=== PATIENT | male | born 1940 | race Caucasian/White ===

== ENCOUNTER → 2017-09-14 21:59 | Outpatient (CLI) | payer MEDICARE, OTHER, SELFPAY | PROVIDERS: Family Provider Family Medicine; PCP Family Medicine; Visit Provider Nurse Practitioner Family | DX: G47.10 Hypersomnia, unspecified (principal); I25.10 Atherosclerotic heart disease of native coronary artery without angina pectoris; R06.09 Other forms of dyspnea; E78.5 Hyperlipidemia, unspecified; I10 Essential (primary) hypertension; R07.89 Other chest pain | CPT/HCPCS: 95810 ==

== ENCOUNTER → 2017-09-19 06:41 | Outpatient (CLI) | payer MEDICARE, OTHER, SELFPAY ==
--- NOTE | 2017-09-19 06:45 | ECHOD_ITS ---
Reason For Study: DYSPNEA Procedure This was a 2D Doppler, Color Flow transthoracic echocardiogram. The exam was of poor technical quality due to diminished acoustic windows. The study was technically difficult. Contrast injection was performed. Exam performed in department. Left Ventricle Normal LV size. Left ventricular systolic function is normal. The estimated ejection fraction is 65 %. No regional wall motion abnormalities noted. Right Ventricle Normal RV size. Normal systolic function. Atria The left atrium is mildly enlarged. The right atrium is mildly enlarged. No doppler evidence for ASD. Mitral Valve There is no mitral annular calcification. Normal mitral valve. Trivial mitral valve insufficiency. Tricuspid Valve Normal tricuspid valve. Mild tricuspid valve insufficiency. Right ventricular systolic pressure estimated to be 44 mmHg. Aortic Valve Trisinus/trileaflet aortic valve. Mild diffuse aortic valve thickening. Mild focal aortic valve calcification. Pulmonic Valve The pulmonic valve is not well visualized. Trivial pulmonic valve insufficiency. Great Vessels Normal sized aortic root. Pericardium/Pleural No pericardial effusion. Medication Diluted definity 2ml given slow IV push to enhance endocardial definition. MMode/2D Measurements & Calculations LVIDd: 4.2 cm IVSd: 1.1 cm Ao root diam: 3.2 cm LVIDs: 3.2 cm LVPWd: 1.3 cm RVDd: 4.2 cm FS: 25.2 % LAV(MOD-bp): 59.6 ml EDV(MOD-sp4): 87.6 ml EDV(MOD-sp2): 102.0 ml LAV(MOD-bp) Indexed: 26.7 ml/m2 ESV(MOD-sp4): 23.7 ml EF(MOD-sp2): 74.7 % LAV(MOD-sp2): 67.8 ml EF(MOD-sp4): 72.9 % LAV(MOD-sp4): 51.2 ml SV(MOD-sp4): 63.8 ml SV(MOD-sp2): 76.2 ml LA A4 area: 18.8 cm2 RA A4 area: 20.6 cm2 Doppler Measurements & Calculations MV E max eduardo: 77.1 cm/sec Lat Peak E' Eduardo: 8.7 cm/sec Med Peak E' Eduardo: 6.7 cm/sec MV A max eduardo: 87.7 cm/sec E/E' lat: 8.8 E/E' med: 11.5 MV E/A: 0.88 Ao V2 max: 133.0 cm/sec LV V1 max: 119.4 cm/sec TR max eduardo: 319.7 cm/sec Ao max P.1 mmHg LV V1 max P.7 mmHg TR max P.9 mmHg Interpretation Summary The study was technically difficult. Contrast injection was performed. Left ventricular systolic function is normal. The estimated ejection fraction is 65 %. The left atrium is mildly enlarged. The right atrium is mildly enlarged. Trivial mitral valve insufficiency. Mild tricuspid valve insufficiency. Mild diffuse aortic valve thickening. Mild focal aortic valve calcification. Trivial pulmonic valve insufficiency. Right ventricular systolic pressure estimated to be 44 mmHg. Evidence for diastolic dysfunction. Ordering Physician: Cale Keys Referring Physician: GEORGE SONG Performed By: Katelin Degroot RDCS, RVT
--- NOTE | 2017-09-19 12:23 | STRESSREP ---
Stress Test Report Date: 09/19/2017 Procedure: Exercise tolerance test/imaging study Indications: Dyspnea Consent: Per the patient Procedure: The patient exercised on a Erik protocol for 5 minutes and 15 seconds completing Stage I and 2 minutes and 15 seconds of Stage II achieving a peak heart rate of 142 bpm (98 % predicted maximal heart rate) with a peak blood pressure 188/P mmHg and a peak MET capacity of 7 METs. The baseline ECG demonstrated normal sinus rhythm. The peak exercise ECG demonstrated no obvious ECG changes. There was a rare PVC during recovery. The functional capacity was considered average. There was no complaint of chest discomfort during exercise or recovery. The examination was discontinued secondary to dyspnea and lightheadedness. Impression: 1. Technically adequate (percent predicted maximal heart rate greater than 85%) exercise tolerance test 2. Peak exercise ECG with no obvious ECG changes 3. There was a rare PVC during recovery. 4. Nuclear images pending Myocardial perfusion imaging study: Technique: The patient was injected with 14.2 mCi of technetium 99m Cardiolite and subsequently rest SPECT Cardiolite nuclear imaging was obtained in the horizontal long, vertical long, and short axis views. The patient exercised on a Erik protocol for 5 minutes and 15 seconds completing Stage I and 2 minutes and 15 seconds of Stage II achieving a peak heart rate of 142 bpm (98 % predicted maximal heart rate) with a peak blood pressure 188/P mmHg and a peak MET capacity of 7 METs. The patient was injected with 44.8 mCi of technetium 99m Cardiolite and subsequently stress SPECT Cardiolite nuclear imaging was obtained in the horizontal long, vertical long, and short axis views. A gated Cardiolite study at peak stress was obtained. Interpretation: Rest and stress SPECT Cardiolite nuclear imaging status post realignment, normalization, and attenuation correction, demonstrates the appearance of relative uniform tracer uptake and myocardial perfusion appearing within normal limits. There is end systolic thickening and brightening. The gated Cardiolite study demonstrates myocardial thickening and inward wall motion. The reported LVEF is 72 %. Impression: 1. Rest and stress SPECT Cardiolite nuclear imaging demonstrate relative uniform tracer uptake and myocardial perfusion appearing within normal limits. 2. The gated Cardiolite study reports an LVEF of 72%. This note was generated with [employer] software. It may contain incorrect words, spelling, and punctuation that were not noted in checking the note before signing.
--- NOTE | 2017-09-19 12:28 | STRESSREP_ITS ---
Stress Test Report Date: 09/19/2017 Procedure: Exercise tolerance test/imaging study Indications: Dyspnea Consent: Per the patient Procedure: The patient exercised on a Erik protocol for 5 minutes and 15 seconds completing Stage I and 2 minutes and 15 seconds of Stage II achieving a peak heart rate of 142 bpm (98 % predicted maximal heart rate) with a peak blood pressure 188/P mmHg and a peak MET capacity of 7 METs. The baseline ECG demonstrated normal sinus rhythm. The peak exercise ECG demonstrated no obvious ECG changes. There was a rare PVC during recovery. The functional capacity was considered average. There was no complaint of chest discomfort during exercise or recovery. The examination was discontinued secondary to dyspnea and lightheadedness. Impression: 1. Technically adequate (percent predicted maximal heart rate greater than 85% ) exercise tolerance test 2. Peak exercise ECG with no obvious ECG changes 3. There was a rare PVC during recovery. 4. Nuclear images pending Myocardial perfusion imaging study: Technique: The patient was injected with 14.2 mCi of technetium 99m Cardiolite and subsequently rest SPECT Cardiolite nuclear imaging was obtained in the horizontal long, vertical long, and short axis views. The patient exercised on a Erik protocol for 5 minutes and 15 seconds completing Stage I and 2 minutes and 15 seconds of Stage II achieving a peak heart rate of 142 bpm (98 % predicted maximal heart rate) with a peak blood pressure 188/P mmHg and a peak MET capacity of 7 METs. The patient was injected with 44.8 mCi of technetium 99m Cardiolite and subsequently stress SPECT Cardiolite nuclear imaging was obtained in the horizontal long, vertical long, and short axis views. A gated Cardiolite study at peak stress was obtained. Interpretation: Rest and stress SPECT Cardiolite nuclear imaging status post realignment, normalization, and attenuation correction, demonstrates the appearance of relative uniform tracer uptake and myocardial perfusion appearing within normal limits. There is end systolic thickening and brightening. The gated Cardiolite study demonstrates myocardial thickening and inward wall motion. The reported LVEF is 72 %. Impression: 1. Rest and stress SPECT Cardiolite nuclear imaging demonstrate relative uniform tracer uptake and myocardial perfusion appearing within normal limits. 2. The gated Cardiolite study reports an LVEF of 72%. This note was generated with [employer] software. It may contain incorrect words, spelling, and punctuation that were not noted in checking the note before signing.
== END ==
PROVIDERS: Family Provider Family Medicine; PCP Family Medicine; Visit Provider Nurse Practitioner Family
DX: I25.10 Atherosclerotic heart disease of native coronary artery without angina pectoris (principal); R06.09 Other forms of dyspnea; E78.5 Hyperlipidemia, unspecified; I10 Essential (primary) hypertension; R07.89 Other chest pain
CPT/HCPCS: 78452; 93017; 93306; A9500; Q9957; A4216; C8929

== ENCOUNTER → 2017-10-10 23:52 | Outpatient (CLI) | payer MEDICARE, OTHER, SELFPAY | PROVIDERS: Family Provider Family Medicine; PCP Family Medicine; Visit Provider Nurse Practitioner Acute Care | DX: G47.33 Obstructive sleep apnea (adult) (pediatric) (principal) | CPT/HCPCS: 95811 ==

== ENCOUNTER → 2017-11-06 08:55 | Outpatient (CLI) | payer MEDICARE, OTHER, SELFPAY ==
--- NOTE | 2017-11-06 09:23 | RAD_ITS ---
PROCEDURE: Fluoroscopic guided Hip Injection DATE: November 06, 2017. INDICATION: Male, 77 years old. Chronic hip pain. PHYSICIAN: Cb Vaughn M.D. MEDICATIONS: 80 mg of Kenalog and 3 cc of 0.5% Marcaine. 2% Lidocaine administered subcutaneously for local anesthesia. ACCESS SITE: Right hip. NEEDLE: 22-gauge spinal needle. FLUOROSCOPY TIME (if supplied): (30 seconds) minutes/seconds FINDINGS: The risks, benefits, and alternatives to the procedure were explained to the patient. The specific risks of bleeding, infection, and neurovascular injury were detailed and accepted. Witnessed informed consent was obtained. A 22-gauge spinal needle was positioned under radiographic fluoroscopic localization. Approximately 2 cc of azygos 300 instilled for localization purposes. Medication was then injected. The patient tolerated the procedure well without any immediate complications. The patient was placed supine with head elevated and returned to the floor in stable condition. RAD/Inj/Asp Balta Jt Should/Hip/Knee IMPRESSION: 1. Successful fluoroscopic guided hip injection. Electronically Signed: Cb Vaughn MD at 11:05 EDT Tel [phone], Service support ,
--- NOTE | 2017-11-06 09:44 | RAD_ITS ---
PROCEDURE: Fluoroscopic guided Hip Injection DATE: November 06, 2017. INDICATION: Male, 77 years old. Chronic hip pain. PHYSICIAN: Cb Vaughn M.D. MEDICATIONS: 80 mg of Kenalog and 3 cc of 0.5% Marcaine. 2% Lidocaine administered subcutaneously for local anesthesia. ACCESS SITE: Left hip. NEEDLE: 22-gauge spinal needle. FLUOROSCOPY TIME (if supplied): (25 seconds) minutes/seconds FINDINGS: The risks, benefits, and alternatives to the procedure were explained to the patient. The specific risks of bleeding, infection, and neurovascular injury were detailed and accepted. Witnessed informed consent was obtained. A 22-gauge spinal needle was positioned under radiographic fluoroscopic localization. Approximately 2 cc of Isovue-300 instilled for localization purposes. Medication was then injected. The patient tolerated the procedure well without any immediate complications. The patient was placed supine with head elevated and returned to the floor in stable condition. RAD/Inj/Asp Balta Jt Should/Hip/Knee IMPRESSION: 1. Successful fluoroscopic guided hip injection. Electronically Signed: Cb Vaughn MD at 10:59 EDT Tel [phone], Service support ,
== END ==
PROVIDERS: Family Provider Family Medicine; PCP Family Medicine; Visit Provider Orthopaedic Surgery
DX: M25.552 Pain in left hip (principal); M16.0 Bilateral primary osteoarthritis of hip
CPT/HCPCS: 20610; 77002; Q9967

== ENCOUNTER → 2017-11-25 08:47 | Outpatient (CLI) | payer MEDICARE, OTHER, SELFPAY ==
[2017-11-25 10:13] LABS: AST(SGOT) 19 U/L (15-37); Alanine Aminotransfer ALT/SGPT 41 U/L (16-61); Albumin, Serum 3.5 g/dL (3.2-5.0); Alkaline Phosphatase 93 U/L (45-117); Bilirubin, Direct 0.22 mg/dL (0.00-0.30); Cholesterol 151 mg/dL (200); Globulin 4.1 g/dL (2.2-4.2); High Density Lipoprotein 61 mg/dL; Protein, Total 7.6 g/dL (6.4-8.2); Triglycerides 102 mg/dL; Very Low Density Lipoprotein 20 mg/dL (5-40)
== END ==
PROVIDERS: Family Provider Family Medicine; PCP Family Medicine; Visit Provider Nurse Practitioner Family
DX: E78.5 Hyperlipidemia, unspecified (principal); Z79.899 Other long term (current) drug therapy
CPT/HCPCS: 36415; 80061; 80076

== ENCOUNTER → 2017-11-29 15:05 | Outpatient (CLI) | payer MEDICARE, OTHER, SELFPAY ==
--- NOTE | 2017-11-29 15:12 | RAD_ITS ---
STUDY: X-RAY CHEST REASON FOR EXAM: Male, 77 years old. Shortness of breath with cough TECHNIQUE: PA and lateral views of the chest. COMPARISON: 09/19/2014 FINDINGS: The lungs are clear and expanded. There is no demonstrated pleural abnormality. Normal size heart. Normal mediastinum and luke. Normal visualized pulmonary arteries. Normal visualized aortic arch and descending thoracic aorta. Normal visualized thoracic spine. Normal visualized ribs, clavicles, and shoulders. There is no demonstrated abnormality of the visualized soft tissue structures of the upper abdomen. RAD/Chest PA and Lateral IMPRESSION: Normal x-ray examination of the chest. Electronically Signed: Talon Betts MD at 15:52 EDT , Service support ,
== END ==
PROVIDERS: Family Provider Family Medicine; PCP Family Medicine; Visit Provider Physician Assistant Medical
DX: R09.89 Other specified symptoms and signs involving the circulatory and respiratory systems (principal)
CPT/HCPCS: 71046

== ENCOUNTER → 2017-12-08 08:37 | Outpatient (CLI) | payer MEDICARE, OTHER, SELFPAY ==
--- NOTE | 2017-12-08 08:39 | CDU_ITS ---
Reason For Study: Vertigo Rt. Velocities/BP Lt. Velocities/BP Prox CCA 114/16 cm/sec. Prox CCA 127/17 cm/sec. Mid CCA 111/16 cm/sec. Mid CCA 97/15 cm/sec. Dist CCA 94/21 cm/sec. Dist CCA 82/17 cm/sec. Prox ICA 86/15 cm/sec. Prox ICA 78/16 cm/sec. Mid ICA 82/21 cm/sec. Mid ICA 64/19 cm/sec. Dist ICA 72/19 cm/sec. Dist ICA 74/20 cm/sec. Rt. ICA/CCA = 0.77. Lt. ICA/CCA = 0.80. Prox ECA 96/9 cm/sec. Prox ECA 135/11 cm/sec. Rt. Vert. 25/0 cm/sec. Lt. Vert. 50/16 cm/sec. Right Extracranial There is intimal thickening but no significant atherosclerotic plaque noted in the right common carotid artery. There is no significant atherosclerotic plaque noted in the right internal carotid artery. There is no significant atherosclerotic plaque noted in the right external carotid artery. Antegrade flow is noted in the right vertebral artery. Left Extracranial There is intimal thickening but no significant atherosclerotic plaque noted in the left common carotid artery. There is heterogeneous, irregular atherosclerotic plaque noted in the left internal carotid artery. There is no significant atherosclerotic plaque noted in the left external carotid artery. Antegrade flow is noted in the left vertebral artery. Procedure Carotid Duplex [id number]. Exam performed in department. Interpretation Summary No significant atherosclerotic plaque or stenosis noted in the right internal carotid artery. Mild (<50%) stenosis left extracranial internal carotid. Flow within the vertebral arteries is antegrade bilaterally. Ordering Physician: Mallorie Santos Referring Physician: Harvinder Vaughan Performed By: Yesenia Keys, JJ, RVT
== END ==
PROVIDERS: Family Provider Family Medicine; PCP Family Medicine; Visit Provider Physician Assistant Medical
DX: R42 Dizziness and giddiness (principal)
CPT/HCPCS: 93880

== ENCOUNTER → 2017-12-26 08:46 | Outpatient (CLI) | payer MEDICARE, OTHER, SELFPAY ==
--- NOTE | 2017-12-26 21:06 | PCM.TILTTABL ---
- Staff Staff: Rina Ramesh, - - Fabienne Rush - Summary Pre Test Resting HR: 66 - Alert and oriented: Warm and dry Pre Test Resting BP: 168/81 - Alert and oriented: Warm and dry Minimum Test HR: 54 - Unresponsive: Pale and clammy Maximum Test HR: 100 - Alert and oriented: Warm and dry Minimum Test BP: 102/57 - Unresponsive: Pale and clammy Maximum Test BP: 193/87 - Alert and oriented: Warm and dry Reason for Test Termination: Syncope Physician Tilt Table Report - Patient's Physicians Primary Care Physician: Harvinder Vaughan Packaging Sales: Flip Kramer Indications/Diagnosis: Dizziness/lightheadedness Procedure Comments: The patient presented to the tilt table laboratory. He was alert and oriented and warm and dry. The baseline heart rate was 66 bpm with a baseline blood pressure 168/81 mmHg. The cardiac rhythm was sinus rhythm. The patient was placed in the 70? upright tilt table position where he remained for approximately 12 minutes. The patient was initially alert and oriented and warm and dry and subsequently became pale, clammy, and unresponsive. The patient was noted to have a heart rate decreased to 54 bpm with a blood pressure decreased to 102/57 mmHg. The cardiac rhythm remained sinus rhythm with an isolated PVC. The patient was returned to the supine position. In the supine position the patient became alert and oriented and eventually warm and dry. The concluding heart rate was 69 bpm with a concluding blood pressure 160/79 mmHg. The patient remained in sinus rhythm. The patient returned to baseline and was subsequently released from the tilt table laboratory. Summary: 70? upright tilt table study considered positive for reproducible vasovagal/neurocardiogenic (combined cardioinhibitory and vasodepressor) syncope. This note was generated with [employer] software. It may contain incorrect words, spelling, and punctuation that were not noted in checking the note before signing.
[2017-12-26 21:13] VITALS: BP 102/57; BP 168/81; BP 193/87
--- NOTE | 2017-12-26 21:13 | TILTTABLE_ITS ---
- Staff Staff: Rina Ramesh, - - Fabienne Rush - Summary Pre Test Resting HR: 66 - Alert and oriented: Warm and dry Pre Test Resting BP: 168/81 - Alert and oriented: Warm and dry Minimum Test HR: 54 - Unresponsive: Pale and clammy Maximum Test HR: 100 - Alert and oriented: Warm and dry Minimum Test BP: 102/57 - Unresponsive: Pale and clammy Maximum Test BP: 193/87 - Alert and oriented: Warm and dry Reason for Test Termination: Syncope Physician Tilt Table Report - Patient's Physicians Primary Care Physician: Harvinder Vaughan Lead Manufacturing Engineer: Flip Kramer Indications/Diagnosis: Dizziness/lightheadedness Procedure Comments: The patient presented to the tilt table laboratory. He was alert and oriented and warm and dry. The baseline heart rate was 66 bpm with a baseline blood pressure 168/81 mmHg. The cardiac rhythm was sinus rhythm. The patient was placed in the 70? upright tilt table position where he remained for approximately 12 minutes. The patient was initially alert and oriented and warm and dry and subsequently became pale, clammy, and unresponsive. The patient was noted to have a heart rate decreased to 54 bpm with a blood pressure decreased to 102/57 mmHg. The cardiac rhythm remained sinus rhythm with an isolated PVC. The patient was returned to the supine position. In the supine position the patient became alert and oriented and eventually warm and dry. The concluding heart rate was 69 bpm with a concluding blood pressure 160/79 mmHg. The patient remained in sinus rhythm. The patient returned to baseline and was subsequently released from the tilt table laboratory. Summary: 70? upright tilt table study considered positive for reproducible vasovagal/ neurocardiogenic (combined cardioinhibitory and vasodepressor) syncope. This note was generated with [employer]ation software. It may contain incorrect words, spelling, and punctuation that were not noted in checking the note before signing.
== END ==
PROVIDERS: Family Provider Family Medicine; PCP Family Medicine; Visit Provider Physician Assistant Medical
DX: R42 Dizziness and giddiness (principal)
CPT/HCPCS: 93660; J7030; A4216

== ENCOUNTER 2018-02-23 12:38 | Emergency (ER) | payer MEDICARE, OTHER, SELFPAY ==
[2018-02-23 12:39] VITALS: BP 179/73; PULSE 77; RESP 18; TEMP 36.5; O2SAT 98; BMI 28.3
--- NOTE | 2018-02-23 13:04 | RAD_ITS ---
STUDY: X-RAY CHEST REASON FOR EXAM: Male, 77 years old. CP that radiates between shoulder blades. Also c/o neck pain and left side pain. states has sinus congestion as well TECHNIQUE: Single AP portable view of the chest. COMPARISON: None. FINDINGS: The lungs are clear and expanded. There is no demonstrated pleural abnormality. Normal size heart. Normal mediastinum and luke. Normal visualized pulmonary arteries. Normal visualized aortic arch and descending thoracic aorta. There is a dextroscoliosis of the thoracic spine. There is degenerative osteoarthritis of the bilateral shoulders. There is no demonstrated abnormality of the visualized soft tissue structures of the upper abdomen. RAD/Chest 1 View (Portable) IMPRESSION: Degenerative changes, as described above. No demonstrated acute cardiopulmonary process. Electronically Signed: Kay Oconnell MD at 13:37 EDT Tel , Service support ,
--- NOTE | 2018-02-23 13:04 | EKG12_ITS ---
Test Reason : CP Blood Pressure : / mmHG Vent. Rate : 076 BPM Atrial Rate : 076 BPM P-R Int : 160 ms QRS Dur : 092 ms QT Int : 382 ms P-R-T Axes : 054 -03 054 degrees QTc Int : 429 ms Normal sinus rhythm Nonspecific ST abnormality Abnormal ECG Confirmed by WALDEMAR FUNEZ, SHIRLEY ([id number]), associate entertainment editor VICKI MALDONADO ([id number]) on 02/26/2018 2:50:33 PM Referred By: Confirmed By:SHIRLEY MEDEIROS MD
[2018-02-23 13:14] LABS: Absolute Lymphocyte Count 2.04 X10^3/ul (0.83-4.51); Basophil# 0.03 X10^3/uL; Basophil% 0.2 % (0-1); Eosinophil# 0.07 X10^3/uL; Eosinophils% 0.6 % (0-5); Hematocrit 38.4 % (40-54); Hemoglobin 13.2 g/dl (13.0-16.5); Lymphocyte # 2.04 X10^3/ul (4.0); Lymphocyte % 16.2 % (19-41); Mean Corp Hgb Conc 34.4 g/gl (32-36); Mean Corpuscular Volume 93.2 fL (80-94); Mean Platelet Vol. 9.3 fl (6.2-12.0); Monocyte# 1.39 X10^3/uL; Neutrophil # 9.02 X10^3/uL (2.7-7.7); Neutrophil % 71.6 % (47-70); Platelet Count 418 K/mm3 (150-450); RBC Distribution Width CV 12.5 % (11.6-14.6); RBC Distribution Width SD 41.4 fl (35.1-43.9); Red Blood Count 4.12 M/mm3 (4.6-6.2); White Blood Count 12.6 K/mm3 (4.4-11.0)
[2018-02-23 13:15] LABS: POSITIVE COUNT NO; POSITIVE DIFFERENTIAL NO; POSITIVE MORPHOLOGY NO
[2018-02-23] MEDS: Aspirin 81 MG TAB.CHEW 324 MG PO (13:18)
[2018-02-23 13:26] LABS: Anion Gap 8 (5-15); BUN 15 mg/dL (7-18); BUN/Creat Ratio 13.3 RATIO (10-20); Chloride 101 mmol/L (98-107); Creatinine, Serum 1.13 mg/dL (0.70-1.30); EST Glomerular Filtration Rate 67 mL/min (>60); Est Glom Filt Rate - Afr Amer 81 mL/min (>60); Estimated Creatinine Clearance 62.85 ml/min; Glucose 124 mg/dL (74-106); Potassium 3.5 mmol/L (3.5-5.1); Sodium Level 136 mmol/L (136-145)
[2018-02-23 13:38] VITALS: BP 141/72; PULSE 57; RESP 14; O2SAT 98
[2018-02-23 13:56] LABS: D-Dimer Quantitative (DVT/PE) 0.43 FEU/ug/m (0.27-0.49)
--- NOTE | 2018-02-23 14:30 | ED.DCSUM_ITS ---
- ER Visit Summary Date of Service: 02/23/18 Chief Complaint: Chest pain History of Present Illness: The patient is a 77 M history of prior coronary disease one cardiac stent. Hypertension and high cholesterol. Patient states he had a stress test earlier this year which was negative. States last 2-3 days he had constant pain in his chest. Also on his back. Denies any nausea or vomiting. No diarrhea or fever. No prior DVT. He has had a recent travel he and his took a trip on a train. Denies any hemoptysis. No history of DVT or PE. Currently is not on any blood thinners. He denies currently any calf pain. Physical Examination: Male no acute distress. Vital signs are stable afebrile. Signs of hypoxia. H EENT exam unremarkable. Neck nontender. Lungs clear to auscultation bilaterally. Heart regular rate and rhythm no murmur. Chest wall nontender. Abdomen soft nontender. Normal bowel sounds no signs. No pulsatile mass. He is moving all 4 extremities. They are neurovascularly intact. He is equal symmetrical radial pulses. Calves are nontender without edema nor cords. Neurologically is awake alert without focal deficits. Test Results: CBC normal except for white count 12.6. Normal hemoglobin. Lites was unremarkable. Normal gap of a creatinine 1.1. Troponin normal. D-dimer normal. EKG sinus rhythm rate of 76 no acute abnormality no change from September 2014. Chest x-ray shows no acute abnormality normal cardiac silhouette and mediastinum. No signs of a dissection. Emergency Department Course and Treatment: Repeat exam of the patient is are in the room. He is doing well. Both are comfortable with him being discharged to home. Currently he is on an antibiotic and steroids dry which is probably viral and may be causing him the symptoms. Treatment Plan: Discharge and stop the antibiotic and steroids. Disposition: Discharge Impression: Table chest pain of uncertain etiology. Status post viral URI This note was generated with [employer] dictation software. It may contain incorrect words, spelling, and punctuation that were not noted in review of the chart prior to signing ED Disposition - Plan for ED Patient: Chief Complaint: Chest Pain Referrals: Harvinder Vaughan MD [Primary Care Provider] -
--- NOTE | 2018-02-23 14:30 | ED.DEP ---
ED Disposition - Plan for ED Patient: Disposition: Home or Assisted Living Chief Complaint: Chest Pain Instructions: ED Chest Pain Atypical Unkn Cause Referrals: Harvinder Vaughan MD [Primary Care Provider] - As Needed Additional Instructions: Your symptoms may be from the medications they put drawn for your respiratory infection. I think this is more likely a viral infection. You have no signs of pneumonia. I would stop the antibiotic and the prednisone. Talk to your doctor as needed.
[2018-02-23 14:33] VITALS: BP 158/80; PULSE 58; RESP 16; O2SAT 99
== END 2018-02-23 14:39 | disposition home or self-care (01) ==
PROVIDERS: Emergency Provider Emergency Medicine; Family Provider Family Medicine; PCP Family Medicine
DX: R07.9 Chest pain, unspecified (principal); I10 Essential (primary) hypertension; E78.00 Pure hypercholesterolemia, unspecified; I25.10 Atherosclerotic heart disease of native coronary artery without angina pectoris
CPT/HCPCS: 71045; 80048; 84484; 85025; 85379; 93005; 99284; A4216

== ENCOUNTER → 2018-03-22 08:45 | Outpatient (CLI) | payer MEDICARE, OTHER, SELFPAY ==
--- NOTE | 2018-03-22 08:55 | RAD_ITS ---
STUDY: AIR-CONTRAST UPPER GI SERIES WITH SMALL BOWEL FOLLOW-THROUGH EXAMINATION. REASON FOR EXAM: Male, 77 years old. Dysphasia. Nausea and abdominal bloating. FLUOROSCOPY TIME (if supplied): (2:00) minutes/seconds. 29 images were obtained. TECHNIQUE: The patient ingested barium. Multiple images of the esophagus, stomach and duodenum were obtained. COMPARISON: None. FINDINGS: There is a small diverticulum of the midportion of the esophagus most likely representing a traction diverticulum. There is a small sliding hiatal hernia with gastroesophageal reflux. The stomach and duodenum are unremarkable. There is no evidence of ulceration. No mass lesion is seen. A small bowel follow-through examination was obtained. The transit time is normal. The terminal ileum is unremarkable. RAD/Upper GI/w Small Bowel IMPRESSION: Small sliding hiatal hernia with gastroesophageal reflux. 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 Electronically Signed: Cb Vaughn MD at 15:36 EDT Tel [phone], Service support ,
== END ==
PROVIDERS: Family Provider Family Medicine; PCP Family Medicine; Referring Provider Nurse Practitioner Family; Visit Provider Nurse Practitioner Family
DX: R11.0 Nausea (principal); R14.0 Abdominal distension (gaseous)
CPT/HCPCS: 74249

== ENCOUNTER → 2018-06-25 13:55 | Outpatient (CLI) | payer MEDICARE, OTHER, SELFPAY ==
[2018-06-25 13:07] VITALS: BMI 28.8
[2018-06-25 14:30] LABS: Absolute Lymphocyte Count 1.43 X10^3/ul (0.83-4.51); Absolute Neutrophil Count 5.1 X10^3/uL (2.0-7.7); Basophil# 0.06 X10^3/uL; Basophil% 0.8 % (0-1); Eosinophil# 0.17 X10^3/uL; Eosinophils% 2.3 % (0-5); Hematocrit 39.5 % (40-54); Hemoglobin 12.8 g/dl (13.0-16.5); Lymphocyte # 1.43 X10^3/ul (4.0); Lymphocyte % 19.2 % (19-41); Mean Corp Hgb Conc 32.4 g/gl (32-36); Mean Corpuscular Hgb 30.3 pg (27.0-32.0); Mean Corpuscular Volume 93.6 fL (80-94); Mean Platelet Vol. 10.2 fl (6.2-12.0); Monocyte% 9.4 % (0-10); Neutrophil # 5.09 X10^3/uL (2.7-7.7); Neutrophil % 68.2 % (47-70); Platelet Count 308 K/mm3 (150-450); RBC Distribution Width CV 13.2 % (11.6-14.6); RBC Distribution Width SD 45.1 fl (35.1-43.9); Red Blood Count 4.22 M/mm3 (4.6-6.2); White Blood Count 7.5 K/mm3 (4.4-11.0)
[2018-06-25 14:34] LABS: POSITIVE COUNT NO; POSITIVE DIFFERENTIAL NO; POSITIVE MORPHOLOGY NO
[2018-06-25 15:01] LABS: Ferritin 24 ng/mL (26-388); Iron 98 ug/dL (65-175); Iron Binding Capacity,Total 329 ug/dL (250-450)
[2018-06-25 15:20] LABS: Vitamin B12 890 pg/mL (211-911)
[2018-06-28 07:58] LABS: Vitamin D 1,25-Dihydroxy 37.2 pg/mL (19.9-79.3)
== END ==
PROVIDERS: Family Provider Family Medicine; PCP Family Medicine; Visit Provider Nurse Practitioner Acute Care
DX: R06.02 Shortness of breath (principal); R53.83 Other fatigue; E11.9 Type 2 diabetes mellitus without complications
CPT/HCPCS: 82607; 82652; 82728; 83540; 83550; 85025

== ENCOUNTER 2019-11-12 12:59 | Emergency (ER) | payer MEDICARE, OTHER, SELFPAY ==
[2019-09-18 13:52] VITALS: BMI 28.8
[2019-11-12 13:00] VITALS: BP 163/67; PULSE 57; RESP 16; TEMP 36.6; O2SAT 100; BMI 28.8
--- NOTE | 2019-11-12 14:12 | CT_ITS ---
STUDY: CT BRAIN WITHOUT CONTRAST REASON FOR EXAM: Male, 79 years old. NEAR SYNCOPAL EPISODE TODAY RADIATION DOSAGE (If Supplied By Facility): CTDIvol = ( 60.81 ) mGy, DLP = ( 1112.69 ) mGycm TECHNIQUE: Transaxial CT imaging of the brain was performed without administration of intravenous contrast material. Individualized dose optimization techniques were used for this CT. COMPARISON: No relevant priors. FINDINGS: Normal soft tissue structures. Normal calvarium. Normal size ventricles and extra-axial spaces for the patient''s age. Normal white matter tracts of the cerebral hemispheres. Normal basal ganglia and thalami. Normal brainstem. Normal cerebellum. There is no intracranial hemorrhage. There are no findings of an acute ischemic infarction. Normal visualized paranasal sinuses. CT/Brain/Head without Contrast IMPRESSION: Normal unenhanced CT scan of the brain. Electronically Signed: Eze Oviedo MD at 15:25 EDT Tel , Service support ,
--- NOTE | 2019-11-12 14:12 | EKG12_ITS ---
Test Reason : Blood Pressure : / mmHG Vent. Rate : 049 BPM Atrial Rate : 049 BPM P-R Int : 180 ms QRS Dur : 092 ms QT Int : 466 ms P-R-T Axes : 059 -01 041 degrees QTc Int : 420 ms Sinus bradycardia Otherwise normal ECG Confirmed by SHELDON PEÑA ([id number]), assistant film editor NARAYAN ERAZO ([id number]) on 11/19/2019 8:06:26 AM Referred By: COLLETTE Confirmed By:SHELDON PEÑA
[2019-11-12 14:13] VITALS: BP 120/64; BP 137/66; BP 140/66; PULSE 50; PULSE 52; PULSE 57; RESP 16; O2SAT 96
--- NOTE | 2019-11-12 14:16 | ED.DCSUM_ITS ---
- ER Visit Summary Date of Service: 11/12/19 Chief Complaint: Near syncope History of Present Illness: The patient is a 79 M who presents with near syncopal episodes that occurred today. Patient states he was welding in his garage and he started to feel lightheaded. Patient states that he sat on a stool and started to feel better. Patient states he went back to welding. Patient states he felt lightheaded again. Patient states he sat on his stool again but was not improving. Patient states his vision went white. Patient's states that he was having difficulty speaking when he came into the house. Patient admits to some fatigue over the past couple days. Patient admits to some generalized weakness. Patient also admits to some shortness of breath and cough with some white and yellow sputum production. Patient denies any recent fevers. Patient states he also has a history of vasovagal syncope. Physical Examination: Vital signs are stable. Patient is afebrile. Patient is in no acute distress. Oral mucosa is pink and moist. Neck is supple. Trachea is midline. There is no JVD. Heart was regular rate and rhythm. Lungs are clear and equal bilaterally. Abdomen is soft. Bowel sounds are normal. There is no tenderness. Cranial nerves II through XII are intact. There are no focal motor or sensory deficits. Extremities are intact. There is no calf tenderness or edema. Test Results: EKG showed sinus bradycardia with a rate of 49. There are no acute ST or T wave changes. Portable chest x-ray was obtained. There is no acute cardiopulmonary process. CT scan of the brain was obtained. There is no acute intracranial abnormality. These were interpreted by the radiologist and reviewed by myself. CBC, comprehensive metabolic profile, urinalysis, and troponin were obtained were all within normal limits. Emergency Department Course and Treatment: Patient was given IV fluids here. Patient was feeling better on reevaluation. Patient was instructed to get plenty of rest. Patient was instructed to follow-up with his primary care physician in 5 to 7 days. Patient understood and was agreeable with the plan. All questions were answered. Disposition: Discharge home Impression: Near syncope This note was generated with [employer] software. It may contain incorrect words, spelling, and punctuation that were not noted in review of the chart prior to signing ED Disposition - Plan for ED Patient: Disposition: Home or Assisted Living Diagnosis: Near syncope Instructions: ED Near-Fainting Uncertain Cause Referrals: Harvinder Vaughan MD [Primary Care Provider] - 5-7 Days
[2019-11-12 14:36] LABS: Bacteria 0 SEEN /hpf (None Seen); Mucous, Urine 0 SEEN /hpf (<or=2+); Red Blood Cells-Urine 0 SEEN /hpf (0-5); Squamous Epithelial Cells - UA 0 SEEN /hpf (0-5); White Blood Cells 0 SEEN /hpf (0-5)
[2019-11-12 14:38] LABS: Color, Urine Yellow (Yellow); Glucose, Dipstick Normal (Normal); Ketone-Dipstick Negative (Negative); Leukocyte Esterase-Dipstick Negative /ul (Negative); Nitrite-Dipstick Negative (Negative); Occult Blood-Urine Negative /ul (Negative); Protein-Dipstick Negative (Negative); Specific Gravity, Urine 1.005 (1.002-1.030); Urine Bilirubin Dipstick Negative (Negative); Urine Clarity Sl. Cloudy (Clear); Urine Urobilinogen Normal (Normal); Urine pH 6.5 (5.0 - 8.0)
[2019-11-12 14:40] LABS: Absolute Lymphocyte Count 1.09 X10^3/uL (0.83-4.51); Absolute Neutrophil Count 6.9 X10^3/uL (2.0-7.7); Basophil% 1.1 % (0-1); Eosinophil# 0.18 X10^3/uL; Eosinophils% 1.9 % (0-5); Hematocrit 40.8 % (40-54); Hemoglobin 13.4 g/dL (13.0-16.5); Lymphocyte # 1.09 X10^3/ul (4.0); Lymphocyte % 11.8 % (19-41); Mean Corp Hgb Conc 32.8 g/dL (32-36); Mean Corpuscular Hgb 31.3 pg (27.0-32.0); Mean Corpuscular Volume 95.3 fL (80-94); Monocyte# 0.91 X10^3/uL; Monocyte% 9.8 % (0-10); NRBC Flagged by Analyzer 0 % (0-5); Neutrophil # 6.93 X10^3/uL (2.7-7.7); Platelet Count 324 K/mm3 (150-450); RBC Distribution Width CV 12.8 % (11.6-14.6); RBC Distribution Width SD 44.6 fl (35.1-43.9); Red Blood Count 4.28 M/mm3 (4.6-6.2); White Blood Count 9.3 K/mm3 (4.4-11.0)
[2019-11-12 14:54] LABS: ALB/GLOB Ratio 0.8 RATIO (0.9-2.4); AST(SGOT) 17 U/L (15-37); Alanine Aminotransfer ALT/SGPT 29 U/L (16-61); Albumin, Serum 3.4 g/dL (3.2-5.0); Alkaline Phosphatase 118 U/L (45-117); Anion Gap 5 (5-15); BUN 19 mg/dL (7-18); BUN/Creat Ratio 15.8 RATIO (10-20); Calcium,Total 9.1 mg/dL (8.5-10.1); Chloride 106 mmol/L (98-107); EST Glomerular Filtration Rate 62 mL/min (>60); Est Glom Filt Rate - Afr Amer 75 mL/min (>60); Estimated Creatinine Clearance 57.34 ml/min; Glucose 73 mg/dL (74-106); Potassium 4.8 mmol/L (3.5-5.1); Protein, Total 7.4 g/dL (6.4-8.2); Sodium Level 139 mmol/L (136-145)
--- NOTE | 2019-11-12 15:10 | RAD_ITS ---
STUDY: X-RAY CHEST REASON FOR EXAM: Male, 79 years old. DIZZY, SYNCOPAL EVENT, SOB TECHNIQUE: Single AP portable view of the chest. COMPARISON: 02/23/2018 FINDINGS: The lungs are clear and expanded. There is no demonstrated pleural abnormality. Normal size heart. Normal mediastinum and luke. Normal visualized pulmonary arteries. Normal visualized aortic arch and descending thoracic aorta. Normal visualized thoracic spine. Normal visualized ribs, clavicles, and shoulders. There is no demonstrated abnormality of the visualized soft tissue structures of the upper abdomen. RAD/Chest 1 View (Portable) IMPRESSION: Normal x-ray examination of the chest. Electronically Signed: Eze Oviedo MD at 15:24 EDT Tel , Service support ,
[2019-11-12] MEDS: 0.9% Normal Saline 1,000 ML 1000 ML IV (15:56)
[2019-11-12 16:11] VITALS: BP 140/64; PULSE 50; RESP 17; O2SAT 98
[2019-11-12 17:33] VITALS: BP 147/70; PULSE 48; RESP 16; O2SAT 99
== END 2019-11-12 17:35 | disposition home or self-care (01) ==
PROVIDERS: Emergency Provider Emergency Medicine; PCP Family Medicine
DX: R55 Syncope and collapse (principal); M54.2 Cervicalgia; R30.0 Dysuria; R51 Headache; R53.1 Weakness; R05 Cough; R06.00 Dyspnea, unspecified; J34.89 Other specified disorders of nose and nasal sinuses
CPT/HCPCS: 70450; 71045; 80053; 81001; 84484; 85025; 93005; 96360; 99285; J7030; A4216

== ENCOUNTER 2020-01-23 06:13 | Emergency (ER) | payer MEDICARE, OTHER, SELFPAY ==
[2019-11-15 08:30] VITALS: BMI 28.2
[2020-01-23 06:13] VITALS: BP 187/83; PULSE 67; RESP 18; TEMP 37.2; O2SAT 96; BMI 29.3
--- NOTE | 2020-01-23 06:43 | RAD_ITS ---
STUDY: X-RAY - PELVIS REASON FOR EXAM: Male, 79 years old. C/O RT HIP PAIN X SEVERAL DAYS -- NKI -- PATIENT STATES PAIN STARTED DAY AFTER HAVING A EAR ACHE AND SWOLLEN LYMPH NODE IN NECK TECHNIQUE: One view of the pelvis was obtained. COMPARISON: None. FINDINGS: There is a non-specific bowel gas pattern. There are multiple calcified phleboliths. Normal bilateral iliac wings, sacroiliac joints and visualized sacrum. Normal visualized bilateral superior and inferior pubic rami. There are degenerative changes of the pubic symphysis with articular narrowing and sclerosis. Normal ischial tuberosities. The patient is status post right total hip replacement. Normal visualized left femoral head. Normal left acetabulum. There is severe articular joint space narrowing of the left hip. RAD/Pelvis 1 or 2 Views IMPRESSION: Status post right hip replacement. Severe joint space narrowing of the left hip joint. Electronically Signed: Cb Vaughn, at 7:23 EDT , Service support ,
--- NOTE | 2020-01-23 06:43 | RAD_ITS ---
STUDY: X-RAY - RIGHT FEMUR REASON FOR STUDY: Right hip pain for several days, no specific injury. TECHNIQUE: 2 view(s) of the femur. COMPARISON: Radiograph of the pelvis obtained earlier the same day. FINDINGS: There is a right hip arthroplasty with mild periosteal reaction at the lateral aspect of the proximal femoral diaphysis. There is a small enthesophyte at the lesser trochanter. Normal visualized soft tissue structure. RAD/Femur Min 2 Views IMPRESSION: Right hip arthroplasty with mild periosteal reaction at the lateral aspect of the proximal femoral diaphysis. Electronically Signed: Ricarod Montemayor MD at 7:34 EDT Tel , Service support ,
[2020-01-23 06:53] LABS: Color, Urine Yellow (Yellow); Glucose, Dipstick Normal (Normal); Ketone-Dipstick Negative (Negative); Leukocyte Esterase-Dipstick Negative /ul (Negative); Mucous, Urine 0 SEEN /hpf (<or=2+); Nitrite-Dipstick Negative (Negative); Occult Blood-Urine Negative /ul (Negative); Protein-Dipstick Negative (Negative); Red Blood Cells-Urine 0 SEEN /hpf (0-5); Squamous Epithelial Cells - UA 0 SEEN /hpf (0-5); Urine Bilirubin Dipstick Negative (Negative); Urine Clarity Clear (Clear); Urine Urobilinogen Normal (Normal); White Blood Cells 0 SEEN /hpf (0-5)
[2020-01-23] MEDS: morphine 8 MG/ML Syringe 6 MG IM (06:58)
--- NOTE | 2020-01-23 06:58 | ED.VIS.GEN ---
History of Present Illness Chief Complaint: Lower Extremity Injury Informant: Patient Narrative: Patient is a 79-year-old male presenting with atraumatic right hip and lower back pain. Patient has a history of a right total hip arthroplasty as well as some chronic low back pain and sciatica. Patient states he has had pain for the past 4 days. It started when he was working in his garage as he is renovating an old truck. He does crawl around a lot when he is working on his truck. It started first in his knee area and then moved up to his right hip. The pain radiates into his groin is now going up into his back. Patient denies any associated numbness. He is limping when he walks because of pain. He denies any bowel or bladder incontinence. He notes he has been having some difficulty with urination over the past week. He has been having associated hesitancy and sometimes has dribbling without a strong stream. He does have a history of BPH and is on Flomax for this. He currently denies any abdominal pain. He denies any vomiting or diarrhea. He denies any leg swelling. Denies any chest pain or shortness of breath. Patient did try taking an oxycodone which he had at home with no significant leaf of his symptoms. Past Medical History - Allergies and Home Meds Allergies/Adverse Reactions: Allergies gabapentin Allergy (Verified 11/15/19 09:55) Unknown orphenadrine Allergy (Verified 11/15/19 09:55) Unknown pregabalin Allergy (Verified 11/15/19 09:55) Unknown acetaminophen [From Vicodin] Adverse Reaction (Severe, Verified 11/15/19 09:55) Nightmares atorvastatin [From Lipitor] Adverse Reaction (Severe, Verified 11/15/19 09:55) Intolerance,Myalgias hydrocodone [From Vicodin] Adverse Reaction (Severe, Verified 11/15/19 09:55) Nightmares hydrocodone bitartrate [From Vicodin] Adverse Reaction (Verified 11/15/19 09:55) Other beta anderson Adverse Reaction (Severe, Uncoded 11/12/19 13:04) Sinus stephanie severe Primary Care Physician: Harvinder Vaughan MD [Primary Care Provider] - Past Medical History: - - Hyperlipidemia, hypertension, PTSD, pulmonary hypertension, REHAN, coronary artery disease Surgical History: appendectomy, - - Neck surgery Smoking Status: Former smoker - Family History Maternal Family History: Family History (Last Reviewed 09/18/19 @ 14:17 by Mallorie Jimenez) Father CVA (cerebral vascular accident) Mother Cardiomegaly Brother CAD (coronary artery disease) Diabetes Brother History of heart valve replacement Brother Rheumatic fever Sister Hypertension Aortic aneurysm H/O aortic valve replacement Family History: Reports: - - Goiter Paternal Family History: Family History (Last Reviewed 09/18/19 @ 14:17 by Mallorie Jimenez) Father CVA (cerebral vascular accident) Mother Cardiomegaly Brother CAD (coronary artery disease) Diabetes Brother History of heart valve replacement Brother Rheumatic fever Sister Hypertension Aortic aneurysm H/O aortic valve replacement Family History: Reports: No pertinent history Review of Systems General: Denies: Chills, Fever, Sweats Eyes: Denies: Visual changes - bilaterally, Diplopia ENT: Denies: Rhinorrhea, Sore throat Cardiovascular: Denies: Chest pain, Palpitations Respiratory: Denies: Dyspnea, Cough, Dyspnea on exertion Gastrointestinal: Denies: Abdominal pain, Vomiting, Diarrhea, Melena, Hematochezia Genitourinary: Reports: - - Hesitancy. Denies: Dysuria, Hematuria, Frequency Musculoskeletal: Reports: Back pain - right lower back , Extremity Pain - right hip Skin: Denies: Rash, Wounds Neurological: Denies: Headache, Weakness, Numbness Physical Exam Vital Signs/Narrative: Vital Signs Temp Pulse Resp BP Pulse Ox 01/23/20 06:13 99 F 67 18 187/83 H 96 Inital Vital Signs reviewed: Yes General: Well nourished, Well developed, No Acute Distress Head: Normocephalic, Atraumatic Eyes: Perrl, EOMI ENT: Moist mucous membranes, No rhinorrhea Neck: Supple, Nontender Cardiovascular: Regular rate, Regular rhythm, No murmurs Respiratory: No distress, CTA bilaterally, Chest nontender Abdomen: Soft, Nontender, Nondistended, Normal bowel sounds Back: Nontender, Normal Inspection, - - No reproducible tenderness however patient points to his right lower lumbar back as the area of his pain.. Negative for: CVA tenderness, Spinal tenderness Extremities: Nontender, No edema, - - No reproducible tenderness with palpation of the hip. No deformity. Legs are equal length. No pain with hip range of motion.. Negative for: Edema, Calf Tenderness Skin: Normal color, No rash. Negative for: Trauma Neurological: Alert, Oriented x3, Cranial nerves II-XII grossly intact, Normal Strength, Normal Sensation Psychological: Normal affect, Normal Mood Diagnostic/Tx/Re-eval Clinical Impression(s) from Imaging Studies Femur X-Ray 01/23/20 06:43 IMPRESSION: Right hip arthroplasty with mild periosteal reaction at the lateral aspect of the proximal femoral diaphysis. Electronically Signed: Ricardo Montemayor MD at 7:34 EDT Tel , Service support , Pelvis X-Ray 01/23/20 06:43 IMPRESSION: Status post right hip replacement. Severe joint space narrowing of the left hip joint. Electronically Signed: Cb Vaughn, at 7:23 EDT , Service support , Laboratory Data 01/23/20 06:42 Urine Color Yellow Urine Clarity Clear Urine pH 7.0 Ur Specific [place] 1.010 Urine Protein Negative Urine Glucose (UA) Normal Urine Ketones Negative Urine Occult Blood Negative Urine Nitrite Negative Urine Bilirubin Negative Urine Urobilinogen Normal Ur Leukocyte Esterase Negative Urine RBC 0 SEEN Urine WBC 0 SEEN Ur Squamous Epith Cells 0 SEEN Urine Bacteria RARE Urine Mucus 0 SEEN - Medical Decision Making Patient evaluated for atraumatic right hip pain. He has associated back pain as well. His pain is not reproducible in the ER. He is treated with IM morphine. I am not sure if his pain is more from his back or from his hip itself. X-rays of the hip do not show any abnormalities of his prosthesis. Does show some mild brooke-ostial inflammation which could be related to his pain. Patient is informed of this finding so that he can be followed by his primary care doctor. Is also possible that his pain is more of a sciatica as the pain does seem to come from his back and go down his leg. Patient does not have any midline spinal tenderness. In addition he is complaining of difficulty with urination. Patient has a bladder scan which shows approximately 130 cc of urine and he is able to urinate shortly after that 200 cc of urine. I do not think he is in acute retention. Patient's blood pressure is significant only for mild hypertension he is otherwise well-appearing. Patient will follow-up with his primary care doctor. He will be placed on a short burst of steroids empirically for pain. He will follow-up with his primary care doctor. Patient is counseled on signs and symptoms requiring return to the emergency room. Patient verbalizes agreement and understand this plan. Patient discharged home in stable and improved condition. ED Disposition - Plan for ED Patient: Disposition: Home or Assisted Living Diagnosis: Acute right hip pain, Right low back pain Instructions: ED Acute Pain [facility] Prescriptions: Prednisone [Deltasone] 40 mg PO DAILY #8 tab Transmission Status: Pending to [facility]/pharmacy #[id number] Referrals: Harvinder Vaughan MD [Primary Care Provider] -
[2020-01-23 06:59] LABS: Bacteria RARE /hpf (None Seen)
[2020-01-23 07:33] VITALS: BP 174/78; PULSE 59; RESP 18; O2SAT 99
[2020-01-23] MEDS: predniSONE 20 MG Tablet 40 MG PO (07:38)
== END 2020-01-23 07:47 | disposition home or self-care (01) ==
PROVIDERS: Emergency Provider Emergency Medicine; PCP Family Medicine
DX: M25.551 Pain in right hip (principal); M54.5 Low back pain; E78.5 Hyperlipidemia, unspecified; G47.33 Obstructive sleep apnea (adult) (pediatric); I10 Essential (primary) hypertension; I25.10 Atherosclerotic heart disease of native coronary artery without angina pectoris; I27.20 Pulmonary hypertension, unspecified; N40.0 Benign prostatic hyperplasia without lower urinary tract symptoms; Z82.3 Family history of stroke; Z82.49 Family history of ischemic heart disease and other diseases of the circulatory system; Z87.891 Personal history of nicotine dependence; Z88.5 Allergy status to narcotic agent; Z96.641 Presence of right artificial hip joint
CPT/HCPCS: 72170; 73552; 81001; 96372; 99284

== ENCOUNTER 2020-01-26 13:18 | Emergency (ER) | payer MEDICARE, OTHER, SELFPAY ==
[2020-01-24 14:44] VITALS: BMI 28.4
[2020-01-26 13:19] VITALS: BP 156/83; PULSE 69; RESP 18; TEMP 36.4; O2SAT 100; BMI 27.9
--- NOTE | 2020-01-26 13:56 | ED.DCSUM_ITS ---
History of Present Illness Chief Complaint: Back Informant: Patient, Significant Other Onset: Weeks - 1 Context: Gradual Onset - Denies any injury Timing: Continuous Quality: Aching Location: Lumbar - Right side with radiation down right leg to the foot/all toes Current Severity: Severe Maximum Severity: Severe Worsened by: improves with: Movement, Ambulation Relieved by: Remaining Still - And sitting. Not Relieved By: Medications Associated Symptoms: Dysuria - Started last couple days since starting prednisone. Burning at the urethral meatus and urgency., - - No numbness, tingling, abdominal pain, bowel or bladder incontinence or retention. Narrative: Patient states he has had episodes of pain like this shooting down his right leg before but they have never lasted this long. He was seen here previously and states he was prescribed oxycodone and prednisone but it is not helping. He also had x-rays of his low back. He describes pain that is lateral in his lumbar area, not in his buttock or the midline. He had no urinary symptoms when he was seen before, however since starting the prednisone he has developed urgency and dysuria without hematuria, retention, incontinence. He denies any abdominal pain or other systemic symptoms. Sitting is more comfortable, walking and movement is more painful. Never had any lumbar back surgery. He denies any weakness or numbness in the leg, nor does he have any saddle anesthesia, but he is having trouble getting around and currently using a walker to do so, mostly all because of pain. Prior similar symptoms: Yes, With Prior Back Pain - Past Medical History (1) PTSD (post-traumatic stress disorder) Status: Chronic (2) Atherosclerotic heart disease of [place] coronary artery without angina pectoris Status: Chronic (3) Benign prostatic hypertrophy Status: Chronic (4) Essential hypertension Status: Chronic (5) 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 Status: Chronic (6) REHAN (obstructive sleep apnea) Status: Chronic (7) Pulmonary hypertension Status: Chronic Comment: RVSP 44 mmHg (8) Pure hypercholesterolemia Status: Chronic (9) Restless legs syndrome (RLS) Status: Chronic (10) Type II diabetes mellitus Status: Chronic Past Medical History - Allergies and Home Meds Allergies/Adverse Reactions: Allergies gabapentin Allergy (Verified 01/26/20 13:22) Unknown orphenadrine Allergy (Verified 01/26/20 13:22) Unknown pregabalin Allergy (Verified 01/26/20 13:22) Unknown acetaminophen [From Vicodin] Adverse Reaction (Severe, Verified 01/26/20 13:22) Nightmares atorvastatin [From Lipitor] Adverse Reaction (Severe, Verified 01/26/20 13:22) Intolerance,Myalgias hydrocodone [From Vicodin] Adverse Reaction (Severe, Verified 01/26/20 13:22) Nightmares hydrocodone bitartrate [From Vicodin] Adverse Reaction (Verified 01/26/20 13:22) Other beta anderson Adverse Reaction (Severe, Uncoded 01/26/20 13:22) Sinus stephanie severe Primary Care Physician: Harvinder Vaughan MD [Primary Care Provider] - Surgical History: appendectomy, - - Neck surgery Lives: Spouse/ Significant Other Smoking Status: Never smoker - Family History Maternal Family History: Family History (Last Reviewed 01/24/20 @ 14:51 by Mallorie Jimenez) Father CVA (cerebral vascular accident) Mother Cardiomegaly Brother CAD (coronary artery disease) Diabetes Brother History of heart valve replacement Brother Rheumatic fever Sister Hypertension Aortic aneurysm H/O aortic valve replacement Family History: Reports: - - Goiter Paternal Family History: Family History (Last Reviewed 01/24/20 @ 14:51 by Mallorie Jimenez) Father CVA (cerebral vascular accident) Mother Cardiomegaly Brother CAD (coronary artery disease) Diabetes Brother History of heart valve replacement Brother Rheumatic fever Sister Hypertension Aortic aneurysm H/O aortic valve replacement Family History: Reports: No pertinent history Review of Systems General: Denies: Chills, Fever, Sweats Eyes: Denies: Visual changes - bilaterally, Diplopia ENT: Denies: Rhinorrhea, Sore throat Cardiovascular: Denies: Chest pain, Palpitations Respiratory: Denies: Dyspnea, Cough, Dyspnea on exertion Gastrointestinal: Reports: Nausea - When pain exacerbates. Denies: Abdominal pain, Vomiting, Diarrhea, Melena, Hematochezia Genitourinary: Denies: Dysuria, Hematuria, Frequency Musculoskeletal: Reports: Back pain, Extremity Pain. Denies: Neck pain, Swelling Skin: Denies: Rash, Wounds Neurological: Denies: Headache, Weakness, Numbness Physical Exam Vital Signs/Narrative: Vital Signs Temp Pulse Resp BP Pulse Ox 01/26/20 13:19 97.5 F L 69 18 156/83 H 100 Inital Vital Signs reviewed: Yes General: Well nourished, Well developed Head: Normocephalic, Atraumatic ENT: Moist mucous membranes, No rhinorrhea Neck: Supple, - - Full range of motion Respiratory: No distress Back: Normal Inspection - Without rash, Paraspinal Tenderness - Right lumbar, below the level of the last rib, Negative SLR - Right, Negative SLR - Left. Negative for: CVA tenderness Extremeties: Nontender, No edema, - - Dorsalis pedis pulses intact bilaterally and symmetric Skin: Normal color, No rash, No Trauma Neuro: Alert, Oriented, Normal Strength, Normal Sensation, Normal DTR, Normal Gait Psychological: Normal affect, Normal Mood Diagnostic/Tx/Re-eval Impressions Lumbar Spine X-Ray 01/26/20 15:10 IMPRESSION: Lumbar spondylosis and facet arthropathy. Electronically Signed: Vinod Ratliff MD ([place]) at 15:24 EDT , Service support , 01/26/20 15:10 Lumbar Spine 2 or 3 Views [RAD] Stat Laboratory Results 01/26/20 14:00 Urine Color Yellow Urine Clarity Clear Urine pH 7.0 Ur Specific [place] 1.010 Urine Protein Negative Urine Glucose (UA) Normal Urine Ketones Negative Urine Occult Blood Negative Urine Nitrite Negative Urine Bilirubin Negative Urine Urobilinogen Normal Ur Leukocyte Esterase Negative Urine RBC 0 SEEN Urine WBC 0 SEEN Ur Squamous Epith Cells 0 SEEN Urine Bacteria 0 SEEN Urine Mucus 0 SEEN - Medical Decision Making Patient does feel better after an injection of morphine. We discussed further work-up like a CT of the abdomen/pelvis, but my suspicion for a retroperitoneal process is very low. He states he is having some pain in the midline, and given that his symptoms are certainly more consistent with sciatica, we obtained a lumbar spine films in addition to the pelvis and right hip films that he had the other day, results are as above. I offered admission, however he declines and is okay getting around with a walker and using the pain medication as needed for now. We discussed gabapentin, which may help this if it is neuropathic pain. He states that in the past he was on gabapentin for something and I gave him hand swelling. He did not get any swelling elsewhere, or any life-threatening reactions. He is okay taking it so he was given a dose here and a prescription for it, and advised that if he gets side effects that are uncomfortable then he can just stop it. He is comfortable with this plan, does not need any more oxycodone, and will follow-up with his doctor. ED Disposition - Plan for ED Patient: Disposition: Home or Assisted Living Diagnosis: Acute low back pain with right-sided sciatica Instructions: ED LUMBAR RADICULOPATHY Prescriptions: Gabapentin 300 mg PO TID 30 Days #89 cap Transmission Status: Pending to [facility]/pharmacy #[id number] Referrals: Harvinder Vaughan MD [Primary Care Provider] - (This coming week. Call for appointment.)
[2020-01-26] MEDS: Morphine 4 MG/ML Syringe IM (14:04)
[2020-01-26] MEDS: Ondansetron ODT 4 MG Tablet 8 MG PO (14:04)
[2020-01-26 14:14] LABS: Bacteria 0 SEEN /hpf (None Seen); Mucous, Urine 0 SEEN /hpf (<or=2+); Red Blood Cells-Urine 0 SEEN /hpf (0-5); Squamous Epithelial Cells - UA 0 SEEN /hpf (0-5); White Blood Cells 0 SEEN /hpf (0-5)
[2020-01-26 14:16] LABS: Color, Urine Yellow (Yellow); Glucose, Dipstick Normal (Normal); Ketone-Dipstick Negative (Negative); Leukocyte Esterase-Dipstick Negative /ul (Negative); Nitrite-Dipstick Negative (Negative); Occult Blood-Urine Negative /ul (Negative); Protein-Dipstick Negative (Negative); Urine Bilirubin Dipstick Negative (Negative); Urine Clarity Clear (Clear); Urine Urobilinogen Normal (Normal)
[2020-01-26] MEDS: Gabapentin 300 MG Capsule PO (14:41)
--- NOTE | 2020-01-26 15:10 | RAD_ITS ---
STUDY: X-RAY - LUMBAR SPINE REASON FOR EXAM: Male, 79 years old. right sided sciatica pain x 1 week TECHNIQUE: 3 view(s) of the lumbar spine were obtained. COMPARISON: None FINDINGS: Normal lumbar lordosis. There is no substantial scoliosis. There is a normal alignment of the vertebrae. There is diffuse demineralization with multi-level endplate spondylosis. Normal disc space heights. Multilevel facet arthropathy. No compression fracture. There is atherosclerotic calcification of the abdominal aorta without a demonstrated aneurysm. RAD/Lumbar Spine 2 or 3 Views IMPRESSION: Lumbar spondylosis and facet arthropathy. Electronically Signed: Vinod Ratliff MD ([place]) at 15:24 EDT , Service support ,
[2020-01-26 16:03] VITALS: BP 150/76; PULSE 56; RESP 15
== END 2020-01-26 16:04 | disposition home or self-care (01) ==
PROVIDERS: Emergency Provider Emergency Medicine; PCP Family Medicine
DX: M54.41 Lumbago with sciatica, right side (principal); E11.51 Type 2 diabetes mellitus with diabetic peripheral angiopathy without gangrene; E78.00 Pure hypercholesterolemia, unspecified; G25.81 Restless legs syndrome; G47.33 Obstructive sleep apnea (adult) (pediatric); I10 Essential (primary) hypertension; I25.10 Atherosclerotic heart disease of native coronary artery without angina pectoris; N40.0 Benign prostatic hyperplasia without lower urinary tract symptoms; I27.20 Pulmonary hypertension, unspecified; Z82.3 Family history of stroke; Z88.5 Allergy status to narcotic agent; Z82.49 Family history of ischemic heart disease and other diseases of the circulatory system; M47.816 Spondylosis without myelopathy or radiculopathy, lumbar region
CPT/HCPCS: 72100; 81001; 96372; 99283

== ENCOUNTER → 2020-02-04 08:53 | Outpatient (CLI) | payer MEDICARE, OTHER, SELFPAY ==
[2020-02-03 14:05] VITALS: BMI 28.3
[2020-02-04 09:53] LABS: Absolute Lymphocyte Count 1.35 X10^3/uL (0.83-4.51); Absolute Neutrophil Count 6.7 X10^3/uL (2.0-7.7); Basophil# 0.11 X10^3/uL; Basophil% 1.2 % (0-1); Eosinophil# 0.31 X10^3/uL; Eosinophils% 3.2 % (0-5); Hematocrit 41.8 % (40-54); Hemoglobin 13.7 g/dL (13.0-16.5); Lymphocyte # 1.35 X10^3/ul (4.0); Lymphocyte % 14.1 % (19-41); Mean Corp Hgb Conc 32.8 g/dL (32-36); Mean Corpuscular Hgb 31.1 pg (27.0-32.0); Mean Corpuscular Volume 94.8 fL (80-94); Monocyte# 1.01 X10^3/uL; Monocyte% 10.6 % (0-10); NRBC Flagged by Analyzer 0 % (0-5); Neutrophil # 6.72 X10^3/uL (2.7-7.7); Neutrophil % 70.4 % (47-70); Platelet Count 311 K/mm3 (150-450); RBC Distribution Width CV 12.7 % (11.6-14.6); RBC Distribution Width SD 44.2 fl (35.1-43.9); Red Blood Count 4.41 M/mm3 (4.6-6.2); White Blood Count 9.6 K/mm3 (4.4-11.0)
[2020-02-04 10:19] LABS: CRP < 2.90 mg/L (0.0-3.0)
[2020-02-04 10:37] LABS: Erythrocyte Sedimentation Rate 18 mm/hr (0-20)
== END ==
PROVIDERS: PCP Family Medicine; Referring Provider Orthopaedic Surgery; Visit Provider Orthopaedic Surgery
DX: M25.551 Pain in right hip (principal); Z96.649 Presence of unspecified artificial hip joint
CPT/HCPCS: 36415; 85025; 85652; 86140

== ENCOUNTER → 2020-02-07 09:17 | Outpatient (CLI) | payer MEDICARE, OTHER, SELFPAY ==
[2020-02-03 14:05] VITALS: BMI 28.3
--- NOTE | 2020-02-07 09:18 | NM_ITS ---
CLINICAL: 79-year-old male with reported history of painful right hip arthroplasty operated approximately 12 months previous. LIMITED 99m Tc MDP THREE PHASE BONE SCINTIGRAPHY COMPARISON: Plain film radiograph reports right femur, pelvis 01/23/2020 FINDINGS: Following the intravenous administration of 26.0 mCi of 99m Tc MDP, three-phase bone acquisitions of the pelvis reveal: 1. The flow and immediate static blood pool acquisitions demonstrate normal arterial and venous phase distribution of the radiopharmaceutical to the bilateral hemipelvis. 2. Delayed images depict increased tracer concentration identified in the acetabular and trochanteric aspects of the painful right hip prosthesis. 3. Enhanced tracer distribution is demonstrated in the left hip involving the superior-inferior acetabulum. $. The remaining limited skeletal structures are scintigraphically unremarkable. NM/Bone Scan Three Phase IMPRESSION: 1. The increase in radiopharmaceutical concentration identified in the acetabular and trochanteric aspects of the symptomatic right hip arthroplasty may represent loosening. The specificity of this finding is decreased in the setting of operative intervention < 2 years prior to the current presentation. If an infectious etiology is a diagnostic consideration, correlation with labeled leukocyte imaging is recommended. 2. Degenerative arthritis appears evident in the left hip as defined above. Electronically Signed: Eze Abdullahi DO at 15:54 EDT Tel , Service support ,
== END ==
PROVIDERS: PCP Family Medicine; Referring Provider Orthopaedic Surgery; Visit Provider Orthopaedic Surgery
DX: M25.551 Pain in right hip (principal)
CPT/HCPCS: 78315

== ENCOUNTER → 2020-02-11 05:21 | Outpatient (CLI) | payer MEDICARE, OTHER, SELFPAY ==
[2020-02-03 14:05] VITALS: BMI 28.3
--- NOTE | 2020-02-11 05:21 | NM_ITS ---
CLINICAL: 79-year-old male with reported history of painful right hip arthroplasty and suspected potential prosthetic sepsis. LIMITED 99m Tc HMPAO LABELED LEUKOCYTE EXAMINATION COMPARISON: 3 phase bone scintigraphy study dated 02/07/2020 FINDINGS: Following the intravenous administration of 33.0 mCi of 99m Tc HMPAO labeled leukocytes, image acquisitions of the pelvis at approximately 2.0 hours post radiopharmaceutical administration reveal: 1. Increased radiopharmaceutical concentration is defined in the inferior posterior acetabular component of the right hip prosthesis, corresponding to findings demonstrated on 3 phase bone scintigraphy dated 02/07/2020. 2. Physiologic tracer uptake is otherwise noted in the axial skeletal structures, urinary bladder. NM/Inflammatory Process Limited IMPRESSION: 1. The increase in radiopharmaceutical distribution visualized in the inferior posterior acetabulum component of the symptomatic right hip arthroplasty may represent a component of prosthetic sepsis. Correlation with Tc sulfur colloid imaging is recommended to facilitate the specificity of this finding. 2. No other definitive scintigraphic abnormalities are demonstrated. Electronically Signed: Eze Abdullahi DO at 22:58 EDT Tel , Service support ,
== END ==
PROVIDERS: PCP Family Medicine; Referring Provider Orthopaedic Surgery; Visit Provider Orthopaedic Surgery
DX: Z96.649 Presence of unspecified artificial hip joint (principal)
CPT/HCPCS: 78801; A9521

== ENCOUNTER 2020-03-03 15:04 | Emergency (ER) | payer MEDICARE, OTHER, SELFPAY ==
[2020-03-03 08:36] VITALS: BMI 28.3
[2020-03-03 15:06] VITALS: BP 154/74; PULSE 66; RESP 19; TEMP 36.8; O2SAT 99; BMI 28.3
--- NOTE | 2020-03-03 15:26 | EKG12_ITS ---
Test Reason : CP Blood Pressure : / mmHG Vent. Rate : 067 BPM Atrial Rate : 067 BPM P-R Int : 180 ms QRS Dur : 090 ms QT Int : 408 ms P-R-T Axes : 056 -03 045 degrees QTc Int : 431 ms Normal sinus rhythm Normal ECG Confirmed by TAVO FUNEZ, COLLIN ([id number]), map editor NARAYAN ERAZO ([id number]) on 03/09/2020 8:48:16 A M Referred By: RENE Confirmed By:NALDO VO MD
--- NOTE | 2020-03-03 15:27 | ED.VIS.GEN ---
History of Present Illness Chief Complaint: Chest Pain Informant: Patient, Significant Other Onset: Hours Context: Sudden Onset Timing: 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 Quality: Dyspnea at rest Location: Sitting in his chair at home Current Severity: - - Resolved Maximum Severity: Severe Worsened by: Possible anxiety reaction due to unexplained chronic right flank pain Relieved by: Breathing into a paper bag Associated Symptoms: Flank pain radiating to groin Narrative: Patient 79-year-old male who presents because of shortness of breath that occurred abruptly while sitting in his chair at home. He was breathing to a brown paper bag when squad arrived. He presently has no symptoms. He had no nausea, vomiting, diaphoresis or chest discomfort. He did have a stent placed in 2010. He is not a good informant. He denies leg pain, swelling or discoloration. He has no history of VTE. states he has had work-up and the etiology of his pain is unknown. He was informed by one orthopedic surgeon he needs his hip revised another disagreed. He was seen this morning by Dr. Alexandra and told he does not have a hernia. He did have a hydrocele which was repaired in the remote past. He denies dysuria, frequency, urgency or hematuria. He denies testicular pain. He denies history of lumbar herniated disc. He did have cervical disc disease requiring surgery. Prior similar symptoms: Yes - Last evening and 2 evenings ago Recent Illness/Hospitalization: Yes - Pain of unknown etiology - Past Medical History (1) Atherosclerotic heart disease of platinum coronary artery without angina pectoris Status: Chronic (2) Benign prostatic hypertrophy Status: Chronic (3) Essential hypertension Status: Chronic (4) 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 Status: Chronic (5) 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 Status: Chronic (6) half-way use of drug Status: Chronic (7) REHAN (obstructive sleep apnea) Status: Chronic (8) PTSD (post-traumatic stress disorder) Status: Chronic (9) Pulmonary hypertension Status: Chronic Comment: RVSP 44 mmHg (10) Pure hypercholesterolemia Status: Chronic (11) Restless legs syndrome (RLS) Status: Chronic (12) Type II diabetes mellitus Status: Chronic Past Medical History - Allergies and Home Meds Allergies/Adverse Reactions: Allergies acetaminophen [From Vicodin] Allergy (Verified 03/03/20 15:05) Other Severe nightmares hydrocodone [From Vicodin] Allergy (Verified 03/03/20 15:05) Other Severe nightmares orphenadrine Allergy (Verified 10/13/20 15:05) Unknown pregabalin Allergy (Verified 03/03/20 15:05) Swelling atorvastatin [From Lipitor] Adverse Reaction (Severe, Verified 03/03/20 15:05) Intolerance,Myalgias Primary Care Physician: Harvinder Vaughan MD [Primary Care Provider] - Prior records reviewed: Yes Surgical History: appendectomy, - - Neck surgery Lives: Spouse/ Significant Other Smoking Status: Never smoker Alcohol: None Drugs: None - Family History Maternal Family History: Family History (Last Reviewed 03/03/20 @ 09:[address] Vito Alexandra MD) Father CVA (cerebral vascular accident) Mother Cardiomegaly Brother CAD (coronary artery disease) Diabetes Brother History of heart valve replacement Brother Rheumatic fever Sister Hypertension Aortic aneurysm H/O aortic valve replacement Brother Cancer Brother Thyroid disorder Family History: Reports: - - Goiter Paternal Family History: Family History (Last Reviewed 03/03/20 @ 09:[address] Vito Alexandra MD) Father CVA (cerebral vascular accident) Mother Cardiomegaly Brother CAD (coronary artery disease) Diabetes Brother History of heart valve replacement Brother Rheumatic fever Sister Hypertension Aortic aneurysm H/O aortic valve replacement Brother Cancer Brother Thyroid disorder Family History: Reports: No pertinent history Review of Systems General: Denies: Chills, Fever, Malaise, Subjective Eyes: Denies: Visual changes - bilaterally, Blurred Vision - bilaterally ENT: Denies: Rhinorrhea, Sore throat Cardiovascular: Denies: Chest pain, Palpitations, Heart racing Respiratory: Reports: Dyspnea. Denies: Cough, Sputum, Dyspnea on exertion, Orthopnea, Paroxysmal nocturnal dyspnea Gastrointestinal: Denies: Abdominal pain, Nausea, Vomiting, Diarrhea, Melena, Hematochezia Musculoskeletal: Denies: Myalgias, Arthralgias, Neck pain, Back pain, Swelling, Extremity Pain, -, - Skin: Reports: Rash Neurological: Denies: Headache, Weakness, Numbness Psych: Reports: Anxiety Endocrine: Denies: Polyuria, Polydipsia Physical Exam Vital Signs/Narrative: Vital Signs Temp Pulse Resp BP Pulse Ox 03/03/20 15:06 98.2 F 66 19 H 154/74 H 99 Inital Vital Signs reviewed: Yes General: Well nourished, Well developed, No Acute Distress Head: Normocephalic, Atraumatic Eyes: Perrl, EOMI. Negative for: Pale conjunctiva, Scleral icterus ENT: Moist mucous membranes, No rhinorrhea Neck: Supple, Nontender, No lymphadenopathy, No JVD Cardiovascular: Regular rate, Regular rhythm, No murmurs Respiratory: No distress, CTA bilaterally, Chest nontender Abdomen: Soft, Nontender, Nondistended, Normal bowel sounds Rectal: Deferred Back: Normal Inspection Extremities: Nontender, No edema Skin: Normal color, No rash Neurological: Alert, Oriented x3, Cranial nerves II-XII grossly intact, Normal Strength, Normal Sensation Psychological: Depressed Diagnostic/Tx/Re-eval Laboratory Results 03/03/20 15:50 Troponin I < 0.015 Normal troponin and symptoms for the past 2 days will discharge to home. - EKG Initial EKG Interpretation: Sinus Rhythm - Normal sinus rhythm rate of 67. FL interval, QRS duration QT interval and axis are normal. EKG is normal. EKG is unchanged from November 12, 2019. - Medical Decision Making EK this is a anxiety reaction. Since he had symptoms over the past 48 hours that were very similar troponin was obtained since he believes the only symptom he had prior to his cardiac catheterization was dyspnea. And EKG was obtained per protocol and reveals a sinus rhythm with a ventricular rate of 67. FL interval is 180 ms. QS duration 90 ms. QT interval 408 ms. [place] is normal. This EKG is unchanged from November 12, 2019. ED Disposition - Plan for ED Patient: Disposition: Home or Assisted Living Diagnosis: Dyspnea, Anxiety reaction Instructions: ED Stress React Referrals: Harvinder Vaughan MD [Primary Care Provider] - As Needed
[2020-03-03 17:00] VITALS: BP 134/74; PULSE 71; RESP 16; O2SAT 98
== END 2020-03-03 17:02 | disposition home or self-care (01) ==
PROVIDERS: Emergency Provider Emergency Medicine; PCP Family Medicine
DX: R06.00 Dyspnea, unspecified (principal); F41.1 Generalized anxiety disorder; E11.51 Type 2 diabetes mellitus with diabetic peripheral angiopathy without gangrene; E78.00 Pure hypercholesterolemia, unspecified; G25.81 Restless legs syndrome; G47.33 Obstructive sleep apnea (adult) (pediatric); I10 Essential (primary) hypertension; I25.10 Atherosclerotic heart disease of native coronary artery without angina pectoris; I27.20 Pulmonary hypertension, unspecified; N40.0 Benign prostatic hyperplasia without lower urinary tract symptoms; Z82.3 Family history of stroke; Z82.49 Family history of ischemic heart disease and other diseases of the circulatory system; Z88.5 Allergy status to narcotic agent
CPT/HCPCS: 84484; 93005; 99281; 99282; 99285; A4216

== ENCOUNTER → 2020-03-05 06:44 | Outpatient (CLI) | payer MEDICARE, OTHER, SELFPAY ==
[2020-03-03 08:36] VITALS: BMI 28.3
[2020-03-03 15:06] VITALS: BMI 28.3
--- NOTE | 2020-03-05 06:45 | CT_ITS ---
STUDY: CT ABDOMEN AND PELVIS WITH CONTRAST REASON FOR EXAM: Male, 79 years old. RLQ PAIN RADIATES TO LOW MID ABD -- DIARRHEA/CONSTIPATION -- SURG-APPY,TOTAL HIP RIGHT, HEART STENT,VALVES REPLACED RADIATION DOSAGE (If Supplied By Facility): CTDIvol = ( 15.07 ) mGy, DLP = ( 1030.57 ) mGycm TECHNIQUE: Transaxial images were obtained from the dome of the diaphragm to the symphysis pubis with oral contrast. Oral and amp; IV Readi-CAT and amp; 100mL Isovue-300 was administered. Sagittal and coronal images were reconstructed. Individualized dose optimization techniques were used for this CT. COMPARISON: None. FINDINGS: The visualized lung bases are unremarkable. The visualized portions of the heart are within normal limits. There is decreased attenuation of the liver consistent with steatosis. Normal gallbladder and extrahepatic biliary system. Normal spleen. Normal pancreas. Punctate calcification in the lateral limb of the right adrenal gland. 1.7 cm cyst in the posterior midportion of the right kidney. Several tiny cysts in the posterolateral aspect of the left kidney. Normal visualized stomach. Normal small intestine. There are multiple colonic diverticula consistent with diverticulosis. There are surgical clips in the region of the appendix consistent with a prior appendectomy. There is diffuse atherosclerotic calcification of the abdominal aorta, without a demonstrated aneurysm. Normal inferior vena cava. Normal retroperitoneum. Mild degree of diffuse bladder wall thickening. There is a small umbilical hernia containing fat. There are diffuse degenerative changes of the visualized lumbar spine. Prior right total hip placement. CT/Abdomen/Pelvis WITH Contrast IMPRESSION: Scattered sigmoid diverticula. Small bilateral renal cysts. Fatty infiltration of the liver. Electronically Signed: Cb Vaughn, at 14:15 EDT , Service support ,
[2020-03-05 07:05] LABS: CREATININE FINGERSTICK 0.9 mg/dL (0.70-1.30); EGFR FINGERSTICK > 60.0000 mL/min (>60)
== END ==
PROVIDERS: PCP Family Medicine; Referring Provider Surgery; Visit Provider Surgery
DX: R10.31 Right lower quadrant pain (principal)
CPT/HCPCS: 74177; Q9967

== ENCOUNTER 2020-03-13 11:12 | Emergency (ER) | payer MEDICARE, OTHER, SELFPAY ==
[2020-03-13 11:13] VITALS: BP 160/66; PULSE 78; RESP 15; TEMP 36.2; O2SAT 95; BMI 27.7
[2020-03-13 11:17] VITALS: BP 160/66; PULSE 77; RESP 15; TEMP 36.2; O2SAT 97
--- NOTE | 2020-03-13 11:35 | RAD_ITS ---
STUDY: X-RAY CHEST REASON FOR EXAM: Male, 79 years old. Chest pain TECHNIQUE: Single AP portable view of the chest. COMPARISON: Comparison is made with prior study dated 11/12/2019. FINDINGS: EKG electrodes are seen. There is hyperinflation of the lungs consistent with chronic obstructive lung disease (COPD). There is no demonstrated pleural abnormality. Normal size heart. Normal mediastinum and luke. Normal visualized pulmonary arteries. There is atherosclerotic calcification of the aortic arch with tortuosity. There are diffuse degenerative changes of the visualized thoracic spine. Normal visualized ribs, clavicles, and shoulders. There is no demonstrated abnormality of the visualized soft tissue structures of the upper abdomen. RAD/Chest 1 View (Portable) IMPRESSION: Hyperinflation. Electronically Signed: Cb Vaughn, at 12:24 EDT , Service support ,
--- NOTE | 2020-03-13 11:35 | EKG12_ITS ---
Test Reason : Blood Pressure : / mmHG Vent. Rate : 058 BPM Atrial Rate : 058 BPM P-R Int : 182 ms QRS Dur : 092 ms QT Int : 420 ms P-R-T Axes : 057 -08 024 degrees QTc Int : 412 ms Sinus bradycardia Otherwise normal ECG Confirmed by EDER FUNEZ, GERALD ([id number]), brands editor NARAYAN ERAZO ([id number]) on 03/16/2020 11:31:02 AM Referred By: KELLY Confirmed By:GERALD GAINES MD
--- NOTE | 2020-03-13 11:35 | CT_ITS ---
STUDY: CT ABDOMEN AND PELVIS WITHOUT CONTRAST REASON FOR EXAM: Male, 79 years old. ABD PAIN SINCE CT 1 WK AGO. RADIATION DOSAGE (If Supplied By Facility): CTDIvol = ( 10.43 ) mGy, DLP = ( 868.76 ) mGycm TECHNIQUE: Transaxial images were obtained from the dome of the diaphragm to the symphysis pubis without oral contrast, and without intravenous contrast. Sagittal and coronal images were reconstructed. Individualized dose optimization techniques were used for this CT. COMPARISON: Comparison is made with prior study dated 03/05/2020. FINDINGS: Minimal increased linear markings at the left lung base suggestive of atelectasis. The visualized portions of the heart are within normal limits. Normal liver. Normal gallbladder and extrahepatic biliary system. Normal spleen. Normal pancreas. Normal bilateral adrenal glands. There is a 1.5 cm cyst in the inferior posterior aspect of the right kidney. Normal left kidney. Normal visualized stomach. Normal small intestine. There are scattered colonic diverticula consistent with diverticulosis. There are surgical clips in the region of the appendix consistent with a prior appendectomy. There is diffuse atherosclerotic calcification of the abdominal aorta, without a demonstrated aneurysm. Normal inferior vena cava. Normal retroperitoneum. Normal urinary bladder. There is a small umbilical hernia containing fat. There are diffuse degenerative changes of the visualized lumbar spine. CT/Abdomen/Pelvis W IV Cont ONLY IMPRESSION: Right renal cysts. There has been essentially no change as compared to prior study. Electronically Signed: Cb Vaughn, at 13:59 EDT , Service support ,
--- NOTE | 2020-03-13 11:38 | ED.VIS.GI ---
History of Present Illness Informant: Patient, Family - Abdominal Pain/Flank Pain Onset: Weeks - 1 Context: Gradual Onset Timing: Continuous Quality: Sharp Location: Epigastric Current Severity: Severe Maximum Severity: Severe Worsened by: Food Relieved by: Remaining Still - Nausea/Vomiting/Emesis GI Symptom: Nausea. Negative for: Vomiting - Diarrhea/Melena/Hematochezia GI Symptom: Negative for: Diarrhea, Melena, Hematochezia Associated Symptoms: Negative for: Dysuria, Frequency, Hematuria, Urgency Narrative: 71-year-old male presents with epigastric abdominal pain. Is been ongoing for 8 days since he had a barium swallow to evaluate a possible abdominal hernia. Since that time he has not had much of an appetite and has had progressive epigastric pain that he describes as sharp and burning. He has had nausea without vomiting. No diarrhea melena or hematochezia. No constipation. No chest pain or shortness of breath. He is not lightheaded or dizzy. No fevers. Has been urinating normally. His doctor prescribed him Zofran he has not had improvement. Prior similar symptoms: Yes Recent Illness/Hospitalization: No <Nikita Rajput - Last Filed: 03/13/20 14:19> <Kiko Reed - Last Filed: 03/13/20 16:02> Chief Complaint: Abd Pain Past Medical History Prior records reviewed: Yes Past Medical History: - - Coronary artery disease hypertension hyperlipidemia Surgical History: angioplasty, appendectomy, - - Neck surgery Smoking Status: Former smoker - Family History Maternal Family History: Family History (Last Reviewed 03/03/20 @ 09:[address] Vito Alexandra MD) Father CVA (cerebral vascular accident) Mother Cardiomegaly Brother CAD (coronary artery disease) Diabetes Brother History of heart valve replacement Brother Rheumatic fever Sister Hypertension Aortic aneurysm H/O aortic valve replacement Brother Cancer Brother Thyroid disorder Family History: Reports: - - Goiter Paternal Family History: Family History (Last Reviewed 03/03/20 @ 09:[address] Vito Aleaxndra MD) Father CVA (cerebral vascular accident) Mother Cardiomegaly Brother CAD (coronary artery disease) Diabetes Brother History of heart valve replacement Brother Rheumatic fever Sister Hypertension Aortic aneurysm H/O aortic valve replacement Brother Cancer Brother Thyroid disorder Family History: Reports: No pertinent history <Nikita Rajput - Last Filed: 03/13/20 14:19> - Family History Maternal Family History: Family History (Last Reviewed 03/03/20 @ 09:[address] Vito Alexandra MD) Father CVA (cerebral vascular accident) Mother Cardiomegaly Brother CAD (coronary artery disease) Diabetes Brother History of heart valve replacement Brother Rheumatic fever Sister Hypertension Aortic aneurysm H/O aortic valve replacement Brother Cancer Brother Thyroid disorder Paternal Family History: Family History (Last Reviewed 03/03/20 @ 09:[address] Vito Alexandra MD) Father CVA (cerebral vascular accident) Mother Cardiomegaly Brother CAD (coronary artery disease) Diabetes Brother History of heart valve replacement Brother Rheumatic fever Sister Hypertension Aortic aneurysm H/O aortic valve replacement Brother Cancer Brother Thyroid disorder <Kiko Reed - Last Filed: 03/13/20 16:02> - Allergies and Home Meds Allergies/Adverse Reactions: Allergies acetaminophen [From Vicodin] Allergy (Verified 03/13/20 11:18) Other Severe nightmares hydrocodone [From Vicodin] Allergy (Verified 03/13/20 11:18) Other Severe nightmares orphenadrine Allergy (Verified 03/13/20 11:18) Unknown pregabalin Allergy (Verified 03/13/20 11:18) Swelling atorvastatin [From Lipitor] Adverse Reaction (Severe, Verified 03/13/20 11:18) Intolerance,Myalgias Primary Care Physician: Harvinder Vaughan MD [Primary Care Provider] - Review of Systems All systems negative except as indicated General: Denies: Chills, Fever, Sweats Eyes: Denies: Visual changes - bilaterally, Diplopia ENT: Denies: Rhinorrhea, Sore throat Cardiovascular: Denies: Chest pain, Palpitations Respiratory: Denies: Dyspnea, Cough, Dyspnea on exertion Gastrointestinal: Reports: Abdominal pain, Nausea. Denies: Vomiting, Diarrhea, Constipation, Melena, Hematochezia Genitourinary: Denies: Dysuria, Hematuria, Frequency Musculoskeletal: Denies: Back pain, Extremity Pain Skin: Denies: Rash, Wounds Neurological: Denies: Headache, Weakness, Numbness <Nikita Rajput - Last Filed: 03/13/20 14:19> Physical Exam Vital Signs/Narrative: Vital Signs Temp Pulse Resp BP Pulse Ox 03/13/20 11:17 97.2 F L 77 15 160/66 H 97 03/13/20 11:13 97.2 F L 78 15 160/66 H 95 Inital Vital Signs reviewed: Yes General: Well nourished, Well developed, No Acute Distress Head: Normocephalic, Atraumatic Eyes: Perrl, EOMI ENT: Moist mucous membranes, No rhinorrhea Neck: Supple, Nontender Cardiovascular: Regular rate, Regular rhythm, No murmurs Respiratory: No distress, CTA bilaterally, Chest nontender Abdomen: Soft, Nondistended, Normal bowel sounds, Tender - Gastric pain on palpation. No guarding or rebound. No Vincent sign.. Negative for: Vincent's sign Back: Nontender, Normal Inspection Extremities: Nontender, No edema Skin: Normal color, No rash Neurological: Alert, Oriented x3, Cranial nerves II-XII grossly intact, Normal Strength, Normal Sensation Psychological: Normal Mood, - - Patient is anxious <Nikita Rajput - Last Filed: 03/13/20 14:19> Vital Signs/Narrative: Vital Signs Pulse Resp BP Pulse Ox 03/13/20 14:54 65 16 164/70 H 98 <Kiko Reed - Last Filed: 03/13/20 16:02> Diagnostic/Tx/Re-eval Chest X-Ray - ED: 1 View, Read by ED Physician, Read by Radiologist, No Acute Disease CT: Abdomen and Pelvis Impressions Abdomen/Pelvis CT 03/13/20 11:35 IMPRESSION: Right renal cysts. There has been essentially no change as compared to prior study. Electronically Signed: Cb Vaughn, at 13:59 EDT , Service support , Chest X-Ray 03/13/20 11:35 IMPRESSION: Hyperinflation. Electronically Signed: Cb Vaughn, at 12:24 EDT , Service support , 03/13/20 11:35 Abdomen/Pelvis W IV Cont ONLY [CT] Stat Chest 1 View (Portable) [RAD] Stat Laboratory Results 03/13/20 03/13/20 03/13/20 11:20 11:20 11:45 WBC 8.5 RBC 3.92 L Hgb 12.3 L Hct 36.3 L MCV 92.6 MCH 31.4 MCHC 33.9 RDW Std Deviation 42.4 RDW Coeff of Guido 12.4 Plt Count 336 MPV 9.2 Immature Gran % (Auto) 0.400 Neut % (Auto) 75.1 H Lymph % (Auto) 13.4 L [place] % (Auto) 8.8 Eos % (Auto) 1.6 Baso % (Auto) 0.7 Absolute Neuts (auto) 6.4 Absolute Lymphs (auto) 1.14 Nucleated RBC % 0 Sodium 138 Potassium 4.3 Chloride 107 Carbon Dioxide 27.0 Anion Gap 4 L BUN 9 Creatinine 1.15 Estim Creat Clear Calc 59.83 Est GFR (MDRD) Af Amer 79 Est GFR (MDRD) Non-Af 65 BUN/Creatinine Ratio 7.8 L Glucose 121 H Calcium 9.0 Total Bilirubin 0.60 AST 23 ALT 29 Alkaline Phosphatase 98 Troponin I < 0.015 Total Protein 7.1 Albumin 3.3 Globulin 3.8 Albumin/Globulin Ratio 0.9 Lipase 147 Urine Color Yellow Urine Clarity Clear Urine pH 7.0 Ur Specific [place] 1.005 Urine Protein Negative Urine Glucose (UA) Normal Urine Ketones Negative Urine Occult Blood Negative Urine Nitrite Negative Urine Bilirubin Negative Urine Urobilinogen Normal Ur Leukocyte Esterase Negative Urine RBC 0 SEEN Urine WBC 0 SEEN Ur Squamous Epith Cells 0-5 SEEN Urine Bacteria 0 SEEN Urine Mucus 0 SEEN - EKG Initial EKG Interpretation: Sinus Rhythm, No Acute Injury Pattern Prior: Unchanged - Medical Decision Making EKG was sinus rhythm no signs of ischemia normal intervals no ectopy unchanged on previous EKG. Patient was hemodynamically stable he declined analgesia or antiemetics. CBC CMP lipase troponin were obtained all are unremarkable as was urinalysis. Chest x-ray is unremarkable as well. CT abdomen pelvis unremarkable. Discussed with patient and his at this time his thinks he may be dealing with anxiety secondary to the possibility he may need hip surgery to revise his arthroplasty. At this time he is ambulatory he is stable he has pain medicine at home we do not feel he needs admission and he will be discharged home with following up with his primary and as scheduled with orthopedics. <Pelini,Nikita PA - Last Filed: 03/13/20 14:19> - Medical Decision Making Patient independently interviewed and evaluated in concert with physician events and promotions assistant. Agree with above. Patient appears well and nontoxic. Lab work within normal limits. CT of the abdomen pelvis unremarkable. Patient is declining any pain medication at this time. Advised to follow-up with his primary care doctor as well as orthopedic surgeon. Asked to return for new or worsening symptoms. Patient agreeable and discharged home in stable condition. <Kiko Reed - Last Filed: 03/13/20 16:02> ED Disposition <Nikita Rajput - Last Filed: 03/13/20 14:19> <Kiko Reed - Last Filed: 03/13/20 16:02> - Plan for ED Patient: Disposition: Home or Assisted Living Diagnosis: Abdominal pain, Nausea, Essential hypertension, Pure hypercholesterolemia, Type II diabetes mellitus, Presence of stent in coronary artery Instructions: ED Unknown Causes of Abdominal Pain Male Prescriptions: Omeprazole 40 mg PO DAILY #30 capsule.dr Transmission Status: Received by [facility][id number] Referrals: Harvinder Vaughan MD [Primary Care Provider] -
[2020-03-13 12:01] VITALS: BP 176/70; PULSE 57; RESP 16; O2SAT 99
[2020-03-13] MEDS: 0.9% Normal Saline 1,000 ML 1000 ML IV (12:01)
[2020-03-13 12:02] LABS: Absolute Lymphocyte Count 1.14 X10^3/uL (0.83-4.51); Absolute Neutrophil Count 6.4 X10^3/uL (2.0-7.7); Basophil# 0.06 X10^3/uL; Basophil% 0.7 % (0-1); Eosinophil# 0.14 X10^3/uL; Eosinophils% 1.6 % (0-5); Hematocrit 36.3 % (40-54); Hemoglobin 12.3 g/dL (13.0-16.5); Lymphocyte # 1.14 X10^3/ul (4.0); Lymphocyte % 13.4 % (19-41); Mean Corp Hgb Conc 33.9 g/dL (32-36); Mean Corpuscular Hgb 31.4 pg (27.0-32.0); Mean Corpuscular Volume 92.6 fL (80-94); Mean Platelet Vol. 9.2 fl (6.2-12.0); Monocyte# 0.75 X10^3/uL; Monocyte% 8.8 % (0-10); NRBC Flagged by Analyzer 0 % (0-5); Neutrophil # 6.39 X10^3/uL (2.7-7.7); Neutrophil % 75.1 % (47-70); Platelet Count 336 K/mm3 (150-450); RBC Distribution Width CV 12.4 % (11.6-14.6); RBC Distribution Width SD 42.4 fl (35.1-43.9); Red Blood Count 3.92 M/mm3 (4.6-6.2); White Blood Count 8.5 K/mm3 (4.4-11.0)
[2020-03-13 12:34] LABS: ALB/GLOB Ratio 0.9 RATIO (0.9-2.4); AST(SGOT) 23 U/L (15-37); Alanine Aminotransfer ALT/SGPT 29 U/L (16-61); Albumin, Serum 3.3 g/dL (3.2-5.0); Alkaline Phosphatase 98 U/L (45-117); Anion Gap 4 (5-15); BUN 9 mg/dL (7-18); BUN/Creat Ratio 7.8 RATIO (10-20); Chloride 107 mmol/L (98-107); Creatinine, Serum 1.15 mg/dL (0.70-1.30); EST Glomerular Filtration Rate 65 mL/min (>60); Est Glom Filt Rate - Afr Amer 79 mL/min (>60); Estimated Creatinine Clearance 59.83 ml/min; Globulin 3.8 g/dL (2.2-4.2); Glucose 121 mg/dL (74-106); Lipase 147 U/L (73-393); Potassium 4.3 mmol/L (3.5-5.1); Protein, Total 7.1 g/dL (6.4-8.2); Sodium Level 138 mmol/L (136-145)
[2020-03-13 12:59] LABS: Bacteria 0 SEEN /hpf (None Seen); Mucous, Urine 0 SEEN /hpf (<or=2+); Red Blood Cells-Urine 0 SEEN /hpf (0-5); White Blood Cells 0 SEEN /hpf (0-5)
[2020-03-13 13:08] LABS: Color, Urine Yellow (Yellow); Glucose, Dipstick Normal (Normal); Ketone-Dipstick Negative (Negative); Leukocyte Esterase-Dipstick Negative /ul (Negative); Nitrite-Dipstick Negative (Negative); Occult Blood-Urine Negative /ul (Negative); Protein-Dipstick Negative (Negative); Specific Gravity, Urine 1.005 (1.002-1.030); Urine Bilirubin Dipstick Negative (Negative); Urine Clarity Clear (Clear); Urine Urobilinogen Normal (Normal)
[2020-03-13 13:17] LABS: Squamous Epithelial Cells - UA 0-5 SEEN /hpf (0-5)
[2020-03-13 14:54] VITALS: BP 164/70; PULSE 65; RESP 16; O2SAT 98
== END 2020-03-13 14:55 | disposition home or self-care (01) ==
PROVIDERS: Emergency Provider Physician Assistant Medical; PCP Family Medicine
DX: R10.9 Unspecified abdominal pain (principal); R11.0 Nausea; I10 Essential (primary) hypertension; E78.00 Pure hypercholesterolemia, unspecified; E11.9 Type 2 diabetes mellitus without complications; E78.5 Hyperlipidemia, unspecified; I25.10 Atherosclerotic heart disease of native coronary artery without angina pectoris; N28.1 Cyst of kidney, acquired; Z82.3 Family history of stroke; Z82.49 Family history of ischemic heart disease and other diseases of the circulatory system; Z95.5 Presence of coronary angioplasty implant and graft; Z88.5 Allergy status to narcotic agent; Z87.891 Personal history of nicotine dependence
CPT/HCPCS: 71045; 74177; 80053; 81001; 83690; 84484; 85025; 93005; 96360; 99283; J7030; Q9967; A4216

== ENCOUNTER → 2020-04-29 10:34 | Outpatient (CLI) | payer MEDICARE, OTHER, SELFPAY ==
[2020-04-29 11:21] LABS: Anion Gap 4 (5-15); BUN 16 mg/dL (7-18); Calcium,Total 9.5 mg/dL (8.5-10.1); Chloride 106 mmol/L (98-107); Creatinine, Serum 1.07 mg/dL (0.70-1.30); EST Glomerular Filtration Rate 71 mL/min (>60); Est Glom Filt Rate - Afr Amer 86 mL/min (>60); Glucose 69 mg/dL (74-106); Potassium 4.5 mmol/L (3.5-5.1); Sodium Level 140 mmol/L (136-145)
== END ==
PROVIDERS: PCP Family Medicine; Referring Provider Internal Medicine Cardiovascular Disease; Visit Provider Internal Medicine Cardiovascular Disease
DX: E11.9 Type 2 diabetes mellitus without complications (principal); I10 Essential (primary) hypertension
CPT/HCPCS: 36415; 80048

== ENCOUNTER → 2020-06-18 09:54 | Outpatient (CLI) | payer MEDICARE, OTHER, SELFPAY ==
[2020-06-17 13:03] VITALS: BMI 28.1
[2020-06-18 10:17] LABS: Absolute Lymphocyte Count 1.46 X10^3/uL (0.83-4.51); Absolute Neutrophil Count 7.9 X10^3/uL (2.0-7.7); Basophil% 0.9 % (0-1); Eosinophil# 0.54 X10^3/uL; Eosinophils% 4.8 % (0-5); Hematocrit 38.8 % (40-54); Hemoglobin 12.6 g/dL (13.0-16.5); Lymphocyte # 1.46 X10^3/ul (4.0); Lymphocyte % 13.1 % (19-41); Mean Corp Hgb Conc 32.5 g/dL (32-36); Mean Corpuscular Hgb 30.7 pg (27.0-32.0); Mean Corpuscular Volume 94.6 fL (80-94); Mean Platelet Vol. 8.9 fl (6.2-12.0); Monocyte% 9.8 % (0-10); NRBC Flagged by Analyzer 0 % (0-5); Neutrophil # 7.91 X10^3/uL (2.7-7.7); Neutrophil % 70.9 % (47-70); Platelet Count 401 K/mm3 (150-450); RBC Distribution Width CV 12.2 % (11.6-14.6); RBC Distribution Width SD 42.5 fl (35.1-43.9); White Blood Count 11.2 K/mm3 (4.4-11.0)
[2020-06-18 11:12] LABS: AST(SGOT) 18 U/L (15-37); Alanine Aminotransfer ALT/SGPT 35 U/L (16-61); Albumin, Serum 3.3 g/dL (3.2-5.0); Alkaline Phosphatase 118 U/L (45-117); Bilirubin, Direct 0.16 mg/dL (0.00-0.30); Cholesterol 166 mg/dL (200); Globulin 4.1 g/dL (2.2-4.2); High Density Lipoprotein 52 mg/dL; Protein, Total 7.4 g/dL (6.4-8.2); Thyroid Stim Hormone (TSH) 1.04 uIU/mL (0.358-3.74); Triglycerides 147 mg/dL; Very Low Density Lipoprotein 29 mg/dL (5-40)
== END ==
PROVIDERS: PCP Family Medicine; Referring Provider Internal Medicine Cardiovascular Disease; Visit Provider Internal Medicine Cardiovascular Disease
DX: E78.00 Pure hypercholesterolemia, unspecified (principal); I25.10 Atherosclerotic heart disease of native coronary artery without angina pectoris; I10 Essential (primary) hypertension; R06.00 Dyspnea, unspecified; R53.83 Other fatigue; Z95.5 Presence of coronary angioplasty implant and graft
CPT/HCPCS: 36415; 80061; 80076; 84443; 85025

== ENCOUNTER → 2020-06-30 06:39 | Outpatient (CLI) | payer MEDICARE, OTHER, SELFPAY ==
[2020-06-17 13:03] VITALS: BMI 28.1
--- NOTE | 2020-06-30 06:43 | ECHOCS_ITS ---
Reason For Study: CAD Procedure This was a 2D Doppler, Color Flow transthoracic echocardiogram. The study was technically difficult. Contrast injection was performed. Exam performed in department. Left Ventricle Normal LV size. Left ventricular systolic function is normal. The estimated ejection fraction is 70 %. Diastolic function is indeterminate. No regional wall motion abnormalities noted. Right Ventricle Normal RV size. Normal systolic function. Atria The left atrium is mildly enlarged. Normal right atrium. No doppler evidence for ASD. Mitral Valve There is no mitral annular calcification. Normal mitral valve. Trivial mitral valve insufficiency. Tricuspid Valve Normal tricuspid valve. Mild tricuspid valve insufficiency. Right ventricular systolic pressure estimated to be 40 mmHg. Aortic Valve Trisinus/trileaflet aortic valve. Mild diffuse aortic valve thickening. Mild focal aortic valve calcification. Aortic sclerosis, no stenosis. Pulmonic Valve The pulmonic valve is not well visualized. Great Vessels Normal sized aortic root. Pericardium/Pleural Trivial pericardial effusion. There are no echocardiographic indications of cardiac tamponade. Medication Diluted definity 3.0ml given slow IV push to enhance endocardial definition. MMode/2D Measurements & Calculations LVIDd: 4.3 cm IVSd: 1.1 cm LVOT diam: 2.3 cm LVIDs: 2.8 cm LVPWd: 1.1 cm RVDd: 3.6 cm FS: 34.9 % LVOT area: 4.1 cm2 Ao root diam: 3.3 cm LAV(MOD-bp): 47.5 ml LA A4 area: 17.1 cm2 LAV(MOD-bp) Indexed: 21.6 ml/m2 LAV(MOD-sp2): 46.4 ml LAV(MOD-sp4): 43.8 ml LA dimension(2D): 3.6 cm RA A4 area: 15.3 cm2 Time Measurements MV dec time: 0.32 sec Doppler Measurements & Calculations MV E max eduardo: 54.7 cm/sec Lat Peak E' Eduardo: 6.5 cm/sec Med Peak E' Eduardo: 4.8 cm/sec MV A max eduardo: 75.1 cm/sec E/E' lat: 8.4 E/E' med: 11.5 MV E/A: 0.73 Ao V2 max: 163.7 cm/sec LV V1 max: 117.9 cm/sec TR max eduardo: 305.8 cm/sec Ao max P.7 mmHg LV V1 max P.6 mmHg TR max P.4 mmHg SETH(V,D): 2.9 cm2 Interpretation Summary The study was technically difficult. Contrast injection was performed. Left ventricular systolic function is normal. The estimated ejection fraction is 70 %. The left atrium is mildly enlarged. Trivial mitral valve insufficiency. Mild tricuspid valve insufficiency. Aortic sclerosis, no stenosis. Trivial pericardial effusion. There are no echocardiographic indications of cardiac tamponade. Right ventricular systolic pressure estimated to be 40 mmHg. Diastolic function is indeterminate. Ordering Physician: Flip Kramer Referring Physician: GEORGE SONG Performed By: Katelin Degroot, RDCS, RVT
--- NOTE | 2020-06-30 08:26 | STRESSREP ---
Stress Test Report Date: 06-30-2020 Procedure: Pharmacologic stress nuclear imaging study Indications: Shortness of breath/dyspnea on exertion; fatigue; CAD; PCI Consent: Per the patient Procedure: The patient underwent pharmacologic (Regadenoson 0.4mg ) evaluation with a peak heart rate of 99 beats per minute (69%predicted maximal heart rate) and a peak blood pressure of 126/70 mmHg. The baseline ECG demonstrated normal sinus rhythm. The peak pharmacologic ECG demonstrated no obvious ECG changes. There were no cardiac dysrhythmias pretest, during pharmacologic infusion, or recovery. There was no complaint of chest discomfort during pharmacologic infusion or recovery. The examination was discontinued secondary to completion of protocol. Impression: 1. Pharmacologic (Regadenoson) evaluation 2. Peak pharmacologic ECG with no obvious ECG changes. 3. There were no cardiac dysrhythmias pretest, during pharmacologic infusion, or recovery. 4. Nuclear images pending Myocardial perfusion imaging study: Technique: The patient was injected with 11.8 millicuries of technetium 99m Cardiolite and subsequently rest SPECT Cardiolite nuclear imaging was obtained in the horizontal long, vertical long, and short axis views. The patient underwent pharmacologic (Regadenoson) evaluation with a peak heart rate of 99 beats per minute (69% percent predicted maximal heart rate) and a peak blood pressure of 126/70 mmHg. The patient was injected with 33.6 millicuries of technetium 99m Cardiolite and subsequently stress SPECT Cardiolite nuclear imaging was obtained in the horizontal long, vertical long, and short axis views. A gated Cardiolite study at peak stress was obtained. Interpretation: Rest and stress SPECT Cardiolite nuclear imaging status post realignment, normalization, and attenuation correction demonstrate relative uniform tracer uptake and myocardial perfusion appearing within normal limits. There is end systolic thickening and brightening. The gated Cardiolite study demonstrates myocardial thickening and inward wall motion. The reported LVEF is 83%. Impression: 1. Rest and stress SPECT Cardiolite nuclear imaging demonstrate relative uniform tracer uptake and myocardial perfusion appearing within normal limits. 2. The gated Cardiolite study reports an LVEF of 83%. This note was generated with [employer] software. It may contain incorrect words, spelling, and punctuation that were not noted in checking the note before signing.
--- NOTE | 2020-06-30 09:16 | RAD_ITS ---
STUDY: X-RAY - CERVICAL SPINE REASON FOR EXAM: Male, 79 years old. Previous surgery in 1999, ? Laminectomy -- lightheaded, pain TECHNIQUE: 5 view(s) of the cervical spine were obtained including oblique views. COMPARISON: None FINDINGS: There are degenerative changes of the anterior atlantoaxial articulation. Normal odontoid process. Normal cervical lordosis. Mild anterior spondylosis at the C3-C4, C4-C5, C5-C6 and C6-C7 levels. Normal disc space heights. Normal visualized intervertebral neuroforamina. Calcification of the posterior nuchal ligament. RAD/Cerv Spine 4 or 5 Views IMPRESSION: Degenerative changes as described above. Electronically Signed: Cb Vaughn MD at 15:03 EST , Service support ,
== END ==
PROVIDERS: PCP Family Medicine; Referring Provider Internal Medicine Cardiovascular Disease; Visit Provider Internal Medicine Cardiovascular Disease
DX: I25.10 Atherosclerotic heart disease of native coronary artery without angina pectoris (principal); E78.00 Pure hypercholesterolemia, unspecified; I10 Essential (primary) hypertension; R06.00 Dyspnea, unspecified; R53.83 Other fatigue; Z95.5 Presence of coronary angioplasty implant and graft
CPT/HCPCS: 72050; 78452; 93017; 93306; A9500; Q9957; A4216; C8929; J2785

== ENCOUNTER → 2020-11-11 12:11 | Outpatient (CLI) | payer MEDICARE, OTHER, SELFPAY ==
[2020-11-11 07:34] VITALS: BMI 28.8
== END ==
PROVIDERS: PCP Family Medicine; Referring Provider Nurse Practitioner Acute Care; Visit Provider Nurse Practitioner Acute Care
DX: R05 Cough (principal)
CPT/HCPCS: 87070; 87205

== ENCOUNTER → 2021-01-11 10:40 | Outpatient (CLI) | payer MEDICARE, OTHER, SELFPAY ==
[2020-11-11 07:34] VITALS: BMI 28.8
--- NOTE | 2021-01-12 11:38 | PFT ---
INTRODUCTION: The patient is a 80-year-old male that presents for pulmonary function studies secondary to a diagnosis of dyspnea. Respiratory therapy reported good patient effort. Bronchodilators were used during testing INTERPRETATION: Forced expiration spirometry demonstrates no evidence of a large airways obstructive ventilatory defect with a postbronchodilator FEV1/FVC of 73% of predicted. There was no significant response to aerosolized bronchodilators, based upon strict ATS criteria. Spirograms are of good quality but do not plateau indicating slow emptying of the lungs. Body plethysmography was performed and revealed a decreased TLC to 5.42 L, 76% of predicted, indicative of a mild restrictive ventilatory impairment. Diffusing capacity by single breath CO is within normal limits. IMPRESSION: Isolated mild restrictive ventilatory impairment with preserved diffusing capacity.
== END ==
PROVIDERS: PCP Family Medicine; Referring Provider Nurse Practitioner Acute Care; Visit Provider Nurse Practitioner Acute Care
DX: R06.00 Dyspnea, unspecified (principal)
CPT/HCPCS: 94060; 94726; 94729

== ENCOUNTER → 2021-01-13 12:22 | Outpatient (CLI) | payer MEDICARE, OTHER, SELFPAY ==
[2020-11-11 07:34] VITALS: BMI 28.8
[2021-01-13 12:44] VITALS: PULSE 65; PULSE 67; PULSE 71; PULSE 74; PULSE 75; PULSE 76; PULSE 80; O2SAT 96; O2SAT 97; O2SAT 98
--- NOTE | 2021-01-15 10:07 | WT_ITS ---
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 Assistive device used: None Pre-test Oxygen Delivery Method Room Air Pulse Ox (%) 98 Pulse Rate (60-100 beats/min) 65 Dyspnea [place] Scale (0-10) 0 1st minute Oxygen Delivery Method Room Air Pulse Ox (%) 98 Pulse Rate (60-100 beats/min) 71 Dyspnea [place] Scale (0-10) 0 Number of Rests Taken 0 2nd minute Oxygen Delivery Method Room Air Pulse Ox (%) 98 Pulse Rate (60-100 beats/min) 74 Dyspnea [place] Scale (0-10) 0 Number of Rests Taken 0 3rd minute Oxygen Delivery Method Room Air Pulse Ox (%) 98 Pulse Rate (60-100 beats/min) 75 Dyspnea [place] Scale (0-10) 1 Number of Rests Taken 0 4th minute Oxygen Delivery Method Room Air Pulse Ox (%) 96 Pulse Rate (60-100 beats/min) 74 Dyspnea [place] Scale (0-10) 1 Number of Rests Taken 0 5th minute Oxygen Delivery Method Room Air Pulse Ox (%) 97 Pulse Rate (60-100 beats/min) 76 Dyspnea [place] Scale (0-10) 1 Number of Rests Taken 0 6th minute Oxygen Delivery Method Room Air Pulse Ox (%) 98 Pulse Rate (60-100 beats/min) 80 Dyspnea [place] Scale (0-10) 1 Number of Rests Taken 0 Post-test Oxygen Delivery Method Room Air Pulse Ox (%) 98 Pulse Rate (60-100 beats/min) 67 Dyspnea [place] Scale (0-10) 0 Full Laps Walked 19 Partial Lap, Number of Tiles Walked 22 Total Distance Walked (ft) 1143 Interpretation Interpretation: The patient ambulated 1143 feet over the course of 6 minutes beginning on room air without assistive devices. Pretesting oxygen saturation was noted to be 98% on room air. With ambulation, the carolyne oxygen saturation was 96%. There was no significant exertional oxygen desaturation. Recommendations Recommendations: There is no indication for the use of supplemental oxygen at this time.
== END ==
PROVIDERS: PCP Family Medicine; Referring Provider Nurse Practitioner Acute Care; Visit Provider Nurse Practitioner Acute Care
DX: R06.00 Dyspnea, unspecified (principal)
CPT/HCPCS: 94618

== ENCOUNTER → 2021-01-26 09:02 | Outpatient (CLI) | payer MEDICARE, OTHER, SELFPAY ==
[2021-01-26 10:04] LABS: AST(SGOT) 23 U/L (15-37); Alanine Aminotransfer ALT/SGPT 34 U/L (16-61); Albumin, Serum 3.2 g/dL (3.2-5.0); Alkaline Phosphatase 104 U/L (45-117); Bilirubin, Direct 0.19 mg/dL (0.00-0.30); Cholesterol 134 mg/dL (200); Globulin 3.9 g/dL (2.2-4.2); High Density Lipoprotein 53 mg/dL; Protein, Total 7.1 g/dL (6.4-8.2); Triglycerides 99 mg/dL; Very Low Density Lipoprotein 20 mg/dL (5-40)
== END ==
PROVIDERS: PCP Family Medicine; Referring Provider Internal Medicine Cardiovascular Disease; Visit Provider Internal Medicine Cardiovascular Disease
DX: E78.00 Pure hypercholesterolemia, unspecified (principal)
CPT/HCPCS: 36415; 80061; 80076

== ENCOUNTER 2021-01-30 01:18 | Emergency (ER) | payer MEDICARE, OTHER, SELFPAY ==
[2021-01-30 01:20] VITALS: BP 143/64; PULSE 57; RESP 18; TEMP 36.2; O2SAT 99; BMI 28.3
--- NOTE | 2021-01-30 02:13 | EDS_ITS ---
HPI History of Present Illness Chief Complaint: Other, Pain/Inj Narrative Narrative: 80-year-old male presenting with nausea which has resolved. He states he used Aspercreme with lidocaine on his neck and after he put this on he went to sleep. He started to smell this and it made him a little nauseous. His neck was burning so was washed that off. His was concerned that he might have severe allergic reaction so they came in for evaluation. Patient states that his nausea is resolved. He is not having any shortness of breath. He states he has chronic neck pain for which he sees pain management. He is scheduled for another neck injection soon. He denies any other symptoms such as rash, cough, abdominal pain, throat closing. [facility] Medical History Atherosclerotic heart disease of [place] coronary artery without angina pectoris Benign prostatic hypertrophy Coronary artery disease Dizziness and giddiness Dyspnea Essential hypertension Fatigue H/O appendicitis 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 nursing home use of drug Neck pain on left side REHAN (obstructive sleep apnea) Precordial chest pain Presence of stent in coronary artery (~09/08/10) PTSD (post-traumatic stress disorder) Pulmonary hypertension Pure hypercholesterolemia Restless legs syndrome (RLS) Shortness of breath Syncope and collapse Type II diabetes mellitus Home Medications amlodipine 5 mg PO BID 12/08/15 [History Last Taken Unknown] multivitamin 1 ea PO DAILY 12/08/15 [History Last Taken Unknown] fluoxetine 40 mg capsule 40 mg PO DAILY 07/04/18 [History Last Taken Unknown] aspirin 81 mg tablet,delayed release 81 mg PO DAILY #1 tab 09/18/19 [Rx Last Taken Unknown] tamsulosin 0.4 mg capsule 0.8 mg PO DAILY cap 09/18/19 [History Last Taken Unknown] oxycodone 5 mg PO Q6H PRN PRN 01/26/20 [History Last Taken Unknown] rosuvastatin 10 mg tablet 10 mg PO DAILY #90 tab 02/17/20 [Rx Last Taken Unknown ] nitroglycerin 0.4 mg sublingual tablet 0.4 mg SUBLINGUAL Q5-15M PRN #25 tab 03/17/20 [Rx Last Taken Unknown] acetaminophen 500 mg tablet 500 mg PO Q6H PRN 06/17/20 [History Last Taken Unknown] hydrochlorothiazide 25 mg tablet 12.5 mg PO BID tab 07/29/20 [History Last Taken Unknown] lisinopril 20 mg tablet 20 mg PO BID tab 01/29/21 [History Last Taken Unknown] propranolol 20 mg tablet 20 mg PO BID 01/29/21 [History Last Taken Unknown] Allergy/AdvReac Type Severity Reaction Status Date / Time acetaminophen [From Vicodin] Allergy Other Verified 01/29/21 12:48 hydrocodone [From Vicodin] Allergy Other Verified 01/29/21 12:48 orphenadrine Allergy Unknown Verified 01/29/21 12:48 pregabalin Allergy Swelling Verified 01/29/21 12:48 atorvastatin [From Lipitor] AdvReac Severe Intolerance Verified 01/29/21 12:48 ,Myalgias Family History Father CVA (cerebral vascular accident) Mother Cardiomegaly Brother CAD (coronary artery disease) Hx CABG and valve replacement Diabetes Brother History of heart valve replacement Brother Rheumatic fever Sister Hypertension Aortic aneurysm H/O aortic valve replacement Brother Cancer bladder Brother Thyroid disorder Surgical History History of appendectomy History of hydrocelectomy History of right hip replacement History of vasectomy hx cervical stenosis Presence of coronary angioplasty implant and graft (~09/08/10) S/P right knee arthroscopy Social History household members: spouse housing: house Smoking Status: Former smoker pack-years: 20 Tobacco: How many years used: 22 second hand exposure: No alcohol intake: never substance use type: does not use caffeine: Yes Type: carbonated beverages Number of servings: 1 and tea what type of physical activity do you participate in: none seatbelt use: always do you feel safe at home: Yes ROS ROS ED Constitutional Constitutional ED: Denies chills or fever(s) Eyes Eyes: Denies blurry vision or diplopia ENT ENT ED: Reports other Details: Throat burning ; Denies rhinorrhea Cardiovascular Cardiovascular: Denies chest pain or palpitations Respiratory/Chest Respiratory/Chest: Denies cough, dyspnea or sputum Gastrointestinal Gastrointestinal: Reports nausea; Denies abdominal pain, diarrhea or vomiting Genitourinary Genitourinary ED: Denies dysuria or hematuria Musculoskeletal Musculoskeletal: Reports neck pain; Denies arthralgias or myalgias Integumentary Denies abscess or rash Neurologic Neurologic: Denies headache(s) or weakness EXAM Physical Exam Const Vital Signs: 01/30/21 01:20 Temperature 97.1 F L Temperature Source Temporal Pulse Rate 57 L Respiratory Rate 18 Blood Pressure 143/64 H Blood Pressure Mean 90 Pulse Ox 99 Oxygen Delivery Method Room Air Positive well nourished General Appearance ED: NAD HEENT Reports moist mucous membranes Negative for trauma Eyes PERRL and EOMs intact bilaterally Neck no lymphadenopathy and supple Neck Narrative: No stridor. Oropharynx is patent without erythema. Tongue is not swollen. No sublingual edema. [place] mucosa is normal. Resp normal respiratory effort and clear to auscultation bilaterally Cardio regular rate and regular rhythm Neuro oriented x3 and CN's II-XII intact bilaterally Sensorium / Orientation: alert Skin Skin Narrative: Mild erythema to the back of the neck. This is not cellulitic in nature. Is not tender to palpation. MDM MDM MDM Narrative Medical decision making narrative: Patient presenting with localized reaction to Aspercreme with lidocaine. He states he did wash it off but he was concerned for severe reaction. Patient has mild erythema to the back of the neck. He is not have any signs of anaphylaxis or diffuse allergic reaction. Patient states that he still wearing the same shirt that he had on when he 1st put on the Aspercreme. I recommended that when he gets home he change his shirts and washes his neck again. Patient to return precautions. Impression: 1. Localized allergic reaction Discharge Plan Triage Chief Complaint: Other, Pain/Inj ED Provider: Angel Mix Dx/Rx/DC Orders Instructions: ED ADVERSE DRUG REACTION Allergic Prescriptions: No Action fluoxetine [Prozac] 40 mg capsule 40 mg PO DAILY RF: 0 aspirin 81 mg tablet,delayed release (DR/EC) 81 mg PO DAILY Qty: 1 RF: 0 acetaminophen [Tylenol Extra Strength] 500 mg tablet 500 mg PO Q6H PRN (Reason: Pain) RF: 0 hydrochlorothiazide 25 mg tablet 12.5 mg PO BID RF: 0 propranolol 20 mg tablet 20 mg PO BID RF: 0 lisinopril 20 mg tablet 20 mg PO BID RF: 0 multivitamin 1 EACH tablet 1 ea PO DAILY RF: 0 amlodipine 5 MG tablet 5 mg PO BID RF: 0 tamsulosin 0.4 mg capsule 0.8 mg PO DAILY RF: 0 oxycodone 5 MG tablet 5 mg PO Q6H PRN PRN (Reason: Pain Score 1-10/10) RF: 0 rosuvastatin 10 mg tablet 10 mg PO DAILY Qty: 90 RF: 3 nitroglycerin 0.4 mg tablet, sublingual 0.4 mg SUBLINGUAL Q5-15M PRN (Reason: chest pain) Qty: 25 RF: 1 Primary Care Provider: Harvinder Vaughan Referrals: Harvinder Vaughan MD [Primary Care Provider] - Disposition Disposition: Home, Self Care Discharge Date/Time: 01/30/21 02:15
== END 2021-01-30 02:15 | disposition home or self-care (01) ==
LOC: ED 02:14
PROVIDERS: Emergency Provider Student in an Organized Health Care Education/Training Program; PCP Family Medicine
DX: T78.40XA Allergy, unspecified, initial encounter (principal); E11.51 Type 2 diabetes mellitus with diabetic peripheral angiopathy without gangrene; E78.00 Pure hypercholesterolemia, unspecified; G47.33 Obstructive sleep apnea (adult) (pediatric); G89.29 Other chronic pain; I10 Essential (primary) hypertension; I25.10 Atherosclerotic heart disease of native coronary artery without angina pectoris; F43.10 Post-traumatic stress disorder, unspecified; I27.20 Pulmonary hypertension, unspecified; Z79.82 Long term (current) use of aspirin; Z95.5 Presence of coronary angioplasty implant and graft; Z87.891 Personal history of nicotine dependence
CPT/HCPCS: 99282

== ENCOUNTER 2021-06-28 19:16 | Emergency (ER) | payer MEDICARE, OTHER, SELFPAY ==
[2021-06-28 19:17] VITALS: BP 133/73; PULSE 81; RESP 18; TEMP 36.6; O2SAT 99; BMI 28.3
--- NOTE | 2021-06-28 19:23 | EKG12_ITS ---
Test Reason : CP Blood Pressure : / mmHG Vent. Rate : 080 BPM Atrial Rate : 080 BPM P-R Int : 180 ms QRS Dur : 086 ms QT Int : 348 ms P-R-T Axes : 070 037 070 degrees QTc Int : 401 ms Normal sinus rhythm Normal ECG Confirmed by EDER FUNEZ, GERALD ([id number]), clinical editor NARAYAN ERAZO ([id number]) on 06/29/2021 11:29:13 AM Referred By: NO PHYS Confirmed By:GERALD GAINES MD
[2021-06-28 19:37] LABS: Absolute Lymphocyte Count 1.04 X10^3/uL (0.83-4.51); Absolute Neutrophil Count 11.4 X10^3/uL (2.0-7.7); Basophil# 0.06 X10^3/uL; Basophil% 0.4 % (0-1); Eosinophil# 0.06 X10^3/uL; Eosinophils% 0.4 % (0-5); Hematocrit 35.1 % (40-54); Lymphocyte # 1.04 X10^3/ul (0.83-4.51); Lymphocyte % 7.5 % (19-41); Mean Corp Hgb Conc 34.2 g/dL (32-36); Mean Corpuscular Hgb 31.7 pg (27.0-32.0); Mean Corpuscular Volume 92.9 fL (80-94); Mean Platelet Vol. 9.8 fl (6.2-12.0); Monocyte# 1.28 X10^3/uL; Monocyte% 9.2 % (0-10); NRBC Flagged by Analyzer 0 % (0-5); Neutrophil # 11.38 X10^3/uL (2.7-7.7); Neutrophil % 82.2 % (47-70); Platelet Count 322 K/mm3 (150-450); RBC Distribution Width CV 12.1 % (11.6-14.6); RBC Distribution Width SD 41.3 fl (35.1-43.9); Red Blood Count 3.78 M/mm3 (4.6-6.2); White Blood Count 13.9 K/mm3 (4.4-11.0)
[2021-06-28 19:42] LABS: Bacteria 0 SEEN /hpf (None Seen); Mucous, Urine 0 SEEN /hpf (<or=2+); Red Blood Cells-Urine 0 SEEN /hpf (0-5)
[2021-06-28 19:44] LABS: Color, Urine Yellow (Yellow); Glucose, Dipstick Normal (Normal); Ketone-Dipstick Negative (Negative); Leukocyte Esterase-Dipstick 100 /ul (Negative); Nitrite-Dipstick Negative (Negative); Occult Blood-Urine Negative /ul (Negative); Protein-Dipstick 15 mg/dl (Negative); Urine Bilirubin Dipstick Negative (Negative); Urine Clarity Clear (Clear); Urine Urobilinogen Normal (Normal); Urine pH 6.5 (5.0 - 8.0)
[2021-06-28 19:49] LABS: Anion Gap 8 (5-15); BUN 23 mg/dL (7-18); BUN/Creat Ratio 16.4 RATIO (10-20); Calcium,Total 8.8 mg/dL (8.5-10.1); Chloride 100 mmol/L (98-107); EST Glomerular Filtration Rate 52 mL/min (>60); Est Glom Filt Rate - Afr Amer 63 mL/min (>60); Estimated Creatinine Clearance 48.35 ml/min; Glucose 138 mg/dL (74-106); Potassium 4.2 mmol/L (3.5-5.1); Sodium Level 131 mmol/L (136-145); Troponin-I HS 6 pg/mL (3.0-78.0)
--- NOTE | 2021-06-28 20:00 | RAD_ITS ---
STUDY: X-RAY CHEST REASON FOR EXAM: Male, 80 years old. CHEST PAIN HYPERTENSION, HEADACHE AND CHEST PAIN, DIZZINESS TECHNIQUE: XR Chest 1 View COMPARISON: 03/13/2020 FINDINGS: There is no demonstrated pleural abnormality. Normal size heart. Normal mediastinum and luke. Normal visualized pulmonary arteries. There is atherosclerotic calcification of the aortic arch with tortuosity. There are diffuse degenerative changes of the visualized thoracic spine. There is degenerative osteoarthritis of the bilateral shoulders. There is no demonstrated abnormality of the visualized soft tissue structures of the upper abdomen. RAD/Chest 1 View (Portable) IMPRESSION: There are no acute findings. Electronically Signed: Thompson Ibanez MD at 20:16 EST ,
[2021-06-28 20:39] LABS: Amorphous Sediment 1+ URATE; Squamous Epithelial Cells - UA 0-5 SEEN /hpf (0-5); White Blood Cells 0-5 SEEN /hpf (0-5)
[2021-06-28 20:44] VITALS: PULSE 69; RESP 17
[2021-06-28 21:06] VITALS: PULSE 65; RESP 20
[2021-06-28] MEDS: Cephalexin 250 MG Capsule 500 MG PO (22:18)
--- NOTE | 2021-06-28 22:41 | EDS_ITS ---
HPI History of Present Illness Chief Complaint: General Illness Informant: patient and spouse/S.O. Narrative Narrative: Patient's primary complaint is urinary frequency dysuria and urgency. He does not feel as though he fully empties his bladder. He went probably 10- 15 times last night. It corona. He is also had a fever at home of about 100.5. He states he has some dyspnea but he has this all the time and is not new. He is not having chest pain he is not having headache. He does have a little bit of lightheadedness and weakness but he states he has been having lightheadedness with standing up for months or years. The part that is new is the dysuria and frequency with fever. He had a cystoscopy 1 week ago. He is now scheduled for a TURP. He was having problems urinating before the cystoscopy but is gotten markedly worse after in the last few days have added a fever. No myalgias. No cough. No skin infections. No diarrhea. He is eating and drinking well. Nothing really makes his symptoms better or worse. 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 Neck pain on left side REHAN (obstructive sleep apnea) Precordial chest pain Presence of stent in coronary artery (~09/08/10) PTSD (post-traumatic stress disorder) Pulmonary hypertension Pure hypercholesterolemia Restless legs syndrome (RLS) Shortness of breath Syncope and collapse Type II diabetes mellitus Home Medications multivitamin 1 ea PO DAILY 12/08/15 [History Last Taken Unknown] fluoxetine 40 mg capsule 40 mg PO DAILY 07/04/18 [History Last Taken Unknown] aspirin 81 mg tablet,delayed release 81 mg PO DAILY #1 tab 09/18/19 [Rx Last Taken Unknown] tamsulosin 0.4 mg capsule 0.8 mg PO DAILY cap 09/18/19 [History Last Taken Unknown] oxycodone 5 mg PO Q6H PRN PRN 01/26/20 [History Last Taken Unknown] nitroglycerin 0.4 mg sublingual tablet 0.4 mg SUBLINGUAL Q5-15M PRN #25 tab 03/17/20 [Rx Last Taken Unknown] acetaminophen 500 mg tablet 500 mg PO Q6H PRN 06/17/20 [History Last Taken Unknown] propranolol 20 mg tablet 20 mg PO BID #180 tab 02/23/21 [Rx Last Taken Unknown] lisinopril 10 mg tablet 10 mg PO BID #180 tab 03/01/21 [Rx Last Taken Unknown] rosuvastatin 10 mg tablet 10 mg PO DAILY #90 tab 03/08/21 [Rx Last Taken Un known] fluticasone propionate 50 mcg/actuation nasal spray,suspension 2 spray INTRANASAL DAILY #18.2 ml 03/14/21 [Rx Last Taken Unknown] amlodipine 5 mg tablet 5 mg PO DAILY tab 03/17/21 [History Last Taken Unknown] cyclobenzaprine 10 mg tablet 10 mg PO TID PRN #1 tab 03/17/21 [Rx Last Taken Unknown] hydrochlorothiazide 25 mg tablet 12.5 mg PO BID #90 tab 05/18/21 [Rx Last Taken Unknown] cephalexin 500 mg PO Q6H 10 Days #40 cap 06/28/21 [Rx Last Taken Unknown] Allergy/AdvReac Type Severity Reaction Status Date / Time acetaminophen [From Vicodin] Allergy Other Verified 06/28/21 19:20 hydrocodone [From Vicodin] Allergy Other Verified 06/28/21 19:20 orphenadrine Allergy Unknown Verified 06/28/21 19:20 pregabalin Allergy Swelling Verified 06/28/21 19:20 atorvastatin [From Lipitor] AdvReac Severe Intolerance Verified 06/28/21 19:20 ,Myalgias Family History Father CVA (cerebral vascular accident) Mother Cardiomegaly Brother CAD (coronary artery disease) Hx CABG and valve replacement Diabetes Brother History of heart valve replacement Brother Rheumatic fever Sister Hypertension Aortic aneurysm H/O aortic valve replacement Brother Cancer bladder Brother Thyroid disorder Surgical History History of appendectomy History of hydrocelectomy History of right hip replacement History of vasectomy hx cervical stenosis Presence of coronary angioplasty implant and graft (~09/08/10) S/P right knee arthroscopy Social History household members: spouse housing: house Smoking Status: Former smoker pack-years: 20 Tobacco: How many years used: 22 second hand exposure: No alcohol intake: never substance use type: does not use caffeine: Yes Type: carbonated beverages Number of servings: 1 and tea what type of physical activity do you participate in: none seatbelt use: always do you feel safe at home: Yes ROS ROS ED Constitutional Constitutional ED: Reports chills, fever(s) and subjective Eyes Eyes: Denies blurry vision ENT ENT ED: Denies ear pain or rhinorrhea Cardiovascular Cardiovascular: Denies chest pain Respiratory/Chest Respiratory/Chest: Denies cough, dyspnea or sputum Gastrointestinal Gastrointestinal: Denies abdominal pain, nausea or vomiting Genitourinary Genitourinary ED: Reports dysuria, urinary frequency and other; Denies hematuria Musculoskeletal Musculoskeletal: Denies back pain or neck pain Integumentary Denies rash Neurologic Neurologic: Denies headache(s) or weakness Endocrine Endocrinology: Denies polydipsia or polyuria Allergic/Immunologic Allergic/Immunologic ED: Denies mouth swelling or urticaria EXAM Physical Exam Const Vital Signs: 06/28/21 19:17 06/28/21 20:44 06/28/21 21:06 Temperature 97.9 F Temperature Source Temporal Pulse Rate 81 69 65 Respiratory Rate 18 17 20 H Respiratory Effort Normal Non-Labored Respiratory Pattern Normal Blood Pressure 133/73 H Blood Pressure Mean 93 Pulse Ox 99 Oxygen Delivery Method 06/28/21 22:43 06/28/21 23:00 Temperature Temperature Source Pulse Rate 64 66 Respiratory Rate 14 25 H Respiratory Effort Respiratory Pattern Blood Pressure Blood Pressure Mean Pulse Ox 99 99 Oxygen Delivery Method Room Air Room Air Positive well nourished and well developed General Appearance ED: well developed and NAD; Negative for cyanotic or diaphoretic HEENT Reports moist mucous membranes Eyes General Eye ED: Negative for pale conjunctiva or scleral icterus Neck no JVD Chest Wall inspection of chest normal Resp normal respiratory effort Cardio regular rate and regular rhythm GI normal to inspection, nondistended, normoactive bowel sounds and non-tender GI Narrative: I do not feel he markedly distended bladder. Palpation: soft Back/Spine no CVA tenderness Neuro oriented x3 Sensorium / Orientation: alert Psych mental status grossly normal Skin no rashes or lesions noted MDM MDM MDM Narrative Medical decision making narrative: Patient does have an elevated white count. Hemoglobin is mildly low. Electrolytes show minimal elevation in creatinine. Urine showed leukocyte Estrace but did not have a lot of other convincing evidence of UTI. However, I am concerned with his dysuria, frequency, fever, elevated white count. He also had instrumentation a week ago. I will treat as though he could have a UTI pending cultures. He also had post void residual about 300 so he is not emptying. We will place a catheter. I still think we can get him home on antibiotics pending culture and follow-up with his urologist. Catheter was placed without difficulty. He does have some mildly pale urine. He does feel less pressure. We discussed reasons to return. I explained that we will put him on antibiotics pending culture. He may need change in antibiotics or may need them stopped. Patient's Covid is also negative. There is no symptom or finding consistent with another infection. Lab Data Attestation: I reviewed the patient's lab results. Labs: Laboratory Results - last 24 hr 06/28/21 06/28/21 06/28/21 18:36 19:20 19:20 WBC 13.9 H RBC 3.78 L Hgb 12.0 L Hct 35.1 L MCV 92.9 MCH 31.7 MCHC 34.2 RDW Std Deviation 41.3 RDW Coeff of Guido 12.1 Plt Count 322 MPV 9.8 Immature Gran % (Auto) 0.300 Neut % (Auto) 82.2 H Lymph % (Auto) 7.5 L [place] % (Auto) 9.2 Eos % (Auto) 0.4 Baso % (Auto) 0.4 Absolute Neuts (auto) 11.4 H Absolute Lymphs (auto) 1.04 Nucleated RBC % 0 Sodium 131 L Potassium 4.2 Chloride 100 Carbon Dioxide 23.0 Anion Gap 8 BUN 23 H Creatinine 1.40 H Estim Creat Clear Calc 48.35 Est GFR (MDRD) Af Amer 63 Est GFR (MDRD) Non-Af 52 L BUN/Creatinine Ratio 16.4 Glucose 138 H Calcium 8.8 Troponin I High Sens 6 Urine Color Yellow Urine Clarity Clear Urine pH 6.5 Ur Specific [place] 1.010 Urine Protein 15 H Urine Glucose (UA) Normal Urine Ketones Negative Urine Occult Blood Negative Urine Nitrite Negative Urine Bilirubin Negative Urine Urobilinogen Normal Ur Leukocyte Esterase 100 H Urine RBC 0 SEEN Urine WBC 0-5 SEEN Ur Squamous Epith Cells 0-5 SEEN Amorphous Sediment 1+ URATE Urine Bacteria 0 SEEN Urine Mucus 0 SEEN Radiography Diagnostic Testing: Clinical Impression(s) from Imaging Studies Chest X-Ray 06/28/21 20:00 IMPRESSION: There are no acute findings. Electronically Signed: Thompson Ibanez MD at 20:16 EST Reading Location ID and State: [facility] / [place] , Service support , Discharge Plan Triage Chief Complaint: General Illness ED Provider: Sriram Smith Dx/Rx/DC Orders Clinical Impression: Dysuria, Acute urinary retention Instructions: Urinary Tract Infections in Men, ED Clark Catheter, Care Prescriptions: New cephalexin 500 mg capsule 500 mg PO Q6H 10 Days Qty: 40 RF: 0 No Action fluoxetine [Prozac] 40 mg capsule 40 mg PO DAILY RF: 0 aspirin 81 mg tablet,delayed release (DR/EC) 81 mg PO DAILY Qty: 1 RF: 0 acetaminophen [Tylenol Extra Strength] 500 mg tablet 500 mg PO Q6H PRN (Reason: Pain) RF: 0 multivitamin 1 EACH tablet 1 ea PO DAILY RF: 0 tamsulosin 0.4 mg capsule 0.8 mg PO DAILY RF: 0 oxycodone 5 MG tablet 5 mg PO Q6H PRN PRN (Reason: Pain Score 1-10/10) RF: 0 nitroglycerin 0.4 mg tablet, sublingual 0.4 mg SUBLINGUAL Q5-15M PRN (Reason: chest pain) Qty: 25 RF: 1 propranolol 20 mg tablet 20 mg PO BID Qty: 180 RF: 3 lisinopril 10 mg tablet 10 mg PO BID Qty: 180 RF: 3 rosuvastatin 10 mg tablet 10 mg PO DAILY Qty: 90 RF: 3 fluticasone propionate 50 mcg/actuation spray,suspension 2 spray intranasal DAILY Qty: 18.2 RF: 4 cyclobenzaprine 10 mg tablet 10 mg PO TID PRN (Reason: muscle spasm) Qty: 1 RF: 0 amlodipine 5 mg tablet 5 mg PO DAILY RF: 0 hydrochlorothiazide 25 mg tablet 12.5 mg PO BID Qty: 90 RF: 4 Primary Care Provider: Harvinder Vaughan Referrals: Jalen Ibarra MD [STAFF PHYSICIAN] - 2 Days Harvinder Vaughan MD [Primary Care Provider] - Disposition Disposition: Home, Self Care
[2021-06-28 22:43] VITALS: PULSE 64; RESP 14; O2SAT 99
[2021-06-28 23:00] VITALS: PULSE 66; RESP 25; O2SAT 99
== END 2021-06-28 23:24 | disposition home or self-care (01) ==
PROVIDERS: Emergency Provider Emergency Medicine; PCP Family Medicine; Visit Provider Emergency Medicine
DX: R30.0 Dysuria (principal); E11.9 Type 2 diabetes mellitus without complications; R33.9 Retention of urine, unspecified; I25.10 Atherosclerotic heart disease of native coronary artery without angina pectoris; E78.00 Pure hypercholesterolemia, unspecified; R50.9 Fever, unspecified; D72.829 Elevated white blood cell count, unspecified; Z87.891 Personal history of nicotine dependence; I10 Essential (primary) hypertension; R82.81 Pyuria; R39.15 Urgency of urination
CPT/HCPCS: 51702; 99284; 71045; 80048; 81001; 84484; 85025; 87086; 87426; 93005; A4216

== ENCOUNTER 2021-06-29 16:40 | Inpatient (IN) | payer MEDICARE, OTHER, SELFPAY ==
[2021-06-29] VITALS (7 sets, daily range): BP systolic 132–178; BP diastolic 62–69; PULSE 75–94; RESP 19–22; TEMP 37.6–39.4; O2SAT 94–96; BMI 29.5; BMI 28.3
--- NOTE | 2021-06-29 16:54 | EKG12_ITS ---
Test Reason : COMPLAINT Blood Pressure : / mmHG Vent. Rate : 088 BPM Atrial Rate : 088 BPM P-R Int : 184 ms QRS Dur : 090 ms QT Int : 334 ms P-R-T Axes : 056 001 059 degrees QTc Int : 404 ms Normal sinus rhythm Normal ECG Confirmed by WALDEMAR FUNEZ, SHIRLEY ([id number]), department editor NARAYAN ERAZO ([id number]) on 06/30/2021 9:46:58 AM Referred By: RONI Confirmed By:SHIRLEY MEDEIROS MD
--- NOTE | 2021-06-29 16:57 | EX.ED.DYSGE1 ---
HPI History of Present Illness Chief Complaint: Complaint Detail of Chief Complaint: Fever, chills Informant: patient Onset/Context/Timing Onset: Today Context: Sudden Onset Timing: Continuous Current Severity: Mild Maximum Severity: Moderate Worsened by: Nothing Relieved by: Nothing Associated Symptoms Associated Symptoms: Nausea Narrative Narrative: Patient is an elderly male with history of urinary retention. He was seen yesterday for urinary retention had a Clark placed. He was placed on cephalexin. He is taken 2 doses of cephalexin. Urine revealed leukoesterase with no bacteria. White count was elevated 13.9. He denies headache, visual, ocular auditory symptoms. He denies photophobia, neck stiffness or neck pain. He denies ear pain or decreased hearing. Denies rhinorrhea, congestion or postnasal drainage. He denies sore throat. He denies shortness of breath or cough. He denies chest discomfort. He does report mild nausea. He denies vomiting or diarrhea. He presently has an indwelling Clark. He has no suprapubic tenderness. He denies history of prostatitis. Prior similar symptoms: Yes Recent Illness[facility] Medical History Atherosclerotic heart disease of [place] coronary artery without angina pectoris Benign prostatic hypertrophy Coronary artery disease Dizziness and giddiness Dyspnea Essential hypertension Fatigue H/O appendicitis 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 [place] use of drug Neck pain on left side REHAN (obstructive sleep apnea) Precordial chest pain Presence of stent in coronary artery (~09/08/10) PTSD (post-traumatic stress disorder) Pulmonary hypertension Pure hypercholesterolemia Restless legs syndrome (RLS) Shortness of breath Syncope and collapse Type II diabetes mellitus Home Medications multivitamin 1 ea PO DAILY 12/08/15 [History Last Taken Unknown] fluoxetine 40 mg capsule 40 mg PO DAILY 07/04/18 [History Last Taken Unknown] aspirin 81 mg tablet,delayed release 81 mg PO DAILY #1 tab 09/18/19 [Rx Last Taken Unknown] tamsulosin 0.4 mg capsule 0.8 mg PO DAILY cap 09/18/19 [History Last Taken Unknown] oxycodone 5 mg PO Q6H PRN PRN 01/26/20 [History Last Taken Unknown] nitroglycerin 0.4 mg sublingual tablet 0.4 mg SUBLINGUAL Q5-15M PRN #25 tab 10/27/20 [Rx Last Taken Unknown] acetaminophen 500 mg tablet 500 mg PO Q6H PRN 06/17/20 [History Last Taken Unknown] propranolol 20 mg tablet 20 mg PO BID #180 tab 02/23/21 [Rx Last Taken Unknown] lisinopril 10 mg tablet 10 mg PO BID #180 tab 03/01/21 [Rx Last Taken Unknown] rosuvastatin 10 mg tablet 10 mg PO DAILY #90 tab 03/08/21 [Rx Last Taken Unknown] fluticasone propionate 50 mcg/actuation nasal spray,suspension 2 spray INTRANASAL DAILY #18.2 ml 03/14/21 [Rx Last Taken Unknown] amlodipine 5 mg tablet 5 mg PO DAILY tab 03/17/21 [History Last Taken Unknown] cyclobenzaprine 10 mg tablet 10 mg PO TID PRN #1 tab 03/17/21 [Rx Last Taken Unknown] hydrochlorothiazide 25 mg tablet 12.5 mg PO BID #90 tab 05/18/21 [Rx Last Taken Unknown] cephalexin 500 mg PO Q6H 10 Days #40 cap 06/28/21 [Rx Last Taken Unknown] Allergy/AdvReac Type Severity Reaction Status Date / Time acetaminophen [From Vicodin] Allergy Other Verified 06/29/21 16:49 hydrocodone [From Vicodin] Allergy Other Verified 06/29/21 16:49 orphenadrine Allergy Unknown Verified 06/29/21 16:49 pregabalin Allergy Swelling Verified 06/29/21 16:49 atorvastatin [From Lipitor] AdvReac Severe Intolerance Verified 06/29/21 16:49 ,Myalgias Family History Father CVA (cerebral vascular accident) Mother Cardiomegaly Brother CAD (coronary artery disease) Hx CABG and valve replacement Diabetes Brother History of heart valve replacement Brother Rheumatic fever Sister Hypertension Aortic aneurysm H/O aortic valve replacement Brother Cancer bladder Brother Thyroid disorder Surgical History History of appendectomy History of hydrocelectomy History of right hip replacement History of vasectomy hx cervical stenosis Presence of coronary angioplasty implant and graft (~09/08/10) S/P right knee arthroscopy Social History household members: spouse housing: house Smoking Status: Former smoker pack-years: 20 Tobacco: How many years used: 22 second hand exposure: No alcohol intake: never substance use type: does not use caffeine: Yes Type: carbonated beverages Number of servings: 1 and tea what type of physical activity do you participate in: none seatbelt use: always do you feel safe at home: Yes ROS ROS ED Constitutional Constitutional ED: Reports chills, fever(s) and sweats; Denies weight loss Eyes Eyes: Denies blurry vision, change in vision or diplopia ENT ENT ED: Denies ear pain, rhinorrhea or sore throat Cardiovascular Cardiovascular: Denies chest pain, orthopnea, palpitations or racing heartbeat Respiratory/Chest Respiratory/Chest: Denies cough, dyspnea, dyspnea on exertion or orthopnea Gastrointestinal Gastrointestinal: Reports nausea; Denies abdominal pain, constipation, diarrhea or vomiting Genitourinary Genitourinary ED: Denies dysuria, hematuria or urinary frequency Musculoskeletal Musculoskeletal: Denies arthralgias, back pain, myalgias or neck pain Integumentary Denies abscess, Abrasions or rash Neurologic Neurologic: Denies headache(s), paresthesias or weakness Psychiatric Psychiatric: Denies anxiety or depression Endocrine Endocrinology: Denies polydipsia, polyphagia or polyuria Allergic/Immunologic Allergic/Immunologic ED: Denies mouth swelling, tongue swelling or urticaria EXAM Physical Exam Const Vital Signs: 06/29/21 16:42 06/29/21 16:47 06/29/21 16:59 Temperature 103 F H 103 F H 103 F H Temperature Source Oral Oral Oral Pulse Rate 94 94 92 Respiratory Rate 22 H 21 H 19 H Blood Pressure 178/62 H 178/62 H 178/62 H Blood Pressure Mean 100 100 100 Pulse Ox 94 96 95 Oxygen Delivery Method Room Air Room Air Room Air 06/29/21 18:03 Temperature 103 F H Temperature Source Oral Pulse Rate 84 Respiratory Rate 20 H Blood Pressure 155/69 H Blood Pressure Mean 97 Pulse Ox 94 Oxygen Delivery Method Room Air Positive well nourished and well developed General Appearance ED: well developed and NAD; Negative for cyanotic, diaphoretic or pallor HEENT Reports TM's clear and dry mucous membranes Negative for trauma or tenderness Tympanic Membrane ED: Yes TM's clear Mouth ED: Yes dry mucous membranes Mouth: dry mucous membranes Eyes PERRL and EOMs intact bilaterally General Eye ED: Negative for pale conjunctiva or scleral icterus Neck no lymphadenopathy, supple and no JVD Chest Wall inspection of chest normal and palpation of chest normal Resp normal respiratory effort and clear to auscultation bilaterally GI normal to inspection, nondistended, normoactive bowel sounds; Negative for non-tender or non-distended Palpation: soft Narrative: Patient has an indwelling Clark. There is no discharge or drainage noted. Urine is dark and appears concentrated. Back/Spine no CVA tenderness General Back: Negative for CVA tenderness Cervical Spine: Negative for cervical spine tenderness Thoracic Spine / Upper Back: Negative for thoracic spinal tenderness or paraspinal muscle tenderness Extremity normal to inspection General Extremety ED: Negative for edema or tenderness General Extremity: Negative for edema Neuro oriented x3 and CN's II-XII intact bilaterally Sensorium / Orientation: alert Psych mental status grossly normal Skin no rashes or lesions noted and no wounds General Skin Exam: Negative for jaundice or pallor MDM MDM MDM Narrative Medical decision making narrative: Patient has 3 sirs criteria. With a temperature of 103.0 ?F will treat with Tylenol. Urine culture was obtained. He was started on Rocephin. He states he is taken 2 doses of cephalexin that he was prescribed. He was prescribed 500 mg. Patient will require admission. Lab Data Attestation: I reviewed the patient's lab results. Labs: Laboratory Results - last 24 hr 06/29/21 06/29/21 06/29/21 16:50 16:50 16:50 WBC 22.9 H RBC 3.42 L Hgb 11.4 L Hct 31.6 L MCV 92.4 MCH 33.3 H MCHC 36.1 H D RDW Std Deviation 41.7 RDW Coeff of Guido 12.3 Plt Count 275 MPV 9.5 Immature Gran % (Auto) 0.600 Neut % (Auto) 87.1 H Lymph % (Auto) 2.9 L [place] % (Auto) 9.1 Eos % (Auto) 0.0 Baso % (Auto) 0.3 Absolute Neuts (auto) 19.9 H Absolute Lymphs (auto) 0.66 L Nucleated RBC % 0 Differential Comment SEE COMMENT Diff Path Review May foll Platelet Estimate ADEQUATE RBC Morphology N CHROM Anisocytosis RARE Macrocytosis RARE PT 14.8 INR 1.2 APTT 33.1 Sodium 131 L Potassium 4.1 Chloride 98 Carbon Dioxide 26.0 Anion Gap 7 BUN 24 H Creatinine 1.48 H Estim Creat Clear Calc 45.74 Est GFR (MDRD) Af Amer 59 L Est GFR (MDRD) Non-Af 49 L BUN/Creatinine Ratio 16.2 Glucose 146 H Lactic Acid Calcium 8.1 L Total Bilirubin 0.80 AST 19 ALT 21 Alkaline Phosphatase 96 Total Protein 6.9 Albumin 2.9 L Globulin 4.0 Albumin/Globulin Ratio 0.7 L Urine Color Urine Clarity Urine pH Ur Specific [place] Urine Protein Urine Glucose (UA) Urine Ketones Urine Occult Blood Urine Nitrite Urine Bilirubin Urine Urobilinogen Ur Leukocyte Esterase Urine RBC Urine WBC Ur Squamous Epith Cells Urine Bacteria Urine Mucus 06/29/21 06/29/21 16:50 18:00 WBC RBC Hgb Hct MCV MCH MCHC RDW Std Deviation RDW Coeff of Guido Plt Count MPV Immature Gran % (Auto) Neut % (Auto) Lymph % (Auto) [place] % (Auto) Eos % (Auto) Baso % (Auto) Absolute Neuts (auto) Absolute Lymphs (auto) Nucleated RBC % Differential Comment Diff Path Review Platelet Estimate RBC Morphology Anisocytosis Macrocytosis PT INR APTT Sodium Potassium Chloride Carbon Dioxide Anion Gap BUN Creatinine Estim Creat Clear Calc Est GFR (MDRD) Af Amer Est GFR (MDRD) Non-Af BUN/Creatinine Ratio Glucose Lactic Acid 1.5 Calcium Total Bilirubin AST ALT Alkaline Phosphatase Total Protein Albumin Globulin Albumin/Globulin Ratio Urine Color Yellow Urine Clarity Sl. Cloudy Urine pH 5.0 Ur Specific [place] 1.015 Urine Protein 30 H Urine Glucose (UA) Normal Urine Ketones 15 H Urine Occult Blood 250 H Urine Nitrite Negative Urine Bilirubin Negative Urine Urobilinogen Normal Ur Leukocyte Esterase 500 H Urine RBC 50-100 SEEN Urine WBC 10-25 SEEN Ur Squamous Epith Cells 0 SEEN Urine Bacteria 1+ Urine Mucus 0 SEEN EKG Initial EKG: Attestation: I personally reviewed and interpreted this EKG as follows: Interpretation: Sinus Rhythm (Ventricular rate is 88. EKG is normal. [place] interval is 184 ms. QRS duration 90 ms. QT duration 3 and 34 ms. [place] is normal.) Discharge Plan Triage Chief Complaint: Complaint ED Provider: Kristopher Rosas Dx/Rx/DC Orders Clinical Impression: Sepsis, Acute urinary retention, Complicated urinary tract infection Prescriptions: No Action fluoxetine [Prozac] 40 mg capsule 40 mg PO DAILY RF: 0 aspirin 81 mg tablet,delayed release (DR/EC) 81 mg PO DAILY Qty: 1 RF: 0 acetaminophen [Tylenol Extra Strength] 500 mg tablet 500 mg PO Q6H PRN (Reason: Pain) RF: 0 multivitamin 1 EACH tablet 1 ea PO DAILY RF: 0 tamsulosin 0.4 mg capsule 0.8 mg PO DAILY RF: 0 oxycodone 5 MG tablet 5 mg PO Q6H PRN PRN (Reason: Pain Score 1-10/10) RF: 0 cephalexin 500 mg capsule 500 mg PO Q6H 10 Days Qty: 40 RF: 0 nitroglycerin 0.4 mg tablet, sublingual 0.4 mg SUBLINGUAL Q5-15M PRN (Reason: chest pain) Qty: 25 RF: 1 propranolol 20 mg tablet 20 mg PO BID Qty: 180 RF: 3 lisinopril 10 mg tablet 10 mg PO BID Qty: 180 RF: 3 rosuvastatin 10 mg tablet 10 mg PO DAILY Qty: 90 RF: 3 fluticasone propionate 50 mcg/actuation spray,suspension 2 spray intranasal DAILY Qty: 18.2 RF: 4 cyclobenzaprine 10 mg tablet 10 mg PO TID PRN (Reason: muscle spasm) Qty: 1 RF: 0 amlodipine 5 mg tablet 5 mg PO DAILY RF: 0 hydrochlorothiazide 25 mg tablet 12.5 mg PO BID Qty: 90 RF: 4 Primary Care Provider: Harvinder Vaughan Referrals: Harvinder Vaughan MD [Primary Care Provider] - Disposition Disposition: Acute Care Hospital [facility]
[2021-06-29 17:05] LABS: Absolute Lymphocyte Count 0.66 X10^3/uL (0.83-4.51); Absolute Neutrophil Count 19.9 X10^3/uL (2.0-7.7); Basophil# 0.06 X10^3/uL; Basophil% 0.3 % (0-1); Hematocrit 31.6 % (40-54); Hemoglobin 11.4 g/dL (13.0-16.5); Lymphocyte # 0.66 X10^3/ul (0.83-4.51); Lymphocyte % 2.9 % (19-41); Mean Corp Hgb Conc 36.1 g/dL (32-36); Mean Corpuscular Hgb 33.3 pg (27.0-32.0); Mean Corpuscular Volume 92.4 fL (80-94); Mean Platelet Vol. 9.5 fl (6.2-12.0); Monocyte# 2.08 X10^3/uL; Monocyte% 9.1 % (0-10); NRBC Flagged by Analyzer 0 % (0-5); Neutrophil # 19.94 X10^3/uL (2.7-7.7); Neutrophil % 87.1 % (47-70); POSITIVE DIFFERENTIAL YES; Platelet Count 275 K/mm3 (150-450); RBC Distribution Width CV 12.3 % (11.6-14.6); RBC Distribution Width SD 41.7 fl (35.1-43.9); Red Blood Count 3.42 M/mm3 (4.6-6.2); White Blood Count 22.9 K/mm3 (4.4-11.0)
[2021-06-29 17:14] LABS: Differential Indicated SCAN CRITERIA MET
[2021-06-29] MEDS: 0.9% Normal Saline 1,000 ML 999 ML IV (17:15)
[2021-06-29] MEDS: Ceftriaxone 1 GM/50 ML BAG IV (17:24)
[2021-06-29 17:27] LABS: International Normalized Ratio 1.2; Partial Thromboplast Time 33.1 Seconds (24.1-36.2); Platelet Estimate ADEQUATE (ADEQ); Prothrombin Time (Protime)PT. 14.8 SECONDS (11.7-14.9)
[2021-06-29 17:28] LABS: Anisocytosis RARE; Macrocytosis RARE; Red Cell Morphology N CHROM NORMAL (NORM C&C)
[2021-06-29 17:35] LABS: Lactic Acid 1.5 mmol/L (0.4-1.9)
[2021-06-29 17:39] LABS: ALB/GLOB Ratio 0.7 RATIO (0.9-2.4); AST(SGOT) 19 U/L (15-37); Alanine Aminotransfer ALT/SGPT 21 U/L (16-61); Albumin, Serum 2.9 g/dL (3.2-5.0); Alkaline Phosphatase 96 U/L (45-117); Anion Gap 7 (5-15); BUN 24 mg/dL (7-18); BUN/Creat Ratio 16.2 RATIO (10-20); Calcium,Total 8.1 mg/dL (8.5-10.1); Chloride 98 mmol/L (98-107); Creatinine, Serum 1.48 mg/dL (0.70-1.30); EST Glomerular Filtration Rate 49 mL/min (>60); Est Glom Filt Rate - Afr Amer 59 mL/min (>60); Estimated Creatinine Clearance 45.74 ml/min; Glucose 146 mg/dL (74-106); Potassium 4.1 mmol/L (3.5-5.1); Protein, Total 6.9 g/dL (6.4-8.2); Sodium Level 131 mmol/L (136-145)
[2021-06-29 18:09] LABS: Squamous Epithelial Cells - UA 0 SEEN /hpf (0-5)
[2021-06-29 18:10] LABS: Mucous, Urine 0 SEEN /hpf (<or=2+)
[2021-06-29 18:19] LABS: Color, Urine Yellow (Yellow); Glucose, Dipstick Normal (Normal); Ketone-Dipstick 15 mg/dl (Negative); Leukocyte Esterase-Dipstick 500 /ul (Negative); Nitrite-Dipstick Negative (Negative); Occult Blood-Urine 250 /ul (Negative); Protein-Dipstick 30 mg/dl (Negative); Specific Gravity, Urine 1.015 (1.002-1.030); Urine Bilirubin Dipstick Negative (Negative); Urine Clarity Sl. Cloudy (Clear); Urine Urobilinogen Normal (Normal)
[2021-06-29 18:30] LABS: Bacteria 1+ /hpf (None Seen); Red Blood Cells-Urine 50-100 SEEN /hpf (0-5); White Blood Cells 10-25 SEEN /hpf (0-5)
--- NOTE | 2021-06-29 19:14 | HP.PCM_ITS ---
Documented by User: LYN Mayer 06/29/21 19:33 HPI - General General Date of Admission: 06/29/21 Date of Service: 06/29/21 Chief Complaint: Urinary complaints HPI Narrative NARESH MONZON, is a 80 M who presents with complaints of fever, chills, dysuria. Patient was seen in the ER last night for urinary retention and a Clark catheter was placed and patient was discharged home with instructions to follow-up with urology. However patient's reports that today patient had 2 episodes of rigors and was feverish so she brought him back to the ER for further evaluation. Upon evaluation in ER patient was noted to have a fever of 103 and his urine was positive for leukocyte Estrace, occult blood, ketones, protein, white blood cells. Patient reports a medical history that includes hyperlipidem ia, hypertension, REHAN, diabetes mellitus type 2, BPH, PTSD. 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 Neck pain on left side REHAN (obstructive sleep apnea) Precordial chest pain Presence of stent in coronary artery (~09/08/10) PTSD (post-traumatic stress disorder) Pulmonary hypertension Pure hypercholesterolemia Restless legs syndrome (RLS) Shortness of breath Syncope and collapse Home Medications multivitamin 1 ea PO DAILY 12/08/15 [History Last Taken 06/29/21] fluoxetine 40 mg capsule 40 mg PO DAILY 07/04/18 [History Last Taken 06/29/21] aspirin 81 mg tablet,delayed release 81 mg PO DAILY #1 tab 09/18/19 [Rx Last Taken 06/29/21] tamsulosin 0.4 mg capsule 0.8 mg PO QHS cap 09/18/19 [History Last Taken 06/28/21] oxycodone 5 mg PO Q6H PRN PRN 01/26/20 [History Last Taken Unknown] nitroglycerin 0.4 mg sublingual tablet 0.4 mg SUBLINGUAL Q5-15M PRN #25 tab 03/17/20 [Rx Last Taken Unknown] acetaminophen 500 mg tablet 500 mg PO Q6H PRN 06/17/20 [History Last Taken Unknown] propranolol 20 mg tablet 20 mg PO BID #180 tab 02/23/21 [Rx Last Taken 06/29/21] lisinopril 10 mg tablet 10 mg PO BID #180 tab 03/01/21 [Rx Last Taken 06/29/21] amlodipine 5 mg tablet 5 mg PO BID tab 03/17/21 [History Last Taken Unknown] hydrochlorothiazide 25 mg tablet 12.5 mg PO BID #90 tab 05/18/21 [Rx Last Taken 06/29/21] cephalexin 500 mg PO Q6H 10 Days #40 cap 06/28/21 [Rx Last Taken 06/29/21] diclofenac sodium 1 ea TOPICAL BID 06/29/21 [History Last Taken Unknown] dutasteride 0.5 mg PO DAILY 06/29/21 [History Last Taken 06/29/21] rosuvastatin 10 mg PO QHS 06/29/21 [History Last Taken 06/29/21] Allergy/AdvReac Type Severity Reaction Status Date / Time acetaminophen [From Vicodin] Allergy Other Verified 06/29/21 16:49 hydrocodone [From Vicodin] Allergy Other Verified 06/29/21 16:49 orphenadrine Allergy Unknown Verified 06/29/21 16:49 pregabalin Allergy Swelling Verified 06/29/21 16:49 atorvastatin [From Lipitor] AdvReac Severe Intolerance Verified 06/29/21 16:49 ,Myalgias Family History Father CVA (cerebral vascular accident) Mother Cardiomegaly Brother CAD (coronary artery disease) Hx CABG and valve replacement Diabetes Brother History of heart valve replacement Brother Rheumatic fever Sister Hypertension Aortic aneurysm H/O aortic valve replacement Brother Cancer bladder Brother Thyroid disorder Surgical History (Updated 06/29/21 @ 19:21 by Radha Hilliard) H/O heart artery stent History of appendectomy History of hydrocelectomy History of right hip replacement History of vasectomy hx cervical stenosis Presence of coronary angioplasty implant and graft (~09/08/10) S/P appy S/P right knee arthroscopy Social History household members: spouse housing: house Smoking Status: Former smoker pack-years: 20 Tobacco: How many years used: 22 second hand exposure: No alcohol intake: never substance use type: does not use caffeine: Yes Type: carbonated beverages Number of servings: 1 and tea what type of physical activity do you participate in: none seatbelt use: always do you feel safe at home: Yes ROS Constitutional Constitutional: Reports chills, fever(s) and malaise; Denies anorexia, fatigue o r weakness Cardiovascular Cardiovascular: Denies chest pain, edema, palpitations or syncope Respiratory/Chest Respiratory/Chest: Denies cough, shortness of breath at rest, shortness of breath with exertion or wheezing Gastrointestinal Gastrointestinal: Denies abdominal pain, constipation, diarrhea, nausea or vomiting Genitourinary Genitourinary: Reports dysuria Musculoskeletal Musculoskeletal: Denies back pain, extremity pain, joint pain or joint stiffness Integumentary Integumentary: Denies dry skin Neurologic Neurologic: Denies abnormal gait, abnormal speech, confusion or dizziness Psychiatric Psychiatric: Denies anxiety or depression Endocrine Endocrinology: Denies change in body appearance Hematologic/Lymphatic Hematologic/Lymphatic: Denies anemia Vital Signs Vital Signs Vital Signs: 06/29/21 16:42 06/29/21 16:47 06/29/21 16:59 Temperature 103 F H 103 F H 103 F H Temperature Source Oral Oral Oral Pulse Rate 94 94 92 Respiratory Rate 22 H 21 H 19 H Blood Pressure 178/62 H 178/62 H 178/62 H Blood Pressure Mean 100 100 100 Pulse Ox 94 96 95 Oxygen Delivery Method Room Air Room Air Room Air 06/29/21 18:03 06/29/21 19:10 06/29/21 19:11 Temperature 103 F H 99.8 F H Temperature Source Oral Oral Pulse Rate 84 80 Respiratory Rate 20 H 21 H Blood Pressure 155/69 H 132/64 H Blood Pressure Mean 97 86 Pulse Ox 94 94 Oxygen Delivery Method Room Air Room Air Room Air Weight Weight: 223 lb 5.252 oz Body Mass Index (BMI) 29.5 Physical Exam Const alert, oriented x3 and no apparent distress General Appearance: cooperative HEENT normocephalic and head/scalp atraumatic Eyes conjunctivae normal and no scleral icterus Neck supple General: trachea midline Lymph Lymphatic: no lymphadenopathy noted Resp normal respiratory effort, normal air movement and clear to auscultation bilaterally Effort and Inspection: tachypneic Cardio regular rate, regular rhythm, S1 normal heart sound, S2 normal heart sound and peripheral pulses 2+ throughout GI normal to inspection, nondistended, normoactive bowel sounds, soft to palpation and non-tender Extremity normal capillary refill and no clubbing, cyanosis or edema Skin General Skin Exam: no breakdown and turgor normal Lesions: no lesions Rashes: no rashes Neuro no focal motor deficits and no sensory deficits noted Speech: speech normal Psych thought process normal and affect normal Appearance: appropriate Results Lab / Micro Data Result Diagrams: 06/29/21 16:50 06/29/21 16:50 Labs: Laboratory Results - last 24 hr 06/29/21 16:50: WBC 22.9 H, RBC 3.42 L, Hgb 11.4 L, Hct 31.6 L, MCV 92.4, MCH 33.3 H, MCHC 36.1 H D, RDW Std Deviation 41.7, RDW Coeff of Guido 12.3, Plt Count 275, MPV 9.5, Immature Gran % (Auto) 0.600, Neut % (Auto) 87.1 H, Lymph % (Auto) 2.9 L, [place] % (Auto) 9.1, Eos % (Auto) 0.0, Baso % (Auto) 0.3, Absolute Neuts (auto) 19.9 H, Absolute Lymphs (auto) 0.66 L, Nucleated RBC % 0, Differential Comment SEE COMMENT, Diff Path Review September foll, Platelet Estimate ADEQUATE, RBC Morphology N CHROM, Anisocytosis RARE, Macrocytosis RARE 06/29/21 16:50: PT 14.8, INR 1.2, APTT 33.1 06/29/21 16:50: Sodium 131 L, Potassium 4.1, Chloride 98, Carbon Dioxide 26.0, Anion Gap 7, BUN 24 H, Creatinine 1.48 H, Estim Creat Clear Calc 45.74, Est GFR (MDRD) Af Amer 59 L, Est GFR (MDRD) Non-Af 49 L, BUN/Creatinine Ratio 16.2, Glucose 146 H, Calcium 8.1 L, Total Bilirubin 0.80, AST 19, ALT 21, Alkaline Phosphatase 96, Total Protein 6.9, Albumin 2.9 L, Globulin 4.0, Albumin/Globulin Ratio 0.7 L 06/29/21 16:50: Lactic Acid 1.5 06/29/21 18:00: Urine Color Yellow, Urine Clarity Sl. Cloudy, Urine pH 5.0, Ur Specific [place] 1.015, Urine Protein 30 H, Urine Glucose (UA) Normal, Urine Ketones 15 H, Urine Occult Blood 250 H, Urine Nitrite Negative, Urine Bilirubin Negative, Urine Urobilinogen Normal, Ur Leukocyte Esterase 500 H, Urine RBC 50- 100 SEEN, Urine WBC 10-25 SEEN, Ur Squamous Epith Cells 0 SEEN, Urine Bacteria 1+, Urine Mucus 0 SEEN Assessment & Plan Assessment/Plan (1) Acute renal insufficiency: (2) Complicated urinary tract infection: PLAN: 1. Complicated urinary tract infection -Admit to [facility] -Maintain Clark catheter -Urine and blood culture pending, white blood cell count 22.9 -Patient received IV ceftriaxone in ER, will continue -Continue judicious IV fluid replacement -Due to retention continue tamsulosin and dutasteride 2. Acute renal insufficiency -Likely secondary to urinary tract infection and dehydration -Continue judicious IV fluid replacement -Baseline creatinine 1.1-1.2 -Daily BMP ordered 3. Diabetes mellitus type 2 -Currently not on any medications, diet and lifestyle controlled -ACHS blood sugars with sliding scale insulin ordered 4. Hypertension -continue Patient's home medication regimen which includes propranolol, lisinopril, hydrochlorothiazide, amlodipine. -Vital signs per protocol, currently stable 5. Obstructive sleep apnea -CPAP ordered per patient's home settings 6. Hypercholesterolemia -Continue rosuvastatin DVT prophylaxis-subcu Lovenox This patient was seen by LYN Mayer under the supervision of Dr. Rabago. 32 minutes spent in clinical coordination of patient's plan of care. Documented by User: Dr. 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 Neck pain on left side REHAN (obstructive sleep apnea) Precordial chest pain Presence of stent in coronary artery (~09/08/10) PTSD (post-traumatic stress disorder) Pulmonary hypertension Pure hypercholesterolemia Restless legs syndrome (RLS) Shortness of breath Syncope and collapse Home Medications multivitamin 1 ea PO DAILY 12/08/15 [History Last Taken 06/29/21] fluoxetine 40 mg capsule 40 mg PO DAILY 07/04/18 [History Last Taken 06/29/21] aspirin 81 mg tablet,delayed release 81 mg PO DAILY #1 tab 09/18/19 [Rx Last Taken 06/29/21] tamsulosin 0.4 mg capsule 0.8 mg PO QHS cap 09/18/19 [History Last Taken 06/28/21] oxycodone 5 mg PO Q6H PRN PRN 01/26/20 [History Last Taken Unknown] nitroglycerin 0.4 mg sublingual tablet 0.4 mg SUBLINGUAL Q5-15M PRN #25 tab 03/17/20 [Rx Last Taken Unknown] acetaminophen 500 mg tablet 500 mg PO Q6H PRN 06/17/20 [History Last Taken Unknown] propranolol 20 mg tablet 20 mg PO BID #180 tab 02/23/21 [Rx Last Taken 06/29/21] lisinopril 10 mg tablet 10 mg PO BID #180 tab 03/01/21 [Rx Last Taken 06/29/21] amlodipine 5 mg tablet 5 mg PO BID tab 03/17/21 [History Last Taken Unknown] hydrochlorothiazide 25 mg tablet 12.5 mg PO BID #90 tab 05/18/21 [Rx Last Taken 06/29/21] cephalexin 500 mg PO Q6H 10 Days #40 cap 06/28/21 [Rx Last Taken 06/29/21] diclofenac sodium 1 ea TOPICAL BID 06/29/21 [History Last Taken Unknown] dutasteride 0.5 mg PO DAILY 06/29/21 [History Last Taken 06/29/21] rosuvastatin 10 mg PO QHS 06/29/21 [History Last Taken 06/29/21] Allergy/AdvReac Type Severity Reaction Status Date / Time acetaminophen [From Vicodin] Allergy Other Verified 06/29/21 16:49 hydrocodone [From Vicodin] Allergy Other Verified 06/29/21 16:49 orphenadrine Allergy Unknown Verified 06/29/21 16:49 pregabalin Allergy Swelling Verified 06/29/21 16:49 atorvastatin [From Lipitor] AdvReac Severe Intolerance Verified 06/29/21 16:49 ,Myalgias Family History Father CVA (cerebral vascular accident) Mother Cardiomegaly Brother CAD (coronary artery disease) Hx CABG and valve replacement Diabetes Brother History of heart valve replacement Brother Rheumatic fever Sister Hypertension Aortic aneurysm H/O aortic valve replacement Brother Cancer bladder Brother Thyroid disorder Surgical History (Updated 06/29/21 @ 19:21 by Radha Hilliard) H/O heart artery stent History of appendectomy History of hydrocelectomy History of right hip replacement History of vasectomy hx cervical stenosis Presence of coronary angioplasty implant and graft (~09/08/10) S/P appy S/P right knee arthroscopy Social History household members: spouse housing: house Smoking Status: Former smoker pack-years: 20 Tobacco: How many years used: 22 second hand exposure: No alcohol intake: never substance use type: does not use caffeine: Yes Type: carbonated beverages Number of servings: 1 and tea what type of physical activity do you participate in: none seatbelt use: always do you feel safe at home: Yes Results Lab / Micro Data Result Diagrams: 06/29/21 16:50 06/29/21 16:50
--- NOTE | 2021-06-29 19:40 | CASEMGMT ---
DENNIS JEFFRIES Assessment: DENNIS JEFFRIES to room to meet with patient for initial transition planning/care coordination assessment. DENNIS JEFFRIES introduced self and role at [facility]. Patient voices understanding and consents to assessment at this time. Patient's Marika Nj present at bedside. Patient is alert and oriented and answers all questions appropriately, lying on ER cart in no apparent distress. Care providers, pharmacy, and demographics verified/updated at this time. Admitting Dx: UTI, sepsis, elevated creatinine, acute urinary retention PCP: Harvinder Vaughan Specialists: Williams- cardiology, Stacey- urology, Bennett- pulmonology, Kun- pain management, Rajiv- ortho Preferred Pharmacy: [facility] Insurance: Medicare A/B & AARP Prescription Benefit: yes Living Will/HPOA: Patient states he has a living will and HPOA is Marika Nj. Patient made aware these forms are not on file at [facility] and may be brought in to be scanned into record. LNOK: Marika Nj Living Arrangements: Patient lives with in one story house with 2 steps to enter the home with a handrail present. Patient states independent with ADLs prior to hospitalization, though reports increased weakness x 2 days with current illness. Patient typically ambulates independently without the use of an assistive device. Patient is [id number], wears hearing aids and glasses. Smoking/ETOH: Former smoker (quit 1979), denies ETOH use Transportation: Patient drives self and denies transportation concerns. DME/HHC/SNF: Patient has a shower chair, raised toilet seat, grab bars, walker and cane available in the home. Patient has a CPAP machine at home but has not used it since last fall sometime because it makes me cough. Reports he has discussed cough with Dr. Guajardo. Previous HHC following hip replacement surgery but unable to recall name of agency. Denies previous SNF stays. Patient has no concerns with going home at time of discharge. DENNIS JEFFRIES discussed HHC with patient and , given report of recent weakness. Patient and wish to see how patient progresses during hospital stay and will consider HHC if indicated. CM to follow for any discharge planning/needs. Patient voices no concerns/needs at this time. Advised patient and to ask for CM if any questions/concerns/needs arise. Voices understanding. Plan: home
[2021-06-29] MEDS: 0.9% Normal Saline 1,000 ML 100 ML IV (20:27)
[2021-06-29] MEDS: Tamsulosin HCl 0.4 MG Capsule 0.8 MG PO (21:42)
[2021-06-29] MEDS: Propranolol 10 MG Tablet 20 MG PO (21:42)
[2021-06-29] MEDS: amLODIPine 5 MG Tablet PO (21:42)
[2021-06-30] VITALS (9 sets, daily range): BP systolic 124–148; BP diastolic 54–57; PULSE 67–82; RESP 16–18; TEMP 36.5–39.4; O2SAT 91–95
[2021-06-30 04:55] LABS: Absolute Lymphocyte Count 1.02 X10^3/uL (0.83-4.51); Absolute Neutrophil Count 16.7 X10^3/uL (2.0-7.7); Basophil# 0.04 X10^3/uL; Basophil% 0.2 % (0-1); Eosinophil# 0.05 X10^3/uL; Eosinophils% 0.3 % (0-5); Hematocrit 30.5 % (40-54); Hemoglobin 10.1 g/dL (13.0-16.5); Lymphocyte # 1.02 X10^3/ul (0.83-4.51); Lymphocyte % 5.2 % (19-41); Mean Corp Hgb Conc 33.1 g/dL (32-36); Mean Corpuscular Hgb 31.4 pg (27.0-32.0); Mean Corpuscular Volume 94.7 fL (80-94); Mean Platelet Vol. 9.8 fl (6.2-12.0); Monocyte# 1.67 X10^3/uL; Monocyte% 8.5 % (0-10); NRBC Flagged by Analyzer 0 % (0-5); Neutrophil # 16.67 X10^3/uL (2.7-7.7); Neutrophil % 85.3 % (47-70); POSITIVE DIFFERENTIAL YES; Platelet Count 237 K/mm3 (150-450); RBC Distribution Width CV 12.5 % (11.6-14.6); RBC Distribution Width SD 43.8 fl (35.1-43.9); Red Blood Count 3.22 M/mm3 (4.6-6.2); White Blood Count 19.6 K/mm3 (4.4-11.0)
[2021-06-30 05:02] LABS: Differential Indicated SCAN CRITERIA MET
[2021-06-30 05:20] LABS: ALB/GLOB Ratio 0.7 RATIO (0.9-2.4); AST(SGOT) 19 U/L (15-37); Alanine Aminotransfer ALT/SGPT 17 U/L (16-61); Albumin, Serum 2.6 g/dL (3.2-5.0); Alkaline Phosphatase 80 U/L (45-117); Anion Gap 7 (5-15); BUN 26 mg/dL (7-18); Calcium,Total 7.8 mg/dL (8.5-10.1); Chloride 100 mmol/L (98-107); Creatinine, Serum 1.37 mg/dL (0.70-1.30); EST Glomerular Filtration Rate 53 mL/min (>60); Est Glom Filt Rate - Afr Amer 64 mL/min (>60); Estimated Creatinine Clearance 49.41 ml/min; Globulin 3.6 g/dL (2.2-4.2); Glucose 114 mg/dL (74-106); Potassium 3.8 mmol/L (3.5-5.1); Protein, Total 6.2 g/dL (6.4-8.2); Sodium Level 132 mmol/L (136-145)
[2021-06-30] MEDS: Acetaminophen 325 MG Tablet 650 MG PO ×2 (05:49→15:20)
--- NOTE | 2021-06-30 07:22 | PN.HOSP_ITS ---
Subjective Subjective The patient returned with fever, temperature 103 Fahrenheit, chills, rigor rigors. Patient had urine retention that required ER visit and Clark Clark catheter, 1 day prior to admission. On IV antibiotic. Objective Data Objective Data Vital Signs: Vital Signs Temp Pulse Resp BP Pulse Ox 97.8 F 67 16 124/57 H 94 06/30/21 02:00 06/30/21 02:00 06/30/21 02:00 06/30/21 02:00 06/30/21 02:00 Oxygen Delivery Method Room Air Weight: 214 lb 11.2 oz Body Mass Index (BMI) 28.3 Intake & Output: Intake and Output for Last 24 Hours 06/28/21 06/29/21 06/30/21 23:59 23:59 23:59 Intake Total 1050 / 1050 1000 / 1000 Output Total 700 / 700 350 / 350 Balance 350 / 350 650 / 650 Lab / Micro Data Result Diagrams: 06/30/21 04:31 06/30/21 04:31 Labs: Laboratory Results - last 24 hr 06/29/21 16:50: WBC 22.9 H, RBC 3.42 L, Hgb 11.4 L, Hct 31.6 L, MCV 92.4, MCH 33.3 H, MCHC 36.1 H D, RDW Std Deviation 41.7, RDW Coeff of Guido 12.3, Plt Count 275, MPV 9.5, Immature Gran % (Auto) 0.600, Neut % (Auto) 87.1 H, Lymph % (Auto) 2.9 L, [place] % (Auto) 9.1, Eos % (Auto) 0.0, Baso % (Auto) 0.3, Absolute Neuts (auto) 19.9 H, Absolute Lymphs (auto) 0.66 L, Nucleated RBC % 0, Differential Comment SEE COMMENT, Diff Path Review May foll, Platelet Estimate ADEQUATE, RBC Morphology N CHROM, Anisocytosis RARE, Macrocytosis RARE 06/29/21 16:50: PT 14.8, INR 1.2, APTT 33.1 06/29/21 16:50: Sodium 131 L, Potassium 4.1, Chloride 98, Carbon Dioxide 26.0, Anion Gap 7, BUN 24 H, Creatinine 1.48 H, Estim Creat Clear Calc 45.74, Est GFR (MDRD) Af Amer 59 L, Est GFR (MDRD) Non-Af 49 L, BUN/Creatinine Ratio 16.2, Glucose 146 H, Calcium 8.1 L, Total Bilirubin 0.80, AST 19, ALT 21, Alkaline Phosphatase 96, Total Protein 6.9, Albumin 2.9 L, Globulin 4.0, Albumin/Globulin Ratio 0.7 L 06/29/21 16:50: Lactic Acid 1.5 06/29/21 18:00: Urine Color Yellow, Urine Clarity Sl. Cloudy, Urine pH 5.0, Ur Specific [place] 1.015, Urine Protein 30 H, Urine Glucose (UA) Normal, Urine Ketones 15 H, Urine Occult Blood 250 H, Urine Nitrite Negative, Urine Bilirubin Negative, Urine Urobilinogen Normal, Ur Leukocyte Esterase 500 H, Urine RBC 50- 100 SEEN, Urine WBC 10-25 SEEN, Ur Squamous Epith Cells 0 SEEN, Urine Bacteria 1+, Urine Mucus 0 SEEN 06/30/21 04:31: WBC 19.6 H, RBC 3.22 L, Hgb 10.1 L, Hct 30.5 L, MCV 94.7 H, MCH 31.4, MCHC 33.1 D, RDW Std Deviation 43.8, RDW Coeff of Guido 12.5, Plt Count 237, MPV 9.8, Immature Gran % (Auto) 0.500, Neut % (Auto) 85.3 H, Lymph % (Auto) 5.2 L, [place] % (Auto) 8.5, Eos % (Auto) 0.3, Baso % (Auto) 0.2, Absolute Neuts ( auto) 16.7 H, Absolute Lymphs (auto) 1.02, Nucleated RBC % 0, Diff Path Review September06/30/21 04:31: Sodium 132 L, Potassium 3.8, Chloride 100, Carbon Dioxide 25.0, Anion Gap 7, BUN 26 H, Creatinine 1.37 H, Estim Creat Clear Calc 49.41, Est GFR (MDRD) Af Amer 64, Est GFR (MDRD) Non-Af 53 L, BUN/Creatinine Ratio 19.0, Glucose 114 H, Calcium 7.8 L, Total Bilirubin 0.40, AST 19, ALT 17, Alkaline Phosphatase 80, Total Protein 6.2 L, Albumin 2.6 L, Globulin 3.6, Albumin/G lobulin Ratio 0.7 L Assessment & Plan Assessment/Plan (1) Acute renal insufficiency: (2) Complicated urinary tract infection: PLAN: 1. Complicated urinary tract infection -Admit to [facility] -Maintain Clark catheter -Urine and blood culture pending, white blood cell count 22.9 -Patient received IV ceftriaxone in ER, will continue -Continue judicious IV fluid replacement -Due to retention continue tamsulosin and dutasteride 2. Acute renal insufficiency -Likely secondary to urinary tract infection and dehydration -Continue judicious IV fluid replacement -Baseline creatinine 1.1-1.2 -Daily BMP ordered 3. Diabetes mellitus type 2 -Currently not on any medications, diet and lifestyle controlled -ACHS blood sugars with sliding scale insulin ordered 4. Hypertension -continue Patient's home medication regimen which includes propranolol, lisinopril, hydrochlorothiazide, amlodipine. -Vital signs per protocol, currently stable 5. Obstructive sleep apnea -CPAP ordered per patient's home settings 6. Hypercholesterolemia -Continue rosuvastatin DVT prophylaxis-subcu Lovenox This patient was seen by Nuria Ellis NP-C under the supervision of Dr. Rabago. 32 minutes spent in clinical coordination of patient's plan of care.
[2021-06-30] MEDS: Propranolol 10 MG Tablet 20 MG PO ×2 (08:50→20:35)
[2021-06-30] MEDS: Enoxaparin 40 MG/0.4 ML Syringe SC (08:50)
[2021-06-30] MEDS: Aspirin E.C. 81 MG Tablet PO (08:50)
[2021-06-30] MEDS: Finasteride 5 MG Tablet PO (08:51)
[2021-06-30] MEDS: FLUoxetine 20 MG Capsule 40 MG PO (08:51)
[2021-06-30] MEDS: amLODIPine 5 MG Tablet PO ×2 (08:51→20:36)
[2021-06-30] MEDS: Lisinopril 10 MG Tablet PO ×2 (08:54→20:36)
[2021-06-30] MEDS: Ceftriaxone 1 GM/50 ML BAG IV (09:04)
--- NOTE | 2021-06-30 11:01 | PCM.RX.CS ---
Consult Pharmacy has been consulted to manage selected antiobiotic: Vancomycin Type of Consult: New start Labs: Sodium 132 mmol/L (136-145) L 06/30/21 04:31 Potassium 3.8 mmol/L (3.5-5.1) 06/30/21 04:31 Chloride 100 mmol/L (98-107) 06/30/21 04:31 Carbon Dioxide 25.0 mmol/L (21.0-32.0) 06/30/21 04:31 Anion Gap 7 (5-15) 06/30/21 04:31 BUN 26 mg/dL (7-18) H 06/30/21 04:31 Creatinine 1.37 mg/dL (0.70-1.30) H 06/30/21 04:31 Est GFR (MDRD) Af Amer 64 mL/min (>60) 06/30/21 04:31 Est GFR (MDRD) Non-Af 53 mL/min (>60) L 06/30/21 04:31 BUN/Creatinine Ratio 19.0 RATIO (10-20) 06/30/21 04:31 Glucose 114 mg/dL (74-106) H 06/30/21 04:31 Microbiology: Microbiology 06/29/21 16:50 Blood Culture (Wb) - Anticubital Left Bacteria Detection (PCR) - Preliminary Enterococcus faecalis 06/29/21 16:50 Blood Culture (Wb) - Anticubital Left Blood Culture - Preliminary Weight used for dosin.4 kg Estimated Creatinine Clearance: 53.7ML/MIN Goal Trough: 15-20 mcg/mL Pharmacy Plan for Drug Dosing: Give initial standard dose of 1500mg IV x1 as ordered, then continue with 1000mg IV q12h per [facility] dosing protocol. Will order a trough to be drawn before the 4th total dose. The patient's CrCl of 53.7ml/min was calculated using an adjusted body weight of 86.9kg. Pharmacy Service will continue to monitor and adjust dosing as required. Follow-Up Labs: Trough Vancomycin Labs to be done on [date and time ordered]: 07/01/21 22:30
--- NOTE | 2021-06-30 11:59 | PN.HOSP_ITS ---
Documented by User: Cale BAIRD 06/30/21 12:12 Subjective Subjective Patient is a 80-year-old male comfortably resting in a chair, alert and orient x3. Patient denies development of any new symptoms overnight. Does not appear in acute distress. Objective Data Objective Data Vital Signs: Vital Signs Temp Pulse Resp BP Pulse Ox 97.7 F L 82 18 148/54 H 95 06/30/21 07:42 06/30/21 07:42 06/30/21 07:56 06/30/21 07:42 06/30/21 08:30 Oxygen Delivery Method Room Air Weight: 214 lb 11.2 oz Body Mass Index (BMI) 28.3 Intake & Output: Intake and Output for Last 24 Hours 06/28/21 06/29/21 06/30/21 23:59 23:59 23:59 Intake Total 1050 / 1050 1350 / 1350 Output Total 700 / 700 550 / 550 Balance 350 / 350 800 / 800 Lab / Micro Data Result Diagrams: 06/30/21 04:31 06/30/21 04:31 Labs: Laboratory Results - last 24 hr 06/29/21 16:50: WBC 22.9 H, RBC 3.42 L, Hgb 11.4 L, Hct 31.6 L, MCV 92.4, MCH 33.3 H, MCHC 36.1 H D, RDW Std Deviation 41.7, RDW Coeff of Guido 12.3, Plt Count 275, MPV 9.5, Immature Gran % (Auto) 0.600, Neut % (Auto) 87.1 H, Lymph % (Auto) 2.9 L, Sierra % (Auto) 9.1, Eos % (Auto) 0.0, Baso % (Auto) 0.3, Absolute Neuts (auto) 19.9 H, Absolute Lymphs (auto) 0.66 L, Nucleated RBC % 0, Differential Comment SEE COMMENT, Diff Path Review May foll, Platelet Estimate ADEQUATE, RBC Morphology N CHROM, Anisocytosis RARE, Macrocytosis RARE 06/29/21 16:50: PT 14.8, INR 1.2, APTT 33.1 06/29/21 16:50: Sodium 131 L, Potassium 4.1, Chloride 98, Carbon Dioxide 26.0, Anion Gap 7, BUN 24 H, Creatinine 1.48 H, Estim Creat Clear Calc 45.74, Est GFR (MDRD) Af Amer 59 L, Est GFR (MDRD) Non-Af 49 L, BUN/Creatinine Ratio 16.2, Glucose 146 H, Calcium 8.1 L, Total Bilirubin 0.80, AST 19, ALT 21, Alkaline Phosphatase 96, Total Protein 6.9, Albumin 2.9 L, Globulin 4.0, Albumin/Globulin Ratio 0.7 L 06/29/21 16:50: Lactic Acid 1.5 06/29/21 18:00: Urine Color Yellow, Urine Clarity Sl. Cloudy, Urine pH 5.0, Ur Specific Brackney 1.015, Urine Protein 30 H, Urine Glucose (UA) Normal, Urine Ketones 15 H, Urine Occult Blood 250 H, Urine Nitrite Negative, Urine Bilirubin Negative, Urine Urobilinogen Normal, Ur Leukocyte Esterase 500 H, Urine RBC 50- 100 SEEN, Urine WBC 10-25 SEEN, Ur Squamous Epith Cells 0 SEEN, Urine Bacteria 1+, Urine Mucus 0 SEEN 06/30/21 04:31: WBC 19.6 H, RBC 3.22 L, Hgb 10.1 L, Hct 30.5 L, MCV 94.7 H, MCH 31.4, MCHC 33.1 D, RDW Std Deviation 43.8, RDW Coeff of Guido 12.5, Plt Count 237, MPV 9.8, Immature Gran % (Auto) 0.500, Neut % (Auto) 85.3 H, Lymph % (Auto) 5.2 L, Sierra % (Auto) 8.5, Eos % (Auto) 0.3, Baso % (Auto) 0.2, Absolute Neuts (auto) 16.7 H, Absolute Lymphs (auto) 1.02, Nucleated RBC % 0, Diff Path Review September06/30/21 04:31: Sodium 132 L, Potassium 3.8, Chloride 100, Carbon Dioxide 25.0, Anion Gap 7, BUN 26 H, Creatinine 1.37 H, Estim Creat Clear Calc 49.41, Est GFR (MDRD) Af Amer 64, Est GFR (MDRD) Non-Af 53 L, BUN/Creatinine Ratio 19.0, Glucose 114 H, Calcium 7.8 L, Total Bilirubin 0.40, AST 19, ALT 17, Alkaline Phosphatase 80, Total Protein 6.2 L, Albumin 2.6 L, Globulin 3.6, Albumin/Globulin Ratio 0.7 L Micro: Microbiology 06/29/21 18:00 Urine Catheter - Clark Urine Culture - Preliminary GPC Poss Enterococcus sp 06/29/21 16:50 Blood Culture (Wb) - Anticubital Left Bacteria Detection (PCR) - Preliminary Enterococcus faecalis 06/29/21 16:50 Blood Culture (Wb) - Anticubital Left Blood Culture - Preliminary Physical Exam Const alert, oriented x3 and no apparent distress HEENT head/scalp atraumatic and moist oral mucous membranes Head and Scalp: normocephalic Eyes PERRL and conjunctivae normal Neck no lymphadenopathy, supple and no JVD Resp normal respiratory effort, no retractions and no use of accessory muscles Cardio regular rate, regular rhythm and no JVD GI normal to inspection, nondistended, normoactive bowel sounds Extremity normal to inspection and full ROM Skin no rashes or lesions noted, no wounds and skin turgor normal Neuro CN's II-XII intact bilaterally Psych affect normal Assessment & Plan Assessment/Plan (1) Acute renal insufficiency: (2) Acute urinary retention: (3) Acute cystitis: (4) Complicated urinary tract infection: PLAN: Day 1 Discharge planning: Current plan is for patient to discharge home. 1) complicated UTI Cystitis complicated by urinary retention, for which he follows with Dr. Ibarra. Patient's fevers and chills are much improved from admission and patient is making urine with Clark catheter in place. Patient vital signs are stable and patient is afebrile. WBCs have improved admission, currently 19.6. Urine culture shows preliminarily gram-positive cocci, possibly Enterococcus. Will initiate vancomycin and continue Rocephin, await further sensitivities and spec iation, leave Clark catheter in place, continue tamsulosin and dutasteride. 2) acute renal insufficiency Improved for admission, creatinine currently 1.37, baseline appears around 1.2. Elevated creatinine seen on admission likely due to #1 and poor oral intake. We will continue to monitor. 3) DM2 Patient manages his diabetes through therapeutic lifestyle change, no home medications on record. We will continue Accu-Cheks with sliding scale insulin. 4) HTN Stable, continue propranolol, lisinopril, hydrochlorothiazide and amlodipine. 5) REHAN Continue CPAP. 6) hypercholesterolemia Continue statin. DVT prophylaxis - Lovenox Patient seen by Cale Tran PA-C, under the supervision of Dr. Crowell. Documented by User: Dr. Lamin Crowell MD 06/30/21 13:51 Subjective Subjective The patient returned with fever, temperature 103 Fahrenheit, chills, rigor rigors. Patient had urine retention that required ER visit and Clark Clark catheter, 1 day prior to admission. On IV antibiotic ceftriaxone. The nurse called me that patient is growing gram-positive cocci in blood. Objective Data Lab / Micro Data Result Diagrams: 06/30/21 04:31 06/30/21 04:31 Physical Exam Narrative General: Alert, Oriented x3, Cooperative HEENT: Atraumatic, PERRLA, EOMI, Normocephalic Oral: No Gingival or Mucosal Lesions/ Ulcerations Neck: Supple, No JVD, Negative Carotid Bruits Lungs: Air entry diminished in bilateral lung bases. No crepitation/rhonchi Cardiovascular: Regular rate, Regular Rhythm, Normal S1, Normal S2, No murmurs Abdomen: Bowel Sounds Present, Soft, Non Tender, Non-Distended : Clark catheterization. Clear urine. Had urine retention. Patient had burning micturition before catheterization/LUT symptoms. No renal angle tenderness. No suprapubic tenderness. Extremities: No edema, Capillary Refill Less than 3 Seconds Skin: No rashes, No breakdown Musculoskeletal: No Tenderness to Palpation of Joints or Extremities Neurological: Cranial nerves II-XII grossly intact, DTR 2+/4 and Symmetrical, Neuro grossly intact Psych/Mental Status: Normal Affect, Appropriate. Assessment & Plan Assessment/Plan (1) Acute cystitis: PLAN: This patient was seen in conjunction with BRIE Herrera. I have independently interviewed and examined the patient and reviewed pertinent history, examination findings, laboratory and plan of management. I have reviewed the note and agree with the documented findings with the few additional points. In brief, patient is a 80-year-old gentleman admitted with acute urine reten tion, burning micturition, hesitation with fever and chills, high leukocytosis with left shift consistent with complicated cystitis with urine retention. Clark catheterization was done in ER. It seems patient has BPH and is on tamsulosin 0.8 mg daily. Patient supposed to follow Dr. Ibarra. Patient had fever 103 Fahrenheit. Blood culture positive of GPC, Enterococcus and urine culture same organism [id number]. Patient started on vancomycin in the morning. Ceftriaxone discontinued. Diagnosis: Complicated cystitis with bacteremia Due to Enterococcus faecalis. Other comorbidities as mentioned above which include acute renal insufficiency with slightly elevated creatinine. Diabetes mellitus type 2, hypertension, obstructive sleep apnea on CPAP and dyslipidemia. Total time of the visit includes total time spent in counseling or coordination of care, (more than 50% of the total time, spent in obtaining medical information from nurses and other ancillary care providers,explaining to the patient about labs, imaging, diagnosis and management), discussion with sec reporting consultant, review of labs and imaging is 30 minutes; I spent 18 minutes, more than half time and PA spent 12 minutes I have discussed my assessment with BRIE Herrera and orders have been reviewed. Charges/Coding Visit Charges Inpatient E&M: 07035 Subs Hosp L2
[2021-06-30 13:51] LABS: Pathologist Review Reviewed
[2021-06-30 14:01] LABS: Pathologist Review Reviewed
[2021-06-30] MEDS: Ondansetron 4 MG/2 ML Vial IV (15:23)
[2021-06-30] MEDS: Ibuprofen 400 MG Tablet PO (17:09)
[2021-06-30] MEDS: 0.9% Saline Lock 10 ML Syringe IV (18:11)
[2021-06-30] MEDS: Tamsulosin HCl 0.4 MG Capsule 0.8 MG PO (20:35)
[2021-06-30] MEDS: Senna Tablet 2 TABLET PO (20:38)
[2021-06-30] MEDS: Vancomycin IV 1,000 MG/200 ML BAG 200 MG IV (22:05)
[2021-07-01] VITALS (10 sets, daily range): BP systolic 108–147; BP diastolic 57–71; PULSE 66–79; RESP 16–18; TEMP 36.8–38.1; O2SAT 92–98
[2021-07-01 04:57] LABS: Absolute Lymphocyte Count 0.84 X10^3/uL (0.83-4.51); Basophil# 0.06 X10^3/uL; Basophil% 0.5 % (0-1); Eosinophil# 0.13 X10^3/uL; Hematocrit 27.9 % (40-54); Hemoglobin 9.7 g/dL (13.0-16.5); Lymphocyte # 0.84 X10^3/ul (0.83-4.51); Lymphocyte % 6.7 % (19-41); Mean Corp Hgb Conc 34.8 g/dL (32-36); Mean Corpuscular Hgb 32.9 pg (27.0-32.0); Mean Corpuscular Volume 94.6 fL (80-94); Mean Platelet Vol. 10.2 fl (6.2-12.0); Monocyte# 1.43 X10^3/uL; Monocyte% 11.4 % (0-10); NRBC Flagged by Analyzer 0 % (0-5); Neutrophil # 9.99 X10^3/uL (2.7-7.7); Neutrophil % 79.8 % (47-70); Platelet Count 226 K/mm3 (150-450); RBC Distribution Width CV 12.2 % (11.6-14.6); RBC Distribution Width SD 42.8 fl (35.1-43.9); Red Blood Count 2.95 M/mm3 (4.6-6.2); White Blood Count 12.5 K/mm3 (4.4-11.0)
[2021-07-01 05:31] LABS: Anion Gap 5 (5-15); BUN 29 mg/dL (7-18); Calcium,Total 7.8 mg/dL (8.5-10.1); Chloride 100 mmol/L (98-107); Creatinine, Serum 1.45 mg/dL (0.70-1.30); EST Glomerular Filtration Rate 50 mL/min (>60); Est Glom Filt Rate - Afr Amer 60 mL/min (>60); Estimated Creatinine Clearance 46.68 ml/min; Glucose 107 mg/dL (74-106); Potassium 3.3 mmol/L (3.5-5.1); Sodium Level 130 mmol/L (136-145)
[2021-07-01] MEDS: Acetaminophen 325 MG Tablet 650 MG PO ×4 (05:46→23:00)
--- NOTE | 2021-07-01 07:41 | PCM.PN.HOSP ---
Subjective Subjective Follow-up for Enterococcus bacteremia secondary to UTI. Patient is still having low-grade fever 100.6 Fahrenheit. He had high temperature 103 Fahrenheit about 4:20 PM yesterday on 06/30. Discussed with ID. Kidney bladder ultrasound ordered. Patient also has constipation did not resolve with Dulcolax suppository therefore soapsuds enema given. Objective Data Objective Data Vital Signs: Vital Signs Temp Pulse Resp BP Pulse Ox 98.4 F 66 18 108/58 L 93 07/01/21 02:30 07/01/21 02:30 07/01/21 02:30 07/01/21 02:30 06/30/21 20:27 Oxygen Delivery Method Room Air Weight: 218 lb 14.704 oz Body Mass Index (BMI) 28.3 Intake & Output: Intake and Output for Last 24 Hours 06/29/21 06/30/21 07/01/21 23:59 23:59 23:59 Intake Total 1050 / 1050 2630 / 3230 1050 / 1050 Output Total 700 / 700 800 / 1050 1075 / 1075 Balance 350 / 350 1830 / 2180 -25 / -25 Lab / Micro Data Result Diagrams: 07/01/21 04:14 07/01/21 04:14 Labs: Laboratory Results - last 24 hr 06/29/21 16:50: Diff Path Review Reviewed 06/30/21 04:31: Diff Path Review Reviewed 07/01/21 04:14: WBC 12.5 H, RBC 2.95 L, Hgb 9.7 L, Hct 27.9 L, MCV 94.6 H, MCH 32.9 H, MCHC 34.8 D, RDW Std Deviation 42.8, RDW Coeff of Guido 12.2, Plt Count 226, MPV 10.2, Immature Gran % (Auto) 0.600, Neut % (Auto) 79.8 H, Lymph % (Auto) 6.7 L, Yell % (Auto) 11.4 H, Eos % (Auto) 1.0, Baso % (Auto) 0.5, Absolute Neuts (auto) 10.0 H, Absolute Lymphs (auto) 0.84, Nucleated RBC % 0 07/01/21 04:14: Sodium 130 L, Potassium 3.3 L, Chloride 100, Carbon Dioxide 25.0, Anion Gap 5, BUN 29 H, Creatinine 1.45 H, Estim Creat Clear Calc 46.68, Est GFR (MDRD) Af Amer 60, Est GFR (MDRD) Non-Af 50 L, BUN/Creatinine Ratio 20.0, Glucose 107 H, Calcium 7.8 L Micro: Microbiology 06/29/21 18:00 Urine Catheter - Clark Urine Culture - Preliminary GPC Poss Enterococcus sp 06/29/21 16:50 Blood Culture (Wb) - Anticubital Left Bacteria Detection (PCR) - Preliminary Enterococcus faecalis 06/29/21 16:50 Blood Culture (Wb) - Anticubital Left Blood Culture - Preliminary Physical Exam Narrative General: Alert, Oriented x3, Cooperative, febrile HEENT: Atraumatic, PERRLA, EOMI, Normocephalic Oral: No Gingival or Mucosal Lesions/ Ulcerations Neck: Supple, No JVD, Negative Carotid Bruits Lungs: Air entry diminished in bilateral lung bases. No crepitation/rhonchi Cardiovascular: Regular rate, Regular Rhythm, Normal S1, Normal S2, No murmurs Abdomen: Bowel Sounds Present, Soft, Non Tender, Non-Distended : Bladder outlet obstruction with urine retention. Clark catheterization. Clear urine. No renal angle tenderness. No suprapubic tenderness. Extremities: No edema, Capillary Refill Less than 3 Seconds Skin: No rashes, No breakdown Musculoskeletal: No Tenderness to Palpation of Joints or Extremities Neurological: Cranial nerves II-XII grossly intact, DTR 2+/4 and Symmetrical, Neuro grossly intact Psych/Mental Status: Normal Affect, Appropriate. Assessment & Plan Assessment/Plan (1) Acute cystitis: PLAN: patient is a 80-year-old gentleman admitted with acute urine retention, burning micturition, hesitation with fever and chills, high leukocytosis with left shift consistent with complicated cystitis with urine retention. Clark catheterization was done in ER. It seems patient has BPH and is on tamsulosin 0.8 mg daily. Patient supposed to follow Dr. Ibarra. Patient had fever 103 Fahrenheit. Blood culture positive of GPC, Enterococcus and urine culture same organism [id number]. Patient started on vancomycin in the morning. Ceftriaxone discontinued. Diagnosis: Complicated cystitis with bacteremia Due to Enterococcus faecalis. Other comorbidities as mentioned above which include acute renal insufficiency with slightly elevated creatinine. Diabetes mellitus type 2, hypertension, obstructive sleep apnea on CPAP and dyslipidemia. 1) complicated UTI due to GPC, Enterococcus faecalis with bacteremia with bladder outlet obstruction secondary to BPH: Patient has cystitis complicated by urinary retention, for which he follows with Dr. Ibarra. Clark catheterization. Continue to be febrile. Discussed with ID. Repeat blood culture ordered. Leukocytosis improving. Ultrasound kidney and bladder ordered. If could not visualize prostate will need prostate ultrasound per rectum. Urine culture shows [id number] colonies of Enterococcus faecalis. Blood culture, both bottles positive of Enterococcus faecalis, sensitive to vancomycin. Continue tamsulosin and dutasteride. IV Zosyn was also started yesterday as patient continued to spike fever on vancomycin. Consult ID for further opinion and recommendation. 2) acute kidney injury 07/01: Worsening of creatinine from 1.37-1.45 but patient baseline is around 1.0. Might be due to urine retention/UTI/prerenal. Hypokalemia, potassium is getting replaced. 3) DM2 Patient manages his diabetes through therapeutic lifestyle change, no home medications on record. continue Accu-Cheks with sliding scale insulin. Glucose is controlled 4) HTN Stable, continue propranolol, lisinopril, hydrochlorothiazide and amlodipine. 5) REHAN Continue CPAP. 6) hypercholesterolemia Continue statin. DVT prophylaxis - Lovenox Total time of the visit includes total time spent in counseling or coordination of care, (more than 50% of the total time, spent in obtaining medical information from nurses and other ancillary care providers,explaining to the patient about labs, imaging, diagnosis and management), discussion with contamination consultant, review of labs and imaging is 30 minutes Charges/Coding Visit Charges Inpatient E&M: 11211 Subs Hosp L2
[2021-07-01] MEDS: Senna Tablet 2 TABLET PO ×2 (08:52→23:03)
[2021-07-01] MEDS: Enoxaparin 40 MG/0.4 ML Syringe SC (08:53)
[2021-07-01] MEDS: FLUoxetine 20 MG Capsule 40 MG PO (08:53)
[2021-07-01] MEDS: amLODIPine 5 MG Tablet PO ×2 (08:53→23:04)
[2021-07-01] MEDS: Lisinopril 10 MG Tablet PO ×2 (08:53→23:02)
[2021-07-01] MEDS: Propranolol 10 MG Tablet 20 MG PO ×2 (08:54→23:03)
[2021-07-01] MEDS: Finasteride 5 MG Tablet PO (08:54)
[2021-07-01] MEDS: Aspirin E.C. 81 MG Tablet PO (08:54)
[2021-07-01] MEDS: Potassium Chloride Oral Tablet 20 MEQ 40 MEQ PO (09:04)
[2021-07-01] MEDS: 0.9% Normal Saline 1,000 ML 100 ML IV (09:05)
[2021-07-01] MEDS: Vancomycin IV 1,000 MG/200 ML BAG 200 MG IV ×2 (10:46→23:02)
[2021-07-01] MEDS: Bisacodyl 10 MG Suppository RC (12:07)
--- NOTE | 2021-07-01 14:28 | US_ITS ---
STUDY: RENAL ULTRASOUND - COMPLETE REASON FOR EXAM: Male, 80 years old. Enterococcus bacteremia with UTI, BPH with ACOSTA TECHNIQUE: Ultrasound evaluation of the kidneys was performed with real-time and static ivey-scale imaging. COMPARISON: None. FINDINGS: RIGHT KIDNEY: Normal location of the right kidney, which is normal in size. The right kidney measures 11.6 x 5.8 x 6.6 cm. There is a normal cortex of the right kidney. The renal cortex measures 2.4 cm. There is a cyst measuring 2.3 x 2 cm There are no right renal calculi. There is no right hydronephrosis. DISTAL RIGHT URETER: There is non-visualization of the distal right ureter. There is no demonstrated right ureterovesical junction calculus. There is a visualized right ureteral jet. LEFT KIDNEY: Normal location of the left kidney, which is normal in size. The left kidney measures 10.7 x 4 x 5.3 cm. There is a normal cortex of the left kidney. The renal cortex measures 2 cm. There is no left renal mass or cyst. There are no left renal calculi. There is no left hydronephrosis. DISTAL LEFT URETER: There is non-visualization of the distal left ureter. There is no demonstrated left ureterovesical junction calculus. There is a visualized left ureteral jet. Bleed BLADDER: The distended urinary bladder has a volume of 86.75 ml. MERCADO catheter noted within the bladder. There is a normal wall thickness of the distended urinary bladder. There is no demonstrated mass within the urinary bladder. There are no demonstrated bladder calculi. US/Kidney and Bladder IMPRESSION: Small right renal cyst measuring 2.3 x 2 cm. No other significant abnormalities Electronically Signed: Jaguar Harry MD at 17:10 EST ,
--- NOTE | 2021-07-01 14:28 | US_ITS ---
PROCEDURES: TRANSRECTAL ULTRASOUND GUIDED - PROSTATE REASON FOR EXAM: Male, 80 years old. To look for prostatism/prostate abscess TECHNIQUE: Ultrasound evaluation of the prostate was performed with real-time and static palmer-scale imaging. COMPARISON: None. FINDINGS: Transrectal examination was performed. The prostatic volume measures 14.7 cc. The right seminal vesicle measures 2.2 cm. The left seminal vesicle measures 2.4 cm. A 1.9 cm x 1.6 x 2 x 1.7 cm cystic/solid nodule is seen in the left prostatic lobe. A solid nodule measuring 2 cm x 1.4 cm x 1.8 cm is seen in the left prostatic lobe as well. No evidence of a prostatic abscess. US/Prostate IMPRESSION: No evidence of abscess. 2, nodules are seen in the left side of the prostate as described. Prostatic volume is 14.7 cc. Electronically Signed: Cb Vaughn MD at 10:49 EST ,
[2021-07-01] MEDS: 0.9% Saline Lock 10 ML Syringe IV ×2 (17:15→23:18)
[2021-07-01] MEDS: MELATONIN 3 MG TABLET PO (23:01)
[2021-07-01] MEDS: Tamsulosin HCl 0.4 MG Capsule 0.8 MG PO (23:03)
[2021-07-01] MEDS: hydrOXYzine PAM 25 MG Capsule PO (23:11)
[2021-07-01 23:37] LABS: Vancomycin, Trough Level 16.4 ug/mL (5.0-15.0)
[2021-07-02] VITALS (9 sets, daily range): BP systolic 114–174; BP diastolic 63–71; PULSE 65–84; RESP 12–20; TEMP 36.3–37.3; O2SAT 86–95
--- NOTE | 2021-07-02 01:03 | PCM.RX.CS ---
Consult Pharmacy has been consulted to manage selected antiobiotic: Vancomycin Type of Consult: Follow-up Labs: Sodium 130 mmol/L (136-145) L 07/01/21 04:14 Potassium 3.3 mmol/L (3.5-5.1) L 07/01/21 04:14 Chloride 100 mmol/L (98-107) 07/01/21 04:14 Carbon Dioxide 25.0 mmol/L (21.0-32.0) 07/01/21 04:14 Anion Gap 5 (5-15) 07/01/21 04:14 BUN 29 mg/dL (7-18) H 07/01/21 04:14 Creatinine 1.45 mg/dL (0.70-1.30) H 07/01/21 04:14 Est GFR (MDRD) Af Amer 60 mL/min (>60) 07/01/21 04:14 Est GFR (MDRD) Non-Af 50 mL/min (>60) L 07/01/21 04:14 BUN/Creatinine Ratio 20.0 RATIO (10-20) 07/01/21 04:14 Glucose 107 mg/dL (74-106) H 07/01/21 04:14 Vancomycin Trough 16.4 ug/mL (5.0-15.0) H 07/01/21 22:30 Microbiology: Microbiology 06/29/21 18:00 Urine Catheter - Clark Urine Culture - Final Enterococcus faecalis 06/29/21 16:50 Blood Culture (Wb) - Anticubital Left Bacteria Detection (PCR) - Preliminary Enterococcus faecalis 06/29/21 16:50 Blood Culture (Wb) - Anticubital Left Blood Culture - Preliminary Goal Trough: 15-20 mcg/mL Pharmacy Plan for Drug Dosing: Pharmacy Service will continue to monitor and adjust dosing as required. TROUGH 16.4 IN RANGE, NO CHANGES NOW. FOLLOW UP TROUGH IN 2 DAYS Follow-Up Labs: Trough Vancomycin Labs to be done on [date and time ordered]: 07/03 @ 6987
[2021-07-02 06:12] LABS: Absolute Lymphocyte Count 0.73 X10^3/uL (0.83-4.51); Absolute Neutrophil Count 7.6 X10^3/uL (2.0-7.7); Basophil# 0.08 X10^3/uL; Basophil% 0.8 % (0-1); Eosinophil# 0.23 X10^3/uL; Eosinophils% 2.3 % (0-5); Hematocrit 26.2 % (40-54); Lymphocyte # 0.73 X10^3/ul (0.83-4.51); Lymphocyte % 7.4 % (19-41); Mean Corp Hgb Conc 34.4 g/dL (32-36); Mean Corpuscular Hgb 31.8 pg (27.0-32.0); Mean Corpuscular Volume 92.6 fL (80-94); Mean Platelet Vol. 9.6 fl (6.2-12.0); Monocyte# 1.15 X10^3/uL; Monocyte% 11.7 % (0-10); NRBC Flagged by Analyzer 0 % (0-5); Neutrophil # 7.57 X10^3/uL (2.7-7.7); Neutrophil % 77.3 % (47-70); Platelet Count 219 K/mm3 (150-450); RBC Distribution Width CV 12.4 % (11.6-14.6); RBC Distribution Width SD 42.4 fl (35.1-43.9); Red Blood Count 2.83 M/mm3 (4.6-6.2); White Blood Count 9.8 K/mm3 (4.4-11.0)
[2021-07-02 06:40] LABS: Anion Gap 7 (5-15); BUN 19 mg/dL (7-18); BUN/Creat Ratio 14.6 RATIO (10-20); Chloride 102 mmol/L (98-107); EST Glomerular Filtration Rate 57 mL/min (>60); Est Glom Filt Rate - Afr Amer 68 mL/min (>60); Estimated Creatinine Clearance 52.07 ml/min; Glucose 106 mg/dL (74-106); Potassium 3.5 mmol/L (3.5-5.1); Sodium Level 131 mmol/L (136-145)
--- NOTE | 2021-07-02 07:33 | PCM.PN.HOSP ---
Subjective Subjective Follow-up for complicated UTI with Enterococcus bacteremia. The patient had fever 100.6 Fahrenheit yesterday about afternoon. Patient had bowel movement with enema yesterday. Mild feeling of gaseous distention, belching. Denies perineal pain. Has Clark catheter. Objective Data Objective Data Vital Signs: Vital Signs Temp Pulse Resp BP Pulse Ox 97.3 F L 65 18 114/63 92 07/02/21 03:22 07/02/21 03:22 07/02/21 03:22 07/02/21 03:22 07/02/21 03:22 Oxygen Flow Rate (L/min) 2 Oxygen Delivery Method Nasal Cannula Weight: 220 lb 10.923 oz Body Mass Index (BMI) 28.3 Intake & Output: Intake and Output for Last 24 Hours 06/30/21 07/01/21 07/02/21 23:59 23:59 23:59 Intake Total 2630 / 3230 4650.00 / 4650.00 250 / 250 Output Total 800 / 1050 2725 / 2725 350 / 350 Balance 1830 / 2180 1925.00 / 1925.00 -100 / -100 Lab / Micro Data Result Diagrams: 07/02/21 05:55 07/02/21 05:55 Labs: Laboratory Results - last 24 hr 07/01/21 22:30: Vancomycin Trough 16.4 H 07/02/21 05:55: WBC 9.8, RBC 2.83 L, Hgb 9.0 L, Hct 26.2 L, MCV 92.6, MCH 31.8, MCHC 34.4, RDW Std Deviation 42.4, RDW Coeff of Guido 12.4, Plt Count 219, MPV 9.6, Immature Gran % (Auto) 0.500, Neut % (Auto) 77.3 H, Lymph % (Auto) 7.4 L, Reynolds % (Auto) 11.7 H, Eos % (Auto) 2.3, Baso % (Auto) 0.8, Absolute Neuts (auto) 7.6, Absolute Lymphs (auto) 0.73 L, Nucleated RBC % 0 07/02/21 05:55: Sodium 131 L, Potassium 3.5, Chloride 102, Carbon Dioxide 22.0, Anion Gap 7, BUN 19 H, Creatinine 1.30, Estim Creat Clear Calc 52.07, Est GFR (MDRD) Af Amer 68, Est GFR (MDRD) Non-Af 57 L, BUN/Creatinine Ratio 14.6, Glucose 106, Calcium 8.0 L Micro: Microbiology 06/29/21 18:00 Urine Catheter - Clark Urine Culture - Final Enterococcus faecalis 06/29/21 16:50 Blood Culture (Wb) - Anticubital Left Bacteria Detection (PCR) - Preliminary Enterococcus faecalis 06/29/21 16:50 Blood Culture (Wb) - Anticubital Left Blood Culture - Preliminary Radiography Diagnostic Testing: Radiology Impression Renal Ultrasound 07/01/21 14:28 IMPRESSION: Small right renal cyst measuring 2.3 x 2 cm. No other significant abnormalities Electronically Signed: Jaguar Harry MD at 17:10 EST , Physical Exam Narrative General: Alert, Oriented x3, Cooperative, febrile HEENT: Atraumatic, PERRLA, EOMI, Normocephalic Oral: No Gingival or Mucosal Lesions/ Ulcerations Neck: Supple, No JVD, Negative Carotid Bruits Lungs: Air entry diminished in bilateral lung bases. No crepitation/rhonchi Cardiovascular: Regular rate, Regular Rhythm, Normal S1, Normal S2, No murmurs Abdomen: Bowel Sounds Present, Soft, Non Tender, mild nonspecific gaseous distention. : Bladder outlet obstruction with urine retention. Clark catheterization. Clear urine. No renal angle tenderness. No suprapubic tenderness. Extremities: No edema, Capillary Refill Less than 3 Seconds Skin: No rashes, No breakdown Musculoskeletal: No Tenderness to Palpation of Joints or Extremities Neurological: Cranial nerves II-XII grossly intact, DTR 2+/4 and Symmetrical, Neuro grossly intact Psych/Mental Status: Normal Affect, Appropriate. HEENT normocephalic, head/scalp atraumatic and moist oral mucous membranes Eyes PERRL, conjunctivae normal and no scleral icterus Neck no lymphadenopathy, supple and no JVD General: trachea midline Lymph Lymphatic: no lymphadenopathy noted Resp normal respiratory effort, normal air movement, no retractions, no use of accessory muscles and clear to auscultation bilaterally Effort and Inspection: tachypneic Cardio regular rate, regular rhythm, S1 normal heart sound, S2 normal heart sound, no JVD and peripheral pulses 2+ throughout GI normal to inspection, nondistended, normoactive bowel sounds, soft to palpation and non-tender Extremity normal to inspection, full ROM and normal capillary refill Skin no rashes or lesions noted, no wounds and skin turgor normal General Skin Exam: no breakdown and turgor normal Lesions: no lesions Rashes: no rashes Neuro CN's II-XII intact bilaterally, no focal motor deficits and no sensory deficits noted Speech: speech normal Psych thought process normal and affect normal Appearance: appropriate Charges/Coding Visit Charges Inpatient E&M: 66655 Subs Hosp L2 Assessment/Plan Assessment/Plan (1) Acute cystitis: CODE(S): N30.00 - Acute cystitis without hematuria QUALIFIERS: Hematuria presence: without hematuria Qualified Code(s): N30.00 - Acute cystitis without hematuria PLAN: The patient is a 80-year-old gentleman admitted with acute urine retention, burning micturition, hesitation with fever and chills, high leukocytosis with left shift consistent with complicated cystitis with urine retention. Clark catheterization was done in ER. Patient had fever 103 Fahrenheit. Blood culture positive of GPC, Enterococcus and urine culture same organism [id number]. 1) complicated UTI due to GPC, Enterococcus faecalis with bacteremia with bladder outlet obstruction secondary to BPH: Patient has cystitis complicated by urinary retention, for which he follows with Dr. Ibarra. Interim low-grade fever. Discussed with ID. Repeat blood culture ordered. Leukocytosis improving. Ultrasound kidney and bladder ordered. If could not visualize prostate will need prostate ultrasound per rectum. Urine culture shows [id number] colonies of Enterococcus faecalis. Blood culture, both bottles positive of Enterococcus faecalis, sensitive to vancomycin. Continue tamsulosin and dutasteride. IV Zosyn was also started yesterday as patient continued to spike fever on vancomycin. Consult ID for further opinion and recommendation. 07/02: Renal ultrasound shows incidental renal cyst but no other acute abnormality. Prostate ultrasound shows no evidence of abscess. Nodules in the left side of prostate. Patient last fever 100.6 Fahrenheit around noon yesterday. IV Zosyn discontinued. Discussed with ID for further opinion about recommendation. Mild dyspeptic symptoms. Patient on PPI. Mild hypokalemia potassium replaced. On simethicone. Patient moved bowel. Psyllium and senna S for constipation. Chronic constipation. 2) acute kidney injury 07/01: Worsening of creatinine from 1.37-1.45 but patient baseline is around 1.0. Might be due to urine retention/UTI/prerenal. Hypokalemia, potassium is getting replaced. 06/22: ISMAEL resolved. Creatinine on baseline 1.3. 3) DM2 Patient manages his diabetes through therapeutic lifestyle change, no home medications on record. continue Accu-Cheks with sliding scale insulin. Glucose is controlled 4) HTN Stable, continue propranolol, lisinopril, hydrochlorothiazide and amlodipine. 5) REHAN Continue CPAP. 6) hypercholesterolemia Continue statin. DVT prophylaxis - Lovenox Total time of the visit includes total time spent in counseling or coordination of care, (more than 50% of the total time, spent in obtaining medical information from nurses and other ancillary care providers,explaining to the patient about labs, imaging, diagnosis and management), discussion with databases software consultant, review of labs and imaging is 30 minutes Discharge plan: Once patient is afebrile for about 36-hour, patient can be discharged home ampicillin. Clinical Impression(s) from Imaging Studies Prostate Ultrasound 07/01/21 14:28 IMPRESSION: No evidence of abscess. 2, nodules are seen in the left side of the prostate as described. Prostatic volume is 14.7 cc. Electronically Signed: Cb Vaughn MD at 10:49 EST , Renal Ultrasound 07/01/21 14:28
[2021-07-02] MEDS: FLUoxetine 20 MG Capsule 40 MG PO (08:52)
[2021-07-02] MEDS: Senna Tablet 2 TABLET PO ×2 (08:52→22:27)
[2021-07-02] MEDS: Propranolol 10 MG Tablet 20 MG PO ×2 (08:53→22:26)
[2021-07-02] MEDS: Aspirin E.C. 81 MG Tablet PO (08:53)
[2021-07-02] MEDS: Finasteride 5 MG Tablet PO (08:53)
[2021-07-02] MEDS: amLODIPine 5 MG Tablet PO ×2 (08:53→22:25)
[2021-07-02] MEDS: Acetaminophen 325 MG Tablet 650 MG PO ×2 (08:53→20:03)
[2021-07-02] MEDS: Enoxaparin 40 MG/0.4 ML Syringe SC (08:53)
[2021-07-02] MEDS: Potassium Chloride Oral Tablet 20 MEQ 40 MEQ PO (09:46)
[2021-07-02] MEDS: Psyllium 1 PACKET PO (09:46)
[2021-07-02] MEDS: Lisinopril 10 MG Tablet PO (09:47)
[2021-07-02] MEDS: Vancomycin IV 1,000 MG/200 ML BAG 200 MG IV (11:05)
--- NOTE | 2021-07-02 12:11 | CASEMGMT ---
Addendum entered by Rupal Tyler 07/02/21 14:26: TC to [facility], spoke with Karla, referral faxed with prelim info. Addendum entered by Rupal Tyler 07/02/21 14:18: DENNIS JEFFRIES in to pt room. Pt and have spoken to pt dtr and HHC first choice is [facility] followed by [facility]. Pt to use [facility] for infusion. TC to [facility], spoke with Fara, referral made. She will call back with acceptance. Addendum entered by Rupal Tyler 07/02/21 12:12: DENNIS JEFFRIES notified by ID that pt will dc with IV atb. DENNIS JEFFRIES back into pt room to discuss. Pt present at bedside. Patient was provided a list of [facility] providers including quality and resource use data and consistent with the patient?s preferred geographic region, medical needs, and insurance network. They would like to review list and ask dtr her recommendations. They state their dtr who is a nurse would be able to assist with IV administration. Original Note: DENNIS JEFFRIES in to pt room to discuss dc planning, pt states he feels well with therapy and does not feel like he needs to have any HHC or go to outpt therapy. Pt will be dc'd home with claudia. Pt states he feels he can manage this without nursing as well. He states his dtr is a director of community center in [facility]. DENNIS JEFFRIES to follow.
--- NOTE | 2021-07-02 12:21 | CON.PCM.ID_ITS ---
Assessment & Plan Assessment/Plan (1) Bacteremia: PLAN: severe sepsis due to Enterococcus bacteremia from UTI, suspected prostatitis. Given splinter hemorrhages, concern for endocarditis. Will change abx to amp/ceftriaxone, repeat bcx, check TTE. May need VIOLETTE depending on TTE results. Temp and wbc improved, ISMAEL better. Will follow, thank you, d/w Dr. Crowell. Fully covid vaccinated. HPI Consult Data Date of Consult: 07/02/21 HPI Narrative HPI Narrative: NARESH MONZON, is a 80 M who presented 06/29 with one week of fever, chills, dysuria, straining to urinary, weak stream, and nocturnal urine frequency. Came to ED, taylor placed for obstruction. Admitted on ceftriaxone for uti, changed to vanc due to ongoing fever and growth of enterococcus from ucx and bcx. Feeling better, fever resolved. No n/v/d. Fully covid vaccinated x3. Full ROS performed and neg except as noted above. [facility] Medical History Atherosclerotic heart disease of [place] coronary artery without angina pectoris Benign prostatic hypertrophy Coronary artery disease Dizziness and giddiness Dyspnea Essential hypertension Fatigue H/O appendicitis 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 residential use of drug Neck pain on left side REHAN (obstructive sleep apnea) Precordial chest pain Presence of stent in coronary artery (~09/08/10) PTSD (post-traumatic stress disorder) Pulmonary hypertension Pure hypercholesterolemia Restless legs syndrome (RLS) Shortness of breath Syncope and collapse Home Medications multivitamin 1 ea PO DAILY 12/08/15 [History Last Taken 06/29/21] fluoxetine 40 mg capsule 40 mg PO DAILY 07/04/18 [History Last Taken 06/29/21] aspirin 81 mg tablet,delayed release 81 mg PO DAILY #1 tab 09/18/19 [Rx Last Taken 06/29/21] tamsulosin 0.4 mg capsule 0.8 mg PO QHS cap 09/18/19 [History Last Taken 12/10] oxycodone 5 mg PO Q6H PRN PRN 01/26/20 [History Last Taken Unknown] nitroglycerin 0.4 mg sublingual tablet 0.4 mg SUBLINGUAL Q5-15M PRN #25 tab 03/17/20 [Rx Last Taken Unknown] acetaminophen 500 mg tablet 500 mg PO Q6H PRN 06/17/20 [History Last Taken Unknown] propranolol 20 mg tablet 20 mg PO BID #180 tab 02/23/21 [Rx Last Taken 06/29/21] lisinopril 10 mg tablet 10 mg PO BID #180 tab 03/01/21 [Rx Last Taken 06/29/21] amlodipine 5 mg tablet 5 mg PO BID tab 03/17/21 [History Last Taken Unknown] hydrochlorothiazide 25 mg tablet 12.5 mg PO BID #90 tab 05/18/21 [Rx Last Taken 06/29/21] cephalexin 500 mg PO Q6H 10 Days #40 cap 06/28/21 [Rx Last Taken 06/29/21] diclofenac sodium 1 ea TOPICAL BID 06/29/21 [History Last Taken Unknown] dutasteride 0.5 mg PO DAILY 06/29/21 [History Last Taken 06/29/21] rosuvastatin 10 mg PO QHS 06/29/21 [History Last Taken 06/29/21] Allergy/AdvReac Type Severity Reaction Status Date / Time acetaminophen [From Vicodin] Allergy Other Verified 06/29/21 16:49 hydrocodone [From Vicodin] Allergy Other Verified 06/29/21 16:49 orphenadrine Allergy Unknown Verified 06/29/21 16:49 pregabalin Allergy Swelling Verified 06/29/21 16:49 atorvastatin [From Lipitor] AdvReac Severe Intolerance Verified 06/29/21 16:49 ,Myalgias Family History Father CVA (cerebral vascular accident) Mother Cardiomegaly Brother CAD (coronary artery disease) Hx CABG and valve replacement Diabetes Brother History of heart valve replacement Brother Rheumatic fever Sister Hypertension Aortic aneurysm H/O aortic valve replacement Brother Cancer bladder Brother Thyroid disorder Surgical History (Updated 06/29/21 @ 19:21 by Radha Hilliard) H/O heart artery stent History of appendectomy History of hydrocelectomy History of right hip replacement History of vasectomy hx cervical stenosis Presence of coronary angioplasty implant and graft (~09/08/10) S/P appy S/P right knee arthroscopy Social History household members: spouse housing: house Smoking Status: Former smoker pack-years: 20 Tobacco: How many years used: 22 second hand exposure: No alcohol intake: never substance use type: does not use caffeine: Yes Type: carbonated beverages Number of servings: 1 and tea what type of physical activity do you participate in: none seatbelt use: always do you feel safe at home: Yes Physical Exam Const alert, oriented x3 and no apparent distress General Appearance: cooperative Exam Limitations: no limitations HEENT normocephalic and head/scalp atraumatic Eyes PERRL and EOMs intact bilaterally Neck supple and No nodes Cardio regular rate, regular rhythm and no murmurs GI soft to palpation, non-tender and non-distended Extremity no clubbing, cyanosis or edema Skin Skin Narrative: No rash. Splinter hemorrhage on L 2nd finger, R 2nd and 3rd fingers, and L 1st toe. Neuro CN's II-XII intact bilaterally Lab / Micro Data Result Diagrams: 07/02/21 05:55 07/02/21 05:55 Labs: Laboratory Results - last 24 hr 07/01/21 22:30: Vancomycin Trough 16.4 H 07/02/21 05:55: WBC 9.8, RBC 2.83 L, Hgb 9.0 L, Hct 26.2 L, MCV 92.6, MCH 31.8, MCHC 34.4, RDW Std Deviation 42.4, RDW Coeff of Guido 12.4, Plt Count 219, MPV 9.6, Immature Gran % (Auto) 0.500, Neut % (Auto) 77.3 H, Lymph % (Auto) 7.4 L, George % (Auto) 11.7 H, Eos % (Auto) 2.3, Baso % (Auto) 0.8, Absolute Neuts (auto) 7.6, Absolute Lymphs (auto) 0.73 L, Nucleated RBC % 0 07/02/21 05:55: Sodium 131 L, Potassium 3.5, Chloride 102, Carbon Dioxide 22.0, Anion Gap 7, BUN 19 H, Creatinine 1.30, Estim Creat Clear Calc 52.07, Est GFR (MDRD) Af Amer 68, Est GFR (MDRD) Non-Af 57 L, BUN/Creatinine Ratio 14.6, Glucose 106, Calcium 8.0 L Micro: Microbiology 06/29/21 17:13 Blood Culture (Wb) - Anticubital Left Blood Culture - Preliminary No growth in 48 hours. 06/29/21 16:50 Blood Culture (Wb) - Anticubital Left Bacteria Detection (PCR) - Preliminary Enterococcus faecalis 06/29/21 16:50 Blood Culture (Wb) - Anticubital Left Blood Culture - Final Enterococcus faecalis 06/29/21 18:00 Urine Catheter - Taylor Urine Culture - Final Enterococcus faecalis Radiology Impression Prostate Ultrasound 07/01/21 14:28 IMPRESSION: No evidence of abscess. 2, nodules are seen in the left side of the prostate as described. Prostatic volume is 14.7 cc. Electronically Signed: Cb Vaughn MD at 10:49 EST , Renal Ultrasound 07/01/21 14:28 IMPRESSION: Small right renal cyst measuring 2.3 x 2 cm. No other significant abnormalities Electronically Signed: Jaguar Harry MD at 17:10 EST ,
[2021-07-02] MEDS: Pantoprazole Sodium 40 MG Tablet PO (12:57)
--- NOTE | 2021-07-02 15:20 | CASEMGMT ---
Addendum entered by Xavier De Paz 07/02/21 15:26: Confirmation received that fax to [facility] went through successfully. Original Note: DENNIS JEFFRIES NOTE: Call received from [facility]. They state they would not be able to do SOC until next Mon, d/t staffing. Call placed to Hilda @ [facility], as this is pt's 2nd [facility] choice. Referral made, providing preliminary information. Hilda states will look over information and f/u with DENNIS Goldsmith on Monday. Ophelia REIS RN, CM
--- NOTE | 2021-07-02 15:34 | ECHOCS_ITS ---
Reason For Study: ARRHYTHMIA Procedure This was a 2D Doppler, Color Flow transthoracic echocardiogram. The study was technically difficult. Contrast injection was performed. Exam performed portable in patient room. Left Ventricle Normal left ventricle. The estimated ejection fraction is 55-60 %. Right Ventricle Normal right ventricle. Normal systolic function. Atria The left atrium is mildly enlarged. The right atrium is mildly enlarged. Mitral Valve The mitral valve is structurally normal. No prolapse or stenosis seen. Mild (1+) mitral valve insufficiency. Tricuspid Valve Normal tricuspid valve. Trivial tricuspid valve insufficiency. Aortic Valve Aortic sclerosis, no stenosis. Pulmonic Valve The pulmonic valve is not well visualized. Great Vessels Normal aortic root. Pericardium/Pleural No pericardial effusion. Medication Diluted definity 3.0ml given slow IV push to enhance endocardial definition. MMode/2D Measurements & Calculations LVIDd: 4.7 cm IVSd: 0.96 cm Ao root diam: 3.1 cm LVIDs: 2.9 cm LVPWd: 0.97 cm RVDd: 3.6 cm FS: 38.9 % LAV(MOD-bp): 41.9 ml LVAd ap4: 32.5 cm2 LVAd ap2: 27.8 cm2 LAV(MOD-bp) Indexed: 19.3 ml/m2 LVLd ap4: 7.7 cm LVLd ap2: 7.6 cm LAV(MOD-sp2): 42.9 ml EDV(MOD-sp4): 110.7 ml EDV(MOD-sp2): 82.8 ml LAV(MOD-sp4): 40.6 ml EDV(sp4-el): 116.1 ml EDV(sp2-el): 86.4 ml LVAs ap4: 17.2 cm2 LVAs ap2: 13.3 cm2 LVLs ap4: 5.9 cm LVLs ap2: 6.0 cm ESV(MOD-sp4): 40.2 ml ESV(MOD-sp2): 24.2 ml ESV(sp4-el): 42.3 ml ESV(sp2-el): 25.0 ml EF(MOD-sp4): 63.7 % EF(MOD-sp2): 70.8 % EF(sp4-el): 63.6 % SV(MOD-sp4): 70.5 ml SV(MOD-sp2): 58.6 ml SV(sp4-el): 73.8 ml LA A4 area: 16.7 cm2 LA dimension(2D): 4.2 cm RA A4 area: 18.8 cm2 Doppler Measurements & Calculations MV E max eduardo: 90.7 cm/sec Lat Peak E' Eduardo: 9.7 cm/sec Med Peak E' Eduardo: 10.5 cm/sec MV A max eduardo: 101.2 cm/sec E/E' lat: 9.3 E/E' med: 8.6 MV E/A: 0.90 Ao V2 max: 161.7 cm/sec LV V1 max: 123.9 cm/sec TR max eduardo: 318.3 cm/sec Ao max P.5 mmHg LV V1 max P.1 mmHg TR max P.5 mmHg ECHO/Echo Complete W/ Contrast Interpretation Summary The estimated ejection fraction is 55-60 %. RVSP calculated 40 mmhg No significant changes from prior echo Ordering Physician: Carlos Enrique Crane Referring Physician: GEORGE SONG Performed By: Katelin Degroot, TRAVISCS, RVT
[2021-07-02] MEDS: 0.9% Saline Lock 10 ML Syringe IV (18:08)
[2021-07-02] MEDS: MELATONIN 3 MG TABLET PO (22:25)
[2021-07-02] MEDS: Tamsulosin HCl 0.4 MG Capsule 0.8 MG PO (22:26)
[2021-07-02] MEDS: hydrOXYzine PAM 25 MG Capsule PO (22:27)
[2021-07-02] MEDS: Albuterol 2.5 MG/3 ML VIAL.NEB. INHALATION (23:04)
[2021-07-03] VITALS (9 sets, daily range): BP systolic 125–171; BP diastolic 60–71; PULSE 69–80; RESP 18–24; TEMP 36.7–37; O2SAT 86–95
[2021-07-03 04:57] LABS: Absolute Lymphocyte Count 0.74 X10^3/uL (0.83-4.51); Absolute Neutrophil Count 7.3 X10^3/uL (2.0-7.7); Basophil# 0.07 X10^3/uL; Basophil% 0.7 % (0-1); Eosinophil# 0.28 X10^3/uL; Hematocrit 27.8 % (40-54); Hemoglobin 9.6 g/dL (13.0-16.5); Lymphocyte # 0.74 X10^3/ul (0.83-4.51); Lymphocyte % 7.8 % (19-41); Mean Corp Hgb Conc 34.5 g/dL (32-36); Mean Corpuscular Hgb 31.4 pg (27.0-32.0); Mean Corpuscular Volume 90.8 fL (80-94); Mean Platelet Vol. 9.7 fl (6.2-12.0); Monocyte# 1.02 X10^3/uL; Monocyte% 10.8 % (0-10); NRBC Flagged by Analyzer 0 % (0-5); Neutrophil % 77.3 % (47-70); Platelet Count 282 K/mm3 (150-450); RBC Distribution Width CV 12.5 % (11.6-14.6); RBC Distribution Width SD 41.7 fl (35.1-43.9); Red Blood Count 3.06 M/mm3 (4.6-6.2); White Blood Count 9.5 K/mm3 (4.4-11.0)
[2021-07-03 05:22] LABS: Anion Gap 7 (5-15); BUN 15 mg/dL (7-18); BUN/Creat Ratio 12.6 RATIO (10-20); Calcium,Total 8.2 mg/dL (8.5-10.1); Chloride 105 mmol/L (98-107); Creatinine, Serum 1.19 mg/dL (0.70-1.30); EST Glomerular Filtration Rate 63 mL/min (>60); Est Glom Filt Rate - Afr Amer 76 mL/min (>60); Estimated Creatinine Clearance 56.88 ml/min; Glucose 102 mg/dL (74-106); Potassium 3.9 mmol/L (3.5-5.1); Sodium Level 134 mmol/L (136-145)
--- NOTE | 2021-07-03 07:35 | CPS ---
pt refusing to wear a BIPAP while here. says he hasn't worn it in a while at home, does not want to use hospitals machine.
[2021-07-03] MEDS: Ketorolac 15 MG/ML Vial IV (08:21)
[2021-07-03] MEDS: Furosemide 40 MG/4 ML Vial IV (08:21)
[2021-07-03] MEDS: 0.9% Saline Lock 10 ML Syringe IV (08:22)
--- NOTE | 2021-07-03 09:15 | RAD_ITS ---
STUDY: X-RAY CHEST REASON FOR EXAM: Male, 80 years old. Shortness of breath TECHNIQUE: Single AP portable view of the chest. COMPARISON: 06/28/2021. FINDINGS: Patchy bilateral infiltrates worse on the right side new since previous examination. There is no demonstrated pleural abnormality. There is borderline cardiomegaly. Normal mediastinum and luke. Normal visualized pulmonary arteries. Normal visualized aortic arch and descending thoracic aorta. Stable soft tissues and osseous structures. There is no demonstrated abnormality of the visualized soft tissue structures of the upper abdomen. RAD/Chest 1 View (Portable) IMPRESSION: Bilateral infiltrates markedly worse in the right lung could be due to pneumonia or edema new since previous examination. Electronically Signed: Mo Fine, at 9:47 EST ,
[2021-07-03] MEDS: Senna Tablet 2 TABLET PO ×2 (09:32→20:46)
[2021-07-03] MEDS: Psyllium 1 PACKET PO (09:32)
[2021-07-03] MEDS: Aspirin E.C. 81 MG Tablet PO (09:32)
[2021-07-03] MEDS: Enoxaparin 40 MG/0.4 ML Syringe SC (09:32)
[2021-07-03] MEDS: FLUoxetine 20 MG Capsule 40 MG PO (09:32)
[2021-07-03] MEDS: Propranolol 10 MG Tablet 20 MG PO ×2 (09:32→20:48)
[2021-07-03] MEDS: Pantoprazole Sodium 40 MG Tablet PO (09:32)
[2021-07-03] MEDS: Lisinopril 10 MG Tablet PO (09:33)
[2021-07-03] MEDS: Finasteride 5 MG Tablet PO (09:33)
[2021-07-03] MEDS: amLODIPine 5 MG Tablet PO ×2 (09:33→20:48)
[2021-07-03] MEDS: Potassium Chloride Oral Tablet 20 MEQ 40 MEQ PO (09:33)
--- NOTE | 2021-07-03 11:00 | CPS ---
Per pt's , pt has been noncompliant with wearing his BIPAP at home for several months.
--- NOTE | 2021-07-03 12:39 | PN.HOSP_ITS ---
Subjective Subjective Patient states he is having body aches all over and has been placed on 2 L nasal cannula secondary to shortness of breath. He states he feels worse today than he did yesterday and had a poor night overall. Oxygen saturation dropped to 88% on room air. Patient does not wear oxygen at home at baseline. Objective Data Objective Data Vital Signs: Vital Signs Temp Pulse Resp BP Pulse Ox 98.6 F 80 24 H 171/62 H 95 07/03/21 08:14 07/03/21 08:14 07/03/21 08:14 07/03/21 08:14 07/03/21 08:14 Oxygen Flow Rate (L/min) 2 Oxygen Delivery Method Nasal Cannula Weight: 100.2 kg Body Mass Index (BMI) 28.3 Intake & Output: Intake and Output for Last 24 Hours 07/01/21 07/02/21 07/03/21 23:59 23:59 23:59 Intake Total 4650.00 / 4650.00 2350 / 2350 1350 / 1350 Output Total 2725 / 2725 1875 / 2725 3525 / 3525 Balance 1925.00 / 1925.00 475 / -375 -2175 / -2175 Lab / Micro Data Result Diagrams: 07/03/21 04:19 07/03/21 04:19 Labs: Laboratory Results - last 24 hr 07/03/21 04:19: WBC 9.5, RBC 3.06 L, Hgb 9.6 L, Hct 27.8 L, MCV 90.8, MCH 31.4, MCHC 34.5, RDW Std Deviation 41.7, RDW Coeff of Guido 12.5, Plt Count 282, MPV 9.7, Immature Gran % (Auto) 0.400, Neut % (Auto) 77.3 H, Lymph % (Auto) 7.8 L, Bureau % (Auto) 10.8 H, Eos % (Auto) 3.0, Baso % (Auto) 0.7, Absolute Neuts (auto) 7.3, Absolute Lymphs (auto) 0.74 L, Nucleated RBC % 0 07/03/21 04:19: Sodium 134 L, Potassium 3.9, Chloride 105, Carbon Dioxide 22.0, Anion Gap 7, BUN 15, Creatinine 1.19, Estim Creat Clear Calc 56.88, Est GFR (MDRD) Af Amer 76, Est GFR (MDRD) Non-Af 63, BUN/Creatinine Ratio 12.6, Glucose 102, Calcium 8.2 L Micro: Microbiology 07/01/21 09:45 Blood Culture (Wb) - Anticubital Right Blood Culture - Preliminary No growth in 48 hours. 06/29/21 16:50 Blood Culture (Wb) - Anticubital Left Bacteria Detection (PCR) - Final Enterococcus faecalis 06/29/21 16:50 Blood Culture (Wb) - Anticubital Left Blood Culture - Final Enterococcus faecalis 06/29/21 17:13 Blood Culture (Wb) - Anticubital Left Blood Culture - Preliminary No growth in 48 hours. 06/29/21 18:00 Urine Catheter - Clark Urine Culture - Final Enterococcus faecalis Radiography Diagnostic Testing: Radiology Impression Chest X-Ray 07/03/21 09:15 IMPRESSION: Bilateral infiltrates markedly worse in the right lung could be due to pneumonia or edema new since previous examination. Electronically Signed: Mo Fine, at 9:47 EST , Physical Exam Const alert, oriented x3 and well nourished Constitutional Narrative: Overweight, elderly white male lying in left side- lying sleeping but awakens easily to name, appears that he is not feeling well but nontoxic at this time Exam Limitations: no limitations Nutritional Appearance: overweight HEENT head/scalp atraumatic, moist oral mucous membranes and oropharynx normal; Negative for dentition normal HEENT Narrative: Dentition is poor, mucous membranes are moist, Mallampati is 2 Head and Scalp: normocephalic Eyes PERRL, EOMs intact bilaterally and conjunctivae normal Eyes Narrative: No scleral icterus Neck no lymphadenopathy and supple Neck Narrative: Mild JVD noted on exam, thyroid is midline, no thrush Resp no retractions and no use of accessory muscles Resp Narrative: Crackles at bilateral bases with wheezes scattered, mild tachypnea Auscultation: crackles and wheezes Cardio regular rate, regular rhythm, S1 normal heart sound, S2 normal heart sound, no murmurs, no rub, no gallops, no clicks and no JVD GI normal to inspection, nondistended, normoactive bowel sounds, soft to palpation, non-tender and non-distended Extremity Extremity Narrative: Trace bilateral lower extremity edema that is pitting in nature, no cyanosis or clubbing Peripheral Pulses: Yes pulses 2+ throughout Skin no rashes or lesions noted, no wounds, skin turgor normal, no jaundice, no petechiae and no mottling Neuro oriented x3, CN's II-XII intact bilaterally, moves all extremities, no focal motor deficits and no sensory deficits noted Neuro Narrative: Generalized weakness noted Sensorium / Orientation: awake and alert Speech: speech normal Psych Psych Narrative: Affect is mildly flat however patient is appropriately interactive Assessment & Plan Assessment/Plan (1) Enterococcus UTI: (2) Bacteremia: (3) Hypoxia: (4) Hyponatremia: (5) Sepsis: PLAN: Sepsis secondary to Enterococcus faecalis UTI/prostatitis and bacteremia -There is concern for endocarditis -TTE is pending -Patient may require VIOLETTE -Repeat blood cultures are pending -Renal ultrasound is negative except for an incidental renal cyst -Prostate ultrasound shows no evidence of abscess but did show nodules -Patient is currently hemodynamically stable -Antibiotics changed to ampicillin/ceftriaxone on 07/02/2021 by infectious disease -Patient with significant myalgias related to his sepsis we will dose with Toradol x1 dose -Do not want to schedule this or even make available on a as needed basis given his recent ISMAEL -Appreciate ID input Acute hypoxia -Patient requiring 2 L nasal cannula which is not his baseline -Patient is typically on room air -On exam patient seems volume overloaded -Chest x-ray shows fluffy perihilar infiltrates but I suspect this is more volume related -Lasix 40 mg IV push x1 dose -Wean oxygen as able -Encourage incentive spirometry -Encourage mobility Hyponatremia -Suspect hypervolemic -Patient was volume resuscitated initially -Repeat BMP in a.m. -Lasix 40 mg IV push x1 dose -May be related to HCTZ use at baseline -If worsens may need further work-up but will hold off on this at this time ISMAEL -Resolved -Continue to monitor DM-2 -Patient manages with diet and lifestyle changes at home -Continue Accu-Cheks and sliding scale at this time Hypertension -Continue propranolol, lisinopril, HCTZ, and amlodipine REHAN -Continue CPAP with naps and nighttime Hyperlipidemia -Continue statin BPH -Continue Avodart -Continue Flomax Depression -Continue fluoxetine DVT prophylaxis -Continue enoxaparin 40 mg daily CODE STATUS Full code as verified on admission Charges/Coding Visit Charges Inpatient E&M: 80663 Subs Hosp L3
[2021-07-03] MEDS: Tamsulosin HCl 0.4 MG Capsule 0.8 MG PO (20:47)
[2021-07-03] MEDS: hydrOXYzine PAM 25 MG Capsule PO (20:48)
[2021-07-03] MEDS: MELATONIN 3 MG TABLET PO (20:48)
[2021-07-03 23:07] LABS: Vancomycin, Trough Level 11.5 ug/mL (5.0-15.0)
[2021-07-04] VITALS (8 sets, daily range): BP systolic 138–179; BP diastolic 68–81; PULSE 72–84; RESP 16–18; TEMP 35.9–37.1; O2SAT 90–97
--- NOTE | 2021-07-04 05:55 | RAD_ITS ---
STUDY: X-RAY CHEST REASON FOR EXAM: Male, 80 years old. SOB TECHNIQUE: Single AP portable view of the chest. COMPARISON: 07/03/2021 FINDINGS: No change in alveolar opacities in the perihilar aspect of both lungs consistent with bilateral pneumonia. There is no demonstrated pleural abnormality. There is moderate cardiac enlargement. Normal mediastinum and luke. Normal visualized pulmonary arteries. Normal visualized aortic arch and descending thoracic aorta. Normal visualized thoracic spine. Normal visualized ribs, clavicles, and shoulders. There is no demonstrated abnormality of the visualized soft tissue structures of the upper abdomen. RAD/Chest 1 View (Portable) IMPRESSION: No change in bilateral pneumonia. Electronically Signed: Eze Oviedo MD at 8:34 EST ,
[2021-07-04 06:55] LABS: Absolute Lymphocyte Count 0.83 X10^3/uL (0.83-4.51); Absolute Neutrophil Count 7.6 X10^3/uL (2.0-7.7); Basophil# 0.07 X10^3/uL; Basophil% 0.7 % (0-1); Eosinophil# 0.34 X10^3/uL; Eosinophils% 3.4 % (0-5); Hematocrit 27.9 % (40-54); Hemoglobin 9.6 g/dL (13.0-16.5); Lymphocyte # 0.83 X10^3/ul (0.83-4.51); Lymphocyte % 8.4 % (19-41); Mean Corp Hgb Conc 34.4 g/dL (32-36); Mean Corpuscular Hgb 31.2 pg (27.0-32.0); Mean Corpuscular Volume 90.6 fL (80-94); Mean Platelet Vol. 9.6 fl (6.2-12.0); Monocyte# 1.11 X10^3/uL; Monocyte% 11.2 % (0-10); NRBC Flagged by Analyzer 0 % (0-5); Neutrophil # 7.56 X10^3/uL (2.7-7.7); Platelet Count 320 K/mm3 (150-450); RBC Distribution Width CV 12.5 % (11.6-14.6); RBC Distribution Width SD 41.5 fl (35.1-43.9); Red Blood Count 3.08 M/mm3 (4.6-6.2); White Blood Count 9.9 K/mm3 (4.4-11.0)
[2021-07-04 07:27] LABS: Anion Gap 8 (5-15); BUN 13 mg/dL (7-18); BUN/Creat Ratio 11.2 RATIO (10-20); Calcium,Total 8.2 mg/dL (8.5-10.1); Chloride 105 mmol/L (98-107); Creatinine, Serum 1.16 mg/dL (0.70-1.30); EST Glomerular Filtration Rate 64 mL/min (>60); Est Glom Filt Rate - Afr Amer 78 mL/min (>60); Estimated Creatinine Clearance 58.36 ml/min; Glucose 110 mg/dL (74-106); Potassium 3.9 mmol/L (3.5-5.1); Sodium Level 136 mmol/L (136-145)
[2021-07-04] MEDS: Senna Tablet 2 TABLET PO ×2 (09:02→21:28)
[2021-07-04] MEDS: Propranolol 10 MG Tablet 20 MG PO ×2 (09:02→21:27)
[2021-07-04] MEDS: Aspirin E.C. 81 MG Tablet PO (09:02)
[2021-07-04] MEDS: Pantoprazole Sodium 40 MG Tablet PO (09:02)
[2021-07-04] MEDS: amLODIPine 5 MG Tablet PO ×2 (09:02→21:27)
[2021-07-04] MEDS: Lisinopril 10 MG Tablet PO (09:03)
[2021-07-04] MEDS: Finasteride 5 MG Tablet PO (09:03)
[2021-07-04] MEDS: FLUoxetine 20 MG Capsule 40 MG PO (09:03)
[2021-07-04] MEDS: Psyllium 1 PACKET PO ×2 (10:15→21:28)
[2021-07-04] MEDS: Enoxaparin 40 MG/0.4 ML Syringe SC (10:15)
[2021-07-04] MEDS: Furosemide 40 MG/4 ML Vial IV ×2 (10:20→18:03)
[2021-07-04] MEDS: 0.9% Saline Lock 10 ML Syringe IV ×2 (10:20→12:55)
--- NOTE | 2021-07-04 12:32 | PN.HOSP_ITS ---
Subjective Subjective Patient states he is feeling much better today than he did in the last 24 hours. He states the Toradol given yesterday really helped his myalgias. He had no further fevers in the last 24 hours. He states his breathing is better overall however he remains on 2 L nasal cannula. Objective Data Objective Data Vital Signs: Vital Signs Temp Pulse Resp BP Pulse Ox 98.5 F 77 18 171/81 H 94 07/04/21 08:58 07/04/21 08:58 07/04/21 08:58 07/04/21 08:58 07/04/21 08:58 Oxygen Flow Rate (L/min) 2 Oxygen Delivery Method Room Air Weight: 100.8 kg Body Mass Index (BMI) 28.3 Intake & Output: Intake and Output for Last 24 Hours 07/02/21 07/03/21 07/04/21 23:59 23:59 23:59 Intake Total 2350 / 2350 2200 / 2200 1439.75 / 1439.75 Output Total 1875 / 2725 3975 / 4375 2650 / 2650 Balance 475 / -375 -1775 / -2175 -1210.25 / -1210.25 Lab / Micro Data Result Diagrams: 07/04/21 06:21 07/04/21 06:21 Labs: Laboratory Results - last 24 hr 07/03/21 22:35: Vancomycin Trough 11.5 07/04/21 06:21: WBC 9.9, RBC 3.08 L, Hgb 9.6 L, Hct 27.9 L, MCV 90.6, MCH 31.2, MCHC 34.4, RDW Std Deviation 41.5, RDW Coeff of Guido 12.5, Plt Count 320, MPV 9.6, Immature Gran % (Auto) 0.300, Neut % (Auto) 76.0 H, Lymph % (Auto) 8.4 L, [place] % (Auto) 11.2 H, Eos % (Auto) 3.4, Baso % (Auto) 0.7, Absolute Neuts (auto) 7.6, Absolute Lymphs (auto) 0.83, Nucleated RBC % 0 07/04/21 06:21: Sodium 136, Potassium 3.9, Chloride 105, Carbon Dioxide 23.0, Anion Gap 8, BUN 13, Creatinine 1.16, Estim Creat Clear Calc 58.36, Est GFR (MDRD) Af Amer 78, Est GFR (MDRD) Non-Af 64, BUN/Creatinine Ratio 11.2, Glucose 110 H, Calcium 8.2 L Micro: Microbiology 07/02/21 13:25 Blood Culture (Wb) - Anticubital Right Blood Culture - Preliminary No growth in 48 hours. 07/01/21 09:45 Blood Culture (Wb) - Anticubital Right Blood Culture - Preliminary No growth in 48 hours. 06/29/21 16:50 Blood Culture (Wb) - Anticubital Left Bacteria Detection (PCR) - Final Enterococcus faecalis 06/29/21 16:50 Blood Culture (Wb) - Anticubital Left Blood Culture - Final Enterococcus faecalis 06/29/21 17:13 Blood Culture (Wb) - Anticubital Left Blood Culture - Preliminary No growth in 48 hours. 06/29/21 18:00 Urine Catheter - Clark Urine Culture - Final Enterococcus faecalis Radiography Diagnostic Testing: Radiology Impression Echocardiogram 07/02/21 15:34 Interpretation Summary The estimated ejection fraction is 55-60 %. RVSP calculated 40 mmhg No significant changes from prior echo Ordering Physician: Carlos Enrique Crane Referring Physician: GEORGE SONG Performed By: Katelin Degroot, JJ, RVT Chest X-Ray 07/04/21 05:55 IMPRESSION: No change in bilateral pneumonia. Electronically Signed: Eze Oviedo MD at 8:34 EST , Physical Exam Const alert, oriented x3, no apparent distress and well nourished Constitutional Narrative: Overweight, elderly white male sitting up in bed, appears comfortable, nontoxic, watching television General Appearance: cooperative Exam Limitations: no limitations Nutritional Appearance: overweight HEENT normocephalic, head/scalp atraumatic, moist oral mucous membranes and oropharynx normal; Negative for dentition normal HEENT Narrative: No thrush, Mallampati is 2 Head and Scalp: normocephalic Eyes PERRL, EOMs intact bilaterally, conjunctivae normal and no scleral icterus Eyes Narrative: No scleral icterus Neck no lymphadenopathy, supple and no JVD Neck Narrative: Trachea midline, no thyroid enlargement General: trachea midline Lymph Lymphatic: no lymphadenopathy noted Resp normal respiratory effort, normal air movement, no retractions, no use of accessory muscles and clear to auscultation bilaterally Resp Narrative: Slightly diminished at bases bilaterally but improved aeration with resolution of crackles and wheeze Effort and Inspection: tachypneic Auscultation: Negative for crackles, rales, rhonchi or wheezes Cardio regular rate, regular rhythm, S1 normal heart sound, S2 normal heart sound, no murmurs, no rub, no gallops, no clicks, no JVD and peripheral pulses 2+ throughout GI normal to inspection, nondistended, normoactive bowel sounds, soft to palpation, non-tender and non-distended Extremity normal to inspection, full ROM and normal capillary refill Extremity Narrative: Trace bilateral lower extremity edema that is pitting in nature, no cyanosis or clubbing Peripheral Pulses: Yes pulses 2+ throughout Skin no rashes or lesions noted, no wounds, skin turgor normal, no jaundice, no petechiae and no mottling General Skin Exam: no breakdown and turgor normal Lesions: no lesions Rashes: no rashes Neuro oriented x3, CN's II-XII intact bilaterally, moves all extremities, no focal motor deficits and no sensory deficits noted Neuro Narrative: mild Generalized weakness noted Sensorium / Orientation: awake and alert Speech: speech normal Psych thought process normal and affect normal Appearance: appropriate Assessment & Plan Assessment/Plan (1) Enterococcus UTI: (2) Bacteremia: (3) Hypoxia: (4) Hyponatremia: (5) Sepsis: PLAN: Sepsis secondary to Enterococcus faecalis UTI/prostatitis and bacteremia -There is concern for endocarditis -TTE was negative for any vegetations -Patient may require VIOLETTE -Repeat blood cultures are negative at this time -If blood cultures are negative tomorrow will discuss with ID as I suspect he will need IV antibiotics and put in for a PICC -Renal ultrasound is negative except for an incidental renal cyst -Prostate ultrasound shows no evidence of abscess but did show nodules -Patient will need to go home with a Clark and follow-up with urology as an outpatient -Patient is currently hemodynamically stable -Antibiotics changed to ampicillin/ceftriaxone on 07/02/2021 by infectious disease -Will discuss recommendations for discharge tomorrow -Patient overall is clinically much improved today -Appreciate ID input Acute hypoxia -Resolving -Patient is typically on room air -Chest x-ray is improved today but still with patchy bilateral infiltrates -Lasix 40 mg IV push x2 doses and reevaluate tomorrow -Patient is positive about 2 L now for his hospitalization but put out about 4 L yesterday with the Lasix that was dosed -Wean oxygen as able -Encourage incentive spirometry -Encourage mobility Hyponatremia -Resolved ISMAEL -Resolved -Continue to monitor specially with Lasix dosing today DM-2 -Patient manages with diet and lifestyle changes at home -Continue Accu-Cheks and sliding scale at this time Hypertension -Continue propranolol, lisinopril, amlodipine -HCTZ is currently on hold but will restart tomorrow after Lasix is completed depending on renal function REHAN -Continue CPAP with naps and nighttime Hyperlipidemia -Continue statin BPH -Continue Avodart -Continue Flomax -Patient will be discharged with a Clark and have urology follow-up as an outpatient Depression -Continue fluoxetine DVT prophylaxis -Continue enoxaparin 40 mg daily CODE STATUS Full code as verified on admission Charges/Coding Visit Charges Inpatient E&M: 56906 Subs Hosp L3
[2021-07-04] MEDS: Tamsulosin HCl 0.4 MG Capsule 0.8 MG PO (21:27)
[2021-07-04] MEDS: hydrOXYzine PAM 25 MG Capsule PO (21:27)
[2021-07-04] MEDS: MELATONIN 3 MG TABLET PO (21:28)
[2021-07-05 03:00] VITALS: BP 157/70; PULSE 72; RESP 16; TEMP 37.8; O2SAT 95
[2021-07-05] MEDS: Acetaminophen 325 MG Tablet 650 MG PO ×2 (04:41→20:53)
[2021-07-05 07:14] LABS: Anion Gap 6 (5-15); BUN 14 mg/dL (7-18); BUN/Creat Ratio 10.4 RATIO (10-20); Calcium,Total 8.2 mg/dL (8.5-10.1); Chloride 102 mmol/L (98-107); Creatinine, Serum 1.34 mg/dL (0.70-1.30); EST Glomerular Filtration Rate 55 mL/min (>60); Est Glom Filt Rate - Afr Amer 66 mL/min (>60); Estimated Creatinine Clearance 50.52 ml/min; Glucose 121 mg/dL (74-106); Potassium 3.7 mmol/L (3.5-5.1); Sodium Level 135 mmol/L (136-145)
[2021-07-05 08:10] VITALS: O2SAT 93
[2021-07-05 08:23] VITALS: BP 157/77; PULSE 73; RESP 14; TEMP 37.1; O2SAT 95
[2021-07-05] MEDS: Pantoprazole Sodium 40 MG Tablet PO (08:31)
[2021-07-05] MEDS: Lisinopril 10 MG Tablet PO (08:31)
[2021-07-05] MEDS: Senna Tablet 2 TABLET PO ×2 (08:31→20:54)
[2021-07-05] MEDS: FLUoxetine 20 MG Capsule 40 MG PO (08:31)
[2021-07-05] MEDS: Propranolol 10 MG Tablet 20 MG PO ×2 (08:32→20:55)
[2021-07-05] MEDS: Finasteride 5 MG Tablet PO (08:32)
[2021-07-05] MEDS: Aspirin E.C. 81 MG Tablet PO (08:32)
[2021-07-05] MEDS: amLODIPine 5 MG Tablet PO ×2 (08:32→20:55)
[2021-07-05 09:56] VITALS: O2SAT 95
[2021-07-05] MEDS: Furosemide 40 MG/4 ML Vial IV (09:56)
[2021-07-05] MEDS: Enoxaparin 40 MG/0.4 ML Syringe SC (09:56)
[2021-07-05] MEDS: Psyllium 1 PACKET PO (09:57)
--- NOTE | 2021-07-05 10:27 | CASEMGMT ---
Addendum entered by Rupal Tyler 07/05/21 12:11: Spoke with ID who states pt will have VIOLETTE tomorrow. If negative, pt will not need IV atb. If positive, pt to receive IV atb. Made aware of pt dtr request of not having HHC. This decision will be made after VIOLETTE. TC from dtr who states she was unable to get in touch with the HHC she was going to ask questions to. She is aware of plan at this time. Original Note: Received message from pt dtr Sabi Nj. 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 She wants the lab tubes to be sent home with pt. Made her aware that the labs and picc dressing change will be provided by the [facility]. She states she does not want a HHC. Made her aware that if the infusion company and physician are agreeable to pt not having a HHC, then the RN CM will not arrange. 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 She states she will call a HHC agency and call this RN CM back.
--- NOTE | 2021-07-05 12:18 | PCM.PN.ID ---
Physical Exam Narrative Feeling better, no fever, no abd pain, no dysuria. Clark in place. Const alert and no apparent distress General Appearance: cooperative Resp normal air movement and clear to auscultation bilaterally Cardio regular rate and regular rhythm GI soft to palpation, non-tender and non-distended Skin no rashes or lesions noted ID ID: Route of nutrition/ use of supplements: [] Nutritional Intake: [] IV Site: [] Clark Catheter: [] Assessment & Plan Assessment/Plan (1) Bacteremia: PLAN: severe sepsis due to Enterococcus bacteremia from UTI, suspected prostatitis. Given splinter hemorrhages, concern for endocarditis. Cont amp/ceftriaxone, repeat bcx have cleared, check VIOLETTE. Temp and wbc improved, ISMAEL better. If VIOLETTE neg, I think would be candidate for po linezolid at discharge. Will follow, d/w Dr. Crespo. Fully covid vaccinated.
--- NOTE | 2021-07-05 14:18 | PCM.PN.HOSP ---
Subjective Subjective Patient indicates he is feeling much better. His respiratory issues have resolved. T-max in the last 24 hours was 100.0. He is aware that he will need to go home with a Clark. He is now on room air. Objective Data Objective Data Vital Signs: Vital Signs Temp Pulse Resp BP Pulse Ox 98.8 F 73 14 157/77 H 95 07/05/21 08:23 07/05/21 08:23 07/05/21 08:23 07/05/21 08:23 07/05/21 09:56 Oxygen Flow Rate (L/min) 2 Oxygen Delivery Method Room Air Weight: 96 kg Body Mass Index (BMI) 28.3 Intake & Output: Intake and Output for Last 24 Hours 07/03/21 07/04/21 07/05/21 23:59 23:59 23:59 Intake Total 2200 / 2200 2800.00 / 2800.00 250 / 250 Output Total 3975 / 4375 4450 / 5150 1400 / 1400 Balance -1775 / -2175 -1650.00 / -2350.00 -1150 / -1150 Lab / Micro Data Result Diagrams: 07/04/21 06:21 07/05/21 06:15 Labs: Laboratory Results - last 24 hr 07/05/21 06:15: Sodium 135 L, Potassium 3.7, Chloride 102, Carbon Dioxide 27.0, Anion Gap 6, BUN 14, Creatinine 1.34 H, Estim Creat Clear Calc 50.52, Est GFR (MDRD) Af Amer 66, Est GFR (MDRD) Non-Af 55 L, BUN/Creatinine Ratio 10.4, Glucose 121 H, Calcium 8.2 L Micro: Microbiology 07/05/21 11:45 Nasal Secretion SARS-CoV-2 Antigen (Rapid) - Final 06/29/21 17:13 Blood Culture (Wb) - Anticubital Left Blood Culture - Final No growth in 5 days. 07/02/21 13:25 Blood Culture (Wb) - Anticubital Right Blood Culture - Preliminary No growth in 48 hours. 07/01/21 09:45 Blood Culture (Wb) - Anticubital Right Blood Culture - Preliminary No growth in 48 hours. 06/29/21 16:50 Blood Culture (Wb) - Anticubital Left Bacteria Detection (PCR) - Final Enterococcus faecalis 06/29/21 16:50 Blood Culture (Wb) - Anticubital Left Blood Culture - Final Enterococcus faecalis 06/29/21 18:00 Urine Catheter - Clark Urine Culture - Final Enterococcus faecalis Physical Exam Const alert, oriented x3, no apparent distress and well nourished Constitutional Narrative: Overweight, elderly white male sitting up in bed, appears comfortable, nontoxic, watching television and eating breakfast General Appearance: cooperative Exam Limitations: no limitations Nutritional Appearance: overweight HEENT normocephalic, head/scalp atraumatic, moist oral mucous membranes and oropharynx normal; Negative for dentition normal HEENT Narrative: No thrush, Mallampati is 2 Head and Scalp: normocephalic Eyes no scleral icterus Neck General: trachea midline Lymph Lymphatic: no lymphadenopathy noted Resp normal respiratory effort, normal air movement, no retractions, no use of accessory muscles and clear to auscultation bilaterally Resp Narrative: Crackles have resolved Effort and Inspection: tachypneic Auscultation: Negative for crackles, rales, rhonchi or wheezes Cardio regular rate, regular rhythm, S1 normal heart sound, S2 normal heart sound, no murmurs, no rub, no gallops, no clicks, no JVD and peripheral pulses 2+ throughout GI normal to inspection, nondistended, normoactive bowel sounds, soft to palpation, non-tender and non-distended Extremity normal to inspection, normal capillary refill and no clubbing, cyanosis or edema Extremity Narrative: Splinter hemorrhages noted on fingers Peripheral Pulses: Yes pulses 2+ throughout Skin General Skin Exam: no breakdown and turgor normal Lesions: no lesions Rashes: no rashes Neuro oriented x3, moves all extremities and no focal motor deficits Neuro Narrative: mild Generalized weakness noted Sensorium / Orientation: awake and alert Speech: speech normal Psych thought process normal Appearance: appropriate Assessment & Plan Assessment/Plan (1) Enterococcus UTI: (2) Bacteremia: (3) Hypoxia: (4) Hyponatremia: (5) Sepsis: PLAN: Sepsis secondary to Enterococcus faecalis UTI/prostatitis and bacteremia -There is concern for endocarditis -TTE was negative for any vegetations -Patient may require VIOLETTE -Repeat blood cultures are negative at this time -If blood cultures are negative tomorrow will discuss with ID as I suspect he will need IV antibiotics and put in for a PICC -Renal ultrasound is negative except for an incidental renal cyst -Prostate ultrasound shows no evidence of abscess but did show nodules -Patient will need to go home with a Clark and follow-up with urology as an outpatient -Patient is currently hemodynamically stable -Antibiotics changed to ampicillin/ceftriaxone on 07/02/2021 by infectious disease -Will discuss recommendations for discharge tomorrow -Patient overall is clinically much improved today -Appreciate ID input Acute hypoxia secondary to volume overload -Resolved with diuresis -Patient is now on room air with oxygen saturation in the mid upper 90s -Continue incentive spirometry Hyponatremia -Very mild -Repeat BMP in a.m. ISMAEL -Slight bump in serum creatinine to 1.34 today with diuresis -No further Lasix today -Repeat BMP in a.m. DM-2 -Patient manages with diet and lifestyle changes at home -Continue Accu-Cheks and sliding scale at this time Hypertension -Continue propranolol, lisinopril, amlodipine -We will restart HCTZ tomorrow REHAN -Continue CPAP with naps and nighttime Hyperlipidemia -Continue statin BPH -Continue Avodart -Continue Flomax -Patient will be discharged with a Clark and have urology follow-up as an outpatient Depression -Continue fluoxetine DVT prophylaxis -Continue enoxaparin 40 mg daily CODE STATUS Full code as verified on admission Charges/Coding Visit Charges Inpatient E&M: 59694 Subs Hosp L2
[2021-07-05 15:00] VITALS: BP 128/67; PULSE 72; RESP 16; TEMP 36.7; O2SAT 97
[2021-07-05] MEDS: 0.9% Saline Lock 10 ML Syringe IV (17:30)
[2021-07-05 20:48] VITALS: BP 159/77; PULSE 81; RESP 18; TEMP 37.2; O2SAT 93
[2021-07-05] MEDS: Tamsulosin HCl 0.4 MG Capsule 0.8 MG PO (20:54)
[2021-07-05] MEDS: MELATONIN 3 MG TABLET PO (20:55)
[2021-07-05] MEDS: hydrOXYzine PAM 25 MG Capsule PO (20:55)
[2021-07-05] MEDS: hydroCHLOROthiazide 12.5mg 12.5 MG PO (20:59)
[2021-07-06 03:02] VITALS: BP 146/70; PULSE 76; RESP 18; TEMP 36.6; O2SAT 93
[2021-07-06 06:01] LABS: Absolute Lymphocyte Count 1.25 X10^3/uL (0.83-4.51); Absolute Neutrophil Count 9.2 X10^3/uL (2.0-7.7); Basophil# 0.08 X10^3/uL; Basophil% 0.6 % (0-1); Eosinophil# 0.44 X10^3/uL; Eosinophils% 3.5 % (0-5); Hematocrit 32.7 % (40-54); Hemoglobin 11.4 g/dL (13.0-16.5); Lymphocyte # 1.25 X10^3/ul (0.83-4.51); Lymphocyte % 10.1 % (19-41); Mean Corp Hgb Conc 34.9 g/dL (32-36); Mean Corpuscular Hgb 31.9 pg (27.0-32.0); Mean Corpuscular Volume 91.6 fL (80-94); Mean Platelet Vol. 9.2 fl (6.2-12.0); Monocyte# 1.34 X10^3/uL; Monocyte% 10.8 % (0-10); NRBC Flagged by Analyzer 0 % (0-5); Neutrophil # 9.17 X10^3/uL (2.7-7.7); Platelet Count 439 K/mm3 (150-450); RBC Distribution Width CV 12.2 % (11.6-14.6); RBC Distribution Width SD 41.3 fl (35.1-43.9); Red Blood Count 3.57 M/mm3 (4.6-6.2); White Blood Count 12.4 K/mm3 (4.4-11.0)
[2021-07-06 06:41] LABS: Anion Gap 9 (5-15); BUN 14 mg/dL (7-18); BUN/Creat Ratio 11.4 RATIO (10-20); Calcium,Total 8.5 mg/dL (8.5-10.1); Chloride 100 mmol/L (98-107); Creatinine, Serum 1.23 mg/dL (0.70-1.30); EST Glomerular Filtration Rate 60 mL/min (>60); Est Glom Filt Rate - Afr Amer 73 mL/min (>60); Estimated Creatinine Clearance 55.04 ml/min; Glucose 110 mg/dL (74-106); Potassium 3.7 mmol/L (3.5-5.1); Sodium Level 136 mmol/L (136-145)
[2021-07-06 07:16] VITALS: BP 159/78; PULSE 76; RESP 14; TEMP 37.4; O2SAT 94
--- NOTE | 2021-07-06 08:00 | ECHOTEE_ITS ---
Reason For Study: R/O Endocarditis Medication VIOLETTE probe 6VT-D (SN [id number]) passed without difficulty. No complications were noted. Cetacaine Topical [place] given X3 orally. Versed 2 mg given slow IVP. Fentanyl 100 mcg given slow IVP. Performed a rapid injection of agitated mix of 9 cc saline and 1cc air to assess for atrial septal defect. Left Ventricle Normal LV size. Left ventricular systolic function is normal. The estimated ejection fraction is 70 %. No regional wall motion abnormalities noted. Right Ventricle Normal RV size. Normal systolic function. Atria No doppler evidence for ASD. Bubble contrast study negative for right to left interatrial shunt. The left atrium is mildly enlarged. There is no sponatenous contrast in the left atrium. No thrombus is detected in the left atrial appendage. The right atrium is mildly enlarged. There is no sponatenous contrast in the right atrium. No RA / appendage thrombus identified. Mitral Valve There is no mitral annular calcification. Anterior leaflet diffuse mitral valve thickening. 2D echocardiographic findings demonstrate a small mobile echodensity in the submitral valve apparatus c/w redudant chordae tendonae. The mitral valve chordae are thickened and/or calcified. Mild (1+) mitral valve insufficiency. Tricuspid Valve Normal tricuspid valve. Mild to moderate (1-2+) tricuspid valve insufficiency. Aortic Valve Trisinus/trileaflet aortic valve. Mild diffuse aortic valve thickening. Mild focal aortic valve calcification. Pulmonic Valve The pulmonic valve is not well visualized. Vessels Mild atherosclerosis of the descending aorta. Pericardium No pericardial effusion. ECHO/Echo Transesophageal (VIOLETTE) Interpretation Summary Left ventricular systolic function is normal. The estimated ejection fraction is 70 %. The left atrium is mildly enlarged. There is no sponatenous contrast in the left atrium. No thrombus is detected in the left atrial appendage. The right atrium is mildly enlarged. Anterior leaflet diffuse mitral valve thickening. 2D echocardiographic findings demonstrate a small mobile echodensity in the sub mitral valve apparatus c/w redudant chordae tendonae. The mitral valve chordae are thickened and/or calcified. Mild (1+) mitral valve insufficiency. Mild to moderate (1-2+) tricuspid valve insufficiency. Mild diffuse aortic valve thickening. Mild focal aortic valve calcification. Bubble contrast study negative for right to left interatrial shunt. Mild atherosclerosis of the descending aorta. Comment: No obvious 2D echocardiographic findings considered diagnostic for 2D echocardiographic findings compatible with infectious endocarditis. Ordering Physician: Ana Crespo Referring Physician: MD Alexus Harvinder Performed By: Rosamaria Marin RDCS
[2021-07-06 09:40] VITALS: BP 142/69; PULSE 72; RESP 16; TEMP 37.2; O2SAT 94
[2021-07-06] MEDS: 0.9% Saline Lock 10 ML Syringe IV ×2 (09:57→13:16)
--- NOTE | 2021-07-06 10:01 | PCM.PN.ID ---
Physical Exam Narrative Feeling ok s/p VIOLETTE. No fever. Const alert and no apparent distress General Appearance: cooperative Resp normal air movement and clear to auscultation bilaterally Cardio regular rate and regular rhythm GI soft to palpation, non-tender and non-distended Skin no rashes or lesions noted ID ID: Route of nutrition/ use of supplements: [] Nutritional Intake: [] IV Site: [] Clark Catheter: [] Assessment & Plan Assessment/Plan (1) Bacteremia: PLAN: severe sepsis due to Enterococcus bacteremia from UTI, suspected prostatitis. Given splinter hemorrhages, concern for endocarditis. Cont amp/ceftriaxone, repeat bcx have cleared, checking VIOLETTE. Temp and wbc improved, ISMAEL better. If VIOLETTE neg, ok for 2 weeks po linezolid 600mg bid at discharge. Is on SSRI, but single agent should be low risk of serotonin syndrome. Will follow, d/w Dr. Crespo. Fully covid vaccinated.
[2021-07-06 10:05] VITALS: BP 137/70; PULSE 72; RESP 16; TEMP 37.4; O2SAT 95
--- NOTE | 2021-07-06 10:56 | PCM.DC.SUM ---
Providers Date of Admission: 06/29/21 Date of Discharge: 07/06/21 Primary Care Physician: Dr. Harvinder Vaughan MD Consultations 07/01/21 16:00 Consult: Infectious Disease Routine Consulting Provider: Carlos Enrique Crane Reason for Consult: Enterococcus fecalis UTI with bacteremia with continued fever EMERGENT Consult: No MD Notified: Yes Date Notified: 07/01/21 Time Notified: 10:00 Method of Notification: Verbal Reason For Visit: UTI, RENAL INSUFFICIENCY, URINARY RETENTION Diagnosis Discharge Diagnosis (1) Bacteremia: Status: Acute Code(s): R78.81 - Bacteremia Medications at Discharge Home Medications multivitamin 1 ea PO DAILY 12/08/15 fluoxetine 40 mg capsule 40 mg PO DAILY 07/04/18 aspirin 81 mg tablet,delayed release 81 mg PO DAILY #1 tab 09/18/19 tamsulosin 0.4 mg capsule 0.8 mg PO QHS cap 09/18/19 oxycodone 5 mg PO Q6H PRN PRN 01/26/20 nitroglycerin 0.4 mg sublingual tablet 0.4 mg SUBLINGUAL Q5-15M PRN #25 tab 03/17/20 acetaminophen 500 mg tablet 500 mg PO Q6H PRN 06/17/20 propranolol 20 mg tablet 20 mg PO BID #180 tab 02/23/21 lisinopril 10 mg tablet 10 mg PO BID #180 tab 03/01/21 amlodipine 5 mg tablet 5 mg PO BID tab 03/17/21 hydrochlorothiazide 25 mg tablet 12.5 mg PO BID #90 tab 05/18/21 diclofenac sodium 1 ea TOPICAL BID 06/29/21 dutasteride 0.5 mg PO DAILY 06/29/21 rosuvastatin 10 mg PO QHS 06/29/21 linezolid 600 mg PO Q12H 14 Days #28 tab 07/06/21 Hospital Course Operations None Procedures 2-D Echocardiogram and Transesophageal Echo Summary of Care Provided Minutes Spent on Discharge: 45 Hospital Course: Mr. Wills is a 80-year-old white male who presented to the emergency department [facility] on 06/29/2021 with a chief complaints of fatigue, lethargy, fevers, and urinary retention. The patient states his symptoms started on 06/28/2021 and he was initiated on Keflex at that time. Patient also had a Clark placed at that time and urine culture was pending. He came into the emergency department because despite 2 doses of Keflex at home his symptoms were worsening In the emergency department he had a temperature of 103 but his vital signs are otherwise stable. His CBC was 22.9 on admission and he had a left shift. He had acute kidney injury with a serum creatinine of 1.48. His lactic acid was 1.5 and his urinalysis was concerning for urinary tract infection. In the emergency department blood and urine cultures were sent and he was started on IV fluids as well as Rocephin. He was admitted to the medical floor where these therapies were continued. Patient does follow with Dr. Ibarra as an outpatient for urinary retention and is scheduled for TURP at the end of this month on 07/16/2021. Gram stain on his urine culture showed gram-positive cocci that was concerning for Enterococcus and therefore vancomycin was initiated and Rocephin was continued at that point. His urine culture did indeed grow out Enterococcus and unfortunately his blood cultures were positive for Enterococcus faecalis as well. This was a pain sensitive organism and he was initially treated with ampicillin along with ceftriaxone for synergy as the patient did have splinter hemorrhages and there was a concern for infective endocarditis. A TTE was performed and was negative for any signs of valvular vegetations however with a splinter hemorrhages a VIOLETTE was requested and was negative for any valvular vegetations as well. Repeat blood cultures were drawn on 07/02/2021 and were negative for growth. Given the repeat negative blood cultures and negative VIOLETTE his antibiotics were changed to oral Zyvox at discharge at 600 mg twice daily for 2 weeks. His SSRI was held as there is is an increased risk for serotonin syndrome with utilization of Zyvox and SSRI. He was instructed to restart his Prozac once he had completed his Zyvox. He was able to be discharged home in stable condition on 07/06/2021. I discussed the case with ID and there is no need for follow-up with him as an outpatient unless there are concerns, he is to follow-up with his primary care physician in [address] Ibarra as instructed by him. Discharge diagnoses: Sepsis-resolved Acute hypoxic respiratory failure secondary to volume overload-resolved Hyponatremia-resolved ISMAEL-resolved DM-2 Hypertension REHAN Hyperlipidemia BPH Depression Physical Exam Const alert, oriented x3, no apparent distress and well nourished Constitutional Narrative: Overweight, elderly white male sitting up in bed, appears comfortable, nontoxic, watching television, at bedside General Appearance: cooperative, comfortable, well kempt and well developed Orientation / Consciousness: awake Exam Limitations: no limitations Nutritional Appearance: overweight HEENT normocephalic, head/scalp atraumatic, hearing grossly normal bilaterally, moist oral mucous membranes and oropharynx normal; Negative for dentition normal HEENT Narrative: Mallampati 3, no thrush Eyes PERRL, EOMs intact bilaterally, conjunctivae normal and no scleral icterus Eyes Narrative: No scleral icterus Neck no lymphadenopathy, supple and no JVD Neck Narrative: Trachea midline, no thyroid enlargement General: trachea midline Lymph Lymphatic: no lymphadenopathy noted Resp normal respiratory effort, normal air movement, no retractions, no use of accessory muscles and clear to auscultation bilaterally Effort and Inspection: tachypneic Auscultation: Negative for crackles, rales, rhonchi or wheezes Cardio regular rate, regular rhythm, S1 normal heart sound, S2 normal heart sound, no murmurs, no rub, no gallops, no clicks, no JVD and peripheral pulses 2+ throughout GI normal to inspection, nondistended, normoactive bowel sounds, soft to palpation, non-tender and non-distended Extremity normal to inspection, normal capillary refill and no clubbing, cyanosis or edema Extremity Narrative: Splinter hemorrhages noted on fingers Skin no rashes or lesions noted, no wounds, skin turgor normal, no jaundice, no petechiae and no mottling General Skin Exam: no breakdown and turgor normal Lesions: no lesions Rashes: no rashes Neuro oriented x3, moves all extremities and no focal motor deficits Neuro Narrative: mild Generalized weakness noted Sensorium / Orientation: awake and alert Speech: speech normal Psych thought process normal and affect normal Appearance: appropriate Weight / BMI Weight Weight: 95.2 kg Body Mass Index (BMI) 28.3 ABG / Lab / Microbiology Data Result Diagrams: 07/06/21 04:54 07/06/21 04:54 Laboratory: Laboratory Results - last 24 hr 07/06/21 04:54: WBC 12.4 H, RBC 3.57 L, Hgb 11.4 L, Hct 32.7 L, MCV 91.6, MCH 31.9, MCHC 34.9, RDW Std Deviation 41.3, RDW Coeff of Guido 12.2, Plt Count 439, MPV 9.2, Immature Gran % (Auto) 1.000 H, Neut % (Auto) 74.0 H, Lymph % (Auto) 10.1 L, Wright % (Auto) 10.8 H, Eos % (Auto) 3.5, Baso % (Auto) 0.6, Absolute Neuts (auto) 9.2 H, Absolute Lymphs (auto) 1.25, Nucleated RBC % 0 07/06/21 04:54: Sodium 136, Potassium 3.7, Chloride 100, Carbon Dioxide 27.0, Anion Gap 9, BUN 14, Creatinine 1.23, Estim Creat Clear Calc 55.04, Est GFR (MDRD) Af Amer 73, Est GFR (MDRD) Non-Af 60, BUN/Creatinine Ratio 11.4, Glucose 110 H, Calcium 8.5 Microbiology: Microbiology 07/01/21 09:45 Blood Culture (Wb) - Anticubital Right Blood Culture - Final No growth in 5 days. 07/05/21 11:45 Nasal Secretion SARS-CoV-2 Antigen (Rapid) - Final 06/29/21 17:13 Blood Culture (Wb) - Anticubital Left Blood Culture - Final No growth in 5 days. 07/02/21 13:25 Blood Culture (Wb) - Anticubital Right Blood Culture - Preliminary No growth in 48 hours. 06/29/21 16:50 Blood Culture (Wb) - Anticubital Left Bacteria Detection (PCR) - Final Enterococcus faecalis 06/29/21 16:50 Blood Culture (Wb) - Anticubital Left Blood Culture - Final Enterococcus faecalis 06/29/21 18:00 Urine Catheter - Clark Urine Culture - Final Enterococcus faecalis D/C Instructions Discharge Diet: Low fat / Low cholesterol and 1800 Calorie Control Diet Discharge Activity: Return to Normal Activity Meaningful Use Info Meaningful Use Diagnoses (Choose all that apply): None applicable Discharge Plan Admission Admit Date/Time: 06/29/21 19:32 Primary Reason for Your Visit: Sepsis Attending Provider: Ana Crespo Primary Care Provider: Harvinder Vaughan Consulting Providers: Carlos Enrique Crane Instructions Additional Instructions / Restrictions: 1. Will need to leave Clark in until instructed otherwise by Dr. Ibarra 2. Please complete Antibiotics as ordered 3. Probiotics as desired is fine 4. Hold Prozac until Zyvox (Linezolid) is completed then restart Discharge Orders/Prescriptions Prescriptions: New linezolid 600 mg tablet 600 mg PO Q12H 14 Days Qty: 28 RF: 0 Continued aspirin 81 mg tablet,delayed release (DR/EC) 81 mg PO DAILY Qty: 1 RF: 0 acetaminophen [Tylenol Extra Strength] 500 mg tablet 500 mg PO Q6H PRN (Reason: Pain) RF: 0 multivitamin 1 EACH tablet 1 ea PO DAILY RF: 0 tamsulosin 0.4 mg capsule 0.8 mg PO QHS RF: 0 oxycodone 5 MG tablet 5 mg PO Q6H PRN PRN (Reason: Pain Score 1-10/10) RF: 0 dutasteride 0.5 mg capsule 0.5 mg PO DAILY RF: 0 diclofenac sodium 1 % gel 1 ea topical BID RF: 0 rosuvastatin 10 mg tablet 10 mg PO QHS RF: 0 nitroglycerin 0.4 mg tablet, sublingual 0.4 mg SUBLINGUAL Q5-15M PRN (Reason: chest pain) Qty: 25 RF: 1 propranolol 20 mg tablet 20 mg PO BID Qty: 180 RF: 3 lisinopril 10 mg tablet 10 mg PO BID Qty: 180 RF: 3 amlodipine 5 mg tablet 5 mg PO BID RF: 0 hydrochlorothiazide 25 mg tablet 12.5 mg PO BID Qty: 90 RF: 4 Held fluoxetine [Prozac] 40 mg capsule 40 mg PO DAILY RF: 0 Hold Instructions: until done with Zyvox Discontinued cephalexin 500 mg capsule 500 mg PO Q6H 10 Days Qty: 40 RF: 0 Referrals / Follow Up: Jalen Ibarra MD [STAFF PHYSICIAN] - (as scheduled) Harvinder Vaughan MD [Primary Care Provider] - Within 2 Weeks Disposition Disposition (needs filled in before D/C Order can be placed): Home Health Service Charges/Coding Visit Charges Inpatient E&M: 08526 Disch Hosp
--- NOTE | 2021-07-06 11:32 | CASEMGMT ---
Addendum entered by Rupal Tyler 07/06/21 14:36: [facility] will see pt on . Pt aware per nurse Beata. Addendum entered by Rupal Tylre 07/06/21 14:28: Pt has decided on home PT. TC to Hilda at [facility] to make aware of change in disciplines. Addendum entered by Rupal Tyler 07/06/21 11:34: TC to [facility] pharmacy, spoke with Carlos, Linezolid cost is $60.31. Pt and state this is affordable to them. Original Note: RN CM in to pt room, at bedside. Discussed that pt will not need IV atb at ar per ID. Pt does not want HHC SN any longer due to this but is considering HH therapy. Pt wants therapy at home but reminded him that pt dtr does not want pt to have HHC. Discussed options of outpt if pt is able to get out and about. Pt and will speak with therapist and notify [facility]FFRIES of their preference of HHC vs outpt vs no therapy at ar.
[2021-07-06] MEDS: Enoxaparin 40 MG/0.4 ML Syringe SC (11:59)
[2021-07-06] MEDS: FLUoxetine 20 MG Capsule 40 MG PO (12:00)
[2021-07-06] MEDS: Propranolol 10 MG Tablet 20 MG PO (12:00)
[2021-07-06] MEDS: Finasteride 5 MG Tablet PO (12:00)
[2021-07-06] MEDS: Lisinopril 10 MG Tablet PO (12:00)
[2021-07-06] MEDS: Senna Tablet 2 TABLET PO (12:01)
[2021-07-06] MEDS: hydroCHLOROthiazide 12.5mg 12.5 MG PO (12:01)
[2021-07-06] MEDS: Pantoprazole Sodium 40 MG Tablet PO (12:02)
[2021-07-06] MEDS: Aspirin E.C. 81 MG Tablet PO (12:02)
[2021-07-06] MEDS: Psyllium 1 PACKET PO (12:02)
[2021-07-06] MEDS: amLODIPine 5 MG Tablet PO (12:02)
== END 2021-07-06 15:02 | disposition home health service (06) | DRG 872 ==
LOC: ED 18:58 → MS3 19:46
PROVIDERS: Internal Medicine; Physician Assistant; Admitting Provider Family Medicine; Emergency Provider Emergency Medicine; PCP Family Medicine; Visit Provider Internal Medicine
DX: A41.81 Sepsis due to Enterococcus (principal); G93.40 Encephalopathy, unspecified; N17.9 Acute kidney failure, unspecified; E87.1 Hypo-osmolality and hyponatremia; N30.00 Acute cystitis without hematuria; N41.0 Acute prostatitis; R78.81 Bacteremia; R65.20 Severe sepsis without septic shock; E11.22 Type 2 diabetes mellitus with diabetic chronic kidney disease; E11.51 Type 2 diabetes mellitus with diabetic peripheral angiopathy without gangrene; Z79.4 Long term (current) use of insulin; N18.30 Chronic kidney disease, stage 3 unspecified; B95.2 Enterococcus as the cause of diseases classified elsewhere; E78.00 Pure hypercholesterolemia, unspecified; E78.5 Hyperlipidemia, unspecified; I12.9 Hypertensive chronic kidney disease with stage 1 through stage 4 chronic kidney disease, or unspecified chronic kidney disease; G47.33 Obstructive sleep apnea (adult) (pediatric); I25.10 Atherosclerotic heart disease of native coronary artery without angina pectoris; F41.9 Anxiety disorder, unspecified; E87.6 Hypokalemia; N40.1 Benign prostatic hyperplasia with lower urinary tract symptoms; B96.89 Other specified bacterial agents as the cause of diseases classified elsewhere; K59.09 Other constipation; F32.A Depression, unspecified; R33.9 Retention of urine, unspecified; Z79.82 Long term (current) use of aspirin; Z87.891 Personal history of nicotine dependence; N32.0 Bladder-neck obstruction; Z79.01 Long term (current) use of anticoagulants; N28.1 Cyst of kidney, acquired; Z95.5 Presence of coronary angioplasty implant and graft; Z99.89 Dependence on other enabling machines and devices
CPT/HCPCS: 36415; 51702; 71045; 76770; 76872; 80048; 80053; 80202; 81001; 83605; 84484; 85025; 85610; 85730; 87040; 87077; 87086; 87088; 87149; 87186; 87426; 93005; 93306; 93312; 93320; 93325; 94640; 97110; 97116; 97161; 97166; 97530; 99251; 99284; 99285; J7030; J7040; J7050; Q9957; A4216; C8929; G0463; J0290; J0696; J1940; J2405

== ENCOUNTER 2021-07-14 12:38 | Day surgery (SDC) | payer MEDICARE, OTHER, SELFPAY ==
[2021-07-14] VITALS (8 sets, daily range): BP systolic 141–174; BP diastolic 66–75; PULSE 53–77; RESP 16–18; TEMP 35.8–36.6; O2SAT 98–100; BMI 27.3
[2021-07-14] MEDS: Lactated Ringers 1,000 ML 15 ML IV (13:21)
[2021-07-14] MEDS: Cefazolin 2 GM in 0.9% Normal Saline 100 ML IV (15:12)
--- NOTE | 2021-07-14 16:01 | HP.PCM_ITS ---
HPI - General HPI Narrative NARESH MONZON, is a 80 M who presents transurethral resection of the prostate for history of retention of urine and recurrent urinary tract infections [facility] Medical History (Updated 07/14/21 @ 00:02 by Background Luis) Anxiety Arthritis Atherosclerotic heart disease of [place] coronary artery without angina pectoris Benign prostatic hypertrophy Cardiology follow-up encounter Chest pain Coronary artery disease Depression Dizziness and giddiness Dyspnea Easy bruising Enterococcus UTI Essential hypertension Fatigue Former smoker H/O appendicitis History of echocardiogram History of hiatal hernia History of stress test History of tilt table evaluation History of transesophageal echocardiography (VIOLETTE) Indwelling urethral catheter present 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 [facility] use of drug Low iron Neck pain on left side REHAN (obstructive sleep apnea) Precordial chest pain Presence of stent in coronary artery (~09/08/10) PTSD (post-traumatic stress disorder) Pulmonary hypertension Pure hypercholesterolemia Restless legs syndrome (RLS) Shortness of breath Syncope and collapse Walker as ambulation aid Wears glasses Wears hearing aid Home Medications multivitamin 1 ea PO DAILY 12/08/15 [History Last Taken 07/13/21] fluoxetine 40 mg capsule 40 mg PO DAILY 07/04/18 [History Last Taken 07/13/21] aspirin 81 mg tablet,delayed release 81 mg PO DAILY #1 tab 09/18/19 [Rx Last Taken 07/13/21] oxycodone 5 mg PO Q6H PRN PRN 01/26/20 [History Last Taken 07/13/21] nitroglycerin 0.4 mg sublingual tablet 0.4 mg SUBLINGUAL Q5-15M PRN #25 tab 03/17/20 [Rx Last Taken 07/13/21] acetaminophen 500 mg tablet 500 mg PO Q6H PRN 06/17/20 [History Last Taken 07/13/21] propranolol 20 mg tablet 20 mg PO BID #180 tab 02/23/21 [Rx Last Taken 07/14/21] lisinopril 10 mg tablet 10 mg PO BID #180 tab 03/01/21 [Rx Last Taken 07/14/21] amlodipine 5 mg tablet 5 mg PO BID tab 03/17/21 [History Last Taken 07/14/21] diclofenac sodium 1 ea TOPICAL BID 06/29/21 [History Last Taken 07/13/21] rosuvastatin 10 mg PO QHS 06/29/21 [History Last Taken 07/13/21] linezolid 600 mg PO Q12H 14 Days #28 tab 07/06/21 [Rx Last Taken 07/13/21] hydrochlorothiazide 12.5 mg PO DAILY 07/09/21 [History Last Taken 07/13/21] Allergy/AdvReac Type Severity Reaction Status Date / Time hydrocodone [From Vicodin] Allergy Other Verified 07/14/21 13:20 orphenadrine Allergy Unknown Verified 07/14/21 13:20 pregabalin Allergy Swelling Verified 07/14/21 13:20 atorvastatin [From Lipitor] AdvReac Severe Intolerance Verified 07/14/21 13:20 ,Myalgias Family History Father CVA (cerebral vascular accident) Mother Cardiomegaly Brother CAD (coronary artery disease) Hx CABG and valve replacement Diabetes Brother History of heart valve replacement Brother Rheumatic fever Sister Hypertension Aortic aneurysm H/O aortic valve replacement Brother Cancer bladder Brother Thyroid disorder Surgical History (Updated 07/09/21 @ 13:14 by Briseida Bailey) H/O heart artery stent History of appendectomy History of colonoscopy History of hydrocelectomy History of right hip replacement History of vasectomy hx cervical stenosis Presence of coronary angioplasty implant and graft (~09/08/10) S/P right knee arthroscopy Social History household members: spouse housing: house Smoking Status: Former smoker pack-years: 20 Tobacco: How many years used: 22 second hand exposure: No alcohol intake: never substance use type: does not use caffeine: Yes Type: carbonated beverages Number of servings: 1 and tea what type of physical activity do you participate in: none seatbelt use: always do you feel safe at home: Yes Vital Signs Vital Signs Vital Signs: 07/14/21 13:14 Temperature 97.2 F L Temperature Source Temporal Pulse Rate 53 L Respiratory Rate 16 Respiratory Pattern Normal Blood Pressure 148/73 H Blood Pressure Mean 98 Blood Pressure Source Monitor Blood Pressure Position Semi-Fowlers Blood Pressure Location Right Arm Pulse Ox 100 Oxygen Delivery Method Room Air Weight Weight: 94 kg Body Mass Index (BMI) 27.3
--- NOTE | 2021-07-14 16:02 | DCINST_ITS ---
Discharge Instructions Diet Discharge Diet: No restrictions Activity Discharge Activity: Return to Normal Activity and May Not Drive (while taking narcotic pain medications.) Dressing / Incision Call your doctor if you observe: Fever of 101 or Higher Follow Up Care Please Follow Up With: Jalen Ibarra MD When: Call [phone] for an appointment Test Results: Test results from this visit will be discussed in further detail at your follow-up appointment, if applicable. Discharge Plan Admission Primary Reason for Your Visit: trev Attending Provider: Jalen Ibarra Primary Care Provider: Harvinder Vaughan Instructions Patient Instructions: [facility] Home Recovery Discharge Orders/Prescriptions Prescriptions: Continued fluoxetine [Prozac] 40 mg capsule 40 mg PO DAILY RF: 0 Hold Instructions: until done with Zyvox aspirin 81 mg tablet,delayed release (DR/EC) 81 mg PO DAILY Qty: 1 RF: 0 acetaminophen [Tylenol Extra Strength] 500 mg tablet 500 mg PO Q6H PRN (Reason: Pain) RF: 0 multivitamin 1 EACH tablet 1 ea PO DAILY RF: 0 oxycodone 5 MG tablet 5 mg PO Q6H PRN PRN (Reason: Pain Score 1-10/10) RF: 0 hydrochlorothiazide 25 mg tablet 12.5 mg PO DAILY RF: 0 diclofenac sodium 1 % gel 1 ea topical BID RF: 0 rosuvastatin 10 mg tablet 10 mg PO QHS RF: 0 linezolid 600 mg tablet 600 mg PO Q12H 14 Days Qty: 28 RF: 0 nitroglycerin 0.4 mg tablet, sublingual 0.4 mg SUBLINGUAL Q5-15M PRN (Reason: chest pain) Qty: 25 RF: 1 propranolol 20 mg tablet 20 mg PO BID Qty: 180 RF: 3 lisinopril 10 mg tablet 10 mg PO BID Qty: 180 RF: 3 amlodipine 5 mg tablet 5 mg PO BID RF: 0 Discontinued tamsulosin 0.4 mg capsule 0.8 mg PO QHS RF: 0 dutasteride [Avodart] 0.5 mg capsule 0.5 mg PO DAILY RF: 0 Referrals / Follow Up: Jalen Ibarra MD [STAFF PHYSICIAN] - Harvinder Vaughan MD [Primary Care Provider] - Disposition Disposition (needs filled in before D/C Order can be placed): Home, Self Care
--- NOTE | 2021-07-14 16:02 | OP.PCM_ITS ---
Report of Operation Date of Procedure: 07/14/21 Pre-Operative Diagnosis: BPH with obstruction and retention of urine recurrent urinary tract infections Post-Operative Diagnosis: Same Surgery/Procedure Performed:: Transurethral section prostate Description of Surgical Findings:: In the preoperative setting I discussed with the patient how the surgery would be done with expect afterwards. We discussed how a prostate resection is done and we discussed the risk of the surgery including, bleeding, infection, retrograde ejaculation, changes with ejaculation or intercourse,. We discussed the possibility that the resection of the prost ate may not alleviate his urinary symptoms. We discussed the small risk of developing scar tissue along the urethral channel and strictures. We also discussed the chance of the prostate could grow back and he may need further surgery or treatment in the future for prostate problems. Patient was taken back to the operating room, timeout procedure was performed, he was identified and marked and placed on the operating room table. He underwent general anesthesia. He was placed in dorsolithotomy position. Penis and testicles were prepped and draped in usual sterile fashion. Went into the bladder using the visual obturator with a resectoscope. Once inside the bladder identified the right and left ureteral orifice. I then identified the prostate and the anatomy of the prostate. I marked out the area of the sphincter and the verumontanum was identified. I then proceeded with the prostate resection first resected the median lobe. And then resected the right lobe of the prostate. T hen to resect the left lobe of the prostate. I then resected the apical tissue of the prostate. This was a complete resection of all obstructive tissue to improve voiding and relieve obstruction. I then made sure that there was no injury to the sphincter or the verumontanum was still intact. At the end of the resection all the chips were Ellik out of the bladder. I then identified the left and right ureteral orifice and these were confirmed to be in good position and effluxing and not injured. The resectoscope was removed, a 22 [place] catheter was placed into the bladder on continuous irrigation. And the urine was fairly light pink color and draining normally. He was taken back to the PACU in good condition. CPT 15087 Surgeon: Jalen Ibarra Type of Anesthesia: General Drains: 22fr [address] way Admit VTE Documentation VTE Present on Admission: No VTE Mechan Device Prophylaxis: SCD's VTE Pharm Prophylaxis ordered?: No
[2021-07-14] MEDS: Acetaminophen 500 MG Tablet PO (19:03)
[2021-07-14] MEDS: Lisinopril 10 MG Tablet PO (21:22)
[2021-07-14] MEDS: Linezolid 600 MG Tablet PO (21:22)
[2021-07-14] MEDS: amLODIPine 5 MG Tablet PO (21:22)
[2021-07-14] MEDS: Propranolol 10 MG Tablet 20 MG PO (21:23)
--- NOTE | 2021-07-15 | IMM_PTH ---
PATIENT: NARESH MONZON LOC: [facility] [place] U#:[id number] AGE/SX: 80/M ROOM: RE07/14/[address]: Dr. Jalen Ibarra MD : 1940 BED: DIS: 07/15/2021 SPEC #: [id number] RECD: 07/16/21 11:45 STATUS: SOUVonda REQ #: [id number] ELIE: 07/15/21 00:[address]: Jalen Ibarra DEPT: IMMUNOHISTOCHEMISTRY RECD BY: Charla Cortez ENTERED: 07/16/21 11:46 SP TYPE: IMMUNO OTHR DR: Dr. Harvinder Vaughan MD Tissues: Prostate, NOS Procedures: P40 (add) 34BE12 (initial) PHYSICIAN & INSTITUTION [place] [address] SPECIMEN INFORMATION: Tissue Source: Prostate Clinical Info: BPH with lower urinary tract symptoms Specimen Number: [id number] #1 CPT code: 38555, 92849 METHODOLOGY: Deparaffinized sections of prefer/formalin-fixed tissue or PAP/DQ stained slides are incubated with monoclonal/polyclonal antibodies/oligonucleotide probes. Localization is made via biotin free immunoperoxidase method. Appropriate controls are performed and reacted as expected. Results on target cell population are indicated in the following table: RESULTS: ANTIBODY / CLONE RESULT Block 1 P40 (BC28) positive 34BE12 (34BE12) positive These tests were developed and their performance characteristics determined by [facility]. They may not have been cleared or approved by the U.S. Food and Drug Administration. The FDA has determined that such clearance or approval is not necessary. The above immunohistochemical/dualISH markers are ordered and reviewed by the Pathologist. INTERPRETATION: Prostate, transurethral resection: Benign prostatic tissue. AM:maddison 07/19/2021
--- NOTE | 2021-07-15 | PROS_PTH ---
PATIENT: NARESH MONZON [place] [facility] [place][id number] AGE/SX: 80/M ROOM: RE07/14/[address]: Dr. Jalen Ibarra MD : 1940 BED: DIS: 07/15/2021 SPEC #: [id number] RECD: 07/15/21 12:44 STATUS: PARKER HUSTON #: [id number] ELIE: 07/15/21 00:[address]: Jalen Ibarra DEPT: SURGICAL PATHOLOGY RECD BY: Armando Wyatt ENTERED: 07/15/21 12:44 SP TYPE: TURP OTHR DR: Dr. Harvinder Vaughan MD Tissues: Prostate, NOS Procedures: Surgery Specimen Level IV HEADER OPERATION: Cysto, transurethral resection prostate, [facility] PRE-OP DIAGNOSIS: BPH with lower urinary tract symptoms, feeling of incomplete bladder emptying, frequency of micturition TISSUE SUBMITTED: Prostate tissue MICROSCOPIC DIAGNOSIS Prostate, transurethral resection: Benign nodular hyperplasia, glandular and stromal types. Mild chronic inflammation. See comment. AM:maddison 07/16/2021 COMMENT Immunohistochemistry ([id number]) supports the above diagnosis. MICROSCOPIC DESCRIPTION Slides are reviewed. GROSS DESCRIPTION Received is one container labeled with the patient's name and designated prostate tissue. The specimen consists of multiple irregular fragments of pink-leonard, rubbery, soft tissue that in aggregate weigh 4.2 gm and measure in aggregate 6 x 3 x 0.2 cm. The entire specimen is submitted in four cassettes. / AM:maddison 07/15/2021 TC:5 CPT: 50435
[2021-07-15 04:13] VITALS: BP 167/75; PULSE 69; RESP 18; TEMP 36.9; O2SAT 98
[2021-07-15] MEDS: Acetaminophen 500 MG Tablet PO (04:21)
[2021-07-15 07:34] VITALS: BP 149/72; PULSE 71; RESP 18; TEMP 36.8; O2SAT 98
[2021-07-15] MEDS: Lisinopril 10 MG Tablet PO (09:24)
[2021-07-15] MEDS: Multivitamins,Therapeutic Tablet 1 TABLET PO (09:25)
[2021-07-15] MEDS: hydroCHLOROthiazide 6.25mg TAB 12.5 MG PO (09:25)
[2021-07-15] MEDS: Linezolid 600 MG Tablet PO (09:25)
[2021-07-15] MEDS: Propranolol 10 MG Tablet 20 MG PO (09:25)
[2021-07-15] MEDS: amLODIPine 5 MG Tablet PO (09:25)
[2021-07-15] MEDS: FLUoxetine 20 MG Capsule 40 MG PO (09:25)
[2021-07-15 11:10] VITALS: BP 154/65; PULSE 76; RESP 18; TEMP 36.6; O2SAT 99
== END 2021-07-15 13:32 | disposition home or self-care (01) ==
LOC: SDC 12:38 → AC 12:39 → MS3 16:13
PROVIDERS: PCP Family Medicine; Referring Provider Urology; Visit Provider Urology
PROC: (CPT 52601; principal; 2021-07-14 14:40)
DX: N40.1 Benign prostatic hyperplasia with lower urinary tract symptoms (principal); R33.9 Retention of urine, unspecified; Z79.82 Long term (current) use of aspirin; I10 Essential (primary) hypertension; I25.10 Atherosclerotic heart disease of native coronary artery without angina pectoris; Z87.891 Personal history of nicotine dependence; E78.00 Pure hypercholesterolemia, unspecified
CPT/HCPCS: 52601; 88305; 88341; 88342; J7120; J2405

== ENCOUNTER 2021-07-17 23:30 | Emergency (ER) | payer MEDICARE, OTHER, SELFPAY ==
[2021-07-17 23:30] VITALS: BP 123/65; PULSE 65; RESP 16; TEMP 36.3; O2SAT 100; BMI 28.2
[2021-07-18 01:41] LABS: Absolute Lymphocyte Count 1.67 X10^3/uL (0.83-4.51); Absolute Neutrophil Count 7.1 X10^3/uL (2.0-7.7); Bacteria 0 SEEN /hpf (None Seen); Basophil# 0.11 X10^3/uL; Basophil% 1.1 % (0-1); Eosinophil# 0.26 X10^3/uL; Eosinophils% 2.6 % (0-5); Hematocrit 31.2 % (40-54); Hemoglobin 10.8 g/dL (13.0-16.5); Lymphocyte # 1.67 X10^3/ul (0.83-4.51); Lymphocyte % 16.8 % (19-41); Mean Corp Hgb Conc 34.6 g/dL (32-36); Mean Corpuscular Volume 92.3 fL (80-94); Mean Platelet Vol. 8.3 fl (6.2-12.0); Monocyte# 0.75 X10^3/uL; Monocyte% 7.5 % (0-10); Mucous, Urine 0 SEEN /hpf (<or=2+); NRBC Flagged by Analyzer 0 % (0-5); Neutrophil # 7.14 X10^3/uL (2.7-7.7); Neutrophil % 71.6 % (47-70); Platelet Count 420 K/mm3 (150-450); RBC Distribution Width CV 11.8 % (11.6-14.6); RBC Distribution Width SD 39.9 fl (35.1-43.9); Red Blood Count 3.38 M/mm3 (4.6-6.2); Squamous Epithelial Cells - UA 0 SEEN /hpf (0-5)
--- NOTE | 2021-07-18 01:42 | EDS_ITS ---
HPI History of Present Illness Chief Complaint: Complaint Narrative Narrative: 81-year-old male with recent history of bacteremia secondary to UTI. He is also status post TURP by Dr. Ibarra. Patient states he has been feeling otherwise well but noticed that his urine is starting to slowly trickle. He states he was voiding fairly well. He had a Clark catheter recently and this was removed. Patient states he is able to urinate although it is a weak stream. Patient denies any fever, nausea, vomiting. He does not have abdominal pain. He states he feels otherwise well. [facility] Medical History (Updated 07/18/21 @ 03:[address] Angel Mix, DO) Anxiety Arthritis Atherosclerotic heart disease of [place] coronary artery without angina pectoris Benign prostatic hypertrophy Cardiology follow-up encounter Chest pain Coronary artery disease Depression Dizziness and giddiness Dyspnea Easy bruising Enterococcus UTI Essential hypertension Fatigue Former smoker H/O appendicitis History of echocardiogram History of hiatal hernia History of stress test History of tilt table evaluation History of transesophageal echocardiography (VIOLETTE) Indwelling urethral catheter present 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 half-way use of drug Low iron Neck pain on left side REHAN (obstructive sleep apnea) Precordial chest pain Presence of stent in coronary artery (~09/08/10) PTSD (post-traumatic stress disorder) Pulmonary hypertension Pure hypercholesterolemia Restless legs syndrome (RLS) Sepsis due to urinary tract infection Shortness of breath Syncope and collapse Walker as ambulation aid Wears glasses Wears hearing aid Home Medications multivitamin 1 ea PO DAILY 12/08/15 [History Last Taken 07/13/21] fluoxetine 40 mg capsule 40 mg PO DAILY 07/04/18 [History Last Taken 07/13/21] aspirin 81 mg tablet,delayed release 81 mg PO DAILY #1 tab 09/18/19 [Rx Last Taken 07/13/21] oxycodone 5 mg PO Q6H PRN PRN 01/26/20 [History Last Taken 07/13/21] nitroglycerin 0.4 mg sublingual tablet 0.4 mg SUBLINGUAL Q5-15M PRN #25 tab 03/17/20 [Rx Last Taken 07/13/21] acetaminophen 500 mg tablet 500 mg PO Q6H PRN 06/17/20 [History Last Taken 07/13/21] propranolol 20 mg tablet 20 mg PO BID #180 tab 02/23/21 [Rx Last Taken 07/14/21] lisinopril 10 mg tablet 10 mg PO BID #180 tab 03/01/21 [Rx Last Taken 07/14/21] amlodipine 5 mg tablet 5 mg PO BID tab 03/17/21 [History Last Taken 07/14/21] diclofenac sodium 1 ea TOPICAL BID 06/29/21 [History Last Taken 07/13/21] rosuvastatin 10 mg PO QHS 06/29/21 [History Last Taken 07/13/21] linezolid 600 mg PO Q12H 14 Days #28 tab 07/06/21 [Rx Last Taken 07/13/21] hydrochlorothiazide 12.5 mg PO DAILY 07/09/21 [History Last Taken 07/13/21] Allergy/AdvReac Type Severity Reaction Status Date / Time hydrocodone [From Vicodin] Allergy Other Verified 07/17/21 23:32 orphenadrine Allergy Unknown Verified 07/17/21 23:32 pregabalin Allergy Swelling Verified 07/17/21 23:32 atorvastatin [From Lipitor] AdvReac Severe Intolerance Verified 07/17/21 23:32 ,Myalgias Family History Father CVA (cerebral vascular accident) Mother Cardiomegaly Brother CAD (coronary artery disease) Hx CABG and valve replacement Diabetes Brother History of heart valve replacement Brother Rheumatic fever Sister Hypertension Aortic aneurysm H/O aortic valve replacement Brother Cancer bladder Brother Thyroid disorder Surgical History (Updated 07/18/21 @ 03:02 by Adore Qureshi) H/O heart artery stent History of appendectomy History of colonoscopy History of hydrocelectomy History of right hip replacement History of vasectomy hx cervical stenosis Presence of coronary angioplasty implant and graft (~09/08/10) S/P right knee arthroscopy S/P TURP Social History household members: spouse housing: house Smoking Status: Former smoker pack-years: 20 Tobacco: How many years used: 22 second hand exposure: No alcohol intake: never substance use type: does not use caffeine: Yes Type: carbonated beverages Number of servings: 1 and tea what type of physical activity do you participate in: none seatbelt use: always do you feel safe at home: Yes ROS ROS ED Constitutional Constitutional ED: Denies chills or fever(s) Eyes Eyes: Denies blurry vision or change in vision ENT ENT ED: Denies rhinorrhea or sore throat Cardiovascular Cardiovascular: Denies chest pain or palpitations Respiratory/Chest Respiratory/Chest: Denies cough or dyspnea Gastrointestinal Gastrointestinal: Denies abdominal pain, nausea or vomiting Genitourinary Genitourinary ED: Reports dysuria and other Details: Urinary retention Musculoskeletal Musculoskeletal: Denies arthralgias or myalgias Integumentary Denies rash Neurologic Neurologic: Denies headache(s) or weakness Psychiatric Psychiatric: Denies anxiety or depression EXAM Physical Exam Const Vital Signs: 07/17/21 23:30 07/18/21 03:06 Temperature 97.3 F L Temperature Source Temporal Pulse Rate 65 64 Respiratory Rate 16 Blood Pressure 123/65 H 152/76 H Blood Pressure Mean 84 Pulse Ox 100 99 Oxygen Delivery Method Room Air Positive well nourished General Appearance ED: NAD; Negative for pallor HEENT normocephalic and atraumatic Eyes PERRL and EOMs intact bilaterally General Eye ED: Negative for pale conjunctiva or scleral icterus Resp normal respiratory effort and clear to auscultation bilaterally Cardio regular rate and regular rhythm GI non-tender and non-distended Palpation: soft Neuro oriented x3, CN's II-XII intact bilaterally, moves all extremities, no focal motor deficits and no sensory deficits noted Sensorium / Orientation: alert Psych mental status grossly normal Skin General Skin Exam: Negative for jaundice or pallor MDM MDM MDM Narrative Medical decision making narrative: Patient presenting with difficulty urinating after TURP procedure done recently. He states he does not feel ill. He has a history of being septic from this. I did check a urinalysis which does show some occult blood but does not identify an infection. Patient is currently on linezolid from infectious disease. His CBC shows that he does not have a leukocytosis and his hemoglobin is stable. Renal function electrolytes are unremarkable. Clark catheter was placed patient tolerated procedure well. He is comfortable being discharged home with a leg bag. He states he will follow- up with Dr. Ibarra. Impression: 1. Urinary retention Lab Data Labs: Laboratory Results - last 24 hr 07/18/21 07/18/21 07/18/21 01:20 01:20 01:20 WBC 10.0 RBC 3.38 L Hgb 10.8 L Hct 31.2 L MCV 92.3 MCH 32.0 MCHC 34.6 RDW Std Deviation 39.9 RDW Coeff of Guido 11.8 Plt Count 420 MPV 8.3 Immature Gran % (Auto) 0.400 Neut % (Auto) 71.6 H Lymph % (Auto) 16.8 L [place] % (Auto) 7.5 Eos % (Auto) 2.6 Baso % (Auto) 1.1 H Absolute Neuts (auto) 7.1 Absolute Lymphs (auto) 1.67 Nucleated RBC % 0 Sodium 134 L Potassium 3.8 Chloride 100 Carbon Dioxide 25.0 Anion Gap 9 BUN 20 H Creatinine 1.27 Estim Creat Clear Calc 52.43 Est GFR (MDRD) Af Amer 70 Est GFR (MDRD) Non-Af 58 L BUN/Creatinine Ratio 15.7 Glucose 117 H Calcium 9.1 Urine Color Yellow Urine Clarity Clear Urine pH 6.5 Ur Specific [place] 1.010 Urine Protein 30 H Urine Glucose (UA) Normal Urine Ketones Negative Urine Occult Blood 250 H Urine Nitrite Negative Urine Bilirubin Negative Urine Urobilinogen Normal Ur Leukocyte Esterase 100 H Urine RBC 50-100 SEEN Urine WBC 0-5 SEEN Ur Squamous Epith Cells 0 SEEN Urine Bacteria 0 SEEN Urine Mucus 0 SEEN Discharge Plan Triage Chief Complaint: Complaint ED Provider: Angel Mix Dx/Rx/DC Orders Clinical Impression: Acute urinary retention Instructions: ED Urinary Retention, Male Prescriptions: No Action fluoxetine [Prozac] 40 mg capsule 40 mg PO DAILY RF: 0 Hold Instructions: until done with Zyvox aspirin 81 mg tablet,delayed release (DR/EC) 81 mg PO DAILY Qty: 1 RF: 0 acetaminophen [Tylenol Extra Strength] 500 mg tablet 500 mg PO Q6H PRN (Reason: Pain) RF: 0 multivitamin 1 EACH tablet 1 ea PO DAILY RF: 0 oxycodone 5 MG tablet 5 mg PO Q6H PRN PRN (Reason: Pain Score 1-10/10) RF: 0 hydrochlorothiazide 25 mg tablet 12.5 mg PO DAILY RF: 0 diclofenac sodium 1 % gel 1 ea topical BID RF: 0 rosuvastatin 10 mg tablet 10 mg PO QHS RF: 0 linezolid 600 mg tablet 600 mg PO Q12H 14 Days Qty: 28 RF: 0 nitroglycerin 0.4 mg tablet, sublingual 0.4 mg SUBLINGUAL Q5-15M PRN (Reason: chest pain) Qty: 25 RF: 1 propranolol 20 mg tablet 20 mg PO BID Qty: 180 RF: 3 lisinopril 10 mg tablet 10 mg PO BID Qty: 180 RF: 3 amlodipine 5 mg tablet 5 mg PO BID RF: 0 Primary Care Provider: Harvinder Vaughan Referrals: Harvinder Vaughan MD [Primary Care Provider] - Disposition Disposition: Home, Self Care Discharge Date/Time: 07/18/21 03:15
[2021-07-18 01:46] LABS: Color, Urine Yellow (Yellow); Glucose, Dipstick Normal (Normal); Ketone-Dipstick Negative (Negative); Leukocyte Esterase-Dipstick 100 /ul (Negative); Nitrite-Dipstick Negative (Negative); Occult Blood-Urine 250 /ul (Negative); Protein-Dipstick 30 mg/dl (Negative); Urine Bilirubin Dipstick Negative (Negative); Urine Clarity Clear (Clear); Urine Urobilinogen Normal (Normal); Urine pH 6.5 (5.0 - 8.0)
[2021-07-18 01:54] LABS: Anion Gap 9 (5-15); BUN 20 mg/dL (7-18); BUN/Creat Ratio 15.7 RATIO (10-20); Calcium,Total 9.1 mg/dL (8.5-10.1); Chloride 100 mmol/L (98-107); Creatinine, Serum 1.27 mg/dL (0.70-1.30); EST Glomerular Filtration Rate 58 mL/min (>60); Est Glom Filt Rate - Afr Amer 70 mL/min (>60); Estimated Creatinine Clearance 52.43 ml/min; Glucose 117 mg/dL (74-106); Potassium 3.8 mmol/L (3.5-5.1); Sodium Level 134 mmol/L (136-145)
[2021-07-18 01:58] LABS: Red Blood Cells-Urine 50-100 SEEN /hpf (0-5); White Blood Cells 0-5 SEEN /hpf (0-5)
[2021-07-18 03:06] VITALS: BP 152/76; PULSE 64; O2SAT 99
== END 2021-07-18 03:15 | disposition home or self-care (01) ==
PROVIDERS: Emergency Provider Student in an Organized Health Care Education/Training Program; PCP Family Medicine; Visit Provider Student in an Organized Health Care Education/Training Program
DX: R33.9 Retention of urine, unspecified (principal); I25.10 Atherosclerotic heart disease of native coronary artery without angina pectoris; E78.00 Pure hypercholesterolemia, unspecified; I10 Essential (primary) hypertension; Z87.891 Personal history of nicotine dependence
CPT/HCPCS: 51702; 80048; 81001; 85025; 99284

== ENCOUNTER 2022-01-27 13:56 | Emergency (ER) | payer MEDICARE, OTHER, SELFPAY ==
[2022-01-27 13:57] VITALS: BP 119/68; PULSE 66; RESP 15; TEMP 36.7; O2SAT 98; BMI 27.4
[2022-01-27 14:01] VITALS: BP 145/63; PULSE 62; RESP 17; TEMP 36.9; O2SAT 100
[2022-01-27 14:10] VITALS: O2SAT 98
[2022-01-27 14:11] VITALS: BP 145/63; PULSE 62; RESP 20; TEMP 36.9; O2SAT 99
[2022-01-27 14:13] VITALS: O2SAT 99
--- NOTE | 2022-01-27 14:48 | ED.VIS.DYS ---
HPI History of Present Illness Chief Complaint: Shortness of Breath Narrative Narrative: Patient presented with generalized weakness and subjective shortness of breath. He was diagnosed with COVID-19 on January 18. Symptoms started on the . He was seen by urgent care and was tested there. He has not been treated for COVID-19 with Paxlovid. Patient's fever stopped 4 days ago. He is able to eat and drink normally. He is making urine and stool. He is not having chest pain. He does admit to a mild cough. He does not have production of sputum. [facility] Medical History Anxiety Arthritis Atherosclerotic heart disease of [place] coronary artery without angina pectoris Benign prostatic hypertrophy Cardiology follow-up encounter Chest pain Coronary artery disease Depression Dizziness and giddiness Dyspnea Easy bruising Enterococcus UTI Essential hypertension Fatigue Former smoker H/O appendicitis History of echocardiogram History of hiatal hernia History of stress test History of tilt table evaluation History of transesophageal echocardiography (VIOLETTE) Indwelling urethral catheter present 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 [employer] use of drug Low iron Neck pain on left side REHAN (obstructive sleep apnea) Precordial chest pain Presence of stent in coronary artery (~09/08/10) PTSD (post-traumatic stress disorder) Pulmonary hypertension Pure hypercholesterolemia Restless legs syndrome (RLS) Sepsis due to urinary tract infection Shortness of breath Syncope and collapse Walker as ambulation aid Wears glasses Wears hearing aid Home Medications multivitamin 1 ea PO DAILY 12/08/15 [History Last Taken 07/13/21] fluoxetine 40 mg capsule (Prozac) 40 mg PO DAILY 07/04/18 [History Last Taken 07/13/21] aspirin 81 mg tablet,delayed release 81 mg PO DAILY #1 TAB 09/18/19 [Rx Last Taken 07/13/21] oxycodone 5 mg tablet 5 mg PO Q6H PRN PRN Pain Score 1-02/2801/26/20 [History Last Taken 07/13/21] nitroglycerin 0.4 mg sublingual tablet 0.4 mg sublingual Q5-15M PRN chest pain #25 tabs 03/17/20 [Rx Last Taken 07/13/21] acetaminophen 500 mg tablet (Tylenol Extra Strength) 500 mg PO Q6H PRN Pain 06/17/20 [History Last Taken 07/13/21] propranolol 20 mg tablet 20 mg PO BID #180 tabs 02/23/21 [Rx Last Taken 07/14/21] lisinopril 10 mg tablet 10 mg PO BID #180 tabs 03/01/21 [Rx Last Taken 07/14/21] amlodipine 5 mg tablet 5 mg PO BID 03/17/21 [History Last Taken 07/14/21] diclofenac sodium 1 % topical gel 1 ea topical BID neck pain 06/29/21 [History Last Taken 07/13/21] rosuvastatin 10 mg tablet 10 mg PO QHS #90 tabs 12/13/21 [Rx Last Taken Unknown] Allergy/AdvReac Type Severity Reaction Status Date / Time hydrocodone [From Vicodin] Allergy Other Verified 01/27/22 13:57 orphenadrine Allergy Unknown Verified 01/27/22 13:57 pregabalin Allergy Swelling Verified 01/27/22 13:57 atorvastatin [From Lipitor] AdvReac Severe Intolerance Verified 01/27/22 13:57 ,Myalgias Family History Father CVA (cerebral vascular accident) Mother Cardiomegaly Brother CAD (coronary artery disease) Hx CABG and valve replacement Diabetes Brother History of heart valve replacement Brother Rheumatic fever Sister Hypertension Aortic aneurysm H/O aortic valve replacement Brother Cancer bladder Brother Thyroid disorder Surgical History H/O heart artery stent History of appendectomy History of colonoscopy History of hydrocelectomy History of right hip replacement History of vasectomy hx cervical stenosis Presence of coronary angioplasty implant and graft (~09/08/10) S/P right knee arthroscopy S/P TURP Social History household members: spouse housing: house Smoking Status: Former smoker pack-years: 20 Tobacco: How many years used: 22 second hand exposure: No alcohol intake: never substance use type: does not use caffeine: Yes Type: carbonated beverages Number of servings: 1 and tea what type of physical activity do you participate in: none seatbelt use: always do you feel safe at home: Yes ROS ROS ED Constitutional Constitutional ED: Denies chills or fever(s) Eyes Eyes: Denies change in vision or diplopia ENT ENT ED: Denies rhinorrhea or sore throat Cardiovascular Cardiovascular: Denies chest pain or palpitations Respiratory/Chest Respiratory/Chest: Reports cough and dyspnea Gastrointestinal Gastrointestinal: Denies abdominal pain or constipation Genitourinary Genitourinary ED: Denies dysuria Musculoskeletal Musculoskeletal: Denies arthralgias Integumentary Denies abscess or Abrasions Neurologic Neurologic: Denies headache(s) or paresthesias Psychiatric Psychiatric: Denies anxiety or depression EXAM Physical Exam Const Vital Signs: 01/27/22 13:57 01/27/22 14:11 01/27/22 14:01 Temperature 98.0 F 98.4 F 98.4 F Temperature Source Temporal Oral Oral Pulse Rate 66 62 62 Respiratory Rate 15 20 H 17 Respiratory Effort Respiratory Depth Respiratory Pattern Blood Pressure 119/68 145/63 H 145/63 H Blood Pressure Mean 85 90 90 Pulse Ox 98 99 100 Oxygen Delivery Method Room Air Room Air Room Air 01/27/22 14:13 Temperature Temperature Source Pulse Rate Respiratory Rate Respiratory Effort Short of Breath Respiratory Depth Normal Respiratory Pattern Normal Blood Pressure Blood Pressure Mean Pulse Ox Oxygen Delivery Method Room Air Positive well nourished General Appearance ED: NAD; Negative for pallor HEENT Reports moist mucous membranes atraumatic Eyes PERRL and EOMs intact bilaterally General Eye ED: Negative for pale conjunctiva or scleral icterus Resp normal respiratory effort and clear to auscultation bilaterally Auscultation: Negative for rales, rhonchi or wheezes Cardio regular rate and regular rhythm Neuro oriented x3 and CN's II-XII intact bilaterally Sensorium / Orientation: alert Speech: speech normal Gait (Neuro): normal gait Motor Exam: strength 5/5 throughout Psych mental status grossly normal Thought Process: normal thought process Skin no wounds General Skin Exam: Negative for jaundice or pallor MDM MDM MDM Narrative Medical decision making narrative: Patient presenting for evaluation because he is subjectively feeling short of breath at home. He was ambulated to his room and did not drop his O2 saturation below 98%. He did not need any assistance. He is on room air. His physical exam is unremarkable. He does not appear dehydrated. His lungs are clear to auscultation. Heart regular rate and rhythm without murmur. Patient does not well-appearing. He does report to me that he is able to eat and drink and is making normal urine and stool. He is not having vomiting or diarrhea. I did certified alcohol drug counselor the patient and his that I do not believe he needs any blood work or imaging at this time given his normal exam and vitals. They did agree at this time after long discussion. Patient stable for discharge home. Impression: 1. COVID-19 2. Dyspnea 3. Generalized Lab Data Attestation: I reviewed the patient's lab results. Discharge Plan Triage Chief Complaint: Shortness of Breath ED Provider: Angel Mix Dx/Rx/DC Orders Instructions: Coronavirus Disease 2019 (COVID-19): Caring for Yourself or Others Prescriptions: No Action fluoxetine [Prozac] 40 mg capsule 40 mg PO DAILY Hold Instructions: until done with Zyvox Label Comments: not taking while taking antibiotic linezolid aspirin 81 mg tablet,delayed release (DR/EC) 81 mg PO DAILY Qty: 1 0RF Label Comments: per Dr Ibarra last dose 07/08/21 for surgery on 07/16/21 acetaminophen [Tylenol Extra Strength] 500 mg tablet 500 mg PO Q6H PRN (Reason: Pain) multivitamin 1 EACH tablet 1 ea PO DAILY oxycodone 5 MG tablet 5 mg PO Q6H PRN PRN (Reason: Pain Score 1-10/10) diclofenac sodium 1 % gel 1 ea topical BID nitroglycerin 0.4 mg tablet, sublingual 0.4 mg SUBLINGUAL Q5-15M PRN (Reason: chest pain) Qty: 25 1RF Rx Instructions: do not exceed 3 doses per episode propranolol 20 mg tablet 20 mg PO BID Qty: 180 3RF lisinopril 10 mg tablet 10 mg PO BID Qty: 180 3RF amlodipine 5 mg tablet 5 mg PO BID rosuvastatin 10 mg tablet 10 mg PO QHS Qty: 90 3RF Primary Care Provider: Harvinder Vaughan Referrals: Harvinder Vaughan MD [Primary Care Provider] - Disposition Disposition: Home, Self Care
[2022-01-27 14:55] VITALS: BP 131/61; PULSE 61; O2SAT 99
== END 2022-01-27 14:56 | disposition home or self-care (01) ==
PROVIDERS: Emergency Provider Student in an Organized Health Care Education/Training Program; PCP Family Medicine; Visit Provider Student in an Organized Health Care Education/Training Program
DX: U07.1 COVID-19 (principal); I25.10 Atherosclerotic heart disease of native coronary artery without angina pectoris; Z82.3 Family history of stroke; I10 Essential (primary) hypertension; Z87.891 Personal history of nicotine dependence; E78.00 Pure hypercholesterolemia, unspecified; R06.00 Dyspnea, unspecified; Z95.5 Presence of coronary angioplasty implant and graft; G47.33 Obstructive sleep apnea (adult) (pediatric)
CPT/HCPCS: 99282; A4216

== ENCOUNTER → 2022-02-22 | Outpatient (CLI) | payer MEDICARE, OTHER, SELFPAY ==
--- NOTE | 2022-02-22 12:59 | ECHOCS_ITS ---
Reason For Study: CVA Procedure This was a 2D Doppler, Color Flow transthoracic echocardiogram. The study was technically difficult. Contrast injection was performed. Exam performed in department. Left Ventricle Normal LV size. Left ventricular systolic function is normal. The estimated ejection fraction is 65 %. No evidence for diastolic dysfunction. No regional wall motion abnormalities noted. Right Ventricle Normal RV size. Normal systolic function. Atria Normal left atrium. Normal right atrium. No doppler evidence for ASD. Mitral Valve There is no mitral annular calcification. Normal mitral valve. Trivial mitral valve insufficiency. Tricuspid Valve Normal tricuspid valve. Trivial tricuspid valve insufficiency. Right ventricular systolic pressure estimated to be 32 mmHg. Aortic Valve Trisinus/trileaflet aortic valve. Mild diffuse aortic valve thickening. Mild focal aortic valve calcification. Aortic sclerosis, no stenosis. Pulmonic Valve The pulmonic valve is not well visualized. Great Vessels Normal sized aortic root. Calcified aortic root. Pericardium/Pleural No pericardial effusion. Medication 22 gauge I.V. with prn adaptor inserted into right arm. Diluted definity 1.0ml given slow IV push to enhance endocardial definition. MMode/2D Measurements & Calculations LVIDd: 4.3 cm IVSd: 1.1 cm LVOT diam: 2.4 cm LVIDs: 2.5 cm LVPWd: 1.1 cm RVDd: 3.0 cm FS: 41.4 % LVOT area: 4.4 cm2 Ao root diam: 3.0 cm LAV(MOD-bp): 60.6 ml LA A4 area: 21.2 cm2 LAV(MOD-bp) Indexed: 27.6 ml/m2 LAV(MOD-sp2): 60.9 ml LAV(MOD-sp4): 60.8 ml LA dimension(2D): 3.1 cm RA A4 area: 18.4 cm2 Time Measurements MV dec time: 0.23 sec Doppler Measurements & Calculations MV E max eduardo: 53.6 cm/sec Lat Peak E' Eduardo: 6.2 cm/sec Med Peak E' Eduardo: 7.1 cm/sec MV A max eduardo: 81.7 cm/sec E/E' lat: 8.6 E/E' med: 7.5 MV E/A: 0.66 MV dec slope: 230.5 cm/sec2 Ao V2 max: 121.6 cm/sec LV V1 max: 97.8 cm/sec Ao max P.9 mmHg LV V1 max P.8 mmHg Ao V2 mean: 75.4 cm/sec LV V1 mean P.8 mmHg Ao mean P.7 mmHg LV V1 mean: 63.0 cm/sec Ao V2 VTI: 26.2 cm LV V1 VTI: 19.6 cm SETH(I,D): 3.3 cm2 SETH(V,D): 3.5 cm2 SV(LVOT): 86.2 ml PA V2 max: 110.3 cm/sec TR max eduardo: 270.2 cm/sec TR max P.2 mmHg ECHO/Echo Complete W/ Contrast Interpretation Summary The study was technically difficult. Contrast injection was performed. Left ventricular systolic function is normal. The estimated ejection fraction is 65 %. Trivial mitral valve insufficiency. Trivial tricuspid valve insufficiency. Aortic sclerosis, no stenosis. Calcified aortic root. Right ventricular systolic pressure estimated to be 32 mmHg. No evidence for diastolic dysfunction. Comment: VIOLETTE from 07/06/2021: reported: Bubble contrast study negative for righ t to left interatrial shunt. Ordering Physician: Mallorie Santos Referring Physician: Harvinder Vaughan Performed By: Mari Lance, JJ, RVT
== END | disposition home or self-care (01) ==
LOC: CVS 12:59
PROVIDERS: PCP Family Medicine; Referring Provider Physician Assistant Medical; Visit Provider Physician Assistant Medical
DX: I25.10 Atherosclerotic heart disease of native coronary artery without angina pectoris (principal)
CPT/HCPCS: 93306; Q9957; A4216; C8929

== ENCOUNTER → 2022-05-18 | Outpatient (CLI) | payer MEDICARE, OTHER, SELFPAY ==
[2022-05-18 09:37] LABS: AST(SGOT) 28 U/L (15-37); Alanine Aminotransfer ALT/SGPT 57 U/L (16-61); Albumin, Serum 3.6 g/dL (3.2-5.0); Alkaline Phosphatase 101 U/L (45-117); Bilirubin, Direct 0.18 mg/dL (0.00-0.30); Cholesterol 184 mg/dL (200); Globulin 4.3 g/dL (2.2-4.2); High Density Lipoprotein 58 mg/dL; Protein, Total 7.9 g/dL (6.4-8.2); Triglycerides 160 mg/dL; Very Low Density Lipoprotein 32 mg/dL (5-40)
== END | disposition home or self-care (01) ==
LOC: LAB 08:44
PROVIDERS: PCP Family Medicine; Referring Provider Internal Medicine Cardiovascular Disease; Visit Provider Internal Medicine Cardiovascular Disease
DX: E78.00 Pure hypercholesterolemia, unspecified (principal)
CPT/HCPCS: 36415; 80061; 80076

== ENCOUNTER → 2022-05-26 | Outpatient (CLI) | payer MEDICARE, OTHER, SELFPAY ==
[2022-05-26 17:20] LABS: Absolute Lymphocyte Count 1.44 X10^3/uL (0.83-4.51); Basophil# 0.07 X10^3/uL; Basophil% 0.6 % (0-1); Eosinophil# 0.24 X10^3/uL; Hematocrit 39.1 % (40-54); Hemoglobin 12.9 g/dL (13.0-16.5); Lymphocyte # 1.44 X10^3/ul (0.83-4.51); Lymphocyte % 12.3 % (19-41); Mean Platelet Vol. 10.3 fl (6.2-12.0); Monocyte# 0.89 X10^3/uL; Monocyte% 7.6 % (0-10); NRBC Flagged by Analyzer 0 % (0-5); Neutrophil # 9.02 X10^3/uL (2.7-7.7); Neutrophil % 77.1 % (47-70); Platelet Count 370 K/mm3 (150-450); RBC Distribution Width CV 12.9 % (11.6-14.6); RBC Distribution Width SD 44.5 fl (35.1-43.9); Red Blood Count 4.16 M/mm3 (4.6-6.2); White Blood Count 11.7 K/mm3 (4.4-11.0)
== END | disposition home or self-care (01) ==
LOC: LAB 16:03
PROVIDERS: PCP Family Medicine; Visit Provider Physician Assistant Medical
DX: R06.00 Dyspnea, unspecified (principal)
CPT/HCPCS: 36415; 85025

== ENCOUNTER → 2022-06-07 | Outpatient (CLI) | payer MEDICARE, OTHER, SELFPAY ==
--- NOTE | 2022-06-07 11:22 | STRESSREP_ITS ---
Stress Test Report Date: Procedure: Exercise tolerance test/imaging study Indications: Shortness of breath/dyspnea on exertion; CAD; PCI Consent: Per the patient Procedure: The patient exercised on a Erik protocol for 4 minutes and 33 seconds completing Stage I and 1 minute and 33 seconds of Stage II achieving a peak heart rate of 122 bpm (87% predicted maximal heart rate) with resting blood pressure of 150/70 mmHg and a peak blood pressure 204/52 mmHg and a peak MET capacity of 7 METs. The baseline ECG demonstrated normal sinus rhythm. The peak exercise ECG demonstrated no obvious ECG changes. There were no cardiac dysrhythmias pretest, during exercise, or recovery. The functional capacity was considered fair. There was no complaint of chest discomfort during exercise or recovery. The examination was discontinued secondary to dyspnea. Impression: 1. Technically adequate (percent predicted maximal heart rate greater than 85%) exercise tolerance test 2. Peak exercise ECG with no obvious ECG changes 3. There were no cardiac dysrhythmias pretest, during exercise, or recovery 4. Nuclear images pending Myocardial perfusion imaging study: Technique: The patient was injected with 14.8 mCi of technetium 99m Cardiolite and subsequently rest SPECT Cardiolite nuclear imaging was obtained in the horizontal long, vertical long, and short axis views. The patient exercised on a Erik protocol for 4 minutes and 33 seconds completing Stage I and 1 minute and 33 seconds of Stage II achieving a peak heart rate of 122 bpm (87% predicted maximal heart rate) with resting blood pressure of 150/70 mmHg and a peak blood pressure 204/52 mmHg and a peak MET capacity of 7 METs. The patient was injected with 44.5 mCi of technetium 99m Cardiolite and subsequently stress SPECT Cardiolite nuclear imaging was obtained in the horizontal long, vertical long, and short axis views. A gated Cardiolite study at peak stress was obtained. Interpretation: Rest and stress SPECT Cardiolite nuclear imaging status post realignment, normalization, and attenuation correction, demonstrates the appearance of relative uniform tracer uptake and myocardial perfusion appearing within normal limits. There is end systolic thickening and brightening. The gated Cardiolite study demonstrates myocardial thickening and inward wall motion. The reported LVEF is 70%. Impression: 1. Rest and stress SPECT Cardiolite nuclear imaging demonstrate relative uniform tracer uptake and myocardial perfusion appearing within normal limits. 2. The gated Cardiolite study reports an LVEF of 70%. This note was generated with [employer] software. It may contain incorrect words, spelling, and punctuation that were not noted in checking the note before signing.
== END | disposition home or self-care (01) ==
LOC: CVS 06:56
PROVIDERS: PCP Family Medicine; Visit Provider Physician Assistant Medical
DX: R06.00 Dyspnea, unspecified (principal)
CPT/HCPCS: 78452; 93017; A9500; A4216

== ENCOUNTER → 2022-10-11 | Outpatient (CLI) | payer MEDICARE, OTHER, SELFPAY ==
--- NOTE | 2022-10-11 10:36 | RAD_ITS ---
STUDY: X-RAY CHEST REASON FOR EXAM: Male, 82 years old. Fever and cough TECHNIQUE: PA and 2 lateral views of the chest. COMPARISON: 07/04/2021 FINDINGS: The lungs are clear and expanded. There is no demonstrated pleural abnormality. Normal size heart. Normal mediastinum and luke. Normal visualized pulmonary arteries. Normal visualized aortic arch and descending thoracic aorta. There are diffuse degenerative changes of the visualized thoracic spine. There is degenerative osteoarthritis of the bilateral shoulders. There is no demonstrated abnormality of the visualized soft tissue structures of the upper abdomen. RAD/Chest PA and Lateral IMPRESSION: No acute pulmonary process Electronically Signed: Talon Betts MD at 15:44 EDT ,
[2022-10-11 11:41] LABS: Hematocrit 39.2 % (40-54); Hemoglobin 12.6 g/dL (13.0-16.5); Mean Corp Hgb Conc 32.1 g/dL (32-36); Mean Corpuscular Hgb 31.3 pg (27.0-32.0); Mean Corpuscular Volume 97.3 fL (80-94); Mean Platelet Vol. 9.8 fl (6.2-12.0); Platelet Count 414 K/mm3 (150-450); RBC Distribution Width CV 13.1 % (11.6-14.6); RBC Distribution Width SD 47.3 fl (35.1-43.9); Red Blood Count 4.03 M/mm3 (4.6-6.2); White Blood Count 8.5 K/mm3 (4.4-11.0)
[2022-10-11 12:09] LABS: BNP,B-Type NATRIURETIC PEPTIDE 28.6 pg/mL (0-100)
[2022-10-11 12:41] LABS: Anion Gap 7 (5-15); BUN 16 mg/dL (7-18); BUN/Creat Ratio 13.2 RATIO (10-20); Calcium,Total 9.2 mg/dL (8.5-10.1); Chloride 102 mmol/L (98-107); Creatinine, Serum 1.21 mg/dL (0.70-1.30); EST Glomerular Filtration Rate 61 mL/min (>60); Est Glom Filt Rate - Afr Amer 74 mL/min (>60); Glucose 147 mg/dL (74-106); Sodium Level 135 mmol/L (136-145)
== END | disposition home or self-care (01) ==
LOC: LAB 10:25
PROVIDERS: PCP Family Medicine; Referring Provider Physician Assistant Medical; Visit Provider Physician Assistant Medical
DX: R06.09 Other forms of dyspnea (principal); I27.20 Pulmonary hypertension, unspecified; I25.10 Atherosclerotic heart disease of native coronary artery without angina pectoris; Z95.5 Presence of coronary angioplasty implant and graft; Z86.2 Personal history of diseases of the blood and blood-forming organs and certain disorders involving the immune mechanism; R19.5 Other fecal abnormalities
CPT/HCPCS: 36415; 71046; 80048; 83880; 85027

== ENCOUNTER → 2022-11-09 | Outpatient (CLI) | payer MEDICARE, OTHER, SELFPAY ==
--- NOTE | 2022-11-09 09:15 | MRI_ITS ---
STUDY: MRI LUMBAR SPINE WITHOUT CONTRAST REASON FOR EXAM: Male, 82 years old patient with lumbar arthropathy TECHNIQUE: Standardized fat and water weighted pulse sequences were obtained in the sagittal and axial planes. COMPARISON: Radiographs of the lumbar spine dated January 26, 2020. FINDINGS: Normal lumbar lordosis. There is no substantial scoliosis. Normal conus medullaris that terminates at the L1 level. T12-L1: Normal endplates. Normal disc height, signal and morphology. Normal bilateral facet joints. Normal central canal and bilateral lateral recesses. Normal bilateral intervertebral neural foramina. L1-2: There is annular disk bulge and osteophyte complex. There is moderately severe degenerative arthropathy of the facet joints. Bilateral neuroforamina are narrowed without MR evidence for nerve impingement. There is no acquired central canal stenosis. L2-3: There is moderately large annular disk bulge and osteophyte complex. There is mild degenerative arthropathy of the facet joints. Bilateral neuroforamina are narrowed with MR evidence for potential left-sided L2 nerve impingement. There is mild acquired central canal stenosis superimposed upon congenitally small spinal canal. L3-4: There is mild annular disk bulge and osteophyte complex. There is mild degenerative arthropathy of the facet joints. Bilateral neuroforamina are narrowed with MR evidence for potential right-sided L3 nerve impingement. There is no mild acquired central canal stenosis superimposed upon congenitally small spinal canal. L4-5: There is a broad right central venous protrusion. There is moderately severe degenerative arthropathy of the facet joints. There is moderately severe central acquired canal stenosis. There is potential impingement of the L5 nerve roots at the lateral recesses. Neural foramina are moderately narrowed without evidence of the neural foramina. L5-S1: There is a broad central disc protrusion. There is moderately severe degenerative arthropathy of the facet joints. There is mild central acquired canal stenosis and potential impingement S1 nerve roots of the lateral recesses. Neural foramina are narrowed without definite nerve impingement at the neural foramina. Normal visualized sacral ala. Normal visualized paraspinous soft tissue structures. There is a right-sided renal cyst measuring approximately 2.5 cm. MRI/Spine Lumbar (Routine) IMPRESSION: Moderately severe multilevel degenerative changes of the lumbar spine with neural foraminal narrowing, central canal stenosis and potential nerve impingement, as described. Electronically Signed: Dorita Pantoja MD at 1:13 EDT ,
== END | disposition home or self-care (01) ==
LOC: MRI 08:41
PROVIDERS: PCP Family Medicine; Referring Provider Nurse Practitioner Acute Care; Visit Provider Nurse Practitioner Acute Care
DX: M46.96 Unspecified inflammatory spondylopathy, lumbar region (principal); M51.37 Other intervertebral disc degeneration, lumbosacral region; M54.17 Radiculopathy, lumbosacral region; M47.817 Spondylosis without myelopathy or radiculopathy, lumbosacral region; M48.07 Spinal stenosis, lumbosacral region
CPT/HCPCS: 72148

== ENCOUNTER 2023-02-24 08:08 | Emergency (ER) | payer MEDICARE, OTHER, SELFPAY ==
[2023-02-24 08:09] VITALS: BP 171/80; PULSE 62; RESP 18; TEMP 36.4; O2SAT 99; BMI 29.7
--- NOTE | 2023-02-24 08:43 | CT_ITS ---
STUDY: CT BRAIN WITHOUT CONTRAST REASON FOR EXAM: Male, 82 years old. Head injury on anticoagulation RADIATION DOSAGE (If Supplied By Facility): CTDIvol = ( 44.99 ) mGy, DLP = ( 880.47 ) mGycm TECHNIQUE: Transaxial CT imaging of the brain was performed without administration of intravenous contrast material. Individualized dose optimization techniques were used for this CT. COMPARISON: Comparison is made with prior study dated November 12, 2019. FINDINGS: Normal soft tissue structures. Normal calvarium. There is mild cerebral atrophy with widening of the extra-axial spaces and ventricular dilatation. There are areas of decreased attenuation within the white matter tracts of the supratentorial brain, consistent with microvascular disease changes. Tiny old lacunar infarcts in the basal ganglia bilaterally. Normal brainstem. Normal cerebellum. There is no intracranial hemorrhage. There are no findings of an acute ischemic infarction. Mucosal thickening at the base of the left maxillary sinus. CT/Brain/Head without Contrast IMPRESSION: Chronic involutional changes of the brain. Old lacunar infarcts in the basal ganglia bilaterally. Electronically Signed: Cb Vaughn MD at 9:12 EDT ,
--- NOTE | 2023-02-24 08:43 | CT_ITS ---
STUDY: CT LUMBAR SPINE WITHOUT CONTRAST REASON FOR EXAM: Male, 82 years old. Pain status post fall/recent laminectomy RADIATION DOSAGE (If Supplied By Facility): CTDIvol = ( 38.79 ) mGy, DLP = ( 1408.24 ) mGycm TECHNIQUE: The patient was scanned in a multi detector CT scanner. High resolution transaxial imaging was performed. Images were obtained from L1 to S1 level. Sagittal and coronal images were reconstructed. Individualized dose optimization techniques were used for this CT. COMPARISON: None FINDINGS: Normal lumbar lordosis. There is no substantial scoliosis. Spondylosis. L1-2: Anterior spondylosis. Mild degree of facet joint osteoarthritis. Mild degree of bilateral neural foraminal stenosis. L2-3: Anterior spondylosis. Mild degree of diffuse posterior disc bulge. The patient is status post laminectomy. Bilateral neural foraminal stenosis. L3-4: Status post posterior laminectomy. Facet joint osteoarthritis and hypertrophy. Bilateral neural foraminal stenosis. L4-5: Facet joint osteoarthritis and hypertrophy. Spondylosis. Bilateral no foraminal stenosis. L5-S1: Normal endplates. Normal disc height and morphology. Normal bilateral facet joints. Normal central canal and bilateral lateral recesses. Normal bilateral intervertebral neural foramina. Postoperative soft tissue changes are seen in the overlying subcutaneous tissues. CT/Spine Lumbar without Contrast IMPRESSION: Status post multilevel laminectomy without evidence of spinal stenosis. Multilevel neural foraminal stenosis. Electronically Signed: Cb Vaughn MD at 9:38 EDT ,
--- NOTE | 2023-02-24 08:45 | ED.VIS.FALL ---
HPI HPI - Fall History of Present Illness Chief Complaint: Fall Narrative Narrative: 82-year-old male presents via EMS status post fall at around 630 this morning, approximately 2 hours ago. Of significance, on , he had laminectomy and lumbar surgery by Dr. Mcgowan at the [facility]. He had stopped his Plavix for coronary artery disease and stroke but restarted the following Monday. His called EMS because he had gotten up to go to the bathroom and around 630, and had fallen in the hallway and was leaning up against the wall. She did not hear him moving around, she called out to him, and found himself in a seated position against the wall. He denies hitting his head or loss of consciousness but complains of low back pain. She also noted that he had an abrasion on his left elbow, which she applied peroxide. She is concerned because he started Plavix again and had fallen, and was complaining of low back pain. Tetanus Immunization: Unknown [facility] Medical History Anxiety Arthritis Atherosclerotic heart disease of [place] coronary artery without angina pectoris Benign prostatic hypertrophy Cardiology follow-up encounter Chest pain Coronary artery disease COVID-19 (~01/18/22) Depression Dizziness and giddiness Dyspnea Easy bruising Enterococcus UTI Essential hypertension Fatigue Former smoker H/O appendicitis History of echocardiogram History of hiatal hernia History of stress test History of tilt table evaluation History of transesophageal echocardiography (VIOLETTE) Indwelling urethral catheter present 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 Low iron Neck pain on left side REHAN (obstructive sleep apnea) Precordial chest pain Presence of stent in coronary artery (~09/08/10) PTSD (post-traumatic stress disorder) Pulmonary hypertension Pure hypercholesterolemia Restless legs syndrome (RLS) Sepsis due to urinary tract infection Shortness of breath Syncope and collapse Walker as ambulation aid Wears glasses Wears hearing aid Home Medications fluoxetine 40 mg capsule (Prozac) 40 mg PO DAILY 07/04/18 [History Last Taken 07/13/21] acetaminophen 500 mg tablet (Tylenol Extra Strength) 500 mg PO Q6H PRN Pain 06/17/20 [History Last Taken 07/13/21] propranolol 20 mg tablet 20 mg PO BID #180 tabs 02/23/21 [Rx Last Taken 07/14/21] amlodipine 5 mg tablet 5 mg PO BID 03/17/21 [History Last Taken 07/14/21] multivitamin 1 tab PO DAILY 02/08/22 [History Last Taken Unknown] tizanidine 4 mg capsule 4 mg PO BID PRN 02/08/22 [History Last Taken Unknown] lisinopril 10 mg tablet 10 mg PO BID #180 tabs 02/25/22 [Rx Last Taken Unknown] clopidogrel 75 mg tablet 75 mg PO DAILY 05/05/22 [History Last Taken Unknown] nitroglycerin 0.4 mg sublingual tablet 0.4 mg sublingual Q5-15M PRN chest pain #25 tabs 05/26/22 [Rx Last Taken Unknown] rosuvastatin 10 mg tablet 10 mg PO QHS #90 tabs 11/24/22 [Rx Last Taken Unknown] Allergy/AdvReac Type Severity Reaction Status Date / Time hydrocodone [From Vicodin] Allergy Other Verified 02/24/23 08:17 orphenadrine Allergy Unknown Verified 02/24/23 08:17 pregabalin Allergy Swelling Verified 02/24/23 08:17 atorvastatin [From Lipitor] AdvReac Severe Intolerance Verified 02/24/23 08:17 ,Myalgias Family History Father CVA (cerebral vascular accident) Mother Cardiomegaly Brother CAD (coronary artery disease) Hx CABG and valve replacement Diabetes Brother History of heart valve replacement Brother Rheumatic fever Sister Hypertension Aortic aneurysm H/O aortic valve replacement Brother Cancer bladder Brother Thyroid disorder Surgical History H/O heart artery stent History of appendectomy History of colonoscopy History of hydrocelectomy History of right hip replacement History of vasectomy hx cervical stenosis Presence of coronary angioplasty implant and graft (~09/08/10) S/P right knee arthroscopy S/P TURP Social History household members: spouse housing: house Smoking Status: Former smoker pack-years: 20 Tobacco: How many years used: 22 second hand exposure: No alcohol intake: never substance use type: does not use caffeine: Yes Type: carbonated beverages Number of servings: 1 and tea what type of physical activity do you participate in: none seatbelt use: always do you feel safe at home: Yes ROS ROS ED ROS Narrative Constitutional: No fever, no chills. HEENT: No sore throat. No neck pain. No loss of vision. No rhinorrhea. Cardiovascular: No chest pain. No palpitations. No pedal edema. Respiratory: No cough, no shortness of breath. Abdominal: No abdominal pain. No nausea. No vomiting. Genitourinary: No dysuria. No hematuria. Musculoskeletal: No myalgias. Left elbow injury. Positive low back pain status postlaminectomy and now status post fall. Neurologic: No headaches. No dizziness. No lightheadedness. Skin: No rash. No change in color. Abrasion left elbow. Psychiatric: No depression. No anxiety. EXAM Physical Exam Narrative Exam Narrative: Afebrile. Vital signs noted. GCS 15. ABCs intact. HEENT: Normocephalic. Atraumatic. PERRL, EOMI. Neck soft and supple. No point tenderness or step off. Cardiovascular: Regular rate and rhythm. No murmurs, rubs, or gallops appreciated. Respiratory: No tachypnea. Lungs clear to auscultation bilaterally. Gastrointestinal: Abdomen soft, nontender, with normoactive bowel sounds. No rebound or guarding. Neurological: Awake. Alert. Nonfocal, nonlateralizing. Hard of hearing at baseline. Skin: No rash. Normal color. No pallor. Abrasion left elbow. Incision of lumbar spine clean, dry, and intact with deandre, no fluctuance or active bleeding. No purulent drainage. Musculoskeletal: No pedal edema. Full range of motion extremities. Able to raise legs off bed without difficulty. Full range of motion left elbow. Const Vital Signs: 02/24/23 08:09 02/24/23 08:13 Temperature 97.6 F L Temperature Source Temporal Pulse Rate 62 Respiratory Rate 18 Respiratory Effort Normal Blood Pressure 171/80 H Blood Pressure Mean 110 Pulse Ox 99 Oxygen Delivery Method Room Air Room Air MDM MDM MDM Narrative Medical decision making narrative: is concerned about his low back pain given his recent surgery and now after his fall. He appears neurovascular intact distally. I do feel that CT is indicated to help rule out fracture versus postoperative pain. There are no signs of infection currently. I do not feel laboratory work is indicated. I will also obtain a CT of the brain to rule out acute intracranial hemorrhage as he has fallen and is on Plavix. I do not feel CT of the cervical spine is indicated as he has no neck pain and full range of motion of his neck. Although he sustained an abrasion, he has full range of motion of his left elbow but x-rays will be obtained to rule out fracture versus contusion. Was given tetanus immunization. I reviewed the CT reports of the brain and of the lumbar spine. There is no evidence of an acute skull fracture or intracranial hemorrhage. CT of the lumbar spine shows status post multilevel laminectomy without evidence of spinal stenosis and multilevel neuroforaminal stenosis. He was given 500 mg of Tylenol and oxycodone 5 mg orally at his request for analgesia. I interpreted the x-rays of the left elbow independently and see no evidence of acute fracture. I reviewed the radiology report which confirms my independent interpretation. At this point in time, feel that he can be discharged safely home with follow-up. I discussed the patient with the PA for Dr. Mcgowan agrees with outpatient follow-up. I do not feel he requires observation at this time. Return instructions to the emergency department were reviewed. Disposition is discharged home in stable condition. Radiography Diagnostic Testing: Clinical Impression(s) from Imaging Studies Brain CT 02/24/23 08:43 IMPRESSION: Chronic involutional changes of the brain. Old lacunar infarcts in the basal ganglia bilaterally. Electronically Signed: Cb Vaughn MD at 9:12 EDT , Lumbar Spine CT 02/24/23 08:43 IMPRESSION: Status post multilevel laminectomy without evidence of spinal stenosis. Multilevel neural foraminal stenosis. Electronically Signed: Cb Vaughn MD at 9:38 EDT , Elbow X-Ray 02/24/23 09:30 IMPRESSION: Normal x-ray examination of the elbow. Electronically Signed: Cb Vaughn MD at 9:56 EDT , Discharge Plan Triage Chief Complaint: Fall ED Provider: Bob Rodriguez Dx/Rx/DC Orders Clinical Impression: History of lumbar laminectomy, Fall, Abrasion of elbow, left Instructions: Laminectomy Laminotomy Recovery, ED Abrasion, ED Contusion, Elbow, ED Fall with Uncertain Cause Prescriptions: No Action fluoxetine [Prozac] 40 mg capsule 40 mg PO DAILY Hold Instructions: until done with Zyvox Patient Comments: not taking while taking antibiotic linezolid acetaminophen [Tylenol Extra Strength] 500 mg tablet 500 mg PO Q6H PRN (Reason: Pain) tizanidine 4 mg capsule 4 mg PO BID PRN nitroglycerin 0.4 mg tablet, sublingual 0.4 mg SUBLINGUAL Q5-15M PRN (Reason: chest pain) Qty: 25 1RF Rx Instructions: do not exceed 3 doses per episode multivitamin Tablet 1 tab PO DAILY propranolol 20 mg tablet 20 mg PO BID Qty: 180 3RF amlodipine 5 mg tablet 5 mg PO BID lisinopril 10 mg tablet 10 mg PO BID Qty: 180 3RF clopidogrel 75 mg tablet 75 mg PO DAILY rosuvastatin 10 mg tablet 10 mg PO QHS Qty: 90 3RF Primary Care Provider: Harvinder Vaughan Referrals: Dawood Mcgowan MD [Non-Staff] - Keep Marsha appointment Harvinder Vaughan MD [Primary Care Provider] - Activity Restrictions/Additional Instructions: Follow-up with Dr. Mcgowan as scheduled. Continue your pain medications and routines at home. Disposition Disposition: Home, Self Care
[2023-02-24] MEDS: Diphth,Pertuss(Acell),Tet Vac 0.5 ML Vial IM (09:12)
--- NOTE | 2023-02-24 09:30 | RAD_ITS ---
STUDY: X-RAY - LEFT ELBOW REASON FOR EXAM: Male, 82 years old. Pain following injury. TECHNIQUE: 3 view(s) of the elbow. COMPARISON: None. FINDINGS: Normal visualized humerus, radius and ulna. Normal radiocapitellar and ulnotrochlear articulations. The soft tissue structures are unremarkable. RAD/Elbow min 3 Views IMPRESSION: Normal x-ray examination of the elbow. Electronically Signed: Cb Vaughn MD at 9:56 EDT ,
[2023-02-24] MEDS: oxyCODONE 5 MG Tablet PO (10:02)
[2023-02-24] MEDS: Acetaminophen 500 MG Tablet PO (10:03)
== END 2023-02-24 11:04 | disposition home or self-care (01) ==
PROVIDERS: Emergency Provider Emergency Medicine; PCP Family Medicine; Visit Provider Emergency Medicine
DX: S50.312A Abrasion of left elbow, initial encounter (principal); I25.10 Atherosclerotic heart disease of native coronary artery without angina pectoris; E78.00 Pure hypercholesterolemia, unspecified; I10 Essential (primary) hypertension; Z86.73 Personal history of transient ischemic attack (TIA), and cerebral infarction without residual deficits; Z79.02 Long term (current) use of antithrombotics/antiplatelets; W19.XXXA Unspecified fall, initial encounter; Y92.89 Other specified places as the place of occurrence of the external cause; F32.A Depression, unspecified; Z79.899 Other long term (current) drug therapy; Z95.5 Presence of coronary angioplasty implant and graft; Z90.49 Acquired absence of other specified parts of digestive tract; Z96.641 Presence of right artificial hip joint; Z98.52 Vasectomy status; Z87.891 Personal history of nicotine dependence; Z23 Encounter for immunization; Z87.898 Personal history of other specified conditions
CPT/HCPCS: 70450; 72131; 73080; 90715; 99285

== ENCOUNTER 2023-03-13 11:44 | Emergency (ER) | payer MEDICARE, OTHER, SELFPAY ==
[2023-03-13 11:45] VITALS: BP 135/113; PULSE 63; RESP 18; TEMP 36.4; O2SAT 96
--- NOTE | 2023-03-13 12:00 | RAD_ITS ---
STUDY: X-RAY - LUMBAR SPINE REASON FOR EXAM: Male, 82 years old. Low back pain TECHNIQUE: 5 view(s) of the lumbar spine were obtained. COMPARISON: 01/26/2020 FINDINGS: Normal lumbar lordosis. There is no substantial scoliosis. There is a normal alignment of the vertebrae. There is been a previous laminectomy from L3 to S1 There is multilevel endplate spondylosis of the lumbar vertebrae. There is multi-level degenerative disc disease with multi-level disc space narrowing. There is no demonstrated fracture. There is atherosclerotic calcification of the abdominal aorta without a demonstrated aneurysm. RAD/L/S Spine Min 4 Views IMPRESSION: Degenerative changes of the spine, as detailed above. Electronically Signed: Talon Betts MD at 12:37 EDT ,
--- NOTE | 2023-03-13 12:00 | RAD_ITS ---
STUDY: X-RAY - LEFT KNEE REASON FOR EXAM: Male, 82 years old. Fall TECHNIQUE: 4 view(s) of the knee. COMPARISON: None. FINDINGS: Normal visualized distal femur. Normal visualized proximal tibia and fibula. Normal proximal tibiofibular articulation. There is mild degenerative arthrosis of the medial femorotibial compartment. There is mild degenerative arthrosis of the lateral femorotibial compartment. There is mild degenerative arthrosis of the patellofemoral articulation. The soft tissue structures are unremarkable. RAD/Knee 4 or More Views IMPRESSION: Mild arthrosis Electronically Signed: Talon Betts MD at 12:37 EDT ,
--- NOTE | 2023-03-13 12:03 | EDS_ITS ---
HPI <LYN Campbell - Last Filed: 03/13/23 14:01> History of Present Illness Chief Complaint: Fall Narrative Narrative: Patient is an 82-year-old male with history of type 2 diabetes, hyperlipidemia, PTSD, history of chronic back pain with back surgery the end of January 2023 who presents the emergency department after mechanical fall. Patient gets around by walker, he has to get up a step when he leaves the bathroom, he then got his walker caught, falling to his left side. Patient denies any head or neck injury. This happened approximately at 8 AM this morning. He then went back to bed. He got up ambulated to the living room and was given breakfast. Secondary to continued pain to his back, as well as to his left leg especially his knee, his family member decided to bring him in for evaluation. PFSH <LYN Campbell - Last Filed: 03/13/23 14:01> [facility] Medical History Anxiety Arthritis Atherosclerotic heart disease of [place] coronary artery without angina pectoris Benign prostatic hypertrophy Cardiology follow-up encounter Chest pain Coronary artery disease COVID-19 (~01/18/22) Depression Dizziness and giddiness Dyspnea Easy bruising Enterococcus UTI Essential hypertension Fatigue Former smoker H/O appendicitis History of echocardiogram History of hiatal hernia History of stress test History of tilt table evaluation History of transesophageal echocardiography (VIOLETTE) Indwelling urethral catheter present 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 [facility] use of drug Low iron Neck pain on left side REHAN (obstructive sleep apnea) Precordial chest pain Presence of stent in coronary artery (~09/08/10) PTSD (post-traumatic stress disorder) Pulmonary hypertension Pure hypercholesterolemia Restless legs syndrome (RLS) Sepsis due to urinary tract infection Shortness of breath Syncope and collapse Walker as ambulation aid Wears glasses Wears hearing aid Home Medications fluoxetine 40 mg capsule (Prozac) 40 mg PO DAILY 07/04/18 [History Last Taken 07/13/21] acetaminophen 500 mg tablet (Tylenol Extra Strength) 500 mg PO Q6H PRN Pain 06/17/20 [History Last Taken 07/13/21] propranolol 20 mg tablet 20 mg PO BID #180 tabs 02/23/21 [Rx Last Taken 07/14/21] amlodipine 5 mg tablet 5 mg PO BID 03/17/21 [History Last Taken 07/14/21] multivitamin 1 tab PO DAILY 02/08/22 [History Last Taken Unknown] tizanidine 4 mg capsule 4 mg PO BID PRN 02/08/22 [History Last Taken Unknown] clopidogrel 75 mg tablet 75 mg PO DAILY 05/05/22 [History Last Taken Unknown] nitroglycerin 0.4 mg sublingual tablet 0.4 mg sublingual Q5-15M PRN chest pain #25 tabs 05/26/22 [Rx Last Taken Unknown] rosuvastatin 10 mg tablet 10 mg PO QHS #90 tabs 11/24/22 [Rx Last Taken Unknown] lisinopril 10 mg tablet See Rx Instructions .Route .COMPLEX #180 tabs 03/02/23 [Rx Last Taken Unknown] Allergy/AdvReac Type Severity Reaction Status Date / Time hydrocodone [From Vicodin] Allergy Other Verified 03/13/23 11:45 orphenadrine Allergy Unknown Verified 03/13/23 11:45 pregabalin Allergy Swelling Verified 03/13/23 11:45 atorvastatin [From Lipitor] AdvReac Severe Intolerance Verified 03/13/23 11:45 ,Myalgias Family History Father CVA (cerebral vascular accident) Mother Cardiomegaly Brother CAD (coronary artery disease) Hx CABG and valve replacement Diabetes Brother History of heart valve replacement Brother Rheumatic fever Sister Hypertension Aortic aneurysm H/O aortic valve replacement Brother Cancer bladder Brother Thyroid disorder Surgical History H/O heart artery stent History of appendectomy History of colonoscopy History of hydrocelectomy History of right hip replacement History of vasectomy hx cervical stenosis Presence of coronary angioplasty implant and graft (~09/08/10) S/P right knee arthroscopy S/P TURP Social History household members: spouse housing: house Smoking Status: Former smoker pack-years: 20 Tobacco: How many years used: 22 second hand exposure: No alcohol intake: never substance use type: does not use caffeine: Yes Type: carbonated beverages Number of servings: 1 and tea what type of physical activity do you participate in: none seatbelt use: always do you feel safe at home: Yes ROS <LYN Campbell - Last Filed: 03/13/23 14:01> ROS ED ROS Narrative Constitutional: Negative for fever, chills, weight loss, weakness Eyes: Negative for vision loss, vision change, double vision ENT: Negative for any sore throat, ear pain, congestion Cardiovascular: Negative for any chest pain, tightness, palpitations Respiratory: Negative for any cough, sputum production, hemoptysis, dyspnea, dyspnea on exertion, orthopnea Gastrointestinal: Negative for any abdominal pain, nausea, vomiting, diarrhea, constipation, blood in stool, blood in vomit : Negative for any urinary frequency, dysuria, retention, blood in urine Muscle skeletal: Negative for any muscle joint pain, stiffness, myalgias, arthralgias, neck pain. Positive for left knee pain, lower back pain Neurological: Negative for any headache, syncope, numbness or tingling, dizziness Skin: Negative for any rashes, lumps, itching, abrasions, lacerations Psychiatric: Negative for any depression, anxiety, stress, suicidal ideation, homicidal ideation Hematologic: Negative for any easy bruising, excessive bruising, easy bleeding Allergies: Negative for any eczema, hives, rash EXAM <LYN Campbell - Last Filed: 03/13/23 14:01> Physical Exam Narrative Exam Narrative: Vital signs reviewed. HEET: Head normocephalic atraumatic, TMs clear bilaterally. Posterior pharynx is clear, moist mucous membranes. Nares clear bilaterally. Neck: Supple with no lymphadenopathy or tenderness. No signs of meningismus, negative jolt sign. Cardiac: Regular rate and rhythm no murmurs gallops or rubs, equal peripheral pulses bilaterally. Respiratory: Lungs clear to auscultation bilaterally. No chest tenderness. Abdomen: Soft, nontender, nondistended. No abdominal bruit or pulsatile masses. No hepatosplenomegaly Extremities: No peripheral edema, no signs of gross trauma or deformity. Active full range of motion of all extremities. Patient does have slight swelling to the knee. Intact extensor mechanism. Patient is able to flex Left hip. There is no hip pain. Neuro: Cranial nerves II through XII intact, no focal neurological deficits. Skin: Clean dry and intact with no rash, purpura, petechiae, vesicles or pustules. Backs/flank: No CVA tenderness, no midline spinal tenderness, no deformity. Patient does have an incision from his back surgery to the lumbar spine. This appears well. Patient has minimal tenderness. There is no step-off deformity. Is no redness, ecchymosis, edema, signs of trauma. Vascular intact. Psych: Normal mood and affect. No SI, HI or acute psychosis. Const Vital Signs: 03/13/23 11:45 03/13/23 12:33 03/13/23 13:03 Temperature 97.6 F L Temperature Source Temporal Pulse Rate 63 Respiratory Rate 18 Respiratory Effort Normal Respiratory Depth Normal Respiratory Pattern Normal Blood Pressure 135/113 H Blood Pressure Mean 120 Pulse Ox 96 98 Oxygen Delivery Method Room Air Room Air Room Air 03/13/23 13:45 03/13/23 14:09 Temperature Temperature Source Pulse Rate 51 L 51 L Respiratory Rate 16 16 Respiratory Effort Respiratory Depth Respiratory Pattern Blood Pressure 121/74 H 163/72 H Blood Pressure Mean 89 102 Pulse Ox 99 95 Oxygen Delivery Method Room Air <Dr. Claire Hines DO - Last Filed: 03/13/23 17:20> Physical Exam Const Vital Signs: 03/13/23 11:45 03/13/23 12:33 03/13/23 13:03 Temperature 97.6 F L Temperature Source Temporal Pulse Rate 63 Respiratory Rate 18 Respiratory Effort Normal Respiratory Depth Normal Respiratory Pattern Normal Blood Pressure 135/113 H Blood Pressure Mean 120 Pulse Ox 96 98 Oxygen Delivery Method Room Air Room Air Room Air 03/13/23 13:45 03/13/23 14:09 Temperature Temperature Source Pulse Rate 51 L 51 L Respiratory Rate 16 16 Respiratory Effort Respiratory Depth Respiratory Pattern Blood Pressure 121/74 H 163/72 H Blood Pressure Mean 89 102 Pulse Ox 99 95 Oxygen Delivery Method Room Air [facility] <LYN Campbell - Last Filed: 03/13/23 14:01> [facility] Lab Data Labs: Laboratory Results - last 24 hr 03/13/23 12:59 WBC 10.6 RBC 3.53 L Hgb 11.0 L Hct 34.2 L MCV 96.9 H MCH 31.2 MCHC 32.2 RDW Std Deviation 46.8 H RDW Coeff of Guido 13.2 Plt Count 423 MPV 9.4 Immature Gran % (Auto) 0.600 Neut % (Auto) 74.8 H Lymph % (Auto) 11.8 L [place] % (Auto) 9.3 Eos % (Auto) 2.7 Baso % (Auto) 0.8 Absolute Neuts (auto) 7.9 H Absolute Lymphs (auto) 1.25 Nucleated RBC % 0 Sodium 136 Potassium 4.4 Chloride 104 Carbon Dioxide 27.0 Anion Gap 5 BUN 14 Creatinine 1.00 Est GFR (MDRD) Af Amer 92 Est GFR (MDRD) Non-Af 76 BUN/Creatinine Ratio 14.0 Glucose 98 Calcium 8.8 Total Bilirubin 0.40 AST 17 ALT 22 Alkaline Phosphatase 106 Troponin I High Sens 6 Total Protein 7.0 Albumin 3.2 Globulin 3.8 Albumin/Globulin Ratio 0.8 L Lipase 33 Radiography Diagnostic Testing: Clinical Impression(s) from Imaging Studies Knee X-Ray 03/13/23 12:00 IMPRESSION: Mild arthrosis Electronically Signed: Talon Betts MD at 12:37 EDT , Lumbar Spine X-Ray 03/13/23 12:00 IMPRESSION: Degenerative changes of the spine, as detailed above. Electronically Signed: Talon Betts MD at 12:37 EDT , Chest X-Ray 03/13/23 13:25 IMPRESSION: No acute process Electronically Signed: Kehinde Schaffer MD at 14:00 EDT , EKG Sinus bradycardia: Attestation: I personally reviewed and interpreted this EKG as follows: Interpretation: Sinus Rhythm and Sinus Bradycardia Comments: Sinus bradycardia, rate of 54 bpm, [place] 192 ms, QRS duration 90 ms, no acute ST elevation, no acute infarct noted. Treatment and Re-Evaluation :: Patient appears generally well, patient appears nontoxic, vital signs are stable. Presenting to the emergency department after mechanical fall that happened approximately 8 AM this morning. Discussing the fall with the patient as well as the physical examination, as this does seem like a minor fall. Patient did not sustain any significant injury. However patient does have pain in the left knee, as well as the lower back. Patient received x-rays of the left knee concerning for any fracture, effusion. Patient's x-ray of the lower lumbar spine secondary to the history of back surgery. Concerning for a lumbar fracture, lumbar strain. Patient on reevaluation also complains of chest pain, patient will receive a chest pain work-up as well. Patient's x-rays of the left knee showed mild arthrosis, no acute process. X-ray of the lumbar spine showed degenerative change of the spine, no acute abnormality. Patient's, different knee or hip pain, syncope CBC shows slight anemia however this is baseline for the patient. Chemistries were unremarkable, patient's troponin was negative. There is no evidence of any ACS or AR. At this time, patient stable for discharge, he will continue to follow-up outpatient. All questions are answered, patient stable for discharge <Dr. Claire Hines, DO - Last Filed: 03/13/23 17:20> [facility] Lab Data Labs: Laboratory Results - last 24 hr 03/13/23 12:59 WBC 10.6 RBC 3.53 L Hgb 11.0 L Hct 34.2 L MCV 96.9 H MCH 31.2 MCHC 32.2 RDW Std Deviation 46.8 H RDW Coeff of Guido 13.2 Plt Count 423 MPV 9.4 Immature Gran % (Auto) 0.600 Neut % (Auto) 74.8 H Lymph % (Auto) 11.8 L [place] % (Auto) 9.3 Eos % (Auto) 2.7 Baso % (Auto) 0.8 Absolute Neuts (auto) 7.9 H Absolute Lymphs (auto) 1.25 Nucleated RBC % 0 Sodium 136 Potassium 4.4 Chloride 104 Carbon Dioxide 27.0 Anion Gap 5 BUN 14 Creatinine 1.00 Est GFR (MDRD) Af Amer 92 Est GFR (MDRD) Non-Af 76 BUN/Creatinine Ratio 14.0 Glucose 98 Calcium 8.8 Total Bilirubin 0.40 AST 17 ALT 22 Alkaline Phosphatase 106 Troponin I High Sens 6 Total Protein 7.0 Albumin 3.2 Globulin 3.8 Albumin/Globulin Ratio 0.8 L Lipase 33 Radiography Diagnostic Testing: Clinical Impression(s) from Imaging Studies Knee X-Ray 03/13/23 12:00 IMPRESSION: Mild arthrosis Electronically Signed: Talon Betts MD at 12:37 EDT , Lumbar Spine X-Ray 03/13/23 12:00 IMPRESSION: Degenerative changes of the spine, as detailed above. Electronically Signed: Talon Betts MD at 12:37 EDT , Chest X-Ray 03/13/23 13:25 IMPRESSION: No acute process Electronically Signed: Kehinde Schaffer MD at 14:00 EDT , Treatment and Re-Evaluation :: Patient appears generally well, patient appears nontoxic, vital signs are stable. Presenting to the emergency department after mechanical fall that happened approximately 8 AM this morning. Discussing the fall with the patient as well as the physical examination, as this does seem like a minor fall. Patient did not sustain any significant injury. However patient does have pain in the left knee, as well as the lower back. Patient received x-rays of the left knee concerning for any fracture, effusion. Patient's x-ray of the lower lumbar spine secondary to the history of back surgery. Concerning for a lumbar fracture, lumbar strain. Patient on reevaluation also complains of chest pain, patient will receive a chest pain work-up as well. Patient's x-rays of the left knee showed mild arthrosis, no acute process. X-ray of the lumbar spine showed degenerative change of the spine, no acute abnormality. Patient's, different knee or hip pain, syncope CBC shows slight anemia however this is baseline for the patient. Chemistries were unremarkable, patient's troponin was negative. There is no evidence of any ACS or AR. At this time, patient stable for discharge, he will continue to follow-up outpatient. All questions are answered, patient stable for discharge I have personally performed a face to face assessment of the patient and have reviewed the TOMAS Note. I performed a substantive portion of the visit including all aspects of the following. My henderson findings include: History is patient is 82-year-old male initially evaluated for muscle skeletal pain associate with mechanical fall that occurred this morning. He has had some weakness of his left knee since recent back surgery last month. He just started physical therapy at his first appointment last week. Later on in the ER he does report that he had an episode of epigastric discomfort 2 days ago that radiate up into his chest and his neck. He had not told his about the radiation into his chest until just now. Because of this, his age and cardiac risk factors cardiac work-up is also performed. This is largely negative. Images of the spine, left knee and chest do not show any acute process. Single high sensitive troponin is normal which I feel like is sufficient to rule out ACS given his one-time episode of symptoms 2 days ago. He does not have any acute laboratory normalities. The cause of this episode is not clear however at this time I do think it is fine for him to follow-up outpatient. Patient and verbalized agreement understand this plan. Other additions or changes: [None] Discharge Plan Triage Chief Complaint: Fall ED Midlevel Provider: Flip Gann ED Provider: Claire Hines Dx/Rx/DC Orders Clinical Impression: Knee sprain, Lumbar back pain, Fall, Acute epigastric pain Instructions: ED Back Pain (Acute or Chronic), ED Knee Sprain Prescriptions: No Action fluoxetine [Prozac] 40 mg capsule 40 mg PO DAILY Hold Instructions: until done with Zyvox Patient Comments: not taking while taking antibiotic linezolid acetaminophen [Tylenol Extra Strength] 500 mg tablet 500 mg PO Q6H PRN (Reason: Pain) tizanidine 4 mg capsule 4 mg PO BID PRN nitroglycerin 0.4 mg tablet, sublingual 0.4 mg SUBLINGUAL Q5-15M PRN (Reason: chest pain) Qty: 25 1RF Rx Instructions: do not exceed 3 doses per episode multivitamin Tablet 1 tab PO DAILY propranolol 20 mg tablet 20 mg PO BID Qty: 180 3RF amlodipine 5 mg tablet 5 mg PO BID clopidogrel 75 mg tablet 75 mg PO DAILY rosuvastatin 10 mg tablet 10 mg PO QHS Qty: 90 3RF lisinopril 10 mg tablet See Rx Instructions .ROUTE .COMPLEX Qty: 180 3RF Dose Instruction: TAKE 1 TABLET BY MOUTH TWICE A DAY Rx Instructions: TAKE 1 TABLET BY MOUTH TWICE A DAY Primary Care Provider: Harvinder Vaughan Referrals: Harvinder Vaughan MD [Primary Care Provider] - Activity Restrictions/Additional Instructions: Please follow-up outpatient. Disposition Disposition: Home, Self Care Discharge Date/Time: 03/13/23 14:23
[2023-03-13 12:33] VITALS: O2SAT 98
[2023-03-13 13:11] LABS: Absolute Lymphocyte Count 1.25 X10^3/uL (0.83-4.51); Absolute Neutrophil Count 7.9 X10^3/uL (2.0-7.7); Basophil# 0.09 X10^3/uL; Basophil% 0.8 % (0-1); Eosinophil# 0.29 X10^3/uL; Eosinophils% 2.7 % (0-5); Hematocrit 34.2 % (40-54); Lymphocyte # 1.25 X10^3/ul (0.83-4.51); Lymphocyte % 11.8 % (19-41); Mean Corp Hgb Conc 32.2 g/dL (32-36); Mean Corpuscular Hgb 31.2 pg (27.0-32.0); Mean Corpuscular Volume 96.9 fL (80-94); Mean Platelet Vol. 9.4 fl (6.2-12.0); Monocyte# 0.99 X10^3/uL; Monocyte% 9.3 % (0-10); NRBC Flagged by Analyzer 0 % (0-5); Neutrophil # 7.93 X10^3/uL (2.7-7.7); Neutrophil % 74.8 % (47-70); Platelet Count 423 K/mm3 (150-450); RBC Distribution Width CV 13.2 % (11.6-14.6); RBC Distribution Width SD 46.8 fl (35.1-43.9); Red Blood Count 3.53 M/mm3 (4.6-6.2); White Blood Count 10.6 K/mm3 (4.4-11.0)
[2023-03-13] MEDS: Aspirin 81 MG TAB.CHEW 324 MG PO (13:15)
--- NOTE | 2023-03-13 13:25 | RAD_ITS ---
STUDY: X-RAY CHEST REASON FOR EXAM: Male, 82 years old. chest pain TECHNIQUE: Two AP portable view of the chest. COMPARISON: October 11, 2022 FINDINGS: Mild cystic emphysematous changes redemonstrated. The lungs are clear and expanded. There is no demonstrated pleural abnormality. Normal size heart. Normal mediastinum and luke. Normal visualized pulmonary arteries. Normal visualized aortic arch and descending thoracic aorta. There are diffuse degenerative changes of the visualized thoracic spine. Normal visualized ribs, clavicles, and shoulders. There is no demonstrated abnormality of the visualized soft tissue structures of the upper abdomen. RAD/Chest 1 View (Portable) IMPRESSION: No acute process Electronically Signed: Kehinde Schaffer MD at 14:00 EDT ,
[2023-03-13 13:31] LABS: ALB/GLOB Ratio 0.8 RATIO (0.9-2.4); AST(SGOT) 17 U/L (15-37); Alanine Aminotransfer ALT/SGPT 22 U/L (16-61); Albumin, Serum 3.2 g/dL (3.2-5.0); Alkaline Phosphatase 106 U/L (45-117); Anion Gap 5 (5-15); BUN 14 mg/dL (7-18); Calcium,Total 8.8 mg/dL (8.5-10.1); Chloride 104 mmol/L (98-107); EST Glomerular Filtration Rate 76 mL/min (>60); Est Glom Filt Rate - Afr Amer 92 mL/min (>60); Globulin 3.8 g/dL (2.2-4.2); Glucose 98 mg/dL (74-106); Lipase 33 U/L (13-75); Potassium 4.4 mmol/L (3.5-5.1); Sodium Level 136 mmol/L (136-145); Troponin-I HS 6 pg/mL (3.0-78.0)
[2023-03-13 13:45] VITALS: BP 121/74; PULSE 51; RESP 16; O2SAT 99
[2023-03-13 14:09] VITALS: BP 163/72; PULSE 51; RESP 16; O2SAT 95
== END 2023-03-13 14:23 | disposition home or self-care (01) ==
PROVIDERS: Emergency Provider Emergency Medicine; PCP Family Medicine; Visit Provider Emergency Medicine
DX: S83.90XA Sprain of unspecified site of unspecified knee, initial encounter (principal); E11.9 Type 2 diabetes mellitus without complications; M54.50 Low back pain, unspecified; E78.5 Hyperlipidemia, unspecified; R10.13 Epigastric pain; I25.10 Atherosclerotic heart disease of native coronary artery without angina pectoris; Z87.891 Personal history of nicotine dependence; I10 Essential (primary) hypertension; W19.XXXA Unspecified fall, initial encounter; G47.33 Obstructive sleep apnea (adult) (pediatric); Z95.5 Presence of coronary angioplasty implant and graft; Z86.16 Personal history of COVID-19; G89.29 Other chronic pain
CPT/HCPCS: 71045; 72110; 73564; 80053; 83690; 84484; 85025; 93005; 99284; A4216

== ENCOUNTER 2023-04-16 11:13 | Inpatient (IN) | payer MEDICARE, OTHER, SELFPAY ==
[2023-04-16] VITALS (10 sets, daily range): BP systolic 146–176; BP diastolic 56–95; PULSE 53–64; RESP 13–19; TEMP 36.4–36.9; O2SAT 95–99; BMI 27.6; BMI 26.9
--- NOTE | 2023-04-16 11:26 | EKG12_ITS ---
Test Reason : CP Blood Pressure : / mmHG Vent. Rate : 063 BPM Atrial Rate : 063 BPM P-R Int : 184 ms QRS Dur : 088 ms QT Int : 402 ms P-R-T Axes : 057 001 046 degrees QTc Int : 411 ms Normal sinus rhythm Normal ECG Confirmed by WALDEMAR FUNEZ, SHIRLEY ([id number]), desk editor NARAYAN ERAZO ([id number]) on 04/17/2023 12:14:15 PM Referred By: Confirmed By:SHIRLEY MEDEIROS MD
[2023-04-16] MEDS: Aspirin 81 MG TAB.CHEW 324 MG PO (11:34)
[2023-04-16 11:35] LABS: Absolute Lymphocyte Count 1.01 X10^3/uL (0.83-4.51); Absolute Neutrophil Count 5.7 X10^3/uL (2.0-7.7); Basophil# 0.08 X10^3/uL; Basophil% 1.1 % (0-1); Eosinophil# 0.23 X10^3/uL; Eosinophils% 3.1 % (0-5); Hematocrit 36.2 % (40-54); Hemoglobin 12.1 g/dL (13.0-16.5); Lymphocyte # 1.01 X10^3/ul (0.83-4.51); Lymphocyte % 13.6 % (19-41); Mean Corp Hgb Conc 33.4 g/dL (32-36); Mean Corpuscular Hgb 32.1 pg (27.0-32.0); Mean Platelet Vol. 9.5 fl (6.2-12.0); Monocyte# 0.41 X10^3/uL; Monocyte% 5.5 % (0-10); NRBC Flagged by Analyzer 0 % (0-5); Neutrophil # 5.65 X10^3/uL (2.7-7.7); Neutrophil % 76.4 % (47-70); Platelet Count 365 K/mm3 (150-450); RBC Distribution Width CV 12.8 % (11.6-14.6); Red Blood Count 3.77 M/mm3 (4.6-6.2); White Blood Count 7.4 K/mm3 (4.4-11.0)
--- NOTE | 2023-04-16 11:37 | ED.VIS.CHEST ---
HPI <BRIE Ivey - Last Filed: 04/16/23 14:13> History of Present Illness Chief Complaint: Chest Pain Narrative Narrative: 82-year-old male with past medical history of HTN, HLD, CAD with stent has had intermittent chest pain since 5 PM yesterday. Pain is in the center of his chest and radiates to between his shoulder blades. He states it lasted a couple hours and has no aggravating or alleviating factors. It started at rest. He also feels mildly short of breath and nauseated when it occurs. No vomiting or diaphoresis. No radiation to his arm or jaw. He has no recent fever or cough. No leg pain or swelling. No history of DVT/PE or risk factors. He had 1 stent placed in the circumflex artery in 2010 at [facility]. He had a normal stress test in May [address] Kramer. He is on Plavix daily. PFSH <BRIE Ivey - Last Filed: 04/16/23 14:13> [facility] Medical History Anxiety Arthritis Atherosclerotic heart disease of [place] coronary artery without angina pectoris Benign prostatic hypertrophy Cardiology follow-up encounter Chest pain Coronary artery disease COVID-19 (~01/18/22) Depression Dizziness and giddiness Dyspnea Easy bruising Enterococcus UTI Essential hypertension Fatigue Former smoker H/O appendicitis History of echocardiogram History of hiatal hernia History of stress test History of tilt table evaluation History of transesophageal echocardiography (VIOLETTE) Indwelling urethral catheter present 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 senior care use of drug Low iron Neck pain on left side REHAN (obstructive sleep apnea) Precordial chest pain Presence of stent in coronary artery (~09/08/10) PTSD (post-traumatic stress disorder) Pulmonary hypertension Pure hypercholesterolemia Restless legs syndrome (RLS) Sepsis due to urinary tract infection Shortness of breath Syncope and collapse Walker as ambulation aid Wears glasses Wears hearing aid Home Medications fluoxetine 40 mg capsule (Prozac) 40 mg PO DAILY 07/04/18 [History Last Taken 07/13/21] acetaminophen 500 mg tablet (Tylenol Extra Strength) 500 mg PO Q6H PRN Pain 06/17/20 [History Last Taken 07/13/21] amlodipine 5 mg tablet 5 mg PO BID 03/17/21 [History Last Taken 07/14/21] multivitamin 1 tab PO DAILY 02/08/22 [History Last Taken Unknown] tizanidine 4 mg capsule 4 mg PO BID PRN muscle spasticity 02/08/22 [History Last Taken Unknown] clopidogrel 75 mg tablet 75 mg PO DAILY 05/05/22 [History Last Taken Unknown] nitroglycerin 0.4 mg sublingual tablet 0.4 mg sublingual Q5-15M PRN chest pain #25 tabs 05/26/22 [Rx Last Taken Unknown] rosuvastatin 10 mg tablet 10 mg PO QHS #90 tabs 11/24/22 [Rx Last Taken Unknown] lisinopril 10 mg tablet See Rx Instructions .Route .COMPLEX #180 tabs 03/02/23 [Rx Last Taken Unknown] oxycodone 5 mg tablet 5 mg PO Q6H PRN pain 04/16/23 [History Last Taken Unknown] propranolol 20 mg tablet 30 mg PO BID 04/16/23 [History Last Taken Unknown] Allergy/AdvReac Type Severity Reaction Status Date / Time hydrocodone [From Vicodin] Allergy Other Verified 03/13/23 11:45 orphenadrine Allergy Unknown Verified 03/13/23 11:45 pregabalin Allergy Swelling Verified 03/13/23 11:45 atorvastatin [From Lipitor] AdvReac Severe Intolerance Verified 03/13/23 11:45 ,Myalgias Family History Father CVA (cerebral vascular accident) Mother Cardiomegaly Brother CAD (coronary artery disease) Hx CABG and valve replacement Diabetes Brother History of heart valve replacement Brother Rheumatic fever Sister Hypertension Aortic aneurysm H/O aortic valve replacement Brother Cancer bladder Brother Thyroid disorder Surgical History H/O heart artery stent History of appendectomy History of colonoscopy History of hydrocelectomy History of right hip replacement History of vasectomy hx cervical stenosis Presence of coronary angioplasty implant and graft (~09/08/10) S/P right knee arthroscopy S/P TURP Social History household members: spouse housing: house Smoking Status: Former smoker pack-years: 20 Tobacco: How many years used: 22 second hand exposure: No alcohol intake: never substance use type: does not use caffeine: Yes Type: carbonated beverages Number of servings: 1 and tea what type of physical activity do you participate in: none seatbelt use: always do you feel safe at home: Yes ROS <BRIE Ivey - Last Filed: 04/16/23 14:13> ROS ED ROS Narrative Constitutional: Negative for fever, chills, malaise. CVS: Positive for chest pain. Negative for palpitations, syncope. Respiratory: Positive for shortness of breath. Negative for cough, orthopnea. GI: Negative for abdominal pain, vomiting, diarrhea, melena, hematochezia. Neuro: Negative for headache. EXAM <BRIE Ivey Last Filed: 04/16/23 14:13> Physical Exam Narrative Exam Narrative: CONST: Patient sitting in no acute distress. EYES: Normal inspection. NECK: Normal inspection. RESP: No respiratory distress, CTAB. CVS: Regular rate and rhythm, no murmur, no gallop. ABD: Soft and nontender, no guarding or rebound, nondistended. Back: Normal inspection, no CVA tenderness. SKIN: Color normal, no rash, warm, dry, intact. EXTREMITIES: Normal appearance, no pedal edema. NEURO: Oriented x4. PSYCH: Normal affect. Const Vital Signs: 04/16/23 11:14 04/16/23 11:16 04/16/23 11:29 Temperature 97.7 F L Temperature Source Oral Pulse Rate 64 Respiratory Rate 18 Respiratory Effort Short of Breath Blood Pressure 176/95 H Blood Pressure Mean 122 Pulse Ox 99 98 Oxygen Delivery Method Room Air Room Air 04/16/23 12:13 04/16/23 13:00 04/16/23 14:00 Temperature Temperature Source Pulse Rate 53 L 53 L 56 L Respiratory Rate 16 16 16 Respiratory Effort Blood Pressure 153/69 H 153/69 H 162/68 H Blood Pressure Mean 97 97 99 Pulse Ox 96 96 99 Oxygen Delivery Method Room Air Room Air Room Air 04/16/23 14:28 Temperature Temperature Source Pulse Rate 53 L Respiratory Rate 13 Respiratory Effort Blood Pressure 167/67 H Blood Pressure Mean 100 Pulse Ox 98 Oxygen Delivery Method <Dr. Angel Mix DO - Last Filed: 04/16/23 15:16> Physical Exam Const Vital Signs: 04/16/23 11:14 04/16/23 11:16 04/16/23 11:29 Temperature 97.7 F L Temperature Source Oral Pulse Rate 64 Respiratory Rate 18 Respiratory Effort Short of Breath Blood Pressure 176/95 H Blood Pressure Mean 122 Pulse Ox 99 98 Oxygen Delivery Method Room Air Room Air 04/16/23 12:13 04/16/23 13:00 04/16/23 14:00 Temperature Temperature Source Pulse Rate 53 L 53 L 56 L Respiratory Rate 16 16 16 Respiratory Effort Blood Pressure 153/69 H 153/69 H 162/68 H Blood Pressure Mean 97 97 99 Pulse Ox 96 96 99 Oxygen Delivery Method Room Air Room Air Room Air 04/16/23 14:28 Temperature Temperature Source Pulse Rate 53 L Respiratory Rate 13 Respiratory Effort Blood Pressure 167/67 H Blood Pressure Mean 100 Pulse Ox 98 Oxygen Delivery Method <BRIE Ivey - Last Filed: 04/16/23 14:13> Heart Score History: Moderately Suspicious ECG: Normal Age: >/= 65 years Risk Factors: >/= 3 Risk Factors or History of CAD Troponin: </= Normal Limit Score: 5 <Dr. Angel Mix DO - Last Filed: 04/16/23 15:16> Heart Score Score: 5 MDM <BRIE Ivey - Last Filed: 04/16/23 14:13> MDM MDM Narrative Medical decision making narrative: History gathered from: Patient and spouse Patient has had intermittent chest pain rating between his shoulder blades since 5 PM last night. Last several hours at a time and has been going on for several hours this morning. He appears well and nontoxic. BP slightly elevated at 176/95 otherwise normal vital signs. He has a normal cardiopulmonary exam. He has no risk factors for DVT/PE and only no clinical evidence of DVT. EKG is normal sinus rhythm at 63 bpm with no ischemic changes and first troponin is 8. Delta is 6. Labs show stable anemia at 12.1. BMP only notable for glucose of 223 with normal CO2 and anion gap. Although cardiac enzymes are negative and he feels somewhat improved after IV morphine he still has slight chest pain. With heart score of 5 I think he would benefit from admission for prompt cardiac workup as he has multiple risk factors. Case will be discussed with the hospitalist. Lab Data Attestation: I reviewed the patient's lab results. Labs: Laboratory Results - last 24 hr 04/16/23 04/16/23 11:25 13:40 WBC 7.4 RBC 3.77 L Hgb 12.1 L Hct 36.2 L MCV 96.0 H MCH 32.1 H MCHC 33.4 RDW Std Deviation 45.0 H RDW Coeff of Guido 12.8 Plt Count 365 MPV 9.5 Immature Gran % (Auto) 0.300 Neut % (Auto) 76.4 H Lymph % (Auto) 13.6 L [place] % (Auto) 5.5 Eos % (Auto) 3.1 Baso % (Auto) 1.1 H Absolute Neuts (auto) 5.7 Absolute Lymphs (auto) 1.01 Nucleated RBC % 0 Sodium 135 L Potassium 4.9 Chloride 101 Carbon Dioxide 29.0 Anion Gap 5 BUN 11 Creatinine 1.12 Estim Creat Clear Calc 58.46 Est GFR (MDRD) Af Amer 81 Est GFR (MDRD) Non-Af 67 BUN/Creatinine Ratio 9.8 L Glucose 223 H Calcium 9.5 Troponin I High Sens 8 6 Radiography Diagnostic Testing: Clinical Impression(s) from Imaging Studies Chest X-Ray 04/16/23 11:45 IMPRESSION: No acute pulmonary process Electronically Signed: Talon Betts MD at 12:24 EST Reading Location ID and State: [address] [place] [address] , Service support , ED attending interpretation of 1-view chest x-ray shows normal heart size, no acute infiltrate, edema, or effusion. EKG Initial EKG: Attestation: I personally reviewed and interpreted this EKG as follows: Interpretation: Sinus Rhythm and No Acute Injury Pattern Comments: Normal sinus rhythm at 63 bpm No acute ischemic changes <Dr. Angel Mix, DO - Last Filed: 04/16/23 15:16> [facility] Narrative Medical decision making narrative: History gathered from: Patient and spouse Patient has had intermittent chest pain rating between his shoulder blades since 5 PM last night. Last several hours at a time and has been going on for several hours this morning. He appears well and nontoxic. BP slightly elevated at 176/95 otherwise normal vital signs. He has a normal cardiopulmonary exam. He has no risk factors for DVT/PE and only no clinical evidence of DVT. EKG is normal sinus rhythm at 63 bpm with no ischemic changes and first troponin is 8. Delta is 6. Labs show stable anemia at 12.1. BMP only notable for glucose of 223 with normal CO2 and anion gap. Although cardiac enzymes are negative and he feels somewhat improved after IV morphine he still has slight chest pain. With heart score of 5 I think he would benefit from admission for prompt cardiac workup as he has multiple risk factors. Case will be discussed with the hospitalist. This patient was seen with a PA/RV TECHNICIAN Individually assessed they patient including history and physical. I have reviewed everything on the chart that is available and agree with the documentation provided by the PA/RV TECHNICIAN including discussion about the assessment, treatment plan, discussion, and return precautions. Patient presented with continued chest pain. He has a cardiac risk. HEART score 5. CBC and BMP unremarkable. High-sensitivity troponin 8 and delta troponin is 6. Chest x-ray my interpretation shows no acute process. EKG normal sinus rhythm with a ventricular rate 63 bpm without sign of ischemic change or ectopy on my interpretation. Ultimately patient's work-up is negative however he continues to have some chest and back pain. He is given a second dose of morphine. Discussed at length and the patient decided he wanted to stay. Discussed with hospitalist for admission. Lab Data Labs: Laboratory Results - last 24 hr 04/16/23 04/16/23 11:25 13:40 WBC 7.4 RBC 3.77 L Hgb 12.1 L Hct 36.2 L MCV 96.0 H MCH 32.1 H MCHC 33.4 RDW Std Deviation 45.0 H RDW Coeff of Guido 12.8 Plt Count 365 MPV 9.5 Immature Gran % (Auto) 0.300 Neut % (Auto) 76.4 H Lymph % (Auto) 13.6 L [place] % (Auto) 5.5 Eos % (Auto) 3.1 Baso % (Auto) 1.1 H Absolute Neuts (auto) 5.7 Absolute Lymphs (auto) 1.01 Nucleated RBC % 0 Sodium 135 L Potassium 4.9 Chloride 101 Carbon Dioxide 29.0 Anion Gap 5 BUN 11 Creatinine 1.12 Estim Creat Clear Calc 58.46 Est GFR (MDRD) Af Amer 81 Est GFR (MDRD) Non-Af 67 BUN/Creatinine Ratio 9.8 L Glucose 223 H Calcium 9.5 Troponin I High Sens 8 6 Radiography Diagnostic Testing: Clinical Impression(s) from Imaging Studies Chest X-Ray 04/16/23 11:45 IMPRESSION: No acute pulmonary process Electronically Signed: Talon Betts MD at 12:24 EST , Discharge Plan Triage Chief Complaint: Chest Pain ED Midlevel Provider: Zeina Larios ED Provider: Angel Mix Dx/Rx/DC Orders Clinical Impression: Chest pain Prescriptions: No Action fluoxetine [Prozac] 40 mg capsule 40 mg PO DAILY Hold Instructions: until done with Zyvox Patient Comments: not taking while taking antibiotic linezolid acetaminophen [Tylenol Extra Strength] 500 mg tablet 500 mg PO Q6H PRN (Reason: Pain) tizanidine 4 mg capsule 4 mg PO BID PRN (Reason: muscle spasticity) nitroglycerin 0.4 mg tablet, sublingual 0.4 mg SUBLINGUAL Q5-15M PRN (Reason: chest pain) Qty: 25 1RF Rx Instructions: do not exceed 3 doses per episode multivitamin Tablet 1 tab PO DAILY oxycodone 5 mg tablet 5 mg PO Q6H PRN (Reason: pain) Patient Comments: TAKE 1 TO 2 TABLET BY MOUTH EVERY SIX HOURS NEEDED FOR PAIN propranolol 20 mg tablet 30 mg PO BID amlodipine 5 mg tablet 5 mg PO BID clopidogrel 75 mg tablet 75 mg PO DAILY rosuvastatin 10 mg tablet 10 mg PO QHS Qty: 90 3RF lisinopril 10 mg tablet See Rx Instructions .ROUTE .COMPLEX Qty: 180 3RF Dose Instruction: TAKE 1 TABLET BY MOUTH TWICE A DAY Rx Instructions: TAKE 1 TABLET BY MOUTH TWICE A DAY Primary Care Provider: Harvinder Vaughan Referrals: Harvinder Vaughan MD [Primary Care Provider] -
[2023-04-16] MEDS: Ondansetron 4 MG/2 ML Vial IV (11:45)
[2023-04-16] MEDS: Morphine 4 MG/ML Syringe IV (11:45)
--- NOTE | 2023-04-16 11:45 | RAD_ITS ---
STUDY: X-RAY CHEST REASON FOR EXAM: Male, 82 years old. Atypical chest pain TECHNIQUE: 2 AP portable views COMPARISON: 03/13/2023 FINDINGS: EKG leads overlie the chest The lungs are clear and expanded. There is no demonstrated pleural abnormality. Normal size heart. Normal mediastinum and luke. Normal visualized pulmonary arteries. Normal visualized aortic arch and descending thoracic aorta. There are diffuse degenerative changes of the visualized thoracic spine. Normal visualized ribs, clavicles, and shoulders. There is no demonstrated abnormality of the visualized soft tissue structures of the upper abdomen. RAD/Chest 1 View (Portable) IMPRESSION: No acute pulmonary process Electronically Signed: Talon Betts MD at 12:24 EST ,
[2023-04-16 11:54] LABS: Anion Gap 5 (5-15); BUN 11 mg/dL (7-18); BUN/Creat Ratio 9.8 RATIO (10-20); Calcium,Total 9.5 mg/dL (8.5-10.1); Chloride 101 mmol/L (98-107); Creatinine, Serum 1.12 mg/dL (0.70-1.30); EST Glomerular Filtration Rate 67 mL/min (>60); Est Glom Filt Rate - Afr Amer 81 mL/min (>60); Estimated Creatinine Clearance 58.46 ml/min; Glucose 223 mg/dL (74-106); Potassium 4.9 mmol/L (3.5-5.1); Sodium Level 135 mmol/L (136-145); Troponin-I HS (w/2H Reflex) 8 pg/mL (3.0-78.0)
[2023-04-16] MEDS: Morphine 2 MG/ML Syringe IV (13:06)
[2023-04-16 13:31] LABS: Reflex Troponin-HS? (from REC) Y
[2023-04-16 14:05] LABS: Troponin-I HS 6 pg/mL (3.0-78.0)
--- NOTE | 2023-04-16 15:19 | NURSING ---
PCU OBS ROGERS CHEST PAIN
--- NOTE | 2023-04-16 16:51 | HP.PCM.HOS_ITS ---
[facility] - General General Date of Admission: 04/16/23 Date of Service: 04/16/23 Chief Complaint: Chest and back pain HPI Narrative NARESH MONZON, is a 82 M who presents Chest pain associated with back pain since yesterday. He notes the pain is radiating from his chest to his back, but at present only persistent in his back between the 2 shoulder blades. Has had history of chest pain in the past, and also has a recent spinal surgery for spin al spondylosis. This pain is known similar to his pain episodes in the past. Of note he had a fall day before yesterday from kneeling position. There was no associated head injury. No syncopal episode, it was only be due to imbalance. He was able to get up on his feet by himself. There is some improvement with morphine but the pain is still persistent. The pain improved while laying back on the bed, worsens with sitting for a prolonged period of time. No sweating, palpitations, syncopal episodes. Has history of coronary artery disease with 1 stent in the circumflex artery in 2010, stress test in 2022 was negative. Has a history of CVA in 2021 and on Plavix since then. He is on Plavix daily. Cardiac evaluation in the ED was negative. Troponins are normal. For his blood pressure he is taking amlodipine, lisinopril and propranolol. [facility] Medical History Anxiety Arthritis Atherosclerotic heart disease of [place] coronary artery without angina pectoris Benign prostatic hypertrophy Cardiology follow-up encounter Chest pain Coronary artery disease COVID-19 (~01/18/22) Depression Dizziness and giddiness Dyspnea Easy bruising Enterococcus UTI Essential hypertension Fatigue Former smoker H/O appendicitis History of echocardiogram History of hiatal hernia History of stress test History of tilt table evaluation History of transesophageal echocardiography (VIOLETTE) Indwelling urethral catheter present 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 Low iron Neck pain on left side REHAN (obstructive sleep apnea) Precordial chest pain Presence of stent in coronary artery (~09/08/10) PTSD (post-traumatic stress disorder) Pulmonary hypertension Pure hypercholesterolemia Restless legs syndrome (RLS) Sepsis due to urinary tract infection Shortness of breath Syncope and collapse Walker as ambulation aid Wears glasses Wears hearing aid Home Medications fluoxetine 40 mg capsule (Prozac) 40 mg PO DAILY 07/04/18 [History Last Taken 07/13/21] acetaminophen 500 mg tablet (Tylenol Extra Strength) 500 mg PO Q6H PRN Pain 06/17/20 [History Last Taken 07/13/21] amlodipine 5 mg tablet 5 mg PO BID 03/17/21 [History Last Taken 07/14/21] multivitamin 1 tab PO DAILY 02/08/22 [History Last Taken Unknown] tizanidine 4 mg capsule 4 mg PO BID PRN muscle spasticity 02/08/22 [History Last Taken Unknown] clopidogrel 75 mg tablet 75 mg PO DAILY 05/05/22 [History Last Taken Unknown] nitroglycerin 0.4 mg sublingual tablet 0.4 mg sublingual Q5-15M PRN chest pain #25 tabs 05/26/22 [Rx Last Taken Unknown] rosuvastatin 10 mg tablet 10 mg PO QHS #90 tabs 11/24/22 [Rx Last Taken Unknown] lisinopril 10 mg tablet See Rx Instructions .Route .COMPLEX #180 tabs 03/02/23 [Rx Last Taken Unknown] oxycodone 5 mg tablet 5 mg PO Q6H PRN pain 04/16/23 [History Last Taken Unknown] propranolol 20 mg tablet 30 mg PO BID 04/16/23 [History Last Taken Unknown] Allergy/AdvReac Type Severity Reaction Status Date / Time hydrocodone [From Vicodin] Allergy Other Verified 03/13/23 11:45 orphenadrine Allergy Unknown Verified 03/13/23 11:45 pregabalin Allergy Swelling Verified 03/13/23 11:45 atorvastatin [From Lipitor] AdvReac Severe Intolerance Verified 03/13/23 11:45 ,Myalgias Family History Father CVA (cerebral vascular accident) Mother Cardiomegaly Brother CAD (coronary artery disease) Hx CABG and valve replacement Diabetes Brother History of heart valve replacement Brother Rheumatic fever Sister Hypertension Aortic aneurysm H/O aortic valve replacement Brother Cancer bladder Brother Thyroid disorder Surgical History H/O heart artery stent History of appendectomy History of colonoscopy History of hydrocelectomy History of right hip replacement History of vasectomy hx cervical stenosis Presence of coronary angioplasty implant and graft (~09/08/10) S/P right knee arthroscopy S/P TURP Social History household members: spouse housing: house Smoking Status: Former smoker pack-years: 20 Tobacco: How many years used: 22 second hand exposure: No alcohol intake: never substance use type: does not use caffeine: Yes Type: carbonated beverages Number of servings: 1 and tea what type of physical activity do you participate in: none seatbelt use: always do you feel safe at home: Yes Prior Cardiac Testing/Procedures Prior Cardiac Testing/Procedures: Echocardiogram, Stress Test and Stenting ROS Constitutional Constitutional: Reports weakness; Denies anorexia, change in weight, chills, fatigue, fever(s), malaise, night sweats or other Eyes Eyes: Denies blurry vision, change in eye color, change in vision, discharge from eye(s), double vision, erythema, eye pain, loss of vision or other ENT HEENT: Denies abnormal hearing, dysphagia, ear pain, epistaxis, headache(s), hearing loss, nasal congestion, nasal discharge, post nasal drip, sinus pressure, sore throat or other Respiratory/Chest Respiratory/Chest: Denies cough, dyspnea, excessive phlegm production, hemoptysis, productive cough, shortness of breath at rest, shortness of breath with exertion, wheezing or other Gastrointestinal Gastrointestinal: Denies abdominal pain, coffee ground emesis, constipation, diarrhea, dyspepsia, hematemesis, hematochezia, loose stools, melena, nausea, vomiting or other Genitourinary Genitourinary: Denies burning urination, difficulty urinating, dysuria, hematuria, nocturia, urinary frequency, urinary hesitancy, urinary incontinence, urinary urgency or other Musculoskeletal Musculoskeletal: Denies arthralgias, back pain, joint pain, joint stiffness, joint swelling, myalgias, neck pain or other Neurologic Neurologic: Denies abnormal gait, abnormal speech, confusion, disequilibrium, dizziness, focal weakness, headache(s), numbness, paresthesias, seizure-like activity, seizures, syncope, tingling, tremor(s) or other Vital Signs Vital Signs Vital Signs: 04/16/23 11:14 04/16/23 11:16 04/16/23 11:29 Temperature 97.7 F L Temperature Source Oral Pulse Rate 64 Respiratory Rate 18 Respiratory Effort Short of Breath Blood Pressure 176/95 H Blood Pressure [2nd BP] Blood Pressure Mean 122 Blood Pressure Mean [2nd BP] Blood Pressure Source [2nd BP] Blood Pressure Position [2nd BP] Blood Pressure Location [2nd BP] Pulse Ox 99 98 Oxygen Delivery Method Room Air Room Air 04/16/23 12:13 04/16/23 13:00 04/16/23 14:00 Temperature Temperature Source Pulse Rate 53 L 53 L 56 L Respiratory Rate 16 16 16 Respiratory Effort Blood Pressure 153/69 H 153/69 H 162/68 H Blood Pressure [2nd BP] Blood Pressure Mean 97 97 99 Blood Pressure Mean [2nd BP] Blood Pressure Source [2nd BP] Blood Pressure Position [2nd BP] Blood Pressure Location [2nd BP] Pulse Ox 96 96 99 Oxygen Delivery Method Room Air Room Air Room Air 04/16/23 14:28 04/16/23 15:00 04/16/23 15:58 Temperature 98.5 F Temperature Source Oral Pulse Rate 53 L 55 L 58 L Respiratory Rate 13 19 H 14 Respiratory Effort Blood Pressure 167/67 H 161/70 H Blood Pressure [2nd BP] 154/56 H Blood Pressure Mean 100 100 Blood Pressure Mean [2nd BP] 88 Blood Pressure Source [2nd BP] Monitor Blood Pressure Position [2nd BP] Semi-Fowlers Blood Pressure Location [2nd BP] Left Arm Pulse Ox 98 97 95 Oxygen Delivery Method Room Air Room Air Weight Weight: 204 lb 2.369 oz Body Mass Index (BMI) 26.9 Physical Exam Const alert and oriented x3 HEENT normocephalic Eyes PERRL Neck no lymphadenopathy Resp normal respiratory effort and no retractions Cardio regular rate GI normal to inspection, nondistended, normoactive bowel sounds Extremity Extremity Narrative: Tenderness on palpation in the upper back region, pain worsens with stretching of his upper back, Neuro oriented x3 Neuro Narrative: Has difficulty in hearing Psych affect normal Results Medical Records Data Attestation: I reviewed the patient's medical records Lab / Micro Data Attestation: I reviewed the patient's lab results. 04/16/23 11:25 04/16/23 11:25 Labs: Laboratory Results - last 24 hr 04/16/23 11:25: WBC 7.4, RBC 3.77 L, Hgb 12.1 L, Hct 36.2 L, MCV 96.0 H, MCH 32.1 H, MCHC 33.4, RDW Std Deviation 45.0 H, RDW Coeff of Guido 12.8, Plt Count 365, MPV 9.5, Immature Gran % (Auto) 0.300, Neut % (Auto) 76.4 H, Lymph % (Auto) 13.6 L, Granite % (Auto) 5.5, Eos % (Auto) 3.1, Baso % (Auto) 1.1 H, Absolute Neuts (auto) 5.7, Absolute Lymphs (auto) 1.01, Nucleated RBC % 0, Sodium 135 L, Potassium 4.9, Chloride 101, Carbon Dioxide 29.0, Anion Gap 5, BUN 11, Creatinine 1.12, Estim Creat Clear Calc 58.46, Est GFR (MDRD) Af Amer 81, Est GFR (MDRD) Non-Af 67, BUN/Creatinine Ratio 9.8 L, Glucose 223 H, Calcium 9.5, Troponin I High Sens 8 04/16/23 13:40: Troponin I High Sens 6 Imagaing Radiology Impression Chest X-Ray 04/16/23 11:45 IMPRESSION: No acute pulmonary process Electronically Signed: Talon Betts MD at 12:24 EST , Assessment & Plan Assessment/Plan (1) Chest pain: PLAN: Plan Summary: 82 yr old presents for evaluation of chest pain and back pain following fall few days back. His cardiac evaluation is negative and the pain is reproducible on movement and on palpation. 1. Upper back pain: It is consistent with musculoskeletal pain based on the normal cardiac evaluation, pain is reproducible on stretching exercises and also local tenderness is present. Differentials include muscular strain due to the fall couple of days back. Will get physical therapy and Occupational Therapy evaluation and also assist in early rehabilitation. Can consider outpatient rehab if needed 2. Chest pain: There is no evidence of ongoing ischemia, troponins, EKG are normal. Recent stress test are normal. The first differential for the pain is musculoskeletal, no skin lesions to suspect viral infection. Unstable angina is very unlikely. 3. Falls: No concerns regarding syncopal episode, fell down from a kneeling position. Would get physical therapy evaluation for balance. Has good support social support and lives with his . Could be related to propranolol leading to orthostatic symptoms. We will hold it now 4. Hypertension continue home medications for now, have withheld propranolol as it can cause some orthostatic symptoms. Continue to monitor blood pressure closely. Charges/Coding Visit Charges Inpatient E&M: 07190 Init Hosp L2
--- NOTE | 2023-04-16 18:04 | EKG12_ITS ---
Test Reason : ADMISSION PROTOCOL Blood Pressure : / mmHG Vent. Rate : 056 BPM Atrial Rate : 056 BPM P-R Int : 188 ms QRS Dur : 092 ms QT Int : 444 ms P-R-T Axes : 066 006 044 degrees QTc Int : 428 ms Sinus bradycardia Otherwise normal ECG When compared with ECG of 16-APR-2023 11:19, MANUAL COMPARISON REQUIRED, DATA IS UNCONFIRMED Confirmed by WALDEMAR FUNEZ, SHIRLEY ([id number]), news video editor NARAYAN ERAZO ([id number]) on 04/18/2023 7:13:58 AM Referred By: Confirmed By:SHIRLEY MEDEIROS MD
[2023-04-16] MEDS: amLODIPine 5 MG Tablet PO (20:39)
[2023-04-16] MEDS: Lisinopril 10 MG Tablet PO (20:39)
[2023-04-17 03:00] VITALS: BP 136/61; PULSE 63; RESP 16; TEMP 36.6; O2SAT 98
[2023-04-17 05:33] LABS: Absolute Lymphocyte Count 1.46 X10^3/uL (0.83-4.51); Absolute Neutrophil Count 6.9 X10^3/uL (2.0-7.7); Basophil# 0.07 X10^3/uL; Basophil% 0.7 % (0-1); Eosinophil# 0.34 X10^3/uL; Eosinophils% 3.5 % (0-5); Hematocrit 32.6 % (40-54); Hemoglobin 10.7 g/dL (13.0-16.5); Lymphocyte # 1.46 X10^3/ul (0.83-4.51); Mean Corp Hgb Conc 32.8 g/dL (32-36); Mean Corpuscular Hgb 31.5 pg (27.0-32.0); Mean Corpuscular Volume 95.9 fL (80-94); Mean Platelet Vol. 9.6 fl (6.2-12.0); Monocyte# 1.01 X10^3/uL; Monocyte% 10.3 % (0-10); NRBC Flagged by Analyzer 0 % (0-5); Neutrophil # 6.85 X10^3/uL (2.7-7.7); Neutrophil % 70.2 % (47-70); Platelet Count 327 K/mm3 (150-450); RBC Distribution Width CV 12.8 % (11.6-14.6); RBC Distribution Width SD 44.9 fl (35.1-43.9); White Blood Count 9.8 K/mm3 (4.4-11.0)
[2023-04-17 05:46] LABS: International Normalized Ratio 1.1; Prothrombin Time (Protime)PT. 14.1 SECONDS (11.7-14.9)
[2023-04-17 06:10] LABS: ALB/GLOB Ratio 0.8 RATIO (0.9-2.4); AST(SGOT) 17 U/L (15-37); Alanine Aminotransfer ALT/SGPT 20 U/L (16-61); Albumin, Serum 2.9 g/dL (3.2-5.0); Alkaline Phosphatase 102 U/L (45-117); Anion Gap 6 (5-15); BUN 17 mg/dL (7-18); BUN/Creat Ratio 16.3 RATIO (10-20); Bilirubin, Direct 0.09 mg/dL (0.00-0.30); Calcium,Total 8.7 mg/dL (8.5-10.1); Chloride 103 mmol/L (98-107); Creatinine, Serum 1.04 mg/dL (0.70-1.30); EST Glomerular Filtration Rate 73 mL/min (>60); Est Glom Filt Rate - Afr Amer 88 mL/min (>60); Estimated Creatinine Clearance 62.96 ml/min; Globulin 3.6 g/dL (2.2-4.2); Glucose 111 mg/dL (74-106); Magnesium 1.9 mg/dL (1.6-2.6); Phosphorus 3.8 mg/dL (2.5-4.9); Potassium 4.2 mmol/L (3.5-5.1); Protein, Total 6.5 g/dL (6.4-8.2); Sodium Level 138 mmol/L (136-145)
[2023-04-17 08:25] VITALS: BP 157/61; PULSE 61; RESP 14; TEMP 36.9; O2SAT 95
[2023-04-17] MEDS: Lisinopril 10 MG Tablet PO ×2 (08:32→20:07)
[2023-04-17] MEDS: Enoxaparin 40 MG/0.4 ML Syringe SC (08:32)
[2023-04-17] MEDS: Clopidogrel Bisulfate 75 MG Tablet PO (08:32)
[2023-04-17] MEDS: Fluoxetine HCl 40 MG CAPSULE PO (08:32)
[2023-04-17] MEDS: amLODIPine 5 MG Tablet PO ×2 (08:32→20:07)
[2023-04-17] MEDS: Multivitamins,Therapeutic Tablet 1 TABLET PO (08:32)
--- NOTE | 2023-04-17 11:30 | CASEMGMT ---
DENNIS JEFFRIES Face to Face with patient for initial transition planning/care coordination assessment. RN CM introduced self and role at [facility]. Patient lying in bed, alert and oriented, son at bedside. Patient willing to participate in assessment and is able to answer all questions appropriately. Care providers, pharmacy, and demographics verified. Patient wishes to discharge home with outpatient therapy. Patient states he has no further needs or concerns at this time. CM to follow for discharge planning needs that may arise. [facility] Specialists: RUSLAN, Relish Blender; Pain specialist at [facility] Preferred [facility]acy: [facility] Prescription Benefit: yes Living Will/HPOA: yes, Marika Nj LNOK: , son Living Arrangements: Patient lives with in a single story home with 2 steps and railing to enter the home. Patient is independent at home. Transportation: self, DME/HHC: Patient has shower chair, raised toilet, grab bars, walker, rollator at home. Patient has had [facility] in the past. Disposition Plan: Patient to discharge home with outpatient therapy, family support, and follow-up plans in place. Archana REIS, RN, CM
--- NOTE | 2023-04-17 13:44 | PN_ITS ---
Subjective Subjective Patient seen and examined. HE was admitted with a complaint of chest pain. He feels better today. His was by his bedside. Review of systems is otherwise negative. Objective Data Objective Data Vital Signs: Vital Signs Temp Pulse Resp BP Pulse Ox O2 Del Method 98.4 F 61 14 157/61 H 95 Room Air 04/17/23 08:25 04/17/23 08:25 04/17/23 08:25 04/17/23 08:25 04/17/23 08:25 04/17/23 08:25 Oxygen Delivery Method Room Air Weight: 204 lb 2.369 oz Body Mass Index (BMI) 26.9 Intake & Output: Intake and Output for Last 24 Hours 04/15/23 04/16/23 04/17/23 23:59 23:59 23:59 Intake Total 590 / 590 550 / 550 Balance 590 / 590 550 / 550 Lab / Micro Data 04/17/23 05:09 04/17/23 05:09 Labs: Laboratory Results - last 24 hr 04/16/23 13:40: Troponin I High Sens 6 04/17/23 05:09: WBC 9.8, RBC 3.40 L, Hgb 10.7 L, Hct 32.6 L, MCV 95.9 H, MCH 31.5, MCHC 32.8, RDW Std Deviation 44.9 H, RDW Coeff of Guido 12.8, Plt Count 327, MPV 9.6, Immature Gran % (Auto) 0.300, Neut % (Auto) 70.2 H, Lymph % (Auto) 15.0 L, [place] % (Auto) 10.3 H, Eos % (Auto) 3.5, Baso % (Auto) 0.7, Absolute Neuts (auto) 6.9, Absolute Lymphs (auto) 1.46, Nucleated RBC % 0, PT 14.1, INR 1.1, Sodium 138, Potassium 4.2, Chloride 103, Carbon Dioxide 29.0, Anion Gap 6, BUN 17, Creatinine 1.04, Estim Creat Clear Calc 62.96, Est GFR (MDRD) Af Amer 88, Est GFR (MDRD) Non-Af 73, BUN/Creatinine Ratio 16.3, Glucose 111 H, Calcium 8.7, Phosphorus 3.8, Magnesium 1.9, Total Bilirubin 0.30, Direct Bilirubin 0.09, AST 17, ALT 20, Alkaline Phosphatase 102, Total Protein 6.5, Albumin 2.9 L, Globulin 3.6, Albumin/Globulin Ratio 0.8 L Physical Exam Const alert, oriented x3 and no apparent distress General Appearance: cooperative and well developed HEENT normocephalic, moist oral mucous membranes and oropharynx normal Eyes PERRL and EOMs intact bilaterally Neck no lymphadenopathy and supple Lymph Lymphatic: no lymphadenopathy noted Resp normal respiratory effort, normal air movement and clear to auscultation bilaterally Cardio regular rate, regular rhythm, S1 normal heart sound, S2 normal heart sound and no murmurs GI normal to inspection, nondistended, normoactive bowel sounds, soft to palpation, non-tender and non-distended Extremity normal capillary refill, no clubbing, cyanosis or edema and no calf tenderness General Extremity: no tenderness to palpation of joints or extremities Skin General Skin Exam: no breakdown Neuro CN's II-XII intact bilaterally, no focal motor deficits, no sensory deficits noted and deep tendon reflexes 2+ bilaterally Motor Exam: strength 5/5 throughout Psych thought process normal and cooperative Appearance: appropriate Assessment & Plan Assessment/Plan (1) Chest pain: PLAN: Plan #Chest pain' * troponins were negative x 3. He had a stress test in May 2022 which was negative. * EKG showed no acute ST changes * will do stress test in light of history of heart disease. Couldnt do stress test today. Will do tomorrow * #Debility due to mechanical fall * PT/OT on board. Fall precautions. * propranolol held due to concern for orthostatic symptoms. * #Hypertension: on amlodipine and lisinopril #Hyperlipidemia: on statin #CAD s/p stents: on plavix and high intensity statin DVT Prophylaxis: on lovenox Charges/Coding Visit Charges Inpatient E&M: 17886 Subs Hosp L2
[2023-04-17 15:30] VITALS: BP 150/55; PULSE 63; RESP 14; TEMP 36.9
--- NOTE | 2023-04-17 15:33 | CASEMGMT ---
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. Patient's said she will look for the documents and bring them in. Kristin LAGUNAS
[2023-04-17 23:00] VITALS: BP 150/63; PULSE 78; RESP 16; TEMP 36.9; O2SAT 98
[2023-04-18 03:00] VITALS: BP 145/64; PULSE 73; RESP 16; TEMP 37; O2SAT 98
[2023-04-18] MEDS: amLODIPine 5 MG Tablet PO (04:49)
[2023-04-18] MEDS: Fluoxetine HCl 40 MG CAPSULE PO (04:49)
[2023-04-18] MEDS: Clopidogrel Bisulfate 75 MG Tablet PO (04:49)
[2023-04-18] MEDS: Multivitamins,Therapeutic Tablet 1 TABLET PO (04:49)
[2023-04-18] MEDS: Lisinopril 10 MG Tablet PO (04:50)
--- NOTE | 2023-04-18 05:55 | EKG12_ITS ---
Test Reason : AM EKG Blood Pressure : / mmHG Vent. Rate : 068 BPM Atrial Rate : 068 BPM P-R Int : 190 ms QRS Dur : 090 ms QT Int : 408 ms P-R-T Axes : 062 000 029 degrees QTc Int : 433 ms Normal sinus rhythm Normal ECG When compared with ECG of 16-APR-2023 16:54, MANUAL COMPARISON REQUIRED, DATA IS UNCONFIRMED Confirmed by WALDEMAR FUNEZ, SHIRLEY ([id number]), editor school photograph ETHAN SALAS ([id number]) on 04/18/2023 1:20:23 PM Referred By: Confirmed By:SHIRLEY MEDEIROS MD
[2023-04-18 07:20] LABS: Absolute Lymphocyte Count 1.11 X10^3/uL (0.83-4.51); Absolute Neutrophil Count 5.5 X10^3/uL (2.0-7.7); Basophil# 0.07 X10^3/uL; Basophil% 0.9 % (0-1); Eosinophil# 0.27 X10^3/uL; Eosinophils% 3.5 % (0-5); Hematocrit 34.3 % (40-54); Lymphocyte # 1.11 X10^3/ul (0.83-4.51); Lymphocyte % 14.3 % (19-41); Mean Corp Hgb Conc 32.1 g/dL (32-36); Mean Corpuscular Hgb 30.4 pg (27.0-32.0); Mean Corpuscular Volume 94.8 fL (80-94); Monocyte# 0.76 X10^3/uL; Monocyte% 9.8 % (0-10); NRBC Flagged by Analyzer 0 % (0-5); Neutrophil # 5.53 X10^3/uL (2.7-7.7); Neutrophil % 71.2 % (47-70); Platelet Count 346 K/mm3 (150-450); RBC Distribution Width CV 12.5 % (11.6-14.6); RBC Distribution Width SD 44.1 fl (35.1-43.9); Red Blood Count 3.62 M/mm3 (4.6-6.2); White Blood Count 7.8 K/mm3 (4.4-11.0)
[2023-04-18 07:43] LABS: Anion Gap 2 (5-15); BUN 15 mg/dL (7-18); BUN/Creat Ratio 15.1 RATIO (10-20); Calcium,Total 8.9 mg/dL (8.5-10.1); Chloride 104 mmol/L (98-107); Creatinine, Serum 0.99 mg/dL (0.70-1.30); EST Glomerular Filtration Rate 77 mL/min (>60); Est Glom Filt Rate - Afr Amer 93 mL/min (>60); Estimated Creatinine Clearance 66.13 ml/min; Glucose 122 mg/dL (74-106); Potassium 3.8 mmol/L (3.5-5.1); Sodium Level 135 mmol/L (136-145)
[2023-04-18 08:45] VITALS: BP 156/71; PULSE 71; RESP 14; TEMP 37; O2SAT 97
--- NOTE | 2023-04-18 14:49 | STRESSREP ---
Stress Test Report Pharmacologic myocardial perfusion stress test. 82-year-old man with a history of chest pain Resting EKG demonstrates sinus rhythm with a rate of 65 bpm. Resting blood pressure is 162/70 mmHg. 0.4 mg of regadenoson was infused per usual protocol followed by rapid intravenous saline flush injection. Continuous EKG monitoring was performed. The maximum heart rate was 102 bpm which was 73% of max impacted heart rate the maximum workload was 1 metabolic equivalent. At rest there were no ST or T wave changes noted to suggest ischemia and at peak infusion nonspecific ST changes were noted which did not meet the criteria for ischemia. No clinical angina is noted. The final blood pressure was 170/52 mmHg. Myocardial perfusion protocol. 12.0 mCi of technetium 99m sestamibi was injected at rest. 0.4 mg of regadenoson was infused per usual protocol. At peak infusion 36 mCi of technetium 99m sestamibi was injected stress images were obtained stress and rest images were reconstructed and compared in the short axis vertical long and horizontal long axis. Gated images were also obtained. Perfusion SPECT analysis: Review of the stress images demonstrate normal uptake of tracer noted in all areas of the myocardium. The resting images similar demonstrated normal uptake of tracer noted in all areas of the myocardium. No areas of reversibility are noted to suggest ischemia and no previous infarct is noted. Gated SPECT analysis: The gated ejection fraction is 77. Conclusion: Normal pharmacologic myocardial perfusion stress test. Preserved ejection fraction.
--- NOTE | 2023-04-18 15:11 | DS.PCM_ITS ---
Providers Date of Admission: 04/16/23 Date of Discharge: 04/18/23 Primary Care Physician: Dr. Harvinder Vaughan MD Reason For Visit: CHEST PAIN Diagnosis Discharge Diagnosis (1) Chest pain: Status: Acute Code(s): R07.9 - Chest pain, unspecified Plan #Chest pain' * troponins were negative x 3. He had a stress test in May 2022 which was negative. * EKG showed no acute ST changes * will do stress test in light of history of heart disease. Couldnt do stress test today. Will do tomorrow * #Debility due to mechanical fall * PT/OT on board. Fall precautions. * propranolol held due to concern for orthostatic symptoms. * #Hypertension: on amlodipine and lisinopril #Hyperlipidemia: on statin #CAD s/p stents: on plavix and high intensity statin DVT Prophylaxis: on lovenox Medications at Discharge Home Medications fluoxetine 40 mg capsule (Prozac) 40 mg PO DAILY 07/04/18 acetaminophen 500 mg tablet (Tylenol Extra Strength) 500 mg PO Q6H PRN Pain 06/17/20 amlodipine 5 mg tablet 5 mg PO BID 03/17/21 multivitamin 1 tab PO DAILY 02/08/22 tizanidine 4 mg capsule 4 mg PO BID PRN muscle spasticity 02/08/22 clopidogrel 75 mg tablet 75 mg PO DAILY 05/05/22 nitroglycerin 0.4 mg sublingual tablet 0.4 mg sublingual Q5-15M PRN chest pain #25 tabs 05/26/22 rosuvastatin 10 mg tablet 10 mg PO QHS #90 tabs 11/24/22 lisinopril 10 mg tablet See Rx Instructions .Route .COMPLEX #180 tabs 03/02/23 oxycodone 5 mg tablet 5 mg PO Q6H PRN pain 04/16/23 propranolol 20 mg tablet 30 mg PO BID 04/16/23 Hospital Course Operations None Procedures Stress test Summary of Care Provided Minutes Spent on Discharge: 45 Hospital Course: Patient is an 82-year-old male with a past medical history as outlined was admitted through the ED 04/16/2023 with a complaint of back pain and chest pain. He says the pain radiated from his chest to his back. It persisted between his shoulder blades. He had also had a recent fall. He did have a history of CAD and had had 1 stent placed in 2010 and also had had a recent stress test in May 2022. He was admitted and managed for chest pain to rule out ACS. Troponins x 3 were negative and EKG showed no acute ST changes. He had a stress test on 04/18/2024 which showed no evidence of ischemia. He remained stable and was discharged home on 04/18/2023. He is to follow up with his PCP within 1-2 weeks. Patient seen and examined prior to discharge. He had no active complaints. Review of systems is otherwise negative. Labs and vitals reviewed. Home meds reviewed and reconciled. Physical Exam Const alert, oriented x3 and no apparent distress General Appearance: cooperative, comfortable, well kempt and well developed HEENT normocephalic, head/scalp atraumatic, hearing grossly normal bilaterally, moist oral mucous membranes and oropharynx normal Mouth: oral and palatal mucosa normal Eyes PERRL and EOMs intact bilaterally Neck no lymphadenopathy and supple Lymph Lymphatic: no lymphadenopathy noted Resp normal respiratory effort, normal air movement, no retractions and clear to auscultation bilaterally Cardio regular rate, regular rhythm, S1 normal heart sound, S2 normal heart sound and no murmurs GI normal to inspection, nondistended, normoactive bowel sounds, soft to palpation, non-tender and non-distended Extremity normal capillary refill, no clubbing, cyanosis or edema and no calf tenderness General Extremity: no tenderness to palpation of joints or extremities Skin no rashes or lesions noted General Skin Exam: no breakdown Neuro oriented x3, CN's II-XII intact bilaterally, moves all extremities, no focal motor deficits, no sensory deficits noted and deep tendon reflexes 2+ bilat erally Motor Exam: strength 5/5 throughout Psych thought process normal, cooperative and affect normal Appearance: appropriate Weight / BMI Weight Weight: 204 lb 2.369 oz Body Mass Index (BMI) 26.9 ABG / Lab / Microbiology Data 04/18/23 06:37 04/18/23 06:37 Laboratory: Laboratory Results - last 24 hr 04/18/23 06:37: WBC 7.8, RBC 3.62 L, Hgb 11.0 L, Hct 34.3 L, MCV 94.8 H, MCH 30.4, MCHC 32.1, RDW Std Deviation 44.1 H, RDW Coeff of Guido 12.5, Plt Count 346, MPV 10.0, Immature Gran % (Auto) 0.300, Neut % (Auto) 71.2 H, Lymph % (Auto) 14.3 L, [place] % (Auto) 9.8, Eos % (Auto) 3.5, Baso % (Auto) 0.9, Absolute Neuts (auto) 5.5, Absolute Lymphs (auto) 1.11, Nucleated RBC % 0, Sodium 135 L, Potassium 3.8, Chloride 104, Carbon Dioxide 29.0, Anion Gap 2 L, BUN 15, C reatinine 0.99, Estim Creat Clear Calc 66.13, Est GFR (MDRD) Af Amer 93, Est GFR (MDRD) Non-Af 77, BUN/Creatinine Ratio 15.1, Glucose 122 H, Calcium 8.9 D/C Instructions Discharge Diet: Low fat / Low cholesterol Discharge Activity: Return to Normal Activity Weight Bearing Status: Weight bearing as tolerated Call your doctor if you observe: Fever of 101 or Higher, Shortness of breath, Dizziness, Swelling in the ankles, Chest pain and Increased palpitations (irregular heartbeat) Meaningful Use Info Meaningful Use Diagnoses (Choose all that apply): None applicable Discharge Plan Admission Admit Date/Time: 04/16/23 14:47 Primary Reason for Your Visit: chest pain Attending Provider: Nini Brown Primary Care Provider: Harvinder Vaughan Consulting Providers: Juan Pike Discharge Orders/Prescriptions Prescriptions: Continued fluoxetine [Prozac] 40 mg capsule 40 mg PO DAILY Hold Instructions: until done with Zyvox Patient Comments: not taking while taking antibiotic linezolid acetaminophen [Tylenol Extra Strength] 500 mg tablet 500 mg PO Q6H PRN (Reason: Pain) tizanidine 4 mg capsule 4 mg PO BID PRN (Reason: muscle spasticity) nitroglycerin 0.4 mg tablet, sublingual 0.4 mg SUBLINGUAL Q5-15M PRN (Reason: chest pain) Qty: 25 1RF Rx Instructions: do not exceed 3 doses per episode multivitamin Tablet 1 tab PO DAILY oxycodone 5 mg tablet 5 mg PO Q6H PRN (Reason: pain) Patient Comments: TAKE 1 TO 2 TABLET BY MOUTH EVERY SIX HOURS NEEDED FOR PAIN propranolol 20 mg tablet 30 mg PO BID amlodipine 5 mg tablet 5 mg PO BID clopidogrel 75 mg tablet 75 mg PO DAILY rosuvastatin 10 mg tablet 10 mg PO QHS Qty: 90 3RF lisinopril 10 mg tablet See Rx Instructions .ROUTE .COMPLEX Qty: 180 3RF Dose Instruction: TAKE 1 TABLET BY MOUTH TWICE A DAY Rx Instructions: TAKE 1 TABLET BY MOUTH TWICE A DAY Referrals / Follow Up: Harvinder Vaughan MD [Primary Care Provider] - Within 1 Week Disposition Disposition (needs filled in before D/C Order can be placed): Home, Self Care Charges/Coding Visit Charges Inpatient E&M: 39840 Disch Hosp >30min
--- NOTE | 2023-04-18 15:22 | PHA.DC.MR.R ---
Pharmacy [place] Med Reconciliation Pharmacy Service has performed discharge medication reconciliation for this patient. The patient's discharge medication list was reviewed for discrepancies and discrepancies were resolved. Medications at Discharge Home Medications fluoxetine 40 mg capsule (Prozac) 40 mg PO DAILY 07/04/18 acetaminophen 500 mg tablet (Tylenol Extra Strength) 500 mg PO Q6H PRN Pain 06/17/20 amlodipine 5 mg tablet 5 mg PO BID 03/17/21 multivitamin 1 tab PO DAILY 02/08/22 tizanidine 4 mg capsule 4 mg PO BID PRN muscle spasticity 02/08/22 clopidogrel 75 mg tablet 75 mg PO DAILY 05/05/22 nitroglycerin 0.4 mg sublingual tablet 0.4 mg sublingual Q5-15M PRN chest pain #25 tabs 05/26/22 rosuvastatin 10 mg tablet 10 mg PO QHS #90 tabs 11/24/22 lisinopril 10 mg tablet See Rx Instructions .Route .COMPLEX #180 tabs 03/02/23 oxycodone 5 mg tablet 5 mg PO Q6H PRN pain 04/16/23 propranolol 20 mg tablet 30 mg PO BID 04/16/23
--- NOTE | 2023-04-18 15:24 | DCINST_ITS ---
Discharge Instructions Diet Discharge Diet: Low fat / Low cholesterol Activity Discharge Activity: Return to Normal Activity Weight Bearing Status: Weight bearing as tolerated Dressing / Incision Call your doctor if you observe: Fever of 101 or Higher, Shortness of breath, Dizziness, Swelling in the ankles, Chest pain and Increased palpitations (irregular heartbeat) Follow Up Care Test Results: Test results from this visit will be discussed in further detail at your follow- up appointment, if applicable. Discharge Plan Admission Admit Date/Time: 04/16/23 14:47 Primary Reason for Your Visit: chest pain Attending Provider: Nini Brown Primary Care Provider: Harvinder Vaughan Consulting Providers: Juan Pike Discharge Orders/Prescriptions Prescriptions: Continued fluoxetine [Prozac] 40 mg capsule 40 mg PO DAILY Hold Instructions: until done with Zyvox Patient Comments: not taking while taking antibiotic linezolid acetaminophen [Tylenol Extra Strength] 500 mg tablet 500 mg PO Q6H PRN (Reason: Pain) tizanidine 4 mg capsule 4 mg PO BID PRN (Reason: muscle spasticity) nitroglycerin 0.4 mg tablet, sublingual 0.4 mg SUBLINGUAL Q5-15M PRN (Reason: chest pain) Qty: 25 1RF Rx Instructions: do not exceed 3 doses per episode multivitamin Tablet 1 tab PO DAILY oxycodone 5 mg tablet 5 mg PO Q6H PRN (Reason: pain) Patient Comments: TAKE 1 TO 2 TABLET BY MOUTH EVERY SIX HOURS NEEDED FOR PAIN propranolol 20 mg tablet 30 mg PO BID amlodipine 5 mg tablet 5 mg PO BID clopidogrel 75 mg tablet 75 mg PO DAILY rosuvastatin 10 mg tablet 10 mg PO QHS Qty: 90 3RF lisinopril 10 mg tablet See Rx Instructions .ROUTE .COMPLEX Qty: 180 3RF Dose Instruction: TAKE 1 TABLET BY MOUTH TWICE A DAY Rx Instructions: TAKE 1 TABLET BY MOUTH TWICE A DAY Referrals / Follow Up: Harvinder Vaughan MD [Primary Care Provider] - Within 1 Week Disposition Disposition (needs filled in before D/C Order can be placed): Home, Self Care
== END 2023-04-18 15:47 | disposition home or self-care (01) | DRG 313 ==
LOC: ED 15:05 → PCU 15:33
PROVIDERS: Physician Assistant; Admitting Provider Internal Medicine; Emergency Provider Student in an Organized Health Care Education/Training Program; PCP Family Medicine; Visit Provider Student in an Organized Health Care Education/Training Program
DX: R07.9 Chest pain, unspecified (principal); E78.5 Hyperlipidemia, unspecified; I10 Essential (primary) hypertension; I25.10 Atherosclerotic heart disease of native coronary artery without angina pectoris; Z87.891 Personal history of nicotine dependence; Z86.16 Personal history of COVID-19; Z82.3 Family history of stroke; Z95.5 Presence of coronary angioplasty implant and graft; R53.81 Other malaise
CPT/HCPCS: 36415; 71045; 78452; 80048; 80053; 82248; 83735; 84100; 84484; 85025; 85610; 93005; 93017; 97116; 97162; 97166; 99285; A9500; A4216; J2405; J2785

== ENCOUNTER → 2023-06-22 | Outpatient (CLI) | payer MEDICARE, OTHER, SELFPAY ==
--- NOTE | 2023-06-22 12:15 | RAD_ITS ---
STUDY: X-RAY - THORACIC SPINE REASON FOR EXAM: Male, 82 years old. THORACIC SPINE PAIN TECHNIQUE: 3 view(s) of the thoracic spine were obtained. COMPARISON: None. FINDINGS: Normal kyphosis of the thoracic spine. Mild dextroscoliosis. There is multilevel endplate spondylosis of the thoracic vertebrae. There is multilevel disc space narrowing of the thoracic spine. The soft tissue structures are unremarkable. RAD/Thoracic Spine 3 Views IMPRESSION: Mild dextroscoliosis with degenerative disc disease. Electronically Signed: Eze Oviedo MD at 22:34 EST ,
== END | disposition home or self-care (01) ==
LOC: RAD 12:11
PROVIDERS: PCP Family Medicine; Referring Provider Clinical Nurse Specialist Adult Health; Visit Provider Clinical Nurse Specialist Adult Health
DX: M54.6 Pain in thoracic spine (principal)
CPT/HCPCS: 72072

== ENCOUNTER → 2023-08-11 | Outpatient (CLI) | payer MEDICARE, OTHER, SELFPAY ==
--- NOTE | 2023-08-11 11:00 | RAD_ITS ---
STUDY: X-RAY - PELVIS AND LEFT HIP REASON FOR EXAM: Male, 83 years old. Unilateral primary osteoarthritis, left hip. TECHNIQUE: 3 views of the pelvis and left hip. COMPARISON: None. FINDINGS: There is a non-specific bowel gas pattern. There are calcified phleboliths in the left pelvis. Normal bilateral iliac wings, sacroiliac joints and visualized sacrum. Normal bilateral superior and inferior pubic rami. Normal pubic symphysis. Normal bilateral ischial tuberosities. There are osteoarthritic changes of the left femoral head with marginal osteophyte formation. There is mild osteoarthritic spur formation of the left acetabular rim. There is severe articular joint space narrowing of the left hip joint. There is a right hip arthroplasty in place, with no periprosthetic fracture. RAD/HIP, UNI W/ Pelvis 2-3 Views IMPRESSION: Severe degenerative arthrosis of the left hip joint. Right hip arthroplasty, with no periprosthetic fracture. Electronically Signed: Rony Crespo MD at 11:38 EDT ,
--- NOTE | 2023-08-11 11:00 | RAD_ITS ---
STUDY: X-RAY - LUMBAR SPINE REASON FOR EXAM: Male, 83 years old. Postlaminectomy syndrome, not elsewhere classified TECHNIQUE: 4 view(s) of the lumbar spine were obtained including oblique views. COMPARISON: Comparison is made with prior study dated March 13, 2023. FINDINGS: Normal lumbar lordosis. There is no substantial scoliosis. There is a normal alignment of the vertebrae. The patient is status post laminectomy from the L3 to the S1 vertebral level. Multilevel spondylosis. There is atherosclerotic calcification of the abdominal aorta without a demonstrated aneurysm. RAD/L/S Spine Min 4 Views IMPRESSION: Degenerative changes of the spine, as detailed above. Stable examination. Electronically Signed: Cb Vaughn MD at 8:50 EDT ,
== END | disposition home or self-care (01) ==
LOC: RAD 10:51
PROVIDERS: PCP Family Medicine; Referring Provider Anesthesiology Pain Medicine; Visit Provider Anesthesiology Pain Medicine
DX: M16.12 Unilateral primary osteoarthritis, left hip (principal); M96.1 Postlaminectomy syndrome, not elsewhere classified
CPT/HCPCS: 72110; 73502

== ENCOUNTER 2024-02-10 12:11 | Emergency (ER) | payer MEDICARE, OTHER, SELFPAY ==
[2024-02-10 12:12] VITALS: BP 122/82; PULSE 83; RESP 20; TEMP 36.1; O2SAT 98; BMI 28.3
--- NOTE | 2024-02-10 12:33 | EKG12_ITS ---
Test Reason : CP Blood Pressure : / mmHG Vent. Rate : 060 BPM Atrial Rate : 060 BPM P-R Int : 204 ms QRS Dur : 088 ms QT Int : 408 ms P-R-T Axes : 063 -01 044 degrees QTc Int : 408 ms Normal sinus rhythm Normal ECG Confirmed by Haroon Dewtit ([id number]), deputy editor in chief ETHAN SALAS ([id number]) on 02/12/2024 11:01:53 AM Referred By: MARVA/AMMY' Confirmed By:Haroon Dewitt
--- NOTE | 2024-02-10 12:42 | EDS_ITS ---
HPI History of Present Illness Chief Complaint: Chest Pain Informant: patient Onset/Context/Timing Onset: Today and Hours Activity at onset: gradual Timing: Continuous Quality: Positive for Aching Location: - (Across his chest and back. Also epigastric pain.) Current Severity: Mild Maximum Severity: Mild Worsened By: Nothing Relieved By: Nothing Associated Symptoms: Positive for Nausea and Dyspnea Narrative Narrative: 83-year-old male history of CAD with 1 cardiac stent, anemia, hypertension, diabetes and currently on Plavix. States that several hours ago around 10:30 AM he just really was not feeling well said he had mild nausea this morning and epigastric abdominal pain it is also known his chest and upper back. He denies any recent exertional chest pain or exertional dyspnea. Denies any fever or chills. Said he has a chronic cough that is not new or different. Also states he believes he has had black stool last 2 days. He has no history of GI bleed. No hematemesis. Prior Similar Symptoms: No Recent Illness/Hospitalization: No CVD Risk Factors: Positive for Hypertension PE Risk Factors: Negative for Recent Travel/Surgery, Recent Immobilization, Prior DVT or PE, Cancer or OCP + Smoking + >/=35 TAD Risk Factors: Negative for Marfan's Syndrome [facility] Medical History COVID-19 (~01/18/22) Sepsis due to urinary tract infection History of transesophageal echocardiography (VIOLETTE) Wears hearing aid Wears glasses Depression Anxiety Walker as ambulation aid Arthritis Indwelling urethral catheter present Low iron Easy bruising History of hiatal hernia Former smoker Chest pain History of tilt table evaluation Cardiology follow-up encounter History of echocardiogram History of stress test Enterococcus UTI H/O appendicitis Presence of stent in coronary artery (~09/08/10) Pure hypercholesterolemia Essential hypertension PTSD (post-traumatic stress disorder) Pulmonary hypertension Restless legs syndrome (RLS) REHAN (obstructive sleep apnea) Syncope and collapse Dizziness and giddiness Fatigue Shortness of breath Dyspnea Precordial chest pain 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 nursing home use of drug Atherosclerotic heart disease of [place] coronary artery without angina pectoris 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 Neck pain on left side Benign prostatic hypertrophy Coronary artery disease Home Medications ?Medication ?Instructions ?Recorded ?Last Taken ?Type fluoxetine 40 mg capsule (Prozac) 40 mg PO DAILY 07/04/18 07/13/21 History acetaminophen 500 mg tablet 500 mg PO Q6H PRN Pain 06/17/20 07/13/21 History (Tylenol Extra Strength) amlodipine 5 mg tablet 5 mg PO BID 03/17/21 07/14/21 History multivitamin 1 tab PO DAILY 02/08/22 Unknown History clopidogrel 75 mg tablet 75 mg PO DAILY 05/05/22 Unknown History nitroglycerin 0.4 mg sublingual 0.4 mg sublingual Q5-15M PRN chest 05/26/22 Unknown Rx tablet pain #25 tabs rosuvastatin 10 mg tablet 10 mg PO QHS #90 tabs 11/24/22 Unknown Rx lisinopril 10 mg tablet See Rx Instructions .Route 03/02/23 Unknown Rx .COMPLEX #180 tabs oxycodone 5 mg tablet 5 mg PO Q6H PRN pain 04/16/23 Unknown History propranolol 20 mg tablet 30 mg PO BID 04/16/23 Unknown History Allergy/AdvReac Type Severity Reaction Status Date / Time hydrocodone (From Vicodin) Allergy Other Verified 12/11/23 09:59 orphenadrine Allergy Unknown Verified 12/11/23 09:59 pregabalin Allergy Swelling Verified 12/11/23 09:59 atorvastatin (From Lipitor) AdvReac Severe Intolerance Verified 12/11/23 09:59 ,Myalgias Family History Father CVA (cerebral vascular accident) Mother Cardiomegaly Brother CAD (coronary artery disease) Hx CABG and valve replacement Diabetes Brother History of heart valve replacement Brother Rheumatic fever Sister Hypertension Aortic aneurysm H/O aortic valve replacement Brother Cancer bladder Brother Thyroid disorder Surgical History S/P TURP History of colonoscopy H/O heart artery stent History of right hip replacement Presence of coronary angioplasty implant and graft (~09/08/10) S/P right knee arthroscopy History of appendectomy hx cervical stenosis History of vasectomy History of hydrocelectomy Social History household members: spouse housing: house Smoking Status: Former smoker pack-years: 20 Tobacco: How many years used: 22 second hand exposure: No alcohol intake: never substance use type: does not use caffeine: Yes Type: carbonated beverages Number of servings: 1 and tea what type of physical activity do you participate in: none seatbelt use: always do you feel safe at home: Yes ROS ROS ED ROS Narrative Denies recent illness. Atypical epigastric and chest pain and back pain today. Possible black stool. Constitutional Constitutional ED: Denies fever(s) Eyes Eyes: Reports none ENT ENT ED: Denies ear pain Cardiovascular Cardiovascular: Reports chest pain; Denies palpitations or racing heartbeat Respiratory/Chest Respiratory/Chest: Reports cough Gastrointestinal Gastrointestinal: Reports abdominal pain and melena Genitourinary Genitourinary ED: Denies dysuria Musculoskeletal Musculoskeletal: Reports back pain; Denies arthralgias Integumentary Denies abscess Neurologic Neurologic: Denies headache(s) Psychiatric Psychiatric: Denies anxiety Endocrine Endocrinology: Denies cold intolerance Hematologic/Lymphatic Hematologic/Lymphatic: Denies easy bleeding Allergic/Immunologic Allergic/Immunologic ED: Denies mouth swelling EXAM Physical Exam Narrative Exam Narrative: 83-year-old male no acute distress. Sitting upright in bed. bedside. H EENT exam unremarkable. Neck nontender. Lungs clear to auscultation bilaterally. Heart regular rate rhythm rate about 60 no murmur. Chest wall ribs nontender. Abdomen soft mild epigastric and left upper quadrant tenderness. No rebound guarding or rigidity. No pulsatile mass. Right upper or right lower quadrant unremarkable. No hernia. No distention or obstruction. Moving all 4 extremities. Nontender no edema. Back nontender. He is awake and alert. No focal motor deficits. Const Vital Signs: 02/10/24 12:12 02/10/24 13:11 02/10/24 13:16 Temperature 96.9 F L Temperature Source Temporal Pulse Rate 83 57 L Respiratory Rate 20 H 16 Blood Pressure 122/82 H 163/74 H Blood Pressure Mean 95 103 Pulse Ox 98 98 Oxygen Delivery Method Room Air Room Air Room Air Positive well nourished and well developed; Negative for cachectic, contractures or unkempt General Appearance ED: well developed and NAD; Negative for unkempt, cachectic, contractures or pallor Nutritional Appearance: Negative for cachectic HEENT Reports moist mucous membranes normocephalic and atraumatic; Negative for trauma or tenderness Eyes PERRL and EOMs intact bilaterally General Eye ED: Negative for pale conjunctiva or scleral icterus Neck no lymphadenopathy, supple and no JVD General: Negative for tenderness Chest Wall inspection of chest normal and palpation of chest normal Chest: Negative for tenderness Resp normal respiratory effort and clear to auscultation bilaterally Effort and Inspection: Negative for respiratory distress Auscultation: Negative for rales, rhonchi, wheezes or diminished lung sounds Cardio regular rate, regular rhythm, S1 normal heart sound, S2 normal heart sound and no murmurs Rate: Negative for bradycardia or tachycardic Rhythm: Negative for abnormal rhythm GI normal to inspection, nondistended, normoactive bowel sounds, soft to palpation, non-distended and no masses; Negative for non-tender GI Narrative: Mild epigastric left upper quadrant tenderness. No rebound or rigidity. No pulsatile mass. Back/Spine no CVA tenderness and no thoracic nor lumbar tenderness General Back: Negative for CVA tenderness Cervical Spine: Negative for cervical spine tenderness Extremity normal to inspection General Extremety ED: Negative for edema, pulses abnormal or tenderness General Extremity: Negative for edema or pulses abnormal Neuro oriented x3 and CN's II-XII intact bilaterally Sensorium / Orientation: awake, alert, oriented to person, oriented to place and oriented to time Motor Exam: strength 5/5 throughout Psych mental status grossly normal Appearance: Negative for unkempt Attitude: No agitated Mood & Affect: Negative for depressed, anxious or tearful Skin no rashes or lesions noted and no wounds General Skin Exam: Negative for jaundice or pallor Rashes: No rashes noted Trauma: Negative for abrasion, laceration or puncture Heart Score History: Slightly/Non-Suspicious ECG: Normal Age: >/= 65 years Risk Factors: >/= 3 Risk Factors or History of CAD Troponin: </= Normal Limit Score: 4 MDM MDM MDM Narrative Medical decision making narrative: 83-year-old male with atypical chest and back pain that may be from possible GI source. If he truly has black stool this may be from stomach ulcer or GI bleed. Undergo cardiac workup. Repeat exam at 1:20 PM patient is doing well. Exam is benign and unchanged. I did do a rectal exam is got loose brown stool there is no melena or black stool. I went over test results of both he and his . There is no specific findings. He is chronically anemic and is actually blood counts are better than he normally runs. They are comfortable with him being discharged home with outpatient follow-up with his primary care physician at the [facility] in [facility]. History & Record Review Discussion w/independent historian: Patient Additional record(s) reviewed:: Prior inpatient record, Prior outpatient record, Prior ED visit and Prior labs Lab Data Attestation: I reviewed the patient's lab results. Lab results narrative: CBC show white count 8. H&H 12 and 36.1 which is his baseline. Is a chronic anemia. Platelets 317. Electrolytes show gap 5. Normal BUN of 14 creatinine of 1. Glucose 160. Troponin 6. Chest x-ray unremarkable. Chronic changes. Labs: Laboratory Results - last 24 hr 02/10/24 12:45 WBC 8.2 RBC 3.86 L Hgb 12.0 L Hct 36.1 L MCV 93.5 MCH 31.1 MCHC 33.2 RDW Std Deviation 43.8 RDW Coeff of Guido 12.8 Plt Count 317 MPV 9.3 Immature Gran % (Auto) 0.200 Neut % (Auto) 71.9 H Lymph % (Auto) 12.9 L Rice % (Auto) 9.8 Eos % (Auto) 4.2 Baso % (Auto) 1.0 Absolute Neuts (auto) 5.9 Absolute Lymphs (auto) 1.06 Nucleated RBC % 0 Sodium 139 Potassium 4.3 Chloride 106 Carbon Dioxide 28.0 Anion Gap 5 BUN 14 Creatinine 1.09 Estim Creat Clear Calc 64.29 Est GFR (MDRD) Af Amer 83 Est GFR (MDRD) Non-Af 69 BUN/Creatinine Ratio 12.8 Glucose 160 H Calcium 9.2 Troponin I High Sens 6 Radiography Chest X-Ray - ED: 1 View, Read by ED Physician, Normal, Heart, Mediastinum, Bony Structures, No Acute Disease and Chronic Changes Diagnostic Testing: Chest x-ray, portable, single view interpreted by myself shows no acute abnormality. Normal cardiac silhouette and lung hutson. Rhythm Strip Rhythm Strip: Sinus Rhythm Rate: 60 Ectopy: None EKG Initial EKG: Attestation: I personally reviewed and interpreted this EKG as follows: Interpretation: Sinus Rhythm and No Acute Injury Pattern Comments: Normal sinus rhythm rate is 60 no acute signs of MN or ischemia. No ST elevation or depression. Discharge Plan Triage Chief Complaint: Chest Pain ED Provider: David Doll Dx/Rx/DC Orders Clinical Impression: Atypical chest pain, History of diabetes mellitus, Chronic anemia Instructions: ED Chest Pain, Uncertain Cause Prescriptions: No Action fluoxetine [Prozac] 40 mg capsule 40 mg PO DAILY Patient Comments: not taking while taking antibiotic linezolid acetaminophen [Tylenol Extra Strength] 500 mg tablet 500 mg PO Q6H PRN (Reason: Pain) nitroglycerin 0.4 mg tablet, sublingual 0.4 mg SUBLINGUAL Q5-15M PRN (Reason: chest pain) Qty: 25 1RF Rx Instructions: do not exceed 3 doses per episode multivitamin Tablet 1 tab PO DAILY oxycodone 5 mg tablet 5 mg PO Q6H PRN (Reason: pain) Patient Comments: TAKE 1 TO 2 TABLET BY MOUTH EVERY SIX HOURS NEEDED FOR PAIN propranolol 20 mg tablet 30 mg PO BID amlodipine 5 mg tablet 5 mg PO BID clopidogrel 75 mg tablet 75 mg PO DAILY rosuvastatin 10 mg tablet 10 mg PO QHS Qty: 90 3RF lisinopril 10 mg tablet See Rx Instructions .ROUTE .COMPLEX Qty: 180 3RF Dose Instruction: TAKE 1 TABLET BY MOUTH TWICE A DAY Rx Instructions: TAKE 1 TABLET BY MOUTH TWICE A DAY Primary Care Provider: Harvinder Vaughan Referrals: Harvinder Vaughan MD [Primary Care Provider] - 3-5 Days if not improving Activity Restrictions/Additional Instructions: Follow-up with your doctor if not improving. Return if feeling worse. Your test today were unremarkable. Print Language: Wolof Disposition Disposition: Home, Self Care
--- NOTE | 2024-02-10 12:55 | RAD_ITS ---
EXAM: XR CHEST, 1 VIEW CLINICAL INDICATION: Chest pain. TECHNIQUE: Frontal view of the chest. COMPARISON: 04/16/2023. FINDINGS: LUNGS AND PLEURAL SPACES: Unremarkable. No consolidation or edema. No pneumothorax. No effusion. HEART: Unremarkable. Cardiac silhouette not enlarged. MEDIASTINUM: Central airways and mediastinal contour are unremarkable. BONES/JOINTS: Unremarkable. No acute fracture. SOFT TISSUES: Unremarkable. RAD/Chest 1 View (Portable) IMPRESSION: No radiographic evidence of acute cardiopulmonary disease and unchanged when compared to 04/16/2023. Electronically Signed: Bob Dawson MD at 13:54 EDT ,
[2024-02-10 12:56] LABS: Absolute Lymphocyte Count 1.06 X10^3/uL (0.83-4.51); Absolute Neutrophil Count 5.9 X10^3/uL (2.0-7.7); Basophil# 0.08 X10^3/uL; Eosinophil# 0.34 X10^3/uL; Eosinophils% 4.2 % (0-5); Hematocrit 36.1 % (40-54); Lymphocyte # 1.06 X10^3/ul (0.83-4.51); Lymphocyte % 12.9 % (19-41); Mean Corp Hgb Conc 33.2 g/dL (32-36); Mean Corpuscular Hgb 31.1 pg (27.0-32.0); Mean Corpuscular Volume 93.5 fL (80-94); Mean Platelet Vol. 9.3 fl (6.2-12.0); Monocyte% 9.8 % (0-10); NRBC Flagged by Analyzer 0 % (0-5); Neutrophil # 5.89 X10^3/uL (2.7-7.7); Neutrophil % 71.9 % (47-70); Platelet Count 317 K/mm3 (150-450); RBC Distribution Width CV 12.8 % (11.6-14.6); RBC Distribution Width SD 43.8 fl (35.1-43.9); Red Blood Count 3.86 M/mm3 (4.6-6.2); White Blood Count 8.2 K/mm3 (4.4-11.0)
[2024-02-10 13:11] VITALS: BP 163/74; PULSE 57; RESP 16; O2SAT 98
[2024-02-10 13:11] LABS: Anion Gap 5 (5-15); BUN 14 mg/dL (7-18); BUN/Creat Ratio 12.8 RATIO (10-20); Calcium,Total 9.2 mg/dL (8.5-10.1); Chloride 106 mmol/L (98-107); Creatinine, Serum 1.09 mg/dL (0.70-1.30); EST Glomerular Filtration Rate 69 mL/min (>60); Est Glom Filt Rate - Afr Amer 83 mL/min (>60); Estimated Creatinine Clearance 64.29 ml/min; Glucose 160 mg/dL (74-106); Potassium 4.3 mmol/L (3.5-5.1); Sodium Level 139 mmol/L (136-145)
[2024-02-10 13:26] VITALS: BP 163/74; PULSE 57; RESP 16; TEMP 36.7; O2SAT 95
[2024-02-10 14:05] LABS: Troponin-I HS (w/2H Reflex) 6 pg/mL (3.0-78.0)
== END 2024-02-10 13:34 | disposition home or self-care (01) ==
PROVIDERS: Emergency Provider Emergency Medicine; PCP Family Medicine; Visit Provider Emergency Medicine
DX: R07.89 Other chest pain (principal); E11.9 Type 2 diabetes mellitus without complications; I10 Essential (primary) hypertension; Z87.891 Personal history of nicotine dependence; M54.9 Dorsalgia, unspecified; R11.0 Nausea; Z95.5 Presence of coronary angioplasty implant and graft; E78.00 Pure hypercholesterolemia, unspecified; I25.10 Atherosclerotic heart disease of native coronary artery without angina pectoris; Z79.02 Long term (current) use of antithrombotics/antiplatelets; D64.9 Anemia, unspecified
CPT/HCPCS: 71045; 80048; 84484; 85025; 93005; 99284; A4216

== ENCOUNTER 2024-07-28 10:18 | Observation (INO) | payer MEDICARE, OTHER, SELFPAY ==
[2024-07-28] VITALS (10 sets, daily range): BP systolic 139–157; BP diastolic 57–80; PULSE 51–63; RESP 12–16; TEMP 36.4–36.8; O2SAT 97–100; BMI 28.8; BMI 28.3
--- NOTE | 2024-07-28 10:23 | EKG12_ITS ---
Test Reason : SOB Blood Pressure : */* mmHG Vent. Rate : 57 BPM Atrial Rate : 57 BPM P-R Int : 204 ms QRS Dur : 86 ms QT Int : 424 ms P-R-T Axes : 62 -3 42 degrees QTcB Int : 412 ms Sinus bradycardia Otherwise normal ECG Confirmed by Haroon Dewitt ([id number]), technical writer and editor ETHAN SALAS ([id number]) on 07/29/2024 11:03:02 AM Referred By: Confirmed By: Haroon Dewitt
--- NOTE | 2024-07-28 10:25 | RAD_ITS ---
PROCEDURE: CHEST 1 VIEW (PORTABLE) REASON FOR EXAM: 84-year-old male, mid sternal chest pain with left-sided radiation x2 days. TECHNIQUE: Frontal view of the chest. COMPARISON: Chest radiograph 02/10/2024. FINDINGS: The heart size is normal. Mild bibasilar atelectasis/scarring. No focal consolidation, pleural effusion or pneumothorax. Degenerative changes are identified within the thoracic spine. RAD/Chest 1 View (Portable) IMPRESSION: NEGATIVE CHEST. Reading Location: [id number]
--- NOTE | 2024-07-28 10:34 | ED.VIS.CHEST ---
HPI History of Present Illness Chief Complaint: Chest Pain Informant: patient Onset/Context/Timing Onset: Days Activity at onset: gradual Timing: 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 Quality: Positive for Aching Location: Substernal Current Severity: Gone Maximum Severity: Mild Worsened By: Exertion Relieved By: Rest Associated Symptoms: Positive for Nausea, Dyspnea and Cough; Negative for Diaphoresis, Fever, Lightheadedness, Acid Reflux or Palpitations Narrative Narrative: 84-year-old male history of high cholesterol, CAD with 1 stent on Plavix and history of hypertension. States has had intermittent chest pain substernal sometimes goes in his back since . Comes and goes. He believes is worse with walking. Mild shortness of breath and nausea. Better at rest. Denies fever. No vomiting or diarrhea. recent URI that he has since picked up. No fever. Prior Similar Symptoms: Yes Recent Illness/Hospitalization: No CVD Risk Factors: Positive for Hypertension; Negative for Diabetes PE Risk Factors: Negative for Recent Travel/Surgery, Recent Immobilization, Prior DVT or PE, Cancer or OCP + Smoking + >/=35 TAD Risk Factors: Negative for Marfan's Syndrome PFSH PFS Medical History COVID-19 (~01/18/22) Sepsis due to urinary tract infection History of transesophageal echocardiography (VIOLETTE) Wears hearing aid Wears glasses Depression Anxiety Walker as ambulation aid Arthritis Indwelling urethral catheter present Low iron Easy bruising History of hiatal hernia Former smoker Chest pain History of tilt table evaluation Cardiology follow-up encounter History of echocardiogram History of stress test Enterococcus UTI H/O appendicitis Presence of stent in coronary artery (~09/08/10) Pure hypercholesterolemia Essential hypertension PTSD (post-traumatic stress disorder) Pulmonary hypertension Restless legs syndrome (RLS) REHAN (obstructive sleep apnea) Syncope and collapse Dizziness and giddiness Fatigue Shortness of breath Dyspnea Precordial chest pain 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 Atherosclerotic heart disease of [place] coronary artery without angina pectoris 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 Neck pain on left side Benign prostatic hypertrophy Coronary artery disease Home Medications ?Medication ?Instructions ?Recorded ?Last Taken ?Type fluoxetine 40 mg capsule (Prozac) 40 mg PO DAILY 07/04/18 07/13/21 History acetaminophen 500 mg tablet 500 mg PO Q6H PRN Pain 06/17/20 07/13/21 History (Tylenol Extra Strength) amlodipine 5 mg tablet 5 mg PO BID 03/17/21 07/14/21 History multivitamin 1 tab PO DAILY 02/08/22 Unknown History clopidogrel 75 mg tablet 75 mg PO DAILY 05/05/22 Unknown History nitroglycerin 0.4 mg sublingual 0.4 mg sublingual Q5-15M PRN chest 05/26/22 Unknown Rx tablet pain #25 tabs rosuvastatin 10 mg tablet 10 mg PO QHS #90 tabs 11/24/22 Unknown Rx oxycodone 5 mg tablet 5 mg PO Q6H PRN pain 04/16/23 Unknown History propranolol 20 mg tablet 30 mg PO BID 04/16/23 Unknown History lisinopril 10 mg tablet 10 mg PO BID #180 TABLETS 04/11/24 Unknown Rx Allergy/AdvReac Type Severity Reaction Status Date / Time hydrocodone (From Vicodin) Allergy Other Verified 07/28/24 10:20 orphenadrine Allergy Unknown Verified 07/28/24 10:20 pregabalin Allergy Swelling Verified 07/28/24 10:20 atorvastatin (From Lipitor) AdvReac Severe Intolerance Verified 07/28/24 10:20 ,Myalgias Family History Father CVA (cerebral vascular accident) Mother Cardiomegaly Brother CAD (coronary artery disease) Hx CABG and valve replacement Diabetes Brother History of heart valve replacement Brother Rheumatic fever Sister Hypertension Aortic aneurysm H/O aortic valve replacement Brother Cancer bladder Brother Thyroid disorder Surgical History S/P TURP History of colonoscopy H/O heart artery stent History of right hip replacement Presence of coronary angioplasty implant and graft (~09/08/10) S/P right knee arthroscopy History of appendectomy hx cervical stenosis History of vasectomy History of hydrocelectomy Social History household members: spouse housing: house Smoking Status: Former smoker pack-years: 20 Tobacco: How many years used: 22 second hand exposure: No alcohol intake: never substance use type: does not use caffeine: Yes Type: carbonated beverages Number of servings: 1 and tea what type of physical activity do you participate in: none seatbelt use: always do you feel safe at home: Yes ROS ROS ED ROS Narrative Chest pain. Mild cough. Constitutional Constitutional ED: Denies chills or fever(s) Eyes Eyes: Reports none ENT ENT ED: Denies ear pain or rhinorrhea Cardiovascular Cardiovascular: Reports as per HPI and chest pain; Denies palpitations or racing heartbeat Respiratory/Chest Respiratory/Chest: Reports cough Gastrointestinal Gastrointestinal: Denies abdominal pain Genitourinary Genitourinary ED: Denies dysuria or hematuria Musculoskeletal Musculoskeletal: Denies arthralgias Integumentary Denies abscess Neurologic Neurologic: Denies headache(s) Psychiatric Psychiatric: Denies anxiety Endocrine Endocrinology: Denies cold intolerance Hematologic/Lymphatic Hematologic/Lymphatic: Denies easy bleeding, easy bruising or lymphadenopathy Allergic/Immunologic Allergic/Immunologic ED: Denies mouth swelling, tongue swelling or urticaria EXAM Physical Exam Narrative Exam Narrative: Well-appearing 84-year-old male sitting upright in bed. at bedside. Vital signs are stable afebrile. He does not look septic toxic or dehydrated. He is in no distress. H EENT exam pupils round reactive light. Moist mucous membranes. Hearing aid in his ears. Neck nontender no lymphadenopathy. Trachea midline. Lungs clear to auscultation bilaterally. Heart regular rate and rhythm rate about 60 no murmur. Chest wall ribs nontender. No reproducible pain. Abdomen soft nontender. No peritoneal signs. Pelvic girdle intact. Moving all 4 extremities. Equal symmetrical radial pulses. 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 Dorsi plantarflexion intact. Calves nontender without edema or cords. Neurologically is awake and alert. Answering questions following commands. He is hard of hearing. Const Vital Signs: 07/28/24 10:19 07/28/24 10:34 07/28/24 11:18 Temperature 98.1 F Temperature Source Temporal Pulse Rate 63 54 L Respiratory Rate 15 15 Blood Pressure 147/80 H 139/61 H Blood Pressure Mean 102 87 Pulse Ox 100 98 Oxygen Delivery Method Room Air Room Air Room Air Positive well nourished and well developed; Negative for obese, cachectic, contractures or unkempt General Appearance ED: well developed and NAD; Negative for unkempt, cachectic, contractures or pallor Nutritional Appearance: Negative for cachectic or obese HEENT Reports moist mucous membranes; Denies dry mucous membranes normocephalic and atraumatic; Negative for trauma or tenderness Mouth ED: No dry mucous membranes Mouth: No dry mucous membranes Eyes PERRL and EOMs intact bilaterally General Eye ED: Negative for pale conjunctiva or scleral icterus Neck no lymphadenopathy, supple and no JVD General: Negative for tenderness Chest Wall inspection of chest normal and palpation of chest normal Resp normal respiratory effort and clear to auscultation bilaterally Effort and Inspection: Negative for respiratory distress Auscultation: Negative for rales, rhonchi, wheezes or diminished lung sounds Cardio regular rate, regular rhythm, S1 normal heart sound, S2 normal heart sound and no murmurs Rate: Negative for bradycardia or tachycardic Rhythm: Negative for abnormal rhythm Peripheral Pulses: pulses 2+ throughout GI normal to inspection, nondistended, normoactive bowel sounds, soft to palpation, non-tender, non-distended and no masses Back/Spine no CVA tenderness and no thoracic nor lumbar tenderness General Back: Negative for CVA tenderness Cervical Spine: Negative for cervical spine tenderness Extremity normal to inspection General Extremety ED: Negative for edema, pulses abnormal or tenderness General Extremity: Negative for edema or pulses abnormal Neuro oriented x3 and CN's II-XII intact bilaterally Sensorium / Orientation: awake, alert, oriented to person, oriented to place and oriented to time; Negative for confused, lethargic or stuporous Motor Exam: strength 5/5 throughout Psych mental status grossly normal Appearance: Negative for unkempt Attitude: No agitated Mood & Affect: Negative for depressed, anxious or tearful Skin no rashes or lesions noted and no wounds General Skin Exam: Negative for jaundice or pallor Rashes: No rashes noted Trauma: Negative for abrasion or laceration Heart Score History: Moderately Suspicious ECG: Normal Age: >/= 65 years Risk Factors: >/= 3 Risk Factors or History of CAD Troponin: </= Normal Limit Score: 5 MDM MDM MDM Narrative Medical decision making narrative: 84-year-old male with nonreproducible chest pain intermittently for 3 days. Undergo cardiac workup. He has a known history of CAD. He is on Plavix. Repeat exam at 11:55 AM. Patient is doing well. I went over test results of both he and his . His history is concerning he is having pain worse with exertion better at rest he has known cardiac disease with a stent. I do not think this is a viral illness. And is not reproducible. He will be admitted for further evaluation and workup. I did add the 2 and 4-hour troponin to his labs. Hospitalist on page. History & Record Review Discussion w/independent historian: Patient Lab Data Attestation: I reviewed the patient's lab results. Lab results narrative: CBC shows a white count 9. H&H 12.6 and 37. Platelets 353. Chemistries show a gap 11. Normal BUN of 13 creatinine 1.1. Glucose 181. Initial troponins elevated at 23. Labs: Laboratory Results - last 24 hr 07/28/24 10:40 WBC 9.6 RBC 3.98 L Hgb 12.6 L Hct 37.5 L MCV 94.2 H MCH 31.7 MCHC 33.6 RDW Std Deviation 45.2 H RDW Coeff of Guido 13.1 Plt Count 353 MPV 9.6 Immature Gran % (Auto) 0.200 Neut % (Auto) 76.6 H Lymph % (Auto) 12.4 L Burke % (Auto) 6.0 Eos % (Auto) 3.9 Baso % (Auto) 0.9 Absolute Neuts (auto) 7.4 Absolute Lymphs (auto) 1.19 Nucleated RBC % 0 Sodium 136 Potassium 3.9 Chloride 100 Carbon Dioxide 24.3 Anion Gap 11 BUN 13 Creatinine 1.12 Estim Creat Clear Calc 61.84 Est GFR (MDRD) Non-Af 65 BUN/Creatinine Ratio 11.3 Glucose 181 H Calcium 9.3 Troponin T High Sens 23 H Radiography Chest X-Ray - ED: 1 View, Read by ED Physician, Normal, Heart, Lungs, Mediastinum, Bony Structures, No Acute Disease and Chronic Changes Diagnostic Testing: Clinical Impression(s) from Imaging Studies Chest X-Ray 07/28/24 10:25 IMPRESSION: NEGATIVE CHEST. Reading Location: [facility] Chest x-ray, portable, 2 films, interpreted by myself shows normal cardiac silhouette. Normal lung hutson. No acute process. Chronic changes. Rhythm Strip Rhythm Strip: Sinus bradycardia Rate: 57 Ectopy: None EKG Initial EKG: Attestation: I personally reviewed and interpreted this EKG as follows: Interpretation: No Acute Injury Pattern and Sinus Bradycardia Comments: Sinus bradycardia rate of 57 no acute signs of CO or ischemia. No dysrhythmia. Discharge Plan Triage Chief Complaint: Chest Pain ED Provider: David Doll Dx/Rx/DC Orders Clinical Impression: Chest pain, History of CAD (coronary artery disease) Prescriptions: No Action fluoxetine [Prozac] 40 mg capsule 40 mg PO DAILY Patient Comments: not taking while taking antibiotic linezolid acetaminophen [Tylenol Extra Strength] 500 mg tablet 500 mg PO Q6H PRN (Reason: Pain) nitroglycerin 0.4 mg tablet, sublingual 0.4 mg SUBLINGUAL Q5-15M PRN (Reason: chest pain) Qty: 25 1RF Rx Instructions: do not exceed 3 doses per episode multivitamin Tablet 1 tab PO DAILY oxycodone 5 mg tablet 5 mg PO Q6H PRN (Reason: pain) Patient Comments: TAKE 1 TO 2 TABLET BY MOUTH EVERY SIX HOURS NEEDED FOR PAIN propranolol 20 mg tablet 30 mg PO BID amlodipine 5 mg tablet 5 mg PO BID clopidogrel 75 mg tablet 75 mg PO DAILY rosuvastatin 10 mg tablet 10 mg PO QHS Qty: 90 3RF lisinopril 10 mg tablet 10 mg PO BID Qty: 180 3RF Primary Care Provider: Harvinder Vaughan Referrals: Harvinder Vaughan MD [Primary Care Provider] - Print Language: Sami Disposition Disposition: Acute Care Hospital [facility]
[2024-07-28 10:48] LABS: Absolute Lymphocyte Count 1.19 X10^3/uL (0.83-4.51); Absolute Neutrophil Count 7.4 X10^3/uL (2.0-7.7); Basophil# 0.09 X10^3/uL; Basophil% 0.9 % (0-1); Eosinophil# 0.38 X10^3/uL; Eosinophils% 3.9 % (0-5); Hematocrit 37.5 % (40-54); Hemoglobin 12.6 g/dL (13.0-16.5); Lymphocyte # 1.19 X10^3/ul (0.83-4.51); Lymphocyte % 12.4 % (19-41); Mean Corp Hgb Conc 33.6 g/dL (32-36); Mean Corpuscular Hgb 31.7 pg (27.0-32.0); Mean Corpuscular Volume 94.2 fL (80-94); Mean Platelet Vol. 9.6 fl (6.2-12.0); Monocyte# 0.58 X10^3/uL; NRBC Flagged by Analyzer 0 % (0-5); Neutrophil # 7.37 X10^3/uL (2.7-7.7); Neutrophil % 76.6 % (47-70); Platelet Count 353 K/mm3 (150-450); RBC Distribution Width CV 13.1 % (11.6-14.6); RBC Distribution Width SD 45.2 fl (35.1-43.9); Red Blood Count 3.98 M/mm3 (4.6-6.2); White Blood Count 9.6 K/mm3 (4.4-11.0)
[2024-07-28 11:17] LABS: Anion Gap 11 (5-15); BUN 13 mg/dL (4-19); BUN/Creat Ratio 11.3 RATIO (10-20); Calcium,Total 9.3 mg/dL (7.6-11.0); Carbon Dioxide 24.3 mmol/L (21.0-32.0); Chloride 100 mmol/L (98-108); Creatinine, Serum 1.12 mg/dL (0.70-1.20); EST Glomerular Filtration Rate 65 (>60); Estimated Creatinine Clearance 61.84 ml/min (50-250); Glucose 181 mg/dL (70-99); Potassium 3.9 mmol/L (3.3-5.1); Sodium Level 136 mmol/L (133-145); Troponin T High Sensitivity 23 ng/L (<=22)
--- NOTE | 2024-07-28 12:20 | CASEMGMT ---
Care Management Face to Face with patient for initial transition planning/care coordination assessment in the ED.? This typewriter tester introduced self and role at [facility]. Patient alert and oriented. Patient willing to participate in assessment and is able to answer all questions appropriately.? Care providers, pharmacy, and demographics verified. Patient?s , Marika, also present and assisted when needed. Admitting Diagnosis: Chest Pain Other diagnosis history: Including but may not be limited to: CAD with a stent, Arthritis, Low iron, HTN, RLS, and REHAN. PCP: Dr. Harvinder Vaughan Specialists: Neurology: BRIE Weldon, Urologist: Dr. Ibarra, Pain Management: Dr. Tristan and Cardiology: BRIE Santos. Preferred Pharmacy: [facility] in [place]. Alternate: [facility]. Insurance: [facility] Supplemental. Prescription Benefit: Yes, through [facility] Will/HPOA: ?Yes; social service manager asked patient?s to bring in a copy the next time she comes in which she stated she will do. LNOK: Patient?s , Marika.? Patient also has a son and a daughter, both who were described as supports. Patient?s son lives closer. Living Arrangements: Patient lives with his in a one-story home.? No environmental barriers identified.? Patient has 2 steps leading in/out of the house which patient is able to navigate without difficulty. Transportation: Patient and patient?s both still drive. DME: Patient wears hearing aids, has a quad cane, standard walker, rollator, BSC, 2 grab bars in the shower, a HHS and a shower chair. HHC: None previously and not needed. SNF/Rehab: No previous history of. Community Resources: [facility] History: PTSD (patient is a ), anxiety and depression. Patient goals: Patient wishes to discharge home, denies need for home health care at this time. Patient denies any further needs or concerns at this time. Disposition Plan: admission to acute; RN CM/SW to follow for discharge planning needs that may arise. Radha Bojorquez, COMPUTER PROGRAMMER, FRONT DESK HOST
[2024-07-28 13:01] LABS: Troponin T High Sens 2 HR 24 ng/L (<=22)
--- NOTE | 2024-07-28 15:52 | EKG12_ITS ---
Test Reason : CP ADMIT Blood Pressure : */* mmHG Vent. Rate : 53 BPM Atrial Rate : 53 BPM P-R Int : 204 ms QRS Dur : 86 ms QT Int : 458 ms P-R-T Axes : 60 -6 36 degrees QTcB Int : 429 ms Sinus bradycardia Otherwise normal ECG When compared with ECG of 28-Jul-2024 10:42, MANUAL COMPARISON REQUIRED DATA IS UNCONFIRMED Confirmed by Haroon Dewitt ([id number]), website/blog editor NARAYAN ERAZO ([id number]) on 07/29/2024 1:05:51 PM Referred By: MALDONADO Confirmed By: Haroon Dewitt
--- NOTE | 2024-07-28 16:27 | PCM.HP.STD ---
HPI - General General Date of Admission: 07/28/24 Date of Service: 07/28/24 Chief Complaint: chest pain HPI Narrative NARESH MONZON, is a 84 M with a past medical history as outlined which includes history of CAD s/p stent x 1 was admitted through the ED on 07/28/2024 with a complaint of chest pain. He said that he and his had recently had upper respiratory symptoms with some cough and congestion and mild shortness of breath. However these had resolved but he subsequently started having this chest pain. He described the pain as pressure-like and said it radiated to his back. However per his he had chronic back pain and patient said the back pain was similar to his chronic back pain. He had no aggravating or relieving factors and said even though he usually had nitro on him he had not taken any nitro for the chest pain. He denied any fever or chills, lightheadedness or dizziness, palpitations, nausea vomiting or any other symptoms. Review of symptoms otherwise negative. Vitals in the ED were blood pressure of 156/57, pulse rate of 51, respiratory rate of 16 and temp of 97.6 Fahrenheit. He was saturating at 100% on room air. CBC showed hemoglobin of 12.6 with WBC of 9.6 and platelets of 353. Chemistry showed sodium of 136 with potassium of 3.9 and bicarb of 24.3. Anion gap was 11. Creatinine was 1.12. Initial troponin was 23 and delta troponin was only 24. Chest x-ray showed no acute cardiopulmonary pathology and EKG showed no acute ST changes. He has been admitted to be managed for chest pain to rule out ACS. [facility] Medical History COVID-19 (~01/18/22) Sepsis due to urinary tract infection History of transesophageal echocardiography (VIOLETTE) Wears hearing aid Wears glasses Depression Anxiety Walker as ambulation aid Arthritis Indwelling urethral catheter present Low iron Easy bruising History of hiatal hernia Former smoker Chest pain History of tilt table evaluation Cardiology follow-up encounter History of echocardiogram History of stress test Enterococcus UTI H/O appendicitis Presence of stent in coronary artery (~09/08/10) Pure hypercholesterolemia Essential hypertension PTSD (post-traumatic stress disorder) Pulmonary hypertension Restless legs syndrome (RLS) REHAN (obstructive sleep apnea) Syncope and collapse Dizziness and giddiness Fatigue Shortness of breath Dyspnea Precordial chest pain 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 intermediate use of drug Atherosclerotic heart disease of [place] coronary artery without angina pectoris 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 Neck pain on left side Benign prostatic hypertrophy Coronary artery disease Home Medications ?Medication ?Instructions ?Recorded ?Last Taken ?Type fluoxetine 40 mg capsule (Prozac) 40 mg PO DAILY 07/04/18 07/13/21 History acetaminophen 500 mg tablet 500 mg PO Q6H PRN Pain 06/17/20 07/13/21 History (Tylenol Extra Strength) amlodipine 5 mg tablet 5 mg PO BID 03/17/21 07/14/21 History multivitamin 1 tab PO DAILY 02/08/22 Unknown History clopidogrel 75 mg tablet 75 mg PO DAILY 05/05/22 Unknown History nitroglycerin 0.4 mg sublingual 0.4 mg sublingual Q5-15M PRN chest 05/26/22 Unknown Rx tablet pain #25 tabs rosuvastatin 10 mg tablet 10 mg PO QHS #90 tabs 11/24/22 Unknown Rx oxycodone 5 mg tablet 5 mg PO Q6H PRN pain 04/16/23 Unknown History propranolol 20 mg tablet 30 mg PO BID 04/16/23 Unknown History lisinopril 10 mg tablet 10 mg PO BID #180 TABLETS 04/11/24 Unknown Rx Allergy/AdvReac Type Severity Reaction Status Date / Time hydrocodone (From Vicodin) Allergy Other Verified 07/28/24 10:20 orphenadrine Allergy Unknown Verified 07/28/24 10:20 pregabalin Allergy Swelling Verified 07/28/24 10:20 atorvastatin (From Lipitor) AdvReac Severe Intolerance Verified 07/28/24 10:20 ,Myalgias Family History Father CVA (cerebral vascular accident) Mother Cardiomegaly Brother CAD (coronary artery disease) Hx CABG and valve replacement Diabetes Brother History of heart valve replacement Brother Rheumatic fever Sister Hypertension Aortic aneurysm H/O aortic valve replacement Brother Cancer bladder Brother Thyroid disorder Surgical History S/P TURP History of colonoscopy H/O heart artery stent History of right hip replacement Presence of coronary angioplasty implant and graft (~09/08/10) S/P right knee arthroscopy History of appendectomy hx cervical stenosis History of vasectomy History of hydrocelectomy Social History household members: spouse housing: house Smoking Status: Former smoker pack-years: 20 Tobacco: How many years used: 22 second hand exposure: No alcohol intake: never substance use type: does not use caffeine: Yes Type: carbonated beverages Number of servings: 1 and tea what type of physical activity do you participate in: none seatbelt use: always do you feel safe at home: Yes ROS Constitutional Constitutional: Reports fatigue, malaise and weakness; Denies anorexia, chills or fever(s) Eyes Eyes: Denies change in vision ENT HEENT: Denies dysphagia, headache(s) or sore throat Cardiovascular Cardiovascular: Reports chest pain; Denies dyspnea on exertion, edema, lightheadedness, orthopnea, palpitations, paroxysmal nocturnal dyspnea or rapid heart rate Respiratory/Chest Respiratory/Chest: Denies cough, dyspnea, shortness of breath at rest or shortness of breath with exertion Gastrointestinal Gastrointestinal: Denies abdominal pain, constipation, diarrhea, nausea or vomiting Genitourinary Genitourinary: Denies dysuria Musculoskeletal Musculoskeletal: Denies arthralgias or back pain Neurologic Neurologic: Denies confusion, dizziness, focal weakness, headache(s), numbness or seizures Psychiatric Psychiatric: Denies anxiety or depression Vital Signs Vital Signs Vital Signs: 07/28/24 10:19 07/28/24 10:34 07/28/24 11:18 Temperature 98.1 F Temperature Source Temporal Pulse Rate 63 54 L Respiratory Rate 15 15 Respiratory Effort Respiratory Depth Respiratory Pattern Blood Pressure 147/80 H 139/61 H Blood Pressure Mean 102 87 Blood Pressure Source Blood Pressure Position Blood Pressure Location Pulse Ox 100 98 Oxygen Delivery Method Room Air Room Air Room Air 07/28/24 12:00 07/28/24 12:03 07/28/24 13:00 Temperature 98.1 F Temperature Source Pulse Rate 54 L 54 L 52 L Respiratory Rate 14 14 12 Respiratory Effort Respiratory Depth Respiratory Pattern Blood Pressure 149/65 H 149/65 H 148/69 H Blood Pressure Mean 93 93 95 Blood Pressure Source Blood Pressure Position Blood Pressure Location Pulse Ox 98 98 99 Oxygen Delivery Method Room Air Room Air 07/28/24 14:00 07/28/24 15:30 07/28/24 15:42 Temperature Temperature Source Pulse Rate 53 L 56 L 51 L Respiratory Rate 13 Respiratory Effort Normal Non-Labored Respiratory Depth Normal Respiratory Pattern Normal Blood Pressure 146/65 H Blood Pressure Mean 92 Blood Pressure Source Blood Pressure Position Blood Pressure Location Pulse Ox 100 Oxygen Delivery Method Room Air Room Air 07/28/24 15:45 Temperature 97.6 F L Temperature Source Oral Pulse Rate 51 L Respiratory Rate 16 Respiratory Effort Respiratory Depth Respiratory Pattern Blood Pressure 156/57 H Blood Pressure Mean 90 Blood Pressure Source Monitor Blood Pressure Position Semi-Fowlers Blood Pressure Location Right Arm Pulse Ox 100 Oxygen Delivery Method Room Air Weight Weight: 215 lb Body Mass Index (BMI) 28.3 Physical Exam Const alert, oriented x3 and no apparent distress Constitutional Narrative: elderly male, frail General Appearance: cooperative HEENT normocephalic, head/scalp atraumatic, hearing grossly normal bilaterally, moist oral mucous membranes and oropharynx normal Mouth: oral and palatal mucosa normal Eyes PERRL, EOMs intact bilaterally and conjunctivae normal Neck no lymphadenopathy and supple Resp normal respiratory effort and clear to auscultation bilaterally Cardio regular rate, regular rhythm, S1 normal heart sound, S2 normal heart sound and no murmurs GI normal to inspection, nondistended, normoactive bowel sounds, soft to palpation, non-tender and non-distended Extremity normal to inspection, full ROM and no clubbing, cyanosis or edema Neuro oriented x3, CN's II-XII intact bilaterally, moves all extremities and no focal motor deficits Sensorium / Orientation: awake and alert Motor Exam: strength 5/5 throughout Psych affect normal Results Lab / Micro Data 07/28/24 10:40 07/28/24 10:40 Labs: Laboratory Results - last 24 hr 07/28/24 10:40: WBC 9.6, RBC 3.98 L, Hgb 12.6 L, Hct 37.5 L, MCV 94.2 H, MCH 31.7, MCHC 33.6, RDW Std Deviation 45.2 H, RDW Coeff of Guido 13.1, Plt Count 353, MPV 9.6, Immature Gran % (Auto) 0.200, Neut % (Auto) 76.6 H, Lymph % (Auto) 12.4 L, [place] % (Auto) 6.0, Eos % (Auto) 3.9, Baso % (Auto) 0.9, Absolute Neuts (auto) 7.4, Absolute Lymphs (auto) 1.19, Nucleated RBC % 0, Sodium 136, Potassium 3.9, Chloride 100, Carbon Dioxide 24.3, Anion Gap 11, BUN 13, Creatinine 1.12, Estim Creat Clear Calc 61.84, Est GFR (MDRD) Non-Af 65, BUN/Creatinine Ratio 11.3, Glucose 181 H, Calcium 9.3, Troponin T High Sens 23 H 07/28/24 12:38: Troponin T Hi Sens 2 Hr 24 H Micro: Microbiology 07/28/24 10:37 Mucosa - Nose SARS-CoV-2, Influenza & RSV (PCR) - Final Rhythm Strip Rhythm Strip: Sinus bradycardia Rate: 57 Ectopy: None Imaging Radiology Impression Chest X-Ray 07/28/24 10:25 IMPRESSION: NEGATIVE CHEST. Reading Location: [facility] Assessment & Plan Assessment/Plan (1) Chest pain: PLAN: Plan #Chest pain to rule out ACS Admit to PCU. Patient admitted with complaint of chest pain. EKG showed no acute ST changes. Initial troponin was only minimally elevated at 23 and delta troponin was 24. He does have a history of CAD and had a stent many years ago in 2010 On Plavix and statin For stress test tomorrow. #Hypertension: On amlodipine and lisinopril as well as propranolol #Hyperlipidemia: On statin #History of CVA: On Plavix and statin Depression: On fluoxetine DVT prophylaxis: Lovenox CODE STATUS: Full code Patient and counseled extensively about different types of CODE STATUS including full code, DNR CCA and DNR CCA. Patient elects to be full code. Total [id number] time 16 minutes. Charges/Coding Visit Charges Inpatient E&M: 14026 Init Hosp L2 Procedures Hospitalists Procedures: 98439 Advncd Care Plan 30 Min
[2024-07-28 16:29] LABS: Troponin T High Sens 4 HR 23 ng/L (<=22)
[2024-07-28] MEDS: Acetaminophen 325 MG Tablet 650 MG PO (18:20)
[2024-07-28] MEDS: Propranolol 10 MG Tablet 30 MG PO (21:02)
[2024-07-28] MEDS: Lisinopril 10 MG Tablet PO (21:02)
[2024-07-28] MEDS: Atorvastatin Calcium 20 MG Tablet PO (21:02)
[2024-07-28] MEDS: amLODIPine 5 MG Tablet PO (21:02)
[2024-07-29 05:37] LABS: Absolute Lymphocyte Count 1.38 X10^3/uL (0.83-4.51); Absolute Neutrophil Count 6.5 X10^3/uL (2.0-7.7); Basophil# 0.09 X10^3/uL; Eosinophil# 0.44 X10^3/uL; Eosinophils% 4.7 % (0-5); Hematocrit 35.8 % (40-54); Lymphocyte # 1.38 X10^3/ul (0.83-4.51); Lymphocyte % 14.7 % (19-41); Mean Corp Hgb Conc 33.5 g/dL (32-36); Mean Corpuscular Hgb 31.3 pg (27.0-32.0); Mean Corpuscular Volume 93.2 fL (80-94); Mean Platelet Vol. 9.9 fl (6.2-12.0); Monocyte# 0.93 X10^3/uL; Monocyte% 9.9 % (0-10); NRBC Flagged by Analyzer 0 % (0-5); Neutrophil # 6.52 X10^3/uL (2.7-7.7); Neutrophil % 69.4 % (47-70); Platelet Count 319 K/mm3 (150-450); RBC Distribution Width CV 12.9 % (11.6-14.6); RBC Distribution Width SD 44.1 fl (35.1-43.9); Red Blood Count 3.84 M/mm3 (4.6-6.2); White Blood Count 9.4 K/mm3 (4.4-11.0)
[2024-07-29 06:16] LABS: Anion Gap 10 (5-15); BUN 12 mg/dL (4-19); BUN/Creat Ratio 12.4 RATIO (10-20); Calcium,Total 9.1 mg/dL (7.6-11.0); Carbon Dioxide 24.4 mmol/L (21.0-32.0); Chloride 103 mmol/L (98-108); Creatinine, Serum 0.98 mg/dL (0.70-1.20); EST Glomerular Filtration Rate 77 (>60); Estimated Creatinine Clearance 70.24 ml/min (50-250); Glucose 100 mg/dL (70-99); Potassium 4.1 mmol/L (3.3-5.1); Sodium Level 137 mmol/L (133-145)
--- NOTE | 2024-07-29 09:02 | PN.HOSP_ITS ---
Reason for Visit Reason for Visit: Diagnoses Chest pain, unspecified (07/28/24) Subjective Subjective No further chest pain. Has chronic back pain (thoracic and lumbar--no change). Objective Data Objective Data Vital Signs: Vital Signs Temp Pulse Resp BP Pulse Ox O2 Del Method 36.8 C 60 16 157/73 H 97 Room Air 07/28/24 21:00 07/28/24 21:00 07/28/24 21:00 07/28/24 21:00 07/28/24 21:00 07/29/24 07:49 Oxygen Delivery Method Room Air Weight: 97.522 kg Body Mass Index (BMI) 28.3 Intake & Output: Intake and Output for Last 24 Hours 07/27/24 07/29/24 07/29/24 23:59 00:59 23:59 Intake Total 120 / 120 Balance 120 / 120 Lab / Micro Data 07/29/24 05:04 07/29/24 05:04 Labs: Laboratory Results - last 24 hr 07/28/24 10:40: WBC 9.6, RBC 3.98 L, Hgb 12.6 L, Hct 37.5 L, MCV 94.2 H, MCH 31.7, MCHC 33.6, RDW Std Deviation 45.2 H, RDW Coeff of Guido 13.1, Plt Count 353, MPV 9.6, Immature Gran % (Auto) 0.200, Neut % (Auto) 76.6 H, Lymph % (Auto) 12.4 L, [place] % (Auto) 6.0, Eos % (Auto) 3.9, Baso % (Auto) 0.9, Absolute Neuts (auto) 7.4, Absolute Lymphs (auto) 1.19, Nucleated RBC % 0, Sodium 136, Potassium 3.9, Chloride 100, Carbon Dioxide 24.3, Anion Gap 11, BUN 13, Creatinine 1.12, Estim Creat Clear Calc 61.84, Est GFR (MDRD) Non-Af 65, BUN/Creatinine Ratio 11.3, G lucose 181 H, Calcium 9.3, Troponin T High Sens 23 H 07/28/24 12:38: Troponin T Hi Sens 2 Hr 24 H 07/28/24 15:47: Troponin T Hi Sens 4Hr 23 H 07/29/24 05:04: WBC 9.4, RBC 3.84 L, Hgb 12.0 L, Hct 35.8 L, MCV 93.2, MCH 31.3, MCHC 33.5, RDW Std Deviation 44.1 H, RDW Coeff of Guido 12.9, Plt Count 319, MPV 9.9, Immature Gran % (Auto) 0.300, Neut % (Auto) 69.4, Lymph % (Auto) 14.7 L, [place] % (Auto) 9.9, Eos % (Auto) 4.7, Baso % (Auto) 1.0, Absolute Neuts (auto) 6.5, Absolute Lymphs (auto) 1.38, Nucleated RBC % 0, Sodium 137, Potassium 4.1, Chloride 103, Carbon Dioxide 24.4, Anion Gap 10, BUN 12, Creatinine 0.98, Estim Creat Clear Calc 70.24, Est GFR (MDRD) Non-Af 77, BUN/Creatinine Ratio 12.4, G lucose 100 H, Calcium 9.1 Micro: Microbiology 07/28/24 10:37 Mucosa - Nose SARS-CoV-2, Influenza & RSV (PCR) - Final Radiography Diagnostic Testing: Radiology Impression Chest X-Ray 07/28/24 10:25 IMPRESSION: NEGATIVE CHEST. Reading Location: [facility] Rhythm Strip Rhythm Strip: Sinus bradycardia Rate: 57 Ectopy: None Physical Exam Const alert and no apparent distress Constitutional Narrative: no reproducible anterior chest pain. HEENT head/scalp atraumatic and moist oral mucous membranes Assessment & Plan Assessment/Plan (1) Chest pain: PLAN: stress test negative. likely 2/2 costochondritis from recent URI. No additional work up. DC home. DW patient's spouse at bedside.
[2024-07-29 09:47] VITALS: BP 144/67; PULSE 58; RESP 16; TEMP 36.6; O2SAT 99
--- NOTE | 2024-07-29 11:03 | STRESSREP ---
Stress Test Report Date: 07/29/2024 Procedure: Pharmacologic stress nuclear imaging study Indications: Chest pain Consent: Per the patient Procedure: The patient underwent pharmacologic (Regadenoson) evaluation with a peak heart rate of 78 beats per minute (56%predicted maximal heart rate) and a peak blood pressure of 178/80 mmHg. The baseline ECG demonstrated normal sinus rhythm, nonspecific ST-T changes. EKG during lexiscan infusion revealed no significant ischemic changes. EKG post infusion revealed no significant ischemic changes [There were no cardiac dysrhythmias pretest, during pharmacologic infusion, or recovery]. [There was no complaint of chest discomfort during pharmacologic infusion or recovery]. The examination was discontinued secondary to completion of protocol. Impression: 1. Lexiscan stress test test is negative for Lexiscan infusion induced EKG changes of ischemia. 2. Lexiscan stress test test is negative for Lexiscan infusion induced chest pain. 3. Results of the nuclear portion of the test is as below Myocardial perfusion imaging study: Technique: The patient was injected with 15 millicuries of technetium 99m Cardiolite and subsequently rest SPECT Cardiolite nuclear imaging was obtained in the horizontal long, vertical long, and short axis views. The patient underwent pharmacologic [Regadenoson 0.4mg] evaluation. Please see above for details. The patient was injected with 44.7 millicuries of technetium 99m Cardiolite and subsequently stress SPECT Cardiolite nuclear imaging was obtained in the horizontal long, vertical long, and short axis views. A gated Cardiolite study at peak stress was obtained. Interpretation: Rest and stress SPECT Cardiolite nuclear imaging status post realignment, normalization, and attenuation correction demonstrate no evidence of significant ischemia or infarction. Gated images reveal no significant regional wall motion abnormalities. The reported LVEF is greater than 70%. Impression: 1. There is no evidence of significant ischemia or infarction. 2. Estimated ejection fraction is greater than 70%. This note was generated with [employer] software. It may contain incorrect words, spelling, and punctuation that were not noted in checking the note before signing.
[2024-07-29] MEDS: Multivitamins,Therapeutic Tablet 1 TABLET PO (12:31)
[2024-07-29] MEDS: Clopidogrel Bisulfate 75 MG Tablet PO (12:31)
[2024-07-29] MEDS: amLODIPine 5 MG Tablet PO (12:31)
[2024-07-29] MEDS: Propranolol 10 MG Tablet 30 MG PO (12:31)
[2024-07-29] MEDS: Fluoxetine HCl 40 MG CAPSULE PO (12:32)
[2024-07-29] MEDS: Lisinopril 10 MG Tablet PO (12:32)
--- NOTE | 2024-07-29 14:13 | PCM.DC.SUM ---
Providers Date of Admission: 07/28/24 Primary Care Physician: Dr. Harvinder Vaughan MD Reason For Visit: CHEST PAIN Diagnosis Discharge Diagnosis (1) Chest pain: Status: Acute Code(s): R07.9 - Chest pain, unspecified Plan: stress test negative. likely 2/2 costochondritis from recent URI. No additional work up. DC home. DW patient's spouse at bedside. Medications at Discharge Home Medications fluoxetine 40 mg capsule (Prozac) 40 mg PO DAILY 07/04/18 acetaminophen 500 mg tablet (Tylenol Extra Strength) 500 mg PO Q6H PRN Pain 06/17/20 amlodipine 5 mg tablet 5 mg PO BID 03/17/21 multivitamin 1 tab PO DAILY 02/08/22 clopidogrel 75 mg tablet 75 mg PO DAILY 05/05/22 nitroglycerin 0.4 mg sublingual tablet 0.4 mg sublingual Q5-15M PRN chest pain #25 tabs 05/26/22 rosuvastatin 10 mg tablet 10 mg PO QHS #90 tabs 11/24/22 oxycodone 5 mg tablet 5 mg PO Q6H PRN pain 04/16/23 propranolol 20 mg tablet 30 mg PO BID 04/16/23 lisinopril 10 mg tablet 10 mg PO BID #180 TABLETS 04/11/24 Hospital Course Operations None Procedures Stress test Weight / BMI Weight Weight: 97.522 kg Body Mass Index (BMI) 28.3 ABG / Lab / Microbiology Data 07/29/24 05:04 07/29/24 05:04 Laboratory: Laboratory Results - last 24 hr 07/28/24 15:47: Troponin T Hi Sens 4Hr 23 H 07/29/24 05:04: WBC 9.4, RBC 3.84 L, Hgb 12.0 L, Hct 35.8 L, MCV 93.2, MCH 31.3, MCHC 33.5, RDW Std Deviation 44.1 H, RDW Coeff of Guido 12.9, Plt Count 319, MPV 9.9, Immature Gran % (Auto) 0.300, Neut % (Auto) 69.4, Lymph % (Auto) 14.7 L, [place] % (Auto) 9.9, Eos % (Auto) 4.7, Baso % (Auto) 1.0, Absolute Neuts (auto) 6.5, Absolute Lymphs (auto) 1.38, Nucleated RBC % 0, Sodium 137, Potassium 4.1, Chloride 103, Carbon Dioxide 24.4, Anion Gap 10, BUN 12, Creatinine 0.98, Estim Creat Clear Calc 70.24, Est GFR (MDRD) Non-Af 77, BUN/Creatinine Ratio 12.4, Glucose 100 H, Calcium 9.1 Microbiology: Microbiology 07/28/24 10:37 Mucosa - Nose SARS-CoV-2, Influenza & RSV (PCR) - Final D/C Instructions Discharge Diet: Low fat / Low cholesterol DC O2, CPAP, BIPAP Needs Home O2 Discharge instructions: No Meaningful Use Info Meaningful Use Meaningful Use Diagnoses (Choose all that apply): None applicable Ischemic Stroke Statin Dosing Therapy Reference: STATIN DOSE THERAPY REFERENCE: * Patients > 75 years receive moderate or high dose statin therapy. * Patients 75 years or YOUNGER should receive HIGH intensity statin dose unless contraindicated. You will be required to document reason for non-treatment if statin daily dose does not meet guidelines. HIGH DOSE STATIN THERAPY DAILY Atorvastatin > than or = to 40 mg Rosuvastatin > than or = to 20 mg Amlodipine + Atorvastatin > than or = to 2.5/40 mg Ezetimibe + Simvastatin 10/80 mg Simvastatin 80mg Discharge Plan Admission Admit Date/Time: 07/28/24 12:10 Primary Reason for Your Visit: chest pain. Attending Provider: Nawaf Leblanc Primary Care Provider: Harvinder Vaughan Consulting Providers: Nini Brown Instructions Additional Instructions / Restrictions: Your stress test was negative (normal). Your chest pain may have been due to your chest wall (pulled muscle, slight displaced rib). No additional testing is needed at this time. Discharge Orders/Prescriptions Prescriptions: Continued fluoxetine [Prozac] 40 mg capsule 40 mg PO DAILY Patient Comments: not taking while taking antibiotic linezolid acetaminophen [Tylenol Extra Strength] 500 mg tablet 500 mg PO Q6H PRN (Reason: Pain) nitroglycerin 0.4 mg tablet, sublingual 0.4 mg SUBLINGUAL Q5-15M PRN (Reason: chest pain) Qty: 25 1RF Rx Instructions: do not exceed 3 doses per episode multivitamin Tablet 1 tab PO DAILY oxycodone 5 mg tablet 5 mg PO Q6H PRN (Reason: pain) Patient Comments: TAKE 1 TO 2 TABLET BY MOUTH EVERY SIX HOURS NEEDED FOR PAIN propranolol 20 mg tablet 30 mg PO BID amlodipine 5 mg tablet 5 mg PO BID clopidogrel 75 mg tablet 75 mg PO DAILY rosuvastatin 10 mg tablet 10 mg PO QHS Qty: 90 3RF lisinopril 10 mg tablet 10 mg PO BID Qty: 180 3RF Referrals / Follow Up: Harvinder Vaughan MD [Primary Care Provider] - Within 1 Month Disposition Disposition (needs filled in before D/C Order can be placed): Home, Self Care Charges/Coding Visit Charges Inpatient E&M: 71925 Disch Hosp
[2024-07-29 14:17] VITALS: BP 123/68; PULSE 65; RESP 16; TEMP 36.7; O2SAT 100
--- NOTE | 2024-07-29 14:21 | CASEMGMT ---
RN CM noted DC orders in and reviewed instructions, no DC needs identified at this time.
--- NOTE | 2024-07-29 15:32 | CASEMGMT ---
Met with patient to complete HERNANDEZ form. HERNANDEZ form explained to patient who voiced understanding and signed form. Original form placed in pt?s chart and copy provided to patient. Delmis Kitchen, Discharge Planning Asst
--- NOTE | 2024-07-29 16:16 | CHAPLAIN ---
Type of Pastoral Visit ___ Initial Visit ___ Follow-up Visit ___ On-call Visit ___ General Patient Visit ___ Spiritual Assessment ___ Family Conference ___ Bereavement ___ Rapid Response ___ Code Blue ___ Other (describe below) Pastoral Care Referral From ___ Patient ___ Family ___ Nurse ___ Physician ___ Pick Up Truck Driver ___ Associate Broker ___ Other (describe below) Sacrament/Intervention ___ Active listening ___ Anointing ___ Lutheran ___ Bereavement ___ Communion ___ Becki exploration ___ ___ Life review ___ Prayer ___ Reconciliation ___ Sacrament of Sick ___ Supportive presence ___ Wedding ___ Other (describe below) Pastoral Comments patient is not in the room; pt may have been discharged
== END 2024-07-29 15:35 | disposition home or self-care (01) ==
LOC: ED 12:01 → PCU 12:58
PROVIDERS: Admitting Provider Student in an Organized Health Care Education/Training Program; Emergency Provider Emergency Medicine; PCP Family Medicine
DX: R07.89 Other chest pain (principal); Z87.891 Personal history of nicotine dependence; R06.02 Shortness of breath; I10 Essential (primary) hypertension; R11.0 Nausea; G89.29 Other chronic pain; E78.00 Pure hypercholesterolemia, unspecified; Z95.5 Presence of coronary angioplasty implant and graft; I25.10 Atherosclerotic heart disease of native coronary artery without angina pectoris; Z79.02 Long term (current) use of antithrombotics/antiplatelets; Z79.899 Other long term (current) drug therapy; F32.A Depression, unspecified
CPT/HCPCS: 71045; 78452; 80048; 84484; 85025; 87631; 93005; 93017; 97161; 99221; 99285; A9500; A4216; G0378; J2785

== ENCOUNTER 2024-11-13 12:47 | Emergency (ER) | payer MEDICARE, OTHER, SELFPAY ==
[2024-11-13] VITALS (9 sets, daily range): BP systolic 142–175; BP diastolic 64–82; PULSE 55–74; RESP 12–19; TEMP 36.4–36.9; O2SAT 97–100; BMI 29.2
--- NOTE | 2024-11-13 14:49 | CT_ITS ---
PROCEDURE: ABDOMEN/PELVIS W IV CONT ONLY 11/13/2024 REASON FOR EXAM: EPIGASTRIC FOREIGN BODY SENSATION TECHNIQUE: ABDOMEN/PELVIS W IV CONT ONLY Coronal and Sagittal reconstruction series were provided. CONTRAST: Isovue 370 VOLUME: 100 mL One or more dose reduction techniques were used (e.g., Automated exposure control, adjustment of the mA and/or kV according to patient size, use of iterative reconstruction technique. RADIATION DOSE SUMMARY: DLP: 1200 mGycm COMPARISON: CT abdomen pelvis 03/13/2020. FINDINGS: Lung bases: Bibasilar atelectasis. Coronary artery calcifications. Mixed plaque of the visualized thoracic aorta. Liver: The liver is normal in size with scattered hypodensities, likely cysts. The major portal veins are patent. No biliary ductal dilation. Gallbladder: Punctate layering stones within the gallbladder. No gallbladder wall thickening or pericholecystic fluid. Spleen: Normal in size. Pancreas: Mildly atrophic. Adrenals: No adrenal mass. Kidneys: Bilateral renal cysts and additional hypodensities. No hydronephrosis or nephrolithiasis. Bladder: Distended and unremarkable. Reproductive Organs: PriorTURP. Bowel: The bowel loops are nondilated. No ascites or pneumoperitoneum. No inflammatory mass in the expected region of the appendix. Lymph nodes: No suspicious lymph node enlargement. Vasculature: Severe mixed plaque of the aortoiliac vessels. Bones: Prior total right hip arthroplasty. Thoracolumbar spondylosis with chronic height loss of the visualized vertebral bodies. Prior L3-[address]/Abdomen/Pelvis W IV Cont ONLY IMPRESSION: No acute abdominopelvic finding. Reading Location: [id number]
--- NOTE | 2024-11-13 14:58 | EX.ED.DYSGE1 ---
HPI History of Present Illness Chief Complaint: Foreign Body Narrative Narrative: Chief complaint and HPI: Abdominal fullness. 84-year-old male with past medical history of CAD, DM2, HTN, HLD presents for evaluation of abdominal fullness. Patient states that he frequently suffers from constipation. He states intermittently he develops abdominal fullness when he eats. States that he feels like something becomes stuck in his stomach/bowels. Patient states prior to arrival he was eating a chicken Chipotle bowl when he developed the abdominal fullness. He states that he feels like something is stuck in his stomach/bowels. He denies any feeling of something being stuck in his esophagus. States that he has not ate or drink anything since this feeling. Triage note states that the patient feels short of breath, lightheaded, and is unable to swallow water. He denies this to me. States that he has not tried to swallow anything since he developed the feeling. He has a known umbilical hernia. No history of an EGD. States he had a colonoscopy years ago which states was unremarkable. He denies any fever, chills, URI symptoms, chest pain, shortness of breath, diarrhea, dysuria. Review of systems: See HPI Medications: As listed on the chart Allergies: As listed on the chart PFSH: Per chart Vital signs: As listed on the chart. Reviewed. Physical exam: Gen: A&O x3, NAD Head: Normocephalic, atraumatic Eyes: No sclera icterus, conjunctiva clear ENT: Moist mucous membranes, posterior oropharynx unremarkable, uvula midline, tonsils not enlarged, no foreign body visualized Neck: Trachea midline, No JVD, Full ROM CV: RRR, no murmurs, no peripheral edema Resp: Lungs CTA BL, no w/r/c GI: Abd soft, non-distended, patient has a small umbilical hernia-tender to palpation although states that this has been tender for years-reducible but reoccurrs, no r/r/g Musc: Full ROM, no deformity Skin: Warm, dry, no rash Neuro: Alert, oriented, grossly intact, sensation intact Psych: Cooperative, appropriate mood and affect [facility] Medical History COVID-19 (~08/30/22) Sepsis due to urinary tract infection History of transesophageal echocardiography (VIOLETTE) Wears hearing aid Wears glasses Depression Anxiety Walker as ambulation aid Arthritis Indwelling urethral catheter present Low iron Easy bruising History of hiatal hernia Former smoker Chest pain History of tilt table evaluation Cardiology follow-up encounter History of echocardiogram History of stress test Enterococcus UTI H/O appendicitis Presence of stent in coronary artery (~09/08/10) Pure hypercholesterolemia Essential hypertension PTSD (post-traumatic stress disorder) Pulmonary hypertension Restless legs syndrome (RLS) REHAN (obstructive sleep apnea) Syncope and collapse Dizziness and giddiness Fatigue Shortness of breath Dyspnea Precordial chest pain 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 senior care use of drug Atherosclerotic heart disease of [place] coronary artery without angina pectoris 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 Neck pain on left side Benign prostatic hypertrophy Coronary artery disease Home Medications ?Medication ?Instructions ?Recorded ?Last Taken ?Type fluoxetine 40 mg capsule (Prozac) 40 mg PO DAILY reflux 07/04/18 07/13/21 History acetaminophen 500 mg tablet 500 mg PO Q6H PRN Pain 06/17/20 07/13/21 History (Tylenol Extra Strength) amlodipine 5 mg tablet 5 mg PO BID blood pressure 03/17/21 07/14/21 History multivitamin 1 tab PO DAILY vitamin 02/08/22 Unknown History clopidogrel 75 mg tablet 75 mg PO DAILY anti platelet 05/05/22 Unknown History nitroglycerin 0.4 mg sublingual 0.4 mg sublingual Q5-15M PRN chest 05/26/22 Unknown Rx tablet pain #25 tabs rosuvastatin 10 mg tablet 10 mg PO QHS cholesterol #90 tabs 11/24/22 Unknown Rx oxycodone 5 mg tablet 5 mg PO Q6H PRN pain 04/16/23 Unknown History propranolol 20 mg tablet 30 mg PO BID blood pressure 04/16/23 Unknown History lisinopril 10 mg tablet 10 mg PO BID blood pressure #180 04/11/24 Unknown Rx TABLETS Allergy/AdvReac Type Severity Reaction Status Date / Time hydrocodone (From Vicodin) Allergy Other Verified 07/28/24 10:20 orphenadrine Allergy Unknown Verified 07/28/24 10:20 pregabalin Allergy Swelling Verified 07/28/24 10:20 atorvastatin (From Lipitor) AdvReac Severe Intolerance Verified 07/28/24 10:20 ,Myalgias Family History Father CVA (cerebral vascular accident) Mother Cardiomegaly Brother CAD (coronary artery disease) Hx CABG and valve replacement Diabetes Brother History of heart valve replacement Brother Rheumatic fever Sister Hypertension Aortic aneurysm H/O aortic valve replacement Brother Cancer bladder Brother Thyroid disorder Surgical History S/P TURP History of colonoscopy H/O heart artery stent History of right hip replacement Presence of coronary angioplasty implant and graft (~09/08/10) S/P right knee arthroscopy History of appendectomy hx cervical stenosis History of vasectomy History of hydrocelectomy Social History household members: spouse housing: house Smoking Status: Former smoker pack-years: 20 Tobacco: How many years used: 22 second hand exposure: No alcohol intake: never substance use type: does not use caffeine: Yes Type: carbonated beverages Number of servings: 1 and tea what type of physical activity do you participate in: none seatbelt use: always do you feel safe at home: Yes EXAM Physical Exam Const Vital Signs: 11/13/24 12:48 11/13/24 14:03 11/13/24 14:03 Temperature 97.6 F L Temperature Source Temporal Pulse Rate 69 55 L Respiratory Rate 16 16 Respiratory Effort Normal Respiratory Pattern Normal Blood Pressure 142/66 H 147/74 H Blood Pressure Mean 91 98 Pulse Ox 98 97 Oxygen Delivery Method Room Air Room Air 11/13/24 15:01 11/13/24 15:22 11/13/24 16:20 Temperature Temperature Source Pulse Rate 60 59 L 74 Respiratory Rate 15 19 H 16 Respiratory Effort Respiratory Pattern Blood Pressure 170/78 H 166/77 H 152/64 H Blood Pressure Mean 108 106 93 Pulse Ox 97 99 98 Oxygen Delivery Method Room Air Room Air Room Air 11/13/24 17:00 11/13/24 18:00 11/13/24 19:00 Temperature Temperature Source Pulse Rate 59 L 64 66 Respiratory Rate 16 15 14 Respiratory Effort Respiratory Pattern Blood Pressure 161/82 H 154/75 H 155/74 H Blood Pressure Mean 108 101 101 Pulse Ox 97 98 99 Oxygen Delivery Method Room Air Room Air Room Air 11/13/24 19:26 Temperature 98.5 F Temperature Source Pulse Rate 69 Respiratory Rate 12 Respiratory Effort Respiratory Pattern Blood Pressure 175/81 H Blood Pressure Mean 112 Pulse Ox 100 Oxygen Delivery Method MDM MDM MDM Narrative Medical decision making narrative: 84-year-old male with past medical history of CAD, DM2, HTN, HLD presents for evaluation of abdominal fullness. Patient states he frequently suffers from constipation and as well as a painful umbilical hernia. States prior to arrival he was eating a chicken Chipotle bowl when he developed abdominal fullness. States he feels like something is stuck in his stomach/bowels. Denies any feeling of something stuck in his esophagus. Differential diagnosis includes but is not limited to foreign body impaction, obstruction, GERD, incarcerated hernia, pancreatitis, colitis. Will give Coke to drink to see if patient can tolerate drinking to rule out foreign body impaction in the esophagus. NS bolus, Zofran, Pepcid ordered. Abdominal pain workup ordered including CT abdomen and pelvis. Patient was able to drink Coke without any difficulty. No nausea or vomiting. Shortly after initiation of workup, patient told nursing that he has been having some chest pain as well. Originally denied this to me. Will add on EKG, chest x-ray, troponin. EKG and chest x-ray reviewed. CBC without leukocytosis. Patient has baseline anemia with hemoglobin 11.7. CMP unremarkable. Lipase unremarkable. Troponin unremarkable x 2. CT abdomen pelvis shows no acute intra-abdominal pathology. At this point in time, no clear etiology for patient's symptoms. He has an unremarkable cardiac and abdominal workup. Although he does have a tender umbilical hernia, he states that this is chronically tender. It is reducible. Patient able to tolerate p.o. intake. Patient and were updated of all the results and the plan to discharge home. Recommend following up with PCP as well as GI and general surgery. Patient confirmed understanding of plan. Patient stable to discharge home. Return precautions explained. EKG: Interpreted by me/EM physician: EKG shows sinus bradycardia without any acute ischemic changes. Heart 58 Diagnostic: Interpreted by me/EM physician: Chest x-ray no pneumonia, large effusion, pneumothorax. Mild cardiomegaly with mild vascular congestion. Radiology in agreement. Impression: 1. 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 globus sensation in the abdomen 2. 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 dysphagia 3. Reducible umbilical hernia 4. Chest pain, unclear etiology Lab Data Labs: Laboratory Results - last 24 hr 11/13/24 11/13/24 13:42 17:47 WBC 9.2 RBC 3.74 L Hgb 11.7 L Hct 35.2 L MCV 94.1 H MCH 31.3 MCHC 33.2 RDW Std Deviation 46.6 H RDW Coeff of Guido 13.4 Plt Count 381 MPV 10.2 Immature Gran % (Auto) 0.800 Neut % (Auto) 72.0 H Lymph % (Auto) 13.8 L Parke % (Auto) 10.1 H Eos % (Auto) 2.4 Baso % (Auto) 0.9 Absolute Neuts (auto) 6.7 Absolute Lymphs (auto) 1.27 Nucleated RBC % 0 Sodium 135 Potassium 4.4 Chloride 100 Carbon Dioxide 25.1 Anion Gap 11 BUN 13 Creatinine 1.00 Estim Creat Clear Calc 69.78 Est GFR (MDRD) Non-Af 75 BUN/Creatinine Ratio 12.9 Glucose 94 Calcium 9.2 Total Bilirubin 0.37 AST 26 ALT 23 Alkaline Phosphatase 105 Troponin T High Sens 22 Troponin T Hi Sens 2 Hr 19 Total Protein 6.9 Albumin 3.7 Globulin 3.2 Albumin/Globulin Ratio 1.2 Lipase 28 Radiography Diagnostic Testing: Clinical Impression(s) from Imaging Studies Abdomen/Pelvis CT 11/13/24 14:49 IMPRESSION: No acute abdominopelvic finding. Reading Location: [facility] Chest X-Ray 11/13/24 16:48 IMPRESSION: Mild pulmonary vascular congestion. No focal consolidation. Stable mild cardiomegaly. Reading Location: [facility] Discharge Plan Triage Chief Complaint: Foreign Body ED Provider: Petr Perry Dx/Rx/DC Orders Clinical Impression: Chest pain, Globus abdominalis Instructions: ED Chest Pain, Uncertain Cause, ED Abdominal Pain Unkn Cause Male... Prescriptions: No Action fluoxetine [Prozac] 40 mg capsule 40 mg PO DAILY Patient Comments: not taking while taking antibiotic linezolid acetaminophen [Tylenol Extra Strength] 500 mg tablet 500 mg PO Q6H PRN (Reason: Pain) nitroglycerin 0.4 mg tablet, sublingual 0.4 mg SUBLINGUAL Q5-15M PRN (Reason: chest pain) Qty: 25 1RF Rx Instructions: do not exceed 3 doses per episode multivitamin Tablet 1 tab PO DAILY oxycodone 5 mg tablet 5 mg PO Q6H PRN (Reason: pain) Patient Comments: TAKE 1 TO 2 TABLET BY MOUTH EVERY SIX HOURS NEEDED FOR PAIN propranolol 20 mg tablet 30 mg PO BID amlodipine 5 mg tablet 5 mg PO BID clopidogrel 75 mg tablet 75 mg PO DAILY rosuvastatin 10 mg tablet 10 mg PO QHS Qty: 90 3RF lisinopril 10 mg tablet 10 mg PO BID Qty: 180 3RF Primary Care Provider: Harvinder Vaughan Referrals: Vito Alexandra MD [Med Staff - Active Staff] - 3-5 Days Harvinder Vaughan MD [Primary Care Provider] - 3-5 Days Josue Seals DO [Med Staff - Active Staff] - 3-5 Days Activity Restrictions/Additional Instructions: Follow-up with your primary care physician for your chest pain. Follow-up with Dr. Alexandra for your umbilical hernia. Follow-up with Dr. Seals for your intermittent difficulty swallowing. Print Language: Turkish Disposition Disposition: Home, Self Care Discharge Date/Time: 11/13/24 19:33
[2024-11-13] MEDS: Aspirin 81 MG TAB.CHEW 324 MG PO (15:19)
[2024-11-13] MEDS: Famotidine 200 MG/20 ML MDV 20 MG in 0.9% Normal Saline (Pres. free 8 ML 300 MG IV (15:20)
[2024-11-13] MEDS: 0.9% Normal Saline (1000mL) 1,000 ML 999 ML IV (15:20)
[2024-11-13] MEDS: Ondansetron 4 MG/2 ML Vial IV (15:20)
[2024-11-13 15:30] LABS: Absolute Lymphocyte Count 1.27 X10^3/uL (0.83-4.51); Absolute Neutrophil Count 6.7 X10^3/uL (2.0-7.7); Basophil# 0.08 X10^3/uL; Basophil% 0.9 % (0-1); Eosinophil# 0.22 X10^3/uL; Eosinophils% 2.4 % (0-5); Hematocrit 35.2 % (40-54); Hemoglobin 11.7 g/dL (13.0-16.5); Lymphocyte # 1.27 X10^3/ul (0.83-4.51); Lymphocyte % 13.8 % (19-41); Mean Corp Hgb Conc 33.2 g/dL (32-36); Mean Corpuscular Hgb 31.3 pg (27.0-32.0); Mean Corpuscular Volume 94.1 fL (80-94); Mean Platelet Vol. 10.2 fl (6.2-12.0); Monocyte# 0.93 X10^3/uL; Monocyte% 10.1 % (0-10); NRBC Flagged by Analyzer 0 % (0-5); Neutrophil # 6.65 X10^3/uL (2.7-7.7); Platelet Count 381 K/mm3 (150-450); RBC Distribution Width CV 13.4 % (11.6-14.6); RBC Distribution Width SD 46.6 fl (35.1-43.9); Red Blood Count 3.74 M/mm3 (4.6-6.2); White Blood Count 9.2 K/mm3 (4.4-11.0)
[2024-11-13 16:17] LABS: ALB/GLOB Ratio 1.2 RATIO (0.9-2.4); AST(SGOT) 26 U/L (<=37); Alanine Aminotransfer ALT/SGPT 23 U/L (<=46); Albumin, Serum 3.7 g/dL (3.4-4.8); Alkaline Phosphatase 105 U/L (40-129); Anion Gap 11 (5-15); BUN 13 mg/dL (4-19); BUN/Creat Ratio 12.9 RATIO (10-20); Calcium,Total 9.2 mg/dL (7.6-11.0); Carbon Dioxide 25.1 mmol/L (21.0-32.0); Chloride 100 mmol/L (98-108); EST Glomerular Filtration Rate 75 (>60); Estimated Creatinine Clearance 69.78 ml/min (50-250); Globulin 3.2 g/dL (2.2-4.2); Glucose 94 mg/dL (70-99); Lipase 28 U/L (13-75); Potassium 4.4 mmol/L (3.3-5.1); Protein, Total 6.9 g/dL (5.9-8.4); Sodium Level 135 mmol/L (133-145); Total Bilirubin 0.37 mg/dL (0.00-1.30)
[2024-11-13 16:39] LABS: Troponin T High Sensitivity 22 ng/L (<=22)
--- NOTE | 2024-11-13 16:48 | RAD_ITS ---
PROCEDURE: CHEST PA AND LATERAL 11/13/2024 REASON FOR EXAM: CHEST PAIN TECHNIQUE: CHEST PA AND LATERAL COMPARISON: 07/28/2024 FINDINGS: Bibasilar subsegmental atelectasis. Mild pulmonary vascular congestion. No focal consolidation. No pleural effusion or pneumothorax. Cardiac silhouette is unchanged. No acute fractures. RAD/Chest PA and Lateral IMPRESSION: Mild pulmonary vascular congestion. No focal consolidation. Stable mild cardi omegaly. Reading Location: [id number]
[2024-11-13 18:52] LABS: Troponin T High Sens 2 HR 19 ng/L (<=22)
== END 2024-11-13 19:33 | disposition home or self-care (01) ==
PROVIDERS: Emergency Provider Surgery; PCP Family Medicine; Visit Provider Surgery
DX: R07.9 Chest pain, unspecified (principal); E11.9 Type 2 diabetes mellitus without complications; I10 Essential (primary) hypertension; Z87.891 Personal history of nicotine dependence; E78.00 Pure hypercholesterolemia, unspecified; I25.10 Atherosclerotic heart disease of native coronary artery without angina pectoris; K42.9 Umbilical hernia without obstruction or gangrene; D64.9 Anemia, unspecified; R10.9 Unspecified abdominal pain; R09.A9 Foreign body sensation, other site
CPT/HCPCS: 71046; 74177; 80053; 83690; 84484; 85025; 93005; 96365; 96375; 99284; Q9967; A4216; J2405

== ENCOUNTER 2024-12-06 09:22 | Day surgery (SDC) | payer MEDICARE, OTHER, SELFPAY ==
[2024-12-06 09:50] VITALS: BP 165/69; TEMP 36.4; O2SAT 99
[2024-12-06] MEDS: Lidocaine Jelly 2% 20 ML Syringe (URO-JET) 1 APPLIC (10:00)
== END 2024-12-06 10:12 | disposition home or self-care (01) ==
PROVIDERS: PCP Family Medicine; Referring Provider Family Medicine; Visit Provider Internal Medicine Gastroenterology
PROC: F00ZJWZ Instrumental Swallowing and Oral Function Assessment using Swallowing Equipment (ICD-10-PCS; CPT 43235; principal; 2024-12-06 09:25)
DX: K22.2 Esophageal obstruction (principal)
CPT/HCPCS: 91010

== ENCOUNTER → 2024-12-23 | Outpatient (CLI) | payer MEDICARE, OTHER, SELFPAY ==
--- NOTE | 2024-12-23 10:37 | SP.MBSS_ITS ---
Modified Barium Swallow Patient Information Study Date: 12/23/24 Study Time: 09:30 Direct Billable Minutes: 93 Total Minutes procedure & reportin Diagnosis: Dysphagia R13.10 Referring Physician: Kristan Huber Reason for Referral: Assess swallow function, assess risk for aspiration, and determine recommendations for any necessary dysphagia interventions. Medical History: Pt established care w/ [facility] on 12/02/2024 for intermittent swallowing difficulty characterized by sensation of retention of foods at the level of his chest, especially white rice, as well as occasional coughing w/ liquids, and throat clearing w/ po intake. He estimates that he has swallowing trouble ~every other day. His swallowing difficulty onset ~2 years ago, but it has recently become worse. Per GI documentation, he had EGD years ago, but pt wasn?t sure if he had required dilation. He denied odynophagia, regurgitation. GI recommended pantoprazole before eating, MBSS, esophageal manometry, and EGD w/ follow-up. Pt informed VP COMMUNICATIONS of 2 past CVAs - date of CVAs unknown as they were an incidental finding. Medical History COVID-19 (~01/18/22) Sepsis due to urinary tract infection History of transesophageal echocardiography (VIOLETTE) Wears hearing aid Wears glasses Depression Anxiety Walker as ambulation aid Arthritis Indwelling urethral catheter present Low iron Easy bruising History of hiatal hernia Former smoker Chest pain History of tilt table evaluation Cardiology follow-up encounter History of echocardiogram History of stress test Enterococcus UTI H/O appendicitis Presence of stent in coronary artery (~09/08/10) Pure hypercholesterolemia Essential hypertension PTSD (post-traumatic stress disorder) Pulmonary hypertension Restless legs syndrome (RLS) REHAN (obstructive sleep apnea) Syncope and collapse Dizziness and giddiness Fatigue Shortness of breath Dyspnea Precordial chest pain 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 PER TRIAL): PENETRATION / ASPIRATION SCALE (CLARKE): 1 = does not enter airway 2 = enters airway/above vocal folds/ejected 3 = enters airway/above vocal folds/not ejected 4 = enters airway/contacts vocal folds/ejected 5 = enters airway/contacts vocal folds/not ejected 6 = enters airway/below vocal folds/ejected 7 = enters airway/below vocal folds/not ejected despite effort 8 = enters airway/below vocal folds/no effort VIDEOFLOROSCOPIC SCALE SCORE (CLARKE): Grade I = aspiration of material that has penetrated into the laryngeal vestibule, intact cough reflex Grade II = aspiration < 10 % of the bolus, intact cough reflex Grade III = aspiration of < 10 % of the bolus, reduced cough reflex or aspiration of > 10 % of the bolus, intact cough reflex Grade IV = aspiration of > 10 % of the bolus, reduced cough reflex Penetration-Aspiration Scale Score Thin Liquid via small single sip: cup: Result: 1= does not enter airway Thin Liquid via teaspoon: Result: 1= does not enter airway Thin Liquid via sequential sips: cup: Result: 2= enter airway/above vocal folds/ejected Comment: Esophageal screen - Complete clearance. [place] Thick Liquid via small single sip: cup: Result: 1= does not enter airway Pudding via teaspoon: Result: 1= does not enter airway Comment: Esophageal screen - Complete clearance. 1/2 Cookie: Result: 1= does not enter airway Comment: Esophageal screen - Mild retention in the middle and lower esophagus. Thin Liquid via single sip: straw: Result: 1= does not enter airway Comment: Esophageal screen - Liquid wash effectively cleared cookie retention. Minimal liquids in lower esophagus following this trial. Barium tablet w/ water: Result: 1= does not enter airway Comment: Esophageal screen - Complete clearance. Oral Phase Labial Seal: No Labial Escape Tongue Control During Bolus Hold: Posterior escape of less than half of bolus Bolus Preparation/Mastication: Timely and efficient chewing and mashing Bolus Transport/Lingual Motion: Repetitive/disorganized tongue motion Oral Residue: Residue collection on oral structures Pharyngeal Phase Initiation of Pharyngeal Swallow: Bolus head at posterior laryngeal surgace of epiglottis Soft Palate Elevation: No bolus between soft palate and pharyngeal wall Laryngeal Elevation: Comp. Superior move thyroid cart w/comp. apprx arytenoid cart-epig pet Anterior Hyoid Excursion: Partial anterior movement Epiglottic Movement: Partial inversion Laryngeal Vestibule Closure at Height of Swallow: Incomplete; narrow column of air/contrast in laryngeal vestibule Pharyngeal Stripping Wave: Present - diminished Pharyngoesophageal Segment Opening: Complete distension and complete duration; no obstruction of flow Tongue Base Retraction: Narrow column of contrast between tongue base & post. pharyngeal wall Pharyngeal Residue: Collection of residue within or on pharyngeal structures Esophageal Phase Esophageal Clearance: Esophageal retention Diagnosis/Impression Diagnosis: Mild oropharyngeal dysphaiga R13.12; Esophageal dysphagia R13.14 MBS Impressions: The oral phase is primarily marked by... -Decreased bolus control w/ premature posterior loss of <1/2 of the bolus to the pharynx prior to swallow onset. -Lingual pumping for A-P transport. -Piecemeal deglutition of pudding. The pharyngeal phase is primarily marked by... -Mildly decreased TB retraction and pharyngeal stripping wave resulting in mild pharyngeal residue w/ some thin liquid trials. -Mildly decreased anterior hyoid excursion, but overall good airway closure. Pt demonstrated only trace laryngeal penetration of sequential sips of thin liquids, which fully ejected. No aspiration. The esophageal phase is primarily marked by... -Retention of cookie in the middle and lower esophagus, which cleared w/ use of a single liquid wash. Recommendations Diet: Regular Textures (Moisten dry textures) and Thin Liquids Compensatory Strategies: Small Bites, Small Sips, Slow Rate, Alternate bites/solids and sips/liquids (Take a sip after every 1-2 bites, especially dry textures) and Sitting upright (During and 60min after meal) Recommend Repeat Modified Barium Swallow: TBD Need for Skilled Speech Therapy Services: Yes Comment: -Train the patient in use of strategies to decrease risk for aspiration. -Ongoing assessment of diet tolerance of recommended textures. -Train the patient in oral motor and oropharyngeal exercise program to improve bolus control, lingual coordination, TB retraction, pharyngeal motility, and anterior hyoid excursion (lingual resistance and coordination exercises, Lupis, Effortful, Angelia). Recommended Referrals: GI Consult (Continue to follow w/ OP GI for management of esophageal retention of solids. If recommended by GI, pt is safe for participation in esophagram.) Education Completed: 1. Described result of evaluation., 2. Pt understands evaluation & agrees with goals and treatment plan. and 7. Pt requires further education on strategies & risks. Status Active ST Patient: Active Contact Information [facility] Speech Therapy:: Rosita Pacheco M.A. [facility] COMMUNICATIONS? Speech-Language Pathologist?? [facility] [address] [place], [place] [id number] [place] [address]? [email or web address]?? [phone]
== END | disposition home or self-care (01) ==
LOC: RAD 09:16
PROVIDERS: PCP Family Medicine
DX: R05.3 Chronic cough (principal); R13.10 Dysphagia, unspecified
CPT/HCPCS: 74230; 92611

== ENCOUNTER 2025-01-10 13:41 | Day surgery (SDC) | payer MEDICARE, OTHER, SELFPAY ==
--- NOTE | 2025-01-08 15:37 | PAT.ANESEVAL ---
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 When Was Last Pacemaker Check QUESTION #4 FULL TEXT: You/Your Family Experience fever (hyperthermia) with Anesthesia Last Oral Intake Last Oral intake: Last Oral Intake NPO since Meds taken in AM with sips of water? 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 Female No 01/08/25 13:03 HX of Motion Sickness No 01/08/25 13:03 HX of N/V After Surgery No 01/08/25 13:03 Non-Smoker Yes 01/08/25 13:03 Duration of Surgery greater No 01/08/25 13:03 than 60 minutes Number of Risk Factors 1 01/08/25 13:03 PONV Score Low Risk 01/08/25 13:03 Height & Weight Height & Weight: Anesthesia: Height & Weight Height 6 ft 1 in 11/29/24 07:58 Respiratory Assessment Respiratory Assessment - solar energy installation manager: Respiratory Tract Infection Hx - 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 Has anyone observed you stop breathing during sleep? STOP Results Positive 01/08/25 13:03 QUESTION #5 FULL TEXT : Do you snore loudly (louder than talking or can be heard through closed doors)? 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 Specify any problems Hx of Preganancy in last 3 N/A 01/08/25 13:03 Months Nurse Filling Out Transfusion KAYDEN 01/08/25 13:03 & Questions: Date: 01/08/25 01/08/25 13:03 Time: 13:05 01/08/25 13:03 Patient unable to answer at this time (ie. 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: /Reproductive Hx- solar energy installation manager Hx Now No 01/08/25 13:03 Gestational Age (in weeks): EDC: Hx Hx Para Hx Section SAB No 01/08/25 13:03 [facility] Medical History (Updated 01/08/25 @ 13:14 by Briseida Bailey) High cholesterol Stroke/cerebrovascular accident Syncope Gastric reflux Shortness of breath on exertion Sleep apnea COVID-19 (~01/18/22) Sepsis due to urinary tract infection History of transesophageal echocardiography (VIOLETTE) Wears hearing aid Wears glasses Depression Anxiety Walker as ambulation aid Arthritis Indwelling urethral catheter present Low iron Easy bruising History of hiatal hernia Former smoker History of tilt table evaluation Cardiology follow-up encounter History of echocardiogram History of stress test Enterococcus UTI H/O appendicitis Presence of stent in coronary artery (~09/08/10) Pure hypercholesterolemia Essential hypertension PTSD (post-traumatic stress disorder) Pulmonary hypertension Restless legs syndrome (RLS) REHAN (obstructive sleep apnea) Syncope and collapse Dizziness and giddiness Fatigue Shortness of breath Dyspnea Precordial chest pain 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 Atherosclerotic heart disease of [place] coronary artery without angina pectoris 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 Neck pain on left side Benign prostatic hypertrophy Coronary artery disease Home Medications ?Medication ?Instructions ?Recorded ?Last Taken ?Type fluoxetine 40 mg capsule (Prozac) 40 mg PO DAILY reflux 07/04/18 07/13/21 History acetaminophen 500 mg tablet 500 mg PO Q6H PRN Pain 06/17/20 07/13/21 History (Tylenol Extra Strength) amlodipine 5 mg tablet 5 mg PO BID blood pressure 03/17/21 07/14/21 History multivitamin 1 tab PO DAILY vitamin 02/08/22 Unknown History clopidogrel 75 mg tablet 75 mg PO DAILY anti platelet 05/05/22 Unknown History rosuvastatin 10 mg tablet 10 mg PO QHS cholesterol #90 tabs 11/24/22 Unknown Rx oxycodone 5 mg tablet 5 mg PO Q6H PRN pain 04/16/23 Unknown History lisinopril 10 mg tablet 10 mg PO BID blood pressure #180 04/11/24 Unknown Rx TABLETS nitroglycerin 0.4 mg sublingual 0.4 mg sublingual Q5-15M PRN chest 11/29/24 Unknown Rx tablet pain #25 tabs propranolol 20 mg tablet 20 mg PO BID blood pressure 11/29/24 Unknown History pantoprazole 20 mg tablet,delayed 20 mg PO QDAY #90 tabs 12/02/24 Unknown Rx release Allergy/AdvReac Type Severity Reaction Status Date / Time hydrocodone (From Vicodin) Allergy Other Verified 01/08/25 12:56 orphenadrine Allergy Unknown Verified 01/08/25 12:56 pregabalin Allergy Swelling Verified 01/08/25 12:56 atorvastatin (From Lipitor) AdvReac Severe Intolerance Verified 01/08/25 12:56 ,Myalgias Family History Father CVA (cerebral vascular accident) Mother Cardiomegaly Brother CAD (coronary artery disease) Hx CABG and valve replacement Diabetes Brother History of heart valve replacement Brother Rheumatic fever Sister Hypertension Aortic aneurysm H/O aortic valve replacement Brother Cancer bladder Brother Thyroid disorder Surgical History (Updated 01/08/25 @ 13:02 by Briseida Bailey) History of umbilical hernia repair S/P TURP History of colonoscopy H/O heart artery stent History of right hip replacement Presence of coronary angioplasty implant and graft (~09/08/10) S/P right knee arthroscopy History of appendectomy hx cervical stenosis History of vasectomy History of hydrocelectomy Social History household members: spouse housing: house Smoking Status: Former smoker pack-years: 20 Tobacco: How many years used: 22 second hand exposure: No alcohol intake: never substance use type: does not use caffeine: Yes Type: carbonated beverages Number of servings: 1 and tea what type of physical activity do you participate in: none seatbelt use: always do you feel safe at home: Yes Audit: Pertinent Findings Pertinent Findings EKG Perinent findings: November 29, 2024. Normal sinus rhythm. Stress test pertinent findings: 07/29/2024. EF is 70%. No evidence of significant ischemia or infarction. Echo (EF%) pertinent findings: 02/22/2022. EF of 65%. RVSP is 32 mmHg. No aortic stenosis. Consult pertinent findings: 11/29/2024. Ranjit NICHOLSON. 1. History of coronary artery disease-most recent stress test was negative for ischemia. Current EKG is normal sinus rhythm. Occasional right-sided chest pain unlikely to be coronary artery disease related. Continue clopidogrel, rosuvastatin, propranolol. 2. Rwprhmdmuieh-plte-bsibobiule at this time. Continue medical therapy. 3. Preoperative cardiovascular exam-from cardiac standpoint may proceed with surgery. He may hold clopidogrel 5 days prior to procedure, and restart after. Recommendation Anesthesia Recommendation Anesthesia recommendation: OPTIMIZED for anesthesia
[2025-01-10] VITALS (8 sets, daily range): BP systolic 125–169; BP diastolic 63–105; PULSE 58–71; RESP 16–18; TEMP 36.1–36.6; O2SAT 94–100; BMI 28.2
--- NOTE | 2025-01-10 14:05 | PCM.HP.STD ---
HPI - General General Date of Admission: 01/10/25 Date of Service: 01/10/25 Chief Complaint: Dysphagia and a cough HPI Narrative Details: NARESH MONZON, is a 84 M who presents regarding intermittent difficulty swallowing. He presents with his for exam. He states that his last EGD was years ago and doesn't remember if an esophageal dilation was performed, but suspects not. He reports white rice as a frequent culprit of trouble swallowing. He does report globus sensation a couple of times a week, cough, and frequent throat clearing. He denies difficulty chewing and pushing his food back with his tongue to initiate the swallow. He denies feeling heartburn, reflux. He denies nausea, emesis, abdominal pain, bloat, excess gas, diarrhea, hematochezia, and melena. He reports occasional constipation. States that he has a BM of some sorts daily, but I still feel like there's more there. He reports that if this feeling persists, he will take a dose of Milk of Magnesia for complete results. He states that he used to take Miralax as needed, but got tired of mixing the powder. Milk of Magnesia is just easier to take. And it works. He states that he only uses the Milk of Magnesia 1 to 2 times a month. He has tried Colace in the past with poor results. He states that he eats plenty of fiber, but could do better on his water intake. He is taking Plavix due to evidence of a stroke seen on MRI. He has 1 cardiac stent. [facility], [facility] Medical History High cholesterol Stroke/cerebrovascular accident Syncope Gastric reflux Shortness of breath on exertion Sleep apnea COVID-19 (~01/18/22) Sepsis due to urinary tract infection History of transesophageal echocardiography (VIOLETTE) Wears hearing aid Wears glasses Depression Anxiety Walker as ambulation aid Arthritis Indwelling urethral catheter present Low iron Easy bruising History of hiatal hernia Former smoker History of tilt table evaluation Cardiology follow-up encounter History of echocardiogram History of stress test Enterococcus UTI H/O appendicitis Presence of stent in coronary artery (~09/08/10) Pure hypercholesterolemia Essential hypertension PTSD (post-traumatic stress disorder) Pulmonary hypertension Restless legs syndrome (RLS) REHAN (obstructive sleep apnea) Syncope and collapse Dizziness and giddiness Fatigue Shortness of breath Dyspnea Precordial chest pain 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 Atherosclerotic heart disease of [place] coronary artery without angina pectoris 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 Neck pain on left side Benign prostatic hypertrophy Coronary artery disease Home Medications ?Medication ?Instructions ?Recorded ?Last Taken ?Type fluoxetine 40 mg capsule (Prozac) 40 mg PO DAILY reflux 07/04/18 01/10/25 History acetaminophen 500 mg tablet 500 mg PO Q6H PRN Pain 06/17/20 07/13/21 History (Tylenol Extra Strength) amlodipine 5 mg tablet 5 mg PO BID blood pressure 03/17/21 01/10/25 History multivitamin 1 tab PO DAILY vitamin 02/08/22 01/10/25 History clopidogrel 75 mg tablet 75 mg PO DAILY anti platelet 05/05/22 01/04/25 History rosuvastatin 10 mg tablet 10 mg PO QHS cholesterol #90 tabs 11/24/22 Unknown Rx oxycodone 5 mg tablet 5 mg PO Q6H PRN pain 04/16/23 Unknown History lisinopril 10 mg tablet 10 mg PO BID blood pressure #180 04/11/24 01/10/25 Rx TABLETS nitroglycerin 0.4 mg sublingual 0.4 mg sublingual Q5-15M PRN chest 11/29/24 Unknown Rx tablet pain #25 tabs propranolol 20 mg tablet 20 mg PO BID blood pressure 11/29/24 01/10/25 History pantoprazole 20 mg tablet,delayed 20 mg PO QDAY #90 tabs 12/02/24 Unknown Rx release Allergy/AdvReac Type Severity Reaction Status Date / Time hydrocodone (From Vicodin) Allergy Other Verified 01/10/25 13:59 orphenadrine Allergy Unknown Verified 01/10/25 13:59 pregabalin Allergy Swelling Verified 01/10/25 13:59 atorvastatin (From Lipitor) AdvReac Severe Intolerance Verified 01/10/25 13:59 ,Myalgias Family History Father CVA (cerebral vascular accident) Mother Cardiomegaly Brother CAD (coronary artery disease) Hx CABG and valve replacement Diabetes Brother History of heart valve replacement Brother Rheumatic fever Sister Hypertension Aortic aneurysm H/O aortic valve replacement Brother Cancer bladder Brother Thyroid disorder Surgical History History of umbilical hernia repair S/P TURP History of colonoscopy H/O heart artery stent History of right hip replacement Presence of coronary angioplasty implant and graft (~09/08/10) S/P right knee arthroscopy History of appendectomy hx cervical stenosis History of vasectomy History of hydrocelectomy Social History household members: spouse housing: house Smoking Status: Former smoker pack-years: 20 Tobacco: How many years used: 22 second hand exposure: No alcohol intake: never substance use type: does not use caffeine: Yes Type: carbonated beverages Number of servings: 1 and tea what type of physical activity do you participate in: none seatbelt use: always do you feel safe at home: Yes ROS Constitutional Constitutional: Denies fatigue, fever(s), poor appetite, weight gain or weight loss Gastrointestinal Gastrointestinal: Denies belching, bloating, change in bowel habits, change in stool character, chewing difficulty, coffee ground emesis, constipation, cramping, diarrhea, dyspepsia, dysphagia, early satiety, excessive flatus, fecal incontinence, heartburn, hematemesis, hematochezia, hemorrhoids, loose stools, melena, nausea, odynophagia, rectal bleeding, tenesmus, vomiting or weight changes Physical Exam Const alert, oriented x3, no apparent distress and healthy appearing General Appearance: cooperative GI normal to inspection, nondistended, normoactive bowel sounds, soft to palpation, non-tender and non-distended Percussion: normal to percussion Rectal Exam: deferred Assessment & Plan Assessment/Plan (1) Dysphagia: QUALIFIERS: Dysphagia type: esophageal phase Qualified Code(s): R13.19 - Other dysphagia (2) Chronic cough: PLAN: Assessment and Plan Assessment and Plan (1) Chronic cough: Status: Chronic (2) Dysphagia: Status: Chronic Qualifiers: Dysphagia type: esophageal phase Qualified Code(s): R13.19 - Other dysphagia Orders: Orders Swallowing Function w/Video Today R05.3 - Chronic cough, R13.10 - Dysphagia, unspecified Medications: New pantoprazole 20 mg PO QDAY 90 tabs 3RF Plan NARESH MONZON is a 84 M who presents to the office today for establishment with [facility] regarding intermittent difficulty swallowing. Discussed care plan with him and his . He has a scheduled umbilical hernia repair with at [facility] on December 13. Assured them that none of his testing or new medication would impede his surgery. pantoprazole 20mg PO daily 30minutes before eating swallowing function w/video schedule esophageal manometry schedule EGD office FU 2wks after EGD
[2025-01-10] MEDS: Lactated Ringers 1,000 ML 15 ML IV (14:13)
--- NOTE | 2025-01-10 14:29 | PCM.PRE.AN2 ---
ASA Classification* ASA Classification ASA Classification: 3 Assessment & Plan Anesthesia* Anesthesia Assessment Anesthesia Assessment: Discussed sedation and/or anesthesia options, risks, benefits, and alternatives with patient/parents/legal guardian/POA. Questions invited. The patient/parents/legal guardian/POA seems to understand and agrees to proceed with anesthesia plan. Reviewed the physical assessment, medical history, allergy history and patient home medications list prior to surgery/procedure/anesthetic and documented any changes. Performed airway and anesthesia risk assessments. Anesthesia Type Anesthesia Type: MAC History Source History Obtained from:: Patient and Chart Anesthesia Focused Assessment* Temperature: 97.8 F Pulse Rate: 58 Blood Pressure: 169/70 Respiratory Rate: 18 Pulse Ox: 100 Airway Assessment Mouth opens: >3 cm Mallampati Score: II Teeth Condition: Intact Neck Range of motion (ROM): Full ROM Labs Anesthesia Preop lab: CBC WBC 9.2 K/mm3 (4.4-11.0) 11/13/24 13:42 11/13/24 RBC 3.74 M/mm3 (4.6-6.2) L 11/13/24 13:42 11/13/24 Hgb 11.7 g/dL (13.0-16.5) L 11/13/24 13:42 11/13/24 Hct 35.2 % (40-54) L 11/13/24 13:42 11/13/24 Plt Count 381 K/mm3 (150-450) 11/13/24 13:42 11/13/24 CHEMISTRY Potassium 4.4 mmol/L (3.3-5.1) 11/13/24 13:42 11/13/24 Sodium 135 mmol/L (133-145) 11/13/24 13:42 11/13/24 Magnesium 1.9 mg/dL (1.6-2.6) 04/17/23 05:09 04/17/23 Phosphorus 3.8 mg/dL (2.5-4.9) 04/17/23 05:09 04/17/23 BUN 13 mg/dL (4-19) 11/13/24 13:42 11/13/24 Creatinine 1.00 mg/dL (0.70-1.20) 11/13/24 13:42 11/13/24 Glucose 94 mg/dL (70-99) 11/13/24 13:42 11/13/24 POC Glucose 101 mg/dL (70-110) 11/24/13 21:48 11/24/13 TSH 1.04 uIU/mL (0.358-3.74) 06/18/20 09:59 06/18/20 COAG PT 14.1 SECONDS (11.7-14.9) 04/17/23 05:09 04/17/23 Pre-Assessment Diagnosis/Proposed Procedure Planned Operative Procedure(s): EGD Anesthesia History Anesthesia History - supervisor lathing: Anesthesia History - supervisor lathing Hx Hospitalization Yes: 07/2024 ER VISIT, 01/08/25 13:03 OVERNIGHT OBS, STRESS TEST Any Problems With Anesthesia No 01/08/25 13:03 Cholinesterase deficiency No 01/08/25 13:03 You/Your Family Experience No 01/08/25 13:03 fever (hyperthermia) with Relationship Recent Exposure to Contagious No 01/10/25 14:08 Disease Does patient have nerve No 01/08/25 13:03 stimulator Patient instructed to have device shut off --Does patient have Pacemaker No 01/10/25 14:08 or ICD? When Was Last Pacemaker Check QUESTION #4 FULL TEXT: You/Your Family Experience fever (hyperthermia) with Anesthesia Last Oral Intake Last Oral intake: Last Oral Intake NPO since 11:00 01/10/25 14:08 Meds taken in AM with sips of Yes 01/10/25 14:08 water? Meds patient instructed to see medlist 01/10/25 14:08 take am of surgery PONV PONV - supervisor lathing: PONV - supervisor lathing Female No 01/08/25 13:03 HX of Motion Sickness No 01/08/25 13:03 HX of N/V After Surgery No 01/08/25 13:03 Non-Smoker Yes 01/08/25 13:03 Duration of Surgery greater No 01/08/25 13:03 than 60 minutes Number of Risk Factors 1 01/08/25 13:03 PONV Score Low Risk 01/08/25 13:03 Height & Weight Height & Weight: Anesthesia: Height & Weight Height 6 ft 1 in 01/10/25 14:08 Weight: 97 kg 01/10/25 14:08 Body Mass Index (BMI) 28.2 01/10/25 14:08 Respiratory Assessment Respiratory Assessment - supervisor lathing: Respiratory Tract Infection Hx - supervisor lathing Hx Respiratory Tract Infection No 01/08/25 13:03 STOP Sleep Apnea STOP Sleep Apnea - supervisor lathing: STOP Sleep Apnea - supervisor lathing Hx Hypertension Yes: PER PT, CONTROLLED ON 01/08/25 13:03 MEDS Hx Sleep Apnea Yes 01/08/25 13:03 CPAP No 01/08/25 13:03 BIPAP No 01/08/25 13:03 Do you snore loudly (louder than talking or can be heard Do you often feel tired/ fatigued/ sleepy during daytime? Has anyone observed you stop breathing during sleep? STOP Results Positive 01/08/25 13:03 QUESTION #5 FULL TEXT : Do you snore loudly (louder than talking or can be heard through closed doors)? Tobacco Use History Tobacco Use History - supervisor lathing: Tobacco Use History - supervisor lathing Tobacco Use Smoking Status Former smoker 01/08/25 13:03 Hx Tobacco Use No 01/08/25 13:03 Years Smoking Packs Smoked per Day Smoking Cessation Date was No - quit smoking greater 01/08/25 13:03 within the last 15 years than 15 years ago Hx Smoking Cessation Date 05/22/81 01/08/25 13:03 Hx Smoking Cessation No 01/08/25 13:03 Counseling Hematologic Medial History Hematologic Hx - supervisor lathing: Hematologic Medical Hx - drywall taper helper Hx of Blood Transfusion No 01/08/25 13:03 Hx of Transfusion in last 3 No 01/08/25 13:03 Months Date of Last Transfusion (if within last 3 months) Ever experience any problems No 01/08/25 13:03 with transfusion(s)? Specify any problems Hx of Preganancy in last 3 N/A 01/08/25 13:03 Months Nurse Filling Out Transfusion MGRIFFITH 01/08/25 13:03 & Questions: Date: 01/08/25 01/08/25 13:03 Time: 13:05 01/08/25 13:03 Patient unable to answer at this time (ie. confused, unrespo /Reproduction History /Reproductive History - supervisor lathing: /Reproductive Hx- supervisor lathing Hx Now No 01/08/25 13:03 Gestational Age (in weeks): EDC: Hx Hx Para Hx Section SAB No 01/08/25 13:03 Active Medications Active Medications: Current Medications Generic Name Dose Route Start Last Admin Trade Name Freq PRN Reason Stop Dose Admin Lactated Ringer's 1,000 mls @ 15 mls/hr 01/10/25 14:00 01/10/25 14:13 IV 15 mls/hr .Q48H ABRAHAM Administration PFSH Medical History High cholesterol Stroke/cerebrovascular accident Syncope Gastric reflux Shortness of breath on exertion Sleep apnea COVID-19 (~01/18/22) Sepsis due to urinary tract infection History of transesophageal echocardiography (VIOLETTE) Wears hearing aid Wears glasses Depression Anxiety Walker as ambulation aid Arthritis Indwelling urethral catheter present Low iron Easy bruising History of hiatal hernia Former smoker History of tilt table evaluation Cardiology follow-up encounter History of echocardiogram History of stress test Enterococcus UTI H/O appendicitis Presence of stent in coronary artery (~09/08/10) Pure hypercholesterolemia Essential hypertension PTSD (post-traumatic stress disorder) Pulmonary hypertension Restless legs syndrome (RLS) REHAN (obstructive sleep apnea) Syncope and collapse Dizziness and giddiness Fatigue Shortness of breath Dyspnea Precordial chest pain 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 skilled nursing use of drug Atherosclerotic heart disease of [place] coronary artery without angina pectoris 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 Neck pain on left side Benign prostatic hypertrophy Coronary artery disease Home Medications ?Medication ?Instructions ?Recorded ?Last Taken ?Type fluoxetine 40 mg capsule (Prozac) 40 mg PO DAILY reflux 07/04/18 01/10/25 History acetaminophen 500 mg tablet 500 mg PO Q6H PRN Pain 06/17/20 07/13/21 History (Tylenol Extra Strength) amlodipine 5 mg tablet 5 mg PO BID blood pressure 03/17/21 01/10/25 History multivitamin 1 tab PO DAILY vitamin 02/08/22 01/10/25 History clopidogrel 75 mg tablet 75 mg PO DAILY anti platelet 05/05/22 01/04/25 History rosuvastatin 10 mg tablet 10 mg PO QHS cholesterol #90 tabs 11/24/22 Unknown Rx oxycodone 5 mg tablet 5 mg PO Q6H PRN pain 04/16/23 Unknown History lisinopril 10 mg tablet 10 mg PO BID blood pressure #180 04/11/24 01/10/25 Rx TABLETS nitroglycerin 0.4 mg sublingual 0.4 mg sublingual Q5-15M PRN chest 11/29/24 Unknown Rx tablet pain #25 tabs propranolol 20 mg tablet 20 mg PO BID blood pressure 11/29/24 01/10/25 History pantoprazole 20 mg tablet,delayed 20 mg PO QDAY #90 tabs 12/02/24 Unknown Rx release Allergy/AdvReac Type Severity Reaction Status Date / Time hydrocodone (From Vicodin) Allergy Other Verified 01/10/25 13:59 orphenadrine Allergy Unknown Verified 01/10/25 13:59 pregabalin Allergy Swelling Verified 01/10/25 13:59 atorvastatin (From Lipitor) AdvReac Severe Intolerance Verified 01/10/25 13:59 ,Myalgias Family History Father CVA (cerebral vascular accident) Mother Cardiomegaly Brother CAD (coronary artery disease) Hx CABG and valve replacement Diabetes Brother History of heart valve replacement Brother Rheumatic fever Sister Hypertension Aortic aneurysm H/O aortic valve replacement Brother Cancer bladder Brother Thyroid disorder Surgical History History of umbilical hernia repair S/P TURP History of colonoscopy H/O heart artery stent History of right hip replacement Presence of coronary angioplasty implant and graft (~09/08/10) S/P right knee arthroscopy History of appendectomy hx cervical stenosis History of vasectomy History of hydrocelectomy Social History household members: spouse housing: house Smoking Status: Former smoker pack-years: 20 Tobacco: How many years used: 22 second hand exposure: No alcohol intake: never substance use type: does not use caffeine: Yes Type: carbonated beverages Number of servings: 1 and tea what type of physical activity do you participate in: none seatbelt use: always do you feel safe at home: Yes Prior Cardiac Testing/Procedures Prior Cardiac Testing/Procedures: VIOLETTE Review of Systems (Anesthesia) ROS Narrative System reviewed and no additional complaints, except as documented. Physical Exam Const alert and oriented x3 Orientation / Consciousness: awake HEENT dentition normal Neck full ROM Resp normal respiratory effort Extremity full ROM Neuro oriented x3
--- NOTE | 2025-01-10 15:00 | EGD_PTH ---
PATIENT: NARESH MONZON LOC: EN U#:[id number] AGE/SX: 84/M ROOM: RE01/10/[address]: Dr. Josue Seals DO : 1940 BED: DIS: 01/10/2025 SPEC #: [id number] RECD: 01/10/25 16:45 STATUS: PARKER REElizabeth #: [id number] ELIE: 01/10/25 15:[address]: Josue Seals DEPT: SURGICAL PATHOLOGY RECD BY: Brian Muñoz ENTERED: 01/13/25 10:48 SP TYPE: EGD BIOPSY DARRIAN DR: Dr. Harvinder Vaughan MD Tissues: A - Esophagus, NOS Procedures: Surgery Specimen Level IV HEADER OPERATION: EGD, biopsy PRE-OP DIAGNOSIS: Chronic cough, dysphagia TISSUE SUBMITTED: A- Random esophagus biopsy MICROSCOPIC DIAGNOSIS A. Esophagus, random, biopsies: * Benign squamous epithelium with a microfocal area of superficial erosion with keratosis MICROSCOPIC DESCRIPTION Slides are reviewed. GROSS DESCRIPTION A. Received in fixative is one container labeled with the patient's name and designated Random esophagus biopsy. The specimen consists of multiple irregular fragments of light leonard soft tissue that in aggregate measure 1.4 x 0.5 x 0.1 cm. The specimen is totally submitted in one cassette. AK 01/13/2025 CPT:09355
[2025-01-10] MEDS: Lidocaine 1% (5 ml sdv) 5 ML Vial IV (15:07)
--- NOTE | 2025-01-10 15:20 | PCM.POST.ANE ---
Anesthesia: Postop Eval I Current Vital Signs Temperature: 98 F Pulse Rate: 65 Blood Pressure: 169/74 Respiratory Rate: 16 Pulse Ox: 99 Oxygen Delivery Method: Room Air Assessment Airway patent: Yes Spontaneous unlabored respirations: Yes Mental status: Awake and Calm nausea: No Vomiting: No Anesthesia Complication: No Fluid Hydration Crystalloid volume administer (ml): 100 Total IV fluid infused: 100 Progress Note Anesthesia document: Postop Eval 1 completed: Yes
--- NOTE | 2025-01-10 15:23 | OP.PROVAT_ITS ---
01/10/2025 Harvinder Vaughan [address] [place] [address] Re : Upper GI endoscopy procedure for Rony Nevarezer Dear Dr. Vaughan This procedure was performed on Friday, January 10, 2025. My impressions and recommendations are as follows: Impressions : - Esophageal mucosal changes suggestive of eosinophilic esophagitis. Dilated. - Abnormal esophageal motility. - No gross lesions in the stomach. - No gross lesions in the entire examined duodenum. - Biopsies were taken with a cold forceps for evaluation of eosinophilic esophagitis. Recommendations : - Discharge patient to home. - Resume previous diet. - Continue present medications. - Await pathology results. - Use Protonix (pantoprazole) 40 mg PO BID for 3 months. My findings are described in the full procedure note, which is enclosed. If I can be of further assistance, please feel free to contact me at . Sincerely, Josue Seals, 01/10/2025 3:23:19 PM This report has been signed electronically.
--- NOTE | 2025-01-10 15:23 | OP.EGD_ITS ---
Patient Name: Rony Nj Procedure Date: 01/10/2025 3:00 PM Date of : 1940 Age: 84 Procedure: Upper GI endoscopy Indications: Dysphagia, Heartburn Providers: Josue Seals DO Referring MD: Harvinder Vaughan Medicines: Monitored Anesthesia Care Patient Profile: This is an 84 year old male. Refer to note in patient chart for documentation of history and physical. Patient has symptoms of dysphagia with both liquids and solids. Complications: No immediate complications. Procedure: Pre-Anesthesia Assessment: - Prior to the procedure, a History and Physical was performed, and patient medications and allergies were reviewed. The patient is competent. The risks and benefits of the procedure and the sedation options and risks were discussed with the patient. All questions were answered and informed consent was obtained. Patient identification and proposed procedure were verified by the physician in the pre-procedure area. Mental Status Examination: alert and oriented. Airway Examination: normal oropharyngeal airway and neck mobility. Respiratory Examination: clear to auscultation. CV Examination: normal. Prophylactic Antibiotics: The patient does not require prophylactic antibiotics. Prior Anticoagulants: The patient has taken no anticoagulant or antiplatelet agents except for NSAID medication. ASA Grade Assessment: II - A patient with mild systemic disease. After reviewing the risks and benefits, the patient was deemed in satisfactory condition to undergo the procedure. The anesthesia plan was to use monitored anesthesia care (MAC). Immediately prior to administration of medications, the patient was re-assessed for adequacy to receive sedatives. The heart rate, respiratory rate, oxygen saturations, blood pressure, adequacy of pulmonary ventilation, and response to care were monitored throughout the procedure. The physical status of the patient was re-assessed after the procedure. After obtaining informed consent, the endoscope was passed under direct vision. Throughout the procedure, the patient's blood pressure, pulse, and oxygen saturations were monitored continuously. The Endoscope was introduced through the mouth, and advanced to the second part of duodenum. The upper GI endoscopy was accomplished without difficulty. The patient tolerated the procedure well. Scope In: 3:12:36 PM Scope Out: 3:18:41 PM Total Procedure Duration Time 0 hours 6 minutes 5 seconds Findings: Mucosal changes including ringed esophagus, feline appearance, longitudinal furrows, small-caliber esophagus, circumferential folds, congestion (edema) and stenosis were found in the entire esophagus. Biopsies were obtained from the proximal and distal esophagus with cold forceps for histology of suspected eosinophilic esophagitis. Verification of patient identification for the specimen was done. Estimated blood loss was minimal. A guidewire was placed and the scope was withdrawn. Dilation was performed with a Savary dilator with no resistance at 51 Fr. The dilation site was examined and showed moderate improvement in luminal narrowing. Estimated blood loss was minimal. Abnormal motility was noted in the esophagus. The cricopharyngeus was abnormal. There are extra peristaltic waves in the esophageal body. The distal esophagus/lower esophageal sphincter is spastic, but gives up passage to the endoscope. No gross lesions were noted in the stomach. No gross lesions were noted in the entire examined duodenum. Impression: - Esophageal mucosal changes suggestive of eosinophilic esophagitis. Dilated. - Abnormal esophageal motility. - No gross lesions in the stomach. - No gross lesions in the entire examined duodenum. - Biopsies were taken with a cold forceps for evaluation of eosinophilic esophagitis. Recommendation: - Discharge patient to home. - Resume previous diet. - Continue present medications. - Await pathology results. - Use Protonix (pantoprazole) 40 mg PO BID for 3 months. Procedure Code(s): --- Professional --- 00732, Esophagogastroduodenoscopy, flexible, transoral; with insertion of guide wire followed by passage of dilator(s) through esophagus over guide wire 23127, 59,51, Esophagogastroduodenoscopy, flexible, transoral; with biopsy, single or multiple CPT copyright 2021 [employer]. All rights reserved. The codes documented in this report are preliminary and upon bullet lubricating machine operator review may be revised to meet current compliance requirements. Josue Seals DO 01/10/2025 3:23:19 PM This report has been signed electronically. Number of Addenda: 0 Note Initiated On: 01/10/2025 3:00 PM
--- NOTE | 2025-01-10 15:27 | POSTOPAN2_ITS ---
Anesthesia Postop Eval I Sum Postop Eval Completion status Anesthesia document: Postop Eval 1 completed: Yes Anesthesia Postop Eval I Summary Anesthesia Postop Eval I Summary: Anesthesia Postop Eval I: Assessment Summary Airway patent Yes 01/10/25 15:21 PHARMACY OPERATIONS MANAGER.MDOT Spontaneous unlabored Yes 01/10/25 15:21 PHARMACY OPERATIONS MANAGER.MDOT respirations Mental status Awake,Calm 01/10/25 15:21 PHARMACY OPERATIONS MANAGER.MDOT nausea No 01/10/25 15:21 PHARMACY OPERATIONS MANAGER.MDOT Vomiting No 01/10/25 15:21 PHARMACY OPERATIONS MANAGER.MDOT Anesthesia Postop Eval I: Fluid Summary Crystalloid volume administer 100 01/10/25 15:21 PHARMACY OPERATIONS MANAGER.MDOT (ml) Colloids volume administered ( ml) Blood Product volume administered (ml) Total IV fluid infused 100 01/10/25 15:21 PHARMACY OPERATIONS MANAGER.MDOT Anesthesia Postop Eval I: Summary Notes Anesthesia Complication No 01/10/25 15:21 PHARMACY OPERATIONS MANAGER.MDOT Anesthesia Complication Comment: Post-operative progress note Anesthesia: Postop Eval II Evaluation Mental status: Awake and Calm Pain Level: 0 nausea: No Vomiting: No Complications Anesthesia Complication: No
--- NOTE | 2025-01-10 15:27 | PCM.POSTANE2 ---
Anesthesia Postop Eval I Sum Postop Eval Completion status Anesthesia document: Postop Eval 1 completed: Yes Anesthesia Postop Eval I Summary Anesthesia Postop Eval I Summary: Anesthesia Postop Eval I: Assessment Summary Airway patent Yes 01/10/25 15:21 REGENERATION OPERATOR.MDOT Spontaneous unlabored Yes 01/10/25 15:21 REGENERATION OPERATOR.MDOT respirations Mental status Awake,Calm 01/10/25 15:21 REGENERATION OPERATOR.MDOT nausea No 01/10/25 15:21 REGENERATION OPERATOR.MDOT Vomiting No 01/10/25 15:21 REGENERATION OPERATOR.MDOT Anesthesia Postop Eval I: Fluid Summary Crystalloid volume administer 100 01/10/25 15:21 REGENERATION OPERATOR.MDOT (ml) Colloids volume administered ( ml) Blood Product volume administered (ml) Total IV fluid infused 100 01/10/25 15:21 REGENERATION OPERATOR.MDOT Anesthesia Postop Eval I: Summary Notes Anesthesia Complication No 01/10/25 15:21 REGENERATION OPERATOR.MDOT Anesthesia Complication Comment: Post-operative progress note Anesthesia: Postop Eval II Evaluation Mental status: Awake and Calm Pain Level: 0 nausea: No Vomiting: No Complications Anesthesia Complication: No
== END 2025-01-10 16:13 | disposition home or self-care (01) ==
LOC: EN 13:43 → AC 13:44
PROVIDERS: PCP Family Medicine; Referring Provider Family Medicine; Visit Provider Internal Medicine Gastroenterology
PROC: 0DJ08ZZ Inspection of Upper Intestinal Tract, Via Natural or Artificial Opening Endoscopic (ICD-10-PCS; CPT 43235; principal; 2025-01-10 14:55)
DX: R13.10 Dysphagia, unspecified (principal); Z95.5 Presence of coronary angioplasty implant and graft; I25.10 Atherosclerotic heart disease of native coronary artery without angina pectoris; E78.00 Pure hypercholesterolemia, unspecified; Z87.891 Personal history of nicotine dependence; K21.9 Gastro-esophageal reflux disease without esophagitis; I10 Essential (primary) hypertension; Z79.02 Long term (current) use of antithrombotics/antiplatelets; Z86.73 Personal history of transient ischemic attack (TIA), and cerebral infarction without residual deficits; Z79.899 Other long term (current) drug therapy; Z96.641 Presence of right artificial hip joint; Z90.49 Acquired absence of other specified parts of digestive tract; Z98.52 Vasectomy status; R05.3 Chronic cough; K22.89 Other specified disease of esophagus; L57.0 Actinic keratosis
CPT/HCPCS: 43248; 43239; 88305; C1769

== ENCOUNTER 2025-01-27 20:48 | Emergency (ER) | payer MEDICARE, OTHER, SELFPAY ==
[2025-01-27 20:48] VITALS: BP 156/87; PULSE 70; RESP 16; TEMP 37; O2SAT 98
--- NOTE | 2025-01-27 21:48 | EX.ED.DYSGE1 ---
HPI History of Present Illness Chief Complaint: Rash Narrative Narrative: Patient is a 84-year-old male with past medical history of CVA, hypercholesteremia, depression, hypertension, pulmonary hypertension, REHAN who presents to the emergency department chief complaint of rash. Patient states that the rash has been there for approximately 1 to 2 days and is painful and itchy. The patient's at bedside notes that he told her about it today. They note that he was restarted on Protonix and did some reading on the information that was sent with the prescription and they were concerned that this rash was secondary to this. Patient otherwise feels fine and has no complaints. [facility] Medical History High cholesterol Stroke/cerebrovascular accident Syncope Gastric reflux Shortness of breath on exertion Sleep apnea COVID-19 (~01/18/22) Sepsis due to urinary tract infection History of transesophageal echocardiography (VIOLETTE) Wears hearing aid Wears glasses Depression Anxiety Walker as ambulation aid Arthritis Indwelling urethral catheter present Low iron Easy bruising History of hiatal hernia Former smoker History of tilt table evaluation Cardiology follow-up encounter History of echocardiogram History of stress test Enterococcus UTI H/O appendicitis Presence of stent in coronary artery (~09/08/10) Pure hypercholesterolemia Essential hypertension PTSD (post-traumatic stress disorder) Pulmonary hypertension Restless legs syndrome (RLS) REHAN (obstructive sleep apnea) Syncope and collapse Dizziness and giddiness Fatigue Shortness of breath Dyspnea Precordial chest pain 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 Atherosclerotic heart disease of [place] coronary artery without angina pectoris 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 Neck pain on left side Benign prostatic hypertrophy Coronary artery disease Home Medications ?Medication ?Instructions ?Recorded ?Last Taken ?Type fluoxetine 40 mg capsule (Prozac) 40 mg PO DAILY reflux 07/04/18 01/10/25 History acetaminophen 500 mg tablet 500 mg PO Q6H PRN Pain 06/17/20 07/13/21 History (Tylenol Extra Strength) amlodipine 5 mg tablet 5 mg PO BID blood pressure 03/17/21 01/10/25 History multivitamin 1 tab PO DAILY vitamin 02/08/22 01/10/25 History clopidogrel 75 mg tablet 75 mg PO DAILY anti platelet 05/05/22 01/04/25 History rosuvastatin 10 mg tablet 10 mg PO QHS cholesterol #90 tabs 11/24/22 Unknown Rx oxycodone 5 mg tablet 5 mg PO Q6H PRN pain 04/16/23 Unknown History lisinopril 10 mg tablet 10 mg PO BID blood pressure #180 04/11/24 01/10/25 Rx TABLETS nitroglycerin 0.4 mg sublingual 0.4 mg sublingual Q5-15M PRN chest 11/29/24 Unknown Rx tablet pain #25 tabs propranolol 20 mg tablet 20 mg PO BID blood pressure 11/29/24 01/10/25 History pantoprazole 20 mg tablet,delayed 20 mg PO QDAY #90 tabs 12/02/24 Unknown Rx release pantoprazole 40 mg tablet,delayed 40 mg PO BID #60 tabs 01/10/25 Unknown Rx release acyclovir 800 mg tablet 800 mg PO Q4H 6 days #36 tabs 01/27/25 Unknown Rx Allergy/AdvReac Type Severity Reaction Status Date / Time hydrocodone (From Vicodin) Allergy Other Verified 01/27/25 20:51 orphenadrine Allergy Unknown Verified 01/27/25 20:51 pregabalin Allergy Swelling Verified 01/27/25 20:51 atorvastatin (From Lipitor) AdvReac Severe Intolerance Verified 01/27/25 20:51 ,Myalgias Family History Father CVA (cerebral vascular accident) Mother Cardiomegaly Brother CAD (coronary artery disease) Hx CABG and valve replacement Diabetes Brother History of heart valve replacement Brother Rheumatic fever Sister Hypertension Aortic aneurysm H/O aortic valve replacement Brother Cancer bladder Brother Thyroid disorder Surgical History History of umbilical hernia repair S/P TURP History of colonoscopy H/O heart artery stent History of right hip replacement Presence of coronary angioplasty implant and graft (~09/08/10) S/P right knee arthroscopy History of appendectomy hx cervical stenosis History of vasectomy History of hydrocelectomy Social History household members: spouse housing: house Smoking Status: Former smoker pack-years: 20 Tobacco: How many years used: 22 second hand exposure: No alcohol intake: never substance use type: does not use caffeine: Yes Type: carbonated beverages Number of servings: 1 and tea what type of physical activity do you participate in: none seatbelt use: always do you feel safe at home: Yes ROS ROS ED ROS Narrative Constitutional: Denies any fevers or chills Eyes: Denies double vision blurry vision changes vision Cardiovascular: Denies chest pain Respiratory: Denies shortness of breath Abdomen: Denies nausea vomit diarrhea Neurological: Denies numbness, wheeze, tingling Skin: Complains of rash as noted above EXAM Physical Exam Narrative Exam Narrative: General: Patient was lying in bed rest comfortably did not appear to be in acute distress Head: Atraumatic, normocephalic Eyes: PERRL bilaterally, EOMI bilaterally, no conjunctival injection noted Neck: Soft, supple, trachea midline Cardiovascular: Regular rate Extremities: +4/5 strength noted in the bilateral upper and lower extremities Neurological: Patient likely has and that he was at [facility] the year is 2024 Skin: Warm, dry, patient has evidence of shingles noted on the right lateral chest wall this is blanching no petechia no purpura noted no sloughing of the skin noted Const Vital Signs: 01/27/25 20:48 Temperature 98.6 F Temperature Source Oral Pulse Rate 70 Respiratory Rate 16 Blood Pressure 156/87 H Blood Pressure Mean 110 Pulse Ox 98 Oxygen Delivery Method Room Air MDM MDM MDM Narrative Medical decision making narrative: Patient is 84-year-old male who presents to the emergency department with concern for rash on the right side. On the differential diagnosis includes but limited to shingles, cellulitis. Clinically the patient has shingles he will be given his dose of acyclovir here in the emergency department prescription was sent to the pharmacy. They are advised to rotate Tylenol and ibuprofen [id number] for mild to moderate pain. They are encouraged return with worsening symptoms or concerns otherwise he can follow-up with his primary care physician outpatient setting. All question concerns answered is discharged home in stable condition. Discharge Plan Triage Chief Complaint: Rash ED Provider: Carlos Gaytan Dx/Rx/DC Orders Clinical Impression: Shingles, REHAN (obstructive sleep apnea), Pulmonary hypertension, Type II diabetes mellitus, History of hypertension Prescriptions: New acyclovir 800 mg tablet 800 mg PO Q4H 6 Days Qty: 36 0RF Rx Instructions: while awake; give 5 doses in 24 hours No Action fluoxetine [Prozac] 40 mg capsule 40 mg PO DAILY Patient Comments: not taking while taking antibiotic linezolid acetaminophen [Tylenol Extra Strength] 500 mg tablet 500 mg PO Q6H PRN (Reason: Pain) pantoprazole 20 mg tablet,delayed release (DR/EC) 20 mg PO QDAY Qty: 90 3RF nitroglycerin 0.4 mg tablet, sublingual 0.4 mg SUBLINGUAL Q5-15M PRN (Reason: chest pain) Qty: 25 1RF Rx Instructions: do not exceed 3 doses per episode multivitamin Tablet 1 tab PO DAILY oxycodone 5 mg tablet 5 mg PO Q6H PRN (Reason: pain) Patient Comments: TAKE 1 TO 2 TABLET BY MOUTH EVERY SIX HOURS NEEDED FOR PAIN propranolol 20 mg tablet 20 mg PO BID amlodipine 5 mg tablet 5 mg PO BID clopidogrel 75 mg tablet 75 mg PO DAILY rosuvastatin 10 mg tablet 10 mg PO QHS Qty: 90 3RF lisinopril 10 mg tablet 10 mg PO BID Qty: 180 3RF pantoprazole 40 mg tablet,delayed release (DR/EC) 40 mg PO BID Qty: 60 3RF Primary Care Provider: Harvinder Vaughan Referrals: Harvinder Vaughan MD [Primary Care Provider] - Activity Restrictions/Additional Instructions: Take medication that was sent to your pharmacy as prescribed for the shingles. Rotate Tylenol and ibuprofen [id number] for pain control when you do this you take 7 every 3 hours for pain max dose of Tylenol in 24 hours 4000 mg max dose of ibuprofen in 24 hours 3200 mg. Return with worsening symptoms or any concerns. Print Language: [place] Disposition Disposition: Home, Self Care
[2025-01-27 22:15] VITALS: BP 142/82; PULSE 71; RESP 16; TEMP 37; O2SAT 98
--- OUTSIDE RECORDS SUMMARY | 2025-01-27 22:21 | XMS RPT_ITS | CCD ---
Author Organization [facility] CliniSyoh Care Team Providers Care Research Neuropsychologist Name Role Phone [facility] Nurse Unavailable Unavailable George Vaughan MD Primary Care Provider Flip Kramer Unavailable Jalen Ibarra Unavailable Jose G Nichole Unavailable OsmanJaguar mosley Unavailable Erik Guajardo Unavailable George Vaughan MD Primary Care Provider Flip Kramer Unavailable Jalen Ibarra Unavailable Jose G Nichole Unavailable OsmanJaguar mosley Unavailable Erik Guajardo Unavailable [phone] George Vaughan Primary Care Provider Dr. George Vaughan Referring Provider Danielle BAIRD, PA Mallorie Kim Attending Provider George Vaughan MD Primary Care Provider Flip Kramer Unavailable Jalen Ibarra Unavailable Jose G Nichole Unavailable OsmanJaguar mosley Unavailable Erik Guajardo Unavailable Dr. Flip Kramer Attending Provider [phone] George Vaughan MD Primary Care Provider Flip Kramer Unavailable Jalen Ibarra MD Unavailable Jose G Nichole Unavailable OsmanJaguar mosley Rubina Unavailable Erik Guajardo Unavailable Dr. George Vaughan Primary Care Provider Dr. Flip Kramer Attending Provider Dr. George Vaughan Referring Provider Danielle BAIRD, PA Mallorie Kim Attending Provider Danielle BAIRD, PA Mallorie Kim Other Provider Jalen Ibarra MD Unavailable Dionisio Araiza Unavailable Erik Guajardo Unavailable Erik Guajardo MD Unavailable Dr. George Vaughan Primary Care Provider Dr. George Vaughan Referring Provider Danielle BAIRD, PA Mallorie Kim Attending Provider Dr. George Vaughan Primary Care Provider Dr. Angel Mix Emergency Provider Dr. Juan Pike Admit Provider Unavailable Dr. Juan Pike Attending Provider Unavail Dr. Juan Roman Other Provider Unavailable Dr. Nini Brown Attending Provider Dr. Nini Brown Other Provider Dr. Sidney Arguello Attending Provider Flip Kramer MD Unavailable Dr. George Vaughan Primary Care Provider Roof LEGAL EXECUTIVE ASSISTANT, LEGAL EXECUTIVE ASSISTANT-C Cale Murrell Attending Provider George Vaughan MD Primary Care Provider T[place] LAB SUPPORT TECH.FORM SETTER STEEL PAN FORMS, Delia Unavailable Scott LAB SUPPORT TECH.FORM SETTER STEEL PAN FORMS, Zander Unavailable OsmanJaguar mosley DO Unavailable Alexus FUNEZ, Dr. Blanton Primary Care Provider Lavon FUNEZ, Dr. Hernandez Emergency Provider Maldonado FUNEZ, Dr. Nini Pineda Admit Provider Maldonado FUNEZ, Dr. Nini Pineda Attending Provider Maldonado FUNEZ, Dr. Nini Pineda Other Provider Deana HAY, Dr. Mccracken Attending Provider Maldonado FUNEZ, Dr. Nini Pineda Attending Provider Deana HAY, Dr. Mccracken Other Provider Darryl FUNEZ, Dr. Hutchins Attending Provider [place] LAB SUPPORT TECH.FORM SETTER STEEL PAN FORMS, Delia Unavailable [facility] LAB SUPPORT TECH.FORM SETTER STEEL PAN FORMS, Delia Aleta Unavailable RosaMaycol HAY, Dr. Humphreys Emergency Provider Alexus FUNEZ, Dr. Blanton Primary Care Provider RosaMaycol HAY, Dr. Humphreys Attending Provider Alexus FUNEZ, Dr. Blanton Referring Provider Harika Graham Attending Provider Kristan August Attending Provider Dr. Josue Seals DO Attending Provider SHELDON SLATER Attending Unavailable SHELDON SLATER Admitting Unavailable GEORGE VAUGHAN Primary Care Unavailable Kristan August Referring Provider GEORGE VAUGHAN Attending Unavailable SELF Referring Unavailable GEORGE VAUGHAN Primary Care Unavailable GEORGE VAUGHAN Primary Care Unavailable GEORGE VAUGHAN Primary Care Unavailable JESSY WELDON Attending Unavailable LANDON STRANGE JR Attending Unavailable ELDERBROCK, GEORGE D Primary Care Unavailable ELDERBROCK, GEORGE D Primary Care Unavailable GERTRUDE ALLEN Attending Unavailable ELDERBROCK, GEORGE D Referring Unavailable LANDON STRANGE JR Attending Unavailable ELDERBROCK, GEORGE D Primary Care Unavailable ELDERBROCK, GEORGE D Primary Care Unavailable GERTRUDE ALLEN Attending Unavailable ELDERBROCK, GEORGE D Primary Care Unavailable ELDERBROCK, GEORGE D Primary Care Unavailable NOHEMY, SHELDON P Referring Unavailable ELDERBROCK, GEORGE D Primary Care Unavailable NOHEMY, SHELDON P Attending Unavailable ELDERBROCK, GEORGE D Primary Care Unavailable ELDERBROCK, GEORGE D Referring Unavailable ELDERBROCK, GEORGE D Primary Care Unavailable JESSY WELDON Referring Unavailable JESSY WELDON Attending Unavailable Friend DO, Dr. Salas Other Provider Elderbrock, George Primary Care Unavailable Kristan Huber Attending Unavailable Kristan Huber Referring Unavailable Elderbrock, George Referring Unavailable Elderbrock, George Primary Care Unavailable FriendJosue Attending Unavailable Elderbrock, George Primary Care Unavailable Petr Perry Attending UnavailDavid Keith Attending Unavailable Elderbrock, George Primary Care Unavailable Elderbrock, George Primary Care Unavailable Koram, Nini Miriam Admitting Unavailable Koram, Nini Miriam Consulting Unavailable Nawaf Leblanc Attending Unavailable Elderbrock, George Referring Unavailable Elderbrock, George Primary Care Unavailable FriendJosue Attending Unavailable Elderbrock, George Referring Unavailable Elderbrock, George Primary Care Unavailable Kristan Huber Attending Unavailable Elderbrock, George Primary Care Unavailable Harika Church NP Attending Unavailable Elderbrock, George Referring Unavailable Elderbrock, George Referring Unavailable Elderbrock, George Primary Care Unavailable FriendJosue Consulting Unavailable FriendJosue Attending Unavailable Elderbrock, George Primary Care Unavailable Koram, Nini Miriam Consulting Unavailable Koram, Nini Miriam Admitting Unavailable Nawaf Leblanc Attending Unavailable Nawaf Leblanc Consulting Unavailable Cuong Andrews Attending UnavailNini Ann Attending Unavailable Allergies Allergy Classification Reported Allergen(s) Allergy Type Date of Onset Reaction(s) Facility (1 source) acetaminophen / HYDROcodone drug allergy 1 [employer] Work Phone: (1 source) Adrenergic Beta-Antagonists drug allergy 04-25-201 1 Sinus stephanie severe [facility] Work Phone: (1 source) atorvastatin drug allergy 1 Intolerance, Myalgias [facility] Work Phone: (1 source) gabapentin drug allergy 7 edema in hands, rash, elevated BP [facility] Work Phone: (20 sources) Acetaminophen / HYDROcodone; Translations: [HYDROCODONE-ACET AMINOPHEN] Drug Allergy 7 [facility] Work Phone: (20 sources) gabapentin; Translations: [GABAPENTIN] Drug Allergy 7 Swelling [facility] (20 sources) Orphenadrine; Translations: [ORPHENADRINE CITRATE] Drug Allergy 6 GI Upset [facility] (20 sources) oxyCODONE Drug Allergy 9 Mental Status Change [facility] (20 sources) pregabalin; Translations: [PREGABALIN] Drug Allergy 7 Swelling [facility] (18 sources) atorvastatin Drug Allergy 2 Intolerance,Natalie lgias [facility] (18 sources) HYDROcodone Drug Allergy 2 Other [facility] Comment on above: Severe nightmares (18 sources) Orphenadrine Drug Allergy 2 Unknown [facility] (1 source) atorvastatin Drug Allergy 5 [facility] (1 source) HYDROcodone Drug Allergy 5 [facility] (1 source) Orphenadrine Drug Allergy 5 [facility] (1 source) pregabalin Drug Allergy 5 [facility] Medications Current Medications Medication Drug Class(es) Dates Sig (Normalized) Sig (Original) acetaminophen 500 mg oral tablet (20 sources) Start: 06-17-2020 take 1 tablet by mouth every six hours as needed for pain Acetaminophen (Tylenol Extra Strength) 500 mg tablet Active 500 mg PO EVERY 6 HOURS as needed for Pain June 17, 2020 1:00am Comment on above: Take 1 tablet by ella th every 6 hours as needed for pain. acetaminophen 325 mg / oxyCODONE hydrochloride 5 mg oral tablet (20 sources) Opioid Agonist Start: 12-13-2024 End: 12-18-2024 take 1 tablet by mouth every six hours as needed oxyCODONE-acetamino phen (PERCOCET) 5-325 mg tablet Indications: Umbilical hernia without obstruction and without gangrene Take 1 tablet by mouth every 6 hours as needed for up to 5 days. 20 tablet 12/13/2024 11:28 AM EDT 12/13/2024 12/18/2024 Active Start: 03-12-2019 End: 09-18-2019 Oxycodone-Acetaminophen 5-32 5 mg tablet Discontinued 2 {tbl} PO EVERY 6 HOURS 0 March 12, 2019 12:00am September 18, 2019 2:16pm Start: 03-12-2019 End: 09-18-2019 take 2 tablets by mouth every six hours Oxycodone-Acetaminophen Discontinued 2 TABLET PO EVERY 6 HOURS March 12, 2019 12:00am September 18, 2019 2:16pm Start: 09-13-2010 End: 06-12-2014 PERCOCET 5-325 MG TABS As ne eded OXYCODONE-ACETAMINOPHEN [id number] Mallorie Santos PA-C Start: 09-13-2010 PERCOCET 5-325 MG TABS As needed OXYCODONE-ACETAMINOPHEN [id number] Radha Rodriguez amLODIPine 5 mg oral tablet (20 sources) Dihydropyridine Calcium Channel Anderson Start: 04-29-2021 End: 05-04-2022 take 1 tablet by mouth once daily amLODIPine (NORVASC) 5 mg tablet Indications: Essential hypertension, benign Take 1 tablet by mouth once daily. 90 tablet 3 03/15/2022 05/04/2022 Discontinued Start: 03-17-2021 End: 03-17-2021 take 1 tablet by mouth once daily Amlodipine 5 mg tablet Discontinued 5 mg PO DAILY March 17, 2021 8:36am March 17, 2021 2:25pm Start: 06-11-2012 take 1 tablet by ella th once daily AMLODIPINE BESYLATE 5 MG TABS One tablet by mouth daily AMLODIPINE BESYLATE [id number] Flip Kramer MD Start: 09-13-2010 End: 05-27-2024 take 1 tablet by mouth twice daily Amlodipine 5 mg tablet Discontinued 5 mg PO TWICE A DAY March 17, 2021 2:25pm March 17, 2021 4:42pm Comment on above: Take 1 tablet by ella th once daily. Take 1 tablet by ella th twice daily. Take 1 tablet by ella th two times a day. amoxicillin 500 mg oral capsule (20 sources) Penicillin-class Antibacterial Start: 3 End: 5 amoxicillin (AMOXIL) 500 mg capsule Indications: History of total right hip arthroplasty 4 capsules 1 hours prior to dental procedure. 4 capsule 4 11/20/2024 Active Comment on above: 4 capsules 1 hours p rior to dental procedure. ciclopirox 80 mg/ml topical solution (3 sources) Start: 3 End: 3 Ciclopirox (LOPROX) 8 % solution Apply to affected area daily at bedtime. 6.6 mL 3 12/19/2022 01/18/2023 Active Comment on above: Apply to affected ar ea daily at bedtime. clopidogrel 75 mg oral tablet (20 sources) [id number] Platelet Inhibitor Start: 2 End: 5 take 1 tablet by mouth once daily Clopidogrel 75 mg tablet Active 75 mg PO DAILY May 05, 2022 1:00am anti platelet Start: 02-07-2022 End: 02-28-2022 take 1 tablet by mouth once daily clopidogrel (PLAVIX) 75 mg tablet Take 1 tablet by mouth once daily for 21 days. 21 tablet 0 02/07/2022 Active Start: 10-14-2010 End: 07-29-2015 take 1 tablet by mouth once daily PLAVIX 75 MG TABS One tablet by mouth daily CLOPIDOGREL BISULFATE [id number] Sheldon Sawant MD Comment on above: Take 1 tablet by ella th once daily for 21 days. Take 1 tablet by ella th once daily. TAKE 1 TABLET BY ELLA TH EVERY DAY FLUoxetine 40 mg oral capsule (20 sources) Serotonin Reuptake Inhibitor Start: 07-04-2018 End: 02-28-2024 take 1 capsule by mouth once daily Fluoxetine (Prozac) 40 mg capsule Active 40 mg PO DAILY July 04, 2018 1:00am reflux Start: 01-02-2018 End: 07-04-2018 take 1 capsule by mouth once daily Fluoxetine 20 mg capsule Discontinued 20 mg PO DAILY January 02, 2018 11:13am July 04, 2018 4:05pm Start: 11-29-2017 End: 01-02-2018 take 2 capsules by mouth once daily Fluoxetine 20 mg capsule Discontinued 40 mg PO DAILY November 29, 2017 1:52pm January 02, 2018 11:13am Start: 11-29-2017 End: 01-02-2018 take 40 mg by mouth once daily Fluoxetine Discontinued 40 MG PO DAILY November 29, 2017 1:52pm January 02, 2018 11:13am Start: 12-08-2015 End: 11-29-2017 take 1 capsule by mouth once daily Fluoxetine 20 MG capsule Discontinued 20 mg PO DAILY December 08, 2015 12:00am November 29, 2017 1:53pm Start: 06-11-2012 End: 12-11-2013 take 1 tablet by mouth once daily FLUOXETINE HCL 20 MG TABS One tablet by mouth daily FLUOXETINE HCL [id number] Flip Kramer MD Start: 09-13-2010 End: 09-28-2011 take 1 tablet by mouth once daily FLUOXETINE HCL 20 MG TABS One tablet by mouth daily FLUOXETINE HCL [id number] Flip Kramer MD Comment on above: Take 1 capsule by [facility] once daily. iv contrast (will be provided with radiology test) (2 sources) Start: 2021 End: 2021 inject 1 dose intravenously once iv contrast (will be provided with radiology test) CTA Head/Neck W No IV access, insert saline lock prior to the sedation, infusion, injection for imaging exam. Discontinue saline lock post exam. If Pt. has a central line or IVAD, may access for administration according to line specific nursing protocol. Once exam is complete flush line and de-access according to line specific nursing protocol in the CT contrast administration guidelines link. 1 Each 0 12/09/2021 12/10/2021 Active Comment on above: CTA Head/Neck W No I V access, insert saline lock prior to the sedation, infusion, injection for imaging exam. Discontinue saline lock post exam. If Pt. has a central line or IVAD, may access for administration according to line specific nursing protocol. Once exam is complete flush line and de-access according to line specific nursing protocol in the CT contrast administration guidelines link. Magnesium Hydroxide (3 sources) take 30 mL by mouth once daily as needed magnesium hydroxide (TORRES MILK OF MAGNESIA PO) Take 30 mL by mouth once daily as needed. Active Multivitamin preparation (19 sources) Start: 2021 take 1 tablet by mouth once daily Multivitamin Active 1 TABLET PO DAILY February 08, 2022 10:16am Start: 02-08-2022 take 1 tablet by ella th once daily Multivitamin Active 1 TABLET PO DAILY February 08, 2022 11:16am Start: 12-08-2015 End: 02-08-2022 Multivitamin Discontinued 1 EACH PO DAILY December 07, 2015 11:00pm February 08, 2022 10:18am Start: 12-08-2015 End: 02-08-2022 Multivitamin Discontinued 1 EACH PO DAILY December 08, 2015 12:00am February 08, 2022 11:18am Start: 12-08-2015 Multivitamin A ctive 1 EACH PO DAILY December 08, 2015 12:00am multivitamin tablet (20 sources) Start: 02-21-2013 take 1 tablet by mouth once daily multivitamin tablet Take 1 tablet by mouth once daily. 0 02/21/2013 Active Comment on above: Take 1 tablet by ella th once daily. Multivitamin tablet (8 sources) Start: 02-08-2022 Multivitamin t ablet Active 1 {tbl} PO DAILY February 08, 2022 11:16am vitamin Start: 02-08-2022 Multivitamin t ablet Active 1 {tbl} PO DAILY February 08, 2022 11:16am ofloxacin 3 mg/ml otic solution (14 sources) Quinolone Antimicrobial Start: 05-16-2024 End: 05-23-2024 ofloxacin (FLOXIN) 0.3 % otic solution Indications: Abrasion of left ear canal, initial encounter Use 10 Drops in the left ear once daily for 7 days. 5 mL 05/16/2024 05/23/2024 Active Start: 12-23-2021 ofloxacin (OCU FLOX) 0.3 % ophthalmic solution INSTILL 1 DROP IN LEFT EYE 4 TIMES A DAY 3 DAYS BEFORE SURGERY AND 4 TIMES DAILY AFTER SURGERY 0 12/23/2021 Active Comment on above: INSTILL 1 DROP IN LE FT EYE 4 TIMES A DAY 3 DAYS BEFORE SURGERY AND 4 TIMES DAILY AFTER SURGERY oxyCODONE hydrochloride 5 mg oral tablet (20 sources) Opioid Agonist Start: 04-16-2023 take 1 tablet by mouth every six hours as needed for pain Oxycodone 5 mg tablet Active 5 mg PO EVERY 6 HOURS as needed for pain April 16, 2023 1:00am Start: 01-26-2020 End: 02-08-2022 take 1 tablet by mouth every six hours as needed for pain Oxycodone 5 MG tablet Discontinued 5 mg PO EVERY 6 HOURS NEEDED as needed for Pain Score 1-10January 26, 2020 12:00am February 08, 2022 11:17am Start: 09-18-2019 End: 01-24-2020 take 1 tablet by mouth once daily as needed for pain Oxycodone 5 mg tablet Discontinued 5 mg PO DAILY as needed for Pain Score 1-02/28 0 September 18, 2019 12:00am January 24, 2020 2:50pm Comment on above: EVERY 6 HOURS NEE DED pantoprazole 40 mg delayed release oral tablet (5 sources) Proton Pump Inhibitor Start: take 1 tablet by mouth twice daily Pantoprazole 40 mg tablet,delayed release (DR/EC) Active 40 mg PO TWICE A DAY 60 3 January 10, 2025 12:00am Start: 12-02-2024 take 1 tablet by ella th once daily Pantoprazole 20 mg tablet,delayed release (DR/EC) Active 20 mg PO daily 90 3 December 02, 2024 12:00am propranolol hydrochloride 20 mg oral tablet (20 sources) beta-Adrenergic Anderson Start: 05-16-2023 End: 05-27-2025 take 1 tablet by mouth twice daily Propranolol 20 mg tablet Active 20 mg PO TWICE A DAY November 29, 2024 8:00am blood pressure Start: 04-16-2023 End: 11-29-2024 Propranolol 20 mg tablet Discontinued 30 mg PO TWICE A DAY April 16, 2023 1:00am November 29, 2024 8:00am blood pressure Start: 04-16-2023 take 30 mg by mouth twice radha y Propranolol Active 30 MG PO TWICE A DAY April 16, 2023 1:00am Start: 12-29-2022 End: 03-29-2023 take 1 tablet by mouth twice daily propranolol (INDERAL) 10 mg tablet Indications: Tremor of right hand TAKE 1 TABLET BY MOUTH TWICE A DAY 180 tablet 1 02/28/2023 Active Start: 01-29-2021 End: 04-16-2023 take 1 tablet by mouth twice daily Propranolol 20 mg tablet Discontinued 20 mg PO TWICE A DAY 180 3 February 23, 2021 11:30am April 16, 2023 3:32pm Start: 01-03-2020 End: 01-29-2021 Propranolol 40 mg tablet Discontinued 20 mg PO TWICE A DAY 90 90 February 21, 2020 8:06am January 29, 2021 3:10pm Start: 01-03-2020 End: 01-29-2021 take 20 mg by mouth twice daily Propranolol Discontinu ed 20 MG PO TWICE A DAY 90 90 February 21, 2020 8:06am January 29, 2021 3:10pm Start: 07-04-2018 End: 04-29-2021 take 1 tablet by mouth twice daily Propranolol 40 mg tablet Discontinued 40 mg PO TWICE A DAY July 04, 2018 1:00am January 03, 2020 1:16pm Comment on above: Take 1 tablet by ella th twice daily. TAKE 1 TABLET BY ELLA TH TWICE A DAY Take 1 tablet by ella th two times a day. 24 hr divalproex sodium 250 mg extended release oral tablet (6 sources) Mood Stabilizer, Anti-epileptic Agent Start: 11-11-2021 End: 02-09-2022 take 1 tablet by mouth once daily divalproex ER (DEPAKOTE ER) 250 mg 24 hr tablet Take 1 tablet by mouth once daily. 30 tablet 2 11/11/2021 12/20/2021 Discontinued Comment on above: Take 1 tablet by ella th once daily. Completed/Discontinued Medications Medication Drug Class(es) Dates Sig (Normalized) Sig (Original) HYDROCODONE-ACETA MINOPHEN (1 source) Opioid Agonist Start: 02-08-2016 NORCO 5-325 MG TABS as needed HYDROCODONE-ACETAM INOPHEN [id number] Flip Kramer MD aspirin 81 mg delayed release oral tablet (20 sources) Nonsteroidal Anti-inflammatory Drug Start: 09-18-2019 End: 11-03-2022 take 1 tablet by mouth once daily Aspirin 81 mg tablet,delayed release (DR/EC) Discontinued 81 mg PO DAILY 1 0 September 18, 2019 12:00am May 26, 2022 4:29pm Start: 10-14-2010 End: 09-18-2019 take 1 tablet by mouth once daily Aspirin 325 MG tablet Discontinued 325 mg PO DAILY@0800 December 08, 2015 12:00am September 18, 2019 2:32pm Comment on above: Take 1 tablet by ella th once daily. cephalexin 500 mg oral capsule (18 sources) Cephalosporin Antibacterial Start: 2 End: 2 take 1 capsule by mouth every six hours Cephalexin 500 mg capsule Discontinued 500 mg PO EVERY 6 HOURS 40 10 0 June 28, 2021 1:00am July 06, 2021 11:03am citalopram 20 mg oral tablet (4 sources) Serotonin Reuptake Inhibitor Start: 2 End: 5 take 1 tablet by mouth once daily CELEXA 20 MG TABS One tablet by mouth daily CITALOPRAM HYDROBROMIDE [id number] Flip Kramer MD Start: 09-28-2011 take 1 tablet by ella th once daily CITALOPRAM HYDROBROMIDE 10 MG TABS One tablet by mouth daily CITALOPRAM HYDROBROMIDE [id number] Flip Kramer MD clonazePAM 1 mg oral tablet (20 sources) Benzodiazepine Start: 06-17-2020 End: 01-29-2021 take 1 tablet by mouth twice daily Clonazepam (Klonopin) 1 mg tablet Discontinued 1 mg PO TWICE A DAY July 29, 2020 1:00am January 29, 2021 3:14pm CPAP (1 source) End: 04-29-2021 CPAP 04/29/2021 Discontinued cyclobenzaprine hydrochloride 10 mg oral tablet (11 sources) Muscle Relaxant Start: 12-30-2023 End: 07-23-2024 take 1 tablet by mouth every eight hours as needed cyclobenzaprine (FLEXERIL) 10 mg tablet Take 1 tablet by mouth three times a day as needed for muscle spasm. 30 tablet 2 12/30/2023 07/23/2024 Discontinued (Course of therapy completed) diclofenac sodium 0.01 mg/mg topical gel (20 sources) Nonsteroidal Anti-inflammatory Drug Start: 02-08-2022 End: 05-26-2022 apply 2 g topically twice daily Diclofenac Sodium 1 % gel Discontinued 2 g TOPICAL TWICE A DAY February 08, 2022 11:17am May 26, 2022 4:30pm neck pain Start: 06-29-2021 End: 02-08-2022 Diclofenac Sodium 1 % gel Discontinued 1 NMA TOPICAL TWICE A DAY June 29, 2021 1:00am February 08, 2022 11:18am neck pain Start: 06-29-2021 End: 05-26-2022 apply 2 g topically twice daily Diclofenac Sodium Disc ontinued 2 GM TOPICAL TWICE A DAY February 08, 2022 11:17am May 26, 2022 4:30pm Start: 03-15-2021 apply 4 g topically four times daily diclofenac (VOLTAREN ARTHRITIS PAIN) 1 % topical gel Indications: Chronic neck pain Apply 4 g to affected area four times daily. 450 g 3 03/15/2021 Active Comment on above: Apply 4 g to affecte d area four times daily. dutasteride 0.5 mg oral capsule (20 sources) 5-alpha Reductase Inhibitor Start: End: 2 take 1 capsule by mouth once daily Dutasteride (Avodart) 0.5 mg capsule Discontinued 0.5 mg PO DAILY June 29, 2021 1:00am July 14, 2021 4:59pm Comment on above: Take 1 capsule by mo [facility] once daily. fish oil (2 sources) Start: 1 End: 2 take 1 tablet by mouth once daily FISH OIL CAPS One tablet by mouth daily OMEGA-3 FATTY ACIDS CAPS [id number] Flip Kramer MD Start: 09-13-2010 take 1 tablet by ella once daily FISH OIL CAPS One tablet by mouth daily OMEGA-3 FATTY ACIDS CAPS [id number] Radha Rodriguez fluticasone propionate 0.05 mg/actuat metered dose nasal spray (18 sources) Corticosteroid Start: 02-04-2021 End: 03-14-2021 Fluticasone Propionate 50 mcg/actuation spray,suspension Discontinued 2 NMA INTRANASAL DAILY 18.2 4 February 04, 2021 12:00am March 14, 2021 8:42am administer into each nostril Start: 02-04-2021 End: 03-14-2021 take 1 spray(s) nasal route once daily Fluticasone Propionate Discontinued 2 SPRAY INTRANASAL DAILY 18.2 February 04, 2021 12:00am March 14, 2021 8:42am administer into each nostril gabapentin 300 mg oral capsule (20 sources) Anti-epileptic Agent Start: 01-26-2020 End: 02-25-2020 Gabapentin 300 MG capsule Discontinued 300 mg PO THREE TIMES A DAY 89 30 0 January 26, 2020 12:00am February 24, 2020 12:00am February 25, 2020 12:02am day #1, 1 cap po BID; then, TID Start: 09-13-2010 End: 09-28-2011 take 1 tablet by mouth once daily GABAPENTIN 300 MG CAPS One tablet by mouth daily GABAPENTIN [id number] Radha M Rodriguez hydroCHLOROthiazide 25 mg oral tablet (20 sources) Thiazide Diuretic Start: 07-09-2021 End: 11-01-2021 take 12.5 mg by mouth once daily Hydrochlorothiazide Discontinued 12.5 MG PO DAILY July 09, 2021 2:10pm November 01, 2021 1:34pm Start: 07-29-2020 End: 07-09-2021 Hydrochlorothiazide 25 mg ta blet Discontinued 12.5 mg PO TWICE A DAY May 18, 2021 5:55pm July 09, 2021 2:10pm Start: 07-29-2020 End: 07-09-2021 take 12.5 mg by mouth twice daily Hydrochlorothiazide Discontinued 12.5 MG PO TWICE A DAY May 18, 2021 5:55pm July 09, 2021 2:10pm Start: 04-29-2020 End: 07-29-2020 take 12.5 mg by mouth once daily Hydrochlorothiazide Discontinued 12.5 MG PO DAILY April 29, 2020 5:38pm July 29, 2020 3:06pm Start: 04-13-2020 End: 04-29-2020 take 1 tablet by mouth once daily Hydrochlorothiazide 25 mg tablet Discontinued 25 mg PO DAILY 20 04April 13, 2020 1:00am April 29, 2020 5:38pm Start: 09-13-2010 End: 11-01-2021 Hydrochlorothiazide 25 mg ta blet Discontinued 12.5 mg PO DAILY 30 April 29, 2020 5:38pm July 29, 2020 3:06pm Start: 09-13-2010 End: 07-04-2018 take 1 tablet by mouth once daily Hydrochlorothiazide 25 MG tablet Discontinued 25 mg PO DAILY December 08, 2015 12:00am July 04, 2018 4:07pm Comment on above: Take 12.5 mg by mout h once daily. ibuprofen 300 mg oral tablet (1 source) Nonsteroidal Anti-inflammatory Drug Start: 1 ADVIL TABS 300mg as needed (Ibuprofen) IBUPROFEN TABS [id number] Radhajose Rodriguez linezolid 600 mg oral tablet (18 sources) Oxazolidinone Antibacterial Start: 2 End: 2 take 1 tablet by mouth every twelve hours Linezolid 600 mg tablet Discontinued 600 mg PO Q12H 28 14 0 July 06, 2021 1:00am November 01, 2021 12:54pm lisinopril 10 mg oral tablet (20 sources) Angiotensin Converting Enzyme Inhibitor Start: 1 End: 4 take 1 tablet by mouth twice daily Lisinopril 10 mg tablet Discontinued 0 .ROUTE .COMPLEX 180 3 March 02, 2023 8:11am April 11, 2024 3:48pm TAKE 1 TABLET BY MOUTH TWICE A DAY Start: 02-01-2021 End: 03-01-2021 take 10 mg by mouth twice daily Lisinopril Discontinue d 10 MG PO TWICE A DAY February 01, 2021 1:06pm March 01, 2021 5:01pm Start: 01-29-2021 End: 02-01-2021 take 1 tablet by mouth twice daily Lisinopril 20 mg tablet Discontinued 20 mg PO TWICE A DAY January 29, 2021 12:00am February 01, 2021 1:07pm Start: 08-17-2020 End: 04-29-2021 take 10 mg by mouth twice daily Lisinopril 20 mg table t Discontinued 10 mg PO TWICE A DAY February 01, 2021 1:06pm March 01, 2021 5:01pm Start: 06-17-2020 End: 01-29-2021 take 1 tablet by mouth twice daily Lisinopril 10 mg tablet Discontinued 10 mg PO TWICE A DAY June 17, 2020 2:04pm January 29, 2021 3:11pm Start: 03-20-2020 End: 06-17-2020 take 2 tablets by mouth twice daily Lisinopril 10 mg tablet Discontinued 20 mg PO TWICE A DAY 180 3 March 30, 2020 4:37pm June 17, 2020 2:06pm Start: 03-20-2020 End: 06-17-2020 take 20 mg by mouth twice daily Lisinopril Discontinue d 20 MG PO TWICE A DAY 180 March 30, 2020 4:37pm June 17, 2020 2:06pm Start: 03-17-2020 End: 03-20-2020 take 1 tablet by mouth twice daily Lisinopril 10 mg tablet Discontinued 10 mg PO TWICE A DAY 60 12 March 17, 2020 5:28pm March 20, 2020 5:29pm Comment on above: Take 1 tablet by ella twice daily. Dr. Kramer LORazepam 1 mg oral tablet (20 sources) Benzodiazepine Start: End: take 1 tablet by mouth at bedtime as needed for anxiety Lorazepam 1 mg tablet Discontinued 1 mg PO AT BEDTIME as needed for Anxiety September 18, 2019 2:15pm June 17, 2020 2:05pm Start: 02-08-2016 LORAZEPAM 1 MG TABS needed LORAZEPAM [id number] Flip Kramer MD losartan potassium 50 mg oral tablet (20 sources) Angiotensin 2 Receptor Anderson Start: 09-13-2010 End: 07-31-2017 take 1 tablet by mouth once daily Losartan 50 MG tablet Discontinued 50 mg PO DAILY December 08, 2015 12:00am July 31, 2017 4:31pm Start: 09-13-2010 take 2 tablets by mo [facility] once daily LOSARTAN POTASSIUM 50 MG TABS Two tablets by mouth daily (STOP) LOSARTAN POTASSIUM [id number] Flip Kramer MD 24 hr metFORMIN hydrochloride 500 mg extended release oral tablet (19 sources) Biguanide Start: 12-08-2015 End: 08-22-2017 take 1 tablet by mouth once daily Metformin 500 MG tablet,ER [email or web address] 24 hr Discontinued 500 mg PO DAILY December 08, 2015 12:00am August 22, 2017 1:46pm Start: 09-13-2010 take 1 tablet by once daily METFORMIN HCL 500 MG TABS One tablet by mouth daily METFORMIN HCL [id number] Radha Rodriguez MULTIPLE VITAMIN (1 source) Start: 06-12-2014 take 1 tablet by mouth once daily MULTIVITAMINS TABS One tablet by mouth daily MULTIPLE VITAMIN Mallorie Santos PA-C Multivitamin 1 EACH tablet (8 sources) Start: 12-08-2015 End: 02-08-2022 Multivitamin 1 EACH tablet Discontinued 1 NMA PO DAILY December 08, 2015 12:00am February 08, 2022 11:18am nirmatrelvir tablet 300 mg (150 mg x 2) and ritonavir tablet 100 mg in a dose pack (PAXLOVID) (2 sources) Start: 01-20-2022 End: 01-25-2022 nirmatrelvir tablet 300 mg (150 mg x 2) and ritonavir tablet 100 mg in a dose pack (PAXLOVID) Indications: COVID-19 Administer TWO pink nirmatrelvir 150 mg tablets and ONE white ritonavir 100 mg tablet for a total of three tablets twice daily. 30 tablet 0 01/20/2022 01/25/2022 Start: 01-20-2022 End: 01-25-2022 nirmatrelvir tablet 300 mg ( 150 mg x 2) and ritonavir tablet 100 mg in a dose pack (PAXLOVID) Indications: COVID-19 Administer TWO pink nirmatrelvir 150 mg tablets and ONE white ritonavir 100 mg tablet for a total of three tablets twice daily. 30 tablet 0 01/20/2022 01/25/2022 Active Comment on above: Administer TWO pink nirmatrelvir 150 mg tablets and ONE white ritonavir 100 mg tablet for a total of three tablets twice daily. nitroglycerin 0.4 mg sublingual tablet (20 sources) Nitrate Vasodilator Start: 08-21-2017 End: 11-29-2024 Nitroglycerin 0.4 mg tablet, sublingual Discontinued 0.4 mg SL every 5 to 15 minutes as needed for chest pain 15 06March 17, 2020 5:28pm May 26, 2022 4:52pm do not exceed 3 doses per episode Start: 08-21-2017 End: 03-17-2020 Nitroglycerin (Nitrostat) 0. 4 mg tablet, sublingual Discontinued 0.4 MG SL Q5M August 21, 2017 12:00am March 17, 2020 5:27pm Start: 12-12-2011 NITROSTAT 0.4 MG SUBL 1 tablet under tongue every 5 min up to 3 X NITROGLYCERIN [id number] Flip Kramer MD Comment on above: Dissolve 1 tablet un justus the tongue every 5 minutes as needed for chest pain. omeprazole 40 mg delayed release oral capsule (20 sources) Proton Pump Inhibitor Start: 0 End: 1 take 1 capsule by mouth once daily Omeprazole 40 MG capsule,delayed release(DR/EC) Discontinued 40 mg PO DAILY 30 0 March 13, 2020 12:00am June 17, 2020 2:06pm Start: 09-13-2010 End: 09-28-2011 take 1 tablet by mouth once daily OMEPRAZOLE 20 MG CPDR One tablet by mouth daily OMEPRAZOLE [id number] Flip Kramer MD ondansetron 4 mg disintegrating oral tablet (18 sources) Serotonin-3 Receptor Antagonist Start: 03-13-2020 End: 06-17-2020 take 1 tablet by mouth every six hours as needed for nausea Ondansetron 4 MG tablet Discontinued 4 mg PO EVERY 6 HOURS NEEDED as needed for Nausea March 13, 2020 12:00am June 17, 2020 2:06pm predniSONE 20 mg oral tablet (18 sources) Start: 01-23-2020 End: 02-03-2020 take 2 tablets by mouth once daily at mealtime Prednisone 20 MG tablet Discontinued 40 mg PO DAILY January 23, 2020 12:00am February 03, 2020 1:49pm With food Start: 01-23-2020 End: 02-03-2020 take 40 mg by mouth once daily at mealtime Prednisone Discontinued 40 MG PO DAILY January 23, 2020 12:00am February 03, 2020 1:49pm With food rosuvastatin calcium 10 mg oral tablet (20 sources) HMG-CoA Reductase Inhibitor Start: 03-12-2019 End: 09-18-2024 take 1 tablet by mouth at bedtime Rosuvastatin 10 mg tablet Discontinued 10 mg PO AT BEDTIME 90 3 December 13, 2021 11:06am November 24, 2022 8:29am Start: 09-01-2011 End: 03-12-2019 take 1 tablet by mouth once daily Rosuvastatin 20 mg tablet Discontinued 20 mg PO DAILY 90 3 January 25, 2018 1:56pm March 12, 2019 2:23pm Start: 09-13-2010 take 1 tablet by ella th once daily CRESTOR 5 MG TABS One tablet by mouth daily ROSUVASTATIN CALCIUM [id number] Radha Rodriguez Comment on above: Take 1 tablet by ella th daily at bedtime. tamsulosin hydrochloride 0.4 mg oral capsule (20 sources) alpha-Adrenergic Anderson Start: 0 End: 2 take 2 capsules by mouth at bedtime Tamsulosin 0.4 mg capsule Discontinued 0.8 mg PO AT BEDTIME September 18, 2019 2:15pm July 14, 2021 4:59pm Start: 09-18-2019 End: 07-14-2021 take 0.8 mg by mouth at bedtime Tamsulosin Discontinue d 0.8 MG PO AT BEDTIME September 18, 2019 2:15pm July 14, 2021 4:59pm Start: 08-22-2017 End: 09-18-2019 take 1 capsule by mouth twice daily Tamsulosin 0.4 mg capsule Discontinued 0.4 mg PO TWICE A DAY August 22, 2017 1:47pm September 18, 2019 2:17pm Start: 09-13-2010 End: 08-22-2017 take 1 capsule by mouth once daily Tamsulosin 0.4 MG capsule Discontinued 0.4 mg PO DAILY December 08, 2015 12:00am August 22, 2017 1:49pm Comment on above: Take 2 capsules by m out daily at bedtime. tiZANidine 4 mg oral capsule (20 sources) Central alpha-2 Adrenergic Agonist Start: 2 End: 4 take 1 capsule by mouth twice daily as needed Tizanidine 4 mg capsule Discontinued 4 mg PO TWICE A DAY as needed for muscle spasticity February 08, 2022 12:00am December 11, 2023 10:00am Start: 11-01-2021 End: 12-29-2022 take 1 tablet by mouth every six hours as needed for muscle spasms tiZANidine (ZANAFLEX) 4 mg tablet TAKE 1 TABLET BY MOUTH EVERY 6 HOURS NEEDED (MUSCLE SPASMS) FOR UP TO 10 DAYS. 0 11/01/2021 12/29/2022 Discontinued Start: 09-13-2021 End: 09-23-2021 take 1 tablet by mouth every six hours as needed for muscle spasms tiZANidine (ZANAFLEX) 4 mg tablet Indications: Muscle tension pain Take 1 tablet by mouth every 6 hours as needed (muscle spasms) for up to 10 days. 40 tablet 1 09/13/2021 09/23/2021 Active Comment on above: Take 1 tablet by ella th every 6 hours as needed (muscle spasms) for up to 10 days. triamcinolone acetonide 0.25 mg/ml topical cream (20 sources) Corticosteroid Start: 07-26-19 End: 11-04-19 23 triamcinolone (KENALOG) 0.025 % cream Indications: Dry skin dermatitis Apply to affected area twice daily. 30 g 2 07/26/2019 11/03/2022 Discontinued Comment on above: Apply to affected ar ea twice daily. valsartan 160 mg oral tablet (20 sources) Angiotensin 2 Receptor Anderson Start: 08-01-19 18 End: 06-22-19 19 take 1 tablet by mouth once daily Valsartan 160 mg tablet Discontinued 160 mg PO daily 90 4 July 31, 2017 12:00am June 22, 2018 11:48am Start: 09-13-2010 take 1 tablet by ella th once daily VALSARTAN 160 MG TABS One tablet by mouth daily VALSARTAN [id number] Flip Kramer MD Problems Active Problems Problem Classification Problem Date Documented Da te Episodic/Chronic Abdominal hernia (4 sources) Umbilical hernia; Translations: [Umbilical hernia without obstruction or gangrene] Onset: 5 11-19-2024 Episodic Abdominal pain (20 sources) Abdominal pain; Translations: [Unspecified abdominal pain] 03-14-2020 Episodic Acute cerebrovascular disease (6 sources) Cerebrovascular accident; Translations: [Cerebral infarction, unspecified] Chronic Anxiety disorders (20 sources) Generalized anxiety disorder; Translations: [Generalized anxiety disorder] Onset: 0 03-04-2020 Chronic Bacterial infection; unspecified site (18 sources) Bacteremia; Translations: [Bacteremia] 07-14-2021 Episodic Chronic kidney disease (20 sources) Chronic kidney disease stage 3; Translations: [Chronic kidney disease (CKD), stage III (moderate)] Onset: 8 Resolved: 3 08-22-2017 Chronic Conditions associated with dizziness or vertigo (20 sources) Dizziness and giddiness; Translations: [Dizziness] Onset: 1 09-13-2010 Episodic Coronary atherosclerosis and other heart disease (20 sources) Atherosclerotic heart disease of [place] coronary artery without angina pectoris; Translations: [Angina pectoris] Onset: 1 01-28-2016 Chronic Comment on above: Status post stent 2 years ago Deficiency and other anemia (8 sources) Chronic anemia; Translations: [Anemia, unspecified] 02-18-2024 Episodic Diabetes mellitus without complication (20 sources) Type 2 diabetes mellitus; Translations: [Type 2 diabetes mellitus without complications] Onset: 3 Resolved: 4 06-29-2021 Chronic Disorders of lipid metabolism (20 sources) Hyperlipidemia; Translations: [Mixed hyperlipidemia] Onset: 6 09-13-2010 Chronic E Codes: Fall (20 sources) Fall; Translations: [Unspecified fall, initial encounter] 03-13-2023 Episodic Esophageal disorders (20 sources) Gastroesophageal reflux disease; Translations: [Gastro-esophageal reflux disease without esophagitis] Onset: 6 07-27-2018 Chronic Essential hypertension (20 sources) Hypertensive disorder; Translations: [Benign essential hypertension] Onset: 6 09-13-2010 Chronic Fluid and electrolyte disorders (18 sources) Hyponatremia; Translations: [Hypo-osmolality and hyponatremia] 07-14-2021 Episodic Fracture of lower limb (5 sources) Closed fracture of fifth metatarsal bone; Translations: [Nondisplaced fracture of fifth metatarsal bone, left foot, initial encounter for closed fracture] 08-11-2023 Episodic Genitourinary symptoms and ill-defined conditions (20 sources) Dysuria; Translations: [Dysuria] Onset: 5 07-06-2021 Episodic Headache; including migraine (20 sources) Headache; Translations: [Headaches] Episodic Hyperplasia of prostate (20 sources) Benign prostatic hypertrophy with outflow obstruction; Translations: [Benign prostatic hyperplasia with lower urinary tract symptoms] Onset: 9 11-10-2016 Chronic Hypertension with complications and secondary hypertension (20 sources) Chronic kidney disease stage 3 due to hypertension; Translations: [Hypertensive chronic kidney disease with stage 1 through stage 4 chronic kidney disease, or unspecified chronic kidney disease] Onset: 2 Resolved: 3 05-02-2022 Chronic Miscellaneous mental health disorders (6 sources) Functional bloating; Translations: [Other somatoform disorders] 11-13-2024 Chronic Mood disorders (20 sources) Depressive disorder; Translations: [Depression] Onset: 6 02-10-2017 Chronic Mood disorders (1 source) Mood disorders; Translations: [Depression, unspecified depression type] Onset: 7 Mycoses (1 source) Onychomycosis; Translations: [Tinea unguium] 12-19-2022 Episodic Nausea and vomiting (18 sources) Nausea; Translations: [Nausea] 03-14-2020 Episodic Nutritional deficiencies (2 sources) Vitamin D deficiency; Translations: [Vitamin D deficiency, unspecified] Onset: 4 04-30-2024 Chronic Osteoarthritis (20 sources) Primary coxarthrosis, bilateral; 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] Onset: 5 02-04-2015 Chronic Other aftercare (11 sources) Patient encounter status; Translations: [Other intermission coordinator (current) drug therapy] 08-20-2018 Episodic Other aftercare (8 sources) Long-term current use of drug therapy; Translations: [Other [facility] (current) drug therapy] 08-20-2018 Episodic Other circulatory disease (14 sources) Orthostatic hypotension; Translations: [Orthostatic hypotension] Onset: 5 10-18-2023 Episodic Other circulatory disease (10 sources) History of cerebrovascular accident; Translations: [Personal history of transient ischemic attack (TIA), and cerebral infarction without residual deficits] Onset: 5 01-26-2024 Episodic Other circulatory disease (13 sources) H/O: heart disorder; Translations: [Personal history of other diseases of the circulatory system] 07-28-2024 Episodic Other circulatory disease (1 source) Orthostatic hypotension; Translations: [Orthostatic hypotension] Onset: 5 Episodic Other circulatory disease (2 sources) Personal history of transient ischemic attack (TIA), and cerebral infarction without residual deficits; Translations: [History of CVA in adulthood] Onset: 4 Episodic Other circulatory disease (1 source) Personal history of other diseases of the circulatory system; Translations: [Personal history of other diseases of the circulatory system] Onset: 5 Episodic Other connective tissue disease (20 sources) History of total replacement of right hip joint; Translations: [Presence of right artificial hip joint] Onset: 9 08-10-2018 Chronic Other connective tissue disease (1 source) Presence of right artificial hip joint; Translations: [History of total right hip arthroplasty] Onset: 9 Chronic Other connective tissue disease (9 sources) Recurrent falls ; Translations: [Repeated falls] Episodic Other connective tissue disease (1 source) Muscle tension pain; Translations: [Myalgia, unspecified site] Episodic Other connective tissue disease (2 sources) Pain in left foot; Translations: [Pain in left foot] 08-11-2023 Episodic Other connective tissue disease (2 sources) Pain of toe of left foot; Translations: [Pain in left toe(s)] 08-11-2023 Episodic Other connective tissue disease (1 source) Pain of left calf; Translations: [Pain in left lower leg] 08-21-2023 Episodic Other diseases of kidney and ureters (18 sources) Acute renal insufficiency; Translations: [Disorder of kidney and ureter, unspecified] 07-14-2021 Episodic Other gastrointestinal disorders (14 sources) Dark stools; Translations: [Other fecal abnormalities] 10-10-2022 Episodic Other gastrointestinal disorders (9 sources) Dysphagia; Translations: [Dysphagia, unspecified] 12-02-2024 Episodic Other gastrointestinal disorders (1 source) Other dysphagia; Translations: [Other dysphagia] Onset: 5 Episodic Other gastrointestinal disorders (1 source) Dysphagia, unspecified; Translations: [Dysphagia, unspecified] Onset: 5 Episodic Other hematologic conditions (15 sources) History of anemia; Translations: [Personal history of diseases of the blood and blood-forming organs and certain disorders involving the immune mechanism] 10-10-2022 Episodic Other hematologic conditions (1 source) Personal history of diseases of the blood and blood-forming organs and certain disorders involving the immune mechanism; Translations: [Personal history of diseases of the blood and blood-forming organs and certain disorders involving the immune mechanism] Onset: 5 Episodic Other hereditary and degenerative nervous system conditions (1 source) Essential tremor; Translations: [Essential tremor] Chronic Other hereditary and degenerative nervous system conditions (18 sources) Restless legs; Translations: [Restless legs syndrome] 08-20-2018 Chronic Other lower respiratory disease (20 sources) Dyspnea; Translations: [Dyspnea, unspecified] Onset: 1 09-13-2010 Episodic Other lower respiratory disease (20 sources) Chronic cough; Translations: [Chronic cough] Onset: 5 08-10-2021 Episodic Other lower respiratory disease (18 sources) Hypoxia; Translations: [Hypoxemia] 07-14-2021 Episodic Other lower respiratory disease (3 sources) Dyspnea, unspecified; Translations: [Other respiratory abnormalities] Episodic Other lower respiratory disease (20 sources) Dyspnea on exertion; Translations: [Other forms of dyspnea] Onset: 5 10-10-2022 Episodic Other lower respiratory disease (1 source) Cough; Translations: [Cough] 10-29-2020 Episodic Other lower respiratory disease (1 source) Shortness of breath; Translations: [SOB (shortness of breath) on exertion] Onset: 5 Episodic Other nervous system disorders (20 sources) Myelomalacia; Translations: [Other specified diseases of spinal cord] Onset: 3 Chronic Other nervous system disorders (1 source) Other specified diseases of spinal cord; Translations: [Myelomalacia of cervical cord (HCC)] Onset: 3 Chronic Other nervous system disorders (6 sources) Finding of hand region; Translations: [Tremor, unspecified] Episodic Other nervous system disorders (2 sources) Impairment of balance; Translations: [Other abnormalities of gait and mobility] 07-23-2024 Episodic Other nervous system disorders (1 source) Unspecified abnormalities of gait and mobility; Translations: [Abnormality of gait] Onset: 5 Episodic Other non-traumatic joint disorders (20 sources) Hip pain; Translations: [Pain in left hip] Onset: 5 Resolved: 2 10-29-2014 Episodic Other nutritional; endocrine; and metabolic disorders (1 source) Body mass index (BMI) 36.0-36.9, adult; Translations: [Body mass index (BMI) 36.0-36.9, adult] Onset: 5 07-29-2015 Chronic Other nutritional; endocrine; and metabolic disorders (18 sources) Overweight; Translations: [Overweight] 09-25-2017 Episodic Other nutritional; endocrine; and metabolic disorders (8 sources) H/O: diabetes mellitus; Translations: [Personal history of other endocrine, nutritional and metabolic disease] 02-18-2024 Episodic Other screening for suspected conditions (not mental disorders or infectious disease) (3 sources) Decreased vitamin D; Translations: [Other specified abnormal findings of blood chemistry] Onset: 4 04-30-2024 Episodic Other skin disorders (1 source) Ingrowing nail; Translations: [Ingrowing nail] 12-19-2022 Episodic Other skin disorders (1 source) Actinic keratosis; Translations: [Actinic keratosis] 12-30-2023 Episodic Other upper respiratory disease (18 sources) Rhinitis; Translations: [Chronic rhinitis] 02-04-2021 Chronic Peripheral and visceral atherosclerosis (20 sources) 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; Translations: [Peripheral vascular disease, unspecified] Onset: 5 01-21-2015 Chronic Pulmonary heart disease (18 sources) Pulmonary hypertension; Translations: [Pulmonary hypertension, unspecified] 08-20-2018 Chronic Comment on above: RVSP 44 mmHg Residual codes; unclassified (20 sources) Obstructive sleep apnea syndrome; Translations: [Obstructive sleep apnea (adult) (pediatric)] Onset: 9 07-27-2018 Chronic Residual codes; unclassified (1 source) Obstructive sleep apnea (adult) (pediatric); Translations: [REHAN on CPAP] Onset: 9 Chronic Residual codes; unclassified (12 sources) History of lumbar laminectomy; Translations: [Other specified postprocedural states] 03-04-2023 Episodic Septicemia (except in labor) (18 sources) Sepsis; Translations: [Sepsis, unspecified organism] 07-14-2021 Episodic Spondylosis; intervertebral disc disorders; other back problems (20 sources) Cervical spondylosis; Translations: [Spondylosis without myelopathy or radiculopathy, cervical region] Onset: 1 Resolved: 7 07-29-2014 Chronic Spondylosis; intervertebral disc disorders; other back problems (20 sources) Spinal stenosis of lumbar region; Translations: [Spinal stenosis, lumbar region without neurogenic 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] Onset: 0 05-17-2021 Episodic Sprains and strains (20 sources) Strain of neck muscle; Translations: [Strain of muscle, fascia and tendon at neck level, initial encounter] Onset: 5 Resolved: 2 07-29-2014 Episodic Superficial injury; contusion (13 sources) Abrasion of left elbow, initial encounter; Translations: [Abrasion of left elbow] 03-04-2023 Episodic Syncope (20 sources) Syncope and collapse; Translations: [Vasovagal syncope] Onset: 1 09-13-2010 Episodic Thyroid disorders (20 sources) Non-toxic multinodular goiter; Translations: [Nontoxic multinodular goiter] Onset: 4 12-12-2013 Chronic Transient cerebral ischemia (2 sources) Cerebral ischemia; Translations: [Transient cerebral ischemic attack, unspecified] Chronic Unclassified (18 sources) Benign prostatic hypertrophy 01-23-2020 Unclassified (1 source) Headaches; Translations: [Headaches] Onset: 4 Unclassified (1 source) Foreign body sensation, other site; Translations: [Foreign body sensation, other site] Onset: 5 Urinary tract infections (20 sources) Acute cystitis; Translations: [Acute cystitis without hematuria] 07-14-2021 Episodic Viral infection (1 source) Disease caused by 2019-nCoV; Translations: [COVID-19] Episodic Past or Other Problems Problem Classification Problem Date Documented Da te Episodic/Chronic Biliary tract disease (20 sources) Cholelithiasis without obstruction; Translations: [Calculus of gallbladder without cholecystitis without obstruction] Onset: 06-10-2014 Resolved: 07-05-2016 05-09-2023 Episodic Coronary atherosclerosis and other heart disease (19 sources) Coronary angioplasty status; Translations: [Stented coronary artery] Onset: 08-20-2010 09-13-2010 Episodic Comment on above: PTCA/FER to prox CFX 09/08/10 Deficiency and other anemia (20 sources) Anemia; Translations: [Anemia, unspecified] Onset: 08-20-2013 08-20-2013 Episodic Deficiency and other anemia (1 source) Anemia, unspecified; Translations: [Anemia, unspecified type] Onset: 08-20-2013 Episodic Diabetes mellitus without complication (20 sources) Impaired fasting glycemia; Translations: [Impaired fasting glucose] Onset: 02-01-2006 07-27-2018 Episodic Hemorrhoids (20 sources) Internal hemorrhoids; Translations: [Other hemorrhoids] Onset: 03-29-2006 03-29-2006 Episodic Malaise and fatigue (7 sources) Fatigue; Translations: [Malaise and fatigue] Onset: 09-13-2010 09-13-2010 Episodic Nonspecific chest pain (20 sources) Precordial pain; Translations: [Chest pain] Onset: 09-13-2010 09-13-2010 Episodic Other aftercare (1 source) Other intermission coordinator (current) drug therapy; Translations: [Other [facility] (current) drug therapy] Onset: 09-13-2010 09-13-2010 Episodic Other and unspecified benign neoplasm (20 sources) Benign neoplasm of colon; Translations: [Benign neoplasm of colon, unspecified] Onset: 03-29-2006 03-29-2006 Episodic Other connective tissue disease (4 sources) Other symptoms and signs involving the musculoskeletal system; Translations: [Other musculoskeletal symptoms referable to limbs] Onset: 04-30-2024 01-26-2024 Episodic Other connective tissue disease (1 source) Repeated falls; Translations: [Recurrent falls] Onset: 04-30-2024 Episodic Other diseases of kidney and ureters (1 source) Other obstructive and reflux uropathy; Translations: [Hypertrophy of prostate with urinary obstruction] Onset: 11-10-2016 Episodic Other gastrointestinal disorders (20 sources) Anismus; Translations: [Other specified symptoms and signs involving the digestive system and abdomen] Onset: 07-20-2017 07-20-2017 Episodic Other nervous system disorders (20 sources) Abnormal gait; Translations: [Unsteadiness on feet] Onset: 06-25-2010 06-25-2010 Episodic Other nervous system disorders (20 sources) Tremor; Translations: [Tremor, unspecified] Onset: 07-27-2018 07-27-2018 Episodic Other non-traumatic joint disorders (20 sources) Pain in lower limb; Translations: [Pain in unspecified knee] Onset: 12-14-2005 Resolved: 05-02-2022 12-14-2005 Episodic Other non-traumatic joint disorders (20 sources) Arthralgia of the pelvic region and thigh; Translations: [Pain in unspecified hip] Onset: 09-16-2008 Resolved: 05-02-2022 09-16-2008 Episodic Other nutritional; endocrine; and metabolic disorders (4 sources) Body mass index (BMI) 28.0-28.9, adult; Translations: [Body mass index (BMI) 27.0-27.9, adult] Onset: 12-11-2013 Resolved: 01-21-2015 07-27-2016 Episodic Unclassified (2 sources) Family history of stroke; Translations: [FH: Hypertension] 12-11-2013 Episodic Results Test Name Value Interpretation Reference Range Facility EGD Reporton 01-10-2025 EGD Report [facility] Medical Records Department [address] [place] [address] EGD Report MR#: [id number] Acct: [id number] Name: RONY MONZON Rep #: [id number] : 1940 84 From: Josue Seals DO PCP: Dr. George Vaughan MD Status:[facility] Patient Name: Rony Monzon Procedure Date: 01/10/2025 3:00 PM Date of : 1940 Age: 84 Procedure: Upper GI endoscopy Indications: Dysphagia, Heartburn Providers: Josue Seals DO Referring MD: George Vaughan Medicines: Monitored Anesthesia Care Patient Profile: This is an 84 year old male. Refer to note in patient chart for documentation of history and physical. Patient has symptoms of dysphagia with both liquids and solids. Complications: No immediate complications. Procedure: Pre-Anesthesia Assessment: - Prior to the procedure, a History and Physical was performed, and patient medications and allergies were reviewed. The patient is competent. The risks and benefits of the procedure and the sedation options and risks were discussed with the patient. All questions were answered and informed consent was obtained. Patient identification and proposed procedure were verified by the physician in the pre-procedure area. Mental Status Examination: alert and oriented. Airway Examination: normal oropharyngeal airway and neck mobility. Respiratory Examination: clear to auscultation. CV Examination: normal. Prophylactic Antibiotics: The patient does not require prophylactic antibiotics. Prior Anticoagulants: The patient has taken no anticoagulant or antiplatelet agents except for NSAID medication. ASA Grade Assessment: II - A patient with mild systemic disease. After reviewing the risks and benefits, the patient was deemed in satisfactory condition to undergo the procedure. The anesthesia plan was to use monitored anesthesia care (MAC). Immediately prior to administration of medications, the patient was re-assessed for adequacy to receive sedatives. The heart rate, respiratory rate, oxygen saturations, blood pressure, adequacy of pulmonary ventilation, and response to care were monitored throughout the procedure. The physical status of the patient was re-assessed after the procedure. After obtaining informed consent, the endoscope was passed under direct vision. Throughout the procedure, the patient's blood pressure, pulse, and oxygen saturations were monitored continuously. The Endoscope was introduced through the mouth, and advanced to the second part of duodenum. The upper GI endoscopy was accomplished without difficulty. The patient tolerated the procedure well. Scope In: 3:12:36 PM Scope Out: 3:18:41 PM Total Procedure Duration Time 0 hours 6 minutes 5 seconds Findings: Mucosal changes including ringed esophagus, feline appearance, longitudinal furrows, small-caliber esophagus, circumferential folds, congestion (edema) and stenosis were found in the entire esophagus. Biopsies were obtained from the proximal and distal esophagus with cold forceps for histology of suspected eosinophilic esophagitis. Verification of patient identification for the specimen was done. Estimated blood loss was minimal. A guidewire was placed and the scope was withdrawn. Dilation was performed with a Savary dilator with no resistance at 51 Fr. The dilation site was examined and showed moderate improvement in luminal narrowing. Estimated blood loss was minimal. Abnormal motility was noted in the esophagus. The cricopharyngeus was abnormal. There are extra peristaltic waves in the esophageal body. The distal esophagus/lower esophageal sphincter is spastic, but gives up passage to the endoscope. No gross lesions were noted in the stomach. No gross lesions were noted in the entire examined duodenum. Impression: - Esophageal mucosal changes suggestive of eosinophilic esophagitis. Dilated. - Abnormal esophageal motility. - No gross lesions in the stomach. - No gross lesions in the entire examined duodenum. - Biopsies were taken with a cold forceps for evaluation of eosinophilic esophagitis. Recommendation: - Discharge patient to home. - Resume previous diet. - Continue present medications. - Await pathology results. - Use Protonix (pantoprazole) 40 mg PO BID for 3 months. Procedure Code(s): --- Professional --- 50453, Esophagogastroduodenosc opy, flexible, transoral; with insertion of guide wire followed by passage of dilator(s) through esophagus over guide wire 99614, 59,51, Esophagogastroduodenosc opy, flexible, transoral; with biopsy, single or multiple CPT copyright 2021 [employer]. All rights reserved. The codes documented in this report are preliminary and upon invoice coder review may be revised to meet current compliance requirements. Josue Seals DO 01/10/2025 3:23:19 PM This repor (more content not included)... Normal [facility] Medical Records Department [address] [place] [address] Provation Physician Letter MR#: [id number] Acct: [id number] Name: RONY MONZON Rep #: [id number] : 1940 84 From: Josue Seals DO PCP: Dr. George Vaughan MD Status:REG [facility] 01/10/2025 George Vaughan [address] [place] [address] Re : Upper GI endoscopy procedure for Rony Monzon Dear Dr. Vaughan This procedure was performed on Friday, January 10, 2025. My impressions and recommendations are as follows: Impressions : - Esophageal mucosal changes suggestive of eosinophilic esophagitis. Dilated. - Abnormal esophageal motility. - No gross lesions in the stomach. - No gross lesions in the entire examined duodenum. - Biopsies were taken with a cold forceps for evaluation of eosinophilic esophagitis. Recommendations : - Discharge patient to home. - Resume previous diet. - Continue present medications. - Await pathology results. - Use Protonix (pantoprazole) 40 mg PO BID for 3 months. My findings are described in the full procedure note, which is enclosed. If I can be of further assistance, please feel free to contact me at . Sincerely, Josuezoraida SealsDO 01/10/2025 3:23:19 PM This report has been signed electronically. 01/10/25 1523 Date Josue Bozena DO Cosigner Signature: Date (if indicated) CC: Dr. George Vaughan MD; Josuedesire Seals DO Date Dictated: 01/10/25 1500 Date Transcribed: Research Soil Scientist: RF Signed [facility] MR/POSTOP.[facility] 01-10-2025 MR/POSTOP.[facility] Medical Records Department [address] [place] [address] Anesthesia Postop Eval I 01/10/25 1520 MR#: [id number] Acct: [id number] Name: RONY MONZON Rep #: [id number] : 1940 84 From: Scott Cornejo CRNA PCP: Dr. George Vaughan MD Status:REG SD Y Race: C Location: [place] [address] Anesthesia: Postop Eval I Current Vital Signs Temperature: 98 F Pulse Rate: 65 Blood Pressure: 169/74 Respiratory Rate: 16 Pulse Ox: 99 Oxygen Delivery Method: Room Air Assessment Airway patent: Yes Spontaneous unlabored respirations: Yes Mental status: Awake and Calm nausea: No Vomiting: No Anesthesia Complication: No Fluid Hydration Crystalloid volume administer (ml): 100 Total IV fluid infused: 100 Progress Note Anesthesia document: Postop Eval 1 completed: Yes 01/10/25 1521 Date Scott Cornejo CELL OPERATOR Cosigner Signature: Date CC: Signed Normal [facility] MR/XCXTURHA0rs 01-10-2025 MR/POSTOPAN2 [facility] Medical Records Department [address] [facility] [place] [address] Anesthesia Postop Eval II 01/10/25 1527 MR#: [id number] Acct: [id number] Name: RONY MONZON Rep #: [id number] : 1940 84 From: Scott Cornejo CRNA PCP: Dr. George Vaughan MD Status:REG SDC Y Race: C Location: [facility] Anesthesia Postop Eval I Sum Postop Eval Completion status Anesthesia document: Postop Eval 1 completed: Yes Anesthesia Postop Eval I Summary Anesthesia Postop Eval I Summary: Anesthesia Postop Eval I: Assessment Summary Airway patent Yes 01/10/25 15:21 CELL OPERATOR.MDOT Spontaneous unlabored Yes 01/10/25 15:21 CELL OPERATOR.MDOT respirations Mental status Awake,Calm 01/10/25 15:21 CELL OPERATOR.MDOT nausea No 01/10/25 15:21 CELL OPERATOR.MDOT Vomiting No 01/10/25 15:21 CELL OPERATOR.MDOT Anesthesia Postop Eval I: Fluid Summary Crystalloid volume administer 100 01/10/25 15:21 CELL OPERATOR.MDOT (ml) Colloids volume administered ( ml) Blood Product volume administered (ml) Total IV fluid infused 100 01/10/25 15:21 CELL OPERATOR.MDOT Anesthesia Postop Eval I: Summary Notes Anesthesia Complication No 01/10/25 15:21 CELL OPERATOR.MDOT Anesthesia Complication Comment: Post-operative progress note Anesthesia: Postop Eval II Evaluation Mental status: Awake and Calm Pain Level: 0 nausea: No Vomiting: No Complications Anesthesia Complication: No 01/10/25 1528 Date Scott Cornejo CELL OPERATOR Cosigner Signature: Date CC: Signed Normal [facility] Surgery Specimen Level Olive 01-10-2025 Surgery Specimen Level IV Patient Age/Sex Location Account Attending Physician RONY MONZON 84/M EN [id number] Josue Seals DO Specimen: [id number] Received: 01/10/25 Status: PARKER Reynolds Num: [id number] Spec Type: EGD BIOPSY Young Dr: Josue Seals DO HEADEUNICE OPERATION: EGD, biopsy PRE-OP DIAGNOSIS: Chronic cough, dysphagia TISSUE SUBMITTED: A- Random esophagus biopsy MICROSCOPIC DIAGNOSIS A. Esophagus, random, biopsies: * Benign squamous epithelium with a microfocal area of superficial erosion with keratosis MICROSCOPIC DESCRIPTION Slides are reviewed. GROSS DESCRIPTION A. Received in fixative is one container labeled with the patient's name and designated Random esophagus biopsy. The specimen consists of multiple irregular fragments of light leonard soft tissue that in aggregate measure 1.4 x 0.5 x 0.1 cm. The specimen is totally submitted in one cassette. [place] 01/13/2025 CPT:65035 Patient Age/Sex Location Account Attending Physician RONY MONZON 84/M EN [id number] Josue Seals DO Signed (signature on file) Dr. Armond Acevedo MD 01/22/25 1525 Normal [facility] Comment on above: Performed By: #### P SUIV ####[facility] [id number] [facility] [place], [address] MR/PAT.ANEon 01-08-2025 MR/PAT.[facility] Medical Records Department [address] [place] [address] PAT - Anesthesia 01/08/25 1537 MR#: [id number] Acct: [id number] Name: RONY MONZON Rep #: [id number] : 1940 84 From: Yobani Ariza MD PCP: Dr. George Vaughan MD Status:PRE [facility] Y Race: C Location: EN Pre-Assessment Diagnosis/Proposed Procedure Planned Operative Procedure(s): EGD Anesthesia History Anesthesia History - informatics developer: Anesthesia History - informatics developer Hx Hospitalization Yes: 07/2024 ER VISIT, 01/08/25 13:03 OVERNIGHT OBS, STRESS TEST Any Problems With Anesthesia No 01/08/25 13:03 Cholinesterase deficiency No 01/08/25 13:03 You/Your Family Experience No 01/08/25 13:03 fever (hyperthermia) with Relationship Recent Exposure to Contagious No 07/14/21 13:14 Disease Does patient have nerve No 01/08/25 13:03 stimulator Patient instructed to have device shut off --Does patient have Pacemaker or ICD? When Was Last Pacemaker Check QUESTION #4 FULL TEXT: You/Your Family Experience fever (hyperthermia) with Anesthesia Last Oral Intake Last Oral intake: Last Oral Intake NPO since Meds taken in AM with sips of water? Meds patient instructed to take am of surgery PONV PONV - informatics developer: PONV - informatics developer Female No 01/08/25 13:03 HX of Motion Sickness No 01/08/25 13:03 HX of N/V After Surgery No 01/08/25 13:03 Non-Smoker Yes 01/08/25 13:03 Duration of Surgery greater No 01/08/25 13:03 than 60 minutes Number of Risk Factors 1 01/08/25 13:03 PONV Score Low Risk 01/08/25 13:03 Height Weight Height Weight: Anesthesia: Height Weight Height 6 ft 1 in 11/29/24 07:58 Respiratory Assessment Respiratory Assessment - informatics developer: Respiratory Tract Infection Hx - informatics developer Hx Respiratory Tract Infection No 01/08/25 13:03 STOP Sleep Apnea STOP Sleep Apnea - informatics developer: STOP Sleep Apnea - informatics developer Hx Hypertension Yes: PER PT, CONTROLLED ON 01/08/25 13:03 MEDS Hx Sleep Apnea Yes 01/08/25 13:03 CPAP No 01/08/25 13:03 BIPAP No 01/08/25 13:03 Do you snore loudly (louder than talking or can be heard Do you often feel tired/ fatigued/ sleepy during daytime? Has anyone observed you stop breathing during sleep? STOP Results Positive 01/08/25 13:03 QUESTION #5 FULL TEXT : Do you snore loudly (louder than talking or can be heard through closed doors)? 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 Specify any problems Hx of Preganancy in last 3 N/A 01/08/25 13:03 Months Nurse Filling Out Transfusion MGRIFFITH 01/08/25 13:03 Questions: Date: 01/08/25 01/08/25 13:03 Time: 13:05 08/20/25 13:03 Patient unable to answer at this time (ie. confused, unrespo /Reproduction History /Reproductive History - informatics developer: /Reproductive Hx- informatics developer Hx Now No 01/08/25 13:03 Gestational Age (in weeks): EDC: Hx Hx Para Hx Section SAB No 01/08/25 13:03 [facility] Medical History (Updated 01/08/25 @ 13:14 by Briseida Bailey) High cholesterol Stroke/cerebrovascular accident Syncope Gastric reflux Shortness of breath on exertion Sleep apnea COVID-19 ( 01/18/22) Sepsis due to urinary tract infection History of transesophageal echocardiography (VIOLETTE) Wears hearing aid Wears glasses Depression Anxiety Walker as ambulation aid Arthritis Indwelling urethral catheter present Low iron Easy bruising History of hiatal hernia Former smoker History of tilt table evaluation Cardiology follow-up encounter History of echocardiogram History of stress test Enterococcus UTI H/O appendicitis Presence of stent in coronary artery ( 09/08/10) Pure hypercholesterolemia Essential hypertension PTSD (post-traumatic stress disorder) Pulmonary hypertension Restless legs (more content not included)... Normal [facility] CNOVon 12-27-2024 CNOV Office Visit (GENSWS ) RONY MONZON ([id number]) 1940 M DEF Date Time Provider Department 12/27/24 11:00 AM GERTRUDE ALLEN GENSWS During your visit today, we recorded the following information about you: Temperature 97.6 degrees Gertrude Allen APRN.CNP 12/27/2024 11:06 AM Signed SUBJECTIVE: Rony Monzon presents for follow up of his umbilical hernia repair WITH mesh. On 12/13/24 he underwent a hernia repair with Dr. Slater, tolerated the procedure well and was discharged home. Patient complaints: None -notes urinary AND constipation have resolved He denies pain, drainage, redness around wound, difficulty voiding, and constipation. OBJECTIVE: Temp 36.4 ?C (97.6 ?F) (Temporal Artery) General Appearance: Well developed, No acute distress Abdomen: Abdomen soft, non-distended. Incision: no drainage, no erythema, no swelling, mild ecchymosis, and no tenderness. Bandaged removed. Skin glue still intact IMPRESSION: Post op course: Normal PLAN: Post-op patient instructions were reviewed with the patient. I have explained to Mr. Monzon that he may return to normal activity with the following restrictions: No heavy lifting, pushing, or pulling greater than 20 lbs for 8 weeks post-operatively. I have encouraged him to contact me at any time with any questions or concerns that may arise. Follow up: EKATERINA Allen APRN.FORM SETTER [employer] Referring Provider: GEORGE VAUGHAN [[id number]] Allergies As of Date: 12/27/2024 Noted Allergy Reaction LYRICA (PREGABALIN) 08/01/2016 7 - Swelling Comments: B/L hand swelling NEURONTIN (GABAPENTIN) 05/31/2016 7 - Swelling Comments: Feels that he does not have a true allergy to this medication. States he had swelling, not rash. NORFLEX (ORPHENADRINE CITRATE) 04/12/2016 8 - GI Upset Date Reviewed: 12/27/2024 Reviewed by: Alee Lanier RN - Fully Assessed Reason for Visit: Post Op [174] Cmt: Hernia repair, postop. Denies fevers, redness, or drainage from surgical site. Primary Visit Diagnosis:Umbilical hernia without obstruction and without gangrene [K42.9] Prescriptions as of 12/27/2024 - magnesium hydroxide (TORRES MILK OF MAGNESIA PO) Take 30 mL by mouth once daily as needed. - amoxicillin (AMOXIL) 500 mg capsule 4 capsules 1 hours prior to dental procedure. - rosuvastatin (CRESTOR) 10 mg tablet Take 1 tablet by mouth daily at bedtime. - propranolol (INDERAL) 20 mg tablet Take 1 tablet by mouth two times a day. - amLODIPine (NORVASC) 5 mg tablet Take 1 tablet by mouth two times a day. - clopidogrel (PLAVIX) 75 mg tablet Take 1 tablet by mouth once daily. - FLUoxetine (PROZAC) 40 mg capsule Take 1 capsule by mouth once daily. - oxyCODONE IR (ROXICODONE) 5 mg immediate release tablet EVERY 6 HOURS NEEDED - lisinopril (PRINIVIL) 10 mg tablet Take 1 tablet by mouth twice daily. Dr. Kramer - nitroglycerin sublingual (NITROSTAT) 0.4 mg SL tablet Dissolve 1 tablet under the tongue every 5 minutes as needed for chest pain. - acetaminophen (TYLENOL EXTRA STRENGTH) 500 mg tablet Take 1 tablet by mouth every 6 hours as needed for pain. - multivitamin tablet Take 1 tablet by mouth once daily. Problem List As Of Date 12/27/2024 Noted Resolved BENIGN HYPERTENSION [I10] 12/14/2005 Hyperlipidemia, mixed [E78.2] 12/14/2005 Depression [F32.A] 12/14/2005 Pain in joint, lower leg [M25.569] 12/14/2005 05/02/2022 ESOPHAGEAL REFLUX [K21.9] 02/01/2006 IMPAIRED FASTING GLUCOSE [R73.01] 02/01/2006 BENIGN NEOPLASM LG BOWEL [D12.6] 03/29/2006 INT HEMORRHOID W/O COMPL [K64.8] 03/29/2006 Hypertrophy of prostate with urinary obstructio*06/17/2008 Pain in joint, pelvic region and thigh [M25.559]09/16/2008 05/02/2022 Spinal stenosis, lumbar [M48.061] 05/19/2010 Disc degeneration, lumbar [M51.369] 06/25/2010 07/05/2016 Gait instability [R26.81] 06/25/2010 Coronary artery disease involving [place]ood*11/23/2010 Anemia [D64.9] 08/20/2013 Nontoxic multinodular goiter [E04.2] 12/12/2013 Gallbladder polyp [K82.4] 06/10/2014 07/05/2016 Cervicalgia [M54.2] 06/18/2014 Lumbar radiculopathy [M54.16] 07/29/2014 Cervical spondylosis [M47.812] 07/29/2014 Cervical strain [S16.1XXA] 07/29/2014 05/02/2022 Left hip pain [M25.552] 10/29/2014 05/02/2022 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 Normal [facility] Modified Barium Swallow Stud [facility] 12-23-2024 Modified Barium Swallow Study [facility] Speech Pathology [address] [place] [address] Modified Barium Swallow Study MR#: [id number] Acct: [id number] Name: RONY MONZON Rep #: [id number] : 1940 84 From: Rosita Pacheco M.A., [facility] Modified Barium Swallow Patient Information Study Date: 12/23/24 Study Time: 09:30 Direct Billable Minutes: 93 Total Minutes procedure reportin Diagnosis: Dysphagia R13.10 Referring Physician: Kristan Huber Reason for Referral: Assess swallow function, assess risk for aspiration, and determine recommendations for any necessary dysphagia interventions. Medical History: Pt established care w/ [facility] on 12/02/2024 for intermittent swallowing difficulty characterized by sensation of retention of foods at the level of his chest, especially white rice, as well as occasional coughing w/ liquids, and throat clearing w/ po intake. He estimates that he has swallowing trouble every other day. His swallowing difficulty onset 2 years ago, but it has recently become worse. Per GI documentation, he had EGD years ago, but pt wasn???t sure if he had required dilation. He denied odynophagia, regurgitation. GI recommended pantoprazole before eating, MBSS, esophageal manometry, and EGD w/ follow-up. 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 Medical History COVID-19 ( 01/18/22) Sepsis due to urinary tract infection History of transesophageal echocardiography (VIOLETTE) Wears hearing aid Wears glasses Depression Anxiety Walker as ambulation aid Arthritis Indwelling urethral catheter present Low iron Easy bruising History of hiatal hernia Former smoker Chest pain History of tilt table evaluation Cardiology follow-up encounter History of echocardiogram History of stress test Enterococcus UTI H/O appendicitis Presence of stent in coronary artery ( 09/08/10) Pure hypercholesterolemia Essential hypertension PTSD (post-traumatic stress disorder) Pulmonary hypertension Restless legs syndrome (RLS) REHAN (obstructive sleep apnea) Syncope and collapse Dizziness and giddiness Fatigue Shortness of breath Dyspnea Precordial chest pain 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?? PER TRIAL): PENETRATION / ASPIRATION SCALE (CLARKE): 1 = does not enter airway 2 = enters airway/above vocal folds/ejected 3 = enters airway/above vocal folds/not ejected 4 = enters airway/contacts vocal folds/ejected 5 = enters airway/contacts vocal folds/not ejected 6 = enters airway/below vocal folds/ejected 7 = enters airway/below vocal folds/not ejected despite effort 8 = enters airway/below vocal folds/no effort VIDEOFLOROSCOPIC SCALE SCORE (CLARKE): Grade I = aspiration of material that has penetrated into the laryngeal vestibule, intact cough reflex Grade II = aspiration < 10 % of the bolus, intact cough reflex Grade III = aspiration of < 10 % of the bolus, reduced cough reflex or aspiration of > 10 % of the bolus, intact cough reflex Grade IV = aspiration of > 10 % of the bolus, reduced cough reflex Penetration-Aspiration Scale Score Thin Liquid via small single sip: cup: Result: 1= does not enter airway Thin Liquid via teaspoon: Result: 1= does not enter airway Thin Liquid via sequential sips: cup: Result: 2= enter airway/above vocal folds/ejected Comment: Esophageal screen - Complete clearance. [place] Thick Liquid via small single sip: cup: Result: 1= does not enter airway Pudding via teaspoon: Result: 1= does not enter airway Comment: Esophageal screen - Complete clearance. 1/2 Cookie: Result: 1= does not enter airway Comment: Esophageal screen - Mild retention in the middle and lower esophagus. Thin Liquid via single sip: straw: Result: 1= does not enter airway Comment: Esophageal screen - Liquid wash effectively cleared cookie retention. Minimal liquids in lower esophagus following this trial. Barium tablet w/ water: Result: 1= does not enter airway Comment: Esophageal screen - Complete clearance. Oral Phase Labial Seal: No Labial Escape Tongue Control During Bolus Hold: Posterior escape of less than half of bolus Bolus Preparation/Mastication : Timely and efficient chewing and mashing Bolus Transport/Lingual Motion: Repetitive/disorganized tongue motion Oral Residue: Residue collection on oral structures Pharyngeal Phase (more content not included)... [facility] CNOVon 12-20-2024 CNOV Office Visit (RUBEN ) RONY MONZON ([id number]) 1940 M [facility] Date Time Provider Department 12/20/24 10:40 AM LANDON STRANGE JR During your visit today, we recorded the following information about you: Respiration Weight 16/minute 97.6 kg Landon Strange Jr., MD 12/20/2024 5:43 PM Signed ESTABLISHED PATIENT VISIT CHIEF COMPLAINT: Follow Up HISTORY OF PRESENT ILLNESS: Rony Monzon is a 84 year old male, BMI 28.39 kg/m2 with a PMH significant for and per last visit of 08/21/24: ASSESSMENT/PLAN: 1. Malaise and fatigue - ICD9: 780.79, ICD10: R53.81, R53.83 (primary diagnosis) 2. Lightheaded - ICD9: 780.4, ICD10: R42 3. Recurrent falls - ICD9: V15.88, ICD10: R29.6 4. Orthostatic hypotension - ICD9: 458.0, ICD10: I95.1 Since last appointment, no significant change with lightheadedness and dizziness. Did reach out to Dr. Arguello's office for changes in blood pressure medications and instructed patient to decrease his amlodipine to 5 mg once daily from twice daily. Patient notes he tried this but it caused him to be too hypertensive so he had to go back to twice daily. 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 Drinking about 40 to 50 ounces of water a day, did try compression socks with no improvement. Is not very physically active but notes he just recently started physical therapy for his back and balance. No falls, syncope since last appointment. Notes he can stand about 10 minutes before he becomes extremely symptomatic and has to sit back down. As he was unable to tolerate medication change per the recommendations of Dr. Arguello, will reach out to his office again about possibly starting Florinef or other suggestions. Encouraged conservative therapy in the meantime. 5. Weakness of both lower extremities - ICD9: 729.89, ICD10: R29.898 Stable, no change, undergoing physical therapy at this time. 6. History of stroke - ICD9: V12.54, ICD10: Z86.73 No new symptoms that would warrant additional workup at this time. Currently on Plavix and statin medication. Per my last note of 01/26/24: 1. Lightheaded - ICD9: 780.4, ICD10: R42 (primary diagnosis) 2. Orthostatic hypotension - ICD9: 458.0, ICD10: I95.1 3. Recurrent falls - ICD9: V15.88, ICD10: R29.6 4. Weakness of both lower extremities - ICD9: 729.89, ICD10: R29.898 5. 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 Spinal stenosis of cervical region - ICD9: 723.0, ICD10: M48.02 7. Spinal stenosis of lumbar region, unspecified whether neurogenic 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 present - ICD9: 724.02, ICD10: M48.061 Patient with history of recurrent falls that I suspect are multifactorial including known spine disease as well as history of orthostatic hypotension. At this time, patient's primary complaint is lightheadedness and loss of balance or falls associated with position change of sitting to standing. Suspect due to orthostatic hypotension with drop in BP noted today with position change, but no change in HR remaining at ~60 BPM. Component of orthostatic hypotension could be decreased water intake and pt encouraged to try and drink more (instructions on appropriate intake provided). Also question if component of autonomic dysfunction associated with known C spine cord myelomalacia and/or neuropathy (small fiber). Before initiating therapy, and given cardiac history, would like opinion of human resource intern Dr. Arguello. Question if benefit in lowering blood pressure dosing including possible beta anderson to allow for cardiac response to position change. If felt BP meds should not be changed, then would like opinion in regards to starting Florinef. Pt does have compression stockings but does not like using - encouraged he try again. As for known spine disease, encouraged pt to follow up with his surgeons at [facility]. 8. History of stroke - ICD9: V12.54, ICD10: Z86.73 Patient with no clinical symptoms. Noted on brain imaging. On Plavix and statin. No additional recs at this time with goal BP <140/90 and goal glucose <140. 9. Headaches - ICD9: 784.0, ICD10: R51.9 Resolved. Patient states they tried to lower BP meds but BP went up to systolic of 200. Still lightheadedness. Per everyday. Pt felt compression stockings after 2 months did not provide significant relief and thus, stopped due to the struggle to put them on. When asked about water intake, about 4 glasses per day, but indicates likely less. In addition drinks bottle of ensure every AM. Also drinks Coke. Pt not sure why not drinking more water. States PT did not make a big difference. Headaches resolved. Still on Plavix daily. REVIEW OF SYSTEMS GENERAL:No weight loss, malaise or fevers. HEENT:Negative for frequent or significant headaches, No changes in hearing or vision, no nose bleeds or other nasal problems NECK:Negative for (more content not included)... Normal [facility] RONY MONZON ([id number]) 1940 M [facility] Date Time Provider Department 12/20/24 LANDON STRANGE JR During your visit today, we recorded the following information about you: Delmis Cooney LPN 12/20/2024 5:41 PM Signed OV note from today's visit forwarded to Dr Arguello as requested by Dr Strange. Delmis Cooney LPN Allergies As of Date: 12/20/2024 Noted Allergy Reaction LYRICA (PREGABALIN) 08/01/2016 7 - Swelling Comments: B/L hand swelling NEURONTIN (GABAPENTIN) 05/31/2016 7 - Swelling Comments: Feels that he does not have a true allergy to this medication. States he had swelling, not rash. NORFLEX (ORPHENADRINE CITRATE) 04/12/2016 8 - GI Upset Date Reviewed: 12/20/2024 Reviewed by: Landon Strange Jr., MD - Fully Assessed Reason for Visit: Patient Update [1234] Cmt: Notes to Dr Arguello Prescriptions as of 01/06/2025 - magnesium hydroxide (TORRES MILK OF MAGNESIA PO) Take 30 mL by mouth once daily as needed. - amoxicillin (AMOXIL) 500 mg capsule 4 capsules 1 hours prior to dental procedure. - rosuvastatin (CRESTOR) 10 mg tablet Take 1 tablet by mouth daily at bedtime. - propranolol (INDERAL) 20 mg tablet Take 1 tablet by mouth two times a day. - amLODIPine (NORVASC) 5 mg tablet Take 1 tablet by mouth two times a day. - clopidogrel (PLAVIX) 75 mg tablet Take 1 tablet by mouth once daily. - FLUoxetine (PROZAC) 40 mg capsule Take 1 capsule by mouth once daily. - oxyCODONE IR (ROXICODONE) 5 mg immediate release tablet EVERY 6 HOURS NEEDED - lisinopril (PRINIVIL) 10 mg tablet Take 1 tablet by mouth twice daily. Dr. Moodispaw - nitroglycerin sublingual (NITROSTAT) 0.4 mg SL tablet Dissolve 1 tablet under the tongue every 5 minutes as needed for chest pain. - acetaminophen (TYLENOL EXTRA STRENGTH) 500 mg tablet Take 1 tablet by mouth every 6 hours as needed for pain. - multivitamin tablet Take 1 tablet by mouth once daily. Problem List As Of Date 12/20/2024 Noted Resolved BENIGN HYPERTENSION [I10] 12/14/2005 Hyperlipidemia, mixed [E78.2] 12/14/2005 Depression [F32.A] 12/14/2005 Pain in joint, lower leg [M25.569] 12/14/2005 05/02/2022 ESOPHAGEAL REFLUX [K21.9] 02/01/2006 IMPAIRED FASTING GLUCOSE [R73.01] 02/01/2006 BENIGN NEOPLASM LG BOWEL [D12.6] 03/29/2006 INT HEMORRHOID W/O COMPL [K64.8] 03/29/2006 Hypertrophy of prostate with urinary obstructio*06/17/2008 Pain in joint, pelvic region and thigh [M25.559]09/16/2008 05/02/2022 Spinal stenosis, lumbar [M48.061] 05/19/2010 Disc degeneration, lumbar [M51.369] 06/25/2010 07/05/2016 Gait instability [R26.81] 06/25/2010 Coronary artery disease involving [place]*11/23/2010 Anemia [D64.9] 08/20/2013 Nontoxic multinodular goiter [E04.2] 12/12/2013 Gallbladder polyp [K82.4] 06/10/2014 07/05/2016 Cervicalgia [M54.2] 06/18/2014 Lumbar radiculopathy [M54.16] 07/29/2014 Cervical spondylosis [M47.812] 07/29/2014 Cervical strain [S16.1XXA] 07/29/2014 05/02/2022 Left hip pain [M25.552] 10/29/2014 05/02/2022 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] 02/04/2015 Hip pain [M25.559] 02/04/2015 05/02/2022 DDD (degenerative disc disease), lumbar [M51.36*06/08/2015 Spinal stenosis, lumbar region, with neurogenic*05/17/2016 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] 07/20/2017 CKD (chronic kidney disease) Stage 3, GFR 30-59*08/22/2017 04/27/2023 Tremor [R25.1] 07/27/2018 Vasovagal syncope [R55] 07/27/2018 REHAN on CPAP [G47.33] 07/27/2018 Primary osteoarthritis of right hip [M16.11] 07/27/2018 History of total right hip arthroplasty [Z96.64*08/08/2018 Low back pain [M54.50] 02/04/2019 WILY (generalized anxiety disorder) [F41.1] 03/04/2020 Hypertensive kidney disease with stage 3 chroni*05/02/2022 04/27/2023 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 (HCC) [I73.9] 11/03/2022 Type 2 diabetes mellitus without complication, *11/03/2022 06/02/2023 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] 11/03/2022 Orthostatic hypotension [I95.1] 11/29/2024 SOB (shortness of breath) on exertion [R06.02] 11/29/2024 History of CVA in adulthood [Z86.73] 11/29/2024 Encounter Status:Closed by DELMIS COONEY on 01/06/25 Normal [facility] Bacteria Ur Culton 5 Bacteria identified Cx Nom (U) ORGANISM ID: 1 <10,000 CFU/ml Normal urogenital miguel Normal [facility] Comment on above: Performed By: #### 6 30-4 ####[facility] [id number] [address] [place] CNOVon 12-18-2024 CNOV Office Visit (GENSWS ) RONY MONZON ([id number]) 1940 M [facility] Date Time Provider Department 12/18/24 2:00 PM GERTRUDE ALLEN During your visit today, we recorded the following information about you: Temperature Pulse Respiration Blood pressure 97.1 degrees 68/minute 14/minute 130/72 Weight 94.3 kg Gertrude Allen APRN.CNP 12/18/2024 3:12 PM Signed SUBJECTIVE: Rony Monzon presents for follow up of his umbilical hernia repair WITH mesh. On 12/13/24 he underwent a hernia repair, tolerated the procedure well and was discharged home. Rony notes that he developed difficulty with his urinary stream on POD #4. -notes hx of prostate issues AND has had trouble with urinary stream occasionally prior to surgery, had LUTS procedure 2-3 years ago, follows with Dr. Ibarra -still taking percocet twice a day -notes he struggled with constipation post op-had a large BM a couple of days ago after taking milk of mag, now having diarrhea. -notes he struggles with constipation prior to surgery -he denies any hematuria/cloudy/foul smelling/dark urine Rony notes he is icing the abdomen and it is helping with pain management OBJECTIVE: BP 130/72 (BP Site: Right Arm, BP Position: Sitting, BP Cuff Size: Regular Adult) Pulse 68 Temp 36.2 ?C (97.1 ?F) (Temporal) Resp 14 Wt 94.3 kg (208 lb) SpO2 96% BMI 27.44 kg/m? General Appearance: Well developed, No acute distress Abdomen: Abdomen soft, non-distended. Incision: no drainage, no erythema, mild swelling, moderate ecchymosis, and mild tenderness PVR:0 IMPRESSION: Post op course: Normal PLAN: -Start using miraLAX daily while taking the percocet -Drink plenty of water -Okay to remove dressing in the next couple of day -Continue to ice the incision -I will call with UA results -Schedule follow up appt with Dr. Ibarra since urinary issues have been a problem prior to surgery Follow up: on Dec 27 for scheduled post op visit or sooner with worsening symptoms MAGALYS Lawrence Kimberly, LPN 12/18/2024 3:12 PM Signed Interpreting services utilized via (academic interventionist service modality: academic interventionist not needed for appointment). Patient can hear but is hard of hearing and is accompanied by his , Tere. Verified name and date of . CC Post Void Residual HPI: Rony Monzon is a 84 year old male. The patient is here now for an appointment with Micheal Allen APRN, CNP due to post operative weak urinary stream. Procedure: Explained procedure to patient and verbalizes understanding. Performed a PVR. Patient urinated and instructed to empty bladder as much as possible just prior to having PVR done using bladder ultrasound scanner. Results of scan: 0 mL The patient tolerated the procedure well. Plan: Micheal Allen APRN, CNP Allergies As of Date: 12/18/2024 Noted Allergy Reaction LYRICA (PREGABALIN) 08/01/2016 7 - Swelling Comments: B/L hand swelling NEURONTIN (GABAPENTIN) 05/31/2016 7 - Swelling Comments: Feels that he does not have a true allergy to this medication. States he had swelling, not rash. NORFLEX (ORPHENADRINE CITRATE) 04/12/2016 8 - GI Upset Date Reviewed: 12/18/2024 Reviewed by: Rachel Pettit LPN - Fully Assessed Reason for Visit: Follow Up [171] Weak urinary stream post surgery. [Other] Primary Visit Diagnosis:Weak urinary stream [R39.12] Other Visit Diagnoses:Screening for genitourinary condition [Z13.89] Umbilical hernia without obstruction and without gangrene [K42.9] Order(s):BACTERIAL CULTURE, URINE [SQURCUL] Order #: [id number] FUTURE POST VOID RESIDUAL [1924820] Order #: [id number] URINALYSIS (WITH MICROSCOPIC) WITH CULTURE IF INDICATED [SQUACII] Order #: [id number] FUTURE Prescriptions as of 12/18/2024 - magnesium hydroxide (TORRES MILK OF MAGNESIA PO) Take 30 mL by mouth once daily as needed. - oxyCODONE-acetaminophen (PERCOCET) 5-325 mg tablet Take 1 tablet by mouth every 6 hours as needed for up to 5 days. - amoxicillin (AMOXIL) 500 mg capsule 4 capsules 1 hours prior to dental procedure. - rosuvastatin (CRESTOR) 10 mg tablet Take 1 tablet by mouth daily at bedtime. - propranolol (INDERAL) 20 mg tablet Take 1 tablet by mouth two times a day. - amLODIPine (NORVASC) 5 mg tablet Take 1 tablet by mouth two times a day. - clopidogrel (PLAVIX) 75 mg tablet Take 1 tablet by mouth once daily. - FLUoxetine (PROZAC) 40 mg capsule Take 1 capsule by mouth once daily. - oxyCODONE IR (ROXICODONE) 5 mg immediate release tablet EVERY 6 HOURS NEEDED - lisinopril (PRINIVIL) 10 mg tablet Take 1 tablet by mouth twice daily. Dr. Kramer - nitroglycerin sublingual (NITROSTAT) 0.4 mg SL tablet Dissolve 1 tablet under the tongue every 5 minutes as needed for chest pain. - acetaminophen (TYLENOL EXTRA STRENGTH) 500 mg tablet Take 1 tablet by mouth every 6 ho (more content not included)... Normal [facility] 12-18-2024 [facility] Telephone ([employer]) RONY MONZON ([id number]) 1940 M [facility] Date Time Provider Department 12/18/24 SHELDON SLATER During your visit today, we recorded the following information about you: Alejandra Gutierrez LPN 12/18/2024 9:26 AM Signed Patient and called into office stating that starting yesterday 12/17/2024 patient began experiencing difficultly urinating. Patient complain of weak stream and that he can not empty bladder completely. Patient states that he feels that symptoms are worse today. Patient states not blood in urine. Advise patient that if he comes unable to urinate at all to present to ED. Please advise and contact patient and at [phone]. JAYJAY Phillips Daniel P, MD 12/18/2024 11:00 AM Signed Get the patient into see karla Allergies As of Date: 12/18/2024 Noted Allergy Reaction LYRICA (PREGABALIN) 08/01/2016 7 - Swelling Comments: B/L hand swelling NEURONTIN (GABAPENTIN) 05/31/2016 7 - Swelling Comments: Feels that he does not have a true allergy to this medication. States he had swelling, not rash. NORFLEX (ORPHENADRINE CITRATE) 04/12/2016 8 - GI Upset Date Reviewed: 12/13/2024 Reviewed by: Sveta Pink RN - Fully Assessed Prescriptions as of 12/18/2024 - oxyCODONE-acetaminophen (PERCOCET) 5-325 mg tablet Take 1 tablet by mouth every 6 hours as needed for up to 5 days. - amoxicillin (AMOXIL) 500 mg capsule 4 capsules 1 hours prior to dental procedure. - rosuvastatin (CRESTOR) 10 mg tablet Take 1 tablet by mouth daily at bedtime. - propranolol (INDERAL) 20 mg tablet Take 1 tablet by mouth two times a day. - amLODIPine (NORVASC) 5 mg tablet Take 1 tablet by mouth two times a day. - clopidogrel (PLAVIX) 75 mg tablet Take 1 tablet by mouth once daily. - FLUoxetine (PROZAC) 40 mg capsule Take 1 capsule by mouth once daily. - oxyCODONE IR (ROXICODONE) 5 mg immediate release tablet EVERY 6 HOURS NEEDED - lisinopril (PRINIVIL) 10 mg tablet Take 1 tablet by mouth twice daily. Dr. Kramer - nitroglycerin sublingual (NITROSTAT) 0.4 mg SL tablet Dissolve 1 tablet under the tongue every 5 minutes as needed for chest pain. - acetaminophen (TYLENOL EXTRA STRENGTH) 500 mg tablet Take 1 tablet by mouth every 6 hours as needed for pain. - multivitamin tablet Take 1 tablet by mouth once daily. Problem List As Of Date 12/18/2024 Noted Resolved BENIGN HYPERTENSION [I10] 12/14/2005 Hyperlipidemia, mixed [E78.2] 12/14/2005 Depression [F32.A] 12/14/2005 Pain in joint, lower leg [M25.569] 12/14/2005 05/02/2022 ESOPHAGEAL REFLUX [K21.9] 02/01/2006 IMPAIRED FASTING GLUCOSE [R73.01] 02/01/2006 BENIGN NEOPLASM LG BOWEL [D12.6] 03/29/2006 INT HEMORRHOID W/O COMPL [K64.8] 03/29/2006 Hypertrophy of prostate with urinary obstructio*06/17/2008 Pain in joint, pelvic region and thigh [M25.559]09/16/2008 05/02/2022 Spinal stenosis, lumbar [M48.061] 05/19/2010 Disc degeneration, lumbar [M51.369] 06/25/2010 07/05/2016 Gait instability [R26.81] 06/25/2010 Coronary artery disease involving [place]*11/23/2010 Anemia [D64.9] 08/20/2013 Nontoxic multinodular goiter [E04.2] 12/12/2013 Gallbladder polyp [K82.4] 06/10/2014 07/05/2016 Cervicalgia [M54.2] 06/18/2014 Lumbar radiculopathy [M54.16] 07/29/2014 Cervical spondylosis [M47.812] 07/29/2014 Cervical strain [S16.1XXA] 07/29/2014 05/02/2022 Left hip pain [M25.552] 10/29/2014 05/02/2022 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] 02/04/2015 Hip pain [M25.559] 02/04/2015 05/02/2022 DDD (degenerative disc disease), lumbar [M51.36*06/08/2015 Spinal stenosis, lumbar region, with neurogenic*05/17/2016 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] 07/20/2017 CKD (chronic kidney disease) Stage 3, GFR 30-59*08/22/2017 04/27/2023 Tremor [R25.1] 07/27/2018 Vasovagal syncope [R55] 07/27/2018 REHAN on CPAP [G47.33] 07/27/2018 Primary osteoarthritis of right hip [M16.11] 07/27/2018 History of total right hip arthroplasty [Z96.64*08/08/2018 Low back pain [M54.50] 02/04/2019 WILY (generalized anxiety disorder) [F41.1] 03/04/2020 Hypertensive kidney disease with stage 3 chroni*05/02/2022 04/27/2023 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 (HCC) [I73.9] 11/03/2022 Type 2 diabetes mellitus without complication, *11/03/2022 06/02/2023 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] 11/03/2022 Orthostatic hypotension [I95.1] 11/29/2024 SOB (shortness of breath) on exertion [R06.02] 11/29/2024 History of CVA in adulthood [Z86.73] 11/29/2024 Encounter Status:Closed by RACHEL PETTIT on 12/18/24 Normal [facility] Urinalysis complete panel (U )on 12-18-2024 Bacteria LM.HPF (Urine sed) [#/Area] Negative Negative /HPF [facility] Bilirubin Ql (U) Negative Negative [facility] Clarity (Unsp spec) Clear Clear [facility] Color (U) Yellow Yellow [facility] Epithelial cells LM.HPF (Urine sed) [#/Area] None Seen /HPF [facility] Glucose Test strip (U) [Mass/Vol] Negative Negative [facility] Hemoglobin Ql (U) Negative Negative [facility] Hyaline casts (Urine sed) [#/Area] 0 /[LPF] 0 /LPF [facility] Interpretation and review of laboratory results Abnormal [facility] Ketones Ql (U) Negative Negative [facility] Leukocyte esterase Test strip Ql (U) Negative Negative [facility] Nitrite Ql (U) Negative Negative [facility] pH (U) 7.5 [pH] 5.0 - 8.0 [facility] Protein (U) [Mass/Vol] Trace Abnormal Negative [facility] RBC LM.HPF (Urine sed) [#/Area] 0-2 /HPF 0-2 /HPF [facility] Specific gravity (U) [Rel density] 1.008 1.005 - 1.030 [facility] Urobilinogen Ql (U) 0.2 EU/dL 0.2-1.0 EU/dL [facility] WBC LM.HPF (Urine sed) [#/Area] 0-5 /HPF 0-5 /HPF [facility] This test was devtiao ped and its performance characteristics determined by [facility]'s Carlos Enrique [facility] [place] [facility] It has not been cleared or approved by the FDA. [facility] is regulated under CLIA as qualified to perform high-complexity testing. This test is used for clinical purposes. It should not be regarded as investigational or for research. [facility] Bacteria LM.HPF (Urine sed) [#/Area] Negative Normal Negative [facility] Comment on above: Order Comment: Speci men Type: BLOOD SPECIMEN Ordering Facility: [facility] Address: [address] [place] [address] Performed By: #### 5 5454-3 #### [facility] CLIA [id number] [address] [place] [address] [place] Bilirubin Ql (U) Negative Normal Negative [facility] Comment on above: Order Comment: Speci men Type: BLOOD SPECIMEN Ordering Facility: [facility] Address: [address] [place] [address] Performed By: #### 5 5454-3 #### [facility] CLIA [id number] [address] [place] [address] [place] Clarity (Unsp spec) Clear Normal Clear [facility] Comment on above: Order Comment: Speci men Type: BLOOD SPECIMEN Ordering Facility: [facility] Address: [address] [place] [address] Performed By: #### 5 5454-3 #### [facility] CLIA [id number] [address] [place] [address] [place] Color (U) Yellow Normal Yellow [facility] Comment on above: Order Comment: Speci men Type: BLOOD SPECIMEN Ordering Facility: [facility] Address: [address] [place] [address] Performed By: #### 5 5454-3 #### [facility] CLIA [id number] [address] [place] [address] [place] Epithelial cells LM.HPF (Urine sed) [#/Area] None Seen Normal [facility] Comment on above: Order Comment: Speci men Type: BLOOD SPECIMEN Ordering Facility: [facility] Address: [address] [place] [address] Performed By: #### 5 5454-3 #### [facility] CLIA [id number] [address] [place] [address] [place] Glucose Test strip (U) [Mass/Vol] Negative Normal Negative [facility] Comment on above: Order Comment: Speci men Type: BLOOD SPECIMEN Ordering Facility: [facility] Address: [address] [place] [address] Performed By: #### 5 5454-3 #### [facility] CLIA [id number] [address] [place] [address] [place] Hemoglobin Ql (U) Negative Normal Negative [facility] Comment on above: Order Comment: Speci men Type: BLOOD SPECIMEN Ordering Facility: [facility] Address: [address] [place] [address] Performed By: #### 5 5454-3 #### [facility] CLIA [id number] [address] [place] [address] [place] Hyaline casts (Urine sed) [#/Area] 0 /[LPF] Normal 0 /LPF [facility] Comment on above: Order Comment: Speci men Type: BLOOD SPECIMEN Ordering Facility: [facility] Address: [address] [place] [address] Performed By: #### 5 5454-3 #### [facility] CLIA [id number] [address] [place] [address] [place] Ketones Ql (U) Negative Normal Negative [facility] Comment on above: Order Comment: Speci men Type: BLOOD SPECIMEN Ordering Facility: [facility] Address: [address] [place] [address] Performed By: #### 5 5454-3 #### [facility] CLIA [id number] [address] [place] [address] [place] Leukocyte esterase Test strip Ql (U) Negative Normal Negative [facility] Comment on above: Order Comment: Speci men Type: BLOOD SPECIMEN Ordering Facility: [facility] Address: [address] [place] [address] Performed By: #### 5 5454-3 #### [facility] CLIA [id number] [address] [place] [address] [place] Nitrite Ql (U) Negative Normal Negative [facility] Comment on above: Order Comment: Speci men Type: BLOOD SPECIMEN Ordering Facility: [facility] Address: [address] [place] [address] Performed By: #### 5 5454-3 #### [facility] CLIA [id number] [address] [place] [address] [place] pH (U) 7.5 [pH] Normal 5.0-8.0 [facility] Comment on above: Order Comment: Speci men Type: BLOOD SPECIMEN Ordering Facility: [facility] Address: [address] [place] [address] Performed By: #### 5 5454-3 #### [facility] CLIA [id number] [address] [place] [address] [place] Protein (U) [Mass/Vol] Trace Abnormal Negative [facility] Comment on above: Order Comment: Speci men Type: BLOOD SPECIMEN Ordering Facility: [facility] Address: [address] [place] [address] Performed By: #### 5 5454-3 #### [facility] CLIA [id number] [address] [place] [address] [place] RBC LM.HPF (Urine sed) [#/Area] 0-2 /HPF Normal 0-2 /HPF [facility] Comment on above: Order Comment: Speci men Type: BLOOD SPECIMEN Ordering Facility: [facility] Address: [address] [place] [address] Performed By: #### 5 5454-3 #### [facility] CLIA [id number] [address] [place] [address] [place] Specific gravity (U) [Rel density] 1.008 Normal 1.005-1.030 [facility] Comment on above: Order Comment: Speci men Type: BLOOD SPECIMEN Ordering Facility: [facility] Address: [address] [place] [address] Performed By: #### 5 5454-3 #### [facility] CLIA [id number] [address] [place] [address] [place] Urobilinogen Ql (U) 0.2 EU/dL Normal 0.2-1.0 EU/dL [facility] Comment on above: Order Comment: Speci men Type: BLOOD SPECIMEN Ordering Facility: [facility] Address: [address] [place] [address] Performed By: #### 5 5454-3 #### [facility] CLIA [id number] [address] [place] [address] [place] WBC LM.HPF (Urine sed) [#/Area] 0-5 /HPF Normal 0-5 /HPF [facility] Comment on above: Order Comment: Speci men Type: BLOOD SPECIMEN Ordering Facility: [facility] Address: [address] [place] [address] Performed By: #### 5 5454-3 #### [facility] CLIA [id number] [address] [place] [address] [place] ANES POSTPROC EVALon 025 ANES POSTPROC EVAL HNO ID: [id number] Author: MERON GIBSON MD Service: Anesthesiology Author Type: Anesthesiologist Type: Anesthesia Postprocedure Evaluation Filed: 12/13/2024 11:22 Note Text: POST ANESTHESIA EVALUATION NOTE : 1940 Procedure Summary Date: 12/13/24 Room / Location: [facility] OR / [facility] OR Anesthesia Start: 920 Anesthesia Stop: 1030 Procedure: HERNIORRHAPHY UMBILICAL REDUCIBLE 3cm-10cm (Abdomen) Diagnosis: Umbilical hernia without obstruction and without gangrene (Umbilical hernia without obstruction and without gangrene [K42.9]) Surgeons: Sheldon Slater MD Responsible Provider: Meron Gibson MD Anesthesia Type: MAC, general ASA Status: 3 Anesthesia Type: MAC, general Airway Type: ETT Last Vitals Vitals Value Taken Time BP 182/87 12/13/24 1100 Temp 36.1 ?C (97 ?F) 12/13/24 1030 Pulse 61 12/13/24 1110 Resp 20 12/13/24 1110 SpO2 97 % 12/13/24 1108 Vitals shown include unfiled device data. Post Anesthesia Patient Status Patient Evaluation: bedside. Anticipated Disposition: phase 2 then home. Neurological Status: aware and responsive. Pulmonary Status: breathing comfortably on room air Airway Control: returned to baseline unsupported. Cardiovascular Status: stable. Pain Management: clinically adequate Postoperative Hydration: acceptable. Intraoperative Events: no significant anesthesia events Post Operative Nausea/Vomiting Status: no significant post operative nausea or vomiting Recommendation: continue current plan of care. Anesthesia Observations No Documentation SIGNATURE: Meron Gibson MD PATIENT NAME: Rony Monzon DATE: December 13, 2024 TIME: 11:21 AM CSN: [id number] [facility] ANES PRE-OPon 12-13-2024 ANES PRE-OP HNO ID: [id number] Author: MERON GIBSON MD Service: Anesthesiology Author Type: Anesthesiologist Type: Anesthesia Preprocedure Evaluation Filed: 12/13/2024 09:21 Note Text: ANESTHESIOLOGY DAY OF SURGERY NOTE : 1940 Procedure Information Date/Time: 12/13/24 0859 Procedure: HERNIORRHAPHY UMBILICAL REDUCIBLE 3cm-10cm Location: [facility] OR04 / [facility] OR Surgeons: Sheldon Slater MD Estimated body mass index is 28.76 kg/m? as calculated from the following: Height as of this encounter: 185.4 cm (6' 1). Weight as of this encounter: 98.9 kg (218 lb). Most recent hematocrit and potassium results: Hematocrit 38.4 08/23/2024 Potassium 4.7 08/23/2024 Relevant Problems ANESTHESIA (+) REHAN on CPAP CARDIO (+) Coronary artery disease involving [place] coronary artery of [place] heart without angina pectoris (+) Essential hypertension, benign (+) Internal hemorrhoids without mention of complication (+) SOB (shortness of breath) on exertion GI (+) Esophageal reflux NEURO-PSYCH (+) History of CVA in adulthood PULMONARY (+) REHAN on CPAP (+) SOB (shortness of breath) on exertion Other (+) Primary osteoarthritis of right hip I - PHYSICAL EVALUATION AIRWAY Patient intubated: No. Tracheostomy tube not present Mallampati: III. TM distance: >3 FB. Neck ROM: full ROM without neurological symptoms. Mouth opening: adequate. Short neck: no. Thick neck: no Resendiz present: no Microretrognathia/Micro nagthia/Recessed Chin: No DENTAL Dental findings: missing tooth/teeth. Additional exam findings: yes. CARDIOVASCULAR Rhythm: regular Rate: normal PULMONARY Breath sounds clear to auscultation. II - ANESTHESIA PLAN ASA Score: 3 Anesthetic Plan: MAC and general Airway type: ETT The patient is not a current smoker. NPO Status: adequate Beta Anderson Administration of chronic beta anderson medication not planned. Monitoring Plan Monitoring plan: standard ASA. Post Procedure Analgesic Plan Postoperative analgesic plan: parenteral or oral opioids. Informed Consent Anesthetic risks, benefits, alternatives, personnel and consent discussed: yes. Patient / Responsible Green Party agrees to proceed: yes Patient / Surrogate agrees to blood products: blood products not planned DNR status not reviewed with patient and/or family prior to surgery. Significant changes in the patient condition since the History and Physical, not otherwise documented in primary service progress note: no. Potential Anesthesia issues that may suggest increased risk of complications or contraindication to planned procedure: none. Vitals Value Taken Time BP 182/84 12/13/24 0757 Pulse Resp 18 12/13/24 0757 Temp 36.2 ?C (97.2 ?F) 12/13/24 0757 SpO2 99 % 12/13/24 0757 Facility-Administered Medications as of 12/13/2024 Medication Dose Route Frequency lidocaine (PF) 10 mg/mL (1 %) 1-2 mg injection (XYLOCAINE) 0.1-0.2 mL INTRADERMAL PRN lactated ringers iv infusion 5-30 mL/hr INTRAVENOUS CONTINUOUS NaCl 0.9% iv flush bag 20 mL INTRAVENOUS PRN ceFAZolin iv piggyback 2 g in D5W (iso-osmotic) 100 mL (ANCEF) 2 g INTRAVENOUS Pre-Op Once Outpatient Medications as of 12/13/2024 Medication Sig rosuvastatin (CRESTOR) 10 mg tablet Take 1 tablet by mouth daily at bedtime. propranolol (INDERAL) 20 mg tablet Take 1 tablet by mouth two times a day. amLODIPine (NORVASC) 5 mg tablet Take 1 tablet by mouth two times a day. FLUoxetine (PROZAC) 40 mg capsule Take 1 capsule by mouth once daily. lisinopril (PRINIVIL) 10 mg tablet Take 1 tablet by mouth twice daily. Dr. Kramer acetaminophen (TYLENOL EXTRA STRENGTH) 500 mg tablet Take 1 tablet by mouth every 6 hours as needed for pain. clopidogrel (PLAVIX) 75 mg tablet Take 1 tablet by mouth once daily. oxyCODONE IR (ROXICODONE) 5 mg immediate release tablet EVERY 6 HOURS NEEDED nitroglycerin sublingual (NITROSTAT) 0.4 mg SL tablet Dissolve 1 tablet under the tongue every 5 minutes as needed for chest pain. multivitamin tablet Take 1 tablet by mouth once daily. I have interviewed and examined the patient. I have reviewed the medical record and/or the pre-anesthesia evaluation, pertinent labs, and test results. This contains updated information obtained within 48 hours of Surgery/Procedure. SIGNATURE: Meron Gibson MD PATIENT NAME: Rony Monzon DATE: December 13, 2024 TIME: 9:19 AM CSN: [id number] Normal [facility] HISTORY PHYSICALon HISTORY PHYSICAL HNO ID: [id number] Author: SHELDON SLATER MD Service: General Surgery Author Type: Physician Type: H&P Filed: 12/13/2024 08:49 Note Text: HISTORY AND PHYSICAL Rony Monzon 1940 REFERRING PHYSICIAN: George Vaughan MD CHIEF COMPLAINT: Abdominal Mass ([facility] ED f/u - umbilical hernia) HPI: Rony is a 84 year old male with a complaint of a bulge and discomfort in his umbilical region. The patient notes discomfort in this area with lifting. The symptoms have increased, over the past few weeks. The patient notes no symptoms of bowel obstruction and denies nausea or vomiting. The patient was seen by the emergency room physician who felt the patient has a hernia. Rony was referred for evaluation and treatment. The patient is being seen by me today at the request of Dr. George Vaughan MD for my opinion and advice regarding Umbilical hernia without obstruction and without gangrene (primary encounter diagnosis). PAST MEDICAL HISTORY PAST MEDICAL HISTORY Diagnosis Date Adjustment disorder with depressed mood Anemia Benign neoplasm of colon Constipation Coronary artery disease Diabetes (HCC) Essential hypertension, benign Gallbladder polyp needs repeat ultrasound in 06/06 H/O hiatal hernia Impaired fasting glucose Internal hemorrhoids without mention of complication Other and unspecified hyperlipidemia Personal history of colonic polyps Umbilical hernia PAST SURGICAL HISTORY PAST SURGICAL HISTORY Procedure Laterality Date APPENDECTOMY ARTHRP ACETBLR/PROX FEM PROSTC AGRFT/ALGRFT Right 08/08/2018 Dr. Charly Suh CARDIAC CATH N/A 02/02/2015 Completed at [facility] COLONOSCOPY FLX DX W/COLLJ SPEC WHEN PFRMD 07/11/12 Colonoscopy COLONOSCOPY FLX DX W/COLLJ SPEC WHEN PFRMD 02/24/2017 Colonoscopy COLONOSCOPY W/BIOPSY SINGLE/MULTIPLE 03/29/06 ESOPHAGOGASTRODUODENOSC OPY TRANSORAL DIAGNOSTIC 02/24/2017 EGD [place] W/O FACETEC FORAMOT/DSC 05/[address] Cole PAST SURGICAL HISTORY OF Right 2007 knee surgery RPR [place] VAGINALIS HYDROCELE BOTTLE TYPE STENT PLACEMENT 08/2010 [facility] VASECTOMY UNI/BI SPX W/POSTOP SEMEN EXAMS CURRENT MEDICATIONS Current Outpatient Medications Medication Sig rosuvastatin (CRESTOR) 10 mg tablet Take 1 tablet by mouth daily at bedtime. propranolol (INDERAL) 20 mg tablet Take 1 tablet by mouth two times a day. amLODIPine (NORVASC) 5 mg tablet Take 1 tablet by mouth two times a day. clopidogrel (PLAVIX) 75 mg tablet Take 1 tablet by mouth once daily. FLUoxetine (PROZAC) 40 mg capsule Take 1 capsule by mouth once daily. amoxicillin (AMOXIL) 500 mg capsule 4 capsules 1 hours prior to dental procedure. oxyCODONE IR (ROXICODONE) 5 mg immediate release tablet EVERY 6 HOURS NEEDED lisinopril (PRINIVIL) 10 mg tablet Take 1 tablet by mouth twice daily. Dr. Kramer nitroglycerin sublingual (NITROSTAT) 0.4 mg SL tablet Dissolve 1 tablet under the tongue every 5 minutes as needed for chest pain. acetaminophen (TYLENOL EXTRA STRENGTH) 500 mg tablet Take 1 tablet by mouth every 6 hours as needed for pain. multivitamin tablet Take 1 tablet by mouth once daily. No current facility-administered medications for this visit. ALLERGIES: Lyrica [Pregabalin], Neurontin [Gabapentin], and Norflex [Orphenadrine Citrate] PERSONAL HISTORY: SOCIAL HISTORY Social History Tobacco Use Smoking status: Former Current packs/day: 0.00 Types: Cigarettes, Pipe Start date: 1962 Quit date: 1981 Years since quittin.5 Passive exposure: Past Smokeless tobacco: Former Quit date: 05/22/1981 Tobacco comments: Quit in 1981 Vaping Use Vaping status: Never Used Substance Use Topics Alcohol use: No Drug use: No FAMILY HISTORY: FAMILY HISTORY FAMILY HISTORY Problem Relation Age of Onset Heart Brother valvular heart disease Heart Brother valvular heart disease Heart Brother valvular heart diease Hypertension Sister COPD Father Stroke Father Heart Mother REVIEW OF SYMPTOMS: The review of systems data was entered by the nurse and reviewed by me There are no exam notes on file for this visit. PHYSICAL EXAMINATION: General: The patient is 84 year old male, well nourished, well hydrated in no acute distress. The patient is oriented to time, place, and person. VITALS: Blood pressure 136/64, pulse 81, temperature 36.2 ?C (97.1 ?F), resp. rate 19, height 185.4 cm (6' 1), weight 98.3 kg (216 lb 12.8 oz), SpO2 97%. Body mass index is 28.6 kg/m?. HEENT: Normal cephalic, ataumatic, pupils are equally round, sclera are anicteric, mucous membranes are moist, oropharynx is clear. Neck has no masses, asymmetry or lymphadenopathy. Thyroid is unremarkable. Respiratory: Clear to auscultation and percussion. Normal respiratory excursion and pattern. Cardiac: Examination is regular rate and rhythm. Abdominal exam: Soft, nontender, with no palpable masses. N (more content not included)... Normal [facility] OPERATIVE NOon 12-13-2024 OPERATIVE NO HNO ID: [id number] Author: SHELDON SLATER MD Service: General Surgery Author Type: Physician Type: Operative Report Filed: 12/13/2024 10:29 Note Text: OPERATIVE/PROCEDURE REPORT LOG ID: [id number] SURGERY/PROCEDURE DATE: 12/13/2024 INCISION/PROCEDURE START TIME: 9:38 AM INCISION CLOSE/PROCEDURE END TIME: 10:17 AM SURGEON(S)/PROCEDURALIS T(S) AND LAUNCHMAN(S): Surgeons and Role: * Sheldon Slater MD - Primary Physician Systems Support Specialist: Nury Alvarez PA-C SURGERY/PROCEDURE(S): Umbilical hernia repair with mesh ANESTHESIA: General SURGERY/PROCEDURE DETAILS: Patient was brought into the operating room. Placed in the supine position. Under excellent general anesthesia the abdomen was sterilely prepped and draped in usual fashion. Local was injected supraumbilically. Curvilinear incision was made dissection was carried down to the umbilical defect I detached it from the umbilicus sharply with a scalpel and placed it back into its preperitoneal space. A preperitoneal window was then created with use of electrocautery and blunt dissection with a 4 x 4 sponge. I fashioned a 4.6 cm Paratex mesh into this wound. Circumferentially tacked it to the fascia with 0 Nurolon's. It lay completely flat it had excellent hemostasis. The umbilicus was actually still tacked down inferiorly and so the subcu was brought together with 2-0 Vicryl's deep dermals of 3-0 Vicryl's then a running 4-0 Monocryl on the skin. Dermabond was applied [place] cotton was applied sterile dressings were applied and the patient tolerated the procedure well. Nury Alvarez PA-C was my radiology assistant. She assisted with retraction, visualization and performed skin closure. No additional surgeons or qualified residents were available. PRE-OP/PRE-PROCEDURE DIAGNOSIS: Umbilical hernia (3 cm to 10 cm) POST-OP/POST-PROCEDURE DIAGNOSIS: Same as Preop ESTIMATED BLOOD LOSS: < 25 mls SPECIMENS: None IMPLANTABLE DEVICES: Implant Name Type Inv. Item Serial No. Assembler Hydraulic Backhoe Lot No. LRB No. Used Action MESH PARIETEX 4.6CM SMALL COLLAGEN SURGICAL PATCH SELF CENTER RESORBABLE - [id number] Mesh MESH PARIETEX 4.6CM SMALL COLLAGEN SURGICAL PATCH SELF CENTER RESORBABLE [employer] [id number] N/A 1 Implanted DRAINS: None COMPLICATIONS: None CLOSURE TECHNIQUE: Primary PARTICIPATION IN SURGERY/PROCEDURE: I/primary surgeon/proceduralist performed the procedure with assistance. SIGNATURE: Sheldon Slater III, MD PATIENT NAME: Rony Monzon DATE: December 13, 2024 TIME: 10:[address] [facility] Gastroenterology Visit Repor ton 12-02-2024 Gastroenterology Visit Report [facility] [address] [place] [address] OFFICE VISIT Date of Service: 12/02/24 MR#: [id number] Acct: [id number] Name: RONY MONZON Rep #: [id number] : 1940 Provider: LYN dempsey Age/Sex: 84/M Location: [facility] Status: Signed Intake Vital Signs 11/13/24 12:48 11/29/24 07:58 Height 6 ft 1 in 6 ft 1 in Intake Visit Reasons: Hospital FU Chief Complaint: chest pain Allergies hydrocodone (From Vicodin) Allergy (Verified 12/02/24 10:07) Other orphenadrine Allergy (Verified 12/02/24 10:07) Unknown pregabalin Allergy (Verified 12/02/24 10:07) Swelling atorvastatin (From Lipitor) Adverse Reaction (Severe, Verified 12/02/24 10:07) Intolerance,Myalgias Medications ???Medication ???Instructions ???Recorded ???Confirmed ???Type fluoxetine 40 mg capsule (Prozac) 40 mg PO DAILY reflux 07/04/18 History acetaminophen 500 mg tablet 500 mg PO Q6H PRN Pain 06/17/20 History (Tylenol Extra Strength) amlodipine 5 mg tablet 5 mg PO BID blood pressure 2 1 12/02/24 History multivitamin 1 tab PO DAILY vitamin 02/08/22 History clopidogrel 75 mg tablet 75 mg PO DAILY anti platelet 05/0512/02/24 History rosuvastatin 10 mg tablet 10 mg PO QHS cholesterol #90 tabs 11/24/22 12/02/24 Rx oxycodone 5 mg tablet 5 mg PO Q6H PRN pain 04/16/2311/19 History lisinopril 10 mg tablet 10 mg PO BID blood pressure #180 1 06/11/23 12/02/24 Rx TABLETS nitroglycerin 0.4 mg sublingual 0.4 mg sublingual Q5-15M PRN chest 11/29/24 12/02/24 Rx tablet pain #25 tabs propranolol 20 mg tablet 20 mg PO BID blood pressure 12/02/24 History pantoprazole 20 mg tablet,delayed 20 mg PO QDAY #90 tabs 12/02/24 0 12/02/24 Rx release Have you fallen in the past year?: No PFSH Medical History COVID-19 ( 01/18/22) Sepsis due to urinary tract infection History of transesophageal echocardiography (VIOLETTE) Wears hearing aid Wears glasses Depression Anxiety Walker as ambulation aid Arthritis Indwelling urethral catheter present Low iron Easy bruising History of hiatal hernia Former smoker Chest pain History of tilt table evaluation Cardiology follow-up encounter History of echocardiogram History of stress test Enterococcus UTI H/O appendicitis Presence of stent in coronary artery ( 09/08/10) Pure hypercholesterolemia Essential hypertension PTSD (post-traumatic stress disorder) Pulmonary hypertension Restless legs syndrome (RLS) REHAN (obstructive sleep apnea) Syncope and collapse Dizziness and giddiness Fatigue Shortness of breath Dyspnea Precordial chest pain 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 custodial use of drug Atherosclerotic heart disease of [place] coronary artery without angina pectoris 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 Neck pain on left side Benign prostatic hypertrophy Coronary artery disease Surgical History S/P TURP History of colonoscopy H/O heart artery stent History of right hip replacement Presence of coronary angioplasty implant and graft ( 09/08/10) S/P right knee arthroscopy History of appendectomy hx cervical stenosis History of vasectomy History of hydrocelectomy Family History Father CVA (cerebral vascular accident) Mother Cardiomegaly Brother CAD (coronary artery disease) Hx CABG and valve replacement Diabetes Brother History of heart valve replacement Brother Rheumatic fever Sister Hypertension Aortic aneurysm H/O aortic valve replacement Brother Cancer bladder Brother Thyroid disorder Social History household members: spouse housing: house Smoking Status: Former smoker pack-years: 20 Tobacco: How many years used: 22 second hand exposure: No alcohol intake: never substance use type: does not use caffeine: Yes Type: carbonated beverages Number of servings: 1 and tea what type of physical activity do you participate in: none seatbelt use: always do you feel safe at home: Yes HPI HPI Chief Complaint: chest pain Details: RONY MONZON, is a 84 M who presents to the office today for establishment with [facility] regarding intermittent difficulty swallowing. He presents with his for exam. He states that his last EGD was years ago and doesn't remember if an esophageal dilation was performed, but suspects not. He reports white rice as a frequent culprit of trouble swallowing. He does report globus sensation a couple of times a week, cough, and frequent throat clearing. He denies difficulty chewing and pushing his food back with his tongue to initiate the swallow. He denies (more content not included)... Normal [facility] 11-29-2024 DONN Telephone (JOSE ANTONIO) RONY MONZON ([id number]) 1940 M DEF Date Time Provider Department 11/29/24 SINDY DENISE During your visit today, we recorded the following information about you: Sindy Denise APRN.THANG 11/29/2024 10:26 AM Signed Can we request last cardiac OV and testing from [facility]. DOS 12/13/24. Sveta Arana LPN 11/29/2024 1:04 PM Signed Printed last office visit and cardiac testing. Scanned into [facility] through Onbase scanning. JAYJAY Agrawal Jessica, LPN 12/02/2024 10:03 AM Signed Last office visit printed and scanned into [employer] through Onbase scanning. JAYJAY Agrawal Kim E, LPN 12/03/2024 8:30 AM Signed letter has been signed by human resource intern and office visit again scanned into [employer] see scanned documents. Karla Ignacio LPN Allergies As of Date: 11/29/2024 Noted Allergy Reaction LYRICA (PREGABALIN) 08/01/2016 7 - Swelling Comments: B/L hand swelling NEURONTIN (GABAPENTIN) 05/31/2016 7 - Swelling Comments: Feels that he does not have a true allergy to this medication. States he had swelling, not rash. NORFLEX (ORPHENADRINE CITRATE) 04/12/2016 8 - GI Upset Date Reviewed: 11/29/2024 Reviewed by: Sindy Denise APRN.[employer] - Fully Assessed Prescriptions as of 12/03/2024 - amoxicillin (AMOXIL) 500 mg capsule 4 capsules 1 hours prior to dental procedure. - rosuvastatin (CRESTOR) 10 mg tablet Take 1 tablet by mouth daily at bedtime. - propranolol (INDERAL) 20 mg tablet Take 1 tablet by mouth two times a day. - amLODIPine (NORVASC) 5 mg tablet Take 1 tablet by mouth two times a day. - clopidogrel (PLAVIX) 75 mg tablet Take 1 tablet by mouth once daily. - FLUoxetine (PROZAC) 40 mg capsule Take 1 capsule by mouth once daily. - oxyCODONE IR (ROXICODONE) 5 mg immediate release tablet EVERY 6 HOURS NEEDED - lisinopril (PRINIVIL) 10 mg tablet Take 1 tablet by mouth twice daily. Dr. Kramer - nitroglycerin sublingual (NITROSTAT) 0.4 mg SL tablet Dissolve 1 tablet under the tongue every 5 minutes as needed for chest pain. - acetaminophen (TYLENOL EXTRA STRENGTH) 500 mg tablet Take 1 tablet by mouth every 6 hours as needed for pain. - multivitamin tablet Take 1 tablet by mouth once daily. Problem List As Of Date 11/29/2024 Noted Resolved BENIGN HYPERTENSION [I10] 12/14/2005 Hyperlipidemia, mixed [E78.2] 12/14/2005 Depression [F32.A] 12/14/2005 Pain in joint, lower leg [M25.569] 12/14/2005 05/02/2022 ESOPHAGEAL REFLUX [K21.9] 02/01/2006 IMPAIRED FASTING GLUCOSE [R73.01] 02/01/2006 BENIGN NEOPLASM LG BOWEL [D12.6] 03/29/2006 INT HEMORRHOID W/O COMPL [K64.8] 03/29/2006 Hypertrophy of prostate with urinary obstructio*06/17/2008 Pain in joint, pelvic region and thigh [M25.559]09/16/2008 05/02/2022 Spinal stenosis, lumbar [M48.061] 05/19/2010 Disc degeneration, lumbar [M51.369] 06/25/2010 07/05/2016 Gait instability [R26.81] 06/25/2010 Coronary artery disease involving [place]ood*11/23/2010 Anemia [D64.9] 08/20/2013 Nontoxic multinodular goiter [E04.2] 12/12/2013 Gallbladder polyp [K82.4] 06/10/2014 07/05/2016 Cervicalgia [M54.2] 06/18/2014 Lumbar radiculopathy [M54.16] 07/29/2014 Cervical spondylosis [M47.812] 07/29/2014 Cervical strain [S16.1XXA] 07/29/2014 05/02/2022 Left hip pain [M25.552] 10/29/2014 05/02/2022 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] 02/04/2015 Hip pain [M25.559] 02/04/2015 05/02/2022 DDD (degenerative disc disease), lumbar [M51.36*06/08/2015 Spinal stenosis, lumbar region, with neurogenic*05/17/2016 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] 07/20/2017 CKD (chronic kidney disease) Stage 3, GFR 30-59*08/22/2017 04/27/2023 Tremor [R25.1] 07/27/2018 Vasovagal syncope [R55] 07/27/2018 REHAN on CPAP [G47.33] 07/27/2018 Primary osteoarthritis of right hip [M16.11] 07/27/2018 History of total right hip arthroplasty [Z96.64*08/08/2018 Low back pain [M54.50] 02/04/2019 WILY (generalized anxiety disorder) [F41.1] 03/04/2020 Hypertensive kidney disease with stage 3 chroni*05/02/2022 04/27/2023 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 (HCC) [I73.9] 11/03/2022 Type 2 diabetes mellitus without complication, *11/03/2022 06/02/2023 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 [place] [address] OFFICE VISIT Date of Service: 11/29/24 MR#: [id number] Acct: [id number] Name: RONY MONZON Rep #: [id number] : 1940 Provider: LYN velazquez Age/Sex: 84/M Location: [facility] Status: Signed HPI HPI History of Present Illness Details: RONY MONZON, is a 84 year old white male who presents to the office today for a cardiovascular outpatient follow-up visit. He has a history of coronary artery disease status post drug-eluting stent to LCx in August 2010, pre-syncope, hyperlipidemia, hypertension, and mild obstructive sleep apnea. In reviewing chart, pt had a new CVA in December of 2021 and had a 14 day monitor done by neurology at [facility]. He was started on Plavix. From a cardiac standpoint, the patient is doing well. He does use a wheeled walker. He does acknowledge occasional right side back pain that radiates to his right chest. He denies any palpitations, pressure or heaviness. He does acknowledge SOB with lying down. He does not have bleeding issues; no blood in urine, stool, or nosebleeds. He denies any decrease in energy level, myalgias, or 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. He does not have edema, or sudden weight gain. He does acknowledge lightheadedness with positional changes. He denies dizziness, syncopal or near syncopal episodes, and headaches. His surgery is 12/13/2024. He is scheduled to see vasovagal syncope clinic in Jan at [facility]. Intake Vital Signs 11/13/24 12:48 11/29/24 07:58 11/29/24 08:06 Height 6 ft 1 in 6 ft 1 in Weight: 218 lb BMI 28.8 BP 141/74 H 136/72 H Blood Pressure Location Lt brachial Lt brachial Position Sitting Sitting Respiration 16 Pulse 70 70 Pulse Source Monitor Monitor Intake Visit Reasons: FU BEFORE SURGERY Radiagraph Operator Required: No Accompanied by: Is patient in pain?: No Allergies hydrocodone (From Vicodin) Allergy (Verified 11/29/24 08:26) Other orphenadrine Allergy (Verified 11/29/24 08:26) Unknown pregabalin Allergy (Verified 11/29/24 08:26) Swelling atorvastatin (From Lipitor) Adverse Reaction (Severe, Verified 11/29/24 08:26) Intolerance,Myalgias Medications ???Medication ???Instructions ???Recorded ???Confirmed ???Type fluoxetine 40 mg capsule (Prozac) 40 mg PO DAILY reflux 07/04/18 History acetaminophen 500 mg tablet 500 mg PO Q6H PRN Pain 06/17/20 History (Tylenol Extra Strength) amlodipine 5 mg tablet 5 mg PO BID blood pressure 2 1 11/29/24 History multivitamin 1 tab PO DAILY vitamin 02/08/22 History clopidogrel 75 mg tablet 75 mg PO DAILY anti platelet 05/0511/29/24 History rosuvastatin 10 mg tablet 10 mg PO QHS cholesterol #90 tabs 11/24/22 11/29/24 Rx oxycodone 5 mg tablet 5 mg PO Q6H PRN pain 04/16/2311/19 History lisinopril 10 mg tablet 10 mg PO BID blood pressure #180 1 06/11/23 11/29/24 Rx TABLETS nitroglycerin 0.4 mg sublingual 0.4 mg sublingual Q5-15M PRN chest 11/29/24 11/29/24 Rx tablet pain #25 tabs propranolol 20 mg tablet 20 mg PO BID blood pressure 11/29/24 History Have you fallen in the past year?: No PFSH Medical History COVID-19 ( 01/18/22) Sepsis due to urinary tract infection History of transesophageal echocardiography (VIOLETTE) Wears hearing aid Wears glasses Depression Anxiety Walker as ambulation aid Arthritis Indwelling urethral catheter present Low iron Easy bruising History of hiatal hernia Former smoker Chest pain History of tilt table evaluation Cardiology follow-up encounter History of echocardiogram History of stress test Enterococcus UTI H/O appendicitis Presence of stent in coronary artery ( 09/08/10) Pure hypercholesterolemia Essential hypertension PTSD (post-traumatic stress disorder) Pulmonary hypertension Restless legs syndrome (RLS) REHAN (obstructive sleep apnea) Syncope and collapse Dizziness and giddiness Fatigue Shortness of breath Dyspnea Precordial chest pain 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 Atherosclerotic heart disease of [place] coronary artery without angina pectoris 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 Neck pain on left side Benign prostatic hypertrophy Coronary artery disease Surgical History (Reviewed 11/29/24 @ 16:29 by Harika Church LEGAL EXECUTIVE ASSISTANT, LEGAL EXECUTIVE ASSISTANT-C) S/P TURP History of colonoscopy H/O heart artery stent History of right hip replacement Presence of coronary angioplasty implant and graft ( 09/08/10) S/P right knee arthroscopy History of appendectomy hx cervical stenosis History of vasectomy History of hydrocelectomy Family History Father CVA (cerebral vascular accident) Mother Cardiome (more content not included)... Normal [facility] HISTORY PHYSICALon HISTORY PHYSICAL HNO ID: [id number] Author: SINDY DENISE APRN.FORM [employer]TER [employer] Service: ? Author Type: Nurse Practitioner Type: H&P Filed: 12/05/2024 11:09 Note Text: [facility] HISTORY AND PHYSICAL EXAMINATION SERVICE DATE: 11/29/2024 SERVICE TIME: 11:08 AM PRIMARY CARE PHYSICIAN: George Vaughan MD Assessment Patient has the following medical conditions which may affect brooke-operative course: Coronary artery disease involving [place] coronary artery of [place] heart without angina pectoris Assessment: s/p stent 2010, c/w daily ASA, statin, and BB. Following [facility], reports normal stress earlier this year, records requested, last OV below: Scan on 12/02/2024 9:57 AM by ProviderKellie PANiraliC: Consultation - Cardiology Received cardiac optimization and AC instructions below: Scan on 12/02/2024 9:57 AM by ProviderKellie PA-C: Consultation - Cardiology BENIGN HYPERTENSION Assessment: controlled on rx Last 14 BP Last 14 Encounter BP Readings: Date: BP: 11/29/2024 138/72 11/19/2024 136/64 08/21/2024 151/85 07/23/2024 128/64 05/16/2024 148/72 04/30/2024 146/81 01/26/2024 136/78 12/30/2023 119/74 10/18/2023 143/83 08/11/2023 123/71 06/02/2023 120/64 05/16/2023 146/82 04/27/2023 142/80 03/01/2023 130/58 Hyperlipidemia, mixed Assessment: c/w statin REHAN on CPAP Assessment: non-compliant with CPAP ESOPHAGEAL REFLUX Assessment: otc rx as needed Hypertrophy of prostate with urinary obstruction Assessment: s/p TURP Nontoxic multinodular goiter Assessment: reports intermittent dysphagia, 2021 thyroid nodule seen on CTA neck 2.4cm Anemia Assessment: hx Hemoglobin (g/dL) Date Value 08/23/2024 12.7 04/23/2021 11.7 Hematocrit (%) Date Value 08/23/2024 38.4 04/23/2021 35.6 WBC (k/uL) Date Value 08/23/2024 8.98 04/23/2021 8.08 IMPAIRED FASTING GLUCOSE Assessment: diet controlled Hemoglobin A1C (%) Date Value 08/23/2024 5.7 10/21/2019 5.8 Cervical spondylosis Assessment: limited CROM Depression Assessment: stable on rx per pt History of total right hip arthroplasty Assessment: hx Orthostatic hypotension Assessment: PCP and cardiology working on adjusting meds, had f/u cardiology appt today, records requested SOB (shortness of breath) on exertion Assessment: chronic, unchanged per and pt, recent stress test earlier this normal, records requested History of CVA in adulthood Assessment: no residual deficits per and pt, although pt has significant gait abnormality/LE weakness ambulating, following neurology Office Visit on 08/21/2024 ANESTHESIA FINDINGS: Intubation History: No history of difficult intubation Significant Anesthesia Considerations: none Airway History: No history of difficult airway Soto Activity Status Index: METS: Walk indoors, such as around the house (1.75 METs) Do light work around the house, such as dusting or washing dishes (2.70 METs) Take care of self; that is eating, dressing, bathing, using the toilet (2.75 METs) DASI Score: 7.2 (With Rollator) Patient denies any chest pain or undue shortness of breath with the above physical activity. Clinical Frailty Scale: 4. Apparently vulnerable STOP-Bang Score: Snores loudly Has or is being treated for high blood pressure Male patient Denies feeling tired, fatigued, or sleepy during the daytime Has not been observed to stop breathing or choking/gasping during sleep BMI less than or equal to 35 kg/m2 Patient 50 years old or younger Does not have a large neck STOP-Bang Score: 3 [id number] Score: Age: >=75 Sex: male CHF history: No Hypertension history: Yes Stroke/TIA/thromboembol ism history: Yes Vascular disease history: Yes Diabetes history: No [id number] Score: 6 I - PHYSICAL EVALUATION AIRWAY Patient intubated: No. Tracheostomy tube not present Mallampati: III. TM distance: >3 FB. Neck ROM: limited flexion and extension. Mouth opening: adequate. Short neck: no. Thick neck: no Resendiz present: no Lip Bite Test: I Microretrognathia/Micro nagthia/Recessed Chin: No DENTAL Dental findings: teeth intact. II - ANESTHESIA PLAN Anesthetic Plan: other Beta Anderson Monitoring Plan Post Procedure Analgesic Plan Prepared for Surgery: optimally prepared for surgery. CONSULTS: Patient does not require consults for optimization at this time Planned Anesthetic: other anesthesia choice The Following Tests/Procedures Have Been Initiated: No orders of the defined types were placed in this encounter. REASON FOR VISIT: Rony Monzon is a 84 year old male who is scheduled for Procedure(s): HERNIORRHAPHY UMBILICAL REDUCIBLE 3cm-10cm (N/A) at the request of Dr. Sheldon Slater for consultation. My final recommendation will be communicated back to the requesting physician by way of shared medical record or letter. Subjective The patient (more content not included)... Normal [facility] 11-21-2024 [facility] Telephone (PREANME) RONY MONZON ([id number]) 1940 M DEF Date Time Provider Department 11/21/24 ARGENIS JAIN During your visit today, we recorded the following information about you: Argenis Jain RN 11/21/2024 10:[address] Strange and Jessy BAIRD, Your patient, oRny Monzon is scheduled for HERNIORRHAPHY UMBILICAL REDUCIBLE under general anesthesia by Dr. Lc Slater on 12/13/2024. Currently he is only on Plavix for history of stroke-2021. Also he has CAD-stent (LCX) 08/2010. Please advise if Rony can hold Plavix 5 days prior to surgery per anesthesia guidelines? Also, should he take baby ASA while holding his Plavix ? Thank you Bisi Lindsey RN, LPN 11/27/2024 9:[address] Strange - Do you agree with Halima Harvey recommendations below? Do I have not seen this patient and am only covering for Jessy until she returns on 12/03. What I would typically recommend is that the patient is aware and understanding of risks of stopping Plavix (increased stroke risk). If he is able to take ASA 81mg in place of Plavix during procedure that would be recommended. He should restart Plavix as soon as approved by physician performing the procedure. Will also forward to Dr. Strange as he has seen patient in the past as well in case there are any alternative recommendations from his end. Landon Strange Jr., MD 11/27/2024 2:23 PM Signed Patient on Plavix and statin due to history of stroke. Neuro deficits from stroke have been stable and patient had no new focal neuro deficits at time of last visit in 2023. However, surgery or other intervention was not discussed with patient at that time. Patient needs to understand that given his history of stroke, that stopping Plavix, would increase the risk of stroke while off the medication. What that specific risk is cannot be determined. Risks vs benefits needs to also be discussed with those performing procedure/surgery. If he can continue ASA while off Plavix, would recommend doing so. Also would restart Plavix CRISTI post procedure/surgery. Landon Strange MD Allergies As of Date: 11/21/2024 Noted Allergy Reaction LYRICA (PREGABALIN) 08/01/2016 7 - Swelling Comments: B/L hand swelling NEURONTIN (GABAPENTIN) 05/31/2016 7 - Swelling Comments: Feels that he does not have a true allergy to this medication. States he had swelling, not rash. NORFLEX (ORPHENADRINE CITRATE) 04/12/2016 8 - GI Upset Date Reviewed: 11/19/2024 Reviewed by: Natalia Peña RN - Fully Assessed Reason for Visit: Preparations For Surgery [898] Cmt: Preoperative Plavix instructions Prescriptions as of 11/27/2024 - amoxicillin (AMOXIL) 500 mg capsule 4 capsules 1 hours prior to dental procedure. - rosuvastatin (CRESTOR) 10 mg tablet Take 1 tablet by mouth daily at bedtime. - propranolol (INDERAL) 20 mg tablet Take 1 tablet by mouth two times a day. - amLODIPine (NORVASC) 5 mg tablet Take 1 tablet by mouth two times a day. - clopidogrel (PLAVIX) 75 mg tablet Take 1 tablet by mouth once daily. - FLUoxetine (PROZAC) 40 mg capsule Take 1 capsule by mouth once daily. - oxyCODONE IR (ROXICODONE) 5 mg immediate release tablet EVERY 6 HOURS NEEDED - lisinopril (PRINIVIL) 10 mg tablet Take 1 tablet by mouth twice daily. Dr. Kramer - nitroglycerin sublingual (NITROSTAT) 0.4 mg SL tablet Dissolve 1 tablet under the tongue every 5 minutes as needed for chest pain. - acetaminophen (TYLENOL EXTRA STRENGTH) 500 mg tablet Take 1 tablet by mouth every 6 hours as needed for pain. - multivitamin tablet Take 1 tablet by mouth once daily. Problem List As Of Date 11/21/2024 Noted Resolved BENIGN HYPERTENSION [I10] 12/14/2005 Hyperlipidemia, mixed [E78.2] 12/14/2005 Depression [F32.A] 12/14/2005 Pain in joint, lower leg [M25.569] 12/14/2005 05/02/2022 ESOPHAGEAL REFLUX [K21.9] 02/01/2006 IMPAIRED FASTING GLUCOSE [R73.01] 02/01/2006 BENIGN NEOPLASM LG BOWEL [D12.6] 03/29/2006 INT HEMORRHOID W/O COMPL [K64.8] 03/29/2006 Hypertrophy of prostate with urinary obstructio*06/17/2008 Pain in joint, pelvic region and thigh [M25.559]09/16/2008 05/02/2022 Spinal stenosis, lumbar [M48.061] 05/19/2010 Disc degeneration, lumbar [M51.369] 06/25/2010 07/05/2016 Gait instability [R26.81] 06/25/2010 Coronary artery disease involving [place]mood*11/23/2010 Anemia [D64.9] 08/20/2013 Nontoxic multinodular goiter [E04.2] 12/12/2013 Gallbladder polyp [K82.4] 06/10/2014 07/05/2016 Cervicalgia [M54.2] 06/18/2014 Lumbar radiculopathy [M54.16] 07/29/2014 Cervical spondylosis [M47.812] 07/29/2014 Cervical strain [S16.1XXA] 07/29/2014 05/02/2022 Left hip pain [M25.552] 10/29/2014 05/02/2022 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] 02/04/2015 Hip pain [M25.559] 02/04/2015 05/02/2022 DDD (degenerative disc disease), lumbar [M51.36*01 (more content not included)... [facility] 11-20-2024 [facility] Telephone (PREANME) RONY MONZON ([id number]) 1940 M DEF Date Time Provider Department 11/20/24 ARGENIS JAIN During your visit today, we recorded the following information about you: Argenis Jain RN 11/21/2024 10:58 AM Addendum Sent a letter to human resource intern, Dr. Yevgeniy Arguello for preoperative Plavix instructions. No reply Argenis Jain RN November 20, 2024 10:23 AM Per patient's , her has not seen a human resource intern since 2022- (His human resource intern left practice). Advised to call and re-establish with the [facility]. Argenis Jain RN November 21, 2024 10:13 AM Allergies As of Date: 11/20/2024 Noted Allergy Reaction LYRICA (PREGABALIN) 08/01/2016 7 - Swelling Comments: B/L hand swelling NEURONTIN (GABAPENTIN) 05/31/2016 7 - Swelling Comments: Feels that he does not have a true allergy to this medication. States he had swelling, not rash. NORFLEX (ORPHENADRINE CITRATE) 04/12/2016 8 - GI Upset Date Reviewed: 11/19/2024 Reviewed by: Natalia Peña RN - Fully Assessed Reason for Visit: Preparations For Surgery [898] Cmt: Preoperative Plavix instructions Prescriptions as of 11/21/2024 - amoxicillin (AMOXIL) 500 mg capsule 4 capsules 1 hours prior to dental procedure. - rosuvastatin (CRESTOR) 10 mg tablet Take 1 tablet by mouth daily at bedtime. - propranolol (INDERAL) 20 mg tablet Take 1 tablet by mouth two times a day. - amLODIPine (NORVASC) 5 mg tablet Take 1 tablet by mouth two times a day. - clopidogrel (PLAVIX) 75 mg tablet Take 1 tablet by mouth once daily. - FLUoxetine (PROZAC) 40 mg capsule Take 1 capsule by mouth once daily. - oxyCODONE IR (ROXICODONE) 5 mg immediate release tablet EVERY 6 HOURS NEEDED - lisinopril (PRINIVIL) 10 mg tablet Take 1 tablet by mouth twice daily. Dr. Kramer - nitroglycerin sublingual (NITROSTAT) 0.4 mg SL tablet Dissolve 1 tablet under the tongue every 5 minutes as needed for chest pain. - acetaminophen (TYLENOL EXTRA STRENGTH) 500 mg tablet Take 1 tablet by mouth every 6 hours as needed for pain. - multivitamin tablet Take 1 tablet by mouth once daily. Problem List As Of Date 11/20/2024 Noted Resolved BENIGN HYPERTENSION [I10] 12/14/2005 Hyperlipidemia, mixed [E78.2] 12/14/2005 Depression [F32.A] 12/14/2005 Pain in joint, lower leg [M25.569] 12/14/2005 05/02/2022 ESOPHAGEAL REFLUX [K21.9] 02/01/2006 IMPAIRED FASTING GLUCOSE [R73.01] 02/01/2006 BENIGN NEOPLASM LG BOWEL [D12.6] 03/29/2006 INT HEMORRHOID W/O COMPL [K64.8] 03/29/2006 Hypertrophy of prostate with urinary obstructio*06/17/2008 Pain in joint, pelvic region and thigh [M25.559]09/16/2008 05/02/2022 Spinal stenosis, lumbar [M48.061] 05/19/2010 Disc degeneration, lumbar [M51.369] 06/25/2010 07/05/2016 Gait instability [R26.81] 06/25/2010 Coronary artery disease involving [place]mood*11/23/2010 Anemia [D64.9] 08/20/2013 Nontoxic multinodular goiter [E04.2] 12/12/2013 Gallbladder polyp [K82.4] 06/10/2014 07/05/2016 Cervicalgia [M54.2] 06/18/2014 Lumbar radiculopathy [M54.16] 07/29/2014 Cervical spondylosis [M47.812] 07/29/2014 Cervical strain [S16.1XXA] 07/29/2014 05/02/2022 Left hip pain [M25.552] 10/29/2014 05/02/2022 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] 02/04/2015 Hip pain [M25.559] 02/04/2015 05/02/2022 DDD (degenerative disc disease), lumbar [M51.36*06/08/2015 Spinal stenosis, lumbar region, with neurogenic*05/17/2016 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] 07/20/2017 CKD (chronic kidney disease) Stage 3, GFR 30-59*08/22/2017 04/27/2023 Tremor [R25.1] 07/27/2018 Vasovagal syncope [R55] 07/27/2018 REHAN on CPAP [G47.33] 07/27/2018 Primary osteoarthritis of right hip [M16.11] 07/27/2018 History of total right hip arthroplasty [Z96.64*08/08/2018 Low back pain [M54.50] 02/04/2019 WILY (generalized anxiety disorder) [F41.1] 03/04/2020 Hypertensive kidney disease with stage 3 chroni*05/02/2022 04/27/2023 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 (HCC) [I73.9] 11/03/2022 Type 2 diabetes mellitus without complication, *11/03/2022 06/02/2023 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] 11/03/2022 Encounter Status:Closed by CHIDI JAIN on 11/20/24 [facility] 11-19-2024 [facility] Office Visit (GENSWS ) NARONY SARABIA ([id number]) 1940 M [facility] Date Time Provider Department 11/19/24 10:15 AM SHELDON SLATER During your visit today, we recorded the following information about you: Temperature Pulse Respiration Blood pressure 97.1 degrees 81/minute 19/minute 136/64 Weight Height 98.3 kg 1.854 m Sheldon Slater MD 11/19/2024 10:48 AM Signed HISTORY AND PHYSICAL Rony Mendes Na 1940 REFERRING PHYSICIAN: George Vaughan MD CHIEF COMPLAINT: Abdominal Mass ([facility] ED f/u - umbilical hernia) HPI: Rony is a 84 year old male with a complaint of a bulge and discomfort in his umbilical region. The patient notes discomfort in this area with lifting. The symptoms have increased, over the past few weeks. The patient notes no symptoms of bowel obstruction and denies nausea or vomiting. The patient was seen by the emergency room physician who felt the patient has a hernia. Rony was referred for evaluation and treatment. The patient is being seen by me today at the request of Dr. George Vaughan MD for my opinion and advice regarding Umbilical hernia without obstruction and without gangrene (primary encounter diagnosis). PAST MEDICAL HISTORY Diagnosis Date Adjustment disorder with depressed mood Anemia Benign neoplasm of colon Constipation Coronary artery disease Diabetes (HCC) Essential hypertension, benign Gallbladder polyp needs repeat ultrasound in 06/06 H/O hiatal hernia Impaired fasting glucose Internal hemorrhoids without mention of complication Other and unspecified hyperlipidemia Personal history of colonic polyps Umbilical hernia PAST SURGICAL HISTORY Procedure Laterality Date APPENDECTOMY ARTHRP ACETBLR/PROX FEM PROSTC AGRFT/ALGRFT Right 08/08/2018 Dr. Charly Suh CARDIAC CATH N/A 02/02/2015 Completed at [facility] COLONOSCOPY FLX DX W/COLLJ SPEC WHEN PFRMD 07/11/12 Colonoscopy COLONOSCOPY FLX DX W/COLLJ SPEC WHEN PFRMD 02/24/2017 Colonoscopy COLONOSCOPY W/BIOPSY SINGLE/MULTIPLE 03/29/06 ESOPHAGOGASTRODUODENOSC OPY TRANSORAL DIAGNOSTIC 02/24/2017 EGD [facility] W/O FACETEC FORAMOT/DSC 05/[address] Cole PAST SURGICAL HISTORY OF Right 2007 knee surgery RPR [place] VAGINALIS HYDROCELE BOTTLE TYPE STENT PLACEMENT 08/2010 [facility] VASECTOMY UNI/BI SPX W/POSTOP SEMEN EXAMS Current Outpatient Medications Medication Sig rosuvastatin (CRESTOR) 10 mg tablet Take 1 tablet by mouth daily at bedtime. propranolol (INDERAL) 20 mg tablet Take 1 tablet by mouth two times a day. amLODIPine (NORVASC) 5 mg tablet Take 1 tablet by mouth two times a day. clopidogrel (PLAVIX) 75 mg tablet Take 1 tablet by mouth once daily. FLUoxetine (PROZAC) 40 mg capsule Take 1 capsule by mouth once daily. amoxicillin (AMOXIL) 500 mg capsule 4 capsules 1 hours prior to dental procedure. oxyCODONE IR (ROXICODONE) 5 mg immediate release tablet EVERY 6 HOURS NEEDED lisinopril (PRINIVIL) 10 mg tablet Take 1 tablet by mouth twice daily. Dr. Kramer nitroglycerin sublingual (NITROSTAT) 0.4 mg SL tablet Dissolve 1 tablet under the tongue every 5 minutes as needed for chest pain. acetaminophen (TYLENOL EXTRA STRENGTH) 500 mg tablet Take 1 tablet by mouth every 6 hours as needed for pain. multivitamin tablet Take 1 tablet by mouth once daily. No current facility-administered medications for this visit. ALLERGIES: Lyrica [Pregabalin], Neurontin [Gabapentin], and Norflex [Orphenadrine Citrate] PERSONAL HISTORY: Social History Tobacco Use Smoking status: Former Current packs/day: 0.00 Types: Cigarettes, Pipe Start date: 1962 Quit date: 1981 Years since quittin.5 Passive exposure: Past Smokeless tobacco: Former Quit date: 05/22/1981 Tobacco comments: Quit in 1981 Vaping Use Vaping status: Never Used Substance Use Topics Alcohol use: No Drug use: No FAMILY HISTORY: FAMILY HISTORY Problem Relation Age of Onset Heart Brother valvular heart disease Heart Brother valvular heart disease Heart Brother valvular heart diease Hypertension Sister COPD Father Stroke Father Heart Mother REVIEW OF SYMPTOMS: The review of systems data was entered by the nurse and reviewed by me There are no exam notes on file for this visit. PHYSICAL EXAMINATION: General: The patient is 84 year old male, well nourished, well hydrated in no acute distress. The patient is oriented to time, place, and person. VITALS: Blood pressure 136/64, pulse 81, temperature 36.2 ?C (97.1 ?F), resp. rate 19, height 185.4 cm (6' 1), weight 98.3 kg (216 lb 12.8 oz), SpO2 97%. Body mass index is 28.6 kg/m?. HEENT: Normal cephalic, ataumatic, pupils are equally round, sclera are anicteric, mucous membranes are moist, oropharynx is clear. Neck has no masses, asymmetry or lymphadenopathy. Thyroid is unre (more content not included)... Normal [facility] Abdomen/Pelvis W IV Cont ONL Yon 11-13-2024 Abdomen/Pelvis W IV Cont ONLY [facility] Imaging Services [address] [place] [address] Abdomen/Pelvis W IV Cont ONLY MR#: [id number] Acct: [id number] Name: RONY MONZON Rep #: [id number] : 1940 M 84 From: Esperanza Barrios nd, MD PCP: Dr. George Vaughan MD Status: REG ER Study: Abdomen/Pelvis W IV Cont ONLY Date of Exam: Exam# [id number] Ordering Dr: Petr Perry DO PROCEDURE: ABDOMEN/PELVIS W IV CONT ONLY 11/13/2024 REASON FOR EXAM: EPIGASTRIC FOREIGN BODY SENSATION TECHNIQUE: ABDOMEN/PELVIS W IV CONT ONLY Coronal and Sagittal reconstruction series were provided. CONTRAST: Isovue 370 VOLUME: 100 mL One or more dose reduction techniques were used (e.g., Automated exposure control, adjustment of the mA and/or kV according to patient size, use of iterative reconstruction technique. RADIATION DOSE SUMMARY: DLP: 1200 mGycm COMPARISON: CT abdomen pelvis 03/13/2020. FINDINGS: Lung bases: Bibasilar atelectasis. Coronary artery calcifications. Mixed plaque of the visualized thoracic aorta. Liver: The liver is normal in size with scattered hypodensities, likely cysts. The major portal veins are patent. No biliary ductal dilation. Gallbladder: Punctate layering stones within the gallbladder. No gallbladder wall thickening or pericholecystic fluid. Spleen: Normal in size. Pancreas: Mildly atrophic. Adrenals: No adrenal mass. Kidneys: Bilateral renal cysts and additional hypodensities. No hydronephrosis or nephrolithiasis. Bladder: Distended and unremarkable. Reproductive Organs: PriorTURP. Bowel: The bowel loops are nondilated. No ascites or pneumoperitoneum. No inflammatory mass in the expected region of the appendix. Lymph nodes: No suspicious lymph node enlargement. Vasculature: Severe mixed plaque of the aortoiliac vessels. Bones: Prior total right hip arthroplasty. Thoracolumbar spondylosis with chronic height loss of the visualized vertebral bodies. Prior L3-[address]/Abdomen/Pelvis W IV Cont ONLY IMPRESSION: No acute abdominopelvic finding. Reading Location: [id number] CC: Dr. Petr Perry DO; Dr. George Vaughan MD Research Soil Scientist: Signed Normal [facility] Absolute lymphocyte countOrd ered By: Petr Perry on 11-13-2024 Lymphocytes Auto (Unsp spec) [#/Vol] 1.27 10*3/uL 0.83-4.51 [facility] Absolute neutrophil countOrd ered By: Petr Perry on 11-13-2024 Neutrophils (Bld) [#/Vol] 6.7 10*3/uL 2.0-7.7 [facility] Anion gap in Serum or Plasma Ordered By: Petr Perry on 11-13-2024 Anion gap [Moles/Vol] 11 mmol/L 5- [facility] Automated lymphocyte count a s percentage of total leukocytesOrdered By: Pter Perry on 11-13-2024 Lymphocytes/100 WBC Auto (Unsp spec) 13.8 % Low 19-41 [facility] BUN/creatinine ratioOrdered By: Petrtia Perry on 11-13-2024 Urea nitrogen/Creatinine [Mass ratio] 12.9 mg/mg 10-20 [facility] Basophil percentageOrdered B y: Petr Perry on 11-13-2024 Basophils/100 WBC (Bld) 0.9 % 0-1 [facility] Bilirubin, totalOrdered By: Petrtia Perry on 11-13-2024 Bilirubin [Mass/Vol] 0.37 mg/dL 0.00-1.30 [facility] CBC W/Diff, Automatedon 10-21 Absolute Lymph 1.27 X10 3/uL Normal 0.83-4.51 [facility] Comment on above: Performed By: #### L 100.0100, L500.4050, L501.2450 #### [facility] [address] [place], [address] Absolute Neut 6.7 X10 3/uL Normal 2.0-7.7 [facility] Comment on above: Performed By: #### L 100.0100, L500.4050, L501.2450 #### [facility] [address] [place], [address] Basophils/100 WBC (Bld) 0.9 % Normal 0-1 [facility] Comment on above: Performed By: #### L 100.0100, L500.4050, L501.2450 #### [facility] [address] [place], [address] Eosinophils/100 WBC (Bld) 2.4 % Normal 0-5 [facility] Comment on above: Performed By: #### L 100.0100, L500.4050, L501.2450 #### [facility] [address] [place], [address] Erythrocyte distribution width (RBC) [Ratio] 13.4 % Normal 11.6-14.6 [facility] Comment on above: Performed By: #### L 100.0100, L500.4050, L501.2450 #### [facility] [address] [place], [address] Hematocrit (Bld) [Volume fraction] 35.2 % Low 40-54 [facility] Comment on above: Performed By: #### L 100.0100, L500.4050, L501.2450 #### [facility] [address] [place], [address] Hemoglobin (Bld) [Mass/Vol] 11.7 g/dL Low 13.0-16.5 [facility] Comment on above: Performed By: #### L 100.0100, L500.4050, L501.2450 #### [facility] [address] [place], [address] IG% 0.800 Normal 0.0-0.9 [facility] Comment on above: Result Comment: IG% - Immature Granulocytes (promyelocytes, myelocytes and metamyelocytes) > 1% indicates that a LEFT SHIFT is Present. Performed By: #### L 100.0100, L500.4050, L501.2450 #### [facility] [address] [place], [address] Lymphocytes/100 WBC (Bld) 13.8 % Low 19-41 [facility] Comment on above: Performed By: #### L 100.0100, L500.4050, L501.2450 #### [facility] [address] [place], [address] MCH (RBC) [Entitic mass] 31.3 pg Normal 27.0-32.0 [facility] Comment on above: Performed By: #### L 100.0100, L500.4050, L501.2450 #### [facility] [address] [place], [address] MCHC (RBC) [Mass/Vol] 33.2 g/dL Normal 32-36 [facility] Comment on above: Performed By: #### L 100.0100, L500.4050, L501.2450 #### [facility] [address] [place], [address] MCV (RBC) [Entitic vol] 94.1 fL High 80-94 [facility] Comment on above: Performed By: #### L 100.0100, L500.4050, L501.2450 #### [facility] [address] [place], [address] Monocytes/100 WBC (Bld) 10.1 % High 0-10 [facility] Comment on above: Performed By: #### L 100.0100, L500.4050, L501.2450 #### [facility] [address] [place], [address] Neutrophils/100 WBC (Bld) 72.0 % High 47-70 [facility] Comment on above: Performed By: #### L 100.0100, L500.4050, L501.2450 #### [facility] [address] [place], [address] Nucleated RBC (Bld) [#/Vol] 0 10*3/uL Normal 0-5 [facility] Comment on above: Performed By: #### L 100.0100, L500.4050, L501.2450 #### [facility] [address] [place], [address] Platelet mean volume (Bld) [Entitic vol] 10.2 fL Normal 6.2-12.0 [facility] Comment on above: Performed By: #### L 100.0100, L500.4050, L501.2450 #### [facility] [address] [place], [address] Platelets (Bld) [#/Vol] 381 10*3/uL Normal 150-450 [facility] Comment on above: Performed By: #### L 100.0100, L500.4050, L501.2450 #### [facility] [address] [place], [address] RBC (Bld) [#/Vol] 3.74 10*6/uL Low 4.6-6.2 [facility] Comment on above: Performed By: #### L 100.0100, L500.4050, L501.2450 #### [facility] [address] [place], [address] RDW SD 46.6 fl High 35.1-43.9 [facility] Comment on above: Performed By: #### L 100.0100, L500.4050, L501.2450 #### [facility] [address] [place], [address] WBC (Bld) [#/Vol] 9.2 10*3/uL Normal 4.4-11.0 [facility] Comment on above: Performed By: #### L 100.0100, L500.4050, L501.2450 #### [facility] [address] [place], [address] Carbon dioxide, total [Moles /volume] in Central venous bloodOrdered By: Petr Perry on 11-13-2024 CO2 [Moles/Vol] 25.1 mmol/L 21.0-32.0 [facility] Chest PA and Lateralon 11-13 Chest PA and Lateral [facility] Services [address] [place] [address] Chest PA and Lateral MR#: [id number] Acct: [id number] Name: RONY MONZON Rep #: [id number] : 1940 M 84 From: Jack Miranda PCP: Dr. George Vaughan MD Status: REG ER Study: Chest PA and Lateral Date of Exam: 11/13/24 Exam# [id number] Ordering Dr: Petr Perry DO PROCEDURE: CHEST PA AND LATERAL 11/13/2024 REASON FOR EXAM: CHEST PAIN TECHNIQUE: CHEST PA AND LATERAL COMPARISON: 07/28/2024 FINDINGS: Bibasilar subsegmental atelectasis. Mild pulmonary vascular congestion. No focal consolidation. No pleural effusion or pneumothorax. Cardiac silhouette is unchanged. No acute fractures. RAD/Chest PA and Lateral IMPRESSION: Mild pulmonary vascular congestion. No focal consolidation. Stable mild cardiomegaly. Reading Location: [facility] CC: Dr. Petr Perry DO; Dr. George Vaughan MD Research Soil Scientist: Signed Normal [facility] Chloride assayOrdered By: Mukesh Perry on 11-13-2024 Chloride [Moles/Vol] 100 mmol/L 98-108 [facility] Comprehensive Metabolic Prof ilon 11-13-2024 Albumin [Mass/Vol] 3.7 g/dL Normal 3.4-4.8 [facility] Comment on above: Performed By: #### L 100.0100, L500.4050, L501.2450 #### [facility] [address] [place], [address] Albumin/Globulin [Mass ratio] 1.2 {ratio} Normal 0.9-2.4 [facility] Comment on above: Performed By: #### L 100.0100, L500.4050, L501.2450 #### [facility] [address] [place], [address] ALK PHOS 105 U/L Normal 40-129 [facility] Comment on above: Performed By: #### L 100.0100, L500.4050, L501.2450 #### [facility] [address] [place], [address] ALT [Catalytic activity/Vol] 23 U/L Normal <=46 [facility] Comment on above: Performed By: #### L 100.0100, L500.4050, L501.2450 #### [facility] [address] [place], [address] AST [Catalytic activity/Vol] 26 U/L Normal <=37 [facility] Comment on above: Performed By: #### L 100.0100, L500.4050, L501.2450 #### [facility] [address] [place], [address] Bilirubin [Mass/Vol] 0.37 mg/dL Normal 0.00-1.30 [facility] Comment on above: Performed By: #### L 100.0100, L500.4050, L501.2450 #### [facility] [address] [place], [address] BUN/CRE 12.9 RATIO Normal 10-20 [facility] Comment on above: Performed By: #### L 100.0100, L500.4050, L501.2450 #### [facility] [address] [place], [address] Calcium [Mass/Vol] 9.2 mg/dL Normal 7.6-11.0 [facility] Comment on above: Performed By: #### L 100.0100, L500.4050, L501.2450 #### [facility] [address] [place], [address] Chloride [Moles/Vol] 100 mmol/L Normal 98-108 [facility] Comment on above: Performed By: #### L 100.0100, L500.4050, L501.2450 #### [facility] [address] [place], [address] CO2 [Moles/Vol] 25.1 mmol/L Normal 21.0-32.0 [facility] Comment on above: Performed By: #### L 100.0100, L500.4050, L501.2450 #### [facility] [address] [place], [address] Creatinine [Mass/Vol] 1.00 mg/dL Normal 0.70-1.20 [facility] Comment on above: Performed By: #### L 100.0100, L500.4050, L501.2450 #### [facility] [address] [place], [address] ECRCL 69.78 ml/min Normal 50-250 [facility] Comment on above: Performed By: #### L 100.0100, L500.4050, L501.2450 #### [facility] [address] [place], [address] GAP 11 Normal 5-15 [facility] Comment on above: Performed By: #### L 100.0100, L500.4050, L501.2450 #### [facility] [address] [place], [address] GFR/1.73 sq M.predicted among non-blacks MDRD (S/P/Bld) [Vol rate/Area] 75 mL/min/{1.73_m2} Normal >60 [facility] Comment on above: Result Comment: mL/m in/1.73m2 CKD-EPI Creatinine Equation (2020) Performed By: #### L 100.0100, L500.4050, L501.2450 #### [facility] [address] [place], [address] Globulin (S) [Mass/Vol] 3.2 g/dL Normal 2.2-4.2 [facility] Comment on above: Performed By: #### L 100.0100, L500.4050, L501.2450 #### [facility] [address] [place], [address] Glucose [Mass/Vol] 94 mg/dL Normal 70-99 [facility] Comment on above: Performed By: #### L 100.0100, L500.4050, L501.2450 #### [facility] [address] [place], [address] Potassium [Moles/Vol] 4.4 mmol/L Normal 3.3-5.1 [facility] Comment on above: Performed By: #### L 100.0100, L500.4050, L501.2450 #### [facility] [address] [place], [address] Sodium [Moles/Vol] 135 mmol/L Normal 133-145 [facility] Comment on above: Performed By: #### L 100.0100, L500.4050, L501.2450 #### [facility] [address] [place], [address] T PROT 6.9 g/dL Normal 5.9-8.4 [facility] Comment on above: Performed By: #### L 100.0100, L500.4050, L501.2450 #### [facility] [address] [place], [address] Urea nitrogen [Mass/Vol] 13 mg/dL Normal 4-19 [facility] Comment on above: Performed By: #### L 100.0100, L500.4050, L501.2450 #### [facility] [address] [place], [address] Emergency Department Summary on 11-13-2024 Emergency Department Summary [facility] Medical Records Department [address] [place] [address] Emergency Department Summary 11/13/24 MR#: [id number] Acct: [id number] Name: RONY MONZON Rep #: [id number] : 1940 84 From: Petr Perry DO PCP: Dr. George Vaughan MD Status:DEP ER Location: ED HPI History of Present Illness Chief Complaint: Foreign Body Narrative Narrative: Chief complaint and HPI: Abdominal fullness. 84-year-old male with past medical history of CAD, DM2, HTN, HLD presents for evaluation of abdominal fullness. Patient states that he frequently suffers from constipation. He states intermittently he develops abdominal fullness when he eats. States that he feels like something becomes stuck in his stomach/bowels. Patient states prior to arrival he was eating a chicken Chipotle bowl when he developed the abdominal fullness. He states that he feels like something is stuck in his stomach/bowels. He denies any feeling of something being stuck in his esophagus. States that he has not ate or drink anything since this feeling. Triage note states that the patient feels short of breath, lightheaded, and is unable to swallow water. He denies this to me. States that he has not tried to swallow anything since he developed the feeling. He has a known umbilical hernia. No history of an EGD. States he had a colonoscopy years ago which states was unremarkable. He denies any fever, chills, URI symptoms, chest pain, shortness of breath, diarrhea, dysuria. Review of systems: See HPI Medications: As listed on the chart Allergies: As listed on the chart PFSH: Per chart Vital signs: As listed on the chart. Reviewed. Physical exam: Gen: A O x3, NAD Head: Normocephalic, atraumatic Eyes: No sclera icterus, conjunctiva clear ENT: Moist mucous membranes, posterior oropharynx unremarkable, uvula midline, tonsils not enlarged, no foreign body visualized Neck: Trachea midline, No JVD, Full ROM CV: RRR, no murmurs, no peripheral edema Resp: Lungs CTA BL, no w/r/c GI: Abd soft, non-distended, patient has a small umbilical hernia-tender to palpation although states that this has been tender for years-reducible but reoccurrs, no r/r/g Musc: Full ROM, no deformity Skin: Warm, dry, no rash Neuro: Alert, oriented, grossly intact, sensation intact Psych: Cooperative, appropriate mood and affect [facility] Medical History COVID-19 ( 01/18/22) Sepsis due to urinary tract infection History of transesophageal echocardiography (VIOLETTE) Wears hearing aid Wears glasses Depression Anxiety Walker as ambulation aid Arthritis Indwelling urethral catheter present Low iron Easy bruising History of hiatal hernia Former smoker Chest pain History of tilt table evaluation Cardiology follow-up encounter History of echocardiogram History of stress test Enterococcus UTI H/O appendicitis Presence of stent in coronary artery ( 09/08/10) Pure hypercholesterolemia Essential hypertension PTSD (post-traumatic stress disorder) Pulmonary hypertension Restless legs syndrome (RLS) REHAN (obstructive sleep apnea) Syncope and collapse Dizziness and giddiness Fatigue Shortness of breath Dyspnea Precordial chest pain 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 Atherosclerotic heart disease of [place] coronary artery without angina pectoris 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 Neck pain on left side Benign prostatic hypertrophy Coronary artery disease Home Medications ???Medication ???Instructions ???Recorded ???Last Taken ???Type fluoxetine 40 mg capsule (Prozac) 40 mg PO DAILY reflux 07/04/18 History acetaminophen 500 mg tablet 500 mg PO Q6H PRN Pain 06/17/20 History (Tylenol Extra Strength) amlodipine 5 mg tablet 5 mg PO BID blood pressure 1 07/14/21 History multivitamin 1 tab PO DAILY vitamin 02/08/22 Un known History clopidogrel 75 mg tablet 75 mg PO DAILY anti platelet 05/05 Unknown History nitroglycerin 0.4 mg sublingual 0.4 mg sublingual Q5-15M PRN chest 05/26/22 Unknown Rx tablet pain #25 tabs rosuvastatin 10 mg tablet 10 mg PO QHS cholesterol #90 tabs 11/24/22 Unknown Rx oxycodone 5 mg tablet 5 mg PO Q6H PRN pain 04/16/23 Unkn own History propranolol 20 mg tablet 30 mg PO BID blood pressure Unknown History lisinopril 10 mg tablet 10 mg PO BID blood pressure #180 1 06/11/23 Unknown Rx TABLETS Allergy/AdvReac Type Severity Reaction Status Date / Time hydrocodone (From Vicodin) Allergy Other Verified 07/28/24 10:20 orphenadrine Allergy Unknown Verified 07/28/24 10:20 pregabalin Allergy Swelling Verified 07/28/24 10:20 atorvastatin (From Lipitor) AdvReac Severe Intolerance Verified 07/28/24 10:20 ,Myalgias Family History (Review (more content not included)... Normal [facility] Eosinophil percentageOrdered By: Petr Perry on 11-13-2024 Eosinophils/100 WBC (Bld) 2.4 % 0-5 [facility] Erythrocyte distribution wid th ratioOrdered By: Petr Perry on 11-13-2024 Erythrocyte distribution width (RBC) [Ratio] 13.4 % 11.6-14.6 [facility] Erythrocyte distribution wid th standard deviationOrdered By: Petr Severino on 11-13-2024 Erythrocyte distribution width (RBC) [Ratio] 46.6 fl High 35.1-43.9 [facility] Glomerular filtration rate ( GFR) estimation/1.73 sq m using serum, plasma, or whole bOrdered By: Petr Perry on 11-13-2024 GFR/1.73 sq M.predicted among non-blacks MDRD (S/P/Bld) [Vol rate/Area] 75 mL/min/{1.73_m2} >60 [facility] Comment on above: mL/min/1.73m2 CKD-EP I Creatinine Equation (2020) Hematocrit Auto (Bld) [Volum e fraction]Ordered By: Petr Perry on 11-13-2024 Hematocrit (Bld) [Volume fraction] 35.2 % Low 40-54 [facility] Hemoglobin measurementOrdere d By: Petr Perry on 11-13-2024 Hemoglobin (Bld) [Mass/Vol] 11.7 g/dL Low 13.0-16.5 [facility] Immature granulocytes/100 WB C Auto (Bld)Ordered By: Petr Perry on 11-13-2024 Immature granulocytes/100 WBC (Bld) 0.800 % 0.0-0.9 [facility] Comment on above: IG% - Immature Granu locytes (promyelocytes, myelocytes and metamyelocytes) > 1% indicates that a LEFT SHIFT is Present. L499.0042on 11-13-2024 Trop T High Sen 19 ng/L Normal <=22 [facility] Comment on above: Performed By: #### L 501.4021 #### [facility] [address] [place], [place], [id number] L501.4021on 11-13-2024 Trop T High Sen 22 ng/L Normal <=22 [facility] Comment on above: Performed By: #### L 501.4021 #### [facility] [address] [place], [place], [id number] Laboratory - Chemistry and C hemistry - challengeOrdered By: Petr LeeMaycol on 11-13-2024 AST [Catalytic activity/Vol] 26 U/L <38 [facility] Lipaseon 11-13-2024 Lipase [Catalytic activity/Vol] 28 U/L Normal 13-75 [facility] Comment on above: Result Comment: Gayla ordoñez note: LIPASE revised reference range effective 22. New Lipase methodology. Expected to produce lower values than the previous assay method. NEW Reference Range: 13 - 75 U/L Performed By: #### L 100.0100, L500.4050, L501.2450 #### [facility] [address] [place], [place], [id number] Lipase measurementOrdered By : Petrtia LeeMaycol on 11-13-2024 Lipase [Catalytic activity/Vol] 28 U/L 13-75 [facility] Comment on above: Please note:LIPASE r evised reference range effective 22. New Lipase methodology. Expected to produce lower values than the previous assay method. NEW Reference Range: 13 - 75 U/L MCV (mean corpuscular volume ) determinationOrdered By: Petr Perry on 11-13-2024 MCV (RBC) [Entitic vol] 94.1 fL High 80-94 [facility] Mean corpuscular hemoglobin (MCH) determinationOrdered By: Petr Perry on 11-13-2024 MCH (RBC) [Entitic mass] 31.3 pg 27.0-32.0 [facility] Mean corpuscular hemoglobin concentration (MCHC) determinationOrdered By: Petr Perry on 11-13-2024 MCHC (RBC) [Mass/Vol] 33.2 g/dL 32-36 [facility] Mean platelet volume determi nationOrdered By: Petr Perry on 11-13-2024 Platelet mean volume (Bld) [Entitic vol] 10.2 fL 6.2-12.0 [facility] Monocyte percentageOrdered B y: Petr Perry on 11-13-2024 Monocytes/100 WBC (Bld) 10.1 % High 0-10 [facility] Neutrophil percentageOrdered By: Petr Perry on 11-13-2024 Neutrophils/100 WBC (Bld) 72.0 % High 47-70 [facility] Nucleated red blood cell per centageOrdered By: Petr Perry on 11-13-2024 Nucleated RBC/100 WBC (Bld) [Ratio] 0 % 0-5 [facility] Platelet countOrdered By: Mukesh iel Orlando on 11-13-2024 Platelets (Bld) [#/Vol] 381 10*3/uL 150-450 [facility] Potassium measurement (mass/ volume)Ordered By: Petr Perry on 11-13-2024 Potassium (Unsp spec) [Mass/Vol] 4.4 mmol/L 3.3-5.1 [facility] RBC Auto (Bld) [#/Vol]Ordere d By: Petr Perry on 11-13-2024 RBC (Bld) [#/Vol] 3.74 10*6/uL Low 4.6-6.2 [facility] Serum creatinine measurement (mass/volume)Ordered By: Petr Perry on 11-13-2024 Creatinine [Mass/Vol] 1.00 mg/dL 0.70-1.20 [facility] Serum globulin measurementOr dered By: Petr Perry on 11-13-2024 Globulin (S) [Mass/Vol] 3.2 g/dL 2.2-4.2 [facility] Serum glucose measurement (m ass/volume)Ordered By: Petr Perry on 11-13-2024 Glucose [Mass/Vol] 94 mg/dL 70-99 [facility] Serum or plasma alanine stephens otransferase (ALT) measurementOrdered By: Petr Perry on 11-13-2024 ALT [Catalytic activity/Vol] 23 U/L <47 [facility] Serum or plasma albumin obdulia urement (mass/volume)Ordered By: Petr Severino on 11-13-2024 Albumin [Mass/Vol] 3.7 g/dL 3.4-4.8 [facility] Serum or plasma albumin/glob ulin mass ratioOrdered By: Petr Perry on 11-13-2024 Albumin/Globulin [Mass ratio] 1.2 {ratio} 0.9-2.4 [facility] Serum or plasma alkaline claudio sphatase measurementOrdered By: Petr Perry on 11-13-2024 ALP [Catalytic activity/Vol] 105 U/L 40-129 [facility] Serum or plasma calcium obdulia urement (mass/volume)Ordered By: Petr Severino on 11-13-2024 Calcium [Mass/Vol] 9.2 mg/dL 7.6-11.0 [facility] Serum or plasma urea nitroge n measurement (mass/volume)Ordered By: Petr Perry on 11-13-2024 Urea nitrogen [Mass/Vol] 13 mg/dL 4-19 [facility] Sodium levelOrdered By: Armando rubina Orlando on 11-13-2024 Sodium [Moles/Vol] 135 mmol/L 133-145 [facility] Total proteinOrdered By: Jaswant weber Orlando on 11-13-2024 Protein [Mass/Vol] 6.9 g/dL 5.9-8.4 [facility] Troponin T.cardiac [Mass/vol ume] in Serum or Plasma by High sensitivity methodOrdered By: Petr Perry on 11-13-2024 Troponin T.cardiac High sensitivity method [Mass/Vol] 19 ng/L <22 [facility] Troponin T.cardiac High sensitivity method [Mass/Vol] 22 ng/L <22 [facility] White blood cell (WBC) count Ordered By: Petrtia Perry on 11-13-2024 WBC (Bld) [#/Vol] 9.2 10*3/uL 4.4-11.0 [facility]ONY [facility] ([id number]) 1940 [facility] Date Time Provider Department 09/27/24 LANDON STRANGE JR During your visit today, we recorded the following information about you: Landon Strange Jr., MD 09/27/2024 4:10 PM Signed Procedure clearance requested by [facility], [facility]. Note that I have only seen patient once - please see note from 01/26/24 - and for multiple symptoms/conditions. For symptoms of falls and lightheadedness, he was referred to cardiology for opinion. Regarding request to hold Plavix in relation to history of stroke: To the extent it is necessary for patient to have the upcoming procedure... the risk of procedure rests on the proceduralist and determination of necessity of procedure, the timing of any adjustment in medications, holding of antiplatelet or other medications for the procedure given the patients history of TIA and stroke and then resuming these medications after the procedure. Generally patients with TIA/stroke history have moderate risk of cerebrovascular complications which is better understood with invasive surgical procedures. 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 Note that the above risks -- holding Plavix for procedure -- were not directly discussed with the patient or patient's guardian at the time of his last visit on 01/26/24. MD Roderick Morrow Gillian, OCCA 10/03/2024 4:52 PM Signed Note below and form for surgical clearance faxed back to [facility]. VINCENT Landeros Allergies As of Date: 09/27/2024 Noted Allergy Reaction LYRICA (PREGABALIN) 08/01/2016 7 - Swelling Comments: B/L hand swelling NORFLEX (ORPHENADRINE CITRATE) 04/12/2016 8 - GI Upset VICODIN (HYDROCODONE-ACETAMINOP HE*12/04/2006 Comments: nightmares NEURONTIN (GABAPENTIN) 05/31/2016 7 - Swelling Comments: Feels that he does not have a true allergy to this medication. States he had swelling, not rash. Date Reviewed: 08/21/2024 Reviewed by: Jessy Weldon PA-C - Fully Assessed Prescriptions as of 10/03/2024 - rosuvastatin (CRESTOR) 10 mg tablet Take 1 tablet by mouth daily at bedtime. - propranolol (INDERAL) 20 mg tablet Take 1 tablet by mouth two times a day. - amLODIPine (NORVASC) 5 mg tablet Take 1 tablet by mouth two times a day. - clopidogrel (PLAVIX) 75 mg tablet Take 1 tablet by mouth once daily. - FLUoxetine (PROZAC) 40 mg capsule Take 1 capsule by mouth once daily. - amoxicillin (AMOXIL) 500 mg capsule 4 capsules 1 hours prior to dental procedure. - oxyCODONE IR (ROXICODONE) 5 mg immediate release tablet EVERY 6 HOURS NEEDED - lisinopril (PRINIVIL) 10 mg tablet Take 1 tablet by mouth twice daily. Dr. Kramer - nitroglycerin sublingual (NITROSTAT) 0.4 mg SL tablet Dissolve 1 tablet under the tongue every 5 minutes as needed for chest pain. - acetaminophen (TYLENOL EXTRA STRENGTH) 500 mg tablet Take 1 tablet by mouth every 6 hours as needed for pain. - multivitamin tablet Take 1 tablet by mouth once daily. Meds Comments as of 11/02/2021: Problem List As Of Date 09/27/2024 Noted Resolved BENIGN HYPERTENSION [I10] 12/14/2005 Hyperlipidemia, mixed [E78.2] 12/14/2005 Depression [F32.A] 12/14/2005 Pain in joint, lower leg [M25.569] 12/14/2005 05/02/2022 ESOPHAGEAL REFLUX [K21.9] 02/01/2006 IMPAIRED FASTING GLUCOSE [R73.01] 02/01/2006 BENIGN NEOPLASM LG BOWEL [D12.6] 03/29/2006 INT HEMORRHOID W/O COMPL [K64.8] 03/29/2006 Hypertrophy of prostate with urinary obstructio*06/17/2008 Pain in joint, pelvic region and thigh [M25.559]09/16/2008 05/02/2022 Spinal stenosis, lumbar [M48.061] 05/19/2010 Disc degeneration, lumbar [M51.369] 06/25/2010 07/05/2016 Gait instability [R26.81] 06/25/2010 Coronary artery disease involving [place]ood*11/23/2010 Anemia [D64.9] 08/20/2013 Nontoxic multinodular goiter [E04.2] 12/12/2013 Gallbladder polyp [K82.4] 06/10/2014 07/05/2016 Cervicalgia [M54.2] 06/18/2014 Lumbar radiculopathy [M54.16] 07/29/2014 Cervical spondylosis [M47.812] 07/29/2014 Cervical strain [S16.1XXA] 07/29/2014 05/02/2022 Left hip pain [M25.552] 10/29/2014 05/02/2022 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 Normal [facility](OH)D3 [facility] 25-hydroxyvitamin D3 [Mass/Vol] 20.4 ng/mL Low 31.0-80.0 [facility] Comment on above: Order Comment: Speci men Type: BLOOD SPECIMEN Ordering Facility: [facility] Address: [address] [place] [address] Performed By: #### 1 989-3 #### [facility] CLIA [id number] [address] [place], [place] [address] [place] [address] [place] CBC panel Auto (Bld)on 08-23 Erythrocyte distribution width (RBC) [Ratio] 13.0 % Normal 11.5-15.0 [facility] Comment on above: Order Comment: Speci men Type: BLOOD SPECIMENOrdering Facility: [facility] Address: [address] [place] [address] Performed By: #### 5 8410-2 ####[facility] [id number] [facility] [place] [address] [place] Hematocrit (Bld) [Volume fraction] 38.4 % Low 39.0-51.0 [facility] Comment on above: Order Comment: Speci men Type: BLOOD SPECIMENOrdering Facility: [facility] Address: [address] [place] [address] Performed By: #### 5 8410-2 ####[facility] [id number] [place] [address] [place] Hemoglobin (Bld) [Mass/Vol] 12.7 g/dL Low 13.0-17.0 [facility] Comment on above: Order Comment: Speci men Type: BLOOD SPECIMENOrdering Facility: [facility] Address: [address] [place] [address] Performed By: #### 5 8410-2 ####[facility] [id number] [place] [address] [place] MCH (RBC) [Entitic mass] 31.6 pg Normal 26.0-34.0 [facility] Comment on above: Order Comment: Speci men Type: BLOOD SPECIMENOrdering Facility: [facility] Address: [address] [place] [address] Performed By: #### 5 8410-2 ####[facility] [id number] [address] [place] MCHC (RBC) [Mass/Vol] 33.1 g/dL Normal 30.5-36.0 [facility] Comment on above: Order Comment: Speci men Type: BLOOD SPECIMENOrdering Facility: [facility] Address: [address] [place] [address] Performed By: #### 5 8410-2 ####[facility] [id number] [place] [address] [place] MCV (RBC) [Entitic vol] 95.5 fL Normal 80.0-100.0 [facility] Comment on above: Order Comment: Speci men Type: BLOOD SPECIMENOrdering Facility: [facility] Address: [address] [place] [address] Performed By: #### 5 8410-2 ####[facility] [id number] [place] [address] [place] Nucleated RBC (Bld) [#/Vol] 10*3/uL Normal <0.01 [facility] Comment on above: Order Comment: Speci men Type: BLOOD SPECIMENOrdering Facility: [facility] Address: [address] [place] [address] Performed By: #### 5 8410-2 ####[facility] [id number] [address] [address] [place] Platelet mean volume (Bld) [Entitic vol] 10.8 fL Normal 9.0-12.7 [facility] Comment on above: Order Comment: Speci men Type: BLOOD SPECIMENOrdering Facility: [facility] Address: [address] [place] [address] Performed By: #### 5 8410-2 ####[facility] [id number] [place] [address] [place] Platelets (Bld) [#/Vol] 334 10*3/uL Normal 150-400 [facility] Comment on above: Order Comment: Speci men Type: BLOOD SPECIMENOrdering Facility: [facility] Address: [address] [place] [address] Performed By: #### 5 8410-2 ####[facility]IA [id number] [place] [address] [place] RBC (Bld) [#/Vol] 4.02 10*6/uL Low 4.20-6.00 [facility] Comment on above: Order Comment: Speci men Type: BLOOD SPECIMENOrdering Facility: [facility] Address: [address] [place] [address] Performed By: #### 5 8410-2 ####[facility] [id number] [place] [address] [place] WBC (Bld) [#/Vol] 8.98 10*3/uL Normal 3.70-11.00 [facility] Comment on above: Order Comment: Speci men Type: BLOOD SPECIMENOrdering Facility: [facility] Address: [address] [place] [address] Performed By: #### 5 8410-2 ####[facility] SHERIE [id number] R[place] [id number] [place] [address] [place] Josh 08-23-2024 CNPN Telephone ([facility]) RONY MONZON ([id number]) 1940 M DEF Date Time Provider Department 08/23/24 JESSY WELDON [facility] During your visit today, we recorded the following information about you: Jessy Weldon PA-C 08/23/2024 10:54 AM Signed Received recommendation from cardiology, they recommended taking both doses of amlodipine at nighttime, but do not recommend florinef at this time. Encouraged increasing water intake. Additionally, spoke with Dr. Strange who suggested referral to the autonomic clinic if patient amenable as they specialize in this type of blood pressure regulation. Referral sent in patient interested. Sveta Gomes LPN 08/23/2024 1:38 PM Signed TC to who voiced understanding. Is agreeable to being seen in the autonomic clinic, please assist in scheduling. JAYJAY Marie Stephanie 08/24/2024 10:09 AM Signed Spoke with patient's and scheduled. Charlene Portillo Allergies As of Date: 08/23/2024 Noted Allergy Reaction LYRICA (PREGABALIN) 08/01/2016 7 - Swelling Comments: B/L hand swelling NORFLEX (ORPHENADRINE CITRATE) 04/12/2016 8 - GI Upset VICODIN (HYDROCODONE-ACETAMINOP HE*12/04/2006 Comments: nightmares NEURONTIN (GABAPENTIN) 05/31/2016 7 - Swelling Comments: Feels that he does not have a true allergy to this medication. States he had swelling, not rash. Date Reviewed: 08/21/2024 Reviewed by: Jessy Weldon PA-C - Fully Assessed Reason for Visit: Patient Question [9995] Primary Visit Diagnosis:Orthostatic hypotension [I95.1] Order(s):CONSULT TO NEUROLOGY [90] Order #: [id number]: 1 FUTURE Prescriptions as of 08/24/2024 - rosuvastatin (CRESTOR) 10 mg tablet Take 1 tablet by mouth daily at bedtime. - propranolol (INDERAL) 20 mg tablet Take 1 tablet by mouth two times a day. - amLODIPine (NORVASC) 5 mg tablet Take 1 tablet by mouth two times a day. - clopidogrel (PLAVIX) 75 mg tablet Take 1 tablet by mouth once daily. - FLUoxetine (PROZAC) 40 mg capsule Take 1 capsule by mouth once daily. - amoxicillin (AMOXIL) 500 mg capsule 4 capsules 1 hours prior to dental procedure. - oxyCODONE IR (ROXICODONE) 5 mg immediate release tablet EVERY 6 HOURS NEEDED - lisinopril (PRINIVIL) 10 mg tablet Take 1 tablet by mouth twice daily. Dr. Kramer - nitroglycerin sublingual (NITROSTAT) 0.4 mg SL tablet Dissolve 1 tablet under the tongue every 5 minutes as needed for chest pain. - acetaminophen (TYLENOL EXTRA STRENGTH) 500 mg tablet Take 1 tablet by mouth every 6 hours as needed for pain. - multivitamin tablet Take 1 tablet by mouth once daily. Meds Comments as of 11/02/2021: Problem List As Of Date 08/23/2024 Noted Resolved BENIGN HYPERTENSION [I10] 12/14/2005 Hyperlipidemia, mixed [E78.2] 12/14/2005 Depression [F32.A] 12/14/2005 Pain in joint, lower leg [M25.569] 12/14/2005 05/02/2022 ESOPHAGEAL REFLUX [K21.9] 02/01/2006 IMPAIRED FASTING GLUCOSE [R73.01] 02/01/2006 BENIGN NEOPLASM LG BOWEL [D12.6] 03/29/2006 INT HEMORRHOID W/O COMPL [K64.8] 03/29/2006 Hypertrophy of prostate with urinary obstructio*06/17/2008 Pain in joint, pelvic region and thigh [M25.559]09/16/2008 05/02/2022 Spinal stenosis, lumbar [M48.061] 05/19/2010 Disc degeneration, lumbar [M51.369] 06/25/2010 07/05/2016 Gait instability [R26.81] 06/25/2010 Coronary artery disease involving [place]ood*11/23/2010 Anemia [D64.9] 08/20/2013 Nontoxic multinodular goiter [E04.2] 12/12/2013 Gallbladder polyp [K82.4] 06/10/2014 07/05/2016 Cervicalgia [M54.2] 06/18/2014 Lumbar radiculopathy [M54.16] 07/29/2014 Cervical spondylosis [M47.812] 07/29/2014 Cervical strain [S16.1XXA] 07/29/2014 05/02/2022 Left hip pain [M25.552] 10/29/2014 05/02/2022 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] 02/04/2015 Hip pain [M25.559] 02/04/2015 05/02/2022 DDD (degenerative disc disease), lumbar [M51.36*06/08/2015 Spinal stenosis, lumbar region, with neurogenic*05/17/2016 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] 07/20/2017 CKD (chronic kidney disease) Stage 3, GFR 30-59*08/22/2017 04/27/2023 Tremor [R25.1] 07/27/2018 Vasovagal syncope [R55] 07/27/2018 REHAN on CPAP [G47.33] 07/27/2018 Primary osteoarthritis of right hip [M16.11] 07/27/2018 History of total right hip arthroplasty [Z96.64*08/08/2018 Low back pain [M54.50] 02/04/2019 WILY (generalized anxiety disorder) [F41.1] 03/04/2020 Hypertensive kidney disease with stage 3 chroni*05/02/2022 04/27/2023 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 (HCC) [I73.9] 11/03/2022 Type 2 diabetes mellitus without complication, *11/03/2022 06/02/2023 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] 11/03/2022 Encounter Status:Closed by JESSY WELDON on 08/23/24 Normal [facility] Comprehensive metabolic 2000 panelon 08-23-2024 Albumin [Mass/Vol] 3.8 g/dL Low 3.9-4.9 [facility] Comment on above: Order Comment: Speci men Type: BLOOD SPECIMEN Ordering Facility: [facility] Address: [address] [place] [address] Performed By: #### 5 5454-3 #### [facility] CLIA [id number] [address] [place] [address] [place] ALP [Catalytic activity/Vol] 108 U/L Normal 38-113 [facility] Comment on above: Order Comment: Speci men Type: BLOOD SPECIMEN Ordering Facility: [facility] Address: [address] [place] [address] Performed By: #### 5 5454-3 #### [facility] CLIA [id number] [address] [place] [address] [place] ALT [Catalytic activity/Vol] 22 U/L Normal 10-54 [facility] Comment on above: Order Comment: Speci men Type: BLOOD SPECIMEN Ordering Facility: [facility] Address: [address] [place] [address] Performed By: #### 5 5454-3 #### [facility] CLIA [id number] [address] [place] [address] [place] Anion gap [Moles/Vol] 9 mmol/L Normal 8-15 [facility] Comment on above: Order Comment: Speci men Type: BLOOD SPECIMEN Ordering Facility: [facility] Address: [address] [place] [address] Performed By: #### 5 5454-3 #### [facility] CLIA [id number] [address] [place] [address] [place] AST [Catalytic activity/Vol] 25 U/L Normal 14-40 [facility] Comment on above: Order Comment: Speci men Type: BLOOD SPECIMEN Ordering Facility: [facility] Address: [address] [place] [address] Performed By: #### 5 5454-3 #### [facility] CLIA [id number] [address] [place] [address] [place] Bilirubin [Mass/Vol] 0.5 mg/dL Normal 0.2-1.3 [facility] Comment on above: Order Comment: Speci men Type: BLOOD SPECIMEN Ordering Facility: [facility] Address: [address] [place] [address] Performed By: #### 5 5454-3 #### [facility] CLIA [id number] [address] [place] [address] [place] Calcium [Mass/Vol] 9.7 mg/dL Normal 8.5-10.2 [facility] Comment on above: Order Comment: Speci men Type: BLOOD SPECIMEN Ordering Facility: [facility] Address: [address] [place] [address] Performed By: #### 5 5454-3 #### [facility] CLIA [id number] [address] [place] [address] [place] Chloride [Moles/Vol] 103 mmol/L Normal 98-107 [facility] Comment on above: Order Comment: Speci men Type: BLOOD SPECIMEN Ordering Facility: [facility] Address: [address] [place] [address] Performed By: #### 5 5454-3 #### [facility] CLIA [id number] [address] [place] [address] [place] CO2 [Moles/Vol] 26 mmol/L Normal 22-30 [facility] Comment on above: Order Comment: Speci men Type: BLOOD SPECIMEN Ordering Facility: [facility] Address: [address] [place] [address] Performed By: #### 5 5454-3 #### [facility] CLIA [id number] [address] [place], [place] [address] [place] [facility] Creatinine [Mass/Vol] 1.12 mg/dL Normal 0.73-1.22 [facility] Comment on above: Order Comment: Huseyin miranda Type: BLOOD SPECIMEN Ordering Facility: [facility] Address: [address] [place] [address] Performed By: #### 5 5454-3 #### [facility] CLIA [id number] [address] [place] [address] [place] Creatinine and Glomerular filtration rate.predicted panel (S/P/Bld) 65 mL/min/1.73m??? Normal >=60 [facility] Comment on above: Order Comment: Huseyin miranda Type: BLOOD SPECIMEN Ordering Facility: [facility] Address: [address] [place] [address] Result Comment: Sarah mated Glomerular Filtration Rate (eGFR) is calculated using the 2020 CKD-EPI creatinine equation. This equation utilizes serum creatinine, sex, and age as parameters. The creatinine assay has traceable calibration to isotope dilution-mass spectrometry. Refer to KDIGO guidelines for clinical interpretation. In patients with unstable renal function, e.g. those with acute kidney injury, the eGFR may not accurately reflect actual GFR. Performed By: #### 5 5454-3 #### [facility] CLIA [id number] [address] [place] [address] [place] Glucose [Mass/Vol] 114 mg/dL High 74-99 [facility] Comment on above: Order Comment: Huseyin miranda Type: BLOOD SPECIMEN Ordering Facility: [facility] Address: [address] [place] [address] Result Comment: The [place] Diabetes [employer] (ADA) provides guidance for cutoff values for fasting glucose and random glucose. The ADA defines fasting as no caloric intake for at least 8 hours. Fasting plasma glucose results between 100 to 125 mg/dL indicate increased risk for diabetes (prediabetes). Fasting plasma glucose results greater than or equal to 126 mg/dL meet the criteria for diagnosis of diabetes. In the absence of unequivocal hyperglycemia, results should be confirmed by repeat testing. In a patient with classic symptoms of hyperglycemia or hyperglycemic crisis, random plasma glucose results greater than or equal to 200 mg/dL meet the criteria for diagnosis of diabetes. Reference: Standards of Medical Care in Diabetes 2016, [place] [employer]. Diabetes Care. 2016.39(Suppl 1). Performed By: #### 5 5454-3 #### [facility] CLIA [id number] [address] [place] [address] [place] Potassium [Moles/Vol] 4.7 mmol/L Normal 3.7-5.1 [facility] Comment on above: Order Comment: Speci men Type: BLOOD SPECIMEN Ordering Facility: [facility] Address: [address] [place] [address] Performed By: #### 5 5454-3 #### [facility] CLIA [id number] [address] [place] [address] [place] Protein [Mass/Vol] 6.8 g/dL Normal 6.3-8.0 [facility] Comment on above: Order Comment: Speci men Type: BLOOD SPECIMEN Ordering Facility: [facility] Address: [address] [place] [address] Performed By: #### 5 5454-3 #### [facility] CLIA [id number] [address] [place] [address] [place] Sodium [Moles/Vol] 138 mmol/L Normal 136-144 [facility] Comment on above: Order Comment: Speci men Type: BLOOD SPECIMEN Ordering Facility: [facility] Address: [address] [place] [address] Performed By: #### 5 5454-3 #### [facility] CLIA [id number] [address] [place] [address] [place] Urea nitrogen [Mass/Vol] 15 mg/dL Normal 9-24 [facility] Comment on above: Order Comment: Speci men Type: BLOOD SPECIMEN Ordering Facility: [facility] Address: [address] [place] [address] Performed By: #### 5 5454-3 #### [facility] CLIA [id number] [address] [place] [address] OF [place] HbA1c (Bld)on 08-23-2024 Average glucose Estimated from glycated hemoglobin (Bld) [Mass/Vol] 117 mg/dL Normal [facility] Comment on above: Order Comment: Huseyin miranda Type: BLOOD SPECIMEN Ordering Facility: [facility] Address: [address] [place] [address] Result Comment: eAG: (Estimated average glucose) is a calculated value from HgbA1c and is sales utility representative of the average blood glucose level in the last 2-3 month period. Performed By: #### 5 5454-3 #### [facility] [place] [id number] [address] [place] [address] STATES OF [facility] HbA1c (Bld) [Mass fraction] 5.7 % High 4.3-5.6 [facility] Comment on above: Order Comment: Huseyin miranda Type: BLOOD SPECIMEN Ordering Facility: [facility] Address: [address] [place] [address] Result Comment: Amer ican Diabetes Association guidelines indicate that patients with HgbA1c in the range 5.7-6.4% are at increased risk for development of diabetes, and intervention by lifestyle modification may be beneficial. HgbA1c greater or equal to 6.5% is considered diagnostic of diabetes. Performed By: #### 5 5454-3 #### [facility] CLIA [id number] [address] [place] [address] [place] Lipid 1996 panelon 5 Cholesterol [Mass/Vol] 170 mg/dL Normal <200 [facility] Comment on above: Order Comment: Huseyin miranda Type: BLOOD SPECIMEN Ordering Facility: [facility] Address: [address] [place] [address] Result Comment: <200 mg/dL, Desirable 200-239 mg/dL, Borderline high >239 mg/dL, High Performed By: #### 5 5454-3 #### [facility] [place] [id number] [address] Cholesterol in HDL [Mass/Vol] 45 mg/dL Normal >39 [facility] Comment on above: Order Comment: Huseyin miranda Type: BLOOD SPECIMEN Ordering Facility: [facility] Address: [address] [place] [address] Result Comment: 40-5 9 mg/dL, Acceptable >59 mg/dL, High: Negative risk factor for coronary heart disease <40 mg/dL, Low: Positive risk factor for coronary heart disease Performed By: #### 5 5454-3 #### [facility] CLIA [id number] [address] [place] [address] OF [facility] Cholesterol in LDL [Mass/Vol] 96 mg/dL Normal <100 [facility] Comment on above: Order Comment: Huseyin miranda Type: BLOOD SPECIMEN Ordering Facility: [facility] Address: [address] [place] [address] Result Comment: <100 mg/dL, Optimal 100-129 mg/dL, Near optimal/above optimal 130-159 mg/dL, Borderline high 160-189 mg/dL, High >189 mg/dL, Very high Secondary prevention optimal LDL Cholesterol levels are recommended to be < 70 mg/dL Performed By: #### 5 5454-3 #### [facility] CLIA [id number] [address] [place] [address] Cholesterol in LDL/Cholesterol in HDL [Mass ratio] 2.13 {ratio} Normal <2.54 [facility] Comment on above: Order Comment: Huseyin miranda Type: BLOOD SPECIMEN Ordering Facility: [facility] Address: [address] [place] [address] Result Comment: Refe rence: 1. National Cholesterol Education Program ATP III Guideline At-A-Glance Quick Desk Reference: National Heart, Lung, and Blood [place]. National Institutes of Health. 2001: NIH Publication No. 01-3305. 2. An International Atherosclerosis Society position paper: global recommendations for the management of dyslipidemia: executive summary, Atherosclerosis. 2014: 232(2):410-413. Performed By: #### 5 5454-3 #### [facility] CLIA [id number] [address] [id number] [place] Cholesterol in VLDL [Mass/Vol] 29 mg/dL Normal <30 [facility] Comment on above: Order Comment: Speci men Type: BLOOD SPECIMEN Ordering Facility: [facility] Address: [address] [place] [address] Performed By: #### 5 5454-3 #### [facility] CLIA [id number] [address] [place] [address] [place] Cholesterol non HDL [Mass/Vol] 125 mg/dL Normal <130 [facility] Comment on above: Order Comment: Speci men Type: BLOOD SPECIMEN Ordering Facility: [facility] Address: [address] [place] [address] Result Comment: <130 mg/dL, Optimal 130-159 mg/dL, Near optimal/above optimal 160-189 mg/dL, Borderline high 190-219 mg/dL, High >219 mg/dL, Very high Secondary prevention optimal non HDL Cholesterol levels are recommended to be <100 mg/dL Performed By: #### 5 5454-3 #### [facility] CLIA [id number] [address] [place] [address] [place] Cholesterol.total/Cristina sterol in HDL [Mass ratio] 3.78 {ratio} Normal <5.10 [facility] Comment on above: Order Comment: Speci men Type: BLOOD SPECIMEN Ordering Facility: [facility] Address: [address] [place] [address] Performed By: #### 5 5454-3 #### [facility] CLIA [id number] [address] [place], [place] [id number] [place] FASTING TIME 12 hrs Normal [facility] Comment on above: Order Comment: Speci men Type: BLOOD SPECIMEN Ordering Facility: [facility] Address: [address] [place] [address] Performed By: #### 5 5454-3 #### [facility] CLIA [id number] [address] [place] [address] STATES OF [place] Triglyceride [Mass/Vol] 143 mg/dL Normal <150 [facility] Comment on above: Order Comment: Speci men Type: BLOOD SPECIMEN Ordering Facility: [facility] Address: [address] [place] [address] Result Comment: <150 mg/dL, Normal 150-199 mg/dL, Borderline high 200-499 mg/dL, High >499 mg/dL, Very high Performed By: #### 5 5454-3 #### [facility] CLIA [id number] [address] [place] [address] STATES OF [place] CNOVon 08-21-2024 CNOV Office Visit (RUBEN ) RONY MONZON ([id number]) 1940 M DEF Date Time Provider Department 08/21/24 12:30 PM JESSY WELDON During your visit today, we recorded the following information about you: Pulse Blood pressure Weight 62/minute 151/85 100.3 kg Jessy Weldon PA-C 08/21/2024 1:18 PM Signed [facility] Name: Ronyeunice Monzon Age: [age] year old Gender: male Primary Care Provider: George Vaughan MD Assessment/Plan: 08/21/2024 - General Neurology, Jessy Weldon PA-C ASSESSMENT ASSESSMENT/PLAN: 1. Malaise and fatigue - ICD9: 780.79, ICD10: R53.81, R53.83 (primary diagnosis) 2. Lightheaded - ICD9: 780.4, ICD10: R42 3. Recurrent falls - ICD9: V15.88, ICD10: R29.6 4. Orthostatic hypotension - ICD9: 458.0, ICD10: I95.1 Since last appointment, no significant change with lightheadedness and dizziness. Did reach out to Dr. Arguello's office for changes in blood pressure medications and instructed patient to decrease his amlodipine to 5 mg once daily from twice daily. Patient notes he tried this but it caused him to be too hypertensive so he had to go back to twice daily. 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 Drinking about 40 to 50 ounces of water a day, did try compression socks with no improvement. Is not very physically active but notes he just recently started physical therapy for his back and balance. No falls, syncope since last appointment. Notes he can stand about 10 minutes before he becomes extremely symptomatic and has to sit back down. As he was unable to tolerate medication change per the recommendations of Dr. Arguello, will reach out to his office again about possibly starting Florinef or other suggestions. Encouraged conservative therapy in the meantime. 5. Weakness of both lower extremities - ICD9: 729.89, ICD10: R29.898 Stable, no change, undergoing physical therapy at this time. 6. History of stroke - ICD9: V12.54, ICD10: Z86.73 No new symptoms that would warrant additional workup at this time. Currently on Plavix and statin medication. Patient and agreeable to treatment plan of care at this time, questions were answered. Patient follow-up with Dr. Strange in 3 to 4 months. Jessy Weldon PA-C Encounter Diagnosis ICD-10-CM 1. Malaise and fatigue R53.81 R53.83 2. Lightheaded R42 3. Recurrent falls R29.6 4. Orthostatic hypotension I95.1 Return in about 3 months (around 11/20/2024), or Dr. Strange. Chart, labs,and relevant images reviewed. Chief Complaint:Patient presents with: Established Patient: Malaise, tremors, freq falls, lightheaded, SAUCEDO Chart Review: 04/30/24 ASSESSMENT/PLAN: 1. Malaise and fatigue - ICD9: 780.79, ICD10: R53.81, R53.83 (primary diagnosis) Patient reporting some worsening fatigue, generalized weakness. No falls. Patient with full strength on exam. Has basic blood work ordered, will add additional B12 level, folate and vitamin D. Also notes that he is not very physically active, primarily sits down throughout the day, likely deconditioning. Discussed at length the importance of physical exercise, deferring PT evaluation at this time but would like to increase physical exercise at home. 2. Lightheaded - ICD9: 780.4, ICD10: R42 3. Recurrent falls - ICD9: V15.88, ICD10: R29.6 4. Orthostatic hypotension - ICD9: 458.0, ICD10: I95.1 5. Weakness of both lower extremities - ICD9: 729.89, ICD10: R29.898 Symptoms likely multifactoral including spinal stenosis, orthostatic hypotension. Patient Without any falls since last appointment, using a rollator with good success. Still having daily episodes of lightheadedness and occasional episodes of presyncope, but no episodes of syncope. Symptoms improved significantly if he sits back down. Having some shortness of breath with this as well. Originally, when seen by Dr. Strange last January there was thought of decreasing blood pressure medications due to concerns of being overmedicated causing low blood pressures. However, Dr. Arguello does not want adjust medication at this time due to hypertension. Did discuss possibly starting Florinef, will reach out to Dr. Strange about confirming this medication before starting. Only drinking about 4 glasses of water a day, discussed importance of increasing hydration as well. Patient and agree and understand. No new symptoms would warrant additional up at this time. Encouraged conservative therapy as well. Patient to follow-up in 3 months or sooner should any symptoms change or worsen. Patient and agreeable to treatment plan of care at this time. Jessy Weldon PA-C HPI: Last seen for orthostatic HOTN, fatigue and falls on 04/30/24, using rollater and helping. Only four glasses of water, still having LH. Worsening fatigue, ordered labs but did not get. Deferring P (more content not included)... Normal [facility] Josh 08-21-2024 DONN Telephone ([facility]) RONY MONZON ([id number]) 1940 M DEF Date Time Provider Department 08/21/24 JESSY WELDON [facility] During your visit today, we recorded the following information about you: Jessy Weldon PA-C 08/21/2024 1:18 PM Signed Are we able to call Dr. Arguello's office and update Dr. Arguello. Patient was unable to tolerate decrease in amlodopine to 5mg once a day and had elevated BP. Still having daily lightheadedness, suggestions on starting florinef? HERBER Solorzano Samaria, LPN 08/21/2024 1:37 PM Signed Called and spoke to staff nurse, nurse will talk to Dr. Arguello and call back. José Luis Castro LPN August 21, 2024 1:37 PM José Luis Castro LPN 08/22/2024 8:45 AM Signed Response to call in scanned docs, received via fax. José Luis Castro LPN August 22, 2024 8:45 AM Allergies As of Date: 08/21/2024 Noted Allergy Reaction LYRICA (PREGABALIN) 08/01/2016 7 - Swelling Comments: B/L hand swelling NORFLEX (ORPHENADRINE CITRATE) 04/12/2016 8 - GI Upset VICODIN (HYDROCODONE-ACETAMINOP HE*12/04/2006 Comments: nightmares NEURONTIN (GABAPENTIN) 05/31/2016 7 - Swelling Comments: Feels that he does not have a true allergy to this medication. States he had swelling, not rash. Date Reviewed: 08/21/2024 Reviewed by: Jessy Weldon PA-C - Fully Assessed Prescriptions as of 08/22/2024 - rosuvastatin (CRESTOR) 10 mg tablet Take 1 tablet by mouth daily at bedtime. - propranolol (INDERAL) 20 mg tablet Take 1 tablet by mouth two times a day. - amLODIPine (NORVASC) 5 mg tablet Take 1 tablet by mouth two times a day. - clopidogrel (PLAVIX) 75 mg tablet Take 1 tablet by mouth once daily. - FLUoxetine (PROZAC) 40 mg capsule Take 1 capsule by mouth once daily. - amoxicillin (AMOXIL) 500 mg capsule 4 capsules 1 hours prior to dental procedure. - oxyCODONE IR (ROXICODONE) 5 mg immediate release tablet EVERY 6 HOURS NEEDED - lisinopril (PRINIVIL) 10 mg tablet Take 1 tablet by mouth twice daily. Dr. Kramer - nitroglycerin sublingual (NITROSTAT) 0.4 mg SL tablet Dissolve 1 tablet under the tongue every 5 minutes as needed for chest pain. - acetaminophen (TYLENOL EXTRA STRENGTH) 500 mg tablet Take 1 tablet by mouth every 6 hours as needed for pain. - multivitamin tablet Take 1 tablet by mouth once daily. Meds Comments as of 11/02/2021: Problem List As Of Date 08/21/2024 Noted Resolved BENIGN HYPERTENSION [I10] 12/14/2005 Hyperlipidemia, mixed [E78.2] 12/14/2005 Depression [F32.A] 12/14/2005 Pain in joint, lower leg [M25.569] 12/14/2005 05/02/2022 ESOPHAGEAL REFLUX [K21.9] 02/01/2006 IMPAIRED FASTING GLUCOSE [R73.01] 02/01/2006 BENIGN NEOPLASM LG BOWEL [D12.6] 03/29/2006 INT HEMORRHOID W/O COMPL [K64.8] 03/29/2006 Hypertrophy of prostate with urinary obstructio*06/17/2008 Pain in joint, pelvic region and thigh [M25.559]09/16/2008 05/02/2022 Spinal stenosis, lumbar [M48.061] 05/19/2010 Disc degeneration, lumbar [M51.369] 06/25/2010 07/05/2016 Gait instability [R26.81] 06/25/2010 Coronary artery disease involving [place]*11/23/2010 Anemia [D64.9] 08/20/2013 Nontoxic multinodular goiter [E04.2] 12/12/2013 Gallbladder polyp [K82.4] 06/10/2014 07/05/2016 Cervicalgia [M54.2] 06/18/2014 Lumbar radiculopathy [M54.16] 07/29/2014 Cervical spondylosis [M47.812] 07/29/2014 Cervical strain [S16.1XXA] 07/29/2014 05/02/2022 Left hip pain [M25.552] 10/29/2014 05/02/2022 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] 02/04/2015 Hip pain [M25.559] 02/04/2015 05/02/2022 DDD (degenerative disc disease), lumbar [M51.36*06/08/2015 Spinal stenosis, lumbar region, with neurogenic*05/17/2016 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] 07/20/2017 CKD (chronic kidney disease) Stage 3, GFR 30-59*08/22/2017 04/27/2023 Tremor [R25.1] 07/27/2018 Vasovagal syncope [R55] 07/27/2018 REHAN on CPAP [G47.33] 07/27/2018 Primary osteoarthritis of right hip [M16.11] 07/27/2018 History of total right hip arthroplasty [Z96.64*08/08/2018 Low back pain [M54.50] 02/04/2019 WILY (generalized anxiety disorder) [F41.1] 03/04/2020 Hypertensive kidney disease with stage 3 chroni*05/02/2022 04/27/2023 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 (HCC) [I73.9] 11/03/2022 Type 2 diabetes mellitus without complication, *11/03/2022 06/02/2023 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] 11/03/2022 Encounter Status:Closed by JESSY WELDON on 08/21/24 Normal [facility] Absolute lymphocyte countOrd ered By: Nini Brown on 07-29-2024 Lymphocytes Auto (Unsp spec) [#/Vol] 1.38 10*3/uL 0.83-4.51 [facility] Absolute neutrophil countOrd ered By: Nini Brown on 07-29-2024 Neutrophils (Bld) [#/Vol] 6.5 10*3/uL 2.0-7.7 [facility] Anion gap in Serum or Plasma Ordered By: Nini Brown on 07-29-2024 Anion gap [Moles/Vol] 10 mmol/L 5-15 [facility] Automated lymphocyte count a s percentage of total leukocytesOrdered By: Nini Brown on 07-29-2024 Lymphocytes/100 WBC Auto (Unsp spec) 14.7 % Low 19-41 [facility] BUN/creatinine ratioOrdered By: Nini Brown on 07-29-2024 Urea nitrogen/Creatinine [Mass ratio] 12.4 mg/mg 03-10 [facility] Basic Metabolic Profile (BMP )on 07-29-2024 BUN/CRE 12.4 RATIO Normal 03-10 [facility] Comment on above: Performed By: #### L 100.0100, L500.2500 #### [facility] [address] [place], [address] Calcium [Mass/Vol] 9.1 mg/dL Normal 7.6-11.0 [facility] Comment on above: Performed By: #### L 100.0100, L500.2500 #### [facility] [address] [place], [address] Chloride [Moles/Vol] 103 mmol/L Normal 98-108 [facility] Comment on above: Performed By: #### L 100.0100, L500.2500 #### [facility] [address] [place], [address] CO2 [Moles/Vol] 24.4 mmol/L Normal 21.0-32.0 [facility] Comment on above: Performed By: #### L 100.0100, L500.2500 #### [facility] [address] [place], [address] Creatinine [Mass/Vol] 0.98 mg/dL Normal 0.70-1.20 [facility] Comment on above: Performed By: #### L 100.0100, L500.2500 #### [facility] [address] [place], [address] ECRCL 70.24 ml/min Normal 50-250 [facility] Comment on above: Performed By: #### L 100.0100, L500.2500 #### [facility] [address] [place], [address] GAP 10 Normal 5-15 [facility] Comment on above: Performed By: #### L 100.0100, L500.2500 #### [facility] [address] [place], [address] GFR/1.73 sq M.predicted among non-blacks MDRD (S/P/Bld) [Vol rate/Area] 77 mL/min/{1.73_m2} Normal >60 [facility] Comment on above: Result Comment: mL/m in/1.73m2 CKD-EPI Creatinine Equation (2020) Performed By: #### L 100.0100, L500.2500 #### [facility] [address] [place], [address] Glucose [Mass/Vol] 100 mg/dL High 70-99 [facility] Comment on above: Performed By: #### L 100.0100, L500.2500 #### [facility] [address] [place], [address] Potassium [Moles/Vol] 4.1 mmol/L Normal 3.3-5.1 [facility] Comment on above: Performed By: #### L 100.0100, L500.2500 #### [facility] [address] [place], [address] Sodium [Moles/Vol] 137 mmol/L Normal 133-145 [facility] Comment on above: Performed By: #### L 100.0100, L500.2500 #### [facility] [address] [place], [address] Urea nitrogen [Mass/Vol] 12 mg/dL Normal 4-19 [facility] Comment on above: Performed By: #### L 100.0100, L500.2500 #### [facility] [address] [place], [address] Basophil percentageOrdered B y: Nini Brown on 03-10-2025 Basophils/100 WBC (Bld) 1.0 % 0-1 [facility] CBC W/Diff, Automatedon 03-1 0-2025 Absolute Lymph 1.38 X10 3/uL Normal 0.83-4.51 [facility] Comment on above: Performed By: #### L 100.0100, L500.2500 #### [facility] [address] [place], [address] Absolute Neut 6.5 X10 3/uL Normal 2.0-7.7 [facility] Comment on above: Performed By: #### L 100.0100, L500.2500 #### [facility] [address] [place], [address] Basophils/100 WBC (Bld) 1.0 % Normal 0-1 [facility] Comment on above: Performed By: #### L 100.0100, L500.2500 #### [facility] [address] [place], [address] Eosinophils/100 WBC (Bld) 4.7 % Normal 0-5 [facility] Comment on above: Performed By: #### L 100.0100, L500.2500 #### [facility] [address] [place], [address] Erythrocyte distribution width (RBC) [Ratio] 12.9 % Normal 11.6-14.6 [facility] Comment on above: Performed By: #### L 100.0100, L500.2500 #### [facility] [address] [place], [address] Hematocrit (Bld) [Volume fraction] 35.8 % Low 40-54 [facility] Comment on above: Performed By: #### L 100.0100, L500.2500 #### [facility] [address] [place], [address] Hemoglobin (Bld) [Mass/Vol] 12.0 g/dL Low 13.0-16.5 [facility] Comment on above: Performed By: #### L 100.0100, L500.2500 #### [facility] [address] [place], [address] IG% 0.300 Normal 0.0-0.9 [facility] Comment on above: Result Comment: IG% - Immature Granulocytes (promyelocytes, myelocytes and metamyelocytes) > 1% indicates that a LEFT SHIFT is Present. Performed By: #### L 100.0100, L500.2500 #### [facility] [address] [place], [address] Lymphocytes/100 WBC (Bld) 14.7 % Low 19-41 [facility] Comment on above: Performed By: #### L 100.0100, L500.2500 #### [facility] [address] [place], [address] MCH (RBC) [Entitic mass] 31.3 pg Normal 27.0-32.0 [facility] Comment on above: Performed By: #### L 100.0100, L500.2500 #### [facility] [address] [place], [address] MCHC (RBC) [Mass/Vol] 33.5 g/dL Normal 32-36 [facility] Comment on above: Performed By: #### L 100.0100, L500.2500 #### [facility] [address] [place], [address] MCV (RBC) [Entitic vol] 93.2 fL Normal 80-94 [facility] Comment on above: Performed By: #### L 100.0100, L500.2500 #### [facility] [address] [place], [address] Monocytes/100 WBC (Bld) 9.9 % Normal 0-10 [facility] Comment on above: Performed By: #### L 100.0100, L500.2500 #### [facility] [address] [place], [address] Neutrophils/100 WBC (Bld) 69.4 % Normal 47-70 [facility] Comment on above: Performed By: #### L 100.0100, L500.2500 #### [facility] [address] [place], [address] Nucleated RBC (Bld) [#/Vol] 0 10*3/uL Normal 0-5 [facility] Comment on above: Performed By: #### L 100.0100, L500.2500 #### [facility] [address] [place], [address] Platelet mean volume (Bld) [Entitic vol] 9.9 fL Normal 6.2-12.0 [facility] Comment on above: Performed By: #### L 100.0100, L500.2500 #### [facility] [address] [place], [address] Platelets (Bld) [#/Vol] 319 10*3/uL Normal 150-450 [facility] Comment on above: Performed By: #### L 100.0100, L500.2500 #### [facility] [address] [place], [address] RBC (Bld) [#/Vol] 3.84 10*6/uL Low 4.6-6.2 [facility] Comment on above: Performed By: #### L 100.0100, L500.2500 #### [facility] [address] [place], [address] RDW SD 44.1 fl High 35.1-43.9 [facility] Comment on above: Performed By: #### L 100.0100, L500.2500 #### [facility] [address] [place], [address] WBC (Bld) [#/Vol] 9.4 10*3/uL Normal 4.4-11.0 [facility] Comment on above: Performed By: #### L 100.0100, L500.2500 #### [facility] [address] [place], [address] Carbon dioxide, total [Moles /volume] in Central venous bloodOrdered By: Nini Brown on 07-29-2024 CO2 [Moles/Vol] 24.4 mmol/L 21.0-32.0 [facility] Cardiovascular stress test r eportOrdered By: Cuong Andrews on 07-29-2024 Study report [facility] [address] [place] [address] MR#: [id number] Acct: [id number] Name: RONY MONZON Rep #: [id number] : 1940 84 From: Cuong duque MD Primary Care: Dr. George Vaughan MD Sta tus: ADM ARTURO Referring Dr: Mimi Collier Stress Test Report Date: 07/29/2024 Procedure: Pharmacologic stress nuclear imaging study Indications: Chest pain Consent: Per the patient Procedure: The patient underwent pharmacologic (Regadenoson) evaluation with a peak heart rate of 78 beats per minute (56%predicted maximal heart rate) and a peak blood pressure of 178/80 mmHg. The baseline ECG demonstrated normal sinus rhythm, nonspecific ST-T changes. EKG during lexiscan infusion revealed no significant ischemic changes. EKG post infusion revealed no significant ischemic changes [There were no cardiac dysrhythmias pretest, during pharmacologic infusion, or recovery]. [There was no complaint of chest discomfort during pharmacologic infusion or recovery]. The examination was discontinued secondary to completion of protocol. Impression: 1. Lexiscan stress test test is negative for Lexiscan infusion induced EKG changes of ischemia. 2. Lexiscan stress test test is negative for Lexiscan infusion induced chest pain. 3. Results of the nuclear portion of the test is as below Myocardial perfusion imaging study: Technique: The patient was injected with 15 millicuries of technetium 99m Cardiolite and subsequently rest SPECT Cardiolite nuclear imaging was obtained in the horizontal long, vertical long, and short axis views. The patient underwent pharmacologic [Regadenoson 0.4mg] evaluation. Please see above for details. Thepatient was injected with 44.7 millicuries of technetium 99m Cardiolite and subsequently stress SPECT Cardiolite nuclear imaging was obtained in the horizontal long, vertical long, and short axis views. A gated Cardiolite study at peak stress was obtained. Interpretation: Rest and stress SPECT Cardiolite nuclear imaging status post realignment, normalization, and attenuation correction demonstrate no evidence of significantischemia or infarction. Gated images reveal no significant regional wall motionabnormalities. The reported LVEF is greater than 70%. Impression: 1. There is no evidence of significant ischemia or infarction. 2. Estimated ejection fraction is greater than 70%. This note was generated with [employer] systemation software. It may contain incorrectwords, spelling, and punctuation that were not noted in checking the note beforesigning. 07/29/241104 Date _ Cuong Andrews MD CC: Dr. Naawf Leblanc DO; Dr. David Doll MD; Dr. George Vaughan MD; Dr. Nini Brown MD ~ Date Dictated: 07/29/241102 Date Transcribed: 07/29/241102 Research Soil Scientist: NN Signed [facility] Work Phone: Chloride assayOrdered By: Tiara Brown on 07-29-2024 Chloride [Moles/Vol] 103 mmol/L 98-108 [facility] Electrocardiogram reportOrde red By: Haroon Dewitt on 07-29-2024 EKG study [facility] Cardi[facility] Services [address] [place] [address] 12 Lead EKG 07/28/24 1552 MR#: [id number] Acct: [id number] Name: RONY MONZON Rep #:[id number] : 1940 84 From: Haroon fonseca MD Attending Dr: Dr. Nawaf Leblanc DO Status: ADM ARTURO Ordering Dr: Nini Brwon MD Date: 07/28/24 Location: U Sex: M C Admitted: 07/28/24 Test Reason : CP ADMIT Blood Pressure : */* mmHG Vent. Rate : 53 BPM Atrial Rate : 53 BPM P-R Int : 204 ms QRS Dur : 86 ms QT Int : 458 ms P-R-T Axes : 60 -6 36 degrees QTcB Int : 429 ms Sinus bradycardia Otherwise normal ECG When compared with ECG of 28-Jul-2024 10:42, MANUAL COMPARISON REQUIRED DATA IS UNCONFIRMED Confirmed by Haroon Dewitt ([id number]), editorial manager NARAYAN ERAZO ([id number]) on 51:05:51 PM Referred By: MALDONADO Confirmed By: Haroon Dewitt 07/29/24 1305 Date _ Haroon Dewitt MD CC: Dr. Nawaf Leblanc DO; Dr. George Vaughan MD; Dr. Nini Brown MD ~ Signed [facility] Other Phone: EKG study [facility] Cardiovascular Services [address] [place] [address] 12 Lead EKG 07/28/24 1042 MR#: [id number] Acct: [id number] Name: RONY MONZON Rep #:[id number] : 1940 84 From: Haroon fonseca MD Attending Dr: Dr. Nawaf Leblanc DO Status: ADM ARTURO Ordering Dr: David Doll MD Date: 02/13 Location: U Sex: M C Admitted: 07/28/24 Test Reason : SOB Blood Pressure : */* mmHG Vent. Rate : 57 BPM Atrial Rate : 57 BPM P-R Int : 204 ms QRS Dur : 86 ms QT Int : 424 ms P-R-T Axes : 62 -3 42 degrees QTcB Int : 412 ms Sinus bradycardia Otherwise normal ECG Confirmed by Haroon Dewitt ([id number]), editorial manager ETHAN SALAS ([id number]) on 07/29/2024 11:03:02 AM Referred By: Confirmed By: Haroon Dewitt 07/29/24 1103 Date _ Haroon Dewitt MD CC: Dr. Nawaf Leblanc DO; Dr. David Doll MD; Dr. George Vaughan MD ~ Signed [facility] Other Phone: Eosinophil percentageOrdered By: Nini Brown on 07-29-2024 Eosinophils/100 WBC (Bld) 4.7 % 0-5 [facility] Erythrocyte distribution wid th ratioOrdered By: Mclean Southeastyash on 07-29-2024 Erythrocyte distribution width (RBC) [Ratio] 12.9 % 11.6-14.6 [facility] Erythrocyte distribution wid th standard deviationOrdered By: Ninisascha Brown on 07-29-2024 Erythrocyte distribution width (RBC) [Entitic vol] 44.1 fL High 35.1-43.9 [facility] Erythrocyte distribution width (RBC) [Ratio] 44.1 fl High 35.1-43.9 [facility] Estimation of creatinine junaid aranceOrdered By: Nini Brown on 07-29-2024 Estimated Creatinine Clearance Calc 70.24 ml/min 50-250 [facility] GFR/1.73 sq M.predicted ike g non-blacks MDRD (S/P/Bld) [Vol rate/Area]Ordered By: Nini Brown on 07-29-2024 Estimated GFR (MDRD) Non-Af Amer 77 >60 [facility] Comment on above: mL/min/1.73m2 CKD-EP I Creatinine Equation (2020) Glomerular filtration rate ( GFR) estimation/1.73 sq m using serum, plasma, or whole bOrdered By: Nini Brown on 07-29-2024 GFR/1.73 sq M.predicted among non-blacks MDRD (S/P/Bld) [Vol rate/Area] 77 mL/min/{1.73_m2} >60 [facility] Comment on above: mL/min/1.73m2 CKD-EP I Creatinine Equation (2020) Hematocrit Auto (Bld) [Volum e fraction]Ordered By: Nini Brown on 07-29-2024 Hematocrit (Bld) [Volume fraction] 35.8 % Low 40-54 [facility] Hemoglobin measurementOrdere d By: Nini Brown on 07-29-2024 Hemoglobin (Bld) [Mass/Vol] 12.0 g/dL Low 13.0-16.5 [facility] Immature granulocytes/100 WB C Auto (Bld)Ordered By: Nini Brown on 07-29-2024 Immature granulocytes/100 WBC (Bld) 0.300 % 0.0-0.9 [facility] Comment on above: IG% - Immature Granu locytes (promyelocytes, myelocytes and metamyelocytes) > 1% indicates that a LEFT SHIFT is Present. Lymphocytes Auto (Unsp spec) [#/Vol]Ordered By: Nini Brown on 07-29-2024 Lymphocytes (Bld) [#/Vol] 1.38 10*3/uL 0.83-4.51 [facility] Lymphocytes/100 WBC Auto (Un sp spec)Ordered By: Nini Brown on 07-29-2024 Lymphocytes/100 WBC (Bld) 14.7 % Low 19-41 [facility] MCV (mean corpuscular volume ) determinationOrdered By: Nini Brown on 07-29-2024 MCV (RBC) [Entitic vol] 93.2 fL 80-94 [facility] Mean corpuscular hemoglobin (MCH) determinationOrdered By: Nini Brown on 07-29-2024 MCH (RBC) [Entitic mass] 31.3 pg 27.0-32.0 [facility] Mean corpuscular hemoglobin concentration (MCHC) determinationOrdered By: Nini Brown on 07-29-2024 MCHC (RBC) [Mass/Vol] 33.5 g/dL 32-36 [facility] Mean platelet volume determi nationOrdered By: Nini Brown on 07-29-2024 Platelet mean volume (Bld) [Entitic vol] 9.9 fL 6.2-12.0 [facility] Monocyte percentageOrdered B y: Nini Brown on 07-29-2024 Monocytes/100 WBC (Bld) 9.9 % 0-10 [facility] Neutrophil percentageOrdered By: Nini Brown on 07-29-2024 Neutrophils/100 WBC (Bld) 69.4 % 47-70 [facility] Nucleated red blood cell per centageOrdered By: Nini Brown on 07-29-2024 Nucleated RBC/100 WBC (Bld) [Ratio] 0 % 0-5 [facility] Platelet countOrdered By: Na tiara Brown on 07-29-2024 Platelets (Bld) [#/Vol] 319 10*3/uL 150-450 [facility] Potassium (Unsp spec) [Mass/ Vol]Ordered By: Nini Brown on 07-29-2024 Potassium [Moles/Vol] 4.1 mmol/L 3.3-5.1 [facility] Potassium measurement (mass/ volume)Ordered By: Nini Brown on 07-29-2024 Potassium (Unsp spec) [Mass/Vol] 4.1 mmol/L 3.3-5.1 [facility] RBC Auto (Bld) [#/Vol]Ordere d By: Nini Brown on 07-29-2024 RBC (Bld) [#/Vol] 3.84 10*6/uL Low 4.6-6.2 [facility] Serum creatinine measurement (mass/volume)Ordered By: Nini Brown on 07-29-2024 Creatinine [Mass/Vol] 0.98 mg/dL 0.70-1.20 [facility] Serum glucose measurement (m ass/volume)Ordered By: Nini Brown on 07-29-2024 Glucose [Mass/Vol] 100 mg/dL High 70-99 [facility] Serum or plasma calcium obdulia urement (mass/volume)Ordered By: Nini Brown on 07-29-2024 Calcium [Mass/Vol] 9.1 mg/dL 7.6-11.0 [facility] Serum or plasma urea nitroge n measurement (mass/volume)Ordered By: Nini Brown on 07-29-2024 Urea nitrogen [Mass/Vol] 12 mg/dL 4-19 [facility] Sodium levelOrdered By: Nini Brown on 07-29-2024 Sodium [Moles/Vol] 137 mmol/L 133-145 [facility] Stress Reporton 07-29-2024 Stress Report [facility] Cardi[facility] [address] [place] [address] MR#: [id number] Acct: [id number] Name: RONY MONZON Rep #: [id number] : 1940 84 From: Cuong Andrews MD Primary Care: Dr. George Vaughan MD Status: ADM ARTURO Referring Dr: Sex: M C Stress Test Report Date: 07/29/2024 Procedure: Pharmacologic stress nuclear imaging study Indications: Chest pain Consent: Per the patient Procedure: The patient underwent pharmacologic (Regadenoson) evaluation with a peak heart rate of 78 beats per minute (56%predicted maximal heart rate) and a peak blood pressure of 178/80 mmHg. The baseline ECG demonstrated normal sinus rhythm, nonspecific ST-T changes. EKG during lexiscan infusion revealed no significant ischemic changes. EKG post infusion revealed no significant ischemic changes [There were no cardiac dysrhythmias pretest, during pharmacologic infusion, or recovery]. [There was no complaint of chest discomfort during pharmacologic infusion or recovery]. The examination was discontinued secondary to completion of protocol. Impression: 1. Lexiscan stress test test is negative for Lexiscan infusion induced EKG changes of ischemia. 2. Lexiscan stress test test is negative for Lexiscan infusion induced chest pain. 3. Results of the nuclear portion of the test is as below Myocardial perfusion imaging study: Technique: The patient was injected with 15 millicuries of technetium 99m Cardiolite and subsequently rest SPECT Cardiolite nuclear imaging was obtained in the horizontal long, vertical long, and short axis views. The patient underwent pharmacologic [Regadenoson 0.4mg] evaluation. Please see above for details. The patient was injected with 44.7 millicuries of technetium 99m Cardiolite and subsequently stress SPECT Cardiolite nuclear imaging was obtained in the horizontal long, vertical long, and short axis views. A gated Cardiolite study at peak stress was obtained. Interpretation: Rest and stress SPECT Cardiolite nuclear imaging status post realignment, normalization, and attenuation correction demonstrate no evidence of significant ischemia or infarction. Gated images reveal no significant regional wall motion abnormalities. The reported LVEF is greater than 70%. Impression: 1. There is no evidence of significant ischemia or infarction. 2. Estimated ejection fraction is greater than 70%. This note was generated with Dragon dictation software. It may contain incorrect words, spelling, and punctuation that were not noted in checking the note before signing. 07/29/24 110 Date Cuong Andrews MD CC: Dr. Nawaf Leblanc DO; Dr. David Doll MD; Dr. George Vaughan MD; Dr. Nini Brown MD Date Dictated: 07/29/24 110 Date Transcribed: 07/29/241102 Research Soil Scientist: NN Signed Normal [facility] White blood cell (WBC) count Ordered By: Nini Brown on 07-29-2024 WBC (Bld) [#/Vol] 9.4 10*3/uL 4.4-11.0 [facility] 12 Lead EKGon 07-28-2024 12 Lead EKG [facility] Cardiovascular Services [address] [place] [address] 12 Lead EKG 07/28/24 1552 MR#: [id number] Acct: [id number] Name: RONY MONZON Rep #: [id number] : 1940 84 From: Haroon Dewtit MD Attending Dr: Dr. Nawaf Leblanc DO Status: ADM ARTURO Ordering Dr: Nini Brown MD Date: 07/28/24 Location: [facility] Sex: M C Admitted: 07/28/24 Test Reason : CP ADMIT Blood Pressure : */* mmHG Vent. Rate : 53 BPM Atrial Rate : 53 BPM P-R Int : 204 ms QRS Dur : 86 ms QT Int : 458 ms P-R-T Axes : 60 -6 36 degrees QTcB Int : 429 ms Sinus bradycardia Otherwise normal ECG When compared with ECG of 28-Jul-2024 10:42, MANUAL COMPARISON REQUIRED DATA IS UNCONFIRMED Confirmed by Haroon Dewitt ([id number]), editorial manager NARAYAN ERAZO ([id number]) on 07/29/2024 1:05:51 PM Referred By: MALDONADO Confirmed By: Haroon Dewitt 07/29/24 1305 Date Haroon Dewitt MD CC: Dr. Nawaf Leblanc DO; Dr. George Vaughan MD; Dr. Nini Brown MD Signed [facility] 12 Lead EKG [facility] Services [address] [place] [address] 12 Lead EKG 07/28/24 1042 MR#: [id number] Acct: [id number] Name: RONY MONZON Rep #: [id number] : 1940 84 From: Haroon Dewitt MD Attending Dr: Dr. Nawaf Leblanc DO Status: ADM ARTURO Ordering Dr: David Doll MD Date: 07/28/24 Location: [facility] Sex: M C Admitted: 07/28/24 Test Reason : SOB Blood Pressure : */* mmHG Vent. Rate : 57 BPM Atrial Rate : 57 BPM P-R Int : 204 ms QRS Dur : 86 ms QT Int : 424 ms P-R-T Axes : 62 -3 42 degrees QTcB Int : 412 ms Sinus bradycardia Otherwise normal ECG Confirmed by Haroon Dewitt ([id number]), editorial manager ETHAN SALAS ([id number]) on 07/29/2024 11:03:02 AM Referred By: Confirmed By: Haroon Dewitt 07/29/24 1103 Date Haroon Dewitt MD CC: Dr. Nawaf Leblanc DO; Dr. David Doll MD; Dr. George Vaughan MD Signed [facility] Absolute neutrophil countOrd ered By: David Doll on 07-28-2024 Neutrophils (Bld) [#/Vol] 7.4 10*3/uL 2.0-7.7 [facility] Anion gap in Serum or Plasma Ordered By: David Doll on 07-28-2024 Anion gap [Moles/Vol] 11 mmol/L 5-15 [facility] BUN/creatinine ratioOrdered By: David Doll on 07-28-2024 Urea nitrogen/Creatinine [Mass ratio] 11.3 mg/mg - [facility] Basic Metabolic Profile (BMP )on 07-28-2024 BUN/CRE 11.3 RATIO Normal - [facility] Comment on above: Performed By: #### L 500.2500, L501.4021, L100.0100 #### [facility] [address] [place], [address] Calcium [Mass/Vol] 9.3 mg/dL Normal 7.6-11.0 [facility] Comment on above: Performed By: #### L 500.2500, L501.4021, L100.0100 #### [facility] [address] [place], [address] Chloride [Moles/Vol] 100 mmol/L Normal 98-108 [facility] Comment on above: Performed By: #### L 500.2500, L501.4021, L100.0100 #### [facility] [address] [place], [address] CO2 [Moles/Vol] 24.3 mmol/L Normal 21.0-32.0 [facility] Comment on above: Performed By: #### L 500.2500, L501.4021, L100.0100 #### [facility] [address] [place], [address] Creatinine [Mass/Vol] 1.12 mg/dL Normal 0.70-1.20 [facility] Comment on above: Performed By: #### L 500.2500, L501.4021, L100.0100 #### [facility] [address] [place], [address] ECRCL 61.84 ml/min Normal 50-250 [facility] Comment on above: Performed By: #### L 500.2500, L501.4021, L100.0100 #### [facility] [address] [place], [address] GAP 11 Normal 5-15 [facility] Comment on above: Performed By: #### L 500.2500, L501.4021, L100.0100 #### [facility] [address] [place], [address] GFR/1.73 sq M.predicted among non-blacks MDRD (S/P/Bld) [Vol rate/Area] 65 mL/min/{1.73_m2} Normal >60 [facility] Comment on above: Result Comment: mL/m in/1.73m2 CKD-EPI Creatinine Equation (2020) Performed By: #### L 500.2500, L501.4021, L100.0100 #### [facility] [address] [place], [address] Glucose [Mass/Vol] 181 mg/dL High 70-99 [facility] Comment on above: Performed By: #### L 500.2500, L501.4021, L100.0100 #### [facility] [address] [place], [address] Potassium [Moles/Vol] 3.9 mmol/L Normal 3.3-5.1 [facility] Comment on above: Performed By: #### L 500.2500, L501.4021, L100.0100 #### [facility] [address] [place], [address] Sodium [Moles/Vol] 136 mmol/L Normal 133-145 [facility] Comment on above: Performed By: #### L 500.2500, L501.4021, L100.0100 #### [facility] [address] [place], [address] Urea nitrogen [Mass/Vol] 13 mg/dL Normal 4-19 [facility] Comment on above: Performed By: #### L 500.2500, L501.4021, L100.0100 #### [facility] [address] [place], [address] Basophil percentageOrdered B y: David Doll on 07-28-2024 Basophils/100 WBC (Bld) 0.9 % 0-1 [facility] CBC W/Diff, Automatedon Absolute Lymph 1.19 X10 3/uL Normal 0.83-4.51 [facility] Comment on above: Performed By: #### L 500.2500, L501.4021, L100.0100 #### [facility] [address] [place], [address] Absolute Neut 7.4 X10 3/uL Normal 2.0-7.7 [facility] Comment on above: Performed By: #### L 500.2500, L501.4021, L100.0100 #### [facility] [address] [place], [address] Basophils/100 WBC (Bld) 0.9 % Normal 0-1 [facility] Comment on above: Performed By: #### L 500.2500, L501.4021, L100.0100 #### [facility] [address] [place], [address] Eosinophils/100 WBC (Bld) 3.9 % Normal 0-5 [facility] Comment on above: Performed By: #### L 500.2500, L501.4021, L100.0100 #### [facility] [address] [place], [address] Erythrocyte distribution width (RBC) [Ratio] 13.1 % Normal 11.6-14.6 [facility] Comment on above: Performed By: #### L 500.2500, L501.4021, L100.0100 #### [facility] [address] [place], [address] Hematocrit (Bld) [Volume fraction] 37.5 % Low 40-54 [facility] Comment on above: Performed By: #### L 500.2500, L501.4021, L100.0100 #### [facility] [address] [place], [address] Hemoglobin (Bld) [Mass/Vol] 12.6 g/dL Low 13.0-16.5 [facility] Comment on above: Performed By: #### L 500.2500, L501.4021, L100.0100 #### [facility] [address] [place], [address] IG% 0.200 Normal 0.0-0.9 [facility] Comment on above: Result Comment: IG% - Immature Granulocytes (promyelocytes, myelocytes and metamyelocytes) > 1% indicates that a LEFT SHIFT is Present. Performed By: #### L 500.2500, L501.4021, L100.0100 #### [facility] [address] [place], [address] Lymphocytes/100 WBC (Bld) 12.4 % Low 19-41 [facility] Comment on above: Performed By: #### L 500.2500, L501.4021, L100.0100 #### [facility] [address] [place], [address] MCH (RBC) [Entitic mass] 31.7 pg Normal 27.0-32.0 [facility] Comment on above: Performed By: #### L 500.2500, L501.4021, L100.0100 #### [facility] [address] [place], [address] MCHC (RBC) [Mass/Vol] 33.6 g/dL Normal 32-36 [facility] Comment on above: Performed By: #### L 500.2500, L501.4021, L100.0100 #### [facility] [address] [place], [address] MCV (RBC) [Entitic vol] 94.2 fL High 80-94 [facility] Comment on above: Performed By: #### L 500.2500, L501.4021, L100.0100 #### [facility] [address] [place], [address] Monocytes/100 WBC (Bld) 6.0 % Normal 0-10 [facility] Comment on above: Performed By: #### L 500.2500, L501.4021, L100.0100 #### [facility] [address] [place], [address] Neutrophils/100 WBC (Bld) 76.6 % High 47-70 [facility] Comment on above: Performed By: #### L 500.2500, L501.4021, L100.0100 #### [facility] [address] [place], [address] Nucleated RBC (Bld) [#/Vol] 0 10*3/uL Normal 0-5 [facility] Comment on above: Performed By: #### L 500.2500, L501.4021, L100.0100 #### [facility] [address] [place], [address] Platelet mean volume (Bld) [Entitic vol] 9.6 fL Normal 6.2-12.0 [facility] Comment on above: Performed By: #### L 500.2500, L501.4021, L100.0100 #### [facility] [address] [place], [address] Platelets (Bld) [#/Vol] 353 10*3/uL Normal 150-450 [facility] Comment on above: Performed By: #### L 500.2500, L501.4021, L100.0100 #### [facility] [address] [place], [address] RBC (Bld) [#/Vol] 3.98 10*6/uL Low 4.6-6.2 [facility] Comment on above: Performed By: #### L 500.2500, L501.4021, L100.0100 #### [facility] [address] [place], [address] RDW SD 45.2 fl High 35.1-43.9 [facility] Comment on above: Performed By: #### L 500.2500, L501.4021, L100.0100 #### [facility] [address] [place], [address] WBC (Bld) [#/Vol] 9.6 10*3/uL Normal 4.4-11.0 [facility] Comment on above: Performed By: #### L 500.2500, L501.4021, L100.0100 #### [facility] [address] [facility] [place], [address] Carbon dioxide, total [Moles /volume] in Central venous bloodOrdered By: David Doll on 07-28-2024 CO2 [Moles/Vol] 24.3 mmol/L 21.0-32.0 [facility] Chest 1 View (Portable)on Chest 1 View (Portable) [facility] Imaging Services [address] [facility] [address] Chest 1 View (Portable) MR#: [id number] Acct: [id number] Name: RONY MONZON Rep #: [id number] : 1940 M 84 From: Esperanza Barrios nd, MD PCP: Dr. George Vaughan MD Status: [facility] ER Study: Chest 1 View (Portable) Date of Exam: 07/28/24 Exam# [id number] Ordering Dr: David Doll MD PROCEDURE: CHEST 1 VIEW (PORTABLE) REASON FOR EXAM: 84-year-old male, mid sternal chest pain with left-sided radiation x2 days. TECHNIQUE: Frontal view of the chest. COMPARISON: Chest radiograph 02/10/2024. FINDINGS: The heart size is normal. Mild bibasilar atelectasis/scarring. No focal consolidation, pleural effusion or pneumothorax. Degenerative changes are identified within the thoracic spine. RAD/Chest 1 View (Portable) IMPRESSION: NEGATIVE CHEST. Reading Location: [facility] CC: Dr. David Doll MD; Dr. George Vaughan MD Research Soil Scientist: Signed Normal [facility] Chloride assayOrdered By: Pal Doll on 07-28-2024 Chloride [Moles/Vol] 100 mmol/L 98-108 [facility] Emergency Department Summary on 07-28-2024 Emergency Department Summary [facility] Medical Records Department [address] [place] [address] Emergency Department Summary 07/28/24 MR#: [id number] Acct: [id number] Name: RONY MONZON Rep #: [id number] : 1940 84 From: David Doll MD PCP: Dr. George Vaughan MD Status:REG ER Location: ED HPI History of Present Illness Chief Complaint: Chest Pain Informant: patient Onset/Context/Timing Onset: Days Activity at onset: gradual Timing: 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 Quality: Positive for Aching Location: Substernal Current Severity: Gone Maximum Severity: Mild Worsened By: Exertion Relieved By: Rest Associated Symptoms: Positive for Nausea, Dyspnea and Cough; Negative for Diaphoresis, Fever, Lightheadedness, Acid Reflux or Palpitations Narrative Narrative: 84-year-old male history of high cholesterol, CAD with 1 stent on Plavix and history of hypertension. States has had intermittent chest pain substernal sometimes goes in his back since . Comes and goes. He believes is worse with walking. Mild shortness of breath and nausea. Better at rest. Denies fever. No vomiting or diarrhea. recent URI that he has since picked up. No fever. Prior Similar Symptoms: Yes Recent Illness/Hospitalization : No CVD Risk Factors: Positive for Hypertension; Negative for Diabetes PE Risk Factors: Negative for Recent Travel/Surgery, Recent Immobilization, Prior DVT or PE, Cancer or OCP + Smoking + >/=35 TAD Risk Factors: Negative for Marfan's Syndrome PFSH PFS Medical History COVID-19 ( 01/18/22) Sepsis due to urinary tract infection History of transesophageal echocardiography (VIOLETTE) Wears hearing aid Wears glasses Depression Anxiety Walker as ambulation aid Arthritis Indwelling urethral catheter present Low iron Easy bruising History of hiatal hernia Former smoker Chest pain History of tilt table evaluation Cardiology follow-up encounter History of echocardiogram History of stress test Enterococcus UTI H/O appendicitis Presence of stent in coronary artery ( 09/08/10) Pure hypercholesterolemia Essential hypertension PTSD (post-traumatic stress disorder) Pulmonary hypertension Restless legs syndrome (RLS) REHAN (obstructive sleep apnea) Syncope and collapse Dizziness and giddiness Fatigue Shortness of breath Dyspnea Precordial chest pain 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 Atherosclerotic heart disease of [place] coronary artery without angina pectoris 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 Neck pain on left side Benign prostatic hypertrophy Coronary artery disease Home Medications ???Medication ???Instructions ???Recorded ???Last Taken ???Type fluoxetine 40 mg capsule (Prozac) 40 mg PO DAILY 07/04/18 07/13/21 History acetaminophen 500 mg tablet 500 mg PO Q6H PRN Pain 06/17/20 History (Tylenol Extra Strength) amlodipine 5 mg tablet 5 mg PO BID 03/17/21 07/14/21 Hist ory multivitamin 1 tab PO DAILY 02/08/22 Unknown Hi story clopidogrel 75 mg tablet 75 mg PO DAILY 05/05/22 Unknown Hi story nitroglycerin 0.4 mg sublingual 0.4 mg sublingual Q5-15M PRN chest 05/26/22 Unknown Rx tablet pain #25 tabs rosuvastatin 10 mg tablet 10 mg PO QHS #90 tabs 11/24/22 Unk nown Rx oxycodone 5 mg tablet 5 mg PO Q6H PRN pain 04/16/23 Unkn own History propranolol 20 mg tablet 30 mg PO BID 04/16/23 Unknown Hist ory lisinopril 10 mg tablet 10 mg PO BID #180 TABLETS 04/11/24 Unknown Rx Allergy/AdvReac Type Severity Reaction Status Date / Time hydrocodone (From Vicodin) Allergy Other Verified 07/28/24 10:20 orphenadrine Allergy Unknown Verified 07/28/24 10:20 pregabalin Allergy Swelling Verified 07/28/24 10:20 atorvastatin (From Lipitor) AdvReac Severe Intolerance Verified 07/28/24 10:20 ,Myalgias Family History Father CVA (cerebral vascular accident) Mother Cardiomegaly Brother CAD (coronary artery disease) Hx CABG and valve replacement Diabetes Brother History of heart valve replacement Brother Rheumatic fever Sister Hypertension Aortic aneurysm H/O aortic valve replacement Brother Cancer bladder Brother Thyroid disorder Surgical History S/P TURP History of colonoscopy H/O heart artery stent History of right hip replacement Presence of coronary angioplasty implant and graft ( 09/08/10) S/P right knee arthroscopy History of appendectomy hx cervical stenosis History of vasectomy History of hydrocelectomy Social History household members: spouse housing: house Smoking Status: Former smoker pack-years: 20 Tobacco: How many years used: 22 second hand exposure: No alcohol intake: (more content not included)... Normal [facility] Eosinophil percentageOrdered By: David Doll on 07-28-2024 Eosinophils/100 WBC (Bld) 3.9 % 0-5 [facility] Erythrocyte distribution wid th ratioOrdered By: David Doll on 07-28-2024 Erythrocyte distribution width (RBC) [Ratio] 13.1 % 11.6-14.6 [facility] Erythrocyte distribution wid th standard deviationOrdered By: David Doll on 07-28-2024 Erythrocyte distribution width (RBC) [Entitic vol] 45.2 fL High 35.1-43.9 [facility] Estimation of creatinine junaid aranceOrdered By: David Doll on 07-28-2024 Estimated Creatinine Clearance Calc 61.84 ml/min 50-250 [facility] GFR/1.73 sq M.predicted ike g non-blacks MDRD (S/P/Bld) [Vol rate/Area]Ordered By: David Doll on 07-28-2024 Estimated GFR (MDRD) Non-Af Amer 65 >60 [facility] Comment on above: mL/min/1.73m2 CKD-EP I Creatinine Equation (2020) H AND P Exam - [facility] 07-28-2024 H&P Exam - Hospitalist [facility] Health System Medical Records Department [address] [place] [id number] H P Exam - Hospitalist 07/28/24 1627 MR#: [id number] Acct: [id number] Name: RONY MONZON Rep #: [id number] : 1940 84 From: Nini Brown MD PCP: Dr. George Vaughan MD Status:ADM ARTURO Location: [place] [address] HPI - General General Date of Admission: 07/28/24 Date of Service: 07/28/24 Chief Complaint: chest pain HPI Narrative RONY MONZON, is a 84 M with a past medical history as outlined which includes history of CAD s/p stent x 1 was admitted through the ED on 07/28/2024 with a complaint of chest pain. He said that he and his had recently had upper respiratory symptoms with some cough and congestion and mild shortness of breath. However these had resolved but he subsequently started having this chest pain. He described the pain as pressure-like and said it radiated to his back. However per his he had chronic back pain and patient said the back pain was similar to his chronic back pain. He had no aggravating or relieving factors and said even though he usually had nitro on him he had not taken any nitro for the chest pain. He denied any fever or chills, lightheadedness or dizziness, palpitations, nausea vomiting or any other symptoms. Review of symptoms otherwise negative. Vitals in the ED were blood pressure of 156/57, pulse rate of 51, respiratory rate of 16 and temp of 97.6 Fahrenheit. He was saturating at 100% on room air. CBC showed hemoglobin of 12.6 with WBC of 9.6 and platelets of 353. Chemistry showed sodium of 136 with potassium of 3.9 and bicarb of 24.3. Anion gap was 11. Creatinine was 1.12. Initial troponin was 23 and delta troponin was only 24. Chest x-ray showed no acute cardiopulmonary pathology and EKG showed no acute ST changes. He has been admitted to be managed for chest pain to rule out ACS. [facility] Medical History COVID-19 ( 01/18/22) Sepsis due to urinary tract infection History of transesophageal echocardiography (VIOLETTE) Wears hearing aid Wears glasses Depression Anxiety Walker as ambulation aid Arthritis Indwelling urethral catheter present Low iron Easy bruising History of hiatal hernia Former smoker Chest pain History of tilt table evaluation Cardiology follow-up encounter History of echocardiogram History of stress test Enterococcus UTI H/O appendicitis Presence of stent in coronary artery ( 09/08/10) Pure hypercholesterolemia Essential hypertension PTSD (post-traumatic stress disorder) Pulmonary hypertension Restless legs syndrome (RLS) REHAN (obstructive sleep apnea) Syncope and collapse Dizziness and giddiness Fatigue Shortness of breath Dyspnea Precordial chest pain 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 Atherosclerotic heart disease of [place] coronary artery without angina pectoris 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 Neck pain on left side Benign prostatic hypertrophy Coronary artery disease Home Medications ???Medication ???Instructions ???Recorded ???Last Taken ???Type fluoxetine 40 mg capsule (Prozac) 40 mg PO DAILY 07/04/18 07/13/21 History acetaminophen 500 mg tablet 500 mg PO Q6H PRN Pain 06/17/20 History (Tylenol Extra Strength) amlodipine 5 mg tablet 5 mg PO BID 03/17/21 07/14/21 Hist ory multivitamin 1 tab PO DAILY 02/08/22 Unknown Hi story clopidogrel 75 mg tablet 75 mg PO DAILY 05/05/22 Unknown Hi story nitroglycerin 0.4 mg sublingual 0.4 mg sublingual Q5-15M PRN chest 05/26/22 Unknown Rx tablet pain #25 tabs rosuvastatin 10 mg tablet 10 mg PO QHS #90 tabs 11/24/22 Unk nown Rx oxycodone 5 mg tablet 5 mg PO Q6H PRN pain 04/16/23 Unkn own History propranolol 20 mg tablet 30 mg PO BID 04/16/23 Unknown Hist ory lisinopril 10 mg tablet 10 mg PO BID #180 TABLETS 04/11/24 Unknown Rx Allergy/AdvReac Type Severity Reaction Status Date / Time hydrocodone (From Vicodin) Allergy Other Verified 07/28/24 10:20 orphenadrine Allergy Unknown Verified 07/28/24 10:20 pregabalin Allergy Swelling Verified 07/28/24 10:20 atorvastatin (From Lipitor) AdvReac Severe Intolerance Verified 07/28/24 10:20 ,Myalgias Family History Father CVA (cerebral vascular accident) Mother Cardiomegaly Brother CAD (coronary artery disease) Hx CABG and valve replacement Diabetes Brother History of heart valve replacement Brother Rheumatic fever Sister Hypertension Aortic aneurysm H/O aortic valve replacement Brother Cancer bladder Brother Thyroid disorder Surgical History S/P TURP History of colonoscopy H/O heart artery stent History of right hip replacement Presence of coronary angioplasty implant and graft ( (more content not included)... Normal [facility] Hematocrit Auto (Bld) [Volum e fraction]Ordered By: David Doll on 07-28-2024 Hematocrit (Bld) [Volume fraction] 37.5 % Low 40-54 [facility] Hemoglobin measurementOrdere d By: David Doll on 07-28-2024 Hemoglobin (Bld) [Mass/Vol] 12.6 g/dL Low 13.0-16.5 [facility] Immature granulocytes/100 WB C Auto (Bld)Ordered By: David Doll on 07-28-2024 Immature granulocytes/100 WBC (Bld) 0.200 % 0.0-0.9 [facility] Comment on above: IG% - Immature Granu locytes (promyelocytes, myelocytes and metamyelocytes) > 1% indicates that a LEFT SHIFT is Present. Influenza virus A and B and SARS-CoV-2 (COVID-19) and Respiratory syncytial virus RNAOrdered By: Davdi Doll on 07-28-2024 SARS-CoV-2 (COVID-19) RNA MARINA+probe Ql (Unsp spec) [facility] [id number] 07-28-2024 Trop T High Sen 24 ng/L High <=22 [facility] Comment on above: Performed By: #### L 499.0042 ####[facility] [id number] [place], [place], [address] [id number] 07-28-2024 Trop T High Sen 23 ng/L High <=22 [facility] Comment on above: Performed By: #### L 499.0043 ####[facility] [id number] [place], [place], [id number] 07-28-2024 Trop T High Sen 23 ng/L High <=22 [facility] Comment on above: Performed By: #### L 500.2500, L501.4021, L100.0100 ####[facility] [id number] [place], [address] Lymphocytes Auto (Unsp spec) [#/Vol]Ordered By: David Doll on 07-28-2024 Lymphocytes (Bld) [#/Vol] 1.19 10*3/uL 0.83-4.51 [facility] Lymphocytes/100 WBC Auto (Un sp spec)Ordered By: David Doll on 07-28-2024 Lymphocytes/100 WBC (Bld) 12.4 % Low 19-41 [facility] [id number] 07-28-2024 M100.678 SARS-CoV-2 (COVID 19 ) Negative INFLUENZA A Negative INFLUENZA B Negative RSV PCR Negative Normal [facility] Comment on above: Performed By: #### M 100.678 ####[facility] [id number] [place], [address] MCV (mean corpuscular volume ) determinationOrdered By: David Doll on 07-28-2024 MCV (RBC) [Entitic vol] 94.2 fL High 80-94 [facility] Mean corpuscular hemoglobin (MCH) determinationOrdered By: David Doll on 07-28-2024 MCH (RBC) [Entitic mass] 31.7 pg 27.0-32.0 [facility] Mean corpuscular hemoglobin concentration (MCHC) determinationOrdered By: David Doll on 07-28-2024 MCHC (RBC) [Mass/Vol] 33.6 g/dL 32-36 [facility] Mean platelet volume determi nationOrdered By: David Doll on 07-28-2024 Platelet mean volume (Bld) [Entitic vol] 9.6 fL 6.2-12.0 [facility] Monocyte percentageOrdered B y: David Doll on 07-28-2024 Monocytes/100 WBC (Bld) 6.0 % 0-10 [facility] Neutrophil percentageOrdered By: David Doll on 07-28-2024 Neutrophils/100 WBC (Bld) 76.6 % High 47-70 [facility] No Panel InformationOrdered By: David Doll on 07-28-2024 Troponin T High Sensitivity 23 ng/L High <22 [facility] Nucleated red blood cell per centageOrdered By: David Doll on 07-28-2024 Nucleated RBC/100 WBC (Bld) [Ratio] 0 % 0-5 [facility] Platelet countOrdered By: Pal Doll on 07-28-2024 Platelets (Bld) [#/Vol] 353 10*3/uL 150-450 [facility] Potassium (Unsp spec) [Mass/ Vol]Ordered By: David Doll on 07-28-2024 Potassium [Moles/Vol] 3.9 mmol/L 3.3-5.1 [facility] RBC Auto (Bld) [#/Vol]Ordere d By: David Doll on 07-28-2024 RBC (Bld) [#/Vol] 3.98 10*6/uL Low 4.6-6.2 [facility] Serum creatinine measurement (mass/volume)Ordered By: David Doll on 07-28-2024 Creatinine [Mass/Vol] 1.12 mg/dL 0.70-1.20 [facility] Serum glucose measurement (m ass/volume)Ordered By: David Doll on 07-28-2024 Glucose [Mass/Vol] 181 mg/dL High 70-99 [facility] Serum or plasma calcium obdulia urement (mass/volume)Ordered By: David Doll on 07-28-2024 Calcium [Mass/Vol] 9.3 mg/dL 7.6-11.0 [facility] Serum or plasma urea nitroge n measurement (mass/volume)Ordered By: David Doll on 07-28-2024 Urea nitrogen [Mass/Vol] 13 mg/dL 4-19 [facility] Sodium levelOrdered By: David Doll on 07-28-2024 Sodium [Moles/Vol] 136 mmol/L 133-145 [facility] Troponin T.cardiac High sens itivity method [Mass/Vol]Ordered By: David Doll on 07-28-2024 Troponin T High Sensitivity 4 Hour 23 ng/L High <22 [facility] Troponin T High Sensitivity 2 Hour 24 ng/L High <22 [facility] Troponin T.cardiac [Mass/vol ume] in Serum or Plasma by High sensitivity methodOrdered By: David Doll on 07-28-2024 Troponin T.cardiac High sensitivity method [Mass/Vol] 23 ng/L High <22 [facility] Troponin T.cardiac High sensitivity method [Mass/Vol] 24 ng/L High <22 [facility] White blood cell (WBC) count Ordered By: David Doll on 07-28-2024 WBC (Bld) [#/Vol] 9.6 10*3/uL 4.4-11.0 [facility] CNOVon 07-23-2024 CNOV Office Visit (FAMPWS ) RONY MONZON ([id number]) 1940 M DEF Date Time Provider Department 07/23/24 9:00 AM GEORGE VAUGHAN During your visit today, we recorded the following information about you: Pulse Respiration Blood pressure Weight 68/minute 18/minute 128/64 101.3 kg George Vaughan MD 07/23/2024 11:37 AM Signed Chief Complaint Patient presents with: F/U 6 Month HPI Rony Monzon is a 83 year old male who presents here today for a 6 month follow up. Pt here today with his for routine follow up. Labs not done. GI/Uro - Denies any stomach, bowel, or urinary issues. GERD - Pt has had chronic GERD sx, with pain between the shoulder blades for a long time. He has had multiple testing and imaging done. SAUCEDO - Headaches that occur, but pt believes that the neck pain contributes to some of the pain. Takes Tylenol as needed which helps. Glucose - Hx of elevated glucose/A1c. Currently on no medications at this time and controlling with diet and lifestyle. Pt states he had eye exam done in October of [address] Luna. HTN - Checks BP at home occ. Pt report BP being slightly high. Pt reports chest pain, sob, or dizziness at times. Is on Propranolol 30 mg 1 pill BID, Lisinopril 10 mg 1 pill BID, and Norvasc 5 mg 1 pill BID. Follows with [facility] at least annually. Needs to make an appt with them. Tremors: Follows with Neuro, taking Propranolol 30 mg 1 pill twice a day. Lipid/CAD: Taking Plavix 75 mg daily and Crestor 10 mg daily. Tries to watch his diet. Denies any exercise. Pain: chronic; uses Oxycodone 5 mg every 6 hours prn and Tylenol extra strength prn. Wants to start back on a muscle relaxant, used flexeril in past. feels that pt would benefit from PT due to his chronic pain in his back, neck, balance issues and his sob issues. Pt does not feel the same. Pt is currently using a rollator continuously. Denies any falls in the past year. HM - RSV/Shingles vaccine through the Pharmacy due to Medicare Insurance. Does have Adv Dir/Living Will. Past medical history, appointments, medications, allergies reviewed. Previous Medical History PAST MEDICAL HISTORY Diagnosis Date Adjustment disorder with depressed mood Anemia Benign neoplasm of colon Coronary artery disease Diabetes (HCC) Essential hypertension, benign Gallbladder polyp needs repeat ultrasound in 06/06 Impaired fasting glucose Internal hemorrhoids without mention of complication Other and unspecified hyperlipidemia Personal history of colonic polyps Previous Surgical History PAST SURGICAL HISTORY Procedure Laterality Date APPENDECTOMY ARTHRP ACETBLR/PROX FEM PROSTC AGRFT/ALGRFT Right 08/08/2018 Dr. Charly Suh CARDIAC CATH N/A 02/02/2015 Completed at [facility] COLONOSCOPY FLX DX W/COLLJ SPEC WHEN PFRMD 07/11/12 Colonoscopy COLONOSCOPY FLX DX W/COLLJ SPEC WHEN PFRMD 02/24/2017 Colonoscopy COLONOSCOPY W/BIOPSY SINGLE/MULTIPLE 03/29/06 ESOPHAGOGASTRODUODENOSC OPY TRANSORAL DIAGNOSTIC 02/24/2017 EGD [facility] W/O FACETEC FORAMOT/DSC / VRT SGM CRV Dr Cole PAST SURGICAL HISTORY OF Right 2007 knee surgery RPR [place] VAGINALIS HYDROCELE BOTTLE TYPE STENT PLACEMENT 08/2010 [facility] VASECTOMY UNI/BI SPX W/POSTOP SEMEN EXAMS Family History FAMILY HISTORY Problem Relation Age of Onset Heart Brother valvular heart disease Heart Brother valvular heart disease Heart Brother valvular heart diease Hypertension Sister COPD Father Stroke Father Heart Mother Patient Allergies ALLERGIES Allergen Reactions Lyrica [Pregabalin] Swelling B/L hand swelling Norflex [Orphenadri* GI Upset Vicodin [Hydrocodon* nightmares Neurontin [Gabapent* Swelling Feels that he does not have a true allergy to this medication. States he had swelling, not rash. Current Medications Current Outpatient Medications on File Prior to Visit Medication Sig propranolol (INDERAL) 20 mg tablet Take 1 tablet by mouth two times a day. amLODIPine (NORVASC) 5 mg tablet Take 1 tablet by mouth two times a day. clopidogrel (PLAVIX) 75 mg tablet Take 1 tablet by mouth once daily. FLUoxetine (PROZAC) 40 mg capsule Take 1 capsule by mouth once daily. cyclobenzaprine (FLEXERIL) 10 mg tablet Take 1 tablet by mouth three times a day as needed for muscle spasm. amoxicillin (AMOXIL) 500 mg capsule 4 capsules 1 hours prior to dental procedure. rosuvastatin (CRESTOR) 10 mg tablet Take 1 tablet by mouth daily at bedtime. oxyCODONE IR (ROXICODONE) 5 mg immediate release tablet EVERY 6 HOURS NEEDED lisinopril (PRINIVIL) 10 mg tablet Take 1 tablet by mouth twice daily. Dr. Kramer nitroglycerin sublingual (NITROSTAT) 0.4 mg SL tablet Dissolve 1 tablet under the tongue every 5 minutes as needed for chest pain. acetaminophen (TYLENOL EXTRA STRENG (more content not included)... [facility] Office Visit (UCWSTR ) RONY MONZON ([id number]) 1940 M DEF Date Time Provider Department 05/16/24 3:45 PM AMA [facility] During your visit today, we recorded the following information about you: Temperature Pulse Respiration Blood pressure 97.4 degrees 60/minute 18/minute 148/72 Weight 99.6 kg Ama Brian APRN.CNP 05/16/2024 3:43 PM Signed Subjective HPI HPI Rony Monzon is a 83 year old male who presents today for CC of left ear bleeding, no pain. This started 1 week ago. Has tried nothing for relief. Symptoms are worsened by nothing. Risk factors uses qtips regularly, also wears hearing aids daily. .Patient presents with: Ear Problem: Blood in L ear x1 week, no pain PAST MEDICAL HISTORY Diagnosis Date Adjustment disorder with depressed mood Anemia Benign neoplasm of colon Coronary artery disease Diabetes (HCC) Essential hypertension, benign Gallbladder polyp needs repeat ultrasound in 06/06 Impaired fasting glucose Internal hemorrhoids without mention of complication Other and unspecified hyperlipidemia Personal history of colonic polyps PAST SURGICAL HISTORY Procedure Laterality Date APPENDECTOMY ARTHRP ACETBLR/PROX FEM PROSTC AGRFT/ALGRFT Right 08/08/2018 Dr. Charly Suh CARDIAC CATH N/A 02/02/2015 Completed at [facility] COLONOSCOPY FLX DX W/COLLJ SPEC WHEN PFRMD 07/11/12 Colonoscopy COLONOSCOPY FLX DX W/COLLJ SPEC WHEN PFRMD 02/24/2017 Colonoscopy COLONOSCOPY W/BIOPSY SINGLE/MULTIPLE 03/29/06 ESOPHAGOGASTRODUODENOSC OPY TRANSORAL DIAGNOSTIC 02/24/2017 EGD [place] W/O FACETEC FORAMOT/DSC / VRT SGM CRV Dr Cole PAST SURGICAL HISTORY OF Right 2007 knee surgery RPR [place] VAGINALIS HYDROCELE BOTTLE TYPE STENT PLACEMENT 08/2010 [facility] VASECTOMY UNI/BI SPX W/POSTOP SEMEN EXAMS ALLERGIES Lyrica [Pregabalin], Norflex [Orphenadrine Citrate], Vicodin [Hydrocodone-Acetaminop hen], and Neurontin [Gabapentin] MEDICATIONS ofloxacin (FLOXIN) 0.3 % otic solution Use 10 Drops in the left ear once daily for 7 days. clopidogrel (PLAVIX) 75 mg tablet Take 1 tablet by mouth once daily. FLUoxetine (PROZAC) 40 mg capsule Take 1 capsule by mouth once daily. propranolol (INDERAL) 20 mg tablet Take 1 tablet by mouth two times a day. cyclobenzaprine (FLEXERIL) 10 mg tablet Take 1 tablet by mouth three times a day as needed for muscle spasm. amoxicillin (AMOXIL) 500 mg capsule 4 capsules 1 hours prior to dental procedure. rosuvastatin (CRESTOR) 10 mg tablet Take 1 tablet by mouth daily at bedtime. amLODIPine (NORVASC) 5 mg tablet Take 1 tablet by mouth two times a day. oxyCODONE IR (ROXICODONE) 5 mg immediate release tablet EVERY 6 HOURS NEEDED lisinopril (PRINIVIL) 10 mg tablet Take 1 tablet by mouth twice daily. Dr. Kramer nitroglycerin sublingual (NITROSTAT) 0.4 mg SL tablet Dissolve 1 tablet under the tongue every 5 minutes as needed for chest pain. acetaminophen (TYLENOL EXTRA STRENGTH) 500 mg tablet Take 1 tablet by mouth every 6 hours as needed for pain. multivitamin tablet Take 1 tablet by mouth once daily. FAMILY HISTORY Problem Relation Age of Onset Heart Brother valvular heart disease Heart Brother valvular heart disease Heart Brother valvular heart diease Hypertension Sister COPD Father Stroke Father Heart Mother Social History Tobacco Use Smoking status: Former Current packs/day: 0.00 Types: Cigarettes, Pipe Start date: 1962 Quit date: 1981 Years since quittin.0 Smokeless tobacco: Former Quit date: 05/22/1981 Tobacco comments: Quit in 1981 Vaping Use Vaping status: Never Used Substance Use Topics Alcohol use: No Drug use: No ROS Objective Blood pressure 148/72, pulse 60, temperature 36.3 ?C (97.4 ?F), resp. rate 18, weight 99.6 kg (219 lb 9.3 oz), SpO2 97%. Physical Exam Constitutional: General: He is not in acute distress. Appearance: He is not toxic-appearing or diaphoretic. HENT: Head: Normocephalic and atraumatic. Right Ear: Hearing, tympanic membrane, ear canal and external ear normal. Left Ear: Hearing, tympanic membrane and external ear normal. Ears: Comments: Abrasion, scabbed. No bleeding,erythema, exudates. Pulmonary: Effort: Pulmonary effort is normal. No accessory muscle usage or respiratory distress. Neurological: Mental Status: He is alert and oriented to person, place, and time. ASSESSMENT/PLAN: 1. Abrasion of left ear canal, initial encounter - ICD9: 910.0, ICD10: S00.412A I discussed proper ear hygiene. Will cover with atb F/u with ENT if s/s - OFLOXACIN 0.3 % EAR DROPS Ama Brian APRN.[employer] Allergies As of Date: 05/16/2024 Noted Allergy Reaction LYRICA (PREGABALIN) 08/01/2016 7 - Swelling Comments: B/L hand swelling NORFLEX (ORPHENADRINE CITRATE) 04/12/2016 8 - GI Upset VICODIN (HYDROCODO (more content not included)... Normal [facility] CNCOon 05-02-2024 CNCO Letter Text Normal [facility] CNPNon 05-01-2024 CNPN Telephone (N[place]OWS) RONY MONZON ([id number]) 1940 [facility] Date Time Provider Department 05/01/24 JESSY WELDON During your visit today, we recorded the following information about you: Jessy Weldon PA-C 05/01/2024 8:17 AM Signed Are we able to reach out to Dr. Arguello's office and ask if he would be amenable to this patient starting florinef for orthostatic hypotension. HERBER Solorzano Samaria, LPN 05/02/2024 8:57 AM Signed Faxed letter to Dr. Arguello for approval of medication. José Luis Castro LPN May 02, 2024 8:57 AM Nick Avila OCCA 05/06/2024 1:33 PM Signed Received communication from Dr. Arguello's office to change Amlodipine to 5 mg PO and have patient see him for follow up prior to starting Florinef. VINCENT Landeros Samaria, LPN 05/09/2024 1:24 PM Signed Called patient no answer, Left voicemail. José Luis Castro LPN May 09, 2024 1:24 PM José Luis Castro LPN 05/16/2024 4:04 PM Signed Called patient no answer, Left voicemail. José Luis Castro, JAYJAY May 16, 2024 4:04 PM Allergies As of Date: 05/01/2024 Noted Allergy Reaction LYRICA (PREGABALIN) 08/01/2016 7 - Swelling Comments: B/L hand swelling NORFLEX (ORPHENADRINE CITRATE) 04/12/2016 8 - GI Upset VICODIN (HYDROCODONE-ACETAMINOP HE*12/04/2006 Comments: nightmares NEURONTIN (GABAPENTIN) 05/31/2016 7 - Swelling Comments: Feels that he does not have a true allergy to this medication. States he had swelling, not rash. Date Reviewed: 04/30/2024 Reviewed by: Jessy Weldon PA-C - Fully Assessed Prescriptions as of 05/16/2024 - ofloxacin (FLOXIN) 0.3 % otic solution Use 10 Drops in the left ear once daily for 7 days. - clopidogrel (PLAVIX) 75 mg tablet Take 1 tablet by mouth once daily. - FLUoxetine (PROZAC) 40 mg capsule Take 1 capsule by mouth once daily. - propranolol (INDERAL) 20 mg tablet Take 1 tablet by mouth two times a day. - cyclobenzaprine (FLEXERIL) 10 mg tablet Take 1 tablet by mouth three times a day as needed for muscle spasm. - amoxicillin (AMOXIL) 500 mg capsule 4 capsules 1 hours prior to dental procedure. - rosuvastatin (CRESTOR) 10 mg tablet Take 1 tablet by mouth daily at bedtime. - amLODIPine (NORVASC) 5 mg tablet Take 1 tablet by mouth two times a day. - oxyCODONE IR (ROXICODONE) 5 mg immediate release tablet EVERY 6 HOURS NEEDED - lisinopril (PRINIVIL) 10 mg tablet Take 1 tablet by mouth twice daily. Dr. Kramer - nitroglycerin sublingual (NITROSTAT) 0.4 mg SL tablet Dissolve 1 tablet under the tongue every 5 minutes as needed for chest pain. - acetaminophen (TYLENOL EXTRA STRENGTH) 500 mg tablet Take 1 tablet by mouth every 6 hours as needed for pain. - multivitamin tablet Take 1 tablet by mouth once daily. Meds Comments as of 11/02/2021: Problem List As Of Date 05/01/2024 Noted Resolved BENIGN HYPERTENSION [I10] 12/14/2005 Hyperlipidemia, mixed [E78.2] 12/14/2005 Depression [F32.A] 12/14/2005 Pain in joint, lower leg [M25.569] 12/14/2005 05/02/2022 ESOPHAGEAL REFLUX [K21.9] 02/01/2006 IMPAIRED FASTING GLUCOSE [R73.01] 02/01/2006 BENIGN NEOPLASM LG BOWEL [D12.6] 03/29/2006 INT HEMORRHOID W/O COMPL [K64.8] 03/29/2006 Hypertrophy of prostate with urinary obstructio*06/17/2008 Pain in joint, pelvic region and thigh [M25.559]09/16/2008 05/02/2022 Spinal stenosis, lumbar [M48.061] 05/19/2010 Disc degeneration, lumbar [M51.369] 06/25/2010 07/05/2016 Gait instability [R26.81] 06/25/2010 Coronary artery disease involving [place]*11/23/2010 Anemia [D64.9] 08/20/2013 Nontoxic multinodular goiter [E04.2] 12/12/2013 Gallbladder polyp [K82.4] 06/10/2014 07/05/2016 Cervicalgia [M54.2] 06/18/2014 Lumbar radiculopathy [M54.16] 07/29/2014 Cervical spondylosis [M47.812] 07/29/2014 Cervical strain [S16.1XXA] 07/29/2014 05/02/2022 Left hip pain [M25.552] 10/29/2014 05/02/2022 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] 02/04/2015 Hip pain [M25.559] 02/04/2015 05/02/2022 DDD (degenerative disc disease), lumbar [M51.36*06/08/2015 Spinal stenosis, lumbar region, with neurogenic*05/17/2016 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] 07/20/2017 CKD (chronic kidney disease) Stage 3, GFR 30-59*08/22/2017 04/27/2023 Tremor [R25.1] 07/27/2018 Vasovagal syncope [R55] 07/27/2018 REHAN on CPAP [G47.33] 07/27/2018 Primary osteoarthritis of right hip [M16.11] 07/27/2018 History of total right hip arthroplasty [Z96.64*08/08/2018 Low back pain [M54.50] 02/04/2019 WILY (generalized anxiety disorder) [F41.1] 03/04/2020 Hypertensive kidney disease with stage 3 chroni*05/02/2022 04/27/2023 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 (HCC) [I73.9] 11/03/2022 Type 2 diabetes mellitus without complication, *11/03/2022 06/02/2023 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 Normal [facility] CNOVon 04-30-2024 CNOV Office Visit (RUBEN ) RONY MONZON ([id number]) 1940 M [place] Date Time Provider Department 04/30/24 12:45 PM JESSY WELDON During your visit today, we recorded the following information about you: Pulse Blood pressure Weight 67/minute 146/81 96.8 kg Jessy Weldon PA-C 04/30/2024 1:28 PM Signed ESTABLISHED PATIENT VISIT Last visit: 01/26/[address] Strange ASSESSMENT/PLAN: 1. Lightheaded - ICD9: 780.4, ICD10: R42 (primary diagnosis) 2. Orthostatic hypotension - ICD9: 458.0, ICD10: I95.1 3. Recurrent falls - ICD9: V15.88, ICD10: R29.6 4. Weakness of both lower extremities - ICD9: 729.89, ICD10: R29.898 5. 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 Spinal stenosis of cervical region - ICD9: 723.0, ICD10: M48.02 7. Spinal stenosis of lumbar region, unspecified whether neurogenic 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 present - ICD9: 724.02, ICD10: M48.061 Patient with history of recurrent falls that I suspect are multifactorial including known spine disease as well as history of orthostatic hypotension. At this time, patient's primary complaint is lightheadedness and loss of balance or falls associated with position change of sitting to standing. Suspect due to orthostatic hypotension with drop in BP noted today with position change, but no change in HR remaining at ~60 BPM. Component of orthostatic hypotension could be decreased water intake and pt encouraged to try and drink more (instructions on appropriate intake provided). Also question if component of autonomic dysfunction associated with known C spine cord myelomalacia and/or neuropathy (small fiber). Before initiating therapy, and given cardiac history, would like opinion of human resource intern Dr. Arguello. Question if benefit in lowering blood pressure dosing including possible beta anderson to allow for cardiac response to position change. If felt BP meds should not be changed, then would like opinion in regards to starting Florinef. Pt does have compression stockings but does not like using - encouraged he try again. As for known spine disease, encouraged pt to follow up with his surgeons at [facility]. 8. History of stroke - ICD9: V12.54, ICD10: Z86.73 Patient with no clinical symptoms. Noted on brain imaging. On Plavix and statin. No additional recs at this time with goal BP <140/90 and goal glucose <140. 9. Headaches - ICD9: 784.0, ICD10: R51.9 Resolved. Landon Strange MD CHIEF COMPLAINT: follow up HISTORY OF PRESENT ILLNESS: Rony Monzon is a 83 year old male, There were no vitals taken for this visit. with a PMH significant for tremor, HTN, HLD, CAD, REHAN, DDD, depression, WILY, vasovagal syncope . Last saw Dr. Strange on 01/26/24 for LH, tremor, unsteadiness, falls. Likely multifactorial due to spine and orthostatic HOTN. Reached out to Dr. Arguello about decreasing BP meds, maybe start florinef. Patient presents with his for follow-up appointment. Notes that he has had some improvement since last appointment. Has a rollator and has not had a fall. Still having daily doses of lightheadedness and occasional episodes of presyncope. These improve instantly if he sits down. Also notes that with these lightheaded episodes she does get short of breath but again improves if she sits back down. Drinking about 4 glasses of water a day with a glass of milk, no tea or coffee and drinks a soda about twice a week. Notes that Dr. Saucedo did not want adjust his blood pressure medications as he does still have hypertension, blood pressure was 146/81 today. Has been wearing compression socks with minimal benefits, notes it is difficult to get them on. Tremor is about the same. Notes that his been very fatigued lately, feels generalized weakness as well. Again no falls, but is not very physically active. Notes that he primarily sits down all day, goes to the bathroom occasionally but his house is not very big. They did bring their treadmill up from the basement but he is only been on it a few times. No other new concerns or symptoms today. REVIEW OF SYSTEMS GENERAL:No weight loss, malaise or fevers. HEENT:Negative for frequent or significant headaches, No changes in hearing or vision, no nose bleeds or other nasal problems NECK:Negative for lumps, goiter, pain and significant neck swelling RESPIRATORY: Negative for cough, wheezing or shortness of breath. CARDIOVASCULAR: Negative for chest pain, leg swelling or palpitations. GASTROINTESTINAL: Negative for abdominal discomfort, blood in stools or black stools or change in bowel habits GENITOURINARY: No history of dysuria, frequency or incontinence MUSCULOSKELETAL: Negative for joint pain or swelling, back pain or muscle pain. NEUROLOGIC:Negative for focal numbness or weakness, headaches and dizziness or syncope, vision changes, speech/languag changes - EXCEPT that as per HP (more content not included)... Normal [facility] Josh 03-29-2024 DONN Telephone ([facility]) RONY MONZON ([id number]) 1940 M [place] Date Time Provider Department 03/29/24 GUMAROSCOTTY JANSENJUSTYNA JOHNSON During your visit today, we recorded the following information about you: Charlene Eckert RN 03/29/2024 3:21 PM Signed Received fax from [facility] requesting to hold patient's Plavix for 7 days. Procedure date is 04-12-24. Form given to provider for review. Charlene Eckert RN 03/29/2024 3:39 PM Addendum Spoke to Halima who recommended having this form filled out by Jessy Weldon PA-C or Dr. Strange. Halima has not seen this patient since since she no longer practices in [facility]. Sent form via fax to [facility] at [phone]. Nick Avila OCCA 04/01/2024 7:28 AM Signed Received form via fax. Placed on Abbie Weldon's desk for signature when she return to office 04/02. VINCENT Landeros Brittany L, MA 04/02/2024 4:07 PM Signed Form signed AND faxed to # provided on form. Scanned copy into patient's chart. Lakeisha Narvaez MA Allergies As of Date: 03/29/2024 Noted Allergy Reaction LYRICA (PREGABALIN) 08/01/2016 7 - Swelling Comments: B/L hand swelling NORFLEX (ORPHENADRINE CITRATE) 04/12/2016 8 - GI Upset VICODIN (HYDROCODONE-ACETAMINOP HE*12/04/2006 Comments: nightmares NEURONTIN (GABAPENTIN) 05/31/2016 7 - Swelling Comments: Feels that he does not have a true allergy to this medication. States he had swelling, not rash. Date Reviewed: 01/26/2024 Reviewed by: Landon Strange Jr., MD - Fully Assessed Reason for Visit: Request to hold anticoagulant [Other] Prescriptions as of 04/02/2024 - clopidogrel (PLAVIX) 75 mg tablet Take 1 tablet by mouth once daily. - FLUoxetine (PROZAC) 40 mg capsule Take 1 capsule by mouth once daily. - propranolol (INDERAL) 20 mg tablet Take 1 tablet by mouth two times a day. - cyclobenzaprine (FLEXERIL) 10 mg tablet Take 1 tablet by mouth three times a day as needed for muscle spasm. - amoxicillin (AMOXIL) 500 mg capsule 4 capsules 1 hours prior to dental procedure. - rosuvastatin (CRESTOR) 10 mg tablet Take 1 tablet by mouth daily at bedtime. - amLODIPine (NORVASC) 5 mg tablet Take 1 tablet by mouth two times a day. - oxyCODONE IR (ROXICODONE) 5 mg immediate release tablet EVERY 6 HOURS NEEDED - lisinopril (PRINIVIL) 10 mg tablet Take 1 tablet by mouth twice daily. Dr. Kramer - nitroglycerin sublingual (NITROSTAT) 0.4 mg SL tablet Dissolve 1 tablet under the tongue every 5 minutes as needed for chest pain. - acetaminophen (TYLENOL EXTRA STRENGTH) 500 mg tablet Take 1 tablet by mouth every 6 hours as needed for pain. - multivitamin tablet Take 1 tablet by mouth once daily. Meds Comments as of 11/02/2021: Problem List As Of Date 03/29/2024 Noted Resolved BENIGN HYPERTENSION [I10] 12/14/2005 Hyperlipidemia, mixed [E78.2] 12/14/2005 Depression [F32.A] 12/14/2005 Pain in joint, lower leg [M25.569] 12/14/2005 05/02/2022 ESOPHAGEAL REFLUX [K21.9] 02/01/2006 IMPAIRED FASTING GLUCOSE [R73.01] 02/01/2006 BENIGN NEOPLASM LG BOWEL [D12.6] 03/29/2006 INT HEMORRHOID W/O COMPL [K64.8] 03/29/2006 Hypertrophy of prostate with urinary obstructio*06/17/2008 Pain in joint, pelvic region and thigh [M25.559]09/16/2008 05/02/2022 Spinal stenosis, lumbar [M48.061] 05/19/2010 Disc degeneration, lumbar [M51.369] 06/25/2010 07/05/2016 Gait instability [R26.81] 06/25/2010 Coronary artery disease involving [place]*11/23/2010 Anemia [D64.9] 08/20/2013 Nontoxic multinodular goiter [E04.2] 12/12/2013 Gallbladder polyp [K82.4] 06/10/2014 07/05/2016 Cervicalgia [M54.2] 06/18/2014 Lumbar radiculopathy [M54.16] 07/29/2014 Cervical spondylosis [M47.812] 07/29/2014 Cervical strain [S16.1XXA] 07/29/2014 05/02/2022 Left hip pain [M25.552] 10/29/2014 05/02/2022 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] 02/04/2015 Hip pain [M25.559] 02/04/2015 05/02/2022 DDD (degenerative disc disease), lumbar [M51.36*06/08/2015 Spinal stenosis, lumbar region, with neurogenic*05/17/2016 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] 07/20/2017 CKD (chronic kidney disease) Stage 3, GFR 30-59*08/22/2017 04/27/2023 Tremor [R25.1] 07/27/2018 Vasovagal syncope [R55] 07/27/2018 REHAN on CPAP [G47.33] 07/27/2018 Primary osteoarthritis of right hip [M16.11] 07/27/2018 History of total right hip arthroplasty [Z96.64*08/08/2018 Low back pain [M54.50] 02/04/2019 WILY (generalized anxiety disorder) [F41.1] 03/04/2020 Hypertensive kidney disease with stage 3 chroni*05/02/2022 04/27/2023 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 (HCC) [I73.9] 11/03/2022 Type 2 diabetes mellitus without complication, *11/03/2022 06/02/2023 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 Rate : 060 BPM Atrial Rate : 060 BPM P-R Int : 204 ms QRS Dur : 088 ms QT Int : 408 ms P-R-T Axes : 063 -01 044 degrees QTc Int : 408 ms Normal sinus rhythm Normal ECG Confirmed by Haroon Dewitt ([id number]), editorial manager ETHAN SALAS ([id number]) on 02/12/2024 11:01:53 AM Referred By: MARVA/AMMY' Confirmed By:Haroon Dewitt 02/12/24 1101 Date Haroon Dewitt MD CC: Dr. David Doll MD; Dr. George Vaughan MD Signed Normal [facility] Basic Metabolic Profile (BMP )on 02-10-2024 BUN/CRE 12.8 RATIO Normal 10-20 [facility] Comment on above: Order Comment: 1Y Performed By: #### L 100.0100, L500.2500, L501.5425 ####[facility] [address] [place], [address] CA,Total 9.2 mg/dL Normal 8.5-10.1 [facility] Comment on above: Order Comment: 1Y Performed By: #### L 100.0100, L500.2500, L501.5425 ####[facility] [address] [place], [address] Chloride [Moles/Vol] 106 mmol/L Normal 98-107 [facility] Comment on above: Order Comment: 1Y Performed By: #### L 100.0100, L500.2500, L501.5425 ####[facility] [address] [place], [address] CO2 [Moles/Vol] 28.0 mmol/L Normal 21.0-32.0 [facility] Comment on above: Order Comment: 1Y Performed By: #### L 100.0100, L500.2500, L501.5425 ####[facility] [address] [place], [address] Creatinine [Mass/Vol] 1.09 mg/dL Normal 0.70-1.30 [facility] Comment on above: Order Comment: 1Y Result Comment: The validity of the calculated GFR GFRAA in patients over 70 years has not been determined. Clinical correlation is essential. Performed By: #### L 100.0100, L500.2500, L501.5425 ####[facility] [address] [place], [address] ECRCL 64.29 ml/min Normal [facility] Comment on above: Order Comment: 1Y Performed By: #### L 100.0100, L500.2500, L501.5425 ####[facility] [address] [place], [address] EST GFR - AA 83 mL/min Normal >60 [facility] Comment on above: Order Comment: 1Y Result Comment: Afri can [place] GFR Calc Performed By: #### L 100.0100, L500.2500, L501.5425 ####[facility] [address] [place], [address] GAP 5 Normal 5-15 [facility] Comment on above: Order Comment: 1Y Performed By: #### L 100.0100, L500.2500, L501.5425 ####[facility] [address] [place], [address] GFR/1.73 sq M.predicted among non-blacks MDRD (S/P/Bld) [Vol rate/Area] 69 mL/min/{1.73_m2} Normal >60 [facility] Comment on above: Order Comment: 1Y Result Comment: Non- GFR Calc Performed By: #### L 100.0100, L500.2500, L501.5425 ####[facility] [address] [place], [address] Glucose [Mass/Vol] 160 mg/dL High 74-106 [facility] Comment on above: Order Comment: 1Y Result Comment: Fast ing Glucose result greater than or equal to 126 mg/dL suggests DIABETES MELLITUS per A.D.A. criteria. Performed By: #### L 100.0100, L500.2500, L501.5425 ####[facility] [address] [place], [address] Potassium [Moles/Vol] 4.3 mmol/L Normal 3.5-5.1 [facility] Comment on above: Order Comment: 1Y Performed By: #### L 100.0100, L500.2500, L501.5425 ####[facility] [address] [place], [address] Sodium [Moles/Vol] 139 mmol/L Normal 136-145 [facility] Comment on above: Order Comment: 1Y Performed By: #### L 100.0100, L500.2500, L501.5425 ####[facility] [address] [place], [address] Urea nitrogen [Mass/Vol] 14 mg/dL Normal 7-18 [facility] Comment on above: Order Comment: 1Y Performed By: #### L 100.0100, L500.2500, L501.5425 ####[facility] [address] [place], [address] CBC W/Diff, Automatedon 09-2 -2023 Absolute Lymph 1.06 X10 3/uL Normal 0.83-4.51 [facility] Comment on above: Performed By: #### L 100.0100, L500.2500, L501.5425 ####[facility] [address] [place], [address] Absolute Neut 5.9 X10 3/uL Normal 2.0-7.7 [facility] Comment on above: Performed By: #### L 100.0100, L500.2500, L501.5425 ####[facility] [address] [place], [address] Basophils/100 WBC (Bld) 1.0 % Normal 0-1 [facility] Comment on above: Performed By: #### L 100.0100, L500.2500, L501.5425 ####[facility] [address] [place], [address] Eosinophils/100 WBC (Bld) 4.2 % Normal 0-5 [facility] Comment on above: Performed By: #### L 100.0100, L500.2500, L501.5425 ####[facility] [address] [place], [address] Erythrocyte distribution width (RBC) [Ratio] 12.8 % Normal 11.6-14.6 [facility] Comment on above: Performed By: #### L 100.0100, L500.2500, L501.5425 ####[facility] [address] [place], [address] Hematocrit (Bld) [Volume fraction] 36.1 % Low 40-54 [facility] Comment on above: Performed By: #### L 100.0100, L500.2500, L501.5425 ####[facility] [address] [place], [address] Hemoglobin (Bld) [Mass/Vol] 12.0 g/dL Low 13.0-16.5 [facility] Comment on above: Performed By: #### L 100.0100, L500.2500, L501.5425 ####[facility] [address] [place], [address] IG% 0.200 Normal 0.0-0.9 [facility] Comment on above: Result Comment: IG% - Immature Granulocytes (promyelocytes, myelocytes and metamyelocytes) > 1% indicates that a LEFT SHIFT is Present. Performed By: #### L 100.0100, L500.2500, L501.5425 ####[facility] [address] [place], [address] Lymphocytes/100 WBC (Bld) 12.9 % Low 19-41 [facility] Comment on above: Performed By: #### L 100.0100, L500.2500, L501.5425 ####[facility] [address] [place], [address] MCH (RBC) [Entitic mass] 31.1 pg Normal 27.0-32.0 [facility] Comment on above: Performed By: #### L 100.0100, L500.2500, L501.5425 ####[facility] [address] [place], [address] MCHC (RBC) [Mass/Vol] 33.2 g/dL Normal 32-36 [facility] Comment on above: Performed By: #### L 100.0100, L500.2500, L501.5425 ####[facility] [address] [place], [address] MCV (RBC) [Entitic vol] 93.5 fL Normal 80-94 [facility] Comment on above: Performed By: #### L 100.0100, L500.2500, L501.5425 ####[facility] [address] [place], [address] Monocytes/100 WBC (Bld) 9.8 % Normal 0-10 [facility] Comment on above: Performed By: #### L 100.0100, L500.2500, L501.5425 ####[facility] [address] [place], [address] Neutrophils/100 WBC (Bld) 71.9 % High 47-70 [facility] Comment on above: Performed By: #### L 100.0100, L500.2500, L501.5425 ####[facility] [address] [place], [address] Nucleated RBC (Bld) [#/Vol] 0 10*3/uL Normal 0-5 [facility] Comment on above: Performed By: #### L 100.0100, L500.2500, L501.5425 ####[facility] [address] [place], [address] Platelet mean volume (Bld) [Entitic vol] 9.3 fL Normal 6.2-12.0 [facility] Comment on above: Performed By: #### L 100.0100, L500.2500, L501.5425 ####[facility] [address] [place], [address] Platelets (Bld) [#/Vol] 317 10*3/uL Normal 150-450 [facility] Comment on above: Performed By: #### L 100.0100, L500.2500, L501.5425 ####[facility] [address] [place], [address] RBC (Bld) [#/Vol] 3.86 10*6/uL Low 4.6-6.2 [facility] Comment on above: Performed By: #### L 100.0100, L500.2500, L501.5425 ####[facility] [address] [place], [address] RDW SD 43.8 fl Normal 35.1-43.9 [facility] Comment on above: Performed By: #### L 100.0100, L500.2500, L501.5425 ####[facility] [address] [place], [address] WBC (Bld) [#/Vol] 8.2 10*3/uL Normal 4.4-11.0 [facility] Comment on above: Performed By: #### L 100.0100, L500.2500, L501.5425 ####[facility] [address] [place], [address] Chest 1 View (Portable)on Chest 1 View (Portable) [facility] Imaging Services [address] [place] [address] Chest 1 View (Portable) MR#: [id number] Acct: [id number] Name: RONY MONZON Rep #: [id number] : 1940 M 83 From: Bob Dawson MD PCP: Dr. George Vaughan MD Status: DEP ER Study: Chest 1 View (Portable) Date of Exam: 02/10/24 Exam# [id number] Ordering Dr: [place] [id number] EXAM: XR CHEST, 1 VIEW CLINICAL INDICATION: Chest pain. TECHNIQUE: Frontal view of the chest. COMPARISON: 04/16/2023. FINDINGS: LUNGS AND PLEURAL SPACES: Unremarkable. No consolidation or edema. No pneumothorax. No effusion. HEART: Unremarkable. Cardiac silhouette not enlarged. MEDIASTINUM: Central airways and mediastinal contour are unremarkable. BONES/JOINTS: Unremarkable. No acute fracture. SOFT TISSUES: Unremarkable. RAD/Chest 1 View (Portable) IMPRESSION: No radiographic evidence of acute cardiopulmonary disease and unchanged when compared to 04/16/2023. Electronically Signed: Bob Dawson MD at 13:54 EDT , CC: Dr. David Doll MD; Dr. George Vaughan MD Research Soil Scientist: Signed Normal [facility] Emergency Department Summary on 02-10-2024 Emergency Department Summary [facility] Medical Records Department [address] [place] [address] Emergency Department Summary 02/10/24 MR#: [id number] Acct: [id number] Name: RONY MONZON Rep #: [id number] : 1940 83 From: David Doll MD PCP: Dr. George Vaughan MD Status:DEP ER Location: ED HPI History of Present Illness Chief Complaint: Chest Pain Informant: patient Onset/Context/Timing Onset: Today and Hours Activity at onset: gradual Timing: Continuous Quality: Positive for Aching Location: - (Across his chest and back. Also epigastric pain.) Current Severity: Mild Maximum Severity: Mild Worsened By: Nothing Relieved By: Nothing Associated Symptoms: Positive for Nausea and Dyspnea Narrative Narrative: 83-year-old male history of CAD with 1 cardiac stent, anemia, hypertension, diabetes and currently on Plavix. States that several hours ago around 10:30 AM he just really was not feeling well said he had mild nausea this morning and epigastric abdominal pain it is also known his chest and upper back. He denies any recent exertional chest pain or exertional dyspnea. Denies any fever or chills. Said he has a chronic cough that is not new or different. Also states he believes he has had black stool last 2 days. He has no history of GI bleed. No hematemesis. Prior Similar Symptoms: No Recent Illness/Hospitalization : No CVD Risk Factors: Positive for Hypertension PE Risk Factors: Negative for Recent Travel/Surgery, Recent Immobilization, Prior DVT or PE, Cancer or OCP + Smoking + >/=35 TAD Risk Factors: Negative for Marfan's Syndrome PFSH PFSH Medical History COVID-19 ( 01/18/22) Sepsis due to urinary tract infection History of transesophageal echocardiography (VIOLETTE) Wears hearing aid Wears glasses Depression Anxiety Walker as ambulation aid Arthritis Indwelling urethral catheter present Low iron Easy bruising History of hiatal hernia Former smoker Chest pain History of tilt table evaluation Cardiology follow-up encounter History of echocardiogram History of stress test Enterococcus UTI H/O appendicitis Presence of stent in coronary artery ( 09/08/10) Pure hypercholesterolemia Essential hypertension PTSD (post-traumatic stress disorder) Pulmonary hypertension Restless legs syndrome (RLS) REHAN (obstructive sleep apnea) Syncope and collapse Dizziness and giddiness Fatigue Shortness of breath Dyspnea Precordial chest pain 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 Atherosclerotic heart disease of [place] coronary artery without angina pectoris 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 Neck pain on left side Benign prostatic hypertrophy Coronary artery disease Home Medications ???Medication ???Instructions ???Recorded ???Last Taken ???Type fluoxetine 40 mg capsule (Prozac) 40 mg PO DAILY 07/04/18 07/13/21 History acetaminophen 500 mg tablet 500 mg PO Q6H PRN Pain 06/17/20 07/13/21 History (Tylenol Extra Strength) amlodipine 5 mg tablet 5 mg PO BID 03/17/21 07/14/21 History multivitamin 1 tab PO DAILY 02/08/22 Unknown History clopidogrel 75 mg tablet 75 mg PO DAILY 05/05/22 Unknown History nitroglycerin 0.4 mg sublingual 0.4 mg sublingual Q5-15M PRN chest 05/26/22 Unknown Rx tablet pain #25 tabs rosuvastatin 10 mg tablet 10 mg PO QHS #90 tabs 11/24/22 Unknown Rx lisinopril 10 mg tablet See Rx Instructions .Route 03/02/23 Unknown Rx .COMPLEX #180 tabs oxycodone 5 mg tablet 5 mg PO Q6H PRN pain 04/16/23 Unknown History propranolol 20 mg tablet 30 mg PO BID 04/16/23 Unknown History Allergy/AdvReac Type Severity Reaction Status Date / Time hydrocodone (From Vicodin) Allergy Other Verified 12/11/23 09:59 orphenadrine Allergy Unknown Verified 12/11/23 09:59 pregabalin Allergy Swelling Verified 12/11/23 09:59 atorvastatin (From Lipitor) AdvReac Severe Intolerance Verified 12/11/23 09:59 ,Myalgias Family History Father CVA (cerebral vascular accident) Mother Cardiomegaly Brother CAD (coronary artery disease) Hx CABG and valve replacement Diabetes Brother History of heart valve replacement Brother Rheumatic fever Sister Hypertension Aortic aneurysm H/O aortic valve replacement Brother Cancer bladder Brother Thyroid disorder Surgical History S/P TURP History of colonoscopy H/O heart artery stent History of right hip replacement Presence of coronary angioplasty implant and graft ( 09/08/10) S/P right knee arthroscopy History of appendectomy hx cervical stenosis History of vasectomy History of hydrocelectomy Social History household members: spouse housing: house Smoking Status: F (more content not included)... Normal [facility] L501.5425on 02-10-2024 TROPONIN-I HS 6 pg/mL Normal 3.0-78.0 [facility] Comment on above: Order Comment: 1Y Result Comment: Plea se Note: New Test Units and Gender Specific Reference Ranges. For more information see Policy Stat Procedure [place] High Sensitivity Troponin (TNIH) and attachments. Performed By: #### L 100.0100, L500.2500, L501.5425 ####[facility] [id number] [place], [address] CNOVon 01-26-2024 CNOV Office Visit (RUBEN ) RONY MONZON ([id number]) 1940 M [facility] Date Time Provider Department 01/26/24 10:40 AM LANDON STRANGE JR During your visit today, we recorded the following information about you: Pulse Blood pressure Weight 62/minute 136/78 97.7 kg Landon Strange Jr., MD 01/26/2024 12:29 PM Signed ESTABLISHED PATIENT VISIT CHIEF COMPLAINT: Follow Up (first time seeing patient, but previously seen in dept). HISTORY OF PRESENT ILLNESS: Rony Monzon is a 83 year old male, BMI 28.42 kg/m2 with a PMH significant for and per last office visit with Julio BAIRD on 10/18/23: 1. Tremor of right hand - ICD9: 781.0, ICD10: R25.1 (primary diagnosis) Tremor stable, no significant change. Not present at rest on exam but present bilateral upper extremities with intention, slightly worse on the right. Normal tone of the upper extremities. However, patient with some decreased rapid alternating movements on the right upper and lower extremity and states the symptoms feel slower on the side. Patient also reporting some chronic constipation, but this is improved after stopping his oxycodone. Reporting some hypophonia, orthostatic hypotension and handwriting change. Unclear etiology for symptoms but will have patient follow-up with physician due to concerns of possible parkinsonism. Encouraged conservative therapy for tremor including wrist weights and continuing propranolol as prescribed, 20 mg twice daily. 2. Frequent falls - ICD9: V15.88, ICD10: R29.6 3. Spinal stenosis of cervical region - ICD9: 723.0, ICD10: M48.02 4. Spinal stenosis of lumbar region, unspecified whether neurogenic 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 present - ICD9: 724.02, ICD10: M48.061 Patient with 3 falls since last appointment, and patient attributes this to weakness in his legs, 1 fall his left knee gave out and with 1 fall his right hip gave out. Sustained a left foot fracture from the fall in July and has been recovering from this. Falls are likely multifactorial, concern for possible parkinsonism as noted above but also patient with some cervical stenosis, followed with neurosurgery and recently had lumbar surgery last winter. does note that he was weak prior to the surgery and feels deconditioning may be playing a role as well to the falls. Falls are never related to lightheadedness or syncope. 5. Lightheadedness - ICD9: 780.4, ICD10: R42 Patient still with occasional lightheadedness, follows with cardiology for orthostatic hypotension. Encouraged conservative therapy, no presyncope or syncope. 6. Cerebrovascular accident (CVA), unspecified mechanism (HCC) - ICD9: 434.91, ICD10: I63.9 No new stroke since last appointment, patient compliant with Plavix 75 mg daily and follows with primary care for risk factor management. Discussed risk factors including blood sugar, blood pressure and cholesterol. Recommendations were given to patient. Patient without any new neurologic symptoms that would warrant additional workup at this time. 7. Headaches - ICD9: 784.0, ICD10: R51.9 No headaches since last appointment, stable. 8. Orthostatic hypotension - ICD9: 458.0, ICD10: I95.1 Sees cardiology. 9. Myelomalacia of cervical cord (HCC) - ICD9: 336.8, ICD10: G95.89 Followed by neurosurgery. Patient agreeable to treatment plan of care at this time, questions were answered. Due to complexity of case and persistent falls, will have patient follow-up with physician, Dr. Strange for further evaluation, 60-minute slot as patient has not been evaluated by Dr. Strange in the past. Patient reports had L spine surgery 1 year ago that was supposed to help him walk but did not do much. Was told it would be 6-12 months to have benefit. Pt feels that the RLE is now getting numb over the last couple months. Surgery completed at [facility]. Feels like arms are working ok. Known history of mylomalacia in 2000 per pt. Leg weakness started couple years ago. Last MRI C spine on 12/01/2021 per report: 1. 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 STABLE POST SURGICAL CHANGES FROM LAMINECTOMIES 3. NO HIGH-GRADE CENTRAL STENOSIS 4. FORAMINAL STENOSIS REMAINS GREATEST AT SEVERE RIGHT C5-6 When asked about falls states feels like the leg goes out (referring to the left leg). Has had falls both walking and when getting up from a chair. feels walking and then something gives out. No residual deficits from stroke -- I never knew I had them. When asked about tremors, states he has essential tremor. Very infrequent headaches. Reports handwriting is more sloppy and perhaps smaller. Still has lightheadedness with positional changes. Pt now following with Dr. Arguello through cardiology. worries that patient is dehydrated. Patient's biggest concern is the lightheadedness. Sitting BP 136/78; HR 61 Standing BP 119/75 HR 65 REVIEW OF SYSTEMS GENERAL:No delia (more content not included)... Normal [facility] XR Foot - left AP and Latera l and obliqueon 08-11-2023 IMPRESSION: Nondisplaced fracture of the base of the left fifth metatarsal Research Soil Scientist: KENTRELL Transcribe Date/Time: Aug 11 2023 1:21P Dictated by : KRISTAN RUIZ MD This examination was interpreted and the report reviewed and electronically signed by: KRISTAN RUIZ MD on Aug 11 2023 1:23PM [facility] DIVISION OF RADIOLOGY * * *Final Report* * * DATE OF EXAM: Aug 11 2023 1:08PM WOX [id number] - XR FOOT 3V AP/LAT/OBL LT / PROCEDURE REASON: multiple diagnoses * * * * Physician Interpretation * * * * EXAMINATION: XR FOOT 3V AP/LAT/OBL LT CLINICAL HISTORY: Left foot pain Technique: XR FOOT 3V AP/LAT/OBL LT -- LEFT with 3 views on 3 images Comparison: None RESULT: Nondisplaced fracture of the base of the left fifth metatarsal. No dislocation. Joint spaces are maintained. Plantar and posterior calcaneal spurs. DIVISION [facility]OLOGY [facility] * * *Final Report* * * DATE OF EXAM: Aug 11 2023 1:08PM WOX [id number] - XR FOOT 3V AP/LAT/OBL LT / PROCEDURE REASON: multiple diagnoses * * * * Physician Interpretation * * * * EXAMINATION: XR FOOT 3V AP/LAT/OBL LT CLINICAL HISTORY: Left foot pain Technique: XR FOOT 3V AP/LAT/OBL LT -- LEFT with 3 views on 3 images Comparison: None RESULT: Nondisplaced fracture of the base of the left fifth metatarsal. No dislocation. Joint spaces are maintained. Plantar and posterior calcaneal spurs. IMPRESSION IMPRESSION: Nondisplaced fracture of the base of the left fifth metatarsal Research Soil Scientist: [facility] Transcribe Date/Time: Aug 11 2023 1:21P Dictated by : KRISTAN RUIZ MD This examination was interpreted and the report reviewed and electronically signed by: KRISTAN RUIZ MD on Aug 11 2023 1:23PM [facility] Radiology Study observation (narrative) Indio miranda [facility] XR Foot - left AP and Latera l and obliqueOrdered By: Ccf Provider on 08-11-2023 [facility] NM Biliary ducts and Gallbla dder Views for patency of biliary structures and ejection fraction W sincalide and W radionuclide [place] 05-26-2023 [facility] Absolute lymphocyte countOrd ered By: Nini Brown on 04-18-2023 Lymphocytes Auto (Unsp spec) [#/Vol] 1.11 10*3/uL 0.83-4.51 [facility] Basophil percentageOrdered B y: Nini Brown on 04-18-2023 Basophils/100 WBC (Bld) 0.9 % 0-1 [facility] Chloride [Moles/Vol] 104 mmol/L 98-107 [facility] Eosinophils/100 WBC (Bld) 3.5 % 0-5 [facility] Glucose [Mass/Vol] 122 mg/dL 74-106 [facility] Comment on above: Fasting Glucose resu lt from 100 to 125 mg/dL suggests IMPAIRED HOMEOSTASIS per A.D.A. criteria. Neutrophils (Bld) [#/Vol] 5.5 10*3/uL 2.0-7.7 [facility] Neutrophils/100 WBC (Bld) 71.2 % 47-70 [facility] Potassium [Moles/Vol] 3.8 mmol/L 3.5-5.1 [facility] Sodium [Moles/Vol] 135 mmol/L 136-145 [facility] WBC (Bld) [#/Vol] 7.8 10*3/uL 4.4-11.0 [facility] Blood erythrocytes count (nu mber/volume)Ordered By: Nini Brown on 04-18-2023 RBC (Bld) [#/Vol] 3.62 10*6/uL 4.6-6.2 [facility] Blood hemoglobin measurement (mass/volume)Ordered By: Nini Brown on 04-18-2023 Hemoglobin (Bld) [Mass/Vol] 11.0 g/dL 13.0-16.5 [facility] Blood lymphocytes/100 leukoc ytesOrdered By: Nini Brown on 04-18-2023 Lymphocytes/100 WBC (Bld) 14.3 % 19-41 [facility] Blood monocytes/100 leukocyt esOrdered By: Nini Brown on 04-18-2023 Monocytes/100 WBC (Bld) 9.8 % 0-10 [facility] Blood platelet mean volumeOr dered By: Nini Brown on 04-18-2023 Platelet mean volume (Bld) [Entitic vol] 10.0 fL 6.2-12.0 [facility] Determination of erythrocyte mean corpuscular volume (MCV)Ordered By: Nini Brown on 04-18-2023 MCV (RBC) [Entitic vol] 94.8 fL 80-94 [facility] Hematocrit Auto (Bld) [Volum e fraction]Ordered By: Nini Brown on 04-18-2023 Hematocrit (Bld) [Volume fraction] 34.3 % 40-54 [facility] Laboratory - Chemistry and C hemistry - challengeOrdered By: Nini Brown on 04-18-2023 CO2 [Moles/Vol] 29.0 mmol/L 21.0-32.0 [facility] Urea nitrogen/Creatinine [Mass ratio] 15.1 mg/mg 10-20 [facility] Laboratory - Hematology and Cell countsOrdered By: Nini Brown on 04-18-2023 Erythrocyte distribution width (RBC) [Entitic vol] 44.1 fL 35.1-43.9 [facility] Erythrocyte distribution width (RBC) [Ratio] 12.5 % 11.6-14.6 [facility] Immature granulocytes/100 WBC (Bld) 0.300 % 0.0-0.9 [facility] Comment on above: IG% - Immature Granu locytes (promyelocytes, myelocytes and metamyelocytes) > 1% indicates that a LEFT SHIFT is Present. MCH (RBC) [Entitic mass] 30.4 pg 27.0-32.0 [facility] Nucleated RBC/100 WBC (Bld) [Ratio] 0 % 0-5 [facility] MCHC Auto (RBC) [Mass/Vol]Or dered By: Nini Brown on 04-18-2023 MCHC (RBC) [Mass/Vol] 32.1 g/dL 32-36 [facility] No Panel InformationOrdered By: Nini Brown on 04-18-2023 Estimated Creatinine Clearance Calc 66.13 ml/min [facility] Estimated GFR (MDRD) Amer 93 mL/min >60 [facility] Comment on above: GFR Calc Estimated GFR (MDRD) Non-Af Amer 77 mL/min >60 [facility] Comment on above: Non- GFR Calc Platelets bldOrdered By: La Brown on 04-18-2023 Platelets (Bld) [#/Vol] 346 10*3/uL 150-450 [facility] Serum or plasma calcium obdulia urement (mass/volume)Ordered By: Nini Brown on 04-18-2023 Calcium [Mass/Vol] 8.9 mg/dL 8.5-10.1 [facility] Serum or plasma creatinine m easurement (mass/volume)Ordered By: Nini Brown on 04-18-2023 Creatinine [Mass/Vol] 0.99 mg/dL 0.70-1.30 [facility] Comment on above: The validity of the calculated GFR & GFRAA in patients over 70 years has not been determined. Clinical correlation is essential. Serum or plasma urea nitroge n measurement (mass/volume)Ordered By: Nini Brown on 04-18-2023 Urea nitrogen [Mass/Vol] 15 mg/dL 7-18 [facility] Thin prep Papanicolaou smear with manual screeningOrdered By: Nini Brown on 04-18-2023 Thin prep Papanicolaou smear with manual screening 2 5-15 [facility] Basophil percentageOrdered B y: Juan Pike on 04-17-2023 Basophil percentage 3.8 mg/dL 2.5-4.9 [facility] Bilirubin [Mass/Vol] 0.30 mg/dL 0.20-1.00 [facility] Comment on above: For patients on eltr ombopag therapy, use of Dimension [place] TBIL is not recommended. Protein [Mass/Vol] 6.5 g/dL 6.4-8.2 [facility] Direct bilirubinOrdered By: Juan Pike on 04-17-2023 Bilirubin.direct [Mass/Vol] 0.09 mg/dL 0.00-0.30 [facility] INR in Blood by Coagulation assayOrdered By: Juan Pike on 04-17-2023 INR Coag (Bld) [Relative time] 1.1 {INR} [facility] Laboratory - Chemistry and C hemistry - challengeOrdered By: Juan Pike on 04-17-2023 ALP [Catalytic activity/Vol] 102 U/L 45-117 [facility] ALT [Catalytic activity/Vol] 20 U/L 16-61 [facility] Globulin (S) [Mass/Vol] 3.6 g/dL 2.2-4.2 [facility] Magnesium [Mass/Vol] 1.9 mg/dL 1.6-2.6 [facility] Laboratory - CoagulationOrde red By: Juan Pike on 04-17-2023 PT Coag (PPP) [Time] 14.1 s 11.7-14.9 [facility] Serum or plasma albumin obdulia urement (mass/volume)Ordered By: Juan Pike on 04-17-2023 Albumin [Mass/Vol] 2.9 g/dL 3.2-5.0 [facility] Serum or plasma albumin/glob ulin mass ratioOrdered By: Juan Pike on 04-17-2023 Albumin/Globulin [Mass ratio] 0.8 {ratio} 0.9-2.4 [facility] Thin prep Papanicolaou smear with manual screeningOrdered By: Juan Pike on 04-17-2023 Thin prep Papanicolaou smear with manual screening 17 U/L 15-37 [facility] Absolute lymphocyte countOrd ered By: Zeina Larios on 04-16-2023 Lymphocytes Auto (Unsp spec) [#/Vol] 1.01 10*3/uL 0.83-4.51 [facility] Basophil percentageOrdered B y: Zeina Larios on 04-16-2023 Basophils/100 WBC (Bld) 1.1 % 0-1 [facility] Chloride [Moles/Vol] 101 mmol/L 98-107 [facility] Eosinophils/100 WBC (Bld) 3.1 % 0-5 [facility] Glucose [Mass/Vol] 223 mg/dL 74-106 [facility] Comment on above: Glucose result great er than or equal to 200 mg/dLsuggests DIABETES MELLITUS per A.D.A. criteria. Neutrophils (Bld) [#/Vol] 5.7 10*3/uL 2.0-7.7 [facility] Neutrophils/100 WBC (Bld) 76.4 % 47-70 [facility] Potassium [Moles/Vol] 4.9 mmol/L 3.5-5.1 [facility] Sodium [Moles/Vol] 135 mmol/L 136-145 [facility] WBC (Bld) [#/Vol] 7.4 10*3/uL 4.4-11.0 [facility] Blood erythrocytes count (nu mber/volume)Ordered By: Zeina Larios on 04-16-2023 RBC (Bld) [#/Vol] 3.77 10*6/uL 4.6-6.2 [facility] Blood hemoglobin measurement (mass/volume)Ordered By: Zeina Larios on 04-16-2023 Hemoglobin (Bld) [Mass/Vol] 12.1 g/dL 13.0-16.5 [facility] Blood lymphocytes/100 leukoc ytesOrdered By: Zeina Larios on 04-16-2023 Lymphocytes/100 WBC (Bld) 13.6 % 19-41 [facility] Blood monocytes/100 leukocyt esOrdered By: Zeina Larios on 04-16-2023 Monocytes/100 WBC (Bld) 5.5 % 0-10 [facility] Blood platelet mean volumeOr dered By: Zeina Larios on 04-16-2023 Platelet mean volume (Bld) [Entitic vol] 9.5 fL 6.2-12.0 [facility] Determination of erythrocyte mean corpuscular volume (MCV)Ordered By: Zeina Larios on 04-16-2023 MCV (RBC) [Entitic vol] 96.0 fL 80-94 [facility] Hematocrit Auto (Bld) [Volum e fraction]Ordered By: Zeina Larios on 04-16-2023 Hematocrit (Bld) [Volume fraction] 36.2 % 40-54 [facility] Laboratory - Chemistry and C hemistry - challengeOrdered By: Zeina Larios on 04-16-2023 CO2 [Moles/Vol] 29.0 mmol/L 21.0-32.0 [facility] Urea nitrogen/Creatinine [Mass ratio] 9.8 mg/mg 10-20 [facility] Laboratory - Hematology and Cell countsOrdered By: Zeina Larios on 04-16-2023 Erythrocyte distribution width (RBC) [Entitic vol] 45.0 fL 35.1-43.9 [facility] Erythrocyte distribution width (RBC) [Ratio] 12.8 % 11.6-14.6 [facility] Immature granulocytes/100 WBC (Bld) 0.300 % 0.0-0.9 [facility] Comment on above: IG% - Immature Granu locytes (promyelocytes, myelocytes and metamyelocytes) > 1% indicates that a LEFT SHIFT is Present. MCH (RBC) [Entitic mass] 32.1 pg 27.0-32.0 [facility] Nucleated RBC/100 WBC (Bld) [Ratio] 0 % 0-5 [facility] MCHC Auto (RBC) [Mass/Vol]Or dered By: Zeina Larios on 04-16-2023 MCHC (RBC) [Mass/Vol] 33.4 g/dL 32-36 [facility] No Panel InformationOrdered By: Zeina Larios on 04-16-2023 Troponin I High Sensitivity 6 pg/mL 3.0-78.0 [facility] Comment on above: Please Note: New Abril t Units and Gender Specific Reference Ranges. For more information see Policy Stat Procedure [place] High Sensitivity Troponin (TNIH) and attachments. Estimated Creatinine Clearance Calc 58.46 ml/min [facility] Estimated GFR (MDRD) Amer 81 mL/min >60 [facility] Comment on above: GFR Calc Estimated GFR (MDRD) Non-Af Amer 67 mL/min >60 [facility] Comment on above: Non- GFR Calc Platelets bldOrdered By: Elizabeth Larios on 04-16-2023 Platelets (Bld) [#/Vol] 365 10*3/uL 150-450 [facility] Serum or plasma calcium obdulia urement (mass/volume)Ordered By: Zeina Larios on 04-16-2023 Calcium [Mass/Vol] 9.5 mg/dL 8.5-10.1 [facility] Serum or plasma creatinine m easurement (mass/volume)Ordered By: Zeina Larios on 04-16-2023 Creatinine [Mass/Vol] 1.12 mg/dL 0.70-1.30 [facility] Comment on above: The validity of the calculated GFR & GFRAA in patients over 70 years has not been determined. Clinical correlation is essential. Serum or plasma urea nitroge n measurement (mass/volume)Ordered By: Zeina Larios on 04-16-2023 Urea nitrogen [Mass/Vol] 11 mg/dL 7-18 [facility] Thin prep Papanicolaou smear with manual screeningOrdered By: Zeina Larios on 04-16-2023 Thin prep Papanicolaou smear with manual screening 5 5-15 [facility] Absolute lymphocyte countOrd ered By: Claire Hines on 03-13-2023 Lymphocytes Auto (Unsp spec) [#/Vol] 1.25 10*3/uL 0.83-4.51 [facility] Basophil percentageOrdered B y: Claire Hines on 03-13-2023 Basophils/100 WBC (Bld) 0.8 % 0-1 [facility] Bilirubin [Mass/Vol] 0.40 mg/dL 0.20-1.00 [facility] Comment on above: For patients on eltr ombopag therapy, use of Dimension [place] TBIL is not recommended. Chloride [Moles/Vol] 104 mmol/L 98-107 [facility] Eosinophils/100 WBC (Bld) 2.7 % 0-5 [facility] Glucose [Mass/Vol] 98 mg/dL 74-106 [facility] Neutrophils (Bld) [#/Vol] 7.9 10*3/uL 2.0-7.7 [facility] Neutrophils/100 WBC (Bld) 74.8 % 47-70 [facility] Potassium [Moles/Vol] 4.4 mmol/L 3.5-5.1 [facility] Protein [Mass/Vol] 7.0 g/dL 6.4-8.2 [facility] Sodium [Moles/Vol] 136 mmol/L 136-145 [facility] WBC (Bld) [#/Vol] 10.6 10*3/uL 4.4-11.0 [facility] Blood erythrocytes count (nu mber/volume)Ordered By: Claire Hines on 03-13-2023 RBC (Bld) [#/Vol] 3.53 10*6/uL 4.6-6.2 [facility] Blood hemoglobin measurement (mass/volume)Ordered By: Claire Hines on 03-13-2023 Hemoglobin (Bld) [Mass/Vol] 11.0 g/dL 13.0-16.5 [facility] Blood lymphocytes/100 leukoc ytesOrdered By: Claire Hines on 03-13-2023 Lymphocytes/100 WBC (Bld) 11.8 % 19-41 [facility] Blood monocytes/100 leukocyt esOrdered By: Claire Hines on 03-13-2023 Monocytes/100 WBC (Bld) 9.3 % 0-10 [facility] Blood platelet mean volumeOr dered By: Claire Hines on 03-13-2023 Platelet mean volume (Bld) [Entitic vol] 9.4 fL 6.2-12.0 [facility] Determination of erythrocyte mean corpuscular volume (MCV)Ordered By: Claire Hines on 03-13-2023 MCV (RBC) [Entitic vol] 96.9 fL 80-94 [facility] Hematocrit Auto (Bld) [Volum e fraction]Ordered By: Claire Hines on 03-13-2023 Hematocrit (Bld) [Volume fraction] 34.2 % 40-54 [facility] Laboratory - Chemistry and C hemistry - challengeOrdered By: Claire Hines on 03-13-2023 ALP [Catalytic activity/Vol] 106 U/L 45-117 [facility] ALT [Catalytic activity/Vol] 22 U/L 16-61 [facility] CO2 [Moles/Vol] 27.0 mmol/L 21.0-32.0 [facility] Globulin (S) [Mass/Vol] 3.8 g/dL 2.2-4.2 [facility] Lipase [Catalytic activity/Vol] 33 U/L 13-75 [facility] Comment on above: Please note:LIPASE r evised reference range effective 22. New Lipase methodology. Expected to produce lower values than the previous assay method. NEW Reference Range: 13 - 75 U/L Urea nitrogen/Creatinine [Mass ratio] 14.0 mg/mg 10-20 [facility] Laboratory - Hematology and Cell countsOrdered By: Claire Hines on 03-13-2023 Erythrocyte distribution width (RBC) [Entitic vol] 46.8 fL 35.1-43.9 [facility] Erythrocyte distribution width (RBC) [Ratio] 13.2 % 11.6-14.6 [facility] Immature granulocytes/100 WBC (Bld) 0.600 % 0.0-0.9 [facility] Comment on above: IG% - Immature Granu locytes (promyelocytes, myelocytes and metamyelocytes) > 1% indicates that a LEFT SHIFT is Present. MCH (RBC) [Entitic mass] 31.2 pg 27.0-32.0 [facility] Nucleated RBC/100 WBC (Bld) [Ratio] 0 % 0-5 [facility] MCHC Auto (RBC) [Mass/Vol]Or dered By: Claire Hines on 03-13-2023 MCHC (RBC) [Mass/Vol] 32.2 g/dL 32-36 [facility] No Panel InformationOrdered By: Claire Hines on 03-13-2023 Estimated GFR (MDRD) Amer 92 mL/min >60 [facility] Comment on above: GFR Calc Estimated GFR (MDRD) Non-Af Amer 76 mL/min >60 [facility] Comment on above: Non- GFR Calc Troponin I High Sensitivity 6 pg/mL 3.0-78.0 [facility] Comment on above: Please Note: New Abril t Units and Gender Specific Reference Ranges. For more information see Policy Stat Procedure [place] High Sensitivity Troponin (TNIH) and attachments. Platelets bldOrdered By: Zita Hines on 03-13-2023 Platelets (Bld) [#/Vol] 423 10*3/uL 150-450 [facility] Serum or plasma albumin obdulia urement (mass/volume)Ordered By: Claire Hines on 03-13-2023 Albumin [Mass/Vol] 3.2 g/dL 3.2-5.0 [facility] Serum or plasma albumin/glob ulin mass ratioOrdered By: Claire Hines on 03-13-2023 Albumin/Globulin [Mass ratio] 0.8 {ratio} 0.9-2.4 [facility] Serum or plasma calcium obdulia urement (mass/volume)Ordered By: Claire Hines on 03-13-2023 Calcium [Mass/Vol] 8.8 mg/dL 8.5-10.1 [facility] Serum or plasma creatinine m easurement (mass/volume)Ordered By: Claire Hines on 03-13-2023 Creatinine [Mass/Vol] 1.00 mg/dL 0.70-1.30 [facility] Comment on above: The validity of the calculated GFR & GFRAA in patients over 70 years has not been determined. Clinical correlation is essential. Serum or plasma urea nitroge n measurement (mass/volume)Ordered By: Claire Hines on 03-13-2023 Urea nitrogen [Mass/Vol] 14 mg/dL 7-18 [facility] Thin prep Papanicolaou smear with manual screeningOrdered By: Claire Hines on 03-13-2023 Thin prep Papanicolaou smear with manual screening 17 U/L 15-37 [facility] Thin prep Papanicolaou smear with manual screening 5 5-15 [facility] UA DIP, URINE (POC)on 2022 BILIRUBIN UA (POCT) Negative Negative [facility] CLARITY UA (POCT) Clear [facility] COLOR UA (POCT) Yellow [facility] GLUCOSE UA (POCT) Negative Negative mg/dL [facility] Hemoglobin Ql (U) Negative Negative [facility] KETONE UA (POCT) Negative Negative mg/dL [facility] LEUKOCYTES UA (POCT) Negative Negative [facility] NITRITE UA (POCT) Negative Negative [facility] PH UA (POCT) 7.0 4.5 - 8.0 [facility] Protein Ql (U) Negative Negative mg/dL [facility] SPECIFIC GRAVITY UA (POCT) 1.010 1.005 - 1.030 [facility] UROBILINOGEN UA (POCT) 0.2 E.U./dL Layla l E.U./dL [facility] Basophil percentageOrdered B y: Mallorie Santos on 10-11-2022 Chloride [Moles/Vol] 102 mmol/L 98-107 [facility] Glucose [Mass/Vol] 147 mg/dL 74-106 [facility] Comment on above: Fasting Glucose resu lt greater than or equal to 126 mg/dL suggests DIABETES MELLITUS per A.D.A. criteria. Potassium [Moles/Vol] 4.0 mmol/L 3.5-5.1 [facility] Sodium [Moles/Vol] 135 mmol/L 136-145 [facility] WBC (Bld) [#/Vol] 8.5 10*3/uL 4.4-11.0 [facility] Blood erythrocytes count (nu mber/volume)Ordered By: Mallorie Santos on 10-11-2022 RBC (Bld) [#/Vol] 4.03 10*6/uL 4.6-6.2 [facility] Blood hemoglobin measurement (mass/volume)Ordered By: Mallorie Santos on 10-11-2022 Hemoglobin (Bld) [Mass/Vol] 12.6 g/dL 13.0-16.5 [facility] Blood platelet mean volumeOr dered By: Mallorie Santos on 10-11-2022 Platelet mean volume (Bld) [Entitic vol] 9.8 fL 6.2-12.0 [facility] Determination of erythrocyte mean corpuscular volume (MCV)Ordered By: Mallorie Santos on 10-11-2022 MCV (RBC) [Entitic vol] 97.3 fL 80-94 [facility] Hematocrit Auto (Bld) [Volum e fraction]Ordered By: Mallorie Santos on 10-11-2022 Hematocrit (Bld) [Volume fraction] 39.2 % 40-54 [facility] Laboratory - Chemistry and C hemistry - challengeOrdered By: Mallorie Santos on 10-11-2022 CO2 [Moles/Vol] 26.0 mmol/L 21.0-32.0 [facility] Natriuretic peptide B (Bld) [Mass/Vol] 28.6 pg/mL 0-100 [facility] Urea nitrogen/Creatinine [Mass ratio] 13.2 mg/mg 10-20 [facility] Laboratory - Hematology and Cell countsOrdered By: Mallorie Santos on 10-11-2022 Erythrocyte distribution width (RBC) [Entitic vol] 47.3 fL 35.1-43.9 [facility] Erythrocyte distribution width (RBC) [Ratio] 13.1 % 11.6-14.6 [facility] MCH (RBC) [Entitic mass] 31.3 pg 27.0-32.0 [facility] MCHC Auto (RBC) [Mass/Vol]Or dered By: Mallorie Santos on 10-11-2022 MCHC (RBC) [Mass/Vol] 32.1 g/dL 32-36 [facility] No Panel InformationOrdered By: Mallorie Santos on 10-11-2022 Estimated GFR (MDRD) Amer 74 mL/min >60 [facility] Comment on above: GFR Calc Estimated GFR (MDRD) Non-Af Amer 61 mL/min >60 [facility] Comment on above: Non- GFR Calc Platelets bldOrdered By: Srinivasan carlitomarco Santos on 10-11-2022 Platelets (Bld) [#/Vol] 414 10*3/uL 150-450 [facility] Serum or plasma calcium obdulia urement (mass/volume)Ordered By: Mallorie Santos on 10-11-2022 Calcium [Mass/Vol] 9.2 mg/dL 8.5-10.1 [facility] Serum or plasma creatinine m easurement (mass/volume)Ordered By: Mallorie Santos on 10-11-2022 Creatinine [Mass/Vol] 1.21 mg/dL 0.70-1.30 [facility] Comment on above: The validity of the calculated GFR & GFRAA in patients over 70 years has not been determined. Clinical correlation is essential. Serum or plasma urea nitroge n measurement (mass/volume)Ordered By: Mallorie Santos on 10-11-2022 Urea nitrogen [Mass/Vol] 16 mg/dL 7-18 [facility] Thin prep Papanicolaou smear with manual screeningOrdered By: Mallorie Santos on 10-11-2022 Thin prep Papanicolaou smear with manual screening 7 5-15 [facility] Absolute lymphocyte countOrd ered By: Mallorie Santos on 05-26-2022 Lymphocytes Auto (Unsp spec) [#/Vol] 1.44 10*3/uL 0.83-4.51 [facility] Basophil percentageOrdered B y: Mallorie Santos on 05-26-2022 Basophils/100 WBC (Bld) 0.6 % 0-1 [facility] Eosinophils/100 WBC (Bld) 2.0 % 0-5 [facility] Neutrophils (Bld) [#/Vol] 9.0 10*3/uL 2.0-7.7 [facility] Neutrophils/100 WBC (Bld) 77.1 % 47-70 [facility] WBC (Bld) [#/Vol] 11.7 10*3/uL 4.4-11.0 [facility] Blood erythrocytes count (nu mber/volume)Ordered By: Mallorie Santos on 05-26-2022 RBC (Bld) [#/Vol] 4.16 10*6/uL 4.6-6.2 [facility] Blood hemoglobin measurement (mass/volume)Ordered By: Mallorie Santos on 05-26-2022 Hemoglobin (Bld) [Mass/Vol] 12.9 g/dL 13.0-16.5 [facility] Blood lymphocytes/100 leukoc ytesOrdered By: Mallorie Santos on 05-26-2022 Lymphocytes/100 WBC (Bld) 12.3 % 19-41 [facility] Blood monocytes/100 leukocyt esOrdered By: Mallorie Santos on 05-26-2022 Monocytes/100 WBC (Bld) 7.6 % 0-10 [facility] Blood platelet mean volumeOr dered By: Mallorie Santos on 05-26-2022 Platelet mean volume (Bld) [Entitic vol] 10.3 fL 6.2-12.0 [facility] Determination of erythrocyte mean corpuscular volume (MCV)Ordered By: Mallorie Santos on 05-26-2022 MCV (RBC) [Entitic vol] 94.0 fL 80-94 [facility] Hematocrit Auto (Bld) [Volum e fraction]Ordered By: Mallorie Santos on 05-26-2022 Hematocrit (Bld) [Volume fraction] 39.1 % 40-54 [facility] Laboratory - Hematology and Cell countsOrdered By: Mallorie Santos on 05-26-2022 Erythrocyte distribution width (RBC) [Entitic vol] 44.5 fL 35.1-43.9 [facility] Erythrocyte distribution width (RBC) [Ratio] 12.9 % 11.6-14.6 [facility] Immature granulocytes/100 WBC (Bld) 0.400 % 0.0-0.9 [facility] Comment on above: IG% - Immature Granu locytes (promyelocytes, myelocytes and metamyelocytes) > 1% indicates that a LEFT SHIFT is Present. MCH (RBC) [Entitic mass] 31.0 pg 27.0-32.0 [facility] Nucleated RBC/100 W[facility] (Bld) [Ratio] 0 % [facility] [Mass/Vol]Or dered By: Mallorie Santos on 05-26-2022 MCHC (RBC) [Mass/Vol] 33.0 g/dL 32-36 [facility] Platelets bldOrdered By: Srinivasan olena Danielle on 05-26-2022 Platelets (Bld) [#/Vol] 370 10*3/uL 150-450 [facility] Basophil percentageOrdered B y: Dr. Kramer on 05-18-2022 Bilirubin [Mass/Vol] 0.70 mg/dL 0.20-1.00 [facility] Comment on above: For patients on eltr ombopag therapy, use of Dimension [place] TBIL is not recommended. Cholesterol [Mass/Vol] 184 mg/dL <200 [facility] Comment on above: <200 mg/dL Desirable 200-240 mg/dL Borderline >240 mg/dL High Risk Protein [Mass/Vol] 7.9 g/dL 6.4-8.2 [facility] Triglyceride [Mass/Vol] 160 mg/dL <199 [facility] Comment on above: The drugs N-Acetylcy steine and Metamizole may falsely depress this assay.Serum Triglycerides Reference Interval Normal <150 mg/dL Borderline high 150 - 199 mg/dL High 200 - 499 mg/dL Very High > or = 500 mg/dL Direct bilirubinOrdered By: Dr. Kramer on 05-18-2022 Bilirubin.direct [Mass/Vol] 0.18 mg/dL 0.00-0.30 [facility] Laboratory - Chemistry and C hemistry - challengeOrdered By: Dr. Kramer on 05-18-2022 ALP [Catalytic activity/Vol] 101 U/L 45-117 [facility] ALT [Catalytic activity/Vol] 57 U/L 16-61 [facility] Globulin (S) [Mass/Vol] 4.3 g/dL 2.2-4.2 [facility] Serum or plasma albumin obdulia urement (mass/volume)Ordered By: Dr. Kramer on 05-18-2022 Albumin [Mass/Vol] 3.6 g/dL 3.2-5.0 [facility] Serum or plasma cholesterol in HDL measurement (mass/volume)Ordered By: Dr. Kramer on 05-18-2022 Cholesterol in HDL [Mass/Vol] 58 mg/dL >40 [facility] Comment on above: The drugs N-Acetylcy steine and Metamizole may falsely depress this assay. Reference Range HDL <40 mg/dL Low HDL Cholesterol HDL >or= 60 mg/dL High HDL Cholesterol Serum or plasma cholesterol in VLDL measurement (mass/volume)Ordered By: Dr. Kramer on 05-18-2022 Cholesterol in VLDL [Mass/Vol] 32 mg/dL 5-40 [facility] Serum or plasma low density lipoprotein (LDL) cholesterol measurement (mass/volume)Ordered By: Dr. Kramer on 05-18-2022 Cholesterol in LDL [Mass/Vol] 94 mg/dL 0-130 [facility] Thin prep Papanicolaou smear with manual screeningOrdered By: Dr. Kramer on 05-18-2022 Thin prep Papanicolaou smear with manual screening 28 U/L 15-37 [facility] MRI BRAIN WO IVCONon 022 [facility] No Panel Informationon 01-25 Radiology Result ACTIONABLE Abnormal [facility] No Panel Informationon 12-01 [facility] XR Chest PA and Lateralon IMPRESSION: Stable chest. No acute cardiopulmonary process. Research Soil Scientist: KENTRELL Transcribe Date/Time: Oct 29 2020 1:59P Dictated by : KAYLEIGH EMERY MD This examination was interpreted and the report reviewed and electronically signed by: KAYLEIGH EMERY MD on Oct 29 2020 2:07PM [facility] DIVISION OF RADIOLOGY * * *Final Report* * * DATE OF EXAM: Oct 29 2020 9:50AM WOX 5291 - XR CHEST 2V FRONTAL/LAT / PROCEDURE REASON: Cough * * * * Physician Interpretation * * * * EXAMINATION: CHEST RADIOGRAPH (2 VIEW FRONTAL & LATERAL) CLINICAL HISTORY: Cough MQ: XC2_6 EXAM DATE/TIME: 10/29/2020 9:50 AM COMPARISON: Comparison is made to prior chest dated 01/18/2019 RESULT: Lines, tubes, and devices: None. Lungs and pleura: There is no focal consolidation or acute pleural process/fluid. There is no vascular redistribution to suggest pulmonary edema. Cardiomediastinal silhouette: The cardiac, mediastinal and hilar shadows are unchanged and remain within normal limits. Other: The bony structures are intact DIVISION OF RADIOLOGY Provider, Monica gutierrez Corona - 10/29/2020 * * *Final Report* * * DATE OF EXAM: Oct 29 2020 9:50AM WOX 5291 - XR CHEST 2V FRONTAL/LAT / PROCEDURE REASON: Cough * * * * Physician Interpretation * * * * EXAMINATION: CHEST RADIOGRAPH (2 VIEW FRONTAL & LATERAL) CLINICAL HISTORY: Cough MQ: XC2_6 EXAM DATE/TIME: 10/29/2020 9:50 AM COMPARISON: Comparison is made to prior chest dated 01/18/2019 RESULT: Lines, tubes, and devices: None. Lungs and pleura: There is no focal consolidation or acute pleural process/fluid. There is no vascular redistribution to suggest pulmonary edema. Cardiomediastinal silhouette: The cardiac, mediastinal and hilar shadows are unchanged and remain within normal limits. Other: The bony structures are intact IMPRESSION IMPRESSION: Stable chest. No acute cardiopulmonary process. Research Soil Scientist: PSCB Transcribe Date/Time: Oct 29 2020 1:59P Dictated by : KAYLEIGH EMERY MD This examination was interpreted and the report reviewed and electronically signed by: KAYLEIGH EMERY MD on Oct 29 2020 2:07PM EST [facility] Radiology Study observation (narrative) [facility] XR Chest PA and LateralOrder ed By: [facility] Provider on 10-29-2020 [facility] Lab Report: Lipid Profileon 05-17-2017 Cholesterol 149 mg/dL Invalid Interpretation Code 200 [facility] [employer] Work Phone: [phone] HDL Cholesterol 59 mg/dL Invalid Interpretation Code [employer] Work Phone: [phone] Cholesterol 61 mg/dL Invalid Interpretation Code 0-130 [employer] Work Phone: [phone] Triglyceride 143 mg/dL Invalid Interpretation Code [employer] Work Phone: [phone] very low density lipoproteins 29 mg/dL Invalid Interpretation Code 5-40 [employer] Work Phone: [phone] Lab Report: Liver Profileon 05-17-2017 Alanine aminotransferase (ALT) 44 U/L Invalid Interpretation Code 12-78 [employer] Phone: [phone] Albumin 3.7 g/dL Invalid Interpretation Code 3.4-5.0 [employer] Phone: [phone] Alkaline phosphatase (ALP) 101 U/L Invalid Interpretation Code 45-117 [employer] Phone: [phone] Aspartate aminotransferase (AST) 25 U/L Invalid Interpretation Code 15-37 [employer] Phone: [phone] Bilirubin (direct) 0.19 mg/dL Invalid Interpretation Code 0.00-0.30 [employer] Phone: [phone] Bilirubin (total) 0.60 mg/dL Invalid Interpretation Code 0.20-1.00 [employer] Phone: [phone] Globulin 4.0 g/dL Invalid Interpretation Code 2.2-4.2 [employer] Phone: [phone] Protein 7.7 g/dL Invalid Interpretation Code 6.4-8.2 [employer] Phone: [phone] Office Visiton 07-27-2016 Dietary management education, guidance, and counseling (procedure) yes Invalid Interpretation Code [employer] Phone: [phone] Documentation of current medications (procedure) Done Invalid Interpretation Code [employer] Phone: [phone] Clinical Lists Update: [facility] 07-18-2016 Left ventricular Ejection fraction 65 % Invalid Interpretation Code [employer] Phone: [phone] Replaced Document: Rose Muir CG Observationson 02-08-2016 electrocardiogram interpretation Sinus Bradycardia -RSR(V1) -nondiagnostic. PROBABLY NORMAL Invalid Interpretation Code [employer] Phone: [phone] GE use only - for [employer] import when terms are not otherwise specified 411 ms Invalid Interpretation Code [employer] Phone: [phone] P wave axis, electrocardiogram 41 deg Invalid Interpretation Code [employer] Phone: [phone] LA interval, electrocardiogram 168 ms Invalid Interpretation Code [employer] Phone: [phone] Pulse (Heart Rate) 59 /min Invalid Interpretation Code [employer] Phone: [phone] QRS axis, electrocardiogram 2 deg Invalid Interpretation Code [employer] Work Phone: [phone] QRS duration, electrocardiogram 94 ms Invalid Interpretation Code [employer] Work Phone: [phone] QT interval, electrocardiogram new path ms Invalid Interpretation Code [employer] Work Phone: [phone] T wave axis, electrocardiogram 30 deg Invalid Interpretation Code [employer] Work Phone: [phone] Clinical Lists Update: [facility] 12-08-2015 BUN/Creatinine Ratio 15.1 mg/mg Invalid Interpretation Code [employer] Work Phone: [phone] Calcium 8.8 mg/dL Invalid Interpretation Code [employer] Phone: [phone] Chloride 103 mmol/L Invalid Interpretation Code [employer] Phone: [phone] CO2 29.0 mmol/L Invalid Interpretation Code [employer] Work Phone: [phone] Creatinine 1.26 mg/dL Invalid Interpretation Code [employer] Phone: [phone] Glucose 139 mg/dL Invalid Interpretation Code [employer] Phone: [phone] Potassium 3.8 mmol/L Invalid Interpretation Code [employer] Phone: [phone] Sodium 138 mmol/L Invalid Interpretation Code [employer] Phone: [phone] Urea nitrogen 19 mg/dL Invalid Interpretation Code [employer] Phone: [phone] Office Visiton 07-29-2015 Fall risk assessment 26/26 Invalid Interpretation Code [employer] Phone: [phone] Tobacco smoking status NHIS Tobacco smoking status NMIS Invalid Interpretation Code [employer] Phone: [phone] Lab Report: Basic Metabolic Profile (BMP)on 02-11-2015 Anion gap 6 mmol/L Invalid Interpretation Code 5-15 [employer] Phone: [phone] eGFR (non-black) 60 mL/min/{1.73_m2} Invalid Interpretation Code >60 [employer] Work Phone: [phone] eGFR (non-black) 73 mL/min/{1.73_m2} Invalid Interpretation Code >60 [facility] [employer] Work Phone: [phone] Lab Report: Prothrombin Time w/INRon 01-30-2015 Coagulation tissue factor induced in platelet poor plasma 13.7 s Invalid Interpretation Code 11.7-14.9 [facility] Work Phone: [phone] INR in blood by coagulation 1.0 {INR} Invalid Interpretation Code [facility] [employer] Work Phone: [phone] Lab Report: CBC-Complete Blo od Cnt No Diffon 01-29-2015 Erythrocytes (RBC) 4.02 10*6/uL Low 4.6-6.2 [facility] [employer] Work Phone: [phone] Hematocrit (HCT) 37.0 % Low 40-54 [facility] Work Phone: [phone] Hemoglobin (HGB) 12.7 g/dL Low 13.0-16.5 [facility] Work Phone: [phone] MCH 31.6 pg Invalid Interpretation Code 27.0-32.0 [facility] [employer] Work Phone: [phone] MCHC 34.3 G/GL Invalid Interpretation Code 32-36 [facility] [employer] Work Phone: [phone] MCV 92.0 fL Invalid Interpretation Code 80-94 [facility] Work Phone: [phone] Platelets 305 10*3/mm3 Invalid Interpretation Code 150-450 [facility] Work Phone: [phone] PMV by Todd 11.2 fL Invalid Interpretation Code 6.2-12.0 [facility] Work Phone: [phone] RDW-CA 12.1 % Invalid Interpretation Code 11.6-14.6 [facility] Work Phone: [phone] red blood cell distribution width, size density 40.1 fL Invalid Interpretation Code 35.1-43.9 [facility] [employer] Work Phone: [phone] WBC (Leukocytes) 7.8 10*3/uL Invalid Interpretation Code 4.4-11.0 [facility] Work Phone: [phone] Office Visiton 11-19-2014 Thyroid stimulating hormone (TSH) 1.32 u[iU]/mL Invalid Interpretation Code [facility] Work Phone: Office Visit: [facility] 06-12-19 15 cardiac risk group C Invalid Interpretation Code [facility] Work Phone: [phone] General cardiovascular disease 10Y risk [#] Orrick.D'Agostino N/A Invalid Interpretation Code [facility] Work Phone: Tobacco smoking status NHIS Never Invalid Interpretation Code [facility] Work Phone: [phone] Replaced Document: Rose Muir CG Observationson 06-18-2013 Pulse (Heart Rate) 393 ms Invalid Interpretation Code [facility] Work Phone: Clinical Lists Update: [facility] [facility] 05-21-2011 Glucose 126 mg/dL High [facility] Work Phone: Vital Signs Date Time Vital Sign Value Performing Clinician Facility 01-10-2025 15:35-0400 Body temperature 97.5 [degF] Dr. George Vaughan MD Work Phone: [facility] 01-10-2025 15:35-0400 Diastolic blood pressure 66 mm[Hg] Dr. George Vaughan MD Work Phone: [facility] 01-10-2025 15:35-0400 Heart rate 59 /min Dr. George Vaughan MD Work Phone: [facility] 01-10-2025 15:35-0400 Respiratory rate 16 /min Dr. George Vaughan MD Work Phone: [facility] 01-10-2025 15:35-0400 SaO2% (BldA) [Mass fraction] 96 % Dr. George Vaughan MD Work Phone: [facility] 01-10-2025 15:35-0400 Systolic blood pressure 134 mm[Hg] Dr. George Vaughan MD Work Phone: [facility] 01-10-2025 14:08-0400 Body height 185.[address] George Vaughan MD Work Phone: [facility] 01-10-2025 14:08-0400 Body mass index (BMI) [Ratio] 28.2 kg/m2 Dr. George Vaughan MD Work Phone: [facility] 01-10-2025 14:08-0400 Body weight [address] George Vaughan MD Work Phone: [facility] 12-20-2024 10:44-0400 Body mass index (BMI) [Ratio] 28.39 kg/m2 Landon Strange Jr., MD Work Phone: [facility] 12-20-2024 10:44-0400 Body weight 97.61 kg Landon Strange Jr., MD Work Phone: [facility] 12-20-2024 10:44-0400 Respiratory rate 16 /min Landon Strange Jr., MD Work Phone: [facility] 12-20-2024 10:44-0400 SaO2% (BldA) [Mass fraction] 98 % Landon Strange Jr., MD Work Phone: [facility] 12-18-2024 14:14-0400 Body mass index (BMI) [Ratio] 27.44 kg/m2 Gertrude Brooks LAB SUPPORT TECH.[employer] Work Phone: [facility] 12-18-2024 14:14-0400 Body temperature 97.11 [degF] Gertrude Brooks LAB SUPPORT TECH.[employer] Work Phone: [facility] 12-18-2024 14:14-0400 Body weight 94.35 kg Gertrude Brooks LAB SUPPORT TECH.[employer] Work Phone: [facility] 12-18-2024 14:14-0400 Diastolic blood pressure 72 mm[Hg] Gertrude Brooks LAB SUPPORT TECH.[employer] Work Phone: [facility] 12-18-2024 14:14-0400 Heart rate 68 /min Gertrude Brooks LAB SUPPORT TECH.[employer] Work Phone: [facility] 12-18-2024 14:14-0400 Respiratory rate 14 /min Gertrude Brooks LAB SUPPORT TECH.[employer] Work Phone: [facility] 12-18-2024 14:14-0400 SaO2% (BldA) [Mass fraction] 96 % Gertrude Brooks LAB SUPPORT TECH.[employer] Work Phone: [facility] 12-18-2024 14:14-0400 Systolic blood pressure 130 mm[Hg] Gertrude Brooks LAB SUPPORT TECH.[employer] Work Phone: [facility] 12-06-2024 09:50-0400 Body temperature 97.6 [degF] Dr. George Vaughan MD Work Phone: [facility] 12-06-2024 09:50-0400 Diastolic blood pressure 69 mm[Hg] Dr. George Vaughan MD Work Phone: [facility] 12-06-2024 09:50-0400 SaO2% (BldA) [Mass fraction] 99 % Dr. George Vaughan MD Work Phone: [facility] 12-06-2024 09:50-0400 Systolic blood pressure 165 mm[Hg] Dr. George Vaughan MD Work Phone: [facility] 11-29-2024 09:46-0400 Body height 185.4 cm Pacc 1 Work Phone: [facility] 11-29-2024 09:46-0400 Body mass index (BMI) [Ratio] 28.76 kg/m2 Pacc 1 Work Phone: [facility] 11-29-2024 09:46-0400 Body temperature 97.11 [degF] Pacc 1 Work Phone: [facility] 11-29-2024 09:46-0400 Body weight 98.88 kg Pacc 1 Work Phone: [facility] 11-29-2024 09:46-0400 Diastolic blood pressure 72 mm[Hg] Pacc 1 Work Phone: [facility] 11-29-2024 09:46-0400 Heart rate 61 /min Pacc 1 Work Phone: [facility] 11-29-2024 09:46-0400 Respiratory rate 14 /min Pacc 1 Work Phone: [facility] 11-29-2024 09:46-0400 SaO2% (BldA) [Mass fraction] 98 % Pacc 1 Work Phone: [facility] 11-29-2024 09:46-0400 Systolic blood pressure 138 mm[Hg] Pacc 1 Work Phone: [facility] 11-29-2024 08:06-0400 Diastolic blood pressure 72 mm[Hg] Dr. George Vaughan MD Work Phone: [facility] 11-29-2024 08:06-0400 Heart rate 70 /min Dr. George Vaughan MD Work Phone: [facility] 11-29-2024 08:06-0400 Systolic blood pressure 136 mm[Hg] Dr. George Vaughan MD Work Phone: [facility] 11-29-2024 07:58-0400 Body height 185.[address] George Vaughan MD Work Phone: [facility] 11-29-2024 07:58-0400 Body mass index (BMI) [Ratio] 28.8 kg/m2 Dr. George Vaughan MD Work Phone: [facility] 11-29-2024 07:58-0400 Body weight 98.[address] George Vaughan MD Work Phone: [facility] 11-29-2024 07:58-0400 Respiratory rate 16 /min Dr. George Vaughan MD Work Phone: [facility] 11-19-2024 10:24-0400 Body height 185.4 cm Sheldon Slater MD Work Phone: [facility] 11-19-2024 10:24-0400 Body mass index (BMI) [Ratio] 28.6 kg/m2 Sheldon Slater MD Work Phone: [facility] 11-19-2024 10:24-0400 Body temperature 97.11 [degF] Sheldon Slater MD Work Phone: [facility] 11-19-2024 10:24-0400 Body weight 98.34 kg Sheldon Slater MD Work Phone: [facility] 11-19-2024 10:24-0400 Diastolic blood pressure 64 mm[Hg] Sheldon Slater MD Work Phone: [facility] 11-19-2024 10:24-0400 Heart rate 81 /min Sheldon Slater MD Work Phone: [facility] 11-19-2024 10:24-0400 Respiratory rate 19 /min Sheldon Slater MD Work Phone: [facility] 11-19-2024 10:24-0400 SaO2% (BldA) [Mass fraction] 97 % Sheldon Slater MD Work Phone: [facility] 11-19-2024 10:24-0400 Systolic blood pressure 136 mm[Hg] Sheldon Slater MD Work Phone: [facility] 11-13-2024 19:26-0400 Body temperature 98.5 [degF] Dr. George Vaughan MD Work Phone: [facility] 11-13-2024 19:26-0400 Diastolic blood pressure 81 mm[Hg] Dr. George Vaughan MD Work Phone: [facility] 11-13-2024 19:26-0400 Heart rate 69 /min Dr. George Vaughan MD Work Phone: [facility] 11-13-2024 19:26-0400 Respiratory rate 12 /min Dr. George Vaughan MD Work Phone: [facility] 11-13-2024 19:26-0400 SaO2% (BldA) [Mass fraction] 100 % Dr. George Vaughan MD Work Phone: [facility] 11-13-2024 19:26-0400 Systolic blood pressure 175 mm[Hg] Dr. George Vaughan MD Work Phone: [facility] 11-13-2024 15:22-0400 Body mass index (BMI) [Ratio] 29.2 kg/m2 Dr. George Vaughan MD Work Phone: [facility] 11-13-2024 15:22-0400 Body weight 100.[address] George Vaughan MD Work Phone: [facility] 11-13-2024 12:48-0400 Body height 185.[address] George Vaughan MD Work Phone: [facility] 08-21-2024 12:27-0400 Body mass index (BMI) [Ratio] 29.18 kg/m2 Jessy Queener PA-C Work Phone: [facility] 08-21-2024 12:27-0400 Body weight 100.34 kg Jessy Queener PA-C Work Phone: [facility] 08-21-2024 12:27-0400 Diastolic blood pressure 85 mm[Hg] Jessy Queener PA-C Work Phone: [facility] 08-21-2024 12:27-0400 Heart rate 62 /min Jessy Queener PA-C Work Phone: [facility] 08-21-2024 12:27-0400 SaO2% (BldA) [Mass fraction] 99 % Jessy Queener PA-C Work Phone: [facility] 08-21-2024 12:27-0400 Systolic blood pressure 151 mm[Hg] Jessy Queener PA-C Work Phone: [facility] 07-29-2024 14:17-0400 Body temperature 98.1 [degF] Dr. George Vaughan MD Work Phone: [facility] 07-29-2024 14:17-0400 Diastolic blood pressure 68 mm[Hg] Dr. George Vaughan MD Work Phone: [facility] 07-29-2024 14:17-0400 Heart rate 65 /min Dr. George Vaughan MD Work Phone: 6(146)280-941243 [place] [address] 07-29-2024 14:17-0400 Respiratory rate 16 /min Dr. George Vaughan MD Work Phone: 6(123)257-471343 [place] [address] 07-29-2024 14:17-0400 SaO2% (BldA) [Mass fraction] 100 % Dr. George Vaughan MD Work Phone: 7(632)983-734843 [place] [address] 07-29-2024 14:17-0400 Systolic blood pressure 123 mm[Hg] Dr. George Vaughan MD Work Phone: 4(609)846-588743 [place] [address] 07-29-2024 09:47-0400 Body temperature 97.9 [degF] Dr. George Vaughan MD Work Phone: 4(369)870-767443 [place] [address] 07-29-2024 09:47-0400 Diastolic blood pressure 67 mm[Hg] Dr. George Vaughan MD Work Phone: 9(748)774-658143 [place] [address] 07-29-2024 09:47-0400 Heart rate 58 /min Dr. George Vaughan MD Work Phone: 8(558)561-298743 [place] [address] 07-29-2024 09:47-0400 Respiratory rate 16 /min Dr. George Vaughan MD Work Phone: 0(277)481-285543 [place] [address] 07-29-2024 09:47-0400 SaO2% (BldA) [Mass fraction] 99 % Dr. George Vaughan MD Work Phone: 1(717)105-002243 [place] [address] 07-29-2024 09:47-0400 Systolic blood pressure 144 mm[Hg] Dr. George Vaughan MD Work Phone: 5(966)728-970243 [place] [address] 07-28-2024 15:24-0400 Body height 185.[address] George Vaughan MD Work Phone: 9(827)824-916443 [place] [address] 07-28-2024 15:24-0400 Body mass index (BMI) [Ratio] 28.3 kg/m2 Dr. George Vaughan MD Work Phone: 0(853)031-796143 [place] [address] 07-28-2024 15:24-0400 Body weight 97.[address] George Vaughan MD Work Phone: [facility] 07-28-2024 14:00-0400 Diastolic blood pressure 65 mm[Hg] Dr. George Vaughan MD Work Phone: [facility] 07-28-2024 14:00-0400 Heart rate 53 /min Dr. George Vaughan MD Work Phone: [facility] 07-28-2024 14:00-0400 Respiratory rate 13 /min Dr. George Vaughan MD Work Phone: 7(782)541-606943 [place] [address] 07-28-2024 14:00-0400 SaO2% (BldA) [Mass fraction] 100 % Dr. George Vaughan MD Work Phone: 0(634)986-275305 [place] [address] 07-28-2024 14:00-0400 Systolic blood pressure 146 mm[Hg] Dr. George Vaughan MD Work Phone: [facility] 07-28-2024 12:03-0400 Body temperature 98.1 [degF] Dr. George Vaughan MD Work Phone: [facility] 07-23-2024 09:00-0500 Body mass index (BMI) [Ratio] 29.46 kg/m2 George Vaughan MD Work Phone: [facility] 07-23-2024 09:00-0500 Body weight 101.3 kg George Vaughan MD Work Phone: [facility] 07-23-2024 09:00-0500 Diastolic blood pressure 64 mm[Hg] George Vaughan MD Work Phone: [facility] 07-23-2024 09:00-0500 Heart rate 68 /min George Vaughan MD Work Phone: [facility] 07-23-2024 09:00-0500 Respiratory rate 18 /min George Vaughan MD Work Phone: [facility] 03-04-2025 09:00-0500 Systolic blood pressure 128 mm[Hg] George Vaughan MD Work Phone: [facility] 05-16-2024 14:38-0500 Body mass index (BMI) [Ratio] 28.97 kg/m2 Ama Brian APRN.[employer] Work Phone: [facility] 05-16-2024 14:38-0500 Body temperature 97.39 [degF] Ama Brian LAB SUPPORT TECH.[employer] Work Phone: [facility] 05-16-2024 14:38-0500 Body weight 99.6 kg Ama Brian LAB SUPPORT TECH.[employer] Work Phone: [facility] 05-16-2024 14:38-0500 Diastolic blood pressure 72 mm[Hg] Ama Brian LAB SUPPORT TECH.[employer] Work Phone: [facility] 05-16-2024 14:38-0500 Heart rate 60 /min Ama Brian LAB SUPPORT TECH.[employer] Work Phone: [facility] 05-16-2024 14:38-0500 Respiratory rate 18 /min Ama Brian LAB SUPPORT TECH.[employer] Work Phone: [facility] 05-16-2024 14:38-0500 SaO2% (BldA) [Mass fraction] 97 % Ama Brian LAB SUPPORT TECH.[employer] Work Phone: [facility] 05-16-2024 14:38-0500 Systolic blood pressure 148 mm[Hg] Ama Brian LAB SUPPORT TECH.[employer] Work Phone: [facility] 04-30-2024 12:41-0500 Body mass index (BMI) [Ratio] 28.15 kg/m2 Jessy BAIRD-C Work Phone: [facility] 04-30-2024 12:41-0500 Body weight 96.8 kg Jessy BAIRD-C Work Phone: [facility] 04-30-2024 12:41-0500 Diastolic blood pressure 81 mm[Hg] Jessy BAIRD-C Work Phone: [facility] 04-30-2024 12:41-0500 Heart rate 67 /min Jessy Brandteunice BAIRD-C Work Phone: [facility] 04-30-2024 12:41-0500 SaO2% (BldA) [Mass fraction] 96 % Jessy Weldon PA-C Work Phone: [facility] 04-30-2024 12:41-0500 Systolic blood pressure 146 mm[Hg] Jessy Brandteunice BAIRD-C Work Phone: [facility] 01-26-2024 10:48-0400 Body mass index (BMI) [Ratio] 28.42 kg/m2 Landon Strange Jr., MD Work Phone: [facility] 01-26-2024 10:48-0400 Body weight 97.7 kg Landon Strange Jr., MD Work Phone: [facility] 01-26-2024 10:48-0400 Diastolic blood pressure 78 mm[Hg] Landon Strange Jr., MD Work Phone: [facility] 01-26-2024 10:48-0400 Heart rate 62 /min Landon Strange Jr., MD Work Phone: [facility] 01-26-2024 10:48-0400 SaO2% (BldA) [Mass fraction] 99 % Landon Strange Jr., MD Work Phone: [facility] 01-26-2024 10:48-0400 Systolic blood pressure 136 mm[Hg] Landon Strange Jr., MD Work Phone: [facility] 12-30-2023 10:24-0400 Body mass index (BMI) [Ratio] 28.56 kg/m2 George Vaughan MD Work Phone: [facility] 12-30-2023 10:24-0400 Body weight 98.2 kg George Vaughan MD Work Phone: [facility] 12-30-2023 10:24-0400 Diastolic blood pressure 74 mm[Hg] George Vaughan MD Work Phone: [facility] 12-30-2023 10:24-0400 Heart rate 68 /min George Vaughan MD Work Phone: [facility] 12-30-2023 10:24-0400 Respiratory rate 16 /min George Vaughan MD Work Phone: [facility] 12-30-2023 10:24-0400 SaO2% (BldA) [Mass fraction] 98 % George Vaughan MD Work Phone: [facility] 12-30-2023 10:24-0400 Systolic blood pressure 119 mm[Hg] George Vaughan MD Work Phone: [facility] 10-18-2023 11:13-0400 Body mass index (BMI) [Ratio] 28.15 kg/m2 Jessy Queener PA-C Work Phone: [facility] 10-18-2023 11:13-0400 Body weight 96.8 kg Jessy Queener PA-C Work Phone: [facility] 10-18-2023 11:13-0400 Diastolic blood pressure 83 mm[Hg] Jessy Queener PA-C Work Phone: [facility] 10-18-2023 11:13-0400 Heart rate 61 /min Jessy Queener PA-C Work Phone: [facility] 10-18-2023 11:13-0400 Respiratory rate 18 /min Jessy Queener PA-C Work Phone: [facility] 10-18-2023 11:13-0400 SaO2% (BldA) [Mass fraction] 100 % Jessy Queener PA-C Work Phone: [facility] 10-18-2023 11:13-0400 Systolic blood pressure 143 mm[Hg] Jessy Queener PA-C Work Phone: [facility] 08-11-2023 12:39-0400 Body weight 96.98 kg Zander Chavez APRN.CNP Work Phone: [facility] 08-11-2023 12:39-0400 Diastolic blood pressure 71 mm[Hg] Zander Scott LAB SUPPORT TECH.[employer] Work Phone: [facility] 08-11-2023 12:39-0400 Heart rate 59 /min Zander Scott LAB SUPPORT TECH.[employer] Work Phone: [facility] 08-11-2023 12:39-0400 Respiratory rate 16 /min Zander Scott LAB SUPPORT TECH.[employer] Work Phone: [facility] 08-11-2023 12:39-0400 SaO2% (BldA) [Mass fraction] 98 % Zander Scott LAB SUPPORT TECH.[employer] Work Phone: [facility] 08-11-2023 12:39-0400 Systolic blood pressure 123 mm[Hg] Zander Scott LAB SUPPORT TECH.[employer] Work Phone: [facility] 04-18-2023 08:45-0500 Body temperature 98.6 [degF] Dr. George Vaughan Work Phone: [facility] 04-18-2023 08:45-0500 Diastolic blood pressure 71 mm[Hg] Dr. George Vaughan Work Phone: [facility] 04-18-2023 08:45-0500 Heart rate 71 /min Dr. George Vaughan Work Phone: [facility] 04-18-2023 08:45-0500 Respiratory rate 14 /min Dr. George Vaughan Work Phone: [facility] 04-18-2023 08:45-0500 SaO2% (BldA) [Mass fraction] 97 % Dr. George Vaughan Work Phone: [facility] 04-18-2023 08:45-0500 Systolic blood pressure 156 mm[Hg] Dr. George Vaughan Work Phone: [facility] 04-16-2023 15:58-0500 Body height 185.[address] George Vaughan Work Phone: [facility] 04-16-2023 15:58-0500 Body mass index (BMI) [Ratio] 26.9 kg/m2 Dr. George Vaughan Work Phone: [facility] 04-16-2023 15:58-0500 Body weight 92.[address] George Vaughan Work Phone: [facility] 04-16-2023 15:00-0500 Diastolic blood pressure 70 mm[Hg] [facility] 04-16-2023 15:00-0500 Heart rate 55 /min [facility] 04-16-2023 15:00-0500 Respiratory rate 19 /min [facility] 04-16-2023 15:00-0500 SaO2% (BldA) [Mass fraction] 97 % [facility] 04-16-2023 15:00-0500 Systolic blood pressure 161 mm[Hg] [facility] 04-16-2023 11:14-0500 Body height 185.42 cm [facility] 04-16-2023 11:14-0500 Body mass index (BMI) [Ratio] 27.6 kg/m2 [facility] 04-16-2023 11:14-0500 Body temperature 97.7 [degF] [facility] 04-16-2023 11:14-0500 Body weight 94.8 kg [facility] 03-13-2023 14:09-0400 Diastolic blood pressure 72 mm[Hg] Dr. George Vaughan Work Phone: [facility] 03-13-2023 14:09-0400 Heart rate 51 /min Dr. George Vaughan Work Phone: [facility] 03-13-2023 14:09-0400 Respiratory rate 16 /min Dr. George Vaughan Work Phone: [facility] 03-13-2023 14:09-0400 SaO2% (BldA) [Mass fraction] 95 % Dr. George Vaughan Work Phone: [facility] 03-13-2023 14:09-0400 Systolic blood pressure 163 mm[Hg] Dr. George Vaughan Work Phone: [facility] 03-13-2023 11:45-0400 Body height 185.[address] George Vaughan Work Phone: [facility] 03-13-2023 11:45-0400 Body temperature 97.6 [degF] Dr. George Vaughan Work Phone: [facility] 02-25-2023 10:24-0400 Body temperature 97 [degF] Charlotte Older LAB SUPPORT TECH.[employer] Work Phone: [facility] 02-25-2023 10:24-0400 Body weight 98.79 kg Charlotte Older LAB SUPPORT TECH.[employer] Work Phone: [facility] 02-25-2023 10:24-0400 Diastolic blood pressure 58 mm[Hg] Charlotte Older LAB SUPPORT TECH.[employer] Work Phone: [facility] 02-25-2023 10:24-0400 Heart rate 75 /min Charlotte Older LAB SUPPORT TECH.[employer] Work Phone: [facility] 02-25-2023 10:24-0400 Respiratory rate 17 /min Charlotte Older LAB SUPPORT TECH.[employer] Work Phone: [facility] 02-25-2023 10:24-0400 SaO2% (BldA) [Mass fraction] 98 % Charlotte Older LAB SUPPORT TECH.[employer] Work Phone: [facility] 02-25-2023 10:24-0400 Systolic blood pressure 144 mm[Hg] Charlotte Older LAB SUPPORT TECH.[employer] Work Phone: [facility] 02-24-2023 08:09-0400 Body mass index (BMI) [Ratio] 29.7 kg/m2 Dr. George Vaughan Work Phone: [facility] 02-24-2023 08:09-0400 Body temperature 97.6 [degF] Dr. George Vaughan Work Phone: [facility] 02-24-2023 08:09-0400 Body weight 102.[address] George Vaughan Work Phone: [facility] 02-24-2023 08:09-0400 Diastolic blood pressure 80 mm[Hg] Dr. George Vaughan Work Phone: [facility] 02-24-2023 08:09-0400 Heart rate 62 /min Dr. George Vaughan Work Phone: [facility] 02-24-2023 08:09-0400 Respiratory rate 18 /min Dr. George Vaughan Work Phone: [facility] 02-24-2023 08:09-0400 SaO2% (BldA) [Mass fraction] 99 % Dr. George Vaughan Work Phone: [facility] 02-24-2023 08:09-0400 Systolic blood pressure 171 mm[Hg] Dr. George Vaughan Work Phone: [facility] 12-29-2022 10:42-0400 Body weight 98.34 kg Halima Dahlhausen LAB SUPPORT TECH.[employer] Work Phone: [facility] 12-29-2022 10:42-0400 Diastolic blood pressure 62 mm[Hg] Halima Dahlhausen LAB SUPPORT TECH.[employer] Work Phone: [facility] 12-29-2022 10:42-0400 Heart rate 64 /min Halima Dahlhausen LAB SUPPORT TECH.[employer] Work Phone: [facility] 12-29-2022 10:42-0400 Respiratory rate 16 /min Halima Dahlhausen LAB SUPPORT TECH.[employer] Work Phone: [facility] 12-29-2022 10:42-0400 SaO2% (BldA) [Mass fraction] 97 % Halima Dahlhausen LAB SUPPORT TECH.[employer] Work Phone: [facility] 12-29-2022 10:42-0400 Systolic blood pressure 126 mm[Hg] Halima Dahlhausen LAB SUPPORT TECH.[employer] Work Phone: [facility] 12-15-2022 14:04-0400 Body mass index (BMI) [Ratio] 28.8 kg/m2 Dr. George Vaughan Work Phone: [facility] 12-15-2022 14:04-0400 Body weight 99.[address] George Vaughan Work Phone: 8(043)390-573999 [address] 12-15-2022 14:04-0400 Diastolic blood pressure 71 mm[Hg] Dr. George Vaughan Work Phone: 6(440)184-545005 [place] [address] 12-15-2022 14:04-0400 Heart rate 63 /min Dr. George Vaughan Work Phone: 7(659)225-259699 [address] 12-15-2022 14:04-0400 Respiratory rate 18 /min Dr. George Vaughan Work Phone: 0(938)117-075843 [place] [address] 12-15-2022 14:04-0400 SaO2% (BldA) [Mass fraction] 98 % Dr. George Vaughan Work Phone: 2(077)832-344799 [address] 12-15-2022 14:04-0400 Systolic blood pressure 137 mm[Hg] Dr. George Vaughan Work Phone: 9(828)568-357843 [place] [address] 05-26-2022 15:24-0500 Body height 185.[address] George Vaughan Work Phone: 6(912)903-312043 [place] [address] 05-26-2022 15:24-0500 Body mass index (BMI) [Ratio] 28.3 kg/m2 Dr. George Vaughan Work Phone: 1(102)134-032805 [place] [address] 05-26-2022 15:24-0500 Body weight 97.[address] George Vaughan Work Phone: 4(053)502-138405 [place] [address] 05-26-2022 15:24-0500 Diastolic blood pressure 71 mm[Hg] Dr. George Vaughan Work Phone: 0(905)545-594299 [address] 05-26-2022 15:24-0500 Heart rate 60 /min Dr. George Vaughan Work Phone: 6(398)833-493805 [place] [address] 05-26-2022 15:24-0500 Respiratory rate 18 /min Dr. George Vaughan Work Phone: [facility] 05-26-2022 15:24-0500 SaO2% (BldA) [Mass fraction] 99 % Dr. George Vaughan Work Phone: [facility] 05-26-2022 15:24-0500 Systolic blood pressure 135 mm[Hg] Dr. George Vaughan Work Phone: [facility] 05-04-2022 13:21-0500 Body weight 98.07 kg George Vaughan MD Work Phone: [facility] 05-04-2022 13:21-0500 Diastolic blood pressure 80 mm[Hg] George Vaughan MD Work Phone: [facility] 05-04-2022 13:21-0500 Heart rate 66 /min George Vaughan MD Work Phone: [facility] 05-04-2022 13:21-0500 Respiratory rate 16 /min George Vaughan MD Work Phone: [facility] 05-04-2022 13:21-0500 Systolic blood pressure 140 mm[Hg] George Vaughan MD Work Phone: [facility] 02-17-2022 10:32-0400 Body temperature 97.39 [degF] Halima Dahlhausen LAB SUPPORT TECH.[employer] Work Phone: [facility] 02-17-2022 10:32-0400 Body weight 94.8 kg Halima Dahlhausen LAB SUPPORT TECH.[employer] Work Phone: [facility] 02-17-2022 10:32-0400 Diastolic blood pressure 60 mm[Hg] Halima Dahlhausen LAB SUPPORT TECH.[employer] Work Phone: [facility] 02-17-2022 10:32-0400 Heart rate 78 /min Halima Dahlhausen LAB SUPPORT TECH.[employer] Work Phone: [facility] 02-17-2022 10:32-0400 Respiratory rate 18 /min Halima Dahlhausen LAB SUPPORT TECH.[employer] Work Phone: [facility] 02-17-2022 10:32-0400 SaO2% (BldA) [Mass fraction] 97 % Halima Harvey LAB SUPPORT TECH.[employer] Work Phone: [facility] 02-17-2022 10:32-0400 Systolic blood pressure 108 mm[Hg] Halima Harvey LAB SUPPORT TECH.[employer] Work Phone: [facility] 02-08-2022 11:11-0400 Body height 185.[address] George Vaughan Work Phone: [facility] Work Phone: 02-08-2022 11:11-0400 Body mass index (BMI) [Ratio] 27.6 kg/m2 Dr. George Vaughan Work Phone: [facility] Work Phone: 02-08-2022 11:11-0400 Body weight 94.[address] George Vaughan Work Phone: [facility] Work Phone: 02-08-2022 11:11-0400 Diastolic blood pressure 71 mm[Hg] Dr. George Vaughan Work Phone: [facility] Work Phone: 02-08-2022 11:11-0400 Heart rate 65 /min Dr. George Vaughan Work Phone: [facility] Work Phone: 02-08-2022 11:11-0400 Respiratory rate 16 /min Dr. George Vaughan Work Phone: [facility] Work Phone: 02-08-2022 11:11-0400 Systolic blood pressure 125 mm[Hg] Dr. George Vaughan Work Phone: [facility] Work Phone: 01-27-2022 14:55-0400 Diastolic blood pressure 61 mm[Hg] Dr. George Vaughan Work Phone: [facility] Work Phone: 01-27-2022 14:55-0400 Heart rate 61 /min Dr. George Vaughan Work Phone: [facility] Work Phone: 01-27-2022 14:55-0400 SaO2% (BldA) [Mass fraction] 99 % Dr. George Vaughan Work Phone: [facility] Work Phone: 01-27-2022 14:55-0400 Systolic blood pressure 131 mm[Hg] Dr. George Vaughan Work Phone: [facility] Work Phone: 01-27-2022 14:11-0400 Body temperature 98.4 [degF] Dr. George Vaughan Work Phone: [facility] Work Phone: 01-27-2022 14:11-0400 Respiratory rate 20 /min Dr. George Vaughan Work Phone: [facility] Work Phone: 01-27-2022 13:57-0400 Body height 185.[address] George Vaughan Work Phone: [facility] Work Phone: 01-27-2022 13:57-0400 Body mass index (BMI) [Ratio] 27.4 kg/m2 Dr. George Vaughan Work Phone: [facility] Work Phone: 01-27-2022 13:57-0400 Body weight 94.[address] George Vaughan Work Phone: [facility] Work Phone: 12-20-2021 07:58-0400 Body height 185.4 cm Sandra Espitia MD Work Phone: [facility] 12-20-2021 07:58-0400 Body weight 94.85 kg Sandra Espitia MD Work Phone: [facility] 12-20-2021 07:58-0400 Diastolic blood pressure 72 mm[Hg] Sandra Espitia MD Work Phone: [facility] 12-20-2021 07:58-0400 Heart rate 69 /min Sandra Espitia MD Work Phone: [facility] 12-20-2021 07:58-0400 SaO2% (BldA) [Mass fraction] 98 % Sandra Espitia MD Work Phone: [facility] 12-20-2021 07:58-0400 Systolic blood pressure 121 mm[Hg] Sandra Espitia MD Work Phone: [facility] 11-02-2021 15:25-0400 Diastolic blood pressure 88 mm[Hg] George Vaughan MD Work Phone: [facility] 11-02-2021 15:25-0400 Systolic blood pressure 148 mm[Hg] George Vaughan MD Work Phone: [facility] 11-02-2021 15:22-0400 Body weight 93.62 kg George Vaughan MD Work Phone: [facility] 11-02-2021 15:22-0400 Heart rate 64 /min George Vaughan MD Work Phone: [facility] 11-02-2021 15:22-0400 Respiratory rate 16 /min George Vaughan MD Work Phone: [facility] 11-01-2021 12:50-0400 Body mass index (BMI) [Ratio] 27.1 kg/m2 Dr. George Vaughan Work Phone: [facility] Work Phone: 11-01-2021 12:50-0400 Body weight 93.[address] eGorge Vaughan Work Phone: [facility] Work Phone: 11-01-2021 12:50-0400 Diastolic blood pressure 67 mm[Hg] Dr. George Vaughan Work Phone: [facility] Work Phone: 11-01-2021 12:50-0400 Heart rate 69 /min Dr. George Vaughan Work Phone: [facility] Work Phone: 11-01-2021 12:50-0400 Respiratory rate 18 /min Dr. George Vaughan Work Phone: [facility] Work Phone: 11-01-2021 12:50-0400 SaO2% (BldA) [Mass fraction] 99 % Dr. George Vaughan Work Phone: [facility] Work Phone: 11-01-2021 12:50-0400 Systolic blood pressure 129 mm[Hg] Dr. George Vaughan Work Phone: [facility] Work Phone: 09-13-2021 14:44-0400 Body weight 94.89 kg Delia Waterman LAB SUPPORT TECH.[employer] Work Phone: [facility] 09-13-2021 14:44-0400 Diastolic blood pressure 58 mm[Hg] Delia Mongehof LAB SUPPORT TECH.[employer] Work Phone: [facility] 09-13-2021 14:44-0400 Heart rate 66 /min Delia Hewittf LAB SUPPORT TECH.[employer] Work Phone: [facility] 09-13-2021 14:44-0400 Respiratory rate 18 /min Delia Hewittf LAB SUPPORT TECH.[employer] Work Phone: [facility] 09-13-2021 14:44-0400 SaO2% (BldA) [Mass fraction] 96 % Delia Waterman LAB SUPPORT TECH.[employer] Work Phone: [facility] 09-13-2021 14:44-0400 Systolic blood pressure 128 mm[Hg] Delia Mongehof LAB SUPPORT TECH.[employer] Work Phone: [facility] 07-27-2016 15:01-0500 BMI (Body Mass Index) 28.53 kg/m2 [facility] Work Phone: 07-27-2016 15:01-0500 BP Diastolic 56 mm[Hg] [facility] Work Phone: 07-27-2016 15:01-0500 BP Systolic 142 mm[Hg] [facility] Work Phone: 07-27-2016 15:01-0500 Height 185.42 cm [facility] Work Phone: 07-27-2016 15:01-0500 Pulse (Heart Rate) 64 /min [facility] Work Phone: 07-27-2016 15:01-0500 Respiratory Rate 12 /min [facility] Work Phone: 07-27-2016 15:01-0500 Weight 98.11 kg [facility] Work Phone: 02-08-2016 11:15-0400 BSA (Body Surface Area) 2.23 m2 [facility] Work Phone: Encounters Encounter Date Encounter Type Care Provider Facility Start: 01-10-2025 Non-patient / Non-visit Josue Alvarez nd DO -[facility] Start: 01-10-2025 End: 01-10-2025 Admission to same day surgery center Josue Seals DO -Endoscopy Work Phone: Start: 01-10-2025 End: 01-10-[address] George Vaughan MD Work Phone: -Endoscopy Start: 12-27-2024 End: 12-27-2024 ambulatory GEORGE VAUGHAN Facility:[facility] Start: 12-23-2024 End: 12-23-[address] George Vaughan MD Work Phone: -Radiology [facility] Start: 12-23-2024 End: 12-23-2024 Patient encounter procedure Kristan NICHOLSON -Radiology [facility] Work Phone: Start: 12-23-2024 End: 12-23-2024 ambulatory George Vaughan Facility:[facility] Start: 12-20-2024 End: 01-06-2025 Telephone encounter Landon Strange MD Work Phone: Neurology Comment on above: Patient Update (Note s to Dr Arguello) Start: 12-20-2024 End: 12-20-2024 Patient encounter procedure Landon Strange MD Work Phone: Neurology Comment on above: Lightheaded (Primary Dx); Orthostatic hypotension; Myelomalacia of cervical cord (HCC); Spinal stenosis of cervical region; Spinal stenosis of lumbar region, unspecified whether neurogenic 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 present; History of stroke; Abnormality of gait Start: 12-20-2024 End: 12-20-2024 ambulatory LANDON STRANGE JR Facility:[facility] Start: 12-18-2024 End: 12-18-2024 ambulatory GEORGE VAUGHAN Facility:[facility] Start: 12-18-2024 End: 12-18-2024 Patient encounter procedure Gertrude Allen APRN.[employer] Work Phone: General Surgery Comment on above: Weak urinary stream (Primary Dx); Screening for genitourinary condition; Umbilical hernia without obstruction and without gangrene Start: 12-18-2024 End: 12-18-2024 Telephone encounter Sheldon Slater MD Work Phone: General Surgery Start: 12-18-2024 End: 12-18-2024 ambulatory GERTRUDE ALLEN Facility:[facility] Start: 12-13-2024 End: 12-13-2024 ambulatory SHELDON SLATER Facility:[facility] Start: 12-06-2024 End: 12-06-2024 Admission to same day surgery center Josuemishel Seals DO -Endoscopy Work Phone: Start: 12-06-2024 End: 12-06-[address] George Vaughan MD Work Phone: -Endoscopy Start: 12-02-2024 End: 12-02-2024 Patient encounter procedure Kristan NICHOLSON -[facility] Work Phone: Start: 12-02-2024 End: 12-02-[address] George Vaughan MD Work Phone: [facility] Start: 11-29-2024 End: 12-02-2024 Telephone encounter Sindy Denise APRN.CNP Work Phone: Pre Anesthesia Start: 11-29-2024 End: 11-29-2024 Admission to establishment [facility] Work Phone: Pre Anesthesia Start: 11-29-2024 End: 11-29-2024 Anesthesia consultation [facility] Work Phone: Pre Anesthesia Comment on above: Pre-operative examin ation (Primary Dx); Coronary artery disease involving [place] coronary artery of [place] heart without angina pectoris; Essential hypertension, benign; Hyperlipidemia, mixed; REHAN on CPAP; Gastroesophageal reflux disease, unspecified whether esophagitis present; Hypertrophy of prostate with urinary obstruction; Nontoxic multinodular goiter; Anemia, unspecified type; Impaired fasting glucose; Cervical spondylosis; Depression, unspecified depression type; History of total right hip arthroplasty; Orthostatic hypotension; SOB (shortness of breath) on exertion; History of CVA in adulthood Start: 11-29-2024 End: 11-29-2024 Preprocedural examination done [facility] Work Phone: [facility] Start: 11-29-2024 End: 11-29-2024 ambulatory GEORGE VAUGHAN Facility:[facility] Start: 11-29-2024 Encounter for other preprocedural examination GEORGE VAUGHAN [facility] Start: 11-29-2024 End: 11-29-2024 Patient encounter procedure Harika NICHOLSON -[facility] Work Phone: Start: 11-29-2024 End: 11-29-2024 Patient encounter status Harika Church NP-[facility] Start: 11-29-2024 End: 11-29-[address] George Vaughan MD Work Phone: [facility] Start: 11-21-2024 End: 11-21-2024 Telephone encounter Argenis Jain RN Pre Anesthesia Comment on above: Preparations For Roselyn shai (Preoperative Plavix instructions) Start: 11-20-2024 End: 11-26-2024 Admission to same day surgery center Argenis Jain RN Pre Anesthesia Comment on above: Preparations For Roselyn shai (PACC) Start: 11-20-2024 End: 11-26-2024 ambulatory Argenis Jain RN Pre Anesthesia Start: 11-20-2024 End: 11-20-2024 Telephone encounter Argenis Jain RN Pre Anesthesia Comment on above: Preparations For Roselyn shai (Preoperative Plavix instructions) Refill Request Start: 11-19-2024 End: 11-19-2024 Patient encounter procedure Sheldon Slater MD Work Phone: General Surgery Comment on above: Umbilical hernia wit hout obstruction and without gangrene (Primary Dx) Start: 11-19-2024 End: 11-19-2024 ambulatory GEORGE VAUGHAN Facility:[facility] Start: 11-13-2024 End: 11-13-2024 Emergency department patient visit Dr. George Vaughan MD Work Phone: -Emergency Department Work Phone: Start: 09-27-2024 End: 09-27-2024 Telephone encounter Landon Strange MD Work Phone: Neurology Start: 09-18-2024 End: 09-18-2024 Refill George Vaughan MD Work Phone: [facility] Comment on above: Refill Request Start: 08-29-2024 End: 08-29-2024 Follow-up encounter George Vaughan MD Work Phone: [facility] Comment on above: Results Start: 08-27-2024 End: 10-27-2024 Follow-up encounter Jessy Weldon PA-C Work Phone: Neurology Start: 08-23-2024 End: 08-23-2024 Telephone encounter Jessy Weldon PA-C Work Phone: Neurology Comment on above: Patient Question Start: 08-23-2024 End: 08-23-2024 ambulatory GEORGE VAUGHAN Facility:[facility] Start: 08-21-2024 End: 08-21-2024 Telephone encounter Jessy Weldon PA-C Work Phone: Neurology Start: 08-21-2024 End: 08-21-2024 Patient encounter procedure Jessy Weldon PA-C Work Phone: Neurology Comment on above: Malaise and fatigue (Primary Dx); Lightheaded; Recurrent falls; Orthostatic hypotension; Weakness of both lower extremities; History of stroke; Spinal stenosis of cervical region Start: 08-21-2024 End: 08-21-2024 ambulatory [facility] Facility:[facility] Start: 07-29-2024 Non-patient / Non-visit Dr. Tiara Andrews MD -[facility] Start: 07-29-2024 Non-patient / Non-visit Dr. Nawaf cox [facility] Work Phone: Start: 07-28-2024 Non-patient / Non-visit Dr. Tiara Brown MD -[facility] Work Phone: Start: 07-28-2024 End: 07-29-2024 ambulatory [facility] Facility:[facility] Start: 07-28-2024 End: 07-29-2024 Evaluation and management of inpatient Dr. Nini Brown MD -Progressive Care Unit Work Phone: Start: 07-28-2024 End: 07-29-[address] George Vaughan MD Work Phone: [facility] Work Phone: Start: 07-23-2024 End: 07-23-2024 ambulatory [facility] Facility:[facility] Start: 07-23-2024 End: 07-23-2024 Patient encounter procedure George Vaughan MD Work Phone: [facility] Comment on above: Essential hypertensi on, benign (Primary Dx); Hyperlipidemia, mixed; Impaired fasting glucose; Coronary artery disease involving [place] heart without angina pectoris, unspecified vessel or lesion type; Depression, unspecified depression type; Tremor; Thoracic back pain, unspecified back pain laterality, unspecified chronicity; Cervicalgia; Cervical spondylosis; Lumbar radiculopathy; Myelomalacia of cervical cord (HCC); Generalized weakness; Balance disorder Start: 05-27-2024 End: 05-27-2024 Refill George Vaughan MD Work Phone: [facility] Comment on above: Refill Request Start: 05-16-2024 End: 05-16-2024 Patient encounter procedure Ama Brian APRN.[employer] Work Phone: [facility] Comment on above: Abrasion of left ear canal, initial encounter (Primary Dx) Start: 05-16-2024 End: 05-16-2024 ambulatory GEORGE VAUGHAN Facility:[facility] Start: 05-06-2024 End: 05-06-2024 ambulatory Jessy Weldon PA-C Work Phone: Neurology Comment on above: new medcation florin ef Start: 05-01-2024 End: 05-01-2024 Telephone encounter Jessy Weldon PA-C Work Phone: Neurology Start: 04-30-2024 End: 04-30-2024 Patient encounter procedure Jessy Weldon PA-C Work Phone: Neurology Comment on above: Malaise and fatigue (Primary Dx); Lightheaded; Recurrent falls; Orthostatic hypotension; Weakness of both lower extremities; Low vitamin D level; Vitamin D deficiency, unspecified Start: 04-30-2024 End: 04-30-2024 ambulatory GEORGE VAUGHAN Facility:[facility] Start: 03-29-2024 End: 03-29-2024 Telephone encounter Halima Harvey APRN.[employer] Work Phone: Neurology Comment on above: Request to hold anti coagulant Start: 02-28-2024 End: 02-28-2024 Refill George Vaughan MD Work Phone: [facility] Comment on above: Refill Request Start: 02-21-2024 End: 02-23-2024 ambulatory George Vaughan MD Work Phone: [facility] Comment on above: Permanent handicap p lacard Start: 02-10-2024 End: 02-10-2024 Emergency department patient visit David Doll Facility:[facility] Start: 01-26-2024 End: 01-26-2024 Patient encounter procedure Landon Strange MD Work Phone: Neurology Comment on above: Lightheaded (Primary Dx); Orthostatic hypotension; Recurrent falls; Weakness of both lower extremities; Myelomalacia of cervical cord (HCC); Spinal stenosis of cervical region; Spinal stenosis of lumbar region, unspecified whether neurogenic 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 present; History of stroke; Headaches Start: 01-26-2024 End: 01-26-2024 ambulatory LANDON STRANGE JR Facility:[facility] Start: 12-30-2023 End: 12-30-2023 Patient encounter procedure George Vaughan MD Work Phone: [facility] Comment on above: Essential hypertensi on, benign (Primary Dx); Hyperlipidemia, mixed; Impaired fasting glucose; Actinic keratosis; Tremor Start: 12-05-2023 Refill Pavel Parks MD Work Phone: Orthopaedics Comment on above: Refill Request Start: 11-28-2023 Refill George barclay MD Work Phone: [facility] Comment on above: Refill Request Start: 10-18-2023 End: 10-18-2023 Patient encounter procedure Jessy Weldon PA-C Work Phone: Neurology Comment on above: Tremor of right hand (Primary Dx); Frequent falls; Spinal stenosis of cervical region; Spinal stenosis of lumbar region, unspecified whether neurogenic 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 present; Lightheadedness; Cerebrovascular accident (CVA), unspecified mechanism (HCC); Headaches; Orthostatic hypotension; Myelomalacia of cervical cord (HCC) Start: 10-09-2023 Telephone encounter Jessy ramsey PA-C Work Phone: Neurology Comment on above: Orders Start: 10-06-2023 Telephone encounter Halima Goff APRN.CNP Work Phone: Neurology Comment on above: Orders (Received fax from [facility], [facility] for request to hold clopidogrel for procedure on 10/13/2023. Given to provider for review. / /MARY 02/28/2023//) Start: 09-19-2023 End: 09-19-2023 Subsequent hospital visit by physician Minerva [facility] Reeves Work Phone: Radiology Comment on above: Closed nondisplaced fracture of fifth metatarsal bone of left foot, initial encounter [S92.355A] Start: 08-30-2023 Refill George barclay MD Work Phone: [facility] Comment on above: Refill Request Start: 08-25-2023 Orders Only Omar kline Work Phone: Podiatry Comment on above: Closed nondisplaced fracture of fifth metatarsal bone of left foot, initial encounter (Primary Dx) Start: 08-21-2023 End: 08-21-2023 Subsequent hospital visit by physician Minerva [facility] Reeves Work Phone: Radiology Comment on above: Closed nondisplaced fracture of fifth metatarsal bone of left foot, initial encounter [S92.355A] Start: 08-21-2023 End: 08-21-2023 Patient encounter procedure Omar Thompsoncarlo Work Phone: Podiatry Comment on above: Closed nondisplaced fracture of fifth metatarsal bone of left foot, initial encounter (Primary Dx); Pain of left calf Start: 08-15-2023 Telephone encounter [facility]ron MD [facility] Phone[facility] Comment on above: Refill Request Start: 08-14-2023 Telephone encounter Omar Rafa simmons Work Phone: Podiatry Comment on above: Appointment Start: 08-11-2023 End: 08-11-2023 Subsequent hospital visit by physician Minerva [facility] Work Phone: Radiology Comment on above: Foot pain, left [M79 .672] Start: 08-11-2023 End: 08-11-2023 Office outpatient visit 15 minutes Zander Chavez APRN.CNP Work Phone: [facility] Comment on above: Closed nondisplaced fracture of fifth metatarsal bone of left foot, initial encounter (Primary Dx); Foot pain, left; Pain of toe of left foot Start: 08-11-2023 End: 08-11-[address] George Vaughan Work Phone: [facility] Work Phone: Start: 08-11-2023 End: 08-11-[address] George Vaughan Work Phone: [facility]-Radiology, [facility] Work Phone: Start: 06-22-2023 End: 06-22-[address] George Vaughan Work Phone: [facility], [facility] Work Phone: Start: 05-09-2023 Telephone encounter George herron MD Work Phone: [facility] Start: 04-20-2023 Non-patient / Non-visit Dr. Leyla Vaughan Work Phone: [facility] Work Phone: Start: 04-18-2023 Non-patient / Non-visit Dr. Leyla Vaughan Work Phone: [facility] Work Phone: Start: 04-17-2023 Non-patient / Non-visit Dr. Leyla Vaughan Work Phone: [facility] Work Phone: Start: 04-16-2023 Non-patient / Non-visit Dr. Leyla Vaughan Work Phone: [facility] Work Phone: Start: 04-16-2023 End: 04-18-2023 Evaluation and management of inpatient [facility]-Progressive Care Unit Work Phone: Start: 04-16-2023 observation encounter [facility] Work Phone: Start: 03-13-2023 End: 03-13-2023 Emergency department patient [facility] Start: 02-28-2023 Refill Halima Alejo usemishel LAB SUPPORT TECH.[employer] Work Phone: Neurology Comment on above: Med Change Request Start: 02-26-2023 Telephone encounter Sveta Burgess leny LAB SUPPORT TECH.[employer] Work Phone: [facility] Comment on above: Results Start: 02-25-2023 End: 02-25-2023 Patient encounter procedure Charlotte Older LAB SUPPORT TECH.[employer] Work Phone: [facility] Comment on above: Urinary frequency (P rimary Dx); Dysuria Start: 02-24-2023 End: 02-24-2023 Emergency department patient visit Dr. [facility] Start: 02-21-2023 Refill George barclay MD Work Phone: [facility] Comment on above: Refill Request Start: 02-09-2023 Telephone encounter Jessy ramsey PA-C Work Phone: Neurology Comment on above: Received Outside Med ical Records ([facility]-spine records Dr. Maldonado) Start: 01-24-2023 Telephone encounter Pavel triplett MD Work Phone: Orthopaedics Comment on above: Dental office questi on Start: 01-12-2023 Telephone encounter George herron MD Work Phone: [facility] Comment on above: Forms (Medical clear ance form-[facility]) Start: 12-29-2022 End: 12-29-2022 Patient encounter procedure Halima Harvey LAB SUPPORT TECH.[employer] Work Phone: Neurology Comment on above: Headaches (Primary D x); Frequent falls; Spinal stenosis of cervical region; Spinal stenosis of lumbar region, unspecified whether neurogenic 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 present; Myelomalacia of cervical cord (HCC); Lightheadedness; Tremor of right hand; Cerebrovascular accident (CVA), unspecified mechanism (HCC) Start: 12-19-2022 End: 12-19-2022 Patient encounter procedure Omar Concepcion Work Phone: Podiatry Comment on above: Ingrown nail; Nail fungus Start: 12-15-2022 End: 12-15-[address] George Vaughan Work Phone: [facility] Work Phone: Start: 11-09-2022 End: 11-09-2022 ambulatory [facility] Work Phone: Start: 11-09-2022 End: 11-09-2022 Patient encounter procedure [facility] Start: 10-11-2022 End: 10-11-2022 ambulatory [facility] Work Phone: Start: 10-11-2022 End: 10-11-2022 Patient encounter procedure [facility]-Laboratory Start: 08-15-2022 Telephone encounter Halima Goff APRN.CNP Work Phone: Neurology Comment on above: Medication Problem ( Plavix hold for procedure) Start: 08-08-2022 Refill George barclay MD Work Phone: [facility] Comment on above: Refill Request Start: 06-07-2022 Non-patient / Non-visit Dr. Leyla Vaughan Work Phone: [facility] Start: 06-07-2022 End: 06-07-[address] George Vaughan Work Phone: [facility] Work Phone: Start: 06-07-2022 End: 06-07-[address] George Vaughan Work Phone: [facility]-Cardiovascular Services Start: 05-26-2022 End: 05-26-[address] George Vaughan Work Phone: [facility] Work Phone: Start: 05-26-2022 End: 05-26-[address] George Vaughan Work Phone: [facility] Start: 05-18-2022 End: 05-18-[address] George Vaughan Work Phone: [facility]-Laboratory Start: 05-04-2022 Telephone encounter aHlima Goff APRN.[employer] Work Phone: Neurology Comment on above: Medication Problem Start: 05-04-2022 End: 05-04-2022 Patient encounter procedure George Vaughan MD Work Phone: [facility] Comment on above: Depression, unspecif ied depression type (Primary Dx); Essential hypertension, benign; Hyperlipidemia, mixed; Coronary artery disease involving [place] coronary artery of [place] heart without angina pectoris; Gait instability; Impaired fasting glucose Start: 04-29-2022 Refill Halima gaspar APRN.[employer] Work Phone: Neurology Comment on above: Refill Request Start: 03-14-2022 Refill George barclay MD Work Phone: [facility] Comment on above: Refill Request Start: 03-04-2022 Telephone encounter Halima Goff APRN.[employer] Work Phone: Neurology Comment on above: Results Start: 02-28-2022 End: 02-28-2022 Subsequent hospital visit by physician [employer] [facility] W[facility] (I-Stat/1.5t) Work Phone: Radiology Comment on above: Transient cerebral i schemia, unspecified type [G45.9] Start: 02-22-2022 Non-patient / Non-visit Dr. Leyla Vaughan Work Phone: [facility] Start: 02-22-2022 End: 02-22-[address] George Vaughan Work Phone: [facility] Work Phone: Start: 02-22-2022 End: 02-22-[address] George Vaughan Work Phone: [facility] Start: 02-17-2022 End: 02-17-2022 Patient encounter procedure Halima Harvey APRN.[employer] Work Phone: Neurology Comment on above: Headaches (Primary D x); Frequent falls; Spinal stenosis of cervical region; Spinal stenosis of lumbar region, unspecified whether neurogenic 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 present; Lightheadedness; Myelomalacia of cervical cord (HCC); Tremor of right hand; Cerebrovascular accident (CVA), unspecified mechanism (HCC) Start: 02-08-2022 End: 02-08-[address] George Vaughan Work Phone: [facility] Start: 02-01-2022 Telephone encounter Halima Goff APRN.[employer] Work Phone: Neurology Comment on above: Results Start: 01-27-2022 End: 01-27-2022 Emergency department patient visit Dr. George Vaughan Work Phone: [facility] Start: 01-25-2022 End: 01-25-2022 Subsequent hospital visit by physician Beverley [facility] Ws (I-Stat) Work Phone: Cat Scan Comment on above: Cerebral infarction, unspecified mechanism (HCC) [I63.9] Start: 01-20-2022 Telephone encounter Halima Goff APRN.[employer] Work Phone: Neurology Comment on above: Lab Orders Start: 01-20-2022 End: 01-20-2022 ambulatory Delia Waterman APRN.CNP Work Phone: [facility] Comment on above: COVID-19 (Primary Dx ) Start: 01-20-2022 End: 01-20-2022 Telemedicine consultation with patient Delia Waterman APRN.CNP Work Phone: [facility] Start: 12-20-2021 End: 12-20-2021 Patient encounter procedure Sandra Espitia MD Work Phone: Neurology Comment on above: Essential tremor (Pr imary Dx) Start: 12-15-2021 Refill Halima gaspar APRN.[employer] Work Phone: Neurology Comment on above: Refill Request Start: 12-07-2021 Telephone encounter Halima Goff APRN.[employer] Work Phone: Neurology Comment on above: Results Start: 12-01-2021 End: 12-01-2021 Subsequent hospital visit by physician Mri Radio [facility] Wstr (I-Stat/1.5t) Work Phone: Radiology Comment on above: Spinal stenosis of c ervical region [M48.02] Frequent falls [R29. 6] Start: 11-26-2021 Telephone encounter Halima Goff APRN.[employer] Work Phone: Neurology Comment on above: Patient Request Start: 11-02-2021 End: 11-02-2021 Patient encounter procedure George Vaughan MD Work Phone: [facility] Comment on above: Essential hypertensi on, benign (Primary Dx); Hyperlipidemia, mixed; WILY (generalized anxiety disorder); Depression, unspecified depression type; Frequent falls; Vasovagal syncope; Anemia, unspecified type; Cervicalgia; REHAN on CPAP; Chronic neck pain; Spinal stenosis of lumbar region, unspecified whether neurogenic 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 present; Hypertrophy of prostate with urinary obstruction; Elevated glucose Start: 11-01-2021 End: 11-01-[address] George Vaughan Work Phone: [facility] Start: 09-13-2021 End: 09-13-2021 Patient encounter procedure Delia Waterman APRN.[employer] Work Phone: [facility] Comment on above: Frequent falls (Prim harris Dx); Tremor of right hand; Muscle tension pain; Dizziness Start: 10-29-2020 End: 10-29-2020 Subsequent hospital visit by physician Xr [facility] Work Phone: Radiology Comment on above: Cough [R05] Start: 10-20-2020 Refill George barclay MD Work Phone: [facility] Comment on above: Opened In Error Start: 07-04-[address] George Vaughan Work Phone: [facility] Procedures Date Procedure Procedure Detail Performing Clinician Start: 01-10-[address] George lobato MD Work Phone: Start: 12-23-[address] George Vaughan MD Work Phone: Start: 12-06-[address] George Vaughan MD Work Phone: Start: 11-13-2024 X-ray of chest, PA and lateral views Dr. George Vaughan MD Work Phone: Start: 11-13-2024 Computed tomography of abdomen and pelvis with intravenous contrast Dr. George Vaughan MD Work Phone: Start: 11-13-[address] George Vaughan MD Work Phone: Start: 07-29-2024 Cardiovascular stress test using pharmacologic stress agent Dr. George Vaughan MD Work Phone: Start: 07-29-[address] George Vaughan MD Work Phone: Start: 07-28-2024 SARS-CoV-2, Influenza & RSV (PCR) Dr. Leyla Vaughan MD Work Phone: Start: 07-28-2024 Plain chest X-ray Dr. George Vaughan MD Work Phone: Start: 08-11-2023 Radex foot complete minimum 3 views Shreya Chavez LAB SUPPORT TECH.[employer] Work Phone: Start: 08-11-2023 Plain x-ray of pelvis and lower extremity Dr. George Vaughan Work Phone: Start: 08-11-2023 X-ray of lumbosacral spine Dr. George lobato Work Phone: Start: 06-22-2023 Radiography of thoracic spine Dr. George dubose Work Phone: Start: 04-18-2023 Cardiovascular stress test using pharmacologic stress agent Dr. George Vaughan Work Phone: Start: 04-16-2023 Plain chest X-ray Start: 03-13-2023 Plain chest X-ray Dr. George Vaughan Work Phone: Start: 03-13-2023 Radiologic examination of knee Dr. George Vaughan Work Phone: Start: 03-13-2023 X-ray of lumbosacral spine Dr. George lobato Work Phone: Start: 02-25-2023 Urnls dip stick/tablet rgnt auto w/o microscopy Abimael Garrison MD Work Phone: Start: 02-24-2023 Plain x-ray of elbow Dr. George Vaughan Work Phone: Start: 02-24-2023 CT of head without contrast Dr. George herron Work Phone: Start: 02-24-2023 CT of lumbar spine Dr. George Vaughan Work Phone: Start: 11-09-2022 MRI of lumbar spine Start: 10-11-2022 Plain chest X-ray Start: 06-07-2022 Radionuclide imaging of perfusion of myocardium under exercise stress Dr. George jackson Work Phone: Start: 02-28-2022 Mri brain brain stem w/o contrast material Halima Dahlhausen LAB SUPPORT TECH.[employer] Work Phone: Start: 01-25-2022 Ct angiography head w/contrast/noncontrast Halima Dahlhausen LAB SUPPORT TECH.[employer] Work Phone: Start: 01-25-2022 Ct angiography neck w/contrast/noncontrast Halima Dahlhausen LAB SUPPORT TECH.[employer] Work Phone: Start: 12-01-2021 Mri spinal canal cervical w/o contrast matrl Halima Harvey LAB SUPPORT TECH.[employer] Work Phone: Start: 10-29-2020 Radiologic exam chest 2 views George herron MD Work Phone: Start: 01-23-2017 End: 05-17-2017 *Hepatic Function Panel Flip Kramer MD Start: 01-23-2017 End: 05-17-2017 Lipid panel [AGGREGATE] Flip Kramer MD Start: 07-27-2016 End: 07-27-2016 Follow Up Appt 1 year Flip Miranda Start: 07-27-2016 End: 07-27-2016 PFM Flip Kramer MD Start: 07-21-2016 End: 07-21-2016 *Hepatic Function Panel Flip Kramer MD Start: 07-21-2016 End: 07-21-2016 Lipid panel [AGGREGATE] Flip Kramer MD Start: 02-08-2016 End: 02-08-2016 Follow Up Appt 9 months Flip Kramer MD Start: 02-08-2016 End: 02-08-2016 PFM Flip Kramer MD Start: 01-22-2016 End: 02-02-2016 *Hepatic Function Panel Flip Kramer MD Start: 01-22-2016 End: 02-02-2016 Lipid panel [AGGREGATE] Flip Kramer MD Start: 07-29-2015 End: 07-29-2015 Follow Up Appt 6 months Flip Kramer MD Start: 07-29-2015 End: 07-29-2015 PFM Flip Kramer MD Start: 07-16-2015 End: 07-27-2015 *Hepatic Function Panel Flip Kramer MD Start: 07-16-2015 End: 07-27-2015 Lipid panel [AGGREGATE] Flip Kramer MD Start: 02-09-2015 End: 02-18-2015 *BMP Flip Kramer MD Start: 01-30-2015 End: 01-30-2015 Coagulation factor induced.INR assay in platelet poor plasma Flip Kramer MD Start: 01-30-2015 End: 01-31-2015 Nurse, Teaching, Wound Check (no charge) Sheldon Sawant MD Work Phone: Start: 01-21-2015 End: 01-29-2015 *BMP Flip Kramer MD Start: 01-21-2015 End: 01-29-2015 CBC W Auto Differential panel - Blood Flip Kramer MD Start: 01-21-2015 End: 01-22-2015 Documentation of current medications Flip Kramer MD Start: 01-21-2015 End: 01-21-2015 Follow Up Appt 6 months Flip Kramer MD Start: 01-21-2015 End: 01-21-2015 PFM Flip Kramer MD Start: 06-12-2014 End: 06-13-2014 Documentation of current medications Mallorie Santos PA-C Work Phone: Start: 06-12-2014 End: 06-12-2014 Follow Up Appt 6 months Mallorie Santos PA-C Work Phone: Start: 06-12-2014 End: 06-12-2014 PFM Mallorie Santos PA-C Work Phone: Start: 12-11-2013 End: 05-28-2014 Follow Up Appt 6 months Flip Kramer MD Start: 12-11-2013 End: 05-28-2014 MMM Flip Kramer MD Start: 06-18-2013 End: 06-18-2013 Follow Up Appt 6 months Mallorie Santos PA-C Work Phone: Start: 06-18-2013 End: 06-18-2013 Follow Up Appt Other Mallorie Santos PA-C Work Phone: Start: 06-18-2013 End: 06-18-2013 PFM Mallorie Santos PA-C Work Phone: Start: 12-20-2012 End: 03-12-2013 *Hepatic Function Panel Flip Kramer MD Start: 12-20-2012 End: 12-20-2012 Follow Up Appt 6 months Flip Kramer MD Start: 12-20-2012 End: 03-12-2013 Lipid panel [AGGREGATE] Flip Kramer MD Start: 12-20-2012 End: 12-20-2012 MMM Flip Kramer MD Start: 06-11-2012 End: 06-12-2012 *Hepatic Function Panel Flip Kramer MD Start: 06-11-2012 End: 06-11-2012 Follow Up Appt 6 months Flip Kramer MD Start: 06-11-2012 End: 06-12-2012 Lipid panel [AGGREGATE] Flip Kramer MD Start: 12-12-2011 End: 12-12-2011 Follow Up Appt 6 months Flip Kramer MD Start: 12-12-2011 End: 12-12-2011 Follow Up Appt Other Flip Kramer MD Start: 12-12-2011 End: 12-12-2011 Lipid panel [AGGREGATE] Flip Kramer MD Start: 11-24-2011 End: 06-07-2012 *Hepatic Function Panel Flip Kramer MD Start: 11-24-2011 End: 06-07-2012 Lipid panel [AGGREGATE] Flip Kramer MD Start: 09-28-2011 End: 09-28-2011 Follow Up Appt 6 months Flip Kramer MD Plan of Treatment Date Care Activity Detail Author Start: 02-24-2033 Urine microalbumin profile DTaP,Tdap,Td Vaccine (3 - Td or Tdap) [facility] Start: 01-23-2029 Urine microalbumin profile [facility] Start: 08-24-2027 Diabetes Screening Diabetes Screenin g [facility] Start: 08-23-2025 Hepatitis B surface antibody level LDL Cholesterol [facility] Start: 04-25-2025 DIABETES SCREEN DIABETES SCREEN [facility] Start: 03-31-2025 End: 03-31-2025 Patient encounter procedure 03/31/2025 3:40 PM EST Office Visit Neurology [address] [place] [id number] Landon Strange Jr., MD [address] [place] [address] 3-4 month follow up Neurology Comment on above: 3-4 month follow up Start: 02-22-2025 Hemoglobin A1c measurement HbA1C [facility] Start: 02-07-2025 End: 02-07-2025 Patient encounter procedure 02/07/2025 10:00 AM EDT Office Visit Neurology [facility] [place] [address] Nuria Song MD [address] [place] [address] Orthostatic hypotension [I95.1] Neurology Comment on above: Orthostatic hypotens ion [I95.1] Start: 02-04-2025 End: 02-04-2025 Patient encounter procedure 02/04/2025 9:20 AM EDT Office Visit Family [facility] [address] [place] [id number] George Vaughan MD [address] [place] [address] 6 mo f/u [facility] Comment on above: 6 mo f/u Start: 01-23-2025 RSV Vaccine (1 - 1-d ose 75+ series) RSV Vaccine (1 - 1-dose 75+ series) [facility] Comment on above: Postponed from 07/17 (Insurance Coverage) Start: 01-23-2025 Shingrix Vaccine (2 of 3) Shook grix Vaccine (2 of 3) [facility] Comment on above: Postponed from 01/06 (Insurance Coverage) Start: 01-20-2025 Influenza vaccination Influenza Vacc ine (#1) [facility] Start: 01-10-2025 Patient discharge [facility] Start: 12-27-2024 End: 12-27-2024 Patient encounter procedure 12/27/2024 11:00 AM EDT Office Visit General Surgery [address] [place], [place] [id number] Gertrude Allen APRN.[employer] [address] [place] [address] Umbilical hernia 12-13-2024 Post op General Surgery Comment on above: Umbilical hernia Post op Start: 12-20-2024 End: 12-20-2024 Patient encounter procedure 12/20/2024 10:40 AM EDT Office Visit Neurology [address] [place] [address] Landon Strange Jr., MD [address] [place], [place] [id number] Follow up Neurology Comment on above: Follow up Start: 12-18-2024 End: 03-19-2025 Bacteria identified in Urine by Culture [facility] Work Phone: Comment on above: Expected: 12/18/2024 , Expires: 03/19/2025 Start: 12-13-2024 End: 12-13-2024 Admission to same day surgery center 12/13/2024 7:30 AM EDT - 12/13/2024 8:[address] [facility] [address] [place] [address] Sheldon Slater MD [address] [place] [address] HERNIORRHAPHY UMBILICAL REDUCIBLE 3cm-10cm [facility] Surgery Comment on above: HERNIORRHAPHY UMBILI HAL REDUCIBLE 3cm-10cm Start: 12-13-2024 End: 12-13-2024 HERNIORRHAPHY UMBILICAL REDUCIBLE 3cm-10cm HERNIORRHAPHY UMBILICAL REDUCIBLE 3cm-10cm Umbilical hernia without obstruction and without gangrene 12/13/2024 7:30 AM EDT ME OR Start: 12-13-2024 Subsequent hospital visit by physician 12/13/2024 7:30 AM EDT Hospital Encounter [facility] Surgery [address] [place] [address] Sheldon Slater MD [address] [place] [address] Umbilical hernia without obstruction and without gangrene [K42.9] [facility] Surgery Comment on above: Umbilical hernia wit hout obstruction and without gangrene [K42.9] Start: 12-06-2024 Esophageal motility study w/interp&rpt ESOPHAGUS MOTILITY STUDY [facility] Start: 12-06-2024 Patient discharge [facility] Start: 11-29-2024 End: 11-29-2024 Anesthesia consultation 11/29/2024 10:40 AM EDT PAT Pre Anesthesia [address] [facility] [place] [address] 1, [facility] [address] [place] [address] IN PERSON PER RN HERNIORRHAPHY UMBILICAL REDUCIBLE 3cm-10cm [[id number]] - N/A 12/13 Pre Anesthesia Comment on above: IN PERSON PER RN HER NIORRHAPHY UMBILICAL REDUCIBLE 3cm-10cm [[id number]] - N/A 12/13 Start: 11-29-2024 Evaluation of diagno stic study results [facility] Start: 11-26-2024 Hepatitis B surface antibody level LDL Cholesterol [facility] Start: 11-13-2024 [facility] Start: 11-13-2024 [facility] Start: 10-21-2024 DIABETES SCREEN DIABETES SCREEN [facility] Start: 09-12-2024 End: 09-12-2024 Patient encounter procedure 09/12/2024 10:00 AM EDT Office Visit Neurology [address] [place] [address] Minal Harden APRN.[employer] [address] [facility] [place] [address] Orthostatic hypotension [I95.1] Neurology Comment on above: Orthostatic hypotens ion [I95.1] Start: 08-08-2024 Covid-19 Vaccine () Covid-19 Vaccine () [facility] Start: 07-30-2024 End: 07-30-2024 Patient encounter procedure 07/30/2024 12:45 PM EDT Office Visit Neurology [address] [place] [address] Jessy Weldon PA-C [address] [place] [address] 3mth follow up/ mary 01/26/24 Neurology Comment on above: 3mth follow up/ mary 01/26/24 Start: 07-29-2024 Patient discharge [facility] Start: 07-29-2024 End: 10-28-2024 25-hydroxyvitamin D3 [Mass/volume] in Serum or Plasma VITAMIN D 25 HYDROXY Lab Routine Low vitamin D level Vitamin D deficiency, unspecified Expected: 07/29/2024, Expires: 10/28/2024 [facility] Comment on above: Expected: 07/29/2024 , Expires: 10/28/2024 Start: 07-29-2024 NM Heart Views W str ess and W radionuclide IV [facility] Start: 07-29-2024 Nuclear Stress Test - Chemical Nuclear Stress Test - Chemical [facility] Start: 07-28-2024 Assessment of risk o f venous thromboembolism [facility] Start: 07-28-2024 Insertion of cathete r into peripheral vein [facility] Start: 07-28-2024 Measuring intake and output [facility] Start: 07-28-2024 Providing care accor ding to standard [facility] Start: 07-28-2024 Provision of activit y privileges [facility] Start: 07-28-2024 Referral to occupati onal therapist [facility] Start: 07-28-2024 Referral to service [facility] Start: 07-28-2024 [facility] Start: 07-28-2024 Verification routine [facility] Start: 07-28-2024 Admission procedure [facility] Start: 07-28-2024 [facility] Start: 07-28-2024 [facility] Start: 07-23-2024 End: 10-22-2024 CBC panel - Blood by Automated count COMPLETE BLOOD COUNT Lab Routine Essential hypertension, benign Expected: 07/23/2024 (Approximate), Expires: 10/22/2024 [facility] Comment on above: Expected: 07/23/2024 (Approximate), Expires: 10/22/2024 Start: 07-23-2024 End: 10-22-2024 Comprehensive metabolic 2000 panel - Serum or Plasma COMPREHENSIVE METABOLIC PANEL Lab Routine Essential hypertension, benign Hyperlipidemia, mixed Impaired fasting glucose Expected: 07/23/2024 (Approximate), Expires: 10/22/2024 [facility] Work Phone: Comment on above: Expected: 07/23/2024 (Approximate), Expires: 10/22/2024 Start: 07-23-2024 End: 10-22-2024 Hemoglobin A1c in Blood HEMOGLOBIN A1C Lab Routine Impaired fasting glucose Expected: 07/23/2024 (Approximate), Expires: 10/22/2024 [facility] Comment on above: Expected: 07/23/2024 (Approximate), Expires: 10/22/2024 Start: 07-23-2024 End: 10-22-2024 Lipid 1996 panel - Serum or Plasma LIPID PANEL BASIC Lab Routine Essential hypertension, benign Hyperlipidemia, mixed Impaired fasting glucose Expected: 07/23/2024 (Approximate), Expires: 10/22/2024 [facility] Comment on above: Expected: 07/23/2024 (Approximate), Expires: 10/22/2024 Start: 07-09-2024 End: 07-09-2024 Patient encounter procedure 07/09/2024 9:20 AM EST Office Visit [facility] [address] [place], [place] [id number] George Vaughan MD [address] [address] [place], [place] [id number] 6 month follow up [facility] Comment on above: 6 month follow up Start: 07-01-2024 End: 09-30-2024 CBC panel - Blood by Automated count COMPLETE BLOOD COUNT Lab Routine Essential hypertension, benign Expected: 07/01/2024 (Approximate), Expires: 09/30/2024 [facility] Comment on above: Expected: 07/01/2024 (Approximate), Expires: 09/30/2024 Start: 07-01-2024 End: 09-30-2024 Comprehensive metabolic 2000 panel - Serum or Plasma COMPREHENSIVE METABOLIC PANEL Lab Routine Hyperlipidemia, mixed Impaired fasting glucose Expected: 07/01/2024 (Approximate), Expires: 09/30/2024 [facility] Work Phone: Comment on above: Expected: 07/01/2024 (Approximate), Expires: 09/30/2024 Start: 07-01-2024 End: 09-30-2024 Hemoglobin A1c in Blood HEMOGLOBIN A1C Lab Routine Impaired fasting glucose Expected: 07/01/2024 (Approximate), Expires: 09/30/2024 [facility] Comment on above: Expected: 07/01/2024 (Approximate), Expires: 09/30/2024 Start: 07-01-2024 End: 09-30-2024 Lipid 1996 panel - Serum or Plasma LIPID PANEL BASIC Lab Routine Hyperlipidemia, mixed Impaired fasting glucose Expected: 07/01/2024 (Approximate), Expires: 09/30/2024 [facility] Comment on above: Expected: 07/01/2024 (Approximate), Expires: 09/30/2024 Start: 05-29-2024 Hemoglobin A1c measurement HbA1C [facility] Start: 05-22-2024 Advance Directive Discussion Advance Directive Discussion [facility] Start: 04-30-2024 End: 07-30-2024 Cobalamin (Vitamin B12) [Mass/volume] in Serum or Plasma VITAMIN B12 Lab Routine Malaise and fatigue Expected: 04/30/2024, Expires: 07/30/2024 [facility] Work Phone: Comment on above: Expected: 04/30/2024 , Expires: 07/30/2024 Start: 04-30-2024 End: 07-30-2024 Folate [Mass/volume] in Serum or Plasma FOLATE, SERUM Lab Routine Malaise and fatigue Expected: 04/30/2024, Expires: 07/30/2024 [facility] Comment on above: Expected: 04/30/2024 , Expires: 07/30/2024 Start: 04-30-2024 End: 04-30-2024 Patient encounter procedure 04/30/2024 12:45 PM EST Office Visit Neurology [address] [place], [place] [phone] Jessy Weldon PA-C [address] [place], [place] [phone] 3mth follow up/ mary 01/26/24 Neurology Comment on above: 3mth follow up/ mary 01/26/24 Start: 04-25-2024 Hepatitis B surface antibody level LDL Cholesterol [facility] Start: 03-15-2024 DIABETES SCREEN DIABETES SCREEN [facility] Start: 01-26-2024 End: 01-26-2024 Patient encounter procedure 01/26/2024 10:40 AM EDT Office Visit [facility] [address] [facility] [place] [address] Landon Strange Jr., MD [address] [facility] [address] [place] [address] [facility] Comment on above: [facility] Start: 01-21-2024 Covid-19 Vaccine () Covid-19 Vaccine () [facility] Start: 01-21-2024 Covid-19 Vaccine () Covid-19 Vaccine () [facility] Start: 01-21-2024 Influenza vaccination Influenza Vacc ine (#1) [facility] Start: 12-30-2023 End: 12-30-2023 Patient encounter procedure 12/30/2023 10:20 AM EDT [facility] Visit [facility] [address] [place] [address] George Vaughan MD [address] [place] [address] 6 month follow up [facility] Comment on above: 6 month follow up Start: 12-01-2023 End: 12-01-2023 Patient encounter procedure 12/01/2023 11:20 AM EDT Office Visit [facility] [address] [place] [address] George Vaughan MD [address] [place] [address] 6 month follow up [facility] Comment on above: 6 month follow up Start: 10-26-2023 Hepatitis B surface antibody level LDL CHOLESTEROL [facility] Start: 10-25-2023 Hemoglobin A1c measurement HbA1C [facility] Start: 10-18-2023 End: 10-18-2023 Patient encounter procedure 10/18/2023 11:15 AM EDT Office Visit Neurology [address] [place] [address] Jessy Weldon PA-C [address] [place] [address] Follow up 5 months, [place] Neurology Comment on above: Follow up 5 months, [place] Start: 08-10-2023 Covid-19 Vaccine () Covid-19 Vaccine () [facility] Start: 05-22-2023 Advance Directive Discussion Advance Directive Discussion [facility] Start: 05-04-2023 ANNUAL PCP TEAM HOSPICE EXECUTIVE DIRECTOR HECTOR DISEASE VISIT ANNUAL PCP TEAM CHRONIC DISEASE VISIT [facility] Start: 04-26-2023 Hemoglobin A1c/Hemoglobin.total in Blood HBA1C [facility] Start: 04-25-2023 Hepatitis B surface antibody level LDL CHOLESTEROL [facility] Start: 04-25-2023 SERUM CREATININE SERUM CREATININE Cl [facility] Start: 04-25-2023 Blood chemistry [facility] Start: 04-24-2023 Blood chemistry [facility] Start: 04-23-2023 Blood chemistry [facility] Start: 04-22-2023 Blood chemistry [facility] Start: 04-21-2023 Blood chemistry [facility] Start: 04-20-2023 Blood chemistry [facility] Start: 04-19-2023 Blood chemistry [facility] Start: 04-18-2023 Patient discharge [facility] Start: 04-18-2023 [facility] Start: 04-18-2023 Care planning and pr oblem solving actions [facility] Start: 04-16-2023 Admission procedure [facility] Start: 04-16-2023 Ambulation without limitation [facility] Start: 04-16-2023 Assessment of risk o f venous thromboembolism [facility] Start: 04-16-2023 Insertion of cathete r into peripheral vein [facility] Start: 04-16-2023 Measuring intake and output [facility] Start: 04-16-2023 Providing care accor ding to standard [facility] Start: 04-16-2023 End: 04-16-2023 Referral to service [facility] Start: 04-16-2023 [facility] Start: 04-16-2023 End: 04-16-2023 Referral to occupational therapist [facility] [facility] Start: 04-16-2023 Following clinical pathway protocol [facility] Start: 04-16-2023 Care planning and pr oblem solving actions [facility] Start: 04-16-2023 Hospital admission, emergency, from emergency room, medical nature [facility] Start: 04-16-2023 Admission procedure [facility] Start: 04-16-2023 [facility] Start: 03-13-2023 [facility] Start: 03-13-2023 [facility] Start: 02-24-2023 [facility] Start: 02-17-2023 BP CONTROLLED (<130/80) BP CONTROLLE D (<130/80) [facility] Start: 01-25-2023 SERUM CREATININE SERUM CREATININE [facility] Start: 01-20-2023 ANNUAL PCP TEAM HOSPICE EXECUTIVE DIRECTOR HECTOR DISEASE VISIT ANNUAL PCP TEAM CHRONIC DISEASE VISIT [facility] Start: 01-20-2023 Covid-19 Vaccine () Covid-19 Vaccine () [facility] Start: 01-20-2023 Influenza vaccination [facility] Start: 12-20-2022 BP CONTROLLED (<130/80) BP CONTROLLE D (<130/80) [facility] Start: 11-11-2022 BP CONTROLLED (<130/80) BP CONTROLLE D (<130/80) [facility] Start: 11-02-2022 ANNUAL PCP TEAM HOSPICE EXECUTIVE DIRECTOR HECTOR DISEASE VISIT ANNUAL PCP TEAM CHRONIC DISEASE VISIT [facility] Start: 11-02-2022 End: 01-02-2023 CBC W Auto Differential panel - Blood CBC + DIFF Lab Routine Essential hypertension, benign Coronary artery disease involving [place] coronary artery of [place] heart without angina pectoris Expected: 11/02/2022 (Approximate), Expires: 01/02/2023 [facility] Work Phone: Comment on above: Expected: 11/02/2022 (Approximate), Expires: 01/02/2023 Start: 11-02-2022 End: 01-02-2023 Comprehensive metabolic 2000 panel - Serum or Plasma COMP METABOLIC PANEL Lab Routine Essential hypertension, benign Hyperlipidemia, mixed Impaired fasting glucose Expected: 11/02/2022 (Approximate), Expires: 01/02/2023 [facility] Work Phone: Comment on above: Expected: 11/02/2022 (Approximate), Expires: 01/02/2023 Start: 11-02-2022 End: 01-02-2023 Hemoglobin A1c in Blood HGB A1C Lab Routine Impaired fasting glucose Expected: 11/02/2022 (Approximate), Expires: 01/02/2023 [facility] Work Phone: Comment on above: Expected: 11/02/2022 (Approximate), Expires: 01/02/2023 Start: 11-02-2022 End: 01-02-2023 Lipid 1996 panel - Serum or Plasma LIPID PANEL BASIC Lab Routine Essential hypertension, benign Hyperlipidemia, mixed Impaired fasting glucose Expected: 11/02/2022 (Approximate), Expires: 01/02/2023 [facility] Work Phone: Comment on above: Expected: 11/02/2022 (Approximate), Expires: 01/02/2023 Start: 10-21-2022 Hepatitis B surface antibody level LDL CHOLESTEROL [facility] Start: 10-21-2022 SERUM CREATININE SERUM CREATININE [facility] Start: 09-13-2022 ANNUAL PCP TEAM HOSPICE EXECUTIVE DIRECTOR HECTOR DISEASE VISIT ANNUAL PCP TEAM CHRONIC DISEASE VISIT [facility] Start: 09-13-2022 BP CONTROLLED (<130/80) BP CONTROLLE D (<130/80) [facility] Start: 06-20-2022 COVID-19 VACCINE (5 - Moderna series) COVID-19 VACCINE (5 - Moderna series) [facility] Start: 05-22-2022 ADVANCE DIRECTIVE DISCUSSION ADVANCE DIRECTIVE DISCUSSION [facility] Start: 05-04-2022 End: 07-04-2022 CBC W Auto Differential panel - Blood CBC + DIFF Lab Routine Anemia, unspecified type Expected: 05/04/2022 (Approximate), Expires: 07/04/2022 [facility] Work Phone: Comment on above: Expected: 05/04/2022 (Approximate), Expires: 07/04/2022 Start: 05-04-2022 End: 07-04-2022 Comprehensive metabolic 2000 panel - Serum or Plasma COMP METABOLIC PANEL Lab Routine Essential hypertension, benign Hyperlipidemia, mixed Elevated glucose Expected: 05/04/2022 (Approximate), Expires: 07/04/2022 [facility] Work Phone: Comment on above: Expected: 05/04/2022 (Approximate), Expires: 07/04/2022 Start: 05-04-2022 End: 07-04-2022 Hemoglobin A1c in Blood HGB A1C Lab Routine Elevated glucose Expected: 05/04/2022 (Approximate), Expires: 07/04/2022 [facility] Work Phone: Comment on above: Expected: 05/04/2022 (Approximate), Expires: 07/04/2022 Start: 05-04-2022 End: 07-04-2022 Lipid 1996 panel - Serum or Plasma LIPID PANEL BASIC Lab Routine Essential hypertension, benign Hyperlipidemia, mixed Expected: 05/04/2022 (Approximate), Expires: 07/04/2022 [facility] Work Phone: Comment on above: Expected: 05/04/2022 (Approximate), Expires: 07/04/2022 Start: 04-23-2022 HEMOGLOBIN/HEMATOCRIT HEMOGLOBIN/HEM ATOCRIT [facility] Start: 03-15-2022 SERUM CREATININE SERUM CREATININE [facility] Start: 01-27-2022 [facility] Work Phone: Start: 01-20-2022 End: 03-22-2022 CREATININE BLD CREATININE BLD Lab STAT Lightheadedness Expected: 01/20/2022, Expires: 03/22/2022 [facility] Work Phone: Comment on above: Expected: 01/20/2022 , Expires: 03/22/2022 Start: 01-20-2022 Influenza vaccination INFLUENZA (#1) [facility] Start: 07-16-2021 COVID-19 VACCINE (4 - Booster for Moderna series) COVID-19 VACCINE (4 - Booster for Moderna series) [facility] Start: 05-22-2021 ADVANCE DIRECTIVE DISCUSSION ADVANCE DIRECTIVE DISCUSSION [facility] Start: 05-10-2021 COVID-19 VACCINE (4 - Booster for Moderna series) COVID-19 VACCINE (4 - Booster for Moderna series) [facility] Start: 10-20-2020 Hepatitis B surface antibody level LDL CHOLESTEROL [facility] Start: 04-16-2020 3 comp foot exam completed DIABETIC FOOT EXAM [facility] Start: 04-16-2020 Diabetic foot examination Diabetic F oot Exam [facility] Start: 02-20-2019 Hepatitis B screening URINE AL BUMIN:CREATININE RATIO [facility] Start: 08-02-2017 End: 08-02-2017 Appointment Appointment [facility] Work Phone: Start: 01-23-2017 End: 05-17-2017 *Hepatic Function Panel *Hepatic Function Panel [facility] Work Phone: Start: 01-23-2017 End: 05-17-2017 Lipid panel [AGGREGATE] *Lipid Profile CC PCP [facility] Work Phone: Start: 01-06-2017 SHINGRIX VACCINE (2 of 3) SHOOK GRIX VACCINE (2 of 3) [facility] Start: 08-02-2016 End: 07-21-2016 *Hepatic Function Panel *Hepatic Function Panel [facility] Work Phone: Start: 08-02-2016 End: 07-21-2016 Lipid panel [AGGREGATE] *Lipid Profile CC PCP [facility] Work Phone: Start: 07-27-2016 End: 07-27-2016 Follow Up Appt 1 year Follow Up Appt 1 year [facility] Work Phone: Start: 07-27-2016 End: 07-27-2016 PFM PFM [facility] Work Phone: Start: 2016 RSV Vaccine (1 - 1-d ose 75+ series) RSV Vaccine (1 - 1-dose 75+ series) [facility] Start: 02-08-2016 End: 02-08-2016 Follow Up Appt 9 months Follow Up Appt 9 months [facility] Work Phone: Start: 02-08-2016 End: 02-08-2016 PFM PFM [facility] Work Phone: Start: 01-22-2016 End: 02-02-2016 *Hepatic Function Panel *Hepatic Function Panel [facility] Work Phone: Start: 01-22-2016 End: 02-02-2016 Lipid panel [AGGREGATE] *Lipid Profile CC PCP [facility] Work Phone: Start: 07-29-2015 End: 07-29-2015 Follow Up Appt 6 months Follow Up Appt 6 months [facility] Work Phone: Start: 07-29-2015 End: 07-29-2015 PFM PFM [facility] Work Phone: Start: 07-16-2015 End: 07-22-2015 *Hepatic Function Panel *Hepatic Function Panel [facility] Work Phone: Start: 07-16-2015 End: 07-22-2015 Lipid panel [AGGREGATE] *Lipid Profile CC PCP [facility] Work Phone: Start: 02-09-2015 End: 02-11-2015 *BMP *BMP [facility] Work Phone: Start: 01-30-2015 End: 01-30-2015 Coagulation factor induced.INR assay in platelet poor plasma *PT/INR [facility] Work Phone: Start: 01-21-2015 End: 01-29-2015 *BMP *BMP [facility] Work Phone: Start: 01-21-2015 End: 01-21-2015 Arterial exam Arterial exam [facility] Work Phone: Start: 01-21-2015 End: 01-29-2015 CBC W Auto Differential panel - Blood *CBC without Diff [facility] Work Phone: Start: 01-21-2015 End: 01-21-2015 Echocardiography Echocardiogram (complete) [facility] Work Phone: Start: 01-21-2015 End: 01-21-2015 Follow Up Appt 6 months Follow Up Appt 6 months [facility] Work Phone: Start: 01-21-2015 End: 01-21-2015 Nuclear stress test -exercise Nuclear stress test -exercise [facility] Work Phone: Start: 01-21-2015 End: 01-21-2015 PFM PFM [facility] Work Phone: Start: 01-21-2015 End: 01-22-2015 Tilt table evaluation Tilt Table Test [facility] Work Phone: Start: 06-12-2014 End: 06-12-2014 Follow Up Appt 6 months Follow Up Appt 6 months [facility] Work Phone: Start: 06-12-2014 End: 06-12-2014 PFM PFM [facility] Work Phone: Start: 12-11-2013 End: 05-28-2014 Follow Up Appt 6 months Follow Up Appt 6 months [facility] Work Phone: Start: 12-11-2013 End: 05-28-2014 MMM MMM [facility] Work Phone: Start: 06-18-2013 End: 06-18-2013 Follow Up Appt 6 months Follow Up Appt 6 months [facility] Work Phone: Start: 06-18-2013 End: 06-18-2013 Follow Up Appt Other Follow Up Appt Other [facility] Work Phone: Start: 06-18-2013 End: 06-18-2013 PFM PFM [facility] Work Phone: Start: 12-20-2012 End: 03-12-2013 *Hepatic Function Panel *Hepatic Function Panel [facility] Work Phone: Start: 12-20-2012 End: 12-20-2012 Follow Up Appt 6 months Follow Up Appt 6 months [facility] Work Phone: Start: 12-20-2012 End: 03-12-2013 Lipid panel [AGGREGATE] *Lipid Profile CC PCP [facility] Work Phone: Start: 12-20-2012 End: 12-20-2012 MMM MMM [facility] Work Phone: Start: 06-11-2012 End: 06-12-2012 *Hepatic Function Panel *Hepatic Function Panel [facility] Work Phone: Start: 06-11-2012 End: 06-11-2012 Follow Up Appt 6 months Follow Up Appt 6 months [facility] Work Phone: Start: 06-11-2012 End: 06-12-2012 Lipid panel [AGGREGATE] *Lipid Profile [facility] Work Phone: Start: 12-12-2011 End: 12-12-2011 Electrocardiogram, complete EKG (In office) [facility] Work Phone: Start: 12-12-2011 End: 12-12-2011 Follow Up Appt 6 months Follow Up Appt 6 months [facility] Work Phone: Start: 12-12-2011 End: 12-12-2011 Follow Up Appt Other Follow Up Appt Other [facility] Work Phone: Start: 11-24-2011 End: 06-07-2012 *Hepatic Function Panel *Hepatic Function Panel [facility] Work Phone: Start: 11-24-2011 End: 06-07-2012 Lipid panel [AGGREGATE] *Lipid Profile [facility] Work Phone: Start: 09-28-2011 End: 09-28-2011 Follow Up Appt 6 months Follow Up Appt 6 months [facility] Work Phone: Start: 03-07-2008 PNEUMOCOCCAL: 65+ (1 - PCV) PNEUMOCOCCAL: 65+ (1 - PCV) [facility] Start: 12-21-2007 Glaucoma screening Dilated Retinal E xam [facility] Start: 12-21-2007 Hepatitis C antibody , confirmatory test DILATED RETINAL EXAM [facility] Start: 06-22-2006 Medicare Annual Well ness Visit Medicare Annual Wellness Visit [facility] Start: 2001 Hepatitis B Vaccine (1 of 3 - Risk 3-dose series) Hepatitis B Vaccine (1 of 3 - Risk 3-dose series) [facility] Start: 2001 RSV Vaccine (1 - 1-d ose 60+ series) RSV Vaccine (1 - 1-dose 60+ series) [facility] Start: 1959 BP CONTROLLED (<130/80) BP CONTROLLE D (<130/80) [facility] Anion gap in Serum o r Plasma [facility] Anion gap measurement [facility] Bacteria identified in Urine by Culture URINE CULTURE Microbiology Routine Urinary frequency 02/25/2023 10:51 AM EDT [facility] Work Phone: BUN/Creatinine ratio [facility] BUN/Creatinine ratio [facility] Calcium [Mass/volume ] in Serum or Plasma [facility] Calcium [Mass/volume ] in Serum or Plasma [facility] Carbon dioxide, tota l [Moles/volume] in Central venous blood [facility] Carbon dioxide, tota l [Moles/volume] in Serum or Plasma [facility] Chloride [Moles/volu me] in Serum or Plasma [facility] Creatinine [Mass/vol ume] in Serum or Plasma [facility] Creatinine [Moles/vo lume] in Serum or Plasma [facility] End: 01-08-2023 CTA HEAD W IVCON CTA HEAD W IVCON Radiology Routine Cerebral infarction, unspecified mechanism (HCC) 1 Occurrences starting 12/09/2021 until 01/08/2023 [facility] Work Phone: Comment on above: 1 Occurrences starti ng 12/09/2021 until 01/08/2023 End: 01-08-2023 CTA NECK W IVCON CTA NECK W IVCON Radiology Routine Cerebral infarction, unspecified mechanism (HCC) 1 Occurrences starting 12/09/2021 until 01/08/2023 [facility] Work Phone: Comment on above: 1 Occurrences starti ng 12/09/2021 until 01/08/2023 Erythrocyte mean corpuscular volume determination [facility] Glucose [Mass/volume ] in Serum or Plasma [facility] Glucose [Mass/volume ] in Serum or Plasma [facility] Hematocrit [Volume Fraction] of Blood [facility] Hematocrit [Volume Fraction] of Blood [facility] Hematocrit [Volume Fraction] of Blood [facility] Hemoglobin [Mass/vol ume] in Blood [facility] Hemoglobin [Mass/vol ume] in Blood [facility] Hemoglobin [Mass/vol ume] in Blood [facility] Leukocytes [#/volume ] in Blood [facility] Leukocytes [#/volume ] in Blood [facility] Leukocytes [#/volume ] in Blood [facility] Mean corpuscular hemoglobin concentration determination [facility] Mean corpuscular hemoglobin concentration determination [facility] Mean corpuscular hemoglobin concentration determination [facility] Mean corpuscular hemoglobin determination [facility] Mean corpuscular hemoglobin determination [facility] Mean corpuscular hemoglobin determination [facility] Measurement of renal function [facility] Measurement of renal function [facility] End: 03-06-2023 Mri brain brain stem w/o contrast material MRI BRAIN WO [facility] Radiology Routine Transient cerebral ischemia, unspecified type 1 Occurrences starting 02/04/2022 until 03/06/2023 [facility] Work Phone: Comment on above: 1 Occurrences starti ng 02/04/2022 until 03/06/2023 Neutrophil count [facility] Neutrophil count [facility] Neutrophil count [facility] Neutrophil percent differential count [facility] Neutrophil percent differential count [facility] Neutrophil percent differential count [facility] OUTSIDE VENDOR CARDI AC OUTPATIENT EXTENDED RHYTHM RECORDING (WITHOUT TELEMETRY) OUTSIDE VENDOR CARDIAC OUTPATIENT EXTENDED RHYTHM RECORDING (WITHOUT TELEMETRY) Holter Routine Cerebrovascular accident (CVA), unspecified mechanism (HCC) Lightheadedness Ordered: 12/09/2021 [facility] Work Phone: Comment on above: Ordered: 12/09/2021 Patient Education [facility] Work Phone: Patient referral [facility] Work Phone: Platelets [#/volume] in Blood [facility] Platelets [#/volume] in Blood [facility] Platelets [#/volume] in Blood [facility] POST VOID RESIDUAL POST VOID RES IDUAL Procedures Routine Weak urinary stream Screening for genitourinary condition Ordered: 12/18/2024 [facility] Comment on above: Ordered: 12/18/2024 Potassium [Moles/vol ume] in Serum or Plasma [facility] Potassium measurement [facility] Red blood cell count [facility] Red blood cell count [facility] Red blood cell count [facility] Red cell distributio n width determination [facility] Red cell distributio n width determination [facility] Red cell distributio n width determination [facility] Serum chloride measurement [facility] Sodium [Moles/volume ] in Serum or Plasma [facility] Sodium measurement [facility] Troponin T.cardiac [Mass/volume] in Serum or Plasma by High sensitivity method [facility] Urea nitrogen [Mass/volume] in Serum or Plasma [facility] Urea nitrogen [Mass/volume] in Serum or Plasma [facility] End: 08-20-2024 US Lower extremity vein US LEG VEIN DVT [facility] Vascular Lab Routine Closed nondisplaced fracture of fifth metatarsal bone of left foot, initial encounter Pain of left calf 1 Occurrences starting 08/21/2023 until 08/20/2024 [facility] Work Phone: Comment on above: 1 Occurrences starti ng 08/21/2023 until 08/20/2024 [facility] End: 09-19-2024 XR Foot - left AP and Lateral and oblique XR FOOT GENERAL 3V AP/LAT/OBL LEFT Radiology Routine Closed nondisplaced fracture of fifth metatarsal bone of left foot, initial encounter 1 Occurrences starting 08/21/2023 until 09/19/2024 [facility] Work Phone: Comment on above: 1 Occurrences starti ng 08/21/2023 until 09/19/2024 XR Foot - left AP an d Lateral and oblique XR FOOT GENERAL 3V AP/LAT/OBL LEFT Radiology Routine Closed nondisplaced fracture of fifth metatarsal bone of left foot, initial encounter 08/21/2023 3:00 PM EDT [facility] Work Phone: End: 09-23-2024 XR Foot - left AP and Lateral and oblique XR FOOT GENERAL 3V AP/LAT/OBL LEFT Radiology Routine Closed nondisplaced fracture of fifth metatarsal bone of left foot, initial encounter 1 Occurrences starting 08/25/2023 until 09/23/2024 [facility] Work Phone: Comment on above: 1 Occurrences starti ng 08/25/2023 until 09/23/2024 XR Foot - left AP an d Lateral and oblique XR FOOT GENERAL 3V AP/LAT/OBL LEFT Radiology Routine Closed nondisplaced fracture of fifth metatarsal bone of left foot, initial encounter 09/19/2023 11:40 AM EDT [facility] Work Phone[facility] Immunizations Immunization Date Immunization Notes Care Provider Fa cili 02-09-2024 influenza virus vacc ine, unspecified formulation Sheldon Slater MD Work Phone: [facility] 04-11-2023 influenza virus vacc ine, unspecified formulation George Vaughan MD Work Phone: [facility] 02-24-2023 tetanus toxoid, redu evelin diphtheria toxoid, and acellular pertussis vaccine, adsorbed Dr. George Vaughan Work Phone: [facility] 03-01-2022 influenza (aIIV4) vaccine, age 65+ yr, quadrivalent, PF (FLUAD QUADRIVALENT) George Vaughan MD Work Phone: [facility] 03-01-2022 influenza, injectabl e, quadrivalent, preservative free Dr. George Vaughan Work Phone: [facility] 03-01-2022 influenza, seasonal, injectable Dr. George Vaughan Work Phone: [facility] 03-01-2022 influenza virus vacc ine, unspecified formulation Jessy Weldon PA-C Work Phone: [facility] 02-18-2022 COVID-19 booster vaccine, age 12+ yr, bivalent (MODERNA) George Vaughan MD Work Phone: [facility] 04-19-2021 influenza (aIIV4) vaccine, age 65+ yr, quadrivalent, PF (FLUAD QUADRIVALENT) Halima Harvey LAB SUPPORT TECH.FORM [employer] Work Phone: [facility] 04-19-2021 influenza, high dose seasonal, preservative-free Delia Waterman LAB SUPPORT TECH.FORM [employer] Work Phone: [facility] 03-15-2021 Covid (Moderna) Dr. George herron Work Phone: [facility] 03-02-2021 influenza, injectabl e, quadrivalent, preservative free Dr. George Vaughan Work Phone: [facility] 03-02-2021 influenza, seasonal, injectable Halima Leesen LAB SUPPORT TECH.FORM [employer] Work Phone: [facility] 07-30-2020 COVID-19 vaccine, fu ll dose (MODERNA) Delia Tannhof LAB SUPPORT TECH.FORM [employer] Work Phone: [facility] 07-02-2020 COVID-19 vaccine, fu ll dose (MODERNA) Delia Tannhof LAB SUPPORT TECH.FORM [employer] Work Phone: [facility] 03-04-2020 influenza, high-dose , quadrivalent vaccine (FLUZONE HIGH DOSE QUADRIVALENT) Delia Tannhof LAB SUPPORT TECH.FORM [employer] Work Phone: [facility] 03-29-2019 influenza, high dose seasonal, preservative-free Delia Tannhof LAB SUPPORT TECH.[employer] Work Phone: [facility] 02-27-2018 influenza, high dose seasonal, preservative-free Delia Tannhof LAB SUPPORT TECH.[employer] Work Phone: [facility] 05-17-2017 influenza, seasonal, injectable Delia Tannhof LAB SUPPORT TECH.[employer] Work Phone: [facility] 11-11-2016 zoster vaccine, live Delia Tannhof LAB SUPPORT TECH.[employer] Work Phone: [facility] 04-12-2016 influenza, high dose seasonal, preservative-free Delia Tannhof LAB SUPPORT TECH.[employer] Work Phone: [facility] 02-26-2015 influenza, high dose seasonal, preservative-free Delia Tannhof LAB SUPPORT TECH.FORM [employer] Work Phone: [facility] 11-26-2014 pneumococcal conjuga te vaccine, 13 valent Delia Tannhof LAB SUPPORT TECH.FORM [employer] Work Phone: [facility] 04-14-2014 influenza, high dose seasonal, preservative-free Delia Waterman APRN.[employer] Work Phone: [facility] 02-21-2013 influenza virus vacc ine, unspecified formulation Delia Waterman APRN.[employer] Work Phone: [facility] 06-12-2012 influenza virus vacc ine, unspecified formulation Delia Waterman APRN.[employer] Work Phone: [facility] Work Phone: 06-12-2012 tetanus and diphther ia toxoids, adsorbed, preservative free, for adult use (2 Lf of tetanus toxoid and 2 Lf of diphtheria toxoid) Delia Waterman APRN.[employer] Work Phone: [facility] Work Phone: 05-19-2008 influenza virus vacc ine, unspecified formulation Delia Waterman APRN.[facility] Work Phone: [facility] Work Phone: 03-07-2007 pneumococcal polysaccharide vaccine, 23 valent Delia Waterman APRN.[employer] Work Phone: [facility] Work Phone: 08-31-2001 tetanus and diphther ia toxoids, adsorbed, preservative free, for adult use (2 Lf of tetanus toxoid and 2 Lf of diphtheria toxoid) Delia Waterman APRN.[facility] Work Phone: [facility] Payers Date Payer Category Payer Self-pay [id number] 2013 Private Health Insurance [facility] AARP SUPPLEMENT [id number] 2013-Present [phone] [address] [place] [address] Indemnity [id number] 2013 Private Health Insurance [id number] 2013 Unknown [id number] 2006 Medicare MEDICARE MEDICAR E A AND B [id number] 2006-Present [phone] [address] [address] [place] [address] Medicare [id number] 2006 Medicare [id number] 2006 Medicare [id number] Unknown [place] AUTH REQUIR ED SEE NOTE [id number] Unknown [id number] Unknown [id number] Unknown [id number] .462 Unknown [id number] .462 Unknown [id number] .462 Unknown [id number] .462 Unknown [id number] .462 Unknown [id number] [id number] .462 Unknown [id number] 2.840.1.500898.3.579.2 .462 Unknown [id number] .462 Unknown [id number] .462 Social History Date Type Detail Facility Start: 01-19-2022 End: 01-08-2025 Tobacco smoking status NHIS Ex-smoker [facility] Start: 05-22-1962 End: 05-22-1981 History of tobacco use Cigarette Smoker [facility] Work Phone: History of tobacco use Pipe Smoker [facility] Work Phone: End: 05-22-1981 History of tobacco use User of smokeless tobacco [facility] Work Phone: Start: 09-14-2021 End: 11-29-2024 Alcohol intake Current non-drinker of alcohol (finding) [facility] Start: 04-12-2016 End: 01-19-2022 Tobacco Comment Quit in 1981 [facility] Start: 1940 Sex Assigned At Not on file [facility] Start: 09-29-2020 End: 02-17-2022 Exposure to SARS-CoV-2 (event) Not sure [facility] Start: 05-22-1962 End: 05-22-1981 History of tobacco use Current smoker [facility] Start: 01-19-2022 End: 11-19-2024 Tobacco use and exposure Former smokeless tobacco user [facility] Start: 01-27-2022 End: 04-16-2023 Tobacco smoking status NMIS Unknown if ever smoked [facility] Start: 03-03-2020 None [facility] Start: 03-03-2020 Spouse/ Signif icant Other [facility] Start: 05-03-2014 Non-smoker [facility] Start: 1940 Sex Assigned At Male [facility] Start: 12-19-2022 End: 08-21-2023 History of Social function [facility] Start: 12-19-2022 End: 08-21-2023 Tobacco use panel [facility] Start: 04-22-2012 Adult Depression Screening Assessment 1 [facility] Start: 07-28-2024 End: 03-10-2025 Sex Male (finding) [facility] History of tobacco use Passive smoker [facility] Start: 12-18-2024 End: 12-20-2024 Alcoholic beverage intake Ex-drinker (finding) [facility] Medical Equipment Procedure Code Equipment Code Equipment Origin al Text Equipment Identifier Dates Liner 36mm 0d F X3 7.9mm Acetabular Hip - [id number] Start: 08-08-2018 Shell 58mm F Hemispherical Tritanium Acetabular Solid Back Primary - [id number] Start: 08-08-2018 Stem Accolade Ii V40 127d 9 53mm Offset Purefix Titanium Plasma [place] 120mm - [id number] Start: 08-08-2018 Head V40 36mm 0m m Offset Taper Biolox Delta Femoral Hip - [id number] Start: 08-08-2018 Mesh Parietex 4. 6cm Small Collagen Surgical Patch Self Center Resorbable - [id number] Start: 12-13-2024 Goals Date Patient Goal Desired Activity /State Functional Status Date Assessment Result Facility 07-29-2024 Functional status Ambulates;Bath room Privilege [facility] Work Phone: 04-18-2023 Functional status Ambulates [facility] Work Phone: 08-11-2018 Are you deaf, or do you have serious difficulty hearing No 08/11/2018 6:11 PM EDT Lois Taylor) (Hist), RN No [facility] 08-11-2018 Are you blind, or do you have serious difficulty seeing, even when wearing glasses No 08/11/2018 6:11 PM EDT Lois TaylorRn) (Hist), RN No [facility] 08-11-2018 Do you have serious difficulty walking or climbing stairs Yes 08/11/2018 6:11 PM Lois MiguelRn) (Hist), RN Yes [facility] 08-11-2018 Do you have difficul ty dressing or bathing Yes 08/11/2018 6:11 PM Lois MiguelRn) (Hist), RN Yes [facility] 08-11-2018 Because of a physica l, mental, or emotional condition, do you have difficulty doing errands alone such as visiting a physician's office or shopping Yes 08/11/2018 6:11 PM EDT Lois TaylorRn) (Hist), RN Yes [facility] Mental Status Date Assessment Result Facility 01-10-2025 Cognitive function Level Of Cons ciousness Sedated [facility] Work Phone: 12-06-2024 Cognitive function Level Of Cons ciousness Awake;Alert;Appropriate;Fol lows Commands [facility] Work Phone: 11-13-2024 Cognitive function Level Of Cons ciousness Awake;Alert;Appropriate;Fol lows Commands [facility] Work Phone: 07-29-2024 Cognitive function Voice/Name [facility] Work Phone: 07-28-2024 Cognitive function Voice/Name [facility] Work Phone: 04-18-2023 Cognitive function Voice/Name [facility] Work Phone: 04-16-2023 Cognitive function Voice/Name [facility] Work Phone: 08-11-2018 Because of a physica l, mental, or emotional condition, do you have serious difficulty concentrating, remembering, or making decisions No 08/11/2018 6:11 PM EDT Lois TaylorRn) (Hist), RN No [facility] Clinical Notes 06-10-2014 to 01-10-2025 Note Date & Type Note Facility 01-10-2025 History and physi hal note Note Date/Time January 10, 2025 2:07pm [facility] Medical Records Department [address] [place] [address] History & Physical Exam 01/10/25 1405 MR#: [id number] Acct: [id number] Name: RONY MONZON Rep #:[id number] : 1940 84 From: Josue Friend DO PCP: Dr. George Vaughan MD Status:[facility] Location: AC AC15-1 HPI - General General Date of Admission: 01/10/25 Date of Service: 01/10/25 Chief Complaint: Dysphagia and a cough HPI Narrative Details: RONY MONZON, is a 84 M who presents regarding intermittent difficulty swallowing. He presents with his for exam. He states that his last EGD was years ago and doesn't remember if an esophageal dilation was performed, but suspects not. He reports white rice as a frequent culprit of trouble swallowing.He does report globus sensation a couple of times a week, cough, and frequent throat clearing. He denies difficulty chewing and pushing his food back with histongue to initiate the swallow. He denies feeling heartburn, reflux. He denies nausea, emesis, abdominal pain, bloat, excess gas, diarrhea, hematochezia, and melena. He reports occasional constipation. States that he has a BM of some sorts daily, but I still feel like there's more there. He reports that if this feeling persists, he will take a dose of Milk of Magnesia for complete results. He states that he used to take Miralax as needed, but got tired of mixing the powder. Milk of Magnesia is just easier to take. And it works. He states that he only uses the Milk of Magnesia 1 to 2 times a month. He has tried Colace in the past with poor results. He states that he eats plenty of fiber, but could dobetter on his water intake. He is taking Plavix due to evidence of a stroke seenon MRI. He has 1 cardiac stent. [facility] Medical History High cholesterol Stroke/cerebrovascular accident Syncope Gastric reflux Shortness of breath on exertion Sleep apnea COVID-19 (~01/18/22) Sepsis due to urinary tract infection History of transesophageal echocardiography (VIOLETTE) Wears hearing aid Wears glasses Depression Anxiety Walker as ambulation aid Arthritis Indwelling urethral catheter present Low iron Easy bruising History of hiatal hernia Former smoker History of tilt table evaluation Cardiology follow-up encounter History of echocardiogram History of stress test Enterococcus UTI H/O appendicitis Presence of stent in coronary artery (~09/08/10) Pure hypercholesterolemia Essential hypertension PTSD (post-traumatic stress disorder) Pulmonary hypertension Restless legs syndrome (RLS) REHAN (obstructive sleep apnea) Syncope and collapse Dizziness and giddiness Fatigue Shortness of breath Dyspnea Precordial chest pain 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 custodial use of drug Atherosclerotic heart disease of [place] coronary artery without angina pectoris 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 Neck pain on left side Benign prostatic hypertrophy Coronary artery disease Home Medications ?Medication ?Instructions ?Recorded ?Last Taken ?Type fluoxetine 40 mg capsule (Prozac) 40 mg PO DAILY reflu x 07/04/18 01/10/25 History acetaminophen 500 mg tablet 500 mg PO Q6H PRN Pain 07/13/21 History (Tylenol Extra Strength) amlodipine 5 mg tablet 5 mg PO BID blood pressure 1 01/10/25 History multivitamin 1 tab PO DAILY vitamin 02/0801/10/25 History clopidogrel 75 mg tablet 75 mg PO DAILY anti platelet 05/05/22 01/04/25 History rosuvastatin 10 mg tablet 10 mg PO QHS cholesterol #90 tabs 11/24/22 Unknown Rx oxycodone 5 mg tablet 5 mg PO Q6H PRN pain 3 Unknown History lisinopril 10 mg tablet 10 mg PO BID blood pressure #180 04/11/24 01/10/25 Rx TABLETS nitroglycerin 0.4 mg sublingual 0.4 mg sublingual Q5-1 5M PRN chest 11/29/24 Unknown Rx tablet pain #25 tabs propranolol 20 mg tablet 20 mg PO BID blood pressure 11/29/24 01/10/25 History pantoprazole 20 mg tablet,delayed 20 mg PO QDAY #90 ta bs 12/02/24 Unknown Rx release Allergy/AdvReac Type Severity Reaction Status Date / Time hydrocodone (From Vicodin) Allergy Other Verified 01/10/25 13:59 orphenadrine Allergy Unknown Verified 01/10/25 13:59 pregabalin Allergy Swelling Verified 01/10/25 13:59 atorvastatin (From Lipitor) AdvReac Severe Intolerance Verified 01/10/25 13:59 ,Myalgias Family History Father CVA (cerebral vascular accident) Mother Cardiomegaly Brother CAD (coronary artery disease) Hx CABG and valve replacement Diabetes Brother History of heart valve replacement Brother Rheumatic fever Sister Hypertension Aortic aneurysm H/O aortic valve replacement Brother Cancer bladder Brother Thyroid disorder Surgical History History of umbilical hernia repair S/P TURP History of colonoscopy H/O heart artery stent History of right hip replacement Presence of coronary angioplasty implant and graft (~09/08/10) S/P right knee arthroscopy History of appendectomy hx cervical stenosis History of vasectomy History of hydrocelectomy Social History household members: spouse housing: house Smoking Status: Former smoker pack-years: 20 Tobacco: How many years used: 22 second hand exposure: No alcohol intake: never substance use type: does not use caffeine: Yes Type: carbonated beverages Number of servings: 1 and tea what type of physical activity do you participate in: none seatbelt use: always do you feel safe at home: Yes ROS Constitutional Constitutional: Denies fatigue, fever(s), poor appetite, weight gain or weight loss Gastrointestinal Gastrointestinal: Denies belching, bloating, change in bowel habits, change in stool character, chewing difficulty, coffee ground emesis, constipation, cramping, diarrhea, dyspepsia, dysphagia, early satiety, excessive flatus, fecalincontinence, heartburn, hematemesis, hematochezia, hemorrhoids, loose stools, melena, nausea, odynophagia, rectal bleeding, tenesmus, vomiting or weight changes Physical Exam Const alert, oriented x3, no apparent distress and healthy appearing General Appearance: cooperative GI normal to inspection, nondistended, normoactive bowel sounds, soft to palpation,non-tender and non-distended Percussion: normal to percussion Rectal Exam: deferred Assessment & Plan Assessment/Plan (1) Dysphagia: QUALIFIERS: Dysphagia type: esophageal phase Qualified Code(s): R13.19 - Other dysphagia (2) Chronic cough: PLAN: Assessment and Plan Assessment and Plan (1) Chronic cough: Status: Chronic (2) Dysphagia: Status: Chronic Qualifiers: Dysphagia type: esophageal phase Qualified Code(s): R13.19 - Other dysphagia Orders: Orders Swallowing Function w/Video Today R05.3 - Chronic cough, R13.10 - Dysphagia, unspecified Medications: New pantoprazole 20 mg PO QDAY 90 tabs 3RF Plan RONY MONZON, is a 84 M who presents to the office today for establishment with [facility] regarding intermittent difficulty swallowing. Discussed care plan with him and his . He has a scheduled umbilical hernia repair with at [facility] on December 13. Assured them that none of his testing or new medication would impede his surgery. * pantoprazole 20mg PO daily 30minutes before eating * swallowing function w/video * schedule esophageal manometry * schedule EGD * office FU 2wks after EGD 01/10/25 1407 <Electronically signed by Josue Seals DO> Cosigner Signature (if applicable): CC: Dr. George Vaughan MD; Josue Seals DO~ Signed [facility] Work Phone: 1(316) 494-998408-22-2025 Consult note [facility] Medical Records Department [address] [place] [address] Anesthesia Postop Eval II 01/10/25 1527 MR#: [id number] Acct: [id number] Name: RONY MONZON Rep #:[id number] : 1940 84 From: Scott Collier RNA PCP: Dr. George Vaughan MD Status:RE [facility] Race: C Location: [address] Anesthesia Postop Eval I Sum Postop Eval Completion status Anesthesia document: Postop Eval 1 completed: Yes Anesthesia Postop Eval I Summary Anesthesia Postop Eval I Summary: Anesthesia Postop Eval I: Assessment Summary Airway patent Yes 01/10/25 15:21 CELL OPERATORTIRSO Spontaneous unlabored Yes 01/10/25 15:21 CELL OPERATORTIRSO respirations Mental status Awake,Calm 01/10/25 15:21 CELL OPERATOROT nausea No 01/10/25 15:21 CELL OPERATOROT Vomiting No 01/10/25 15:21 CELL OPERATORTIRSO Anesthesia Postop Eval I: Fluid Summary Crystalloid volume administer 100 01/10/25 15:21 CELL OPERATORTIRSO (ml) Colloids volume administered ( ml) Blood Product volume administered (ml) Total IV fluid infused 100 01/10/25 15:21 CELL OPERATORTIRSO Anesthesia Postop Eval I: Summary Notes Anesthesia Complication No 01/10/25 15:21 CELL OPERATOR.OT Anesthesia Complication Comment: Post-operative progress note Anesthesia: Postop Eval II Evaluation Mental status: Awake and Calm Pain Level: 0 nausea: No Vomiting: No Complications Anesthesia Complication: No 01/10/25 1528 CELL OPERATOR> Date _ Scott Cornejo CELL OPERATOR Cosigner Signature: Date CC: ~ Signed [facility]08-22-2025 Procedure note [facility] Medical Records Department [address] [place] [address] EGD Report MR#: [id number] Acct: [id number] Name: RONY MONZON Rep #:[id number] : 1940 84 From: Josue Seals DO PCP: Dr. George Vaughan MD Status:[facility] Patient Name: Rony Monzon Procedure Date: 01/10/2025 3:00 PM Date of : 1940 Age: 84 Procedure: Upper GI endoscopy Indications: Dysphagia, Heartburn Providers: Josue Seals DO Referring MD: George Vaughan Medicines: Monitored Anesthesia Care Patient Profile: This is an 84 year old male. Refer to note in patient chart for documentation of history and physical. Patient has symptoms of dysphagia with both liquids and solids. Complications: No immediate complications. Procedure: Pre-Anesthesia Assessment: - Prior to the procedure, a History and Physical was performed, and patient medications and allergies were reviewed. The patient is competent. The risks and benefits of the procedure and the sedation options and risks were discussed with the patient. All questions were answered and informed consent was obtained. Patient identification and proposed procedure were verified by the physician in the pre-procedure area. Mental Status Examination: alert and oriented. Airway Examination: normal oropharyngeal airway and neck mobility. Respiratory Examination: clear to auscultation. CV Examination: normal. Prophylactic Antibiotics: The patient does not require prophylactic antibiotics. Prior Anticoagulants: The patient has taken no anticoagulant or antiplatelet agents except for NSAID medication. ASA Grade Assessment: II - A patient with mild systemic disease. After reviewing the risks and benefits, the patient was deemed in satisfactory condition to undergo the procedure. The anesthesia plan was to use monitored anesthesia care (MAC). Immediately prior to administration of medications, the patient was re-assessed for adequacy to receive sedatives. The heart rate, respiratory rate, oxygen saturations, blood pressure, adequacy of pulmonary ventilation, and response to care were monitored throughout the procedure. The physical status of the patient was re-assessed after the procedure. After obtaining informed consent, the endoscope was passed under direct vision. Throughout the procedure, the patient's blood pressure, pulse, and oxygen saturations were monitored continuously. The Endoscope was introduced through the mouth, and advanced to the second part of duodenum. The upper GI endoscopy was accomplished without difficulty. The patient tolerated the procedure well. Scope In: 3:12:36 PM Scope Out: 3:18:41 PM Total Procedure Duration Time 0 hours 6 minutes 5 seconds Findings: Mucosal changes including ringed esophagus, feline appearance, longitudinal furrows, small-caliber esophagus, circumferential folds, congestion (edema) and stenosis were found in the entire esophagus. Biopsies were obtained from the proximal and distal esophagus with cold forceps for histology of suspected eosinophilic esophagitis. Verification of patient identification for the specimen was done. Estimated blood loss was minimal. A guidewire was placed and the scope was withdrawn. Dilation was performed with a Savary dilator with no resistance at 51 Fr. The dilation site was examined and showed moderate improvement in luminal narrowing. Estimated blood loss was minimal. Abnormal motility was noted in the esophagus. The cricopharyngeus was abnormal. There are extra peristaltic waves in the esophageal body. The distal esophagus/lower esophageal sphincter is spastic, but gives up passage to the endoscope. No gross lesions were noted in the stomach. No gross lesions were noted in the entire examined duodenum. Impression: - Esophageal mucosal changes suggestive of eosinophilic esophagitis. Dilated. - Abnormal esophageal motility. - No gross lesions in the stomach. - No gross lesions in the entire examined duodenum. - Biopsies were taken with a cold forceps for evaluation of eosinophilic esophagitis. Recommendation: - Discharge patient to home. - Resume previous diet. - Continue present medications. - Await pathology results. - Use Protonix (pantoprazole) 40 mg PO BID for 3 months. Procedure Code(s): --- Professional --- 61814, Esophagogastroduodenoscopy, flexible, transoral; with insertion of guide wire followed by passage of dilator(s) through esophagus over guide wire 23972, 59,51, Esophagogastroduodenoscopy, flexible, transoral; with biopsy, single or multiple CPT copyright 2021 [employer]. All rights reserved. The codes documented in this report are preliminary and upon invoice coder review may be revised to meet current compliance requirements. Josue Seals DO 01/10/2025 3:23:19 PM This report has been signed electronically. Number of Addenda: 0 Note Initiated On: 01/10/2025 3:00 PM 01/10/25 1523 Date _ Josue Seals DO Cosigner Signature: Date (if indicated) CC: Dr. George Vaughan MD; Josue Seals DO ~ Date Dictated: 01/10/25 1500 Date Transcribed: Research Soil Scientist: RF Signed [facility]08-22-2025 Procedure note [facility] Medical Records Department [address] [place] [address] Provation Physician Letter MR#: [id number] Acct: [id number] Name: RONY MONZON Rep #:[id number] : 1940 84 From: Josue Seals DO PCP: Dr. George Vaughan MD Status:RE [facility] 01/10/2025 George Vaughan [address] [place] [address] Re : Upper GI endoscopy procedure for Rony Monzon Dear Dr. Vaughan This procedure was performed on Friday, January 10, 2025. My impressions and recommendations are as follows: Impressions : - Esophageal mucosal changes suggestive of eosinophilic esophagitis. Dilated. - Abnormal esophageal motility. - No gross lesions in the stomach. - No gross lesions in the entire examined duodenum. - Biopsies were taken with a cold forceps for evaluation of eosinophilic esophagitis. Recommendations : - Discharge patient to home. - Resume previous diet. - Continue present medications. - Await pathology results. - Use Protonix (pantoprazole) 40 mg PO BID for 3 months. My findings are described in the full procedure note, which is enclosed. If I can be of further assistance, please feel free to contact me at . Sincerely, Josue Seals DO 01/10/2025 3:23:19 PM This report has been signed electronically. 01/10/25 1523 Date _ Josue Seals DO Cosigner Signature: Date (if indicated) CC: Dr. George Vaughan MD; Josue Seals DO ~ Date Dictated: 01/10/25 1500 Date Transcribed: Research Soil Scientist: JACEY Signed [facility]08-22-2025 Consult note [facility] Medical Records Department [address] [place] [address] Anesthesia Postop Eval I 01/10/25 1520 MR#: [id number] Acct: [id number] Name: RONY MONZON Rep #:[id number] : 1940 84 From: Scott Collier RNA PCP: Dr. George Vaughan MD Status:RE [facility] Race: C Location: [place] [address] Anesthesia: Postop Eval I Current Vital Signs Temperature: 98 F Pulse Rate: 65 Blood Pressure: 169/74 Respiratory Rate: 16 Pulse Ox: 99 Oxygen Delivery Method: Room Air Assessment Airway patent: Yes Spontaneous unlabored respirations: Yes Mental status: Awake and Calm nausea: No Vomiting: No Anesthesia Complication: No Fluid Hydration Crystalloid volume administer (ml): 100 Total IV fluid infused: 100 Progress Note Anesthesia document: Postop Eval 1 completed: Yes 01/10/25 1521 CELL OPERATOR> Date _ [place]wood Riveravenu CELL OPERATOR Cosigner Signature: Date CC: ~ Signed [facility]08-22-2025 Consult note [facility] Medical Records Department [address] [place] [address] Pre-Anesthesia Evaluation 01/10/25 1429 MR#: [id number] Acct: [id number] Name: RONY MONZON Rep #:[id number] : 1940 84 From: Scott HENRIQUEZ PCP: Dr. George Vaughan MD Status: G [facility] Race: C Location: [place] [address] ASA Classification* ASA Classification ASA Classification: 3 Assessment & Plan Anesthesia* Anesthesia Assessment Anesthesia Assessment: Discussed sedation and/or anesthesia options, risks, benefits, and alternatives with patient/parents/legal guardian/POA. Questions invited. The patient/parents/legal guardian/POA seems to understand and agrees to proceedwith anesthesia plan. Reviewed the physical assessment, medical history, allergy history and patient home medications list prior to surgery/procedure/anesthetic and documented any changes. Performed airway and anesthesia risk assessments. Anesthesia Type Anesthesia Type: MAC History Source History Obtained from:: Patient and Chart Anesthesia Focused Assessment* Temperature: 97.8 F Pulse Rate: 58 Blood Pressure: 169/70 Respiratory Rate: 18 Pulse Ox: 100 Airway Assessment Mouth opens: >3 cm Mallampati Score: II Teeth Condition: Intact Neck Range of motion (ROM): Full ROM Labs Anesthesia Preop lab: CBC WBC 9.2 K/mm3 (4.4-11.0) 11/13/24 13:42 11/13/24 RBC 3.74 M/mm3 (4.6-6.2) L 11/13/24 13:42 11/13/24 Hgb 11.7 g/dL (13.0-16.5) L 11/13/24 13:42 5 Hct 35.2 % (40-54) L 11/13/24 13:42 11/13/24 Plt Count 381 K/mm3 (150-450) 11/13/24 13:42 11/13/24 CHEMISTRY Potassium 4.4 mmol/L (3.3-5.1) 11/13/24 13:42 11/13/24 Sodium 135 mmol/L (133-145) 11/13/24 13:42 11/13/24 Magnesium 1.9 mg/dL (1.6-2.6) 04/17/23 05:09 04/17/23 Phosphorus 3.8 mg/dL (2.5-4.9) 04/17/23 05:09 04/17/23 BUN 13 mg/dL (4-19) 11/13/24 13:42 11/13/24 Creatinine 1.00 mg/dL (0.70-1.20) 11/13/24 13:42 11/13/24 Glucose 94 mg/dL (70-99) 11/13/24 13:42 11/13/24 POC Glucose 101 mg/dL (70-110) 11/24/13 21:48 11/24/13 TSH 1.04 uIU/mL (0.358-3.74) 06/18/20 09:59 COAG PT 14.1 SECONDS (11.7-14.9) 04/17/23 05:09 Pre-Assessment Diagnosis/Proposed Procedure Planned Operative Procedure(s): EGD Anesthesia History Anesthesia History - informatics developer: Anesthesia History - informatics developer Hx Hospitalization Yes: 07/2024 ER VISIT, 01/08/25 13:03 OVERNIGHT OBS, STRESS TEST Any Problems With Anesthesia No 01/08/25 13:03 Cholinesterase deficiency No 01/08/25 13:03 You/Your Family Experience No 01/08/25 13:03 fever (hyperthermia) with Relationship Recent Exposure to Contagious No 01/10/25 14:08 Disease Does patient have nerve No 01/08/25 13:03 stimulator Patient instructed to have device shut off --Does patient have Pacemaker No 01/10/25 14:08 or ICD? When Was Last Pacemaker Check QUESTION #4 FULL TEXT: You/Your Family Experience fever (hyperthermia) with Anesthesia Last Oral Intake Last Oral intake: Last Oral Intake NPO since 11:00 01/10/25 14:08 Meds taken in AM with sips of Yes 01/10/25 14:08 water? Meds patient instructed to see medlist 01/10/25 14:08 take am of surgery PONV PONV - informatics developer: PONV - informatics developer Female No 01/08/25 13:03 HX of Motion Sickness No 01/08/25 13:03 HX of N/V After Surgery No 01/08/25 13:03 Non-Smoker Yes 01/08/25 13:03 Duration of Surgery greater No 01/08/25 13:03 than 60 minutes Number of Risk Factors 1 01/08/25 13:03 PONV Score Low Risk 01/08/25 13:03 Height & Weight Height & Weight: Anesthesia: Height & Weight Height 6 ft 1 in 01/10/25 14:08 Weight: 97 kg 01/10/25 14:08 Body Mass Index (BMI) 28.2 01/10/25 14:08 Respiratory Assessment Respiratory Assessment - informatics developer: Respiratory Tract Infection Hx - informatics developer Hx Respiratory Tract Infection No 01/08/25 13:03 STOP Sleep Apnea STOP Sleep Apnea - informatics developer: STOP Sleep Apnea - informatics developer Hx Hypertension Yes: PER PT, CONTROLLED ON 01/08/25 13:03 MEDS Hx Sleep Apnea Yes 01/08/25 13:03 CPAP No 01/08/25 13:03 BIPAP No 01/08/25 13:03 Do you snore loudly (louder than talking or can be heard Do you often feel tired/ fatigued/ sleepy during daytime? Has anyone observed you stop breathing during sleep? STOP Results Positive 01/08/25 13:03 QUESTION #5 FULL TEXT : Do you snore loudly (louder than talking or can be heard through closeddoors)? 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 Specify any problems Hx of Preganancy in last 3 N/A 01/08/25 13:03 Months Nurse Filling Out Transfusion MGRIFFITH 01/08/25 13:03 & Questions: Date: 01/08/25 01/08/25 13:03 Time: 13:05 01/08/25 13:03 Patient unable to answer at this time (ie. confused, unrespo /Reproduction History /Reproductive History - informatics developer: /Reproductive Hx- informatics developer Hx Now No 01/08/25 13:03 Gestational Age (in weeks): EDC: Hx Hx Para Hx Section SAB No 01/08/25 13:03 Active Medications Active Medications: Current Medications Generic Name Dose Route Start Last Admin Trade Name Freq PRN Reason Stop Dose Admin Lactated Ringer's 1,000 mls @ 15 mls/hr 01/10/25 14:00 01/10/25 14:13 IV 15 mls/hr .Q48H ABRAHAM Administration PFSH Medical History High cholesterol Stroke/cerebrovascular accident Syncope Gastric reflux Shortness of breath on exertion Sleep apnea COVID-19 (~01/18/22) Sepsis due to urinary tract infection History of transesophageal echocardiography (VIOLETTE) Wears hearing aid Wears glasses Depression Anxiety Walker as ambulation aid Arthritis Indwelling urethral catheter present Low iron Easy bruising History of hiatal hernia Former smoker History of tilt table evaluation Cardiology follow-up encounter History of echocardiogram History of stress test Enterococcus UTI H/O appendicitis Presence of stent in coronary artery (~09/08/10) Pure hypercholesterolemia Essential hypertension PTSD (post-traumatic stress disorder) Pulmonary hypertension Restless legs syndrome (RLS) REHAN (obstructive sleep apnea) Syncope and collapse Dizziness and giddiness Fatigue Shortness of breath Dyspnea Precordial chest pain 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 custodial use of drug Atherosclerotic heart disease of [place] coronary artery without angina pectoris 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 Neck pain on left side Benign prostatic hypertrophy Coronary artery disease Home Medications ?Medication ?Instructions ?Recorded ?Last Taken ?Type fluoxetine 40 mg capsule (Prozac) 40 mg PO DAILY reflu x 07/04/18 01/10/25 History acetaminophen 500 mg tablet 500 mg PO Q6H PRN Pain 07/13/21 History (Tylenol Extra Strength) amlodipine 5 mg tablet 5 mg PO BID blood pressure 1 01/10/25 History multivitamin 1 tab PO DAILY vitamin 02/0801/10/25 History clopidogrel 75 mg tablet 75 mg PO DAILY anti platelet 05/05/22 01/04/25 History rosuvastatin 10 mg tablet 10 mg PO QHS cholesterol #90 tabs 11/24/22 Unknown Rx oxycodone 5 mg tablet 5 mg PO Q6H PRN pain 3 Unknown History lisinopril 10 mg tablet 10 mg PO BID blood pressure #180 04/11/24 01/10/25 Rx TABLETS nitroglycerin 0.4 mg sublingual 0.4 mg sublingual Q5-1 5M PRN chest 11/29/24 Unknown Rx tablet pain #25 tabs propranolol 20 mg tablet 20 mg PO BID blood pressure 11/29/24 01/10/25 History pantoprazole 20 mg tablet,delayed 20 mg PO QDAY #90 ta bs 12/02/24 Unknown Rx release Allergy/AdvReac Type Severity Reaction Status Date / Time hydrocodone (From Vicodin) Allergy Other Verified 01/10/25 13:59 orphenadrine Allergy Unknown Verified 01/10/25 13:59 pregabalin Allergy Swelling Verified 01/10/25 13:59 atorvastatin (From Lipitor) AdvReac Severe Intolerance Verified 01/10/25 13:59 ,Myalgias Family History Father CVA (cerebral vascular accident) Mother Cardiomegaly Brother CAD (coronary artery disease) Hx CABG and valve replacement Diabetes Brother History of heart valve replacement Brother Rheumatic fever Sister Hypertension Aortic aneurysm H/O aortic valve replacement Brother Cancer bladder Brother Thyroid disorder Surgical History History of umbilical hernia repair S/P TURP History of colonoscopy H/O heart artery stent History of right hip replacement Presence of coronary angioplasty implant and graft (~09/08/10) S/P right knee arthroscopy History of appendectomy hx cervical stenosis History of vasectomy History of hydrocelectomy Social History household members: spouse housing: house Smoking Status: Former smoker pack-years: 20 Tobacco: How many years used: 22 second hand exposure: No alcohol intake: never substance use type: does not use caffeine: Yes Type: carbonated beverages Number of servings: 1 and tea what type of physical activity do you participate in: none seatbelt use: always do you feel safe at home: Yes Prior Cardiac Testing/Procedures Prior Cardiac Testing/Procedures: VIOLETTE Review of Systems (Anesthesia) ROS Narrative System reviewed and no additional complaints, except as documented. Physical Exam Const alert and oriented x3 Orientation / Consciousness: awake HEENT dentition normal Neck full ROM Resp normal respiratory effort Extremity full ROM Neuro oriented x3 01/10/25 1434 CELL OPERATOR> Date _ Scott Cornejo CRNA Cosigner Signature: Date CC: ~ Signed [facility]08-22-2025 History and physical note [facility] Medical Records Department [address] [place] [address] History & Physical Exam 01/10/25 1405 MR#: [id number] Acct: [id number] Name: RONY MONZON Rep #:[id number] : 1940 84 From: Josue Friend DO PCP: Dr. George Vaughan MD Status:[facility] Location: [facility] AC15-1 HPI - General General Date of Admission: 01/10/25 Date of Service: 01/10/25 Chief Complaint: Dysphagia and a cough HPI Narrative Details: RONY MONZON, is a 84 M who presents regarding intermittent difficulty swallowing. He presents withhis for exam. He states that his last EGD was years ago and doesn't remember if an esophageal dilation was performed, but suspects not. He reports white rice as a frequent culprit of trouble swal lowing.He does report globus sensation a couple of times a week, cough, and frequent throat clearing. He denies difficulty chewing and pushing his food back with histongue to initiate the swallow. He denies feeling heartburn, reflux. He denies nausea, emesis, abdominal pain, bloat, excess gas, diarrhea, hematochezia, and melena. He reports occasional constipation. States that he has a BM of some sorts daily, but I still feel like there's more there. He reports that if this feeling persists,he will take a dose of Milk of Magnesia for complete results. He states that he used to take Miralax as needed, but got tired of mixing the powder. Milk of Magnesia is just easier to take. And it wor ks. He states that he only uses the Milk of Magnesia 1 to 2 times a month. He has tried Colace in the past with poor results. He states that he eats plenty of fiber, but could dobetter on his water intake. He is taking Plavix due to evidence of a stroke seenon MRI. He has 1 cardiac stent. [facility] Medical History High cholesterol Stroke/cerebrovascular accident Syncope Gastric reflux Shortness of breath on exertion Sleep apnea COVID-19 (~01/18/22) Sepsis due to urinary tract infection History of transesophageal echocardiography (VIOLETTE) Wears hearing aid Wears glasses Depression Anxiety Walker as ambulation aid Arthritis Indwelling urethral catheter present Low iron Easy bruising History of hiatal hernia Former smoker History of tilt table evaluation Cardiology follow-up encounter History of echocardiogram History of stress test Enterococcus UTI H/O appendicitis Presence of stent in coronary artery (~09/08/10) Pure hypercholesterolemia Essential hypertension PTSD (post-traumatic stress disorder) Pulmonary hypertension Restless legs syndrome (RLS) REHAN (obstructive sleep apnea) Syncope and collapse Dizziness and giddiness Fatigue Shortness of breath Dyspnea Precordial chest pain 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 Atherosclerotic heart disease of [place] coronary artery without angina pectoris 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 Neck pain on left side Benign prostatic hypertrophy Coronary artery disease Home Medications ?Medication ?Instructions ?Recorded ?Last Taken ?Type fluoxetine 40 mg capsule (Prozac) 40 mg PO DAILY reflu x 07/04/18 01/10/25 History acetaminophen 500 mg tablet 500 mg PO Q6H PRN Pain 07/13/21 History (Tylenol Extra Strength) amlodipine 5 mg tablet 5 mg PO BID blood pressure 1 01/10/25 History multivitamin 1 tab PO DAILY vitamin 02/0801/10/25 History clopidogrel 75 mg tablet 75 mg PO DAILY anti platelet 05/05/22 01/04/25 History rosuvastatin 10 mg tablet 10 mg PO QHS cholesterol #90 tabs 11/24/22 Unknown Rx oxycodone 5 mg tablet 5 mg PO Q6H PRN pain 3 Unknown History lisinopril 10 mg tablet 10 mg PO BID blood pressure #180 04/11/24 01/10/25 Rx TABLETS nitroglycerin 0.4 mg sublingual 0.4 mg sublingual Q5-1 5M PRN chest 11/29/24 Unknown Rx tablet pain #25 tabs propranolol 20 mg tablet 20 mg PO BID blood pressure 11/29/24 01/10/25 History pantoprazole 20 mg tablet,delayed 20 mg PO QDAY #90 ta bs 12/02/24 Unknown Rx release Allergy/AdvReac Type Severity Reaction Status Date / Time hydrocodone (From Vicodin) Allergy Other Verified 01/10/25 13:59 orphenadrine Allergy Unknown Verified 01/10/25 13:59 pregabalin Allergy Swelling Verified 01/10/25 13:59 atorvastatin (From Lipitor) AdvReac Severe Intolerance Verified 01/10/25 13:59 ,Myalgias Family History Father CVA (cerebral vascular accident) Mother Cardiomegaly Brother CAD (coronary artery disease) Hx CABG and valve replacement Diabetes Brother History of heart valve replacement Brother Rheumatic fever Sister Hypertension Aortic aneurysm H/O aortic valve replacement Brother Cancer bladder Brother Thyroid disorder Surgical History History of umbilical hernia repair S/P TURP History of colonoscopy H/O heart artery stent History of right hip replacement Presence of coronary angioplasty implant and graft (~09/08/10) S/P right knee arthroscopy History of appendectomy hx cervical stenosis History of vasectomy History of hydrocelectomy Social History household members: spouse housing: house Smoking Status: Former smoker pack-years: 20 Tobacco: How many years used: 22 second hand exposure: No alcohol intake: never substance use type: does not use caffeine: Yes Type: carbonated beverages Number of servings: 1 and tea what type of physical activity do you participate in: none seatbelt use: always do you feel safe at home: Yes ROS Constitutional Constitutional: Denies fatigue, fever(s), poor appetite, weight gain or weight loss Gastrointestinal Gastrointestinal: Denies belching, bloating, change in bowel habits, change in stool character, chewing difficulty, coffee ground emesis, constipation, cramping, diarrhea, dyspepsia, dysphagia, earlysatiety, excessive flatus, fecalincontinence, heartburn, hematemesis, hematochezia, hemorrhoids, loose stools, melena, nausea, odynophagia, rectal bleeding, tenesmus, vomiting or weight changes Physical Exam Const alert, oriented x3, no apparent distress and healthy appearing General Appearance: cooperative GI normal to inspection, nondistended, normoactive bowel sounds, soft to palpation,non-tender and non-distended Percussion: normal to percussion Rectal Exam: deferred Assessment & Plan Assessment/Plan (1) Dysphagia: QUALIFIERS: Dysphagia type: esophageal phase Qualified Code(s): R13.19 - Other dysphagia (2) Chronic cough: PLAN: Assessment and Plan Assessment and Plan (1) Chronic cough: Status: Chronic (2) Dysphagia: Status: Chronic Qualifiers: Dysphagia type: esophageal phase Qualified Code(s): R13.19 - Other dysphagia Orders: Orders Swallowing Function w/Video Today R05.3 - Chronic cough, R13.10 - Dysphagia, unspecified Medications: New pantoprazole 20 mg PO QDAY 90 tabs 3RF Plan RONY MONZON, is a 84 M who presents to the office today for establishment with I regarding intermittent difficulty swallowing. Discussed care plan with him and his . He has a scheduled umbilical hernia repair with at [facility] on December 13. Assured them that none of his testing or new medication would impede his surgery. * pantoprazole 20mg PO daily 30minutes before eating * swallowing function w/video * schedule esophageal manometry * schedule EGD * office FU 2wks after EGD 01/10/25 1407 Cosigner Signature (if applicable): CC: Dr. George Vaughan MD; Josue Seals, ~ Signed [facility]08-22-2025 [facility] Medical Records Department [address] [place] [address] History Physical Exam 01/10/25 1405 MR#: [id number] Acct: [id number] Name: RONY MONZON Rep #: [id number] : 1940 84 From: Josue Seals DO PCP: Dr. George Vaughan MD Status:[facility] Location: [place] [address] HPI - General General Date of Admission: 01/10/25 Date of Service: 01/10/25 Chief Complaint: Dysphagia and a cough HPI Narrative Details: RONY MONZON, is a 84 M who presents regarding intermittent difficulty swallowing. He presents with his for exam. He states that his last EGD was years ago and doesn't remember if an esophageal dilation was performed, but suspects not. He reports white rice as a frequent culprit of trouble swallowing. He does report globus sensation a couple of times a week, cough, and frequent throat clearing. He denies difficulty chewing and pushing his food back with his tongue to initiate the swallow. He denies feeling heartburn, reflux. He denies nausea, emesis, abdominal pain, bloat, excess gas, diarrhea, hematochezia, and melena. He reports occasional constipation. States that he has a BM of some sorts daily, but I still feel like there's more there. He reports that if this feeling persists, he will take a dose of Milk of Magnesia for complete results. He states that he used to take Miralax as needed, but got tired of mixing the powder. Milk of Magnesia is just easier to take. And it works. He states that he only uses the Milk of Magnesia 1 to 2 times a month. He has tried Colace in the past with poor results. He states that he eats plenty of fiber, but could do better on his water intake. He is taking Plavix due to evidence of a stroke seen on MRI. He has 1 cardiac stent. [facility] Medical History High cholesterol Stroke/cerebrovascular accident Syncope Gastric reflux Shortness of breath on exertion Sleep apnea COVID-19 ( 01/18/22) Sepsis due to urinary tract infection History of transesophageal echocardiography (VIOLETTE) Wears hearing aid Wears glasses Depression Anxiety Walker as ambulation aid Arthritis Indwelling urethral catheter present Low iron Easy bruising History of hiatal hernia Former smoker History of tilt table evaluation Cardiology follow-up encounter History of echocardiogram History of stress test Enterococcus UTI H/O appendicitis Presence of stent in coronary artery ( 09/08/10) Pure hypercholesterolemia Essential hypertension PTSD (post-traumatic stress disorder) Pulmonary hypertension Restless legs syndrome (RLS) REHAN (obstructive sleep apnea) Syncope and collapse Dizziness and giddiness Fatigue Shortness of breath Dyspnea Precordial chest pain 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 Atherosclerotic heart disease of [place] coronary artery without angina pectoris 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 Neck pain on left side Benign prostatic hypertrophy Coronary artery disease Home Medications ???Medication ???Instructions ???Recorded ???Last Taken ???Type fluoxetine 40 mg capsule (Prozac) 40 mg PO DAILY reflux 07/04/18 History acetaminophen 500 mg tablet 500 mg PO Q6H PRN Pain 06/17/20 History (Tylenol Extra Strength) amlodipine 5 mg tablet 5 mg PO BID blood pressure 2 1 01/10/25 History multivitamin 1 tab PO DAILY vitamin 02/08/22 History clopidogrel 75 mg tablet 75 mg PO DAILY anti platelet 05/0501/04/25 History rosuvastatin 10 mg tablet 10 mg PO QHS cholesterol #90 tabs 11/24/22 Unknown Rx oxycodone 5 mg tablet 5 mg PO Q6H PRN pain 04/16/23 Unkn own History lisinopril 10 mg tablet 10 mg PO BID blood pressure #180 1 06/11/23 01/10/25 Rx TABLETS nitroglycerin 0.4 mg sublingual 0.4 mg sublingual Q5-15M PRN chest 11/29/24 Unknown Rx tablet pain #25 tabs propranolol 20 mg tablet 20 mg PO BID blood pressure 01/10/25 History pantoprazole 20 mg tablet,delayed 20 mg PO QDAY #90 tabs 12/02/24 U nknown Rx release Allergy/AdvReac Type Severity Reaction Status Date / Time hydrocodone (From Vicodin) Allergy Other Verified 01/10/25 13:59 orphenadrine Allergy Unknown Verified 01/10/25 13:59 pregabalin Allergy Swelling Verified 01/10/25 13:59 atorvastatin (From Lipitor) AdvReac Severe Intolerance Verified 01/10/25 13:59 ,Myalgias Family History Father CVA (cerebral vascular accident) Mother Cardiomegaly Brother CAD (coronary artery disease) Hx CABG and valve replacement Diabetes Brother History of heart valve replacement Brother Rheumatic fever Sister Hypertension Aortic aneurysm H/O aortic valve replacement Brother Cancer bladder Brother Thyroid disorder Surgical History (more content not included)...[facility] 12-27-2024 NoteHNO ID: [id number] Author: GERTRUDE ALLEN APRN.[employer] Service: ? Author Type: Nurse Practitioner Type: Progress Notes Filed: 12/27/2024 11:06 Note Text: SUBJECTIVE: Rony Monzon presents for follow up of his umbilical hernia repair WITH mesh. On 12/13/24 he underwent a hernia repair with Dr. Slater, tolerated the procedure well and was discharged home. Patient complaints: None -notes urinary AND constipation have resolved He denies pain, drainage, redness around wound, difficulty voiding, and constipation. OBJECTIVE: Temp 36.4 ?C (97.6 ?F) (Temporal Artery) General Appearance: Well developed, No acute distress Abdomen: Abdomen soft, non-distended. Incision: no drainage, no erythema, no swelling, mild ecchymosis, and no tenderness. Bandaged removed. Skin glue still intact IMPRESSION: Post op course: Normal PLAN: Post-op patient instructions were reviewed with the patient. I have explained to Mr. Monzon that he may return to normal activity with the following restrictions: No heavy lifting, pushing, or pulling greater than 20 lbs for 8 weeks post-operatively. I have encouraged him to contact me at any time with any questions or concerns that may arise. Follow up: EKATERINA Allen APRN.[facility]08-04-2025 Procedure note [facility] Speech Pathology [address] [place] [address] Modified Barium Swallow Study MR#: [id number] Acct: [id number] Name: RONY MONZON Rep #:[id number] : 1940 84 From: Rosita Mojica, [facility] DR[employer] Modified Barium Swallow Patient Information Study Date: 12/23/24 Study Time: 09:30 Direct Billable Minutes: 93 Total Minutes procedure & reportin Diagnosis: Dysphagia R13.10 Referring Physician: Kristan Huber Reason for Referral: Assess swallow function, assess risk for aspiration, and determine recommendations for any necessary dysphagia interventions. Medical History: Pt established care w/ [facility] on 12/02/2024 for intermittent swallowing difficulty characterized by sensation of retention of foods at the level of his chest, especially white rice, as well as occasionalcoughing w/ liquids, and throat clearing w/ po intake. He estimates that he has swallowing trouble ~every other day. His swallowing difficulty onset ~2 years ago, but it has recently become worse. Per GI documentation, he had EGD years ago, but pt wasn?t sure if he had required dilation. He denied odynophagia, regurgitation. GI recommended pantoprazole before eating, MBSS, esophageal manometry, and EGD w/ follow-up. 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 Medical History COVID-19 (~01/18/22) Sepsis due to urinary tract infection History of transesophageal echocardiography (VIOLETTE) Wears hearing aid Wears glasses Depression Anxiety Walker as ambulation aid Arthritis Indwelling urethral catheter present Low iron Easy bruising History of hiatal hernia Former smoker Chest pain History of tilt table evaluation Cardiology follow-up encounter History of echocardiogram History of stress test Enterococcus UTI H/O appendicitis Presence of stent in coronary artery (~09/08/10) Pure hypercholesterolemia Essential hypertension PTSD (post-traumatic stress disorder) Pulmonary hypertension Restless legs syndrome (RLS) REHAN (obstructive sleep apnea) Syncope and collapse Dizziness and giddiness Fatigue Shortness of breath Dyspnea Precordial chest pain 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 PER TRIAL): PENETRATION / ASPIRATION SCALE (CLARKE): 1 = does not enter airway 2 = enters airway/above vocal folds/ejected 3 = enters airway/above vocal folds/not ejected 4 = enters airway/contacts vocal folds/ejected 5 = enters airway/contacts vocal folds/not ejected 6 = enters airway/below vocal folds/ejected 7 = enters airway/below vocal folds/not ejected despite effort 8 = enters airway/below vocal folds/no effort VIDEOFLOROSCOPIC SCALE SCORE (CLARKE): Grade I = aspiration of material that has penetrated into the laryngeal vestibule, intact cough reflex Grade II = aspiration < 10 % of the bolus, intact cough reflex Grade III = aspiration of < 10 % of the bolus, reduced cough reflex or aspiration of > 10 % of the bolus, intact cough reflex Grade IV = aspiration of > 10 % of the bolus, reduced cough reflex Penetration-Aspiration Scale Score Thin Liquid via small single sip: cup: Result: 1= does not enter airway Thin Liquid via teaspoon: Result: 1= does not enter airway Thin Liquid via sequential sips: cup: Result: 2= enter airway/above vocal folds/ejected Comment: Esophageal screen - Complete clearance. [place] Thick Liquid via small single sip: cup: Result: 1= does not enter airway Pudding via teaspoon: Result: 1= does not enter airway Comment: Esophageal screen - Complete clearance. 1/2 Cookie: Result: 1= does not enter airway Comment: Esophageal screen - Mild retention in the middle and lower esophagus. Thin Liquid via single sip: straw: Result: 1= does not enter airway Comment: Esophageal screen - Liquid wash effectively cleared cookie retention. Minimal liquids in lower esophagus following this trial. Barium tablet w/ water: Result: 1= does not enter airway Comment: Esophageal screen - Complete clearance. Oral Phase Labial Seal: No Labial Escape Tongue Control During Bolus Hold: Posterior escape of less than half of bolus Bolus Preparation/Mastication: Timely and efficient chewing and mashing Bolus Transport/Lingual Motion: Repetitive/disorganized tongue motion Oral Residue: Residue collection on oral structures Pharyngeal Phase Initiation of Pharyngeal Swallow: Bolus head at posterior laryngeal surgace of epiglottis Soft Palate Elevation: No bolus between soft palate and pharyngeal wall Laryngeal Elevation: Comp. Superior move thyroid cart w/comp. apprx arytenoid cart-epig pet Anterior Hyoid Excursion: Partial anterior movement Epiglottic Movement: Partial inversion Laryngeal Vestibule Closure at Height of Swallow: Incomplete; narrow column of air/contrast in laryngeal vestibule Pharyngeal Stripping Wave: Present - diminished Pharyngoesophageal Segment Opening: Complete distension and complete duration; no obstruction of flow Tongue Base Retraction: Narrow column of contrast between tongue base & post. pharyngeal wall Pharyngeal Residue: Collection of residue within or on pharyngeal structures Esophageal Phase Esophageal Clearance: Esophageal retention Diagnosis/Impression Diagnosis: Mild oropharyngeal dysphaiga R13.12; Esophageal dysphagia R13.14 MBS Impressions: The oral phase is primarily marked by... -Decreased bolus control w/ premature posterior loss of <1/2 of the bolus to thepharynx prior toswallow onset. -Lingual pumping for A-P transport. -Piecemeal deglutition of pudding. The pharyngeal phase is primarily marked by... -Mildly decreased TB retraction and pharyngeal stripping wave resulting in mild pharyngeal residue w/ some thin liquid trials. -Mildly decreased anterior hyoid excursion, but overall good airway closure. Pt demonstrated only trace laryngeal penetration of sequential sips of thin liquids, which fully ejected. No aspiration. The esophageal phase is primarily marked by... -Retention of cookie in the middle and lower esophagus, which cleared w/ use of a single liquid wash. Recommendations Diet: Regular Textures (Moisten dry textures) and Thin Liquids Compensatory Strategies: Small Bites, Small Sips, Slow Rate, Alternate bites/solids and sips/liquids (Take a sip after every 1-2 bites, especially dry textures) and Sitting upright (During and 60min after meal) Recommend Repeat Modified Barium Swallow: TBD Need for Skilled Speech Therapy Services: Yes Comment: -Train the patient in use of strategies to decrease risk for aspiration. -Ongoing assessment of diet tolerance of recommended textures. -Train the patient in oral motor and oropharyngeal exercise program to improve bolus control, lingual coordination, TB retraction, pharyngeal motility, and anterior hyoid excursion (lingual resistance and coordination exercises, Lupis,Effortful, Angelia). Recommended Referrals: GI Consult (Continue to follow w/ OP GI for management ofesophageal retention of solids. If recommended by GI, pt is safe for participation in esophagram.) Education Completed: 1. Described result of evaluation., 2. Pt understands evaluation & agrees with goals and treatment plan. and 7. Pt requires further education on strategies & risks. Status Active ST Patient: Active Contact Information [facility] Speech Therapy:: Rosita Pacheco M.A. CCC-SALES DRIVER? Speech-Language Pathologist?? [facility] [address] [place] [id number]? [email or web address]?? [phone] 12/23/24 [address] Holloway-SALES DRIVER> Date/Time Rosita Pacheco M.A. CCC-SALES DRIVER Co-Signature Required for all Medicare patients Date/Time Co-Signature CC: ~ [facility]08-01-2025 Telephone encounter Note* Telephone Encounter - Delmis Cooney LPN - 12/20/2024 5:40 PM EDT OV note from today's visit forwarded to Dr Arguello as requested by Dr Strange. Delmis Cooney LPN [facility]08-01-2025 Miscellaneous Notes* Telephone Encounter - Delmis Cooney LPN - 12/20/2024 5:40 PM EDT OV note from today's visit forwarded to Dr Arguello as requested by Dr Strange. Delmis Cooney LPN documented in this encounterAdena [facility]08-[facility]-2025 NoteHNO ID: [id number] Author: LANDON STRANGE JR, MD Service: ? Author Type: Physician Type: Progress Notes Filed: 12/20/2024 17:43 Note Text: ESTABLISHED PATIENT VISIT CHIEF COMPLAINT: Follow Up HISTORY OF PRESENT ILLNESS: Rony Monzon is a 84 year old male, BMI 28.39 kg/m2 with a PMH significant for and per last visit of 08/21/24: ASSESSMENT/PLAN: 1. Malaise and fatigue - ICD9: 780.79, ICD10: R53.81, R53.83 (primary diagnosis) 2. Lightheaded - ICD9: 780.4, ICD10: R42 3. Recurrent falls - ICD9: V15.88, ICD10: R29.6 4. Orthostatic hypotension - ICD9: 458.0, ICD10: I95.1 Since last appointment, no significant change with lightheadedness and dizziness. Did reach out to Dr. Arguello's office for changes in blood pressure medications and instructed patient to decrease his amlodipine to 5 mg once daily from twice daily. Patient notes he tried this but it caused him to be too hypertensive so he had to go back to twice daily. 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 Drinking about 40 to 50 ounces of water a day, did try compression socks with no improvement. Is not very physically active but notes he just recently started physical therapy for his back and balance. No falls, syncope since last appointment. Notes he can stand about 10 minutes before he becomes extremely symptomatic and has to sit back down. As he was unable to tolerate medication change per the recommendations of Dr. Arguello, will reach out to his office again about possibly starting Florinef or other suggestions. Encouraged conservative therapy in the meantime. 5. Weakness of both lower extremities - ICD9: 729.89, ICD10: R29.898 Stable, no change, undergoing physical therapy at this time. 6. History of stroke - ICD9: V12.54, ICD10: Z86.73 No new symptoms that would warrant additional workup at this time. Currently on Plavix and statin medication. Per my last note of 01/26/24: 1. Lightheaded - ICD9: 780.4, ICD10: R42 (primary diagnosis) 2. Orthostatic hypotension - ICD9: 458.0, ICD10: I95.1 3. Recurrent falls - ICD9: V15.88, ICD10: R29.6 4. Weakness of both lower extremities - ICD9: 729.89, ICD10: R29.898 5. 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 Spinal stenosis of cervical region - ICD9: 723.0, ICD10: M48.02 7. Spinal stenosis of lumbar region, unspecified whether neurogenic 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 present - ICD9: 724.02, ICD10: M48.061 Patient with history of recurrent falls that I suspect are multifactorial including known spine disease as well as history of orthostatic hypotension. At this time, patient's primary complaint is lightheadedness and loss of balance or falls associated with position change of sitting to standing. Suspect due to orthostatic hypotension with drop in BP noted today with position change, but no change in HR remaining at ~60 BPM. Component of orthostatic hypotension could be decreased water intake and pt encouraged to try and drink more (instructions on appropriate intake provided). Also question if component of autonomic dysfunction associated with known C spine cord myelomalacia and/or neuropathy (small fiber). Before initiating therapy, and given cardiac history, would like opinion of human resource intern Dr. Arguello. Question if benefit in lowering blood pressure dosing including possible beta anderson to allow for cardiac response toposition change. If felt BP meds should not be changed, then would like opinion in regards to starting Florinef. Pt does have compression stockings but does not like using - encouraged he try again. As for known spine disease, encouraged pt to follow up with his surgeons at [facility]. 8. History of stroke - ICD9: V12.54, ICD10: Z86.73 Patient with no clinical symptoms. Noted on brain imaging. On Plavix and statin. No additional recs at this time with goal BP <140/90 and goal glucose <140. 9. Headaches - ICD9: 784.0, ICD10: R51.9 Resolved. Patient states they tried to lower BP meds but BP went up to systolic of 200. Still lightheadedness. Per everyday. Pt felt compression stockings after 2 months did not provide significant relief and thus, stopped due to the struggle to put them on. When asked about water intake, about 4 glasses per day, but indicates likely less. In addition drinks bottle of ensure every AM. Also drinks Coke. Pt not sure why not drinking more water. States PT did not make a big difference. Headaches resolved. Still on Plavix daily. REVIEW OF SYSTEMS GENERAL:No weight loss, malaise or fevers. HEENT:Negative for frequent or significant headaches, No changes in hearing or vision, no nose bleeds or other nasal problems NECK:Negative for lumps, goiter, pain and significant neck swelling RESPIRATORY: Negative for cough, wheezing or shortness of breath. CARDIOVASCULAR: Negative for chest pain, leg swelling or palpitations. GASTROINTESTINAL: Negative for abdominal discomfort, b (more content not included)...[facility]08-01-2025 History of Present illness Narrative* Landon Strange Jr., MD - 12/20/2024 10:33 AM EDT ESTABLISHED PATIENT VISIT CHIEF COMPLAINT: Follow Up HISTORY OF PRESENT ILLNESS: Rony Monzon is a 84 year old male, BMI 28.39 kg/m2 with a PMH significant for and per last visit of 08/21/24: ASSESSMENT/PLAN: 1. Malaise and fatigue - ICD9: 780.79, ICD10: R53.81, R53.83 (primary diagnosis) 2. Lightheaded - ICD9: 780.4, ICD10: R42 3. Recurrent falls - ICD9: V15.88, ICD10: R29.6 4. Orthostatic hypotension - ICD9: 458.0, ICD10: I95.1 Since last appointment, no significant change with lightheadedness and dizziness. Did reach out to Dr. Arguello's office for changes in blood pressure medications and instructed patient to decrease his amlodipine to 5 mg once daily from twice daily. Patient notes he tried this but it caused him to be too hypertensive so he had to go back to twice daily. 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 Drinking about 40 to 50 ounces of water a day, did try compression sockswith no improvement. Is not very physically active but notes he just recently started physical therapy for his back and balance. No falls, syncope since last appointment. Notes he can stand about 10 minutes before he becomes extremely symptomatic and has to sit back down. As he was unable to tolerate medication change per the recommendations of Dr. Arguello, will reach out to his office again about possibly starting Florinef or other suggestions. Encouraged conservative therapy in the meantime. 5. Weakness of both lower extremities - ICD9: 729.89, ICD10: R29.898 Stable, no change, undergoing physical therapy at this time. 6. History of stroke - ICD9: V12.54, ICD10: Z86.73 No new symptoms that would warrant additional workup at this time. Currently on Plavix and statin medication. Per my last note of 01/26/24: 1. Lightheaded - ICD9: 780.4, ICD10: R42 (primary diagnosis) 2. Orthostatic hypotension - ICD9: 458.0, ICD10: I95.1 3. Recurrent falls - ICD9: V15.88, ICD10: R29.6 4. Weakness of both lower extremities - ICD9: 729.89, ICD10: R29.898 5. 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 Spinal stenosis of cervical region - ICD9: 723.0, ICD10: M48.02 7. Spinal stenosis of lumbar region, unspecified whether neurogenic 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 present - ICD9: 724.02, ICD10: M48.061 Patient with history of recurrent falls that I suspect are multifactorial including known spine disease as well as history of orthostatic hypotension. At this time, patient's primary complaint is lightheadedness and loss of balance or falls associated with position change of sitting to standing. Suspect due to orthostatic hypotension with drop in BP noted today with position change, but no changein HR remaining at ~60 BPM. Component of orthostatic hypotension could be decreased water intake and pt encouraged to try and drink more (instructions on appropriate intake provided). Also question if component of autonomic dysfunction associated with known C spine cord myelomalacia and/or neuropathy (small fiber). Before initiating therapy, and given cardiac history, would like opinion of human resource intern Dr. Arguello. Question if benefit in lowering blood pressure dosing including possible beta anderson to allow for cardiac response to position change. If felt BP meds should not be changed, then would like opinion in regards to starting Florinef. Pt does have compression stockings but does not like using - encouraged he try again. As for known spine disease, encouraged pt to follow up with his surgeons at [facility]. 8. History of stroke - ICD9: V12.54, ICD10: Z86.73 Patient with no clinical symptoms. Noted on brain imaging. On Plavix and statin. No additional recsat this time with goal BP <140/90 and goal glucose <140. 9. Headaches - ICD9: 784.0, ICD10: R51.9 Resolved. Patient states they tried to lower BP meds but BP went up to systolic of 200. Still lightheadedness. Per everyday. Pt felt compression stockings after 2 months did not provide significant relief and thus, stopped due to the struggle to put them on. When asked about water intake, about 4 glasses per day, but indicates likely less. In addition drinks bottle of ensure every AM. Also drinks Coke. Pt not sure why not drinking more water. States PT did not make a big difference. Headachesresolved. Still on Plavix daily. REVIEW OF SYSTEMS GENERAL:No weight loss, malaise or fevers. HEENT:Negative for frequent or significant headaches, No changes in hearing or vision, no nose bleeds or other nasal problems NECK:Negative for lumps, goiter, pain and significant neck swelling RESPIRATORY: Negative for cough, wheezing or shortness of breath. CARDIOVASCULAR: Negative for chest pain, leg swelling or palpitations. GASTROINTESTINAL: Negative for abdominal discomfort, blood in stools or black stools or change in bowel habits GENITOURINARY: No history of dysuria, frequency or incontinence MUSCULOSKELETAL: Negative for joint pain or swelling, back pain or muscle pain. NEUROLOGIC:Negative for focal numbness or weakness, headaches and dizziness or syncope, vision changes, speech/languag changes - EXCEPT that as per HPI above. SKIN:Negative for lesions, rash, and itching. PSYCHIATRIC: Negative for sleep disturbance, mood disorder and recent psychosocial stressors. HEMATOLOGIC/LYMPHATIC/IMMUNOLOGIC:Negative for prolonged bleeding, bruising easily or swollen nodes. ENDOCRINE: Negative for cold or heat intolerance, polyuria, polydipsia and goiter. The remainder of the ROS was reviewed and is negative. LAB/IMAGING: Those performed since patient's last visit have been reviewed. WBC (k/uL) Date Value 08/23/2024 8.98 RBC (m/uL) Date Value 08/23/2024 4.02 (L) Hemoglobin (g/dL) Date Value 08/23/2024 12.7 (L) Hematocrit (%) Date Value 08/23/2024 38.4 (L) MCV (fL) Date Value 08/23/2024 95.5 MCH (pg) Date Value 08/23/2024 31.6 MCHC (g/dL) Date Value 08/23/2024 33.1 RDW-CV (%) Date Value 08/23/2024 13.0 Platelet Count (k/uL) Date Value 08/23/2024 334 MPV (fL) Date Value 08/23/2024 10.8 Glucose (mg/dL) Date Value 08/23/2024 114 (H) BUN (mg/dL) Date Value 08/23/2024 15 Creatinine (mg/dL) Date Value 08/23/2024 1.12 Sodium (mmol/L) Date Value 08/23/2024 138 Potassium (mmol/L) Date Value 08/23/2024 4.7 Chloride (mmol/L) Date Value 08/23/2024 103 CO2 (mmol/L) Date Value 08/23/2024 26 Protein, Total (g/dL) Date Value 08/23/2024 6.8 Albumin (g/dL) Date Value 08/23/2024 3.8 (L) Calcium, Total (mg/dL) Date Value 08/23/2024 9.7 Alkaline Phosphatase (U/L) Date Value 08/23/2024 108 Bilirubin, Total (mg/dL) Date Value 08/23/2024 0.5 AST (U/L) Date Value 08/23/2024 25 ALT (U/L) Date Value 08/23/2024 22 MEDICATIONS: amoxicillin (AMOXIL) 500 mg capsule 4 capsules 1 hours prior to dental procedure. rosuvastatin (CRESTOR) 10 mg tablet Take 1 tablet by mouth daily at bedtime. propranolol (INDERAL) 20 mg tablet Take 1 tablet by mouth two times a day. amLODIPine (NORVASC) 5 mg tablet Take 1 tablet by mouth two times a day. clopidogrel (PLAVIX) 75 mg tablet Take 1 tablet by mouth once daily. FLUoxetine (PROZAC) 40 mg capsule Take 1 capsule by mouth once daily. oxyCODONE IR (ROXICODONE) 5 mg immediate release tablet EVERY 6 HOURS NEEDED lisinopril (PRINIVIL) 10 mg tablet Take 1 tablet by mouth twice daily. Dr. Kramer nitroglycerin sublingual (NITROSTAT) 0.4 mg SL tablet Dissolve 1 tablet under the tongue every 5 minutes as needed for chest pain. acetaminophen (TYLENOL EXTRA STRENGTH) 500 mg tablet Take 1 tablet by mouth every 6 hours as neededfor pain. multivitamin tablet Take 1 tablet by mouth once daily. magnesium hydroxide (TORRES MILK OF MAGNESIA PO) Take 30 mL by mouth once daily as needed. HISTORIES PAST MEDICAL HISTORY Diagnosis Date Adjustment disorder with depressed mood Anemia Benign neoplasm of colon Constipation Coronary artery disease Diabetes (HCC) Essential hypertension, benign Gallbladder polyp needs repeat ultrasound in 06/06 H/O hiatal hernia Impaired fasting glucose Internal hemorrhoids without mention of complication Other and unspecified hyperlipidemia Personal history of colonic polyps Umbilical hernia FAMILY HISTORY Problem Relation Age of Onset Heart Brother valvular heart disease Heart Brother valvular heart disease Heart Brother valvular heart diease Hypertension Sister COPD Father Stroke Father Heart Mother SOCIAL HISTORY Social History Tobacco Use Smoking status: Former Current packs/day: 0.00 Types: Cigarettes, Pipe Start date: 1961 Quit date: 1981 Years since quittin.6 Passive exposure: Past Smokeless tobacco: Former Quit date: 05/22/1981 Tobacco comments: Quit in 1981 Vaping Use Vaping status: Never Used Substance Use Topics Alcohol use: Not Currently Drug use: Never PHYSICAL EXAMINATION Resp 16 Wt 97.6 kg (215 lb 3.2 oz) SpO2 98% BMI 28.39 kg/m Resp. rate 16, weight 97.6 kg (215 lb 3.2 oz), SpO2 98%. Orthostatics: Supine 157/75 with HR of 65 Sitting 151/77 with HR of 63 Standing 108/69 with HR of 70 GENERAL EXAM: General appearance: NAD, pleasant. HEENT: NC/AT, nasal congestion absent, no oral lesions, membranes moist. NECK: No masses, supple. Lungs: CTA bilaterally. No wheezes present. CV: RRR nl S1, S2, no murmurs. No carotid bruits. Abd: Soft, nontender, nondistended. Bowel sounds present. Extr: No cyanosis, clubbing or edema. No evidence of fasciculations. Extremity pulses palpable and normal. Skin: Cool to touch. No rash. NEUROLOGICAL EXAM: General: Awake, alert, oriented x3 (person,place,time), speech fluent, no dysarthria; comprehension, naming, repetition intact. Short and mcc memory intact. Fund of knowledge grossly normal by MOCA. CN: PERRL, fundi appear normal including no evidence of papilledema, EOMI and without nystagmus, VFF to confrontation, facial sensation and strength are normal and symmetric, hearing is intact to finger rub bilaterally, palate and tongue movements are intact and symmetric. SCM and trapezius strength normal. Motor: Normal tone, bulk and strength (5/5) bilaterally (throughout extremities x4). Reflexes: 2/4 and symmetric, plantar stimulation is flexor. Coordination: FNF, SHIRLENE, HTS intact. No tremors. Sensation: LT, PP, vibration, temperature intact throughout. No evidence of neglect. Gait: Narrow based and stable with normal stride and arm swing. Normal tandem. Romberg normal. Assessment and Plan: ASSESSMENT/PLAN: 1. Lightheaded - ICD9: 780.4, ICD10: R42 (primary diagnosis) 2. Orthostatic hypotension - ICD9: 458.0, ICD10: I95.1 3. Myelomalacia of cervical cord (HCC) - ICD9: 336.8, ICD10: G95.89 4. Spinal stenosis of cervical region - ICD9: 723.0, ICD10: M48.02 5. Spinal stenosis of lumbar region, unspecified whether neurogenic 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 present - ICD9: 724.02, ICD10: M48.061 6. History of stroke - ICD9: V12.54, ICD10: Z86.73 7. Abnormality of gait - ICD9: 781.2, ICD10: R26.9 Patient overall stable as above. However, continues to have daily lightheadedness and obvious orthostatic hypotension. No response to compression stockings. Encouraged increase in water intake. In addition remains on Norvasc which could further exacerbate orthostatic hypotension and would ask those treating HTN if alternative is available. In addition to med changes, also question if patient might benefit from low dose of Florinef in AM - would need to monitor for HTN, but per discussion seems like lightheadedness worse during first half of day, and thus, low dose may be adequate. As with anti-HTN meds would like opinion of PCP and cardiology. Meanwhile, overall gait improved with walker - appears quite stable in office. That said, rollator appears too short and will provide Rx to try andget a new one that fits patient's height. Again, symptoms of gait instability multifactorial including known C spine dz, hx stroke and OH. Explained to pt that these will be chronic and thus focus should be on stabilizing condition rather than reversing. He is understanding as is . As for history of stroke, no new focal neuro deficits. Continues on Plavix 75mg daily as well as statin. BP goaland glucose goals reviewed. Landon Strange MD I spent a total of 50 minutes on the date of the service which included preparing to see the patient, [id number] patient care, completing clinical documentation, obtaining and/or reviewing separately obtained history, performing a medically appropriate examination, counseling and educating the pat ient/family/caregiver, ordering medications, tests, or procedures, communicating with other HCPs (not separately reported), and communicating results to the patient/family/caregiver. documented in this encounterAdena [facility]07-[facility] NoteHNO ID: [id number] Author: RACHEL PETTIT LPN Service: ? Author Type: LICENSED NURSE Type: Progress Notes Filed: 12/18/2024 15:12 Note Text: Interpreting services utilized via (academic interventionist service modality: academic interventionist not needed for appointment). Patient can hear but is hard of hearing and is accompanied by his , Tere. Verified name and date of . CC Post Void Residual HPI: Rony Monzon is a 84 year old male. The patient is here now for an appointment with Micheal Allen APRN, CNP due to post operative weak urinary stream. Procedure: Explained procedure to patient and verbalizes understanding. Performed a PVR. Patient urinated and instructed to empty bladder as much as possible just prior to having PVR done using bladder ultrasound scanner. Results of scan: 0 mL The patient tolerated the procedure well. Plan: Michela Allen APRN, CNPLakehealth [facility]07-30-2025 History of Present illness Narrative* Rachel Pettit LPN - 12/18/2024 2:02 PM EDT Interpreting services utilized via (academic interventionist service modality: academic interventionist not needed for appointment). Patient can hear but is hard of hearing and is accompanied by his , Tere. Verified name and date of . CC Post Void Residual HPI: Rony Monzon is a 84 year old male. The patient is here now for an appointment with Micheal Allen APRN, CNP due to post operative weak urinary stream. Procedure: Explained procedure to patient and verbalizes understanding. Performed a PVR. Patient urinated and instructed to empty bladder as much as possible just prior to having PVR done using bladder ultrasound scanner. Results of scan: 0 mL The patient tolerated the procedure well. Plan: Micheal Allen APRN, CNP * Gertrude Allen APRN.THANG - 12/18/2024 2:00 PM EDT Images from the original note were not included. SUBJECTIVE: Rony Monzon presents for follow up of his umbilical hernia repair WITH mesh. On 12/13/24 he underwent a hernia repair, tolerated the procedure well and was discharged home. Rony notes that he developed difficulty with his urinary stream on POD #4. -notes hx of prostate issues & has had trouble with urinary stream occasionally prior to surgery, had LUTS procedure 2-3 years ago, follows with Dr. Ibarra -still taking percocet twice a day -notes he struggled with constipation post op-had a large BM a couple of days ago after taking milkof mag, now having diarrhea. -notes he struggles with constipation prior to surgery -he denies any hematuria/cloudy/foul smelling/dark urine Rony notes he is icing the abdomen and it is helping with pain management OBJECTIVE: BP 130/72 (BP Site: Right Arm, BP Position: Sitting, BP Cuff Size: Regular Adult) Pulse 68 Temp 36.2 C (97.1 F) (Temporal) Resp 14 Wt 94.3 kg (208 lb) SpO2 96% BMI 27.44 kg/m General Appearance: Well developed, No acute distress Abdomen: Abdomen soft, non-distended. Incision: no drainage, no erythema, mild swelling, moderate ecchymosis, and mild tenderness PVR:0 IMPRESSION: Post op course: Normal PLAN: -Start using miraLAX daily while taking the percocet -Drink plenty of water -Okay to remove dressing in the next couple of day -Continue to ice the incision -I will call with UA results -Schedule follow up appt with Dr. Ibarra since urinary issues have been a problem prior to surgery Follow up: on Dec 27 for scheduled post op visit or sooner with worsening symptoms Gertrude Allen APRN.FORM SETTER [employer] documented in this [facility] NoteHNO ID: [id number] Author: GERTRUDE ALLEN APRN.CNP Service: ? Author Type: Nurse Practitioner Type: Progress Notes Filed: 12/18/2024 15:12 Note Text: SUBJECTIVE: Rony Monzon presents for follow up of his umbilical hernia repair WITH mesh. On 12/13/24 he underwent a hernia repair, tolerated the procedure well and was discharged home. Rony notes that he developed difficulty with his urinary stream on POD #4. -notes hx of prostate issues AND has had trouble with urinary stream occasionally prior to surgery, had LUTS procedure 2-3 years ago, follows with Dr. Ibarra -still taking percocet twice a day -notes he struggled with constipation post op-had a large BM a couple of days ago after taking milk of mag, now having diarrhea. -notes he struggles with constipation prior to surgery -he denies any hematuria/cloudy/foul smelling/dark urine Rony notes he is icing the abdomen and it is helping with pain management OBJECTIVE: BP 130/72 (BP Site: Right Arm, BP Position: Sitting, BP Cuff Size: Regular Adult) Pulse 68 Temp 36.2 ?C (97.1 ?F) (Temporal) Resp 14 Wt 94.3 kg (208 lb) SpO2 96% BMI 27.44 kg/m? General Appearance: Well developed, No acute distress Abdomen: Abdomen soft, non-distended. Incision: no drainage, no erythema, mild swelling, moderate ecchymosis, and mild tenderness PVR:0 IMPRESSION: Post op course: Normal PLAN: -Start using miraLAX daily while taking the percocet -Drink plenty of water -Okay to remove dressing in the next couple of day -Continue to ice the incision -I will call with UA results -Schedule follow up appt with Dr. Ibarra since urinary issues have been a problem prior to surgery Follow up: on Dec 27 for scheduled post op visit or sooner with worsening symptoms Gertrude Allen APRN.[facility]PL[facility] Telephone encounter Note* Telephone Encounter - Sheldon Slater MD - 12/18/2024 11:00 AM EDT Get the patient into see karla [facility]07-30-[facility]25 Miscellaneous Notes* Telephone Encounter - Sheldon Slater MD - 12/18/2024 11:00 AM EDT Get the patient into see karla * Telephone Encounter - Alejandra Guiterrez LPN - 12/18/2024 9:22 AM EDT Patient and called into office stating that starting yesterday 12/17/2024 patient began experiencing difficultly urinating. Patient complain of weak stream and that he can not empty bladder completely. Patient states that he feels that symptoms are worse today. Patient states not blood in urine. Advise patient that if he comes unable to urinate at all to present to ED. Please advise and contact patient and at [phone]. Alejandra Gutierrez LPN documented in this encounterAden[facility]07-[facility]25 Telephone encounter Note * Telephone Encounter - Alejandra Gutierrez LPN - 12/18/2024 9:22 AM EDT Patient and called into office stating that starting yesterday 12/17/2024 patient began experiencing difficultly urinating. Patient complain of weak stream and that he can not empty bladder completely. Patient states that he feels that symptoms are worse today. Patient states not blood in urine. Advise patient that if he comes unable to urinate at all to present to ED. Please advise and contact patient and at [phone]. Alejandra Gutierrez LPN [facility] Work Phone: 1(364) 848-238607-25-2025 NoteHNO ID: [id number] Author: ?, ?, ? Service: Pharmacy Author Type: ? Type: Plan of Care Filed: 12/13/2024 13:34 Note Text: PHARMACY BEDSIDE DELIVERY SERVICE Patient Name: Rony Monzon The marked outpatient medications were Filled at: [place] and delivered to the patient's bedside to pharm p/u Medication List START taking these medications oxyCODONE-acetaminophen 5-325 mg tablet Commonly known as: PERCOCET Take 1 tablet by mouth every 6 hours as needed for up to 5 days. X CONTINUE taking these medications acetaminophen 500 mg tablet Commonly known as: TYLENOL EXTRA STRENGTH Take 1 tablet by mouth every 6 hours as needed for pain. amLODIPine 5 mg tablet Commonly known as: NORVASC Take 1 tablet by mouth two times a day. amoxicillin 500 mg capsule Commonly known as: AMOXIL 4 capsules 1 hours prior to dental procedure. clopidogrel 75 mg tablet Commonly known as: PLAVIX Take 1 tablet by mouth once daily. FLUoxetine 40 mg capsule Commonly known as: PROzac Take 1 capsule by mouth once daily. lisinopril 10 mg tablet Commonly known as: PriniviL Take 1 tablet by mouth twice daily. Dr. Kramer multivitamin tablet nitroglycerin sublingual 0.4 mg SL tablet Commonly known as: NITROSTAT Dissolve 1 tablet under the tongue every 5 minutes as needed for chest pain. oxyCODONE IR 5 mg immediate release tablet Commonly known as: ROXICODONE propranolol 20 mg tablet Commonly known as: INDERAL Take 1 tablet by mouth two times a day. rosuvastatin 10 mg tablet Commonly known as: CRESTOR Take 1 tablet by mouth daily at bedtime. You might also be taking other medications not listed above. If you have questions about any of your other medications, talk to the person who prescribed them or your Primary Care Provider. Maria L Victor PAGER: [phone] December 13, 2024 1:34 PMSt. [facility] [id number] NoteHNO ID: [id number] Author: PASTORA OSEI APRN.CELL OPERATOR Service: Anesthesiology Author Type: Nurse Speech Therapy Teacher Type: Anesthesia Procedure Notes Filed: 12/13/2024 09:36 Note Text: ANESTHESIOLOGY PROCEDURE NOTE Airway General Information Procedure Start Time/Medication Administration: 12/13/2024 9:26 AM Procedure End Time: 12/13/2024 9:26 AM Patient location during procedure: OR Timeout Performed Pre-procedure: timeout performed Consent Obtained: Yes Patient identity confirmed: arm band and patient Staffing Performed by: CELL OPERATOR Indications and Patient Condition Indications for airway management: anesthesia Preoxygenated: yes anesthesia circuit Patient position: sniffing Method: asleep Final Airway Details Final airway type: endotracheal airway Final Endotracheal Airway: ETT Successful intubation technique: video laryngoscopy Devices used: Dotstud[employer] Endotracheal tube insertion site: oral Blade: Bridget Blade size: #4 ETT size (mm): 7.5 Placement verified by: capnometry Cormack-Lehane Classification: grade I - full view of glottis Number of attempts at approach: 1 Comments Many broken teeth pre-op, IDVL x 1, atraumatic SIGNATURE: Pastora Osei APRN.CELL OPERATOR PATIENT NAME: Rony Monzon DATE: December 13, 2024 TIME: 9:35 AM CSN: [id number] Telephone encounter Note* Telephone Encounter - Sveta Arana LPN - 12/02/2024 10:02 AM EDT Last office visit printed and scanned into [employer] through Onbase scanning. Sveta Arana LPN [facility]07-14-2025 Miscellaneous Notes* Telephone Encounter - Sveta Arana LPN - 12/02/2024 10:02 AM EDT Last office visit printed and scanned into [employer] through Onbase scanning. Sveta Arana LPN * Telephone Encounter - Sveta Arana LPN - 11/29/2024 1:04 PM EDT Printed last office visit and cardiac testing. Scanned into [employer] through Onbase scanning. Sveta Arana LPN * Telephone Encounter - Sindy Denise APRN.CNP - 11/29/2024 10:25 AM EDT Can we request last cardiac OV and testing from [facility]. DOS 12/13/24. documented in this encounterAdena [facility]07-11-2025 Telephone encounter Note * Telephone Encounter - Sveta Arana LPN - 11/29/2024 1:04 PM EDT Printed last office visit and cardiac testing. Scanned into [employer] through Onbase scanning. Sveta Arana LPN [facility]07-11-2025 Telephone encounter Note* Telephone Encounter - Sindy Denise APRN.CNP - 11/29/2024 10:25 AM EDT Can we request last cardiac OV and testing from [facility]. DOS 12/13/24. [facility]07-11-2025 History and physical note* Sindy Denise APRN.CNP - 11/29/2024 9:52 AM EDT Images from the original note were not included. [facility] HISTORY AND PHYSICAL EXAMINATION SERVICE DATE: 11/29/2024 SERVICE TIME: 10:38 AM PRIMARY CARE PHYSICIAN: George Vaughan MD Assessment Patient has the following medical conditions which may affect brooke-operative course: Coronary artery disease involving [place] coronary artery of [place] heart without angina pectoris Assessment: s/p stent 2010, c/w daily ASA, statin, and BB. Following [facility], reports normal stress earlier this year, records requested BENIGN HYPERTENSION Assessment: controlled on rx Last 14 BP Last 14 Encounter BP Readings: Date: BP: 11/29/2024 138/72 11/19/2024 136/64 08/21/2024 151/85 07/23/2024 128/64 05/16/2024 148/72 04/30/2024 146/81 01/26/2024 136/78 12/30/2023 119/74 10/18/2023 143/83 08/11/2023 123/71 06/02/2023 120/64 05/16/2023 146/82 04/27/2023 142/80 03/01/2023 130/58 Hyperlipidemia, mixed Assessment: c/w statin REHAN on CPAP Assessment: non-compliant with CPAP ESOPHAGEAL REFLUX Assessment: otc rx as needed Hypertrophy of prostate with urinary obstruction Assessment: s/p TURP Nontoxic multinodular goiter Assessment: reports intermittent dysphagia, 2021 thyroid nodule seen on CTA neck 2.4cm Anemia Assessment: hx Hemoglobin (g/dL) Date Value 08/23/2024 12.7 04/23/2021 11.7 Hematocrit (%) Date Value 08/23/2024 38.4 04/23/2021 35.6 WBC (k/uL) Date Value 08/23/2024 8.98 04/23/2021 8.08 IMPAIRED FASTING GLUCOSE Assessment: diet controlled Hemoglobin A1C (%) Date Value 08/23/2024 5.7 10/21/2019 5.8 Cervical spondylosis Assessment: limited CROM Depression Assessment: stable on rx per pt History of total right hip arthroplasty Assessment: hx Orthostatic hypotension Assessment: PCP and cardiology working on adjusting meds, had f/u cardiology appt today, records requested SOB (shortness of breath) on exertion Assessment: chronic, unchanged per and pt, recent stress test earlier this normal, records requested History of CVA in adulthood Assessment: no residual deficits per and pt, although pt has significant gait abnormality/LE weakness ambulating, following neurology Office Visit on 08/21/2024 ANESTHESIA FINDINGS: Intubation History: No history of difficult intubation Significant Anesthesia Considerations: none Airway History: No history of difficult airway Soto Activity Status Index: METS: Walk indoors, such as around the house (1.75 METs) Do light work around the house, such as dusting or washing dishes (2.70 METs) Take care of self; that is eating, dressing, bathing, using the toilet (2.75 METs) DASI Score: 7.2 (With Rollator) Patient denies any chest pain or undue shortness of breath with the above physical activity. Clinical Frailty Scale: 4. Apparently vulnerable STOP-Bang Score: Snores loudly Has or is being treated for high blood pressure Male patient Denies feeling tired, fatigued, or sleepy during the daytime Has not been observed to stop breathing or choking/gasping during sleep BMI less than or equal to 35 kg/m^2 Patient 50 years old or younger Does not have a large neck STOP-Bang Score: 3 [id number] Score: Age: >=75 Sex: male CHF history: No Hypertension history: Yes Stroke/TIA/thromboembolism history: Yes Vascular disease history: Yes Diabetes history: No [id number] Score: 6 I - PHYSICAL EVALUATION AIRWAY Patient intubated: No. Tracheostomy tube not present Mallampati: III. TM distance: >3 FB. Neck ROM: limited flexion and extension. Mouth opening: adequate. Short neck: no. Thick neck: no Resendiz present: no Lip Bite Test: I Microretrognathia/Micronagthia/Recessed Chin: No DENTAL Dental findings: teeth intact. II - ANESTHESIA PLAN Anesthetic Plan: other Beta Anderson Monitoring Plan Post Procedure Analgesic Plan Prepared for Surgery: optimally prepared for surgery. CONSULTS: Patient does not require consults for optimization at this time Planned Anesthetic: other anesthesia choice The Following Tests/Procedures Have Been Initiated: No orders of the defined types were placed in this encounter. REASON FOR VISIT: Rony Monzon is a 84 year old male who is scheduled for Procedure(s): HERNIORRHAPHY UMBILICAL REDUCIBLE 3cm-10cm (N/A) at the request of Dr. Sheldon Slater for consultation. My final recommendation will be communicated back to the requesting physician by way of shared medical record or letter. Subjective The patient has the following: COVID-19 Immunization Status Current Care Gaps Covid-19 Vaccine ( season) Overdue since 08/08/2024 02/09/2024 Imm Admin: COVID-19 vaccine, age 12+ yr (PFIZER-BIONTECH COMIRNATY) 04/11/2023 Imm Admin: COVID-19 vaccine, age 12+ yr (PFIZER-BIONTECH COMIRNATY) 02/18/2022 Imm Admin: COVID-19 vaccine, age 12+ yr, bivalent (MODERNA) Only the first 3 history entries have been loaded, but more history exists. CHIEF COMPLAINT: Pre-op exam HPI: Rony Monzon is a 84 year old seen for PAC due to scheduled above surgery because of a hernia. 11/19/24, Dr. Sheldon Slater HPI: Rony is a 84 year old male with a complaint of a bulge and discomfort in his umbilical region. The patient notes discomfort in this area with lifting. The symptoms have increased, over the pastfew weeks. The patient notes no symptoms of bowel obstruction and denies nausea or vomiting. The patient was seen by the emergency room physician who felt the patient has a hernia. Rony was referred for evaluation and treatment. The patient is being seen by me today at the request of Dr. George Vaughan MD for my opinion and advice regarding Umbilical hernia without obstruction and without gangrene (primary encounter diagnosis). REVIEW OF SYSTEMS: General: No weight loss, malaise or fevers. Neurological: +tremor Positive for: strokes. Patient's stroke is without residual deficits. Negative for: seizures and TIA. Respiratory: +former smoker Positive for: dyspnea (chronic), obstructive sleep apnea and CPAP/BiPAP noncompliant. Negative for: asthma, COPD, current cough, pneumonia within 6 weeks, tobacco use and URI < 2 weeks. Cardiovascular: Positive for: anticoagulation therapy (Plavix), CAD, hyperlipidemia and hypertension Patient's last office visit with human resource intern, RUSLAN, The following tests and/or procedures were performed: cardiac stents. Negative for: abdominal aortic aneurysm, AICD/PPM, angina, arrhythmia, atrial fibrillation, chest pain, CHF, congenital heart defect, DVT/PE, recent NM, murmur/valvular heart disease, PTCA, PVD, openheart surgery and valve surgery. GI: See HPI. Positive for: dysphagia Negative for: abdominal pain, GERD, hepatitis, irritable bowel syndrome, inflammatory bowel disease, liver disease, nausea, pancreatitis, vomiting and ETOH >2 drinks/day. : Positive for: BPH (s/p TURP). Negative for: nephrolithiasis, renal failure and urinary tract infection. Endocrine: No history of diabetes. Has not taken steroids within the past 30 days. No history of endocrinological symptoms or problems. Hematology: Positive for: bruises/bleeds easily and chronic anti-coagulation/platelet meds. Patient is on anti-coagulation/platelet medication(s): Plavix. Negative for: anemia and transfusion of at least 4 units within 72 hours prior to surgery. Oncology: No history of CA metastasis, chemo within 30 days, or radiotherapy within 90 days. No history of oncological symptoms or problems. Psych: Positive for: anxiety and depression (on rx). Negative for: Marijuana Use. Musculoskeletal: +hx lumbar laminectomy +hx right DORENE Positive for: back pain. Skin: Negative for lesions, rash and itching. Implanted Devices: No implanted devices. PAST MEDICAL HISTORY Diagnosis Date Adjustment disorder with depressed mood Anemia Benign neoplasm of colon Constipation Coronary artery disease Diabetes (HCC) Essential hypertension, benign Gallbladder polyp needs repeat ultrasound in 06/06 H/O hiatal hernia Impaired fasting glucose Internal hemorrhoids without mention of complication Other and unspecified hyperlipidemia Personal history of colonic polyps Umbilical hernia PAST SURGICAL HISTORY Procedure Laterality Date APPENDECTOMY ARTHRP ACETBLR/PROX FEM PROSTC AGRFT/ALGRFT Right 08/08/2018 Dr. Charly Suh CARDIAC CATH N/A 02/02/2015 Completed at [facility] COLONOSCOPY FLX DX W/COLLJ SPEC WHEN PFRMD 07/11/12 Colonoscopy COLONOSCOPY FLX DX W/COLLJ SPEC WHEN PFRMD 02/24/2017 Colonoscopy COLONOSCOPY W/BIOPSY SINGLE/MULTIPLE 03/29/06 ESOPHAGOGASTRODUODENOSCOPY TRANSORAL DIAGNOSTIC 02/24/2017 EGD [place] W/O FACETEC FORAMOT/DSC 1/[address] Cole PAST SURGICAL HISTORY OF Right 2007 knee surgery RPR [place] VAGINALIS HYDROCELE BOTTLE TYPE STENT PLACEMENT 08/2010 [facility] VASECTOMY UNI/BI SPX W/POSTOP SEMEN EXAMS FAMILY HISTORY Problem Relation Age of Onset Heart Brother valvular heart disease Heart Brother valvular heart disease Heart Brother valvular heart diease Hypertension Sister COPD Father Stroke Father Heart Mother Social History Tobacco Use Smoking status: Former Current packs/day: 0.00 Types: Cigarettes, Pipe Start date: 1962 Quit date: 1981 Years since quittin.5 Passive exposure: Past Smokeless tobacco: Former Quit date: 05/22/1981 Tobacco comments: Quit in 1981 Vaping Use Vaping status: Never Used Substance Use Topics Alcohol use: No Drug use: No Prior to Admission medications as of 11/29/24 1018 Medication Sig Last Dose Taking amoxicillin (AMOXIL) 500 mg capsule 4 capsules 1 hours prior to dental procedure. Yes rosuvastatin (CRESTOR) 10 mg tablet Take 1 tablet by mouth daily at bedtime. Yes propranolol (INDERAL) 20 mg tablet Take 1 tablet by mouth two times a day. Yes amLODIPine (NORVASC) 5 mg tablet Take 1 tablet by mouth two times a day. Yes clopidogrel (PLAVIX) 75 mg tablet Take 1 tablet by mouth once daily. Yes FLUoxetine (PROZAC) 40 mg capsule Take 1 capsule by mouth once daily. Yes oxyCODONE IR (ROXICODONE) 5 mg immediate release tablet EVERY 6 HOURS NEEDED Yes lisinopril (PRINIVIL) 10 mg tablet Take 1 tablet by mouth twice daily. Dr. Kramer Yes nitroglycerin sublingual (NITROSTAT) 0.4 mg SL tablet Dissolve 1 tablet under the tongue every 5 minutes as needed for chest pain. Yes acetaminophen (TYLENOL EXTRA STRENGTH) 500 mg tablet Take 1 tablet by mouth every 6 hours as neededfor pain. Yes multivitamin tablet Take 1 tablet by mouth once daily. Yes No medication comments found. ALLERGIES Allergen Reactions Lyrica [Pregabalin] Swelling B/L hand swelling Neurontin [Gabapent* Swelling Feels that he does not have a true allergy to this medication. States he had swelling, not rash. Norflex [Orphenadri* GI Upset Objective PHYSICAL EXAM: General: alert and oriented (x3) and healthy appearance. Pertinent negatives noted - not distressed. With rollator. Skin: normal color, no rash or lesions. HEENT: EOM intact and pupils equal round. Pertinent negatives noted - no carotid bruit. Cardiovascular: regular rate and rhythm, normal S1 and S2, no rub, murmurs, or gallop. Respiratory: normal breath sounds, no wheezes or crackles. No chest wall deformity or tenderness. Abdomen: soft. Pertinent negatives noted - not tender. Extremities: no deformity, no edema or tenderness, no joint swelling or clubbing. Neurological: normal cognition and motor skills. Positive for abnormal gait. PAIN ASSESSMENT: VITALS: BP 138/72 Pulse 61 Temp (Src) 97.1 (Temporal) Resp 14 Ht 6' 1 (1.85m) Wt 218 lb (98.9kg) SpO2 98% BMI 28.77 kg/(m^2). Diagnostic tests reviewed for today's visit: Lab Value Units Date High Low HB 12.7 g/dL 08/23/2024 17.0 13.0 HCT 38.4 % 08/23/2024 51.0 39.0 WBC 8.98 k/uL 08/23/2024 11.00 3.70 PLT 334 k/uL 08/23/2024 400 150 NA 138 mmol/L 08/23/2024 144 136 K 4.7 mmol/L 08/23/2024 5.1 3.7 GLUC 114 mg/dL 08/23/2024 99 74 BUN 15 mg/dL 08/23/2024 24 9 CREAT 1.12 mg/dL 08/23/2024 1.22 0.73 PTSEC No results within date range. INR No results within date range. APTT No results within date range. ALT 22 U/L 08/23/2024 54 10 AST 25 U/L 08/23/2024 40 14 TBILI 0.5 mg/dL 08/23/2024 1.3 0.2 TSH No results within date range. Lab Value Units Date High Low HCGQT No results within date range. UHCG No results within date range. HCG, BODY* No results within date range. Lab Value Units Date High Low ABORHD No results within date range. ABSCREEN No results within date range. Hemoglobin A1C (%) Date Value 08/23/2024 5.7 11/27/2023 5.7 04/25/2023 5.6 10/25/2022 5.9 04/25/2022 5.8 10/21/2019 5.8 04/09/2019 5.8 12/31/2018 5.9 02/20/2018 5.8 07/31/2017 5.8 No results found for this or any previous visit (from the past 8760 hours). No results found for this or any previous visit (from the past 56833 hours). Instructions Given to Patient: Instructions located in the after visit summary. Patient given verbal and written preop instructions and voices comprehension and compliance. SIGNATURE: Sindy Denise APRN.CNP PATIENT NAME: Rony Monzon DATE: November 29, 2024 TIME: 9:52 AM PAGER/CONTACT #: [facility]07-11-2025 History and physical note* Sindy Denise APRN.CNP - 11/29/2024 9:52 AM EDT Images from the original note were not included. [facility] HISTORY AND PHYSICAL EXAMINATION SERVICE DATE: 11/29/2024 SERVICE TIME: 10:38 AM PRIMARY CARE PHYSICIAN: George Vaughan MD Assessment Patient has the following medical conditions which may affect brooke-operative course: Coronary artery disease involving [place] coronary artery of [place] heart without angina pectoris Assessment: s/p stent 2010, c/w daily ASA, statin, and BB. Following [facility], reports normal stress earlier this year, records requested BENIGN HYPERTENSION Assessment: controlled on rx Last 14 BP Last 14 Encounter BP Readings: Date: BP: 11/29/2024 138/72 11/19/2024 136/64 08/21/2024 151/85 07/23/2024 128/64 05/16/2024 148/72 04/30/2024 146/81 01/26/2024 136/78 12/30/2023 119/74 10/18/2023 143/83 08/11/2023 123/71 06/02/2023 120/64 05/16/2023 146/82 04/27/2023 142/80 03/01/2023 130/58 Hyperlipidemia, mixed Assessment: c/w statin REHAN on CPAP Assessment: non-compliant with CPAP ESOPHAGEAL REFLUX Assessment: otc rx as needed Hypertrophy of prostate with urinary obstruction Assessment: s/p TURP Nontoxic multinodular goiter Assessment: reports intermittent dysphagia, 2021 thyroid nodule seen on CTA neck 2.4cm Anemia Assessment: hx Hemoglobin (g/dL) Date Value 08/23/2024 12.7 04/23/2021 11.7 Hematocrit (%) Date Value 08/23/2024 38.4 04/23/2021 35.6 WBC (k/uL) Date Value 08/23/2024 8.98 04/23/2021 8.08 IMPAIRED FASTING GLUCOSE Assessment: diet controlled Hemoglobin A1C (%) Date Value 08/23/2024 5.7 10/21/2019 5.8 Cervical spondylosis Assessment: limited CROM Depression Assessment: stable on rx per pt History of total right hip arthroplasty Assessment: hx Orthostatic hypotension Assessment: PCP and cardiology working on adjusting meds, had f/u cardiology appt today, records requested SOB (shortness of breath) on exertion Assessment: chronic, unchanged per and pt, recent stress test earlier this normal, records requested History of CVA in adulthood Assessment: no residual deficits per and pt, although pt has significant gait abnormality/LE weakness ambulating, following neurology Office Visit on 08/21/2024 ANESTHESIA FINDINGS: Intubation History: No history of difficult intubation Significant Anesthesia Considerations: none Airway History: No history of difficult airway Soto Activity Status Index: METS: Walk indoors, such as around the house (1.75 METs) Do light work around the house, such as dusting or washing dishes (2.70 METs) Take care of self; that is eating, dressing, bathing, using the toilet (2.75 METs) DASI Score: 7.2 (With Rollator) Patient denies any chest pain or undue shortness of breath with the above physical activity. Clinical Frailty Scale: 4. Apparently vulnerable STOP-Bang Score: Snores loudly Has or is being treated for high blood pressure Male patient Denies feeling tired, fatigued, or sleepy during the daytime Has not been observed to stop breathing or choking/gasping during sleep BMI less than or equal to 35 kg/m^2 Patient 50 years old or younger Does not have a large neck STOP-Bang Score: 3 [id number] Score: Age: >=75 Sex: male CHF history: No Hypertension history: Yes Stroke/TIA/thromboembolism history: Yes Vascular disease history: Yes Diabetes history: No [id number] Score: 6 I - PHYSICAL EVALUATION AIRWAY Patient intubated: No. Tracheostomy tube not present Mallampati: III. TM distance: >3 FB. Neck ROM: limited flexion and extension. Mouth opening: adequate. Short neck: no. Thick neck: no Resendiz present: no Lip Bite Test: I Microretrognathia/Micronagthia/Recessed Chin: No DENTAL Dental findings: teeth intact. II - ANESTHESIA PLAN Anesthetic Plan: other Beta Anderson Monitoring Plan Post Procedure Analgesic Plan Prepared for Surgery: optimally prepared for surgery. CONSULTS: Patient does not require consults for optimization at this time Planned Anesthetic: other anesthesia choice The Following Tests/Procedures Have Been Initiated: No orders of the defined types were placed in this encounter. REASON FOR VISIT: Rony Monzon is a 84 year old male who is scheduled for Procedure(s): HERNIORRHAPHY UMBILICAL REDUCIBLE 3cm-10cm (N/A) at the request of Dr. Sheldon Slater for consultation. My final recommendation will be communicated back to the requesting physician by way of shared medical record or letter. Subjective The patient has the following: COVID-19 Immunization Status Current Care Gaps Covid-19 Vaccine () Overdue since 08/08/2024 02/09/2024 Imm Admin: COVID-19 vaccine, age 12+ yr (PFIZER-BIONTECH COMIRNATY) 04/11/2023 Imm Admin: COVID-19 vaccine, age 12+ yr (PFIZER-BIONTECH COMIRNATY) 02/18/2022 Imm Admin: COVID-19 vaccine, age 12+ yr, bivalent (MODERNA) Only the first 3 history entries have been loaded, but more history exists. CHIEF COMPLAINT: Pre-op exam HPI: Rony Monzon is a 84 year old seen for PAC due to scheduled above surgery because of a hernia. 11/19/24, Dr. Sheldon Slater HPI: Rony is a 84 year old male with a complaint of a bulge and discomfort in his umbilical region. The patient notes discomfort in this area with lifting. The symptoms have increased, over the pastfew weeks. The patient notes no symptoms of bowel obstruction and denies nausea or vomiting. The patient was seen by the emergency room physician who felt the patient has a hernia. Rony was referred for evaluation and treatment. The patient is being seen by me today at the request of Dr. George Vaughan MD for my opinion and advice regarding Umbilical hernia without obstruction and without gangrene (primary encounter diagnosis). REVIEW OF SYSTEMS: General: No weight loss, malaise or fevers. Neurological: +tremor Positive for: strokes. Patient's stroke is without residual deficits. Negative for: seizures and TIA. Respiratory: +former smoker Positive for: dyspnea (chronic), obstructive sleep apnea and CPAP/BiPAP noncompliant. Negative for: asthma, COPD, current cough, pneumonia within 6 weeks, tobacco use and URI < 2 weeks. Cardiovascular: Positive for: anticoagulation therapy (Plavix), CAD, hyperlipidemia and hypertension Patient's last office visit with human resource intern, RUSLAN, The following tests and/or procedures were performed: cardiac stents. Negative for: abdominal aortic aneurysm, AICD/PPM, angina, arrhythmia, atrial fibrillation, chest pain, CHF, congenital heart defect, DVT/PE, recent NM, murmur/valvular heart disease, PTCA, PVD, openheart surgery and valve surgery. GI: See HPI. Positive for: dysphagia Negative for: abdominal pain, GERD, hepatitis, irritable bowel syndrome, inflammatory bowel disease, liver disease, nausea, pancreatitis, vomiting and ETOH >2 drinks/day. : Positive for: BPH (s/p TURP). Negative for: nephrolithiasis, renal failure and urinary tract infection. Endocrine: No history of diabetes. Has not taken steroids within the past 30 days. No history of endocrinological symptoms or problems. Hematology: Positive for: bruises/bleeds easily and chronic anti-coagulation/platelet meds. Patient is on anti-coagulation/platelet medication(s): Plavix. Negative for: anemia and transfusion of at least 4 units within 72 hours prior to surgery. Oncology: No history of CA metastasis, chemo within 30 days, or radiotherapy within 90 days. No history of oncological symptoms or problems. Psych: Positive for: anxiety and depression (on rx). Negative for: Marijuana Use. Musculoskeletal: +hx lumbar laminectomy +hx right DORENE Positive for: back pain. Skin: Negative for lesions, rash and itching. Implanted Devices: No implanted devices. PAST MEDICAL HISTORY Diagnosis Date Adjustment disorder with depressed mood Anemia Benign neoplasm of colon Constipation Coronary artery disease Diabetes (HCC) Essential hypertension, benign Gallbladder polyp needs repeat ultrasound in 06/06 H/O hiatal hernia Impaired fasting glucose Internal hemorrhoids without mention of complication Other and unspecified hyperlipidemia Personal history of colonic polyps Umbilical hernia PAST SURGICAL HISTORY Procedure Laterality Date APPENDECTOMY ARTHRP ACETBLR/PROX FEM PROSTC AGRFT/ALGRFT Right 08/08/2018 Dr. Charly Suh CARDIAC CATH N/A 02/02/2015 Completed at [facility] COLONOSCOPY FLX DX W/COLLJ SPEC WHEN PFRMD 07/11/12 Colonoscopy COLONOSCOPY FLX DX W/COLLJ SPEC WHEN PFRMD 02/24/2017 Colonoscopy COLONOSCOPY W/BIOPSY SINGLE/MULTIPLE 03/29/06 ESOPHAGOGASTRODUODENOSCOPY TRANSORAL DIAGNOSTIC 02/24/2017 EGD [place] W/O FACETEC FORAMOT/DSC 05/[address] Cole PAST SURGICAL HISTORY OF Right 2007 knee surgery RPR [place] VAGINALIS HYDROCELE BOTTLE TYPE STENT PLACEMENT 08/2010 [facility] VASECTOMY UNI/BI SPX W/POSTOP SEMEN EXAMS FAMILY HISTORY Problem Relation Age of Onset Heart Brother valvular heart disease Heart Brother valvular heart disease Heart Brother valvular heart diease Hypertension Sister COPD Father Stroke Father Heart Mother Social History Tobacco Use Smoking status: Former Current packs/day: 0.00 Types: Cigarettes, Pipe Start date: 1962 Quit date: 1981 Years since quittin.5 Passive exposure: Past Smokeless tobacco: Former Quit date: 05/22/1981 Tobacco comments: Quit in 1981 Vaping Use Vaping status: Never Used Substance Use Topics Alcohol use: No Drug use: No Prior to Admission medications as of 11/29/24 1018 Medication Sig Last Dose Taking amoxicillin (AMOXIL) 500 mg capsule 4 capsules 1 hours prior to dental procedure. Yes rosuvastatin (CRESTOR) 10 mg tablet Take 1 tablet by mouth daily at bedtime. Yes propranolol (INDERAL) 20 mg tablet Take 1 tablet by mouth two times a day. Yes amLODIPine (NORVASC) 5 mg tablet Take 1 tablet by mouth two times a day. Yes clopidogrel (PLAVIX) 75 mg tablet Take 1 tablet by mouth once daily. Yes FLUoxetine (PROZAC) 40 mg capsule Take 1 capsule by mouth once daily. Yes oxyCODONE IR (ROXICODONE) 5 mg immediate release tablet EVERY 6 HOURS NEEDED Yes lisinopril (PRINIVIL) 10 mg tablet Take 1 tablet by mouth twice daily. Dr. Kramer Yes nitroglycerin sublingual (NITROSTAT) 0.4 mg SL tablet Dissolve 1 tablet under the tongue every 5 minutes as needed for chest pain. Yes acetaminophen (TYLENOL EXTRA STRENGTH) 500 mg tablet Take 1 tablet by mouth every 6 hours as neededfor pain. Yes multivitamin tablet Take 1 tablet by mouth once daily. Yes No medication comments found. ALLERGIES Allergen Reactions Lyrica [Pregabalin] Swelling B/L hand swelling Neurontin [Gabapent* Swelling Feels that he does not have a true allergy to this medication. States he had swelling, not rash. Norflex [Orphenadri* GI Upset Objective PHYSICAL EXAM: General: alert and oriented (x3) and healthy appearance. Pertinent negatives noted - not distressed. With rollator. Skin: normal color, no rash or lesions. HEENT: EOM intact and pupils equal round. Pertinent negatives noted - no carotid bruit. Cardiovascular: regular rate and rhythm, normal S1 and S2, no rub, murmurs, or gallop. Respiratory: normal breath sounds, no wheezes or crackles. No chest wall deformity or tenderness. Abdomen: soft. Pertinent negatives noted - not tender. Extremities: no deformity, no edema or tenderness, no joint swelling or clubbing. Neurological: normal cognition and motor skills. Positive for abnormal gait. PAIN ASSESSMENT: VITALS: BP 138/72 Pulse 61 Temp (Src) 97.1 (Temporal) Resp 14 Ht 6' 1 (1.85m) Wt 218 lb (98.9kg) SpO2 98% BMI 28.77 kg/(m^2). Diagnostic tests reviewed for today's visit: Lab Value Units Date High Low HB 12.7 g/dL 08/23/2024 17.0 13.0 HCT 38.4 % 08/23/2024 51.0 39.0 WBC 8.98 k/uL 08/23/2024 11.00 3.70 PLT 334 k/uL 08/23/2024 400 150 NA 138 mmol/L 08/23/2024 144 136 K 4.7 mmol/L 08/23/2024 5.1 3.7 GLUC 114 mg/dL 08/23/2024 99 74 BUN 15 mg/dL 08/23/2024 24 9 CREAT 1.12 mg/dL 08/23/2024 1.22 0.73 PTSEC No results within date range. INR No results within date range. APTT No results within date range. ALT 22 U/L 08/23/2024 54 10 AST 25 U/L 08/23/2024 40 14 TBILI 0.5 mg/dL 08/23/2024 1.3 0.2 TSH No results within date range. Lab Value Units Date High Low HCGQT No results within date range. UHCG No results within date range. HCG, BODY* No results within date range. Lab Value Units Date High Low ABORHD No results within date range. ABSCREEN No results within date range. Hemoglobin A1C (%) Date Value 08/23/2024 5.7 11/27/2023 5.7 04/25/2023 5.6 10/25/2022 5.9 04/25/2022 5.8 10/21/2019 5.8 04/09/2019 5.8 12/31/2018 5.9 02/20/2018 5.8 07/31/2017 5.8 No results found for this or any previous visit (from the past 8760 hours). No results found for this or any previous visit (from the past 67830 hours). Instructions Given to Patient: Instructions located in the after visit summary. Patient given verbal and written preop instructions and voices comprehension and compliance. SIGNATURE: Sindy Denise APRN.CNP PATIENT NAME: Rony Monzon DATE: November 29, 2024 TIME: 9:52 AM PAGER/CONTACT #: documented in this encounterAden[facility] Evaluation note* Diagnosis Onset Date Resolution Status Admit Date History of CAD (coronary art placido disease) acute November 29, 2024 7:51am Pre-operative cardiovascular examination acute November 29, 2024 7:51am Essential hypertension chronic Ju 2024 7:51am Pure hypercholesterolemia chronic November 29, 2024 7:51am Dysphagia acute December 02 9:53am Chronic cough chronic December 02, 2024 9:53am [facility] Work Phone: 1(190) 178-838107-11-2025 Evaluation note* Diagnosis Onset Date Resolution Status Admit Date History of CAD (coronary art placido disease) acute November 29, 2024 7:51am Pre-operative cardiovascular examination acute November 29, 2024 7:51am Essential hypertension chronic Ju ly 2024 7:51am Pure hypercholesterolemia chronic November 29, 2024 7:51am Chronic cough chronic December 02, 2024 9:53am Dysphagia chronic December 02 9:53am [facility] Work Phone: 1(128) 240-932307-11-2025 Evaluation note* Diagnosis Onset Date Resolution Status Admit Date History of CAD (coronary art placido disease) acute November 29, 2024 7:51am Pre-operative cardiovascular examination acute November 29, 2024 7:51am Essential hypertension chronic Ju ly 2024 7:51am Pure hypercholesterolemia chronic November 29, 2024 7:51am Chronic cough chronic December 02, 2024 9:53am Dysphagia chronic December 02 9:53am Chronic cough chronic December 1:41pm Dysphagia chronic January 10, 2 025 1:41pm [facility] Work Phone: 1([phone]) 539-435307-11-2025 Instructions* Patient Instructions* Sindy Denise, VIDA.FORM SETTER [employer] - 11/29/2024 9:51 AM EDT Images from the original note were not included. [facility] PATIENT PREOPERATIVE INSTRUCTIONS Sheldon Slater MD has scheduled you for your procedure at this surgery center: [facility]: [phone] -- [address] [address]. Please read below carefully for your personalized instructions. Dietary Restrictions: - No solid food after midnight. - You may have 12 ounces of clear liquids (water, clear juices such as apple juice or gatorade, carbonated beverages, clear tea, black coffee, jello) until 2 hours before scheduled arrival at facility. No red/purple coloring and no creamer/sugar Medications: Unless instructed differently below, stay on all of your medications until your surgery. If you start any new medications after today's visit, please contact your surgeon. Pre-Surgery Med Instructions Medication Instructions amoxicillin (AMOXIL) 500 mg capsule Do not take the day of surgery rosuvastatin (CRESTOR) 10 mg tablet If you normally take this medication in the morning, take the morning of surgery. propranolol (INDERAL) 20 mg tablet If you normally take this medication in the morning, take the morning of surgery. amLODIPine (NORVASC) 5 mg tablet If you normally take this medication in the morning, take the morning of surgery. clopidogrel (PLAVIX) 75 mg tablet Hold 5 days before surgery. Last dose 12/07/24. FLUoxetine (PROZAC) 40 mg capsule If you normally take this medication in the morning, take the morning of surgery. oxyCODONE IR (ROXICODONE) 5 mg immediate release tablet Continue as needed lisinopril (PRINIVIL) 10 mg tablet If you normally take this medication in the morning, take the morning of surgery. nitroglycerin sublingual (NITROSTAT) 0.4 mg SL tablet Continue as needed acetaminophen (TYLENOL EXTRA STRENGTH) 500 mg tablet Continue as needed multivitamin tablet Hold 7 days before surgery. Last dose 12/05/24. If you take any medications for erectile dysfunction-Cialis (Tadalafil), Levitra, Staxyn (Vardenafil) Viagra (Sildenenafil please do not take these for 48 hours before surgery. If you start any new medications after today's visit, please contact the surgeon's office. If you are currently using a [id number] injectable or oral medication for diabetes or weight loss such as Dulaglutide (Trulicity), Exenatide (Byetta, Bydureon), Liraglutide (Victoza, Saxenda), Semaglutide (Ozempic, Wegovy, Rybelsus), or Tirzepatide (Mounjaro), the medicine should be stopped at least 7 days before surgery. These medicines can cause food to remain in your stomach for a very longtime and increase the risks from surgery and anesthesia. Not stopping the medication for a long enough time may result in your surgery being rescheduled. Blood Thinning Medications: - Stop NSAIDS (Ibuprofen, Advil, Aleve, Motrin, Celebrex, Mobic, etc.) 7 days before surgery, as directed by your surgeon. - Stop Plavix 5 days before surgery or as directed by physician. - Do NOT stop aspirin or other anticoagulants without consulting with your human resource intern or prescribing physician. - Stop ALL herbal and dietary supplements 7 days before surgery. - You may take Tylenol (Acetaminophen) or any of your pain medications that do not contain aspirin or NSAIDS as needed. Important Reminders: - Candy, mints, and tobacco products are NOT permitted the morning of surgery. - Hearing aids, dentures and glasses may be worn the morning of surgery. - NO jewelry, body piercings, makeup, hairpins or contacts are to be worn the day of surgery. If you develop symptoms such as a fever, cold, or flu, or have other changes to your health within TWO DAYS of scheduled surgery or the morning of surgery, please contact the surgery center above. Personal Belongings: -Please have photo ID and insurance cards. -If you do not have a copy of advance directives on file with us, please bring a copy with you on the day of surgery. - Leave ALL valuables and money at home or with family members. - Please bring high-quality footwear, such as sneakers, to the hospital for ambulating post-surgery. For Outpatient Procedures: - YOU MUST HAVE A RESPONSIBLE GAS PLANT SPECIALIST TAKE YOU HOME. A TYPEWRITER ALIGNER OR NONPROFIT FUNDRAISER CANNOT BE MADE A RESPONSIBLE GAS PLANT SPECIALIST. - We recommend that a responsible person stays with you overnight to take care of you. - You cannot stay in a hotel alone after outpatient surgery. You will not be permitted to have yoursurgery, if you do not have someone to take care of you. Arrival Time for Surgery: - The Surgery Center or hospital where you are having surgery will call the afternoon before surgery (or Monday for Monday surgery) with a scheduled arrival time. - If you have not heard by 4 pm, please contact the surgery center above. Please be aware that emergency situations arise, which may delay or change your surgical time. If this happens, we will notify you as soon as possible and regret any inconvenience. If you already have an Advance Directive, please fax a copy to [phone] or email to for it to be added to your chart. If you do not have an Advance Directive, you can find the appropriate form and more information at [email or web address]. We recommend that youcomplete the Advance Directive form found on the website and bring it with you the day of your surgery. It can be witnessed and scanned into your chart that day. Sindy Denise APRN.THANG documented in this encounterAdena [facility]07-03-2025 Telephone encounter Note * Telephone Encounter - Argenis Jain RN - 11/21/2024 10:[address] Strange and Jessy BAIRD, Your patient, Rony Monzon is scheduled for HERNIORRHAPHY UMBILICAL REDUCIBLE under general anesthesia by Dr. Lc Slater on 12/13/2024. Currently he is only on Plavix for history of stroke-2021. Also he has CAD-stent (LCX) 08/2010. Please advise if Rony can hold Plavix 5 days prior to surgery per anesthesia guidelines? Also, should he take baby ASA while holding his Plavix ? Thank you Chidi Jain RN [facility]07-03-[facility] Miscellaneous Notes* Telephone Encounter - Argenis Jain RN - 11/21/2024 10:[address] Strange and Jessy BAIRD, Your patient, Rony Monzon is scheduled for HERNIORRHAPHY UMBILICAL REDUCIBLE under general anesthesia by Dr. Lc Slater on 12/13/2024. Currently he is only on Plavix for history of stroke-2021. Also he has CAD-stent (LCX) 08/2010. Please advise if Rony can hold Plavix 5 days prior to surgery per anesthesia guidelines? Also, should he take baby ASA while holding his Plavix ? Thank you Chidi Jain RN documented in this encounterAdena [facility]07-02-2025 Telephone encounter Note * Telephone Encounter - Sveta Arana LPN - 11/20/2024 10:23 AM EDT Patients calling in for ATB prior to dental procedure in a couple weeks. Sveta Arana LPN [facility]07-02-2025 Miscellaneous Notes* Telephone Encounter - Sveta Arana LPN - 11/20/2024 10:23 AM EDT Patients calling in for ATB prior to dental procedure in a couple weeks. Sveta Arana LPN documented in this encounterAdena [facility]07-02-2025 Telephone encounter Note * Telephone Encounter - Argenis Jain RN - 11/20/2024 9:48 AM EDT Sent a letter to human resource intern, Dr. Yevgeniy Arguello for preoperative Plavix instructions-awaiting reply Argenis Jain RN November 20, 2024 10:23 AM [facility]07-02-2025 Miscellaneous Notes* Telephone Encounter - Argenis Jain RN - 11/20/2024 9:48 AM EDT Sent a letter to human resource internDr. Yevgeniy for preoperative Plavix instructions-awaiting reply Argenis Jain RN November 20, 2024 10:23 AM documented in this encounterAdena Pike [facility] Center07-02-2025 NoteHNO ID: [id number] Author: ARGENIS JAIN RN Service: ? Author Type: Registered Nurse Type: Progress Notes Filed: 11/28/2024 07:15 Note Text: RN Pre Visit Questionnaire for upcoming [facility] appointment PROCEDURE : HERNIORRHAPHY UMBILICAL REDUCIBLE 3cm-10cm SURGEON : Dr. Lc Slater PROCEDURE DATE : 12/13/2024 [facility] APPT : 11/29/2024 Prepared for surgery: Anticoagulant recommendations received: Yes RN Pre Visit Questionnaire completed by Epic chart review and completed with patient and patient's spouse/significant other-Tere Patient is very hard of hearing. Do you see a human resource intern, hydroelectric powerplant supervisor, acid polymerization operator or other specialist within or outside of [facility]? Tack Puller Machine: Dr. Yevgeniy Arguello/ Mallorie Santos MARY: 12/15/2022 requested from office No reply per pt's -has not seen human resource intern since Dr. Dunn left practice around 2022. SPECIALISTS: NEUROLOGY:Dr. Strange/ Office Visit with Jessy Weldon PA-C (08/21/2024) PRIMARY CARE PHYSICIAN: Office Visit with George Vaughan MD (07/23/2024) Contracts Director: Dr. Salas Friend~MARY: Schedule appt., on 12/02 follow up per ED recommendations for dysphagia-pending. Are you on an anticoagulant PACC Anticoagulant: Yes Medication : Plavix (Clopidogrel) Stents: Yes, Coronary (LCX) 08/2010 Have you been provided instructions: Yes (per surgeon, Dr. Garcia instructed to hold 3 days prior to surgery.) Letter or Telephone encounter sent : Yes Anticoagulation recommendation: found in TE on 11/21/2024/ Provider: Dr. Strange/ Jessy BAIRD Anticoagulation instructions : Recommends can hold Plavix 5 days prior to surgery, with increases stroke risk AND can take baby ASA while holding Plavix. Also would restart Plavix CRISTI post procedure/surgery Reply~Telephone with Argenis Jain RN (11/21/2024) Implanted Devices: NONE Most recent EKG-External Document(s) - EKG (05/23/2023) Most recent ECHO : EXTERNAL CARDIOLOGY (07/13/2021 2:19 PM) Most recent STRESS TEST~EXTERNAL CARDIOLOGY (04/18/2023 3:01 PM) Most recent lab: HEMOGLOBIN A1C (08/23/2024 7:37 AM) HTN CAD-stent (LCX) 08/2010 Impaired fasting glucose-diet Chronic back pain Hx stroke-2021 Any new changes in your symptoms since you last saw your specialist? Yes, went to ED [facility] on 11/13/2024 for dysphagia and referred to stiff straw hat washer for intermittent difficulty swallowing. Are you a Pre Diabetic/Diabetic/Weight loss/CHF medications No Dialysis No Skilled Facility Resident: no Any recent hospitalizations within [facility] or outside facilities in the past 3 months No Please have an up-to-date list of medications in preparation for your PACC visit. SIGNATURE: Argenis Jain RN PATIENT NAME: Rony Monzon DATE: November 20, 2024 TIME: 9:24 AM [phone] History of Present illness Narrative* Argenis Jain RN - 11/20/2024 9:24 AM EDT RN Pre Visit Questionnaire for upcoming [facility] appointment PROCEDURE : HERNIORRHAPHY UMBILICAL REDUCIBLE 3cm-10cm SURGEON : Dr. Lc Slater PROCEDURE DATE : 12/13/2024 PACC APPT : 11/29/2024 Prepared for surgery: Anticoagulant recommendations received: Yes RN Pre Visit Questionnaire completed by [facility] chart review and completed with patient and patient's spouse/significant other-Tere Patient is very hard of hearing. Do you see a human resource intern, hydroelectric powerplant supervisor, acid polymerization operator or other specialist within or outside of [facility]? Tack Puller Machine: Dr. Yevgeniy Arguello/ Mallorie Santos MARY: 12/15/2022 requested from office No reply per pt's -has not seen human resource intern since Dr. Dunn left practice around 2022. SPECIALISTS: NEUROLOGY:Dr. Strange/ Office Visit with Jessy Weldon PA-C (08/21/2024) PRIMARY CARE PHYSICIAN: Office Visit with George Vaughan MD (07/23/2024) Contracts Director: Dr. Salas Friend~MARY: Schedule appt., on 12/02 follow up per ED recommendations for dysphagia-pending. Are you on an anticoagulant PACC Anticoagulant: Yes Medication : Plavix (Clopidogrel) Stents: Yes, Coronary (LCX) 08/2010 Have you been provided instructions: Yes (per surgeon, Dr. Garcia instructed to hold 3 days priorto surgery.) Letter or Telephone encounter sent : Yes Anticoagulation recommendation: found in TE on 11/21/2024/ Provider: Dr. Post/ Jessy BAIRD Anticoagulation instructions : Recommends can hold Plavix 5 days prior to surgery, with increases stroke risk and & if able take baby ASA while holding Plavix, Reply~Telephone with Argenis Jain RN (11/21/2024) Implanted Devices: NONE Most recent EKG-External Document(s) - EKG (05/23/2023) Most recent ECHO : EXTERNAL CARDIOLOGY (07/13/2021 2:19 PM) Most recent STRESS TEST~EXTERNAL CARDIOLOGY (04/18/2023 3:01 PM) Most recent lab: HEMOGLOBIN A1C (08/23/2024 7:37 AM) HTN CAD-stent (LCX) 08/2010 Impaired fasting glucose-diet Chronic back pain Hx stroke-2021 Any new changes in your symptoms since you last saw your specialist? Yes, went to ED [facility] on 11/13/2024 for dysphagia and referred to stiff straw hat washer for intermittent difficulty swallowing. Are you a Pre Diabetic/Diabetic/Weight loss/CHF medications No Dialysis No Skilled Facility Resident: no Any recent hospitalizations within [facility] or outside facilities in the past 3 months No Please have an up-to-date list of medications in preparation for your PACC visit. SIGNATURE: Argenis Jain RN PATIENT NAME: Rony Monzon DATE: November 20, 2024 TIME: 9:24 AM PAGER/CONTACT PHONE: documented in this encounterA[facility]25 NoteHNO ID: [id number] Author: SHELDON SLATER MD Service: ? Author Type: Physician Type: Progress Notes Filed: 11/19/2024 10:48 Note Text: HISTORY AND PHYSICAL Rony Monzon 1940 REFERRING PHYSICIAN: George Vaughan MD CHIEF COMPLAINT: Abdominal Mass ([facility] ED f/u - umbilical hernia) HPI: Rony is a 84 year old male with a complaint of a bulge and discomfort in his umbilical region. The patient notes discomfort in this area with lifting. The symptoms have increased, over the past few weeks. The patient notes no symptoms of bowel obstruction and denies nausea or vomiting. The patient was seen by the emergency room physician who felt the patient has a hernia. Rony was referred for evaluation and treatment. The patient is being seen by me today at the request of Dr. George Vaughan MD for my opinion and advice regarding Umbilical hernia without obstruction and without gangrene (primary encounter diagnosis). PAST MEDICAL HISTORY Diagnosis Date Adjustment disorder with depressed mood Anemia Benign neoplasm of colon Constipation Coronary artery disease Diabetes (HCC) Essential hypertension, benign Gallbladder polyp needs repeat ultrasound in 06/06 H/O hiatal hernia Impaired fasting glucose Internal hemorrhoids without mention of complication Other and unspecified hyperlipidemia Personal history of colonic polyps Umbilical hernia PAST SURGICAL HISTORY Procedure Laterality Date APPENDECTOMY ARTHRP ACETBLR/PROX FEM PROSTC AGRFT/ALGRFT Right 08/08/2018 Dr. Charly Suh CARDIAC CATH N/A 02/02/2015 Completed at [facility] COLONOSCOPY FLX DX W/COLLJ SPEC WHEN PFRMD 07/11/12 Colonoscopy COLONOSCOPY FLX DX W/COLLJ SPEC WHEN PFRMD 02/24/2017 Colonoscopy COLONOSCOPY W/BIOPSY SINGLE/MULTIPLE 03/29/06 ESOPHAGOGASTRODUODENOSCOPY TRANSORAL DIAGNOSTIC 02/24/2017 EGD SHARP W/O FACETEC FORAMOT/DSC / VRT SGM CRV Dr Cole PAST SURGICAL HISTORY OF Right 2007 knee surgery RPR [place]ICA VAGINALIS HYDROCELE BOTTLE TYPE STENT PLACEMENT 08/2010 [facility] VASECTOMY UNI/BI SPX W/POSTOP SEMEN EXAMS Current Outpatient Medications Medication Sig rosuvastatin (CRESTOR) 10 mg tablet Take 1 tablet by mouth daily at bedtime. propranolol (INDERAL) 20 mg tablet Take 1 tablet by mouth two times a day. amLODIPine (NORVASC) 5 mg tablet Take 1 tablet by mouth two times a day. clopidogrel (PLAVIX) 75 mg tablet Take 1 tablet by mouth once daily. FLUoxetine (PROZAC) 40 mg capsule Take 1 capsule by mouth once daily. amoxicillin (AMOXIL) 500 mg capsule 4 capsules 1 hours prior to dental procedure. oxyCODONE IR (ROXICODONE) 5 mg immediate release tablet EVERY 6 HOURS NEEDED lisinopril (PRINIVIL) 10 mg tablet Take 1 tablet by mouth twice daily. Dr. Kramer nitroglycerin sublingual (NITROSTAT) 0.4 mg SL tablet Dissolve 1 tablet under the tongue every 5 minutes as needed for chest pain. acetaminophen (TYLENOL EXTRA STRENGTH) 500 mg tablet Take 1 tablet by mouth every 6 hours as needed for pain. multivitamin tablet Take 1 tablet by mouth once daily. No current facility-administered medications for this visit. ALLERGIES: Lyrica [Pregabalin], Neurontin [Gabapentin], and Norflex [Orphenadrine Citrate] PERSONAL HISTORY: Social History Tobacco Use Smoking status: Former Current packs/day: 0.00 Types: Cigarettes, Pipe Start date: 1962 Quit date: 1981 Years since quittin.5 Passive exposure: Past Smokeless tobacco: Former Quit date: 05/22/1981 Tobacco comments: Quit in 1981 Vaping Use Vaping status: Never Used Substance Use Topics Alcohol use: No Drug use: No FAMILY HISTORY: FAMILY HISTORY Problem Relation Age of Onset Heart Brother valvular heart disease Heart Brother valvular heart disease Heart Brother valvular heart diease Hypertension Sister COPD Father Stroke Father Heart Mother REVIEW OF SYMPTOMS: The review of systems data was entered by the nurse and reviewed by me There are no exam notes on file for this visit. PHYSICAL EXAMINATION: General: The patient is 84 year old male, well nourished, well hydrated in no acute distress. The patient is oriented to time, place, and person. VITALS: Blood pressure 136/64, pulse 81, temperature 36.2 ?C (97.1 ?F), resp. rate 19, height 185.4 cm (6' 1), weight 98.3 kg (216 lb 12.8 oz), SpO2 97%. Body mass index is 28.6 kg/m?. HEENT: Normal cephalic, ataumatic, pupils are equally round, sclera are anicteric, mucous membranes are moist, oropharynx is clear. Neck has no masses, asymmetry or lymphadenopathy. Thyroid is unremarkable. Respiratory: Clear to auscultation and percussion. Normal respiratory excursion and pattern. Cardiac: Examination is regular rate and rhythm. Abdominal exam: Soft, nontender, with no palpable masses. No hepatosplenomegaly. A moderate reducible umbilical hernia, no right or left inguinal hernias are not (more content not included)...[facility]07-01-2025 History of Present illness Narrative* Sheldon Slater MD - 11/19/2024 10:33 AM EDT HISTORY AND PHYSICAL Rony Monzon 1940 REFERRING PHYSICIAN: George Vaughan MD CHIEF COMPLAINT: Abdominal Mass ([facility] ED f/u - umbilical hernia) HPI: Rony is a 84 year old male with a complaint of a bulge and discomfort in his umbilical region. The patient notes discomfort in this area with lifting. The symptoms have increased, over the pastfew weeks. The patient notes no symptoms of bowel obstruction and denies nausea or vomiting. The patient was seen by the emergency room physician who felt the patient has a hernia. Rony was referred for evaluation and treatment. The patient is being seen by me today at the request of Dr. George Vaughan MD for my opinion and advice regarding Umbilical hernia without obstruction and without gangrene (primary encounter diagnosis). PAST MEDICAL HISTORY Diagnosis Date Adjustment disorder with depressed mood Anemia Benign neoplasm of colon Constipation Coronary artery disease Diabetes (HCC) Essential hypertension, benign Gallbladder polyp needs repeat ultrasound in 06/06 H/O hiatal hernia Impaired fasting glucose Internal hemorrhoids without mention of complication Other and unspecified hyperlipidemia Personal history of colonic polyps Umbilical hernia PAST SURGICAL HISTORY Procedure Laterality Date APPENDECTOMY ARTHRP ACETBLR/PROX FEM PROSTC AGRFT/ALGRFT Right 08/08/2018 Dr. Charly Suh CARDIAC CATH N/A 02/02/2015 Completed at [facility] COLONOSCOPY FLX DX W/COLLJ SPEC WHEN PFRMD 07/11/12 Colonoscopy COLONOSCOPY FLX DX W/COLLJ SPEC WHEN PFRMD 02/24/2017 Colonoscopy COLONOSCOPY W/BIOPSY SINGLE/MULTIPLE 03/29/06 ESOPHAGOGASTRODUODENOSCOPY TRANSORAL DIAGNOSTIC 02/24/2017 EGD [place]ARP W/O FACETEC FORAMOT/DSC /[address] Cole PAST SURGICAL HISTORY OF Right 2007 knee surgery RPR [place]ICA VAGINALIS HYDROCELE BOTTLE TYPE STENT PLACEMENT 08/2010 [facility] VASECTOMY UNI/BI SPX W/POSTOP SEMEN EXAMS Current Outpatient Medications Medication Sig rosuvastatin (CRESTOR) 10 mg tablet Take 1 tablet by mouth daily at bedtime. propranolol (INDERAL) 20 mg tablet Take 1 tablet by mouth two times a day. amLODIPine (NORVASC) 5 mg tablet Take 1 tablet by mouth two times a day. clopidogrel (PLAVIX) 75 mg tablet Take 1 tablet by mouth once daily. FLUoxetine (PROZAC) 40 mg capsule Take 1 capsule by mouth once daily. amoxicillin (AMOXIL) 500 mg capsule 4 capsules 1 hours prior to dental procedure. oxyCODONE IR (ROXICODONE) 5 mg immediate release tablet EVERY 6 HOURS NEEDED lisinopril (PRINIVIL) 10 mg tablet Take 1 tablet by mouth twice daily. Dr. Kramer nitroglycerin sublingual (NITROSTAT) 0.4 mg SL tablet Dissolve 1 tablet under the tongue every 5 minutes as needed for chest pain. acetaminophen (TYLENOL EXTRA STRENGTH) 500 mg tablet Take 1 tablet by mouth every 6 hours as neededfor pain. multivitamin tablet Take 1 tablet by mouth once daily. No current facility-administered medications for this visit. ALLERGIES: Lyrica [Pregabalin], Neurontin [Gabapentin], and Norflex [Orphenadrine Citrate] PERSONAL HISTORY: Social History Tobacco Use Smoking status: Former Current packs/day: 0.00 Types: Cigarettes, Pipe Start date: 1962 Quit date: 1981 Years since quittin.5 Passive exposure: Past Smokeless tobacco: Former Quit date: 05/22/1981 Tobacco comments: Quit in 1981 Vaping Use Vaping status: Never Used Substance Use Topics Alcohol use: No Drug use: No FAMILY HISTORY: FAMILY HISTORY Problem Relation Age of Onset Heart Brother valvular heart disease Heart Brother valvular heart disease Heart Brother valvular heart diease Hypertension Sister COPD Father Stroke Father Heart Mother REVIEW OF SYMPTOMS: The review of systems data was entered by the nurse and reviewed by me There are no exam notes on file for this visit. PHYSICAL EXAMINATION: General: The patient is 84 year old male, well nourished, well hydrated in no acute distress. The patient is oriented to time, place, and person. VITALS: Blood pressure 136/64, pulse 81, temperature 36.2 C (97.1 F), resp. rate 19, height 185.4 cm (6' 1), weight 98.3 kg (216 lb 12.8 oz), SpO2 97%. Body mass index is 28.6 kg/m . HEENT: Normal cephalic, ataumatic, pupils are equally round, sclera are anicteric, mucous membranesare moist, oropharynx is clear. Neck has no masses, asymmetry or lymphadenopathy. Thyroid is unremarkable. Respiratory: Clear to auscultation and percussion. Normal respiratory excursion and pattern. Cardiac: Examination is regular rate and rhythm. Abdominal exam: Soft, nontender, with no palpable masses. No hepatosplenomegaly. A moderate reducible umbilical hernia, no right or left inguinal hernias are noted Rectal exam: exam deferred Extremities: no clubbing, cyanosis or edema. No adenopathy. Other: LABORATORY VALUES: As Noted RADIOLOGIC STUDIES: As Noted Assessment IMPRESSION: umbilical hernia PLAN: My plan is to perform a umbilical hernia repair with mesh. The planned surgical procedure wasdiscussed extensively with the patient. The risks, benefits, anticipated outcomes and possible complications were mentioned. Rony daveands that all hernia repair surgery has a chance of recurrenceand/or chronic post operative pain. My staff has also explained the procedure in understandable terms and the patient was given the option to take printed material concerning the planned procedure. The patient had the opportunity to ask questions concerning the planned procedure. The patient freelyconsents to the planned procedure. My findings have been communicated to Dr. George Vaughan MD via shared medical record. This note will be forwarded to Dr. George Vaughan MD. Diagnoses: (K42.9) Umbilical hernia without obstruction and without gangrene (primary encounter diagnosis) Anticipated CPT Code: Initial anterior abdominal hernia repair: 73598 - 3-10 cm reducible Anticipated Anesthetic: General Patient weight: Blood pressure 136/64, pulse 81, temperature 36.2 C (97.1 F), resp. rate 19, yhfems408.4 cm (6' 1), weight 98.3 kg (216 lb 12.8 oz), SpO2 97%. BMI: Body mass index is 28.6 kg/m . Planned antibiotic: Ancef 2gm IVPB generation manager to OR SCDs needed - Yes Return to Clinic: The patient is instructed to follow-up with me 1 week post operatively. Sheldon Slater III, MD documented in this encounterAdena [facility]06-25-[facility] Radiology Diagnostic study note [facility] [address] [place] [address] [id number] Abdomen/Pelvis W IV Cont ONLY MR#: [id number] Acct: [id number] Name: RONY MONZON Rep #: [id number] : 1940 M 84 From: Fina Johnston MD PCP: Dr. George Vaughan MD Status: RE G ER Study:Abdomen/Pelvis W IV Cont ONLY Date of E xam: 11/13/24 Exam# [id number] Ordering Dr: Petr Soto DO PROCEDURE: ABDOMEN/PELVIS W IV CONT ONLY 11/13/2024 REASON FOR EXAM: EPIGASTRIC FOREIGN BODY SENSATION TECHNIQUE: ABDOMEN/PELVIS W IV CONT ONLY Coronal and Sagittal reconstruction series were provided. CONTRAST: Isovue 370 VOLUME: 100 mL One or more dose reduction techniques were used (e.g., Automated exposure control, adjustment of the mA and/or kV according to patient size, use of iterative reconstruction technique. RADIATION DOSE SUMMARY: DLP: 1200 mGycm COMPARISON: CT abdomen pelvis 03/13/2020. FINDINGS: Lung bases: Bibasilar atelectasis. Coronary artery calcifications. Mixed plaque of the visualized thoracic aorta. Liver: The liver is normal in size with scattered hypodensities, likely cysts. The major portal veins are patent. No biliary ductal dilation. Gallbladder: Punctate layering stones within the gallbladder. No gallbladder wall thickening or pericholecystic fluid. Spleen: Normal in size. Pancreas: Mildly atrophic. Adrenals: No adrenal mass. Kidneys: Bilateral renal cysts and additional hypodensities. No hydronephrosis or nephrolithiasis. Bladder: Distended and unremarkable. Reproductive Organs: PriorTURP. Bowel: The bowel loops are nondilated. No ascites or pneumoperitoneum. No inflammatory mass in the expected region of the appendix. Lymph nodes: No suspicious lymph node enlargement. Vasculature: Severe mixed plaque of the aortoiliac vessels. Bones: Prior total right hip arthroplasty. Thoracolumbar spondylosis with chronic height loss of the visualized vertebral bodies. Prior L3-[address]/Abdomen/Pelvis W IV Cont ONLY IMPRESSION: No acute abdominopelvic finding. Reading Location: [id number] CC: Dr. Petr Perry DO; Dr. George Vaughan MD ~ Research Soil Scientist: Signed [facility]06-25-2025 Radiology Diagnostic study note [facility] Services [address] [place], [place] [id number] Chest PA and Lateral MR#: [id number] Acct: [id number] Name: RONY MONZON Rep #: [id number] : 1940 M 84 From: Estephania Hinton MD PCP: Dr. George Vaughan MD Status: RE G ER Study:Chest PA and Lateral Date of Exam: 11/13/24 Exam# [id number] Ordering Dr: Petr Soto DO PROCEDURE: CHEST PA AND LATERAL 11/13/2024 REASON FOR EXAM: CHEST PAIN TECHNIQUE: CHEST PA AND LATERAL COMPARISON: 07/28/2024 FINDINGS: Bibasilar subsegmental atelectasis. Mild pulmonary vascular congestion. No focal consolidation. No pleural effusion or pneumothorax. Cardiac silhouette is unchanged. No acute fractures. RAD/Chest PA and Lateral IMPRESSION: Mild pulmonary vascular congestion. No focal consolidation. Stable mild cardiomegaly. Reading Location: [facility] CC: Dr. Petr Perry DO; Dr. George Vaughan MD ~ Research Soil Scientist: Signed [facility]05-09-2025 Telephone encounter Note* Telephone Encounter - Landon Strange Jr., MD - 09/27/2024 4:05 PM EDT Procedure clearance requested by [facility]. Note that I have only seen patient once - please see note from 01/26/24 - and for multiple symptoms/conditions. For symptoms of falls and lightheadedness, he was referred to cardiology for opinion. Regarding request to hold Plavix in relation to history of stroke: To the extent it is necessary for patient to have the upcoming procedure... the risk of procedure rests on the proceduralist and determination of necessity of procedure, the timing of any adjustment in medications, holding of antiplatelet or other medications for the procedure given the patients history of TIA and stroke and then resuming these medications after the procedure. Generally patients with TIA/stroke history have moderate risk of cerebrovascular complications which is better understood with invasive surgical procedures. 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 Note that the above risks -- holding Plavix for procedure -- were not directly discussed with the patient or patient's guardian at the time of his last visit on 01/26/24. Landon Strange MD [facility] Work Phone: [phone]) 756-512705-09-2025 Miscellaneous Notes* Telephone Encounter - Landon Strange Jr., MD - 09/27/2024 4:05 PM EDT Procedure clearance requested by [facility]. Note that I have only seen patient once - please see note from 01/26/24 - and for multiple symptoms/conditions. For symptoms of falls and lightheadedness, he was referred to cardiology for opinion. Regarding request to hold Plavix in relation to history of stroke: To the extent it is necessary for patient to have the upcoming procedure... the risk of procedure rests on the proceduralist and determination of necessity of procedure, the timing of any adjustment in medications, holding of antiplatelet or other medications for the procedure given the patients history of TIA and stroke and then resuming these medications after the procedure. Generally patients with TIA/stroke history have moderate risk of cerebrovascular complications which is better understood with invasive surgical procedures. 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 Note that the above risks -- holding Plavix for procedure -- were not directly discussed with the patient or patient's guardian at the time of his last visit on 01/26/24. Landon Strange MD documented in this encounterAdena [facility] Center04-30-2025 Telephone encounter Note * Telephone Encounter - Zander Chavez APRN.CNP - 09/18/2024 12:46 PM EDT The following approved medication requests have been transmitted electronically. Requested Prescriptions Pending Prescriptions Disp Refills rosuvastatin (CRESTOR) 10 mg tablet 90 tablet 3 Sig: Take 1 tablet by mouth daily at bedtime. Zander Chavez APRN.CNP [facility]04-30-2025 Miscellaneous Notes* Telephone Encounter - Zander Chavez APRN.CNP - 09/18/2024 12:46 PM EDT The following approved medication requests have been transmitted electronically. Requested Prescriptions Pending Prescriptions Disp Refills rosuvastatin (CRESTOR) 10 mg tablet 90 tablet 3 Sig: Take 1 tablet by mouth daily at bedtime. Zander Chavez APRN.CNP * Telephone Encounter - Lois Flowers - 09/18/2024 11:04 AM EDT Patient has been identified by name and date of : Yes Patient phones for refill(s): Requested Prescriptions Pending Prescriptions Disp Refills rosuvastatin (CRESTOR) 10 mg tablet 90 tablet 3 Sig: Take 1 tablet by mouth daily at bedtime. Date of last office visit in primary care: 07/23/2024 Date of next office visit in primary care: 02/04/2025 Please advise. Thank you. Lois Flowers. documented in this encounterAdena [facility] Center04-30-2025 Telephone encounter Note * Telephone Encounter - Lois Flowers - 09/18/2024 11:04 AM EDT Patient has been identified by name and date of : Yes Patient phones for refill(s): Requested Prescriptions Pending Prescriptions Disp Refills rosuvastatin (CRESTOR) 10 mg tablet 90 tablet 3 Sig: Take 1 tablet by mouth daily at bedtime. Date of last office visit in primary care: 07/23/2024 Date of next office visit in primary care: 02/04/2025 Please advise. Thank you. Lois Flowers. [facility]04-10-2025 Telephone encounter Note* Telephone Encounter - Ana Tong MA - 08/29/2024 3:56 PM EDT Pt notified of results via Aprilagehart. Ana Tong Ma [facility]04-10-2025 Miscellaneous Notes* Telephone Encounter - Ana Tong MA - 08/29/2024 3:56 PM EDT Pt notified of results via mychart. Ana Tong Ma * Telephone Encounter - George Vaughan MD - 08/29/2024 3:49 PM EDT Please notify patient that his labs are all OK. Stay on the same medications and follow up in 6 months as planned George Vaughan MD documented in this encounterAdena [facility]ike [facility] Center04-10-2025 Telephone encounter Note * Telephone Encounter - George Vaughan MD - 08/29/2024 3:49 PM EDT Please notify patient that his labs are all OK. Stay on the same medications and follow up in 6 months as planned George Vaughan MD [facility]04-04-2025 Telephone encounter Note* Telephone Encounter - Sveta Gomes LPN - 08/23/2024 1:33 PM EDT TC to who voiced understanding. Is agreeable to being seen in the autonomic clinic, please assist in scheduling. Sveta Gomes LPN [facility]04-04-2025 Miscellaneous Notes* Telephone Encounter - Sveta Gomes LPN - 08/23/2024 1:33 PM EDT TC to who voiced understanding. Is agreeable to being seen in the autonomic clinic, please assist in scheduling. Sveta Gomes LPN * Telephone Encounter - Jessy Weldon PA-C - 08/23/2024 10:51 AM EDT Received recommendation from cardiology, they recommended taking both doses of amlodipine at nighttime, but do not recommend florinef at this time. Encouraged increasing water intake. Additionally, spoke with Dr. Strange who suggested referral to the autonomic clinic if patient amenable as they specialize in this type of blood pressure regulation. Referral sent in patient interested. documented in this encounterAdena [facility]ike [facility] Center04-04-2025 Telephone encounter Note * Telephone Encounter - Jessy Weldon PA-C - 08/23/2024 10:51 AM EDT Received recommendation from cardiology, they recommended taking both doses of amlodipine at nighttime, but do not recommend florinef at this time. Encouraged increasing water intake. Additionally, spoke with Dr. Strange who suggested referral to the autonomic clinic if patient amenable as they specialize in this type of blood pressure regulation. Referral sent in patient interested. [facility]04-02-2025 Telephone encounter Note* Telephone Encounter - José Luis Castro LPN - 08/21/2024 1:37 PM EDT Called and spoke to staff nurse, nurse will talk to Dr. Arguello and call back. José Luis Castro LPN August 21, 2024 1:37 PM [facility]04-02-2025 Miscellaneous Notes* Telephone Encounter - José Luis Castro LPN - 08/21/2024 1:37 PM EDT Called and spoke to staff nurse, nurse will talk to Dr. Arguello and call back. José Luis Castro LPN August 21, 2024 1:37 PM * Telephone Encounter - Jessy Weldon PA-C - 08/21/2024 1:17 PM EDT Are we able to call Dr. Arguello's office and update Dr. Arguello. Patient was unable to tolerate decrease in amlodopine to 5mg once a day and had elevated BP. Still having daily lightheadedness, suggestions on starting florinef? Jessy Weldon PA-C [facility] Tele[facility] encounter Note * Telephone Encounter - Jessy Weldon PA-C - 08/21/2024 1:17 PM EDT Are we able to call Dr. Arguello's office and update Dr. Arguello. Patient was unable to tolerate decrease in amlodopine to 5mg once a day and had elevated BP. Still having daily lightheadedness, suggestions on starting florinef? Jessy Weldon PA-C [facility]04-02-2025 Instructions* Patient Instructions* Jessy Weldon PA-C - 08/21/2024 12:51 PM EDT Increase water intake to 60 ounces a day Continue with exercise and physical therapy Follow up with Dr. Strange in 3-4 months documented in [facility]25 NoteHNO ID: [id number] Author: JOSÉ LUIS CASTRO LPN Service: ? Author Type: LICENSED NURSE Type: Progress Notes Filed: 08/21/2024 13:18 Note Text:[facility]04-02-[facility] History of Present illness Narrative* José Luis Castro LPN - 08/21/2024 12:26 PM EDT * Jessy Weldon PA-C - 08/21/2024 12:23 PM EDT Images from the original note were not included. [facility] Name: Rony Monzon Age: [age] year old Gender: male Primary Care Provider: George Vaughan MD Assessment/Plan: 08/21/2024 - General Neurology, Jessy Weldon PA-C ASSESSMENT ASSESSMENT/PLAN: 1. Malaise and fatigue - ICD9: 780.79, ICD10: R53.81, R53.83 (primary diagnosis) 2. Lightheaded - ICD9: 780.4, ICD10: R42 3. Recurrent falls - ICD9: V15.88, ICD10: R29.6 4. Orthostatic hypotension - ICD9: 458.0, ICD10: I95.1 Since last appointment, no significant change with lightheadedness and dizziness. Did reach out to Dr. Arguello's office for changes in blood pressure medications and instructed patient to decrease his amlodipine to 5 mg once daily from twice daily. Patient notes he tried this but it caused him to be too hypertensive so he had to go back to twice daily. 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 Drinking about 40 to 50 ounces of water a day, did try compression sockswith no improvement. Is not very physically active but notes he just recently started physical therapy for his back and balance. No falls, syncope since last appointment. Notes he can stand about 10 minutes before he becomes extremely symptomatic and has to sit back down. As he was unable to tolerate medication change per the recommendations of Dr. Arguello, will reach out to his office again about possibly starting Florinef or other suggestions. Encouraged conservative therapy in the meantime. 5. Weakness of both lower extremities - ICD9: 729.89, ICD10: R29.898 Stable, no change, undergoing physical therapy at this time. 6. History of stroke - ICD9: V12.54, ICD10: Z86.73 No new symptoms that would warrant additional workup at this time. Currently on Plavix and statin medication. Patient and agreeable to treatment plan of care at this time, questions were answered. Patientfollow-up with Dr. Strange in 3 to 4 months. Jessy Weldon PA-C Encounter Diagnosis ICD-10-CM 1. Malaise and fatigue R53.81 R53.83 2. Lightheaded R42 3. Recurrent falls R29.6 4. Orthostatic hypotension I95.1 Return in about 3 months (around 11/20/2024), or Dr. Strange. Chart, labs,and relevant images reviewed. Chief Complaint:Patient presents with: Established Patient: Malaise, tremors, freq falls, lightheaded, SAUCEDO Chart Review: 04/30/24 ASSESSMENT/PLAN: 1. Malaise and fatigue - ICD9: 780.79, ICD10: R53.81, R53.83 (primary diagnosis) Patient reporting some worsening fatigue, generalized weakness. No falls. Patient with full strength on exam. Has basic blood work ordered, will add additional B12 level, folate and vitamin D. Also notes that he is not very physically active, primarily sits down throughout the day, likely deconditio cierra. Discussed at length the importance of physical exercise, deferring PT evaluation at this timebut would like to increase physical exercise at home. 2. Lightheaded - ICD9: 780.4, ICD10: R42 3. Recurrent falls - ICD9: V15.88, ICD10: R29.6 4. Orthostatic hypotension - ICD9: 458.0, ICD10: I95.1 5. Weakness of both lower extremities - ICD9: 729.89, ICD10: R29.898 Symptoms likely multifactoral including spinal stenosis, orthostatic hypotension. Patient Without any falls since last appointment, using a rollator with good success. Still having daily episodes of lightheadedness and occasional episodes of presyncope, but no episodes of syncope. Symptoms improved significantly if he sits back down. Having some shortness of breath with this as well. Originally, when seen by Dr. Strange last January there was thought of decreasing blood pressure medications dueto concerns of being overmedicated causing low blood pressures. However, Dr. Arguello does not want adjust medication at this time due to hypertension. Did discuss possibly starting Florinef, will reachout to Dr. Strange about confirming this medication before starting. Only drinking about 4 glasses ofwater a day, discussed importance of increasing hydration as well. Patient and agree and understand. No new symptoms would warrant additional up at this time. Encouraged conservative therapy as well. Patient to follow-up in 3 months or sooner should any symptoms change or worsen. Patient and agreeable to treatment plan of care at this time. Jessy Weldon PA-C HPI: Last seen for orthostatic HOTN, fatigue and falls on 04/30/24, using rollater and helping. Only four glasses of water, still having LH. Worsening fatigue, ordered labs but did not get. Deferring PT. Dr. Arguello wanted patient to change amlodopine to 5mg and follow up prior to starting florinef. Patient presents for follow-up with his . Notes that he tried to decrease amlodipine to once a day but his blood pressures went up too much and so he had to go back to twice a day. No significantchange in dizziness with this adjustment. Has not been able to see Dr. Arguello, will not be able to see him until October. Notes he still dizzy every day, no episodes of falls or syncope since last appointment. Notes he is unable to stand past 10 minutes as he gets incredibly lightheaded. No other new symptoms or concerns today. Drinking about 4 to 5 glasses of water every day, 12 ounces each. Drinks about a soda maybe a cup of tea every day as well. Does not feel a difference necessarily when he dri nks more but does have good days and bad days. Tried compression socks for a good month without anysignificant benefit. Notes he is recently starting physical therapy for his back and balance but nanettey had 1 appointment for this. Otherwise has difficulty with activity due to the dizziness. 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 Spinal Stenosis, Lumbar Gait Instability Coronary Artery Disease Involving [place] Coronary Artery of [place] Heart Without Angina Pectoris Anemia Nontoxic Multinodular Goiter Cervicalgia Lumbar Radiculopathy Cervical Spondylosis Primary Osteoarthritis of Both Hips Ddd (Degenerative Disc Disease), Lumbar Spinal Stenosis, Lumbar Region, With Neurogenic Claudication Spastic Pelvic Floor Syndrome Tremor Vasovagal Syncope Rehan On Cpap 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 propranolol (INDERAL) 20 mg tablet Take 1 tablet by mouth two times a day. amLODIPine (NORVASC) 5 mg tablet Take 1 tablet by mouth two times a day. clopidogrel (PLAVIX) 75 mg tablet Take 1 tablet by mouth once daily. FLUoxetine (PROZAC) 40 mg capsule Take 1 capsule by mouth once daily. amoxicillin (AMOXIL) 500 mg capsule 4 capsules 1 hours prior to dental procedure. oxyCODONE IR (ROXICODONE) 5 mg immediate release tablet EVERY 6 HOURS NEEDED lisinopril (PRINIVIL) 10 mg tablet Take 1 tablet by mouth twice daily. Dr. Kramer nitroglycerin sublingual (NITROSTAT) 0.4 mg SL tablet Dissolve 1 tablet under the tongue every 5 minutes as needed for chest pain. acetaminophen (TYLENOL EXTRA STRENGTH) 500 mg tablet Take 1 tablet by mouth every 6 hours as neededfor pain. multivitamin tablet Take 1 tablet by mouth once daily. ALLERGIES Allergen Reactions Lyrica [Pregabalin] Swelling B/L hand swelling Norflex [Orphenadri* GI Upset Vicodin [Hydrocodon* nightmares Neurontin [Gabapent* Swelling Feels that he does not have a true allergy to this medication. States he had swelling, not rash. FAMILY HISTORY Problem Relation Age of Onset Heart Brother valvular heart disease Heart Brother valvular heart disease Heart Brother valvular heart diease Hypertension Sister COPD Father Stroke Father Heart Mother PAST SURGICAL HISTORY Procedure Laterality Date APPENDECTOMY ARTHRP ACETBLR/PROX FEM PROSTC AGRFT/ALGRFT Right 08/08/2018 Dr. Charly Suh CARDIAC CATH N/A 02/02/2015 Completed at [facility] COLONOSCOPY FLX DX W/COLLJ SPEC WHEN PFRMD 07/11/12 Colonoscopy COLONOSCOPY FLX DX W/COLLJ SPEC WHEN PFRMD 02/24/2017 Colonoscopy COLONOSCOPY W/BIOPSY SINGLE/MULTIPLE 03/29/06 ESOPHAGOGASTRODUODENOSCOPY TRANSORAL DIAGNOSTIC 02/24/2017 EGD [place] W/O FACETEC FORAMOT/DSC 05/[address] Cole PAST SURGICAL HISTORY OF Right 2007 knee surgery RPR [place] VAGINALIS HYDROCELE BOTTLE TYPE STENT PLACEMENT 08/2010 [facility] VASECTOMY UNI/BI SPX W/POSTOP SEMEN EXAMS Social Hx: @Alcohol Use: Not on file Tobacco Use: Medium Risk (08/21/2024) Patient History Smoking Tobacco Use: Former Smokeless Tobacco Use: Former Passive Exposure: Not on file 08/21/24 1227 BP: 151/85 Pulse: 62 Neurologic Exam Cognitive and Language: Alert and answered questions appropriately. Language was fluent. Cranial Nerves: Extraocular movements were full with no diplopia or nystagmus. Facial strength was symmetric. Motor: Moves all 4 extremities Sensory: No significant evidence of neglect. Coordination: Ambulates with a rollator, slowed and shuffled Labs: Lab Results Component Value Date WBC 8.90 11/27/2023 HCT 37.6 (L) 11/27/2023 MCV 95.2 11/27/2023 PLT 367 11/27/2023 Lab Results Component Value Date HBA1C 5.7 11/27/2023 HBA1C 5.6 04/25/2023 HBA1C 5.9 10/25/2022 HBA1C 5.8 10/21/2019 HBA1C 5.8 04/09/2019 HBA1C 5.9 12/31/2018 Cholesterol, Total Date Value Ref Range Status 11/27/2023 165 <200 mg/dL Final Comment: <200 mg/dL, Desirable 200-239 mg/dL, Borderline high >239 mg/dL, High HDL Cholesterol Date Value Ref Range Status 11/27/2023 47 >39 mg/dL Final Comment: 40-59 mg/dL, Acceptable >59 mg/dL, High: Negative risk factor for coronary heart disease <40 mg/dL, Low: Positive risk factor for coronary heart disease LDL Cholesterol Date Value Ref Range Status 11/27/2023 96 <100 mg/dL Final Comment: <100 mg/dL, Optimal 100-129 mg/dL, Near optimal/above optimal 130-159 mg/dL, Borderline high 160-189 mg/dL, High >189 mg/dL, Very high Secondary prevention optimal LDL Cholesterol levels are recommended to be < 70 mg/dL Triglyceride Date Value Ref Range Status 11/27/2023 110 <150 mg/dL Final Comment: <150 mg/dL, Normal 150-199 mg/dL, Borderline high 200-499 mg/dL, High >499 mg/dL, Very high Results for orders placed or performed in visit on 11/27/23 LIPID PANEL BASIC Result Value Ref Range Cholesterol, Total 165 <200 mg/dL Triglyceride 110 <150 mg/dL HDL Cholesterol 47 >39 mg/dL Non HDL Cholesterol 118 <130 mg/dL Fasting Time 12 hrs VLDL Cholesterol 22 <30 mg/dL TC:HDL Ratio 3.51 <5.10 LDL Cholesterol 96 <100 mg/dL LDL:HDL Ratio 2.04 <2.54 COMP METABOLIC PANEL Result Value Ref Range Protein, Total 7.0 6.3 - 8.0 g/dL Albumin 3.9 3.9 - 4.9 g/dL Calcium, Total 9.3 8.5 - 10.2 mg/dL Bilirubin, Total 0.4 0.2 - 1.3 mg/dL Alkaline Phosphatase 106 38 - 113 U/L AST 26 14 - 40 U/L ALT 24 10 - 54 U/L Glucose 104 (H) 74 - 99 mg/dL BUN 14 9 - 24 mg/dL Creatinine 1.08 0.73 - 1.22 mg/dL Sodium 137 136 - 144 mmol/L Potassium 4.4 3.7 - 5.1 mmol/L Chloride 102 98 - 107 mmol/L CO2 26 22 - 30 mmol/L Anion Gap 9 8 - 15 mmol/L Estimated Glomerular Filtration Rate 69 >=60 mL/min/1.73m CBC + DIFF Result Value Ref Range WBC 8.90 3.70 - 11.00 k/uL RBC 3.95 (L) 4.20 - 6.00 m/uL Hemoglobin 12.2 (L) 13.0 - 17.0 g/dL Hematocrit 37.6 (L) 39.0 - 51.0 % MCV 95.2 80.0 - 100.0 fL MCH 30.9 26.0 - 34.0 pg MCHC 32.4 30.5 - 36.0 g/dL RDW-CV 13.2 11.5 - 15.0 % Platelet Count 367 150 - 400 k/uL MPV 10.7 9.0 - 12.7 fL Neutrophils % 72.1 % Abs Neut 6.42 1.45 - 7.50 k/uL Lymphocytes % 14.5 % Abs Lymph 1.29 1.00 - 4.00 k/uL Monocytes % 8.8 % Abs [place] 0.78 <0.87 k/uL Eosinophils % 3.3 % Abs Eosin 0.29 <0.46 k/uL Basophils % 1.0 % Abs Baso 0.09 <0.11 k/uL Immature Granulocytes % 0.3 % Abs Immature Gran 0.03 <0.10 k/uL NRBC 0.0 /100 WBC Absolute nRBC <0.01 <0.01 k/uL Diff Type Auto HGB A1C Result Value Ref Range Hemoglobin A1C 5.7 (H) 4.3 - 5.6 % Estimated Average Glucose 117 mg/dL Radiology: MRI Head/Brain - Last 2 Impressions MRI BRAIN WO IVCON Exam End: 02/28/2022 3:43 PM (Final result) Impression: IMPRESSION: No acute intracranial process. ... MRI BRAIN WO IVCON Exam End: 12/01/2021 8:42 AM (Edited Result - FINAL) Addendum: * * *Final Report* * * DATE OF EXAM: Dec 01 2021 8:42AM [facility] 0294 - MRI BRAIN WO IVCON / PROCEDURE REASON: multiple diagnoses ... and MRI Spine - Last 2 Impressions MRI CERVICAL SPINE WO IVCON Exam End: 12/01/2021 8:42 AM (Final result) Impression: IMPRESSION: 1. 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 STABLE POST SURGICAL CHANGES FROM LAMINECTOMIES 3. NO HIGH-GRADE CENTRAL STENOSIS 4. FORAMINAL STENOSIS REMAINS GREATEST AT SEVERE RIGHT C5-6 Anatomic Variant: None. Assume 7 cervical vertebrae with counting from the craniocervical junction. Research Soil Scientist: KENTRELL Transcribe Date/Time: Dec 01 2021 9:30A Dictated by : CHIKI AMAYA MD This examination was interpreted and the report reviewed and electronically signed by: CHIKI AMAYA MD on Dec 01 2021 9:36AM EST MRI CERVICAL SPINE WO IVCON ([place]) Collected: 04/26/2016 4:09 PM (Final result) Impression: IMPRESSION: MRI brain demonstrates no acute intracranial finding. Paranasal sinus disease as mentioned. Stable appearance of the cervical spine. Central disc protrusion at C5-6 resulting in mild-moderate canal stenosis, and focal myomalacia in the cervical cord at C5-6 level are unchanged. Moderate-severe right and moderate left neural foraminal narrowing at C5-6, stable. Left thyroid T2 hyperintense nodule measuring up to 2.0 cm is indeterminate. Follow-up thyroid ultrasound is recommended. Incidentally Detected Thyroid Nodule(s): Patient 35 years or older, nodule 1.5cm or larger and no suspicious imaging findings: Recommend dedicated thyroid US follow-up Mike et al. J Am Viviana Radiol 12:143-150; 2015 Research Soil Scientist: KENTRELL Transcribe Date/Time: Apr 26 2016 5:19P Dictated by : RAD CHAUHAN MD This examination was interpreted and the report reviewed and electronically signed by: RAD CHAUHAN MD on Apr 26 2016 5:32PM EST This note was dictated using [employer] speech recognition software and may contain some errors that were a result of the program not accurately transcribing what was dictated, despite efforts to make corrections. Note that unless urgent, test and MRI results will be discussed at next follow- up visit. PROMIS (Patient-Reported Outcomes Measurement Information System) is a set of person-centered measures that evaluates and monitors physical, social, and emotional health. It can be used with the general population and with individuals living with chronic conditions. PROMIS 10: PHYSICAL AND MENTAL HEALTH: 12/20/2021 PHQ-9 PHQ-2 Score 1 PHQ-9 Score 4 Medical Decision Making: Medical Decision Making Level: 1 - N/A I spent a total of 40 minutes on the date of the service which included preparing to see the patient, [id number] patient care, completing clinical documentation, obtaining and/or reviewing separately obtained history, performing a medically appropriate examination, counseling and educating the pat ient/family/caregiver, and ordering medications, tests, or procedures. documented in this [facility]04-[facility] NoteHNO ID: [id number] Author: JESSY WELDON PA-C Service: ? Author Type: Physician Systems Support Specialist Type: Progress Notes Filed: 08/21/2024 13:18 Note Text: [facility] Name: oRny Monzon Age: [age] year old Gender: male Primary Care Provider: George Vaughan MD Assessment/Plan: 08/21/2024 - General Neurology, Jessy Weldon PA-C ASSESSMENT ASSESSMENT/PLAN: 1. Malaise and fatigue - ICD9: 780.79, ICD10: R53.81, R53.83 (primary diagnosis) 2. Lightheaded - ICD9: 780.4, ICD10: R42 3. Recurrent falls - ICD9: V15.88, ICD10: R29.6 4. Orthostatic hypotension - ICD9: 458.0, ICD10: I95.1 Since last appointment, no significant change with lightheadedness and dizziness. Did reach out to Dr. Arguello's office for changes in blood pressure medications and instructed patient to decrease his amlodipine to 5 mg once daily from twice daily. Patient notes he tried this but it caused him to be too hypertensive so he had to go back to twice daily. 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 Drinking about 40 to 50 ounces of water a day, did try compression socks with no improvement. Is not very physically active but notes he just recently started physical therapy for his back and balance. No falls, syncope since last appointment. Notes he can stand about 10 minutes before he becomes extremely symptomatic and has to sit back down. As he was unable to tolerate medication change per the recommendations of Dr. Arguello, will reach out to his office again about possibly starting Florinef or other suggestions. Encouraged conservative therapy in the meantime. 5. Weakness of both lower extremities - ICD9: 729.89, ICD10: R29.898 Stable, no change, undergoing physical therapy at this time. 6. History of stroke - ICD9: V12.54, ICD10: Z86.73 No new symptoms that would warrant additional workup at this time. Currently on Plavix and statin medication. Patient and agreeable to treatment plan of care at this time, questions were answered. Patient follow-up with Dr. Strange in 3 to 4 months. Jessy Weldon PA-C Encounter Diagnosis ICD-10-CM 1. Malaise and fatigue R53.81 R53.83 2. Lightheaded R42 3. Recurrent falls R29.6 4. Orthostatic hypotension I95.1 Return in about 3 months (around 11/20/2024), or Dr. Strange. Chart, labs,and relevant images reviewed. Chief Complaint:Patient presents with: Established Patient: Malaise, tremors, freq falls, lightheaded, SAUCEDO Chart Review: 04/30/24 ASSESSMENT/PLAN: 1. Malaise and fatigue - ICD9: 780.79, ICD10: R53.81, R53.83 (primary diagnosis) Patient reporting some worsening fatigue, generalized weakness. No falls. Patient with full strength on exam. Has basic blood work ordered, will add additional B12 level, folate and vitamin D. Also notes that he is not very physically active, primarily sits down throughout the day, likely deconditioning. Discussed at length the importance of physical exercise, deferring PT evaluation at this time but would like to increase physical exercise at home. 2. Lightheaded - ICD9: 780.4, ICD10: R42 3. Recurrent falls - ICD9: V15.88, ICD10: R29.6 4. Orthostatic hypotension - ICD9: 458.0, ICD10: I95.1 5. Weakness of both lower extremities - ICD9: 729.89, ICD10: R29.898 Symptoms likely multifactoral including spinal stenosis, orthostatic hypotension. Patient Without any falls since last appointment, using a rollator with good success. Still having daily episodes of lightheadedness and occasional episodes of presyncope, but no episodes of syncope. Symptoms improved significantly if he sits back down. Having some shortness of breath with this as well. Originally, when seen by Dr. Strange last January there was thought of decreasing blood pressure medications due to concerns of being overmedicated causing low blood pressures. However, Dr. Arguello does not want adjust medication at this time due to hypertension. Did discuss possibly starting Florinef, will reach out to Dr. Strange about confirming this medication before starting. Only drinking about 4 glasses of water a day, discussed importance of increasing hydration as well. Patient and agree and understand. No new symptoms would warrant additional up at this time. Encouraged conservative therapy as well. Patient to follow-up in 3 months or sooner should any symptoms change or worsen. Patient and agreeable to treatment plan of care at this time. Jessy Weldon PA-C HPI: Last seen for orthostatic HOTN, fatigue and falls on 04/30/24, using rollater and helping. Only four glasses of water, still having LH. Worsening fatigue, ordered labs but did not get. Deferring PT. Dr. Arguello wanted patient to change amlodopine to 5mg and follow up prior to starting florinef. Patient presents for follow-up with his . Notes that he tried to decrease amlodipine to once a day but his blood pressures went up too muc (more content not included)...[facility]03-10-2025 Discharge summary [facility] Medical Records Department [address] [place] [id number] Discharge Summary 07/29/24 1413 MR#: [id number] Acct: [id number] Name: RONY MONZON Rep #:[id number] : 1940 84 From: Nawaf Leblanc DO PCP: Dr. George Vaughan MD Status:[facility]AT[facility] MORRIS [id number] Prov[facility] Date of Admission: 07/28/24 Primary Care Physician: Dr. George Vaughan MD Reason For Visit: CHEST PAIN Diagnosis Discharge Diagnosis (1) Chest pain: Status: Acute Code(s): R07.9 - Chest pain, unspecified Plan: stress test negative. likely 2/2 costochondritis from recent URI. No additional work up. DC home. DW patient's spouse at bedside. Medications at Discharge Home Medications fluoxetine 40 mg capsule (Prozac) 40 mg PO DAILY 07/04/18 acetaminophen 500 mg tablet (Tylenol Extra Strength) 500 mg PO Q6H PRN Pain 06/17/20 amlodipine 5 mg tablet 5 mg PO BID 03/17/21 multivitamin 1 tab PO DAILY 02/08/22 clopidogrel 75 mg tablet 75 mg PO DAILY 05/05/22 nitroglycerin 0.4 mg sublingual tablet 0.4 mg sublingual Q5-15M PRN chest pain #25 tabs 05/26/22 rosuvastatin 10 mg tablet 10 mg PO QHS #90 tabs 11/24/22 oxycodone 5 mg tablet 5 mg PO Q6H PRN pain 04/16/23 propranolol 20 mg tablet 30 mg PO BID 04/16/23 lisinopril 10 mg tablet 10 mg PO BID #180 TABLETS 04/11/24 Hospital Course Operations None Procedures Stress test Weight / BMI Weight Weight: 97.522 kg Body Mass Index (BMI) 28.3 ABG / Lab / Microbiology Data 07/29/24 05:04 07/29/24 05:04 Laboratory: Laboratory Results - last 24 hr 07/28/24 15:47: Troponin T Hi Sens 4Hr 23 H 07/29/24 05:04: WBC 9.4, RBC 3.84 L, Hgb 12.0 L, Hct 35.8 L, MCV 93.2, MCH 31.3,MCHC 33.5, RDW Std Deviation 44.1 H, RDW Coeff of Guido 12.9, Plt Count 319, MPV 9.9, Immature Gran % (Auto) 0.300, Neut % (Auto) 69.4, Lymph % (Auto) 14.7 L, [place] % (Auto) 9.9, Eos % (Auto) 4.7, Baso % (Auto) 1.0, Absolute Neuts (auto) 6.5, Absolute Lymphs (auto) 1.38, Nucleated RBC % 0, Sodium 137, Potassium 4.1, Chloride 103, Carbon Dioxide 24.4, Anion Gap 10, BUN 12, Creatinine 0.98, Estim Creat Clear Calc 70.24, Est GFR (MDRD) Non-Af 77, BUN/Creatinine Ratio 12.4, Glucose 100 H, Calcium 9.1 Microbiology: Microbiology 07/28/24 10:37 Mucosa - Nose SARS-CoV-2, Influenza & RSV (PCR) - Final D/C Instructions Discharge Diet: Low fat / Low cholesterol DC O2, CPAP, BIPAP Needs Home O2 Discharge instructions: No Meaningful Use Info Meaningful Use Meaningful Use Diagnoses (Choose all that apply): None applicable Ischemic Stroke Statin Dosing Therapy Reference: STATIN DOSE THERAPY REFERENCE: * Patients > 75 years receive moderate or high dose statin therapy. * Patients 75 years or YOUNGER should receive HIGH intensity statin dose unless contraindicated. You will be required to document reason for non-treatment if statin daily dose does not meet guidelines. HIGH DOSE STATIN THERAPY DAILY Atorvastatin > than or = to 40 mg Rosuvastatin > than or = to 20 mg Amlodipine + Atorvastatin > than or = to 2.5/40 mg Ezetimibe + Simvastatin 10/80 mg Simvastatin 80mg Discharge Plan Admission Admit Date/Time: 07/28/24 12:10 Primary Reason for Your Visit: chest pain. Attending Provider: Nawaf Leblanc Primary Care Provider: George Vaughan Consulting Providers: Nini Brown Instructions Additional Instructions / Restrictions: Your stress test was negative (normal). Your chest pain may have been due to your chest wall (pulled muscle, slight displaced rib). No additional testing is needed at this time. Discharge Orders/Prescriptions Prescriptions: Continued fluoxetine [Prozac] 40 mg capsule 40 mg PO DAILY Patient Comments: not taking while taking antibiotic linezolid acetaminophen [Tylenol Extra Strength] 500 mg tablet 500 mg PO Q6H PRN (Reason: Pain) nitroglycerin 0.4 mg tablet, sublingual 0.4 mg SUBLINGUAL Q5-15M PRN (Reason: chest pain) Qty: 25 1RF Rx Instructions: do not exceed 3 doses per episode multivitamin Tablet 1 tab PO DAILY oxycodone 5 mg tablet 5 mg PO Q6H PRN (Reason: pain) Patient Comments: TAKE 1 TO 2 TABLET BY MOUTH EVERY SIX HOURS NEEDED FOR PAIN propranolol 20 mg tablet 30 mg PO BID amlodipine 5 mg tablet 5 mg PO BID clopidogrel 75 mg tablet 75 mg PO DAILY rosuvastatin 10 mg tablet 10 mg PO QHS Qty: 90 3RF lisinopril 10 mg tablet 10 mg PO BID Qty: 180 3RF Referrals / Follow Up: George Vaughan MD [Primary Care Provider] - Within 1 Month Disposition Disposition (needs filled in before D/C Order can be placed): Home, Self Care Charges/Coding Visit Charges Inpatient E&M: 57895 Disch Hosp 07/29/24 1417 Cosigner Signature (if applicable): CC: Dr. Nawaf Leblanc DO; Dr. George Vaughan MD~ Signed [facility]03-10-2025 [facility] Medical Records Department [address] [place] [address] Discharge Summary 07/29/24 1413 MR#: [id number] Acct: [id number] Name: RONY MONZON Rep #: [id number] : 1940 84 From: Nawaf Leblanc DO PCP: Dr. George Vaughan MD Status:ADM ARTURO Location: [place] [address] Providers Date of Admission: 07/28/24 Primary Care Physician: Dr. George Vaughan MD Reason For Visit: CHEST PAIN Diagnosis Discharge Diagnosis (1) Chest pain: Status: Acute Code(s): R07.9 - Chest pain, unspecified Plan: stress test negative. likely 2/2 costochondritis from recent URI. No additional work up. DC home. DW patient's spouse at bedside. Medications at Discharge Home Medications fluoxetine 40 mg capsule (Prozac) 40 mg PO DAILY 07/04/18 acetaminophen 500 mg tablet (Tylenol Extra Strength) 500 mg PO Q6H PRN Pain 06/17/20 amlodipine 5 mg tablet 5 mg PO BID 03/17/21 multivitamin 1 tab PO DAILY 02/08/22 clopidogrel 75 mg tablet 75 mg PO DAILY 05/05/22 nitroglycerin 0.4 mg sublingual tablet 0.4 mg sublingual Q5-15M PRN chest pain #25 tabs 05/26/22 rosuvastatin 10 mg tablet 10 mg PO QHS #90 tabs 11/24/22 oxycodone 5 mg tablet 5 mg PO Q6H PRN pain 04/16/23 propranolol 20 mg tablet 30 mg PO BID 04/16/23 lisinopril 10 mg tablet 10 mg PO BID #180 TABLETS 04/11/24 Hospital Course Operations None Procedures Stress test Weight / BMI Weight Weight: 97.522 kg Body Mass Index (BMI) 28.3 ABG / Lab / Microbiology Data 07/29/24 05:04 07/29/24 05:04 Laboratory: Laboratory Results - last 24 hr 07/28/24 15:47: Troponin T Hi Sens 4Hr 23 H 07/29/24 05:04: WBC 9.4, RBC 3.84 L, Hgb 12.0 L, Hct 35.8 L, MCV 93.2, MCH 31.3, MCHC 33.5, RDW Std Deviation 44.1 H, RDW Coeff of Guido 12.9, Plt Count 319, MPV 9.9, Immature Gran % (Auto) 0.300, Neut % (Auto) 69.4, Lymph % (Auto) 14.7 L, [place] % (Auto) 9.9, Eos % (Auto) 4.7, Baso % (Auto) 1.0, Absolute Neuts (auto) 6.5, Absolute Lymphs (auto) 1.38, Nucleated RBC % 0, Sodium 137, Potassium 4.1, Chloride 103, Carbon Dioxide 24.4, Anion Gap 10, BUN 12, Creatinine 0.98, Estim Creat Clear Calc 70.24, Est GFR (MDRD) Non-Af 77, BUN/Creatinine Ratio 12.4, Glucose 100 H, Calcium 9.1 Microbiology: Microbiology 07/28/24 10:37 Mucosa - Nose SARS-CoV-2, Influenza RSV (PCR) - Final D/C Instructions Discharge Diet: Low fat / Low cholesterol DC O2, CPAP, BIPAP Needs Home O2 Discharge instructions: No Meaningful Use Info Meaningful Use Meaningful Use Diagnoses (Choose all that apply): None applicable Ischemic Stroke Statin Dosing Therapy Reference: STATIN DOSE THERAPY REFERENCE: * Patients > 75 years receive moderate or high dose statin therapy. * Patients 75 years or YOUNGER should receive HIGH intensity statin dose unless contraindicated. You will be required to document reason for non-treatment if statin daily dose does not meet guidelines. HIGH DOSE STATIN THERAPY DAILY Atorvastatin > than or = to 40 mg Rosuvastatin > than or = to 20 mg Amlodipine + Atorvastatin > than or = to 2.5/40 mg Ezetimibe + Simvastatin 10/80 mg Simvastatin 80mg Discharge Plan Admission Admit Date/Time: 07/28/24 12:10 Primary Reason for Your Visit: chest pain. Attending Provider: Nawaf Leblanc Primary Care Provider: George Vaughan Consulting Providers: Nini Brown Instructions Additional Instructions / Restrictions: Your stress test was negative (normal). Your chest pain may have been due to your chest wall (pulled muscle, slight displaced rib). No additional testing is needed at this time. Discharge Orders/Prescriptions Prescriptions: Continued fluoxetine [Prozac] 40 mg capsule 40 mg PO DAILY Patient Comments: not taking while taking antibiotic linezolid acetaminophen [Tylenol Extra Strength] 500 mg tablet 500 mg PO Q6H PRN (Reason: Pain) nitroglycerin 0.4 mg tablet, sublingual 0.4 mg SUBLINGUAL Q5-15M PRN (Reason: chest pain) Qty: 25 1RF Rx Instructions: do not exceed 3 doses per episode multivitamin Tablet 1 tab PO DAILY oxycodone 5 mg tablet 5 mg PO Q6H PRN (Reason: pain) Patient Comments: TAKE 1 TO 2 TABLET BY MOUTH EVERY SIX HOURS NEEDED FOR PAIN propranolol 20 mg tablet 30 mg PO BID amlodipine 5 mg tablet 5 mg PO BID clopidogrel 75 mg tablet 75 mg PO DAILY rosuvastatin 10 mg tablet 10 mg PO QHS Qty: 90 3RF lisinopril 10 mg tablet 10 mg PO BID Qty: 180 3RF Referrals / Follow Up: George Vaughan MD [Primary Care Provider] - Within 1 Month Disposition Disposition (needs filled in before D/C Order can be placed): Home, Self Care Charges/Coding Visit Charges Inpatient E M: 16227 Disch Hosp 07/29/24 1417 Cosigner Signature (if applicable): CC: Dr. Nawaf Leblanc DO; Dr. George Vaughan MD [facility]03-10-2025 Progress note [facility] Medical Records Department [address] [place] [address] Progress Note - Hospitalist 07/29/24 09 MR#: [id number] Acct: [id number] Name: RONY MONZON Rep #:[id number] : 1940 84 From: Nawaf Leblanc DO PCP: Dr. George Vaughan MD Status:AD M ARTURO Location: [place] [address] Reason for Visit Reason for Visit: Diagnoses Chest pain, unspecified (07/28/24) Subjective Subjective No further chest pain. Has chronic back pain (thoracic and lumbar--no change). Objective Data Objective Data Vital Signs: Vital Signs Temp Pulse Resp BP Pulse Ox O2 Del Method 36.8 C 60 16 157/73 H 97 Room Air 07/28/24 21:00 07/28/24 21:00 07/28/24 21:00 07/28/24 21:00 07/28/24 21:00 07/29/24 07:49 Oxygen Delivery Method Room Air Weight: 97.522 kg Body Mass Index (BMI) 28.3 Intake & Output: Intake and Output for Last 24 Hours 07/27/24 07/29/24 07/29/24 23:59 00:59 23:59 Intake Total 120 / 120 Balance 120 / 120 Lab / Micro Data 07/29/24 05:04 07/29/24 05:04 Labs: Laboratory Results - last 24 hr 07/28/24 10:40: WBC 9.6, RBC 3.98 L, Hgb 12.6 L, Hct 37.5 L, MCV 94.2 H, MCH 31.7, MCHC 33.6, RDW Std Deviation 45.2 H, RDW Coeff of Guido 13.1, Plt Count 353,MPV 9.6, Immature Gran % (Auto) 0.200, Neut % (Auto) 76.6 H, Lymph % (Auto) 12.4L, [place] % (Auto) 6.0, Eos % (Auto) 3.9, Baso % (Auto) 0.9, Absolute Neuts (auto)7.4, Absolute Lymphs (auto) 1.19, Nucleated RBC % 0, Sodium 136, Potassium 3.9, Chloride 100, Carbon Dioxide 24.3, Anion Gap 11, BUN 13, Creatinine 1.12, Estim Creat Clear Calc 61.84, Est GFR (MDRD) Non-Af 65, BUN/Creatinine Ratio 11.3, Glucose 181 H, Calcium 9.3, Troponin T High Sens 23 H 07/28/24 12:38: Troponin T Hi Sens 2 Hr 24 H 07/28/24 15:47: Troponin T Hi Sens 4Hr 23 H 07/29/24 05:04: WBC 9.4, RBC 3.84 L, Hgb 12.0 L, Hct 35.8 L, MCV 93.2, MCH 31.3,MCHC 33.5, RDW Std Deviation 44.1 H, RDW Coeff of Guido 12.9, Plt Count 319, MPV 9.9, Immature Gran % (Auto) 0.300, Neut % (Auto) 69.4, Lymph % (Auto) 14.7 L, [place] % (Auto) 9.9, Eos % (Auto) 4.7, Baso % (Auto) 1.0, Absolute Neuts (auto) 6.5, Absolute Lymphs (auto) 1.38, Nucleated RBC % 0, Sodium 137, Potassium 4.1, Chloride 103, Carbon Dioxide 24.4, Anion Gap 10, BUN 12, Creatinine 0.98, Estim Creat Clear Calc 70.24, Est GFR (MDRD) Non-Af 77, BUN/Creatinine Ratio 12.4, Glucose 100 H, Calcium 9.1 Micro: Microbiology 07/28/24 10:37 Mucosa - Nose SARS-CoV-2, Influenza & RSV (PCR) - Final Radiography Diagnostic Testing: Radiology Impression Chest X-Ray 07/28/24 10:25 IMPRESSION: NEGATIVE CHEST. Reading Location: [facility] Rhythm Strip Rhythm Strip: Sinus bradycardia Rate: 57 Ectopy: None Physical Exam Const alert and no apparent distress Constitutional Narrative: no reproducible anterior chest pain. HEENT head/scalp atraumatic and moist oral mucous membranes Assessment & Plan Assessment/Plan (1) Chest pain: PLAN: stress test negative. likely 2/2 costochondritis from recent URI. No additional work up. DC home. DW patient's spouse at bedside. 07/29/24 1413 Cosigner Signature (if applicable): CC: ~ Signed [facility]03-10-2025 Progress note Author Nawaf Leblanc [facility] Note Date/Time July 29, 2024 2:1 3pm [facility] Medical Records Department [address] [place] [address] Progress Note - Hospitalist 07/29/24 0902 MR#: [id number] Acct: [id number] Name: RONY MONZON Rep #:[id number] : 1940 84 From: Nawaf Leblanc DO PCP: Dr. George Vaughan MD Status:AD M [facility] Location: [place] [address] Reason for Visit Reason for Visit: Diagnoses Chest pain, unspecified (07/28/24) Subjective Subjective No further chest pain. Has chronic back pain (thoracic and lumbar--no change). Objective Data Objective Data Vital Signs: Vital Signs Temp Pulse Resp BP Pulse Ox O2 Del Method 36.8 C 60 16 157/73 H 97 Room Air 07/28/24 21:00 07/28/24 21:00 07/28/24 21:00 07/28/24 21:00 07/28/24 21:00 07/29/24 07:49 Oxygen Delivery Method Room Air Weight: 97.522 kg Body Mass Index (BMI) 28.3 Intake & Output: Intake and Output for Last 24 Hours 07/27/24 07/29/24 07/29/24 23:59 00:59 23:59 Intake Total 120 / 120 Balance 120 / 120 Lab / Micro Data 07/29/24 05:04 07/29/24 05:04 Labs: Laboratory Results - last 24 hr 07/28/24 10:40: WBC 9.6, RBC 3.98 L, Hgb 12.6 L, Hct 37.5 L, MCV 94.2 H, MCH 31.7, MCHC 33.6, RDW Std Deviation 45.2 H, RDW Coeff of Guido 13.1, Plt Count 353,MPV 9.6, Immature Gran % (Auto) 0.200, Neut % (Auto) 76.6 H, Lymph % (Auto) 12.4L, [place] % (Auto) 6.0, Eos % (Auto) 3.9, Baso % (Auto) 0.9, Absolute Neuts (auto)7.4, Absolute Lymphs (auto) 1.19, Nucleated RBC % 0, Sodium 136, Potassium 3.9, Chloride 100, Carbon Dioxide 24.3, Anion Gap 11, BUN 13, Creatinine 1.12, Estim Creat Clear Calc 61.84, Est GFR (MDRD) Non-Af 65, BUN/Creatinine Ratio 11.3, Glucose 181 H, Calcium 9.3, Troponin T High Sens 23 H 07/28/24 12:38: Troponin T Hi Sens 2 Hr 24 H 07/28/24 15:47: Troponin T Hi Sens 4Hr 23 H 07/29/24 05:04: WBC 9.4, RBC 3.84 L, Hgb 12.0 L, Hct 35.8 L, MCV 93.2, MCH 31.3,MCHC 33.5, RDW Std Deviation 44.1 H, RDW Coeff of Guido 12.9, Plt Count 319, MPV 9.9, Immature Gran % (Auto) 0.300, Neut % (Auto) 69.4, Lymph % (Auto) 14.7 L, [place] % (Auto) 9.9, Eos % (Auto) 4.7, Baso % (Auto) 1.0, Absolute Neuts (auto) 6.5, Absolute Lymphs (auto) 1.38, Nucleated RBC % 0, Sodium 137, Potassium 4.1, Chloride 103, Carbon Dioxide 24.4, Anion Gap 10, BUN 12, Creatinine 0.98, Estim Creat Clear Calc 70.24, Est GFR (MDRD) Non-Af 77, BUN/Creatinine Ratio 12.4, Glucose 100 H, Calcium 9.1 Micro: Microbiology 07/28/24 10:37 Mucosa - Nose SARS-CoV-2, Influenza & RSV (PCR) - Final Radiography Diagnostic Testing: Radiology Impression Chest X-Ray 07/28/24 10:25 IMPRESSION: NEGATIVE CHEST. Reading Location: [facility] Rhythm Strip Rhythm Strip: Sinus bradycardia Rate: 57 Ectopy: None Physical Exam Const alert and no apparent distress Constitutional Narrative: no reproducible anterior chest pain. HEENT head/scalp atraumatic and moist oral mucous membranes Assessment & Plan Assessment/Plan (1) Chest pain: PLAN: stress test negative. likely 2/2 costochondritis from recent URI. No additional work up. DC home. DW patient's spouse at bedside. 07/29/24 1413 <Electronically signed by Nawaf Leblanc DO> Cosigner Signature (if applicable): CC: ~ Signed [facility] Work Phone: [phone]) 680-529203-09-2025 History and physical note Author Nini Brown [facility] Note Date/Time July 28, 2024 4:35 pm [facility] Medical Records Department [address] [place] [address] H&P Exam - Hospitalist 07/28/24 1627 MR#: [id number] Acct: [id number] Name: NARONY SALAZAR Rep #:[id number] : 1940 84 From: Nini Brown MD PCP: Dr. George Vaughan MD Status:AD M ARTURO Location: [place] [id number] HPI - General General Date of Admission: 07/28/24 Date of Service: 07/28/24 Chief Complaint: chest pain HPI Narrative RONY MONZON, is a 84 M with a past medical history as outlined which includes history of CAD s/p stent x 1 was admitted through the ED on 07/28/2024 with a complaint of chest pain. He said that he and his had recently had upper respiratory symptoms with some cough and congestion and mild shortness of breath. However these had resolved but he subsequently started having this chest pain. He described the pain as pressure-like and said it radiated to his back. However per his he had chronic back pain and patient said the back pain was similar to his chronic back pain. He had no aggravating or relieving factors and said even though he usually had nitro on him he had not taken any nitro for the chest pain. He denied any fever or chills, lightheadedness or dizziness, palpitations, nausea vomiting or any other symptoms. Review of symptoms otherwise negative. Vitals in the ED were blood pressure of 156/57, pulse rate of 51, respiratory rate of 16 and temp of 97.6 Fahrenheit. He was saturating at 100% on room air. CBC showed hemoglobin of 12.6 with WBC of 9.6 and platelets of 353. Chemistry showed sodium of 136 with potassium of 3.9 and bicarb of 24.3. Anion gap was 11. Creatinine was 1.12. Initial troponin was 23 and delta troponin was only 24. Chest x-ray showed no acute cardiopulmonary pathology and EKG showed no acute ST changes. He has been admitted to be managed for chest pain to rule outACS. [facility] Medical History COVID-19 (~01/18/22) Sepsis due to urinary tract infection History of transesophageal echocardiography (VIOLETTE) Wears hearing aid Wears glasses Depression Anxiety Walker as ambulation aid Arthritis Indwelling urethral catheter present Low iron Easy bruising History of hiatal hernia Former smoker Chest pain History of tilt table evaluation Cardiology follow-up encounter History of echocardiogram History of stress test Enterococcus UTI H/O appendicitis Presence of stent in coronary artery (~09/08/10) Pure hypercholesterolemia Essential hypertension PTSD (post-traumatic stress disorder) Pulmonary hypertension Restless legs syndrome (RLS) REHAN (obstructive sleep apnea) Syncope and collapse Dizziness and giddiness Fatigue Shortness of breath Dyspnea Precordial chest pain 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 Atherosclerotic heart disease of [place] coronary artery without angina pectoris 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 Neck pain on left side Benign prostatic hypertrophy Coronary artery disease Home Medications ?Medication ?Instructions ?Recorded ?Last Taken ?Type fluoxetine 40 mg capsule (Prozac) 40 mg PO DAILY 07/0407/13/21 History acetaminophen 500 mg tablet 500 mg PO Q6H PRN Pain 07/13/21 History (Tylenol Extra Strength) amlodipine 5 mg tablet 5 mg PO BID 03/17/21 2 History multivitamin 1 tab PO DAILY 02/08/22 Unkn own History clopidogrel 75 mg tablet 75 mg PO DAILY 05/05/22 Unkn own History nitroglycerin 0.4 mg sublingual 0.4 mg sublingual Q5-1 5M PRN chest 05/26/22 Unknown Rx tablet pain #25 tabs rosuvastatin 10 mg tablet 10 mg PO QHS #90 tabs Unknown Rx oxycodone 5 mg tablet 5 mg PO Q6H PRN pain 3 Unknown History propranolol 20 mg tablet 30 mg PO BID 04/16/23 Unknow n History lisinopril 10 mg tablet 10 mg PO BID #180 TABLETS Unknown Rx Allergy/AdvReac Type Severity Reaction Status Date / Time hydrocodone (From Vicodin) Allergy Other Verified 07/28/24 10:20 orphenadrine Allergy Unknown Verified 07/28/24 10:20 pregabalin Allergy Swelling Verified 07/28/24 10:20 atorvastatin (From Lipitor) AdvReac Severe Intolerance Verified 07/28/24 10:20 ,Myalgias Family History Father CVA (cerebral vascular accident) Mother Cardiomegaly Brother CAD (coronary artery disease) Hx CABG and valve replacement Diabetes Brother History of heart valve replacement Brother Rheumatic fever Sister Hypertension Aortic aneurysm H/O aortic valve replacement Brother Cancer bladder Brother Thyroid disorder Surgical History S/P TURP History of colonoscopy H/O heart artery stent History of right hip replacement Presence of coronary angioplasty implant and graft (~09/08/10) S/P right knee arthroscopy History of appendectomy hx cervical stenosis History of vasectomy History of hydrocelectomy Social History household members: spouse housing: house Smoking Status: Former smoker pack-years: 20 Tobacco: How many years used: 22 second hand exposure: No alcohol intake: never substance use type: does not use caffeine: Yes Type: carbonated beverages Number of servings: 1 and tea what type of physical activity do you participate in: none seatbelt use: always do you feel safe at home: Yes ROS Constitutional Constitutional: Reports fatigue, malaise and weakness; Denies anorexia, chills or fever(s) Eyes Eyes: Denies change in vision ENT HEENT: Denies dysphagia, headache(s) or sore throat Cardiovascular Cardiovascular: Reports chest pain; Denies dyspnea on exertion, edema, lightheadedness, orthopnea, palpitations, paroxysmal nocturnal dyspnea or rapid heart rate Respiratory/Chest Respiratory/Chest: Denies cough, dyspnea, shortness of breath at rest or shortness of breath with exertion Gastrointestinal Gastrointestinal: Denies abdominal pain, constipation, diarrhea, nausea or vomiting Genitourinary Genitourinary: Denies dysuria Musculoskeletal Musculoskeletal: Denies arthralgias or back pain Neurologic Neurologic: Denies confusion, dizziness, focal weakness, headache(s), numbness or seizures Psychiatric Psychiatric: Denies anxiety or depression Vital Signs Vital Signs Vital Signs: 07/28/24 10:19 07/28/24 10:34 07/28/24 11:18 Temperature 98.1 F Temperature Source Temporal Pulse Rate 63 54 L Respiratory Rate 15 15 Respiratory Effort Respiratory Depth Respiratory Pattern Blood Pressure 147/80 H 139/61 H Blood Pressure Mean 102 87 Blood Pressure Source Blood Pressure Position Blood Pressure Location Pulse Ox 100 98 Oxygen Delivery Method Room Air Room Air Room Air 07/28/24 12:00 07/28/24 12:03 07/28/24 13:00 Temperature 98.1 F Temperature Source Pulse Rate 54 L 54 L 52 L Respiratory Rate 14 14 12 Respiratory Effort Respiratory Depth Respiratory Pattern Blood Pressure 149/65 H 149/65 H 148/69 H Blood Pressure Mean 93 93 95 Blood Pressure Source Blood Pressure Position Blood Pressure Location Pulse Ox 98 98 99 Oxygen Delivery Method Room Air Room Air 07/28/24 14:00 07/28/24 15:30 07/28/24 15:42 Temperature Temperature Source Pulse Rate 53 L 56 L 51 L Respiratory Rate 13 Respiratory Effort Normal Non-Labored Respiratory Depth Normal Respiratory Pattern Normal Blood Pressure 146/65 H Blood Pressure Mean 92 Blood Pressure Source Blood Pressure Position Blood Pressure Location Pulse Ox 100 Oxygen Delivery Method Room Air Room Air 07/28/24 15:45 Temperature 97.6 F L Temperature Source Oral Pulse Rate 51 L Respiratory Rate 16 Respiratory Effort Respiratory Depth Respiratory Pattern Blood Pressure 156/57 H Blood Pressure Mean 90 Blood Pressure Source Monitor Blood Pressure Position Semi-Fowlers Blood Pressure Location Right Arm Pulse Ox 100 Oxygen Delivery Method Room Air Weight Weight: 215 lb Body Mass Index (BMI) 28.3 Physical Exam Const alert, oriented x3 and no apparent distress Constitutional Narrative: elderly male, frail General Appearance: cooperative HEENT normocephalic, head/scalp atraumatic, hearing grossly normal bilaterally, moist oral mucous membranes and oropharynx normal Mouth: oral and palatal mucosa normal Eyes PERRL, EOMs intact bilaterally and conjunctivae normal Neck no lymphadenopathy and supple Resp normal respiratory effort and clear to auscultation bilaterally Cardio regular rate, regular rhythm, S1 normal heart sound, S2 normal heart sound and no murmurs GI normal to inspection, nondistended, normoactive bowel sounds, soft to palpation,non-tender and non-distended Extremity normal to inspection, full ROM and no clubbing, cyanosis or edema Neuro oriented x3, CN's II-XII intact bilaterally, moves all extremities and no focal motor deficits Sensorium / Orientation: awake and alert Motor Exam: strength 5/5 throughout Psych affect normal Results Lab / Micro Data 07/28/24 10:40 07/28/24 10:40 Labs: Laboratory Results - last 24 hr 07/28/24 10:40: WBC 9.6, RBC 3.98 L, Hgb 12.6 L, Hct 37.5 L, MCV 94.2 H, MCH 31.7, MCHC 33.6, RDW Std Deviation 45.2 H, RDW Coeff of Guido 13.1, Plt Count 353,MPV 9.6, Immature Gran % (Auto) 0.200, Neut % (Auto) 76.6 H, Lymph % (Auto) 12.4L, [place] % (Auto) 6.0, Eos % (Auto) 3.9, Baso % (Auto) 0.9, Absolute Neuts (auto)7.4, Absolute Lymphs (auto) 1.19, Nucleated RBC % 0, Sodium 136, Potassium 3.9, Chloride 100, Carbon Dioxide 24.3, Anion Gap 11, BUN 13, Creatinine 1.12, Estim Creat Clear Calc 61.84, Est GFR (MDRD) Non-Af 65, BUN/Creatinine Ratio 11.3, Glucose 181 H, Calcium 9.3, Troponin T High Sens 23 H 07/28/24 12:38: Troponin T Hi Sens 2 Hr 24 H Micro: Microbiology 07/28/24 10:37 Mucosa - Nose SARS-CoV-2, Influenza & RSV (PCR) - Final Rhythm Strip Rhythm Strip: Sinus bradycardia Rate: 57 Ectopy: None Imaging Radiology Impression Chest X-Ray 07/28/24 10:25 IMPRESSION: NEGATIVE CHEST. Reading Location: [facility] Assessment & Plan Assessment/Plan (1) Chest pain: PLAN: Plan #Chest pain to rule out ACS * Admit to PCU. Patient admitted with complaint of chest pain. EKG showed no acute ST changes. Initial troponin was only minimally elevated at 23 and delta troponin was 24. * He does have a history of CAD and had a stent many years ago in 2010 * On Plavix and statin * For stress test tomorrow. #Hypertension: On amlodipine and lisinopril as well as propranolol #Hyperlipidemia: On statin #History of CVA: On Plavix and statin Depression: On fluoxetine DVT prophylaxis: Lovenox CODE STATUS: Full code * Patient and counseled extensively about different types of CODE STATUS including full code, DNR CCA and DNR CCA. * Patient elects to be full code. * Total [id number] time 16 minutes. Charges/Coding Visit Charges Inpatient E&M: 92701 Init Hosp L2 Procedures Hospitalists Procedures: 72138 Advncd Care Plan 30 Min 07/28/24 9435 <Electronically signed by Nini Brown MD> Cosigner Signature (if applicable): CC: Dr. George Vaughan MD; Dr. Nini Brown MD~ Signed [facility] Work Phone: [phone]) 203-898903-09-2025 History and physical note [facility] [facility] [address] [place] [address] H&P Exam - Hospitalist 07/28/24 1627 MR#: [id number] Acct: [id number] Name: RONY MONZON Rep #:[id number] : 1940 84 From: Nini Brwon MD PCP: Dr. George Vaughan MD Status:AD M ARTURO Location: [place] [address] HPI - General General Date of Admission: 07/28/24 Date of Service: 07/28/24 Chief Complaint: chest pain HPI Narrative RONY MONZON, is a 84 M with a past medical history as outlined which includes history of CAD s/p stent x 1 was admitted through the ED on 07/28/2024 with a complaint of chest pain. He said that he andhis had recently had upper respiratory symptoms with some cough and congestion and mild shortness of breath. However these had resolved but he subsequently started having this chest pain. He described the pain as pressure-like and said it radiated to his back. However per his he had chronic back pain and patient said the back pain was similar to his chronic back pain. He had no aggravating or relieving factors and said even though he usually had nitro on him he had not taken any nitrofor the chest pain. He denied any fever or chills, lightheadedness or dizziness, palpitations, nausea vomiting or any other symptoms. Review of symptoms otherwise negative. Vitals in the ED were blood pressure of 156/57, pulse rate of 51, respiratory rate of 16 and temp of 97.6 Fahrenheit. He was saturating at 100% on room air. CBC showed hemoglobin of 12.6 with WBC of 9.6 and platelets of 353. Chemistry showed sodium of 136 with potassium of 3.9 and bicarb of 24.3. Anion gap was 11. Creatinine was 1.12. Initial troponin was 23 and delta troponin was only 24. Chest x-ray showed no acute cardiopulmonary pathology and EKG showed no acute ST changes. He has been admitted to be managed for chest pain to rule outACS. [facility] Medical History COVID-19 (~01/18/22) Sepsis due to urinary tract infection History of transesophageal echocardiography (VIOLETTE) Wears hearing aid Wears glasses Depression Anxiety Walker as ambulation aid Arthritis Indwelling urethral catheter present Low iron Easy bruising History of hiatal hernia Former smoker Chest pain History of tilt table evaluation Cardiology follow-up encounter History of echocardiogram History of stress test Enterococcus UTI H/O appendicitis Presence of stent in coronary artery (~09/08/10) Pure hypercholesterolemia Essential hypertension PTSD (post-traumatic stress disorder) Pulmonary hypertension Restless legs syndrome (RLS) REHAN (obstructive sleep apnea) Syncope and collapse Dizziness and giddiness Fatigue Shortness of breath Dyspnea Precordial chest pain 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 custodial use of drug Atherosclerotic heart disease of [place] coronary artery without angina pectoris 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 Neck pain on left side Benign prostatic hypertrophy Coronary artery disease Home Medications ?Medication ?Instructions ?Recorded ?Last Taken ?Type fluoxetine 40 mg capsule (Prozac) 40 mg PO DAILY 07/0407/13/21 History acetaminophen 500 mg tablet 500 mg PO Q6H PRN Pain 07/13/21 History (Tylenol Extra Strength) amlodipine 5 mg tablet 5 mg PO BID 03/17/2107/14/2 2 History multivitamin 1 tab PO DAILY 02/08/22 Unkn own History clopidogrel 75 mg tablet 75 mg PO DAILY 05/05/22 Unkn own History nitroglycerin 0.4 mg sublingual 0.4 mg sublingual Q5-1 5M PRN chest 05/26/22 Unknown Rx tablet pain #25 tabs rosuvastatin 10 mg tablet 10 mg PO QHS #90 tabs Unknown Rx oxycodone 5 mg tablet 5 mg PO Q6H PRN pain 3 Unknown History propranolol 20 mg tablet 30 mg PO BID 04/16/23 Unknow n History lisinopril 10 mg tablet 10 mg PO BID #180 TABLETS Unknown Rx Allergy/AdvReac Type Severity Reaction Status Date / Time hydrocodone (From Vicodin) Allergy Other Verified 07/28/24 10:20 orphenadrine Allergy Unknown Verified 07/28/24 10:20 pregabalin Allergy Swelling Verified 07/28/24 10:20 atorvastatin (From Lipitor) AdvReac Severe Intolerance Verified 07/28/24 10:20 ,Myalgias Family History Father CVA (cerebral vascular accident) Mother Cardiomegaly Brother CAD (coronary artery disease) Hx CABG and valve replacement Diabetes Brother History of heart valve replacement Brother Rheumatic fever Sister Hypertension Aortic aneurysm H/O aortic valve replacement Brother Cancer bladder Brother Thyroid disorder Surgical History S/P TURP History of colonoscopy H/O heart artery stent History of right hip replacement Presence of coronary angioplasty implant and graft (~09/08/10) S/P right knee arthroscopy History of appendectomy hx cervical stenosis History of vasectomy History of hydrocelectomy Social History household members: spouse housing: house Smoking Status: Former smoker pack-years: 20 Tobacco: How many years used: 22 second hand exposure: No alcohol intake: never substance use type: does not use caffeine: Yes Type: carbonated beverages Number of servings: 1 and tea what type of physical activity do you participate in: none seatbelt use: always do you feel safe at home: Yes ROS Constitutional Constitutional: Reports fatigue, malaise and weakness; Denies anorexia, chills or fever(s) Eyes Eyes: Denies change in vision ENT HEENT: Denies dysphagia, headache(s) or sore throat Cardiovascular Cardiovascular: Reports chest pain; Denies dyspnea on exertion, edema, lightheadedness, orthopnea, palpitations, paroxysmal nocturnal dyspnea or rapid heart rate Respiratory/Chest Respiratory/Chest: Denies cough, dyspnea, shortness of breath at rest or shortness of breath with exertion Gastrointestinal Gastrointestinal: Denies abdominal pain, constipation, diarrhea, nausea or vomiting Genitourinary Genitourinary: Denies dysuria Musculoskeletal Musculoskeletal: Denies arthralgias or back pain Neurologic Neurologic: Denies confusion, dizziness, focal weakness, headache(s), numbness or seizures Psychiatric Psychiatric: Denies anxiety or depression Vital Signs Vital Signs Vital Signs: 07/28/24 10:19 07/28/24 10:34 07/28/24 11:18 Temperature 98.1 F Temperature Source Temporal Pulse Rate 63 54 L Respiratory Rate 15 15 Respiratory Effort Respiratory Depth Respiratory Pattern Blood Pressure 147/80 H 139/61 H Blood Pressure Mean 102 87 Blood Pressure Source Blood Pressure Position Blood Pressure Location Pulse Ox 100 98 Oxygen Delivery Method Room Air Room Air Room Air 07/28/24 12:00 07/28/24 12:03 07/28/24 13:00 Temperature 98.1 F Temperature Source Pulse Rate 54 L 54 L 52 L Respiratory Rate 14 14 12 Respiratory Effort Respiratory Depth Respiratory Pattern Blood Pressure 149/65 H 149/65 H 148/69 H Blood Pressure Mean 93 93 95 Blood Pressure Source Blood Pressure Position Blood Pressure Location Pulse Ox 98 98 99 Oxygen Delivery Method Room Air Room Air 07/28/24 14:00 07/28/24 15:30 07/28/24 15:42 Temperature Temperature Source Pulse Rate 53 L 56 L 51 L Respiratory Rate 13 Respiratory Effort Normal Non-Labored Respiratory Depth Normal Respiratory Pattern Normal Blood Pressure 146/65 H Blood Pressure Mean 92 Blood Pressure Source Blood Pressure Position Blood Pressure Location Pulse Ox 100 Oxygen Delivery Method Room Air Room Air 07/28/24 15:45 Temperature 97.6 F L Temperature Source Oral Pulse Rate 51 L Respiratory Rate 16 Respiratory Effort Respiratory Depth Respiratory Pattern Blood Pressure 156/57 H Blood Pressure Mean 90 Blood Pressure Source Monitor Blood Pressure Position Semi-Fowlers Blood Pressure Location Right Arm Pulse Ox 100 Oxygen Delivery Method Room Air Weight Weight: 215 lb Body Mass Index (BMI) 28.3 Physical Exam Const alert, oriented x3 and no apparent distress Constitutional Narrative: elderly male, frail General Appearance: cooperative HEENT normocephalic, head/scalp atraumatic, hearing grossly normal bilaterally, moist oral mucous membranes and oropharynx normal Mouth: oral and palatal mucosa normal Eyes PERRL, EOMs intact bilaterally and conjunctivae normal Neck no lymphadenopathy and supple Resp normal respiratory effort and clear to auscultation bilaterally Cardio regular rate, regular rhythm, S1 normal heart sound, S2 normal heart sound and no murmurs GI normal to inspection, nondistended, normoactive bowel sounds, soft to palpation,non-tender and non-distended Extremity normal to inspection, full ROM and no clubbing, cyanosis or edema Neuro oriented x3, CN's II-XII intact bilaterally, moves all extremities and no focal motor deficits Sensorium / Orientation: awake and alert Motor Exam: strength 5/5 throughout Psych affect normal Results Lab / Micro Data 07/28/24 10:40 07/28/24 10:40 Labs: Laboratory Results - last 24 hr 07/28/24 10:40: WBC 9.6, RBC 3.98 L, Hgb 12.6 L, Hct 37.5 L, MCV 94.2 H, MCH 31.7, MCHC 33.6, RDW Std Deviation 45.2 H, RDW Coeff of Guido 13.1, Plt Count 353,MPV 9.6, Immature Gran % (Auto) 0.200, Neut % (Auto) 76.6 H, Lymph % (Auto) 12.4L, [place] % (Auto) 6.0, Eos % (Auto) 3.9, Baso % (Auto) 0.9, Absolute Neuts (auto)7.4, Absolute Lymphs (auto) 1.19, Nucleated RBC % 0, Sodium 136, Potassium 3.9, Chloride 100, Carbon Dioxide 24.3, Anion Gap 11, BUN 13, Creatinine 1.12, Estim Creat Clear Calc 61.84, Est GFR (MDRD) Non-Af 65, BUN/Creatinine Ratio 11.3, Glucose 181 H, Calcium 9.3, Troponin T High Sens 23 H 07/28/24 12:38: Troponin T Hi Sens 2 Hr 24 H Micro: Microbiology 07/28/24 10:37 Mucosa - Nose SARS-CoV-2, Influenza & RSV (PCR) - Final Rhythm Strip Rhythm Strip: Sinus bradycardia Rate: 57 Ectopy: None Imaging Radiology Impression Chest X-Ray 07/28/24 10:25 IMPRESSION: NEGATIVE CHEST. Reading Location: [facility] Assessment & Plan Assessment/Plan (1) Chest pain: PLAN: Plan #Chest pain to rule out ACS * Admit to PCU. Patient admitted with complaint of chest pain. EKG showed no acute ST changes. Initial troponin was only minimally elevated at 23 and delta troponin was 24. * He does have a history of CAD and had a stent many years ago in 2010 * On Plavix and statin * For stress test tomorrow. #Hypertension: On amlodipine and lisinopril as well as propranolol #Hyperlipidemia: On statin #History of CVA: On Plavix and statin Depression: On fluoxetine DVT prophylaxis: Lovenox CODE STATUS: Full code * Patient and counseled extensively about different types of CODE STATUS including full code, DNR CCA and DNR CCA. * Patient elects to be full code. * Total [id number] time 16 minutes. Charges/Coding Visit Charges Inpatient E&M: 10984 Init Hosp L2 Procedures Hospitalists Procedures: 92718 Advncd Care Plan 30 Min 07/28/24 1635 Cosigner Signature (if applicable): CC: Dr. George Vaughan MD; Dr. Nini Brown MD~ Signed [facility]03-09-2025 Evaluation note* Diagnosis Onset Date Resolution Status Admit Date Chest pain acute July 28 12:10pm [facility] Work Phone: 1(555) 399-531903-09-2025 Evaluation note* Diagnosis Onset Date Resolution Status Admit Date Chest pain resolved July 28 12:10pm [facility] Work Phone: 1(902) 767-800103-09-2025 Discharge summary Author David Doll [facility] Note Date/Time July 28, 2024 12:0 1pm [facility] Medical Records Department [address] [place] [address] Emergency Department Summary 07/28/24 MR#: [id number] Acct: [id number] Name: RONY MONZON Rep #:[id number] : 1940 84 From: David Doll MD PCP: Dr. George Vaughan MD Status:RE G ER Location: ED HPI History of Present Illness Chief Complaint: Chest Pain Informant: patient Onset/Context/Timing Onset: Days Activity at onset: gradual Timing: 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 Quality: Positive for Aching Location: Substernal Current Severity: Gone Maximum Severity: Mild Worsened By: Exertion Relieved By: Rest Associated Symptoms: Positive for Nausea, Dyspnea and Cough; Negative for Diaphoresis, Fever, Lightheadedness, Acid Reflux or Palpitations Narrative Narrative: 84-year-old male history of high cholesterol, CAD with 1 stent on Plavix and history of hypertension. States has had intermittent chest pain substernal sometimes goes in his back since . Comes and goes. He believes is worsewith walking. Mild shortness of breath and nausea. Better at rest. Denies fever. No vomiting or diarrhea. recent URI that he has since picked up. No fever. Prior Similar Symptoms: Yes Recent Illness/Hospitalization: No CVD Risk Factors: Positive for Hypertension; Negative for Diabetes PE Risk Factors: Negative for Recent Travel/Surgery, Recent Immobilization, Prior DVT or PE, Cancer or OCP + Smoking + >/=35 TAD Risk Factors: Negative for Marfan's Syndrome PFSH PFSH Medical History COVID-19 (~01/18/22) Sepsis due to urinary tract infection History of transesophageal echocardiography (VIOLETTE) Wears hearing aid Wears glasses Depression Anxiety Walker as ambulation aid Arthritis Indwelling urethral catheter present Low iron Easy bruising History of hiatal hernia Former smoker Chest pain History of tilt table evaluation Cardiology follow-up encounter History of echocardiogram History of stress test Enterococcus UTI H/O appendicitis Presence of stent in coronary artery (~09/08/10) Pure hypercholesterolemia Essential hypertension PTSD (post-traumatic stress disorder) Pulmonary hypertension Restless legs syndrome (RLS) REHAN (obstructive sleep apnea) Syncope and collapse Dizziness and giddiness Fatigue Shortness of breath Dyspnea Precordial chest pain 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 custodial use of drug Atherosclerotic heart disease of [place] coronary artery without angina pectoris 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 Neck pain on left side Benign prostatic hypertrophy Coronary artery disease Home Medications ?Medication ?Instructions ?Recorded ?Last Taken ?Type fluoxetine 40 mg capsule (Prozac) 40 mg PO DAILY 07/0407/13/21 History acetaminophen 500 mg tablet 500 mg PO Q6H PRN Pain 07/13/21 History (Tylenol Extra Strength) amlodipine 5 mg tablet 5 mg PO BID 03/17/212 2 History multivitamin 1 tab PO DAILY 02/08/22 Unkn own History clopidogrel 75 mg tablet 75 mg PO DAILY 05/05/22 Unkn own History nitroglycerin 0.4 mg sublingual 0.4 mg sublingual Q5-1 5M PRN chest 05/26/22 Unknown Rx tablet pain #25 tabs rosuvastatin 10 mg tablet 10 mg PO QHS #90 tabs Unknown Rx oxycodone 5 mg tablet 5 mg PO Q6H PRN pain 3 Unknown History propranolol 20 mg tablet 30 mg PO BID 04/16/23 Unknow n History lisinopril 10 mg tablet 10 mg PO BID #180 TABLETS Unknown Rx Allergy/AdvReac Type Severity Reaction Status Date / Time hydrocodone (From Vicodin) Allergy Other Verified 07/28/24 10:20 orphenadrine Allergy Unknown Verified 07/28/24 10:20 pregabalin Allergy Swelling Verified 07/28/24 10:20 atorvastatin (From Lipitor) AdvReac Severe Intolerance Verified 07/28/24 10:20 ,Myalgias Family History Father CVA (cerebral vascular accident) Mother Cardiomegaly Brother CAD (coronary artery disease) Hx CABG and valve replacement Diabetes Brother History of heart valve replacement Brother Rheumatic fever Sister Hypertension Aortic aneurysm H/O aortic valve replacement Brother Cancer bladder Brother Thyroid disorder Surgical History S/P TURP History of colonoscopy H/O heart artery stent History of right hip replacement Presence of coronary angioplasty implant and graft (~09/08/10) S/P right knee arthroscopy History of appendectomy hx cervical stenosis History of vasectomy History of hydrocelectomy Social History household members: spouse housing: house Smoking Status: Former smoker pack-years: 20 Tobacco: How many years used: 22 second hand exposure: No alcohol intake: never substance use type: does not use caffeine: Yes Type: carbonated beverages Number of servings: 1 and tea what type of physical activity do you participate in: none seatbelt use: always do you feel safe at home: Yes ROS ROS ED ROS Narrative Chest pain. Mild cough. Constitutional Constitutional ED: Denies chills or fever(s) Eyes Eyes: Reports none ENT ENT ED: Denies ear pain or rhinorrhea Cardiovascular Cardiovascular: Reports as per HPI and chest pain; Denies palpitations or racingheartbeat Respiratory/Chest Respiratory/Chest: Reports cough Gastrointestinal Gastrointestinal: Denies abdominal pain Genitourinary Genitourinary ED: Denies dysuria or hematuria Musculoskeletal Musculoskeletal: Denies arthralgias Integumentary Denies abscess Neurologic Neurologic: Denies headache(s) Psychiatric Psychiatric: Denies anxiety Endocrine Endocrinology: Denies cold intolerance Hematologic/Lymphatic Hematologic/Lymphatic: Denies easy bleeding, easy bruising or lymphadenopathy Allergic/Immunologic Allergic/Immunologic ED: Denies mouth swelling, tongue swelling or urticaria EXAM Physical Exam Narrative Exam Narrative: Well-appearing 84-year-old male sitting upright in bed. at bedside. Vitalsigns are stable afebrile. He does not look septic toxic or dehydrated. He is in no distress. H EENT exam pupils round reactive light. Moist mucous membranes. Hearing aid in his ears. Neck nontender no lymphadenopathy. Trachea midline. Lungs clear to auscultation bilaterally. Heart regular rate and rhythm rate about 60 no murmur. Chest wall ribs nontender. No reproducible pain. Abdomen soft nontender. No peritoneal signs. Pelvic girdle intact. Moving all 4 extremities. Equal symmetrical radial pulses. 5 out of 5 gasateria attendant strength. Dorsi plantarflexion intact. Calves nontender without edema or cords. Neurologically is awake and alert. Answering questions following commands. He is hard of hearing. Const Vital Signs: 07/28/24 10:19 07/28/24 10:34 07/28/24 11:18 Temperature 98.1 F Temperature Source Temporal Pulse Rate 63 54 L Respiratory Rate 15 15 Blood Pressure 147/80 H 139/61 H Blood Pressure Mean 102 87 Pulse Ox 100 98 Oxygen Delivery Method Room Air Room Air Room Air Positive well nourished and well developed; Negative for obese, cachectic, contractures or unkempt General Appearance ED: well developed and NAD; Negative for unkempt, cachectic, contractures or pallor Nutritional Appearance: Negative for cachectic or obese HEENT Reports moist mucous membranes; Denies dry mucous membranes normocephalic and atraumatic; Negative for trauma or tenderness Mouth ED: No dry mucous membranes Mouth: No dry mucous membranes Eyes PERRL and EOMs intact bilaterally General Eye ED: Negative for pale conjunctiva or scleral icterus Neck no lymphadenopathy, supple and no JVD General: Negative for tenderness Chest Wall inspection of chest normal and palpation of chest normal Resp normal respiratory effort and clear to auscultation bilaterally Effort and Inspection: Negative for respiratory distress Auscultation: Negative for rales, rhonchi, wheezes or diminished lung sounds Cardio regular rate, regular rhythm, S1 normal heart sound, S2 normal heart sound and no murmurs Rate: Negative for bradycardia or tachycardic Rhythm: Negative for abnormal rhythm Peripheral Pulses: pulses 2+ throughout GI normal to inspection, nondistended, normoactive bowel sounds, soft to palpation,non-tender, non-distended and no masses Back/Spine no CVA tenderness and no thoracic nor lumbar tenderness General Back: Negative for CVA tenderness Cervical Spine: Negative for cervical spine tenderness Extremity normal to inspection General Extremety ED: Negative for edema, pulses abnormal or tenderness General Extremity: Negative for edema or pulses abnormal Neuro oriented x3 and CN's II-XII intact bilaterally Sensorium / Orientation: awake, alert, oriented to person, oriented to place andoriented to time; Negative for confused, lethargic or stuporous Motor Exam: strength 5/5 throughout Psych mental status grossly normal Appearance: Negative for unkempt Attitude: No agitated Mood & Affect: Negative for depressed, anxious or tearful Skin no rashes or lesions noted and no wounds General Skin Exam: Negative for jaundice or pallor Rashes: No rashes noted Trauma: Negative for abrasion or laceration Heart Score History: Moderately Suspicious ECG: Normal Age: >/= 65 years Risk Factors: >/= 3 Risk Factors or History of CAD Troponin: </= Normal Limit Score: 5 MDM MDM MDM Narrative Medical decision making narrative: 84-year-old male with nonreproducible chest pain intermittently for 3 days. Undergo cardiac workup. He has a known history of CAD. He is on Plavix. Repeat exam at 11:55 AM. Patient is doing well. I went over test results of both he and his . His history is concerning he is having pain worse with exertion better at rest he has known cardiac disease with a stent. I do not think this is a viral illness. And is not reproducible. He will be admitted for further evaluation and workup. I did add the 2 and 4-hour troponin to his labs. Hospitalist on page. History & Record Review Discussion w/independent historian: Patient Lab Data Attestation: I reviewed the patient's lab results. Lab results narrative: CBC shows a white count 9. H&H 12.6 and 37. Platelets 353. Chemistries show a gap 11. Normal BUN of 13 creatinine 1.1. Glucose 181. Initial troponins elevated at 23. Labs: Laboratory Results - last 24 hr 07/28/24 10:40 WBC 9.6 RBC 3.98 L Hgb 12.6 L Hct 37.5 L MCV 94.2 H MCH 31.7 MCHC 33.6 RDW Std Deviation 45.2 H RDW Coeff of Guido 13.1 Plt Count 353 MPV 9.6 Immature Gran % (Auto) 0.200 Neut % (Auto) 76.6 H Lymph % (Auto) 12.4 L [place] % (Auto) 6.0 Eos % (Auto) 3.9 Baso % (Auto) 0.9 Absolute Neuts (auto) 7.4 Absolute Lymphs (auto) 1.19 Nucleated RBC % 0 Sodium 136 Potassium 3.9 Chloride 100 Carbon Dioxide 24.3 Anion Gap 11 BUN 13 Creatinine 1.12 Estim Creat Clear Calc 61.84 Est GFR (MDRD) Non-Af 65 BUN/Creatinine Ratio 11.3 Glucose 181 H Calcium 9.3 Troponin T High Sens 23 H Radiography Chest X-Ray - ED: 1 View, Read by ED Physician, Normal, Heart, Lungs, Mediastinum, Bony Structures, No Acute Disease and Chronic Changes Diagnostic Testing: Clinical Impression(s) from Imaging Studies Chest X-Ray 07/28/24 10:25 IMPRESSION: NEGATIVE CHEST. Reading Location: [facility] Chest x-ray, portable, 2 films, interpreted by myself shows normal cardiac silhouette. Normal lung hutson. No acute process. Chronic changes. Rhythm Strip Rhythm Strip: Sinus bradycardia Rate: 57 Ectopy: None EKG Initial EKG: Attestation: I personally reviewed and interpreted this EKG as follows: Interpretation: No Acute Injury Pattern and Sinus Bradycardia Comments: Sinus bradycardia rate of 57 no acute signs of NM or ischemia. No dysrhythmia. Discharge Plan Triage Chief Complaint: Chest Pain ED Provider: David Doll Dx/Rx/DC Orders Clinical Impression: Chest pain, History of CAD (coronary artery disease) Prescriptions: No Action fluoxetine [Prozac] 40 mg capsule 40 mg PO DAILY Patient Comments: not taking while taking antibiotic linezolid acetaminophen [Tylenol Extra Strength] 500 mg tablet 500 mg PO Q6H PRN (Reason: Pain) nitroglycerin 0.4 mg tablet, sublingual 0.4 mg SUBLINGUAL Q5-15M PRN (Reason: chest pain) Qty: 25 1RF Rx Instructions: do not exceed 3 doses per episode multivitamin Tablet 1 tab PO DAILY oxycodone 5 mg tablet 5 mg PO Q6H PRN (Reason: pain) Patient Comments: TAKE 1 TO 2 TABLET BY MOUTH EVERY SIX HOURS NEEDED FOR PAIN propranolol 20 mg tablet 30 mg PO BID amlodipine 5 mg tablet 5 mg PO BID clopidogrel 75 mg tablet 75 mg PO DAILY rosuvastatin 10 mg tablet 10 mg PO QHS Qty: 90 3RF lisinopril 10 mg tablet 10 mg PO BID Qty: 180 3RF Primary Care Provider: George Vaughan Referrals: George Vaughan MD [Primary Care Provider] - Print Language: Uzbek Disposition Disposition: Acute Care Hospital [facility] What to do if you have Problems For any increased pain, shortness of breath, bleeding, nausea or vomiting, chestpain, or any unexpected problems, contact your Primary Care Provider. Call [facility] ([phone]) or report to the closest Emergency Room. Call 911 if necessary. 07/28/24 1201 <Electronically signed by David Doll MD> Cosigner Signature (if applicable): CC: Dr. George Vaugahn MD ~ Signed [facility] Work Phone: 1(934) 366-464003-09-2025 Discharge summary [facility] Medical Records Department [address] [place] [id number] Emergency Department Summary 07/28/24 MR#: [id number] Acct: [id number] Name: RONY MONZON Rep #:[id number] : 1940 84 From: David Doll MD PCP: Dr. George Vaughan MD Status:RE G ER Location: ED HPI History of Present Illness Chief Complaint: Chest Pain Informant: patient Onset/Context/Timing Onset: Days Activity at onset: gradual Timing: 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 Quality: Positive for Aching Location: Substernal Current Severity: Gone Maximum Severity: Mild Worsened By: Exertion Relieved By: Rest Associated Symptoms: Positive for Nausea, Dyspnea and Cough; Negative for Diaphoresis, Fever, Lightheadedness, Acid Reflux or Palpitations Narrative Narrative: 84-year-old male history of high cholesterol, CAD with 1 stent on Plavix and history of hypertension. States has had intermittent chest pain substernal sometimes goes in his back since . Comes and goes. He believes is worsewith walking. Mild shortness of breath and nausea. Better at rest. Denies fever. No vomiting or diarrhea. recent URI that he has since picked up. No fever. Prior Similar Symptoms: Yes Recent Illness/Hospitalization: No CVD Risk Factors: Positive for Hypertension; Negative for Diabetes PE Risk Factors: Negative for Recent Travel/Surgery, Recent Immobilization, Prior DVT or PE, Canceror OCP + Smoking + >/=35 TAD Risk Factors: Negative for Marfan's Syndrome [facility] Medical History COVID-19 (~01/18/22) Sepsis due to urinary tract infection History of transesophageal echocardiography (VIOLETTE) Wears hearing aid Wears glasses Depression Anxiety Walker as ambulation aid Arthritis Indwelling urethral catheter present Low iron Easy bruising History of hiatal hernia Former smoker Chest pain History of tilt table evaluation Cardiology follow-up encounter History of echocardiogram History of stress test Enterococcus UTI H/O appendicitis Presence of stent in coronary artery (~09/08/10) Pure hypercholesterolemia Essential hypertension PTSD (post-traumatic stress disorder) Pulmonary hypertension Restless legs syndrome (RLS) REHAN (obstructive sleep apnea) Syncope and collapse Dizziness and giddiness Fatigue Shortness of breath Dyspnea Precordial chest pain 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 Atherosclerotic heart disease of [place] coronary artery without angina pectoris 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 Neck pain on left side Benign prostatic hypertrophy Coronary artery disease Home Medications ?Medication ?Instructions ?Recorded ?Last Taken ?Type fluoxetine 40 mg capsule (Prozac) 40 mg PO DAILY 07/0407/13/21 History acetaminophen 500 mg tablet 500 mg PO Q6H PRN Pain 07/13/21 History (Tylenol Extra Strength) amlodipine 5 mg tablet 5 mg PO BID 03/17/2107/14/2 2 History multivitamin 1 tab PO DAILY 02/08/22 Unkn own History clopidogrel 75 mg tablet 75 mg PO DAILY 05/05/22 Unkn own History nitroglycerin 0.4 mg sublingual 0.4 mg sublingual Q5-1 5M PRN chest 05/26/22 Unknown Rx tablet pain #25 tabs rosuvastatin 10 mg tablet 10 mg PO QHS #90 tabs Unknown Rx oxycodone 5 mg tablet 5 mg PO Q6H PRN pain 3 Unknown History propranolol 20 mg tablet 30 mg PO BID 04/16/23 Unknow n History lisinopril 10 mg tablet 10 mg PO BID #180 TABLETS Unknown Rx Allergy/AdvReac Type Severity Reaction Status Date / Time hydrocodone (From Vicodin) Allergy Other Verified 07/28/24 10:20 orphenadrine Allergy Unknown Verified 07/28/24 10:20 pregabalin Allergy Swelling Verified 07/28/24 10:20 atorvastatin (From Lipitor) AdvReac Severe Intolerance Verified 07/28/24 10:20 ,Myalgias Family History Father CVA (cerebral vascular accident) Mother Cardiomegaly Brother CAD (coronary artery disease) Hx CABG and valve replacement Diabetes Brother History of heart valve replacement Brother Rheumatic fever Sister Hypertension Aortic aneurysm H/O aortic valve replacement Brother Cancer bladder Brother Thyroid disorder Surgical History S/P TURP History of colonoscopy H/O heart artery stent History of right hip replacement Presence of coronary angioplasty implant and graft (~09/08/10) S/P right knee arthroscopy History of appendectomy hx cervical stenosis History of vasectomy History of hydrocelectomy Social History household members: spouse housing: house Smoking Status: Former smoker pack-years: 20 Tobacco: How many years used: 22 second hand exposure: No alcohol intake: never substance use type: does not use caffeine: Yes Type: carbonated beverages Number of servings: 1 and tea what type of physical activity do you participate in: none seatbelt use: always do you feel safe at home: Yes ROS ROS ED ROS Narrative Chest pain. Mild cough. Constitutional Constitutional ED: Denies chills or fever(s) Eyes Eyes: Reports none ENT ENT ED: Denies ear pain or rhinorrhea Cardiovascular Cardiovascular: Reports as per HPI and chest pain; Denies palpitations or racingheartbeat Respiratory/Chest Respiratory/Chest: Reports cough Gastrointestinal Gastrointestinal: Denies abdominal pain Genitourinary Genitourinary ED: Denies dysuria or hematuria Musculoskeletal Musculoskeletal: Denies arthralgias Integumentary Denies abscess Neurologic Neurologic: Denies headache(s) Psychiatric Psychiatric: Denies anxiety Endocrine Endocrinology: Denies cold intolerance Hematologic/Lymphatic Hematologic/Lymphatic: Denies easy bleeding, easy bruising or lymphadenopathy Allergic/Immunologic Allergic/Immunologic ED: Denies mouth swelling, tongue swelling or urticaria EXAM Physical Exam Narrative Exam Narrative: Well-appearing 84-year-old male sitting upright in bed. at bedside. Vitalsigns are stable afebrile. He does not look septic toxic or dehydrated. He is in no distress. H EENT exam pupils round reactive light. Moist mucous membranes. Hearing aid in his ears. Neck nontender no lymphadenopathy. Trachea midline. Lungs clear to auscultation bilaterally. Heart regular rate and rhythm rate about 60 no murmur. Chest wall ribs nontender. No reproducible pain. Abdomen soft nontender. No peritoneal signs. Pelvic girdle intact. Moving all 4 extremities. Equal symmetrical radial pulses. 5 out of 5 gasateria attendant strength. Dorsi plantarflexion intact. Calves nontender without edema or cords. Neurologically is awake and alert. Answering questions following commands. He is hard of hearing. Const Vital Signs: 07/28/24 10:19 07/28/24 10:34 07/28/24 11:18 Temperature 98.1 F Temperature Source Temporal Pulse Rate 63 54 L Respiratory Rate 15 15 Blood Pressure 147/80 H 139/61 H Blood Pressure Mean 102 87 Pulse Ox 100 98 Oxygen Delivery Method Room Air Room Air Room Air Positive well nourished and well developed; Negative for obese, cachectic, contractures or unkempt General Appearance ED: well developed and NAD; Negative for unkempt, cachectic, contractures or pallor Nutritional Appearance: Negative for cachectic or obese HEENT Reports moist mucous membranes; Denies dry mucous membranes normocephalic and atraumatic; Negative for trauma or tenderness Mouth ED: No dry mucous membranes Mouth: No dry mucous membranes Eyes PERRL and EOMs intact bilaterally General Eye ED: Negative for pale conjunctiva or scleral icterus Neck no lymphadenopathy, supple and no JVD General: Negative for tenderness Chest Wall inspection of chest normal and palpation of chest normal Resp normal respiratory effort and clear to auscultation bilaterally Effort and Inspection: Negative for respiratory distress Auscultation: Negative for rales, rhonchi, wheezes or diminished lung sounds Cardio regular rate, regular rhythm, S1 normal heart sound, S2 normal heart sound and no murmurs Rate: Negative for bradycardia or tachycardic Rhythm: Negative for abnormal rhythm Peripheral Pulses: pulses 2+ throughout GI normal to inspection, nondistended, normoactive bowel sounds, soft to palpation,non-tender, non-distended and no masses Back/Spine no CVA tenderness and no thoracic nor lumbar tenderness General Back: Negative for CVA tenderness Cervical Spine: Negative for cervical spine tenderness Extremity normal to inspection General Extremety ED: Negative for edema, pulses abnormal or tenderness General Extremity: Negative for edema or pulses abnormal Neuro oriented x3 and CN's II-XII intact bilaterally Sensorium / Orientation: awake, alert, oriented to person, oriented to place andoriented to time; Negative for confused, lethargic or stuporous Motor Exam: strength 5/5 throughout Psych mental status grossly normal Appearance: Negative for unkempt Attitude: No agitated Mood & Affect: Negative for depressed, anxious or tearful Skin no rashes or lesions noted and no wounds General Skin Exam: Negative for jaundice or pallor Rashes: No rashes noted Trauma: Negative for abrasion or laceration Heart Score History: Moderately Suspicious ECG: Normal Age: >/= 65 years Risk Factors: >/= 3 Risk Factors or History of CAD Troponin: Score: 5 MDM MDM MDM Narrative Medical decision making narrative: 84-year-old male with nonreproducible chest pain intermittently for 3 days. Undergo cardiac workup.He has a known history of CAD. He is on Plavix. Repeat exam at 11:55 AM. Patient is doing well. I went over test results of both he and his . His history is concerning he is having pain worse with exertion better at rest he has known cardiac disease with a stent. I do not think this is a viral illness. And is not reproducible. He will be admitted for further evaluation and workup. I did add the 2 and 4-hour troponin to his labs. Hospitalist on page. History & Record Review Discussion w/independent historian: Patient Lab Data Attestation: I reviewed the patient's lab results. Lab results narrative: CBC shows a white count 9. H&H 12.6 and 37. Platelets 353. Chemistries show a gap 11. Normal BUN of 13 creatinine 1.1. Glucose 181. Initial troponins elevated at 23. Labs: Laboratory Results - last 24 hr 07/28/24 10:40 WBC 9.6 RBC 3.98 L Hgb 12.6 L Hct 37.5 L MCV 94.2 H MCH 31.7 MCHC 33.6 RDW Std Deviation 45.2 H RDW Coeff of Guido 13.1 Plt Count 353 MPV 9.6 Immature Gran % (Auto) 0.200 Neut % (Auto) 76.6 H Lymph % (Auto) 12.4 L [place] % (Auto) 6.0 Eos % (Auto) 3.9 Baso % (Auto) 0.9 Absolute Neuts (auto) 7.4 Absolute Lymphs (auto) 1.19 Nucleated RBC % 0 Sodium 136 Potassium 3.9 Chloride 100 Carbon Dioxide 24.3 Anion Gap 11 BUN 13 Creatinine 1.12 Estim Creat Clear Calc 61.84 Est GFR (MDRD) Non-Af 65 BUN/Creatinine Ratio 11.3 Glucose 181 H Calcium 9.3 Troponin T High Sens 23 H Radiography Chest X-Ray - ED: 1 View, Read by ED Physician, Normal, Heart, Lungs, Mediastinum, Bony Structures,No Acute Disease and Chronic Changes Diagnostic Testing: Clinical Impression(s) from Imaging Studies Chest X-Ray 07/28/24 10:25 IMPRESSION: NEGATIVE CHEST. Reading Location: [facility] Chest x-ray, portable, 2 films, interpreted by myself shows normal cardiac silhouette. Normal lung hutson. No acute process. Chronic changes. Rhythm Strip Rhythm Strip: Sinus bradycardia Rate: 57 Ectopy: None EKG Initial EKG: Attestation: I personally reviewed and interpreted this EKG as follows: Interpretation: No Acute Injury Pattern and Sinus Bradycardia Comments: Sinus bradycardia rate of 57 no acute signs of NM or ischemia. No dysrhythmia. Discharge Plan Triage Chief Complaint: Chest Pain ED Provider: David Doll Dx/Rx/DC Orders Clinical Impression: Chest pain, History of CAD (coronary artery disease) Prescriptions: No Action fluoxetine [Prozac] 40 mg capsule 40 mg PO DAILY Patient Comments: not taking while taking antibiotic linezolid acetaminophen [Tylenol Extra Strength] 500 mg tablet 500 mg PO Q6H PRN (Reason: Pain) nitroglycerin 0.4 mg tablet, sublingual 0.4 mg SUBLINGUAL Q5-15M PRN (Reason: chest pain) Qty: 25 1RF Rx Instructions: do not exceed 3 doses per episode multivitamin Tablet 1 tab PO DAILY oxycodone 5 mg tablet 5 mg PO Q6H PRN (Reason: pain) Patient Comments: TAKE 1 TO 2 TABLET BY MOUTH EVERY SIX HOURS NEEDED FOR PAIN propranolol 20 mg tablet 30 mg PO BID amlodipine 5 mg tablet 5 mg PO BID clopidogrel 75 mg tablet 75 mg PO DAILY rosuvastatin 10 mg tablet 10 mg PO QHS Qty: 90 3RF lisinopril 10 mg tablet 10 mg PO BID Qty: 180 3RF Primary Care Provider: George Vaughan Referrals: George Vaughan MD [Primary Care Provider] - Print Language: Uzbek Disposition Disposition: Acute Care Hospital [facility] What to do if you have Problems For any increased pain, shortness of breath, bleeding, nausea or vomiting, chestpain, or any unexpected problems, contact your Primary Care Provider. Call [facility] ([phone]) or report tothe closest Emergency Room. Call 911 if necessary. 07/28/24 1201 Cosigner Signature (if applicable): CC: Dr. George Vaughan MD ~ Signed [facility]03-09-2025 Radiology Diagnostic study note [facility] Imaging Services [address] [place], [place] [address] Chest 1 View (Portable) MR#: [id number] Acct: [id number] Name: RONY MONZON Rep #: [id number] : 1940 M 84 From: Fina Johnston MD PCP: Dr. George Vaughan MD Status: RE G ER Study:Chest 1 View (Portable) Date of Exam: 07/28/24 Exam# [id number] Ordering Dr: Betsy Doll MD PROCEDURE: CHEST 1 VIEW (PORTABLE) REASON FOR EXAM: 84-year-old male, mid sternal chest pain with left-sided radiation x2 days. TECHNIQUE: Frontal view of the chest. COMPARISON: Chest radiograph 02/10/2024. FINDINGS: The heart size is normal. Mild bibasilar atelectasis/scarring. No focal consolidation, pleural effusion or pneumothorax. Degenerative changes are identified within the thoracic spine. RAD/Chest 1 View (Portable) IMPRESSION: NEGATIVE CHEST. Reading Location: [facility] CC: Dr. David Doll MD; Dr. George Vaughan MD ~ Research Soil Scientist: Signed [facility]03-04-2025 History of Present illness Narrative* George Vaughan MD - 07/23/2024 9:00 AM EST Chief Complaint Patient presents with: F/U 6 Month HPI Rony Monzon is a 83 year old male who presents here today for a 6 month follow up. Pt here today with his for routine follow up. Labs not done. GI/Uro - Denies any stomach, bowel, or urinary issues. GERD - Pt has had chronic GERD sx, with pain between the shoulder blades for a long time. He has had multiple testing and imaging done. SAUCEDO - Headaches that occur, but pt believes that the neck pain contributes to some of the pain. Takes Tylenol as needed which helps. Glucose - Hx of elevated glucose/A1c. Currently on no medications at this time and controlling withdiet and lifestyle. Pt states he had eye exam done in October of [address] Luna. HTN - Checks BP at home occ. Pt report BP being slightly high. Pt reports chest pain, sob, or dizziness at times. Is on Propranolol 30 mg 1 pill BID, Lisinopril 10 mg 1 pill BID, and Norvasc 5 mg 1 pill BID. Follows with [facility] at least annually. Needs to make an appt with them. Tremors: Follows with Neuro, taking Propranolol 30 mg 1 pill twice a day. Lipid/CAD: Taking Plavix 75 mg daily and Crestor 10 mg daily. Tries to watch his diet. Denies any exercise. Pain: chronic; uses Oxycodone 5 mg every 6 hours prn and Tylenol extra strength prn. Wants to startback on a muscle relaxant, used flexeril in past. feels that pt would benefit from PT due to his chronic pain in his back, neck, balance issues and his sob issues. Pt does not feel the same. Pt is currently using a rollator continuously. Deniesany falls in the past year. HM - RSV/Shingles vaccine through the Pharmacy due to Medicare Insurance. Does have Adv Dir/Living Will. Past medical history, appointments, medications, allergies reviewed. Previous Medical History PAST MEDICAL HISTORY Diagnosis Date Adjustment disorder with depressed mood Anemia Benign neoplasm of colon Coronary artery disease Diabetes (HCC) Essential hypertension, benign Gallbladder polyp needs repeat ultrasound in 06/06 Impaired fasting glucose Internal hemorrhoids without mention of complication Other and unspecified hyperlipidemia Personal history of colonic polyps Previous Surgical History PAST SURGICAL HISTORY Procedure Laterality Date APPENDECTOMY ARTHRP ACETBLR/PROX FEM PROSTC AGRFT/ALGRFT Right 08/08/2018 Dr. Charly Suh CARDIAC CATH N/A 02/02/2015 Completed at [facility] COLONOSCOPY FLX DX W/COLLJ SPEC WHEN PFRMD 07/11/12 Colonoscopy COLONOSCOPY FLX DX W/COLLJ SPEC WHEN PFRMD 02/24/2017 Colonoscopy COLONOSCOPY W/BIOPSY SINGLE/MULTIPLE 03/29/06 ESOPHAGOGASTRODUODENOSCOPY TRANSORAL DIAGNOSTIC 02/24/2017 EGD [place] W/O FACETEC FORAMOT/DSC 05/[address] Cole PAST SURGICAL HISTORY OF Right 2007 knee surgery RPR [place] VAGINALIS HYDROCELE BOTTLE TYPE STENT PLACEMENT 08/2010 [facility] VASECTOMY UNI/BI SPX W/POSTOP SEMEN EXAMS Family History FAMILY HISTORY Problem Relation Age of Onset Heart Brother valvular heart disease Heart Brother valvular heart disease Heart Brother valvular heart diease Hypertension Sister COPD Father Stroke Father Heart Mother Patient Allergies ALLERGIES Allergen Reactions Lyrica [Pregabalin] Swelling B/L hand swelling Norflex [Orphenadri* GI Upset Vicodin [Hydrocodon* nightmares Neurontin [Gabapent* Swelling Feels that he does not have a true allergy to this medication. States he had swelling, not rash. Current Medications Current Outpatient Medications on File Prior to Visit Medication Sig propranolol (INDERAL) 20 mg tablet Take 1 tablet by mouth two times a day. amLODIPine (NORVASC) 5 mg tablet Take 1 tablet by mouth two times a day. clopidogrel (PLAVIX) 75 mg tablet Take 1 tablet by mouth once daily. FLUoxetine (PROZAC) 40 mg capsule Take 1 capsule by mouth once daily. cyclobenzaprine (FLEXERIL) 10 mg tablet Take 1 tablet by mouth three times a day as needed for muscle spasm. amoxicillin (AMOXIL) 500 mg capsule 4 capsules 1 hours prior to dental procedure. rosuvastatin (CRESTOR) 10 mg tablet Take 1 tablet by mouth daily at bedtime. oxyCODONE IR (ROXICODONE) 5 mg immediate release tablet EVERY 6 HOURS NEEDED lisinopril (PRINIVIL) 10 mg tablet Take 1 tablet by mouth twice daily. Dr. Kramer nitroglycerin sublingual (NITROSTAT) 0.4 mg SL tablet Dissolve 1 tablet under the tongue every 5 minutes as needed for chest pain. acetaminophen (TYLENOL EXTRA STRENGTH) 500 mg tablet Take 1 tablet by mouth every 6 hours as neededfor pain. multivitamin tablet Take 1 tablet by mouth once daily. No current facility-administered medications on file prior to visit. Social History Social History Tobacco Use Smoking status: Former Current packs/day: 0.00 Types: Cigarettes, Pipe Start date: 1962 Quit date: 1981 Years since quittin.2 Smokeless tobacco: Former Quit date: 05/22/1981 Tobacco comments: Quit in 1981 Vaping Use Vaping status: Never Used Substance Use Topics Alcohol use: No Drug use: No EXAM: BP 128/64 (BP Site: Left Arm, BP Position: Sitting, BP Cuff Size: Regular Adult) Pulse 68 Resp 18 Wt 101.3 kg (223 lb 5.2 oz) BMI 29.46 kg/m General Appearance: Well appearing, alert, in no acute distress, well-hydrated, well nourished.. Lungs: Lungs clear to auscultation. No wheezing, rhonchi, rales.. Heart: RRR without murmur, gallop, or rubs. No ectopy. Health Maintenance List Dilated Retinal Exam due on 12/21/2007 RSV Vaccine(1 - 1-dose 75+ series) Never done Shingrix Vaccine(2 of 3) due on 01/06/2017 Urine Albumin:Creatinine Ratio due on 02/20/2019 Diabetic Foot Exam due on 04/16/2020 Advance Directive Discussion due on 05/22/2024 HbA1C due on 05/29/2024 Covid-19 Vaccine( season) due on 08/08/2024 LDL Cholesterol due on 11/26/2024 DTaP,Tdap,Td Vaccine(3 - Td or Tdap) due on 02/24/2033 Influenza Vaccine Completed Pneumococcal Vaccine: 50+ Completed Colorectal Cancer Screening Discontinued Data reviewed None ASSESSMENT/PLAN: 1. Essential hypertension, benign - ICD9: 401.1, ICD10: I10 (primary diagnosis) - Controlled - Continue current medications - Recommend home blood pressure monitoring, to bring results to next visit - Encouraged sodium restriction, DASH or Mediterranean diet - Recommend regular aerobic exercise - COMPREHENSIVE METABOLIC PANEL - LIPID PANEL BASIC - COMPLETE BLOOD COUNT 2. Hyperlipidemia, mixed - ICD9: 272.2, ICD10: E78.2 - Control undetermined, due for labs - Continue current medications - Counseled on healthy diet and regular exercise - COMPREHENSIVE METABOLIC PANEL - LIPID PANEL BASIC 3. Impaired fasting glucose - ICD9: 790.21, ICD10: R73.01 Check labs - COMPREHENSIVE METABOLIC PANEL - LIPID PANEL BASIC - HEMOGLOBIN A1C 4. Coronary artery disease involving [place] heart without angina pectoris, unspecified vessel or lesion type - ICD9: 414.01, ICD10: I25.10 Follow with Cardiology 5. Depression, unspecified depression type - ICD9: 311, ICD10: F32.A Continue current medications. 6. Tremor - ICD9: 781.0, ICD10: R25.1 Follow with Neuro 7. Thoracic back pain, unspecified back pain laterality, unspecified chronicity - ICD9: 724.1, ICD10: M54.6 - CONSULT TO PHYSICAL THERAPY 8. Cervicalgia - ICD9: 723.1, ICD10: M54.2 9. Cervical spondylosis - ICD9: 721.0, ICD10: M47.812 10. Lumbar radiculopathy - ICD9: 724.4, ICD10: M54.16 - CONSULT TO PHYSICAL THERAPY 11. Myelomalacia of cervical cord (HCC) - ICD9: 336.8, ICD10: G95.89 12. Generalized weakness - ICD9: 780.79, ICD10: R53.1 - CONSULT TO PHYSICAL THERAPY 13. Balance disorder - ICD9: 781.99, ICD10: R26.89 - CONSULT TO PHYSICAL THERAPY Rx to get PT at [facility] to work on strengthening, gait, balance, back pain Follow up in 6 months Medical Decision Making: Problems: Moderate: 2+ stable chronic illnesses Risk: Moderate: Drug management Medical Decision Making Level: 4 - Moderate George Vaughan MD [facility] NoteHNO ID: [id number] Author: GEORGE VAUGHAN MD Service: ? Author Type: Physician Type: Progress Notes Filed: 07/23/2024 11:37 Note Text: Chief Complaint Patient presents with: F/U 6 Month HPI Rony Monzon is a 83 year old male who presents here today for a 6 month follow up. Pt here today with his for routine follow up. Labs not done. GI/Uro - Denies any stomach, bowel, or urinary issues. GERD - Pt has had chronic GERD sx, with pain between the shoulder blades for a long time. He has had multiple testing and imaging done. SAUCEDO - Headaches that occur, but pt believes that the neck pain contributes to some of the pain. Takes Tylenol as needed which helps. Glucose - Hx of elevated glucose/A1c. Currently on no medications at this time and controlling with diet and lifestyle. Pt states he had eye exam done in October of [address] Luna. HTN - Checks BP at home occ. Pt report BP being slightly high. Pt reports chest pain, sob, or dizziness at times. Is on Propranolol 30 mg 1 pill BID, Lisinopril 10 mg 1 pill BID, and Norvasc 5 mg 1 pill BID. Follows with [facility] at least annually. Needs to make an appt with them. Tremors: Follows with Neuro, taking Propranolol 30 mg 1 pill twice a day. Lipid/CAD: Taking Plavix 75 mg daily and Crestor 10 mg daily. Tries to watch his diet. Denies any exercise. Pain: chronic; uses Oxycodone 5 mg every 6 hours prn and Tylenol extra strength prn. Wants to start back on a muscle relaxant, used flexeril in past. feels that pt would benefit from PT due to his chronic pain in his back, neck, balance issues and his sob issues. Pt does not feel the same. Pt is currently using a rollator continuously. Denies any falls in the past year. HM - RSV/Shingles vaccine through the Pharmacy due to Medicare Insurance. Does have Adv Dir/Living Will. Past medical history, appointments, medications, allergies reviewed. Previous Medical History PAST MEDICAL HISTORY Diagnosis Date Adjustment disorder with depressed mood Anemia Benign neoplasm of colon Coronary artery disease Diabetes (HCC) Essential hypertension, benign Gallbladder polyp needs repeat ultrasound in 06/06 Impaired fasting glucose Internal hemorrhoids without mention of complication Other and unspecified hyperlipidemia Personal history of colonic polyps Previous Surgical History PAST SURGICAL HISTORY Procedure Laterality Date APPENDECTOMY ARTHRP ACETBLR/PROX FEM PROSTC AGRFT/ALGRFT Right 08/08/2018 Dr. Charly Suh CARDIAC CATH N/A 02/02/2015 Completed at [facility] COLONOSCOPY FLX DX W/COLLJ SPEC WHEN PFRMD 07/11/12 Colonoscopy COLONOSCOPY FLX DX W/COLLJ SPEC WHEN PFRMD 02/24/2017 Colonoscopy COLONOSCOPY W/BIOPSY SINGLE/MULTIPLE 03/29/06 ESOPHAGOGASTRODUODENOSCOPY TRANSORAL DIAGNOSTIC 02/24/2017 EGD [facility] W/O FACETEC FORAMOT/DSC 05/[address] Cole PAST SURGICAL HISTORY OF Right 2007 knee surgery RPR [place] VAGINALIS HYDROCELE BOTTLE TYPE STENT PLACEMENT 08/2010 [facility] VASECTOMY UNI/BI SPX W/POSTOP SEMEN EXAMS Family History FAMILY HISTORY Problem Relation Age of Onset Heart Brother valvular heart disease Heart Brother valvular heart disease Heart Brother valvular heart diease Hypertension Sister COPD Father Stroke Father Heart Mother Patient Allergies ALLERGIES Allergen Reactions Lyrica [Pregabalin] Swelling B/L hand swelling Norflex [Orphenadri* GI Upset Vicodin [Hydrocodon* nightmares Neurontin [Gabapent* Swelling Feels that he does not have a true allergy to this medication. States he had swelling, not rash. Current Medications Current Outpatient Medications on File Prior to Visit Medication Sig propranolol (INDERAL) 20 mg tablet Take 1 tablet by mouth two times a day. amLODIPine (NORVASC) 5 mg tablet Take 1 tablet by mouth two times a day. clopidogrel (PLAVIX) 75 mg tablet Take 1 tablet by mouth once daily. FLUoxetine (PROZAC) 40 mg capsule Take 1 capsule by mouth once daily. cyclobenzaprine (FLEXERIL) 10 mg tablet Take 1 tablet by mouth three times a day as needed for muscle spasm. amoxicillin (AMOXIL) 500 mg capsule 4 capsules 1 hours prior to dental procedure. rosuvastatin (CRESTOR) 10 mg tablet Take 1 tablet by mouth daily at bedtime. oxyCODONE IR (ROXICODONE) 5 mg immediate release tablet EVERY 6 HOURS NEEDED lisinopril (PRINIVIL) 10 mg tablet Take 1 tablet by mouth twice daily. Dr. Kramer nitroglycerin sublingual (NITROSTAT) 0.4 mg SL tablet Dissolve 1 tablet under the tongue every 5 minutes as needed for chest pain. acetaminophen (TYLENOL EXTRA STRENGTH) 500 mg tablet Take 1 tablet by mouth every 6 hours as needed for pain. multivitamin tablet Take 1 tablet by mouth once daily. No current facility-administered medications on file prior to visit. Social History Social History Tobacco Use Smoking status: Former Cu (more content not included)...[facility]01-06-2025 Miscellaneous Notes* Telephone Encounter - George Vaughan MD - 05/27/2024 5:54 PM EST OK to refill as ordered George Vaughan MD * Telephone Encounter - Martha Inman - 05/27/2024 3:28 PM EST Prescription Refill Information The patient has been identified by name and date of : Yes Caregiver verified no other encounters exist for this prescription request: Yes Caregiver confirmed with patient/requestor that no other refills are due, in the near future, with this provider at this time: Yes The last office visit in the department: 12/30/23 Does the patient have a future office visit with this provider/department: Yes Requested Prescriptions Pending Prescriptions Disp Refills propranolol (INDERAL) 20 mg tablet 180 tablet 3 Sig: Take 1 tablet by mouth two times a day. amLODIPine (NORVASC) 5 mg tablet 180 tablet 3 Sig: Take 1 tablet by mouth two times a day. Martha Andrade [facility] May 27, 2024 3:29 PM [facility] Telephone encounter Note * Telephone Encounter - George Vaughan MD - 05/27/2024 5:54 PM EST OK to refill as ordered George Vaughan MD [facility]01-06-2025 Telephone encounter Note* Telephone Encounter - [place] Martha Lobo - 05/27/2024 3:28 PM EST Prescription Refill Information The patient has been identified by name and date of : Yes Caregiver verified no other encounters exist for this prescription request: Yes Caregiver confirmed with patient/requestor that no other refills are due, in the near future, with this provider at this time: Yes The last office visit in the department: 12/30/23 Does the patient have a future office visit with this provider/department: Yes Requested Prescriptions Pending Prescriptions Disp Refills propranolol (INDERAL) 20 mg tablet 180 tablet 3 Sig: Take 1 tablet by mouth two times a day. amLODIPine (NORVASC) 5 mg tablet 180 tablet 3 Sig: Take 1 tablet by mouth two times a day. Martha Chappelling [facility] May 27, 2024 3:29 PM [facility]12-26-2024 NoteHNO ID: [id number] Author: AMA BRIAN APRN.[employer] Service: ? Author Type: Nurse Practitioner Type: Progress Notes Filed: 05/16/2024 15:43 Note Text: Subjective HPI HPI Rony Monzon is a 83 year old male who presents today for CC of left ear bleeding, no pain. This started 1 week ago. Has tried nothing for relief. Symptoms are worsened by nothing. Risk factors uses qtips regularly, also wears hearing aids daily. .Patient presents with: Ear Problem: Blood in L ear x1 week, no pain PAST MEDICAL HISTORY Diagnosis Date Adjustment disorder with depressed mood Anemia Benign neoplasm of colon Coronary artery disease Diabetes (HCC) Essential hypertension, benign Gallbladder polyp needs repeat ultrasound in 06/06 Impaired fasting glucose Internal hemorrhoids without mention of complication Other and unspecified hyperlipidemia Personal history of colonic polyps PAST SURGICAL HISTORY Procedure Laterality Date APPENDECTOMY ARTHRP ACETBLR/PROX FEM PROSTC AGRFT/ALGRFT Right 08/08/2018 Dr. Charly Suh CARDIAC CATH N/A 02/02/2015 Completed at [facility] COLONOSCOPY FLX DX W/COLLJ SPEC WHEN PFRMD 07/11/12 Colonoscopy COLONOSCOPY FLX DX W/COLLJ SPEC WHEN PFRMD 02/24/2017 Colonoscopy COLONOSCOPY W/BIOPSY SINGLE/MULTIPLE 03/29/06 ESOPHAGOGASTRODUODENOSCOPY TRANSORAL DIAGNOSTIC 02/24/2017 EGD [place] W/O FACETEC FORAMOT/DSC 1/[address] Cole PAST SURGICAL HISTORY OF Right 2007 knee surgery RPR [place] VAGINALIS HYDROCELE BOTTLE TYPE STENT PLACEMENT 08/2010 [facility] VASECTOMY UNI/BI SPX W/POSTOP SEMEN EXAMS ALLERGIES Lyrica [Pregabalin], Norflex [Orphenadrine Citrate], Vicodin [Hydrocodone-Acetaminophen], and Neurontin [Gabapentin] MEDICATIONS ofloxacin (FLOXIN) 0.3 % otic solution Use 10 Drops in the left ear once daily for 7 days. clopidogrel (PLAVIX) 75 mg tablet Take 1 tablet by mouth once daily. FLUoxetine (PROZAC) 40 mg capsule Take 1 capsule by mouth once daily. propranolol (INDERAL) 20 mg tablet Take 1 tablet by mouth two times a day. cyclobenzaprine (FLEXERIL) 10 mg tablet Take 1 tablet by mouth three times a day as needed for muscle spasm. amoxicillin (AMOXIL) 500 mg capsule 4 capsules 1 hours prior to dental procedure. rosuvastatin (CRESTOR) 10 mg tablet Take 1 tablet by mouth daily at bedtime. amLODIPine (NORVASC) 5 mg tablet Take 1 tablet by mouth two times a day. oxyCODONE IR (ROXICODONE) 5 mg immediate release tablet EVERY 6 HOURS NEEDED lisinopril (PRINIVIL) 10 mg tablet Take 1 tablet by mouth twice daily. Dr. Kramer nitroglycerin sublingual (NITROSTAT) 0.4 mg SL tablet Dissolve 1 tablet under the tongue every 5 minutes as needed for chest pain. acetaminophen (TYLENOL EXTRA STRENGTH) 500 mg tablet Take 1 tablet by mouth every 6 hours as needed for pain. multivitamin tablet Take 1 tablet by mouth once daily. FAMILY HISTORY Problem Relation Age of Onset Heart Brother valvular heart disease Heart Brother valvular heart disease Heart Brother valvular heart diease Hypertension Sister COPD Father Stroke Father Heart Mother Social History Tobacco Use Smoking status: Former Current packs/day: 0.00 Types: Cigarettes, Pipe Start date: 1962 Quit date: 1981 Years since quittin.0 Smokeless tobacco: Former Quit date: 05/22/1981 Tobacco comments: Quit in 1981 Vaping Use Vaping status: Never Used Substance Use Topics Alcohol use: No Drug use: No ROS Objective Blood pressure 148/72, pulse 60, temperature 36.3 ?C (97.4 ?F), resp. rate 18, weight 99.6 kg (219 lb 9.3 oz), SpO2 97%. Physical Exam Constitutional: General: He is not in acute distress. Appearance: He is not toxic-appearing or diaphoretic. HENT: Head: Normocephalic and atraumatic. Right Ear: Hearing, tympanic membrane, ear canal and external ear normal. Left Ear: Hearing, tympanic membrane and external ear normal. Ears: Comments: Abrasion, scabbed. No bleeding,erythema, exudates. Pulmonary: Effort: Pulmonary effort is normal. No accessory muscle usage or respiratory distress. Neurological: Mental Status: He is alert and oriented to person, place, and time. ASSESSMENT/PLAN: 1. Abrasion of left ear canal, initial encounter - ICD9: 910.0, ICD10: S00.412A I discussed proper ear hygiene. Will cover with atb F/u with ENT if s/s - OFLOXACIN 0.3 % EAR DROPS Ama Brian APRN.[facility]12-26-2024 History of Present illness Narrative* Ama Brian APRN.[employer] - 05/16/2024 3:13 PM EST Subjective HPI HPI Rony Monzon is a 83 year old male who presents today for CC of left ear bleeding, no pain. This started 1 week ago. Has tried nothing for relief. Symptoms are worsened by nothing. Risk factorsuses qtips regularly, also wears hearing aids daily. .Patient presents with: Ear Problem: Blood in L ear x1 week, no pain PAST MEDICAL HISTORY Diagnosis Date Adjustment disorder with depressed mood Anemia Benign neoplasm of colon Coronary artery disease Diabetes (HCC) Essential hypertension, benign Gallbladder polyp needs repeat ultrasound in 06/06 Impaired fasting glucose Internal hemorrhoids without mention of complication Other and unspecified hyperlipidemia Personal history of colonic polyps PAST SURGICAL HISTORY Procedure Laterality Date APPENDECTOMY ARTHRP ACETBLR/PROX FEM PROSTC AGRFT/ALGRFT Right 08/08/2018 Dr. Charly Suh CARDIAC CATH N/A 02/02/2015 Completed at [facility] COLONOSCOPY FLX DX W/COLLJ SPEC WHEN PFRMD 07/11/12 Colonoscopy COLONOSCOPY FLX DX W/COLLJ SPEC WHEN PFRMD 02/24/2017 Colonoscopy COLONOSCOPY W/BIOPSY SINGLE/MULTIPLE 03/29/06 ESOPHAGOGASTRODUODENOSCOPY TRANSORAL DIAGNOSTIC 02/24/2017 EGD [place] W/O FACETEC FORAMOT/DSC 1/[address] Cole PAST SURGICAL HISTORY OF Right 2007 knee surgery RPR [place] VAGINALIS HYDROCELE BOTTLE TYPE STENT PLACEMENT 08/2010 [facility] VASECTOMY UNI/BI SPX W/POSTOP SEMEN EXAMS ALLERGIES Lyrica [Pregabalin], Norflex [Orphenadrine Citrate], Vicodin [Hydrocodone-Acetaminophen],and Neurontin [Gabapentin] MEDICATIONS ofloxacin (FLOXIN) 0.3 % otic solution Use 10 Drops in the left ear once daily for 7 days. clopidogrel (PLAVIX) 75 mg tablet Take 1 tablet by mouth once daily. FLUoxetine (PROZAC) 40 mg capsule Take 1 capsule by mouth once daily. propranolol (INDERAL) 20 mg tablet Take 1 tablet by mouth two times a day. cyclobenzaprine (FLEXERIL) 10 mg tablet Take 1 tablet by mouth three times a day as needed for muscle spasm. amoxicillin (AMOXIL) 500 mg capsule 4 capsules 1 hours prior to dental procedure. rosuvastatin (CRESTOR) 10 mg tablet Take 1 tablet by mouth daily at bedtime. amLODIPine (NORVASC) 5 mg tablet Take 1 tablet by mouth two times a day. oxyCODONE IR (ROXICODONE) 5 mg immediate release tablet EVERY 6 HOURS NEEDED lisinopril (PRINIVIL) 10 mg tablet Take 1 tablet by mouth twice daily. Dr. Kramer nitroglycerin sublingual (NITROSTAT) 0.4 mg SL tablet Dissolve 1 tablet under the tongue every 5 minutes as needed for chest pain. acetaminophen (TYLENOL EXTRA STRENGTH) 500 mg tablet Take 1 tablet by mouth every 6 hours as neededfor pain. multivitamin tablet Take 1 tablet by mouth once daily. FAMILY HISTORY Problem Relation Age of Onset Heart Brother valvular heart disease Heart Brother valvular heart disease Heart Brother valvular heart diease Hypertension Sister COPD Father Stroke Father Heart Mother Social History Tobacco Use Smoking status: Former Current packs/day: 0.00 Types: Cigarettes, Pipe Start date: 1961 Quit date: 1981 Years since quittin.0 Smokeless tobacco: Former Quit date: 05/22/1981 Tobacco comments: Quit in 1981 Vaping Use Vaping status: Never Used Substance Use Topics Alcohol use: No Drug use: No ROS Objective Blood pressure 148/72, pulse 60, temperature 36.3 C (97.4 F), resp. rate 18, weight 99.6 kg (219 lb9.3 oz), SpO2 97%. Physical Exam Constitutional: General: He is not in acute distress. Appearance: He is not toxic-appearing or diaphoretic. HENT: Head: Normocephalic and atraumatic. Right Ear: Hearing, tympanic membrane, ear canal and external ear normal. Left Ear: Hearing, tympanic membrane and external ear normal. Ears: Comments: Abrasion, scabbed. No bleeding,erythema, exudates. Pulmonary: Effort: Pulmonary effort is normal. No accessory muscle usage or respiratory distress. Neurological: Mental Status: He is alert and oriented to person, place, and time. ASSESSMENT/PLAN: 1. Abrasion of left ear canal, initial encounter - ICD9: 910.0, ICD10: S00.412A I discussed proper ear hygiene. Will cover with atb F/u with ENT if s/s - OFLOXACIN 0.3 % EAR DROPS Ama Brian APRN.THANG documented in this encounterAden[facility]12-[facility]24 Telephone encounter Note * Telephone Encounter - Jessy Weldon PA-C - 05/01/2024 8:16 AM EST Are we able to reach out to Dr. Arguello's office and ask if he would be amenable to this patient starting florinef for orthostatic hypotension. Jessy Weldon PA-C [facility]12-11-2024 Miscellaneous Notes* Telephone Encounter - Jessy Weldon PA-C - 05/01/2024 8:16 AM EST Are we able to reach out to Dr. Arguello's office and ask if he would be amenable to this patient starting florinef for orthostatic hypotension. Jessy Weldon PA-C documented in this encounterAdena [facility] Center12-10-2024 Instructions* Patient Instructions* Jessy Weldon PA-C - 04/30/2024 1:01 PM EST Increase water intake to 60 ounces a day Will reach out to Dr. Strange about starting florinef Compression socks, increase exercise at home Follow up in 3-4 months documented in this encounterAdena Pike [facility] Center12-10-2024 NoteHNO ID: [id number] Author: JESSY WELDON PA-C Service: ? Author Type: Physician Systems Support Specialist Type: Progress Notes Filed: 04/30/2024 13:28 Note Text: ESTABLISHED PATIENT VISIT Last visit: 01/26/[address] Strange ASSESSMENT/PLAN: 1. Lightheaded - ICD9: 780.4, ICD10: R42 (primary diagnosis) 2. Orthostatic hypotension - ICD9: 458.0, ICD10: I95.1 3. Recurrent falls - ICD9: V15.88, ICD10: R29.6 4. Weakness of both lower extremities - ICD9: 729.89, ICD10: R29.898 5. 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 Spinal stenosis of cervical region - ICD9: 723.0, ICD10: M48.02 7. Spinal stenosis of lumbar region, unspecified whether neurogenic 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 present - ICD9: 724.02, ICD10: M48.061 Patient with history of recurrent falls that I suspect are multifactorial including known spine disease as well as history of orthostatic hypotension. At this time, patient's primary complaint is lightheadedness and loss of balance or falls associated with position change of sitting to standing. Suspect due to orthostatic hypotension with drop in BP noted today with position change, but no change in HR remaining at ~60 BPM. Component of orthostatic hypotension could be decreased water intake and pt encouraged to try and drink more (instructions on appropriate intake provided). Also question if component of autonomic dysfunction associated with known C spine cord myelomalacia and/or neuropathy (small fiber). Before initiating therapy, and given cardiac history, would like opinion of human resource intern Dr. Arguello. Question if benefit in lowering blood pressure dosing including possible beta anderson to allow for cardiac response toposition change. If felt BP meds should not be changed, then would like opinion in regards to starting Florinef. Pt does have compression stockings but does not like using - encouraged he try again. As for known spine disease, encouraged pt to follow up with his surgeons at [facility]. 8. History of stroke - ICD9: V12.54, ICD10: Z86.73 Patient with no clinical symptoms. Noted on brain imaging. On Plavix and statin. No additional recs at this time with goal BP <140/90 and goal glucose <140. 9. Headaches - ICD9: 784.0, ICD10: R51.9 Resolved. Landon Strange MD CHIEF COMPLAINT: follow up HISTORY OF PRESENT ILLNESS: Rony Monzon is a 83 year old male, There were no vitals taken for this visit. with a PMH significant for tremor, HTN, HLD, CAD, REHAN, DDD, depression, WILY, vasovagal syncope . Last saw Dr. Strange on 01/26/24 for LH, tremor, unsteadiness, falls. Likely multifactorial due to spine and orthostatic HOTN. Reached out to Dr. Arguello about decreasing BP meds, maybe start florinef. Patient presents with his for follow-up appointment. Notes that he has had some improvement since last appointment. Has a rollator and has not had a fall. Still having daily doses of lightheadedness and occasional episodes of presyncope. These improve instantly if he sits down. Also notes that with these lightheaded episodes she does get short of breath but again improves if she sits back down. Drinking about 4 glasses of water a day with a glass of milk, no tea or coffee and drinks a soda about twice a week. Notes that Dr. Saucedo did not want adjust his blood pressure medications as he does still have hypertension, blood pressure was 146/81 today. Has been wearing compression socks with minimal benefits, notes it is difficult to get them on. Tremor is about the same. Notes that his been very fatigued lately, feels generalized weakness as well. Again no falls, but is not very physically active. Notes that he primarily sits down all day, goes to the bathroom occasionally but his house is not very big. They did bring their treadmill up from the basement but he is only been on it a few times. No other new concerns or symptoms today. REVIEW OF SYSTEMS GENERAL:No weight loss, malaise or fevers. HEENT:Negative for frequent or significant headaches, No changes in hearing or vision, no nose bleeds or other nasal problems NECK:Negative for lumps, goiter, pain and significant neck swelling RESPIRATORY: Negative for cough, wheezing or shortness of breath. CARDIOVASCULAR: Negative for chest pain, leg swelling or palpitations. GASTROINTESTINAL: Negative for abdominal discomfort, blood in stools or black stools or change in bowel habits GENITOURINARY: No history of dysuria, frequency or incontinence MUSCULOSKELETAL: Negative for joint pain or swelling, back pain or muscle pain. NEUROLOGIC:Negative for focal numbness or weakness, headaches and dizziness or syncope, vision changes, speech/languag changes - EXCEPT that as per HPI above. SKIN:Negative for lesions, rash, and itching. PSYCHIATRIC: Negative for sleep disturbance, mood disorder and recent psychosocial stressors. HEMATOLOGIC/LYMPHATIC/IMMUNOLOGIC:Negative for prolonged bleeding, bruising easily or swoll (more content not included)...[facility] 04-30-2024 History of Present illness Narrative* Jessy Weldon PA-C - 04/30/2024 12:25 PM EST ESTABLISHED PATIENT VISIT Last visit: 01/26/[address] Strange ASSESSMENT/PLAN: 1. Lightheaded - ICD9: 780.4, ICD10: R42 (primary diagnosis) 2. Orthostatic hypotension - ICD9: 458.0, ICD10: I95.1 3. Recurrent falls - ICD9: V15.88, ICD10: R29.6 4. Weakness of both lower extremities - ICD9: 729.89, ICD10: R29.898 5. 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 Spinal stenosis of cervical region - ICD9: 723.0, ICD10: M48.02 7. Spinal stenosis of lumbar region, unspecified whether neurogenic 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 present - ICD9: 724.02, ICD10: M48.061 Patient with history of recurrent falls that I suspect are multifactorial including known spine disease as well as history of orthostatic hypotension. At this time, patient's primary complaint is lightheadedness and loss of balance or falls associated with position change of sitting to standing. Suspect due to orthostatic hypotension with drop in BP noted today with position change, but no changein HR remaining at ~60 BPM. Component of orthostatic hypotension could be decreased water intake and pt encouraged to try and drink more (instructions on appropriate intake provided). Also question if component of autonomic dysfunction associated with known C spine cord myelomalacia and/or neuropathy (small fiber). Before initiating therapy, and given cardiac history, would like opinion of human resource intern Dr. Arguello. Question if benefit in lowering blood pressure dosing including possible beta anderson to allow for cardiac response to position change. If felt BP meds should not be changed, then would like opinion in regards to starting Florinef. Pt does have compression stockings but does not like using - encouraged he try again. As for known spine disease, encouraged pt to follow up with his surgeons at [facility]. 8. History of stroke - ICD9: V12.54, ICD10: Z86.73 Patient with no clinical symptoms. Noted on brain imaging. On Plavix and statin. No additional recsat this time with goal BP <140/90 and goal glucose <140. 9. Headaches - ICD9: 784.0, ICD10: R51.9 Resolved. Landon Strange MD CHIEF COMPLAINT: follow up HISTORY OF PRESENT ILLNESS: Rony Monzon is a 83 year old male, There were no vitals taken for this visit. with a PMH significant for tremor, HTN, HLD, CAD, REHAN, DDD, depression, WILY, vasovagal syncope . Last saw Dr. Strange on 01/26/24 for LH, tremor, unsteadiness, falls. Likely multifactorial due to spine and orthostatic HOTN. Reached out to Dr. Arguello about decreasing BP meds, maybe start florinef. Patient presents with his for follow-up appointment. Notes that he has had some improvement since last appointment. Has a rollator and has not had a fall. Still having daily doses of lightheadedness and occasional episodes of presyncope. These improve instantly if he sits down. Also notes thatwith these lightheaded episodes she does get short of breath but again improves if she sits back down. Drinking about 4 glasses of water a day with a glass of milk, no tea or coffee and drinks a sodaabout twice a week. Notes that Dr. Saucedo did not want adjust his blood pressure medications as he does still have hypertension, blood pressure was 146/81 today. Has been wearing compression socks withminimal benefits, notes it is difficult to get them on. Tremor is about the same. Notes that his been very fatigued lately, feels generalized weakness as well. Again no falls, but is not very physically active. Notes that he primarily sits down all day, goes to the bathroom occasionally but his house is not very big. They did bring their treadmill up from the basement but he is only been on it a few times. No other new concerns or symptoms today. REVIEW OF SYSTEMS GENERAL:No weight loss, malaise or fevers. HEENT:Negative for frequent or significant headaches, No changes in hearing or vision, no nose bleeds or other nasal problems NECK:Negative for lumps, goiter, pain and significant neck swelling RESPIRATORY: Negative for cough, wheezing or shortness of breath. CARDIOVASCULAR: Negative for chest pain, leg swelling or palpitations. GASTROINTESTINAL: Negative for abdominal discomfort, blood in stools or black stools or change in bowel habits GENITOURINARY: No history of dysuria, frequency or incontinence MUSCULOSKELETAL: Negative for joint pain or swelling, back pain or muscle pain. NEUROLOGIC:Negative for focal numbness or weakness, headaches and dizziness or syncope, vision changes, speech/languag changes - EXCEPT that as per HPI above. SKIN:Negative for lesions, rash, and itching. PSYCHIATRIC: Negative for sleep disturbance, mood disorder and recent psychosocial stressors. HEMATOLOGIC/LYMPHATIC/IMMUNOLOGIC:Negative for prolonged bleeding, bruising easily or swollen nodes. ENDOCRINE: Negative for cold or heat intolerance, polyuria, polydipsia and goiter. The remainder of the ROS was reviewed and is negative. LAB/IMAGING: Those performed since patient's last visit have been reviewed. MEDICATIONS: clopidogrel (PLAVIX) 75 mg tablet Take 1 tablet by mouth once daily. FLUoxetine (PROZAC) 40 mg capsule Take 1 capsule by mouth once daily. propranolol (INDERAL) 20 mg tablet Take 1 tablet by mouth two times a day. cyclobenzaprine (FLEXERIL) 10 mg tablet Take 1 tablet by mouth three times a day as needed for muscle spasm. amoxicillin (AMOXIL) 500 mg capsule 4 capsules 1 hours prior to dental procedure. rosuvastatin (CRESTOR) 10 mg tablet Take 1 tablet by mouth daily at bedtime. amLODIPine (NORVASC) 5 mg tablet Take 1 tablet by mouth two times a day. oxyCODONE IR (ROXICODONE) 5 mg immediate release tablet EVERY 6 HOURS NEEDED lisinopril (PRINIVIL) 10 mg tablet Take 1 tablet by mouth twice daily. Dr. Kramer nitroglycerin sublingual (NITROSTAT) 0.4 mg SL tablet Dissolve 1 tablet under the tongue every 5 minutes as needed for chest pain. acetaminophen (TYLENOL EXTRA STRENGTH) 500 mg tablet Take 1 tablet by mouth every 6 hours as neededfor pain. multivitamin tablet Take 1 tablet by mouth once daily. HISTORIES PAST MEDICAL HISTORY Diagnosis Date Adjustment disorder with depressed mood Anemia Benign neoplasm of colon Coronary artery disease Diabetes (HCC) Essential hypertension, benign Gallbladder polyp needs repeat ultrasound in 06/06 Impaired fasting glucose Internal hemorrhoids without mention of complication Other and unspecified hyperlipidemia Personal history of colonic polyps FAMILY HISTORY Problem Relation Age of Onset Heart Brother valvular heart disease Heart Brother valvular heart disease Heart Brother valvular heart diease Hypertension Sister COPD Father Stroke Father Heart Mother SOCIAL HISTORY Social History Tobacco Use Smoking status: Former Current packs/day: 0.00 Types: Cigarettes, Pipe Start date: 1962 Quit date: 1981 Years since quittin.9 Smokeless tobacco: Former Quit date: 05/22/1981 Tobacco comments: Quit in 1981 Vaping Use Vaping status: Never Used Substance Use Topics Alcohol use: No Drug use: No PHYSICAL EXAMINATION BP 146/81 (BP Site: Left Arm, BP Position: Sitting) Pulse 67 Wt 96.8 kg (213 lb 6.4 oz) SpO2 96% BMI 28.15 kg/m GENERAL EXAM: General appearance: NAD, pleasant. HEENT: NC/AT, nasal congestion absent, no oral lesions, membranes moist. NECK: No masses, supple. Lungs: Breathing comfortably Extr: Moves all extremities without difficulty Skin: Cool to touch. No rash. NEUROLOGICAL EXAM: General: Awake, alert, oriented x3 (person,place,time), speech fluent, no dysarthria; comprehension, naming, repetition intact. Short and intermission coordinator memory intact. CN: PERRL, fundi appear normal including no evidence of papilledema, EOMI and without nystagmus, VFF to confrontation, facial sensation and strength are normal and symmetric, hearing is poor, palate and tongue movements are intact and symmetric. SCM and trapezius strength normal. Motor: Normal tone, bulk and strength (5/5) bilaterally (throughout extremities x4). Reflexes: Decreased reflexes throughout lower extremities. Coordination: FNF intact. Decreased rapid alternating movements in the right upper extremity. Intention tremor present to bilateral upper extremities, worse on the right Sensation: Decreased sensation to vibration in the lower extremities, intact in the upper extremities. Gait: Ambulates with a rollator, slight shuffle. Assessment and Plan: ASSESSMENT/PLAN: 1. Malaise and fatigue - ICD9: 780.79, ICD10: R53.81, R53.83 (primary diagnosis) Patient reporting some worsening fatigue, generalized weakness. No falls. Patient with full strength on exam. Has basic blood work ordered, will add additional B12 level, folate and vitamin D. Also notes that he is not very physically active, primarily sits down throughout the day, likely deconditio cierra. Discussed at length the importance of physical exercise, deferring PT evaluation at this timebut would like to increase physical exercise at home. 2. Lightheaded - ICD9: 780.4, ICD10: R42 3. Recurrent falls - ICD9: V15.88, ICD10: R29.6 4. Orthostatic hypotension - ICD9: 458.0, ICD10: I95.1 5. Weakness of both lower extremities - ICD9: 729.89, ICD10: R29.898 Symptoms likely multifactoral including spinal stenosis, orthostatic hypotension. Patient Without any falls since last appointment, using a rollator with good success. Still having daily episodes of lightheadedness and occasional episodes of presyncope, but no episodes of syncope. Symptoms improved significantly if he sits back down. Having some shortness of breath with this as well. Originally, when seen by Dr. Strange last January there was thought of decreasing blood pressure medications dueto concerns of being overmedicated causing low blood pressures. However, Dr. Arguello does not want adjust medication at this time due to hypertension. Did discuss possibly starting Florinef, will reachout to Dr. Strange about confirming this medication before starting. Only drinking about 4 glasses ofwater a day, discussed importance of increasing hydration as well. Patient and agree and understand. No new symptoms would warrant additional up at this time. Encouraged conservative therapy as well. Patient to follow-up in 3 months or sooner should any symptoms change or worsen. Patient and agreeable to treatment plan of care at this time. Jessy Weldon PA-C I spent a total of 35 minutes on the date of the service which included preparing to see the patient, [id number] patient care, completing clinical documentation, obtaining and/or reviewing separately obtained history, performing a medically appropriate examination, counseling and educating the pat ient/family/caregiver, and ordering medications, tests, or procedures. This document has been created with the use of voice recognition technology. It may contain inaccuracies: (e.g. misspellings, inaccurate syntax or word sense) that have escaped review. documented in this encounterAden[facility]11-[facility]24 Telephone encounter Note * Telephone Encounter - Charlene Eckert RN - 03/29/2024 3:33 PM EST Spoke to Halima who recommended having this form filled out by Jessy Weldon PA-C or Dr. Strange.Halima has not seen this patient since since she no longer practices in [place]. Sent form via fax to [place] at [phone]. [facility]11-08-[facility] Miscellaneous Notes* Telephone Encounter - Charlene Eckert RN - 03/29/2024 3:33 PM EST Spoke to Halima who recommended having this form filled out by Jessy Weldon PA-C or Dr. Strange.Halima has not seen this patient since since she no longer practices in [place]. Sent form via fax to [place] at [phone]. * Telephone Encounter - Charlene Eckert RN - 03/29/2024 3:19 PM EST Received fax from [facility] requesting to hold patient's Plavix for 7 days. Procedure date is 04-12-24. Form given to provider for review. documented in this encounterAdena [facility]11-08-2024 Telephone encounter Note * Telephone Encounter - Charlene Eckert RN - 03/29/2024 3:19 PM EST Received fax from [facility] requesting to hold patient's Plavix for 7 days. Procedure date is 04-12-24. Form given to provider for review. [facility]10-09-[facility] Telephone encounter Note* Telephone Encounter - Sindy Castrejon LPN - 02/28/2024 1:45 PM EDT Prescription Refill Information The patient has been identified by name and date of : Yes Caregiver verified no other encounters exist for this prescription request: Yes Caregiver confirmed with patient/requestor that no other refills are due, in the near future, with this provider at this time: Yes The last office visit in the department: 12/30/23 Does the patient have a future office visit with this provider/department: Yes Requested Prescriptions Pending Prescriptions Disp Refills clopidogrel (PLAVIX) 75 mg tablet 90 tablet 3 Sig: Take 1 tablet by mouth once daily. FLUoxetine (PROZAC) 40 mg capsule 90 capsule 3 Sig: Take 1 capsule by mouth once daily. propranolol (INDERAL) 20 mg tablet 180 tablet 0 Sig: Take 1 tablet by mouth two times a day. Sindy Castrejon LPN February 28, 2024 1:45 PM [facility]10-09-2024 Miscellaneous Notes* Telephone Encounter - Sindy Castrejon LPN - 02/28/2024 1:45 PM EDT Prescription Refill Information The patient has been identified by name and date of : Yes Caregiver verified no other encounters exist for this prescription request: Yes Caregiver confirmed with patient/requestor that no other refills are due, in the near future, with this provider at this time: Yes The last office visit in the department: 12/30/23 Does the patient have a future office visit with this provider/department: Yes Requested Prescriptions Pending Prescriptions Disp Refills clopidogrel (PLAVIX) 75 mg tablet 90 tablet 3 Sig: Take 1 tablet by mouth once daily. FLUoxetine (PROZAC) 40 mg capsule 90 capsule 3 Sig: Take 1 capsule by mouth once daily. propranolol (INDERAL) 20 mg tablet 180 tablet 0 Sig: Take 1 tablet by mouth two times a day. Sindy Castrejon LPN February 28, 2024 1:45 PM documented in this encounterAdena [facility] Center10-04-2024 Telephone encounter Note * Telephone Encounter - Ana Tong MA - 02/23/2024 10:01 AM EDT Message left on machine that placard is at med rec for clam picker. Also notified via [employer]. Ana Tong MA [facility]10-04-2024 Miscellaneous Notes* Telephone Encounter - Ana Tong MA - 02/23/2024 10:01 AM EDT Message left on machine that placard is at med rec for clam picker. Also notified via [employer]. Ana Tong MA * Telephone Encounter - Ana Tong MA - 02/22/2024 10:00 AM EDT Awaiting response from pt on if he wants to clam picker or have mailed. Ana Tong MA * Telephone Encounter - George Vaughan MD - 02/22/2024 8:46 AM EDT Rx for handicap parking placard printed George Vaughan MD documented in this encounterAdena [facility]10-03-2024 Telephone encounter Note * Telephone Encounter - Ana Tong MA - 02/22/2024 10:00 AM EDT Awaiting response from pt on if he wants to clam picker or have mailed. Ana Tong MA [facility]10-03-2024 Telephone encounter Note* Telephone Encounter - George Vaughan MD - 02/22/2024 8:46 AM EDT Rx for handicap parking placard printed George Vaughan MD [facility]09-06-2024 NoteHNO ID: [id number] Author: NICK AVILA OCCA Service: ? Author Type: Medical Representative Type: Progress Notes Filed: 01/26/2024 14:01 Note Text: Office visit note faxed to Dr. Arguello as requested regarding concerns for autonomic dysfunction and change in BP meds. [facility] History of Present illness Narrative* Nick Avila OCCA - 01/26/2024 2:00 PM EDT Office visit note faxed to Dr. Arguello as requested regarding concerns for autonomic dysfunction and change in BP meds. VINCENT Landeros * Landon Strange Jr., MD - 01/26/2024 11:01 AM EDT ESTABLISHED PATIENT VISIT CHIEF COMPLAINT: Follow Up (first time seeing patient, but previously seen in dept). HISTORY OF PRESENT ILLNESS: Rony Monzon is a 83 year old male, BMI 28.42 kg/m2 with a PMH significant for and per last office visit with Julio BAIRD on 10/18/23: 1. Tremor of right hand - ICD9: 781.0, ICD10: R25.1 (primary diagnosis) Tremor stable, no significant change. Not present at rest on exam but present bilateral upper extremities with intention, slightly worse on the right. Normal tone of the upper extremities. However, patient with some decreased rapid alternating movements on the right upper and lower extremity and states the symptoms feel slower on the side. Patient also reporting some chronic constipation, but this is improved after stopping his oxycodone. Reporting some hypophonia, orthostatic hypotension and handwriting change. Unclear etiology for symptoms but will have patient follow-up with physician due to concerns of possible parkinsonism. Encouraged conservative therapy for tremor including wrist weights and continuing propranolol as prescribed, 20 mg twice daily. 2. Frequent falls - ICD9: V15.88, ICD10: R29.6 3. Spinal stenosis of cervical region - ICD9: 723.0, ICD10: M48.02 4. Spinal stenosis of lumbar region, unspecified whether neurogenic 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 present - ICD9: 724.02, ICD10: M48.061 Patient with 3 falls since last appointment, and patient attributes this to weakness in his legs, 1 fall his left knee gave out and with 1 fall his right hip gave out. Sustained a left foot fracture from the fall in July and has been recovering from this. Falls are likely multifactorial, concern for possible parkinsonism as noted above but also patient with some cervical stenosis, followed with neurosurgery and recently had lumbar surgery last winter. does note that he was weak priorto the surgery and feels deconditioning may be playing a role as well to the falls. Falls are neverrelated to lightheadedness or syncope. 5. Lightheadedness - ICD9: 780.4, ICD10: R42 Patient still with occasional lightheadedness, follows with cardiology for orthostatic hypotension.Encouraged conservative therapy, no presyncope or syncope. 6. Cerebrovascular accident (CVA), unspecified mechanism (HCC) - ICD9: 434.91, ICD10: I63.9 No new stroke since last appointment, patient compliant with Plavix 75 mg daily and follows with primary care for risk factor management. Discussed risk factors including blood sugar, blood pressure and cholesterol. Recommendations were given to patient. Patient without any new neurologic symptoms that would warrant additional workup at this time. 7. Headaches - ICD9: 784.0, ICD10: R51.9 No headaches since last appointment, stable. 8. Orthostatic hypotension - ICD9: 458.0, ICD10: I95.1 Sees cardiology. 9. Myelomalacia of cervical cord (HCC) - ICD9: 336.8, ICD10: G95.89 Followed by neurosurgery. Patient agreeable to treatment plan of care at this time, questions were answered. Due to complexity of case and persistent falls, will have patient follow-up with physician, Dr. Strange for further evaluation, 60-minute slot as patient has not been evaluated by Dr. Strange in the past. Patient reports had L spine surgery 1 year ago that was supposed to help him walk but did not do much. Was told it would be 6-12 months to have benefit. Pt feels that the RLE is now getting numb overthe last couple months. Surgery completed at [facility]. Feels like arms are working ok. Known history of mylomalacia in 2000 per pt. Leg weakness started couple years ago. Last MRI C spine on 12/01/2021 per report: 1. 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 STABLE POST SURGICAL CHANGES FROM LAMINECTOMIES 3. NO HIGH-GRADE CENTRAL STENOSIS 4. FORAMINAL STENOSIS REMAINS GREATEST AT SEVERE RIGHT C5-6 When asked about falls states feels like the leg goes out (referring to the left leg). Has had falls both walking and when getting up from a chair. feels walking and then something gives out. Noresidual deficits from stroke -- I never knew I had them. When asked about tremors, states he hasessential tremor. Very infrequent headaches. Reports handwriting is more sloppy and perhaps smaller. Still has lightheadedness with positional changes. Pt now following with Dr. Arguello through cardiology. worries that patient is dehydrated. Patient's biggest concern is the lightheadedness. Sitting BP 136/78; HR 61 Standing BP 119/75 HR 65 REVIEW OF SYSTEMS GENERAL:No weight loss, malaise or fevers. HEENT:Negative for frequent or significant headaches, No changes in hearing or vision, no nose bleeds or other nasal problems NECK:Negative for lumps, goiter, pain and significant neck swelling RESPIRATORY: Negative for cough, wheezing or shortness of breath. CARDIOVASCULAR: See HPI. GASTROINTESTINAL: Negative for abdominal discomfort, blood in stools or black stools or change in bowel habits GENITOURINARY: No history of dysuria, frequency or incontinence MUSCULOSKELETAL: See HPI. NEUROLOGIC:See HPI. SKIN:Negative for lesions, rash, and itching. LAB/IMAGING: Those performed since patient's last visit have been reviewed. WBC (k/uL) Date Value 11/27/2023 8.90 RBC (m/uL) Date Value 11/27/2023 3.95 (L) Hemoglobin (g/dL) Date Value 11/27/2023 12.2 (L) Hematocrit (%) Date Value 11/27/2023 37.6 (L) MCV (fL) Date Value 11/27/2023 95.2 MCH (pg) Date Value 11/27/2023 30.9 MCHC (g/dL) Date Value 11/27/2023 32.4 RDW-CV (%) Date Value 11/27/2023 13.2 Platelet Count (k/uL) Date Value 11/27/2023 367 MPV (fL) Date Value 11/27/2023 10.7 Glucose (mg/dL) Date Value 11/27/2023 104 (H) BUN (mg/dL) Date Value 11/27/2023 14 Creatinine (mg/dL) Date Value 11/27/2023 1.08 Sodium (mmol/L) Date Value 11/27/2023 137 Potassium (mmol/L) Date Value 11/27/2023 4.4 Chloride (mmol/L) Date Value 11/27/2023 102 CO2 (mmol/L) Date Value 11/27/2023 26 Protein, Total (g/dL) Date Value 11/27/2023 7.0 Albumin (g/dL) Date Value 11/27/2023 3.9 Calcium, Total (mg/dL) Date Value 11/27/2023 9.3 Alkaline Phosphatase (U/L) Date Value 11/27/2023 106 Bilirubin, Total (mg/dL) Date Value 11/27/2023 0.4 AST (U/L) Date Value 11/27/2023 26 ALT (U/L) Date Value 11/27/2023 24 MEDICATIONS: amoxicillin (AMOXIL) 500 mg capsule 4 capsules 1 hours prior to dental procedure. propranolol (INDERAL) 20 mg tablet Take 1 tablet by mouth two times a day. rosuvastatin (CRESTOR) 10 mg tablet Take 1 tablet by mouth daily at bedtime. amLODIPine (NORVASC) 5 mg tablet Take 1 tablet by mouth two times a day. oxyCODONE IR (ROXICODONE) 5 mg immediate release tablet EVERY 6 HOURS NEEDED clopidogrel (PLAVIX) 75 mg tablet Take 1 tablet by mouth once daily. FLUoxetine (PROZAC) 40 mg capsule Take 1 capsule by mouth once daily. lisinopril (PRINIVIL) 10 mg tablet Take 1 tablet by mouth twice daily. Dr. Kramer nitroglycerin sublingual (NITROSTAT) 0.4 mg SL tablet Dissolve 1 tablet under the tongue every 5 minutes as needed for chest pain. acetaminophen (TYLENOL EXTRA STRENGTH) 500 mg tablet Take 1 tablet by mouth every 6 hours as neededfor pain. multivitamin tablet Take 1 tablet by mouth once daily. cyclobenzaprine (FLEXERIL) 10 mg tablet Take 1 tablet by mouth three times a day as needed for muscle spasm. (Patient not taking: Reported on 01/26/2024) HISTORIES PAST MEDICAL HISTORY No date: Adjustment disorder with depressed mood No date: Anemia No date: Benign neoplasm of colon No date: Coronary artery disease No date: Diabetes (HCC) No date: Essential hypertension, benign No date: Gallbladder polyp Comment: needs repeat ultrasound in 06/06 No date: Impaired fasting glucose No date: Internal hemorrhoids without mention of complication No date: Other and unspecified hyperlipidemia No date: Personal history of colonic polyps FAMILY HISTORY Problem Relation Age of Onset Heart Brother valvular heart disease Heart Brother valvular heart disease Heart Brother valvular heart diease Hypertension Sister COPD Father Stroke Father Heart Mother SOCIAL HISTORY Social History Tobacco Use Smoking status: Former Current packs/day: 0.00 Types: Cigarettes, Pipe Start date: 1961 Quit date: 1981 Years since quittin.7 Smokeless tobacco: Former Quit date: 05/22/1981 Tobacco comments: Quit in 1981 Vaping Use Vaping status: Never Used Substance Use Topics Alcohol use: No Drug use: No PHYSICAL EXAMINATION BP 136/78 (BP Site: Right Arm, BP Position: Sitting) Pulse 62 Wt 97.7 kg (215 lb 6.4 oz) GdC141% BMI 28.42 kg/m GENERAL EXAM: General appearance: NAD, pleasant. HEENT: NC/AT, nasal congestion absent, no oral lesions, membranes moist. NECK: ROM nml. Lungs: CTA bilaterally. CV: RRR nl S1, S2. No carotid bruits. Extr: No cyanosis, clubbing or edema. Skin: Cool to touch. NEUROLOGICAL EXAM: General: Awake, alert, oriented x3 (person,place,time), speech fluent, no dysarthria; comprehension, naming, repetition intact. CN: PERRL, fundi with no evidence of papilledema, EOMI and without nystagmus, VFF to confrontation,facial sensation and strength are normal and symmetric, hearing is intact to finger rub bilaterally, palate and tongue movements are intact and symmetric. SCM and trapezius strength normal. Motor: Normal tone, bulk and strength (5/5) bilaterally (throughout extremities x4). Coordination: FNF, SHIRLENE, HTS intact. No tremors. Sensation: Light touch and vibration intact throughout. No evidence of neglect. Gait: Stable with walker with normal stride. No retropulsion. Romberg normal. Assessment and Plan: ASSESSMENT/PLAN: 1. Lightheaded - ICD9: 780.4, ICD10: R42 (primary diagnosis) 2. Orthostatic hypotension - ICD9: 458.0, ICD10: I95.1 3. Recurrent falls - ICD9: V15.88, ICD10: R29.6 4. Weakness of both lower extremities - ICD9: 729.89, ICD10: R29.898 5. 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 Spinal stenosis of cervical region - ICD9: 723.0, ICD10: M48.02 7. Spinal stenosis of lumbar region, unspecified whether neurogenic 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 present - ICD9: 724.02, ICD10: M48.061 Patient with history of recurrent falls that I suspect are multifactorial including known spine disease as well as history of orthostatic hypotension. At this time, patient's primary complaint is lightheadedness and loss of balance or falls associated with position change of sitting to standing. Suspect due to orthostatic hypotension with drop in BP noted today with position change, but no changein HR remaining at ~60 BPM. Component of orthostatic hypotension could be decreased water intake and pt encouraged to try and drink more (instructions on appropriate intake provided). Also question if component of autonomic dysfunction associated with known C spine cord myelomalacia and/or neuropathy (small fiber). Before initiating therapy, and given cardiac history, would like opinion of human resource intern Dr. Arguello. Question if benefit in lowering blood pressure dosing including possible beta anderson to allow for cardiac response to position change. If felt BP meds should not be changed, then would like opinion in regards to starting Florinef. Pt does have compression stockings but does not like using - encouraged he try again. As for known spine disease, encouraged pt to follow up with his surgeons at [facility]. 8. History of stroke - ICD9: V12.54, ICD10: Z86.73 Patient with no clinical symptoms. Noted on brain imaging. On Plavix and statin. No additional recsat this time with goal BP <140/90 and goal glucose <140. 9. Headaches - ICD9: 784.0, ICD10: R51.9 Resolved. Landon Strange MD Follow up 3 months or sooner prn. I spent a total of 46 minutes on the date of the service which included preparing to see the patient, [id number] patient care, completing clinical documentation, obtaining and/or reviewing separately obtained history, performing a medically appropriate examination, counseling and educating the pat ient/family/caregiver, ordering medications, tests, or procedures, independently interpreting results (not separately reported), and communicating results to the patient/family/caregiver. documented in this encounterAdena [facility] Center09-06-2024 NoteHNO ID: [id number] Author: LANDON STRANGE JR, MD Service: ? Author Type: Physician Type: Progress Notes Filed: 01/26/2024 12:29 Note Text: ESTABLISHED PATIENT VISIT CHIEF COMPLAINT: Follow Up (first time seeing patient, but previously seen in dept). HISTORY OF PRESENT ILLNESS: Rony Monzon is a 83 year old male, BMI 28.42 kg/m2 with a PMH significant for and per last office visit with Julio ABIRD on 10/18/23: 1. Tremor of right hand - ICD9: 781.0, ICD10: R25.1 (primary diagnosis) Tremor stable, no significant change. Not present at rest on exam but present bilateral upper extremities with intention, slightly worse on the right. Normal tone of the upper extremities. However, patient with some decreased rapid alternating movements on the right upper and lower extremity and states the symptoms feel slower on the side. Patient also reporting some chronic constipation, but this is improved after stopping his oxycodone. Reporting some hypophonia, orthostatic hypotension and handwriting change. Unclear etiology for symptoms but will have patient follow-up with physician due to concerns of possible parkinsonism. Encouraged conservative therapy for tremor including wrist weights and continuing propranolol as prescribed, 20 mg twice daily. 2. Frequent falls - ICD9: V15.88, ICD10: R29.6 3. Spinal stenosis of cervical region - ICD9: 723.0, ICD10: M48.02 4. Spinal stenosis of lumbar region, unspecified whether neurogenic 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 present - ICD9: 724.02, ICD10: M48.061 Patient with 3 falls since last appointment, and patient attributes this to weakness in his legs, 1 fall his left knee gave out and with 1 fall his right hip gave out. Sustained a left foot fracture from the fall in July and has been recovering from this. Falls are likely multifactorial, concern for possible parkinsonism as noted above but also patient with some cervical stenosis, followed with neurosurgery and recently had lumbar surgery last winter. does note that he was weak prior to the surgery and feels deconditioning may be playing a role as well to the falls. Falls are never related to lightheadedness or syncope. 5. Lightheadedness - ICD9: 780.4, ICD10: R42 Patient still with occasional lightheadedness, follows with cardiology for orthostatic hypotension. Encouraged conservative therapy, no presyncope or syncope. 6. Cerebrovascular accident (CVA), unspecified mechanism (HCC) - ICD9: 434.91, ICD10: I63.9 No new stroke since last appointment, patient compliant with Plavix 75 mg daily and follows with primary care for risk factor management. Discussed risk factors including blood sugar, blood pressure and cholesterol. Recommendations were given to patient. Patient without any new neurologic symptoms that would warrant additional workup at this time. 7. Headaches - ICD9: 784.0, ICD10: R51.9 No headaches since last appointment, stable. 8. Orthostatic hypotension - ICD9: 458.0, ICD10: I95.1 Sees cardiology. 9. Myelomalacia of cervical cord (HCC) - ICD9: 336.8, ICD10: G95.89 Followed by neurosurgery. Patient agreeable to treatment plan of care at this time, questions were answered. Due to complexity of case and persistent falls, will have patient follow-up with physician, Dr. Strange for further evaluation, 60-minute slot as patient has not been evaluated by Dr. Strange in the past. Patient reports had L spine surgery 1 year ago that was supposed to help him walk but did not do much. Was told it would be 6-12 months to have benefit. Pt feels that the RLE is now getting numb over the last couple months. Surgery completed at [facility]. Feels like arms are working ok. Known history of mylomalacia in 2000 per pt. Leg weakness started couple years ago. Last MRI C spine on 12/01/2021 per report: 1. 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 STABLE POST SURGICAL CHANGES FROM LAMINECTOMIES 3. NO HIGH-GRADE CENTRAL STENOSIS 4. FORAMINAL STENOSIS REMAINS GREATEST AT SEVERE RIGHT C5-6 When asked about falls states feels like the leg goes out (referring to the left leg). Has had falls both walking and when getting up from a chair. feels walking and then something gives out. No residual deficits from stroke -- I never knew I had them. When asked about tremors, states he has essential tremor. Very infrequent headaches. Reports handwriting is more sloppy and perhaps smaller. Still has lightheadedness with positional changes. Pt now following with Dr. Arguello through cardiology. worries that patient is dehydrated. Patient's biggest concern is the lightheadedness. Sitting BP 136/78; HR 61 Standing BP 119/75 HR 65 REVIEW OF SYSTEMS GENERAL:No weight loss, malaise or fevers. HEENT:Negative for frequent or significant headaches, No changes in hearing or vision, no nose bleeds or other nasal problems NECK:Negative for lumps, goiter, pain and significant neck swelling RESPIRATORY: Negative for cough (more content not included)...[facility]08-10-2024 History of Present illness Narrative* George Vaughan MD - 12/30/2023 10:20 AM EDT Chief Complaint Patient presents with: 6 Month Exam HPI Rony Monzon is a 83 year old male who presents here today for 6 month follow up. recently diagnosed with breast cancer; scheduled for surgery/chemo/radiation Pt has had chronic GERD sx, pain between the shoulder blades for a long time. He has had multiple testing and imaging done. SAUCEDO: Thinks that the neck pain contributes to some of the pain. Takes Tylenol as needed which helps. HTN: Checks BP at home occ. Is on Propranolol 20 mg 1 pill BID, Lisinopril 10 mg 1 pill BID, and Norvasc 5 mg 1 pill BID. Follows with [facility]. Tremors: Follows with Neuro, taking Propranolol 20 mg 1 pill twice a day. Lipid/CAD: Taking Plavix 75 mg daily and Crestor 10 mg daily. . Pain: chronic; uses Oxycodone 5 mg every 6 hours prn and Tylenol extra strength prn. Wants to startback on a muscle relaxant, used flexeril in past. Spot on face, he has a derm that he only sees as needed. Past medical history, appointments, medications, allergies reviewed. Previous Medical History PAST MEDICAL HISTORY No date: Adjustment disorder with depressed mood No date: Anemia No date: Benign neoplasm of colon No date: Coronary artery disease No date: Diabetes (HCC) No date: Essential hypertension, benign No date: Gallbladder polyp Comment: needs repeat ultrasound in 06/06 No date: Impaired fasting glucose No date: Internal hemorrhoids without mention of complication No date: Other and unspecified hyperlipidemia No date: Personal history of colonic polyps Previous Surgical History PAST SURGICAL HISTORY No date: APPENDECTOMY 08/08/2018: ARTHRP ACETBLR/PROX FEM PROSTC AGRFT/ALGRFT; Right Comment: Dr. Charly Suh 02/02/2015: CARDIAC CATH; N/A Comment: Completed at [facility] 07/11/12: COLONOSCOPY FLX DX W/COLLJ SPEC WHEN PFRMD Comment: Colonoscopy 02/24/2017: COLONOSCOPY FLX DX W/COLLJ SPEC WHEN PFRMD Comment: Colonoscopy 03/29/06: COLONOSCOPY W/BIOPSY SINGLE/MULTIPLE 02/24/2017: ESOPHAGOGASTRODUODENOSCOPY TRANSORAL DIAGNOSTIC Comment: EGD : SHARP W/O FACETEC FORAMOT/DSC 05/23 VRT SGM CRV Comment: Dr Cole 2006: PAST SURGICAL HISTORY OF; Right Comment: knee surgery No date: RPR TUNICA VAGINALIS HYDROCELE BOTTLE TYPE 08/2010: STENT PLACEMENT Comment: [facility] No date: VASECTOMY UNI/BI SPX W/POSTOP SEMEN EXAMS Family History FAMILY HISTORY Problem Relation Age of Onset Heart Brother valvular heart disease Heart Brother valvular heart disease Heart Brother valvular heart diease Hypertension Sister COPD Father Stroke Father Heart Mother Patient Allergies ALLERGIES Allergen Reactions Lyrica [Pregabalin] Swelling B/L hand swelling Norflex [Orphenadri* GI Upset Vicodin [Hydrocodon* nightmares Neurontin [Gabapent* Swelling Feels that he does not have a true allergy to this medication. States he had swelling, not rash. Current Medications Current Outpatient Medications on File Prior to Visit Medication Sig amoxicillin (AMOXIL) 500 mg capsule 4 capsules 1 hours prior to dental procedure. propranolol (INDERAL) 20 mg tablet Take 1 tablet by mouth two times a day. rosuvastatin (CRESTOR) 10 mg tablet Take 1 tablet by mouth daily at bedtime. amLODIPine (NORVASC) 5 mg tablet Take 1 tablet by mouth two times a day. oxyCODONE IR (ROXICODONE) 5 mg immediate release tablet EVERY 6 HOURS NEEDED clopidogrel (PLAVIX) 75 mg tablet Take 1 tablet by mouth once daily. FLUoxetine (PROZAC) 40 mg capsule Take 1 capsule by mouth once daily. lisinopril (PRINIVIL) 10 mg tablet Take 1 tablet by mouth twice daily. Dr. Kramer nitroglycerin sublingual (NITROSTAT) 0.4 mg SL tablet Dissolve 1 tablet under the tongue every 5 minutes as needed for chest pain. acetaminophen (TYLENOL EXTRA STRENGTH) 500 mg tablet Take 1 tablet by mouth every 6 hours as neededfor pain. multivitamin tablet Take 1 tablet by mouth once daily. No current facility-administered medications on file prior to visit. Social History Social History Tobacco Use Smoking status: Former Years: 19 Types: Cigarettes, Pipe Quit date: 1981 Years since quittin.6 Smokeless tobacco: Former Quit date: 05/22/1981 Tobacco comments: Quit in 1981 Vaping Use Vaping Use: Never used Substance Use Topics Alcohol use: No Drug use: No EXAM: BP 119/74 Pulse 68 Resp 16 Wt 98.2 kg (216 lb 7.9 oz) SpO2 98% BMI 28.56 kg/m General Appearance: Well appearing, alert, in no acute distress, well-hydrated, well nourished.. Skin: AK right cheek. Lungs: Lungs clear to auscultation. No wheezing, rhonchi, rales.. Heart: RRR without murmur, gallop, or rubs. No ectopy. Health Maintenance List RSV Vaccine(1 - 1-dose 60+ series) Never done Dilated Retinal Exam due on 12/21/2007 Shingrix Vaccine(2 of 3) due on 01/06/2017 Urine Albumin:Creatinine Ratio due on 02/20/2019 Diabetic Foot Exam due on 04/16/2020 Advance Directive Discussion due on 05/22/2023 Covid-19 Vaccine( season) due on 08/10/2023 Influenza Vaccine(1) due on 01/21/2024 HbA1C due on 05/29/2024 LDL Cholesterol due on 11/26/2024 DTaP,Tdap,Td Vaccine(3 - Td or Tdap) due on 02/24/2033 Pneumococcal Vaccine: 65+ Completed Colorectal Cancer Screening Discontinued Data reviewed Appointment on 11/27/2023 Component Date Value Cholesterol, Total 11/27/2023 165 Triglyceride 11/27/2023 110 HDL Cholesterol 11/27/2023 47 Non HDL Cholesterol 11/27/2023 118 Fasting Time 11/27/2023 12 VLDL Cholesterol 11/27/2023 22 TC:HDL Ratio 11/27/2023 3.51 LDL Cholesterol 11/27/2023 96 LDL:HDL Ratio 11/27/2023 2.04 Protein, Total 11/27/2023 7.0 Albumin 11/27/2023 3.9 Calcium, Total 11/27/2023 9.3 Bilirubin, Total 11/27/2023 0.4 Alkaline Phosphatase 11/27/2023 106 AST 11/27/2023 26 ALT 11/27/2023 24 Glucose 11/27/2023 104 (H) BUN 11/27/2023 14 Creatinine 11/27/2023 1.08 Sodium 11/27/2023 137 Potassium 11/27/2023 4.4 Chloride 11/27/2023 102 CO2 11/27/2023 26 Anion Gap 11/27/2023 9 Estimated Glomerular Jv* 11/27/2023 69 WBC 11/27/2023 8.90 RBC 11/27/2023 3.95 (L) Hemoglobin 11/27/2023 12.2 (L) Hematocrit 11/27/2023 37.6 (L) MCV 11/27/2023 95.2 MCH 11/27/2023 30.9 MCHC 11/27/2023 32.4 RDW-CV 11/27/2023 13.2 Platelet Count 11/27/2023 367 MPV 11/27/2023 10.7 Neutrophils % 11/27/2023 72.1 Abs Neut 11/27/2023 6.42 Lymphocytes % 11/27/2023 14.5 Abs Lymph 11/27/2023 1.29 Monocytes % 11/27/2023 8.8 Abs [place] 11/27/2023 0.78 Eosinophils % 11/27/2023 3.3 Abs Eosin 11/27/2023 0.29 Basophils % 11/27/2023 1.0 Abs Baso 11/27/2023 0.09 Immature Granulocytes % 11/27/2023 0.3 Abs Immature Gran 11/27/2023 0.03 NRBC 11/27/2023 0.0 Absolute nRBC 11/27/2023 <0.01 Diff Type 11/27/2023 Auto Hemoglobin A1C 11/27/2023 5.7 (H) Estimated Average Glucose 11/27/2023 117 ASSESSMENT/PLAN: 1. Essential hypertension, benign - ICD9: 401.1, ICD10: I10 (primary diagnosis) - Controlled - Continue current medications - Recommend home blood pressure monitoring, to bring results to next visit - Encouraged sodium restriction, DASH or Mediterranean diet - Recommend regular aerobic exercise - COMPLETE BLOOD COUNT 2. Hyperlipidemia, mixed - ICD9: 272.2, ICD10: E78.2 - Controlled - Continue current medications - Counseled on healthy diet and regular exercise - COMPREHENSIVE METABOLIC PANEL - LIPID PANEL BASIC 3. Impaired fasting glucose - ICD9: 790.21, ICD10: R73.01 Stable - COMPREHENSIVE METABOLIC PANEL - LIPID PANEL BASIC - HEMOGLOBIN A1C 4. Actinic keratosis - ICD9: 702.0, ICD10: L57.0 He will follow with Dheeraj Levine 5. Tremor - ICD9: 781.0, ICD10: R25.1 Stable Follow up in 6 months I agree with the Chief Complaint, ROS, and Past Histories independently gathered by the clinical it support specialist and the remaining scribed note accurately describes my personal service to the patient. Medical Decision Making: Problems: Moderate: 2+ stable chronic illnesses Data: Unique test result(s) reviewed: 3+ Unique test(s) ordered: 3+ Risk: Moderate: Drug management Medical Decision Making Level: 4 - Moderate George Vaughan MD The documentation for this note was completed by Ana Tong MA acting as scribe for George Vuaghan MD. December 30, 2023 10:25 AM. Ana Tong MA documented in this encounterA[facility] Tele[facility] encounter Note * Telephone Encounter - Adore Winchester MA - 12/05/2023 5:01 PM EDT The following approved medication requests have been transmitted electronically. Requested Prescriptions Signed Prescriptions Disp Refills amoxicillin (AMOXIL) 500 mg capsule 4 capsule 4 Si capsules 1 hours prior to dental procedure. Authorizing Provider: BETTINA LIZARRAGA MA Tere notified. [facility]07-16-2024 Miscellaneous Notes* Telephone Encounter - Adore Winchester MA - 12/05/2023 5:01 PM EDT The following approved medication requests have been transmitted electronically. Requested Prescriptions Signed Prescriptions Disp Refills amoxicillin (AMOXIL) 500 mg capsule 4 capsule 4 Si capsules 1 hours prior to dental procedure. Authorizing Provider: BETTINA LIZARRAGA MA Tere notified. * Telephone Encounter - Cherelle Key RN - 12/05/2023 3:16 PM EDT Sending request to care team for refill. * Telephone Encounter - Francheska Astudillo RN - 12/05/2023 3:12 PM EDT Tere called, verified Rony by name and date of . Tere advised that Rony has a dental appointment next week and needs his antibiotic sent to [facility] in [place]. Francheska Astudillo RN documented in this encounterAdena [facility]07-[facility] Telephone encounter Note * Telephone Encounter - Cherelle Key RN - 12/05/2023 3:16 PM EDT Sending request to care team for refill. [facility]07-[facility] Telephone encounter Note* Telephone Encounter - Francheska Astudillo RN - 12/05/2023 3:12 PM EDT Tere called, verified Rony by name and date of . Tere advised that Rony has a dental appointment next week and needs his antibiotic sent to [facility] in [place]. Francheska Astudillo RN [facility]07-09-2024 Telephone encounter Note* Telephone Encounter - Zander Chavez APRN.THANG - 11/28/2023 11:49 AM EDT The following approved medication requests have been transmitted electronically. Requested Prescriptions Pending Prescriptions Disp Refills propranolol (INDERAL) 20 mg tablet 180 tablet 0 Sig: Take 1 tablet by mouth two times a day. Zander Chavez APRN.CNP [facility]07-09-2024 Miscellaneous Notes* Telephone Encounter - Zander Chavez APRN.CNP - 11/28/2023 11:49 AM EDT The following approved medication requests have been transmitted electronically. Requested Prescriptions Pending Prescriptions Disp Refills propranolol (INDERAL) 20 mg tablet 180 tablet 0 Sig: Take 1 tablet by mouth two times a day. Zander Chavez APRN.CNP * Telephone Encounter - Carline Crandall - 11/28/2023 11:38 AM EDT Prescription Refill Information The patient has been identified by name and date of : Yes Caregiver verified no other encounters exist for this prescription request: Yes Caregiver confirmed with patient/requestor that no other refills are due, in the near future, with this provider at this time: Yes The last office visit in the department: 06-02-23 Does the patient have a future office visit with this provider/department: Yes Requested Prescriptions Pending Prescriptions Disp Refills propranolol (INDERAL) 20 mg tablet 180 tablet 0 Sig: Take 1 tablet by mouth two times a day. Patient is also requesting an antibiotic for an upcoming dental appointment. Patient needs antibiotic due to hip replacement. Carline Crandall November 28, 2023 11:38 AM documented in this encounterAdena [facility]07-09-2024 Telephone encounter Note * Telephone Encounter - Carline Crandall - 11/28/2023 11:38 AM EDT Prescription Refill Information The patient has been identified by name and date of : Yes Caregiver verified no other encounters exist for this prescription request: Yes Caregiver confirmed with patient/requestor that no other refills are due, in the near future, with this provider at this time: Yes The last office visit in the department: 06-02-23 Does the patient have a future office visit with this provider/department: Yes Requested Prescriptions Pending Prescriptions Disp Refills propranolol (INDERAL) 20 mg tablet 180 tablet 0 Sig: Take 1 tablet by mouth two times a day. Patient is also requesting an antibiotic for an upcoming dental appointment. Patient needs antibiotic due to hip replacement. Carline Crandall November 28, 2023 11:38 AM [facility]05-29-2024 Instructions* Patient Instructions* Jessy Weldon PA-C - 10/18/2023 11:50 AM EDT Continue with plavix for prevention of stroke General guidelines for stroke risk factor management, if present Hypertension Target blood pressure <140/90, <130/80 for high risk; normal is 120/80 Hyperlipidemia Target total cholesterol < 200 Target LDL <100, < 70 for high risk Target HDL >45 for men, >55 for women Target triglycerides <150 Diabetes Target HgbA1c <7% Smoking Target is smoking cessation Physical inactivity Target is exercise at least 3 times per week Target waist circumference, in inches is <35 for women and <40 for men Increase physical exercise Increase water intake to 60 ounces a day Follow up with pain management for spine and neurosurgery Follow up with Dr. Strange in 3-4 months documented in this encounterAdena [facility] Center05-29-2024 History of Present illness Narrative* Jessy Weldon PA-C - 10/18/2023 11:01 AM EDT ESTABLISHED PATIENT VISIT Last visit: 05/16/24 ASSESSMENT/PLAN: 1. Frequent falls - ICD9: V15.88, ICD10: R29.6 (primary diagnosis) Likely multifactorial, patient with history of lumbar stenosis with recent surgery in January through the [facility]. Reporting weakness in his lower legs and knees when he walks, notes this was worse before his surgery and has persisted. Is currently in physical therapy. Using walker toambulate and tends to fall if he does not use it. Patient denies any history of diabetes, no history of neuropathy but does have history of orthostatic hypotension. Denying any lightheadedness recently and states this is not contributing to his falls. Encouraged him to continue with physical therapy, slow transitions, compression, increasing water intake. Additionally, discussed at length that any fall will increase risk of head injury. With patient being on Plavix, discussed at length the riskof bleed and to go to the emergency department should he hit his head with any altered mental status. Patient and agree and understand. Encourage close follow-up with neurosurgery [facility]. 2. Tremor of right hand - ICD9: 781.0, ICD10: R25.1 Unchanged since increase of propranolol to 30 mg twice daily from 20 mg twice daily. No side effects with the increase, patient states he would like to go back down to 20 mg as he did not notice a significant benefit. Discussed at length further options for treatment including other medications, physical therapy, weighted braces, referral to specialty, surgery. At this time, patient would like tocontinue with propranolol 20 mg twice daily as well as a weighted brace for his wrist and exercisesat home. Deferring any other medications. Patient also mentioning some change in his voice, quieterand some REM sleep disturbance, but these are chronic issues and are attributed to PTSD. Low suspicion for Parkinson's at this time, will continue to monitor. 3. Headaches - ICD9: 784.0, ICD10: R51.9 Stable, patient has not had a headache since last appointment. 4. Spinal stenosis of cervical region - ICD9: 723.0, ICD10: M48.02 5. Spinal stenosis of lumbar region, unspecified whether neurogenic 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 present - ICD9: 724.02, ICD10: M48.061 Monitored and managed through [facility], recent lumbar surgery in January. Patient had any loss of bowel bladder control, doing well, full strength on exam. 6. Lightheadedness - ICD9: 780.4, ICD10: R42 Patient notes that this has been stable, has not had any recurrence over the last few months. Encouraged him to follow-up with cardiology as planned. 7. Cerebrovascular accident (CVA), unspecified mechanism (HCC) - ICD9: 434.91, ICD10: I63.9 No new neurologic symptoms, notes he was found to have a stroke on MRI in the past, but denies any strokelike symptoms. Compliant with his Plavix. Discussed at length other risk factors for stroke and to monitor and manage with primary care. Patient agrees and understands. Patient and agreeable to treatment plan of care at this time, questions were answered. Patientto follow-up in 4 to 5 months or sooner should any symptoms change or worsen. Jessy Weldon PA-C CHIEF COMPLAINT: follow up HISTORY OF PRESENT ILLNESS: Rony Monzon is a 83 year old male, There were no vitals taken for this visit. with a PMH significant for tremor, HTN, HLD, CAD, REHAN, DDD, depression, WILY, vasovagal syncope . Last seen 05/16/23 for frequent falls. Had lumbar surgery last fall, has had mutlipel falls due to leg weakness. SAUCEDO improved, tremor not improved. Wanted to try weighted braces for tremor and decreased propranolol down to 20mg bid. Compliant with stroke prevention. Patient presents with his for follow-up appointment. Notes he has had 3 falls since last appointment, 1 was in July 06 when he bent over and hit his head on the clothing hamper, another was on August 06 when he was walking from the kitchen to the living room, notes that his left knee gave out on him and his foot was stuck under the door, resulting in fracture of the foot. Has been recovering well from this. On August 30 he was also in the kitchen and his left hip gave out on him and he hit his head lightly on a plastic wastebasket, no loss of consciousness, lightheadedness or dizzinessassociated with these falls. Patient and believe this is due to weakness in his legs secondaryfrom his lumbar surgery last winter. Other than fracture of the left foot, no other injury sustained. Patient notes that because he broke his foot he was unable to do a lot of his physical therapy exercises, but notes he is going to start resuming these exercises soon. Notes that he is following with pain management and had an injection in his spine, notes significant improvement overall and fatigue, discomfort, mood. Notes he has not taken oxycodone since last Monday from his injection and after stopping his medication many of his symptoms is improved as well including constipation. Notes his tremor has been stable, is not dropping things, no significant weakness in the hands. Minimal tremor at rest, tremor is worse in the right upper extremity but present in both upper extremities. Worsens with intention and patient notes that seems to worsen at night as well. Patient denies any hallucinations, notes his gait has also improved since his spinal injection last week but is still slightly antalgic due to left foot pain. Is no longer using a walker. Still endorsing movements when sleeping, but no calling out. Does report some slowness specifically on the right side. Does note his handwriting is a bit sloppy but no micrographia. Still having lightheadedness regularly, but not daily. No episodes of syncope or presyncope, states he drinks about 36 to 48 ounces of water a day. Notes some change in his memory. States that he has some difficulty remembering famous people's names but is unable to give any other examples of concerns with memory. notes no significant memory change. Patient is able to remember conversations, is not forgetful of friends and family. Is ableto drive without any issue, but has not been driving lately due to lumbar surgery and foot fracture. No wandering or getting lost, patient does not cook but does not leave the fridge or faucet running. Does have an aunt with dementia but no other family members. REVIEW OF SYSTEMS GENERAL:No weight loss, malaise or fevers. HEENT:Negative for frequent or significant headaches, No changes in hearing or vision, no nose bleeds or other nasal problems NECK:Negative for lumps, goiter, pain and significant neck swelling RESPIRATORY: Negative for cough, wheezing or shortness of breath. CARDIOVASCULAR: Negative for chest pain, leg swelling or palpitations. GASTROINTESTINAL: Negative for abdominal discomfort, blood in stools or black stools or change in bowel habits GENITOURINARY: No history of dysuria, frequency or incontinence MUSCULOSKELETAL: Negative for joint pain or swelling, back pain or muscle pain. NEUROLOGIC:Negative for focal numbness or weakness, headaches and dizziness or syncope, vision changes, speech/languag changes - EXCEPT that as per HPI above. SKIN:Negative for lesions, rash, and itching. PSYCHIATRIC: Negative for sleep disturbance, mood disorder and recent psychosocial stressors. HEMATOLOGIC/LYMPHATIC/IMMUNOLOGIC:Negative for prolonged bleeding, bruising easily or swollen nodes. ENDOCRINE: Negative for cold or heat intolerance, polyuria, polydipsia and goiter. The remainder of the ROS was reviewed and is negative. LAB/IMAGING: Those performed since patient's last visit have been reviewed. None MEDICATIONS: propranolol (INDERAL) 20 mg tablet Take 1 tablet by mouth two times a day. amoxicillin (AMOXIL) 500 mg capsule 4 capsules 1 hours prior to dental procedure. rosuvastatin (CRESTOR) 10 mg tablet Take 1 tablet by mouth daily at bedtime. amLODIPine (NORVASC) 5 mg tablet Take 1 tablet by mouth two times a day. oxyCODONE IR (ROXICODONE) 5 mg immediate release tablet EVERY 6 HOURS NEEDED clopidogrel (PLAVIX) 75 mg tablet Take 1 tablet by mouth once daily. FLUoxetine (PROZAC) 40 mg capsule Take 1 capsule by mouth once daily. lisinopril (PRINIVIL) 10 mg tablet Take 1 tablet by mouth twice daily. Dr. Kramer nitroglycerin sublingual (NITROSTAT) 0.4 mg SL tablet Dissolve 1 tablet under the tongue every 5 minutes as needed for chest pain. acetaminophen (TYLENOL EXTRA STRENGTH) 500 mg tablet Take 1 tablet by mouth every 6 hours as neededfor pain. multivitamin tablet Take 1 tablet by mouth once daily. HISTORIES PAST MEDICAL HISTORY Diagnosis Date Adjustment disorder with depressed mood Anemia Benign neoplasm of colon Coronary artery disease Diabetes (HCC) Essential hypertension, benign Gallbladder polyp needs repeat ultrasound in 06/06 Impaired fasting glucose Internal hemorrhoids without mention of complication Other and unspecified hyperlipidemia Personal history of colonic polyps FAMILY HISTORY Problem Relation Age of Onset Heart Brother valvular heart disease Heart Brother valvular heart disease Heart Brother valvular heart diease Hypertension Sister COPD Father Stroke Father Heart Mother SOCIAL HISTORY Social History Tobacco Use Smoking status: Former Years: 20 Types: Cigarettes, Pipe Quit date: 1981 Years since quittin.4 Smokeless tobacco: Former Quit date: 05/22/1981 Tobacco comments: Quit in 1981 Vaping Use Vaping Use: Never used Substance Use Topics Alcohol use: No Drug use: No PHYSICAL EXAMINATION BP 143/83 Pulse 61 Resp 18 Wt 96.8 kg (213 lb 6.4 oz) SpO2 100% BMI 28.15 kg/m GENERAL EXAM: General appearance: NAD, pleasant. HEENT: NC/AT, nasal congestion absent, no oral lesions, membranes moist. NECK: No masses, supple. Lungs: Breathing comfortably Extr: Moves all extremities without difficulty Skin: Cool to touch. No rash. NEUROLOGICAL EXAM: General: Awake, alert, oriented x3 (person,place,time), speech fluent, no dysarthria; comprehension, naming, repetition intact. Mild hypophonia CN: PERRL, EOMI and without nystagmus, VFF to confrontation, facial sensation and strength are normal and symmetric, hearing is poor bilaterally, palate and tongue movements are intact and symmetric.SCM and trapezius strength normal. Motor: Normal tone, bulk and strength (5/5) bilaterally (4+/5 to left foot with flexion, 4+/5 righthip with flexion) Reflexes: 2/4 and symmetric, plantar stimulation is flexor. Coordination: FNF intact. SHIRLENE with slight decrease in right upper and lower extremities. Intention tremor to BUE worse on right Sensation: No evidence of neglect. Gait: Antalgic due to foot pain (left), unstable Assessment and Plan: ASSESSMENT/PLAN: 1. Tremor of right hand - ICD9: 781.0, ICD10: R25.1 (primary diagnosis) Tremor stable, no significant change. Not present at rest on exam but present bilateral upper extremities with intention, slightly worse on the right. Normal tone of the upper extremities. However, patient with some decreased rapid alternating movements on the right upper and lower extremity and states the symptoms feel slower on the side. Patient also reporting some chronic constipation, but this is improved after stopping his oxycodone. Reporting some hypophonia, orthostatic hypotension and handwriting change. Unclear etiology for symptoms but will have patient follow-up with physician due to concerns of possible parkinsonism. Encouraged conservative therapy for tremor including wrist weights and continuing propranolol as prescribed, 20 mg twice daily. 2. Frequent falls - ICD9: V15.88, ICD10: R29.6 3. Spinal stenosis of cervical region - ICD9: 723.0, ICD10: M48.02 4. Spinal stenosis of lumbar region, unspecified whether neurogenic 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 present - ICD9: 724.02, ICD10: M48.061 Patient with 3 falls since last appointment, and patient attributes this to weakness in his legs, 1 fall his left knee gave out and with 1 fall his right hip gave out. Sustained a left foot fracture from the fall in July and has been recovering from this. Falls are likely multifactorial, concern for possible parkinsonism as noted above but also patient with some cervical stenosis, followed with neurosurgery and recently had lumbar surgery last winter. does note that he was weak priorto the surgery and feels deconditioning may be playing a role as well to the falls. Falls are neverrelated to lightheadedness or syncope. 5. Lightheadedness - ICD9: 780.4, ICD10: R42 Patient still with occasional lightheadedness, follows with cardiology for orthostatic hypotension.Encouraged conservative therapy, no presyncope or syncope. 6. Cerebrovascular accident (CVA), unspecified mechanism (HCC) - ICD9: 434.91, ICD10: I63.9 No new stroke since last appointment, patient compliant with Plavix 75 mg daily and follows with primary care for risk factor management. Discussed risk factors including blood sugar, blood pressure and cholesterol. Recommendations were given to patient. Patient without any new neurologic symptoms that would warrant additional workup at this time. 7. Headaches - ICD9: 784.0, ICD10: R51.9 No headaches since last appointment, stable. 8. Orthostatic hypotension - ICD9: 458.0, ICD10: I95.1 Sees cardiology. 9. Myelomalacia of cervical cord (HCC) - ICD9: 336.8, ICD10: G95.89 Followed by neurosurgery. Patient agreeable to treatment plan of care at this time, questions were answered. Due to complexity of case and persistent falls, will have patient follow-up with physician, Dr. Strange for further evaluation, 60-minute slot as patient has not been evaluated by Dr. Strange in the past. Jessy Weldon PA-C I spent a total of 45 minutes on the date of the service which included preparing to see the patient, [id number] patient care, completing clinical documentation, obtaining and/or reviewing separately obtained history, performing a medically appropriate examination, counseling and educating the pat ient/family/caregiver, and ordering medications, tests, or procedures. This document has been created with the use of voice recognition technology. It may contain inaccuracies: (e.g. misspellings, inaccurate syntax or word sense) that have escaped review. documented in this encounterAdena [facility]05-21-2024 Telephone encounter Note * Telephone Encounter - Sveta Gomes LPN - 10/10/2023 3:04 PM EDT Form completed and faxed back. Sveta Gomes LPN [facility]05-21-2024 Miscellaneous Notes* Telephone Encounter - Sveta Gomes LPN - 10/10/2023 3:04 PM EDT Form completed and faxed back. Sveta Gomes LPN * Telephone Encounter - Jessy Hutchison RN - 10/09/2023 1:48 PM EDT Received fax from Halima Harvey CNP requesting clopidogrel instructions for a pain managementprocedure. Forwarded to Jessy Weldon PA-C[facility]. Fax transmission confirmed. documented in this encounterAdena [facility] Center05-20-2024 Telephone encounter Note * Telephone Encounter - Jessy Hutchison RN - 10/09/2023 1:48 PM EDT Received fax from Halima Harvey CNP requesting clopidogrel instructions for a pain managementprocedure. Forwarded to Jessy Weldon PA-C's [facility]. Fax transmission confirmed. [facility]05-17-[facility] Telephone encounter Note* Telephone Encounter - Ashley Hinds OCCA - 10/06/2023 7:56 AM EDT Received fax from [facility], [facility] for request to hold clopidogrel for procedure on 10/13/2023. Given to provider for review. MARY 02/28/2023 [facility]05-17-[facility] Miscellaneous Notes* Telephone Encounter - Ashley Hinds OCCA - 10/06/2023 7:56 AM EDT Received fax from [facility] for request to hold clopidogrel for procedure on 10/13/2023. Given to provider for review. MARY 02/28/2023 documented in this encounterAdena Pike [facility] Center04-30-2024 History of Present illness Narrative* Katy Unger RT(R) - 09/19/2023 11:10 AM EDT Radiology Service Progress Note PATIENT NAME: Rony Monzon DATE OF SERVICE: September 19, 2023 TIME: 11:38 AM PATIENT IDENTITY VERIFICATION COMPLETED USING TWO (2) IDENTIFIERS: Name and Date of confirmedby patient verbally. FALL SCREENING: Has the patient had 2 falls in the last year or 1 fall with injury or currently using an Ambulatory Assistive Device (Walker, Cane, Wheelchair, Crutches, etc.)? Yes, Patient High Riskfor Falls What interventions were put in place to prevent falls during this visit? Offered Assistance with Transfers/Clothing, Instructed Patient to Remain Seated (Not on Exam Table) Until Exam, and Increased Observations by Caregivers PATIENT GENDER DATA: Male PATIENT RELEVANT IMPLANT DATA REVIEWED: Yes PATIENT PRESENTS WITH AN IMPLANTABLE OR ATTACHED DIRECTOR OF BUSINESS SYSTEMS: No RADIOLOGY DEPARTMENT: General X-ray: Exam(s) Completed: Lower Extremity X- Ray(s): Foot, Left PERIPHERAL IV DATA: Not applicable SIGNED BY: RT Óscar(R) September 19, 2023 11:38 AM documented in this encounterAdena Pike Medical Center04-10-2024 Miscellaneous Notes* Telephone Encounter - Zander Chavez APRN.CNP - 08/30/2023 2:42 PM EDT The following approved medication requests have been transmitted electronically. Requested Prescriptions Pending Prescriptions Disp Refills propranolol (INDERAL) 20 mg tablet 180 tablet 0 Sig: Take 1 tablet by mouth two times a day. Zander Chavez APRN.THANG * Telephone Encounter - Yessenia Cortez LPN - 08/30/2023 11:09 AM EDT Patient has been identified by name and date of : Yes, Provider Dr. Vaughan Date 08/30/23 Time 11:09 am Spouse phones for refill(s): Requested Prescriptions Pending Prescriptions Disp Refills propranolol (INDERAL) 20 mg tablet 180 tablet 0 Sig: Take 1 tablet by mouth two times a day. Date of last office visit in primary care: 08/11/2023 Date of next office visit in primary care: 12/01/2023 Advise . Thank you. Yessenia Cortez LPN. documented in this encounterAdena Pike [facility] Center04-01-2024 History of Present illness Narrative* Katy Unger RT(R) - 08/21/2023 2:50 PM EDT Radiology Service Progress Note PATIENT NAME: Rony Monzon DATE OF SERVICE: August 21, 2023 TIME: 2:59 PM PATIENT IDENTITY VERIFICATION COMPLETED USING TWO (2) IDENTIFIERS: Name and Date of confirmedby patient verbally. FALL SCREENING: Has the patient had 2 falls in the last year or 1 fall with injury or currently using an Ambulatory Assistive Device (Walker, Cane, Wheelchair, Crutches, etc.)? Yes, Patient High Riskfor Falls What interventions were put in place to prevent falls during this visit? Offered Assistance with Transfers/Clothing, Instructed Patient to Remain Seated (Not on Exam Table) Until Exam, and Increased Observations by Caregivers PATIENT GENDER DATA: Male PATIENT RELEVANT IMPLANT DATA REVIEWED: Yes PATIENT PRESENTS WITH AN IMPLANTABLE OR ATTACHED DIRECTOR OF BUSINESS SYSTEMS: No RADIOLOGY DEPARTMENT: General X-ray: Exam(s) Completed: Lower Extremity X- Ray(s): Foot, Left PERIPHERAL IV DATA: Not applicable SIGNED BY: RT Óscar(R) August 21, 2023 2:59 PM documented in this encounterAdena Pike Medical Center04-01-2024 Instructions* Patient Instructions* Omar Concepcion - 08/21/2023 2:26 PM EDT Continue with boot and rollator. Can ambulate as tolerated in boot Would benefit from heel lift or shoe adaptor for discrepancy when using boot Check xray today and again in 3-4 weeks Will check ultrasound to assure no blood clot Order for handicapped Powerstep Original Full length. Can purchase at [employer] and boots,shoes and more here in [place], [employer] in [place] or [place]. Also can find in [place] in [facility]. Powersteps can also be purchased online, starting around $45.00 If you have a metatarsal or dancer pad for your feet apply the pad directly to the insole so you can interchange between your shoes. Find a shoe with a removable insole and take this out and replace with your powerstep insole. Always bring powersteps with you when shopping for shoes so that you can make sure that everything fits well together documented in this encounterAdena Pike Medical Center04-01-2024 History of Present illness Narrative* Omar Concepcion - 08/21/2023 2:10 PM EDT Consultation requested by Dr. chavez for an opinion regarding left foot fracture. My final recommendations will be communicated back to the requesting physician by way of shared Medical record or letter to requesting physician via US mail. Initial Podiatric Office Visit: Chief Complaint: This 83 year old male who presents with chief complaint:left foot fracture HPI Patient presents to clinic for evaluation of left foot On 08/07/23, fell and injured his left foot. Was found to have fracture of left 5th metatarsal Was placed in pneumatic boot and is using a rollator. Has xrays from 08/10 to discuss Did have surgery in January on his back and was doing very well until he injured his left foot. PAIN EVALUATION No data found in the last 1 encounters. Hemoglobin A1C (%) Date Value 04/25/2023 5.6 10/25/2022 5.9 04/25/2022 5.8 10/21/2019 5.8 04/09/2019 5.8 12/31/2018 5.9 02/20/2018 5.8 07/31/2017 5.8 PCP: George Vaughan MD PAST MEDICAL HISTORY Diagnosis Date Adjustment disorder with depressed mood Anemia Benign neoplasm of colon Coronary artery disease Diabetes (HCC) Essential hypertension, benign Gallbladder polyp needs repeat ultrasound in 06/06 Impaired fasting glucose Internal hemorrhoids without mention of complication Other and unspecified hyperlipidemia Personal history of colonic polyps Current Outpatient Medications Medication Sig amoxicillin (AMOXIL) 500 mg capsule 4 capsules 1 hours prior to dental procedure. rosuvastatin (CRESTOR) 10 mg tablet Take 1 tablet by mouth daily at bedtime. amLODIPine (NORVASC) 5 mg tablet Take 1 tablet by mouth two times a day. oxyCODONE IR (ROXICODONE) 5 mg immediate release tablet EVERY 6 HOURS NEEDED clopidogrel (PLAVIX) 75 mg tablet Take 1 tablet by mouth once daily. FLUoxetine (PROZAC) 40 mg capsule Take 1 capsule by mouth once daily. lisinopril (PRINIVIL) 10 mg tablet Take 1 tablet by mouth twice daily. Dr. Kramer nitroglycerin sublingual (NITROSTAT) 0.4 mg SL tablet Dissolve 1 tablet under the tongue every 5 minutes as needed for chest pain. acetaminophen (TYLENOL EXTRA STRENGTH) 500 mg tablet Take 1 tablet by mouth every 6 hours as neededfor pain. multivitamin tablet Take 1 tablet by mouth once daily. propranolol (INDERAL) 20 mg tablet Take 1 tablet by mouth two times a day. No current facility-administered medications for this visit. ALLERGIES Allergen Reactions Lyrica [Pregabalin] Swelling B/L hand swelling Norflex [Orphenadri* GI Upset Vicodin [Hydrocodon* nightmares Neurontin [Gabapent* Swelling Feels that he does not have a true allergy to this medication. States he had swelling, not rash. PAST SURGICAL HISTORY Procedure Laterality Date APPENDECTOMY ARTHRP ACETBLR/PROX FEM PROSTC AGRFT/ALGRFT Right 08/08/2018 Dr. Charly Suh CARDIAC CATH N/A 02/02/2015 Completed at [facility] COLONOSCOPY FLX DX W/COLLJ SPEC WHEN PFRMD 07/11/12 Colonoscopy COLONOSCOPY FLX DX W/COLLJ SPEC WHEN PFRMD 02/24/2017 Colonoscopy COLONOSCOPY W/BIOPSY SINGLE/MULTIPLE 03/29/06 ESOPHAGOGASTRODUODENOSCOPY TRANSORAL DIAGNOSTIC 02/24/2017 EGD [place] W/O FACETEC FORAMOT/DSC 05/[address] Cole PAST SURGICAL HISTORY OF Right 2007 knee surgery RPR [place] VAGINALIS HYDROCELE BOTTLE TYPE STENT PLACEMENT 08/2010 [facility] VASECTOMY UNI/BI SPX W/POSTOP SEMEN EXAMS FAMILY HISTORY Problem Relation Age of Onset Heart Brother valvular heart disease Heart Brother valvular heart disease Heart Brother valvular heart diease Hypertension Sister COPD Father Stroke Father Heart Mother Social History Tobacco Use Smoking status: Former Years: 20 Types: Cigarettes, Pipe Quit date: 1981 Years since quittin.2 Smokeless tobacco: Former Quit date: 05/22/1981 Tobacco comments: Quit in 1981 Vaping Use Vaping Use: Never used Substance Use Topics Alcohol use: No Drug use: No REVIEW OF SYSTEMS GENERAL: Negative for Malaise, significant weight loss, fever RESPIRATORY: Negative for cough, wheezing and shortness of breath CARDIOVASCULAR: Negative for chest pain, leg swelling and palpitations GI: Negative for abdominal discomfort, blood in stools or black stools and change in bowel habits : Negative for dysuria, frequency and incontinence MUSCULOSKELETAL: Negative for joint pain or swelling, back pain, and muscle pain. SKIN: Negative for lesions, rash, and itching. HEMATOLOGY/LYMPHOLOGY Negative for prolonged bleeding, bruising easily, and swollen nodes. ENDOCRINE: Negative for cold or heat intolerance, polyuria, polydipsia and goiter. NEURO: negative Physical Exam: Constitutional: Pt is a well developed 83 year old male who is alert, oriented and cooperative Eyes: Following during examination. No redness or drainage. Respiratory: RR normal and nonlabored. Even breathing. No evidence of distress or shortness of breath. Psychology: Patient is engaged during conversation. Normal affect and mood. Does not appear depressed or anxious during encounter. Vascular: Dorsalis pedis and posterior tibial pulses palpable left Capillary Fill time < 5 seconds to digits 1-5 left Skin temperature warm to warm proximal to distal left Hair growth present to digits Neurological: intact light touch/epicritic sensation Dermatological: No open wounds noted to left foot Musculoskeletal/Orthopaedic: Patient has no pain to palpation of left foot + pain to left calf Radiographs: 3 views left foot reviewed August 21, 2023: I have personally reviewed and interpreted these XR myself: Nondisplaced fracture of left 5th metatarsal base ASSESSMENT: (S92.355A) Closed nondisplaced fracture of fifth metatarsal bone of left foot, initial encounter (primary encounter diagnosis) (M79.662) Pain of left calf PLAN: 1. History and physical examination performed. 2. XR reviewed with patient and interpreted today 3. Will repeat xrays today to assure no change in aligment of 5th metatarsal fracture 4. Ok to wbat in cam boot. Would use walker for balance. 5. Can use heel lift in right shoe to help level walking with boot 6. Repeat xray today and again in 3 weeks 7. Due to calf pain, would check ultrasound. 8. Discussed future use of heel inserts Omar Concepcion DPM Podiatry [address] [facility] [address] Dept: [phone] Dept * Narayan Hameed RN - 08/21/2023 1:58 PM EDT Patient presents with: Left Foot - Established Patient, Fracture Patient presents for Closed nondisplaced fracture of fifth metatarsal bone of left foot that occurred after a fall on 08/07/23. States he only has pain when walking. Currently has a boot and has been using a Rolator. documented in this encounterAdena Pike [facility] Center04-01-2024 Miscellaneous Notes* Telephone Encounter - Narayan Hameed RN - 08/21/2023 8:28 AM EDT Images from the original note were not included. Omar Concepcion 2 days ago I would keep appointment as scheduled. Can repeat xrays at follow-up just to make sure no change inalignment Omar Concepcion DPM * Telephone Encounter - Narayan Hameed RN - 08/14/2023 10:08 AM EDT Patient's appointment currently 10 days after first X-Ray. Do you want me to move patient out to the next week and place order for new X-Ray or would you prefer to keep patient's appointment? Patientcurrently in boot. documented in this encounterAdena Pike Medical Center03-26-2024 Miscellaneous Notes* Telephone Encounter - George Vaughan MD - 08/15/2023 5:13 PM EDT OK for Amoxil as ordered George Vaughan MD * Telephone Encounter - Radha Fields - 08/15/2023 3:57 PM EDT Rony is calling George Vaughan MD today for a Refill Request. Patient is requesting prophylactic antibiotics prior to a dental appointment at the end of the month due to a hip surgery. Pharmacy: [facility] Patient has been identified by name and birthdate. Duration of symptoms: N/A Person calling: self Call patient at: at home [phone] (home) Was an appointment scheduled: No Closing statement: Radha Lobo documented in this encounterAdena Pike Medical Center03-22-2024 History of Present illness Narrative* Katy Unger RT(R) - 08/11/2023 1:20 PM EDT Radiology Service Progress Note PATIENT NAME: Rony Monzon DATE OF SERVICE: August 11, 2023 TIME: 1:06 PM PATIENT IDENTITY VERIFICATION COMPLETED USING TWO (2) IDENTIFIERS: Name and Date of confirmedby patient verbally. FALL SCREENING: Has the patient had 2 falls in the last year or 1 fall with injury or currently using an Ambulatory Assistive Device (Walker, Cane, Wheelchair, Crutches, etc.)? Yes, Patient High Riskfor Falls What interventions were put in place to prevent falls during this visit? Offered Assistance with Transfers/Clothing, Instructed Patient to Remain Seated (Not on Exam Table) Until Exam, and Increased Observations by Caregivers PATIENT GENDER DATA: Male PATIENT RELEVANT IMPLANT DATA REVIEWED: Yes PATIENT PRESENTS WITH AN IMPLANTABLE OR ATTACHED DIRECTOR OF BUSINESS SYSTEMS: No RADIOLOGY DEPARTMENT: General X-ray: Exam(s) Completed: Lower Extremity X- Ray(s): Foot, Left PERIPHERAL IV DATA: Not applicable SIGNED BY: RT Óscar(R) August 11, 2023 1:06 PM documented in this encounterAdena Pike Medical Center03-22-2024 History of Present illness Narrative* Zander Chavez APRN.[facility] - 08/11/2023 12:40 PM EDT Chief Complaint Patient presents with: Foot Trauma: LEFT foot/little toe x 4 days HPI Rony Monzon is a 83 year old male who presents here today for Above Complaints. Patient complains of: left foot/toe pain. 5th toe. Occurring after a fall, patient states left leg went out from underneath him. Does not remember hitting an actual object in the house. Duration: 4 days Location:Left foot Associated Symptoms: pain Aggravating factors:walking Things that improve symptoms :tylenol, oxycodone Past medical history, appointments, medications, allergies reviewed. EXAM: BP 123/71 Pulse (!) 59 Resp 16 Wt 97 kg (213 lb 12.8 oz) SpO2 98% BMI 28.21 kg/m General Appearance: Well appearing, alert, in no acute distress, well-hydrated, well nourished.. Skin: Yellow ecchymosis present in the area of the proximal joint of the metatarsal from 5th to 2ndtoe. Extremities: Left foot: There is moderate tenderness of the lateral side of the foot, along the 5thmetatarsal, more mild pain in the 4th and 3rd metatarsal. No pain in the 2nd and 1st metatarsal . ASSESSMENT/PLAN: 1. Closed nondisplaced fracture of fifth metatarsal bone of left foot, initial encounter - ICD9: 825.25, ICD10: S92.355A (primary diagnosis) -X-ray of the left foot reveals nondisplaced fracture of the base of the left fifth metatarsal. Patient placed in [place] Boot, referred to podiatry. - CONSULT TO PODIATRY 2. Foot pain, left - ICD9: 729.5, ICD10: M79.672 - XR FOOT GENERAL 3V AP/LAT/OBL LEFT 3. Pain of toe of left foot - ICD9: 729.5, ICD10: M79.675 - XR FOOT GENERAL 3V AP/LAT/OBL LEFT Zander Chavez APRN.[employer] This note was partly generated using [employer] voice recognition dictation and may contain some misspelled or inaccurate words missed on review. documented in this encounterAdena Pike Medical Center12-20-2023 Miscellaneous Notes* Telephone Encounter - Flavia Zhang - 05/10/2023 10:47 AM EST 1st call attempt, pt answered then hung up on me * Telephone Encounter - Nick Avila OCCA - 05/10/2023 9:54 AM EST TC to patient who is agreeable to HIDA scan. Please contact patient to assist in scheduling. Thank you. VINCENT Landeros * Telephone Encounter - George Vaughan MD - 05/09/2023 5:06 PM EST Please notify patient that his ultrasound does show some gallstones, although the gallbladder does not look inflamed. I would suggest getting a HIDA scan to test his gallbladder function. George Vaughan MD documented in this encounterAdena Pike Medical Center11-27-2023 Progress note Author Nini Rebolledoyash [facility] April 17, 2023 4:08pm Note Date/Time April 17, 2023 1:46pm [employer] [facility] [address] [place] [address] Progress Note 04/17/23 1344 MR#: [id number] Acct: [id number] Name: RONY MONZON Rep #:[id number] : 1940 82 From: Nini Brown MD PCP: Dr. George Vaughan MD Status:AD IN Location: [place] [address] Subjective Subjective Patient seen and examined. HE was admitted with a complaint of chest pain. He feels better today. His was by his bedside. Review of systems is otherwise negative. Objective Data Objective Data Vital Signs: Vital Signs Temp Pulse Resp BP Pulse Ox O2 Del Method 98.4 F 61 14 157/61 H 95 Room Air 04/17/23 08:25 04/17/23 08:25 04/17/23 08:25 04/17/23 08:25 04/17/23 08:25 04/17/23 08:25 Oxygen Delivery Method Room Air Weight: 204 lb 2.369 oz Body Mass Index (BMI) 26.9 Intake & Output: Intake and Output for Last 24 Hours 04/15/23 04/16/23 04/17/23 23:59 23:59 23:59 Intake Total 590 / 590 550 / 550 Balance 590 / 590 550 / 550 Lab / Micro Data 04/17/23 05:09 04/17/23 05:09 Labs: Laboratory Results - last 24 hr 04/16/23 13:40: Troponin I High Sens 6 04/17/23 05:09: WBC 9.8, RBC 3.40 L, Hgb 10.7 L, Hct 32.6 L, MCV 95.9 H, MCH 31.5, MCHC 32.8, RDW Std Deviation 44.9 H, RDW Coeff of Guido 12.8, Plt Count 327,MPV 9.6, Immature Gran % (Auto) 0.300, Neut % (Auto) 70.2 H, Lymph % (Auto) 15.0L, [place] % (Auto) 10.3 H, Eos % (Auto) 3.5, Baso % (Auto) 0.7, Absolute Neuts (auto) 6.9, Absolute Lymphs (auto) 1.46, Nucleated RBC % 0, PT 14.1, INR 1.1, Sodium 138, Potassium 4.2, Chloride 103, Carbon Dioxide 29.0, Anion Gap 6, BUN 17, Creatinine 1.04, Estim Creat Clear Calc 62.96, Est GFR (MDRD) Af Amer 88, Est GFR (MDRD) Non-Af 73, BUN/Creatinine Ratio 16.3, Glucose 111 H, Calcium 8.7,Phosphorus 3.8, Magnesium 1.9, Total Bilirubin 0.30, Direct Bilirubin 0.09, AST 17, ALT 20, Alkaline Phosphatase 102, Total Protein 6.5, Albumin 2.9 L, Globulin3.6, Albumin/Globulin Ratio 0.8 L Physical Exam Const alert, oriented x3 and no apparent distress General Appearance: cooperative and well developed HEENT normocephalic, moist oral mucous membranes and oropharynx normal Eyes PERRL and EOMs intact bilaterally Neck no lymphadenopathy and supple Lymph Lymphatic: no lymphadenopathy noted Resp normal respiratory effort, normal air movement and clear to auscultation bilaterally Cardio regular rate, regular rhythm, S1 normal heart sound, S2 normal heart sound and no murmurs GI normal to inspection, nondistended, normoactive bowel sounds, soft to palpation,non-tender and non-distended Extremity normal capillary refill, no clubbing, cyanosis or edema and no calf tenderness General Extremity: no tenderness to palpation of joints or extremities Skin General Skin Exam: no breakdown Neuro CN's II-XII intact bilaterally, no focal motor deficits, no sensory deficits noted and deep tendon reflexes 2+ bilaterally Motor Exam: strength 5/5 throughout Psych thought process normal and cooperative Appearance: appropriate Assessment & Plan Assessment/Plan (1) Chest pain: PLAN: Plan #Chest pain' * troponins were negative x 3. He had a stress test in May 2022 which was negative. * EKG showed no acute ST changes * will do stress test in light of history of heart disease. Couldnt do stress test today. Will do tomorrow * #Debility due to mechanical fall * PT/OT on board. Fall precautions. * propranolol held due to concern for orthostatic symptoms. * #Hypertension: on amlodipine and lisinopril #Hyperlipidemia: on statin #CAD s/p stents: on plavix and high intensity statin DVT Prophylaxis: on lovenox Charges/Coding Visit Charges Inpatient E&M: 43009 Subs Hosp L2 04/17/23 1608 <Electronically signed by Nini Brown MD> Nini Brown MD Cosigner Signature (if applicable): CC: ~ Signed [facility] Work Phone: 1(108) 935-405711-26-2023 History and physical note Author Juan Pike [facility] April 16, 2023 7:26pm Note Date/Time April 16, 2023 4:59pm [facility] Medical Records Department [address] [place] [id number] H&P Exam - Hospitalist 04/16/23 1651 MR#: [id number] Acct: [id number] Name: RONY MONZON Rep #:[id number] : 1940 82 From: Juan Pike MD PCP: Dr. George Vaughan MD Status:AD M IN Location: [facility] [id number] HPI - General General Date of Admission: 04/16/23 Date of Service: 04/16/23 Chief Complaint: Chest and back pain HPI Narrative RONY MONZON, is a 82 M who presents Chest pain associated with back pain since yesterday. He notes the pain is radiating from his chest to his back, but at present only persistent in his back between the 2 shoulder blades. Has had history of chest pain in the past, and also has a recent spinal surgery for spinal spondylosis. This pain is known similar to his pain episodes in the past. Of note he had a fall day before yesterday from kneeling position. There was noassociated head injury. No syncopal episode, it was only be due to imbalance. He was able to get up on his feet by himself. There is some improvement with morphine but the pain is still persistent. The pain improved while laying back on the bed, worsens with sitting for a prolongedperiod of time. No sweating, palpitations, syncopal episodes. Has history of coronary artery disease with 1 stent in the circumflex artery in 2010, stress test in 2022 was negative. Has a history of CVA in 2021 and on Plavix since then. He is on Plavix daily. Cardiac evaluation in the ED was negative. Troponins are normal. For his blood pressure he is taking amlodipine, lisinopril and propranolol. [facility] Medical History Anxiety Arthritis Atherosclerotic heart disease of [place] coronary artery without angina pectoris Benign prostatic hypertrophy Cardiology follow-up encounter Chest pain Coronary artery disease COVID-19 (~01/18/22) Depression Dizziness and giddiness Dyspnea Easy bruising Enterococcus UTI Essential hypertension Fatigue Former smoker H/O appendicitis History of echocardiogram History of hiatal hernia History of stress test History of tilt table evaluation History of transesophageal echocardiography (VIOLETTE) Indwelling urethral catheter present 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 Low iron Neck pain on left side REHAN (obstructive sleep apnea) Precordial chest pain Presence of stent in coronary artery (~09/08/10) PTSD (post-traumatic stress disorder) Pulmonary hypertension Pure hypercholesterolemia Restless legs syndrome (RLS) Sepsis due to urinary tract infection Shortness of breath Syncope and collapse Walker as ambulation aid Wears glasses Wears hearing aid Home Medications fluoxetine 40 mg capsule (Prozac) 40 mg PO DAILY 07/04/18 [History Last Taken 07/13/21] acetaminophen 500 mg tablet (Tylenol Extra Strength) 500 mg PO Q6H PRN Pain 06/17/20 [History Last Taken 07/13/21] amlodipine 5 mg tablet 5 mg PO BID 03/17/21 [History Last Taken 07/14/21] multivitamin 1 tab PO DAILY 02/08/22 [History Last Taken Unknown] tizanidine 4 mg capsule 4 mg PO BID PRN muscle spasticity 02/08/22 [History Last Taken Unknown] clopidogrel 75 mg tablet 75 mg PO DAILY 05/05/22 [History Last Taken Unknown] nitroglycerin 0.4 mg sublingual tablet 0.4 mg sublingual Q5-15M PRN chest pain #25 tabs 05/26/22 [Rx Last Taken Unknown] rosuvastatin 10 mg tablet 10 mg PO QHS #90 tabs 11/24/22 [Rx Last Taken Unknown] lisinopril 10 mg tablet See Rx Instructions .Route .COMPLEX #180 tabs 03/02/23 [Rx Last Taken Unknown] oxycodone 5 mg tablet 5 mg PO Q6H PRN pain 04/16/23 [History Last Taken Unknown] propranolol 20 mg tablet 30 mg PO BID 04/16/23 [History Last Taken Unknown] Allergy/AdvReac Type Severity Reaction Status Date / Time hydrocodone [From Vicodin] Allergy Other Verified 03/13/23 11:45 orphenadrine Allergy Unknown Verified 03/13/23 11:45 pregabalin Allergy Swelling Verified 03/13/23 11:45 atorvastatin [From Lipitor] AdvReac Severe Intolerance Verified 03/13/23 11:45 ,Myalgias Family History Father CVA (cerebral vascular accident) Mother Cardiomegaly Brother CAD (coronary artery disease) Hx CABG and valve replacement Diabetes Brother History of heart valve replacement Brother Rheumatic fever Sister Hypertension Aortic aneurysm H/O aortic valve replacement Brother Cancer bladder Brother Thyroid disorder Surgical History H/O heart artery stent History of appendectomy History of colonoscopy History of hydrocelectomy History of right hip replacement History of vasectomy hx cervical stenosis Presence of coronary angioplasty implant and graft (~09/08/10) S/P right knee arthroscopy S/P TURP Social History household members: spouse housing: house Smoking Status: Former smoker pack-years: 20 Tobacco: How many years used: 22 second hand exposure: No alcohol intake: never substance use type: does not use caffeine: Yes Type: carbonated beverages Number of servings: 1 and tea what type of physical activity do you participate in: none seatbelt use: always do you feel safe at home: Yes Prior Cardiac Testing/Procedures Prior Cardiac Testing/Procedures: Echocardiogram, Stress Test and Stenting ROS Constitutional Constitutional: Reports weakness; Denies anorexia, change in weight, chills, fatigue, fever(s), malaise, night sweats or other Eyes Eyes: Denies blurry vision, change in eye color, change in vision, discharge from eye(s), double vision, erythema, eye pain, loss of vision or other ENT HEENT: Denies abnormal hearing, dysphagia, ear pain, epistaxis, headache(s), hearing loss, nasal congestion, nasal discharge, post nasal drip, sinus pressure, sore throat or other Respiratory/Chest Respiratory/Chest: Denies cough, dyspnea, excessive phlegm production, hemoptysis, productive cough, shortness of breath at rest, shortness of breath with exertion, wheezing or other Gastrointestinal Gastrointestinal: Denies abdominal pain, coffee ground emesis, constipation, diarrhea, dyspepsia, hematemesis, hematochezia, loose stools, melena, nausea, vomiting or other Genitourinary Genitourinary: Denies burning urination, difficulty urinating, dysuria, hematuria, nocturia, urinary frequency, urinary hesitancy, urinary incontinence,urinary urgency or other Musculoskeletal Musculoskeletal: Denies arthralgias, back pain, joint pain, joint stiffness, joint swelling, myalgias, neck pain or other Neurologic Neurologic: Denies abnormal gait, abnormal speech, confusion, disequilibrium, dizziness, focal weakness, headache(s), numbness, paresthesias, seizure-like activity, seizures, syncope, tingling, tremor(s) or other Vital Signs Vital Signs Vital Signs: 04/16/23 11:14 04/16/23 11:16 04/16/23 11:29 Temperature 97.7 F L Temperature Source Oral Pulse Rate 64 Respiratory Rate 18 Respiratory Effort Short of Breath Blood Pressure 176/95 H Blood Pressure [2nd BP] Blood Pressure Mean 122 Blood Pressure Mean [2nd BP] Blood Pressure Source [2nd BP] Blood Pressure Position [2nd BP] Blood Pressure Location [2nd BP] Pulse Ox 99 98 Oxygen Delivery Method Room Air Room Air 04/16/23 12:13 04/16/23 13:00 04/16/23 14:00 Temperature Temperature Source Pulse Rate 53 L 53 L 56 L Respiratory Rate 16 16 16 Respiratory Effort Blood Pressure 153/69 H 153/69 H 162/68 H Blood Pressure [2nd BP] Blood Pressure Mean 97 97 99 Blood Pressure Mean [2nd BP] Blood Pressure Source [2nd BP] Blood Pressure Position [2nd BP] Blood Pressure Location [2nd BP] Pulse Ox 96 96 99 Oxygen Delivery Method Room Air Room Air Room Air 04/16/23 14:28 04/16/23 15:00 04/16/23 15:58 Temperature 98.5 F Temperature Source Oral Pulse Rate 53 L 55 L 58 L Respiratory Rate 13 19 H 14 Respiratory Effort Blood Pressure 167/67 H 161/70 H Blood Pressure [2nd BP] 154/56 H Blood Pressure Mean 100 100 Blood Pressure Mean [2nd BP] 88 Blood Pressure Source [2nd BP] Monitor Blood Pressure Position [2nd BP] Semi-Fowlers Blood Pressure Location [2nd BP] Left Arm Pulse Ox 98 97 95 Oxygen Delivery Method Room Air Room Air Weight Weight: 204 lb 2.369 oz Body Mass Index (BMI) 26.9 Physical Exam Const alert and oriented x3 HEENT normocephalic Eyes PERRL Neck no lymphadenopathy Resp normal respiratory effort and no retractions Cardio regular rate GI normal to inspection, nondistended, normoactive bowel sounds Extremity Extremity Narrative: Tenderness on palpation in the upper back region, pain worsens with stretching of his upper back, Neuro oriented x3 Neuro Narrative: Has difficulty in hearing Psych affect normal Results Medical Records Data Attestation: I reviewed the patient's medical records Lab / Micro Data Attestation: I reviewed the patient's lab results. 04/16/23 11:25 04/16/23 11:25 Labs: Laboratory Results - last 24 hr 04/16/23 11:25: WBC 7.4, RBC 3.77 L, Hgb 12.1 L, Hct 36.2 L, MCV 96.0 H, MCH 32.1 H, MCHC 33.4, RDW Std Deviation 45.0 H, RDW Coeff of Guido 12.8, Plt Count 365, MPV 9.5, Immature Gran % (Auto) 0.300, Neut % (Auto) 76.4 H, Lymph % (Auto)13.6 L, [place] % (Auto) 5.5, Eos % (Auto) 3.1, Baso % (Auto) 1.1 H, Absolute Neuts(auto) 5.7, Absolute Lymphs (auto) 1.01, Nucleated RBC % 0, Sodium 135 L, Potassium 4.9, Chloride 101, Carbon Dioxide 29.0, Anion Gap 5, BUN 11, Creatinine 1.12, Estim Creat Clear Calc 58.46, Est GFR (MDRD) Af Amer 81, Est GFR (MDRD) Non-Af 67, BUN/Creatinine Ratio 9.8 L, Glucose 223 H, Calcium 9.5, Troponin I High Sens 8 04/16/23 13:40: Troponin I High Sens 6 Imagaing Radiology Impression Chest X-Ray 04/16/23 11:45 IMPRESSION: No acute pulmonary process Electronically Signed: Talon Betts MD at 12:24 EST Reading Location ID and State: [facility] / [place] , Service support , Assessment & Plan Assessment/Plan (1) Chest pain: PLAN: Plan Summary: 82 yr old presents for evaluation of chest pain and back pain followingfall few days back. His cardiac evaluation is negative and the pain is reproducible on movement and on palpation. 1. Upper back pain: It is consistent with musculoskeletal pain based on the normal cardiac evaluation, pain is reproducible on stretching exercises and alsolocal tenderness is present. Differentials include muscular strain due to the fall couple of days back. Will get physical therapy and Occupational Therapy evaluation and also assist in early rehabilitation. Can consider outpatient rehab if needed 2. Chest pain: There is no evidence of ongoing ischemia, troponins, EKG are normal. Recent stress test are normal. The first differential for the pain is musculoskeletal, no skin lesions to suspect viral infection. Unstable angina isvery unlikely. 3. Falls: No concerns regarding syncopal episode, fell down from a kneeling position. Would get physical therapy evaluation for balance. Has good support social support and lives with his . Could be related to propranolol leadingto orthostatic symptoms. We will hold it now 4. Hypertension continue home medications for now, have withheld propranolol asit can cause some orthostatic symptoms. Continue to monitor blood pressure closely. Charges/Coding Visit Charges Inpatient E&M: 18576 Init Hosp L2 04/16/231925 <Electronically signed by Juan Pike MD> Cosigner Signature (if applicable): CC: Dr. Juan Pike MD; Dr. George Vaughan MD~ Signed [facility] Work Phone: [phone]) [phone] Discharge summary Author Angel Dominguez [facility] April 16, 2023 3:16pm Note Date/Time April 16, 2023 11:38am [facility] Medical Records Department [address] [place] [address] Emergency Department Summary 04/16/23 MR#: [id number] Acct: [id number] Name: RONY MONZON Rep #:[id number] : 1940 82 From: Angel Mix DO PCP: Dr. George Vaughan MD Status:RE G ER Location: ED HPI <BRIE Ivey - Last Filed: 04/16/23 14:13> History of Present Illness Chief Complaint: Chest Pain Narrative Narrative: 82-year-old male with past medical history of HTN, HLD, CAD with stent has had intermittent chest pain since 5 PM yesterday. Pain is in the center of his chest and radiates to between his shoulder blades. He states it lasted a couplehours and has no aggravating or alleviating factors. It started at rest. He also feels mildly short of breath and nauseated when it occurs. No vomiting or diaphoresis. No radiation to his arm or jaw. He has no recent fever or cough. No leg pain or swelling. No history of DVT/PE or risk factors. He had 1 stent placed in the circumflex artery in 2010 at [facility]. He had a normal stress test in May [address] Kramer. He is on Plavix daily. PFS <BRIE Ivey - Last Filed: 04/16/23 14:13> [facility] Medical History Anxiety Arthritis Atherosclerotic heart disease of [place] coronary artery without angina pectoris Benign prostatic hypertrophy Cardiology follow-up encounter Chest pain Coronary artery disease COVID-19 (~01/18/22) Depression Dizziness and giddiness Dyspnea Easy bruising Enterococcus UTI Essential hypertension Fatigue Former smoker H/O appendicitis History of echocardiogram History of hiatal hernia History of stress test History of tilt table evaluation History of transesophageal echocardiography (VIOLETTE) Indwelling urethral catheter present 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 Low iron Neck pain on left side REHAN (obstructive sleep apnea) Precordial chest pain Presence of stent in coronary artery (~09/08/10) PTSD (post-traumatic stress disorder) Pulmonary hypertension Pure hypercholesterolemia Restless legs syndrome (RLS) Sepsis due to urinary tract infection Shortness of breath Syncope and collapse Walker as ambulation aid Wears glasses Wears hearing aid Home Medications fluoxetine 40 mg capsule (Prozac) 40 mg PO DAILY 07/04/18 [History Last Taken 07/13/21] acetaminophen 500 mg tablet (Tylenol Extra Strength) 500 mg PO Q6H PRN Pain 06/17/20 [History Last Taken 07/13/21] amlodipine 5 mg tablet 5 mg PO BID 03/17/21 [History Last Taken 07/14/21] multivitamin 1 tab PO DAILY 02/08/22 [History Last Taken Unknown] tizanidine 4 mg capsule 4 mg PO BID PRN muscle spasticity 02/08/22 [History Last Taken Unknown] clopidogrel 75 mg tablet 75 mg PO DAILY 05/05/22 [History Last Taken Unknown] nitroglycerin 0.4 mg sublingual tablet 0.4 mg sublingual Q5-15M PRN chest pain #25 tabs 05/26/22 [Rx Last Taken Unknown] rosuvastatin 10 mg tablet 10 mg PO QHS #90 tabs 11/24/22 [Rx Last Taken Unknown] lisinopril 10 mg tablet See Rx Instructions .Route .COMPLEX #180 tabs 03/02/23 [Rx Last Taken Unknown] oxycodone 5 mg tablet 5 mg PO Q6H PRN pain 04/16/23 [History Last Taken Unknown] propranolol 20 mg tablet 30 mg PO BID 04/16/23 [History Last Taken Unknown] Allergy/AdvReac Type Severity Reaction Status Date / Time hydrocodone [From Vicodin] Allergy Other Verified 03/13/23 11:45 orphenadrine Allergy Unknown Verified 03/13/23 11:45 pregabalin Allergy Swelling Verified 03/13/23 11:45 atorvastatin [From Lipitor] AdvReac Severe Intolerance Verified 03/13/23 11:45 ,Myalgias Family History Father CVA (cerebral vascular accident) Mother Cardiomegaly Brother CAD (coronary artery disease) Hx CABG and valve replacement Diabetes Brother History of heart valve replacement Brother Rheumatic fever Sister Hypertension Aortic aneurysm H/O aortic valve replacement Brother Cancer bladder Brother Thyroid disorder Surgical History H/O heart artery stent History of appendectomy History of colonoscopy History of hydrocelectomy History of right hip replacement History of vasectomy hx cervical stenosis Presence of coronary angioplasty implant and graft (~09/08/10) S/P right knee arthroscopy S/P TURP Social History household members: spouse housing: house Smoking Status: Former smoker pack-years: 20 Tobacco: How many years used: 22 second hand exposure: No alcohol intake: never substance use type: does not use caffeine: Yes Type: carbonated beverages Number of servings: 1 and tea what type of physical activity do you participate in: none seatbelt use: always do you feel safe at home: Yes ROS <BRIE Ivey - Last Filed: 04/16/23 14:13> ROS ED ROS Narrative Constitutional: Negative for fever, chills, malaise. CVS: Positive for chest pain. Negative for palpitations, syncope. Respiratory: Positive for shortness of breath. Negative for cough, orthopnea. GI: Negative for abdominal pain, vomiting, diarrhea, melena, hematochezia. Neuro: Negative for headache. EXAM <BRIE Ivey - Last Filed: 04/16/23 14:13> Physical Exam Narrative Exam Narrative: CONST: Patient sitting in no acute distress. EYES: Normal inspection. NECK: Normal inspection. RESP: No respiratory distress, CTAB. CVS: Regular rate and rhythm, no murmur, no gallop. ABD: Soft and nontender, no guarding or rebound, nondistended. Back: Normal inspection, no CVA tenderness. SKIN: Color normal, no rash, warm, dry, intact. EXTREMITIES: Normal appearance, no pedal edema. NEURO: Oriented x4. PSYCH: Normal affect. Const Vital Signs: 04/16/23 11:14 04/16/23 11:16 04/16/23 11:29 Temperature 97.7 F L Temperature Source Oral Pulse Rate 64 Respiratory Rate 18 Respiratory Effort Short of Breath Blood Pressure 176/95 H Blood Pressure Mean 122 Pulse Ox 99 98 Oxygen Delivery Method Room Air Room Air 04/16/23 12:13 04/16/23 13:00 04/16/23 14:00 Temperature Temperature Source Pulse Rate 53 L 53 L 56 L Respiratory Rate 16 16 16 Respiratory Effort Blood Pressure 153/69 H 153/69 H 162/68 H Blood Pressure Mean 97 97 99 Pulse Ox 96 96 99 Oxygen Delivery Method Room Air Room Air Room Air 04/16/23 14:28 Temperature Temperature Source Pulse Rate 53 L Respiratory Rate 13 Respiratory Effort Blood Pressure 167/67 H Blood Pressure Mean 100 Pulse Ox 98 Oxygen Delivery Method <Dr. Angel Mix DO - Last Filed: 04/16/23 15:16> Physical Exam Const Vital Signs: 04/16/23 11:14 04/16/23 11:16 04/16/23 11:29 Temperature 97.7 F L Temperature Source Oral Pulse Rate 64 Respiratory Rate 18 Respiratory Effort Short of Breath Blood Pressure 176/95 H Blood Pressure Mean 122 Pulse Ox 99 98 Oxygen Delivery Method Room Air Room Air 04/16/23 12:13 04/16/23 13:00 04/16/23 14:00 Temperature Temperature Source Pulse Rate 53 L 53 L 56 L Respiratory Rate 16 16 16 Respiratory Effort Blood Pressure 153/69 H 153/69 H 162/68 H Blood Pressure Mean 97 97 99 Pulse Ox 96 96 99 Oxygen Delivery Method Room Air Room Air Room Air 04/16/23 14:28 Temperature Temperature Source Pulse Rate 53 L Respiratory Rate 13 Respiratory Effort Blood Pressure 167/67 H Blood Pressure Mean 100 Pulse Ox 98 Oxygen Delivery Method <BRIE Ivey - Last Filed: 04/16/23 14:13> Heart Score History: Moderately Suspicious ECG: Normal Age: >/= 65 years Risk Factors: >/= 3 Risk Factors or History of CAD Troponin: </= Normal Limit Score: 5 <Dr. Angel Mix DO - Last Filed: 04/16/23 15:16> Heart Score Score: 5 MDM <BRIE Ivey - Last Filed: 04/16/23 14:13> [facility] Narrative Medical decision making narrative: History gathered from: Patient and spouse Patient has had intermittent chest pain rating between his shoulder blades since5 PM last night. Last several hours at a time and has been going on for severalhours this morning. He appears well and nontoxic. BP slightly elevated at 176/95 otherwise normal vital signs. He has a normal cardiopulmonary exam. He has no risk factors for DVT/PE and only no clinical evidence of DVT. EKG is normal sinus rhythm at 63 bpm with no ischemic changes and first troponin is 8. Delta is 6. Labs show stable anemia at 12.1. BMP only notable for glucose of 223 with normal CO2 and anion gap. Although cardiac enzymes are negative and hefeels somewhat improved after IV morphine he still has slight chest pain. With heart score of 5 I think he would benefit from admission for prompt cardiac workup as he has multiple risk factors. Case will be discussed with the hospitalist. Lab Data Attestation: I reviewed the patient's lab results. Labs: Laboratory Results - last 24 hr 04/16/23 04/16/23 11:25 13:40 WBC 7.4 RBC 3.77 L Hgb 12.1 L Hct 36.2 L MCV 96.0 H MCH 32.1 H MCHC 33.4 RDW Std Deviation 45.0 H RDW Coeff of Guido 12.8 Plt Count 365 MPV 9.5 Immature Gran % (Auto) 0.300 Neut % (Auto) 76.4 H Lymph % (Auto) 13.6 L [place] % (Auto) 5.5 Eos % (Auto) 3.1 Baso % (Auto) 1.1 H Absolute Neuts (auto) 5.7 Absolute Lymphs (auto) 1.01 Nucleated RBC % 0 Sodium 135 L Potassium 4.9 Chloride 101 Carbon Dioxide 29.0 Anion Gap 5 BUN 11 Creatinine 1.12 Estim Creat Clear Calc 58.46 Est GFR (MDRD) Af Amer 81 Est GFR (MDRD) Non-Af 67 BUN/Creatinine Ratio 9.8 L Glucose 223 H Calcium 9.5 Troponin I High Sens 8 6 Radiography Diagnostic Testing: Clinical Impression(s) from Imaging Studies Chest X-Ray 04/16/23 11:45 IMPRESSION: No acute pulmonary process Electronically Signed: Talon Betts MD at 12:24 EST , ED attending interpretation of 1-view chest x-ray shows normal heart size, no acute infiltrate, edema, or effusion. EKG Initial EKG: Attestation: I personally reviewed and interpreted this EKG as follows: Interpretation: Sinus Rhythm and No Acute Injury Pattern Comments: Normal sinus rhythm at 63 bpm No acute ischemic changes <Dr. Angel Mix, DO - Last Filed: 04/16/23 15:16> MDM MDM Narrative Medical decision making narrative: History gathered from: Patient and spouse Patient has had intermittent chest pain rating between his shoulder blades since5 PM last night. Last several hours at a time and has been going on for severalhours this morning. He appears well and nontoxic. BP slightly elevated at 176/95 otherwise normal vital signs. He has a normal cardiopulmonary exam. He has no risk factors for DVT/PE and only no clinical evidence of DVT. EKG is normal sinus rhythm at 63 bpm with no ischemic changes and first troponin is 8. Delta is 6. Labs show stable anemia at 12.1. BMP only notable for glucose of 223 with normal CO2 and anion gap. Although cardiac enzymes are negative and hefeels somewhat improved after IV morphine he still has slight chest pain. With heart score of 5 I think he would benefit from admission for prompt cardiac workup as he has multiple risk factors. Case will be discussed with the hospitalist. This patient was seen with a PA/LEGAL EXECUTIVE ASSISTANT Individually assessed they patient including history and physical. I have reviewed everything on the chart that is availableand agree with the documentation provided by the PA/LEGAL EXECUTIVE ASSISTANT including discussion about the assessment, treatment plan, discussion, and return precautions. Patient presented with continued chest pain. He has a cardiac risk. HEART score 5. CBC and BMP unremarkable. High-sensitivity troponin 8 and delta troponin is 6. Chest x-ray my interpretation shows no acute process. EKG normal sinus rhythm with a ventricular rate 63 bpm without sign of ischemic change or ectopy on my interpretation. Ultimately patient's work-up is negativehowever he continues to have some chest and back pain. He is given a second dose of morphine. Discussed at length and the patient decided he wanted to stay. Discussed with hospitalist for admission. Lab Data Labs: Laboratory Results - last 24 hr 04/16/23 04/16/23 11:25 13:40 WBC 7.4 RBC 3.77 L Hgb 12.1 L Hct 36.2 L MCV 96.0 H MCH 32.1 H MCHC 33.4 RDW Std Deviation 45.0 H RDW Coeff of Guido 12.8 Plt Count 365 MPV 9.5 Immature Gran % (Auto) 0.300 Neut % (Auto) 76.4 H Lymph % (Auto) 13.6 L [place] % (Auto) 5.5 Eos % (Auto) 3.1 Baso % (Auto) 1.1 H Absolute Neuts (auto) 5.7 Absolute Lymphs (auto) 1.01 Nucleated RBC % 0 Sodium 135 L Potassium 4.9 Chloride 101 Carbon Dioxide 29.0 Anion Gap 5 BUN 11 Creatinine 1.12 Estim Creat Clear Calc 58.46 Est GFR (MDRD) Af Amer 81 Est GFR (MDRD) Non-Af 67 BUN/Creatinine Ratio 9.8 L Glucose 223 H Calcium 9.5 Troponin I High Sens 8 6 Radiography Diagnostic Testing: Clinical Impression(s) from Imaging Studies Chest X-Ray 04/16/23 11:45 IMPRESSION: No acute pulmonary process Electronically Signed: Talon Betts MD at 12:24 EST Reading Location ID and State: [facility] / [place] , Service support , Discharge Plan Triage Chief Complaint: Chest Pain ED Midlevel Provider: Zeina Larios ED Provider: Angel Mix Dx/Rx/DC Orders Clinical Impression: Chest pain Prescriptions: No Action fluoxetine [Prozac] 40 mg capsule 40 mg PO DAILY Hold Instructions: until done with Zyvox Patient Comments: not taking while taking antibiotic linezolid acetaminophen [Tylenol Extra Strength] 500 mg tablet 500 mg PO Q6H PRN (Reason: Pain) tizanidine 4 mg capsule 4 mg PO BID PRN (Reason: muscle spasticity) nitroglycerin 0.4 mg tablet, sublingual 0.4 mg SUBLINGUAL Q5-15M PRN (Reason: chest pain) Qty: 25 1RF Rx Instructions: do not exceed 3 doses per episode multivitamin Tablet 1 tab PO DAILY oxycodone 5 mg tablet 5 mg PO Q6H PRN (Reason: pain) Patient Comments: TAKE 1 TO 2 TABLET BY MOUTH EVERY SIX HOURS NEEDED FOR PAIN propranolol 20 mg tablet 30 mg PO BID amlodipine 5 mg tablet 5 mg PO BID clopidogrel 75 mg tablet 75 mg PO DAILY rosuvastatin 10 mg tablet 10 mg PO QHS Qty: 90 3RF lisinopril 10 mg tablet See Rx Instructions .ROUTE .COMPLEX Qty: 180 3RF Dose Instruction: TAKE 1 TABLET BY MOUTH TWICE A DAY Rx Instructions: TAKE 1 TABLET BY MOUTH TWICE A DAY Primary Care Provider: George Vaughan Referrals: George Vaughan MD [Primary Care Provider] - What to do if you have Problems For any increased pain, shortness of breath, bleeding, nausea or vomiting, chestpain, or any unexpected problems, contact your Primary Care Provider. Call [facility] ([phone]) or report to the closest Emergency Room. Call 911 if necessary. 04/16/23 1516 <Electronically signed by Angel Mix DO> Cosigner Signature (if applicable): 04/16/23 1413 <Electronically signed by Zeina BAIRD> CC: Dr. George Vaughan MD ~ Signed [facility] Work Phone: 1(611) 476-285411-26-2023 Discharge summary Author [facility] April 16, 2023 3:16pm Note Date/Time April 16, 2023 11:38am [facility] Medical Records Department [address] [place] [address] Emergency Department Summary 04/16/23 MR#: [id number] Acct: [id number] Name: RONY MONZON Rep #:[id number] : 1940 82 From: Angel Mix DO PCP: Dr. George Vaughan MD Status:RE G ER Location: ED HPI <BRIE Ivey - Last Filed: 04/16/23 14:13> History of Present Illness Chief Complaint: Chest Pain Narrative Narrative: 82-year-old male with past medical history of HTN, HLD, CAD with stent has had intermittent chest pain since 5 PM yesterday. Pain is in the center of his chest and radiates to between his shoulder blades. He states it lasted a couplehours and has no aggravating or alleviating factors. It started at rest. He also feels mildly short of breath and nauseated when it occurs. No vomiting or diaphoresis. No radiation to his arm or jaw. He has no recent fever or cough. No leg pain or swelling. No history of DVT/PE or risk factors. He had 1 stent placed in the circumflex artery in 2010 at [facility]. He had a normal stress test in May [address] Kramer. He is on Plavix daily. PFSH <BRIE Ivey - Last Filed: 04/16/23 14:13> PFSH Medical History Anxiety Arthritis Atherosclerotic heart disease of [place] coronary artery without angina pectoris Benign prostatic hypertrophy Cardiology follow-up encounter Chest pain Coronary artery disease COVID-19 (~01/18/22) Depression Dizziness and giddiness Dyspnea Easy bruising Enterococcus UTI Essential hypertension Fatigue Former smoker H/O appendicitis History of echocardiogram History of hiatal hernia History of stress test History of tilt table evaluation History of transesophageal echocardiography (VIOLETTE) Indwelling urethral catheter present 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 Low iron Neck pain on left side REHAN (obstructive sleep apnea) Precordial chest pain Presence of stent in coronary artery (~09/08/10) PTSD (post-traumatic stress disorder) Pulmonary hypertension Pure hypercholesterolemia Restless legs syndrome (RLS) Sepsis due to urinary tract infection Shortness of breath Syncope and collapse Walker as ambulation aid Wears glasses Wears hearing aid Home Medications fluoxetine 40 mg capsule (Prozac) 40 mg PO DAILY 07/04/18 [History Last Taken 07/13/21] acetaminophen 500 mg tablet (Tylenol Extra Strength) 500 mg PO Q6H PRN Pain 06/17/20 [History Last Taken 07/13/21] amlodipine 5 mg tablet 5 mg PO BID 03/17/21 [History Last Taken 07/14/21] multivitamin 1 tab PO DAILY 02/08/22 [History Last Taken Unknown] tizanidine 4 mg capsule 4 mg PO BID PRN muscle spasticity 02/08/22 [History Last Taken Unknown] clopidogrel 75 mg tablet 75 mg PO DAILY 05/05/22 [History Last Taken Unknown] nitroglycerin 0.4 mg sublingual tablet 0.4 mg sublingual Q5-15M PRN chest pain #25 tabs 05/26/22 [Rx Last Taken Unknown] rosuvastatin 10 mg tablet 10 mg PO QHS #90 tabs 11/24/22 [Rx Last Taken Unknown] lisinopril 10 mg tablet See Rx Instructions .Route .COMPLEX #180 tabs 03/02/23 [Rx Last Taken Unknown] oxycodone 5 mg tablet 5 mg PO Q6H PRN pain 04/16/23 [History Last Taken Unknown] propranolol 20 mg tablet 30 mg PO BID 04/16/23 [History Last Taken Unknown] Allergy/AdvReac Type Severity Reaction Status Date / Time hydrocodone [From Vicodin] Allergy Other Verified 03/13/23 11:45 orphenadrine Allergy Unknown Verified 03/13/23 11:45 pregabalin Allergy Swelling Verified 03/13/23 11:45 atorvastatin [From Lipitor] AdvReac Severe Intolerance Verified 03/13/23 11:45 ,Myalgias Family History Father CVA (cerebral vascular accident) Mother Cardiomegaly Brother CAD (coronary artery disease) Hx CABG and valve replacement Diabetes Brother History of heart valve replacement Brother Rheumatic fever Sister Hypertension Aortic aneurysm H/O aortic valve replacement Brother Cancer bladder Brother Thyroid disorder Surgical History H/O heart artery stent History of appendectomy History of colonoscopy History of hydrocelectomy History of right hip replacement History of vasectomy hx cervical stenosis Presence of coronary angioplasty implant and graft (~09/08/10) S/P right knee arthroscopy S/P TURP Social History household members: spouse housing: house Smoking Status: Former smoker pack-years: 20 Tobacco: How many years used: 22 second hand exposure: No alcohol intake: never substance use type: does not use caffeine: Yes Type: carbonated beverages Number of servings: 1 and tea what type of physical activity do you participate in: none seatbelt use: always do you feel safe at home: Yes ROS <BRIE Ivey - Last Filed: 04/16/23 14:13> ROS ED ROS Narrative Constitutional: Negative for fever, chills, malaise. CVS: Positive for chest pain. Negative for palpitations, syncope. Respiratory: Positive for shortness of breath. Negative for cough, orthopnea. GI: Negative for abdominal pain, vomiting, diarrhea, melena, hematochezia. Neuro: Negative for headache. EXAM <BRIE Ivey - Last Filed: 04/16/23 14:13> Physical Exam Narrative Exam Narrative: CONST: Patient sitting in no acute distress. EYES: Normal inspection. NECK: Normal inspection. RESP: No respiratory distress, CTAB. CVS: Regular rate and rhythm, no murmur, no gallop. ABD: Soft and nontender, no guarding or rebound, nondistended. Back: Normal inspection, no CVA tenderness. SKIN: Color normal, no rash, warm, dry, intact. EXTREMITIES: Normal appearance, no pedal edema. NEURO: Oriented x4. PSYCH: Normal affect. Const Vital Signs: 04/16/23 11:14 04/16/23 11:16 04/16/23 11:29 Temperature 97.7 F L Temperature Source Oral Pulse Rate 64 Respiratory Rate 18 Respiratory Effort Short of Breath Blood Pressure 176/95 H Blood Pressure Mean 122 Pulse Ox 99 98 Oxygen Delivery Method Room Air Room Air 04/16/23 12:13 04/16/23 13:00 04/16/23 14:00 Temperature Temperature Source Pulse Rate 53 L 53 L 56 L Respiratory Rate 16 16 16 Respiratory Effort Blood Pressure 153/69 H 153/69 H 162/68 H Blood Pressure Mean 97 97 99 Pulse Ox 96 96 99 Oxygen Delivery Method Room Air Room Air Room Air 04/16/23 14:28 Temperature Temperature Source Pulse Rate 53 L Respiratory Rate 13 Respiratory Effort Blood Pressure 167/67 H Blood Pressure Mean 100 Pulse Ox 98 Oxygen Delivery Method <Dr. Angel Mix DO - Last Filed: 04/16/23 15:16> Physical Exam Const Vital Signs: 04/16/23 11:14 04/16/23 11:16 04/16/23 11:29 Temperature 97.7 F L Temperature Source Oral Pulse Rate 64 Respiratory Rate 18 Respiratory Effort Short of Breath Blood Pressure 176/95 H Blood Pressure Mean 122 Pulse Ox 99 98 Oxygen Delivery Method Room Air Room Air 04/16/23 12:13 04/16/23 13:00 04/16/23 14:00 Temperature Temperature Source Pulse Rate 53 L 53 L 56 L Respiratory Rate 16 16 16 Respiratory Effort Blood Pressure 153/69 H 153/69 H 162/68 H Blood Pressure Mean 97 97 99 Pulse Ox 96 96 99 Oxygen Delivery Method Room Air Room Air Room Air 04/16/23 14:28 Temperature Temperature Source Pulse Rate 53 L Respiratory Rate 13 Respiratory Effort Blood Pressure 167/67 H Blood Pressure Mean 100 Pulse Ox 98 Oxygen Delivery Method <BRIE Ivey - Last Filed: 04/16/23 14:13> Heart Score History: Moderately Suspicious ECG: Normal Age: >/= 65 years Risk Factors: >/= 3 Risk Factors or History of CAD Troponin: </= Normal Limit Score: 5 <Dr. Angel Mix DO - Last Filed: 04/16/23 15:16> Heart Score Score: 5 MDM <BRIE Ivey - Last Filed: 04/16/23 14:13> [facility] Narrative Medical decision making narrative: History gathered from: Patient and spouse Patient has had intermittent chest pain rating between his shoulder blades since5 PM last night. Last several hours at a time and has been going on for severalhours this morning. He appears well and nontoxic. BP slightly elevated at 176/95 otherwise normal vital signs. He has a normal cardiopulmonary exam. He has no risk factors for DVT/PE and only no clinical evidence of DVT. EKG is normal sinus rhythm at 63 bpm with no ischemic changes and first troponin is 8. Delta is 6. Labs show stable anemia at 12.1. BMP only notable for glucose of 223 with normal CO2 and anion gap. Although cardiac enzymes are negative and hefeels somewhat improved after IV morphine he still has slight chest pain. With heart score of 5 I think he would benefit from admission for prompt cardiac workup as he has multiple risk factors. Case will be discussed with the hospitalist. Lab Data Attestation: I reviewed the patient's lab results. Labs: Laboratory Results - last 24 hr 04/16/23 04/16/23 11:25 13:40 WBC 7.4 RBC 3.77 L Hgb 12.1 L Hct 36.2 L MCV 96.0 H MCH 32.1 H MCHC 33.4 RDW Std Deviation 45.0 H RDW Coeff of Guido 12.8 Plt Count 365 MPV 9.5 Immature Gran % (Auto) 0.300 Neut % (Auto) 76.4 H Lymph % (Auto) 13.6 L [place] % (Auto) 5.5 Eos % (Auto) 3.1 Baso % (Auto) 1.1 H Absolute Neuts (auto) 5.7 Absolute Lymphs (auto) 1.01 Nucleated RBC % 0 Sodium 135 L Potassium 4.9 Chloride 101 Carbon Dioxide 29.0 Anion Gap 5 BUN 11 Creatinine 1.12 Estim Creat Clear Calc 58.46 Est GFR (MDRD) Af Amer 81 Est GFR (MDRD) Non-Af 67 BUN/Creatinine Ratio 9.8 L Glucose 223 H Calcium 9.5 Troponin I High Sens 8 6 Radiography Diagnostic Testing: Clinical Impression(s) from Imaging Studies Chest X-Ray 04/16/23 11:45 IMPRESSION: No acute pulmonary process Electronically Signed: Talon Betts MD at 12:24 EST , ED attending interpretation of 1-view chest x-ray shows normal heart size, no acute infiltrate, edema, or effusion. EKG Initial EKG: Attestation: I personally reviewed and interpreted this EKG as follows: Interpretation: Sinus Rhythm and No Acute Injury Pattern Comments: Normal sinus rhythm at 63 bpm No acute ischemic changes <Dr. Angel Mix, DO - Last Filed: 04/16/23 15:16> [facility] MDM Narrative Medical decision making narrative: History gathered from: Patient and spouse Patient has had intermittent chest pain rating between his shoulder blades since5 PM last night. Last several hours at a time and has been going on for severalhours this morning. He appears well and nontoxic. BP slightly elevated at 176/95 otherwise normal vital signs. He has a normal cardiopulmonary exam. He has no risk factors for DVT/PE and only no clinical evidence of DVT. EKG is normal sinus rhythm at 63 bpm with no ischemic changes and first troponin is 8. Delta is 6. Labs show stable anemia at 12.1. BMP only notable for glucose of 223 with normal CO2 and anion gap. Although cardiac enzymes are negative and hefeels somewhat improved after IV morphine he still has slight chest pain. With heart score of 5 I think he would benefit from admission for prompt cardiac workup as he has multiple risk factors. Case will be discussed with the hospitalist. This patient was seen with a PA/LEGAL EXECUTIVE ASSISTANT Individually assessed they patient including history and physical. I have reviewed everything on the chart that is availableand agree with the documentation provided by the PA/LEGAL EXECUTIVE ASSISTANT including discussion about the assessment, treatment plan, discussion, and return precautions. Patient presented with continued chest pain. He has a cardiac risk. HEART score 5. CBC and BMP unremarkable. High-sensitivity troponin 8 and delta troponin is 6. Chest x-ray my interpretation shows no acute process. EKG normal sinus rhythm with a ventricular rate 63 bpm without sign of ischemic change or ectopy on my interpretation. Ultimately patient's work-up is negativehowever he continues to have some chest and back pain. He is given a second dose of morphine. Discussed at length and the patient decided he wanted to stay. Discussed with hospitalist for admission. Lab Data Labs: Laboratory Results - last 24 hr 04/16/23 04/16/23 11:25 13:40 WBC 7.4 RBC 3.77 L Hgb 12.1 L Hct 36.2 L MCV 96.0 H MCH 32.1 H MCHC 33.4 RDW Std Deviation 45.0 H RDW Coeff of Guido 12.8 Plt Count 365 MPV 9.5 Immature Gran % (Auto) 0.300 Neut % (Auto) 76.4 H Lymph % (Auto) 13.6 L [place] % (Auto) 5.5 Eos % (Auto) 3.1 Baso % (Auto) 1.1 H Absolute Neuts (auto) 5.7 Absolute Lymphs (auto) 1.01 Nucleated RBC % 0 Sodium 135 L Potassium 4.9 Chloride 101 Carbon Dioxide 29.0 Anion Gap 5 BUN 11 Creatinine 1.12 Estim Creat Clear Calc 58.46 Est GFR (MDRD) Af Amer 81 Est GFR (MDRD) Non-Af 67 BUN/Creatinine Ratio 9.8 L Glucose 223 H Calcium 9.5 Troponin I High Sens 8 6 Radiography Diagnostic Testing: Clinical Impression(s) from Imaging Studies Chest X-Ray 04/16/23 11:45 IMPRESSION: No acute pulmonary process Electronically Signed: Talon Betts MD at 12:24 EST Reading Location ID and State: [address] [place] [address] , Service support , Discharge Plan Triage Chief Complaint: Chest Pain ED Midlevel Provider: Zeina Larios ED Provider: Angel Mix Dx/Rx/DC Orders Clinical Impression: Chest pain Prescriptions: No Action fluoxetine [Prozac] 40 mg capsule 40 mg PO DAILY Hold Instructions: until done with Zyvox Patient Comments: not taking while taking antibiotic linezolid acetaminophen [Tylenol Extra Strength] 500 mg tablet 500 mg PO Q6H PRN (Reason: Pain) tizanidine 4 mg capsule 4 mg PO BID PRN (Reason: muscle spasticity) nitroglycerin 0.4 mg tablet, sublingual 0.4 mg SUBLINGUAL Q5-15M PRN (Reason: chest pain) Qty: 25 1RF Rx Instructions: do not exceed 3 doses per episode multivitamin Tablet 1 tab PO DAILY oxycodone 5 mg tablet 5 mg PO Q6H PRN (Reason: pain) Patient Comments: TAKE 1 TO 2 TABLET BY MOUTH EVERY SIX HOURS NEEDED FOR PAIN propranolol 20 mg tablet 30 mg PO BID amlodipine 5 mg tablet 5 mg PO BID clopidogrel 75 mg tablet 75 mg PO DAILY rosuvastatin 10 mg tablet 10 mg PO QHS Qty: 90 3RF lisinopril 10 mg tablet See Rx Instructions .ROUTE .COMPLEX Qty: 180 3RF Dose Instruction: TAKE 1 TABLET BY MOUTH TWICE A DAY Rx Instructions: TAKE 1 TABLET BY MOUTH TWICE A DAY Primary Care Provider: George Vaughan Referrals: George Vaughan MD [Primary Care Provider] - What to do if you have Problems For any increased pain, shortness of breath, bleeding, nausea or vomiting, chestpain, or any unexpected problems, contact your Primary Care Provider. Call [facility] ([phone]) or report to the closest Emergency Room. Call 911 if necessary. 04/16/23 1516 <Electronically signed by Angel Mix DO> Cosigner Signature (if applicable): 04/16/23 1413 <Electronically signed by Zeina BAIRD> CC: Dr. George Vaughan MD ~ Signed [facility] Work Phone: 1(361) 278-451510-08-2023 Miscellaneous Notes* Telephone Encounter - Deirdre Larios - 02/26/2023 1:43 PM EDT Patient given results and verbalized understanding of instructions given. Deirdre Larios * Telephone Encounter - Sveta Sepulveda APRN.CNP - 02/26/2023 10:03 AM EDT Please reach out and inform patient that his urine culture did not reveal bacterial growth. Please follow up with PCP for continued symptoms. [facility] Instructions* Patient Instructions* Charlotte Lombardo APRN.CNP - 02/25/2023 10:46 AM EDT Push fluids. Avoid caffeine. Follow-up with your primary care provider in 3 to 5 days if no improvement or sooner if worsening. [facility] History of Present illness Narrative* Charlotte Lombardo APRN.CNP - 02/25/2023 10:31 AM EDT CC: Patient presents with: UTI: Possible uti, frequency, burning x 2 days HPI Rony Monzon is a 82 year old male who presents today for above. Patient reports burning and urinary frequency for the past two days. Denies hematuria, urgency, hesitancy, slow stream, urinary incontinence, foul smelling or cloudy urine, fever, chills, abdominal pain, flank pain, nausea, vomiting. He had lumbar laminectomy one week and fell yesterday prompting an ER visit. CT lumbar spine showed post surgical changes but otherwise normal. Denies any significant increase in back or post op pain. Denies numbness, tingling, saddle anesthesia, incontinence of urine without sensory awareness. Hewas constipated initially after surgery but this has resolved. Denies catheretization. He has a post op appointment with his surgeon this Monday. Review of Systems Constitutional: Negative for chills, fatigue and fever. Gastrointestinal: Negative for abdominal distention, anal bleeding, blood in stool and rectal pain. Genitourinary: Negative for decreased urine volume, difficulty urinating, penile discharge, penile pain, penile swelling, scrotal swelling and testicular pain. Neurological: Negative for dizziness, weakness and light-headedness. Denies confusion/disorientation PAST MEDICAL HISTORY Diagnosis Date Adjustment disorder with depressed mood Anemia Benign neoplasm of colon Coronary artery disease Diabetes (HCC) Essential hypertension, benign Gallbladder polyp needs repeat ultrasound in 06/06 Impaired fasting glucose Internal hemorrhoids without mention of complication Other and unspecified hyperlipidemia Personal history of colonic polyps PAST SURGICAL HISTORY Procedure Laterality Date APPENDECTOMY ARTHRP ACETBLR/PROX FEM PROSTC AGRFT/ALGRFT Right 08/08/2018 Dr. Charly Suh CARDIAC CATH N/A 02/02/2015 Completed at [facility] COLONOSCOPY FLX DX W/COLLJ SPEC WHEN PFRMD 07/11/12 Colonoscopy COLONOSCOPY FLX DX W/COLLJ SPEC WHEN PFRMD 02/24/2017 Colonoscopy COLONOSCOPY W/BIOPSY SINGLE/MULTIPLE 03/29/06 ESOPHAGOGASTRODUODENOSCOPY TRANSORAL DIAGNOSTIC 02/24/2017 EGD [facility] W/O FACETEC FORAMOT/DSC / VRT SGM CRV Dr Cole PAST SURGICAL HISTORY OF Right 2007 knee surgery RPR [place] VAGINALIS HYDROCELE BOTTLE TYPE STENT PLACEMENT 08/2010 [facility] VASECTOMY UNI/BI SPX W/POSTOP SEMEN EXAMS ALLERGIES Lyrica [Pregabalin], Oxycontin [Oxycodone Hcl], Norflex [Orphenadrine Citrate], Vicodin [Hydrocodone-Acetaminophen], and Neurontin [Gabapentin] MEDICATIONS oxyCODONE IR (ROXICODONE) 5 mg immediate release tablet EVERY 6 HOURS NEEDED clopidogrel (PLAVIX) 75 mg tablet Take 1 tablet by mouth once daily. FLUoxetine (PROZAC) 40 mg capsule Take 1 capsule by mouth once daily. amoxicillin (AMOXIL) 500 mg capsule 4 capsules 1 hours prior to dental procedure. propranolol (INDERAL) 10 mg tablet Take 1 tablet by mouth twice daily. amLODIPine (NORVASC) 5 mg tablet Take 1 tablet by mouth twice daily. propranolol (INDERAL) 20 mg tablet Take 1 tablet by mouth twice daily. lisinopril (PRINIVIL) 10 mg tablet Take 1 tablet by mouth twice daily. Dr. Kramer nitroglycerin sublingual (NITROSTAT) 0.4 mg SL tablet Dissolve 1 tablet under the tongue every 5 minutes as needed for chest pain. acetaminophen (TYLENOL EXTRA STRENGTH) 500 mg tablet Take 1 tablet by mouth every 6 hours as neededfor pain. rosuvastatin (CRESTOR) 10 mg tablet Take 1 tablet by mouth daily at bedtime. multivitamin tablet Take 1 tablet by mouth once daily. FAMILY HISTORY Problem Relation Age of Onset Heart Brother valvular heart disease Heart Brother valvular heart disease Heart Brother valvular heart diease Hypertension Sister COPD Father Stroke Father Heart Mother Social History Tobacco Use Smoking status: Former Years: 20 Types: Cigarettes, Pipe Quit date: 1981 Years since quittin.7 Smokeless tobacco: Former Quit date: 05/22/1981 Tobacco comments: Quit in 1981 Vaping Use Vaping Use: Never used Substance Use Topics Alcohol use: No Drug use: No BP 144/58 Pulse 75 Temp 36.1 C (97 F) Resp 17 Wt 98.8 kg (217 lb 12.8 oz) SpO2 98% BMI 28.74 kg/m Physical Exam Constitutional: General: He is not in acute distress. Appearance: He is not ill-appearing. Cardiovascular: Rate and Rhythm: Normal rate and regular rhythm. Heart sounds: Normal heart sounds. No murmur heard. Pulmonary: Effort: Pulmonary effort is normal. Breath sounds: Normal breath sounds. No wheezing, rhonchi or rales. Abdominal: General: Abdomen is flat. Bowel sounds are normal. There is no distension. Palpations: Abdomen is soft. Tenderness: There is no abdominal tenderness. Neurological: Mental Status: He is alert. DATA REVIEWED: ER visit 02/[address] scans ASSESSMENT/PLAN: 1. Urinary frequency - ICD9: 788.41, ICD10: R35.0 (primary diagnosis) Etiology unclear. No evidence of infection on urine dip. No alarm symptoms or exam findings. Patient admits to not drinking enough water. Encouraged to push fluids and avoid caffeine. concerned symptoms may be related to back surgery or fall yesterday. Reassurance given that it is unlikely there is any correlation. Follow-up with surgeon as scheduled. Schedule close follow-up with PCP in 3 to 5 days - UA DIP, URINE (POC) negative - send URINE CULTURE 2. Dysuria - ICD9: 788.1, ICD10: R30.0 As above Prescription instructions reviewed with patient as applicable. Potential red flag symptoms discussed with the patient. Reviewed appropriate action plan to take if red flag symptoms occur. Patient agreeable to treatment plan. Charlotte Lombardo APRN.CNP documented in this encounterAdena [facility]10-03-2023 Miscellaneous Notes* Telephone Encounter - Zander Chavez APRN.CNP - 02/21/2023 11:23 AM EDT The following approved medication requests have been transmitted electronically. Requested Prescriptions Pending Prescriptions Disp Refills clopidogrel (PLAVIX) 75 mg tablet 90 tablet 3 Sig: Take 1 tablet by mouth once daily. FLUoxetine (PROZAC) 40 mg capsule 90 capsule 3 Sig: Take 1 capsule by mouth once daily. Zander Chavez APRN.THANG * Telephone Encounter - Ana Tong Ma - 02/21/2023 11:17 AM EDT Last office visit: 11/03/22 F/u scheduled: 05/05/23 Ana Tong Ma * Telephone Encounter - Carline Crandall - 02/21/2023 10:51 AM EDT Patient has been identified by name and date of : Yes Requested Prescriptions Pending Prescriptions Disp Refills clopidogrel (PLAVIX) 75 mg tablet 90 tablet 0 Sig: Take 1 tablet by mouth once daily. FLUoxetine (PROZAC) 40 mg capsule 90 capsule 3 Sig: Take 1 capsule by mouth once daily. RX INSTRUCTIONS: Patient aware RX will be sent to pharmacy. No need to notify patient. Carline Crandall documented in this encounterAdena Pike [facility] Center09-21-2023 Miscellaneous Notes* Telephone Encounter - Lakeisha Narvaez MA - 02/09/2023 12:59 PM EDT Requested all spine records from [facility] 02/09/23 from [facility] F: [phone]. Lakeisha Narvaez MA documented in this encounterAdena Pike [facility] Center09-05-2023 Miscellaneous Notes* Telephone Encounter - Angela Hunt RN - 01/24/2023 10:18 AM EDT Left detailed message for dental office. Advised to call back with any questions or concerns. * Telephone Encounter - Bettina Lizarraga PA-C - 01/24/2023 10:09 AM EDT I am not sure what you mean by premed clearance. Patient just needs an antibiotic prior to his exam/cleaning and or dental work. We suggest 2 grams of amoxicillin 1 hours prior to procedure. I sent aprescription to the patients pharmacy, [facility], or the dentists office can provide antibiotic. * Telephone Encounter - Kirti Ramirez RN - 01/24/2023 9:30 AM EDT Received call from Savita at [facility] requesting premed clearance for dental exam and possible procedures the patient is having done today. Pt had hip replacement in 2019. Kirti Ramirez RN documented in this encounterAdena Pike Medical Center08-29-2023 Miscellaneous Notes* Telephone Encounter - Madisyn Gonsales Ma - 01/17/2023 4:59 PM EDT Last OV printed and faxed to information below. Madisyn Gonsales Ma * Telephone Encounter - George Vaughan MD - 01/17/2023 4:55 PM EDT Form done, may send along with last office note George Vaughan MD * Telephone Encounter - Ana Tong Ma - 01/12/2023 1:29 PM EDT Type of letter/form/fax request - Medical Clearance Form received from fax on 1 floor and placed on MD desk (Dr. Vaughan) for completion. Completed form needs to be faxed to [facility] at [phone]. Last OV in November 03, 2022. Pt scheduled for Hemilaminectomy L2; Laminectomy L3-5 on 02/14/23 with . Pt scheduled for Pre Admission Testing on 02/03/23. Route to ID when form completed for processing documented in this encounterAdena Pike Medical Center08-10-2023 History of Present illness Narrative* Halima Harvey, VIDA.FORM [employer] - 12/29/2022 10:45 AM EDT Images from the original note were not included. [facility] [place] Follow-up Visit Follow-up note December 29, 2022 HPI: Mr. Monzon presents today for a follow-up visit. Per his previous visit on 02/17/22: R51.9 Headaches (primary encounter diagnosis) Comment: Hx of headaches located in posterior cervical region radiating up posteriorly on both R and L. Treatments in the past have included use of muscle relaxant, gabapentin, and lyrica; all of which were unsuccessful due to SE or no relief of sx. Has also completed PT for headaches. MRI of brainand cervical spine were completed in interim to evaluate for intracranial or cervical changes contributing to sx. See results noted below. Since time of previous appointment he reports improvement inheadaches with roughly two to three over the past month. Can continue prn abortive medications and further recommendations regarding cervical spine below. 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 Notable past history of cervical surgery as well as lumbar stenosis. Also with recent R hip replacement with residual RLE weakness. Given past hx of myelomalacia noted on MRI of cervical spine and increase in falls, MRI of cervical spine repeated.Stable myelomalacia noted at C5-6 as well as severe foraminal stenosis. MRI of lumbar spine previously completed in 11/10 noting severe canal stenosis at L3-4 and L4- 5. Pt reports he had previously had follow up with neurosurgery/spine medicine and had discussed possible surgical intervention. Recommend follow up for further discussion and new consult to neurosurgery placed. Concern that cervical and/or lumbar findings are contributing to gait instability, further complicated by hx of orthostatic hypotension. R42 Lightheadedness Comment: Hx of chronic dizziness and lightheadedness. Past cardiac testing includes positive tilt table testing. Previous orthostatic VS obtained in office positive. He continues to follow with cardiology for medication adjustments. Discussed recommendations for increased fluid intake, use of compression stockings, and making slow position changes. R25.1 Tremor of right hand Comment: Pt previously reporting tremor to BUE, worse in R hand. No tremor noted at rest. Pt has since had follow up with movement disorder clinic. Dx of essential tremor. Recommendation made to continue propanolol 20mg BID. Pt to follow up if tremor changes or worsens. I63.9 Cerebrovascular accident (CVA), unspecified mechanism (HCC) Comment: MRI of brain completed to evaluate for changes contributing to headaches, gait instability, and tremor. 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 CTA head/neck ordered for further evaluation as well as outpt teletypesetter monitor. SVT noted and pt previously informed to follow up with his human resource intern and results faxed to [facility]; no afib noted. CTA however, confirming infarct in L caudothalamic groove as well las similar smaller insult on R. Given this finding, pt was started on DAPT (currently taking ASA 81mg and Plavix) and repeat MRI of brain ordered for further evaluation. Pending results may transition pt from ASA to Plavix. Incidental finding of thyroidnodule and nonspecific airspace disease in L lung also noted on CTA and pt encouraged to follow up with PCP. Recommend continuing stating therapy (currently taking Crestor 10mg). Goals for stroke prevention at this time are BP <140/90 and BG <140. Continue to get adequate physical activity wit hin limitations. States he has been doing ok. Been seen by the [facility] and was recommended he consider back surgery. Will be going back January 09. Was seeing Dr. Tristan but cannot do further injections. Hashad a few falls; 2 in October 27 and ). Did not hit his head. Feels this may be due to weakness in his legs. Did not feel lightheaded when he fell. One time when he fell it was very steep. Walking has not been great. Blood pressure has been good. States it is usually above 120 systolic. Had appt with cardiology. Tired all the time. Feels he is bored; cannot do what he would like to do. Does not snore. Used to use a CPAP. Did not feel he slept better or was more rested so stopped using it. This was over a year ago. Has felt fatigued for some time. Drinks about 4-5 12 oz of water per day. Has not started using compression stockings. Not feeling lightheaded though later states if standing for 5-10 min he will feel lightheaded or like he could fall. Tremor to R hand. Still taking propanolol 20mg twice daily. Worse on R. Eating is becoming difficult. Difficulty drinking from a glass. Difficulty with handwriting. No tremor to L arm, legs, or head.Denies changes in smell or taste. Denies freezing. Does shuffle. + RBD. No factors that worsen the tremor. Does not drink alcohol. Some difficulty with buttons. Denies new stroke symptoms. Denies new tingling. Feels generally weaker. Denies slurred or garbled speech. Sometimes sees two of something. Has seen ophthalmology. Had cataracts removed last year in December. Still taking Plavix regularly. Following with PCP for cholesterol. Was seeing Dr. Guajardo with pulmonary for CPAP. Headaches have not changed. No change in characteristics. PAST MEDICAL HISTORY Diagnosis Date Adjustment disorder with depressed mood Anemia Benign neoplasm of colon Coronary artery disease Diabetes (HCC) Essential hypertension, benign Gallbladder polyp needs repeat ultrasound in 06/06 Impaired fasting glucose Internal hemorrhoids without mention of complication Other and unspecified hyperlipidemia Personal history of colonic polyps PAST SURGICAL HISTORY Procedure Laterality Date APPENDECTOMY ARTHRP ACETBLR/PROX FEM PROSTC AGRFT/ALGRFT Right 08/08/2018 Dr. Charly Suh CARDIAC CATH N/A 02/02/2015 Completed at [facility] COLONOSCOPY FLX DX W/COLLJ SPEC WHEN PFRMD 07/11/12 Colonoscopy COLONOSCOPY FLX DX W/COLLJ SPEC WHEN PFRMD 02/24/2017 Colonoscopy COLONOSCOPY W/BIOPSY SINGLE/MULTIPLE 03/29/06 ESOPHAGOGASTRODUODENOSCOPY TRANSORAL DIAGNOSTIC 02/24/2017 EGD [place] W/O FACETEC FORAMOT/DSC 05/[address] Cole PAST SURGICAL HISTORY OF Right 2007 knee surgery RPR [place] VAGINALIS HYDROCELE BOTTLE TYPE STENT PLACEMENT 08/2010 [facility] VASECTOMY UNI/BI SPX W/POSTOP SEMEN EXAMS Current Outpatient Medications on File Prior to Visit Medication Sig Ciclopirox (LOPROX) 8 % solution Apply to affected area daily at bedtime. clopidogrel (PLAVIX) 75 mg tablet TAKE 1 TABLET BY MOUTH EVERY DAY amLODIPine (NORVASC) 5 mg tablet Take 1 tablet by mouth twice daily. propranolol (INDERAL) 20 mg tablet Take 1 tablet by mouth twice daily. FLUoxetine (PROZAC) 40 mg capsule Take 1 capsule by mouth once daily. tiZANidine (ZANAFLEX) 4 mg tablet TAKE 1 TABLET BY MOUTH EVERY 6 HOURS NEEDED (MUSCLE SPASMS) FOR UP TO 10 DAYS. (Patient not taking: Reported on 12/19/2022) lisinopril (PRINIVIL) 10 mg tablet Take 1 tablet by mouth twice daily. Dr. Kramer nitroglycerin sublingual (NITROSTAT) 0.4 mg SL tablet Dissolve 1 tablet under the tongue every 5 minutes as needed for chest pain. acetaminophen (TYLENOL EXTRA STRENGTH) 500 mg tablet Take 1 tablet by mouth every 6 hours as neededfor pain. rosuvastatin (CRESTOR) 10 mg tablet Take 1 tablet by mouth daily at bedtime. multivitamin tablet Take 1 tablet by mouth once daily. No current facility-administered medications on file prior to visit. Social History Tobacco Use Smoking status: Former Years: 19.00 Types: Cigarettes, Pipe Quit date: 1981 Years since quittin.6 Smokeless tobacco: Former Quit date: 05/22/1981 Tobacco comments: Quit in 1981 Vaping Use Vaping Use: Never used Substance Use Topics Alcohol use: No Drug use: No ALLERGIES Allergen Reactions Lyrica [Pregabalin] Swelling B/L hand swelling Oxycontin [Oxycodon* Mental Status Change Hallucinating and Erratic hand movement. Norflex [Orphenadri* GI Upset Vicodin [Hydrocodon* nightmares Neurontin [Gabapent* Swelling Feels that he does not have a true allergy to this medication. States he had swelling, not rash. Review of Systems: Constitutional: denies fever, weight loss, + loss of appetite ENT: Denies + loss of hearing, vertigo Vision: denies blurring vison, + double vision/diplopia (without glasses) Cardiopulmonary: denies chest pain, palpitations Respiratory: denies shortness of breath GI: denies recent nausea, vomiting, diarrhea, constipation : denies incontinence Musculoskeletal: denies + weakness Back/spine: denies + low back or + cervical pains Neuro: denies tremors, loss of feeling, dizziness, seizure, blackout, paresthesia, facial paresthesia, facial weakness, + difficulty in speech (baseline stutter), slurring of words, dysarthria, dysphagia, memory loss, + headache Physical Exam: 12/29/22 1042 BP: 126/62 Pulse: 64 Resp: 16 SpO2: 97% Weight: 98.3 kg (216 lb 12.8 oz) Patient is alert and in no distress. Dress is appropriate. Mood is appropriate Breathing appears regular and unstressed Neurologic examination: Cognitively intact. No deficits. No formal MMSE performed. CN: Pupils equal and reactive to light, extraocular movements intact with no nystagmus, face is symmetric with no facial droop, hearing decreased bilaterally, symmetric evaluation of the soft palate,tongue is midline with no deviation, shoulder shrug is symmetric. Motor exam shows 5/5 strength symmetric through the upper and lower extremities in all groups tested. Sensory intact to light touch in all extremities. Vibratory sensation is intact and symmetric all extremities. Deep tendon reflexes are decreased symmetrically at the biceps, brachioradialis, triceps, patella, and achilles bilaterally. Coordination: No dysmetria on finger to nose. No tremors noted. No drift seen. Stable gait. No shuffling. SHIRLENE of pronation and supination, finger and hand tapping intact. Toe tapping intact. No rigidity. Tremor to BUE with arms outstretched; R>L. Decreased R arm swing; four step turn. Labs/studies: CT Brain Report CTA HEAD W IVCON Exam End: 01/25/2022 10:41 AM (Final result) Narrative: * * *Final Report* * * DATE OF EXAM: Jan 25 2022 10:41AM [facility] 0022 - CTA HEAD W IVCON / PROCEDURE REASON: Cerebral infarction, unspecified mechanism (HCC) * * * * Physician Interpretation * * * * EXAMINATION: CTA NECK W IVCON, CTA HEAD W IVCON HISTORY: Neurology conversation Epic (electronic medical record) Encounter (USING CUT AND PASTE FEATURE) 12/07/2021: MRI of brain does show a small stroke. This was noted to be subacute which means it likely happened within the past few weeks. As sx have been present for over a year this would not be the cause. However, given finding would like to proceed with additional imaging of blood vessels to evaluate for any areas of narrowing. Would also recommend completing outpatient teletypesetter monitor to evaluate for abnormal heart rhythm. If pt is agreeable will enter orders. Please ensure patient is taking ASA and cholesterol medication as noted in chart. NOTE: CUTTING AND PASTING from Epic to the dictation system appears to introduce QUESTION CHOU after report finalization not visible during the dictation/within the dictation system itself even if reloaded for an addendum. Presumably a glitch in coding between the systems. Inappropriateness of the QUESTION CHOU usually clear from the context. If indeterminate, please refer to the original report in Epic. Additionally, not responsible for any errors in the PASTED INFORMATION whether historical, contextual, typographical, grammatical, or otherwise. For REFERENCE PURPOSES only and any concerns regarding the content should be raised with the actual provider for the given Epic encounter. TECHNIQUE: Spiral high resolution axial images were obtained through the head, neck and superior mediastinum following bolus administration of intravenous contrast for CT angiography. 3D maximum intensity projection images were created, reviewed and archived . MQ: [id number]_4 Contrast: 85 mL Omnipaque [address] Radiation dose: Integrated Dose-Length Product (DLP) for this visit = 847 mGy*cm. CT Dose Reduction Employed: Automated exposure control(AEC) and iterative recon COMPARISON: MRI brain and cervical spine 12/01/2021. RESULT: Conditioning Coach (topogram) images: No additional findings. A 3-vessel aortic arch is identified with no significant disease of the great vessel origins. 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 Atheromatous calcification at the carotid bifurcations. Robust dominant left vertebral artery with minimal atheromatous calcification at the origin. No occlusion, convincing stenosis, or dissection of the extracranial anterior or posterior circulations. Right ICA (% stenosis by NASCET criteria): 0. Left ICA (% stenosis by NASCET criteria): 0. Atheromatous calcification of the intracranial internal carotid arteries. No occlusion, high-grade stenosis, or aneurysm formation of the intracranial anterior posterior circulations. The right posterior inferior cerebellar artery arises from the basilar artery. No gross acute intracranial process. 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 Spot Sign Presence: Not Applicable Spot Sign Number: Not Applicable Patent dural venous sinuses/deep venous system. 2.4 cm left thyroid nodule. 2 cm nonspecific airspace disease left lateral lung apex abutting the pleura. C4-C5 posterior decompression. Exaggeration of thoracic kyphosis with chronic multilevel endplate deformities most pronounced superior C7. Multilevel degenerative changes superimposed on congenitally short pedicles with canal stenosis as better delineated on MRI. No superimposed lytic or blastic process. Impression: IMPRESSION: 1. 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 2. 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 3. 2.4 cm left thyroid nodule. 4. 2 cm nonspecific airspace disease left lateral lung apex abutting the pleura. Arterial blood flow was measured to detect acute large vessel occlusion by computer aided detection software: Not Performed. Concordance between software and imaging review: Not Applicable. Incidental Finding: Follow-up Acuity: Incidental Finding: Non solid 6 mm or greater (solitary nodule) Routing Code: RI_1 Recommendation: CT Chest WO IVCON Time Frame: 6-12 months Comments: If stable on follow-up imaging, repeat chest CT exams in 24 and 48 months are recommended (at 30-36 and 54-60 months from the initial exam) ACTIONABLE RESULT: FOLLOW-UP Acuity: Actionable Findings: Endocrine (thyroid) Routing Code: EMI_1 Recommendation: US THYROID/PARATHYROID Time Frame: At the discretion of the clinical team. COMMUNICATION: Results will be communicated with the ordering provider via [employer] staff message or phone message by Imaging Support Services within 2 business days of report finalization. Algorithms for management of incidental imaging findings can be found on the [facility] Intranet Sharepoint site at: [email or web address] Research Soil Scientist: KENTRELL Transcribe Date/Time: Jan 25 2022 10:57A Dictated by : SELWYN REED MD This examination was interpreted and the report reviewed and electronically signed by: SELWYN REED MD on Jan 25 2022 11:14AM EST MRI Report MRI BRAIN WO IVCON Exam End: 12/01/2021 8:42 AM (Edited Result - FINAL) Addendum: * * *Final Report* * * DATE OF EXAM: Dec 01 2021 8:42AM [facility] [id number] - MRI BRAIN WO IVCON / PROCEDURE REASON: multiple diagnoses * * * * Physician Interpretation * * * * EXAMINATION: MRI BRAIN WO IVCON CLINICAL HISTORY: Frequent falls, tremor of the right and, headaches TECHNIQUE: Routine noncontrast MRI protocol including diffusion images. MQ: [id number] COMPARISON: Brain MRI 04/26/2016 RESULT: Acute Change: There is a small focus of restricted diffusion around the left caudothalamic groove, with associated T2/FLAIR hyperintensity, without significant mass effect. This may represent a subacute infarction. The size is up to 9 mm. Inferior margins would extend towards the hypothalamus on the left, may involve the margins of the posterior limb of the internal capsule, and some anterior-inferior thalamic nuclei. Hemorrhage: No evidence of prior parenchymal hemorrhage on the gradient echo images. Mass Lesion/ Mass Effect: No evidence of an intracranial mass or extra-axial fluid collection. No significant mass effect. Chronic Change: The white matter is within normal limits of signal intensity for age. Parenchyma: There is now mild-moderate generalized parenchymal volume loss, which is significantly progressed since 2016. The brain parenchyma is otherwise within normal limits of signal intensity and morphology. Ventricles: Normal caliber and morphology. Skull Base: Hypothalamic and pituitary region are grossly normal. Craniocervical junction is normal. No significant marrow replacement process. Vasculature: Major intracranial arterial structures, and dural venous sinuses show typical flow void, suggesting patency by spin echo criteria. Other: Again seen is some minor mucosal thickening in the paranasal sinuses, mildly reconfigured since 2016. Visualized paranasal sinuses and mastoid air cells are clear. The orbits and extracranial soft tissues are unremarkable. IMPRESSION: 1. LIKELY SMALL SUBACUTE INFARCT IN LEFT CAUDOTHALAMIC GROOVE 2. NO HEMORRHAGE OR SIGNIFICANT MASS EFFECT 3. MILD HAVE A MODERATE VOLUME LOSS, NOTABLY PROGRESSED SINCE 2016 Research Soil Scientist: [facility]ATION HOSPITALLizzie Transcribe Date/Time: Dec 01 2021 9:12A Dictated by : CHIKI AMAYA MD This examination was interpreted and the report reviewed and electronically signed by: CHIKI AMAYA MD on Dec 01 2021 9:32AM [facility] [place] Provider12/01/2021 9:32 AM MRI Spine Report MRI CERVICAL SPINE WO IVCON Exam End: 12/01/2021 8:42 AM (Final result) Narrative: * * *Final Report* * * DATE OF EXAM: Dec 01 2021 8:42AM [facility] 0297 - MRI CERVICAL SPINE WO IVCON / PROCEDURE REASON: Spinal stenosis of cervical region * * * * Physician Interpretation * * * * EXAMINATION: MRI CERVICAL SPINE WO IVCON CLINICAL HISTORY: Myelomalacia TECHNIQUE: Routine cervical spine MR protocol without gadolinium. MQ: [id number] COMPARISON: Cervical MRI 04/26/2016 RESULT: Counting reference: Craniocervical junction. Anatomic Variants: None. Localizer images: No additional findings Alignment: Alignment remains anatomic. Post surgical change: Again seen are remote laminectomy changes involving C4-5-6, unchanged Craniocervical junction: Craniocervical junction is normal. Cord: Redemonstrated is myelomalacia centered at C5-6, and is grossly similar. Given location concordant with laminectomy, and some disc osteophyte anteriorly, this may be the sequela of a remote compressive myelopathy insula. Bone marrow signal/fracture: No evidence of pathologic marrow infiltration. No evidence of prior fracture. Cervical soft tissues: The paraspinal soft tissues are within normal limits. C2-C3: Canal and foramina remain patent C3-C4: Canal and foramina remain patent C4-C5: Stable ample decompression from laminectomy, foramina remain grossly patent C5-C6: Redemonstration of posterior disc osteophyte in the left paramedian region, grossly unchanged. Ample decompression from laminectomy. Stable severe right and moderate-severe left foraminal narrowing C6-C7: Canal and foramina remain patent C7-T1: Canal and foramina remain patent Impression: IMPRESSION: 1. 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 STABLE POST SURGICAL CHANGES FROM LAMINECTOMIES 3. NO HIGH-GRADE CENTRAL STENOSIS 4. FORAMINAL STENOSIS REMAINS GREATEST AT SEVERE RIGHT C5-6 Anatomic Variant: None. Assume 7 cervical vertebrae with counting from the craniocervical junction. Research Soil Scientist: KENTRELL Transcribe Date/Time: Dec 01 2021 9:30A Dictated by : CHIKI AMAYA MD This examination was interpreted and the report reviewed and electronically signed by: CHIKI AMAYA MD on Dec 01 2021 9:36AM EST Previously Reviewed: MRI Spine Report MRI CERVICAL SPINE WO IVCON ([place]) Collected: 04/26/2016 4:09 PM (Final result) Narrative: * * *Final Report* * * DATE OF EXAM: Apr 26 2016 4:09PM VEE 0297 - MRI CERVICAL SPINE WO IVCON / PROCEDURE REASON: Cervicalgia * * * * Physician Interpretation * * * * RESULT: EXAMINATION: MRI BRAIN WO/W IVCON, MRI CERVICAL SPINE WO IVCON HISTORY: Headache. Cervicalgia. COMPARISON: Prior MRI cervical from 06/11/2009. No prior MRI brain for comparison. TECHNIQUE MR BRAIN: Routine MR brain with diffusion weighted scans and postcontrast T1-weighted scans. No MRA. MR Contrast: Dotarem MR Contrast Volume (ml): 20 MR Contrast Route of Administration: IV TECHNIQUE MR CERVICAL: Routine cervical MRI protocol without intravenous contrast. RESULT: Acute Change: There is no evidence of restricted diffusion to suggest an acute infarct. Hemorrhage: No evidence of prior parenchymal hemorrhage on the gradient echo images.. Mass Effect / Mass Lesion: No evidence of an intracranial mass or extra-axial fluid collection. No significant mass effect. No abnormal enhancement. Chronic Change: The white matter is within normal limits of signal intensity for age. Parenchyma: No significant volume loss for age. The brain parenchyma is otherwise within normal limits of signal intensity and morphology. Ventricles: Normal caliber and morphology. Skull Base: Hypothalamic and pituitary region are grossly normal. Craniocervical junction is normal. No significant marrow replacement process. Vasculature: Major intracranial arterial structures, and dural venous sinuses show typical flow void, suggesting patency by spin echo criteria. Other: Mucosal thickening in the ethmoid air cells and left frontal sinus. Small retention cysts in the maxillary, with inspissation on the right. MRI CERVICAL: Counting reference: Craniocervical junction. Alignment: Alignment is anatomic. Craniocervical junction: Craniocervical junction is normal. Bone marrow / fracture: There is no evidence of pathologic marrow infiltration. No evidence of acute or chronic fracture. Cord: Focal cord atrophy and T2 hyperintense signal compatible with a small focus of myelomalacia at the C5-6 level, stable. Cervical soft tissues: The paraspinal soft tissues planes are maintained. C2-C3: Thickening of the posterior longitudinal ligament mildly effacing the ventral canal. No significant canal or foraminal stenosis. C3-C4: Mild disc degeneration. No significant canal or foraminal stenosis. C4-C5: Mild disc degeneration without significant canal stenosis. Uncovertebral and facet hypertrophy contribute to mild bilateral neural foraminal narrowing. Findings at this level are stable. C5-C6: Central disc protrusion effaces the ventral canal and results in mild to moderate canal stenosis. Uncovertebral and facet hypertrophy result in moderate-severe right and moderate left neural foraminal narrowing. Findings at this level are stable. C6-C7: Mild disc degeneration. No significant canal or foraminal stenosis. C7-T1: Canal and foramina are patent. Impression: IMPRESSION: MRI brain demonstrates no acute intracranial finding. Paranasal sinus disease as mentioned. Stable appearance of the cervical spine. Central disc protrusion at C5-6 resulting in mild-moderate canal stenosis, and focal myomalacia in the cervical cord at C5-6 level are unchanged. Moderate-severe right and moderate left neural foraminal narrowing at C5-6, stable. Left thyroid T2 hyperintense nodule measuring up to 2.0 cm is indeterminate. Follow-up thyroid ultrasound is recommended. Incidentally Detected Thyroid Nodule(s): Patient 35 years or older, nodule 1.5cm or larger and no suspicious imaging findings: Recommend dedicated thyroid US follow-up Mike et al. J Am Viviana Radiol 12:143-150; 2015 Research Soil Scientist: KENTRELL Transcribe Date/Time: Apr 26 2016 5:19P Dictated by : RAD CHAUHAN MD This examination was interpreted and the report reviewed and electronically signed by: RAD CHAUHAN MD on Apr 26 2016 5:32PM EST Complete Results MRI Lumbar Spine 10/27/21: Assessment/Plan: R51.9 Headaches (primary encounter diagnosis) Comment: Headaches remain stable. Still located in posterior cervical region radiating up posteriorly on both R and L. Treatments in the past have included use of muscle relaxant, gabapentin, and lyrica; all of which were unsuccessful due to SE or no relief of sx. Has also completed PT for headaches. MRI C spine noting up to severe degenerative changes and previously recommended follow up with neurosurgery/spine medicine. He reports upcoming appointment in two weeks. Defers further daily preventative at time. Continue prn OTC medications. 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 Notable past history of cervical surgery as well as lumbar stenosis and R hip replacement. Concern that C and L spine dz are contributing to gait instability, further complicated by hx of orthostatic hypotension. MRI of lumbar spine previously completed in 11/10 noting severe canal stenosis at L3-4 and L4-5 and recommendation was made to follow up with spine medicine/neurosurgery. He has been following with pain management, however, will be seeing neurosurgery through the [facility] in two weeks. Have asked that CC faxes office notes after visit. R42 Lightheadedness Comment: Pt reports continued lightheadedness upon standing for length of time. Note, past cardiac testing includes positive tilt table testing. Recommendations previously made for use of compressionstockings and increased fluid intake. He has not yet tried compression stockings and will do so after visit today. Continue to follow with cardiology for additional medication adjustments. R25.1 Tremor of right hand Comment: Pt previously reporting tremor to BUE, worse in R hand. No tremor noted at rest. Of note, he has been seen by the movement disorder clinic in 01/10 with dx of essential tremor. Today, he reports some worsening of tremor and can interfere with ADL's. He is currently taking propanolol 20mg BID which previously provided relief of sx. Discussed options including increasing propanolol (with careful monitoring of BP and HR) verses initiation of alternative medication such as AED (noting that he has allergy to gabapentin and Lyrica). Will slowly increase propanolol so that he is taking 30mg BID by adding addition 10mg tablet in both AM and PM. Pt is to monitor for SE as well as any changesin tremor. He will notify the office if SE occur. Of note, exam today with slight decrease in RUE arm swing but otherwise without sx to suggest PD (unchanged since previous appt). Will continue to monitor. 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 He has since been transitioned from ASA to Plavix and continues to remain compliant with medication.He denies new stroke sx since time of previous appointment. Continue Crestor 10mg as prescribed by PCP. Goals remain BP <140/90 and BG <140. Continue to get adequate exercise/physical activity within limitations. Follow up in four months or sooner should new or worsening symptoms occur. Halima Harvey APRN.FORM [employer] I spent a total of 45 minutes on the date of the service which included preparing to see the patient, [id number] patient care, completing clinical documentation, obtaining and/or reviewing separately obtained history, performing a medically appropriate examination, counseling and educating the pat ient/family/caregiver, and ordering medications, tests, or procedures. documented in this encounterAdena [facility]07-31-[facility]23 Instructions* Patient Instructions* Omar Concepcion - 12/19/2022 10:11 AM EDT Diabetes Foot Care Instructions When you have diabetes, proper foot care is very important. Poor foot care may lead to amputation of a foot or leg. As a person with diabetes, you are more vulnerable to foot problems, because diabetes can damage your nerves and reduce blood flow to your feet. Here are some diabetes foot care tips to follow: Wash and Dry Your Feet Daily Use mild soaps Use warm water Pat your skin dry; do not rub. Thoroughly dry your feet. After washing, use lotion on your feet to prevent cracking. Do not put lotion between your toes. Examine Your Feet Each Day Check the tops and bottoms of your feet. Have someone else look at your feet if you cannot see them. Check for dry, cracked skin. Look for blisters, cuts, scratches, or other sores. Check for redness, increased warmth, or tenderness when touching any area of your feet. Check for ingrown toenails, corns, and calluses. If you get a blister or sore from your shoes, do not pop it. Apply a bandage and wear a differentpair of shoes. Take Care of Your Toenails Cut toenails after bathing, when they are soft. Cut toenails straight across and smooth with a nail file. Avoid cutting into the corners of toes. Do not cut cuticles. If you have neuropathy (or decreased sensation in your feet) a stacker attendant should always cut your toenails. Be Careful When Exercising Walk and exercise in comfortable shoes. Do not exercise when you have open sores on your feet. Protect Your Feet With Shoes and Socks Never go barefoot. Always protect your feet by wearing shoes or hard-soled slippers or footwear. Avoid shoes with high heels and pointed toes. Avoid shoes that expose your toes or heels (such as open-toed shoes or sandals). These types of shoes increase your risk for injury and potential infections. Try on new footwear with the type of socks you usually wear. Do not wear new shoes for more than an hour at a time. Change your socks daily. Look and feel inside your shoes before putting them on to make sure there are no foreign objects orrough areas. Avoid tight socks. Wear natural-fiber socks (cotton, wool, or a cotton-wool blend). Wear special shoes if your health care provider recommends them. Wear shoes/boots that will protect your feet from various weather conditions (cold, moisture, etc.). Make sure your shoes fit properly. If you have neuropathy (nerve damage), you may not notice that your shoes are too tight. Perform the footwear test described below. Footwear Test Use this simple test to see if your shoes fit correctly: Stand on a piece of paper. (Make sure you are standing and not sitting, because your foot changes shape when you stand.) Trace the outline of your foot. Trace the outline of your shoe. Compare the tracings: Is the shoe too narrow? Is your foot crammed into the shoe? The shoe should be at least 1/2 inch longer than your longest toe and as wide as your foot. Proper Shoe Choices The following types of shoes are best for people with diabetes Closed toes and heels Leather uppers without a seam inside At least 1/2 inch extra space at the end of your longest toe Inside of shoe should be soft with no rough areas Outer sole should be made of stiff material Shoes should be at least as wide as your feet Tips for Foot Care in Diabetes Don't wait to treat a minor foot problem if you have diabetes. Follow your health care provider's guidelines and first aid guidelines. Report foot injuries and infections to your health care provider immediately. Check water temperature with your elbow, not your foot. Do not use a heating pad on your feet. Do not cross your legs. Do not self-treat your corns, calluses, or other foot problems. Go to your health care provider or stacker attendant to treat these conditions. documented in this encounterAdena [facility]07-31-2023 History of Present illness Narrative* Omar Concepcion - 12/19/2022 10:02 AM EDT Consultation requested by Dr. Vaughan for an opinion regarding ingrowing toenail. My final recommendations will be communicated back to the requesting physician by way of shared Medical record or letter to requesting physician via US mail. Consultation requested by Dr. Vaughan for an opinion regarding ingrowing toenail with fungus of b/l feet. My final recommendations will be communicated back to the requesting physician by way of shared Medical record or letter to requesting physician via US mail. Initial Office Visit Subjective: This 82 year old male presents to clinic for diabetic foot check. Patient has the following complaints: ingrowing toenail of b/l hallux with nail fungus. Patient states the nails have been discolored for several years. In addition, he develops, ingrowing toenails. He is not really bothered by the nails. Patient admits to being diabetic for many years now. Patient +B/T/N in feet at this time. Patient -pain in legs when walking. No other pedal complaints at this time. No change in medications or medical history since last visit. PAIN EVALUATION No data found in the last 1 encounters. Hemoglobin A1C (%) Date Value 10/25/2022 5.9 04/25/2022 5.8 10/21/2019 5.8 04/09/2019 5.8 12/31/2018 5.9 02/20/2018 5.8 07/31/2017 5.8 PCP: George Vaughan MD PAST MEDICAL HISTORY Diagnosis Date Adjustment disorder with depressed mood Anemia Benign neoplasm of colon Coronary artery disease Diabetes (HCC) Essential hypertension, benign Gallbladder polyp needs repeat ultrasound in 06/06 Impaired fasting glucose Internal hemorrhoids without mention of complication Other and unspecified hyperlipidemia Personal history of colonic polyps Current Outpatient Medications Medication Sig clopidogrel (PLAVIX) 75 mg tablet TAKE 1 TABLET BY MOUTH EVERY DAY amLODIPine (NORVASC) 5 mg tablet Take 1 tablet by mouth twice daily. propranolol (INDERAL) 20 mg tablet Take 1 tablet by mouth twice daily. FLUoxetine (PROZAC) 40 mg capsule Take 1 capsule by mouth once daily. lisinopril (PRINIVIL) 10 mg tablet Take 1 tablet by mouth twice daily. Dr. Kramer nitroglycerin sublingual (NITROSTAT) 0.4 mg SL tablet Dissolve 1 tablet under the tongue every 5 minutes as needed for chest pain. acetaminophen (TYLENOL EXTRA STRENGTH) 500 mg tablet Take 1 tablet by mouth every 6 hours as neededfor pain. rosuvastatin (CRESTOR) 10 mg tablet Take 1 tablet by mouth daily at bedtime. multivitamin tablet Take 1 tablet by mouth once daily. tiZANidine (ZANAFLEX) 4 mg tablet TAKE 1 TABLET BY MOUTH EVERY 6 HOURS NEEDED (MUSCLE SPASMS) FOR UP TO 10 DAYS. (Patient not taking: Reported on 12/19/2022) No current facility-administered medications for this visit. ALLERGIES Allergen Reactions Lyrica [Pregabalin] Swelling B/L hand swelling Oxycontin [Oxycodon* Mental Status Change Hallucinating and Erratic hand movement. Norflex [Orphenadri* GI Upset Vicodin [Hydrocodon* nightmares Neurontin [Gabapent* Swelling Feels that he does not have a true allergy to this medication. States he had swelling, not rash. PAST SURGICAL HISTORY Procedure Laterality Date APPENDECTOMY ARTHRP ACETBLR/PROX FEM PROSTC AGRFT/ALGRFT Right 08/08/2018 Dr. Charly Suh CARDIAC CATH N/A 02/02/2015 Completed at [facility] COLONOSCOPY FLX DX W/COLLJ SPEC WHEN PFRMD 07/11/12 Colonoscopy COLONOSCOPY FLX DX W/COLLJ SPEC WHEN PFRMD 02/24/2017 Colonoscopy COLONOSCOPY W/BIOPSY SINGLE/MULTIPLE 03/29/06 ESOPHAGOGASTRODUODENOSCOPY TRANSORAL DIAGNOSTIC 02/24/2017 EGD [facility] W/O FACETEC FORAMOT/DSC / VRT SGM CRV -2000 Dr Cole PAST SURGICAL HISTORY OF Right 2007 knee surgery RPR [place] VAGINALIS HYDROCELE BOTTLE TYPE STENT PLACEMENT 08/2010 [facility] VASECTOMY UNI/BI SPX W/POSTOP SEMEN EXAMS FAMILY HISTORY Problem Relation Age of Onset Heart Brother valvular heart disease Heart Brother valvular heart disease Heart Brother valvular heart diease Hypertension Sister COPD Father Stroke Father Heart Mother Social History Tobacco Use Smoking status: Former Years: 19.00 Types: Cigarettes, Pipe Quit date: 1981 Years since quittin.6 Smokeless tobacco: Former Quit date: 05/22/1981 Tobacco comments: Quit in 1981 Vaping Use Vaping Use: Never used Substance Use Topics Alcohol use: No Drug use: No REVIEW OF SYSTEMS GENERAL: Negative for Malaise, significant weight loss, fever RESPIRATORY: Negative for cough, wheezing and shortness of breath CARDIOVASCULAR: Negative for chest pain, leg swelling and palpitations GI: Negative for abdominal discomfort, blood in stools or black stools and change in bowel habits : Negative for dysuria, frequency and incontinence MUSCULOSKELETAL: Negative for joint pain or swelling, back pain, and muscle pain. SKIN: Negative for lesions, rash, and itching. HEMATOLOGY/LYMPHOLOGY Negative for prolonged bleeding, bruising easily, and swollen nodes. ENDOCRINE: Negative for cold or heat intolerance, polyuria, polydipsia and goiter. NEURO: negative The remainder of the review of systems is noncontributory. Objective: Patient presents to clinic ambulating in sneaker Constitutional: Pt is a well developed 82 year old male who is alert, oriented, cooperative and in no apparent distress. Eyes: Following during examination. No redness or drainage. Respiratory: RR normal and nonlabored. Even breathing. No evidence of distress. Psychology: Patient is engaged during conversation. Normal affect and mood. Does not appear depressed or anxious. Vasc: DP and PT pulses are faintly bilateral. CFT is less than 5 seconds bilateral. Skin temperature is warm to cool proximal to distal bilateral. There is mild edema or varicosities noted. Hair growth absent. Neuro: Protective sensation is intact to the foot and toes when tested with the 5.07 SWM bilateral.Vibratory sensation is decreased at the hallux bilateral. + Significant neurological defecits. Derm: Inspection and palpation performed. Nails 1-5 are discolored-yellow, thick, crumbly, dystrophic and with subungal debris. Ingrowing tendency without infection noted to left hallux. Skin is of normal turgor and texture. Hyperkeratosis noted to not present. NO ulcerations, scars, verruca or other lesions noted. Ortho: Ankle joint DF is full with the knee extended and full with knee flexed. No pain or crepitusnoted. STJ, MTJ ROM are full and free of pain or crepitus. Muscle strength is 5/5 for dorsiflexors,plantarflexors, inverters, everters. Digital deformities include none. Assessment: (L60.0) Ingrown nail (B35.1) Nail fungus Diabetic neuropathy Plan: 1. Patient was seen and evaluated. 2. Patient was instructed on the continued importance of diabetic foot care along with proper diet and keeping their blood sugar under control to prevent complications. Instructions given both oral and written. 3. Discussed ingrowing toenail of left hallux. No signs of infection. Discussed options for nail care not limited to proper nail trimming vs partial nail vs total nail matrixectomy. If patient were interested in removal of toenail, would recommend pvr prior. 4. We discussed the possible etiologies of discolored, dystrophic, and thickened nails including fungus, yeast, mold as well as in some instances, prior trauma, or mechanical causes such as repetitive microtrauma in shoe gear. We discussed topical medication for discolored toenails which has very low success but no major side effects. We discussed oral medication. Patient will need hepatic testing prior to use. Patient informed of risks associated with Lamisil. We discussed removal of toenails.Topical prescribed. 5. Offered nail debridement today. He declined this today. Omar Concepcion DPM * Alejandra Gutierrez LPN - 12/19/2022 9:36 AM EDT AMB ROOMING INTAKE FLOWSHEET DATA Patient presents with: Left Great Toe - New, Ingrown Toenail Right Great Toe - New, Ingrown Toenail Left Foot - New, Nail Fungus Right Foot - New, Nail Fungus Alejandra Gutierrez LPN documented in this encounterAdena [facility]06-15-2023 History of Past illness Narrative* Problem Noted Date Diagnosed Date Resolved Date Type 2 diabetes mellitus wit hout complication, without long-term current use of insulin 11/03/2022 06/02/2023 Hypertensive kidney disease with stage 3 chronic kidney disease 05/02/2022 04/27/2023 CKD (chronic kidney disease) Stage 3, GFR 30-59 ml/min 08/22/2017 04/27/2023 Last Assessment & Plan: Assessment: stable and last labs improved and NL Hip pain 02/04/2015 05/02/2022 Left hip pain 10/29/2014 05/02/2022 Cervical strain 07/29/2014 05/02/2022 Gallbladder polyp 06/10/2014 07/05/2016 Disc degeneration, lumbar 06/25/2010 Pain in joint, pelvic region and thigh 09/16/2008 05/02/2022 Pain in joint, lower leg 12/14/200504/2022 documented as of this encounter (statuses as of 08/02/2023) [facility]06[facility] History of Past illness Narrative* Problem Noted Date Diagnosed Date Resolved Date Type 2 diabetes mellitus wit hout complication, without long-term current use of insulin 11/03/2022 06/02/2023 Hypertensive kidney disease with stage 3 chronic kidney disease 05/02/2022 04/27/2023 CKD (chronic kidney disease) Stage 3, GFR 30-59 ml/min 08/22/2017 04/27/2023 Last Assessment & Plan: Assessment: stable and last labs improved and NL Hip pain 02/04/2015 05/02/2022 Left hip pain 10/29/2014 05/02/2022 Cervical strain 07/29/2014 05/02/2022 Gallbladder polyp 06/10/2014 07/05/2016 Disc degeneration, lumbar 06/25/2010 Pain in joint, pelvic region and thigh 09/16/2008 05/02/2022 Pain in joint, lower leg 12/14/200504/2022 documented as of this encounter (statuses as of 08/11/2023) [facility] History of Past illness Narrative* Problem Noted Date Diagnosed Date Resolved Date Type 2 diabetes mellitus wit hout complication, without long-term current use of insulin 11/03/2022 06/02/2023 Hypertensive kidney disease with stage 3 chronic kidney disease 05/02/2022 04/27/2023 CKD (chronic kidney disease) Stage 3, GFR 30-59 ml/min 08/22/2017 04/27/2023 Last Assessment & Plan: Assessment: stable and last labs improved and NL Hip pain 02/04/2015 05/02/2022 Left hip pain 10/29/2014 05/02/2022 Cervical strain 07/29/2014 05/02/2022 Gallbladder polyp 06/10/2014 07/05/2016 Disc degeneration, lumbar 06/25/2010 Pain in joint, pelvic region and thigh 09/16/2008 05/02/2022 Pain in joint, lower leg 12/14/200504/2022 documented as of this encounter (statuses as of 08/15/2023) [facility]-15[facility] History of Past illness Narrative* Problem Noted Date Diagnosed Date Resolved Date Type 2 diabetes mellitus wit hout complication, without long-term current use of insulin 11/03/2022 06/02/2023 Hypertensive kidney disease with stage 3 chronic kidney disease 05/02/2022 04/27/2023 CKD (chronic kidney disease) Stage 3, GFR 30-59 ml/min 08/22/2017 04/27/2023 Last Assessment & Plan: Assessment: stable and last labs improved and NL Hip pain 02/04/2015 05/02/2022 Left hip pain 10/29/2014 05/02/2022 Cervical strain 07/29/2014 05/02/2022 Gallbladder polyp 06/10/2014 07/05/2016 Disc degeneration, lumbar 06/25/2010 Pain in joint, pelvic region and thigh 09/16/2008 05/02/2022 Pain in joint, lower leg 12/14/200504/2022 documented as of this encounter (statuses as of 08/21/2023) [facility] History of Past illness Narrative* Problem Noted Date Diagnosed Date Resolved Date Type 2 diabetes mellitus wit hout complication, without long-term current use of insulin 11/03/2022 06/02/2023 Hypertensive kidney disease with stage 3 chronic kidney disease 05/02/2022 04/27/2023 CKD (chronic kidney disease) Stage 3, GFR 30-59 ml/min 08/22/2017 04/27/2023 Last Assessment & Plan: Assessment: stable and last labs improved and NL Hip pain 02/04/2015 05/02/2022 Left hip pain 10/29/2014 05/02/2022 Cervical strain 07/29/2014 05/02/2022 Gallbladder polyp 06/10/2014 07/05/2016 Disc degeneration, lumbar 06/25/2010 Pain in joint, pelvic region and thigh 09/16/2008 05/02/2022 Pain in joint, lower leg 12/14/200504/2022 documented as of this encounter (statuses as of 08/22/2023) [facility] History of Past illness Narrative* Problem Noted Date Diagnosed Date Resolved Date Type 2 diabetes mellitus wit hout complication, without long-term current use of insulin 11/03/2022 06/02/2023 Hypertensive kidney disease with stage 3 chronic kidney disease 05/02/2022 04/27/2023 CKD (chronic kidney disease) Stage 3, GFR 30-59 ml/min 08/22/2017 04/27/2023 Last Assessment & Plan: Assessment: stable and last labs improved and NL Hip pain 02/04/2015 05/02/2022 Left hip pain 10/29/2014 05/02/2022 Cervical strain 07/29/2014 05/02/2022 Gallbladder polyp 06/10/2014 07/05/2016 Disc degeneration, lumbar 06/25/2010 Pain in joint, pelvic region and thigh 09/16/2008 05/02/2022 Pain in joint, lower leg 12/14/200504/2022 documented as of this encounter (statuses as of 08/22/2023) [facility] History of Past illness Narrative* Problem Noted Date Diagnosed Date Resolved Date Type 2 diabetes mellitus wit hout complication, without long-term current use of insulin 11/03/2022 06/02/2023 Hypertensive kidney disease with stage 3 chronic kidney disease 05/02/2022 04/27/2023 CKD (chronic kidney disease) Stage 3, GFR 30-59 ml/min 08/22/2017 04/27/2023 Last Assessment & Plan: Assessment: stable and last labs improved and NL Hip pain 02/04/2015 05/02/2022 Left hip pain 10/29/2014 05/02/2022 Cervical strain 07/29/2014 05/02/2022 Gallbladder polyp 06/10/2014 07/05/2016 Disc degeneration, lumbar 06/25/2010 Pain in joint, pelvic region and thigh 09/16/2008 05/02/2022 Pain in joint, lower leg 12/14/200504/2022 documented as of this encounter (statuses as of 08/25/2023) [facility] History of Past illness Narrative* Problem Noted Date Diagnosed Date Resolved Date Type 2 diabetes mellitus wit hout complication, without long-term current use of insulin 11/03/2022 06/02/2023 Hypertensive kidney disease with stage 3 chronic kidney disease 05/02/2022 04/27/2023 CKD (chronic kidney disease) Stage 3, GFR 30-59 ml/min 08/22/2017 04/27/2023 Last Assessment & Plan: Assessment: stable and last labs improved and NL Hip pain 02/04/2015 05/02/2022 Left hip pain 10/29/2014 05/02/2022 Cervical strain 07/29/2014 05/02/2022 Gallbladder polyp 06/10/2014 07/05/2016 Disc degeneration, lumbar 06/25/2010 Pain in joint, pelvic region and thigh 09/16/2008 05/02/2022 Pain in joint, lower leg 12/14/200504/2022 documented as of this encounter (statuses as of 08/31/2023) [facility]03-27-2023 Miscellaneous Notes* Telephone Encounter - Sveta Gomes LPN - 08/15/2022 2:00 PM EDT Please see message below. TC to pt and left VM to return call. Please see Sandra's message below: Please make sure that patient is aware that stopping an antiplatelet at any time does increase the risk of stroke. If he can take ASA in interim while procedure is completed would recommend. Otherwisehe should restart Plavix as soon as cleared by his pain management provider. Sveta Gomes LPN * Telephone Encounter - Halima Harvey APRN.THANG - 08/15/2022 12:14 PM EDT Please make sure that patient is aware that stopping an antiplatelet at any time does increase the risk of stroke. If he can take ASA in interim while procedure is completed would recommend. Otherwise he should restart Plavix as soon as cleared by his pain management provider. * Telephone Encounter - Jessica Andrea RN - 08/15/2022 12:02 PM EDT Fax received from [facility], [facility] Requesting patient to be off anticoagulant (Plavix) 7 days prior to pain management procedure. Procedure date 08/24/2022 Routing to provider for review documented in this encounterA[facility] Miscellaneous Notes* Telephone Encounter - Laney Phan RN - 08/08/2022 11:42 AM EDT Patient's calling to ask for refill of patient's Plavix, last ordered by Sandra Dahlhausen [employer]. Script pended for review. Pharmacy: [facility] Thank you. Patient has been identified by name and date of : Yes Spouse phones for refill(s): Requested Prescriptions Pending Prescriptions Disp Refills clopidogrel (PLAVIX) 75 mg tablet 30 tablet 2 Sig: Take 1 tablet by mouth once daily. Last OV: 02/17/22 with Sandra Harvey CNP Next Appt: not scheduled with neurology. Has appt with PCP 11/11. Thank you. 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 Yuliya Priest LPN * Telephone Encounter - Berenice Pace LPN - 05/05/2022 10:34 AM EST Pt's advised of below message and also advised Leelee from Dr Nichole's office as well. Advised Leelee pt's is going to contact Dr Kramer's office. Leelee advises she was told they didn't manage this. She will f/u with cardiology. Berenice Pace LPN * Telephone Encounter - Yuliya Priest LPN - 05/05/2022 9:07 AM EST Left message for patient to call office for update. Yuliya Priest LPN * Telephone Encounter - Landon Strange Jr., MD - 05/04/2022 7:17 PM EST I cannot find record that I have seen the patient. However on review it appears on plavix for cad. Recommend cards be made aware. Landon Strange Jr, MD * Telephone Encounter - Narayan Langford RN - 05/04/2022 4:21 PM EST Leelee from Dr Nichole's office [facility] called in and reported that Pt needs to hold Plavix a soon as possible. He is scheduled next to have a Caudal epidural steroid injection. She reports the latest he could stop it would be Monday. Please call them back at [phone] andupdate them with providers answer. documented in this encounterAden[facility]12-14-[facility] History of Present illness Narrative* George Vaughan MD - 05/04/2022 1:20 PM EST Chief Complaint Patient presents with: 6 Month Exam HPI Rony Monzon is a 81 year old male who presents here today for a 6 month follow up. Here with . Following with [facility] Urology. Previously had TURP procedure done, no longer on medications Has issueswith constipation. Using Stool softeners. Hx of diverticulitis. WILY/Depression: On current regimen of Prozac 40 mg once daily. He does not do any counseling but his does counseling. He states he doesn't have much of a desire to do anything. Complains that heis not as busy as he normally is, he feels like all he seems to do is sleep and sit around watchingTV. He says this seems to have been an issues for him the last 3 months. Winter months are worse for him. He states that gets his days and nights messed up. 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 states that he is bored since he can't physically work on the big equipment he typically works on. Stated that it has been a rough year this year with surgery and being sick with COVID. They like to travel but haven't travelled since 2018 due to COVID. He is not a very social person. Lipid/glucose: Is taking Crestor 10 mg daily. HTN: Follows with Dr. Kramer/Team at [facility]. Pt denies any chest pain or sob, does have issues withdizziness and lightheadedness. Previous fall due to syncope. Pt on current regimen of Amlodipine 5 mg once daily (however pt has been taking it BID as they were not aware that the dosage changed), Lisinopril 10 mg bid and Plavix 75 mg once daily. Does take Propranolol 20 mg bid. Has orthostatic HTN. ekg monitor order by Neuro and showed 14 episodes of SVT, recommended to f/u with [employer]. Skin: Has some red patches on the face that seem to be there all the time. Denies any itching. Wifefollows with [facility], Dr. Pedro yearly. Pain: Chronic pain that pt currently follows up with Pain Mgmt. Pain located in back and neck. Was reporting increased headaches. Receives injections. Follows with Dr. Osman who recommended surgery or a referral to Neurosurgery Provider at [facility]. He is getting an injection to his back in a week. The pain has been bothering him more in the back. REHAN: Follows with [facility] Pulmonary. Does not use a CPAP machine. Neuro: Pt referred to Neuro due to balance and headaches. MRI brain ordered for cause of tremor. 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 Additional imaging ordered of blood vessels to evaluate for narrowing. Pt taking Propranolol 20 mg bid for essential tremor. Has had 2 falls in the last year without injury. He fell in the garage at some time and then another time he fell going into [employer], he took 2 steps back and fell. wonders if he was still weak from having prostate surgery as it was not long after that. He does feel like his balance is bad andhe does get a little dizzy at times, feels that is why he fell. He does have hx vasovagal syncope and gait instability. Falls Risk Intake: Patient age 65 or over, unsteady, or was advised to use special equipment to aid ambulation (i.e., cane or walker)? Yes Has the patient had two falls in the past year, or one with injury? Yes Does the patient need to use their hands when pushing up from chair, or hold onto furniture when ambulating at home? No Is the patient worried about falling? No Please inform patient that answering Yes to one or more of the questions above can increase theirrisk of falling Patient is at greater risk for falls. Falls Instruction: Teaching document below - reviewed and given to patient [facility] - FALLS Prevention Safety Plan Past medical history, appointments, medications, allergies reviewed. Previous Medical History PAST MEDICAL HISTORY Diagnosis Date Adjustment disorder with depressed mood Anemia Benign neoplasm of colon Coronary artery disease Diabetes (HCC) Essential hypertension, benign Gallbladder polyp needs repeat ultrasound in 06/06 Impaired fasting glucose Internal hemorrhoids without mention of complication Other and unspecified hyperlipidemia Personal history of colonic polyps Previous Surgical History PAST SURGICAL HISTORY Procedure Laterality Date APPENDECTOMY ARTHRP ACETBLR/PROX FEM PROSTC AGRFT/ALGRFT Right 08/08/2018 Dr. Charly Suh CARDIAC CATH N/A 02/02/2015 Completed at [facility] COLONOSCOPY FLX DX W/COLLJ SPEC WHEN PFRMD 07/11/12 Colonoscopy COLONOSCOPY FLX DX W/COLLJ SPEC WHEN PFRMD 02/24/2017 Colonoscopy COLONOSCOPY W/BIOPSY SINGLE/MULTIPLE 03/29/06 ESOPHAGOGASTRODUODENOSCOPY TRANSORAL DIAGNOSTIC 02/24/2017 EGD [place] W/O FACETEC FORAMOT/DSC 05/[address] Cole PAST SURGICAL HISTORY OF Right 2007 knee surgery RPR [place] VAGINALIS HYDROCELE BOTTLE TYPE STENT PLACEMENT 08/2010 [facility] VASECTOMY UNI/BI SPX W/POSTOP SEMEN EXAMS Family History FAMILY HISTORY Problem Relation Age of Onset Heart Brother valvular heart disease Heart Brother valvular heart disease Heart Brother valvular heart diease Hypertension Sister COPD Father Stroke Father Heart Mother Patient Allergies ALLERGIES Allergen Reactions Lyrica [Pregabalin] Swelling B/L hand swelling Oxycontin [Oxycodon* Mental Status Change Hallucinating and Erratic hand movement. Norflex [Orphenadri* GI Upset Vicodin [Hydrocodon* nightmares Neurontin [Gabapent* Swelling Feels that he does not have a true allergy to this medication. States he had swelling, not rash. Current Medications Current Outpatient Medications on File Prior to Visit Medication Sig propranolol (INDERAL) 20 mg tablet Take 1 tablet by mouth twice daily. amLODIPine (NORVASC) 5 mg tablet Take 1 tablet by mouth once daily. FLUoxetine (PROZAC) 40 mg capsule Take 1 capsule by mouth once daily. clopidogrel (PLAVIX) 75 mg tablet Take 1 tablet by mouth once daily. tiZANidine (ZANAFLEX) 4 mg tablet TAKE 1 TABLET BY MOUTH EVERY 6 HOURS NEEDED (MUSCLE SPASMS) FOR UP TO 10 DAYS. ofloxacin (OCUFLOX) 0.3 % ophthalmic solution INSTILL 1 DROP IN LEFT EYE 4 TIMES A DAY 3 DAYS BEFORE SURGERY AND 4 TIMES DAILY AFTER SURGERY (Patient not taking: Reported on 02/17/2022) dutasteride (AVODART) 0.5 mg capsule Take 1 capsule by mouth once daily. (Patient not taking: Reported on 01/19/2022) lisinopril (PRINIVIL) 10 mg tablet Take 1 tablet by mouth twice daily. Dr. Kramer nitroglycerin sublingual (NITROSTAT) 0.4 mg SL tablet Dissolve 1 tablet under the tongue every 5 minutes as needed for chest pain. acetaminophen (TYLENOL EXTRA STRENGTH) 500 mg tablet Take 1 tablet by mouth every 6 hours as neededfor pain. hydroCHLOROthiazide (HYDRODIURIL, ESIDRIX) 25 mg tablet Take 12.5 mg by mouth once daily. (Patient not taking: No sig reported) diclofenac (VOLTAREN ARTHRITIS PAIN) 1 % topical gel Apply 4 g to affected area four times daily. aspirin, enteric coated (ASPIRIN, ENTERIC COATED) 81 mg EC tablet Take 1 tablet by mouth once daily. triamcinolone (KENALOG) 0.025 % cream Apply to affected area twice daily. (Patient not taking: Reported on 01/19/2022) rosuvastatin (CRESTOR) 10 mg tablet Take 1 tablet by mouth daily at bedtime. multivitamin tablet Take 1 tablet by mouth once daily. No current facility-administered medications on file prior to visit. Social History Social History Tobacco Use Smoking status: Former Years: 19.00 Types: Cigarettes, Pipe Smokeless tobacco: Former Quit date: 05/22/1981 Tobacco comments: Quit in 1981 Vaping Use Vaping Use: Never used Substance Use Topics Alcohol use: No Drug use: No EXAM: BP 140/80 Pulse 66 Resp 16 Wt 98.1 kg (216 lb 3.2 oz) BMI 28.52 kg/m General Appearance: Well appearing, alert, in no acute distress, well-hydrated, well nourished.. Skin: minimal Ak on face and scalp, no significant erythema or scaling Lungs: Lungs clear to auscultation. No wheezing, rhonchi, rales.. Heart: RRR without murmur, gallop, or rubs. No ectopy. Health Maintenance List SHINGRIX VACCINE(2 of 3) due on 01/06/2017 COVID-19 VACCINE(4 - Booster for Moderna series) due on 05/10/2021 ADVANCE DIRECTIVE DISCUSSION Never done ANNUAL PCP TEAM CHRONIC DISEASE VISIT due on 01/20/2023 BP CONTROLLED (<130/80) due on 02/17/2023 LDL CHOLESTEROL due on 04/25/2023 SERUM CREATININE due on 04/25/2023 DIABETES SCREEN due on 04/25/2025 DTAP,TDAP,TD(2 - Td or Tdap) due on 01/23/2029 INFLUENZA Completed PNEUMOCOCCAL: 65+ Completed Data reviewed Appointment on 04/25/2022 Component Date Value Protein, Total 04/25/2022 7.8 Albumin 04/25/2022 4.2 Calcium, Total 04/25/2022 9.7 Bilirubin, Total 04/25/2022 0.6 Alkaline Phosphatase 04/25/2022 112 AST 04/25/2022 27 ALT 04/25/2022 22 Glucose 04/25/2022 110 (A) BUN 04/25/2022 15 Creatinine 04/25/2022 1.19 Sodium 04/25/2022 140 Potassium 04/25/2022 4.5 Chloride 04/25/2022 102 CO2 04/25/2022 26 Anion Gap 04/25/2022 12 Estimated Glomerular Jv* 04/25/2022 62 Cholesterol, Total 04/25/2022 196 Triglyceride 04/25/2022 173 (A) HDL Cholesterol 04/25/2022 46 Non HDL Cholesterol 04/25/2022 150 (A) Fasting Time 04/25/2022 15 VLDL Cholesterol 04/25/2022 35 (A) TC:HDL Ratio 04/25/2022 4.26 LDL Cholesterol 04/25/2022 115 (A) LDL:HDL Ratio 04/25/2022 2.50 Hemoglobin A1C 04/25/2022 5.8 (A) Estimated Average Glucose 04/25/2022 120 WBC 04/25/2022 8.37 RBC 04/25/2022 4.32 Hemoglobin 04/25/2022 13.5 Hematocrit 04/25/2022 41.0 MCV 04/25/2022 94.9 MCH 04/25/2022 31.3 MCHC 04/25/2022 32.9 RDW-CV 04/25/2022 13.1 Platelet Count 04/25/2022 382 MPV 04/25/2022 10.9 Neut% 04/25/2022 69.4 Abs Neut 04/25/2022 5.80 Lymph% 04/25/2022 17.3 Abs Lymph 04/25/2022 1.45 [place]% 04/25/2022 8.6 Abs [place] 04/25/2022 0.72 Eosin% 04/25/2022 3.3 Abs Eosin 04/25/2022 0.28 Baso% 04/25/2022 1.3 Abs Baso 04/25/2022 0.11 (A) Immature Gran % 04/25/2022 0.1 Abs Immature Gran 04/25/2022 <0.03 NRBC 04/25/2022 0.0 Absolute nRBC 04/25/2022 <0.01 Diff Type 04/25/2022 Auto ASSESSMENT/PLAN: 1. Depression, unspecified depression type - ICD9: 311, ICD10: F32.A (primary diagnosis) Stable Continue current medications. Recommend counseling 2. Essential hypertension, benign - ICD9: 401.1, ICD10: I10 - fair control - Continue current medication(s) - Recommended regular aerobic exercise. - Recommend home blood pressure monitoring, to bring results in on next visit - Goal of BP <130/80 3. Hyperlipidemia, mixed - ICD9: 272.2, ICD10: E78.2 - good control - Continue current medication. - Encouraged following a low fat, low cholesterol diet. - Discussed the benefits of regular aerobic exercise and weight loss. 4. Coronary artery disease involving [place] coronary artery of [place] heart without angina pectoris- ICD9: 414.01, ICD10: I25.10 Continue current medications. Continue with Cardio 5. Gait instability - ICD9: 781.2, ICD10: R26.81 Continue current medications. Continue with Neuro 6. Impaired fasting glucose - ICD9: 790.21, ICD10: R73.01 Stable Continue with healthy diet and exercise Continue to monitor Monitor skin Follow up in 6 months with fasting labs prior. I agree with the Chief Complaint, ROS, and Past Histories independently gathered by the clinical it support specialist and the remaining scribed note accurately describes my personal service to the patient. Medical Decision Making: Problems: Moderate: 2+ stable chronic illnesses Data: Unique test(s) ordered: 3+ Risk: Moderate: Drug management Medical Decision Making Level: 4 - Moderate George Vaughan MD The documentation for this note was completed by Ana Tong Ma acting as scribe for George Vaughan MD. May 04, 2022 1:37 PM. Ana Tong Ma documented in this encounterAdena [facility]12-09-2022 Miscellaneous Notes* Telephone Encounter - Charlene Eckert RN - 04/29/2022 11:10 AM EST Provider: Reagan Harvey APRN.CNP pharmacy requesting refill via [employer] . Please E-Scribe Last OV: 02-17-22 with Reagan Harvey APRN.CNP Future OV: N/A Last prescribed: 03-07-22 Requested Prescriptions Pending Prescriptions Disp Refills clopidogrel (PLAVIX) 75 mg tablet [Pharmacy Med Name: CLOPIDOGREL 75 MG TABLET] 30 tablet 2 Sig: TAKE 1 TABLET BY MOUTH EVERY DAY Request sent to provider to review Charlene Eckert RN documented in this encounterAdena [facility] Center10-25-2022 Miscellaneous Notes* Telephone Encounter - Zander Chavez APRN.CNP - 03/15/2022 7:43 AM EDT The following approved medication requests have been transmitted electronically. Requested Prescriptions Pending Prescriptions Disp Refills propranolol (INDERAL) 20 mg tablet 180 tablet 3 Sig: Take 1 tablet by mouth twice daily. amLODIPine (NORVASC) 5 mg tablet Sig: Take 1 tablet by mouth once daily. Zander Chavez APRN.CNP * Telephone Encounter - Carline Campoverde 03/14/2022 4:01 PM EDT Patient has been identified by name and date of : Yes Requested Prescriptions Pending Prescriptions Disp Refills propranolol (INDERAL) 20 mg tablet Sig: Take 1 tablet by mouth twice daily. amLODIPine (NORVASC) 5 mg tablet Sig: Take 1 tablet by mouth once daily. RX INSTRUCTIONS: Patient aware RX will be sent to pharmacy. No need to notify patient. Carline Crandall documented in this encounterAdena [facility] Center10-14-2022 Miscellaneous Notes* Telephone Encounter - Lakeisha Narvaez MA - 03/04/2022 5:03 PM EDT Patient notified of results, verbalizes understanding of instructions. Patient prefers [facility]. Lakeisha Narvaez MA * Telephone Encounter - Lakeisha Narvaez MA - 03/04/2022 5:01 PM EDT ----- Message from Halima Harvey APRN.[employer] sent at 03/04/2022 10:16 AM EDT ----- MRI confirming suspected second stroke that was seen on CTA. Will have patient transition from ASA to Plavix for further stroke prevention. Will send prescription for Plavix once preferred pharmacy known. Once starting Plavix he may stop ASA. documented in this encounterAdena [facility]ike [facility] Center10-10-2022 History of Present illness Narrative* RT Eduardo(Vaughn) - 02/28/2022 3:00 PM EDT Radiology Service Progress Note PATIENT NAME: Rony Monzon DATE OF SERVICE: February 28, 2022 TIME: 3:18 PM PATIENT IDENTITY VERIFICATION COMPLETED USING TWO (2) IDENTIFIERS: Name and Date of confirmedby patient verbally. FALL SCREENING: Has the patient had 2 falls in the last year or 1 fall with injury or currently using an Ambulatory Assistive Device (Walker, Cane, Wheelchair, Crutches, etc.)? No PATIENT GENDER DATA: Male PATIENT RELEVANT IMPLANT DATA REVIEWED: Yes RADIOLOGY DEPARTMENT: MR; Exam(s) Completed: Head: Routine Brain PERIPHERAL IV DATA: Not applicable SIGNED BY: RT Eduardo(R) February 28, 2022 3:18 PM documented in this encounterAdena Pike Medical Center09-29-2022 History of Present illness Narrative* Halima Harvey, VIDA.[employer] - 02/17/2022 10:45 AM EDT Images from the original note were not included. [facility] [place] Follow-up Visit Follow-up note February 17, 2022 HPI: Mr. Monzon presents today for a follow-up visit. Per his previous visit on 11/11/21: R51.9 Headaches (primary encounter diagnosis) Comment: Patient with longstanding history of headaches. Headaches begin posteriorly in the cervical region and radiating up posteriorly (bilateral). Denies associated vision changes, n/v, photo/phoboia. Treatments in the past have included use of muscle relaxant, gabapentin, and lyrica; all of which were unsuccessful due to SE or no relief of sx. He has also gone to physical therapy in the past following past cervical surgery. On review of imaging, last MRI of cervical spine completed in 2016.MRI of brain completed at that time as well. However, as headaches have continued to occur and balance/tremor have worsened will repeat imaging of both brain and cervical spine to evaluate for intracr anial cause or further changes to cervical spine. May consider consult to neurosurgery pending results. Discussed further treatment of headaches including alternative daily medication. Again, will avoid use of gabapentin or Lyrica d/t SE. Instead will begin VPA ER 250mg QHS. SE reviewed. If SE occur pt to notify office. R29.6 Frequent falls M48.02 Spinal stenosis of cervical region M48.061 Spinal stenosis of lumbar region, unspecified whether neurogenic 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 present Comment: Hx of balance concerns and frequent falls. Per patient report symptoms started roughly oneyear ago. Notable history of past cervical surgery as well as lumbar stenosis. More recent R hip replacement with RLE weakness occurring after surgery. Most recent MRI of cervical spine from 2016 with report of focal myelomalacia at C5-6. Unsure if more recent imaging completed. MRI of lumbar spinerecently completed in 11/10 noting severe canal stenosis at L3-4 and L4-5. He did have follow up with spine medicine and discussed surgical intervention, however, pt will continue to follow with pain management for lumbar concerns. Cervical spine concerns were also addressed with spine medicine with recommendation for consult to neurosurgery in [place]. As pt has had worsening of balance, as well as past hx of cervical intervention and myelomalacia, will repeat MRI of cervical spine to evaluate for any further changes. Possible that cervical and lumbar stenosis contributing to gait instability, further complicated by hx of orthostatic hypotension. Again, as noted above, may consider neurosurgery consult. R42 Lightheadedness Comment: Patient reporting chronic dizzy/lightheaded feeling. Past cardiac testing includes positive tilt table test per primary care. Orthostatic VS completed in office today and positive. He has been following with cardiology regularly for medication adjustments. Likely that orthostatic findings are contributing to balance concerns. R25.1 Tremor of right hand Comment: Patient with history of essential tremor diagnosed after workup in 2017 by neurology. Today he reports tremor can occur at rest, though not observed at rest while in the office. Tremor notedwith arms outstretched; R>L. Remaining exam with findings of mild rigidity to BUE, though no bradykinesia, notable shuffling. Decreased arm swing to RUE. Past TSH, B12 completed since onset of tremor unremarkable. Of note, he is currently taking propanolol. Has tried gabapentin and Lyrica in thepast with SE. At this time will complete MRI of brain as noted above to evaluate for intracranial cause of tremor. Will hold off on initiating medication at this time until testing complete. Still gets a headache every now and then but they are ok. Maybe has had two or three headaches overthe past month. He reports the lightheadedness bothers him daily. Has not been checking his pressure at home. Not wearing compression stockings. Had R hip replacement. Has grab bars in the shower and a seat in the shower. Does not drink much water. Tremor has been ok. Worse on R than L. Sometimes when arms crossed R arm can jump. No leg or head tremor. Still taking propanolol BID. Reports lower back pain with radiation to the R. Follows with Dr. Tristan for injections for his neck. Needs to make an appointment. Recently had cataract surgery at the end of December. Denies recent visual changes, speech changes, focal weakness, paresthesias. Reviewed MRI results and images of brain, cervical spine, and CTA head/neck. PAST MEDICAL HISTORY Diagnosis Date Adjustment disorder with depressed mood Anemia Benign neoplasm of colon Coronary artery disease Diabetes (HCC) Essential hypertension, benign Gallbladder polyp needs repeat ultrasound in 06/06 Impaired fasting glucose Internal hemorrhoids without mention of complication Other and unspecified hyperlipidemia Personal history of colonic polyps PAST SURGICAL HISTORY Procedure Laterality Date APPENDECTOMY ARTHRP ACETBLR/PROX FEM PROSTC AGRFT/ALGRFT Right 08/08/2018 Dr. Charly Suh CARDIAC CATH N/A 02/02/2015 Completed at [facility] COLONOSCOPY FLX DX W/COLLJ SPEC WHEN PFRMD 07/11/12 Colonoscopy COLONOSCOPY FLX DX W/COLLJ SPEC WHEN PFRMD 02/24/2017 Colonoscopy COLONOSCOPY W/BIOPSY SINGLE/MULTIPLE 03/29/06 ESOPHAGOGASTRODUODENOSCOPY TRANSORAL DIAGNOSTIC 02/24/2017 EGD [facility] W/O FACETEC FORAMOT/DSC 05/[address] Cole PAST SURGICAL HISTORY OF Right 2007 knee surgery RPR [place] VAGINALIS HYDROCELE BOTTLE TYPE STENT PLACEMENT 08/2010 [facility] VASECTOMY UNI/BI SPX W/POSTOP SEMEN EXAMS Current Outpatient Medications on File Prior to Visit Medication Sig clopidogrel (PLAVIX) 75 mg tablet Take 1 tablet by mouth once daily for 21 days. tiZANidine (ZANAFLEX) 4 mg tablet TAKE 1 TABLET BY MOUTH EVERY 6 HOURS NEEDED (MUSCLE SPASMS) FOR UP TO 10 DAYS. ofloxacin (OCUFLOX) 0.3 % ophthalmic solution INSTILL 1 DROP IN LEFT EYE 4 TIMES A DAY 3 DAYS BEFORE SURGERY AND 4 TIMES DAILY AFTER SURGERY propranolol (INDERAL) 20 mg tablet Take 1 tablet by mouth twice daily. amLODIPine (NORVASC) 5 mg tablet Take 1 tablet by mouth once daily. dutasteride (AVODART) 0.5 mg capsule Take 1 capsule by mouth once daily. (Patient not taking: Reported on 01/19/2022) lisinopril (PRINIVIL) 10 mg tablet Take 1 tablet by mouth twice daily. Dr. Kramer nitroglycerin sublingual (NITROSTAT) 0.4 mg SL tablet Dissolve 1 tablet under the tongue every 5 minutes as needed for chest pain. acetaminophen (TYLENOL EXTRA STRENGTH) 500 mg tablet Take 1 tablet by mouth every 6 hours as neededfor pain. hydroCHLOROthiazide (HYDRODIURIL, ESIDRIX) 25 mg tablet Take 12.5 mg by mouth once daily. (Patient not taking: Reported on 01/19/2022) diclofenac (VOLTAREN ARTHRITIS PAIN) 1 % topical gel Apply 4 g to affected area four times daily. FLUoxetine HCl (PROZAC) 40 mg capsule Take 1 capsule by mouth once daily. aspirin, enteric coated (ASPIRIN, ENTERIC COATED) 81 mg EC tablet Take 1 tablet by mouth once daily. triamcinolone (KENALOG) 0.025 % cream Apply to affected area twice daily. (Patient not taking: Reported on 01/19/2022) rosuvastatin (CRESTOR) 10 mg tablet Take 1 tablet by mouth daily at bedtime. multivitamin tablet Take 1 tablet by mouth once daily. No current facility-administered medications on file prior to visit. Social History Tobacco Use Smoking status: Former Years: 19.00 Types: Cigarettes, Pipe Smokeless tobacco: Former Quit date: 05/22/1981 Tobacco comments: Quit in 1981 Vaping Use Vaping Use: Never used Substance Use Topics Alcohol use: No Drug use: No ALLERGIES Allergen Reactions Lyrica [Pregabalin] Swelling B/L hand swelling Oxycontin [Oxycodon* Mental Status Change Hallucinating and Erratic hand movement. Norflex [Orphenadri* GI Upset Vicodin [Hydrocodon* nightmares Neurontin [Gabapent* Swelling Feels that he does not have a true allergy to this medication. States he had swelling, not rash. Review of Systems: Constitutional: denies fever, weight loss, + loss of appetite ENT: Denies + loss of hearing, vertigo Vision: denies blurring vison, + double vision/diplopia (without glasses) Cardiopulmonary: denies chest pain, palpitations Respiratory: denies shortness of breath GI: denies recent nausea, vomiting, diarrhea, constipation : denies incontinence Musculoskeletal: denies + weakness Back/spine: denies + low back or + cervical pains Neuro: denies tremors, loss of feeling, dizziness, seizure, blackout, paresthesia, facial paresthesia, facial weakness, + difficulty in speech (baseline stutter), slurring of words, dysarthria, dysphagia, memory loss, + headache Physical Exam: 02/17/22 1032 BP: 108/60 Pulse: 78 Resp: 18 Temp: 36.3 C (97.4 F) SpO2: 97% Weight: 94.8 kg (209 lb) Patient is alert and in no distress. Dress is appropriate. Mood is appropriate Breathing appears regular and unstressed Neurologic examination: Cognitively intact. No deficits. No formal MMSE performed. CN: Pupils equal and reactive to light, extraocular movements intact with no nystagmus, face is symmetric with no facial droop, hearing decreased bilaterally, symmetric evaluation of the soft palate,tongue is midline with no deviation, shoulder shrug is symmetric. Motor exam shows 5/5 strength symmetric through the upper and lower extremities in all groups tested. Sensory intact to light touch in all extremities. Vibratory sensation is intact and symmetric all extremities. Deep tendon reflexes are symmetric at the biceps, brachioradialis, triceps, patella, and achilles bilaterally. Coordination: No dysmetria on finger to nose. No tremors noted. No drift seen. Gait slightly antalgic at times; R hip. SHIRLENE of pronation and supination, finger and hand tapping intact. Toe tapping intact. There is no asterixis of the hands. Rigidity to BUE. Tremor to BUE with arms outstretched; R>L. Decreased R arm swing; four step turn. Labs/studies: CT Brain Report CTA HEAD W IVCON Exam End: 01/25/2022 10:41 AM (Final result) Narrative: * * *Final Report* * * DATE OF EXAM: Jan 25 2022 10:41AM [facility] 0022 - CTA HEAD W IVCON / PROCEDURE REASON: Cerebral infarction, unspecified mechanism (HCC) * * * * Physician Interpretation * * * * EXAMINATION: CTA NECK W IVCON, CTA HEAD W IVCON HISTORY: Neurology conversation Epic (electronic medical record) Encounter (USING CUT AND PASTE FEATURE) 12/07/2021: MRI of brain does show a small stroke. This was noted to be subacute which means it likely happened within the past few weeks. As sx have been present for over a year this would not be the cause. However, given finding would like to proceed with additional imaging of blood vessels to evaluate for any areas of narrowing. Would also recommend completing outpatient teletypesetter monitor to evaluate for abnormal heart rhythm. If pt is agreeable will enter orders. Please ensure patient is taking ASA and cholesterol medication as noted in chart. NOTE: CUTTING AND PASTING from [employer] to the dictation system appears to introduce QUESTION CHOU after report finalization not visible during the dictation/within the dictation system itself even if reloaded for an addendum. Presumably a glitch in coding between the systems. Inappropriateness of the QUESTION CHOU usually clear from the context. If indeterminate, please refer to the original report in Epic. Additionally, not responsible for any errors in the PASTED INFORMATION whether historical, contextual, typographical, grammatical, or otherwise. For REFERENCE PURPOSES only and any concerns regarding the content should be raised with the actual provider for the given Epic encounter. TECHNIQUE: Spiral high resolution axial images were obtained through the head, neck and superior mediastinum following bolus administration of intravenous contrast for CT angiography. 3D maximum intensity projection images were created, reviewed and archived . MQ: [id number]_4 Contrast: 85 mL Omnipaque [address] Radiation dose: Integrated Dose-Length Product (DLP) for this visit = 847 mGy*cm. CT Dose Reduction Employed: Automated exposure control(AEC) and iterative recon COMPARISON: MRI brain and cervical spine 12/01/2021. RESULT: Conditioning Coach (topogram) images: No additional findings. A 3-vessel aortic arch is identified with no significant disease of the great vessel origins. 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 Atheromatous calcification at the carotid bifurcations. Robust dominant left vertebral artery with minimal atheromatous calcification at the origin. No occlusion, convincing stenosis, or dissection of the extracranial anterior or posterior circulations. Right ICA (% stenosis by NASCET criteria): 0. Left ICA (% stenosis by NASCET criteria): 0. Atheromatous calcification of the intracranial internal carotid arteries. No occlusion, high-grade stenosis, or aneurysm formation of the intracranial anterior posterior circulations. The right posterior inferior cerebellar artery arises from the basilar artery. No gross acute intracranial process. 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 Spot Sign Presence: Not Applicable Spot Sign Number: Not Applicable Patent dural venous sinuses/deep venous system. 2.4 cm left thyroid nodule. 2 cm nonspecific airspace disease left lateral lung apex abutting the pleura. C4-C5 posterior decompression. Exaggeration of thoracic kyphosis with chronic multilevel endplate deformities most pronounced superior C7. Multilevel degenerative changes superimposed on congenitally short pedicles with canal stenosis as better delineated on MRI. No superimposed lytic or blastic process. Impression: IMPRESSION: 1. 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 2. 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 3. 2.4 cm left thyroid nodule. 4. 2 cm nonspecific airspace disease left lateral lung apex abutting the pleura. Arterial blood flow was measured to detect acute large vessel occlusion by computer aided detection software: Not Performed. Concordance between software and imaging review: Not Applicable. Incidental Finding: Follow-up Acuity: Incidental Finding: Non solid 6 mm or greater (solitary nodule) Routing Code: RI_1 Recommendation: CT Chest WO IVCON Time Frame: 6-12 months Comments: If stable on follow-up imaging, repeat chest CT exams in 24 and 48 months are recommended (at 30-36 and 54-60 months from the initial exam) ACTIONABLE RESULT: FOLLOW-UP Acuity: Actionable Findings: Endocrine (thyroid) Routing Code: EMI_1 Recommendation: US THYROID/PARATHYROID Time Frame: At the discretion of the clinical team. COMMUNICATION: Results will be communicated with the ordering provider via [employer] staff message or phone message by Imaging Support Services within 2 business days of report finalization. Algorithms for management of incidental imaging findings can be found on the [facility] Intranet Sharepoint site at: [email or web address] Research Soil Scientist: KENTRELL Transcribe Date/Time: Jan 25 2022 10:57A Dictated by : SELWYN REED MD This examination was interpreted and the report reviewed and electronically signed by: SELWYN REED MD on Jan 25 2022 11:14AM EST MRI Report MRI BRAIN WO IVCON Exam End: 12/01/2021 8:42 AM (Edited Result - FINAL) Addendum: * * *Final Report* * * DATE OF EXAM: Dec 01 2021 8:42AM [facility] 0294 - MRI BRAIN WO IVCON / PROCEDURE REASON: multiple diagnoses * * * * Physician Interpretation * * * * EXAMINATION: MRI BRAIN WO IVCON CLINICAL HISTORY: Frequent falls, tremor of the right and, headaches TECHNIQUE: Routine noncontrast MRI protocol including diffusion images. MQ: [id number] COMPARISON: Brain MRI 04/26/2016 RESULT: Acute Change: There is a small focus of restricted diffusion around the left caudothalamic groove, with associated T2/FLAIR hyperintensity, without significant mass effect. This may represent a subacute infarction. The size is up to 9 mm. Inferior margins would extend towards the hypothalamus on the left, may involve the margins of the posterior limb of the internal capsule, and some anterior-inferior thalamic nuclei. Hemorrhage: No evidence of prior parenchymal hemorrhage on the gradient echo images. Mass Lesion/ Mass Effect: No evidence of an intracranial mass or extra-axial fluid collection. No significant mass effect. Chronic Change: The white matter is within normal limits of signal intensity for age. Parenchyma: There is now mild-moderate generalized parenchymal volume loss, which is significantly progressed since 2016. The brain parenchyma is otherwise within normal limits of signal intensity and morphology. Ventricles: Normal caliber and morphology. Skull Base: Hypothalamic and pituitary region are grossly normal. Craniocervical junction is normal. No significant marrow replacement process. Vasculature: Major intracranial arterial structures, and dural venous sinuses show typical flow void, suggesting patency by spin echo criteria. Other: Again seen is some minor mucosal thickening in the paranasal sinuses, mildly reconfigured since 2016. Visualized paranasal sinuses and mastoid air cells are clear. The orbits and extracranial soft tissues are unremarkable. IMPRESSION: 1. LIKELY SMALL SUBACUTE INFARCT IN LEFT CAUDOTHALAMIC GROOVE 2. NO HEMORRHAGE OR SIGNIFICANT MASS EFFECT 3. MILD HAVE A MODERATE VOLUME LOSS, NOTABLY PROGRESSED SINCE 2016 Research Soil Scientist: KENTRELL Transcribe Date/Time: Dec 01 2021 9:12A Dictated by : CHIKI AMAYA MD This examination was interpreted and the report reviewed and electronically signed by: CHIKI AMAYA MD on Dec 01 2021 9:32AM [facility] [place] Provider12/01/2021 9:32 AM MRI Spine Report MRI CERVICAL SPINE WO IVCON Exam End: 12/01/2021 8:42 AM (Final result) Narrative: * * *Final Report* * * DATE OF EXAM: Dec 01 2021 8:42AM [facility] [id number] - MRI CERVICAL SPINE WO IVCON / PROCEDURE REASON: Spinal stenosis of cervical region * * * * Physician Interpretation * * * * EXAMINATION: MRI CERVICAL SPINE WO IVCON CLINICAL HISTORY: Myelomalacia TECHNIQUE: Routine cervical spine MR protocol without gadolinium. MQ: [id number] COMPARISON: Cervical MRI 04/26/2016 RESULT: Counting reference: Craniocervical junction. Anatomic Variants: None. Localizer images: No additional findings Alignment: Alignment remains anatomic. Post surgical change: Again seen are remote laminectomy changes involving C4-5-6, unchanged Craniocervical junction: Craniocervical junction is normal. Cord: Redemonstrated is myelomalacia centered at C5-6, and is grossly similar. Given location concordant with laminectomy, and some disc osteophyte anteriorly, this may be the sequela of a remote compressive myelopathy insula. Bone marrow signal/fracture: No evidence of pathologic marrow infiltration. No evidence of prior fracture. Cervical soft tissues: The paraspinal soft tissues are within normal limits. C2-C3: Canal and foramina remain patent C3-C4: Canal and foramina remain patent C4-C5: Stable ample decompression from laminectomy, foramina remain grossly patent C5-C6: Redemonstration of posterior disc osteophyte in the left paramedian region, grossly unchanged. Ample decompression from laminectomy. Stable severe right and moderate-severe left foraminal narrowing C6-C7: Canal and foramina remain patent C7-T1: Canal and foramina remain patent Impression: IMPRESSION: 1. 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 STABLE POST SURGICAL CHANGES FROM LAMINECTOMIES 3. NO HIGH-GRADE CENTRAL STENOSIS 4. FORAMINAL STENOSIS REMAINS GREATEST AT SEVERE RIGHT C5-6 Anatomic Variant: None. Assume 7 cervical vertebrae with counting from the craniocervical junction. Research Soil Scientist: PSCLizzie Transcribe Date/Time: Dec 01 2021 9:30A Dictated by : CHIKI AMAYA MD This examination was interpreted and the report reviewed and electronically signed by: CHIKI AMAYA MD on Dec 01 2021 9:36AM EST Previously Reviewed: MRI Spine Report MRI CERVICAL SPINE WO IVCON ([place]) Collected: 04/26/2016 4:09 PM (Final result) Narrative: * * *Final Report* * * DATE OF EXAM: Apr 26 2016 4:09PM [facility] 0297 - MRI CERVICAL SPINE WO IVCON / PROCEDURE REASON: Cervicalgia * * * * Physician Interpretation * * * * RESULT: EXAMINATION: MRI BRAIN WO/W IVCON, MRI CERVICAL SPINE WO IVCON HISTORY: Headache. Cervicalgia. COMPARISON: Prior MRI cervical from 06/11/2009. No prior MRI brain for comparison. TECHNIQUE MR BRAIN: Routine MR brain with diffusion weighted scans and postcontrast T1-weighted scans. No MRA. MR Contrast: Dotarem MR Contrast Volume (ml): 20 MR Contrast Route of Administration: IV TECHNIQUE MR CERVICAL: Routine cervical MRI protocol without intravenous contrast. RESULT: Acute Change: There is no evidence of restricted diffusion to suggest an acute infarct. Hemorrhage: No evidence of prior parenchymal hemorrhage on the gradient echo images.. Mass Effect / Mass Lesion: No evidence of an intracranial mass or extra-axial fluid collection. No significant mass effect. No abnormal enhancement. Chronic Change: The white matter is within normal limits of signal intensity for age. Parenchyma: No significant volume loss for age. The brain parenchyma is otherwise within normal limits of signal intensity and morphology. Ventricles: Normal caliber and morphology. Skull Base: Hypothalamic and pituitary region are grossly normal. Craniocervical junction is normal. No significant marrow replacement process. Vasculature: Major intracranial arterial structures, and dural venous sinuses show typical flow void, suggesting patency by spin echo criteria. Other: Mucosal thickening in the ethmoid air cells and left frontal sinus. Small retention cysts in the maxillary, with inspissation on the right. MRI CERVICAL: Counting reference: Craniocervical junction. Alignment: Alignment is anatomic. Craniocervical junction: Craniocervical junction is normal. Bone marrow / fracture: There is no evidence of pathologic marrow infiltration. No evidence of acute or chronic fracture. Cord: Focal cord atrophy and T2 hyperintense signal compatible with a small focus of myelomalacia at the C5-6 level, stable. Cervical soft tissues: The paraspinal soft tissues planes are maintained. C2-C3: Thickening of the posterior longitudinal ligament mildly effacing the ventral canal. No significant canal or foraminal stenosis. C3-C4: Mild disc degeneration. No significant canal or foraminal stenosis. C4-C5: Mild disc degeneration without significant canal stenosis. Uncovertebral and facet hypertrophy contribute to mild bilateral neural foraminal narrowing. Findings at this level are stable. C5-C6: Central disc protrusion effaces the ventral canal and results in mild to moderate canal stenosis. Uncovertebral and facet hypertrophy result in moderate-severe right and moderate left neural foraminal narrowing. Findings at this level are stable. C6-C7: Mild disc degeneration. No significant canal or foraminal stenosis. C7-T1: Canal and foramina are patent. Impression: IMPRESSION: MRI brain demonstrates no acute intracranial finding. Paranasal sinus disease as mentioned. Stable appearance of the cervical spine. Central disc protrusion at C5-6 resulting in mild-moderate canal stenosis, and focal myomalacia in the cervical cord at C5-6 level are unchanged. Moderate-severe right and moderate left neural foraminal narrowing at C5-6, stable. Left thyroid T2 hyperintense nodule measuring up to 2.0 cm is indeterminate. Follow-up thyroid ultrasound is recommended. Incidentally Detected Thyroid Nodule(s): Patient 35 years or older, nodule 1.5cm or larger and no suspicious imaging findings: Recommend dedicated thyroid US follow-up Mike et al. J Am Viviana Radiol 12:143-150; 2015 Research Soil Scientist: KENTRELL Transcribe Date/Time: Apr 26 2016 5:19P Dictated by : RAD CHAUHAN MD This examination was interpreted and the report reviewed and electronically signed by: RAD CHAUHAN MD on Apr 26 2016 5:32PM EST Complete Results MRI Lumbar Spine 10/27/21: Assessment/Plan: R51.9 Headaches (primary encounter diagnosis) Comment: Hx of headaches located in posterior cervical region radiating up posteriorly on both R and L. Treatments in the past have included use of muscle relaxant, gabapentin, and lyrica; all of which were unsuccessful due to SE or no relief of sx. Has also completed PT for headaches. MRI of brainand cervical spine were completed in interim to evaluate for intracranial or cervical changes contributing to sx. See results noted below. Since time of previous appointment he reports improvement inheadaches with roughly two to three over the past month. Can continue prn abortive medications and further recommendations regarding cervical spine below. 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 Notable past history of cervical surgery as well as lumbar stenosis. Also with recent R hip replacement with residual RLE weakness. Given past hx of myelomalacia noted on MRI of cervical spine and increase in falls, MRI of cervical spine repeated.Stable myelomalacia noted at C5-6 as well as severe foraminal stenosis. MRI of lumbar spine previously completed in 11/10 noting severe canal stenosis at L3-4 and L4- 5. Pt reports he had previously had follow up with neurosurgery/spine medicine and had discussed possible surgical intervention. Recommend follow up for further discussion and new consult to neurosurgery placed. Concern that cervical and/or lumbar findings are contributing to gait instability, further complicated by hx of orthostatic hypotension. R42 Lightheadedness Comment: Hx of chronic dizziness and lightheadedness. Past cardiac testing includes positive tilt table testing. Previous orthostatic VS obtained in office positive. He continues to follow with cardiology for medication adjustments. Discussed recommendations for increased fluid intake, use of compression stockings, and making slow position changes. R25.1 Tremor of right hand Comment: Pt previously reporting tremor to BUE, worse in R hand. No tremor noted at rest. Pt has since had follow up with movement disorder clinic. Dx of essential tremor. Recommendation made to continue propanolol 20mg BID. Pt to follow up if tremor changes or worsens. I63.9 Cerebrovascular accident (CVA), unspecified mechanism (HCC) Comment: MRI of brain completed to evaluate for changes contributing to headaches, gait instability, and tremor. 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 CTA head/neck ordered for further evaluation as well as outpt teletypesetter monitor. SVT noted and pt previously informed to follow up with his human resource intern and results faxed to [facility]; no afib noted. CTA however, confirming infarct in L caudothalamic groove as well las similar smaller insult on R. Given this finding, pt was started on DAPT (currently taking ASA 81mg and Plavix) and repeat MRI of brain ordered for further evaluation. Pending results may transition pt from ASA to Plavix. Incidental finding of thyroidnodule and nonspecific airspace disease in L lung also noted on CTA and pt encouraged to follow up with PCP. Recommend continuing stating therapy (currently taking Crestor 10mg). Goals for stroke prevention at this time are BP <140/90 and BG <140. Continue to get adequate physical activity wit hin limitations. Office Visit on 02/17/22 CONSULT TO NEUROSURGERY Halima Harvey APRN.CNP I spent a total of 45 minutes on the date of the service which included preparing to see the patient, yfsw-cg-rqzz patient care, completing clinical documentation, obtaining and/or reviewing separately obtained history, performing a medically appropriate examination, counseling and educating the pat ient/family/caregiver, and ordering medications, tests, or procedures. documented in this encounterAdena [facility]09-19-[facility]22 Miscellaneous Notes* Telephone Encounter - Halima Harvey APRN.CNP - 02/07/2022 8:48 AM EDT Prescription sent to [facility]. Pending MRI results may continue Plavix past three weeks. * Telephone Encounter - Jessi Acosta LPN - 02/04/2022 1:34 PM EDT Given difficulty scheduling follow up. Would like pt to complete additional orders at this time. Will have patient repeat MRI of brain given new finding of stroke on CTA (aware last MRI completed in November- new order entered). Would like to confirm CTA findings. In addition, would like to begin Plavix in addition to ASA for three weeks, would like to ensure pt does not have hx of GI bleed or other bleeding/clotting disorder prior to ordering (do not see hx of such on review of chart). PATIENT NOTIFIED OF SAME. Patient denies having history of GI bleed or any other bleeding/clotting disorder. Send Plavix to [facility] in [place]. Call was transferred to [facility] to schedule MRI. * Telephone Encounter - BEVERLEY Landeros - 02/01/2022 9:09 AM EDT TC to patient's Tere who verbalizes understanding of results. This staff attempted to schedule but soonest appointment was in May. Please try to assist Tere in scheduling a sooner appointment for Rony with [facility] at providers request. Thank you. BEVERLEY Landeros * Telephone Encounter - BEVERLEY Landeros - 02/01/2022 9:00 AM EDT ----- Message from Halima Harvey APRN.FORM SETTER [employer] sent at 01/31/2022 4:36 PM EDT ----- CTA of brain/neck noting finding of thyroid nodule as well as nonspecific airspace in lung. Please have patient follow up with his PCP regarding this result for further steps for testing. CTA also notes what appears to be a small new stroke since time of MRI. Also noted is narrowing of the vertebral artery. Please make sure that he is taking ASA 81mg daily. Also recommend continuing to closely monitor cholesterol and blood glucose with his PCP. Please have him schedule follow up in office to discuss further as it has been three months since time of last visit. documented in this encounterAdena [facility]ike [facility] Center09-06-2022 History of Present illness Narrative* Rachel Todd Che, RT(R) - 01/25/2022 10:00 AM EDT Radiology Service Progress Note DATE OF SERVICE: January 25, 2022 TIME: 3:04 PM PATIENT IDENTITY VERIFICATION COMPLETED USING TWO (2) STANDARD IDENTIFIERS: Name and Date of confirmed by patient verbally. FALL SCREENING: Has the patient had 2 falls in the last year or 1 fall with injury or currently using an Ambulatory Assistive Device (Walker, Cane, Wheelchair, Crutches, etc.)? No PATIENT GENDER DATA: Male PATIENT RELEVANT IMPLANT DATA REVIEWED: Yes ALLERGIES: Reviewed and unchanged CONTRAST ALLERGY: NO. EXAM: CT -CONTRAST INDUCED NEPHROPATHY RISK FACTORS: Patient age > 60 years CREATININE: Creatinine Date Value Ref Range Status 01/25/2022 1.09 0.73 - 1.22 mg/dL Final 10/21/2021 1.19 0.73 - 1.22 mg/dL Final 03/15/2021 1.24 (H) 0.73 - 1.22 mg/dL Final Estimated Glomerular Filtration Rate Date Value Ref Range Status 01/25/2022 69 >=60 mL/min/1.73m Final Comment: Estimated Glomerular Filtration Rate (eGFR) is calculated using the 2020 CKD-EPI creatinine equation. This equation utilizes serum creatinine, sex, and age as parameters. The creatinine assay has traceable calibration to isotope dilution- mass spectrometry. Refer to KDIGO guidelines for clinical interpretation. In patients with unstable renal function, e.g. those with acute kidney injury, the eGFRmay not accurately reflect actual GFR. eGFR- Date Value Ref Range Status 03/15/2021 >60 Final P.O.C.T. RESULTS: POC done: Yes, See Lab Tab January 25, 2022 TREATMENT: N/A PERIPHERAL IV DATA: Ambulatory: A peripheral IV was started in the Left antecubital site with a Angio cath: 18 gauge. RADIOLOGY DEPARTMENT: CT; Exam(s) Completed: CTA Brain and CTA Neck SIGNATURE: RT Elton(R) PATIENT NAME: Rony Monzon DATE: January 25, 2022 TIME: 3:04 PM documented in this encounterAdena Pike [facility] Center09-01-2022 Instructions* Patient Instructions* Delia Waterman APRN.FORM SETTER STEEL PAN [employer]MS - 01/20/2022 1:22 PM EDT 1.) Start Paxlovid, take as directed. Stop Crestor while taking this medication. 2.) May use zrnh-zyr-qhrkbyu cold and cough medication as needed for symptom management. 3.) May continue to use Tylenol 1000 mg every 6 hours as needed for pain or fever. Stay well-hydrated. 4.) Red flag symptoms such as difficulty breathing go to ER. 5.) Quarantine for 5 days from the onset of symptoms per the CDC guidelines. 6.) Follow-up as needed. How to Manage Common Symptoms Associated with COVID for Adults Fever- Fever is a temperature over 100.4 F and can occur when the body is fighting an infection. Tohelp treat a fever: Drink plenty of fluids and stay well hydrated. Eat small amounts of easy to digest food. Rest. Your body needs rest to recover, but getting up and moving around the house frequently is a good idea. You should try to continue doing your normal daily activities (bathing, toileting, grooming, cooking), though you will probably feel tired, and need to rest often. Avoid any heavy activity or exercise, as this will increase your body temperature. Dress in light clothing and stay covered in a light sheet. Keep the room temperature cool. Take a slightly warm (not cold or cool) bath, or apply damp washcloths to the forehead and wrists. Cough- Cough is a common symptom associated with COVID and can be bothersome. To help treat a cough: Stay well hydrated. Try warm water or tea with lemon and/or honey to help soothe the cough. Use a humidifier to add moisture to the air. Try a product with menthol, like a cough drop or a rub for your chest such as Vicks, which can helpreduce cough. Try cough drops. Avoid smoking and other strong odors or perfumes. Try breathing exercises to keep your lungs open and clear. Take a big deep breath through your noseand hold for 5 seconds before slowly releasing. Repeat frequently, while you are awake. Congestion- Runny nose or nasal congestion can occur with COVID. Treatment can help relieve symptoms: Try OTC nasal saline spray, or nasal saline rinse to relieve mucus congestion. Nasal strips can help keep nasal passages open, to increase airflow. Elevating your head with an extra pillow in bed can help reduce congestion. Using a humidifier can increase moisture in the air, and make breathing easier. Sore Throat- Another common symptom with COVID, can be managed at home by: Stay well hydrated. Gargle with salt water - mix teaspoon salt with 1 cup of warm water and gargle. This helps to loosen mucus in the back of the throat and may reduce discomfort. Try ice chips, popsicles or lozenges to soothe the throat. Nausea/Vomiting/Diarrhea- These are common symptoms, and staying hydrated is most important. If you are nauseous or vomiting, start with small sips of water every 10-15 minutes and increase astolerated. You can try sucking an ice cube too. If tolerating, you can try pedialyte or Gatorade, or flat sprite or aleksey-vani. Start slowly and increase as you are able to. Instead of meals, try smaller, more frequent snacks. Try eating bland foods like crackers, toast, rice, and applesauce. Avoid spicy, greasy or fried foods and dairy containing foods. Even if you aren't feeling hungry due to lack of smell or taste, it is important to try to take in some food when you are able. After drinking and eating, rest in an upright position for up to two hours as needed to help decrease nauseous feelings. Try closing your eyes, avoid moving and watching TV. Avoid strong odors that can make you feel more nauseated. When to seek emergency medical attention Look for emergency warning signs for COVID-19. If having any of these symptoms, seek emergency medical care immediately: Trouble breathing Persistent pain or pressure in the chest New confusion Inability to wake or stay awake Bluish lips or face *This list is not all possible symptoms. Please call your medical provider for any other symptoms that are severe or concerning to you. FACT SHEET FOR PATIENTS, PARENTS, AND CAREGIVERS EMERGENCY USE AUTHORIZATION (EUA) OF PAXLOVID FOR CORONAVIRUS DISEASE 2019 (COVID-19) You are being given this Fact Sheet because your healthcare provider believes it is necessary to provide you with PAXLOVID for the treatment of guqc-rr-jzxvszjm coronavirus disease (COVID-19) caused by the SARS-CoV-2 virus. This Fact Sheet contains information to help you understand the risks and benefits of taking the PAXLOVID you have received or may receive. The U.S. Food and Drug Administration (FDA) has issued an Emergency Use Authorization (EUA) to makePAXLOVID available during the COVID-19 pandemic (for more details about an EUA please see What is an Emergency Use Authorization? at the end of this document). PAXLOVID is not an FDA-approved medicine in the [place]. Read this Fact Sheet for information about PAXLOVID. Talk to your healthcareprovider about your options or if you have any questions. It is your choice to take PAXLOVID. What is COVID-19? COVID-19 is caused by a virus called a coronavirus. You can get COVID-19 through close contact withanother person who has the virus. COVID-19 illnesses have ranged from very vgvs-re-zkzsnr, including illness resulting in . While information so far suggests that most COVID-19 illness is mild, serious illness can happen and maycause some of your other medical conditions to become worse. Older people and people of all ages with severe, long lasting (chronic) medical conditions like heart disease, lung disease, and diabetes,for example seem to be at higher risk of being hospitalized for COVID-19. What is PAXLOVID? PAXLOVID is an investigational medicine used to treat lcqg-fu-rxzramrv COVID-19 in adults and children [12 years of age and older weighing at least 88 pounds (40 kg)] with positive results of direct SARS-CoV-2 viral testing, and who are at high risk for progression to severe COVID-19, including hospitalization or . PAXLOVID is investigational because it is still being studied. There is limited information about the safety and effectiveness of using PAXLOVID to treat people with bczb-ys-aasfdaxx COVID-19. The FDA has authorized the emergency use of PAXLOVID for the treatment of ykti-jd-zpjvjgpj COVID-19in adults and children [12 years of age and older weighing at least 88 pounds (40 kg)] with a positive test for the virus that causes COVID-19, and who are at high risk for progression to severe COVID-19, including hospitalization or , under an EUA. 1 Revised: 06 August 2021 What should I tell my healthcare provider before I take PAXLOVID? Tell your healthcare provider if you: Have any allergies Have liver or kidney disease Are or plan to become Are a child Have any serious illnesses Tell your healthcare provider about all the medicines you take, including prescription and syjc-xra-yxqpkvp medicines, vitamins, and herbal supplements. Some medicines may interact with PAXLOVID and may cause serious side effects. Keep a list of your medicines to show your healthcare provider and pharmacist when you get a new medicine. You can ask your healthcare provider or pharmacist for a list of medicines that interact with PAXLOVID. Do not start taking a new medicine without telling your healthcare provider. Your healthcare provider can tell you if it is safe to take PAXLOVID with other medicines. Tell your healthcare provider if you are taking combined hormonal contraceptive. PAXLOVID may affect how your control pills work. Females who are able to become should use another effective alternative form of contraception or an additional barrier method of contraception. Talk to your healthcare provider if you have any questions about contraceptive methods thatmight be right for you. How do I take PAXLOVID? PAXLOVID consists of 2 medicines: nirmatrelvir and ritonavir. Take 2 pink tablets of nirmatrelvir with 1 white tablet of ritonavir by mouth 2 times each day (in the morning and in the evening) for 5 days. For each dose, take all 3 tablets at the same time. If you have kidney disease, talk to your healthcare provider. You may need a different dose. Swallow the tablets whole. Do not chew, break, or crush the tablets. Take PAXLOVID with or without food. Do not stop taking PAXLOVID without talking to your healthcare provider, even if you feel better. If you miss a dose of PAXLOVID within 8 hours of the time it is usually taken, take it as soon as you remember. If you miss a dose by more than 8 hours, skip the missed dose and take the next dose atyour regular time. Do not take 2 doses of PAXLOVID at the same time. If you take too much PAXLOVID, call your healthcare provider or go to the nearest hospital emergency room right away. If you are taking a ritonavir-or cobicistat-containing medicine to treat hepatitis C or Human Immunodeficiency Virus (HIV), you should continue to take your medicine as prescribed by your healthcare provider. Talk to your healthcare provider if you do not feel better or if you feel worse after 5 days. Who should generally not take PAXLOVID? Do not take PAXLOVID if: You are allergic to nirmatrelvir, ritonavir, or any of the ingredients in PAXLOVID You are taking any of the following medicines: Alfuzosin Pethidine, propoxyphene Ranolazine Amiodarone, dronedarone, flecainide, propafenone, quinidine Colchicine Lurasidone, pimozide, clozapine Dihydroergotamine, ergotamine, methylergonovine Lovastatin, simvastatin Sildenafil (Revatio ) for pulmonary arterial hypertension (PAH) Triazolam, oral midazolam Apalutamide Carbamazepine, phenobarbital, phenytoin Rifampin Gail s Wort (hypericum perforatum) Taking PAXLOVID with these medicines may cause serious or life-threatening side effects or affect how PAXLOVID works. These are not the only medicines that may cause serious side effects if taken with PAXLOVID. PAXLOVID may increase or decrease the levels of multiple other medicines. It is very important to tell your healthcare provider about all of the medicines you are taking because additional laboratory tests or changes in the dose of your other medicines may be necessary while you are taking PAXLOVID. Your healthcare provider may also tell you about specific symptoms to watch out for that may indicate that you need to stop or decrease the dose of some of your other medicines. What are the important possible side effects of PAXLOVID? Possible side effects of PAXLOVID are: Allergic Reactions. Allergic reactions can happen in people taking PAXLOVID, even after only 1 dose. Stop taking PAXLOVID and call your healthcare provider right away if you get any of the following symptoms of an allergic reaction: hives trouble swallowing or breathing swelling of the mouth, lips, or face throat tightness hoarseness skin rash Liver Problems. Tell your healthcare provider right away if you have any of these signs and symptoms of liver problems: loss of appetite, yellowing of your skin and the whites of eyes (jaundice), dark-colored urine, pale colored stools and itchy skin, stomach area (abdominal) pain. Resistance to HIV Medicines. If you have untreated HIV infection, PAXLOVID may lead to some HIV medicines not working as well in the future. Other possible side effects include: altered sense of taste diarrhea high blood pressure muscle aches These are not all the possible side effects of PAXLOVID. Not many people have taken PAXLOVID. Serious and unexpected side effects may happen. PAXLOVID is still being studied, so it is possible that all of the risks are not known at this time. What other treatment choices are there? Tomasa schwarzivir) is FDA-approved for the treatment of hkiv-gj-zhyjnpod COVID-19 in certain adults and children. Talk with your doctor to see if Veklury is appropriate for you. Like PAXLOVID, FDA may also allow for the emergency use of other medicines to treat people with COVID-19. Go to https://www.fda.gov/udfaermhr-usxsohwgogud-aekciopihfa/qnw-xdhog-hsawdmqblw-and- policy-framework/tqrhnmorb-vaq-xviuaexybkqvw for information on the emergency use of other medicines that are authorized by FDA to treat people with COVID-19. Your healthcare provider may talk with you aboutclinical trials for which you may be eligible. It is your choice to be treated or not to be treated with PAXLOVID. Should you decide not to receive it or for your child not to receive it, it will not change your standard medical care. What if I am or ? There is senior nuclear medicine technologist treating women or mothers with PAXLOVID. For a motherand unborn baby, the benefit of taking PAXLOVID may be greater than the risk from the treatment. Ifyou are , discuss your options and specific situation with your healthcare provider. It is recommended that you use effective barrier contraception or do not have sexual activity whiletaking PAXLOVID. If you are , discuss your options and specific situation with your healthcare provider. How do I report side effects with PAXLOVID? Contact your healthcare provider if you have any side effects that bother you or do not go away. Report side effects to FDA MedWatch at www.fda.gov/medwatch or call 7-531-NUA3299 or you can reportside effects to [employer]. at the contact information provided below. Website Fax number Telephone number www.[employer] How should I store PAXLOVID? Store PAXLOVID tablets at room temperature, between 68?F to 77?F (20?C to 25?C). How can I learn more about COVID-19? Ask your healthcare provider. Visit https://www.cdc.gov/COVID19. Contact your local or state public health department. What is an Emergency Use Authorization (EUA)? The [place] FDA has made PAXLOVID available under an emergency access mechanism called an Emergency Use Authorization (EUA). The EUA is supported by a Community Service Representative of Health and Human Service (HHS) declaration that circumstances exist to justify the emergency use of drugs and biological productsduring the COVID-19 pandemic. PAXLOVID for the treatment of ivxn-er-thbpomal COVID-19 in adults and children [12 years of age andolder weighing at least 88 pounds (40 kg)] with positive results of direct SARS-CoV-2 viral testing, and who are at high risk for progression to severe COVID-19, including hospitalization or , has not undergone the same type of review as an FDA-approved product. In issuing an EUA under the COVID-19 public health emergency, the FDA has determined, among other things, that based on the total amount of scientific evidence available including data from adequate and well-controlled clinical trials, if available, it is reasonable to believe that the product may be effective for diagnosing, treating, or preventing COVID-19, or a serious or life-threatening disease or condition caused by COVID-19; that the known and potential benefits of the product, when used to diagnose, treat, or prevent such disease or condition, outweigh the known and potential risks of such product; and that there are no adequate, approved, and available alternatives. All of these criteria must be met to allow for the product to be used in the treatment of patients during the COVID-19 pandemic. The EUA for PAXLOVID is in effect for the duration of the COVID-19 declaration justifying emergency use of this product, unless terminated or revoked (after which the products may no longer be used under the EUA). Additional Information For general questions, visit the website or call the telephone number provided below. Website Telephone number www.UCOCX63gwrcNw.com (4-464-N61-GGZU) You can also go to www.[employer] or call for more information. Pfizer Distributed by [employer] [place] [address] [id number] Revised: 06 August 2021 documented in this encounterAdena Pike [facility] Center09-01-2022 History of Present illness Narrative* Delia Waterman, LAB SUPPORT TECH.FORM SETTER [employer]MS - 01/20/2022 1:20 PM EDT Chief Complaint Patient presents with: Covid Test Result This Team Access Model encounter involved medical decision making outside of a scheduled office visit. Patient was offered a virtual/telemedicine appointment in lieu of an office visit due to recommendations to reduce patient exposure to COVID-19. Telephone was used for evaluation of this patient. Patient agrees to the visit: Yes Patient Location: [facility] [place] Monzon is a 81 year old male who is contacted today for a phone visit This is an established patient of Dr. George Vaughan MD Reports: + Covid, was seen in [facility] care yesterday. Symptoms started 01/18/22, cough, headache, myalgias, and SOB with activity. Cough is mildly productive. Fever 101.8 this morning. Taking [id number] mg every 6 hours as needed. No difficulty with breathing. Would like Paxlovid. Past medical history, appointments, medications, allergies reviewed 01/20/2022 Previous Medical History PAST MEDICAL HISTORY Diagnosis Date Adjustment disorder with depressed mood Anemia Benign neoplasm of colon Coronary artery disease Diabetes (HCC) Essential hypertension, benign Gallbladder polyp needs repeat ultrasound in 06/06 Impaired fasting glucose Internal hemorrhoids without mention of complication Other and unspecified hyperlipidemia Personal history of colonic polyps Previous Surgical History PAST SURGICAL HISTORY Procedure Laterality Date APPENDECTOMY ARTHRP ACETBLR/PROX FEM PROSTC AGRFT/ALGRFT Right 08/08/2018 Dr. Charly Suh CARDIAC CATH N/A 02/02/2015 Completed at [facility] COLONOSCOPY FLX DX W/COLLJ SPEC WHEN PFRMD 07/11/12 Colonoscopy COLONOSCOPY FLX DX W/COLLJ SPEC WHEN PFRMD 02/24/2017 Colonoscopy COLONOSCOPY W/BIOPSY SINGLE/MULTIPLE 03/29/06 ESOPHAGOGASTRODUODENOSCOPY TRANSORAL DIAGNOSTIC 02/24/2017 EGD [facility] W/O FACETEC FORAMOT/DSC /[address] Cole PAST SURGICAL HISTORY OF Right 2007 knee surgery RPR [place] VAGINALIS HYDROCELE BOTTLE TYPE STENT PLACEMENT 08/2010 [facility] VASECTOMY UNI/BI SPX W/POSTOP SEMEN EXAMS Family History FAMILY HISTORY Problem Relation Age of Onset Heart Brother valvular heart disease Heart Brother valvular heart disease Heart Brother valvular heart diease Hypertension Sister COPD Father Stroke Father Heart Mother Patient Allergies ALLERGIES Allergen Reactions Lyrica [Pregabalin] Swelling B/L hand swelling Oxycontin [Oxycodon* Mental Status Change Hallucinating and Erratic hand movement. Norflex [Orphenadri* GI Upset Vicodin [Hydrocodon* nightmares Neurontin [Gabapent* Swelling Feels that he does not have a true allergy to this medication. States he had swelling, not rash. Current Medications Current Outpatient Medications on File Prior to Visit Medication Sig tiZANidine (ZANAFLEX) 4 mg tablet TAKE 1 TABLET BY MOUTH EVERY 6 HOURS NEEDED (MUSCLE SPASMS) FOR UP TO 10 DAYS. ofloxacin (OCUFLOX) 0.3 % ophthalmic solution INSTILL 1 DROP IN LEFT EYE 4 TIMES A DAY 3 DAYS BEFORE SURGERY AND 4 TIMES DAILY AFTER SURGERY propranolol (INDERAL) 20 mg tablet Take 1 tablet by mouth twice daily. amLODIPine (NORVASC) 5 mg tablet Take 1 tablet by mouth once daily. dutasteride (AVODART) 0.5 mg capsule Take 1 capsule by mouth once daily. (Patient not taking: Reported on 01/19/2022) lisinopril (PRINIVIL) 10 mg tablet Take 1 tablet by mouth twice daily. Dr. Kramer nitroglycerin sublingual (NITROSTAT) 0.4 mg SL tablet Dissolve 1 tablet under the tongue every 5 minutes as needed for chest pain. acetaminophen (TYLENOL EXTRA STRENGTH) 500 mg tablet Take 1 tablet by mouth every 6 hours as neededfor pain. hydroCHLOROthiazide (HYDRODIURIL, ESIDRIX) 25 mg tablet Take 12.5 mg by mouth once daily. (Patient not taking: Reported on 01/19/2022) diclofenac (VOLTAREN ARTHRITIS PAIN) 1 % topical gel Apply 4 g to affected area four times daily. FLUoxetine HCl (PROZAC) 40 mg capsule Take 1 capsule by mouth once daily. aspirin, enteric coated (ASPIRIN, ENTERIC COATED) 81 mg EC tablet Take 1 tablet by mouth once daily. triamcinolone (KENALOG) 0.025 % cream Apply to affected area twice daily. (Patient not taking: Reported on 01/19/2022) rosuvastatin (CRESTOR) 10 mg tablet Take 1 tablet by mouth daily at bedtime. multivitamin tablet Take 1 tablet by mouth once daily. No current facility-administered medications on file prior to visit. Social History Social History Tobacco Use Smoking status: Former Years: 19.00 Types: Cigarettes, Pipe Smokeless tobacco: Former Quit date: 05/22/1981 Tobacco comments: Quit in 1981 Vaping Use Vaping Use: Never used Substance Use Topics Alcohol use: No Drug use: No Review of Symptoms GENERAL: + Fever, Myalgias HEENT: Negative for headaches No eye discharge or redness No earaches No sore throat Nose POS/NEG for congestion and nasal discharge NECK: Negative for pain or swelling. No lumps RESPIRATORY: + cough, SOB CARDIOVASCULAR: Negative for chest pain GI: No nausea, vomiting, or diarrhea MUSCULOSKELETAL: Negative for bodyaches SKIN: Negative for rash or itching Neuro: No lightheadedness or dizziness EXAM: There were no vitals taken for this visit. Limited exam as visit was completed over the phone platform. Virtual visit completed using video, limited exam completed. Patient sounds or appears ill: Yes Patient is not able to speak in complete sentences: N/A Patient has labored breathing: No. Patient is audibly coughing: Yes Psych: Attitude - cooperative, easily engaged in conversation Affect - Euthymic, normal mood Mental status: Alert. Speech is clear and fluent with good repetition, comprehension Health Maintenance List BP CONTROLLED (<130/80) Never done SHINGRIX VACCINE(2 of 3) due on 01/06/2017 ADVANCE DIRECTIVE DISCUSSION Never done COVID-19 VACCINE(4 - Booster for Moderna series) due on 07/16/2021 INFLUENZA(1) due on 01/20/2022 LDL CHOLESTEROL due on 10/21/2022 SERUM CREATININE due on 10/21/2022 ANNUAL PCP TEAM CHRONIC DISEASE VISIT due on 11/02/2022 DIABETES SCREEN due on 10/21/2024 DTAP,TDAP,TD(2 - Td or Tdap) due on 01/23/2029 PNEUMOCOCCAL: 65+ Completed Data reviewed Last 5 Encounter BP Readings: Date: BP: 01/19/2022 160/64 12/20/2021 121/72 11/11/2021 110/60 11/02/2021 148/88 09/13/2021 128/58 BMI Readings from Last 5 Encounters: 01/19/22 : 27.81 kg/m 12/20/21 : 27.59 kg/m 11/11/21 : 27.18 kg/m 11/02/21 : 27.23 kg/m 09/13/21 : 27.60 kg/m Last 5 Encounter Wt Readings: Date: Wt: 01/19/2022 95.6 kg (210 lb 12.8 oz) 12/20/2021 94.8 kg (209 lb 1.6 oz) 11/11/2021 93.4 kg (206 lb) 11/02/2021 93.6 kg (206 lb 6.4 oz) 09/13/2021 94.9 kg (209 lb 3.2 oz) Medication and allergy list reviewed, reconciled and updated 01/20/2022 Total appointment time on phone with patient = 21-30 minutes Nirmatrelvir/Ritonavir (Paxlovid) Eligibility and Patient Discussion [facility] Formulary Restriction Criteria: Adult outpatients 18 years and older with ALL of the following: [x] Patient has positive SARS-COV-2 viral test (PCR or antigen test) during current illness [x] Patient has symptoms for 5 days or less [x] Not requiring hospitalization at any time for management of COVID-19 [x] Not requiring supplemental oxygen or a change in baseline supplemental oxygen [x] Not utilized for pre-exposure or post-exposure prophylaxis for prevention of COVID-19 [x] Patient does not have severe renal impairment (eGFR < 30 mL/min) or severe hepatic impairment (Child-Vidal Class C) [x] Meeting at least one of the criteria for high risk of progression to severe COVID-19: [x] Age over 65 years [] Cancer [x] Chronic kidney disease [] Chronic liver disease [] Chronic lung diseases, including cystic fibrosis [] Dementia or other neurological conditions [] Diabetes (type 1 or type 2) [] Disabilities, including Down syndrome and neurodevelopmental disorders [x] Heart conditions [] HIV infection [] Immunocompromised state [] Mental health conditions [] Medical related technological dependence (tracheostomy, gastrostomy, or positive pressure ventilation (not related to COVID) [] Overweight and obesity (BMI greater or equal to 25 for adults) [] Physical inactivity [] [] Sickle cell disease or thalassemia [] Smoking, current or former [] Solid organ or blood stem cell transplant [] Stroke or cerebrovascular disease [] Substance use disorders [] Tuberculosis [] People from racial and ethnic minority groups Criteria above are met: Yes Date of Positive Test:01/20/2022 Date of Symptom Onset: 01/18/2022 Patient received COVID vaccine: Yes Drug-Drug interactions reviewed: Yes. Drug interactions were identified and the following actions were taken Stop Crestor. I have discussed the use of the investigational therapeutic, nirmatrelvir/ritonavir, for the treatment of mild to moderate COVID-19 and its use under Emergency Use Authorization with the patient. The patient was informed that nirmatrelvir/ritonavir is not an FDA approved drug and that it is authorized for use under this Emergency Use Authorization. The patient was also informed of the significant known benefits and potential risks of nirmatrelvir/ritonavir, and the extent to which such potential risks and benefits are unknown. The patient was informed that there is mandatory reporting of all medication errors and serious adverse events potentially related to nirmatrelvir/ritonavir treatment within 7 calendar days from the onset of the event and that events up to 28 days after completion of therapy need to be reported. The discussion included alternatives to receiving nirmatrelvir/rit onavir, including clinical trials, and potential the risks and benefits of those alternatives. The patient was provided electronically with the Fact Sheet for Patients, Parents and Caregivers. The patient was also instructed that in addition to the treatment with nirmatrelvir/ritonavir, he/she should continue to self-isolate and use infection control measures (e.g., wear mask, isolate, social distance, avoid sharing personal items, clean and disinfect high touch surfaces, and frequent h andwashing) according to CDC guidelines. The patient stated understanding and gave verbal consent to proceeding with nirmatrelvir/ritonavir treatment. Delia Waterman APRN.[employer] January 20, 2022 1:44 PM ASSESSMENT/PLAN: 1. COVID-19 - ICD9: 079.89, ICD10: U07.1 - Start Paxolvid, medication education and instructions discussed. - Stop crestor while taking Paxlovid, Patient and agreeable. - Continue supportive care at home. May use any [id number] cold and cough medication as needed for symptom management. - Red flag symptoms given to patient and , they both verbalized understanding when to seek emergency care. - Quarantine for 5 days per the CDC guidelines. - NIRMATRELVIR 300 MG (150 MG X2)-RITONAVIR 100 MG TABLET,DOSE PACK(EUA) Follow-up as needed or sooner if symptoms get worse or do not improve. Discussed treatment plan and patient voices understanding. Patient's questions answered appropriately. Medications and potential side effects were discussed and patient voices understanding. Delia Waterman APRN.THANG This note was partially generated using [employer] voice recognition system. Note was reviewed for accuracy. There may be minor misspellings or grammar miscues with [employer] voice recognition. documented in this encounterA[facility]09-[facility]22 Miscellaneous Notes* Telephone Encounter - SKYLAR England - 01/20/2022 11:[address] order for stat creatinine order for pt , pt appt 01/25/[address] documented in this encounterAdena [facility]08-[facility]-2022 History of Present illness Narrative* Sandra Espitia MD - 12/20/2021 8:01 AM EDT [facility] - NEW PATIENT EVALUATION George Vaughan MD [id number] [facility] [id number] I had the pleasure of evaluating Mr. Monzon in our clinic today. As you know he is a 81 year old male who is seen for evaluation of tremor and falls. He is seen with his . Subjective HISTORY OF PRESENT ILLNESS: Initial HPI Tremor for at least [address] Flannery and diagnosed with ET. Tremor is worse on the right. Not progressing. Notices when using screwdriver, writing. No micrographia. Propranolol from PCP in 2019 for tremor and BP. Tremors are manageable. Falling for the past year. Had UTI that went septic back in June. Then had TURP couple of weekslater. More falls after that which attributes to weakness. Hasn't fallen for awhile. Last fallwas September. Backed up, lost balance and fell. Loses balance. No falls due to lightheadedness. Knows itis coming and he sits. Doesn't shuffle. Walks slower. Legs hurt when he walks and is cautious. No cane or walker generally. Only if pain gets bad. No weakness or numbness. In addition, the following activities of daily living that may be affected by tremors were evaluated: Speaking: Not affected Feeding: Not affected Bringing Liquids to Mouth: Not affected Hygiene: Not affected Dressing: Not affected Writing: Affected (mild) Working: Affected (mild) Daily activities Difficulties with eating: No Difficulties in dressing: No. Just trouble with cuff buttons, slow Difficulties with hygiene activities: No Difficulties with handwriting: Yes: tremor Difficulties with doing hobbies and other activities: No Difficulties turning in bed: No Difficulties getting out of bed, car or chair: No Autonomic/Pain Constipation problems: Yes: Speech/Swallowing Speech problems: No Drooling: No Chewing and swallowing problems: No Sleep/Fatigue Sleep problems: No REM sleep behavior disorder: yes Years. Worse over past few years. initially just talking. No safety concerns. Restless Legs Syndrome: Impaired sense of smell: No Mood/Behavior Depression: PQH-9 = 4 usually representing no significant (0-4) depression. Anxiety: WILY-7 = 0 usually representing no significant (0-4) anxiety. Finally, the following table shows the patient's overall global physical and mental health using the PROMIS scale: PROMIS-10 Office Visit from 12/20/2021 in Neurology OT/PT/Speech Visit from 02/04/2019 in [facility] Physical Therapy Global Physical Health T Score 47.7 39.8 Global Mental Health T Score 45.8 50.8 0-10 Standard Pain Scale 4 8 *PROMIS-10 scoring scale: mean = 50, over 50 is above average, under 50 is below average Movement Disorders Medications Schedule - as of the start of the visit: propranolol Review of Systems Review of Systems Constitutional Positive for Fatigue Negative for Fevers, Night Sweats, Weight Gain and Weight Loss Eyes Negative for Change in vison not corrected by glasses and Vision loss or change Hent Positive for Hearing Loss and Tinnitus Negative for Difficulty Swallowing and Recent change in speech or voice Cardiovascular Positive for Leg pain with walking Negative for Chest Pain and Lightheadedness Respiratory Positive for SOB with exertion and Cough Negative for SOB at rest, Wheezing and Snoring GI Positive for Abdominal Pain, Diarrhea and Nausea/Vomiting Negative for Blood in Stool, Constipation and Heartburn Negative for Urgency and Incontinence Endocrine Negative for Heat Intolerance and Excessive Thirst Musculoskeletal Positive for Back Pain and Muscle Pain Negative for Joint Swelling and Stiff Joints Integumentary Negative for Rashes, Itching and Hair Changes Heme/Lymph Negative for Prolonged Bleeding, Easy Bruising and Swelling of Arm or Leg Allergy/Immunologic Positive for Nasal Congestion Negative for Swollen Nodes Neurologic Positive for Headache and Weakness Negative for Memory Problems, Numbness/Tingling, Double Vision, Trouble Swallowing and Slurred Speech Psychiatric Negative for Stress or Conflicts, Depression, Anxiety, Irritability, Hallucinations and Delusions Patient's Review of Systems has been reviewed with the patient and updated as appropriate. ALLERGIES Allergen Reactions Lyrica [Pregabalin] Swelling B/L hand swelling Oxycontin [Oxycodon* Mental Status Change Hallucinating and Erratic hand movement. Norflex [Orphenadri* GI Upset Vicodin [Hydrocodon* nightmares Neurontin [Gabapent* Swelling Feels that he does not have a true allergy to this medication. States he had swelling, not rash. Current Outpatient Medications Medication Sig propranolol (INDERAL) 20 mg tablet Take 1 tablet by mouth twice daily. amLODIPine (NORVASC) 5 mg tablet Take 1 tablet by mouth once daily. dutasteride (AVODART) 0.5 mg capsule Take 1 capsule by mouth once daily. lisinopril (PRINIVIL) 10 mg tablet Take 1 tablet by mouth twice daily. Dr. Kramer nitroglycerin sublingual (NITROSTAT) 0.4 mg SL tablet Dissolve 1 tablet under the tongue every 5 minutes as needed for chest pain. acetaminophen (TYLENOL EXTRA STRENGTH) 500 mg tablet Take 1 tablet by mouth every 6 hours as neededfor pain. hydroCHLOROthiazide (HYDRODIURIL, ESIDRIX) 25 mg tablet Take 12.5 mg by mouth once daily. diclofenac (VOLTAREN ARTHRITIS PAIN) 1 % topical gel Apply 4 g to affected area four times daily. FLUoxetine HCl (PROZAC) 40 mg capsule Take 1 capsule by mouth once daily. aspirin, enteric coated (ASPIRIN, ENTERIC COATED) 81 mg EC tablet Take 1 tablet by mouth once daily. triamcinolone (KENALOG) 0.025 % cream Apply to affected area twice daily. rosuvastatin (CRESTOR) 10 mg tablet Take 1 tablet by mouth daily at bedtime. multivitamin tablet Take 1 tablet by mouth once daily. No current facility-administered medications for this visit. Past Medical and Surgical History: has a past medical history of Adjustment disorder with depressed mood, Anemia, Benign neoplasm of colon, Coronary artery disease, Diabetes (HCC), Essential hypertension, benign, Gallbladder polyp, Impaired fasting glucose, Internal hemorrhoids without mention of complication, Other and unspecified h yperlipidemia, and Personal history of colonic polyps. has a past surgical history that includes appendectomy; vasectomy uni/bi spx w/postop semen exams; rpr tunica vaginalis hydrocele bottle type; colonoscopy w/biopsy single/multiple (03/29/06); sharp w/o facetec foramot/dsc 05/23 vrt sgm crv (); stent placement (08/2010); colonoscopy flx dx w/collj spec when pfrmd (07/11/12); cardiac cath (N/A, 02/02/2015); colonoscopy flx dx w/collj spec when pfrmd (02/24/2017); esophagogastroduodenoscopy transoral diagnostic (02/24/2017); past surgical history of (Right, 2006); and arthrp acetblr/prox fem prostc agrft/algrft (Right, 08/08/2018). Social History Tobacco Use Smoking status: Former Smoker Years: 19.00 Types: Cigarettes, Pipe Smokeless tobacco: Former User Quit date: 05/22/1981 Tobacco comment: Quit in 1981 Vaping Use Vaping Use: Never used Substance Use Topics Alcohol use: No Drug use: No Family History: family history includes COPD in his father; Heart in his brother, brother, brother, and mother; Hypertension in his sister; Stroke in his father. In addition, the patient denies any family history of PD/parkinsonism, tremor, other involuntary movement disorders. Objective Vital Signs: BP 121/72 (BP Site: Left Arm, BP Position: Sitting, BP Cuff Size: Regular Adult) Pulse 69 Ht 185.4 cm (6' 1) Wt 94.8 kg (209 lb 1.6 oz) SpO2 98% BMI 27.59 kg/m General Physical Examination: General: Awake, alert, interactive, no acute distress, good nutritional status, normal development,well-kept General Neurological Examination: Neurological Exam Mental Status Awake and alert. Speech is normal. Language is fluent with no aphasia. Fund of knowledge is appropriate for level of education. Cranial Nerves CN III, IV, : Extraocular movements intact bilaterally. CN V: Facial sensation is normal. CN VII: Full and symmetric facial movement. CN VIII: Hearing is normal. CN XI: Shoulder shrug strength is normal. CN XII: Tongue midline without atrophy or fasciculations. Motor Right Left Shoulder abduction 5 5 Elbow flexion 5 5 Hip flexion 4 5 Knee flexion 5 5 Dorsiflexion 5 5 Sensory Vibration intact right ankle, absent on left. Reflexes Right Left Brachioradialis 1+ 1+ Biceps 1+ 1+ Patellar 1+ 1+ Achilles 0 0 Right pathological reflexes: Janet's absent. Left pathological reflexes: Janet's absent. Coordination Right: [id number] normal. Rapid alternating movement normal. Left: [id number] normal. Rapid alternating movement normal. Movement Disorders Scales Performed: MDS-UPDRS Motor subscale condition of exam Medication Off/On/Naiive Time of UPDRS Time of Last Medication Last Medication Taken DBS Right DBS Left MDS-UPDRS Motor subscale scores Speech 1-Slight. Loss of modulation, diction or volume, but still all words easy to understand. Facial Expression 0-Normal. Normal facial expression. Rigidity Neck 0-Normal. No rigidity. Rigidity Right Upper Extremity 0-Normal. No rigidity. Rigidity Left Upper Extremity 0-Normal. No rigidity. Rigidity Right Lower Extremity 0-Normal. No rigidity. Rigidity Left Lower Extremity 0-Normal. No rigidity. Finger Taps Right 0-Normal. No problems. ` Finger Taps Left 0-Normal. No problems. Hand Movements Right 0-Normal. No problem. Hand Movements Left 0-Normal. No problem. Arm Movements Right 0-Normal. No problems. Arm Movements Left 0-Normal. No problems. Toe Taps Right 0-Normal. No problem. Toe Taps Left 0-Normal. No problem. Leg Agility Right 0-Normal. No problems. Leg Agility Left 0-Normal. No problems. Arise From Chair 2-Mild. Pushes self up from arms of chair without difficulty. Gait 1-Slight. Independent walking with minor gait impairment. Gait Freezing 0-Normal. No freezing. Posture Stability 0-Normal. No problems: recovers with one or two steps. Posture 0-Normal. No problems. Body Bradykinesia 0-Normal. No problems. Postural Tremor Hand Right 1-Slight. Tremor is present but less than 1cm in amplitude. Postural Tremor Hand Left 1-Slight. Tremor is present but less than 1cm in amplitude. Kinetic Tremor Right 1-Slight. Tremor is present but less than 1cm in amplitude. Kinetic Tremor Left 1-Slight. Tremor is present but less than 1cm in amplitude. Rest Tremor Amplitude Right Upper Extremity 0-Normal. No tremor. Rest Tremor Amplitude Left Upper Extremity 0-Normal. No tremor. Rest Tremor Amplitude Right Lower Extremity 0-Normal. No tremor. Rest Tremor Amplitude Right Lower Extremity 0-Normal. No tremor. Rest Tremor Amplitude Lip/Jaw 0-Normal. No tremor. Rest Tremor Constancy 0-Normal. No tremor. MDS-UPDRS Motor subscale totals Left Total 2 Right Total 2 Midline Total 4 Tremor Total / 10 4 PIGD Total / 3 1 Overall Total 8 % Change Compared to Last Filed Total Pertinent Studies Brain MRI 12/01/21 Acute Change: There is a small focus of restricted diffusion around the left caudothalamic groove, with associated T2/FLAIR hyperintensity, without significant mass effect. This may represent a subacute infarction. The size is up to 9 mm. Inferior margins would extend towards the hypothalamus on the left, may involve the margins of the posterior limb of the internal capsule, and some anterior-inferior thalamic nuclei. Hemorrhage: No evidence of prior parenchymal hemorrhage on the gradient echo images. Mass Lesion/ Mass Effect: No evidence of an intracranial mass or extra-axial fluid collection. No significant mass effect. Chronic Change: The white matter is within normal limits of signal intensity for age. Parenchyma: There is now mild-moderate generalized parenchymal volume loss, which is significantly progressed since 2016. The brain parenchyma is otherwise within normal limits of signal intensity and morphology. Ventricles: Normal caliber and morphology. Skull Base: Hypothalamic and pituitary region are grossly normal. Craniocervical junction is normal. No significant marrow replacement process. Vasculature: Major intracranial arterial structures, and dural venous sinuses show typical flow void, suggesting patency by spin echo criteria. Other: Again seen is some minor mucosal thickening in the paranasal sinuses, mildly reconfigured since 2016. Visualized paranasal sinuses and mastoid air cells are clear. The orbits and extracranial soft tissues are unremarkable. IMPRESSION: 1. LIKELY SMALL SUBACUTE INFARCT IN LEFT CAUDOTHALAMIC GROOVE 2. NO HEMORRHAGE OR SIGNIFICANT MASS EFFECT 3. MILD HAVE A MODERATE VOLUME LOSS, NOTABLY PROGRESSED SINCE 2016 MRI cervical spine 12/01/21 IMPRESSION: 1. 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 STABLE POST SURGICAL CHANGES FROM LAMINECTOMIES 3. NO HIGH-GRADE CENTRAL STENOSIS 4. FORAMINAL STENOSIS REMAINS GREATEST AT SEVERE RIGHT C5-6 Anatomic Variant: None. Assume 7 cervical vertebrae with counting from the craniocervical junction. Assessment and Plan: Assessment Mr. Monzon is a 81 year old male with ET. Tremors have been present since 2016 or earlier. Action tremors are consistent with ET. Discussed diagnosis of ET vs PD is clinical. He does not currently meet criteria for PD. Tremors are currently manageable on propranolol. Discussed wrist weights and other non-pharmacological remedies. Also with falls. Again does not seem to be related to parkinsonism. No evidence for NPH on MRI. Last fall was in September. Likely some exacerbation of his gait after sepsis in June. Should clinical picture am happy to re-evaluate. The following are the current problems noted and addressed during this visit: Essential tremor (primary encounter diagnosis) Plan 12/20/2021 Visit: Continue propranolol Level of service: Est level 5 (40-54 min). Time spent 47 min on the day of service, which included preparing to see the patient, [id number] patient care, completing clinical documentation, obtaining and/or reviewing separately obtained history, performing a medically appropriate examination and counseling and educating the patient/family/caregiver. Thank you for allowing me to be part of the clinical care of this patient! I look forward to continued participation in the patient s care with you. Please do not hesitate to call with any questions. Sincerely, Sandra Espitia MD documented in this encounterAdena [facility]ike [facility] Center07-27-2022 Miscellaneous Notes* Telephone Encounter - Lakeisha Narvaez MA - 12/15/2021 10:07 AM EDT Valid script at pharmacy. documented in this encounterAdena Pike [facility] Center07-21-2022 Miscellaneous Notes* Telephone Encounter - BEVERLEY Landeros - 12/09/2021 3:02 PM EDT TC to patient to see if he prefers getting heart monitor sent to him or coming into office. Pt saidhe will check with his and call us back. Please assist patient in scheduling with CTA of head/neck as well as a consult to spine medicine (second TE from 12/07). Thank you. BEVERLEY Landeros * Telephone Encounter - Halima Harvey APRN.THANG - 12/09/2021 1:02 PM EDT Outpatient teletypesetter monitor ordered. Please determine if pt needs mailed to house or will have placed in office. Orders also entered for CTA head/neck. * Telephone Encounter - BEVERLEY Landeros - 12/09/2021 12:44 PM EDT TC to patient who verbalizes understanding of providers message below. Patient is agreeable to heart monitor and imaging of blood vessels. Please advise. Thank you. BEVERLEY Landeros * Telephone Encounter - BEVERLEY Landeros - 12/07/2021 2:47 PM EDT TC with no answer. Left message to return call to receive results. If patient calls back, please also see results from separate 12/07 TE. BEVERLEY Landeros * Telephone Encounter - BEVERLEY Landeros - 12/07/2021 2:44 PM EDT ----- Message from Halima Harvey APRN.[employer] sent at 12/06/2021 3:09 PM EDT ----- MRI of brain does show a small stroke. This was noted to be subacute which means it likely happened within the past few weeks. As sx have been present for over a year this would not be the cause. However, given finding would like to proceed with additional imaging of blood vessels to evaluate forany areas of narrowing. Would also recommend completing outpatient teletypesetter monitor to evaluate for abnormal heart rhythm. If pt is agreeable will enter orders. Please ensure patient is taking ASA andcholesterol medication as noted in chart. documented in this encounterAdena [facility]ike [facility] Center07-13-2022 History of Present illness Narrative* RT Eduardo(R) - 12/01/2021 8:00 AM EDT Radiology Service Progress Note PATIENT NAME: Rony Monzon DATE OF SERVICE: December 01, 2021 TIME: 8:03 AM PATIENT IDENTITY VERIFICATION COMPLETED USING TWO (2) IDENTIFIERS: Name and Date of confirmedby patient verbally. FALL SCREENING: Has the patient had 2 falls in the last year or 1 fall with injury or currently using an Ambulatory Assistive Device (Walker, Cane, Wheelchair, Crutches, etc.)? No PATIENT GENDER DATA: Male PATIENT RELEVANT IMPLANT DATA REVIEWED: Yes RADIOLOGY DEPARTMENT: MR; Exam(s) Completed: Head: Routine Brain Spine: Cervical spine PERIPHERAL IV DATA: Not applicable SIGNED BY: RT Eduardo(R) December 01, 2021 8:03 AM documented in this encounterAdena Pike Medical Center07-11-2022 Miscellaneous Notes* Telephone Encounter - Nakia Yeager Pss - 11/29/2021 8:07 AM EDT Received MRI Lumbar Spine w/o contrast results by fax from [facility]. Sent report to scanning for the provider to review. * Telephone Encounter - BEVERLEY Landeros - 11/26/2021 3:59 PM EDT TC to [facility] who is faxing over results of recent MRI to [facility] per providers request. Will upload to patient chart, place on providers desk for review, and update when fax is received. BEVERLEY Landeros * Telephone Encounter - Halima Harvey APRN.CNP - 11/26/2021 3:34 PM EDT Please see if more recent MRI can be obtained. Per last visit patient was going to check if MRI completed within past year. Would like to see test results prior to completing additional imaging. * Telephone Encounter - Laney Phan RN - 11/26/2021 2:32 PM EDT Patient's Tere calling to state patient recently had an MRI of his back completed at [facility] on 11/26/21. This was ordered by Dr. Osman at [facility]. Tere states Halima Collieralireza has recently ordered an MRI of cervical spine and Tere would like Halima to request MRI results from [facility] for her review, and let patient know if he still needs the one orderedby Halima. Please call Tere with update at [phone]. Thank you. documented in this encounterAdena Pike Medical Center06-14-2022 History of Present illness Narrative* George Vaughan MD - 11/02/2021 3:20 PM EDT Chief Complaint Patient presents with: F/U 6 Month HPI Rony Monzon is a 81 year old male who presents here today for a 6 month follow up. Pt here today with his for a 6 month follow up. Has been busy with doctor appts. 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 Uro - Follows with [facility] Urology. Pt had TURP procedure 2/25/22, no longer taking Avodart or Flomax. GI - He has been having some issues with constipation and he's been using a stool softener fairly regularly. admits that she's been eating a low fiber diet due to diverticulitis and having to have some of her colon removed. Falls - Recently seen by Delia Waterman CNP on 09/13/21 with c/o of lightheadedness, headaches and falls. Hx of chronic neck pain and follows with Pain Management, Dr. Nichole, receiving injections. Pt reports SAUCEDO since fall back in July. Pt has been working with Cardiology due to chronic complaints of lightheadedness and adjusting his medication. He also f/u with Neurology in the past, no recentvisits. Pt referred back to Neuro at previous OV due to frequent falls. One fall since last OV, butthis was not related to lightheadedness and more of a loss of balance when she was walking backwards. Daughter who works with [employer] and has them in a Balance Class and exercises to do. Pt is s cheduled to see Neuro on 11/11/21. Pain - Chronic, follows with Pain Management. Pt reports that his neck pain seems to be getting worse and moving up his head, causing increased 24/7 headaches.. Most recent neck injection was 10/13 but no real improvement. Also notes b/l leg pain and calf pain with weakness at times that he feels will make him fall. Admits that he does do some things that he shouldn't do with his neck such as looking underneath a car dash, which flares up his neck. Plans on continuing tinkering on vehicles, doesn't want to give this up. HTN - Follows with [facility], Dr. Kramer. Pt on current regimen of Propranolol 20 mg twice daily, Amlodipine 5 mg once daily and Lisinopril [address] Kramer d/c HCTZ on 11/01/21 due to dizziness and lightheadedness and was advised to keep hydrated. Brought BP monitor in from home as he gets elevated reading when at home vs in the office. Cardio notified pt to bring cuff in to today's visit. Today was 141/76. Anxiety/Depression - On current regimen of Prozac 40 mg once daily. Stable. REHAN - Follow with [facility] Pulmonology. Past medical history, appointments, medications, allergies reviewed. Previous Medical History PAST MEDICAL HISTORY Diagnosis Date Adjustment disorder with depressed mood Anemia Benign neoplasm of colon Coronary artery disease Diabetes (HCC) Essential hypertension, benign Gallbladder polyp needs repeat ultrasound in 06/06 Impaired fasting glucose Internal hemorrhoids without mention of complication Other and unspecified hyperlipidemia Personal history of colonic polyps Previous Surgical History PAST SURGICAL HISTORY Procedure Laterality Date APPENDECTOMY ARTHRP ACETBLR/PROX FEM PROSTC AGRFT/ALGRFT Right 08/08/2018 Dr. Charly Suh CARDIAC CATH N/A 02/02/2015 Completed at [facility] COLONOSCOPY FLX DX W/COLLJ SPEC WHEN PFRMD 07/11/12 Colonoscopy COLONOSCOPY FLX DX W/COLLJ SPEC WHEN PFRMD 02/24/2017 Colonoscopy COLONOSCOPY W/BIOPSY SINGLE/MULTIPLE 03/29/06 ESOPHAGOGASTRODUODENOSCOPY TRANSORAL DIAGNOSTIC 02/24/2017 EGD [place]ARP W/O FACETEC FORAMOT/DSC 05/[address] Cole PAST SURGICAL HISTORY OF Right 2007 knee surgery RPR TUNICA VAGINALIS HYDROCELE BOTTLE TYPE STENT PLACEMENT 08/2010 [facility] VASECTOMY UNI/BI SPX W/POSTOP SEMEN EXAMS Family History FAMILY HISTORY Problem Relation Age of Onset Heart Brother valvular heart disease Heart Brother valvular heart disease Heart Brother valvular heart diease Hypertension Sister COPD Father Stroke Father Heart Mother Patient Allergies ALLERGIES Allergen Reactions Lyrica [Pregabalin] Swelling B/L hand swelling Oxycontin [Oxycodon* Mental Status Change Hallucinating and Erratic hand movement. Norflex [Orphenadri* GI Upset Vicodin [Hydrocodon* nightmares Neurontin [Gabapent* Swelling Feels that he does not have a true allergy to this medication. States he had swelling, not rash. Current Medications Current Outpatient Medications on File Prior to Visit Medication Sig propranolol (INDERAL) 20 mg tablet Take 1 tablet by mouth twice daily. amLODIPine (NORVASC) 5 mg tablet Take 1 tablet by mouth once daily. dutasteride (AVODART) 0.5 mg capsule Take 1 capsule by mouth once daily. (Patient not taking: Reported on 09/13/2021 ) lisinopril (PRINIVIL) 10 mg tablet Take 1 tablet by mouth twice daily. Dr. Kramer nitroglycerin sublingual (NITROSTAT) 0.4 mg SL tablet Dissolve 1 tablet under the tongue every 5 minutes as needed for chest pain. acetaminophen (TYLENOL EXTRA STRENGTH) 500 mg tablet Take 1 tablet by mouth every 6 hours as neededfor pain. hydroCHLOROthiazide (HYDRODIURIL, ESIDRIX) 25 mg tablet Take 12.5 mg by mouth once daily. diclofenac (VOLTAREN ARTHRITIS PAIN) 1 % topical gel Apply 4 g to affected area four times daily. FLUoxetine HCl (PROZAC) 40 mg capsule Take 1 capsule by mouth once daily. tamsulosin (FLOMAX) 0.4 mg Take 2 capsules by mouth daily at bedtime. (Patient not taking: Reportedon 09/13/2021 ) aspirin, enteric coated (ASPIRIN, ENTERIC COATED) 81 mg EC tablet Take 1 tablet by mouth once daily. triamcinolone (KENALOG) 0.025 % cream Apply to affected area twice daily. (Patient not taking: Reported on 09/13/2021 ) rosuvastatin (CRESTOR) 10 mg tablet Take 1 tablet by mouth daily at bedtime. multivitamin tablet Take 1 tablet by mouth once daily. No current facility-administered medications on file prior to visit. Social History Social History Tobacco Use Smoking status: Former Smoker Years: 19.00 Types: Cigarettes, Pipe Smokeless tobacco: Former User Quit date: 05/22/1981 Tobacco comment: Quit in 1981 Vaping Use Vaping Use: Never used Substance Use Topics Alcohol use: No Drug use: No EXAM: BP 148/88 Pulse 64 Resp 16 Wt 93.6 kg (206 lb 6.4 oz) BMI 27.23 kg/m General Appearance: Well appearing, alert, in no acute distress, well-hydrated, well nourished.. Lungs: Lungs clear to auscultation. No wheezing, rhonchi, rales.. Heart: RRR without murmur, gallop, or rubs. No ectopy. Extremities: Edema: Noted in left hand. No lower leg edema Health Maintenance List SHINGRIX VACCINE(2 of 3) due on 01/06/2017 ADVANCE DIRECTIVE DISCUSSION Never done COVID-19 VACCINE(4 - Booster for Moderna series) due on 07/16/2021 ANNUAL PCP TEAM CHRONIC DISEASE VISIT due on 09/13/2022 BP CONTROLLED (<130/80) due on 09/13/2022 LDL CHOLESTEROL due on 10/21/2022 SERUM CREATININE due on 10/21/2022 DIABETES SCREEN due on 10/21/2024 DTAP,TDAP,TD(2 - Td or Tdap) due on 01/23/2029 INFLUENZA Completed PNEUMOCOCCAL: 65+ Completed Data reviewed Appointment on 10/21/2021 Component Date Value Cholesterol, Total 10/21/2021 175 Triglyceride 10/21/2021 83 HDL Cholesterol 10/21/2021 55 Non HDL Cholesterol 10/21/2021 120 Fasting Time 10/21/2021 12 VLDL Cholesterol 10/21/2021 17 TC:HDL Ratio 10/21/2021 3.18 LDL Cholesterol 10/21/2021 103 (A) LDL:HDL Ratio 10/21/2021 1.87 Protein, Total 10/21/2021 7.4 Albumin 10/21/2021 4.3 Calcium, Total 10/21/2021 9.7 Bilirubin, Total 10/21/2021 0.3 Alkaline Phosphatase 10/21/2021 96 AST 10/21/2021 24 ALT 10/21/2021 28 Glucose 10/21/2021 99 BUN 10/21/2021 24 Creatinine 10/21/2021 1.19 Sodium 10/21/2021 136 Potassium 10/21/2021 4.0 Chloride 10/21/2021 99 CO2 10/21/2021 26 Anion Gap 10/21/2021 11 Estimated Glomerular Jv* 10/21/2021 62 WBC 10/21/2021 11.76 (A) RBC 10/21/2021 4.09 (A) Hemoglobin 10/21/2021 12.7 (A) Hematocrit 10/21/2021 39.0 MCV 10/21/2021 95.4 MCH 10/21/2021 31.1 MCHC 10/21/2021 32.6 RDW-CV 10/21/2021 14.0 Platelet Count 10/21/2021 422 (A) MPV 10/21/2021 10.2 Neut% 10/21/2021 72.7 Abs Neut 10/21/2021 8.53 (A) Lymph% 10/21/2021 15.8 Abs Lymph 10/21/2021 1.86 [place]% 10/21/2021 8.3 Abs [place] 10/21/2021 0.98 (A) Eosin% 10/21/2021 2.0 Abs Eosin 10/21/2021 0.24 Baso% 10/21/2021 0.9 Abs Baso 10/21/2021 0.11 (A) Immature Gran % 10/21/2021 0.3 Abs Immature Gran 10/21/2021 0.04 NRBC 10/21/2021 0.0 Absolute nRBC 10/21/2021 <0.01 Diff Type 10/21/2021 Auto ASSESSMENT/PLAN: 1. Essential hypertension, benign - ICD9: 401.1, ICD10: I10 (primary diagnosis) - good control - Continue current medication(s) - Recommended regular aerobic exercise. - Recommend home blood pressure monitoring, to bring results in on next visit - Goal of BP <130/80 2. Hyperlipidemia, mixed - ICD9: 272.2, ICD10: E78.2 - good control - Continue current medication. - Encouraged following a low fat, low cholesterol diet. - Discussed the benefits of regular aerobic exercise and weight loss. 3. WILY (generalized anxiety disorder) - ICD9: 300.02, ICD10: F41.1 - Stable - Continue current medication regimen. 4. Depression, unspecified depression type - ICD9: 311, ICD10: F32.A - Stable - Continue current medication regimen. 5. Frequent falls - ICD9: V15.88, ICD10: R29.6 - Cont to monitor - Referred her to Neuro 6. Vasovagal syncope - ICD9: 780.2, ICD10: R55 - Stable 7. Anemia, unspecified type - ICD9: 285.9, ICD10: D64.9 - Stable, cont monitoring labs 8. Cervicalgia - ICD9: 723.1, ICD10: M54.2 - As noted below 9. REHAN on CPAP - ICD9: 327.23, V46.8, ICD10: G47.33, Z99.89 - Stable 10. Chronic neck pain - ICD9: 723.1, 338.29, ICD10: M54.2, G89.29 - Cont f/u with Pain Management and Dr. Osman, may be referred to Surgeon. 11. Spinal stenosis of lumbar region, unspecified whether neurogenic 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 present - ICD9: 724.02, ICD10: M48.061 - Cont f/u with Pain Management - Use Tylenol and Tizanidine prn 12. Hypertrophy of prostate with urinary obstruction - ICD9: 600.01, 599.69, ICD10: N40.1, N13.8 - Cont f/u with Urology 6 mo f/u with labs I agree with the Chief Complaint, ROS, and Past Histories independently gathered by the clinical it support specialist and the remaining scribed note accurately describes my personal service to the patient. Medical Decision Making: Problems: Moderate: 2+ stable chronic illnesses Data: Unique test result(s) reviewed: 3+ Unique test(s) ordered: 3+ Risk: Moderate: Drug management Medical Decision Making Level: 4 - Moderate George Vaughan MD The documentation for this note was completed by Madisyn Gonsales Ma acting as scribe for George Vaughan MD. November 02, 2021 3:25 PM. Madisyn Gonsales Ma documented in this encounterAdena Pike Medical Center04-25-2022 Instructions* Patient Instructions* Delia Waterman APRN.CNP - 09/13/2021 3:14 PM EDT 1.) Schedule appointment with Dr. Strange (Neurologist). 2.) The office will call over to Dr. Kramer office to discuss cutting back on on your propanolol. 3.) May use zanaflex every 6 hours as needed for neck/muscle tension, may make May make you tired. 4.) Be mindful with position changes. Stay well hydrated. 5.) Follow up as needed. documented in this encounterAdena Pike Medical Center04-25-2022 History of Present illness Narrative* Delia Waterman APRN.CNP - 09/13/2021 2:40 PM EDT This is a 81 year old male who presents today with: Patient presents with: Dizziness HISTORY OF PRESENT ILLNESS: Rony Monzon is a 81 year old male. Patient presents with: Dizziness Here in the office for concerns for feeling lightheaded. History of chronic neck pain. Saw this patient in the fall for same concerns. Seeing pain management, Dr. Nichole. Having neck injections. Will be having another injection in the future. Pressure/pain behind both eyes, will be seeing opthalmologist in October. Having headache that starts on top of head that is occurring daily, with cramping pain along occipital lobe down into neck. Taking tylenol as needed These headaches began after a Fall around August 02 and . Did not hit head, no LOC. Lost footing when backing up. Has about 3-4 episodes per week where he loses balance and catches himself. Has noticed increased tremor in right hand. Bending over and changing position changes will get lightheaded. Has had a + tilt table test in the past. Cardiology has adjusted his BP medication. Has seen Neuro in [place] in the past to check for Parkinson's. It has been several years. Taking propanolol 20 mg twice daily, amlodipine 5 mg daily, lisinopril 10 mg twice daily. Seeing Dr. Kramer at [facility]. Stopped taking Avodart and flomax after Turp surgery. PAST MEDICAL HISTORY: PAST MEDICAL HISTORY Diagnosis Date Adjustment disorder with depressed mood Anemia Benign neoplasm of colon Coronary artery disease Diabetes (HCC) Essential hypertension, benign Gallbladder polyp needs repeat ultrasound in 06/06 Impaired fasting glucose Internal hemorrhoids without mention of complication Other and unspecified hyperlipidemia Personal history of colonic polyps PAST SURGICAL HISTORY Procedure Laterality Date APPENDECTOMY CARDIAC CATH N/A 02/02/2015 Completed at [facility] COLONOSCOP W/ OR W/O [facility] SPEC 07/11/12 Colonoscopy COLONOSCOP W/ OR W/O [facility] SPEC 02/24/2017 Colonoscopy COLONOSCOPY W/BX 03/29/06 EGD W/O OR W/BRUSH/WASH 02/24/2017 EGD LAMINECTOMY,CERVICAL 1-2000 Dr Cole PAST SURGICAL HISTORY OF Right 2006 knee surgery REPAIR OF HYDROCELE,TUNICA STENT PLACEMENT 08/2010 [facility] TOTAL HIP REPLACEMENT Right 08/08/2018 Dr. Charly Shu VASECTOMY ALLERGIES Lyrica [Pregabalin], Oxycontin [Oxycodone Hcl], Norflex [Orphenadrine Citrate], Vicodin [Hydrocodone-Acetaminophen], and Neurontin [Gabapentin] MEDICATIONS Current Outpatient Medications Medication Sig propranolol (INDERAL) 20 mg tablet Take 1 tablet by mouth twice daily. amLODIPine (NORVASC) 5 mg tablet Take 1 tablet by mouth once daily. dutasteride (AVODART) 0.5 mg capsule Take 1 capsule by mouth once daily. lisinopril (PRINIVIL) 10 mg tablet Take 1 tablet by mouth twice daily. Dr. Kramer nitroglycerin sublingual (NITROSTAT) 0.4 mg SL tablet Dissolve 1 tablet under the tongue every 5 minutes as needed for chest pain. acetaminophen (TYLENOL EXTRA STRENGTH) 500 mg tablet Take 1 tablet by mouth every 6 hours as neededfor pain. hydroCHLOROthiazide (HYDRODIURIL, ESIDRIX) 25 mg tablet Take 12.5 mg by mouth once daily. diclofenac (VOLTAREN ARTHRITIS PAIN) 1 % topical gel Apply 4 g to affected area four times daily. FLUoxetine HCl (PROZAC) 40 mg capsule Take 1 capsule by mouth once daily. tamsulosin (FLOMAX) 0.4 mg Take 2 capsules by mouth daily at bedtime. aspirin, enteric coated (ASPIRIN, ENTERIC COATED) 81 mg EC tablet Take 1 tablet by mouth once daily. triamcinolone (KENALOG) 0.025 % cream Apply to affected area twice daily. rosuvastatin (CRESTOR) 10 mg tablet Take 1 tablet by mouth daily at bedtime. multivitamin tablet Take 1 tablet by mouth once daily. No current facility-administered medications for this visit. FAMILY HISTORY Problem Relation Age of Onset Heart Brother valvular heart disease Heart Brother valvular heart disease Heart Brother valvular heart diease Hypertension Sister COPD Father Stroke Father Heart Mother Social History Tobacco Use Smoking status: Former Smoker Years: 19.00 Types: Cigarettes, Pipe Smokeless tobacco: Former User Quit date: 05/22/1981 Tobacco comment: Quit in 1981 Vaping Use Vaping Use: Never used Substance Use Topics Alcohol use: No Drug use: No REVIEW OF SYSTEMS GENERAL: No weight loss, malaise or fevers/chills HEENT: Negative for frequent or significant headaches, No changes in hearing or vision. NECK: Negative for lumps, goiter, pain and significant neck swelling RESPIRATORY: Negative for cough, hemoptysis, wheezing, dyspnea or shortness of breath CARDIOVASCULAR: Negative for chest pain, leg swelling, orthopnea, or palpitations GI: No nausea, vomiting, or diarrhea/constipation. No hematochezia/melena. No heartburn or reflux symptoms. : No history of dysuria, frequency or incontinence MUSCULOSKELETAL: + Neck Pain SKIN: Negative for lesions, rash, and itching ENDOCRINE: Negative for cold or heat intolerance, polyuria, polydipsia and goiter NEURO: + Headache, right hand tremor, falls MOOD: Negative for depression, anxiety, or suicidal ideation. EXAM: BP 128/58 Pulse 66 Resp 18 Wt 94.9 kg (209 lb 3.2 oz) SpO2 96% BMI 27.60 kg/m PHYSICAL EXAM: General Appearance: Well appearing, alert, in no acute distress, well-hydrated, well nourished.. Skin: Skin color, texture, turgor normal, no suspicious rashes or lesions. Head: Normocephalic, no masses, lesions, tenderness or abnormalities. Eyes: Anicteric sclera. Pupils are equally round and reactive to light. Extraocular movements are intact. Ears: External ears normal, canals clear. TM's pearly palmer. Lungs: Lungs clear to auscultation. No wheezing, rhonchi, rales. Heart: RRR without murmur, gallop, or rubs. No ectopy. Extremities: No deformities, edema, skin discoloration, clubbing or cyanosis. Good capillary refill. Musculoskeletal: + Muscle tension noted on scalene/bilateral trapezoid. Decreased neck ROM. Peripheral Pulses: Normal, Capillary refill <2secs, strong peripheral pulses, Pulses palpable. Neurologic: Gait normal. Reflexes normal and symmetric. Sensation grossly intact., Negative findings: speech normal, mental status intact, cranial nerves 2-12 intact, Romberg negative. ASSESSMENT/PLAN: 1. Frequent falls - ICD9: V15.88, ICD10: R29.6 (primary diagnosis) - Due to increased falls/balance issues recommend consult with neurology. - CONSULT TO NEUROLOGY 2. Tremor of right hand - ICD9: 781.0, ICD10: R25.1 - Same plan as #1. 3. Muscle tension pain - ICD9: 729.1, ICD10: M79.10 - May use Zanaflex and tylenol as needed for muscle tension. - Keep scheduled appointment with pain management. - TIZANIDINE 4 MG TABLET 4. Dizziness - ICD9: 780.4, ICD10: R42 - The office will contact human resource intern to discuss cardiac medications. Follow-up as needed or sooner if symptoms get worse or do not improve. Discussed treatment plan and patient voices understanding. Patient's questions answered appropriately. Medications and potential side effects were discussed and patient voices understanding. Delia Waterman APRN.THANG This note was partially generated using [employer] voice recognition system. Note was reviewed for accuracy. There may be minor misspellings or grammar miscues with Dragon voice recognition. documented in this encounterAdena Pike Medical Center06-10-2021 History of Present illness Narrative* Laury Caputo RT(R) - 10/29/2020 9:50 AM EDT Radiology Service Progress Note PATIENT NAME: Rony Monzon DATE OF SERVICE: October 29, 2020 TIME: 9:50 AM PATIENT IDENTITY VERIFICATION COMPLETED USING TWO (2) IDENTIFIERS: Name and Date of confirmedby patient verbally. FALL SCREENING: Has the patient had 2 falls in the last year or 1 fall with injury or currently using an Ambulatory Assistive Device (Walker, Cane, Wheelchair, Crutches, etc.)? No PATIENT GENDER DATA: Male PATIENT RELEVANT IMPLANT DATA REVIEWED: Not Applicable RADIOLOGY DEPARTMENT: General X-ray: Exam(s) Completed: Chest X-Ray PERIPHERAL IV DATA: Not applicable SIGNED BY: RT Glen(R) October 29, 2020 9:50 AM documented in this encounterAdena Pike Medical Center09-16-2015 History of Past illness Narrative* Problem Noted Date Resolved Date Hip pain 02/04/2015 05/02/2022 Left hip pain 10/29/2014 05/02/2022 Cervical strain 07/29/2014 05/02/2022 Gallbladder polyp 06/10/2014 07/05/2016 Disc degeneration, lumbar 06/25/20102016 Pain in joint, pelvic region and thigh 9 05/02/2022 Pain in joint, lower leg 12/14/2005 022 documented as of this encounter (statuses as of 05/05/2022) [facility] History of Past illness Narrative* Problem Noted Date Resolved Date Hip pain 02/04/2015 05/02/2022 Left hip pain 10/29/2014 05/02/2022 Cervical strain 07/29/2014 05/02/2022 Gallbladder polyp 06/10/2014 07/05/2016 Disc degeneration, lumbar 06/25/20102016 Pain in joint, pelvic region and thigh 9 05/02/2022 Pain in joint, lower leg 12/14/2005 022 documented as of this encounter (statuses as of 05/06/2022) [facility]-16[facility]2015 History of Past illness Narrative* Problem Noted Date Resolved Date Hip pain 02/04/2015 05/02/2022 Left hip pain 10/29/2014 05/02/2022 Cervical strain 07/29/2014 05/02/2022 Gallbladder polyp 06/10/2014 07/05/2016 Disc degeneration, lumbar 06/25/20102016 Pain in joint, pelvic region and thigh 200 9 05/02/2022 Pain in joint, lower leg 12/14/2005 022 documented as of this encounter (statuses as of 08/08/2022) [facility]2015 History of Past illness Narrative* Problem Noted Date Resolved Date Hip pain 02/04/2015 05/02/2022 Left hip pain 10/29/2014 05/02/2022 Cervical strain 07/29/2014 05/02/2022 Gallbladder polyp 06/10/2014 07/05/2016 Disc degeneration, lumbar 06/25/20102016 Pain in joint, pelvic region and thigh 200 9 05/02/2022 Pain in joint, lower leg 12/14/2005 022 documented as of this encounter (statuses as of 08/15/2022) [facility] History of Past illness Narrative* Problem Noted Date Diagnosed Date Resolved Date Hip pain 02/04/2015 05/02/2022 Left hip pain 10/29/2014 05/02/2022 Cervical strain 07/29/2014 05/02/2022 Gallbladder polyp 06/10/2014 07/05/2016 Disc degeneration, lumbar 06/25/2010 Pain in joint, pelvic region and thigh 09/16/2008 05/02/2022 Pain in joint, lower leg 12/14/200504/2022 documented as of this encounter (statuses as of 12/19/2022) [facility] History of Past illness Narrative* Problem Noted Date Diagnosed Date Resolved Date Hip pain 02/04/2015 05/02/2022 Left hip pain 10/29/2014 05/02/2022 Cervical strain 07/29/2014 05/02/2022 Gallbladder polyp 06/10/2014 07/05/2016 Disc degeneration, lumbar 06/25/2010 Pain in joint, pelvic region and thigh 09/16/2008 05/02/2022 Pain in joint, lower leg 12/14/200504/2022 documented as of this encounter (statuses as of 12/29/2022) [facility] History of Past illness Narrative* Problem Noted Date Diagnosed Date Resolved Date Hip pain 02/04/2015 05/02/2022 Left hip pain 10/29/2014 05/02/2022 Cervical strain 07/29/2014 05/02/2022 Gallbladder polyp 06/10/2014 07/05/2016 Disc degeneration, lumbar 06/25/2010 Pain in joint, pelvic region and thigh 09/16/2008 05/02/2022 Pain in joint, lower leg 12/14/200504/2022 documented as of this encounter (statuses as of 01/18/2023) [facility] History of Past illness Narrative* Problem Noted Date Diagnosed Date Resolved Date Hip pain 02/04/2015 05/02/2022 Left hip pain 10/29/2014 05/02/2022 Cervical strain 07/29/2014 05/02/2022 Gallbladder polyp 06/10/2014 07/05/2016 Disc degeneration, lumbar 06/25/2010 Pain in joint, pelvic region and thigh 09/16/2008 05/02/2022 Pain in joint, lower leg 12/14/200504/2022 documented as of this encounter (statuses as of 01/24/2023) [facility] History of Past illness Narrative* Problem Noted Date Diagnosed Date Resolved Date Hip pain 02/04/2015 05/02/2022 Left hip pain 10/29/2014 05/02/2022 Cervical strain 07/29/2014 05/02/2022 Gallbladder polyp 06/10/2014 07/05/2016 Disc degeneration, lumbar 06/25/2010 Pain in joint, pelvic region and thigh 09/16/2008 05/02/2022 Pain in joint, lower leg 12/14/200504/2022 documented as of this encounter (statuses as of 02/10/2023) [facility] History of Past illness Narrative* Problem Noted Date Diagnosed Date Resolved Date Hip pain 02/04/2015 05/02/2022 Left hip pain 10/29/2014 05/02/2022 Cervical strain 07/29/2014 05/02/2022 Gallbladder polyp 06/10/2014 07/05/2016 Disc degeneration, lumbar 06/25/2010 Pain in joint, pelvic region and thigh 09/16/2008 05/02/2022 Pain in joint, lower leg 12/14/200504/2022 documented as of this encounter (statuses as of 02/22/2023) [facility] History of Past illness Narrative* Problem Noted Date Diagnosed Date Resolved Date Hip pain 02/04/2015 05/02/2022 Left hip pain 10/29/2014 05/02/2022 Cervical strain 07/29/2014 05/02/2022 Gallbladder polyp 06/10/2014 07/05/2016 Disc degeneration, lumbar 06/25/2010 Pain in joint, pelvic region and thigh 09/16/2008 05/02/2022 Pain in joint, lower leg 12/14/200504/2022 documented as of this encounter (statuses as of 02/25/2023) [facility] History of Past illness Narrative* Problem Noted Date Diagnosed Date Resolved Date Hip pain 02/04/2015 05/02/2022 Left hip pain 10/29/2014 05/02/2022 Cervical strain 07/29/2014 05/02/2022 Gallbladder polyp 06/10/2014 07/05/2016 Disc degeneration, lumbar 06/25/2010 Pain in joint, pelvic region and thigh 09/16/2008 05/02/2022 Pain in joint, lower leg 12/14/200504/2022 documented as of this encounter (statuses as of 02/26/2023) [facility] History of Past illness Narrative* Problem Noted Date Diagnosed Date Resolved Date Hip pain 02/04/2015 05/02/2022 Left hip pain 10/29/2014 05/02/2022 Cervical strain 07/29/2014 05/02/2022 Gallbladder polyp 06/10/2014 07/05/2016 Disc degeneration, lumbar 06/25/2010 Pain in joint, pelvic region and thigh 09/16/2008 05/02/2022 Pain in joint, lower leg 12/14/200504/2022 documented as of this encounter (statuses as of 02/28/2023) [facility] History of Past illness Narrative* Problem Noted Date Resolved Date Gallbladder polyp 06/10/2014 07/05/2016 Disc degeneration, lumbar 06/25/20102016 documented as of this encounter (statuses as of 09/15/2021) [facility] History of Past illness Narrative* Problem Noted Date Resolved Date Gallbladder polyp 06/10/2014 07/05/2016 Disc degeneration, lumbar 06/25/20102016 documented as of this encounter (statuses as of 10/16/2021) [facility] History of Past illness Narrative* Problem Noted Date Resolved Date Gallbladder polyp 06/10/2014 07/05/2016 Disc degeneration, lumbar 06/25/20102016 documented as of this encounter (statuses as of 11/03/2021) [facility] History of Past illness Narrative* Problem Noted Date Resolved Date Gallbladder polyp 06/10/2014 07/05/2016 Disc degeneration, lumbar 06/25/20102016 documented as of this encounter (statuses as of 11/29/2021) [facility] History of Past illness Narrative* Problem Noted Date Resolved Date Gallbladder polyp 06/10/2014 07/05/2016 Disc degeneration, lumbar 06/25/20102016 documented as of this encounter (statuses as of 12/02/2021) [place] [address]-20-2015 History of Past illness Narrative* Problem Noted Date Resolved Date Gallbladder polyp 06/10/2014 07/05/2016 Disc degeneration, lumbar 06/25/20102016 documented as of this encounter (statuses as of 12/02/2021) [address]20-2015 History of Past illness Narrative* Problem Noted Date Resolved Date Gallbladder polyp 06/10/2014 07/05/2016 Disc degeneration, lumbar 06/25/20102016 documented as of this encounter (statuses as of 12/09/2021) [place] [address]20[address]2015 History of Past illness Narrative* Problem Noted Date Resolved Date Gallbladder polyp 06/10/2014 07/05/2016 Disc degeneration, lumbar 06/25/20102016 documented as of this encounter (statuses as of 12/15/2021) [address]20-2015 History of Past illness Narrative* Problem Noted Date Resolved Date Gallbladder polyp 06/10/2014 07/05/2016 Disc degeneration, lumbar 06/25/20102016 documented as of this encounter (statuses as of 12/20/2021) [place] [address]20[address]2015 History of Past illness Narrative* Problem Noted Date Resolved Date Gallbladder polyp 06/10/2014 07/05/2016 Disc degeneration, lumbar 06/25/20102016 documented as of this encounter (statuses as of 01/20/2022) [address]20-2015 History of Past illness Narrative* Problem Noted Date Resolved Date Gallbladder polyp 06/10/2014 07/05/2016 Disc degeneration, lumbar 06/25/20102016 documented as of this encounter (statuses as of 01/20/2022) [address]20-2015 History of Past illness Narrative* Problem Noted Date Resolved Date Gallbladder polyp 06/10/2014 07/05/2016 Disc degeneration, lumbar 06/25/20102016 documented as of this encounter (statuses as of 01/26/2022) [address]20-2015 History of Past illness Narrative* Problem Noted Date Resolved Date Gallbladder polyp 06/10/2014 07/05/2016 Disc degeneration, lumbar 06/25/20102016 documented as of this encounter (statuses as of 02/08/2022) [address]20-2015 History of Past illness Narrative* Problem Noted Date Resolved Date Gallbladder polyp 06/10/2014 07/05/2016 Disc degeneration, lumbar 06/25/20102016 documented as of this encounter (statuses as of 02/17/2022) [facility] History of Past illness Narrative* Problem Noted Date Resolved Date Gallbladder polyp 06/10/2014 07/05/2016 Disc degeneration, lumbar 06/25/20102016 documented as of this encounter (statuses as of 03/01/2022) [facility] History of Past illness Narrative* Problem Noted Date Resolved Date Gallbladder polyp 06/10/2014 07/05/2016 Disc degeneration, lumbar 06/25/20102016 documented as of this encounter (statuses as of 03/07/2022) [facility] History of Past illness Narrative* Problem Noted Date Resolved Date Gallbladder polyp 06/10/2014 07/05/2016 Disc degeneration, lumbar 06/25/20102016 documented as of this encounter (statuses as of 03/15/2022) [facility] History of Past illness Narrative* Problem Noted Date Resolved Date Gallbladder polyp 06/10/2014 07/05/2016 Disc degeneration, lumbar 06/25/20102016 documented as of this encounter (statuses as of 04/29/2022) [facility] Rom Olivera [facility] April 18, 2023 3:25pm Note Date/Time April 18, 2023 3:24pm [facility] Medical Records Department [address] [place] [id number] Counseling Note - Pharmacy 04/18/23 1522 MR#: [id number] Acct: [id number] Name: RONY MONZON Rep #:[id number] : 1940 82 From: Rom Olivera PCP: Dr. George Vaughan MD Status:AD M IN [facility] [place] [facility] Recon[facility] Pharmacy Service has performed discharge medication reconciliation for this patient. The patient's discharge medication list was reviewed for discrepancies and discrepancies were resolved. Medications at Discharge Home Medications fluoxetine 40 mg capsule (Prozac) 40 mg PO DAILY 07/04/18 acetaminophen 500 mg tablet (Tylenol Extra Strength) 500 mg PO Q6H PRN Pain 06/17/20 amlodipine 5 mg tablet 5 mg PO BID 03/17/21 multivitamin 1 tab PO DAILY 02/08/22 tizanidine 4 mg capsule 4 mg PO BID PRN muscle spasticity 02/08/22 clopidogrel 75 mg tablet 75 mg PO DAILY 05/05/22 nitroglycerin 0.4 mg sublingual tablet 0.4 mg sublingual Q5-15M PRN chest pain #25 tabs 05/26/22 rosuvastatin 10 mg tablet 10 mg PO QHS #90 tabs 11/24/22 lisinopril 10 mg tablet See Rx Instructions .Route .COMPLEX #180 tabs 03/02/23 oxycodone 5 mg tablet 5 mg PO Q6H PRN pain 04/16/23 propranolol 20 mg tablet 30 mg PO BID 04/16/23 04/18/23 1525 <Electronically signed by Rom mendes> Date _ Rom Kramer Signature (if applicable): Date CC: ~ Signed [facility] Work Phone: Consult note Author Scott Cornejo [facility] Note Date/Time January 10, 2025 2: 34pm [facility] Medical Records Department [address] [place] [address] Pre-Anesthesia Evaluation 01/10/25 1429 MR#: [id number] Acct: [id number] Name: RONY MONZON Rep #:[id number] : 1940 84 From: Scott HENRIQUEZ PCP: Dr. George Vaughan MD Status:RE G SDC Y Race: C Location: [place] [address] ASA Classification* ASA Classification ASA Classification: 3 Assessment & Plan Anesthesia* Anesthesia Assessment Anesthesia Assessment: Discussed sedation and/or anesthesia options, risks, benefits, and alternatives with patient/parents/legal guardian/POA. Questions invited. The patient/parents/legal guardian/POA seems to understand and agrees to proceedwith anesthesia plan. Reviewed the physical assessment, medical history, allergy history and patient home medications list prior to surgery/procedure/anesthetic and documented any changes. Performed airway and anesthesia risk assessments. Anesthesia Type Anesthesia Type: MAC History Source History Obtained from:: Patient and Chart Anesthesia Focused Assessment* Temperature: 97.8 F Pulse Rate: 58 Blood Pressure: 169/70 Respiratory Rate: 18 Pulse Ox: 100 Airway Assessment Mouth opens: >3 cm Mallampati Score: II Teeth Condition: Intact Neck Range of motion (ROM): Full ROM Labs Anesthesia Preop lab: CBC WBC 9.2 K/mm3 (4.4-11.0) 11/13/24 13:42 11/13/24 RBC 3.74 M/mm3 (4.6-6.2) L 11/13/24 13:42 11/13/24 Hgb 11.7 g/dL (13.0-16.5) L 11/13/24 13:42 5 Hct 35.2 % (40-54) L 11/13/24 13:42 11/13/24 Plt Count 381 K/mm3 (150-450) 11/13/24 13:42 11/13/24 CHEMISTRY Potassium 4.4 mmol/L (3.3-5.1) 11/13/24 13:42 11/13/24 Sodium 135 mmol/L (133-145) 11/13/24 13:42 11/13/24 Magnesium 1.9 mg/dL (1.6-2.6) 04/17/23 05:09 04/17/23 Phosphorus 3.8 mg/dL (2.5-4.9) 04/17/23 05:09 04/17/23 BUN 13 mg/dL (4-19) 11/13/24 13:42 11/13/24 Creatinine 1.00 mg/dL (0.70-1.20) 11/13/24 13:42 11/13/24 Glucose 94 mg/dL (70-99) 11/13/24 13:42 11/13/24 POC Glucose 101 mg/dL (70-110) 11/24/13 21:48 11/24/13 TSH 1.04 uIU/mL (0.358-3.74) 06/18/20 09:59 COAG PT 14.1 SECONDS (11.7-14.9) 04/17/23 05:09 Pre-Assessment Diagnosis/Proposed Procedure Planned Operative Procedure(s): EGD Anesthesia History Anesthesia History - informatics developer: Anesthesia History - informatics developer Hx Hospitalization Yes: 07/2024 ER VISIT, 01/08/25 13:03 OVERNIGHT OBS, STRESS TEST Any Problems With Anesthesia No 01/08/25 13:03 Cholinesterase deficiency No 01/08/25 13:03 You/Your Family Experience No 01/08/25 13:03 fever (hyperthermia) with Relationship Recent Exposure to Contagious No 01/10/25 14:08 Disease Does patient have nerve No 01/08/25 13:03 stimulator Patient instructed to have device shut off --Does patient have Pacemaker No 01/10/25 14:08 or ICD? When Was Last Pacemaker Check QUESTION #4 FULL TEXT: You/Your Family Experience fever (hyperthermia) with Anesthesia Last Oral Intake Last Oral intake: Last Oral Intake NPO since 11:00 01/10/25 14:08 Meds taken in AM with sips of Yes 01/10/25 14:08 water? Meds patient instructed to see medlist 01/10/25 14:08 take am of surgery PONV PONV - informatics developer: PONV - informatics developer Female No 01/08/25 13:03 HX of Motion Sickness No 01/08/25 13:03 HX of N/V After Surgery No 01/08/25 13:03 Non-Smoker Yes 01/08/25 13:03 Duration of Surgery greater No 01/08/25 13:03 than 60 minutes Number of Risk Factors 1 01/08/25 13:03 PONV Score Low Risk 01/08/25 13:03 Height & Weight Height & Weight: Anesthesia: Height & Weight Height 6 ft 1 in 01/10/25 14:08 Weight: 97 kg 01/10/25 14:08 Body Mass Index (BMI) 28.2 01/10/25 14:08 Respiratory Assessment Respiratory Assessment - informatics developer: Respiratory Tract Infection Hx - informatics developer Hx Respiratory Tract Infection No 01/08/25 13:03 STOP Sleep Apnea STOP Sleep Apnea - informatics developer: STOP Sleep Apnea - informatics developer Hx Hypertension Yes: PER PT, CONTROLLED ON 01/08/25 13:03 MEDS Hx Sleep Apnea Yes 01/08/25 13:03 CPAP No 01/08/25 13:03 BIPAP No 01/08/25 13:03 Do you snore loudly (louder than talking or can be heard Do you often feel tired/ fatigued/ sleepy during daytime? Has anyone observed you stop breathing during sleep? STOP Results Positive 01/08/25 13:03 QUESTION #5 FULL TEXT : Do you snore loudly (louder than talking or can be heard through closed doors)? 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 Specify any problems Hx of Preganancy in last 3 N/A 01/08/25 13:03 Months Nurse Filling Out Transfusion MGRIFFITH 01/08/25 13:03 & Questions: Date: 01/08/25 01/08/25 13:03 Time: 13:05 01/08/25 13:03 Patient unable to answer at this time (ie. confused, unrespo /Reproduction History /Reproductive History - informatics developer: /Reproductive Hx- informatics developer Hx Now No 01/08/25 13:03 Gestational Age (in weeks): EDC: Hx Hx Para Hx Section SAB No 01/08/25 13:03 Active Medications Active Medications: Current Medications Generic Name Dose Route Start Last Admin Trade Name Mery PRN Reason Stop Dose Admin Lactated Ringer's 1,000 mls @ 15 mls/hr 01/10/25 14:00 01/10/25 14:13 IV 15 mls/hr .Q48H ABRAHAM Administration PFSH Medical History High cholesterol Stroke/cerebrovascular accident Syncope Gastric reflux Shortness of breath on exertion Sleep apnea COVID-19 (~01/18/22) Sepsis due to urinary tract infection History of transesophageal echocardiography (VIOLETTE) Wears hearing aid Wears glasses Depression Anxiety Walker as ambulation aid Arthritis Indwelling urethral catheter present Low iron Easy bruising History of hiatal hernia Former smoker History of tilt table evaluation Cardiology follow-up encounter History of echocardiogram History of stress test Enterococcus UTI H/O appendicitis Presence of stent in coronary artery (~09/08/10) Pure hypercholesterolemia Essential hypertension PTSD (post-traumatic stress disorder) Pulmonary hypertension Restless legs syndrome (RLS) REHAN (obstructive sleep apnea) Syncope and collapse Dizziness and giddiness Fatigue Shortness of breath Dyspnea Precordial chest pain 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 Atherosclerotic heart disease of [place] coronary artery without angina pectoris 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 Neck pain on left side Benign prostatic hypertrophy Coronary artery disease Home Medications ?Medication ?Instructions ?Recorded ?Last Taken ?Type fluoxetine 40 mg capsule (Prozac) 40 mg PO DAILY reflu x 07/04/18 01/10/25 History acetaminophen 500 mg tablet 500 mg PO Q6H PRN Pain 07/13/21 History (Tylenol Extra Strength) amlodipine 5 mg tablet 5 mg PO BID blood pressure 1 01/10/25 History multivitamin 1 tab PO DAILY vitamin 02/0801/10/25 History clopidogrel 75 mg tablet 75 mg PO DAILY anti platelet 05/05/22 01/04/25 History rosuvastatin 10 mg tablet 10 mg PO QHS cholesterol #90 tabs 11/24/22 Unknown Rx oxycodone 5 mg tablet 5 mg PO Q6H PRN pain 3 Unknown History lisinopril 10 mg tablet 10 mg PO BID blood pressure #180 04/11/24 01/10/25 Rx TABLETS nitroglycerin 0.4 mg sublingual 0.4 mg sublingual Q5-1 5M PRN chest 11/29/24 Unknown Rx tablet pain #25 tabs propranolol 20 mg tablet 20 mg PO BID blood pressure 11/29/24 01/10/25 History pantoprazole 20 mg tablet,delayed 20 mg PO QDAY #90 ta bs 12/02/24 Unknown Rx release Allergy/AdvReac Type Severity Reaction Status Date / Time hydrocodone (From Vicodin) Allergy Other Verified 01/10/25 13:59 orphenadrine Allergy Unknown Verified 01/10/25 13:59 pregabalin Allergy Swelling Verified 01/10/25 13:59 atorvastatin (From Lipitor) AdvReac Severe Intolerance Verified 01/10/25 13:59 ,Myalgias Family History Father CVA (cerebral vascular accident) Mother Cardiomegaly Brother CAD (coronary artery disease) Hx CABG and valve replacement Diabetes Brother History of heart valve replacement Brother Rheumatic fever Sister Hypertension Aortic aneurysm H/O aortic valve replacement Brother Cancer bladder Brother Thyroid disorder Surgical History History of umbilical hernia repair S/P TURP History of colonoscopy H/O heart artery stent History of right hip replacement Presence of coronary angioplasty implant and graft (~09/08/10) S/P right knee arthroscopy History of appendectomy hx cervical stenosis History of vasectomy History of hydrocelectomy Social History household members: spouse housing: house Smoking Status: Former smoker pack-years: 20 Tobacco: How many years used: 22 second hand exposure: No alcohol intake: never substance use type: does not use caffeine: Yes Type: carbonated beverages Number of servings: 1 and tea what type of physical activity do you participate in: none seatbelt use: always do you feel safe at home: Yes Prior Cardiac Testing/Procedures Prior Cardiac Testing/Procedures: VIOLETTE Review of Systems (Anesthesia) ROS Narrative System reviewed and no additional complaints, except as documented. Physical Exam Const alert and oriented x3 Orientation / Consciousness: awake HEENT dentition normal Neck full ROM Resp normal respiratory effort Extremity full ROM Neuro oriented x3 01/10/25 1434 <Electronically signed by Scott Cornejo CRNA> Date _ Scott Cornejo CELL OPERATOR Cosigner Signature: Date CC: ~ Signed [facility] Work Phone: Consult note Author Scott Cornejo [facility] Note Date/Time January 10, 2025 3: 21pm [facility] Medical Records Department [address] [place] [address] [place] [address] Anesthesia Postop Eval I 01/10/25 1520 MR#: [id number] Acct: [id number] Name: RONY MONZON MARIE Rep #:[id number] : 1940 84 From: Scott Collier RNA PCP: Dr. George Vaughan MD Status: G [facility] [place] Race: C Location: [place] [address] Anesthesia: Postop Eval I Current Vital Signs Temperature: 98 F Pulse Rate: 65 Blood Pressure: 169/74 Respiratory Rate: 16 Pulse Ox: 99 Oxygen Delivery Method: Room Air Assessment Airway patent: Yes Spontaneous unlabored respirations: Yes Mental status: Awake and Calm nausea: No Vomiting: No Anesthesia Complication: No Fluid Hydration Crystalloid volume administer (ml): 100 Total IV fluid infused: 100 Progress Note Anesthesia document: Postop Eval 1 completed: Yes 01/10/25 1521 <Electronically signed by Scott Cornejo CRNA> Date _ Scott Cornejo CELL OPERATOR Cosigner Signature: Date CC: ~ Signed [facility] Work Phone: Consult note Author Scott Cornejo [facility] Note Date/Time January 10, 2025 3: 28pm [facility] Medical Records Department [address] [place] [address] Anesthesia Postop Eval II 01/10/25 1527 MR#: [id number] Acct: [id number] Name: RONY MONZON Rep #:[id number] : 1940 84 From: Scott Collier RNA PCP: Dr. George Vaughan MD Status:RE G SDC Y Race: C Location: [place] [address] Anesthesia Postop Eval I Sum Postop Eval Completion status Anesthesia document: Postop Eval 1 completed: Yes Anesthesia Postop Eval I Summary Anesthesia Postop Eval I Summary: Anesthesia Postop Eval I: Assessment Summary Airway patent Yes 01/10/25 15:21 CELL [email or web address].MDOT Spontaneous unlabored Yes 01/10/25 15:21 CELL OPERATOR.MDOT respirations Mental status Awake,Calm 01/10/25 15:21 CELL [email or web address].MDOT nausea No 01/10/25 15:21 CELL OPERATOR.MDOT Vomiting No 01/10/25 15:21 CELL [email or web address].MDOT Anesthesia Postop Eval I: Fluid Summary Crystalloid volume administer 100 01/10/25 15:21 CELL OPERATOR.MDOT (ml) Colloids volume administered ( ml) Blood Product volume administered (ml) Total IV fluid infused 100 01/10/25 15:21 CELL [email or web address].MDOT Anesthesia Postop Eval I: Summary Notes Anesthesia Complication No 01/10/25 15:21 CELL [email or web address].MDOT Anesthesia Complication Comment: Post-operative progress note Anesthesia: Postop Eval II Evaluation Mental status: Awake and Calm Pain Level: 0 nausea: No Vomiting: No Complications Anesthesia Complication: No 01/10/25 1528 <Electronically signed by Scott Cornejo CRNA> Date _ Scott Cornejo CRNA Cosigner Signature: Date CC: ~ Signed [facility] Work Phone: Discharge summary Author Ninisascha Brown [facility] April 18, 2023 3:24pm Note Date/Time April 18, 2023 3:12pm [facility] Medical Records Department [address] [place] [address] Discharge Summary 04/18/23 1511 MR#: [id number] Acct: [id number] Name: RONY MONZON Rep #:[id number] : 1940 82 From: Nini Brown MD PCP: Dr. George Vaughan MD Status:AD M IN [facility] Prov[facility] Date of Admission: 04/16/23 Date of Discharge: 04/18/23 Primary Care Physician: Dr. George Vaughan MD Reason For Visit: CHEST PAIN Diagnosis Discharge Diagnosis (1) Chest pain: Status: Acute Code(s): R07.9 - Chest pain, unspecified Plan #Chest pain' * troponins were negative x 3. He had a stress test in May 2022 which was negative. * EKG showed no acute ST changes * will do stress test in light of history of heart disease. Couldnt do stress test today. Will do tomorrow * #Debility due to mechanical fall * PT/OT on board. Fall precautions. * propranolol held due to concern for orthostatic symptoms. * #Hypertension: on amlodipine and lisinopril #Hyperlipidemia: on statin #CAD s/p stents: on plavix and high intensity statin DVT Prophylaxis: on lovenox Medications at Discharge Home Medications fluoxetine 40 mg capsule (Prozac) 40 mg PO DAILY 07/04/18 acetaminophen 500 mg tablet (Tylenol Extra Strength) 500 mg PO Q6H PRN Pain 06/17/20 amlodipine 5 mg tablet 5 mg PO BID 03/17/21 multivitamin 1 tab PO DAILY 02/08/22 tizanidine 4 mg capsule 4 mg PO BID PRN muscle spasticity 02/08/22 clopidogrel 75 mg tablet 75 mg PO DAILY 05/05/22 nitroglycerin 0.4 mg sublingual tablet 0.4 mg sublingual Q5-15M PRN chest pain #25 tabs 05/26/22 rosuvastatin 10 mg tablet 10 mg PO QHS #90 tabs 11/24/22 lisinopril 10 mg tablet See Rx Instructions .Route .COMPLEX #180 tabs 03/02/23 oxycodone 5 mg tablet 5 mg PO Q6H PRN pain 04/16/23 propranolol 20 mg tablet 30 mg PO BID 04/16/23 Hospital Course Operations None Procedures Stress test Summary of Care Provided Minutes Spent on Discharge: 45 Hospital Course: Patient is an 82-year-old male with a past medical history as outlined was admitted through the ED 04/16/2023 with a complaint of back pain and chest pain. He says the pain radiated from his chest to his back. It persisted between hisshoulder blades. He had also had a recent fall. He did have a history of CAD and had had 1 stent placed in 2010 and also had had a recent stress test in May 2022. He was admitted and managed for chest pain to rule out ACS. Troponins x 3 were negative and EKG showed no acute ST changes. He had a stress test on 04/18/2024 which showed no evidence of ischemia. He remained stable and was discharged home on 04/18/2023. He is to follow up with his PCP within 1-2 weeks. Patient seen and examined prior to discharge. He had no active complaints. Review of systems is otherwise negative. Labs and vitals reviewed. Home meds reviewed and reconciled. Physical Exam Const alert, oriented x3 and no apparent distress General Appearance: cooperative, comfortable, well kempt and well developed HEENT normocephalic, head/scalp atraumatic, hearing grossly normal bilaterally, moist oral mucous membranes and oropharynx normal Mouth: oral and palatal mucosa normal Eyes PERRL and EOMs intact bilaterally Neck no lymphadenopathy and supple Lymph Lymphatic: no lymphadenopathy noted Resp normal respiratory effort, normal air movement, no retractions and clear to auscultation bilaterally Cardio regular rate, regular rhythm, S1 normal heart sound, S2 normal heart sound and no murmurs GI normal to inspection, nondistended, normoactive bowel sounds, soft to palpation,non-tender and non-distended Extremity normal capillary refill, no clubbing, cyanosis or edema and no calf tenderness General Extremity: no tenderness to palpation of joints or extremities Skin no rashes or lesions noted General Skin Exam: no breakdown Neuro oriented x3, CN's II-XII intact bilaterally, moves all extremities, no focal motor deficits, no sensory deficits noted and deep tendon reflexes 2+ bilaterally Motor Exam: strength 5/5 throughout Psych thought process normal, cooperative and affect normal Appearance: appropriate Weight / BMI Weight Weight: 204 lb 2.369 oz Body Mass Index (BMI) 26.9 ABG / Lab / Microbiology Data 04/18/23 06:37 04/18/23 06:37 Laboratory: Laboratory Results - last 24 hr 04/18/23 06:37: WBC 7.8, RBC 3.62 L, Hgb 11.0 L, Hct 34.3 L, MCV 94.8 H, MCH 30.4, MCHC 32.1, RDW Std Deviation 44.1 H, RDW Coeff of Guido 12.5, Plt Count 346,MPV 10.0, Immature Gran % (Auto) 0.300, Neut % (Auto) 71.2 H, Lymph % (Auto) 14.3 L, [place] % (Auto) 9.8, Eos % (Auto) 3.5, Baso % (Auto) 0.9, Absolute Neuts (auto) 5.5, Absolute Lymphs (auto) 1.11, Nucleated RBC % 0, Sodium 135 L, Potassium 3.8, Chloride 104, Carbon Dioxide 29.0, Anion Gap 2 L, BUN 15, Creatinine 0.99, Estim Creat Clear Calc 66.13, Est GFR (MDRD) Af Amer 93, Est GFR (MDRD) Non-Af 77, BUN/Creatinine Ratio 15.1, Glucose 122 H, Calcium 8.9 D/C Instructions Discharge Diet: Low fat / Low cholesterol Discharge Activity: Return to Normal Activity Weight Bearing Status: Weight bearing as tolerated Call your doctor if you observe: Fever of 101 or Higher, Shortness of breath, Dizziness, Swelling in the ankles, Chest pain and Increased palpitations (irregular heartbeat) Meaningful Use Info Meaningful Use Diagnoses (Choose all that apply): None applicable Discharge Plan Admission Admit Date/Time: 04/16/23 14:47 Primary Reason for Your Visit: chest pain Attending Provider: Nini Brown Primary Care Provider: George Vaughan Consulting Providers: Juan Pike Discharge Orders/Prescriptions Prescriptions: Continued fluoxetine [Prozac] 40 mg capsule 40 mg PO DAILY Hold Instructions: until done with Zyvox Patient Comments: not taking while taking antibiotic linezolid acetaminophen [Tylenol Extra Strength] 500 mg tablet 500 mg PO Q6H PRN (Reason: Pain) tizanidine 4 mg capsule 4 mg PO BID PRN (Reason: muscle spasticity) nitroglycerin 0.4 mg tablet, sublingual 0.4 mg SUBLINGUAL Q5-15M PRN (Reason: chest pain) Qty: 25 1RF Rx Instructions: do not exceed 3 doses per episode multivitamin Tablet 1 tab PO DAILY oxycodone 5 mg tablet 5 mg PO Q6H PRN (Reason: pain) Patient Comments: TAKE 1 TO 2 TABLET BY MOUTH EVERY SIX HOURS NEEDED FOR PAIN propranolol 20 mg tablet 30 mg PO BID amlodipine 5 mg tablet 5 mg PO BID clopidogrel 75 mg tablet 75 mg PO DAILY rosuvastatin 10 mg tablet 10 mg PO QHS Qty: 90 3RF lisinopril 10 mg tablet See Rx Instructions .ROUTE .COMPLEX Qty: 180 3RF Dose Instruction: TAKE 1 TABLET BY MOUTH TWICE A DAY Rx Instructions: TAKE 1 TABLET BY MOUTH TWICE A DAY Referrals / Follow Up: George Vaughan MD [Primary Care Provider] - Within 1 Week Disposition Disposition (needs filled in before D/C Order can be placed): Home, Self Care Charges/Coding Visit Charges Inpatient E&M: 36433 Disch Hosp >30min 04/18/231523 <Electronically signed by Nini Brown MD> Cosigner Signature (if applicable): CC: Dr. George Vaughan MD; Dr. Nini Brown MD~ Signed [facility] Work Phone: Discharge summary Author Nini [facility] April 18, 2023 3:25pm Note Date/Time April 18, 2023 3:25pm [facility] Health System Medical Records Department [address] [place] [id number] Instructions for Home/Discharge Instructions 04/18/23 1524 MR#: [id number] Acct: [id number] Name: RONY MONZON Rep #:[id number] : 1940 82 From: Nini Brown MD PCP: Dr. George Vaughan MD Status:AD M IN Discharge Instructions Diet Discharge Diet: Low fat / Low cholesterol Activity Discharge Activity: Return to Normal Activity Weight Bearing Status: Weight bearing as tolerated Dressing / Incision Call your doctor if you observe: Fever of 101 or Higher, Shortness of breath, Dizziness, Swelling in the ankles, Chest pain and Increased palpitations (irregular heartbeat) Follow Up Care Test Results: Test results from this visit will be discussed in further detail at your follow- up appointment, if applicable. Discharge Plan Admission Admit Date/Time: 04/16/23 14:47 Primary Reason for Your Visit: chest pain Attending Provider: Nini Brown Primary Care Provider: George Vaughan Consulting Providers: Juan Pike Discharge Orders/Prescriptions Prescriptions: Continued fluoxetine [Prozac] 40 mg capsule 40 mg PO DAILY Hold Instructions: until done with Zyvox Patient Comments: not taking while taking antibiotic linezolid acetaminophen [Tylenol Extra Strength] 500 mg tablet 500 mg PO Q6H PRN (Reason: Pain) tizanidine 4 mg capsule 4 mg PO BID PRN (Reason: muscle spasticity) nitroglycerin 0.4 mg tablet, sublingual 0.4 mg SUBLINGUAL Q5-15M PRN (Reason: chest pain) Qty: 25 1RF Rx Instructions: do not exceed 3 doses per episode multivitamin Tablet 1 tab PO DAILY oxycodone 5 mg tablet 5 mg PO Q6H PRN (Reason: pain) Patient Comments: TAKE 1 TO 2 TABLET BY MOUTH EVERY SIX HOURS NEEDED FOR PAIN propranolol 20 mg tablet 30 mg PO BID amlodipine 5 mg tablet 5 mg PO BID clopidogrel 75 mg tablet 75 mg PO DAILY rosuvastatin 10 mg tablet 10 mg PO QHS Qty: 90 3RF lisinopril 10 mg tablet See Rx Instructions .ROUTE .COMPLEX Qty: 180 3RF Dose Instruction: TAKE 1 TABLET BY MOUTH TWICE A DAY Rx Instructions: TAKE 1 TABLET BY MOUTH TWICE A DAY Referrals / Follow Up: George Vaughan MD [Primary Care Provider] - Within 1 Week Disposition Disposition (needs filled in before D/C Order can be placed): Home, Self Care 04/18/23 [id number]<Electronically signed by Nini Brown MD>Nini Brown MD CC: Dr. Juan Pike MD; Dr. George Vaughan MD ~ Signed [facility] Work Phone: Discharge summary Author Nawaf Leblanc [facility] Note Date/Time July 29, 2024 2:1 7pm [facility] Health System Medical Records Department [address] [place] [address] Discharge Summary 07/29/24 1413 MR#: [id number] Acct: [id number] Name: RONY MONZON Rep #:[id number] : 1940 84 From: Nawaf Leblanc DO PCP: Dr. George Vaughan MD Status:AD M [facility] Location: [place] [address] Providers Date of Admission: 07/28/24 Primary Care Physician: Dr. George Vaughan MD Reason For Visit: CHEST PAIN Diagnosis Discharge Diagnosis (1) Chest pain: Status: Acute Code(s): R07.9 - Chest pain, unspecified Plan: stress test negative. likely 2/2 costochondritis from recent URI. No additional work up. DC home. DW patient's spouse at bedside. Medications at Discharge Home Medications fluoxetine 40 mg capsule (Prozac) 40 mg PO DAILY 07/04/18 acetaminophen 500 mg tablet (Tylenol Extra Strength) 500 mg PO Q6H PRN Pain 06/17/20 amlodipine 5 mg tablet 5 mg PO BID 03/17/21 multivitamin 1 tab PO DAILY 02/08/22 clopidogrel 75 mg tablet 75 mg PO DAILY 05/05/22 nitroglycerin 0.4 mg sublingual tablet 0.4 mg sublingual Q5-15M PRN chest pain #25 tabs 05/26/22 rosuvastatin 10 mg tablet 10 mg PO QHS #90 tabs 11/24/22 oxycodone 5 mg tablet 5 mg PO Q6H PRN pain 04/16/23 propranolol 20 mg tablet 30 mg PO BID 04/16/23 lisinopril 10 mg tablet 10 mg PO BID #180 TABLETS 04/11/24 Hospital Course Operations None Procedures Stress test Weight / BMI Weight Weight: 97.522 kg Body Mass Index (BMI) 28.3 ABG / Lab / Microbiology Data 07/29/24 05:04 07/29/24 05:04 Laboratory: Laboratory Results - last 24 hr 07/28/24 15:47: Troponin T Hi Sens 4Hr 23 H 07/29/24 05:04: WBC 9.4, RBC 3.84 L, Hgb 12.0 L, Hct 35.8 L, MCV 93.2, MCH 31.3,MCHC 33.5, RDW Std Deviation 44.1 H, RDW Coeff of Guido 12.9, Plt Count 319, MPV 9.9, Immature Gran % (Auto) 0.300, Neut % (Auto) 69.4, Lymph % (Auto) 14.7 L, [place] % (Auto) 9.9, Eos % (Auto) 4.7, Baso % (Auto) 1.0, Absolute Neuts (auto) 6.5, Absolute Lymphs (auto) 1.38, Nucleated RBC % 0, Sodium 137, Potassium 4.1, Chloride 103, Carbon Dioxide 24.4, Anion Gap 10, BUN 12, Creatinine 0.98, Estim Creat Clear Calc 70.24, Est GFR (MDRD) Non-Af 77, BUN/Creatinine Ratio 12.4, Glucose 100 H, Calcium 9.1 Microbiology: Microbiology 07/28/24 10:37 Mucosa - Nose SARS-CoV-2, Influenza & RSV (PCR) - Final D/C Instructions Discharge Diet: Low fat / Low cholesterol DC O2, CPAP, BIPAP Needs Home O2 Discharge instructions: No Meaningful Use Info Meaningful Use Meaningful Use Diagnoses (Choose all that apply): None applicable Ischemic Stroke Statin Dosing Therapy Reference: STATIN DOSE THERAPY REFERENCE: * Patients > 75 years receive moderate or high dose statin therapy. * Patients 75 years or YOUNGER should receive HIGH intensity statin dose unless contraindicated. You will be required to document reason for non-treatment if statin daily dose does not meet guidelines. HIGH DOSE STATIN THERAPY DAILY Atorvastatin > than or = to 40 mg Rosuvastatin > than or = to 20 mg Amlodipine + Atorvastatin > than or = to 2.5/40 mg Ezetimibe + Simvastatin 10/80 mg Simvastatin 80mg Discharge Plan Admission Admit Date/Time: 07/28/24 12:10 Primary Reason for Your Visit: chest pain. Attending Provider: Nawaf Leblanc Primary Care Provider: George Vaughan Consulting Providers: Nini Brown Instructions Additional Instructions / Restrictions: Your stress test was negative (normal). Your chest pain may have been due to your chest wall (pulled muscle, slight displaced rib). No additional testing is needed at this time. Discharge Orders/Prescriptions Prescriptions: Continued fluoxetine [Prozac] 40 mg capsule 40 mg PO DAILY Patient Comments: not taking while taking antibiotic linezolid acetaminophen [Tylenol Extra Strength] 500 mg tablet 500 mg PO Q6H PRN (Reason: Pain) nitroglycerin 0.4 mg tablet, sublingual 0.4 mg SUBLINGUAL Q5-15M PRN (Reason: chest pain) Qty: 25 1RF Rx Instructions: do not exceed 3 doses per episode multivitamin Tablet 1 tab PO DAILY oxycodone 5 mg tablet 5 mg PO Q6H PRN (Reason: pain) Patient Comments: TAKE 1 TO 2 TABLET BY MOUTH EVERY SIX HOURS NEEDED FOR PAIN propranolol 20 mg tablet 30 mg PO BID amlodipine 5 mg tablet 5 mg PO BID clopidogrel 75 mg tablet 75 mg PO DAILY rosuvastatin 10 mg tablet 10 mg PO QHS Qty: 90 3RF lisinopril 10 mg tablet 10 mg PO BID Qty: 180 3RF Referrals / Follow Up: George Vaughan MD [Primary Care Provider] - Within 1 Month Disposition Disposition (needs filled in before D/C Order can be placed): Home, Self Care Charges/Coding Visit Charges Inpatient E&M: 69282 Disch Hosp 07/29/24 1417 <Electronically signed by Nawaf Leblanc DO> Cosigner Signature (if applicable): CC: Dr. Nawaf Leblanc DO; Dr. 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 and other lower urinary tract symptoms (LUTS) [facility] Diagnosis Essential hypertension, benign- Primary Hyperlipidemia, mixed Mixed hyperlipidemia WILY (generalized anxiety disorder) Generalized anxiety disorder Depression, unspecified depression type Frequent falls Personal history of fall Vasovagal syncope Syncope and collapse Anemia, unspecified type Cervicalgia REHAN on CPAP Obstructive sleep apnea (adult) (pediatric) Chronic neck pain Cervicalgia Spinal stenosis of lumbar region, unspecified whether neurogenic 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 present 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 and other lower urinary tract symptoms (LUTS) Elevated glucose Other abnormal glucose [facility] Diagnosis Spinal stenosis of cervical region Spinal stenosis in cervical region [facility] Diagnosis Frequent falls Personal history of fall Tremor of right hand Headaches [facility] Diagnosis Cerebrovascular accident (CVA), unspecified mechanism (HCC)- Primary Lightheadedness Dizziness and giddiness Cerebral infarction, unspecified mechanism (HCC) documented [facility] Diagnosis Essential tremor- Primary Essential and other specified forms of tremor [facility] Diagnosis Lightheadedness- Primary Dizziness and giddiness documented [facility] Diagnosis COVID-19- Primary [facility] Diagnosis Cerebral infarction, unspecified mechanism (HCC) [facility] Diagnosis Onset Date Resolution Status Atherosclerotic heart diseas e of [place] coronary artery without angina pectoris chronic Essential hypertension chron ic Pure hypercholesterolemia [facility] Work Phone: Evaluation note* Diagnosis Transient cerebral ischemia, unspecified type- Primary [facility] Diagnosis Headaches- Primary Frequent falls Personal history of fall Spinal stenosis of cervical region Spinal stenosis in cervical region Spinal stenosis of lumbar region, unspecified whether neurogenic 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 present Lightheadedness Dizziness and giddiness 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 Tremor of right hand Cerebrovascular accident (CVA), unspecified mechanism (HCC) [facility] Diagnosis Transient cerebral ischemia, unspecified type [facility] Diagnosis Onset Date Resolution Status Atherosclerotic heart diseas e of [place] coronary artery without angina pectoris chronic Essential hypertension chron ic Pure hypercholesterolemia [facility] Atherosclerotic heart diseas e of [place] coronary artery without angina pectoris chronic Dyspnea chronic Essential hypertension chron ic Pure hypercholesterolemia [facility] Work Phone: Evaluation note* Diagnosis Essential hypertension, benign Coronary artery disease involving [place] heart without angina pectoris, unspecified vessel or lesion type [facility] Diagnosis Depression, unspecified depression type- Primary Essential hypertension, benign Hyperlipidemia, mixed Mixed hyperlipidemia Coronary artery disease involving [place] coronary artery of [place] heart without angina pectoris Gait instability Abnormality of gait Impaired fasting glucose [facility] Onset Date Resolution Status Atherosclerotic heart diseas e of [place] coronary artery without angina pectoris chronic Dyspnea chronic Essential hypertension chron ic Pure hypercholesterolemia ch ronic [facility] Work Phone: Evaluation noteNo assessment information available [facility] Work Phone: Evaluation note* Diagnosis Ingrown nail Ingrowing nail Nail fungus Dermatophytosis of nail [facility] Diagnosis Headaches- Primary Frequent falls Personal history of fall Spinal stenosis of cervical region Spinal stenosis in cervical region Spinal stenosis of lumbar region, unspecified whether neurogenic 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 present 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 Lightheadedness Dizziness and giddiness Tremor of right hand Cerebrovascular accident (CVA), unspecified mechanism (HCC) [facility] Diagnosis History of total right hip arthroplasty- Primary [facility] Diagnosis Depression, unspecified depression type [facility] Diagnosis Urinary frequency- Primary Dysuria [facility] Tremor of right hand [facility] Diagnosis Onset Date Resolution Status Chest pain acute [facility] Work Phone: Evaluation note* Diagnosis Calculus of gallbladder without cholecystitis without obstruction- Primary Calculus of gallbladder without mention of cholecystitis or obstruction [facility] Diagnosis Closed nondisplaced fracture of fifth metatarsal bone of left foot, initial encounter- Primary Foot pain, left Pain in limb Pain of toe of left foot Pain in limb [facility] Diagnosis History of total right hip arthroplasty [facility] Diagnosis Closed nondisplaced fracture of fifth metatarsal bone of left foot, initial encounter- Primary Pain of left calf Pain in limb [facility] Diagnosis Closed nondisplaced fracture of fifth metatarsal bone of left foot, initial encounter [facility] Diagnosis Closed nondisplaced fracture of fifth metatarsal bone of left foot, initial encounter- Primary [facility] Diagnosis Tremor of right hand- Primary Frequent falls Personal history of fall Spinal stenosis of cervical region Spinal stenosis in cervical region Spinal stenosis of lumbar region, unspecified whether neurogenic 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 present Lightheadedness Dizziness and giddiness Cerebrovascular accident (CVA), unspecified mechanism (HCC) Headaches Orthostatic hypotension 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 [facility]* Diagnosis Essential hypertension, benign- Primary Hyperlipidemia, mixed Mixed hyperlipidemia Impaired fasting glucose Actinic keratosis Tremor Abnormal involuntary movements [facility] Diagnosis Preoperative testing- Primary Preoperative examination, unspecified Tremor Abnormal involuntary movements Vasovagal syncope Syncope and collapse REHAN on CPAP Obstructive sleep apnea (adult) (pediatric) Coronary artery disease involving [place] heart without angina pectoris, unspecified vessel or lesion type Gastroesophageal reflux disease, esophagitis presence not specified CKD (chronic kidney disease) Stage 3, GFR 30-59 ml/min Chronic kidney disease, Stage III (moderate) Hyperlipidemia, mixed Mixed hyperlipidemia Essential hypertension, benign Primary osteoarthritis of right hip Primary localized osteoarthrosis, pelvic region and thigh Anemia, unspecified type Impaired fasting glucose Lightheaded- Primary Dizziness and giddiness Orthostatic hypotension Recurrent falls Personal history of fall Weakness of both lower extremities 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 Spinal stenosis of cervical region Spinal stenosis in cervical region Spinal stenosis of lumbar region, unspecified whether neurogenic 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 present History of stroke Transient ischemic attack (TIA), and cerebral infarction without residual deficits Headaches [facility] Diagnosis Preoperative testing- Primary Preoperative examination, unspecified Tremor Abnormal involuntary movements Vasovagal syncope Syncope and collapse REHAN on CPAP Obstructive sleep apnea (adult) (pediatric) Coronary artery disease involving [place] heart without angina pectoris, unspecified vessel or lesion type Gastroesophageal reflux disease, esophagitis presence not specified CKD (chronic kidney disease) Stage 3, GFR 30-59 ml/min Chronic kidney disease, Stage III (moderate) Hyperlipidemia, mixed Mixed hyperlipidemia Essential hypertension, benign Primary osteoarthritis of right hip Primary localized osteoarthrosis, pelvic region and thigh Anemia, unspecified type Impaired fasting glucose Foot pain, left Pain in limb Pain of toe of left foot Pain in limb [facility] Preoperative testing- Primary Preoperative examination, unspecified Tremor Abnormal involuntary movements Vasovagal syncope Syncope and collapse REHAN on CPAP Obstructive sleep apnea (adult) (pediatric) Coronary artery disease involving [place] heart without angina pectoris, unspecified vessel or lesion type Gastroesophageal reflux disease, esophagitis presence not specified CKD (chronic kidney disease) Stage 3, GFR 30-59 ml/min Chronic kidney disease, Stage III (moderate) Hyperlipidemia, mixed Mixed hyperlipidemia Essential hypertension, benign Primary osteoarthritis of right hip Primary localized osteoarthrosis, pelvic region and thigh Anemia, unspecified type Impaired fasting glucose Cough [facility] Diagnosis Preoperative testing- Primary Preoperative examination, unspecified Tremor Abnormal involuntary movements Vasovagal syncope Syncope and collapse REHAN on CPAP Obstructive sleep apnea (adult) (pediatric) Coronary artery disease involving [place] heart without angina pectoris, unspecified vessel or lesion type Gastroesophageal reflux disease, esophagitis presence not specified CKD (chronic kidney disease) Stage 3, GFR 30-59 ml/min Chronic kidney disease, Stage III (moderate) Hyperlipidemia, mixed Mixed hyperlipidemia Essential hypertension, benign Primary osteoarthritis of right hip Primary localized osteoarthrosis, pelvic region and thigh Anemia, unspecified type Impaired fasting glucose Depression, unspecified depression type [facility]* Diagnosis Preoperative testing- Primary Preoperative examination, unspecified Tremor Abnormal involuntary movements Vasovagal syncope Syncope and collapse REHAN on CPAP Obstructive sleep apnea (adult) (pediatric) Coronary artery disease involving [place] heart without angina pectoris, unspecified vessel or lesion type Gastroesophageal reflux disease, esophagitis presence not specified CKD (chronic kidney disease) Stage 3, GFR 30-59 ml/min Chronic kidney disease, Stage III (moderate) Hyperlipidemia, mixed Mixed hyperlipidemia Essential hypertension, benign Primary osteoarthritis of right hip Primary localized osteoarthrosis, pelvic region and thigh Anemia, unspecified type Impaired fasting glucose Malaise and fatigue- Primary Other malaise and fatigue Lightheaded Dizziness and giddiness Recurrent falls Personal history of fall Orthostatic hypotension Weakness of both lower extremities Low vitamin D level Vitamin D deficiency, unspecified [facility]* Diagnosis Preoperative testing- Primary Preoperative examination, unspecified Tremor Abnormal involuntary movements Vasovagal syncope Syncope and collapse REHAN on CPAP Obstructive sleep apnea (adult) (pediatric) Coronary artery disease involving [place] heart without angina pectoris, unspecified vessel or lesion type Gastroesophageal reflux disease, esophagitis presence not specified CKD (chronic kidney disease) Stage 3, GFR 30-59 ml/min Chronic kidney disease, Stage III (moderate) Hyperlipidemia, mixed Mixed hyperlipidemia Essential hypertension, benign Primary osteoarthritis of right hip Primary localized osteoarthrosis, pelvic region and thigh Anemia, unspecified type Impaired fasting glucose Abrasion of left ear canal, initial encounter- Primary documented [facility]* Diagnosis Preoperative testing- Primary Preoperative examination, unspecified Tremor Abnormal involuntary movements Vasovagal syncope Syncope and collapse REHAN on CPAP Obstructive sleep apnea (adult) (pediatric) Coronary artery disease involving [place] heart without angina pectoris, unspecified vessel or lesion type Gastroesophageal reflux disease, esophagitis presence not specified CKD (chronic kidney disease) Stage 3, GFR 30-59 ml/min Chronic kidney disease, Stage III (moderate) Hyperlipidemia, mixed Mixed hyperlipidemia Essential hypertension, benign Primary osteoarthritis of right hip Primary localized osteoarthrosis, pelvic region and thigh Anemia, unspecified type Impaired fasting glucose Essential hypertension, benign documented [facility]* Diagnosis Preoperative testing- Primary Preoperative examination, unspecified Tremor Abnormal involuntary movements Vasovagal syncope Syncope and collapse REHAN on CPAP Obstructive sleep apnea (adult) (pediatric) Coronary artery disease involving [place] heart without angina pectoris, unspecified vessel or lesion type Gastroesophageal reflux disease, esophagitis presence not specified CKD (chronic kidney disease) Stage 3, GFR 30-59 ml/min Chronic kidney disease, Stage III (moderate) Hyperlipidemia, mixed Mixed hyperlipidemia Essential hypertension, benign Primary osteoarthritis of right hip Primary localized osteoarthrosis, pelvic region and thigh Anemia, unspecified type Impaired fasting glucose Essential hypertension, benign- Primary Hyperlipidemia, mixed Mixed hyperlipidemia Impaired fasting glucose Coronary artery disease involving [place] heart without angina pectoris, unspecified vessel or lesion type Depression, unspecified depression type Tremor Abnormal involuntary movements Thoracic back pain, unspecified back pain laterality, unspecified chronicity Cervicalgia Cervical spondylosis Cervical spondylosis without myelopathy Lumbar radiculopathy Thoracic or lumbosacral neuritis or radiculitis, unspecified 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 Generalized weakness Other malaise and fatigue Balance disorder Other symptoms involving nervous and musculoskeletal systems documented [facility] this [facility]* Diagnosis Preoperative testing- Primary Preoperative examination, unspecified Tremor Abnormal involuntary movements Vasovagal syncope Syncope and collapse REHAN on CPAP Obstructive sleep apnea (adult) (pediatric) Coronary artery disease involving [place] heart without angina pectoris, unspecified vessel or lesion type Gastroesophageal reflux disease, esophagitis presence not specified CKD (chronic kidney disease) Stage 3, GFR 30-59 ml/min Chronic kidney disease, Stage III (moderate) Hyperlipidemia, mixed Mixed hyperlipidemia Essential hypertension, benign Primary osteoarthritis of right hip Primary localized osteoarthrosis, pelvic region and thigh Anemia, unspecified type Impaired fasting glucose Malaise and fatigue- Primary Other malaise and fatigue Lightheaded Dizziness and giddiness Recurrent falls Personal history of fall Orthostatic hypotension Weakness of both lower extremities History of stroke Transient ischemic attack (TIA), and cerebral infarction without residual deficits Spinal stenosis of cervical region Spinal stenosis in cervical region [facility] Diagnosis Preoperative testing- Primary Preoperative examination, unspecified Tremor Abnormal involuntary movements Vasovagal syncope Syncope and collapse REHAN on CPAP Obstructive sleep apnea (adult) (pediatric) Coronary artery disease involving [place] heart without angina pectoris, unspecified vessel or lesion type Gastroesophageal reflux disease, esophagitis presence not specified CKD (chronic kidney disease) Stage 3, GFR 30-59 ml/min Chronic kidney disease, Stage III (moderate) Hyperlipidemia, mixed Mixed hyperlipidemia Essential hypertension, benign Primary osteoarthritis of right hip Primary localized osteoarthrosis, pelvic region and thigh Anemia, unspecified type Impaired fasting glucose Orthostatic hypotension- Primary [facility] Diagnosis Preoperative testing- Primary Preoperative examination, unspecified Tremor Abnormal involuntary movements Vasovagal syncope Syncope and collapse REHAN on CPAP Obstructive sleep apnea (adult) (pediatric) Coronary artery disease involving [place] heart without angina pectoris, unspecified vessel or lesion type Gastroesophageal reflux disease, esophagitis presence not specified CKD (chronic kidney disease) Stage 3, GFR 30-59 ml/min Chronic kidney disease, Stage III (moderate) Hyperlipidemia, mixed Mixed hyperlipidemia Essential hypertension, benign Primary osteoarthritis of right hip Primary localized osteoarthrosis, pelvic region and thigh Anemia, unspecified type Impaired fasting glucose Umbilical hernia without obstruction and without gangrene- Primary Umbilical hernia without obstruction and without gangrene [facility]* Diagnosis Preoperative testing- Primary Preoperative examination, unspecified Tremor Abnormal involuntary movements Vasovagal syncope Syncope and collapse REHAN on CPAP Obstructive sleep apnea (adult) (pediatric) Coronary artery disease involving [place] heart without angina pectoris, unspecified vessel or lesion type Gastroesophageal reflux disease, esophagitis presence not specified CKD (chronic kidney disease) Stage 3, GFR 30-59 ml/min Chronic kidney disease, Stage III (moderate) Hyperlipidemia, mixed Mixed hyperlipidemia Essential hypertension, benign Primary osteoarthritis of right hip Primary localized osteoarthrosis, pelvic region and thigh Anemia, unspecified type Impaired fasting glucose History of total right hip arthroplasty Umbilical hernia without obstruction and without gangrene [facility]* Diagnosis Onset Date Resolution Status Admit Date History of anemia acute November 292024 7:51am History of CAD (coronary art placido disease) acute November 29, 2024 7:51am Angina pectoris chronic November 7:51am [facility] Work Phone: Evaluation note* Diagnosis Preoperative testing- Primary Preoperative examination, unspecified Tremor Abnormal involuntary movements Vasovagal syncope Syncope and collapse REHAN on CPAP Obstructive sleep apnea (adult) (pediatric) Coronary artery disease involving [place] heart without angina pectoris, unspecified vessel or lesion type Gastroesophageal reflux disease, esophagitis presence not specified CKD (chronic kidney disease) Stage 3, GFR 30-59 ml/min Chronic kidney disease, Stage III (moderate) Hyperlipidemia, mixed Mixed hyperlipidemia Essential hypertension, benign Primary osteoarthritis of right hip Primary localized osteoarthrosis, pelvic region and thigh Anemia, unspecified type Impaired fasting glucose Pre-operative examination- Primary Preoperative examination, unspecified Coronary artery disease involving [place] coronary artery of [place] heart without angina pectoris Essential hypertension, benign Hyperlipidemia, mixed Mixed hyperlipidemia REHAN on CPAP Obstructive sleep apnea (adult) (pediatric) Gastroesophageal reflux disease, unspecified whether esophagitis present 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 and other lower urinary tract symptoms (LUTS) Nontoxic multinodular goiter Anemia, unspecified type Impaired fasting glucose Cervical spondylosis Cervical spondylosis without myelopathy Depression, unspecified depression type History of total right hip arthroplasty Orthostatic hypotension SOB (shortness of breath) on exertion Shortness of breath History of CVA in adulthood Umbilical hernia without obstruction and without gangrene * Assessment & Plan Note - Sindy Denise, [employer] - 11/29/2024 10:37 AM EDT Associated Problem(s): History of CVA in adulthood Assessment: no residual deficits per and pt, although pt has significant gait abnormality/LE weakness ambulating, following neurology Office Visit on 08/21/2024 * Assessment & Plan Note - Sindy Denise APRN.CNP - 11/29/2024 10:35 AM EDT Associated Problem(s): SOB (shortness of breath) on exertion Assessment: chronic, unchanged per and pt, recent stress test earlier this normal, records requested * Assessment & Plan Note - Sindy Denise APRN.CNP - 11/29/2024 10:34 AM EDT Associated Problem(s): Orthostatic hypotension Assessment: PCP and cardiology working on adjusting meds, had f/u cardiology appt today, records requested * Assessment & Plan Note - Sindy Denise APRN.CNP - 11/29/2024 10:34 AM EDT Associated Problem(s): History of total right hip arthroplasty Assessment: hx * Assessment & Plan Note - Sindy Denise APRN.CNP - 11/29/2024 10:33 AM EDT Associated Problem(s): Depression Assessment: stable on rx per pt * Assessment & Plan Note - Sindy Denise APRN.CNP - 11/29/2024 10:33 AM EDT Associated Problem(s): Cervical spondylosis Assessment: limited CROM * Assessment & Plan Note - Sindy Denise APRN.CNP - 11/29/2024 10:33 AM EDT Associated Problem(s): Impaired fasting glucose Assessment: diet controlled Hemoglobin A1C (%) Date Value 08/23/2024 5.7 10/21/2019 5.8 * Assessment & Plan Note - Sindy Denise APRN.CNP - 11/29/2024 10:32 AM EDT Associated Problem(s): Anemia Assessment: hx Hemoglobin (g/dL) Date Value 08/23/2024 12.7 04/23/2021 11.7 Hematocrit (%) Date Value 08/23/2024 38.4 04/23/2021 35.6 WBC (k/uL) Date Value 08/23/2024 8.98 04/23/2021 8.08 * Assessment & Plan Note - Sindy Denise APRN.CNP - 11/29/2024 10:30 AM EDT Associated Problem(s): Nontoxic multinodular goiter Assessment: reports intermittent dysphagia, 2021 thyroid nodule seen on CTA neck 2.4cm * Assessment & Plan Note - Sindy Denise APRN.CNP - 11/29/2024 10:27 AM EDT Associated Problem(s): Hypertrophy of prostate with urinary obstruction Assessment: s/p TURP * Assessment & Plan Note - Sindy Denise APRN.CNP - 11/29/2024 10:26 AM EDT Associated Problem(s): Esophageal reflux Assessment: otc rx as needed * Assessment & Plan Note - Sindy Denise APRN.CNP - 11/29/2024 10:26 AM EDT Associated Problem(s): REHAN on CPAP Assessment: non-compliant with CPAP * Assessment & Plan Note - Sindy Denise APRN.CNP - 11/29/2024 10:26 AM EDT Associated Problem(s): Hyperlipidemia, mixed Assessment: c/w statin * Assessment & Plan Note - Sindy Denise APRN.CNP - 11/29/2024 10:26 AM EDT Associated Problem(s): Essential hypertension, benign Assessment: controlled on rx Last 14 BP Last 14 Encounter BP Readings: Date: BP: 11/29/2024 138/72 11/19/2024 136/64 08/21/2024 151/85 07/23/2024 128/64 05/16/2024 148/72 04/30/2024 146/81 01/26/2024 136/78 12/30/2023 119/74 10/18/2023 143/83 08/11/2023 123/71 06/02/2023 120/64 05/16/2023 146/82 04/27/2023 142/80 03/01/2023 130/58 * Assessment & Plan Note - Sindy Denise APRN.CNP - 11/29/2024 10:26 AM EDT Associated Problem(s): Coronary artery disease involving [place] coronary artery of [place] heart without angina pectoris Assessment: s/p stent 2010, c/w daily ASA, statin, and BB. Following [facility], reports normal stress earlier this year, records requested View External Cardiology - Miscellaneous Cardiac [ID [id number]] [facility]* Diagnosis Preoperative testing- Primary Preoperative examination, unspecified Tremor Abnormal involuntary movements Vasovagal syncope Syncope and collapse REHAN on CPAP Obstructive sleep apnea (adult) (pediatric) Coronary artery disease involving [place] heart without angina pectoris, unspecified vessel or lesion type Gastroesophageal reflux disease, esophagitis presence not specified CKD (chronic kidney disease) Stage 3, GFR 30-59 ml/min Chronic kidney disease, Stage III (moderate) Hyperlipidemia, mixed Mixed hyperlipidemia Essential hypertension, benign Primary osteoarthritis of right hip Primary localized osteoarthrosis, pelvic region and thigh Anemia, unspecified type Impaired fasting glucose Pre-operative examination- Primary Preoperative examination, unspecified Coronary artery disease involving [place] coronary artery of [place] heart without angina pectoris Essential hypertension, benign Hyperlipidemia, mixed Mixed hyperlipidemia REHAN on CPAP Obstructive sleep apnea (adult) (pediatric) Gastroesophageal reflux disease, unspecified whether esophagitis present 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 and other lower urinary tract symptoms (LUTS) Nontoxic multinodular goiter Anemia, unspecified type Impaired fasting glucose Cervical spondylosis Cervical spondylosis without myelopathy Depression, unspecified depression type History of total right hip arthroplasty Orthostatic hypotension SOB (shortness of breath) on exertion Shortness of breath History of CVA in adulthood Weak urinary stream- Primary Slowing of urinary stream Screening for genitourinary condition Screening for other and unspecified genitourinary condition Umbilical hernia without obstruction and without gangrene documented [facility]* Diagnosis Preoperative testing- Primary Preoperative examination, unspecified Tremor Abnormal involuntary movements Vasovagal syncope Syncope and collapse REHAN on CPAP Obstructive sleep apnea (adult) (pediatric) Coronary artery disease involving [place] heart without angina pectoris, unspecified vessel or lesion type Gastroesophageal reflux disease, esophagitis presence not specified CKD (chronic kidney disease) Stage 3, GFR 30-59 ml/min Chronic kidney disease, Stage III (moderate) Hyperlipidemia, mixed Mixed hyperlipidemia Essential hypertension, benign Primary osteoarthritis of right hip Primary localized osteoarthrosis, pelvic region and thigh Anemia, unspecified type Impaired fasting glucose Pre-operative examination- Primary Preoperative examination, unspecified Coronary artery disease involving [place] coronary artery of [place] heart without angina pectoris Essential hypertension, benign Hyperlipidemia, mixed Mixed hyperlipidemia REHAN on CPAP Obstructive sleep apnea (adult) (pediatric) Gastroesophageal reflux disease, unspecified whether esophagitis present 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 and other lower urinary tract symptoms (LUTS) Nontoxic multinodular goiter Anemia, unspecified type Impaired fasting glucose Cervical spondylosis Cervical spondylosis without myelopathy Depression, unspecified depression type History of total right hip arthroplasty Orthostatic hypotension SOB (shortness of breath) on exertion Shortness of breath History of CVA in adulthood Lightheaded- Primary Dizziness and giddiness Orthostatic hypotension 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 Spinal stenosis of cervical region Spinal stenosis in cervical region Spinal stenosis of lumbar region, unspecified whether neurogenic 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 present History of stroke Transient ischemic attack (TIA), and cerebral infarction without residual deficits Abnormality of gait [facility] Additional Instructions Please follow-up outpatient.[facility] Work Phone: Hospital Discharge instructions Additional Instructions Follow-up with your primary care physician for your chest pain. Follow-up with Dr. Slater for your umbilical hernia. Follow-up with Dr. Seals for your intermittent difficulty swallowing.[facility] Work Phone: Reason for referral (narrative)* Diagnostic Procedure Only (Routine) - Closed Specialty Diagnoses / Procedures Referred By Pablo t Referred To Contact MOLECULAR & FUNCTIONAL IMAGING Diagnoses Calculus of gallbladder without cholecystitis without obstruction Procedures NM HEPATOBILIARY W EF AND/OR RX HEPATOBIL SYST IMAG INC GB W/PHARMA INTERVENJ George Vaughan MD [address] [place] [address] Molecular & Functional Imaging [address] [place] [address] Referral ID Status Reason Start Date Expiration Date V isits Requested Visits Authorized [id number] Closed Auto-Generate d Referral 05/09/2023 06/07/2024 1 1 [facility] for referral (narrative)* Outpatient Procedure (Routine) - Authorized Specialty Diagnoses / Procedures Referred By Pablo davis Referred To Contact [facility] Diagnoses Closed nondisplaced fracture of fifth metatarsal bone of left foot, initial encounter Pain of left calf Procedures US LEG VEIN DVT UNL VAS LAB DUP-SCAN XTR VEINS UNILATERAL/LIMITED STUDY [address] [place] [address] [facility] [address] [place] [address] Referral ID Status Reason Start Date Expiration Date Visits Requested Visits Authorized [id number] Authorized Auto-Generat ed Referral 08/21/2023 08/20/2024 1 1 * Diagnostic Procedure Only (Routine) - Closed Specialty Diagnoses / Procedures Referred By Pablo davis Referred To Contact XR IMAGING Diagnoses Closed nondisplaced fracture of fifth metatarsal bone of left foot, initial encounter Procedures XR FOOT GENERAL 3V AP/LAT/OBL LEFT RADEX FOOT COMPLETE MINIMUM 3 VIEWS [address] [place] [address] [place] [address] Referral ID Status Reason Start Date Expiration Date V isits Requested Visits Authorized [id number] Closed Auto-Generate d Referral 08/21/2023 09/19/2024 1 1 [facility] for referral (narrative)* Diagnostic Procedure Only (Routine) - Pending Review Specialty Diagnoses / Procedures Referred By Pablo davis Referred To Contact XR IMAGING Diagnoses Closed nondisplaced fracture of fifth metatarsal bone of left foot, initial encounter Procedures XR FOOT GENERAL 3V AP/LAT/OBL LEFT RADEX FOOT COMPLETE MINIMUM 3 VIEWS [address] [place] [address] [place] [address] Referral ID Status Reason Start Date Expiration Date Visits Requested Visits Authorized [id number] Pending Review Auto-Generat ed Referral 08/25/2023 09/23/2024 1 1 [facility] for referral (narrative)* Diagnostic Procedure Only (Urgent) - Closed Specialty Diagnoses / Procedures Referred By Contac t Referred To Contact XR IMAGING Diagnoses Foot pain, left Pain of toe of left foot Procedures XR FOOT GENERAL 3V AP/LAT/OBL LEFT RADEX FOOT COMPLETE MINIMUM 3 VIEWS Zander Chavez, [employer] [address] [place] [address] [place] [address] Referral ID Status Reason Start Date Expiration Date V isits Requested Visits Authorized [id number] Closed Auto-Generate d Referral 08/11/2023 09/09/2024 1 1 [facility] for referral (narrative)No reason for referral information [facility] Work [facility]: Reason for visit Narrative* Diagnostic Procedure Only (Routine) - Closed Specialty Diagnoses / Procedures Referred By Contac t Referred To Contact XR IMAGING Diagnoses Closed nondisplaced fracture of fifth metatarsal bone of left foot, initial encounter Procedures XR FOOT GENERAL 3V AP/LAT/OBL LEFT RADEX FOOT COMPLETE MINIMUM 3 VIEWS Omar Concepcion [address] [place] [address] [place] [address] Referral ID Status Reason Start Date Expiration Date V isits Requested Visits Authorized [id number] Closed Auto-Generate d Referral 08/21/2023 09/19/2024 1 1 [facility] for visit Narrative* Diagnostic Procedure Only (Routine) - Closed Specialty Diagnoses / Procedures Referred By Contac t Referred To Contact XR IMAGING Diagnoses Closed nondisplaced fracture of fifth metatarsal bone of left foot, initial encounter Procedures XR FOOT GENERAL 3V AP/LAT/OBL LEFT RADEX FOOT COMPLETE MINIMUM 3 VIEWS Omar [address] [facility] [place] [address] [place] [address] Referral ID Status Reason Start Date Expiration Date V isits Requested Visits Authorized [id number] Closed Auto-Generate d Referral 08/25/2023 09/23/2024 1 1 [facility] Diagnostic Procedure Only (Urgent) - Closed Specialty Diagnoses / Procedures Referred By Contac t Referred To Contact XR IMAGING Diagnoses Foot pain, left Pain of toe of left foot Procedures XR FOOT GENERAL 3V AP/LAT/OBL LEFT RADEX FOOT COMPLETE MINIMUM 3 VIEWS Zander Chavez, LAB SUPPORT TECH.FORM [employer] [address] [place] [address] [place] [address] Referral ID Status Reason Start Date Expiration Date V isits Requested Visits Authorized [id number] Closed Auto-Generate d Referral 08/11/2023 09/09/2024 1 1 [facility] Reason for Referral Specialty Diagnoses / Procedures Referred By Contac t Referred To Contact Neurology Diagnoses Frequent falls Tremor of right hand Procedures CONSULT TO NEUROLOGY OFFICE/OUTPATIENT [facility] MDM 60-74 MINUTES Delia Waterman, LAB SUPPORT TECH.[employer] [address] [place] [address] Referral ID Status Reason Start Date Expiration Date Visits Requested Visits Authorized [id number] Authorized PCP Requested Referral 09/13/2021 09/13/2022 1 1 Specialty Diagnoses / Procedures Referred By Contac t Referred To Contact MR IMAGING Diagnoses Spinal stenosis of cervical region Procedures MRI CERVICAL SPINE WO IVCON MRI SPINAL CANAL CERVICAL W/O CONTRAST MATRL Halima Harvey, LAB SUPPORT TECH.[employer] [address] [place] [place] [address] Mr Imaging Referral ID Status Reason Start Date Expiration Date V isits Requested Visits Authorized [id number] Closed Auto-Generate d Referral 11/11/2021 12/11/2022 1 1 Specialty Diagnoses / Procedures Referred By Contac t Referred To Contact MR IMAGING Diagnoses Frequent falls Tremor of right hand Headaches Procedures MRI BRAIN WO IVCON MRI BRAIN BRAIN STEM W/O CONTRAST MATERIAL Halima Harvey, LAB SUPPORT TECH.[employer] [address] [place] [address] Mr Imaging Referral ID Status Reason Start Date Expiration Date V isits Requested Visits Authorized [id number] Closed Auto-Generate d Referral 11/11/2021 12/11/2022 1 1 Specialty Diagnoses / Procedures Referred By Contac t Referred To Contact CT IMAGING Diagnoses Cerebral infarction, unspecified mechanism (HCC) Procedures CTA NECK W IVCON CT ANGIOGRAPHY NECK W/CONTRAST/NONCONTRAST Halima Harvye, LAB SUPPORT TECH.[employer] [address] [id number] Imaging Referral ID Status Reason Start Date Expiration Date Visits Requested Visits Authorized [id number] Pending Review Auto-Generat ed Referral 12/09/2021 01/08/2023 1 1 Specialty Diagnoses / Procedures Referred By Contac t Referred To Contact CT IMAGING Diagnoses Cerebral infarction, unspecified mechanism (HCC) Procedures CTA HEAD W IVCON CT ANGIOGRAPHY HEAD W/CONTRAST/NONCONTRAST Halima Harvey, LAB SUPPORT TECH.[employer] [id number] Imaging Referral ID Status Reason Start Date Expiration Date Visits Requested Visits Authorized [id number] Pending Review Auto-Generat ed Referral 12/09/2021 01/08/2023 1 1 Referral ID Status Reason Start Date Expiration Date V isits Requested Visits Authorized [id number] Closed Auto-Generate d Referral 12/09/2021 01/08/2023 1 1 Referral ID Status Reason Start Date Expiration Date V isits Requested Visits Authorized [id number] Closed Auto-Generate d Referral 12/09/2021 01/08/2023 1 1 Specialty Diagnoses / Procedures Referred By Contac t Referred To Contact MR IMAGING Diagnoses Transient cerebral ischemia, unspecified type Procedures MRI BRAIN WO IVCON MRI BRAIN BRAIN STEM W/O CONTRAST MATERIAL Halima Harvey, LAB SUPPORT TECH.[employer] [address] [place] [id number] Mr Imaging Referral ID Status Reason Start Date Expiration Date Visits Requested Visits Authorized [id number] Pending Review Auto-Generat ed Referral 02/04/2022 03/06/2023 1 1 Specialty Diagnoses / Procedures Referred By Contac t Referred To Contact Neurosurgery Diagnoses Spinal stenosis of cervical region Myelomalacia of cervical cord (HCC) Procedures CONSULT TO NEUROSURGERY OFFICE/OUTPATIENT [facility] MDM 60-74 MINUTES Halima Harvey, VIDA.[employer] [address] [place] [place] [address] Referral ID Status Reason Start Date Expiration Date Visits Requested Visits Authorized [id number] Authorized PCP Requested Referral 02/17/2022 02/17/2023 1 1 Referral ID Status Reason Start Date Expiration Date V isits Requested Visits Authorized [id number] Closed Auto-Generate d Referral 02/04/2022 03/06/2023 1 1 Specialty Diagnoses / Procedures Referred By Contac t Referred To Contact Podiatry Diagnoses Closed nondisplaced fracture of fifth metatarsal bone of left foot, initial encounter Procedures CONSULT TO PODIATRY OFFICE/OUTPATIENT [facility] MDM 60 MINUTES Zander Chavez, VIDA.[employer] [address] [place] [address] Referral ID Status Reason Start Date Expiration Date Visits Requested Visits Authorized [id number] Authorized PCP Requested Referral 08/11/2023 08/10/2024 1 1 Specialty Diagnoses / Procedures Referred By Contac t Referred To Contact XR IMAGING Diagnoses Foot pain, left Pain of toe of left foot Procedures XR FOOT GENERAL 3V AP/LAT/OBL LEFT RADEX FOOT COMPLETE MINIMUM 3 VIEWS Zander Chavez, VIDA.[employer] [address] [place] [address] [place] [id number] Referral ID Status Reason Start Date Expiration Date V isits Requested Visits Authorized [id number] Closed Auto-Generate d Referral 08/11/2023 09/09/2024 1 1 Advance Directives No Advanced Directives Records FoundDocuments on File Type Date Recorded 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 Advance Directive(s) 08/08/2018 7:06 AM Advance Directive(s) 07/10/2018 1:52 PM Advance Directive(s) 02/24/2017 8:00 AM Documents on File Type Date Recorded 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 Advance Directive(s) 08/08/2018 7:06 AM Advance Directive(s) 07/10/2018 1:52 PM Advance Directive(s) 02/24/2017 8:00 AM Advance Directive Response Recorded Date/ Time Name of Medical Power of Web Producer January 27, 2022 2:13pm Advance Directives No April 3:01pm Living Will Yes January 27, 2 022 2:13pm Power of Web Producer Yes January 27, 2022 2:13pm Advance Directive Response Recorded Date/ Time Advance Directives No April 2:01pm Living Will Yes January 27, 2 022 1:13pm Power of Web Producer Yes January 27, 2022 1:13pm Advance Directive Response Recorded Date/ Time Advance Directives No April 3:01pm Living Will Yes January 27, 2 022 2:13pm Power of Web Producer Yes January 27, 2022 2:13pm Advance Directive Response Recorded Date/ Time Name of Medical Power of Web Producer Tere Monzon March 13, 2023 12:33pm Advance Directives No April 3:01pm Living Will Yes March 13 12:33pm Power of Web Producer Yes March 13, 2023 12:33pm Name of Medical Power of Web Producer TERE DARIUSZ-- February 24, 2023 8:15am Advance Directive Response Recorded Date/ Time Name of Medical Power of Web Producer Tere Nevarezer March 13, 2023 11:33am Name of Medical Power of Web Producer TERE NEVAREZOR-- February 24, 2023 7:15am Name of Medical Power of Web Producer Tere Nevarezer April 16, 2023 11:16am Advance Directives No April 2:01pm Living Will Yes April 16, 2 023 11:16am Power of Web Producer Yes April 16, 2023 11:16am Advance Directive Response Recorded Date/ Time Name of Medical Power of Web Producer Tere Nevarezer March 13, 2023 11:33am Name of Medical Power of Web Producer TERE DARIUSZ-- February 24, 2023 7:15am Name of Medical Power of Web Producer tere April 16, 2023 3:58pm Advance Directives No April 2:01pm Living Will Yes April 16, 2 023 3:58pm Power of Web Producer Yes April 16, 2023 3:58pm Advance Directive Response Recorded Date/ Time Advance Directives No April 3:01pm Living Will Yes April 16, 2 023 4:58pm Power of Web Producer Yes April 16, 2023 4:58pm Advance Directive Response Recorded Date/ Time Living Will No July 28, 2024 3:24pm Power of Web Producer No July 28 3:24pm Advance Directives No April 3:01pm Advance Directive Response Recorded Date/ Time Living Will No July 28, 2024 3:24pm Do you have a Healthcare Power of Web Producer? No July 28, 2024 3:24pm Do you have a Healthcare Power of Web Producer? Yes November 13, 2024 2:03pm Advance Directives No April 3:01pm Advance Directive Response Recorded Date/ Time Do you have a Healthcare Power of Web Producer? Yes November 13, 2024 2:03pm Advance Directives No April 3:01pm Advance Directive Response Recorded Date/ Time Do you have a Healthcare Power of Web Producer? Yes January 08, 2025 1:03pm Do you have a Healthcare Power of Web Producer? 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 Essential hypertension Pure hypercholesterolemia Atherosclerotic heart disease of [place] coronary artery without angina pectoris Dyspnea Essential hypertension Pure hypercholesterolemia Chief Complaint 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 Reason for Visit 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 Dyspnea Essential hypertension Pure hypercholesterolemia Chief Complaint EORDERS ARTHROPATHY OF LUMBAR Chief Complaint [place]B [place] Reason for Visit 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 Essential hypertension Pure hypercholesterolemia Chief Complaint FALL FALL CHEST PAIN Reason for Visit Chest pain Chief Complaint FALL FALL CHEST PAIN CHEST PAIN CHEST PAIN CHEST PAIN CHEST PAIN Reason for Visit Chest pain Chief Complaint Amb Documentation THORACIS SPINE PAIN Chief Complaint Admit Date CHEST PAIN July 28, 2024 12:1 0pm Chief Complaint Admit Date CHEST PAIN July 28, 2024 12:1 0pm CHEST PAIN July 28, 2024 4:27 pm CHEST PAIN July 29, 2024 9:0 2am CHEST PAIN July 29, 2024 11: 03am Reason for Visit Admit Date Chest pain July 28, 2024 12:1 0pm Chief Complaint Admit Date CHEST PAIN July 28, 2024 12:1 0pm CHEST PAIN July 28, 2024 4:27 pm CHEST PAIN July 29, 2024 9:0 2am CHEST PAIN July 29, 2024 11: 03am foreign body November 13, 2024 12:4 7pm Chief Complaint Admit Date foreign body November 13, 2024 12:4 7pm FU BEFORE SURGERY November 29, 2024 7:51 am Reason for Visit Admit Date History of anemia November 29, 2024 7:51 am History of CAD (coronary artery disease) November 29, 2024 7:51am Angina pectoris November 29, 2024 7:51 am Chief Complaint Admit Date foreign body November 13, 2024 12:4 7pm FU BEFORE SURGERY November 29, 2024 7:51 am [facility] FU December 02, 2024 9:53 am Reason for Visit Admit Date History of CAD (coronary artery disease) November 29, 2024 7:51am Pre-operative cardiovascular examination November 29, 2024 7:51am Essential hypertension November 29, 2024 7 :51am Pure hypercholesterolemia November 29 7:51am Dysphagia December 02, 2024 9:53 am Chronic cough December 02, 2024 9:53 am Reason for Visit Admit Date History of CAD (coronary artery disease) November 29, 2024 7:51am Pre-operative cardiovascular examination November 29, 2024 7:51am Essential hypertension November 29, 2024 7 :51am Pure hypercholesterolemia November 29 7:51am Chronic cough December 02, 2024 9:53 am Dysphagia December 02, 2024 9:53 am Chief Complaint Admit Date foreign body November 13, 2024 12:4 7pm FU BEFORE SURGERY November 29, 2024 7:51 am Hospital FU December 02, 2024 9:53 am DIFFICULTY SWALLOWING December 23, 2024 9 :15am Reason for Visit Admit Date History of CAD (coronary artery disease) November 29, 2024 7:51am Pre-operative cardiovascular examination November 29, 2024 7:51am Essential hypertension November 29, 2024 7 :51am Pure hypercholesterolemia November 29 7:51am Chronic cough December 02, 2024 9:53 am Dysphagia December 02, 2024 9:53 am Chronic cough January 10, 2025 1: 41pm Dysphagia January 10, 2025 1: 41pm Family History No Family History Records Found Relationship Condition Age at Onset Recorded Date/T robert father Cerebrovascular accident (CVA) Unknown mother Cardiomegaly Unknown brother Coronary artery disease Unknown Diabetes mellitus Unknown brother History of heart valve replacement Unknow n brother Rheumatic fever Unknown sister Hypertension Unknown Aortic aneurysm Unknown History of aortic valve replacement Unkno wn brother Malignant neoplasm Unknown brother Disorder of thyroid Unknown Summary Purpose Additional Source Comments Source Comments (unrecognize d section and content) In the event this informatio n is protected by the Federal Confidentiality of Alcohol and Drug Abuse Patient Records regulations: The Federal rules restrict any use of the information to criminally investigate or prosecute any alcohol or drug abuse patient.[facility] the event this information is protected by the Federal Confidentiality of Alcohol and Drug Abuse Patient Records regulations: The Federal rules restrict any use of the information to criminally investigate or prosecute any alcohol or drug abuse patient.[facility] CenterIn the event this information is protected by the Federal Confidentiality of Alcohol and Drug Abuse Patient Records regulations: The Federal rules restrict any use of the information to criminally investigate or prosecute any alcohol or drug abuse patient.[facility] CenterIn the event this information is protected by the Federal Confidentiality of Alcohol and Drug Abuse Patient Records regulations: The Federal rules restrict any use of the information to criminally investigate or prosecute any alcohol or drug abuse patient.[facility] CenterIn the event this information is protected by the Federal Confidentiality of Alcohol and Drug Abuse Patient Records regulations: The Federal rules restrict any use of the information to criminally investigate or prosecute any alcohol or drug abuse patient.[facility] CenterIn the event this information is protected by the Federal Confidentiality of Alcohol and Drug Abuse Patient Records regulations: The Federal rules restrict any use of the information to criminally investigate or prosecute any alcohol or drug abuse patient.[facility] CenterIn the event this information is protected by the Federal Confidentiality of Alcohol and Drug Abuse Patient Records regulations: The Federal rules restrict any use of the information to criminally investigate or prosecute any alcohol or drug abuse patient.[facility] CenterIn the event this information is protected by the Federal Confidentiality of Alcohol and Drug Abuse Patient Records regulations: The Federal rules restrict any use of the information to criminally investigate or prosecute any alcohol or drug abuse patient.[facility] CenterIn the event this information is protected by the Federal Confidentiality of Alcohol and Drug Abuse Patient Records regulations: The Federal rules restrict any use of the information to criminally investigate or prosecute any alcohol or drug abuse patient.[facility] CenterIn the event this information is protected by the Federal Confidentiality of Alcohol and Drug Abuse Patient Records regulations: The Federal rules restrict any use of the information to criminally investigate or prosecute any alcohol or drug abuse patient.[facility] CenterIn the event this information is protected by the Federal Confidentiality of Alcohol and Drug Abuse Patient Records regulations: The Federal rules restrict any use of the information to criminally investigate or prosecute any alcohol or drug abuse patient.[facility] CenterIn the event this information is protected by the Federal Confidentiality of Alcohol and Drug Abuse Patient Records regulations: The Federal rules restrict any use of the information to criminally investigate or prosecute any alcohol or drug abuse patient.[facility] CenterIn the event this information is protected by the Federal Confidentiality of Alcohol and Drug Abuse Patient Records regulations: The Federal rules restrict any use of the information to criminally investigate or prosecute any alcohol or drug abuse patient.[facility] CenterIn the event this information is protected by the Federal Confidentiality of Alcohol and Drug Abuse Patient Records regulations: The Federal rules restrict any use of the information to criminally investigate or prosecute any alcohol or drug abuse patient.[facility] CenterIn the event this information is protected by the Federal Confidentiality of Alcohol and Drug Abuse Patient Records regulations: The Federal rules restrict any use of the information to criminally investigate or prosecute any alcohol or drug abuse patient.[facility] CenterIn the event this information is protected by the Federal Confidentiality of Alcohol and Drug Abuse Patient Records regulations: The Federal rules restrict any use of the information to criminally investigate or prosecute any alcohol or drug abuse patient.[facility] CenterIn the event this information is protected by the Federal Confidentiality of Alcohol and Drug Abuse Patient Records regulations: The Federal rules restrict any use of the information to criminally investigate or prosecute any alcohol or drug abuse patient.[facility] CenterIn the event this information is protected by the Federal Confidentiality of Alcohol and Drug Abuse Patient Records regulations: The Federal rules restrict any use of the information to criminally investigate or prosecute any alcohol or drug abuse patient.[facility] CenterIn the event this information is protected by the Federal Confidentiality of Alcohol and Drug Abuse Patient Records regulations: The Federal rules restrict any use of the information to criminally investigate or prosecute any alcohol or drug abuse patient.[facility] CenterIn the event this information is protected by the Federal Confidentiality of Alcohol and Drug Abuse Patient Records regulations: The Federal rules restrict any use of the information to criminally investigate or prosecute any alcohol or drug abuse patient.[facility] CenterIn the event this information is protected by the Federal Confidentiality of Alcohol and Drug Abuse Patient Records regulations: The Federal rules restrict any use of the information to criminally investigate or prosecute any alcohol or drug abuse patient.[facility] CenterIn the event this information is protected by the Federal Confidentiality of Alcohol and Drug Abuse Patient Records regulations: The Federal rules restrict any use of the information to criminally investigate or prosecute any alcohol or drug abuse patient.[facility] CenterIn the event this information is protected by the Federal Confidentiality of Alcohol and Drug Abuse Patient Records regulations: The Federal rules restrict any use of the information to criminally investigate or prosecute any alcohol or drug abuse patient.[facility] CenterIn the event this information is protected by the Federal Confidentiality of Alcohol and Drug Abuse Patient Records regulations: The Federal rules restrict any use of the information to criminally investigate or prosecute any alcohol or drug abuse patient.[facility] CenterIn the event this information is protected by the Federal Confidentiality of Alcohol and Drug Abuse Patient Records regulations: The Federal rules restrict any use of the information to criminally investigate or prosecute any alcohol or drug abuse patient.[facility] CenterIn the event this information is protected by the Federal Confidentiality of Alcohol and Drug Abuse Patient Records regulations: The Federal rules restrict any use of the information to criminally investigate or prosecute any alcohol or drug abuse patient.[facility] CenterIn the event this information is protected by the Federal Confidentiality of Alcohol and Drug Abuse Patient Records regulations: The Federal rules restrict any use of the information to criminally investigate or prosecute any alcohol or drug abuse patient.[facility] CenterIn the event this information is protected by the Federal Confidentiality of Alcohol and Drug Abuse Patient Records regulations: The Federal rules restrict any use of the information to criminally investigate or prosecute any alcohol or drug abuse patient.[facility] CenterIn the event this information is protected by the Federal Confidentiality of Alcohol and Drug Abuse Patient Records regulations: The Federal rules restrict any use of the information to criminally investigate or prosecute any alcohol or drug abuse patient.[facility] CenterIn the event this information is protected by the Federal Confidentiality of Alcohol and Drug Abuse Patient Records regulations: The Federal rules restrict any use of the information to criminally investigate or prosecute any alcohol or drug abuse patient.[facility] CenterIn the event this information is protected by the Federal Confidentiality of Alcohol and Drug Abuse Patient Records regulations: The Federal rules restrict any use of the information to criminally investigate or prosecute any alcohol or drug abuse patient.[facility] CenterIn the event this information is protected by the Federal Confidentiality of Alcohol and Drug Abuse Patient Records regulations: The Federal rules restrict any use of the information to criminally investigate or prosecute any alcohol or drug abuse patient.[facility] CenterIn the event this information is protected by the Federal Confidentiality of Alcohol and Drug Abuse Patient Records regulations: The Federal rules restrict any use of the information to criminally investigate or prosecute any alcohol or drug abuse patient.[facility] CenterIn the event this information is protected by the Federal Confidentiality of Alcohol and Drug Abuse Patient Records regulations: The Federal rules restrict any use of the information to criminally investigate or prosecute any alcohol or drug abuse patient.[facility] CenterIn the event this information is protected by the Federal Confidentiality of Alcohol and Drug Abuse Patient Records regulations: The Federal rules restrict any use of the information to criminally investigate or prosecute any alcohol or drug abuse patient.[facility] CenterIn the event this information is protected by the Federal Confidentiality of Alcohol and Drug Abuse Patient Records regulations: The Federal rules restrict any use of the information to criminally investigate or prosecute any alcohol or drug abuse patient.[facility] CenterIn the event this information is protected by the Federal Confidentiality of Alcohol and Drug Abuse Patient Records regulations: The Federal rules restrict any use of the information to criminally investigate or prosecute any alcohol or drug abuse patient.[facility] CenterIn the event this information is protected by the Federal Confidentiality of Alcohol and Drug Abuse Patient Records regulations: The Federal rules restrict any use of the information to criminally investigate or prosecute any alcohol or drug abuse patient.[facility] CenterIn the event this information is protected by the Federal Confidentiality of Alcohol and Drug Abuse Patient Records regulations: The Federal rules restrict any use of the information to criminally investigate or prosecute any alcohol or drug abuse patient.[facility] CenterIn the event this information is protected by the Federal Confidentiality of Alcohol and Drug Abuse Patient Records regulations: The Federal rules restrict any use of the information to criminally investigate or prosecute any alcohol or drug abuse patient.[facility] CenterIn the event this information is protected by the Federal Confidentiality of Alcohol and Drug Abuse Patient Records regulations: The Federal rules restrict any use of the information to criminally investigate or prosecute any alcohol or drug abuse patient.[facility] CenterIn the event this information is protected by the Federal Confidentiality of Alcohol and Drug Abuse Patient Records regulations: The Federal rules restrict any use of the information to criminally investigate or prosecute any alcohol or drug abuse patient.[facility] CenterIn the event this information is protected by the Federal Confidentiality of Alcohol and Drug Abuse Patient Records regulations: The Federal rules restrict any use of the information to criminally investigate or prosecute any alcohol or drug abuse patient.[facility] CenterIn the event this information is protected by the Federal Confidentiality of Alcohol and Drug Abuse Patient Records regulations: The Federal rules restrict any use of the information to criminally investigate or prosecute any alcohol or drug abuse patient.[facility] CenterIn the event this information is protected by the Federal Confidentiality of Alcohol and Drug Abuse Patient Records regulations: The Federal rules restrict any use of the information to criminally investigate or prosecute any alcohol or drug abuse patient.[facility] CenterIn the event this information is protected by the Federal Confidentiality of Alcohol and Drug Abuse Patient Records regulations: The Federal rules restrict any use of the information to criminally investigate or prosecute any alcohol or drug abuse patient.[facility] CenterIn the event this information is protected by the Federal Confidentiality of Alcohol and Drug Abuse Patient Records regulations: The Federal rules restrict any use of the information to criminally investigate or prosecute any alcohol or drug abuse patient.[facility] CenterIn the event this information is protected by the Federal Confidentiality of Alcohol and Drug Abuse Patient Records regulations: The Federal rules restrict any use of the information to criminally investigate or prosecute any alcohol or drug abuse patient.[facility] CenterIn the event this information is protected by the Federal Confidentiality of Alcohol and Drug Abuse Patient Records regulations: The Federal rules restrict any use of the information to criminally investigate or prosecute any alcohol or drug abuse patient.[facility] the event this information is protected by the Federal Confidentiality of Alcohol and Drug Abuse Patient Records regulations: The Federal rules restrict any use of the information to criminally investigate or prosecute any alcohol or drug abuse patient.[facility] CenterIn the event this information is protected by the Federal Confidentiality of Alcohol and Drug Abuse Patient Records regulations: The Federal rules restrict any use of the information to criminally investigate or prosecute any alcohol or drug abuse patient.[facility] CenterIn the event this information is protected by the Federal Confidentiality of Alcohol and Drug Abuse Patient Records regulations: The Federal rules restrict any use of the information to criminally investigate or prosecute any alcohol or drug abuse patient.[facility] the event this information is protected by the Federal Confidentiality of Alcohol and Drug Abuse Patient Records regulations: The Federal rules restrict any use of the information to criminally investigate or prosecute any alcohol or drug abuse patient.[facility] CenterIn the event this information is protected by the Federal Confidentiality of Alcohol and Drug Abuse Patient Records regulations: The Federal rules restrict any use of the information to criminally investigate or prosecute any alcohol or drug abuse patient.[facility] CenterIn the event this information is protected by the Federal Confidentiality of Alcohol and Drug Abuse Patient Records regulations: The Federal rules restrict any use of the information to criminally investigate or prosecute any alcohol or drug abuse patient.[facility] CenterIn the event this information is protected by the Federal Confidentiality of Alcohol and Drug Abuse Patient Records regulations: The Federal rules restrict any use of the information to criminally investigate or prosecute any alcohol or drug abuse patient.[facility] CenterIn the event this information is protected by the Federal Confidentiality of Alcohol and Drug Abuse Patient Records regulations: The Federal rules restrict any use of the information to criminally investigate or prosecute any alcohol or drug abuse patient.[facility] CenterIn the event this information is protected by the Federal Confidentiality of Alcohol and Drug Abuse Patient Records regulations: The Federal rules restrict any use of the information to criminally investigate or prosecute any alcohol or drug abuse patient.[facility] CenterIn the event this information is protected by the Federal Confidentiality of Alcohol and Drug Abuse Patient Records regulations: The Federal rules restrict any use of the information to criminally investigate or prosecute any alcohol or drug abuse patient.[facility] CenterIn the event this information is protected by the Federal Confidentiality of Alcohol and Drug Abuse Patient Records regulations: The Federal rules restrict any use of the information to criminally investigate or prosecute any alcohol or drug abuse patient.[facility] CenterIn the event this information is protected by the Federal Confidentiality of Alcohol and Drug Abuse Patient Records regulations: The Federal rules restrict any use of the information to criminally investigate or prosecute any alcohol or drug abuse patient.[facility] CenterIn the event this information is protected by the Federal Confidentiality of Alcohol and Drug Abuse Patient Records regulations: The Federal rules restrict any use of the information to criminally investigate or prosecute any alcohol or drug abuse patient.[facility] CenterIn the event this information is protected by the Federal Confidentiality of Alcohol and Drug Abuse Patient Records regulations: The Federal rules restrict any use of the information to criminally investigate or prosecute any alcohol or drug abuse patient.[facility] CenterIn the event this information is protected by the Federal Confidentiality of Alcohol and Drug Abuse Patient Records regulations: The Federal rules restrict any use of the information to criminally investigate or prosecute any alcohol or drug abuse patient.[facility] CenterIn the event this information is protected by the Federal Confidentiality of Alcohol and Drug Abuse Patient Records regulations: The Federal rules restrict any use of the information to criminally investigate or prosecute any alcohol or drug abuse patient.[facility] CenterIn the event this information is protected by the Federal Confidentiality of Alcohol and Drug Abuse Patient Records regulations: The Federal rules restrict any use of the information to criminally investigate or prosecute any alcohol or drug abuse patient.[facility] CenterIn the event this information is protected by the Federal Confidentiality of Alcohol and Drug Abuse Patient Records regulations: The Federal rules restrict any use of the information to criminally investigate or prosecute any alcohol or drug abuse patient.[facility] CenterIn the event this information is protected by the Federal Confidentiality of Alcohol and Drug Abuse Patient Records regulations: The Federal rules restrict any use of the information to criminally investigate or prosecute any alcohol or drug abuse patient.[facility] CenterIn the event this information is protected by the Federal Confidentiality of Alcohol and Drug Abuse Patient Records regulations: The Federal rules restrict any use of the information to criminally investigate or prosecute any alcohol or drug abuse patient.[facility] CenterIn the event this information is protected by the Federal Confidentiality of Alcohol and Drug Abuse Patient Records regulations: The Federal rules restrict any use of the information to criminally investigate or prosecute any alcohol or drug abuse patient.[facility] CenterIn the event this information is protected by the Federal Confidentiality of Alcohol and Drug Abuse Patient Records regulations: The Federal rules restrict any use of the information to criminally investigate or prosecute any alcohol or drug abuse patient.[facility] CenterIn the event this information is protected by the Federal Confidentiality of Alcohol and Drug Abuse Patient Records regulations: The Federal rules restrict any use of the information to criminally investigate or prosecute any alcohol or drug abuse patient.[facility] CenterIn the event this information is protected by the Federal Confidentiality of Alcohol and Drug Abuse Patient Records regulations: The Federal rules restrict any use of the information to criminally investigate or prosecute any alcohol or drug abuse patient.[facility] CenterIn the event this information is protected by the Federal Confidentiality of Alcohol and Drug Abuse Patient Records regulations: The Federal rules restrict any use of the information to criminally investigate or prosecute any alcohol or drug abuse patient.[facility] CenterIn the event this information is protected by the Federal Confidentiality of Alcohol and Drug Abuse Patient Records regulations: The Federal rules restrict any use of the information to criminally investigate or prosecute any alcohol or drug abuse patient.[facility] CenterIn the event this information is protected by the Federal Confidentiality of Alcohol and Drug Abuse Patient Records regulations: The Federal rules restrict any use of the information to criminally investigate or prosecute any alcohol or drug abuse patient.[facility] Reason for Visit (unrecogniz ed section and content) Reason Comments Dizziness Reason Onset Date Comments Opened In Error 10/20/2020 Reason Comments F/U 6 Month Reason Comments Patient Request Specialty Diagnoses / Procedures Referred By Contac t Referred To Contact MR IMAGING Diagnoses Spinal stenosis of cervical region Procedures MRI CERVICAL SPINE WO IVCON MRI SPINAL CANAL CERVICAL W/O CONTRAST MATRL Halima Harvey, LAB SUPPORT TECH.[employer] [address] [place] [id number] Mr Imaging Referral ID Status Reason Start Date Expiration Date V isits Requested Visits Authorized [id number] Closed Auto-Generate d Referral 11/11/2021 12/11/2022 1 1 Specialty Diagnoses / Procedures Referred By Contac t Referred To Contact MR IMAGING Diagnoses Frequent falls Tremor of right hand Headaches Procedures MRI BRAIN WO IVCON MRI BRAIN BRAIN STEM W/O CONTRAST MATERIAL Halima Harvey, LAB SUPPORT TECH.[employer] [address] [place] [address] Mr Imaging Referral ID Status Reason Start Date Expiration Date V isits Requested Visits Authorized [id number] Closed Auto-Generate d Referral 11/11/2021 12/11/2022 1 1 Reason Comments Results Reason Comments Refill Request Reason Comments New Patient Evaluation Reason Comments Lab Orders Reason Comments Covid Test Result Reason Comments Radiology CT Specialty Diagnoses / Procedures Referred By Contac t Referred To Contact CT IMAGING Diagnoses Cerebral infarction, unspecified mechanism (HCC) Procedures CTA NECK W IVCON CT ANGIOGRAPHY NECK W/CONTRAST/NONCONTRAST Halima Harvey, VIDA.[employer] [address] [place] [id number] Imaging Referral ID Status Reason Start Date Expiration Date V isits Requested Visits Authorized [id number] Closed Auto-Generate d Referral 12/09/2021 01/08/2023 1 1 Reason Comments Results Reason Comments Established Patient Follow up Tremors an d falls Specialty Diagnoses / Procedures Referred By Contac t Referred To Contact MR IMAGING Diagnoses Transient cerebral ischemia, unspecified type Procedures MRI BRAIN WO IVCON MRI BRAIN BRAIN STEM W/O CONTRAST MATERIAL Halima Harvey, LAB SUPPORT TECH.[employer] [address] [place] [address] Mr Imaging Referral ID Status Reason Start Date Expiration Date V isits Requested Visits Authorized [id number] Closed Auto-Generate d Referral 02/04/2022 03/06/2023 1 1 Reason Comments Results Reason Onset Date Comments Refill Request 03/14/2022 Reason Comments 6 Month Exam Reason Comments Medication Problem Reason Onset Date Comments Refill Request 08/08/2022 Reason Comments Medication Problem Plavix hold for proc edure Reason Comments New Ingrown Toenail Nail Fungus Specialty Diagnoses / Procedures Referred By Contac t Referred To Contact Podiatry Diagnoses Ingrown nail Nail fungus Procedures CONSULT TO PODIATRY OFFICE/OUTPATIENT NEW HIGH MDM 60-74 MINUTES George Vaughan MD [address] [place] [address] Referral ID Status Reason Start Date Expiration Date V isits Requested Visits Authorized [id number] Closed PCP Requested Referral 11/03/2022 11/03/2023 1 1 Reason Comments Follow Up Falls and Tremor Reason Comments Forms Medical clearance fo -[facility] Reason Comments Dental office question Reason Comments Received Outside Medical Records [facility]-spine records Dr. Maldonado Reason Onset Date Comments Refill Request 02/21/2023 Reason Comments UTI Possible uti, freque ncy, burning x 2 days Reason Comments Med Change Request Reason Comments Foot Trauma LEFT foot/little toe x 4 days Reason Onset Date Comments Refill Request 08/15/2023 Reason Comments Appointment Reason Comments Established Patient Fracture Specialty Diagnoses / Procedures Referred By Contac t Referred To Contact Podiatry Diagnoses Closed nondisplaced fracture of fifth metatarsal bone of left foot, initial encounter Procedures CONSULT TO PODIATRY OFFICE/OUTPATIENT NEW HIGH MDM 60 MINUTES Zander Chavez, LAB SUPPORT TECH.[employer] [address] [place] [address] Referral ID Status Reason Start Date Expiration Date V isits Requested Visits Authorized [id number] Closed PCP Requested Referral 08/11/2023 08/10/2024 1 1 Reason Onset Date Comments Refill Request 08/30/2023 Reason Comments Orders Received fax from [facility], [facility] for request to hold clopidogrel for procedure on 10/13/2023. Given to provider for review. MARY 02/28/2023 Reason Comments Orders Reason Comments Follow Up Reason Onset Date Comments Refill Request 11/28/2023 Reason Onset Date Comments Refill Request 12/05/2023 Reason Comments New Patient Frequent falls, weak ness Reason Onset Date Comments Refill Request 02/28/2024 Reason Comments Request to hold anticoagulant Reason Comments New Patient LightheadedOrthostat ic hypotensionRecurrent fallsWeakness of both lower extremitiesMyelomalacia of cervical cord (HCC)Spinal stenosis of cervical regionSpinal stenosis of lumbar region, unspecified whether neurogenic 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 presentHistory of strokeHeadaches Reason Comments Ear Problem Blood in L ear x1 we ek, no pain Reason Onset Date Comments Refill Request 05/27/2024 Reason Comments F/U 6 Month Reason Comments Established Patient Malaise, tremors, fr eq falls, lightheaded, SAUCEDO Reason Comments Patient Question Reason Onset Date Comments Results 08/29/2024 Reason Onset Date Comments Refill Request 09/18/2024 Reason Comments Abdominal Mass [facility] ED f/u - umbilic al hernia Reason Comments Preparations For Surgery Preoperative Pl avix instructions Reason Comments Preparations For Surgery PACC Reason Comments Consult Reason Comments Follow Up Weak urinary stream post surgery. Reason Comments Follow Up Malaise/fatigue, lig htheadedness, recurrent falls (none in last year using rollator), orthostatic hypotension, Weakness of Les, HX of CVA and spinal stenosis Reason Comments Patient Update Notes to Dr Arguello Care Teams (unrecognized sec tion and content) Team Status: Active Member Role Status Dates Dr. George Vaughan MD Primary Care Provider Active Team Status: Inactive Member Role Status Dates Dr. George Vaughan MD Primary Care Provider Active Start: July 28, 2024 End: July 29, 2024 Dr. David Doll MD Emergency Provider Active S tart: July 28, 2024 End: July 29, 2024 Dr. Nini Brown MD Admit Provider Active St art: July 28, 2024 End: July 29, 2024 Dr. Nini Brown MD Other Provider Active St art: July 28, 2024 End: July 29, 2024 Dr. Nawaf Leblanc DO Attending Provider Active Start: July 28, 2024 End: July 29, 2024 Team Status: Active Member Role Status Dates Dr. George Vaughan MD Primary Care Provider Active Start: July 28, 2024 Dr. David Doll MD Emergency Provider Active S tart: July 28, 2024 Dr. Nini Brown MD Admit Provider Active St art: July 28, 2024 Dr. Nini Brown MD Attending Provider Active Start: July 28, 2024 Dr. Nini Brown MD Other Provider Active St art: July 28, 2024 Team Status: Active Member Role Status Dates Dr. George Vaughan MD Primary Care Provider Active Start: July 29, 2024 Dr. David Doll MD Emergency Provider Active S tart: July 29, 2024 Dr. Nini Brown MD Admit Provider Active St art: July 29, 2024 Dr. Nini Brown MD Other Provider Active St art: July 29, 2024 Dr. Nawaf Leblanc DO Attending Provider Active Start: July 29, 2024 Dr. Nawaf Leblanc DO Other Provider Active Star t: July 29, 2024 Team Status: Active Member Role Status Dates Dr. George Vaughan MD Primary Care Provider Active Start: July 29, 2024 Dr. David Doll MD Emergency Provider Active S tart: July 29, 2024 Dr. Nini Brown MD Admit Provider Active St art: July 29, 2024 Dr. Nini Brown MD Other Provider Active St art: July 29, 2024 Dr. Nawaf Leblanc DO Other Provider Active Star t: July 29, 2024 Dr. Cuong Andrews MD Attending Provider Activ e Start: July 29, 2024 Research Neuropsychologist Relationship Specialty Start Date End Date George Vaughan MD [address] [place] [address] PCP - General Family Practice 11/04/15 Flip Kramer [address] [place] [address] Cardiology 04/29/21 Jalen Ibarra [address] [place] [address] Urology 04/29/21 Kavya Nicholear [address] [place] [address] Pain Management 04/29/21 Jaguar Osman [address] [place] [phone] Orthopedics 04/29/21 Erik Guajardo [address] [place] [address] Pulmonary Disease 04/29/21 Research Neuropsychologist Relationship Specialty Start Date End Date George Vaughan MD [address] [place] [address] PCP - General Family Practice 11/04/15 Flip Kramer [address] [place] [address] Cardiology 04/29/21 Jalen Ibarra [address] [place] [address] Urology 04/29/21 Oma Nicholeumbar [address] [place] [address] Pain Management 04/29/21 Jaguar Osman [address] [place] [phone] Orthopedics 04/29/21 Erik Guajardo [address] [place] [address] Pulmonary Disease 04/29/21 Research Neuropsychologist Relationship Specialty Start Date End Date George Vaughan MD [address] [place] [address] PCP - General Family Practice 11/04/15 Flip Kramer [address] [place] [address] Cardiology 04/29/21 Jalen Ibarra [address] [place] [address] [address] [place] [address] Urology 04/29/21 Jose G Nichole [address] [place] [address] Pain Management 04/29/21 Jaguar Osman [address] [place] [phone] Orthopedics 04/29/21 Erik Guajardo [address] [place] [address] Pulmonary Disease 04/29/21 Research Neuropsychologist Relationship Specialty Start Date End Date George Vaughan MD [address] [place] [address] PCP - General Family Practice 11/04/15 Flip Kramer [address] [place] [address] Cardiology 04/29/21 StaceyJalen sanford [address] [place] [address] [place] [address] Urology 04/29/21 Jose G Nichole [address] [place] [address] Pain Management 04/29/21 Jaguar Osman [address] [place] [phone] Orthopedics 04/29/21 Erik Guajardo [address] [place] [address] Pulmonary Disease 04/29/21 Research Neuropsychologist Relationship Specialty Start Date End Date George Vaughan MD [address] [place] [address] PCP - General Family Practice 11/04/15 Flip Kramer [address] [place] [address] Cardiology 04/29/21 Jalen Ibarra [address] [place] [address] [place] [address] Urology 04/29/21 Jose G Nichole [address] [place] [address] Pain Management 04/29/21 Jaguar Osman [address] [place] [address] Orthopedics 04/29/21 Erik Guajardo [address] [place] [address] Pulmonary Disease 04/29/21 Research Neuropsychologist Relationship Specialty Start Date End Date George Vaughan MD [address] [place] [address] PCP - General Family Practice 11/04/15 Flip Kramer [address] [place] [address] Cardiology 04/29/21 Jalen Ibarra [address] [place] [address] [place] [address] Urology 04/29/21 Jose G Nichole [address] [place] [address] Pain Management 04/29/21 Jaguar Osman [address] [facility] [address] [place] [address] Orthopedics 04/29/21 Erik Guajardo [address] [place] [address] Pulmonary Disease 04/29/21 Research Neuropsychologist Relationship Specialty Start Date End Date George Vaughan MD [address] [place] [address] PCP - General Family Practice 11/04/15 Flip Kramer [address] [place] [address] Cardiology 04/29/21 Jalen Ibarra [address] [place] [address] [place] [address] Urology 04/29/21 Oma Nicholeumbar [address] [place] [address] Pain Management 04/29/21 Jaguar Osman [address] [place] [phone] Orthopedics 04/29/21 Erik Guajardo [address] [place] [address] Pulmonary Disease 04/29/21 Research Neuropsychologist Relationship Specialty Start Date End Date George Vaughan MD [address] [place] [address] PCP - General Family Practice 11/04/15 Flip [address] [place] [address] Cardiology 04/29/21 Jalen Ibarra [address] [place] [address] [address] [place] [address] Urology 04/29/21 Jose G Nichole [address] [place] [address] Pain Management 04/29/21 OsmanJaguar mosley [address] [place] [address] Orthopedics 04/29/21 Erik Guajardo [address] [place] [address] Pulmonary Disease 04/29/21 Research Neuropsychologist Relationship Specialty Start Date End Date George Vaughan MD [address] [place] [address] PCP - General Family Practice 11/04/15 Flip Kramer [address] [place] [address] Cardiology 04/29/21 Jalen Ibarra [address] [place] [address] Urology 04/29/21 Jose G Nichole [address] [place] [address] Pain Management 04/29/[address] [place] [address] Orthopedics 04/29/21 Erik Guajardo [address] [place] [address] Pulmonary Disease 04/29/21 Research Neuropsychologist Relationship Specialty Start Date End Date George Vaughan MD [address] [place] [address] PCP - General Family Practice 11/04/15 Flip Kramer [address] [place] [address] Cardiology 04/29/21 Jalen Ibarra [address] [place] [address] Urology 04/29/21 Jose G Nichole [address] [place] [address] Pain Management 04/29/21 Jaguar Osman [address] [place] [address] Orthopedics 04/29/21 Erik Guajardo [address] [place] [address] Pulmonary Disease 04/29/21 Research Neuropsychologist Relationship Specialty Start Date End Date George Vaughan MD [address] [place] [address] PCP - General Family Practice 11/04/15 Flip Kramer [address] [place] [address] Cardiology 04/29/21 Jalen Ibarra Miguel [address] [place] [address] Urology 04/29/21 Jose G Nichole [address] [place] [address] Pain Management 04/29/21 Jagu[facility] Osman [address] [facility] [address] [place] [phone] Orthopedics 04/29/21 Erik Guajardo [address] [place] [address] Pulmonary Disease 04/29/21 Research Neuropsychologist Relationship Specialty Start Date End Date George Vaughan MD [address] [place] [address] PCP - General Family Practice 11/04/15 Flip Kramer [address] [place] [place] [address] Cardiology 04/29/21 Stacey Forrest [address] [place] [address] Urology 04/29/21 Jose G Nichole [address] [place] [address] Pain Management 04/29/21 OsmanJaguar mosley L [address] [facility] [place] [address] [place] [phone] Orthopedics 04/29/21 Erik Guajardo 17[address] [facility] [place] [address] Pulmonary Disease 04/29/21 Research Neuropsychologist Relationship Specialty Start Date End Date George Vaughan MD [address]40 [place] [address] PCP - General Family Medicine 11/04/15 Flip Kramer 176 [facility] 3A [place] [address] Cardiology 04/29/21 Jalen Ibarra [address] [place] [address] 210 [place] [address] Urology 04/29/21 Jose G Nichole [address] [place] [address] Pain Management 04/29/21 OsmanJaguar L 3373 [facility] 2 [place] [address] Orthopedics 04/29/21 Erik Guajardo 176 [facility] [place] [address] Pulmonary Disease 04/29/21 Research Neuropsychologist Relationship Specialty Start Date End Date George Vaughan MD [address] [place] [address] PCP - General Family Medicine 11/04/15 Flip Kramer 176 [facility] [address] [place] [address] Cardiology 04/29/21 Jalen Ibarra [address] [place] [address] Urology 04/29/21 DionisioKavya zhongar [address] [place] [address] Pain Management 04/29/21 [address]ar [address] [place] [address] [place] [address] Orthopedics 04/29/21 Erik Guajardo [address] [place] [address] Pulmonary Disease 04/29/21 Research Neuropsychologist Relationship Specialty Start Date End Date George Vaughan MD [address] [place] [address] PCP - General Family Medicine 11/04/15 Flip Kramer [address] [facility] [address] [place] [place] [address] Cardiology 04/29/21 Jalen Ibarra [address] [place] [address] Urology 04/29/21 DionisioJose G zhong [address] [place] [address] Pain Management 04/29/21 Jaguar Osman [address] [place] [address] [place] [address] [phone] Orthopedics 04/29/21 Erik Guajardo [address] [place] [address] Pulmonary Disease 04/29/21 Research Neuropsychologist Relationship Specialty Start Date End Date George Vaughan MD [address] [place] [address] PCP - General Family Medicine 11/04/15 Flip Kramer [address] [place] [address] [place] [address] Cardiology 04/29/21 Jalen Ibarra Miguel [address] [address] [place] [address] Urology 04/29/21 Jose G Nichole [address] [place] [address] Pain Management 04/29/21 Jaguar Osman [facility] [facility] [place] [address] [place] [address] Orthopedics 04/29/21 Erik Guajardo [address] [place] [address] Pulmonary Disease 04/29/21 Research Neuropsychologist Relationship Specialty Start Date End Date George Vaughan MD [address] [place] [address] PCP - General Family Medicine 11/04/15 Flip Kramer [address] [place] [address] [place] [address] Cardiology 04/29/21 Jalen Ibarra Miguel [address] [address] [place] [address] Urology 04/29/21 Jose G Nichole [address] [place] [address] Pain Management 04/29/21 Jaguar Osman [address] [facility] 2 [place] [phone] Orthopedics 04/29/21 Erik Guajardo [address] [place] [address] Pulmonary Disease 04/29/21 Research Neuropsychologist Relationship Specialty Start Date End Date George Vaughan MD [address] [place] [address] PCP - General Family Medicine 11/04/15 Flip Kramer [address] [place] [address] [place] [address] Cardiology 04/29/21 Jalen Ibarra MD 546 [facility] 210 [place] [address] Urology 04/29/21 Jose G Nichole [address] [place] [address] Pain Management 04/29/21 Jaguar Osman [address] [facility] 2 [place] [address] Orthopedics 04/29/21 Erik Guajardo [address] [place] [address] Pulmonary Disease 04/29/21 Research Neuropsychologist Relationship Specialty Start Date End Date George Vaughan MD [address] [place] [address] PCP - General Family Medicine 11/04/15 Flip Kramer [address] [place] [address] [place] [address] Cardiology 04/29/21 Jalen Ibarra MD [address] [address] [place] [address] Urology 04/29/21 Jose G Nichole [address] [place] [address] Pain Management 04/29/21 Jaguar Osman [address] [place] [address] [place] [address] Orthopedics 04/29/21 Erik Guajardo [address] [place] [address] Pulmonary Disease 04/29/21 Research Neuropsychologist Relationship Specialty Start Date End Date George Vaughan MD [address] [place] [address] PCP - General Family Medicine 11/04/15 Flip Kramer [address] [place] [address] [place] [address] Cardiology 04/29/21 Jalen Ibarra MD [address] [place] [address] Urology 04/29/21 Jose G Nichole [address] [place] [address] Pain Management 04/29/21 OsmanJaguar mosley [address] [place] [address] [place] [address] Orthopedics 04/29/21 Erik Guajardo [address] [place] [address] Pulmonary Disease 04/29/21 Team Status: Active Member Role Status Dates Dr. George Vaughan MD Family Provider Active Dr. George Vaughan MD Primary Care Provider Active Team Status: Inactive Member Role Status Dates Dr. George Vaughan MD Primary Care Provider, Referr ing Provider Active Mallorie Santos PA, PA Attending Provider Active Team Status: Active Member Role Status Dates Dr. George Vaughan MD Primary Care Provider Active Dr. Flip Kramer MD Attending Provider Active Team Status: Active Member Role Status Dates Dr. George Vaughan MD Primary Care Provider Active Mallorie Santos PA, PA Other Provider Active Dr. Flip Kramer MD Attending Provider Active Team Status: Inactive Member Role Status Dates Dr. George Vaughan MD Primary Care Provider Active Mallorie Santos PA, PA Attending Provider, Referr ing Provider Active Team Status: Inactive Member Role Status Dates Dr. George Vaughan MD Primary Care Provider Active Dr. Flip Kramer MD Attending Provider, Referring Provider Active Team Status: Inactive Member Role Status Dates Dr. George Vaughan MD Primary Care Provider Active Mallorie Santos PA, PA Attending Provider Active Team Status: Active Member Role Status Dates Dr. George Vaughan MD Primary Care Provider Active Mallorie Santos PA, PA Attending Provider Active Research Neuropsychologist Relationship Specialty Start Date End Date George Vaughan MD [address] [place] [address] PCP - General Family Medicine 11/04/15 Flip Kramer 1761 [facility] 3A [place] [address] Cardiology 04/29/21 Jalen Ibarra MD 546 [facility] 210 [place] [address] Urology 04/29/21 Jose G Nichole [address] [place] [address] Pain Management 04/29/21 Jaguar Osman 3373 [facility] 2 [place] [address] Orthopedics 04/29/21 Erik Guajardo [facility] [facility] [place] [address] Pulmonary Disease 04/29/21 Team Status: Active Member Role Status Dates Dr. George Vaughan MD Primary Care Provider Active Mallorie Santos PA, PA Attending Provider, Referr ing Provider Active Team Status: Inactive Member Role Status Dates Dr. George Vaughan MD Primary Care Provider Active Haydee Lima NP-C Attending Provider, Referring Pro vider Active Research Neuropsychologist Relationship Specialty Start Date End Date George Vaughan MD [address] [place], [place] [address] PCP - General Family Medicine 11/04/15 Flip Kramer 176 [facility] 3A [place] [address] Cardiology 04/29/21 Jalen Ibarra MD [address] [place] [address] 210 [place], [place] 94[address] Urology 04/29/21 Dionisio Araiza [address] [place] [address] Pain Management 04/29/21 Jaguar Osman 3373 [facility] 2 [place] [address] Orthopedics 04/29/21 Erik Guajardo 1761 [facility] [place], [place] [address] Pulmonary Disease 04/29/21 Research Neuropsychologist Relationship Specialty Start Date End Date George Vaughan MD [address] [place] [address] PCP - General Family Medicine 11/04/15 Flip Kramer [address] [place] [address] Cardiology 04/29/21 Jalen Ibarra MD [address] [place] [address] 210 [place], [place] 90[address] Urology 04/29/[address] [place] [address] Pain Management 04/29/21 Jaguar Osman [address] [place] [address] [place] [phone] Orthopedics 04/29/21 Erik Guajardo [address] [facility] [place] [address] Pulmonary Disease 04/29/21 Research Neuropsychologist Relationship Specialty Start Date End Date George Vaughan MD [address] [place] [place] [address] PCP - General Family Medicine 11/04/15 Flip Kramer [address] [facility] 3A [place] [address] Cardiology 04/29/21 Jalen Ibarra MD 546 [facility] 210 [place] [address] Urology 04/29/21 Dionisio Araiza [address] [place] [address] Pain Management 04/29/21 Jaguar Osman 3373 [facility] 2 [place] [address] Orthopedics 04/29/21 Erik Guajardo MD 1761 [place] [address] Pulmonary Disease 04/29/21 Research Neuropsychologist Relationship Specialty Start Date End Date George Vaughan MD [address] [place] [address] PCP - General Family Medicine 11/04/15 Flip Kramer 1761 [facility] 3A [place] [address] Cardiology 04/29/21 Jalen Ibarra MD [address] [address] Urology 04/29/21 Dionisio Araiza [address] [place] [address] Pain Management 04/29/21 Jaguar Osman 3373 [facility] 2 [place] [address] Orthopedics 04/29/21 Erik Guajardo MD 176 [facility] [place] [address] Pulmonary Disease 04/29/21 Research Neuropsychologist Relationship Specialty Start Date End Date George Vaughan MD [address] [place] [address] PCP - General Family Medicine 11/04/15 Flip Kramer 176 [facility] 3A [place] [address] Cardiology 04/29/21 Jalen Ibarra MD [address] [place] [address] 210 [place] [address] Urology 04/29/21 Dionisio Araiza [address] [place] [address] Pain Management 04/29/21 Jaguar Osman 3373 [facility] 2 [place] [address] Orthopedics 04/29/21 Erik Guajardo MD 176 [facility] [place] [address] Pulmonary Disease 04/29/21 Research Neuropsychologist Relationship Specialty Start Date End Date George Vaughan MD [address] [place] [address] PCP - General Family Medicine 11/04/15 Flip Kramer 176 [facility] 3[address] [place] [address] Cardiology 04/29/21 Jalen Ibarra MD 546 [facility] 210 [place], [place] 050831 Urology 04/29/21 Dionisio Araiza [address] [place], [place] 214[address] Pain Management 04/29/21 Jaguar Osman [address] [place] [address] [place] [address] Orthopedics 04/29/21 Erik Guajardo MD 1761 [facility] [place] [address] Pulmonary Disease 04/29/21 Research Neuropsychologist Relationship Specialty Start Date End Date George Vaughan MD [address] [place] [address] PCP - General Family Medicine 11/04/15 Flip Kramer 1761 [facility] 3A [place] [address] Cardiology 04/29/21 Jalen Ibarra MD [address] [place] [address] Urology 04/29/21 Jose G Dionisio [address] [place] [address] Pain Management 04/29/21 Jaguar Osman [address] [place] [address] [place] [address] Orthopedics 04/29/21 Erik Guajardo MD 1761 [facility] [place], [place] [address] Pulmonary Disease 04/29/21 Research Neuropsychologist Relationship Specialty Start Date End Date George Vaughan MD [address] [facility], [place] [address] PCP - General Family Medicine 11/04/15 Flip Kramer 1761 [facility] 3A [place] [address] Cardiology 04/29/21 Jalen Ibarra MD 546 [facility] 210 [place], [place] 9941[address] Urology 04/29/21 Dionisio Araiza [address] [place] [address] Pain Management 04/29/21 Jaguar Osman [address] [place] [address] [place] [address] Orthopedics 04/29/21 Erik Guajardo MD 176 [facility] [place] [address] Pulmonary Disease 04/29/21 Team Status: Inactive Member Role Status Dates Dr. George Vaughan MD Primary Care Provider Active Dr. Claire Hines DO Emergency Provider Active Team Status: Inactive Member Role Status Dates Dr. George Vaughan MD Primary Care Provider Active Bob Rodriguez MD Attending Provider, Emergency Provid er Active Team Status: Inactive Member Role Status Dates Dr. George Vaughan MD Primary Care Provider Active Dr. Claire Hines DO Attending Provider, Emergency P placido Active Team Status: Active Member Role Status Dates Dr. George Vaughan MD Primary Care Provider Active Dr. Angel Mix DO Emergency Provider Active Dr. Juan Pike MD Admit Provider, Attending Prov ider Active Team Status: Active Member Role Status Dates Dr. George Vaughan MD Primary Care Provider Active Dr. Angel Mix DO Emergency Provider Active Dr. Juan Pike MD Admit Provider, Attending Provider, Other Provider Active Team Status: Active Member Role Status Dates Dr. George Vaughan MD Primary Care Provider Active Dr. Angel Mix DO Emergency Provider Active Dr. Juan Pike MD Admit Provider, Other Provider Active Dr. Nini Brown MD Attending Provider, Other Prov ider Active Team Status: Active Member Role Status Dates Dr. George Vaughan MD Primary Care Provider Active Dr. Angel Mix DO Emergency Provider Active Dr. Juan Pike MD Admit Provider, Other Provider Active Dr. Nini Brown MD Other Provider Active Dr. Sidney Arguello MD Attending Provider Active Team Status: Inactive Member Role Status Dates Dr. Georeg Vaughan MD Primary Care Provider Active Dr. Angel Mix DO Emergency Provider Active Dr. Juan Pike MD Admit Provider, Other Provider Active Dr. Nini Brown MD Attending Provider Active Research Neuropsychologist Relationship Specialty Start Date End Date George Vaughan MD [address] [place] [address] PCP - General Family Medicine 11/04/15 [place] [address] [place] [address] 3A [place], [place] 273851 Cardiology 04/29/21 Jalen Ibarra MD [address] [place] [address] 210 [place] [address] Urology 04/29/21 Dionisio Araiza [address] [place] [address] Pain Management 04/29/21 Jaguar sOman 3373 [facility] 2 [place] [phone] Orthopedics 04/29/21 Erik Guajardo MD 176 [facility] [place] [address] Pulmonary Disease 04/29/21 Research Neuropsychologist Relationship Specialty Start Date End Date George Vaughan MD [address] [place] [address] PCP - General Family Medicine 11/04/15 Flip Kramer MD 176 [facility] [place] [address] [place] [address] Cardiology 04/29/21 Jalen Ibarra MD [address] [place] [address] Urology 04/29/21 Dionisio Araiza [address] [place], [place] 6317557 Pain Management 04/29/21 Jaguar Osman 3373 [facility] 2 [place] [phone] Orthopedics 04/29/21 Erik Guajardo MD [address] [address] Pulmonary Disease 04/29/21 Research Neuropsychologist Relationship Specialty Start Date End Date George Vaughan MD [address] [place] [address] PCP - General Family Medicine 11/04/15 Flip Kramer MD [address] [facility] 3A [place] [address] Cardiology 04/29/21 Jalen Ibarra MD 546 [facility] 210 [place] [address] Urology 04/29/21 Dionisio Araiza [facility] [address] [place] [address] Pain Management 04/29/21 Jaguar Osman 3373 [facility] 2 [place] [address] Orthopedics 04/29/21 Erik Guajardo MD 176 [facility] [place] [address] Pulmonary Disease 04/29/21 Team Status: Active Member Role Status Dates Dr. George Vaughan MD Primary Care Provider Active Cale Keys LEGAL EXECUTIVE ASSISTANT, LEGAL EXECUTIVE ASSISTANT-C Attending Provider Active Team Status: Inactive Member Role Status Dates Dr. George Vaughan MD Primary Care Provider Active LEGAL EXECUTIVE ASSISTANT. Kayleigh Riddle Attending Provider, Referring Provid er Active Team Status: Inactive Member Role Status Dates Dr. George Vaughan MD Primary Care Provider Active Dr. Jaguar Tristan MD Attending Provider, Referring Provider Active Research Neuropsychologist Relationship Specialty Start Date End Date George Vaughan MD [address] [place] [address] PCP - General Family Medicine 11/04/15 Flip Kramer MD [address] [place] [address] Cardiology 04/29/21 Jalen Ibarra MD 546 [facility] 210 [place] [address] Urology 04/29/21 [facility]mac[facility]ilion clinicDionisio wilson [address] [place] [address] Pain Management 04/29/21 Jaguar Osman 3373 [facility] 2 [place] [phone] Orthopedics 04/29/21 Erik Guajardo MD [address] [facility] [place] [address] Pulmonary Disease 04/29/21 Research Neuropsychologist Relationship Specialty Start Date End Date George Vaughan MD [address] [place] [address] PCP - General Family Medicine 11/04/15 Flip Kramer MD 176 [facility] 3A [place] [address] Cardiology 04/29/21 Jalen Ibarra MD [address] [place] [address] Urology 04/29/21 Dionisio Araiza [address] [place] [address] Pain Management 04/29/21 Jaguar Osman [address] [facility] [place] [address] [place] [phone] Orthopedics 04/29/21 Erik Guajardo MD [address] [place] [address] Pulmonary Disease 04/29/21 Research Neuropsychologist Relationship Specialty Start Date End Date George Vaughan MD [address] [place] [address] PCP - General Family Medicine 11/04/15 Flip Kramer MD [address] [place] [address] Cardiology 04/29/21 Jalen Ibarra MD [address] [place] [address] 210 [place] [address] Urology 04/29/21 Dion[address] [place] [address] Pain Management 04/29/21 Jaguar Osman 3373 [facility] 2 [place] [address] Orthopedics 04/29/21 Erik Guajardo MD [address] [place] [address] Pulmonary Disease 04/29/21 Research Neuropsychologist Relationship Specialty Start Date End Date George Vaughan MD [address] [place] [address] PCP - General Family Medicine 11/04/15 Flip Kramer MD [address] [place] [address] [place] [address] Cardiology 04/29/21 Jalen Ibarra MD 546 [facility] 210 [place] [address] Urology 04/29/21 Omacarilion clinicDionisio wilson [address] [place] [address] Pain Management 04/29/21 Jaguar Osman 3373 [facility] 2 [place] [phone] Orthopedics 04/29/21 Erik Guajardo MD [address] [place] [address] Pulmonary Disease 04/29/21 Research Neuropsychologist Relationship Specialty Start Date End Date George Vaughan MD [address] [place] [address] PCP - General Family Medicine 11/04/15 Flip Kramer MD [address] [facility] 3A [place] [address] Cardiology 04/29/21 Jalen Ibarra MD 546 [facility] 210 [place] [address] Urology 04/29/21 [facility]anson[facility]ly wilsonry [address] [place] [address] Pain Management 04/29/21 Jaguar Osman 3373 [facility] 2 [place] [phone] Orthopedics 04/29/21 Erik Guajardo MD 176 [facility] [place] [address] Pulmonary Disease 04/29/21 Research Neuropsychologist Relationship Specialty Start Date End Date George Vaughan MD [address] [place] [address] PCP - General Family Medicine 11/04/15 Flip Kramer MD 176 [facility] 3A [place] [address] Cardiology 04/29/21 Jalen Ibarra MD [address] [place] [address] 210 [place], [place] [address] Urology 04/29/21 Dionisio Araiza [address] [place] [address] Pain Management 04/29/21 Jaguar Osman 3373 [facility] 2 [place] [phone] Orthopedics 04/29/21 Erik Guajardo MD [address] [facility] [place] [address] Pulmonary Disease 04/29/21 Research Neuropsychologist Relationship Specialty Start Date End Date George Vaughan MD [address] [place] [address] PCP - General Family Medicine 11/04/15 Flip Kramer MD [address] [place] [address] Cardiology 04/29/21 Jalen Ibarra MD 546 [facility] 210 [place] [address] Urology 04/29/21 Dionisio Araiza [address] [place] [address] Pain Management 04/29/21 Jaguar Osman 3373 [facility] [place] [address] [place] [address] Orthopedics 04/29/21 Erik Guajardo MD [address] [place] [address] Pulmonary Disease 04/29/21 Research Neuropsychologist Relationship Specialty Start Date End Date George Vaughan MD [address] [place] [address] PCP - General Family Medicine 11/04/15 Flip Kramer MD [address] [place] [address] [place] [address] Cardiology 04/29/21 Jalen Ibarra MD 546 [facility] 210 [place] [address] Urology 04/29/21 Dionisio Araiza [address] [place] [address] Pain Management 04/29/21 Jaguar Osman 3373 [facility] 2 [place] [phone] Orthopedics 04/29/21 Erik Guajardo MD 176 [facility] [place] [address] Pulmonary Disease 04/29/21 Research Neuropsychologist Relationship Specialty Start Date End Date George Vaughan MD [address] [place] [address] PCP - General Family Medicine 11/04/15 Flip Kramer MD 176 [facility] 3A [place] [address] Cardiology 04/29/21 Jalen Ibarra MD [address] [place] [address] 210 [place] [address] Urology 04/29/21 Dionisio Araiza [address] [facility] [place], [place] [address]254[address] Pain Management 04/29/21 Jaguar Osman 3373 [facility] 2 [place] [phone] Orthopedics 04/29/21 Erik Guajardo MD 176 [facility] [place] [address] Pulmonary Disease 04/29/21 Research Neuropsychologist Relationship Specialty Start Date End Date George Vaughan MD [address] [place] [address] PCP - General Family Medicine 11/04/15 Research Neuropsychologist Relationship Specialty Start Date End Date George Vaughan MD [address] [place] [address] PCP - General Family Medicine 11/04/15 Flip Kramer MD 176 [facility] 3A [place] [address] Cardiology 04/29/21 Jalen Ibarra MD [address] [place] [address] 210 [place] [address] Urology 04/29/21 Dionisio Araiza [address] [place] [address] Pain Management 04/29/21 Jaguar Osman 3373 [facility] 2 [place] [phone] Orthopedics 04/29/21 Erik Guajardo MD 176 [facility] [place] [address] Pulmonary Disease 04/29/21 Research Neuropsychologist Relationship Specialty Start Date End Date George Vaughan MD [address] [place] [address] PCP - General Family Medicine 11/04/15 Flip Kramer MD 176 [facility] 3A [place], [place] [address]041 Cardiology 04/29/21 Jalen Ibarra MD 546 [facility] 210 [place], [place] 886561 Urology 04/29/21 Jose G Dionisio [address] [place] [address] Pain Management 04/29/21 Jaguar Osman [address] [place] [address] [place] [phone] Orthopedics 04/29/21 Erik Guajardo MD 1761 [facility] [place] [address] Pulmonary Disease 04/29/21 Research Neuropsychologist Relationship Specialty Start Date End Date George Vaughan MD [address] [place], [place] 379351 PCP - General Family Medicine 11/04/15 Flip Kramer MD 1761 [facility] 3A [place] [address] Cardiology 04/29/21 Jalen Ibarra MD [address] [address] Urology 04/29/21 Jose G Dionisio [address] [place] [address] Pain Management 04/29/21 Jaguar Osman [address] [place] [address] [place] [phone] Orthopedics 04/29/21 Erik Guajardo MD [address] [place], [place] [address]31 Pulmonary Disease 04/29/21 Research Neuropsychologist Relationship Specialty Start Date End Date George Vaughan MD [address]40 [place] [address] PCP - General Family Medicine 11/04/15 Flip Kramer MD [address] [facility] 3A [place], [place] 845481 Cardiology 04/29/21 Jalen Ibarra MD [address] [place] [address] 210 [place], [place] 644281 Urology 04/29/21 Dionisio Araiza [address] [place] [address] Pain Management 04/29/21 Jaguar Osman 3373 [facility] 2 [place] [phone] Orthopedics 04/29/21 Erik Guajardo MD [address] [address] Pulmonary Disease 04/29/21 Delia Waterman APRN.FORM [employer]TER [employer] [address]40 [place] [address] Compensation Adjuster Family Medicine 04/28/24 Research Neuropsychologist Relationship Specialty Start Date End Date George Vaughan MD [address]40 [place] [address] PCP - General Family Medicine 11/04/15 Flip Kramer MD 176 [facility] 3A [place] [address] Cardiology 04/29/21 Jalen Ibarra MD [address] [place] [address] 210 [place] [address] Urology 04/29/21 Dionisio Araiza [facility] [place] [address] Pain Management 04/29/21 Jaguar Osman 3373 [facility] 2 [place] [phone] Orthopedics 04/29/21 Erik Guajardo MD 176 [facility] [place] [address] Pulmonary Disease 04/29/21 Delia Waterman APRN.FORM [employer] [address] [place] [address] Compensation Adjuster Family Medicine 04/28/24 Research Neuropsychologist Relationship Specialty Start Date End Date George Vaughan MD [address] [place] [address] PCP - General Family Medicine 11/04/15 Flip Kramer MD 176 [facility] 3A [place] [address] Cardiology 04/29/21 Jalen Ibarra MD [address] [address] Urology 04/29/21 OmanoheliaLoveDionisio [address] [place] [address] Pain Management 04/29/21 Jaguar Osman 3373 [facility] 2 [place] [phone] Orthopedics 04/29/21 Erik Guajardo MD 1761 [place] [address] Pulmonary Disease 04/29/21 Delia Waterman APRN.FORM [employer] [address] [place] [address] Compensation Adjuster Family Medicine 04/28/24 Research Neuropsychologist Relationship Specialty Start Date End Date George Vaughan MD [address] [place] [address] PCP - General Family Medicine 11/04/15 Flip Kramer MD 1761 [facility] [address]A [place] [address] Cardiology 04/29/21 Jalen Ibarra MD [address] 973011 Urology 04/29/21 Love Araizachary [address] [place] [address] Pain Management 04/29/21 Jaguar Osman 3373 [facility] 2 [place] [phone] Orthopedics 04/29/21 Erik Guajardo MD 1761 [facility] [place] [address] Pulmonary Disease 04/29/21 Delia Waterman APRN.FORM [employer] [address] [place] [address] Compensation Adjuster Family [facility] 04/28/24 Zander Chavez APRN.FORM [employer] [address] [place] [address] Compensation Adjuster [facility] 05/07/24 Research Neuropsychologist Relationship Specialty Start Date End Date George Vaughan MD [address] [place] [address] PCP - General Family Medicine 11/04/15 Flip Kramer MD 1761 [facility] 3A [place] [address] Cardiology 04/29/21 Jalen Ibarra MD [address] [place] [address] 210 [place] [address] Urology 04/29/21 [place] [address] Pain Management 04/29/21 Jaguar Osman 3373 [facility] 2 [place] [phone] Orthopedics 04/29/21 Erik Guajardo MD [address]61 [facility] [place] [address] Pulmonary Disease 04/29/21 Delia Waterman APRN.FORM [employer] [address] [place] [address] Compensation Adjuster Family [facility] 04/28/24 Zander Chavez APRN.FORM [employer] [address] [place] [address] Compensation Adjuster [facility] 05/07/24 Research Neuropsychologist Relationship Specialty Start Date End Date George Vaughan MD [address] [place] [address] PCP - General Family Medicine 11/04/15 Flip Kramer MD 176 [facility] 3A [place] [address] Cardiology 04/29/21 Jalen Ibarra MD [address] [place] [address] 210 [place] [address] Urology 04/29/21 Dionisio [place] [address] Pain Management 04/29/21 [place] [address] [place] [address] 2 [place] [phone] Orthopedics 04/29/21 Erik Guajardo MD 1761 [facility] [place] [address] Pulmonary Disease 04/29/21 Delia Waterman APRN.FORM [employer] [address] [place] [address] Compensation Adjuster Family [facility] 04/28/24 Zander Chavez APRN.FORM [employer] [address] [place] [address] Compensation Adjuster [facility] 05/07/24 Team Status: Active Member Role Status Dates Dr. George Vaughan MD Primary Care Provider Active Start: July 28, 2024 Dr. David Doll MD Emergency Provider Active S tart: July 28, 2024 Dr. Nini Brown MD Admit Provider Active St art: July 28, 2024 Dr. Nini Brown MD Attending Provider Active Start: July 28, 2024 Research Neuropsychologist Relationship Specialty Start Date End Date George Vaughan MD [address] [place], [place] [id number] PCP - General Family Medicine 11/04/15 Flip Kramer MD 1761 [facility] 3A [place] [address] Cardiology 04/29/21 Jalen Ibarra MD 546 [facility] 210 [place], [place] 832061 Urology 04/29/21 Dionisio Araiza [address] [place] [address] Pain Management 04/29/21 Jaguar Osman DO 3373 [facility] 2 [place] [phone] Orthopedics 04/29/21 Erik Guajardo MD 1761 [facility] [place] [address] Pulmonary Disease 04/29/21 Delia Waterman APRN.FORM [employer] [address] [place] [address] Compensation Adjuster Family Medicine 04/28/24 Zander Chavez APRN.FORM [employer] [address] [place] [address] Compensation Adjuster [facility] 05/07/24 Research Neuropsychologist Relationship Specialty Start Date End Date George Vaughan MD [address] [place] [address] PCP - General Family Medicine 11/04/15 Flip Kramer MD [address]61 [facility] 3A [place] [address] Cardiology 04/29/21 Jalen Ibarra MD [address] [place] [address] 210 [place] [address] Urology 04/29/21 Dionis[place] [address] Pain Management 04/29/21 Jaguar Osman DO [address] [facility] 2 [place] [phone] Orthopedics 04/29/21 Erik Guajardo MD 1761 [facility] [place] [address] Pulmonary Disease 04/29/21 Delia Waterman APRN.FORM [employer] [address] [place] [address] Compensation Adjuster Family [facility] 04/28/24 Zander Chavez APRN.FORM [employer] [address] [place] [address] Compensation Adjuster [facility] 05/07/24 Research Neuropsychologist Relationship Specialty Start Date End Date George Vaughan MD [address] [place] [address] PCP - General Family Medicine 11/04/15 Flip Kramer MD 176 [facility] 3A [place] [address] Cardiology 04/29/21 Jalen Ibarra MD [address] [place] [address] 210 [place] [address] Urology 04/29/21 Dionisio Araiza [address] [place] [address] Pain Management 04/29/21 Jaguar Osman DO 3373 [facility] 2 [place] [address] Orthopedics 04/29/21 Erik Guajardo MD [address]61 [facility] [place] [address] Pulmonary Disease 04/29/21 Delia Waterman APRN.FORM [employer] [address] [place] [address] [facility] 04/28/24 Zander Chavez APRN.FORM [employer] [address] [place] [address] [facility] 05/07/24 Research Neuropsychologist Relationship Specialty Start Date End Date George Vaughan MD [address] [place] [address] PCP - General Family Medicine 11/04/15 Flip Kramer MD 1761 [facility] 3A [place] [address] Cardiology 04/29/21 Jalen Ibarra MD 546 [facility] 210 [place], [place] 414661 Urology 04/29/21 Dionisio Araiza [address] [place] [address] Pain Management 04/29/21 Jaguar Osman DO 3373 [facility] 2 [place] [phone] Orthopedics 04/29/21 Erik Guajardo MD 1761 [facility] [place] [address] Pulmonary Disease 04/29/21 Delia Waterman APRN.FORM [employer] [address] [place] [address] Compensation Adjuster Family [facility] 04/28/24 Zander Chavez APRN.FORM SETTER [employer] [address] [facility] [place] [address] Compensation Adjuster [facility] 05/07/24 Research Neuropsychologist Relationship Specialty Start Date End Date George Vaughan MD [address] [place] [address] PCP - General Family Medicine 11/04/15 Flip Kramer MD [address] [facility] 3A [place] [address] Cardiology 04/29/21 Jalen Ibarra MD [address] [place] [address] 210 [place] [address] Urology 04/29/21 Dionisio Araiza [address] [place] [address] Pain Management 04/29/21 Jaguar Osman DO 3373 [facility] 2 [place] [phone] Orthopedics 04/29/21 Erik Guajardo MD [address] [place] [address] Pulmonary Disease 04/29/21 Delia Waterman APRN.FORM [employer] [address] [place] [address] Compensation Adjuster Family [facility] 04/28/24 Zander Chavez APRN.FORM [employer]TER [employer] [address] [place] [address] Compensation Adjuster Family Medicine 05/07/24 Research Neuropsychologist Relationship Specialty Start Date End Date George Vaughan MD [address] [place] [address] PCP - General Family Medicine 11/04/15 Flip Kramer MD 176 [facility] 3A [place] [address] Cardiology 04/29/21 Jalen Ibarra MD [address] [place] [address] 210 [place] [address] Urology 04/29/21 Dionisio Araiza [facility] [address] [place], [place] 1540057 Pain Management 04/29/21 Jaguar Osman DO 3373 [facility] 2 [place] [phone] Orthopedics 04/29/21 Erik Guajardo MD 176 [facility] [place] [address] Pulmonary Disease 04/29/21 Delia Waterman APRN.FORM [employer] 1761 [facility] [place] [address] Compensation Adjuster Family Medicine 04/28/24 Zander Chavez APRN.FORM [employer] [address] [place] [address] Compensation Adjuster Family [facility] 05/07/24 Research Neuropsychologist Relationship Specialty Start Date End Date George Vaughan MD [address] [place] [address]601 PCP - General Family Medicine 11/04/15 Flip Kramer MD [address] [facility] 3A [place] [address] Cardiology 04/29/21 Jalen Ibarra MD 546 [facility] 210 [place] [address] Urology 04/29/21 Dionisio Araiza [facility] [place] [address] Pain Management 04/29/21 Jaguar Osman DO 3373 [facility] 2 [place] [phone] Orthopedics 04/29/21 Erik Guajardo MD [address] [facility] [place] [address] Pulmonary Disease 04/29/21 Delia Waterman APRN.FORM [employer] [address] [place] [address] Compensation Adjuster Family Medicine 04/28/24 10/02/24 Zander Chavez APRN.FORM [employer] [address] [place] [address] Compensation Adjuster Family Medicine 05/07/24 Team Status: Inactive Member Role Status Dates Dr. George Vaughan MD Primary Care Provider Active Start: November 13, 2024 End: November 13, 2024 Dr. Petr Perry DO Emergency Provider Activ e Start: November 13, 2024 End: November 13, 2024 Research Neuropsychologist Relationship Specialty Start Date End Date George Vaughan MD [address] [place] [address] PCP - General Family Medicine 11/04/15 Flip Kramer MD 176 [facility] 3A [place] [address] Cardiology 04/29/21 Jalen Ibarra MD [address] [place] [address] 210 [place] [address] Urology 04/29/21 Dionisio Ara[address] [place], [place] 1155357 Pain Management 04/29/21 Jaguar Osman DO [address] [place] [address] [place] [phone] Orthopedics 04/29/21 Erik Guajardo MD 176 [facility] [place] [address] Pulmonary Disease 04/29/21 Zander Chavez APRN.FORM [employer] [address] [place] [address] Compensation Adjuster Family Medicine 05/07/24 Research Neuropsychologist Relationship Specialty Start Date End Date George Vaughan MD [address] [place] [address] PCP - General Family Medicine 11/04/15 Flip Kramer MD [address] [facility] 3A [place] [address] Cardiology 04/29/21 Jalen Ibarra MD 546 [facility] 210 [place] [address] Urology 04/29/21 Dionisio [place] [address] Pain Management 04/29/21 Jaguar Osman DO [address]373 [facility] 2 [place] [phone] Orthopedics 04/29/21 Erik Guajardo MD 176 [facility] [place] [address] Pulmonary Disease 04/29/21 Zander Chavez APRN.FORM [employer] [address] [place] [address] Compensation Adjuster Family Medicine 05/07/24 Research Neuropsychologist Relationship Specialty Start Date End Date George Vaughan MD [address] [place] [address] PCP - General Family Medicine 11/04/15 Flip Kramer MD [address] [facility] 3A [place] [address] Cardiology 04/29/21 Jalen Ibarra MD 546 [facility] 210 [place] [address] Urology 04/29/21 Dionisio Ara[address] [place], [place] 8753957 Pain Management 04/29/21 Jaguar Osman DO [address] [facility] 2 [place] [address] Orthopedics 04/29/21 Erik Guajardo MD [address] [facility] [place], [place] [address] Pulmonary Disease 04/29/21 Zander Chavez APRN.FORM [employer] [address] [place], [place] [id number] Compensation Adjuster Family Medicine 05/07/24 Team Status: Active Member Role/Relationship Status Dates Dr. George Vaughan MD Primary Care Provider Active Team Status: Inactive Member Role/Relationship Status Dates Dr. George Vaughan MD Primary Care Provider Active Start: November 13, 2024 End: November 13, 2024 Dr. Petr Perry , DO Attending Provider Activ e Start: November 13, 2024 End: November 13, 2024 Dr. Petr Perry DO Emergency Provider Activ e Start: November 13, 2024 End: November 13, 2024 Team Status: Inactive Member Role/Relationship Status Dates Dr. George Vaughan MD Primary Care Provider Active Start: November 29, 2024 End: November 29, 2024 Dr. George Vaughan MD Referring Provider Active Start: November 29, 2024 End: November 29, 2024 Harika Church LEGAL EXECUTIVE ASSISTANT, LEGAL EXECUTIVE ASSISTANT-C Attending Provider Active Start: November 29, 2024 End: November 29, 2024 Research Neuropsychologist Relationship Specialty Start Date End Date George Vaughan MD [address] [place], [place] [id number] PCP - General Family Medicine 11/04/15 Flip Kramre MD 1761 [facility] 3A [place] [address] Cardiology 04/29/21 Jalen Ibarra MD 546 [facility] 210 [place], [place] 4[address]01 Urology 04/29/21 Dionisio Araiza [address] [place] [address] Pain Management 04/29/21 Jaguar Osman DO [address] [facility] 2 [place] [phone] Orthopedics 04/29/21 Erik Guajardo MD 1761 [facility] [place] [address] Pulmonary Disease 04/29/21 Zander Chavez APRN.FORM [employer] [address] [place] [address] Compensation Adjuster Family Medicine 05/07/24 Team Status: Inactive Member Role/Relationship Status Dates Dr. George Vaughan MD Primary Care Provider Active Start: December 02, 2024 End: December 02, 2024 Dr. George Vaughan MD Referring Provider Active Start: December 02, 2024 End: December 02, 2024 Kristan Huber NP-C Attending Provider Active S tart: December 02, 2024 End: December 02, 2024 Research Neuropsychologist Relationship Specialty Start Date End Date George Vaughan MD [address] [place], [place] [id number] PCP - General Family Medicine 11/04/15 Flip Kramer MD 1761 [facility] 3A [place] [address] Cardiology 04/29/21 Jalen Ibarra MD 546 [facility] 210 [place] [address] Urology 04/29/21 Dionisio Araiza [address] [place] [address] Pain Management 04/29/21 Jaguar Osman DO 3373 [facility] 2 [place] [phone] Orthopedics 04/29/21 Erik Guajardo MD 1761 [facility] [place] [address] Pulmonary Disease 04/29/21 Zander Chavez APRN.FORM [employer] [address] [place] [address] Compensation Adjuster Family Medicine 05/07/24 Team Status: Inactive Member Role/Relationship Status Dates Dr. George Vaughan MD Primary Care Provider Active Start: December 06, 2024 End: December 06, 2024 Dr. George Vaughan MD Referring Provider Active Start: December 06, 2024 End: December 06, 2024 Dr. Josue Seals DO Attending Provider Active Start: December 06, 2024 End: December 06, 2024 Research Neuropsychologist Relationship Specialty Start Date End Date George Vaughan MD [address] [place] [address] PCP - General Family Medicine 11/04/15 Flip Kramer MD 1761 [facility] 3A [place] [address] Cardiology 04/29/21 Jalen Ibarra MD 546 [facility] 210 [place] [address] Urology 04/29/21 Dionisio Ara[address] [facility] [address] Pain Management 04/29/21 Jaguar Osman DO 3373 [facility] 2 [place] [phone] Orthopedics 04/29/21 Erik Guajardo MD 176 [facility] [place] [address] Pulmonary Disease 04/29/21 Zander Chavez APRN.FORM [employer] [address] [place] [address] Compensation Adjuster Family Medicine 05/07/24 Research Neuropsychologist Relationship Specialty Start Date End Date George Vaughan MD [address] [place] [address] PCP - General Family Medicine 11/04/15 Flip Kramer MD 176 [facility] 3A [place] [address] Cardiology 04/29/21 Jalen Ibarra MD 546 [facility] 210 [place] [address] Urology 04/29/21 OmaemperatrizDionisio wilson [address] [place], [place] 5191357 Pain Management 04/29/21 Jaguar Osman DO 3373 [facility] 2 [place] [phone] Orthopedics 04/29/21 Erik Guajardo MD [address]61 [facility] [place] [address] Pulmonary Disease 04/29/21 Zander Chavez APRN.[facility] [address] [place] [address] Compensation Adjuster Family Medicine 05/07/24 Research Neuropsychologist Relationship Specialty Start Date End Date George Vaughan MD [address] [place] [address] PCP - General Family Medicine 11/04/15 Flip Kramer MD [address]61 [facility] [address]A [place] [address] Cardiology 04/29/21 Jalen Ibarra MD [address] [place] [address] 210 [place] [address] Urology 04/29/21 Dionisio Araiza [address] [place] [address] Pain Management 04/29/21 Jaguar Osman DO [facility] [facility] [address] [place] [phone] Orthopedics 04/29/21 Erik Guajardo MD 1761 [facility] [place] [address] Pulmonary Disease 04/29/21 Zander Chavez APRN.[employer] [address] [place] [address] Compensation Adjuster Family Medicine 05/07/24 Team Status: Inactive Member Role/Relationship Status Dates Dr. George Vaughan MD Primary Care Provider Active Start: December 23, 2024 End: December 23, 2024 LYN Richards Attending Provider Active S tart: December 23, 2024 End: December 23, 2024 LYN Richards Referring Provider Active S tart: December 23, 2024 End: December 23, 2024 Research Neuropsychologist Relationship Specialty Start Date End Date George Vaughan MD [address] [place], [place] 125691 PCP - General Family Medicine 11/04/15 Flip Kramer MD 1761 [facility] [address]A [place] [address] Cardiology 04/29/21 Jalen Ibarra MD [address] [place] [address] 210 [place] [address] Urology 04/29/21 Dionis[place] [address] Pain Management 04/29/21 Jaguar Osman DO [address] [facility] 2 [place] [phone] Orthopedics 04/29/21 Erik Guajardo MD [address] [place] [address] Pulmonary Disease 04/29/21 Zander Chavez APRN.[employer] 1740 [facility], [place] [address] Compensation Adjuster Family Medicine 05/07/24 Team Status: Inactive Member Role/Relationship Status Dates Dr. George Vaughan MD Primary Care Provider Active Start: January 10, 2025 End: January 10, 2025 Dr. George Vaughan MD Referring Provider Active Start: January 10, 2025 End: January 10, 2025 Dr. Josue Seals DO Attending Provider Active Start: January 10, 2025 End: January 10, 2025 Team Status: Active Member Role/Relationship Status Dates Dr. George Vaughan MD Primary Care Provider Active Start: January 10, 2025 Dr. George Vaughan MD Referring Provider Active Start: January 10, 2025 Dr. Josue Seals DO Attending Provider Active Start: January 10, 2025 Dr. Josue Seals DO Other Provider Active St art: January 10, 2025 Goals (unrecognized section and content) Goals may be documented in a n alternate sectionGoals may be documented in an alternate sectionGoals may be documented in an alternate sectionGoals may be documented in an alternate sectionGoals may be documented in an alternate sectionGoals may be documented in an alternate sectionGoals may be documented in an alternate sectionGoals may be documented in an alternate sectionGoals may be documented in an alternate sectionGoals may be documented in an alternate sectionGoals may be documented in an alternate sectionGoals may be documented in an alternate sectionGoals may be documented in an alternate sectionGoals may be documented in an alternate sectionGoals may be documented in an alternate section (unrecognized sect ion and content) No Status Records FoundNo Status Records FoundNo Status Records Found INFORMATION SOURCE (unrecogn ized section and content) DATE CREATED AUTHOR 12/14/2024 [facility] DATE CREATED AUTHOR AUTHOR'S ORGANIZ ATION 01/06/2025 [facility] DATE CREATED AUTHOR AUTHOR'S AURY ATION 01/24/2025 [facility] FOR RECORDS PERTAINING TO PATIENTS WHO ARE OR HAVE BEEN ENROLLED IN A CHEMICAL DEPENDENCY/SUBSTANCEABUSE PROGRAM, SOME INFORMATION MAY BE OMITTED. This clinical summary was aggregated from multiple sources. Caution should be exercised in using it in the provision of clinical care. This summary normalizes information from multiple sources, and as a consequence, information in this document may materially change the coding, format and clinical context of patient data. In addition, data may be omitted in some cases. CLINICAL DECISIONS SHOULD BE BASED ON THE PRIMARY CLINICAL RECORDS. [employer] [facility]. provides no warranty or guarantee of the accuracy or completeness of information in this document.
== END 2025-01-27 22:15 | disposition home or self-care (01) ==
LOC: ED 21:59
PROVIDERS: Emergency Provider Emergency Medicine; PCP Family Medicine; Visit Provider Emergency Medicine
DX: B02.9 Zoster without complications (principal); I27.20 Pulmonary hypertension, unspecified; E11.9 Type 2 diabetes mellitus without complications; Z87.891 Personal history of nicotine dependence; E78.00 Pure hypercholesterolemia, unspecified; G47.33 Obstructive sleep apnea (adult) (pediatric); I25.10 Atherosclerotic heart disease of native coronary artery without angina pectoris; I10 Essential (primary) hypertension; K21.9 Gastro-esophageal reflux disease without esophagitis
CPT/HCPCS: 99282

== ENCOUNTER → 2025-04-15 | Outpatient (CLI) | payer MEDICARE, OTHER, SELFPAY ==
[2025-04-15 12:36] LABS: Hematocrit 38.9 % (40-54); Hemoglobin 12.9 g/dL (13.0-16.5); Immature Granulocytes Count 0.050 X10^3/uL (0.0-0.0); Mean Corp Hgb Conc 33.2 g/dL (32-36); Mean Corpuscular Volume 94.6 fL (80-94); Mean Platelet Vol. 10.0 fl (6.2-12.0); NRBC Flagged by Analyzer 0 % (0-5); Platelet Count 377 K/mm3 (150-450); RBC Distribution Width CV 12.9 % (11.6-14.6); RBC Distribution Width SD 44.4 fl (35.1-43.9); Red Blood Count 4.11 M/mm3 (4.6-6.2); White Blood Count 11.4 K/mm3 (4.4-11.0)
[2025-04-15 13:22] LABS: AST(SGOT) 27 U/L (<=37); Alanine Aminotransfer ALT/SGPT 21 U/L (<=46); Albumin, Serum 4.1 g/dL (3.4-4.8); Alkaline Phosphatase 112 U/L (40-129); Anion Gap 11 (5-15); BUN 19 mg/dL (4-19); BUN/Creat Ratio 17.4 RATIO (10-20); Calcium,Total 9.6 mg/dL (7.6-11.0); Carbon Dioxide 25.9 mmol/L (21.0-32.0); Chloride 100 mmol/L (98-108); Cholesterol 182 mg/dL (<=200); Globulin 3.5 g/dL (2.2-4.2); Glucose 74 mg/dL (70-99); Low Density Lipoprotein Calc. 102 mg/dL; Potassium 4.6 mmol/L (3.3-5.1); Pro- Brain NATRIURETIC PEPTIDE 272 pg/mL (<=1800); Triglycerides 152 mg/dL; Very Low Density Lipoprotein 30 mg/dL (5-40); cholesterol:hdl ratio screen 3.42
== END | disposition home or self-care (01) ==
LOC: LAB 12:17
PROVIDERS: PCP Family Medicine; Referring Provider Student in an Organized Health Care Education/Training Program; Visit Provider Student in an Organized Health Care Education/Training Program
DX: R42 Dizziness and giddiness (principal); I10 Essential (primary) hypertension; E78.5 Hyperlipidemia, unspecified; R06.02 Shortness of breath
CPT/HCPCS: 80053; 80061; 83880; 85025

== ENCOUNTER → 2025-04-29 | Outpatient (CLI) | payer MEDICARE, OTHER, SELFPAY ==
--- NOTE | 2025-04-29 06:43 | ECHOD_ITS ---
Reason For Study Reason For Study: DYSPNEA/SOB Procedure This was a 2D Doppler, Color Flow transthoracic echocardiogram. Exam performed in department. Left Ventricle Normal size left ventricle. Normal left ventricular wall thickness. Left ventricular EF by Hall's biplane: 60%. Diastolic function indeterminate. No regional wall motion abnormalities noted. Right Ventricle Normal right ventricle. Normal systolic function. RVSP unable to be determined, IVC not visualized. Atria The left and right atria are normal. Normal atrial septum. Mitral Valve Normal mitral valve. Trace mitral regurgitation. No mitral stenosis. Tricuspid Valve Normal tricuspid valve. Trace tricuspid regurgitation. No tricuspid stenosis. Aortic Valve Trileaflet aortic valve. Calcified right and noncoronary cusps. No hemodynamically significant aortic stenosis. No aortic regurgitation. Pulmonic Valve Normal pulmonic valve. No pulmonic regurgitation. No pulmonic stenosis. Great Vessels Normal sized aortic root. Normal ascending aorta. Pericardium/Pleural No pericardial effusion. Epicardial fat. MMode/2D Measurements & Calculations LVIDd: 5.2 cm IVSd: 1.0 cm Ao root diam: 3.1 cm LVIDs: 3.2 cm LVPWd: 1.0 cm RVDd: 3.7 cm FS: 38.1 % LAV(MOD-bp): 64.2 ml LVAd ap4: 27.3 cm2 LVAd ap2: 22.7 cm2 LAV(MOD-bp) Indexed: 28.7 ml/m2 LVLd ap4: 7.7 cm LVLd ap2: 7.4 cm LAV(MOD-sp2): 60.1 ml EDV(MOD-sp4): 81.2 ml EDV(MOD-sp2): 59.3 ml LAV(MOD-sp4): 60.1 ml EDV(sp4-el): 81.7 ml EDV(sp2-el): 59.1 ml LVAs ap4: 15.5 cm2 LVAs ap2: 13.8 cm2 LVLs ap4: 6.1 cm LVLs ap2: 6.9 cm ESV(MOD-sp4): 32.5 ml ESV(MOD-sp2): 24.3 ml ESV(sp4-el): 33.2 ml ESV(sp2-el): 23.5 ml EF(MOD-sp4): 60.0 % EF(MOD-sp2): 58.9 % EF(sp4-el): 59.4 % SV(MOD-sp4): 48.8 ml SV(MOD-sp2): 34.9 ml SV(sp4-el): 48.5 ml SI(MOD-sp4): 21.8 ml/m2 SI(MOD-sp2): 15.6 ml/m2 LA A4 area: 21.6 cm2 LA dimension(2D): 4.0 cm RA A4 area: 21.7 cm2 TAPSE: 2.3 cm Time Measurements MV dec time: 0.22 sec Doppler Measurements & Calculations MV E max eduardo: 59.2 cm/sec Lat Peak E' Eduardo: 5.4 cm/sec Med Peak E' Eduardo: 6.4 cm/sec MV A max eduardo: 81.0 cm/sec E/E' lat: 10.9 E/E' med: 9.3 MV E/A: 0.73 MV V2 max: 99.2 cm/sec MV P1/2t max eduardo: 73.1 cm/sec Ao V2 max: 124.1 cm/sec MV max P.9 mmHg MV P1/2t: 72.9 msec Ao max P.2 mmHg MV V2 mean: 48.2 cm/sec Ao V2 mean: 81.2 cm/sec MV mean P.1 mmHg MV dec slope: 293.7 cm/sec2 Ao mean P.1 mmHg MV V2 VTI: 29.9 cm MVA(P1/2t): 3.0 cm2 Ao V2 VTI: 29.1 cm AV (velocity ratio): 0.58 LV V1 max: 79.3 cm/sec PA V2 max: 101.9 cm/sec TR max eduardo: 307.2 cm/sec LV V1 max P.5 mmHg TR max P.7 mmHg LV V1 mean P.2 mmHg LV V1 mean: 51.6 cm/sec LV V1 VTI: 16.9 cm ECHO/Echo Complete Interpretation Summary Normal left ventricular systolic function with EF by Hall's biplane: 60% Diastolic function indeterminate No regional wall motion abnormalities noted Normal right ventricular systolic function No hemodynamically significant valvular disease Ordering Physician: Mark Schroeder Referring Physician: PAOLA PCP Performed By: Mari Lance, JJ, RVT
--- NOTE | 2025-04-29 06:43 | CDU_ITS ---
Reason For Study Reason For Study: LIGHTHEADEDNESS Rt. Velocities/BP Lt. Velocities/BP Prox CCA 99.6/7.3 cm/sec. Prox CCA 126.4/16.7 cm/sec. Mid CCA 90.8/9.5 cm/sec. Mid CCA 121.6/10.2 cm/sec. Dist CCA 84.2/10.6 cm/sec. Dist CCA 87.9/10.6 cm/sec. Prox ICA 55.6/9.5 cm/sec. Prox ICA 66.6/11.3 cm/sec. Mid ICA 54.1/10.1 cm/sec. Mid ICA 71.1/13.4 cm/sec. Dist ICA 103.0/11.2 cm/sec. Dist ICA 62.5/10.9 cm/sec. Rt. ICA/CCA = 103.0/90.8=1.1. Lt. ICA/CCA = 71.1/121.6=0.6. Prox ECA 89.7/7.3 cm/sec. Prox ECA 116.2/6.6 cm/sec. Rt. Vert. 23.5/7.5 cm/sec. Lt. Vert. 65.0/19.5 cm/sec. Right Extracranial There is homogeneous, smooth atherosclerotic plaque noted in the right common carotid artery. There is heterogeneous, irregular atherosclerotic plaque noted in the right internal carotid artery. The right internal carotid artery is very tortuous. There is heterogeneous, smooth atherosclerotic plaque noted in the right external carotid artery. Antegrade flow is noted in the right vertebral artery. Left Extracranial There is homogeneous, smooth atherosclerotic plaque noted in the left common carotid artery. There is heterogeneous, irregular atherosclerotic plaque noted in the left internal carotid artery. There is no significant atherosclerotic plaque noted in the left external carotid artery. Antegrade flow is noted in the left vertebral artery. Procedure Carotid Duplex 30371. This is a Carotid Duplex examination using B-mode, color flow and specral Doppler. The study was technically difficult. Exam performed in department. VL/Carotid Duplex Ultrasound Interpretation Summary Mild (<50%) stenosis right extracranial internal carotid. Mild (<50%) stenosis left extracranial internal carotid. Patent and antegrade vertebrals bilaterally. Ordering Physician: Mark Schroeder Referring Physician: PAOLA PCP Performed By: Mari Lance RDCS, RVT
--- OUTSIDE RECORDS SUMMARY | 2025-04-29 06:49 | XMS RPT_ITS | CCD ---
Author Organization [facility] Care Team Providers Care Candy Spreader Helper Name Role Phone G Nurse Unavailable Unavailable George Vaughan MD Primary Care Provider Flip Kramer Unavailable Jalen Ibarra Unavailable [phone] Jose G Nichole Unavailable Jaguar Osman Unavailable Erik Guajardo Unavailable George Vaughan MD Primary Care Provider Flip Kramer Unavailable Jalen Ibarra Unavailable Jose G Nichole Unavailable OsmanJaguar mosley Unavailable Erik Guajardo Unavailable Dr. George Vaughan Primary Care Provider [phone] Dr. Goerge Vaughan Referring Provider Danielle BAIRD, PA Mallorie Kim Attending Provider George Vaughan MD Primary Care Provider Flip Kramer Unavailable Jalen Ibarra Unavailable Jose G Nichole Unavailable Jaguar Osman Unavailable Erik Guajardo Unavailable Dr. Flip Kramer Attending Provider George Vaughan MD Primary Care Provider Flip Kramer Unavailable Jalen Ibarra MD Unavailable Jose G Nichole Unavailable Jaguar Osman Unavailable Erik Guajardo Unavailable Dr. George Vaughan Primary Care Provider Dr. Flip Kramer Attending Provider Dr. George Vaughan Referring Provider [place] PA, PA Mallorie Kim Attending Provider Santos PA, PA Mallorie Kim Other Provider Jalen Ibarra MD Unavailable Dionisio Araiza Unavailable Erik Guajardo Unavailable Erik Guajardo MD Unavailable Dr. George Vaughan Primary Care Provider Dr. George Vaughan Referring Provider Santos PA, PA Mallorie Kim Attending Provider Dr. George Vaughan Primary Care Provider Dr. Angel Mix Emergency Provider [phone] Dr. Juan Pike Admit Provider Unavailable Dr. Juan Pike Attending Provider Unavail Dr. Juan Roman Other Provider Unavailable Dr. Nini Brown Attending Provider [phone] Dr. Nini Brown Other Provider [phone] Sidney Arguello Attending Provider Flip Kramer MD Unavailable Dr. George Vaughan Primary Care Provider [phone] [facility] BEAD WRAPPER, BEAD WRAPPER-Nando Murrell Attending Provider George Vaughan MD Primary Care Provider Tannhof FIRE LIEUTENANT.FRONT DESK ADMINDelia Unavailable Scott FIRE LIEUTENANT.FRONT DESK ADMIN, Zander Unavailable Jaguar Osman DO Unavailable Alexus FUNEZ, Dr. Blanton Primary Care Provider [phone] Lavon FUNEZ, Dr. Hernandez Emergency Provider Maldonado FUNEZ, Dr. Nini Pineda Admit Provider Maldonado FUNEZ, Dr. Nini Pineda Attending Provider Maldonado FUNEZ, Dr. Nini Pineda Other Provider Deana HAY, Dr. Mccracken Attending Provider Maldonado FUNEZ, Dr. Nini Pineda Attending Provider Dr. Nawaf Leblanc DO Other Provider Darryl FUNEZ, Dr. Hutchins Attending Provider T[place] FIRE LIEUTENANT.FRONT DESK ADMIN, Delia Unavailable Tannhof FIRE LIEUTENANT.FRONT DESK ADMIN, Delia River Unavailable Orlando HAY, Dr. Humphreys Emergency Provider Dr. George Vaughan MD Primary Care Provider [phone] Dr. Petr Perry DO Attending Provider Dr. George Vaughan MD Referring Provider Ranjit AMEZQUITA-CHarika Attending Provider [phone] Mayo AMEZQUITA-Kristan Collier Attending Provider Dr. Josue Seals DO Attending Provider SHELDON SLATER Attending Unavailable SHELDON SLATER Admitting Unavailable GEORGE VAUGHAN Primary Care Unavailable Kristan August Referring Provider Dr. Josue Saels DO Other Provider Dr. Carlos Gaytan DO Emergency Provider [phone] Koram, Nini Miriam Attending Unavailable Koram, Nini Miriam Consulting Unavailable Koram, Nini Miriam Admitting Unavailable Elderbrock, George Primary Care Unavailable Friend, Josue Attending Unavailable Friend, Josue Consulting Unavailable Elderbrock, George Primary Care Unavailable Elderbrock, George Referring Unavailable Elderbrock, George Primary Care Unavailable Elderbrock, Geroge Referring Unavailable Kristan Huber Attending Unavailable Friend, Josue Attending Unavailable Elderbrock, George Primary Care Unavailable Elderbrock, George Referring Unavailable Nawaf Leblanc Attending Unavailable Koram, Nini Miriam Consulting Unavailable Koram, Nini Miriam Admitting Unavailable Elderbrock, George Primary Care Unavailable Petr Perry Attending Unavailabl e Elderamber, George Primary Care Unavailable Carlos Gaytan Attending Unavailable Elderbrock, George Primary Care Unavailable Friend, Josue Attending Unavailable Elderbrock, George Primary Care Unavailable Elderbrock, George Referring Unavailable Kristan Huber Attending Unavailable Elderbrock, George Primary Care Unavailable Kristan Huber Referring Unavailable Elderbrock, George Referring Unavailable Harika Church NP Attending Unavailable Elderbrock, George Primary Care Unavailable Luann Mcrae Attending Unavailable Elderbrock, George Primary Care Unavailable Elderbrock, George Referring Unavailable Nawaf Leblanc Attending Unavailable Deana Nawaf Consulting Unavailable Cuong Andrews Attending Unavailabl Dr. George Castro MD Primary Care Physician Orlando HAY, Dr. Humphreys Attending Physician Dr. Petr Perry DO Emergency Departmen t Physician Ranjit BEAD WRAPPER-CHarika Attending Physician Mayo AMEZQUITA-CKristan Attending Physician Bozena HAY, Dr. Salas Attending Physician Bozena HAY, Dr. Salas Nurse Practitioner Lucila HAY, Dr. Gonzalez Attending Physician Dr. Carlos Gaytan DO Emergency Department Physic tra Luann Alaniz Attending Physician [phone] DANNY NOVOA Attending Unavailable JESSY WELDON Referring Unavailable ELDERGEORGE ESTEVEZ Primary Care Unavailable LANDON STRANGE JR Attending Unavailable ELDERBROGEORGE ALVARADO Primary Care Unavailable JESSY WELDON Attending Unavailable ELDERBROCK, GEORGE Ruth Primary Care Unavailable ELDERBROCK, GEORGE D Primary Care Unavailable ELDERGEORGE ESTEVEZ Attending Unavailable SELF Referring Unavailable ELDERBROCK, GEORGE Miranda Primary Care Unavailable JESSY WELDON Attending Unavailable JESSY WELDON Referring Unavailable ELDERBROCK, GEORGE Ruth Primary Care Unavailable ELDERBROCK, GEORGE Miranda Referring Unavailable ELDERBROCK, GEORGE D Primary Care Unavailable SHELDON SLATER Attending Unavailable GEORGE VAUGHAN Primary Care Unavailable SHELDON SLATER Referring Unavailable ELDERVCIKIECKGEORGE Primary Care Unavailable GERTRUDE ALLEN Attending Unavailable ELDERBROCK, GEORGE Ruth Primary Care Unavailable ELDERBROCK, GEORGE D Primary Care Unavailable LANDON STRANGE JR Attending Unavailable ELDERGEORGE ESTEVEZ Primary Care Unavailable GERTRUDE ALLEN Attending Unavailable GEORGE VAUGHAN Referring Unavailable ELDERBROCK GOERGE Ruth Primary Care Unavailable ELDERVICKIECKGEORGE Attending Unavailable ELDERBROCK, GEORGE D Primary Care Unavailable Allergies Allergy Classification Reported Allergen(s) Allergy Type Date of Onset Reaction(s) Facility (1 source) acetaminophen / HYDROcodone drug allergy 1 Nightmares [facility] Work Phone: (1 source) Adrenergic Beta-Antagonists drug allergy 1 Sinus stephanie severe [facility] Work Phone: (1 source) atorvastatin drug allergy 1 Intolerance, Myalgias [facility] Work Phone: (1 source) gabapentin drug allergy 7 edema in hands, rash, elevated BP [facility] Work Phone: (20 sources) Acetaminophen / HYDROcodone; Translations: [HYDROCODONE-ACET AMINOPHEN] Drug Allergy 7 [facility] Work Phone: (20 sources) gabapentin; Translations: [GABAPENTIN] Drug Allergy 7 Swelling [facility] (20 sources) Orphenadrine; Translations: [ORPHENADRINE CITRATE] Drug Allergy 6 GI Upset [facility] (20 sources) oxyCODONE Drug Allergy 9 Mental Status Change [facility] (20 sources) pregabalin; Translations: [PREGABALIN] Drug Allergy 7 Swelling [facility] (20 sources) atorvastatin; Translations: [ATORVASTATIN] Drug Allergy 2 Intolerance,Natalie lgias [facility] (20 sources) HYDROcodone Drug Allergy 2 Other [facility] Comment on above: Severe nightmares (20 sources) Orphenadrine; Translations: [ORPHENADRINE] Drug Allergy 2 Unknown [facility] (1 source) atorvastatin Drug Allergy 5 [facility] (1 source) HYDROcodone Drug Allergy 5 [facility] (1 source) Orphenadrine Drug Allergy 5 [facility] (1 source) pregabalin Drug Allergy 5 [facility] Medications Current Medications Medication Drug Class(es) Dates Sig (Normalized) Sig (Original) acetaminophen 500 mg oral tablet (20 sources) Start: 06-17-2020 take 1 tablet by mouth every six hours as needed for pain Acetaminophen (Tylenol Extra Strength) 500 mg tablet Active 500 mg PO EVERY 6 HOURS as needed for Pain June 17, 2020 1:00am Complies with drug therapy Comment on above: Take 1 tablet by [...] 5-325 MG TABS As ne eded OXYCODONE-ACETAMINOPHEN [id number] Mallorie Santos PA-C Start: 09-13-2010 PERCOCET 5-325 MG TABS As needed OXYCODONE-ACETAMINOPHEN [id number] Radha Julio Rodriguez acyclovir 800 mg oral tablet (2 sources) Herpesvirus Nucleoside Analog DNA Polymerase Inhibitor, Herpes Simplex Virus Nucleoside Analog DNA Polymerase Inhibitor, Herpes Zoster Virus Nucleoside Analog DNA Polymerase Inhibitor Start: 01-27-2025 take 5 tablets by mouth every twenty-four hours Acyclovir 800 mg tablet Active 800 mg PO Q4H 36 6 0 January 27, 2025 12:00am while awake; give 5 doses in 24 hours Complies with drug therapy amLODIPine 5 mg oral tablet (20 sources) [...] One tablet by mouth daily AMLODIPINE BESYLATE [id number] Flip Kramer MD Start: 09-13-2010 End: 05-27-2024 [...] DAILY May 05, 2022 1:00am anti platelet Complies with drug therapy Start: 02-07-2022 End: 02-28-2022 take 1 tablet by mouth once daily clopidogrel (PLAVIX) 75 mg tablet Take 1 tablet by mouth once daily for 21 days. 21 tablet 0 02/07/2022 Active Start: 10-14-2010 End: 07-29-2015 take 1 tablet by mouth once daily PLAVIX 75 MG TABS One tablet by mouth daily CLOPIDOGREL BISULFATE [id number] Sheldon Saawnt MD Comment on above: Take 1 tablet by ella once daily for 21 days. Take 1 tablet by ella once daily. TAKE 1 TABLET BY ELLA EVERY DAY FLUoxetine 40 mg oral capsule (20 sources) Serotonin Reuptake Inhibitor Start: 07-04-2018 End: 02-28-2024 take 1 capsule by mouth once daily Fluoxetine (Prozac) 40 mg capsule Active 40 mg PO DAILY July 04, 2018 1:00am reflux Complies with drug therapy Start: 01-02-2018 End: 07-04-2018 take 1 capsule [...] One tablet by mouth daily FLUOXETINE HCL [id number] Flip Kramer MD Start: 09-13-2010 End: 09-28-2011 take 1 tablet by mouth once daily FLUOXETINE HCL 20 MG TABS One tablet by mouth daily FLUOXETINE HCL [id number] Flip Kramer MD Comment on above: Take 1 capsule by [facility] once daily. iv contrast (will be provided [...] CT contrast administration guidelines link. Magnesium Hydroxide (4 sources) take 30 mL by mouth once daily as needed magnesium hydroxide (TORRES MILK OF MAGNESIA PO) Take 30 mL by mouth once daily as needed. Active Multivitamin preparation ( sources) Start: 2021 take 1 tablet by [...] by ella th once daily. Multivitamin tablet (10 sources) Start: 02-08-2022 Multivitamin t ablet Active 1 {tbl} PO DAILY February 08, 2022 11:16am vitamin Complies with drug therapy Start: 02-08-2022 Multivitamin t ablet Active 1 [...] needed for pain April 16, 2023 1:00am Complies with drug therapy Start: 01-26-2020 End: 02-08-2022 take 1 tablet by mouth every six hours as needed for pain Oxycodone 5 MG tablet Discontinued 5 mg PO EVERY 6 HOURS NEEDED as needed for Pain Score 1-02/28January 26, 2020 12:00am February 08, 2022 11:17am Start: 09-18-2019 End: 01-24-2020 take 1 tablet by mouth once daily as needed for pain Oxycodone 5 mg tablet Discontinued 5 mg PO DAILY as needed for Pain Score 1-02/28 0 September 18, 2019 12:00am January 24, 2020 2:50pm Comment on above: EVERY 6 HOURS NEE DED pantoprazole 40 mg delayed release oral tablet (10 sources) Proton Pump Inhibitor Start: take 1 tablet by mouth twice daily pantoprazole DR (PROTONIX) 40 mg tablet Take 1 tablet by mouth two times a day. 30 minutes before eating. 02/04/2025 Active Start: 12-02-2024 End: 02-11-2025 take 1 tablet by mouth once daily Pantoprazole 20 mg tablet,delayed release (DR/EC) Discontinued 20 mg PO daily 90 3 December 02, 2024 12:00am February 11, 2025 3:07pm propranolol hydrochloride 20 mg oral tablet (20 sources) beta-Adrenergic Anderson Start: 05-16-2023 End: 05-27-2025 take 1 tablet by mouth twice daily Propranolol 20 mg tablet Active 20 mg PO TWICE A DAY November 29, 2024 8:00am blood pressure Complies with drug therapy Start: 04-16-2023 End: 11-29-2024 Propranolol 20 mg [...] 5-325 MG TABS as needed HYDROCODONE-ACETAM INOPHEN [id number] Flip Kramer MD aspirin 81 mg delayed [...] once daily. cephalexin 500 mg oral capsule (20 sources) Cephalosporin Antibacterial Start: 2 End: 2 [...] One tablet by mouth daily CITALOPRAM HYDROBROMIDE [id number] Flip Kramer MD Start: 09-28-2011 take 1 tablet by ella th once daily CITALOPRAM HYDROBROMIDE 10 MG TABS One tablet by mouth daily CITALOPRAM HYDROBROMIDE [id number] Flip Kramer MD clonazePAM 1 mg oral [...] Comment on above: Take 1 capsule by [facility] once daily. fish oil (2 sources) Start: 1 End: 2 take 1 tablet by mouth once daily FISH OIL CAPS One tablet by mouth daily OMEGA-3 FATTY ACIDS CAPS [id number] Flip Kramer MD Start: 09-13-2010 [facility] O[facility] CAPS One tablet by mouth daily OMEGA-3 FATTY ACIDS CAPS [id number] Radha Rodriguez fluticasone propionate 0.05 mg/actuat metered dose nasal spray (20 sources) Corticosteroid Start: 02-04-2021 End: 03-14-2021 Fluticasone [...] CAPS One tablet by mouth daily GABAPENTIN [id number] Radhajose Rodriguez hydroCHLOROthiazide 25 mg oral tablet (20 [...] mg tablet Discontinued 25 mg PO DAILY 30 April 13, 2020 1:00am April 29, 2020 5:38pm [...] TABS 300mg as needed (Ibuprofen) IBUPROFEN TABS [id number] Radha Rodriguez linezolid 600 mg oral tablet (20 sources) Oxazolidinone Antibacterial Start: 2 End: 2 [...] 10 mg PO TWICE A DAY 60 March 17, 2020 5:28pm March 20, 2020 [...] 02-08-2016 LORAZEPAM 1 MG TABS needed LORAZEPAM [id number] Flip Kramer MD losartan potassium 50 mg oral tablet (20 sources) Angiotensin 2 Receptor Anderson Start: 09-13-2010 End: 07-31-2017 take 1 tablet by mouth once daily Losartan 50 MG tablet Discontinued 50 mg PO DAILY December 08, 2015 12:00am July 31, 2017 4:31pm Start: 09-13-2010 take 2 tablets by mo [facility] once daily LOSARTAN POTASSIUM 50 MG TABS Two tablets by mouth daily (STOP) LOSARTAN POTASSIUM [id number] Flip Kramer MD 24 hr metFORMIN hydrochloride 500 mg extended release oral tablet (20 sources) Biguanide Start: 12-08-2015 End: 08-22-2017 take 1 tablet by mouth once daily Metformin 500 MG tablet,ER makayla.retention 24 hr Discontinued 500 mg PO DAILY December 08, 2015 12:00am August 22, 2017 1:46pm Start: 09-13-2010 take 1 tablet by ella th once daily METFORMIN HCL 500 MG TABS One tablet by mouth daily METFORMIN HCL [id number] Radha Rodriguez MULTIPLE VITAMIN (1 source) Start: 06-12-2014 take 1 tablet by mouth once daily MULTIVITAMINS TABS One tablet by mouth daily MULTIPLE VITAMIN Mallorie Santos PA-C Multivitamin 1 EACH tablet (10 sources) Start: 12-08-2015 End: 02-08-2022 Multivitamin 1 [...] 5 min up to 3 X NITROGLYCERIN [id number] Flip Kramer MD Comment on above: Dissolve 1 tablet un justus the tongue every 5 minutes as needed for chest pain. omeprazole 40 mg delayed release oral capsule (20 sources) Proton Pump Inhibitor Start: 0 End: take 1 capsule by mouth once daily Omeprazole 40 MG capsule,delayed release(DR/EC) Discontinued 40 mg PO DAILY 30 0 March 13, 2020 12:00am June 17, 2020 2:06pm Start: 09-13-2010 End: 09-28-2011 take 1 tablet by mouth once daily OMEPRAZOLE 20 MG CPDR One tablet by mouth daily OMEPRAZOLE [id number] Flip Kramer MD ondansetron 4 mg disintegrating oral tablet (20 sources) Serotonin-3 Receptor Antagonist Start: 03-13-2020 End: 06-17-2020 take 1 tablet by mouth every six hours as needed for nausea Ondansetron 4 MG tablet Discontinued 4 mg PO EVERY 6 HOURS NEEDED as needed for Nausea March 13, 2020 12:00am June 17, 2020 2:06pm predniSONE 20 mg oral tablet (20 sources) Start: 01-23-2020 End: 02-03-2020 take 2 [...] One tablet by mouth daily ROSUVASTATIN CALCIUM [id number] Radha Rodriguez Comment on above: Take 1 [...] on above: Take 2 capsules by [facility] daily at bedtime. tiZANidine 4 mg oral capsule (20 sources) Central alpha-2 Adrenergic Agonist Start: 2 End: take 1 capsule by mouth twice daily [...] TABS One tablet by mouth daily VALSARTAN [id number] Flip Kramer MD Problems Active Problems Problem Classification Problem Date Documented Da te Episodic/Chronic Abdominal pain (20 sources) Abdominal pain; Translations: [Unspecified abdominal pain] 03-14-2020 Episodic Acute cerebrovascular disease (6 sources) Cerebrovascular accident; Translations: [Cerebral infarction, unspecified] Chronic Anxiety disorders (20 sources) Generalized anxiety disorder; Translations: [Generalized anxiety disorder] Onset: 0 03-04-2020 Chronic Bacterial infection; unspecified site (20 sources) Bacteremia; Translations: [Bacteremia] 07-14-2021 Episodic Chronic kidney disease (20 sources) Chronic kidney disease stage 3; Translations: [Chronic kidney disease (CKD), stage III (moderate)] Onset: 8 Resolved: 3 08-22-2017 Chronic Coronary atherosclerosis and other heart disease (20 sources) Atherosclerotic heart disease of [place] coronary artery without angina pectoris; Translations: [Angina pectoris] Onset: 1 01-28-2016 Chronic Comment on above: Status post stent 2 years ago Deficiency and other anemia (20 sources) Anemia; Translations: [Anemia, unspecified] Onset: 4 08-20-2013 Episodic Deficiency and other anemia (10 sources) Chronic anemia; Translations: [Anemia, unspecified] 02-18-2024 [...] 6 09-13-2010 Chronic Fluid and electrolyte disorders (20 sources) Hyponatremia; Translations: [Hypo-osmolality and hyponatremia] 07-14-2021 Episodic Fracture of lower limb (5 sources) Closed fracture of fifth metatarsal bone; Translations: [Nondisplaced fracture of fifth metatarsal bone, left foot, initial encounter for closed fracture] 08-11-2023 Episodic Headache; including migraine (20 sources) Headache; [...] disease] Onset: 2 Resolved: 3 05-02-2022 Chronic Immunizations and screening for infectious disease (2 sources) Requires influenza virus vaccination; Translations: [Encounter for immunization] Onset: 5 02-04-2025 Episodic Miscellaneous mental health disorders (8 sources) Functional bloating; Translations: [Other somatoform disorders] 11-13-2024 Chronic Mood disorders (20 sources) Depressive disorder; Translations: [Depression] Onset: 6 02-10-2017 Chronic Mood disorders (1 source) Mood disorders; Translations: [Depression, unspecified depression type] Onset: 7 Mycoses (1 source) Onychomycosis; Translations: [Tinea unguium] 12-19-2022 Episodic Nausea and vomiting (20 sources) Nausea; Translations: [Nausea] 03-14-2020 Episodic Nutritional deficiencies (4 sources) Vitamin D deficiency; Translations: [Vitamin D deficiency, unspecified] Onset: 4 04-30-2024 Chronic Osteoarthritis (20 sources) Primary coxarthrosis, bilateral; 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] Onset: 5 02-04-2015 Chronic Other aftercare (11 sources) Patient encounter status; Translations: [Other half-way (current) drug therapy] 08-20-2018 Episodic Other aftercare (10 sources) Long-term current use of drug therapy; Translations: [Other half-way (current) drug therapy] 08-20-2018 Episodic Other circulatory disease (15 sources) Orthostatic hypotension; Translations: [Orthostatic hypotension] Onset: 5 10-18-2023 Episodic Other circulatory disease (11 sources) History of cerebrovascular accident; Translations: [Personal history of transient ischemic attack (TIA), and cerebral infarction without residual deficits] Onset: 5 01-26-2024 Episodic Other circulatory disease (17 sources) H/O: heart disorder; Translations: [Personal history of other diseases of the circulatory system] 07-28-2024 Episodic Other circulatory disease (2 sources) H/O: hypertension; Translations: [Personal history of other diseases of the circulatory system] 01-27-2025 Episodic Other circulatory disease (1 source) Personal [...] Episodic Other diseases of kidney and ureters (20 sources) Acute renal insufficiency; Translations: [Disorder of kidney and ureter, unspecified] 07-14-2021 Episodic Other gastrointestinal disorders (16 sources) Dark stools; Translations: [Other fecal abnormalities] 10-10-2022 Episodic Other gastrointestinal disorders (16 sources) Dysphagia; Translations: [Dysphagia, unspecified] 12-02-2024 Episodic Other gastrointestinal disorders (1 source) Other dysphagia; Translations: [Other dysphagia] Onset: 5 Episodic Other gastrointestinal disorders (1 source) Dysphagia, unspecified; Translations: [Dysphagia, unspecified] Onset: 5 Episodic Other hematologic conditions (17 sources) History of anemia; Translations: [Personal history [...] Other hereditary and degenerative nervous system conditions (20 sources) Restless legs; Translations: [Restless legs syndrome] 08-20-2018 Chronic Other lower respiratory disease (20 sources) Dyspnea; Translations: [Dyspnea, unspecified] Onset: 1 09-13-2010 Episodic Other lower respiratory disease (20 sources) Chronic cough; Translations: [Chronic cough] Onset: 5 08-10-2021 Episodic Other lower respiratory disease (20 sources) Hypoxia; Translations: [Hypoxemia] 07-14-2021 Episodic Other lower respiratory disease (3 sources) Dyspnea, unspecified; Translations: [Other respiratory abnormalities] Episodic Other lower respiratory disease (20 sources) Dyspnea on exertion; Translations: [Other forms of dyspnea] Onset: 5 10-10-2022 Episodic Other lower respiratory disease (1 source) Cough; Translations: [Cough] 10-29-2020 Episodic Other nervous system disorders (20 sources) [...] of gait and mobility] 07-23-2024 Episodic Other non-traumatic joint disorders (20 sources) Hip pain; Translations: [Pain in left hip] Onset: 5 Resolved: 2 10-29-2014 Episodic Other nutritional; endocrine; and metabolic disorders (1 source) Body mass index (BMI) 36.0-36.9, adult; Translations: [Body mass index (BMI) 36.0-36.9, adult] Onset: 5 07-29-2015 Chronic Other nutritional; endocrine; and metabolic disorders (20 sources) Overweight; Translations: [Overweight] 09-25-2017 Episodic Other nutritional; endocrine; and metabolic disorders (10 sources) H/O: diabetes mellitus; Translations: [Personal history of other endocrine, nutritional and metabolic disease] 02-18-2024 Episodic Other skin disorders (1 source) Ingrowing nail; Translations: [Ingrowing nail] 12-19-2022 Episodic Other skin disorders (1 source) Actinic keratosis; Translations: [Actinic keratosis] 12-30-2023 Episodic Other skin disorders (1 source) Rash and other nonspecific skin eruption; Translations: [Rash and other nonspecific skin eruption] Onset: Episodic Other upper respiratory disease (20 sources) Rhinitis; Translations: [Chronic rhinitis] 02-04-2021 Chronic Peripheral and visceral atherosclerosis (20 sources) 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; Translations: [Peripheral vascular disease, unspecified] Onset: 5 01-21-2015 Chronic Pulmonary heart disease (20 sources) Pulmonary hypertension; Translations: [Pulmonary hypertension, unspecified] 08-20-2018 Chronic Comment on above: RVSP 44 mmHg Residual codes; unclassified (20 sources) Obstructive sleep apnea syndrome; Translations: [Obstructive sleep apnea (adult) (pediatric)] Onset: 9 07-27-2018 Chronic Residual codes; unclassified (1 source) Obstructive sleep apnea (adult) (pediatric); Translations: [REHAN on CPAP] Onset: 9 Chronic Residual codes; unclassified (14 sources) History of lumbar laminectomy; Translations: [Other specified postprocedural states] 03-04-2023 Episodic Septicemia (except in labor) (20 sources) Sepsis; Translations: [Sepsis, unspecified organism] 07-14-2021 Episodic Spondylosis; intervertebral disc disorders; other back problems (20 sources) Cervical spondylosis; Translations: [Spondylosis without myelopathy or radiculopathy, cervical region] Onset: 1 Resolved: 7 07-29-2014 Chronic Sprains and strains (20 sources) Strain of neck muscle; Translations: [Strain of muscle, fascia and tendon at neck level, initial encounter] Onset: 5 Resolved: 2 07-29-2014 Episodic Superficial injury; contusion (15 sources) Abrasion of left elbow, initial encounter; Translations: [Abrasion of left elbow] 10-14-2023 Episodic Syncope (20 sources) Syncope and collapse; Translations: [Vasovagal syncope] Onset: 1 09-13-2010 Episodic Thyroid disorders (20 sources) Non-toxic multinodular goiter; Translations: [Nontoxic multinodular goiter] Onset: 4 12-12-2013 Chronic Transient cerebral ischemia (2 sources) Cerebral ischemia; Translations: [Transient cerebral ischemic attack, unspecified] Chronic Unclassified (19 sources) Benign prostatic hypertrophy 01-23-2020 Unclassified (1 source) Foreign body sensation, other site; Translations: [Foreign body sensation, other site] Onset: Urinary tract infections (20 sources) Acute cystitis; Translations: [Acute cystitis without hematuria] 07-14-2021 Episodic Viral infection (4 sources) Disease caused by 2019-nCoV; Translations: [COVID-19] Episodic Past or Other Problems Problem Classification Problem Date Documented Da te Episodic/Chronic Abdominal hernia (4 sources) Umbilical hernia; Translations: [Umbilical hernia without obstruction or gangrene] Onset: 11-19-2024 11-19-2024 Episodic Biliary tract disease (20 sources) Cholelithiasis without obstruction; Translations: [Calculus of gallbladder without cholecystitis without obstruction] Onset: 06-10-2014 Resolved: 07-05-2016 05-09-2023 Episodic Conditions associated with dizziness or vertigo (20 sources) Dizziness and giddiness; Translations: [Dizziness] Onset: 09-13-2010 09-13-2010 Episodic Coronary atherosclerosis and other heart disease (20 sources) Coronary angioplasty status; Translations: [Stented coronary artery] Onset: 08-20-2010 09-13-2010 Episodic Comment on above: PTCA/FER to prox CFX 09/08/10 Deficiency and other anemia (1 source) Anemia, unspecified; Translations: [Anemia, unspecified type] Onset: 08-20-2013 Episodic Diabetes mellitus without complication (20 sources) Impaired fasting glycemia; Translations: [Impaired fasting glucose] Onset: 02-01-2006 07-27-2018 Episodic Genitourinary symptoms and ill-defined conditions (20 sources) Dysuria; Translations: [Dysuria] Onset: 12-18-2024 07-06-2021 Episodic Hemorrhoids (20 sources) Internal hemorrhoids; Translations: [Other hemorrhoids] Onset: 03-29-2006 03-29-2006 Episodic Malaise and fatigue (7 sources) Fatigue; Translations: [Malaise and fatigue] Onset: 09-13-2010 09-13-2010 Episodic Nonspecific chest pain (20 sources) Precordial pain; Translations: [Chest pain] Onset: 09-13-2010 09-13-2010 Episodic Other aftercare (1 source) Other half-way (current) drug therapy; Translations: [Other long term care phlebotomist (current) drug therapy] Onset: 09-13-2010 09-13-2010 Episodic Other and unspecified benign neoplasm (20 sources) Benign neoplasm of colon; Translations: [Benign neoplasm of colon, unspecified] Onset: 03-29-2006 03-29-2006 Episodic Other circulatory disease (1 source) Orthostatic hypotension; Translations: [Orthostatic hypotension] Onset: 11-29-2024 Episodic Other circulatory disease (2 sources) Personal history of transient ischemic attack (TIA), and cerebral infarction without residual deficits; Translations: [History of CVA in adulthood] Onset: 08-21-2024 Episodic Other connective tissue disease (4 sources) [...] and abdomen] Onset: 07-20-2017 07-20-2017 Episodic Other lower respiratory disease (1 source) Shortness of breath; Translations: [SOB (shortness of breath) on exertion] Onset: 11-29-2024 Episodic Other nervous system disorders (20 sources) Abnormal gait; Translations: [Unsteadiness on feet] Onset: 06-25-2010 06-25-2010 Episodic Other nervous system disorders (20 sources) Tremor; Translations: [Tremor, unspecified] Onset: 07-27-2018 07-27-2018 Episodic Other nervous system disorders (1 source) Unspecified abnormalities of gait and mobility; Translations: [Abnormality of gait] Onset: 12-20-2024 Episodic Other non-traumatic joint disorders (20 sources) [...] adult] Onset: 12-11-2013 Resolved: 01-21-2015 07-27-2016 Episodic Other screening for suspected conditions (not mental disorders or infectious disease) (3 sources) Decreased vitamin D; Translations: [Other specified abnormal findings of blood chemistry] Onset: 04-30-2024 04-30-2024 Episodic Spondylosis; intervertebral disc disorders; other back problems (20 sources) Spinal stenosis of lumbar region; Translations: [Spinal stenosis, lumbar region without neurogenic 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] Onset: 05-19-2010 05-17-2021 Episodic Unclassified (2 sources) Family history of stroke; Translations: [FH: Hypertension] 12-11-2013 Episodic Results Test Name Value Interpretation Reference Range Facility [facility] 03-31-2025 OV Office Visit (RUBEN ) RONY MONZON ([id number]) 1940 M DEF Date Time Provider Department 03/31/25 3:40 PM LANDON STRANGE JR During your visit today, we recorded the following information about you: Pulse Respiration Blood pressure Weight 54/minute 16/minute 165/73 99.9 kg Landon Strange Jr., MD 03/31/2025 5:23 PM Signed Landon Strange Jr., MD 03/31/2025 5:23 PM Signed ESTABLISHED PATIENT VISIT CHIEF COMPLAINT: Follow Up HISTORY OF PRESENT ILLNESS: Rony Monzon is a 84 year old male, BMI 29.05 kg/m2 with a PMH significant for and per last office visit note of 01/26/24: 1. Lightheaded - ICD9: [...] given cardiac history, would like opinion of area development consultant Dr. Arguello. Question if benefit in lowering [...] to follow up with his surgeons at [facility]. 8. History of stroke - ICD9: V12.54, ICD10: Z86.73 Patient with no clinical symptoms. Noted on brain imaging. On Plavix and statin. No additional recs at this time with goal BP <140/90 and goal glucose <140. 9. Headaches - ICD9: 784.0, ICD10: R51.9 Resolved. No more falls since last visit. Lightheadedness persists - essentially any time he stands up. Occurs as soon as he stands up. Resolves upon sitting. Lightheaded pretty much anytime he stands up. Some days are worse than others. Reports drinking plenty of water, but doesn't think enough. We have not received any feed back from cardiology. He has not check BP regularly. When asked about cardiac symptoms, states can have chest pain on and off. Last occurred 2 weeks ago. No associated jaw 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 or radiation into jaw or arm. No other new complaints.. Sitting BP 147/79 HR 54 Standing BP 116/71 HR 57 REVIEW OF SYSTEMS GENERAL:No weight loss, malaise [...] above. SKIN:Negative for lesions, rash, and itching. LAB/IMAGING: [...] 138 Potassium (mmol/L) Date Value 08/23/2024 4.7 Ch (more content not included)... [facility] CNPNon 03-04-2025 CNPN Telephone (ORTHWS) RONY MONZON ([id number]) 1940 M DEF Date Time Provider Department 03/04/25 BETTINA LIZARRAGA During your visit today, we recorded the following information about you: Sveta Arana LPN 03/04/2025 1:57 PM Signed Patients calling in stating patient needs a new rx for his antibiotic for his upcoming dental procedure. She states she called [facility] because they had 4 refills and [facility] told her he needs a new prescription. JAYJAY Agrawal Amy M, MA 03/04/2025 3:44 PM Signed Order pended with correct pharmacy. Bettina Lizarraga PA-C 03/05/2025 7:26 AM Signed Order signed, thank you. Nakia Singh MA 03/05/2025 8:22 AM Signed I called and spoke with the spouse and advised new Rx was sent to [facility] pharmacy in [place]. She verbalized understanding. Allergies As of Date: 03/04/2025 Noted Allergy Reaction ATORVASTATIN 12/02/2024 17 - Myalgia LYRICA (PREGABALIN) 08/01/2016 7 - Swelling Comments: B/L hand swelling ORPHENADRINE 12/02/2024 16 - Unknown NEURONTIN (GABAPENTIN) 05/31/2016 7 - Swelling Comments: Feels that he does not have a true allergy to this medication. States he had swelling, not rash. NORFLEX (ORPHENADRINE CITRATE) 04/12/2016 8 - GI Upset Date Reviewed: 02/07/2025 Reviewed by: Selin Gallegos LPN - Fully Assessed Reason for Visit: Patient Question [2997] Medication Problem [65] Visit Diagnosis:History of total right hip arthroplasty [Z96.641] Order(s):amoxicillin (AMOXIL) 500 mg capsule4 capsules 1 hours prior to dental procedure.Disp: 4 capsuleRfl: 4 Prescriptions as of 03/05/2025 - amoxicillin (AMOXIL) 500 mg capsule 4 capsules 1 hours prior to dental procedure. - FLUoxetine (PROZAC) 40 mg capsule Take 1 capsule by mouth once daily. - pantoprazole DR (PROTONIX) 40 mg tablet Take 1 tablet by mouth two times a day. 30 minutes before eating. - magnesium hydroxide (TORRES MILK OF MAGNESIA PO) Take 30 mL by mouth once daily as needed. - rosuvastatin (CRESTOR) 10 mg tablet Take 1 tablet by mouth daily at bedtime. - propranolol (INDERAL) 20 mg tablet Take 1 tablet by mouth two times a day. - amLODIPine (NORVASC) 5 mg tablet Take 1 tablet by mouth two times a day. - clopidogrel (PLAVIX) 75 mg tablet Take 1 tablet by mouth once daily. - oxyCODONE IR [...] once daily. Problem List As Of Date 03/04/2025 Noted Resolved BENIGN HYPERTENSION [I10] 12/14/2005 Hyperlipidemia, [...] instability [R26.81] 06/25/2010 Coronary artery disease involving [place]*11/23/2010 Anemia [D64.9] 08/20/2013 Nontoxic multinodular goiter [...] (shortness of breath) on exertion [R06.02] 11/29/2024 His (more content not included)... [facility] Gastroenterology Visit Repor ton 02-11-2025 Gastroenterology Visit Report [facility] Gastroenterology [address] [place] [address] OFFICE VISIT Date of Service: 02/11/25 MR#: [id number] Acct: [id number] Name: RONY MONZON Rep #: [id number] : 1940 Provider: BRIE Medina Age/Sex: 84/M Location: [facility] Status: Signed Intake Vital Signs 01/27/25 20:48 Height 6 ft 1 in Intake Visit Reasons: Procedure F/U Chief Complaint: f/u EGD Finisher Card Tender Required: No Is patient in pain?: No Allergies hydrocodone (From Vicodin) Allergy (Verified 02/11/25 15:07) Other orphenadrine Allergy (Verified 02/11/25 15:07) Unknown pregabalin Allergy (Verified 02/11/25 15:07) Swelling atorvastatin (From Lipitor) Adverse Reaction (Severe, Verified 02/11/25 15:07) Intolerance,Myalgias Medications ???Medication ???Instructions ???Recorded ???Confirmed ???Type fluoxetine 40 mg capsule (Prozac) 40 mg PO DAILY reflux 07/04/18 History acetaminophen 500 mg tablet 500 mg PO Q6H PRN Pain 06/17/20 History (Tylenol Extra Strength) amlodipine 5 mg tablet 5 mg PO BID blood pressure 1 02/11/25 History multivitamin 1 tab PO DAILY vitamin 02/08/22 History clopidogrel 75 mg tablet 75 mg PO DAILY anti platelet 05/0502/11/25 History rosuvastatin 10 mg tablet 10 mg PO QHS cholesterol #90 tabs 11/24/22 02/11/25 Rx oxycodone 5 mg tablet 5 mg PO Q6H PRN pain 04/16/2301/21 History lisinopril 10 mg tablet 10 mg PO BID blood pressure #180 1 06/11/23 02/11/25 Rx TABLETS nitroglycerin 0.4 mg sublingual 0.4 mg sublingual Q5-15M PRN chest 11/29/24 02/11/25 Rx tablet pain #25 tabs propranolol 20 mg tablet 20 mg PO BID blood pressure 02/11/25 History pantoprazole 40 mg tablet,delayed 40 mg PO BID #60 tabs 01/10/25 Rx release acyclovir 800 mg tablet 800 mg PO Q4H 6 days #36 tabs 01/1302/11/25 Rx Have you fallen in the past year?: No PFSH Medical History High cholesterol Stroke/cerebrovascular accident [...] breath Dyspnea Precordial chest pain 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 BGI established 7.14.25 for intermittent difficulty swallowing. Last EGD many years ago. Patient also with mild constipation and takes milk of mag as needed. MBS 8.4.25 retention of cookie in the middle and lower esophagus which cleared with use of sin (more content not included)... [facility] CNOVon 02-07-2025 CNOV Office Visit (NMFWH) RONY MONZON ([id number]) 1940 M DEF Date Time Provider Department 02/07/25 10:00 AM DANNY NOVOA [facility] During your visit today, we recorded the following information about you: Pulse Blood pressure Weight Height 60/minute 126/64 99.8 kg 1.854 m Danny Novoa MD 02/07/2025 11:07 AM Signed [facility] New Patient Visit Note Consultation requested by Jessy Weldon for an opinion regarding lightheadedness. My final recommendations will be communicated back to the requesting physician by way of shared Medical record or letter to requesting physician via US mail. History of Present Illness: Mr. Monzon is a 84 year old right-handed male with a history of T2DM, CAD, HTN presenting for evaluation of dizziness. Seen by two neurology providers locally. Recommended adjustment to his BP medications. Orthostatic vital signs today notable for supine HTN. Recommended he see a Asbestos Siding Installer, but I don't see that he made an appointment. Reports symptoms started 5 years ago. Seen by Cardiology locally who ordered a TTT. Reports if he stands for prolonged periods of time, where if he stands for prolonged periods of time he gets lightheaded. He drinks 3-4 12oz of water a day. He hardly salts his food. He eats three times a week a frozen meal. Reports taking multiple medications for BP. The patient is able to brush their hair and teeth without difficulty. The patient is able to arise from the squatted position without difficulty and can get up from the seated position without the use of their arms. The patient is able to go up steps in a staircase with some difficulty. He cannot walk for several blocks without needing to stop for rest. He has been using a rollator for about a year. Reports falls where his legs give out from under him. Reports constipation, which he attributes to chronic oxycodone use for back ache and shoulder pain. Vision is good, vision is poor. The patient does not report any other symptoms referrable to neurological focality or neuromuscular deficits. The patient has not noticed any constitutional symptoms like fever, night sweats, anorexia or unintentional weight loss. 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 Exposure to heavy metals, power plants, etc: Denies PAST MEDICAL HISTORY Diagnosis Date Adjustment disorder with depressed mood Anemia Benign neoplasm of colon Constipation Coronary artery disease Diabetes (HCC) Essential hypertension, benign Gallbladder polyp needs repeat ultrasound in 06/06 H/O hiatal hernia History of stroke Impaired fasting glucose Internal hemorrhoids without mention of complication Myelomalacia of cervical cord (HCC) Other and unspecified hyperlipidemia Personal history of colonic polyps Spinal stenosis of cervical region Spinal stenosis of lumbar region, unspecified whether neurogenic 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 present Umbilical hernia PAST SURGICAL HISTORY Procedure Laterality Date APPENDECTOMY ARTHRP ACETBLR/PROX FEM PROSTC AGRFT/ALGRFT Right 08/08/2018 Dr. Charly Suh CARDIAC CATH N/A 02/02/2015 Completed at [facility] COLONOSCOPY FLX DX W/COLLJ SPEC WHEN PFRMD 07/11/2012 Colonoscopy COLONOSCOPY FLX DX W/COLLJ SPEC WHEN PFRMD 02/24/2017 Colonoscopy COLONOSCOPY W/BIOPSY SINGLE/MULTIPLE 03/29/2006 ESOPHAGOGASTRODUODENOSC OPY TRANSORAL DIAGNOSTIC 02/24/2017 EGD [place] W/O FACETEC FORAMOT/DSC 05/23 VRT SGM CRV 05/2000 Dr Cole PAST SURGICAL HISTORY OF Right 2007 knee surgery REPAIR UMBILICAL HERNIA 12/13/2024 HERNIORRHAPHY UMBILICAL REDUCIBLE RPR [place] VAGINALIS HYDROCELE BOTTLE TYPE STENT PLACEMENT 08/2010 [facility] VASECTOMY UNI/BI SPX W/POSTOP SEMEN EXAMS Medications: Current Outpatient Medications Medication Sig pantoprazole DR (PROTONIX) 40 mg tablet Take 1 tablet by mouth two times a day. 30 minutes before eating. magnesium hydroxide (TORRES MILK OF MAGNESIA PO) Take 30 mL by mouth once daily as needed. amoxicillin (AMOXIL) 500 mg capsule 4 capsules [...] every 5 minutes as needed for chest tony (more content not included)... [facility] CNOVon 02-04-2025 CNOV Office Visit (FAMPWS ) RONY MONZON ([id number]) 1940 M DEF Date Time Provider Department 02/04/25 9:20 AM GEORGE VAUGHAN During your visit today, we recorded the following information about you: Temperature Pulse Respiration Blood pressure 97.5 degrees 64/minute 18/minute 110/70 Weight 98.8 kg George Vaughan MD 02/04/2025 1:43 PM Signed Chief Complaint Patient presents with: 6 Month Exam Immunizations: Flu vaccination HPI Rony Monzon is a 84 year old male who presents here today for 6 month follow up. Follows with Gastro Dr. Friend. No bowel, gi, or urinary concerns. Uses MOM as needed. GERD controlled. Started on Protonix 40 mg 1 pill BID. Tremors: Follows with Neuro, taking Propranolol 30 mg 1 pill twice a day. Lipid/CAD: Taking Plavix 75 mg daily and Crestor 10 mg daily. Tries to watch his diet. Denies any exercise. HTN: Checks BP at home occ. Has chest pain, sob, or dizziness at times. Is on Propranolol 30 mg 1 pill BID, Lisinopril 10 mg 1 pill BID, and Norvasc 5 mg 1 pill BID. Follows with [facility]. Hx of elevated glucose/A1c. Currently on no medications at this time and controlling with diet and lifestyle. Pain AND SAUCEDO: chronic; uses Oxycodone 5 mg every 6 hours prn and Tylenol extra strength prn, and Flexeril prn. Referred to PT last visit for balance, pain, weakness which was done at [facility]. Was at [facility] ER for shingles to the abdomen and right flank area that occurred a week ago. He was treated with Acyclovir 800 mg 1 pill every 4 hours, took last pill this AM. He feels this is improving. Past medical history, appointments, medications, allergies reviewed. Previous Medical History PAST MEDICAL HISTORY Diagnosis Date Adjustment disorder with depressed mood Anemia Benign neoplasm of colon Constipation Coronary artery disease Diabetes (HCC) Essential hypertension, benign Gallbladder polyp needs repeat ultrasound in 06/06 H/O hiatal hernia History of stroke Impaired fasting glucose Internal hemorrhoids without mention of complication Myelomalacia of cervical cord (HCC) Other and unspecified hyperlipidemia Personal history of colonic polyps Spinal stenosis of cervical region Spinal stenosis of lumbar region, unspecified whether neurogenic 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 present Umbilical hernia Previous Surgical History PAST SURGICAL HISTORY Procedure Laterality Date APPENDECTOMY ARTHRP ACETBLR/PROX FEM PROSTC AGRFT/ALGRFT Right 08/08/2018 Dr. Charly Suh CARDIAC CATH N/A 02/02/2015 Completed at [facility] COLONOSCOPY FLX DX W/COLLJ SPEC WHEN PFRMD 07/11/2012 Colonoscopy COLONOSCOPY FLX DX W/COLLJ SPEC WHEN PFRMD 02/24/2017 Colonoscopy COLONOSCOPY W/BIOPSY SINGLE/MULTIPLE 03/29/2006 ESOPHAGOGASTRODUODENOSC OPY TRANSORAL DIAGNOSTIC 02/24/2017 EGD [place] W/O FACETEC FORAMOT/DSC 05/23 VRT SGM CRV 05/2000 Dr Cole PAST SURGICAL HISTORY OF Right 2007 knee surgery REPAIR UMBILICAL HERNIA 12/13/2024 HERNIORRHAPHY UMBILICAL REDUCIBLE RPR [place] VAGINALIS HYDROCELE BOTTLE TYPE STENT PLACEMENT 08/2010 [facility] VASECTOMY UNI/BI SPX W/POSTOP SEMEN EXAMS Family [...] swelling, not rash. Norflex [Orphenadri* GI Upset Current Medications Current Outpatient Medications on File Prior to Visit Medication Sig magnesium hydroxide (TORRES MILK OF MAGNESIA PO) Take 30 mL by mouth once daily as needed. amoxicillin (AMOXIL) 500 mg capsule 4 capsules [...] daily. No current facility-administered medications on file pr (more content not included)... [facility] Emergency Department Summary on 01-27-2025 Emergency Department Summary [facility] Medical Records Department [address] [place] [address] Emergency Department Summary 01/27/25 MR#: [id number] Acct: [id number] Name: RONY MONZON Rep #: [id number] : 1940 84 From: Carlos Gaytan DO PCP: Dr. George Vaughan MD Status:PRE ER Location: ED HPI History of Present Illness Chief Complaint: Rash Narrative Narrative: Patient is a 84-year-old male with past medical history of CVA, hypercholesteremia, depression, hypertension, pulmonary hypertension, REHAN who presents to the emergency department chief complaint of rash. Patient states that the rash has been there for approximately 1 to 2 days and is painful and itchy. The patient's at bedside notes that he told her about it today. They note that he was restarted on Protonix and did some reading on the information that was sent with the prescription and they were concerned that this rash was secondary to this. Patient otherwise feels fine and has no complaints. 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 Atherosclerotic heart disease of [place] coronary artery without angina pectoris Left thyroid [...] #90 tabs 12/02/24 U nknown Rx release pantoprazole 40 mg tablet,delayed 40 mg PO BID #60 tabs 01/10/25 Un known Rx release acyclovir 800 mg tablet 800 mg PO Q4H 6 days #36 tabs 01/13 Unknown Rx Allergy/AdvReac Type Severity Reaction Status Date / Time hydrocodone (From Vicodin) Allergy Other Verified 01/27/25 20:51 orphenadrine Allergy Unknown Verified 01/27/25 20:51 pregabalin Allergy Swelling Verified 01/27/25 20:51 atorvastatin (From Lipitor) AdvReac Severe Intolerance Verified 01/27/25 20:51 ,Myalgias Family History Father CVA (cerebral vascular [...] years used: 22 second hand exposure: No (more content not included)... [facility] EGD Reporton 01-10-2025 EGD Report [facility] Medical Records Department [address] [place] [address] EGD Report MR#: [id number] Acct: [id number] Name: RONY MONZON Rep #: [id number] : 1940 84 From: Josue Seals DO PCP: Dr. George Vaughan MD Status:[facility] Patient Name: Rony Monzon Procedure Date: 01/10/2025 [...] 3 months. Procedure Code(s): --- Professional --- 30119, Esophagogastroduodenosc opy, flexible, transoral; with insertion of guide wire followed by passage of dilator(s) through esophagus over guide wire 03857, 59,51, Esophagogastroduodenosc opy, flexible, transoral; with biopsy, single or multiple CPT copyright 2021 [employer]. All rights reserved. The codes documented in this report are preliminary and upon highway maintenance worker review may be revised to meet current compliance requirements. Josue Seals DO 01/10/2025 3:23:19 PM This repor (more content not included)... [facility] MR/OP[facility] Medical Records Department [address] [place] [address] Provation Physician Letter MR#: [id number] Acct: [id number] Name: RONY MONZON Rep #: [id number] : 1940 84 From: Josue Seals DO PCP: Dr. George Vaughan MD Status:[facility] 01/10/2025 George Vaughan [address] [place] [address] Re : Upper GI endoscopy procedure for Rony Monzon Dear Dr. Vaughan This procedure was performed on Monday, January 10, 2025. My impressions and recommendations [...] been signed electronically. 01/10/25 1523 Date Josue Seals DO Cosigner Signature: Date (if indicated) CC: Dr. George Vaughan MD; Josue Seals DO Date Dictated: 01/10/25 1500 Date Transcribed: Marriage And Family Counselor: JACEY Signed [facility] MR/POSTOP.[facility] 01-10-2025 MR/POSTOP.[facility] Medical Records Department [address] [place] [address] Anesthesia Postop Eval I 01/10/25 1520 MR#: [id number] Acct: [id number] Name: RONY MONZON Rep #: [id number] : 1940 84 From: Scott Cornejo CRNA PCP: Dr. George Vaughan MD Status:REG SD Y Race: C Location: [place] [address] Anesthesia: Postop Eval I Current Vital Signs [...] document: Postop Eval 1 completed: Yes 01/10/25 152 Date Scott Keenanigneunice Signature: Date CC: Signed [facility] MR/[id number] 01-10-2025 MR/POSTOPAN2 [facility] Medical Records Department [address] [place] [address] Anesthesia Postop Eval II 01/10/25 1527 MR#: [id number] Acct: [id number] Name: RONY MONZON Rep #: [id number] : 1940 84 From: Scott Cornejo CRNA PCP: Dr. George Vaughan MD Status:REG [facility] Y Race: C Location: [address] Anesthesia Postop Eval I Sum Postop Eval Completion status Anesthesia document: Postop Eval 1 completed: Yes Anesthesia Postop Eval I Summary Anesthesia Postop Eval I Summary: Anesthesia Postop Eval I: Assessment Summary Airway patent Yes 01/10/25 15:21 CHIEF MEDICAL TECHNOLOGIST.MDOT Spontaneous unlabored Yes 01/10/25 15:21 CHIEF MEDICAL TECHNOLOGIST.MDOT respirations Mental status Awake,Calm 01/10/25 15:21 CHIEF MEDICAL TECHNOLOGIST.MDOT nausea No 01/10/25 15:21 CHIEF MEDICAL TECHNOLOGIST.MDOT Vomiting No 01/10/25 15:21 CHIEF MEDICAL TECHNOLOGIST.MDOT Anesthesia Postop Eval I: Fluid Summary Crystalloid volume administer 100 01/10/25 15:21 CHIEF MEDICAL TECHNOLOGIST.MDOT (ml) Colloids volume administered ( ml) Blood Product volume administered (ml) Total IV fluid infused 100 01/10/25 15:21 CHIEF MEDICAL TECHNOLOGIST.MDOT Anesthesia Postop Eval I: Summary Notes Anesthesia Complication No 01/10/25 15:21 CHIEF MEDICAL TECHNOLOGIST.MDOT Anesthesia Complication Comment: Post-operative progress note Anesthesia: Postop Eval II Evaluation Mental status: Awake and Calm Pain Level: 0 nausea: No Vomiting: No Complications Anesthesia Complication: No 01/10/25 1528 Date Scott Kramer Signature: Date CC: Signed [facility] Surgery Specimen Level [place] 01-10-2025 Surgery Specimen Level IV Patient Age/Sex Location Account Attending Physician RONY MONZON 84/M EN [id number] Josue Seals DO Specimen: [id number] Received: 01/10/25 Status: PARKER Reynolds Num: [id number] Spec Type: EGD BIOPSY Young Dr: Josue Seals, DO HEADER OPERATION: EGD, biopsy PRE-OP DIAGNOSIS: Chronic cough, [...] specimen is totally submitted in one cassette. MO 01/13/2025 CPT:12333 Patient Age/Sex Location Account Attending Physician RONY MONZON 84/M EN [id number] Josue Seals DO Signed (signature on file) Dr. Armond Acevedo MD 01/22/25 1525 [facility] Comment on above: Performed By: #### P SUIV ####[facility] [address] [place], [place], [address] MR/PAT.HIMANSHUon 01-08-2025 /PAT.[facility] Medical Records Department [address] [place] [address] PAT - Anesthesia 01/08/25 1537 MR#: [id number] Acct: [id number] Name: RONY MONZON Rep #: [id number] : 1940 84 From: Yobani Ariza MD PCP: Dr. 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 Hx Hospitalization Yes: 07/2024 ER VISIT, 01/08/25 [...] take am of surgery PONV PONV - aviation 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: PONV - aviation 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 Female No 01/08/25 13:03 HX of Motion [...] 11/29/24 07:58 Respiratory Assessment Respiratory Assessment - aviation 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: Respiratory Tract Infection Hx - aviation 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 Hx Respiratory Tract Infection No 01/08/25 13:03 STOP Sleep Apnea STOP Sleep Apnea - aviation 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: STOP Sleep Apnea - aviation 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 Hx Hypertension Yes: PER PT, CONTROLLED ON [...] Tobacco Use History Tobacco Use History - aviation 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: Tobacco Use History - aviation 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 Tobacco Use Smoking Status Former smoker 01/08/25 13:03 Hx Tobacco Use No 01/08/25 13:03 Years Smoking Packs Smoked per Day Smoking Cessation Date was No - quit smoking greater 01/08/25 13:03 within the last 15 years than 15 years ago Hx Smoking Cessation Date 05/22/81 01/08/25 13:03 Hx Smoking Cessation No 01/08/25 13:03 Counseling Hematologic Medial History Hematologic Hx - aviation 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: Hematologic 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 Specify any problems Hx of Preganancy in last 3 N/A 01/08/25 13:03 Months Nurse Filling Out Transfusion KAYDEN 01/08/25 13:03 Questions: Date: 01/08/25 01/08/25 13:03 Time: 13:05 01/08/25 13:03 Patient unable to answer at this time (ie. confused, unrespo /Reproduction History /Reproductive History - aviation 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: /Reproductive Hx- aviation 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 Hx Now No 01/08/25 13:03 Gestational Age (in weeks): EDC: Hx Hx Para Hx Section SAB No 01/08/25 13:03 [facility] Medical History (Updated 01/08/25 @ 13:14 by [...] Restless legs (more content not included)... Normal [facility] 12-27-2024 [facility] Office Visit (GENSWS ) RONY MONZON ([id number]) 1940 M DEF Date Time Provider Department 12/27/24 11:00 AM GERTRUDE ALLEN GENDERRICKS During your visit today, we recorded the [...] that may arise. Follow up: EKATERINA Allen APRN.FRONT DESK ADMIN Referring Provider: GEORGE VAUGHAN [[id number]] Allergies As of Date: 12/27/2024 Noted Allergy [...] instability [R26.81] 06/25/2010 Coronary artery disease involving [place] mahmood*11/23/2010 Anemia [D64.9] 08/20/2013 Nontoxic multinodular goiter [...] (generalized anxie (more content not included)... Normal [facility] Modified Barium Swallow Stud [facility] 12-23-2024 Modified Barium Swallow Study [facility] Speech Pathology [address] [place] [address] Modified Barium Swallow Study MR#: [id number] Acct: [id number] Name: RONY MONZON Rep #: [id number] : 1940 84 From: Rosita Pacheco M.A., [facility] MAINTENANCE TECHNICIAN Modified Barium Swallow Patient Information Study Date: [...] manometry, and EGD w/ follow-up. 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 [place] Thick Liquid via small single sip: cup: [...] structures Pharyngeal Phase (more content not included)... Normal [facility] CNOVon 12-20-2024 CNOV Office Visit (RUBEN ) RONY MONZON ([id number]) 1940 M DEF Date Time Provider Department 12/20/24 10:40 AM [...] daily. 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 [...] given cardiac history, would like opinion of area development consultant Dr. Arguello. Question if benefit in lowering [...] to follow up with his surgeons at [facility]. 8. History of stroke - ICD9: V12.54, [...] NECK:Negative for (more content not included)... Normal [facility] CNPNon 12-20-2024 [facility] Telephone (RUBEN) RONY MONZON ([id number]) 1940 M DEF Date Time Provider Department [...] instability [R26.81] 06/25/2010 Coronary artery disease involving [place] mahmood*11/23/2010 Anemia [D64.9] 08/20/2013 Nontoxic multinodular goiter [...] Status:Closed by DELMIS COONEY on 01/06/25 Normal [facility] Bacteria Ur Culton Bacteria identified Cx Nom (U) ORGANISM ID: 1 <10,000 CFU/ml Normal urogenital miguel Normal [facility] Comment on above: Performed By: #### 6 30-4 ####[facility] LABCLIA [id number] [place] [address] [place] CNOVon 12-18-2024 CNOV Office Visit (GENSWS ) RONY MONZON ([id number]) 1940 M DEF Date Time Provider Department 12/18/24 2:00 PM GERTRUDE ALLEN During your visit today, we recorded the following information about you: Temperature Pulse Respiration Blood pressure 97.1 degrees 68/minute 14/minute 130/72 Weight 94.3 kg Gertrude Allen APRN.FRONT DESK ADMIN 12/18/2024 3:12 PM Signed SUBJECTIVE: Rony Monzon [...] or sooner with worsening symptoms Gertrude Allen APRN.Rachel Lipscomb LPN 12/18/2024 3:12 PM Signed Interpreting services utilized via (plug shaper hand service modality: plug shaper hand not needed for appointment). Patient can hear [...] Upset Date Reviewed: 12/18/2024 Reviewed by: Rachel ePttit LPN - Fully Assessed Reason for Visit: Follow Up [171] Weak urinary stream post surgery. [Other] Primary Visit Diagnosis:Weak urinary stream [R39.12] Other Visit Diagnoses:Screening for genitourinary condition [Z13.89] Umbilical hernia without obstruction and without gangrene [K42.9] Order(s):BACTERIAL CULTURE, URINE [SQURCUL] Order #: [id number] FUTURE POST VOID RESIDUAL [[id number]] Order #: [id number] URINALYSIS (WITH MICROSCOPIC) WITH CULTURE IF INDICATED [SQUACII] Order #: [id number] FUTURE Prescriptions as of 12/18/2024 - magnesium [...] 6 ho (more content not included)... Normal [facility] 12-18-2024 [facility] Telephone ([place]) RONY MONZON ([id number]) 1940 M [facility] Date Time Provider Department 12/18/24 SHELDON SLATER [...] Please advise and contact patient and at [phone]. JAYJAY Phillips Daniel P, MD 12/18/2024 11:00 [...] Upset Date Reviewed: 12/13/2024 Reviewed by: Sveta Pink, RN - Fully Assessed Prescriptions as of [...] instability [R26.81] 06/25/2010 Coronary artery disease involving [place] mahmood*11/23/2010 Anemia [D64.9] 08/20/2013 Nontoxic multinodular goiter [...] Status:Closed by RACHEL PETTIT on 12/18/24 Normal [facility] Urinalysis complete panel (U )on 12-18-2024 Bacteria LM.HPF (Urine sed) [#/Area] Negative Negative /HPF [facility] Bilirubin Ql (U) Negative Negative [facility] Clarity (Unsp spec) Clear Clear [facility] Color (U) Yellow Yellow [facility] Epithelial cells LM.HPF (Urine sed) [#/Area] None Seen /HPF [facility] Glucose Test strip (U) [Mass/Vol] Negative Negative [facility] Hemoglobin Ql (U) Negative Negative [facility] Hyaline casts (Urine sed) [#/Area] 0 /[LPF] 0 /LPF [facility] Interpretation and review of laboratory results Abnormal [facility] Ketones Ql (U) Negative Negative [facility] Leukocyte esterase Test strip Ql (U) Negative Negative [facility] Nitrite Ql (U) Negative Negative [facility] pH (U) 7.5 [pH] 5.0 - 8.0 [facility] Protein (U) [Mass/Vol] Trace Abnormal Negative Cl [facility] RBC LM.HPF (Urine sed) [#/Area] 0-2 /HPF 0-2 /HPF [facility] Specific gravity (U) [Rel density] 1.008 1.005 - 1.030 [facility] Urobilinogen Ql (U) 0.2 EU/dL 0.2-1.0 EU/dL [facility] WBC LM.HPF (Urine sed) [#/Area] 0-5 /HPF 0-5 /HPF [facility] This test was tejal villa and its performance characteristics determined by [facility]'s Carlos Enrique [facility] Pathology and Laboratory Medicine [place] (RT-PLMI). It has not been cleared or approved by the FDA. -PLNJ is regulated under CLIA as qualified to perform high-complexity testing. This test is used for clinical purposes. It should not be regarded as investigational or for research. [facility] Bacteria LM.HPF (Urine sed) [#/Area] Negative Normal Negative [facility] Comment on above: Order Comment: Speci men Type: URINE SPECIMENOrdering Facility: [facility] Address: [address] [place] [address] Performed By: #### 2 4356-8 ####[facility] LABCLIA [id number] [place] [address] [place] Bilirubin Ql (U) Negative Normal Negative [facility] Comment on above: Order Comment: Speci men Type: URINE SPECIMENOrdering Facility: [facility] Address: [address] [place] [address] Performed By: #### 2 4356-8 ####[facility] LABCLIA [id number] [place] [address] [place] Clarity (Unsp spec) Clear Normal Clear [facility] Comment on above: Order Comment: Speci men Type: URINE SPECIMENOrdering Facility: [facility] Address: [address] [place] [address] Performed By: #### 2 4356-8 ####[facility] LABCLIA [id number] [place] [id number] [place] Color (U) Yellow Normal Yellow [facility] Comment on above: Order Comment: Speci men Type: URINE SPECIMENOrdering Facility: [facility] Address: [address] [place] [address] Performed By: #### 2 4356-8 ####[facility] LABCLIA [id number] [place] [id number] [place] Epithelial cells LM.HPF (Urine sed) [#/Area] None Seen Normal [facility] Comment on above: Order Comment: Speci men Type: URINE SPECIMENOrdering Facility: [facility] Address: [address] [place] [address] Performed By: #### 2 4356-8 ####[facility] LABCLIA [id number] [address] [place] [address] [place] Glucose Test strip (U) [Mass/Vol] Negative Normal Negative [facility] Comment on above: Order Comment: Speci men Type: URINE SPECIMENOrdering Facility: [facility] Address: [address] [place] [address] Performed By: #### 2 4356-8 ####[facility] LABCLIA [id number] [address] [place] [address] [place] Hemoglobin Ql (U) Negative Normal Negative [facility] Comment on above: Order Comment: Speci men Type: URINE SPECIMENOrdering Facility: [facility] Address: [address] [place] [address] Performed By: #### 2 4356-8 ####[facility] LABCLIA [id number] [address], [facility]95 [place] Hyaline casts (Urine sed) [#/Area] 0 /[LPF] Normal 0 /LPF [facility] Comment on above: Order Comment: Speci men Type: URINE SPECIMENOrdering Facility: [facility] Address: [address] [place] [address] Performed By: #### 2 4356-8 ####[facility] LABCLIA [id number] [facility] [address] [place] [address] [place] Ketones Ql (U) Negative Normal Negative [facility] Comment on above: Order Comment: Speci men Type: URINE SPECIMENOrdering Facility: [facility] Address: [address] [place] [address] Performed By: #### 2 4356-8 ####[facility] LABCLIA [id number] [facility] [address] [place] [address] [place] Leukocyte esterase Test strip Ql (U) Negative Normal Negative [facility] Comment on above: Order Comment: Speci men Type: URINE SPECIMENOrdering Facility: [facility] Address: [address] [place] [address] Performed By: #### 2 4356-8 ####[facility] LABCLIA [id number] [address], [place] [address] [place] Nitrite Ql (U) Negative Normal Negative [facility] Comment on above: Order Comment: Speci men Type: URINE SPECIMENOrdering Facility: [facility] Address: [address] [place] [address] Performed By: #### 2 4356-8 ####[facility] LABCLIA [id number] [address], [place] [address] [place] pH (U) 7.5 [pH] Normal 5.0-8.0 [facility] Comment on above: Order Comment: Speci men Type: URINE SPECIMENOrdering Facility: [facility] Address: [address] [place] [address] Performed By: #### 2 4356-8 ####[facility] LABCLIA [id number] [address], [place] [address] [place] Protein (U) [Mass/Vol] Trace Abnormal Negative Cl [facility] Comment on above: Order Comment: Speci men Type: URINE SPECIMENOrdering Facility: [facility] Address: [address] [place] [address] Performed By: #### 2 4356-8 ####[facility] LABCLIA [id number] [address], [place] [address] [place] RBC LM.HPF (Urine sed) [#/Area] 0-2 /HPF Normal 0-2 /HPF [facility] Comment on above: Order Comment: Speci men Type: URINE SPECIMENOrdering Facility: [facility] Address: [address] [place] [address] Performed By: #### 2 4356-8 ####[facility] [id number] [place] [address] [place] Specific gravity (U) [Rel density] 1.008 Normal 1.005-1.030 [facility] Comment on above: Order Comment: Speci men Type: URINE SPECIMENOrdering Facility: [facility] Address: [address] [place] [address] Performed By: #### 2 4356-8 ####[facility] [id number] [place] [address] [place] Urobilinogen Ql (U) 0.2 EU/dL Normal 0.2-1.0 EU/dL [facility] Comment on above: Order Comment: Speci men Type: URINE SPECIMENOrdering Facility: [facility] Address: [address] [place] [address] Performed By: #### 2 4356-8 ####[facility] [id number] [place] [address] [place] WBC LM.HPF (Urine sed) [#/Area] 0-5 /HPF Normal 0-5 /HPF [facility] Comment on above: Order Comment: Speci men Type: URINE SPECIMENOrdering Facility: [facility] Address: [address] [place] [address] Performed By: #### 2 4356-8 ####[facility] [id number] [place] [id number] [place] ANES POSTPROC EVALon 025 ANES POSTPROC EVAL HNO ID: [id number] Author: MERON GIBSON MD Service: Anesthesiology Author Type: Anesthesiologist Type: Anesthesia Postprocedure Evaluation Filed: 12/13/2024 11:22 Note Text: POST ANESTHESIA EVALUATION NOTE : 1940 Procedure Summary Date: 12/13/24 Room / Location: [place] OR04 / [place] OR Anesthesia Start: 920 Anesthesia Stop: 1030 [...] December 13, 2024 TIME: 11:21 AM CSN: [id number] [facility] ANES PRE-OPon 12-13-2024 ANES PRE-OP HNO ID: [id number] Author: MERON GIBSON MD Service: Anesthesiology Author Type: Anesthesiologist Type: Anesthesia Preprocedure Evaluation Filed: 12/13/2024 09:21 Note Text: ANESTHESIOLOGY DAY OF SURGERY NOTE : 1940 Procedure Information Date/Time: 12/13/24 0859 Procedure: HERNIORRHAPHY UMBILICAL REDUCIBLE 3cm-10cm Location: [place] OR04 / [place] OR Surgeons: Sheldon Slater MD Estimated body mass index is 28.76 kg/m? as calculated from the following: Height as of this encounter: 185.4 cm (6' 1). Weight as of this encounter: 98.9 kg (218 lb). Most recent hematocrit and potassium results: Hematocrit 38.4 08/23/2024 Potassium 4.7 08/23/2024 Relevant Problems ANESTHESIA (+) REHAN on CPAP CARDIO (+) Coronary artery disease involving [place] coronary artery of [place] heart without angina pectoris (+) Essential hypertension, [...] and consent discussed: yes. Patient / Responsible Democrat agrees to proceed: yes Patient / Surrogate [...] December 13, 2024 TIME: 9:19 AM CSN: [id number] Normal [facility] HISTORY PHYSICALon HISTORY PHYSICAL HNO ID: [id number] Author: SHELDON SLATER MD Service: General Surgery Author Type: Physician Type: H&P Filed: 12/13/2024 08:49 Note Text: HISTORY AND PHYSICAL Rony Monzon 1940 REFERRING PHYSICIAN: George Vaughan MD CHIEF COMPLAINT: Abdominal Mass ([facility] ED f/u - umbilical hernia) [...] Suh CARDIAC CATH N/A 02/02/2015 Completed at [facility] COLONOSCOPY FLX DX W/COLLJ SPEC WHEN PFRMD 07/11/12 Colonoscopy COLONOSCOPY FLX DX W/COLLJ SPEC WHEN PFRMD 02/24/2017 Colonoscopy COLONOSCOPY W/BIOPSY SINGLE/MULTIPLE 03/29/06 ESOPHAGOGASTRODUODENOSC OPY TRANSORAL DIAGNOSTIC 02/24/2017 EGD [place] W/O FACETEC FORAMOT/DSC 05/[address] Cole PAST SURGICAL HISTORY OF Right 2007 knee surgery RPR [place] VAGINALIS HYDROCELE BOTTLE TYPE STENT PLACEMENT 08/2010 [facility] VASECTOMY UNI/BI SPX W/POSTOP SEMEN EXAMS CURRENT [...] masses. N (more content not included)... Normal [facility] OPERATIVE NOon 12-13-2024 OPERATIVE NO HNO ID: [id number] Author: SHELDON SLATER MD Service: General Surgery Author Type: Physician Type: Operative Report Filed: 12/13/2024 10:29 Note Text: OPERATIVE/PROCEDURE REPORT LOG ID: [id number] SURGERY/PROCEDURE DATE: 12/13/2024 INCISION/PROCEDURE START TIME: 9:38 AM INCISION CLOSE/PROCEDURE END TIME: 10:17 AM SURGEON(S)/PROCEDURALIS T(S) AND DRIVER/GUIDE(S): Surgeons and Role: * Sheldon Slater MD - Primary Physician Elastic Cutter: Nury Alvarez PA-C SURGERY/PROCEDURE(S): Umbilical hernia repair [...] procedure well. Nury Alvarez PA-C was my administrative library assistant. She assisted with retraction, visualization and performed skin closure. No additional surgeons or qualified residents were available. PRE-OP/PRE-PROCEDURE DIAGNOSIS: Umbilical hernia (3 cm to 10 cm) POST-OP/POST-PROCEDURE DIAGNOSIS: Same as Preop ESTIMATED BLOOD LOSS: < 25 mls SPECIMENS: None IMPLANTABLE DEVICES: Implant Name Type Inv. Item Serial No. Business Planning Analyst Lot No. LRB No. Used Action MESH PARIETEX 4.6CM SMALL COLLAGEN SURGICAL PATCH SELF CENTER RESORBABLE - [id number] Mesh MESH PARIETEX 4.6CM SMALL COLLAGEN SURGICAL PATCH SELF CENTER RESORBABLE [employer] [id number] N/A 1 Implanted DRAINS: None COMPLICATIONS: None CLOSURE TECHNIQUE: Primary PARTICIPATION IN SURGERY/PROCEDURE: I/primary surgeon/proceduralist performed the procedure with assistance. SIGNATURE: Sheldon Slater III, MD PATIENT NAME: Rony Monzon DATE: December 13, 2024 TIME: 10:14 AM [facility] Gastroenterology Visit Repor ton 12-02-2024 Gastroenterology Visit Report [facility] Gastroenterology [address] [place] [address] OFFICE VISIT Date of Service: 12/02/24 MR#: [id number] Acct: [id number] Name: RONY MONZON RAY Rep #: [id number] : 1940 Provider: LYN dempsey Age/Sex: 84/M Location: [facility] Status: Signed Intake Vital Signs 11/13/24 12:48 [...] 5 mg PO BID blood pressure 1 12/02/24 History multivitamin 1 tab PO [...] breath Dyspnea Precordial chest pain 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 [facility] use of drug Atherosclerotic heart disease of [place] coronary artery without angina pectoris Left thyroid [...] to the office today for establishment with [facility] regarding intermittent difficulty swallowing. He presents with [...] He denies (more content not included)... Normal [facility] 11-29-2024 [facility] Telephone (JOSE ANTONIO) RONY MONZON ([id number]) 1940 M DEF Date Time Provider Department 11/29/24 SINDY DENISE During your visit today, we recorded the following information about you: Sindy Denise APRN.THANG 11/29/2024 10:26 AM Signed Can we request last cardiac OV and testing from [facility] 12/13/24. Sveta Arana LPN 11/29/2024 1:04 PM Signed Printed last office visit and cardiac testing. Scanned into Epic through Onbase scanning. JAYJAY Agrawal Jessica, LPN 12/02/2024 10:03 AM Signed Last office visit printed and scanned into Epic through Onbase scanning. JAYJAY Agrawal Kim E, LPN 12/03/2024 8:30 AM Signed letter has been signed by area development consultant and office visit again scanned into EPIC [...] Date Reviewed: 11/29/2024 Reviewed by: Sindy Denise APRN.FRONT DESK ADMIN - Fully Assessed Prescriptions as of 12/03/2024 [...] instability [R26.81] 06/25/2010 Coronary artery disease involving [place] mahmood*11/23/2010 Anemia [D64.9] 08/20/2013 Nontoxic multinodular goiter [...] Encounter Status:Closed by SVETA ARANA on 12/02/24 Normal [facility] Cardiology Visit Reporton Cardiology Visit Report [facility] [address] [place] [address] OFFICE VISIT Date of Service: 11/29/24 MR#: [id number] Acct: [id number] Name: RONY MONZON Rep #: [id number] : 1940 Provider: LYN velazquez Age/Sex: 84/M [...] 14 day monitor done by neurology at [facility]. He was started on Plavix. From a [...] see vasovagal syncope clinic in Jan at [facility]. Intake Vital Signs 11/13/24 12:48 11/29/24 07:58 11/29/24 08:06 Height 6 ft 1 in 6 ft 1 in Weight: 218 lb BMI 28.8 BP 141/74 H 136/72 H Blood Pressure Location Lt brachial Lt brachial Position Sitting Sitting Respiration 16 Pulse 70 70 Pulse Source Monitor Monitor Intake Visit Reasons: FU BEFORE SURGERY Finisher Card Tender Required: No Accompanied by: Is patient in [...] 5 mg PO BID blood pressure 1 11/29/24 History multivitamin 1 tab PO [...] you fallen in the past year?: No [facility] Medical History COVID-19 ( 01/18/22) Sepsis [...] breath Dyspnea Precordial chest pain 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 Normal [facility] HISTORY PHYSICALon HISTORY PHYSICAL HNO ID: [id number] Author: SINDY DENISE APRN.FRONT DESK ADMIN Service: ? Author Type: Nurse Practitioner Type: H&P Filed: 12/05/2024 11:09 Note Text: [facility] HISTORY AND PHYSICAL EXAMINATION SERVICE DATE: 11/29/2024 SERVICE TIME: 11:08 AM PRIMARY CARE PHYSICIAN: George Vaughan MD Assessment Patient has the following medical conditions which may affect brooke-operative course: Coronary artery disease involving [place] coronary artery of [place] heart without angina pectoris Assessment: s/p stent 2010, c/w daily ASA, statin, and BB. Following [facility], reports normal stress earlier this year, records requested, last OV below: Scan on 12/02/2024 9:57 AM by Provider, External, PANiraliC: Consultation - Cardiology Received cardiac optimization [...] have a large neck STOP-Bang Score: 3 [id number] Score: Age: >=75 Sex: male CHF history: No Hypertension history: Yes Stroke/TIA/thromboembol ism history: Yes Vascular disease history: Yes Diabetes history: No [id number] Score: 6 I - PHYSICAL EVALUATION AIRWAY [...] The patient (more content not included)... [facility] Tele[facility] (PREANME) RONY MONZON ([id number]) 1940 M DEF Date Time Provider Department 11/21/24 ARGENIS JAIN PREANME During your visit today, we recorded the [...] instability [R26.81] 06/25/2010 Coronary artery disease involving [place] mahmood*11/23/2010 Anemia [D64.9] 08/20/2013 Nontoxic multinodular goiter [E04.2] 12/12/2013 Gallbladder polyp [K82.4] 06/10/2014 07/05/2016 Cervicalgia [M54.2] 06/18/2014 Lumbar radiculopathy [M54.16] 07/29/2014 Cervical spondylosis [M47.812] 07/29/2014 Cervical strain [S16.1XXA] 07/29/2014 05/02/2022 Left hip pain [M25.552] 10/29/2014 05/02/2022 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] 02/04/2015 Hip pain [M25.559] 02/04/2015 05/02/2022 DDD (degenerative disc disease), lumbar [M51.36*01 (more content not included)... [facility] 11-20-2024 [facility] Telephone (PREANME) RONY MONZON ([id number]) 1940 M DEF Date Time Provider Department 11/20/24 ARGENIS JAIN During your visit today, we recorded the following information about you: Argenis Jain RN 11/21/2024 10:58 AM Addendum Sent a letter to area development consultant, Dr. Yevgeniy Arguello for preoperative Plavix instructions. 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 Advised to call and re-establish with the [place] [facility]. Argenis Jain RN November 21, [...] Upset Date Reviewed: 11/19/2024 Reviewed by: Natalia Peña, RAUL - Fully Assessed Reason for Visit: Preparations [...] instability [R26.81] 06/25/2010 Coronary artery disease involving [place] mahmood*11/23/2010 Anemia [D64.9] 08/20/2013 Nontoxic multinodular goiter [...] Encounter Status:Closed by CHIDI JAIN on 11/20/24 [facility] 11-19-2024 [facility] Office Visit (GENSWS ) RONY MONZON ([id number]) 1940 M [facility] Date Time Provider Department 11/19/24 10:15 AM SHELDON SLATER During your visit today, we recorded the following information about you: Temperature Pulse Respiration Blood pressure 97.1 degrees 81/minute 19/minute 136/64 Weight Height 98.3 kg 1.854 m Sheldon Slater MD 11/19/2024 10:48 AM Signed HISTORY AND PHYSICAL Rony Monzon 1940 REFERRING PHYSICIAN: George Vaughan MD CHIEF COMPLAINT: Abdominal Mass ([facility] ED f/u - umbilical hernia) [...] Suh CARDIAC CATH N/A 02/02/2015 Completed at [facility] COLONOSCOPY FLX DX W/COLLJ SPEC WHEN PFRMD 07/11/12 Colonoscopy COLONOSCOPY FLX DX W/COLLJ SPEC WHEN PFRMD 02/24/2017 Colonoscopy COLONOSCOPY W/BIOPSY SINGLE/MULTIPLE 03/29/06 ESOPHAGOGASTRODUODENOSC OPY TRANSORAL DIAGNOSTIC 02/24/2017 EGD SHARP W/O FACETEC FORAMOT/DSC 05/[address] Cole PAST SURGICAL HISTORY OF Right 2007 knee surgery RPR [place] VAGINALIS HYDROCELE BOTTLE TYPE STENT PLACEMENT 08/2010 [facility] VASECTOMY UNI/BI SPX W/POSTOP SEMEN EXAMS Current [...] is unre (more content not included)... Normal [facility] Abdomen/Pelvis W IV Cont ONL Yon 11-13-2024 Abdomen/Pelvis W IV Cont ONLY [facility] Imaging Services [address] [place], [place] [id number] Abdomen/Pelvis W IV Cont ONLY MR#: [id number] Acct: [id number] Name: RONY MONZON Rep #: [id number] : 1940 M 84 From: Esperanza Barrios nd, MD PCP: Dr. George Vaughan MD Status: REG ER Study: Abdomen/Pelvis W IV Cont ONLY Date of Exam: Exam# [id number] Ordering Dr: Petr Perry DO PROCEDURE: ABDOMEN/PELVIS [...] IMPRESSION: No acute abdominopelvic finding. Reading Location: [facility] CC: Dr. Petr Perry DO; Dr. George Vaughan MD Marriage And Family Counselor: Signed Normal [facility] Absolute lymphocyte countOrd ered By: Petr Perry on 11-13-2024 Lymphocytes Auto (Unsp spec) [#/Vol] 1.27 10*3/uL 0.83-4.51 [facility] Absolute neutrophil countOrd ered By: Petr Perry on 11-13-2024 Neutrophils (Bld) [#/Vol] 6.7 10*3/uL 2.0-7.7 [facility] Anion gap in Serum or Plasma Ordered By: Petr Perry on 11-13-2024 Anion gap [Moles/Vol] 11 mmol/L 5- [facility] Automated lymphocyte count a s percentage of total leukocytesOrdered By: Petr Perry on 11-13-2024 Lymphocytes/100 WBC Auto (Unsp spec) 13.8 % Low 19-41 [facility] BUN/creatinine ratioOrdered By: Petr Perry on 11-13-2024 Urea nitrogen/Creatinine [Mass ratio] 12.9 mg/mg 10-20 [facility] Basophil percentageOrdered B y: Petr Perry on 11-13-2024 Basophils/100 WBC (Bld) 0.9 % 0-1 [facility] Bilirubin, totalOrdered By: Petr Perry on 11-13-2024 Bilirubin [Mass/Vol] 0.37 mg/dL 0.00-1.30 [facility] CBC W/Diff, Automatedon 10-21 Absolute Lymph 1.27 X10 3/uL Normal 0.83-4.51 [facility] Comment on above: Performed By: #### L 100.0100, L500.4050, L501.2450 #### [facility] [address] [place], [address] Absolute Neut 6.7 X10 3/uL Normal 2.0-7.7 [facility] Comment on above: Performed By: #### L 100.0100, L500.4050, L501.2450 #### [facility] [address] [place], [address] Basophils/100 WBC (Bld) 0.9 % Normal 0-1 [facility] Comment on above: Performed By: #### L 100.0100, L500.4050, L501.2450 #### [facility] [address] [place], [address] Eosinophils/100 WBC (Bld) 2.4 % Normal 0-5 [facility] Comment on above: Performed By: #### L 100.0100, L500.4050, L501.2450 #### [facility] [address] [place], [address] Erythrocyte distribution width (RBC) [Ratio] 13.4 % Normal 11.6-14.6 [facility] Comment on above: Performed By: #### L 100.0100, L500.4050, L501.2450 #### [facility] [address] [place], [address] Hematocrit (Bld) [Volume fraction] 35.2 % Low 40-54 [facility] Comment on above: Performed By: #### L 100.0100, L500.4050, L501.2450 #### [facility] [address] [place], [address] Hemoglobin (Bld) [Mass/Vol] 11.7 g/dL Low 13.0-16.5 [facility] Comment on above: Performed By: #### L 100.0100, L500.4050, L501.2450 #### [facility] [address] [place], [address] IG% 0.800 Normal 0.0-0.9 [facility] Comment on above: Result Comment: IG% - Immature Granulocytes (promyelocytes, myelocytes and metamyelocytes) > 1% indicates that a LEFT SHIFT is Present. Performed By: #### L 100.0100, L500.4050, L501.2450 #### [facility] [address] [place], [address] Lymphocytes/100 WBC (Bld) 13.8 % Low 19-41 [facility] Comment on above: Performed By: #### L 100.0100, L500.4050, L501.2450 #### [facility] [address] [place], [address] MCH (RBC) [Entitic mass] 31.3 pg Normal 27.0-32.0 [facility] Comment on above: Performed By: #### L 100.0100, L500.4050, L501.2450 #### [facility] [address] [place], [address] MCHC (RBC) [Mass/Vol] 33.2 g/dL Normal 32-36 [facility] Comment on above: Performed By: #### L 100.0100, L500.4050, L501.2450 #### [facility] [address] [place], [address] MCV (RBC) [Entitic vol] 94.1 fL High 80-94 [facility] Comment on above: Performed By: #### L 100.0100, L500.4050, L501.2450 #### [facility] [address] [place], [address] Monocytes/100 WBC (Bld) 10.1 % High 0-10 [facility] Comment on above: Performed By: #### L 100.0100, L500.4050, L501.2450 #### [facility] [address] [place], [address] Neutrophils/100 WBC (Bld) 72.0 % High 47-70 [facility] Comment on above: Performed By: #### L 100.0100, L500.4050, L501.2450 #### [facility] [address] [place], [address] Nucleated RBC (Bld) [#/Vol] 0 10*3/uL Normal 0-5 [facility] Comment on above: Performed By: #### L 100.0100, L500.4050, L501.2450 #### [facility] [address] [place], [address] Platelet mean volume (Bld) [Entitic vol] 10.2 fL Normal 6.2-12.0 [facility] Comment on above: Performed By: #### L 100.0100, L500.4050, L501.2450 #### [facility] [address] [place], [address] Platelets (Bld) [#/Vol] 381 10*3/uL Normal 150-450 [facility] Comment on above: Performed By: #### L 100.0100, L500.4050, L501.2450 #### [facility] [address] [place], [address] RBC (Bld) [#/Vol] 3.74 10*6/uL Low 4.6-6.2 [facility] Comment on above: Performed By: #### L 100.0100, L500.4050, L501.2450 #### [facility] [address] [place], [address] RDW SD 46.6 fl High 35.1-43.9 [facility] Comment on above: Performed By: #### L 100.0100, L500.4050, L501.2450 #### [facility] [address] [place], [address] WBC (Bld) [#/Vol] 9.2 10*3/uL Normal 4.4-11.0 [facility] Comment on above: Performed By: #### L 100.0100, L500.4050, L501.2450 #### [facility] [address] [place], [address] Carbon dioxide, total [Moles /volume] in Central venous bloodOrdered By: Petr Perry on 11-13-2024 CO2 [Moles/Vol] 25.1 mmol/L 21.0-32.0 [facility] Chest PA and Lateralon 11-13 Chest PA and Lateral [facility] Imaging Services [address] [place] [address] Chest PA and Lateral MR#: [id number] Acct: [id number] Name: RONY MONZON Rep #: [id number] : 1940 M 84 From: Jack Miranda PCP: Dr. George Vaughan MD Status: REG ER Study: Chest PA and Lateral Date of Exam: 11/13/24 Exam# [id number] Ordering Dr: Petr Perry DO PROCEDURE: CHEST PA AND LATERAL 11/13/2024 REASON FOR EXAM: CHEST PAIN TECHNIQUE: CHEST PA AND LATERAL COMPARISON: 07/28/2024 FINDINGS: Bibasilar subsegmental atelectasis. Mild pulmonary vascular congestion. No focal consolidation. No pleural effusion or pneumothorax. Cardiac silhouette is unchanged. No acute fractures. RAD/Chest PA and Lateral IMPRESSION: Mild pulmonary vascular congestion. No focal consolidation. Stable mild cardiomegaly. Reading Location: [id number] CC: Dr. Petr Perry DO; Dr. George Vaughan MD Marriage And Family Counselor: Signed Normal [facility] Chloride assayOrdered By: Mukesh Perry on 11-13-2024 Chloride [Moles/Vol] 100 mmol/L 98-108 [facility] Comprehensive Metabolic Prof ilon 11-13-2024 Albumin [Mass/Vol] 3.7 g/dL Normal 3.4-4.8 [facility] Comment on above: Performed By: #### L 100.0100, L500.4050, L501.2450 #### [facility] [address] [place], [address] Albumin/Globulin [Mass ratio] 1.2 {ratio} Normal 0.9-2.4 [facility] Comment on above: Performed By: #### L 100.0100, L500.4050, L501.2450 #### [facility] [address] [place], [address] ALK PHOS 105 U/L Normal 40-129 [facility] Comment on above: Performed By: #### L 100.0100, L500.4050, L501.2450 #### [facility] [address] [place], [address] ALT [Catalytic activity/Vol] 23 U/L Normal <=46 [facility] Comment on above: Performed By: #### L 100.0100, L500.4050, L501.2450 #### [facility] [address] [place], [address] AST [Catalytic activity/Vol] 26 U/L Normal <=37 [facility] Comment on above: Performed By: #### L 100.0100, L500.4050, L501.2450 #### [facility] [address] [place], [address] Bilirubin [Mass/Vol] 0.37 mg/dL Normal 0.00-1.30 [facility] Comment on above: Performed By: #### L 100.0100, L500.4050, L501.2450 #### [facility] [address] [place], [address] BUN/CRE 12.9 RATIO Normal 10-20 [facility] Comment on above: Performed By: #### L 100.0100, L500.4050, L501.2450 #### [facility] [address] [place], [address] Calcium [Mass/Vol] 9.2 mg/dL Normal 7.6-11.0 [facility] Comment on above: Performed By: #### L 100.0100, L500.4050, L501.2450 #### [facility] [address] [place], [address] Chloride [Moles/Vol] 100 mmol/L Normal 98-108 [facility] Comment on above: Performed By: #### L 100.0100, L500.4050, L501.2450 #### [facility] [address] [place], [address] CO2 [Moles/Vol] 25.1 mmol/L Normal 21.0-32.0 [facility] Comment on above: Performed By: #### L 100.0100, L500.4050, L501.2450 #### [facility] [address] [place], [address] Creatinine [Mass/Vol] 1.00 mg/dL Normal 0.70-1.20 [facility] Comment on above: Performed By: #### L 100.0100, L500.4050, L501.2450 #### [facility] [address] [place], [address] ECRCL 69.78 ml/min Normal 50-250 [facility] Comment on above: Performed By: #### L 100.0100, L500.4050, L501.2450 #### [facility] [address] [place], [address] GAP 11 Normal 5-15 [facility] Comment on above: Performed By: #### L 100.0100, L500.4050, L501.2450 #### [facility] [address] [place], [address] GFR/1.73 sq M.predicted among non-blacks MDRD (S/P/Bld) [Vol rate/Area] 75 mL/min/{1.73_m2} Normal >60 [facility] Comment on above: Result Comment: mL/m in/1.73m2 CKD-EPI Creatinine Equation (2020) Performed By: #### L 100.0100, L500.4050, L501.2450 #### [facility] [address] [place], [address] Globulin (S) [Mass/Vol] 3.2 g/dL Normal 2.2-4.2 [facility] Comment on above: Performed By: #### L 100.0100, L500.4050, L501.2450 #### [facility] [address] [place], [address] Glucose [Mass/Vol] 94 mg/dL Normal 70-99 [facility] Comment on above: Performed By: #### L 100.0100, L500.4050, L501.2450 #### [facility] [address] [place], [address] Potassium [Moles/Vol] 4.4 mmol/L Normal 3.3-5.1 [facility] Comment on above: Performed By: #### L 100.0100, L500.4050, L501.2450 #### [facility] [address] [place], [address] Sodium [Moles/Vol] 135 mmol/L Normal 133-145 [facility] Comment on above: Performed By: #### L 100.0100, L500.4050, L501.2450 #### [facility] [address] [place], [address] T PROT 6.9 g/dL Normal 5.9-8.4 [facility] Comment on above: Performed By: #### L 100.0100, L500.4050, L501.2450 #### [facility] [address] [place], [address] Urea nitrogen [Mass/Vol] 13 mg/dL Normal 4-19 [facility] Comment on above: Performed By: #### L 100.0100, L500.4050, L501.2450 #### [facility] [address] [place], [address] Emergency Department Summary on 11-13-2024 Emergency Department Summary [facility] Medical Records Department [address] [place] [address] Emergency Department Summary 11/13/24 MR#: [id number] Acct: [id number] Name: RONY MONZON Rep #: [id number] : 1940 84 From: Petr Perry DO [...] intact Psych: Cooperative, appropriate mood and affect PFSH [facility] Medical History COVID-19 ( 01/18/22) Sepsis [...] breath Dyspnea Precordial chest pain 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 [facility] use of drug Atherosclerotic heart disease of [place] coronary artery without angina pectoris Left thyroid [...] History (Review (more content not included)... Normal [facility] Eosinophil percentageOrdered By: Petr Perry on 11-13-2024 Eosinophils/100 WBC (Bld) 2.4 % 0-5 [facility] Erythrocyte distribution wid th ratioOrdered By: Petr Perry on 11-13-2024 Erythrocyte distribution width (RBC) [Ratio] 13.4 % 11.6-14.6 [facility] Erythrocyte distribution wid th standard deviationOrdered By: Petr Severino on 11-13-2024 Erythrocyte distribution width (RBC) [Ratio] 46.6 fl High 35.1-43.9 [facility] Glomerular filtration rate ( GFR) estimation/1.73 sq m using serum, plasma, or whole bOrdered By: Petr Perry on 11-13-2024 GFR/1.73 sq M.predicted among non-blacks MDRD (S/P/Bld) [Vol rate/Area] 75 mL/min/{1.73_m2} >60 [facility] Comment on above: mL/min/1.73m2 CKD-EP I Creatinine Equation (2020) Hematocrit Auto (Bld) [Volum e fraction]Ordered By: Petr Perry on 11-13-2024 Hematocrit (Bld) [Volume fraction] 35.2 % Low 40-54 [facility] Hemoglobin measurementOrdere d By: Petr AlanajulitaMaycol on 11-13-2024 Hemoglobin (Bld) [Mass/Vol] 11.7 g/dL Low 13.0-16.5 [facility] Immature granulocytes/100 WB C Auto (Bld)Ordered By: Petrtia Perry on 11-13-2024 Immature granulocytes/100 WBC (Bld) 0.800 % 0.0-0.9 [facility] Comment on above: IG% - Immature Granu locytes (promyelocytes, myelocytes and metamyelocytes) > 1% indicates that a LEFT SHIFT is Present. L499.0042on 11-13-2024 Trop T High Sen 19 ng/L Normal <=22 [facility] Comment on above: Performed By: #### L 499.0042 #### [facility] [address] [place], [place], [address] L501.4021on 11-13-2024 Trop T High Sen 22 ng/L Normal <=22 [facility] Comment on above: Performed By: #### L 501.4021 ####[facility] [address] [place], [place], [address] Laboratory - Chemistry and C hemistry - challengeOrdered By: Petrtia Perry on 11-13-2024 AST [Catalytic activity/Vol] 26 U/L <38 [facility] Lipaseon 11-13-2024 Lipase [Catalytic activity/Vol] 28 U/L Normal 13-75 [facility] Comment on above: Result Comment: Gayla ordoñez note: LIPASE revised reference range effective 22. New Lipase methodology. Expected to produce lower values than the previous assay method. NEW Reference Range: 13 - 75 U/L Performed By: #### L 100.0100, L500.4050, L501.2450 #### [facility] [address] [place], [place], [address] Lipase measurementOrdered By : Petr Perry on 11-13-2024 Lipase [Catalytic activity/Vol] 28 U/L 13-75 [facility] Comment on above: Please note:LIPASE r evised reference range effective 22. New Lipase methodology. Expected to produce lower values than the previous assay method. NEW Reference Range: 13 - 75 U/L MCV (mean corpuscular volume ) determinationOrdered By: Petr Perry on 11-13-2024 MCV (RBC) [Entitic vol] 94.1 fL High 80-94 [facility] Mean corpuscular hemoglobin (MCH) determinationOrdered By: Petr Perry on 11-13-2024 MCH (RBC) [Entitic mass] 31.3 pg 27.0-32.0 [facility] Mean corpuscular hemoglobin concentration (MCHC) determinationOrdered By: Petr Perry on 11-13-2024 MCHC (RBC) [Mass/Vol] 33.2 g/dL 32-36 [facility] Mean platelet volume determi nationOrdered By: Petr Perry on 11-13-2024 Platelet mean volume (Bld) [Entitic vol] 10.2 fL 6.2-12.0 [facility] Monocyte percentageOrdered B y: Petr Perry on 11-13-2024 Monocytes/100 WBC (Bld) 10.1 % High 0-10 [facility] Neutrophil percentageOrdered By: Petr Perry on 11-13-2024 Neutrophils/100 WBC (Bld) 72.0 % High 47-70 [facility] Nucleated red blood cell per centageOrdered By: Petr Perry on 11-13-2024 Nucleated RBC/100 WBC (Bld) [Ratio] 0 % 0-5 [facility] Platelet countOrdered By: Mukesh Perry on 11-13-2024 Platelets (Bld) [#/Vol] 381 10*3/uL 150-450 [facility] Potassium measurement (mass/ volume)Ordered By: Petr Perry on 11-13-2024 Potassium (Unsp spec) [Mass/Vol] 4.4 mmol/L 3.3-5.1 [facility] RBC Auto (Bld) [#/Vol]Ordere d By: Petr Perry on 11-13-2024 RBC (Bld) [#/Vol] 3.74 10*6/uL Low 4.6-6.2 [facility] Serum creatinine measurement (mass/volume)Ordered By: Petr Perry on 11-13-2024 Creatinine [Mass/Vol] 1.00 mg/dL 0.70-1.20 [facility] Serum globulin measurementOr dered By: Petr Perry on 11-13-2024 Globulin (S) [Mass/Vol] 3.2 g/dL 2.2-4.2 [facility] Serum glucose measurement (m ass/volume)Ordered By: Petr Perry on 11-13-2024 Glucose [Mass/Vol] 94 mg/dL 70-99 [facility] Serum or plasma alanine stephens otransferase (ALT) measurementOrdered By: Petr Perry on 11-13-2024 ALT [Catalytic activity/Vol] 23 U/L <47 [facility] Serum or plasma albumin obdulia urement (mass/volume)Ordered By: Pter Severino on 11-13-2024 Albumin [Mass/Vol] 3.7 g/dL 3.4-4.8 [facility] Serum or plasma albumin/glob ulin mass ratioOrdered By: Petr Perry on 11-13-2024 Albumin/Globulin [Mass ratio] 1.2 {ratio} 0.9-2.4 [facility] Serum or plasma alkaline claudio sphatase measurementOrdered By: Petr Perry on 11-13-2024 ALP [Catalytic activity/Vol] 105 U/L 40-129 [facility] Serum or plasma calcium obdulia urement (mass/volume)Ordered By: Petr Severino on 11-13-2024 Calcium [Mass/Vol] 9.2 mg/dL 7.6-11.0 [facility] Serum or plasma urea nitroge n measurement (mass/volume)Ordered By: Petr Perry on 11-13-2024 Urea nitrogen [Mass/Vol] 13 mg/dL 4-19 [facility] Sodium levelOrdered By: Armando Perry on 11-13-2024 Sodium [Moles/Vol] 135 mmol/L 133-145 [facility] Total proteinOrdered By: Jaswant Perry on 11-13-2024 Protein [Mass/Vol] 6.9 g/dL 5.9-8.4 [facility] Troponin T.cardiac [Mass/vol ume] in Serum or Plasma by High sensitivity methodOrdered By: Petr Perry on 11-13-2024 Troponin T.cardiac High sensitivity method [Mass/Vol] 19 ng/L <22 [facility] Troponin T.cardiac High sensitivity method [Mass/Vol] 22 ng/L <22 [facility] White blood cell (WBC) count Ordered By: Petr Perry on 11-13-2024 WBC (Bld) [#/Vol] 9.2 10*3/uL 4.4-11.0 [facility] CNPNon 09-27-[facility]24 [facility] RONY MONZ[facility] ([id number]) 1940 M DEF Date Time Provider Department 09/27/24 LANDON STRANGE JR During your visit today, we recorded the following information about you: Landon Strange Jr., MD 09/27/2024 4:10 PM Signed Procedure clearance requested by [facility]. Note that [...] the physician performing the procedure as a clinical consultant I do not know and unaware of all risks. Note that the above risks -- holding Plavix for procedure -- were not directly discussed with the patient or patient's guardian at the time of his last visit on 01/26/24. MD Roderick Morrow Gillian, OCCA 10/03/2024 4:52 PM Signed Note below and form for surgical clearance faxed back to [facility]. VINCENT Landeros Allergies As [...] instability [R26.81] 06/25/2010 Coronary artery disease involving ysleta del sur mahmood*11/23/2010 Anemia [D64.9] 08/20/2013 Nontoxic multinodular goiter [...] WILY (generaliz (more content not included)... Normal [facility] 25(OH)D3 [facility] 2024 25-hydroxyvitamin D3 [Mass/Vol] 20.4 ng/mL Low 31.0-80.0 [facility] Comment on above: Order Comment: Speci men Type: BLOOD SPECIMENOrdering Facility: [facility] Address: [address] [place] [address] Performed By: #### 1 989-3 ####[facility] [id number] [place] [address] [place] CBC panel Auto (Bld)on 08-23 Erythrocyte distribution width (RBC) [Ratio] 13.0 % Normal 11.5-15.0 [facility] Comment on above: Order Comment: Speci men Type: BLOOD SPECIMENOrdering Facility: [facility] Address: [address] [place] [address] Performed By: #### 5 8410-2 ####[facility] LABIA [id number] [place] [address] [place] Hematocrit (Bld) [Volume fraction] 38.4 % Low 39.0-51.0 [facility] Comment on above: Order Comment: Speci men Type: BLOOD SPECIMENOrdering Facility: [facility] Address: [address] [place] [address] Performed By: #### 5 8410-2 ####[facility] LABCLIA [id number] [place] [address] [place] Hemoglobin (Bld) [Mass/Vol] 12.7 g/dL Low 13.0-17.0 [facility] Comment on above: Order Comment: Speci men Type: BLOOD SPECIMENOrdering Facility: [facility] Address: [address] [place] [address] Performed By: #### 5 8410-2 ####[facility] LABCLIA [id number] [place] [address] [place] MCH (RBC) [Entitic mass] 31.6 pg Normal 26.0-34.0 [facility] Comment on above: Order Comment: Speci men Type: BLOOD SPECIMENOrdering Facility: [facility] Address: [address] [place] [address] Performed By: #### 5 8410-2 ####[facility] LABCLIA [id number] [place] [address] [place] MCHC (RBC) [Mass/Vol] 33.1 g/dL Normal 30.5-36.0 [facility] Comment on above: Order Comment: Speci men Type: BLOOD SPECIMENOrdering Facility: [facility] Address: [address] [place] [address] Performed By: #### 5 8410-2 ####[facility] LABCLIA [id number] [place] [address] [place] MCV (RBC) [Entitic vol] 95.5 fL Normal 80.0-100.0 [facility] Comment on above: Order Comment: Speci men Type: BLOOD SPECIMENOrdering Facility: [facility] Address: [address] [place] [address] Performed By: #### 5 8410-2 ####[facility] LABCLIA [id number] [address] [place] [address] [place] Nucleated RBC (Bld) [#/Vol] 10*3/uL Normal <0.01 [facility] Comment on above: Order Comment: Speci men Type: BLOOD SPECIMENOrdering Facility: [facility] Address: [address] [place] [address] Performed By: #### 5 8410-2 ####[facility] LABIA [id number] [address], [place] [address] [place] Platelet mean volume (Bld) [Entitic vol] 10.8 fL Normal 9.0-12.7 [facility] Comment on above: Order Comment: Speci men Type: BLOOD SPECIMENOrdering Facility: [facility] Address: [address] [place] [address] Performed By: #### 5 8410-2 ####[facility] LABIA [id number] [place] [address] [place] Platelets (Bld) [#/Vol] 334 10*3/uL Normal 150-400 [facility] Comment on above: Order Comment: Speci men Type: BLOOD SPECIMENOrdering Facility: [facility] Address: [address] [place] [address] Performed By: #### 5 8410-2 ####[facility] LABIA [id number] [place] [address] [place] RBC (Bld) [#/Vol] 4.02 10*6/uL Low 4.20-6.00 [facility] Comment on above: Order Comment: Speci men Type: BLOOD SPECIMENOrdering Facility: [facility] Address: [address] [place] [address] Performed By: #### 5 8410-2 ####[facility] LABIA [id number] [place] [id number] [place] WBC (Bld) [#/Vol] 8.98 10*3/uL Normal 3.70-11.00 [facility] Comment on above: Order Comment: Speci men Type: BLOOD SPECIMENOrdering Facility: [facility] Address: [address] [place] [address] Performed By: #### 5 8410-2 ####[facility] LABCLIA [id number] [place] [address] [address] OF [facility] CNPNon 08-23-2024 CNPN Telephone ([facility]) RONY MONZON ([id number]) 1940 M [facility] Date Time Provider Department 08/23/24 JESSY WELDON [facility] During your visit today, we recorded the [...] Fully Assessed Reason for Visit: Patient Question [7006] Primary Visit Diagnosis:Orthostatic hypotension [I95.1] Order(s):CONSULT TO NEUROLOGY [3558] Order #: [id number]: 1 FUTURE Prescriptions as of 08/24/2024 - [...] instability [R26.81] 06/25/2010 Coronary artery disease involving ysleta del sur mahmood*11/23/2010 Anemia [D64.9] 08/20/2013 Nontoxic multinodular goiter [...] Status:Closed by JESSY WELDON on 08/23/24 Normal [facility] Comprehensive metabolic 2000 panelon 08-23-2024 Albumin [Mass/Vol] 3.8 g/dL Low 3.9-4.9 [facility] Comment on above: Order Comment: Speci men Type: BLOOD SPECIMENOrdering Facility: [facility] Address: [address] [place] [address] Performed By: #### 2 4331-1, 21886-6 ####[facility] LABCLIA [id number] [place] [id number] [place] ALP [Catalytic activity/Vol] 108 U/L Normal 38-113 [facility] Comment on above: Order Comment: Speci men Type: BLOOD SPECIMENOrdering Facility: [facility] Address: [address] [place] [address] Performed By: #### 2 4331-1, 35746-0 ####[facility] LABCLIA [id number] [place] [id number] [place] ALT [Catalytic activity/Vol] 22 U/L Normal 10-54 [facility] Comment on above: Order Comment: Speci men Type: BLOOD SPECIMENOrdering Facility: [facility] Address: [address] [place] [address] Performed By: #### 2 4331-1, 28181-5 ####[facility] LABCLIA [id number] [address] [address] [place] Anion gap [Moles/Vol] 9 mmol/L Normal 8-15 [facility] Comment on above: Order Comment: Speci men Type: BLOOD SPECIMENOrdering Facility: [facility] Address: [address] [place] [address] Performed By: #### 2 4331-1, 18675-6 ####[facility] LABCLIA [id number] [place] [id number] [place] AST [Catalytic activity/Vol] 25 U/L Normal 14-40 [facility] Comment on above: Order Comment: Speci men Type: BLOOD SPECIMENOrdering Facility: [facility] Address: [address] [place] [address] Performed By: #### 2 4331-1, 08151-9 ####[facility] LABIA [id number] [place] [id number] [place] Bilirubin [Mass/Vol] 0.5 mg/dL Normal 0.2-1.3 [facility] Comment on above: Order Comment: Speci men Type: BLOOD SPECIMENOrdering Facility: [facility] Address: [address] [place] [address] Performed By: #### 2 4331-1, 11979-9 ####[facility] LABIA [id number] [place] [address] [place] Calcium [Mass/Vol] 9.7 mg/dL Normal 8.5-10.2 [facility] Comment on above: Order Comment: Speci men Type: BLOOD SPECIMENOrdering Facility: [facility] Address: [address] [place] [address] Performed By: #### 2 4331-1, 82181-2 ####[facility] LABIA [id number] [place] [id number] [place] Chloride [Moles/Vol] 103 mmol/L Normal 98-107 [facility] Comment on above: Order Comment: Speci men Type: BLOOD SPECIMENOrdering Facility: [facility] Address: [address] [place] [address] Performed By: #### 2 4331-1, 04142-7 ####[facility] LABCLIA [id number] [place] [id number] [place] CO2 [Moles/Vol] 26 mmol/L Normal 22-30 [facility] Comment on above: Order Comment: Speci men Type: BLOOD SPECIMENOrdering Facility: [facility] Address: [address] [place] [address] Performed By: #### 2 4331-1, ####[facility] LABCLIA [id number] [address] [address] [place] Creatinine [Mass/Vol] 1.12 mg/dL Normal 0.73-1.22 [facility] Comment on above: Order Comment: Speci men Type: BLOOD SPECIMENOrdering Facility: [facility] Address: [address] [place] [address] Performed By: #### 2 433-, ####[facility] LABCLIA [id number] [address] [address] [place] Creatinine and Glomerular filtration rate.predicted panel (S/P/Bld) 65 mL/min/1.73m??? Normal >=60 [facility] Comment on above: Order Comment: Speci men Type: BLOOD SPECIMENOrdering Facility: [facility] Address: [address] [place] [address] Result Comment: Sarah mated Glomerular Filtration Rate [...] accurately reflect actual GFR. Performed By: #### 2 4331-1, ####[facility] LABCLIA [id number] [address] [address] [place] Glucose [Mass/Vol] 114 mg/dL High 74-99 [facility] Comment on above: Order Comment: Speci men Type: BLOOD SPECIMENOrdering Facility: [facility] Address: [address] [place] [address] Result Comment: The [place] Diabetes Association (ADA) provides guidance for cutoff [...] Standards of Medical Care in Diabetes 2016, [place] Diabetes Association. Diabetes Care. 2016.39(Suppl 1). Performed By: #### 2 4331-1, 20362-7 ####[facility] LABIA [id number] [place] [address] [place] Potassium [Moles/Vol] 4.7 mmol/L Normal 3.7-5.1 [facility] Comment on above: Order Comment: Speci men Type: BLOOD SPECIMENOrdering Facility: [facility] Address: [address] [place] [address] Performed By: #### 2 4331-, 23191-7 ####[facility] LABIA [id number] [place] [address] [place] Protein [Mass/Vol] 6.8 g/dL Normal 6.3-8.0 [facility] Comment on above: Order Comment: Speci men Type: BLOOD SPECIMENOrdering Facility: [facility] Address: [address] [place] [address] Performed By: #### 2 4331-, 33898-5 ####[facility] LABIA [id number] [address] [address] [place] Sodium [Moles/Vol] 138 mmol/L Normal 136-144 [facility] Comment on above: Order Comment: Speci men Type: BLOOD SPECIMENOrdering Facility: [facility] Address: [address] [place] [address] Performed By: #### 2 4331-1, 10701-1 ####[facility] LABCLIA [id number] [address] [address] [place] Urea nitrogen [Mass/Vol] 15 mg/dL Normal 9-24 [facility] Comment on above: Order Comment: Juan Josei men Type: BLOOD SPECIMENOrdering Facility: [facility] Address: [address] [place] [address] Performed By: #### 2 4331-1, ####[facility] LABCLIA [id number] [address] [address] [place] HbA1c (Bld)on 08-23-2024 Average glucose Estimated from glycated hemoglobin (Bld) [Mass/Vol] 117 mg/dL Normal [facility] Comment on above: Order Comment: [facility] Type: BLOOD SPECIMENOrdering Facility: [facility] Address: [address] [place] [address] Result Comment: eAG: (Estimated average glucose) is a calculated value from HgbA1c and is escrow representative of the average blood glucose level in the last 2-3 month period. Performed By: #### 5 5454-3 ####[facility] LABIA [id number] [address] [place] [address] [place] HbA1c (Bld) [Mass fraction] 5.7 % High 4.3-5.6 [facility] Comment on above: Order Comment: Speci [facility] Type: BLOOD SPECIMENOrdering Facility: [facility] Address: [address] [place] [address] Result Comment: Amer [place] Diabetes Association guidelines indicate that patients with HgbA1c in the range 5.7-6.4% are at increased risk for development of diabetes, and intervention by lifestyle modification may be beneficial. HgbA1c greater or equal to 6.5% is considered diagnostic of diabetes. Performed By: #### 5 5454-3 ####[facility] LABCLIA [id number] [address] [address] [place] Lipid 1996 panelon 5 Cholesterol [Mass/Vol] 170 mg/dL Normal <200 [facility] Comment on above: Order Comment: Speci men Type: BLOOD SPECIMENOrdering Facility: [facility] Address: [address] [place] [address] Result Comment: <200 mg/dL, Desirable 200-239 mg/dL, Borderline high >239 mg/dL, High Performed By: #### 2 4331-1, 89491-9 ####[facility] LABCLIA [id number] [facility] [id number] [address] [place] Cholesterol in HDL [Mass/Vol] 45 mg/dL Normal >39 [facility] Comment on above: Order Comment: Speci men Type: BLOOD SPECIMENOrdering Facility: [facility] Address: [address] [place] [address] Result Comment: 40-5 9 mg/dL, Acceptable >59 mg/dL, High: Negative risk factor for coronary heart disease <40 mg/dL, Low: Positive risk factor for coronary heart disease Performed By: #### 2 4331-1, 10013-7 ####[facility] LABCLIA [id number] [facility] [id number], [place] [address] [place] Cholesterol in LDL [Mass/Vol] 96 mg/dL Normal <100 [facility] Comment on above: Order Comment: Speci men Type: BLOOD SPECIMENOrdering Facility: [facility] Address: [address] [place] [address] Result Comment: <100 mg/dL, Optimal 100-129 mg/dL, Near optimal/above optimal 130-159 mg/dL, Borderline high 160-189 mg/dL, High >189 mg/dL, Very high Secondary prevention optimal LDL Cholesterol levels are recommended to be < 70 mg/dL Performed By: #### 2 4331-1, 72952-6 ####[facility] LABCLIA [id number] [facility] [address] [id number], [place] [address] [place] Cholesterol in LDL/Cholesterol in HDL [Mass ratio] 2.13 {ratio} Normal <2.54 [facility] Comment on above: Order Comment: Speci men Type: BLOOD SPECIMENOrdering Facility: [facility] Address: [address] [place] [address] Result Comment: Yuri lechuga: 1. National Cholesterol Education Program ATP III Guideline At-A-Glance Quick Desk Reference: National Heart, Lung, and Blood [place]. National Institutes of Health. 2001: NIH Publication No. 01-3305. 2. An International Atherosclerosis Society position paper: global recommendations for the management of dyslipidemia: executive summary, Atherosclerosis. 2014: 232(2):410-413. Performed By: #### 2 4331-1, ####[facility] LABCLIA [id number] [place] [address] [place] Cholesterol in VLDL [Mass/Vol] 29 mg/dL Normal <30 [facility] Comment on above: Order Comment: Speci men Type: BLOOD SPECIMENOrdering Facility: [facility] Address: [address] [place] [address] Performed By: #### 2 4331-, ####[facility] LABIA [id number] [place] [address] [place] Cholesterol non HDL [Mass/Vol] 125 mg/dL Normal <130 [facility] Comment on above: Order Comment: Juan Josei men Type: BLOOD SPECIMENOrdering Facility: [facility] Address: [address] [place] [address] Result Comment: <130 mg/dL, Optimal 130-159 mg/dL, Near optimal/above optimal 160-189 mg/dL, Borderline high 190-219 mg/dL, High >219 mg/dL, Very high Secondary prevention optimal non HDL Cholesterol levels are recommended to be <100 mg/dL Performed By: #### 2 4331-1, 28161-9 ####[facility] LABCLIA [id number] [address] [address] [place] Cholesterol.total/Cristina sterol in HDL [Mass ratio] 3.78 {ratio} Normal <5.10 [facility] Comment on above: Order Comment: Speci men Type: BLOOD SPECIMENOrdering Facility: [facility] Address: [address] [place] [address] Performed By: #### 2 4331-1, 69339-1 ####[facility] LABCLIA [id number] [place] [address] [place] FASTING TIME 12 hrs Normal [facility] Comment on above: Order Comment: Speci men Type: BLOOD SPECIMENOrdering Facility: [facility] Address: [address] [place] [address] Performed By: #### 2 4331-1, ####[facility] LABCLIA [id number] [place] [address] [place] Triglyceride [Mass/Vol] 143 mg/dL Normal <150 [facility] Comment on above: Order Comment: Speci men Type: BLOOD SPECIMENOrdering Facility: [facility] Address: [address] [place] [address] Result Comment: <150 mg/dL, Normal 150-199 mg/dL, Borderline high 200-499 mg/dL, High >499 mg/dL, Very high Performed By: #### 2 4331-1, 55330-0 ####[facility] LABCLIA [id number] [place] [address] [place] CNOVon 08-21-2024 CNOV Office Visit (RUBEN ) RONY MONZON ([id number]) 1940 M DEF Date Time Provider Department 08/21/24 12:30 PM JESSY WELDON During your visit today, we recorded the following information about you: Pulse Blood pressure Weight 62/minute 151/85 100.3 kg Jessy Weldon PA-C 08/21/2024 1:18 PM Signed [facility] Name: Rony Monzon Age: [...] daily. 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 [...] Deferring P (more content not included)... Normal [facility] RONY MONZON ([id number]) 1940 M DEF Date Time Provider Department 08/21/24 JESSY WELDON [facility] During your visit today, we recorded the [...] instability [R26.81] 06/25/2010 Coronary artery disease involving ysleta del sur mahmood*11/23/2010 Anemia [D64.9] 08/20/2013 Nontoxic multinodular goiter [...] Status:Closed by JESSY WELDON on 08/21/24 Normal [facility] Absolute lymphocyte countOrd ered By: Ninisascha Brown on 07-29-2024 Lymphocytes Auto (Unsp spec) [#/Vol] 1.38 10*3/uL 0.83-4.51 [facility] Absolute neutrophil countOrd ered By: Ninisascha Brown on 07-29-2024 Neutrophils (Bld) [#/Vol] 6.5 10*3/uL 2.0-7.7 [facility] Anion gap in Serum or Plasma Ordered By: Nini Brown on 07-29-2024 Anion gap [Moles/Vol] 10 mmol/L 5- [facility] Automated lymphocyte count a s percentage of total leukocytesOrdered By: Nini Brown on 07-29-2024 Lymphocytes/100 WBC Auto (Unsp spec) 14.7 % Low - [facility] BUN/creatinine ratioOrdered By: Nini Brown on 07-29-2024 Urea nitrogen/Creatinine [Mass ratio] 12.4 mg/mg - [facility] Basic Metabolic Profile (BMP )on 07-29-2024 BUN/CRE 12.4 RATIO Normal 03-10 [facility] Comment on above: Performed By: #### L 100.0100, L500.2500 #### [facility] [address] [place], [address] Calcium [Mass/Vol] 9.1 mg/dL Normal 7.6-11.0 [facility] Comment on above: Performed By: #### L 100.0100, L500.2500 #### [facility] [address] [place], [address] Chloride [Moles/Vol] 103 mmol/L Normal 98-108 [facility] Comment on above: Performed By: #### L 100.0100, L500.2500 #### [facility] [address] [place], [address] CO2 [Moles/Vol] 24.4 mmol/L Normal 21.0-32.0 [facility] Comment on above: Performed By: #### L 100.0100, L500.2500 #### [facility] [address] [place], [address] Creatinine [Mass/Vol] 0.98 mg/dL Normal 0.70-1.20 [facility] Comment on above: Performed By: #### L 100.0100, L500.2500 #### [facility] [address] [place], [address] ECRCL 70.24 ml/min Normal 50-250 [facility] Comment on above: Performed By: #### L 100.0100, L500.2500 #### [facility] [address] [place], [address] GAP 10 Normal 5-15 [facility] Comment on above: Performed By: #### L 100.0100, L500.2500 #### [facility] [address] [place], [address] GFR/1.73 sq M.predicted among non-blacks MDRD (S/P/Bld) [Vol rate/Area] 77 mL/min/{1.73_m2} Normal >60 [facility] Comment on above: Result Comment: mL/m in/1.73m2 CKD-EPI Creatinine Equation (2020) Performed By: #### L 100.0100, L500.2500 #### [facility] [address] [place], [address] Glucose [Mass/Vol] 100 mg/dL High 70-99 [facility] Comment on above: Performed By: #### L 100.0100, L500.2500 #### [facility] [address] [place], [address] Potassium [Moles/Vol] 4.1 mmol/L Normal 3.3-5.1 [facility] Comment on above: Performed By: #### L 100.0100, L500.2500 #### [facility] [address] [place], [address] Sodium [Moles/Vol] 137 mmol/L Normal 133-145 [facility] Comment on above: Performed By: #### L 100.0100, L500.2500 #### [facility] [address] [place], [address] Urea nitrogen [Mass/Vol] 12 mg/dL Normal 4-19 [facility] Comment on above: Performed By: #### L 100.0100, L500.2500 #### [facility] [address] [place], [address] Basophil percentageOrdered B y: Nini Brown on 07-29-2024 Basophils/100 WBC (Bld) 1.0 % 0-1 [facility] CBC W/Diff, Automatedon 07-20-2024 Absolute Lymph 1.38 X10 3/uL Normal 0.83-4.51 [facility] Comment on above: Performed By: #### L 100.0100, L500.2500 #### [facility] [address] [place], [address] Absolute Neut 6.5 X10 3/uL Normal 2.0-7.7 [facility] Comment on above: Performed By: #### L 100.0100, L500.2500 #### [facility] [address] [place], [address] Basophils/100 WBC (Bld) 1.0 % Normal 0-1 [facility] Comment on above: Performed By: #### L 100.0100, L500.2500 #### [facility] [address] [place], [address] Eosinophils/100 WBC (Bld) 4.7 % Normal 0-5 [facility] Comment on above: Performed By: #### L 100.0100, L500.2500 #### [facility] [address] [place], [address] Erythrocyte distribution width (RBC) [Ratio] 12.9 % Normal 11.6-14.6 [facility] Comment on above: Performed By: #### L 100.0100, L500.2500 #### [facility] [address] [place], [address] Hematocrit (Bld) [Volume fraction] 35.8 % Low 40-54 [facility] Comment on above: Performed By: #### L 100.0100, L500.2500 #### [facility] [address] [place], [address] Hemoglobin (Bld) [Mass/Vol] 12.0 g/dL Low 13.0-16.5 [facility] Comment on above: Performed By: #### L 100.0100, L500.2500 #### [facility] [address] [place], [address] IG% 0.300 Normal 0.0-0.9 [facility] Comment on above: Result Comment: IG% - Immature Granulocytes (promyelocytes, myelocytes and metamyelocytes) > 1% indicates that a LEFT SHIFT is Present. Performed By: #### L 100.0100, L500.2500 #### [facility] [address] [place], [address] Lymphocytes/100 WBC (Bld) 14.7 % Low 19-41 [facility] Comment on above: Performed By: #### L 100.0100, L500.2500 #### [facility] [address] [place], [address] MCH (RBC) [Entitic mass] 31.3 pg Normal 27.0-32.0 [facility] Comment on above: Performed By: #### L 100.0100, L500.2500 #### [facility] [address] [place], [address] MCHC (RBC) [Mass/Vol] 33.5 g/dL Normal 32-36 [facility] Comment on above: Performed By: #### L 100.0100, L500.2500 #### [facility] [address] [place], [address] MCV (RBC) [Entitic vol] 93.2 fL Normal 80-94 [facility] Comment on above: Performed By: #### L 100.0100, L500.2500 #### [facility] [address] [place], [address] Monocytes/100 WBC (Bld) 9.9 % Normal 0-10 [facility] Comment on above: Performed By: #### L 100.0100, L500.2500 #### [facility] [address] [place], [address] Neutrophils/100 WBC (Bld) 69.4 % Normal 47-70 [facility] Comment on above: Performed By: #### L 100.0100, L500.2500 #### [facility] [address] [place], [address] Nucleated RBC (Bld) [#/Vol] 0 10*3/uL Normal 0-5 [facility] Comment on above: Performed By: #### L 100.0100, L500.2500 #### [facility] [address] [place], [address] Platelet mean volume (Bld) [Entitic vol] 9.9 fL Normal 6.2-12.0 [facility] Comment on above: Performed By: #### L 100.0100, L500.2500 #### [facility] [address] [place], [address] Platelets (Bld) [#/Vol] 319 10*3/uL Normal 150-450 [facility] Comment on above: Performed By: #### L 100.0100, L500.2500 #### [facility] [address] [place], [address] RBC (Bld) [#/Vol] 3.84 10*6/uL Low 4.6-6.2 [facility] Comment on above: Performed By: #### L 100.0100, L500.2500 #### [facility] [address] [place], [address] RDW SD 44.1 fl High 35.1-43.9 [facility] Comment on above: Performed By: #### L 100.0100, L500.2500 #### [facility] [address] [place], [address] WBC (Bld) [#/Vol] 9.4 10*3/uL Normal 4.4-11.0 [facility] Comment on above: Performed By: #### L 100.0100, L500.2500 #### [facility] [address] [place], [address] Carbon dioxide, total [Moles /volume] in Central venous bloodOrdered By: Nini Brown on 07-29-2024 CO2 [Moles/Vol] 24.4 mmol/L 21.0-32.0 [facility] Cardiovascular stress test r eportOrdered By: Cuong Andrews on 07-29-2024 Study report [facility] Services [address] [place] [address] MR#: [id number] Acct: [id number] Name: RONY MONZON Rep #: [id number] : 1940 84 From: Cuong duque MD [...] than 70%. This note was generated with [employer] dictation software. It may contain incorrectwords, spelling, and punctuation that were not noted in checking the note beforesigning. 07/29/245 Date _ Cuong Andrews MD CC: Dr. Nawaf Leblanc DO; Dr. David Doll MD; Dr. George Vaughan MD; Dr. Nini Brown MD ~ Date Dictated: 07/29/241102 Date Transcribed: 07/29/241102 Marriage And Family Counselor: MANJINDER Signed [facility] Work Phone: Chloride assayOrdered By: Tiara Brown on 07-29-2024 Chloride [Moles/Vol] 103 mmol/L 98-108 [facility] Electrocardiogram reportOrde red By: Haroon Dewitt on 07-29-2024 EKG study [facility] Cardiovascular Services [address] [place] [address] 12 Lead EKG 07/28/24 1552 MR#: [id number] Acct: [id number] Name: RONY MNOZON Rep #:[id number] : 1940 84 From: Haroon fonseca MD Attending Dr: Dr. Nawaf Leblanc DO Status: ADM ARTURO Ordering Dr: Nini Brown MD Date: 07/28/24 Location: [facility] Sex: M C Admitted: 07/28/24 Test Reason [...] DATA IS UNCONFIRMED Confirmed by Haroon Dewitt ([id number]), editorial specialist NARAYAN ERAZO ([id number]) on 51:05:51 PM Referred By: MALDONADO Confirmed By: Haroon Dewitt 07/29/24 1305 Date _ Haroon Dewitt MD CC: Dr. Nawaf Leblanc DO; Dr. George Vaughan MD; Dr. Nini Brown MD ~ Signed [facility] Other Phone: EKG study [facility] Cardiovascular Services [address] [facility] [place] [address] 12 Lead EKG 07/28/24 1042 MR#: [id number] Acct: [id number] Name: RONY MONZON Rep #:[id number] : 1940 84 From: Haroon fonseca MD Attending Dr: Dr. Nawaf Lelbanc DO Status: ADM ARTURO Ordering Dr: David Doll MD Date: 02/13 Location: [facility] Sex: M C Admitted: 07/28/24 Test Reason : SOB Blood Pressure : */* mmHG Vent. Rate : 57 BPM Atrial Rate : 57 BPM P-R Int : 204 ms QRS Dur : 86 ms QT Int : 424 ms P-R-T Axes : 62 -3 42 degrees QTcB Int : 412 ms Sinus bradycardia Otherwise normal ECG Confirmed by Haroon Dewitt ([id number]), editorial specialist ETHAN SALAS ([id number]) on 07/29/2024 11:03:02 AM Referred By: Confirmed By: Haroon Dewitt 07/29/24 1103 Date _ Haroon Dewitt MD CC: Dr. Nawaf Leblanc DO; Dr. David Doll MD; Dr. George Vaughan MD ~ Signed [facility] Other Phone: Eosinophil percentageOrdered By: Nini Brown on 07-29-2024 Eosinophils/100 WBC (Bld) 4.7 % 0-5 [facility] Erythrocyte distribution wid th ratioOrdered By: Nini Brown on 07-29-2024 Erythrocyte distribution width (RBC) [Ratio] 12.9 % 11.6-14.6 [facility] Erythrocyte distribution wid th standard deviationOrdered By: Nini Brown on 07-29-2024 Erythrocyte distribution width (RBC) [Entitic vol] 44.1 fL High 35.1-43.9 [facility] Erythrocyte distribution width (RBC) [Ratio] 44.1 fl High 35.1-43.9 [facility] Estimation of creatinine junaid aranceOrdered By: Nini Brown on 07-29-2024 Estimated Creatinine Clearance Calc 70.24 ml/min 50-250 [facility] GFR/1.73 sq M.predicted ike g non-blacks MDRD (S/P/Bld) [Vol rate/Area]Ordered By: Nini Brown on 07-29-2024 Estimated GFR (MDRD) Non-Af Amer 77 >60 [facility] Comment on above: mL/min/1.73m2 CKD-EP I Creatinine Equation (2020) Glomerular filtration rate ( GFR) estimation/1.73 sq m using serum, plasma, or whole bOrdered By: Nini Brown on 07-29-2024 GFR/1.73 sq M.predicted among non-blacks MDRD (S/P/Bld) [Vol rate/Area] 77 mL/min/{1.73_m2} >60 [facility] Comment on above: mL/min/1.73m2 CKD-EP I Creatinine Equation (2020) Hematocrit Auto (Bld) [Volum e fraction]Ordered By: Nini Brown on 07-29-2024 Hematocrit (Bld) [Volume fraction] 35.8 % Low 40-54 [facility] Hemoglobin measurementOrdere d By: Nini Brown on 07-29-2024 Hemoglobin (Bld) [Mass/Vol] 12.0 g/dL Low 13.0-16.5 [facility] Immature granulocytes/100 WB C Auto (Bld)Ordered By: Nini Brown on 07-29-2024 Immature granulocytes/100 WBC (Bld) 0.300 % 0.0-0.9 [facility] Comment on above: IG% - Immature Granu locytes (promyelocytes, myelocytes and metamyelocytes) > 1% indicates that a LEFT SHIFT is Present. Lymphocytes Auto (Unsp spec) [#/Vol]Ordered By: Nini Brown on 07-29-2024 Lymphocytes (Bld) [#/Vol] 1.38 10*3/uL 0.83-4.51 [facility] Lymphocytes/100 WBC Auto (Un sp spec)Ordered By: Nini Brown on 07-29-2024 Lymphocytes/100 WBC (Bld) 14.7 % Low 19-41 [facility] MCV (mean corpuscular volume ) determinationOrdered By: Nini Brown on 07-29-2024 MCV (RBC) [Entitic vol] 93.2 fL 80-94 [facility] Mean corpuscular hemoglobin (MCH) determinationOrdered By: Nini Brown on 07-29-2024 MCH (RBC) [Entitic mass] 31.3 pg 27.0-32.0 [facility] Mean corpuscular hemoglobin concentration (MCHC) determinationOrdered By: Nini Brown on 07-29-2024 MCHC (RBC) [Mass/Vol] 33.5 g/dL 32-36 [facility] Mean platelet volume determi nationOrdered By: Nini Brown on 07-29-2024 Platelet mean volume (Bld) [Entitic vol] 9.9 fL 6.2-12.0 [facility] Monocyte percentageOrdered B y: Nini Brown on 07-29-2024 Monocytes/100 WBC (Bld) 9.9 % 0-10 [facility] Neutrophil percentageOrdered By: Nini Brown on 07-29-2024 Neutrophils/100 WBC (Bld) 69.4 % 47-70 [facility] Nucleated red blood cell per centageOrdered By: Nini Brown on 07-29-2024 Nucleated RBC/100 WBC (Bld) [Ratio] 0 % 0-5 [facility] Platelet countOrdered By: Tiara Brown on 07-29-2024 Platelets (Bld) [#/Vol] 319 10*3/uL 150-450 [facility] Potassium (Unsp spec) [Mass/ Vol]Ordered By: Nini Brown on 07-29-2024 Potassium [Moles/Vol] 4.1 mmol/L 3.3-5.1 [facility] Potassium measurement (mass/ volume)Ordered By: Nini Brown on 07-29-2024 Potassium (Unsp spec) [Mass/Vol] 4.1 mmol/L 3.3-5.1 [facility] RBC Auto (Bld) [#/Vol]Ordere d By: Nini Brown on 07-29-2024 RBC (Bld) [#/Vol] 3.84 10*6/uL Low 4.6-6.2 [facility] Serum creatinine measurement (mass/volume)Ordered By: Nini Brown on 07-29-2024 Creatinine [Mass/Vol] 0.98 mg/dL 0.70-1.20 [facility] Serum glucose measurement (m ass/volume)Ordered By: Nini Brown on 07-29-2024 Glucose [Mass/Vol] 100 mg/dL High 70-99 [facility] Serum or plasma calcium obdulia urement (mass/volume)Ordered By: Nini Brown on 07-29-2024 Calcium [Mass/Vol] 9.1 mg/dL 7.6-11.0 [facility] Serum or plasma urea nitroge n measurement (mass/volume)Ordered By: Ninisascha Brown on 07-29-2024 Urea nitrogen [Mass/Vol] 12 mg/dL 4-19 [facility] Sodium levelOrdered By: Ninisascha Brown on 07-29-2024 Sodium [Moles/Vol] 137 mmol/L 133-145 [facility] Stress Reporton 07-29-2024 Stress Report [facility] Cardiovascular Services [address] [place] [address] MR#: [id number] Acct: [id number] Name: RONY MONZON Rep #: [id number] : 1940 84 From: Cuong Andrews MD Primary Care: Dr. George Vaughan MD Status: ADM ARTURO Referring Dr: Sex: Julio Collier Stress Test Report Date: 07/29/2024 Procedure: [...] than 70%. This note was generated with [employer] software. It may contain incorrect words, spelling, and punctuation that were not noted in checking the note before signing. 07/29/241104 Date Cuong Andrews MD CC: Dr. Nawaf Leblanc DO; Dr. David Doll MD; Dr. George Vaughan MD; Dr. Nini Brown MD Date Dictated: 07/29/241102 Date Transcribed: 07/29/241102 Marriage And Family Counselor: NN Signed Normal [facility] White blood cell (WBC) count Ordered By: Nini Brown on 07-29-2024 WBC (Bld) [#/Vol] 9.4 10*3/uL 4.4-11.0 [facility] 12 Lead EKGon 07-28-2024 12 Lead EKG [facility] Cardiovascular Services [address] [place] [address] 12 Lead EKG 07/28/24 1552 MR#: [id number] Acct: [id number] Name: RONY MONZON Rep #: [id number] : 1940 84 From: Haroon Dewitt MD Attending Dr: Dr. Nawaf Leblanc DO Status: ADM ARTURO Ordering Dr: Nini Brown MD Date: 07/28/24 Location: [facility] Sex: M C Admitted: 07/28/24 Test Reason [...] DATA IS UNCONFIRMED Confirmed by Haroon Dewitt ([id number]), editorial specialist NARAYAN ERAZO ([id number]) on 07/29/2024 1:05:51 PM Referred By: MALDONADO Confirmed By: Haroon Dewitt 07/29/24 1305 Date Haroon Dewitt MD CC: Dr. Nawaf Leblanc DO; Dr. George Vaughan MD; Dr. Nini Brown MD Signed Normal [facility] 12 Lead EKG [facility] Cardiovascular Services [address] [place] [address] 12 Lead EKG 07/28/24 1042 MR#: [id number] Acct: [id number] Name: RONY MONZON Rep #: [id number] : 1940 84 From: Haroon Dewitt MD Attending Dr: Dr. Nawaf Leblanc DO Status: ADM ARTURO Ordering Dr: David Doll MD Date: 07/28/24 Location: [facility] Sex: M C Admitted: 07/28/24 Test Reason : SOB Blood Pressure : */* mmHG Vent. Rate : 57 BPM Atrial Rate : 57 BPM P-R Int : 204 ms QRS Dur : 86 ms QT Int : 424 ms P-R-T Axes : 62 -3 42 degrees QTcB Int : 412 ms Sinus bradycardia Otherwise normal ECG Confirmed by Haroon Dewitt ([id number]), editorial specialist ETHAN SALAS ([id number]) on 07/29/2024 11:03:02 AM Referred By: Confirmed By: Haroon Dewitt 07/29/24 1103 Date Haroon Dewitt MD CC: Dr. Nawaf Leblanc DO; Dr. David Doll MD; Dr. George Vaughan MD Signed Normal [facility] Absolute neutrophil countOrd ered By: David Doll on 07-28-2024 Neutrophils (Bld) [#/Vol] 7.4 10*3/uL 2.0-7.7 [facility] Anion gap in Serum or Plasma Ordered By: David Doll on 07-28-2024 Anion gap [Moles/Vol] 11 mmol/L 10-03 [facility] BUN/creatinine ratioOrdered By: David Doll on 07-28-2024 Urea nitrogen/Creatinine [Mass ratio] 11.3 mg/mg 03-10 [facility] Basic Metabolic Profile (BMP )on 07-28-2024 BUN/CRE 11.3 RATIO Normal 03-10 [facility] Comment on above: Performed By: #### L 501.4021, L100.0100, L500.2500 ####[facility] [address] [place], [address] Calcium [Mass/Vol] 9.3 mg/dL Normal 7.6-11.0 [facility] Comment on above: Performed By: #### L 501.4021, L100.0100, L500.2500 ####[facility] [address], [address] Chloride [Moles/Vol] 100 mmol/L Normal 98-108 [facility] Comment on above: Performed By: #### L 501.4021, L100.0100, L500.2500 ####[facility] [address] [place], [address] CO2 [Moles/Vol] 24.3 mmol/L Normal 21.0-32.0 [facility] Comment on above: Performed By: #### L 501.4021, L100.0100, L500.2500 ####[facility] [address] [place], [address] Creatinine [Mass/Vol] 1.12 mg/dL Normal 0.70-1.20 [facility] Comment on above: Performed By: #### L 501.4021, L100.0100, L500.2500 ####[facility] [address] [place], [address] ECRCL 61.84 ml/min Normal 50-250 [facility] Comment on above: Performed By: #### L 501.4021, L100.0100, L500.2500 ####[facility] [address] [place], [address] GAP 11 Normal 5-15 [facility] Comment on above: Performed By: #### L 501.4021, L100.0100, L500.2500 ####[facility] [address] [place], [address] GFR/1.73 sq M.predicted among non-blacks MDRD (S/P/Bld) [Vol rate/Area] 65 mL/min/{1.73_m2} Normal >60 [facility] Comment on above: Result Comment: mL/m in/1.73m2 CKD-EPI Creatinine Equation (2020) Performed By: #### L 501.4021, L100.0100, L500.2500 ####[facility] [address] [place], [address] Glucose [Mass/Vol] 181 mg/dL High 70-99 [facility] Comment on above: Performed By: #### L 501.4021, L100.0100, L500.2500 ####[facility] [address] [place], [address] Potassium [Moles/Vol] 3.9 mmol/L Normal 3.3-5.1 [facility] Comment on above: Performed By: #### L 501.4021, L100.0100, L500.2500 ####[facility] [address] [place], [address] Sodium [Moles/Vol] 136 mmol/L Normal 133-145 [facility] Comment on above: Performed By: #### L 501.4021, L100.0100, L500.2500 ####[facility] [address] [place], [address] Urea nitrogen [Mass/Vol] 13 mg/dL Normal 4-19 [facility] Comment on above: Performed By: #### L 501.4021, L100.0100, L500.2500 ####[facility] [address] [place], [address] Basophil percentageOrdered B y: David Doll on 07-28-2024 Basophils/100 WBC (Bld) 0.9 % 0-1 [facility] CBC W/Diff, Automatedon Absolute Lymph 1.19 X10 3/uL Normal 0.83-4.51 [facility] Comment on above: Performed By: #### L 501.4021, L100.0100, L500.2500 #### [facility] [address] [place], [address] Absolute Neut 7.4 X10 3/uL Normal 2.0-7.7 [facility] Comment on above: Performed By: #### L 501.4021, L100.0100, L500.2500 #### [facility] [address] [place], [address] Basophils/100 WBC (Bld) 0.9 % Normal 0-1 [facility] Comment on above: Performed By: #### L 501.4021, L100.0100, L500.2500 #### [facility] [address] [place], [address] Eosinophils/100 WBC (Bld) 3.9 % Normal 0-5 [facility] Comment on above: Performed By: #### L 501.4021, L100.0100, L500.2500 #### [facility] [address] [place], [address] Erythrocyte distribution width (RBC) [Ratio] 13.1 % Normal 11.6-14.6 [facility] Comment on above: Performed By: #### L 501.4021, L100.0100, L500.2500 #### [facility] [address] [place], [address] Hematocrit (Bld) [Volume fraction] 37.5 % Low 40-54 [facility] Comment on above: Performed By: #### L 501.4021, L100.0100, L500.2500 #### [facility] [address] [place], [address] Hemoglobin (Bld) [Mass/Vol] 12.6 g/dL Low 13.0-16.5 [facility] Comment on above: Performed By: #### L 501.4021, L100.0100, L500.2500 #### [facility] [address] [place], [address] IG% 0.200 Normal 0.0-0.9 [facility] Comment on above: Result Comment: IG% - Immature Granulocytes (promyelocytes, myelocytes and metamyelocytes) > 1% indicates that a LEFT SHIFT is Present. Performed By: #### L 501.4021, L100.0100, L500.2500 #### [facility] [address] [place], [address] Lymphocytes/100 WBC (Bld) 12.4 % Low 19-41 [facility] Comment on above: Performed By: #### L 501.4021, L100.0100, L500.2500 #### [facility] [address] [place], [address] MCH (RBC) [Entitic mass] 31.7 pg Normal 27.0-32.0 [facility] Comment on above: Performed By: #### L 501.4021, L100.0100, L500.2500 #### [facility] [address] [place], [address] MCHC (RBC) [Mass/Vol] 33.6 g/dL Normal 32-36 [facility] Comment on above: Performed By: #### L 501.4021, L100.0100, L500.2500 #### [facility] [address] [place], [address] MCV (RBC) [Entitic vol] 94.2 fL High 80-94 [facility] Comment on above: Performed By: #### L 501.4021, L100.0100, L500.2500 #### [facility] [address] [place], [address] Monocytes/100 WBC (Bld) 6.0 % Normal 0-10 [facility] Comment on above: Performed By: #### L 501.4021, L100.0100, L500.2500 #### [facility] [address] [place], [address] Neutrophils/100 WBC (Bld) 76.6 % High 47-70 [facility] Comment on above: Performed By: #### L 501.4021, L100.0100, L500.2500 #### [facility] [address] [place], [address] Nucleated RBC (Bld) [#/Vol] 0 10*3/uL Normal 0-5 [facility] Comment on above: Performed By: #### L 501.4021, L100.0100, L500.2500 #### [facility] [address] [place], [address] Platelet mean volume (Bld) [Entitic vol] 9.6 fL Normal 6.2-12.0 [facility] Comment on above: Performed By: #### L 501.4021, L100.0100, L500.2500 #### [facility] [address] [place], [address] Platelets (Bld) [#/Vol] 353 10*3/uL Normal 150-450 [facility] Comment on above: Performed By: #### L 501.4021, L100.0100, L500.2500 #### [facility] [address] [place], [address] RBC (Bld) [#/Vol] 3.98 10*6/uL Low 4.6-6.2 [facility] Comment on above: Performed By: #### L 501.4021, L100.0100, L500.2500 #### [facility] [address] [place], [address] RDW SD 45.2 fl High 35.1-43.9 [facility] Comment on above: Performed By: #### L 501.4021, L100.0100, L500.2500 #### [facility] [address] [place], [address] WBC (Bld) [#/Vol] 9.6 10*3/uL Normal 4.4-11.0 [facility] Comment on above: Performed By: #### L 501.4021, L100.0100, L500.2500 #### [facility] [address] [place], [address] Carbon dioxide, total [Moles /volume] in Central venous bloodOrdered By: David Doll on 07-28-2024 CO2 [Moles/Vol] 24.3 mmol/L 21.0-32.0 [facility] Chest 1 View (Portable)on Chest 1 View (Portable) [facility] Imaging Services [address] [place] [address] Chest 1 View (Portable) MR#: [id number] Acct: [id number] Name: RONY MONZON Rep #: [id number] : 1940 M 84 From: Esperanza Barrios nd, MD PCP: Dr. George Vaughan MD Status: REG ER Study: Chest 1 View (Portable) Date of Exam: 07/28/24 Exam# [id number] Ordering Dr: David Doll MD PROCEDURE: CHEST [...] View (Portable) IMPRESSION: NEGATIVE CHEST. Reading Location: [facility] CC: Dr. David Doll MD; Dr. George Vaughan MD Marriage And Family Counselor: Signed Normal [facility] Chloride assayOrdered By: Pal Doll on 07-28-2024 Chloride [Moles/Vol] 100 mmol/L 98-108 [facility] Emergency Department Summary on 07-28-2024 Emergency Department Summary [facility] Medical Records Department [address] [place] [address] Emergency Department Summary 07/28/24 MR#: [id number] Acct: [id number] Name: RONY MONZON Rep #: [id number] : 1940 84 From: David Doll MD [...] TAD Risk Factors: Negative for Marfan's Syndrome [facility] Medical History COVID-19 ( 01/18/22) Sepsis due [...] breath Dyspnea Precordial chest pain 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 [facility] use of drug 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 Normal [facility] Eosinophil percentageOrdered By: David Doll on 07-28-2024 Eosinophils/100 WBC (Bld) 3.9 % 0-5 [facility] Erythrocyte distribution wid th ratioOrdered By: David Doll on 07-28-2024 Erythrocyte distribution width (RBC) [Ratio] 13.1 % 11.6-14.6 [facility] Erythrocyte distribution wid th standard deviationOrdered By: David Doll on 07-28-2024 Erythrocyte distribution width (RBC) [Entitic vol] 45.2 fL High 35.1-43.9 [facility] Estimation of creatinine junaid aranceOrdered By: David Doll on 07-28-2024 Estimated Creatinine Clearance Calc 61.84 ml/min 50-250 [facility] GFR/1.73 sq M.predicted ike g non-blacks MDRD (S/P/Bld) [Vol rate/Area]Ordered By: David Doll on 07-28-2024 Estimated GFR (MDRD) Non-Af Amer 65 >60 [facility] Comment on above: mL/min/1.73m2 CKD-EP I Creatinine Equation (2020) H AND P Exam - [facility] 07-28-2024 H&P Exam - Hospitalist [facility] Medical Records Department [address] [place] [address] H P Exam - Hospitalist 07/28/24 1627 MR#: [id number] Acct: [id number] Name: RONY MONZON Rep #: [id number] : 1940 84 From: Nini Brown MD PCP: Dr. George Vaughan MD Status:ADM ARTURO Location: [place] [address] HPI - General General Date of Admission: [...] for chest pain to rule out ACS. 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 Normal [facility] Hematocrit Auto (Bld) [Volum e fraction]Ordered By: David Doll on 07-28-2024 Hematocrit (Bld) [Volume fraction] 37.5 % Low 40-54 [facility] Hemoglobin measurementOrdere d By: David Doll on 07-28-2024 Hemoglobin (Bld) [Mass/Vol] 12.6 g/dL Low 13.0-16.5 [facility] Immature granulocytes/100 WB C Auto (Bld)Ordered By: David Doll on 07-28-2024 Immature granulocytes/100 WBC (Bld) 0.200 % 0.0-0.9 [facility] Comment on above: IG% - Immature Granu locytes (promyelocytes, myelocytes and metamyelocytes) > 1% indicates that a LEFT SHIFT is Present. Influenza virus A and B and SARS-CoV-2 (COVID-19) and Respiratory syncytial virus RNAOrdered By: David Doll on 07-28-2024 SARS-CoV-2 (COVID-19) RNA MARINA+probe Ql (Unsp spec) [facility] L499.0042on 07-28-2024 Trop T High Sen 24 ng/L High <=22 [facility] Comment on above: Performed By: #### L 499.0042 ####[facility] [address] [place], [address] L499.0043on 07-28-2024 Trop T High Sen 23 ng/L High <=22 [facility] Comment on above: Performed By: #### L 499.0043 ####[facility] [address] [place], [address] L501.4021on 07-28-2024 Trop T High Sen 23 ng/L High <=22 [facility] Comment on above: Performed By: #### L 501.4021, L100.0100, L500.2500 ####[facility] [address] [place], [address] Lymphocytes Auto (Unsp spec) [#/Vol]Ordered By: David Doll on 07-28-2024 Lymphocytes (Bld) [#/Vol] 1.19 10*3/uL 0.83-4.51 [facility] Lymphocytes/100 WBC Auto (Un sp spec)Ordered By: David Doll on 07-28-2024 Lymphocytes/100 WBC (Bld) 12.4 % Low 19-41 [facility] M100.678on 07-28-2024 M100.678 SARS-CoV-2 (COVID 19 ) Negative INFLUENZA A Negative INFLUENZA B Negative RSV PCR Negative Normal [facility] Comment on above: Performed By: #### M 100.678 ####[facility] [address] [place], [address] MCV (mean corpuscular volume ) determinationOrdered By: David Doll on 07-28-2024 MCV (RBC) [Entitic vol] 94.2 fL High 80-94 [facility] Mean corpuscular hemoglobin (MCH) determinationOrdered By: David Doll on 07-28-2024 MCH (RBC) [Entitic mass] 31.7 pg 27.0-32.0 [facility] Mean corpuscular hemoglobin concentration (MCHC) determinationOrdered By: David Doll on 07-28-2024 MCHC (RBC) [Mass/Vol] 33.6 g/dL 32-36 [facility] Mean platelet volume determi nationOrdered By: David Doll on 07-28-2024 Platelet mean volume (Bld) [Entitic vol] 9.6 fL 6.2-12.0 [facility] Monocyte percentageOrdered B y: David Doll on 07-28-2024 Monocytes/100 WBC (Bld) 6.0 % 0-10 [facility] Neutrophil percentageOrdered By: David Doll on 07-28-2024 Neutrophils/100 WBC (Bld) 76.6 % High 47-70 [facility] No Panel InformationOrdered By: David Doll on 07-28-2024 Troponin T High Sensitivity 23 ng/L High <22 [facility] Nucleated red blood cell per centageOrdered By: David Doll on 07-28-2024 Nucleated RBC/100 WBC (Bld) [Ratio] 0 % 0-5 [facility] Platelet countOrdered By: Pal Doll on 07-28-2024 Platelets (Bld) [#/Vol] 353 10*3/uL 150-450 [facility] Potassium (Unsp spec) [Mass/ Vol]Ordered By: David Doll on 07-28-2024 Potassium [Moles/Vol] 3.9 mmol/L 3.3-5.1 [facility] RBC Auto (Bld) [#/Vol]Ordere d By: David Doll on 07-28-2024 RBC (Bld) [#/Vol] 3.98 10*6/uL Low 4.6-6.2 [facility] Serum creatinine measurement (mass/volume)Ordered By: David Doll on 07-28-2024 Creatinine [Mass/Vol] 1.12 mg/dL 0.70-1.20 [facility] Serum glucose measurement (m ass/volume)Ordered By: David Doll on 07-28-2024 Glucose [Mass/Vol] 181 mg/dL High 70-99 [facility] Serum or plasma calcium obdulia urement (mass/volume)Ordered By: David Doll on 07-28-2024 Calcium [Mass/Vol] 9.3 mg/dL 7.6-11.0 [facility] Serum or plasma urea nitroge n measurement (mass/volume)Ordered By: David Doll on 07-28-2024 Urea nitrogen [Mass/Vol] 13 mg/dL 4-19 [facility] Sodium levelOrdered By: David Doll on 07-28-2024 Sodium [Moles/Vol] 136 mmol/L 133-145 [facility] Troponin T.cardiac High sens itivity method [Mass/Vol]Ordered By: David Doll on 07-28-2024 Troponin T High Sensitivity 4 Hour 23 ng/L High <22 [facility] Troponin T High Sensitivity 2 Hour 24 ng/L High <22 [facility] Troponin T.cardiac [Mass/vol ume] in Serum or Plasma by High sensitivity methodOrdered By: David Doll on 07-28-2024 Troponin T.cardiac High sensitivity method [Mass/Vol] 23 ng/L High <22 [facility] Troponin T.cardiac High sensitivity method [Mass/Vol] 24 ng/L High <22 [facility] White blood cell (WBC) count Ordered By: David Doll on 07-28-2024 WBC (Bld) [#/Vol] 9.6 10*3/uL 4.4-11.0 [facility] CNOVon 07-23-2024 CNOV Office Visit (FAMPWS ) RONY MONZON ([id number]) 1940 M DEF Date Time Provider Department [...] 5 mg 1 pill BID. Follows with [facility] at least annually. Needs to [...] Suh CARDIAC CATH N/A 02/02/2015 Completed at [facility] COLONOSCOPY FLX DX W/COLLJ SPEC WHEN PFRMD 07/11/12 Colonoscopy COLONOSCOPY FLX DX W/COLLJ SPEC WHEN PFRMD 02/24/2017 Colonoscopy COLONOSCOPY W/BIOPSY SINGLE/MULTIPLE 03/29/06 ESOPHAGOGASTRODUODENOSC OPY TRANSORAL DIAGNOSTIC 02/24/2017 EGD [place] W/O FACETEC FORAMOT/DSC 05/[address] Cole PAST SURGICAL HISTORY OF Right 2007 knee surgery RPR [place] VAGINALIS HYDROCELE BOTTLE TYPE STENT PLACEMENT 08/2010 [facility] VASECTOMY UNI/BI SPX W/POSTOP SEMEN EXAMS Family [...] EXTRA STRENG (more content not included)... Normal [facility] CNOVon 05-16-2024 CNOV Office Visit (UCWSTR ) RONY MONZON ([id number]) 1940 M DEF Date Time Provider Department 05/16/24 3:45 PM AMA [facility] During your visit today, we recorded the following information about you: Temperature Pulse Respiration Blood pressure 97.4 degrees 60/minute 18/minute 148/72 Weight 99.6 kg Ama Brian APRN.FRONT DESK ADMIN 05/16/2024 3:43 PM Signed Subjective HPI HPI [...] Suh CARDIAC CATH N/A 02/02/2015 Completed at [facility] COLONOSCOPY FLX DX W/COLLJ SPEC WHEN PFRMD 07/11/12 Colonoscopy COLONOSCOPY FLX DX W/COLLJ SPEC WHEN PFRMD 02/24/2017 Colonoscopy COLONOSCOPY W/BIOPSY SINGLE/MULTIPLE 03/29/06 ESOPHAGOGASTRODUODENOSC OPY TRANSORAL DIAGNOSTIC 02/24/2017 EGD [place] W/O FACETEC FORAMOT/DSC 05/[address] Cole PAST SURGICAL HISTORY OF Right 2007 knee surgery RPR [place] VAGINALIS HYDROCELE BOTTLE TYPE STENT PLACEMENT 08/2010 [facility] VASECTOMY UNI/BI SPX W/POSTOP SEMEN EXAMS ALLERGIES [...] OFLOXACIN 0.3 % EAR DROPS Ama Brian APRN.FRONT DESK ADMIN Allergies As of Date: 05/16/2024 Noted Allergy Reaction LYRICA (PREGABALIN) 08/01/2016 7 - Swelling Comments: B/L hand swelling NORFLEX (ORPHENADRINE CITRATE) 04/12/2016 8 - GI Upset VICODIN (HYDROCODO (more content not included)... Normal [facility] CNCOon 05-02-2024 CNCO Letter Text Normal [facility] CNPNon 05-01-2024 CNPN Telephone (RUBEN) RONY MONZON ([id number]) 1940 M DEF Date Time Provider Department 05/01/24 JESSY WELDON [...] Dr. Arguello for approval of medication. José Luisivonne Castro LPN May 02, 2024 8:57 AM Mallorie Vaughn OCCA 05/06/2024 1:33 PM Signed Received communication from Dr. Arguello's office to change Amlodipine to 5 mg PO and have patient see him for follow up prior to starting Florinef. Mallorie VINCENT Vaughn Samaria, LPN 05/09/2024 1:24 PM Signed Called patient no answer, Left voicemail. José Luis Castro LPN May 09, 2024 1:24 PM José Luis Castro LPN 05/16/2024 4:04 PM Signed Called patient no answer, Left voicemail. José Luis Castro LPN May 16, 2024 4:04 PM Allergies As [...] instability [R26.81] 06/25/2010 Coronary artery disease involving [place]*11/23/2010 Anemia [D64.9] 08/20/2013 Nontoxic multinodular goiter [...] JESSY WELDON (more content not included)... Normal [facility] CNOVon 04-30-2024 CNOV Office Visit (RUBEN ) RONY MONZON ([id number]) 1940 M DEF Date Time Provider Department [...] given cardiac history, would like opinion of area development consultant Dr. Arguello. Question if benefit in lowering [...] to follow up with his surgeons at [facility]. 8. History of stroke - ICD9: V12.54, [...] tremor, HTN, HLD, CAD, REHAN, DDD, depression, IWLY, vasovagal syncope . Last saw Dr. Strange [...] per HP (more content not included)... Normal [facility] XR Foot - left AP and Latera l and obliqueon 08-11-2023 IMPRESSION: Nondisplaced fracture of the base of the left fifth metatarsal Marriage And Family Counselor: [facility] Transcribe Date/Time: Aug 11 2023 1:21P Dictated by : KRISTAN RUIZ MD This examination was interpreted and the report reviewed and electronically signed by: KRISTAN RUIZ MD on Aug 11 2023 1:23PM [facility] DIVISION OF RADIOLOGY * * *Final Report* [...] posterior calcaneal spurs. DIVISION OF RADIOLOGY Provider, [facility] * * *Final Report* * [...] the base of the left fifth metatarsal Marriage And Family Counselor: [facility] Transcribe Date/Time: Aug 11 2023 1:21P Dictated by : KRISTAN RUIZ MD This examination was interpreted and the report reviewed and electronically signed by: KRISTAN RUIZ MD on Aug 11 2023 1:23PM EST [facility] Radiology Study observation (narrative) [place] miranda [facility] XR Foot - left AP and Latera l and obliqueOrdered By: Ccf Provider on 08-11-2023 [facility] NM Biliary ducts and Gallbla dder Views for patency of biliary structures and ejection fraction W sincalide and W radionuclide [place] 05-26-2023 [facility] Absolute lymphocyte countOrd ered By: Nini Brown on 04-18-2023 Lymphocytes Auto (Unsp spec) [#/Vol] 1.11 10*3/uL 0.83-4.51 [facility] Basophil percentageOrdered B y: Nini Brown on 04-18-2023 Basophils/100 WBC (Bld) 0.9 % 0-1 [facility] Chloride [Moles/Vol] 104 mmol/L 98-107 [facility] Eosinophils/100 WBC (Bld) 3.5 % 0-5 [facility] Glucose [Mass/Vol] 122 mg/dL 74-106 [facility] Comment on above: Fasting Glucose resu lt from 100 to 125 mg/dL suggests IMPAIRED HOMEOSTASIS per A.D.A. criteria. Neutrophils (Bld) [#/Vol] 5.5 10*3/uL 2.0-7.7 [facility] Neutrophils/100 WBC (Bld) 71.2 % 47-70 [facility] Potassium [Moles/Vol] 3.8 mmol/L 3.5-5.1 [facility] Sodium [Moles/Vol] 135 mmol/L 136-145 [facility] WBC (Bld) [#/Vol] 7.8 10*3/uL 4.4-11.0 [facility] Blood erythrocytes count (nu mber/volume)Ordered By: Nini Brown on 04-18-2023 RBC (Bld) [#/Vol] 3.62 10*6/uL 4.6-6.2 [facility] Blood hemoglobin measurement (mass/volume)Ordered By: Nini Brown on 04-18-2023 Hemoglobin (Bld) [Mass/Vol] 11.0 g/dL 13.0-16.5 [facility] Blood lymphocytes/100 leukoc ytesOrdered By: Nini Brown on 04-18-2023 Lymphocytes/100 WBC (Bld) 14.3 % 19-41 [facility] Blood monocytes/100 leukocyt esOrdered By: Nini Brown on 04-18-2023 Monocytes/100 WBC (Bld) 9.8 % 0-10 [facility] Blood platelet mean volumeOr dered By: Nini Brown on 04-18-2023 Platelet mean volume (Bld) [Entitic vol] 10.0 fL 6.2-12.0 [facility] Determination of erythrocyte mean corpuscular volume (MCV)Ordered By: Nini Brown on 04-18-2023 MCV (RBC) [Entitic vol] 94.8 fL 80-94 [facility] Hematocrit Auto (Bld) [Volum e fraction]Ordered By: Nini Brown on 04-18-2023 Hematocrit (Bld) [Volume fraction] 34.3 % 40-54 [facility] Laboratory - Chemistry and C hemistry - challengeOrdered By: Nini Brown on 04-18-2023 CO2 [Moles/Vol] 29.0 mmol/L 21.0-32.0 [facility] Urea nitrogen/Creatinine [Mass ratio] 15.1 mg/mg 10-20 [facility] - Hematology and Cell countsOrdered By: Nini Brown on 04-18-2023 Erythrocyte distribution width (RBC) [Entitic vol] 44.1 fL 35.1-43.9 [facility] Erythrocyte distribution width (RBC) [Ratio] 12.5 % 11.6-14.6 [facility] Immature granulocytes/100 WBC (Bld) 0.300 % 0.0-0.9 [facility] Comment on above: IG% - Immature Granu locytes (promyelocytes, myelocytes and metamyelocytes) > 1% indicates that a LEFT SHIFT is Present. MCH (RBC) [Entitic mass] 30.4 pg 27.0-32.0 [facility] Nucleated RBC/100 WBC (Bld) [Ratio] 0 % 0-5 [facility] MCHC Auto (RBC) [Mass/Vol]Or dered By: Nini Brown on 11-28-2023 MCHC (RBC) [Mass/Vol] 32.1 g/dL 32-36 [facility] No Panel InformationOrdered By: Nini Brown on 04-18-2023 Estimated Creatinine Clearance Calc 66.13 ml/min [facility] Estimated GFR (MDRD) Amer 93 mL/min >60 [facility] Comment on above: GFR Calc Estimated GFR (MDRD) Non-Af Amer 77 mL/min >60 [facility] Comment on above: Non- GFR Calc Platelets bldOrdered By: La Brown on 04-18-2023 Platelets (Bld) [#/Vol] 346 10*3/uL 150-450 [facility] Serum or plasma calcium obdulai urement (mass/volume)Ordered By: Nini Brown on 04-18-2023 Calcium [Mass/Vol] 8.9 mg/dL 8.5-10.1 [facility] Serum or plasma creatinine m easurement (mass/volume)Ordered By: Nini Brown on 04-18-2023 Creatinine [Mass/Vol] 0.99 mg/dL 0.70-1.30 [facility] Comment on above: The validity of the calculated GFR & GFRAA in patients over 70 years has not been determined. Clinical correlation is essential. Serum or plasma urea nitroge n measurement (mass/volume)Ordered By: Nini Brown on 04-18-2023 Urea nitrogen [Mass/Vol] 15 mg/dL 7-18 [facility] Thin prep Papanicolaou smear with manual screeningOrdered By: Nini Brown on 04-18-2023 Thin prep Papanicolaou smear with manual screening 2 5-15 [facility] Basophil percentageOrdered B y: Juan Pike on 04-17-2023 Basophil percentage 3.8 mg/dL 2.5-4.9 [facility] Bilirubin [Mass/Vol] 0.30 mg/dL 0.20-1.00 [facility] Comment on above: For patients on eltr ombopag therapy, use of Dimension [place] TBIL is not recommended. Protein [Mass/Vol] 6.5 g/dL 6.4-8.2 [facility] Direct bilirubinOrdered By: Juan Pike on 11-27-2023 Bilirubin.direct [Mass/Vol] 0.09 mg/dL 0.00-0.30 [facility] INR in Blood by Coagulation assayOrdered By: Juan Pike on 04-17-2023 INR Coag (Bld) [Relative time] 1.1 {INR} [facility] - Chemistry and C hemistry - challengeOrdered By: Juan Pike on 04-17-2023 ALP [Catalytic activity/Vol] 102 U/L 45-117 [facility] ALT [Catalytic activity/Vol] 20 U/L 16-61 [facility] Globulin (S) [Mass/Vol] 3.6 g/dL 2.2-4.2 [facility] Magnesium [Mass/Vol] 1.9 mg/dL 1.6-2.6 [facility] Laboratory - CoagulationOrde red By: Juan Pike on 04-17-2023 PT Coag (PPP) [Time] 14.1 s 11.7-14.9 [facility] Serum or plasma albumin obdulia urement (mass/volume)Ordered By: Juan Pike on 04-17-2023 Albumin [Mass/Vol] 2.9 g/dL 3.2-5.0 [facility] Serum or plasma albumin/glob ulin mass ratioOrdered By: Juan Pike on 04-17-2023 Albumin/Globulin [Mass ratio] 0.8 {ratio} 0.9-2.4 [facility] Thin prep Papanicolaou smear with manual screeningOrdered By: Juan Pike on 04-17-2023 Thin prep Papanicolaou smear with manual screening 17 U/L 15-37 [facility] Absolute lymphocyte countOrd ered By: Zeina Larios on 04-16-2023 Lymphocytes Auto (Unsp spec) [#/Vol] 1.01 10*3/uL 0.83-4.51 [facility] Basophil percentageOrdered B y: Zeina Larios on 04-16-2023 Basophils/100 WBC (Bld) 1.1 % 0-1 [facility] Chloride [Moles/Vol] 101 mmol/L 98-107 [facility] Eosinophils/100 WBC (Bld) 3.1 % 0-5 [facility] Glucose [Mass/Vol] 223 mg/dL 74-106 [facility] Comment on above: Glucose result great er than or equal to 200 mg/dLsuggests DIABETES MELLITUS per A.D.A. criteria. Neutrophils (Bld) [#/Vol] 5.7 10*3/uL 2.0-7.7 [facility] Neutrophils/100 WBC (Bld) 76.4 % 47-70 [facility] Potassium [Moles/Vol] 4.9 mmol/L 3.5-5.1 [facility] Sodium [Moles/Vol] 135 mmol/L 136-145 [facility] WBC (Bld) [#/Vol] 7.4 10*3/uL 4.4-11.0 [facility] Blood erythrocytes count (nu mber/volume)Ordered By: Zeina Larios on 04-16-2023 RBC (Bld) [#/Vol] 3.77 10*6/uL 4.6-6.2 [facility] Blood hemoglobin measurement (mass/volume)Ordered By: Zeina Larios on 04-16-2023 Hemoglobin (Bld) [Mass/Vol] 12.1 g/dL 13.0-16.5 [facility] Blood lymphocytes/100 leukoc ytesOrdered By: Zeina Larios on 04-16-2023 Lymphocytes/100 WBC (Bld) 13.6 % 19-41 [facility] Blood monocytes/100 leukocyt esOrdered By: Zeina Larios on 04-16-2023 Monocytes/100 WBC (Bld) 5.5 % 0-10 [facility] Blood platelet mean volumeOr dered By: Zeina Larios on 04-16-2023 Platelet mean volume (Bld) [Entitic vol] 9.5 fL 6.2-12.0 [facility] Determination of erythrocyte mean corpuscular volume (MCV)Ordered By: Zeina Larios on 04-16-2023 MCV (RBC) [Entitic vol] 96.0 fL 80-94 [facility] Hematocrit Auto (Bld) [Volum e fraction]Ordered By: Zeina Larios on 04-16-2023 Hematocrit (Bld) [Volume fraction] 36.2 % 40-54 [facility] - Chemistry and C hemistry - challengeOrdered By: Zeina Larios on 04-16-2023 CO2 [Moles/Vol] 29.0 mmol/L 21.0-32.0 [facility] Urea nitrogen/Creatinine [Mass ratio] 9.8 mg/mg 10-20 [facility] - Hematology and Cell countsOrdered By: Zeina Larios on 04-16-2023 Erythrocyte distribution width (RBC) [Entitic vol] 45.0 fL 35.1-43.9 [facility] Erythrocyte distribution width (RBC) [Ratio] 12.8 % 11.6-14.6 [facility] Immature granulocytes/100 WBC (Bld) 0.300 % 0.0-0.9 [facility] Comment on above: IG% - Immature Granu locytes (promyelocytes, myelocytes and metamyelocytes) > 1% indicates that a LEFT SHIFT is Present. MCH (RBC) [Entitic mass] 32.1 pg 27.0-32.0 [facility] Nucleated RBC/100 WBC (Bld) [Ratio] 0 % 0-5 [facility] MCHC Auto (RBC) [Mass/Vol]Or dered By: Zeina Larios on 04-16-2023 MCHC (RBC) [Mass/Vol] 33.4 g/dL 32-36 [facility] No Panel InformationOrdered By: Zeina Larios on 04-16-2023 Troponin I High Sensitivity 6 pg/mL 3.0-78.0 [facility] Comment on above: Please Note: New Abril t Units and Gender Specific Reference Ranges. For more information see Policy Stat Procedure [place] High Sensitivity Troponin (TNIH) and attachments. Estimated Creatinine Clearance Calc 58.46 ml/min [facility] Estimated GFR (MDRD) Amer 81 mL/min >60 [facility] Comment on above: GFR Calc Estimated GFR (MDRD) Non-Af Amer 67 mL/min >60 [facility] Comment on above: Non- GFR Calc Platelets bldOrdered By: Elizabeth Larios on 04-16-2023 Platelets (Bld) [#/Vol] 365 10*3/uL 150-450 [facility] Serum or plasma calcium obdulia urement (mass/volume)Ordered By: Zeina Larios on 04-16-2023 Calcium [Mass/Vol] 9.5 mg/dL 8.5-10.1 [facility] Serum or plasma creatinine m easurement (mass/volume)Ordered By: Zeina Larios on 04-16-2023 Creatinine [Mass/Vol] 1.12 mg/dL 0.70-1.30 [facility] Comment on above: The validity of the calculated GFR & GFRAA in patients over 70 years has not been determined. Clinical correlation is essential. Serum or plasma urea nitroge n measurement (mass/volume)Ordered By: Zeina Larios on 04-16-2023 Urea nitrogen [Mass/Vol] 11 mg/dL 7-18 [facility] Thin prep Papanicolaou smear with manual screeningOrdered By: Zeina Larios on 04-16-2023 Thin prep Papanicolaou smear with manual screening 5 5-15 [facility] Absolute lymphocyte countOrd ered By: Claire Hines on 03-13-2023 Lymphocytes Auto (Unsp spec) [#/Vol] 1.25 10*3/uL 0.83-4.51 [facility] Basophil percentageOrdered B y: Claire Hines on 03-13-2023 Basophils/100 WBC (Bld) 0.8 % 0-1 [facility] Bilirubin [Mass/Vol] 0.40 mg/dL 0.20-1.00 [facility] Comment on above: For patients on eltr ombopag therapy, use of Dimension [place] TBIL is not recommended. Chloride [Moles/Vol] 104 mmol/L 98-107 [facility] Eosinophils/100 WBC (Bld) 2.7 % 0-5 [facility] Glucose [Mass/Vol] 98 mg/dL 74-106 [facility] Neutrophils (Bld) [#/Vol] 7.9 10*3/uL 2.0-7.7 [facility] Neutrophils/100 WBC (Bld) 74.8 % 47-70 [facility] Potassium [Moles/Vol] 4.4 mmol/L 3.5-5.1 [facility] Protein [Mass/Vol] 7.0 g/dL 6.4-8.2 [facility] Sodium [Moles/Vol] 136 mmol/L 136-145 [facility] WBC (Bld) [#/Vol] 10.6 10*3/uL 4.4-11.0 [facility] Blood erythrocytes count (nu mber/volume)Ordered By: Claire Hines on 03-13-2023 RBC (Bld) [#/Vol] 3.53 10*6/uL 4.6-6.2 [facility] Blood hemoglobin measurement (mass/volume)Ordered By: Claire Hines on 03-13-2023 Hemoglobin (Bld) [Mass/Vol] 11.0 g/dL 13.0-16.5 [facility] Blood lymphocytes/100 leukoc ytesOrdered By: Claire Hines on 03-13-2023 Lymphocytes/100 WBC (Bld) 11.8 % 19-41 [facility] Blood monocytes/100 leukocyt esOrdered By: Claire Hines on 03-13-2023 Monocytes/100 WBC (Bld) 9.3 % 0-10 [facility] Blood platelet mean volumeOr dered By: Claire Hines on 03-13-2023 Platelet mean volume (Bld) [Entitic vol] 9.4 fL 6.2-12.0 [facility] Determination of erythrocyte mean corpuscular volume (MCV)Ordered By: Claire Hines on 03-13-2023 MCV (RBC) [Entitic vol] 96.9 fL 80-94 [facility] Hematocrit Auto (Bld) [Volum e fraction]Ordered By: Claire Hines on 03-13-2023 Hematocrit (Bld) [Volume fraction] 34.2 % 40-54 [facility] Laboratory - Chemistry and C hemistry - challengeOrdered By: Claire Hines on 03-13-2023 ALP [Catalytic activity/Vol] 106 U/L 45-117 [facility] ALT [Catalytic activity/Vol] 22 U/L 16-61 [facility] CO2 [Moles/Vol] 27.0 mmol/L 21.0-32.0 [facility] Globulin (S) [Mass/Vol] 3.8 g/dL 2.2-4.2 [facility] Lipase [Catalytic activity/Vol] 33 U/L 13-75 [facility] Comment on above: Please note:LIPASE r evised reference range effective 22. New Lipase methodology. Expected to produce lower values than the previous assay method. NEW Reference Range: 13 - 75 U/L Urea nitrogen/Creatinine [Mass ratio] 14.0 mg/mg 10-20 [facility] - Hematology and Cell countsOrdered By: Claire Hines on 03-13-2023 Erythrocyte distribution width (RBC) [Entitic vol] 46.8 fL 35.1-43.9 [facility] Erythrocyte distribution width (RBC) [Ratio] 13.2 % 11.6-14.6 [facility] Immature granulocytes/100 WBC (Bld) 0.600 % 0.0-0.9 [facility] Comment on above: IG% - Immature Granu locytes (promyelocytes, myelocytes and metamyelocytes) > 1% indicates that a LEFT SHIFT is Present. MCH (RBC) [Entitic mass] 31.2 pg 27.0-32.0 [facility] Nucleated RBC/100 WBC (Bld) [Ratio] 0 % 0-5 [facility] MCHC Auto (RBC) [Mass/Vol]Or dered By: Claire Hines on 03-13-2023 MCHC (RBC) [Mass/Vol] 32.2 g/dL 32-36 [facility] No Panel InformationOrdered By: Claire Hines on 03-13-2023 Estimated GFR (MDRD) Amer 92 mL/min >60 [facility] Comment on above: GFR Calc Estimated GFR (MDRD) Non-Af Amer 76 mL/min >60 [facility] Comment on above: Non- GFR Calc Troponin I High Sensitivity 6 pg/mL 3.0-78.0 [facility] Comment on above: Please Note: New Abril t Units and Gender Specific Reference Ranges. For more information see Policy Stat Procedure [place] High Sensitivity Troponin (TNIH) and attachments. Platelets bldOrdered By: Zita Hines on 03-13-2023 Platelets (Bld) [#/Vol] 423 10*3/uL 150-450 [facility] Serum or plasma albumin obdulia urement (mass/volume)Ordered By: Claire Hines on 03-13-2023 Albumin [Mass/Vol] 3.2 g/dL 3.2-5.0 [facility] Serum or plasma albumin/glob ulin mass ratioOrdered By: Claire Hines on 03-13-2023 Albumin/Globulin [Mass ratio] 0.8 {ratio} 0.9-2.4 [facility] Serum or plasma calcium obdulia urement (mass/volume)Ordered By: Claire Hines on 03-13-2023 Calcium [Mass/Vol] 8.8 mg/dL 8.5-10.1 [facility] Serum or plasma creatinine m easurement (mass/volume)Ordered By: Claire Hines on 03-13-2023 Creatinine [Mass/Vol] 1.00 mg/dL 0.70-1.30 [facility] Comment on above: The validity of the calculated GFR & GFRAA in patients over 70 years has not been determined. Clinical correlation is essential. Serum or plasma urea nitroge n measurement (mass/volume)Ordered By: Claire Hines on 03-13-2023 Urea nitrogen [Mass/Vol] 14 mg/dL 7-18 [facility] Thin prep Papanicolaou smear with manual screeningOrdered By: Claire Hines on 03-13-2023 Thin prep Papanicolaou smear with manual screening 17 U/L 15-37 [facility] Thin prep Papanicolaou smear with manual screening 5 5-15 [facility] UA DIP, URINE (POC)on 2022 BILIRUBIN UA (POCT) Negative Negative [facility] CLARITY UA (POCT) Clear [facility] COLOR UA (POCT) Yellow [facility] GLUCOSE UA (POCT) Negative Negative mg/dL [facility] Hemoglobin Ql (U) Negative Negative [facility] KETONE UA (POCT) Negative Negative mg/dL [facility] LEUKOCYTES UA (POCT) Negative Negative [facility] NITRITE UA (POCT) Negative Negative [facility] PH UA (POCT) 7.0 4.5 - 8.0 [facility] Protein Ql (U) Negative Negative mg/dL [facility] SPECIFIC GRAVITY UA (POCT) 1.010 1.005 - 1.030 [facility] UROBILINOGEN UA (POCT) 0.2 E.U./dL Layla l E.U./dL [facility] Basophil percentageOrdered B y: Mallorie Santos on 10-11-2022 Chloride [Moles/Vol] 102 mmol/L 98-107 [facility] Glucose [Mass/Vol] 147 mg/dL 74-106 [facility] Comment on above: Fasting Glucose resu lt greater than or equal to 126 mg/dL suggests DIABETES MELLITUS per A.D.A. criteria. Potassium [Moles/Vol] 4.0 mmol/L 3.5-5.1 [facility] Sodium [Moles/Vol] 135 mmol/L 136-145 [facility] WBC (Bld) [#/Vol] 8.5 10*3/uL 4.4-11.0 [facility] Blood erythrocytes count (nu mber/volume)Ordered By: Mallorie Santos on 10-11-2022 RBC (Bld) [#/Vol] 4.03 10*6/uL 4.6-6.2 [facility] Blood hemoglobin measurement (mass/volume)Ordered By: Mallorie Santos on 10-11-2022 Hemoglobin (Bld) [Mass/Vol] 12.6 g/dL 13.0-16.5 [facility] Blood platelet mean volumeOr dered By: Mallorie Santos on 10-11-2022 Platelet mean volume (Bld) [Entitic vol] 9.8 fL 6.2-12.0 [facility] Determination of erythrocyte mean corpuscular volume (MCV)Ordered By: Mallorie Santos on 10-11-2022 MCV (RBC) [Entitic vol] 97.3 fL 80-94 [facility] Hematocrit Auto (Bld) [Volum e fraction]Ordered By: Mallorie Santos on 10-11-2022 Hematocrit (Bld) [Volume fraction] 39.2 % 40-54 [facility] - Chemistry and C hemistry - challengeOrdered By: Mallorie Santos on 10-11-2022 CO2 [Moles/Vol] 26.0 mmol/L 21.0-32.0 [facility] Natriuretic peptide B (Bld) [Mass/Vol] 28.6 pg/mL 0-100 [facility] Urea nitrogen/Creatinine [Mass ratio] 13.2 mg/mg 10-20 [facility] - Hematology and Cell countsOrdered By: Mallorie Santos on 10-11-2022 Erythrocyte distribution width (RBC) [Entitic vol] 47.3 fL 35.1-43.9 [facility] Erythrocyte distribution width (RBC) [Ratio] 13.1 % 11.6-14.6 [facility] MCH (RBC) [Entitic mass] 31.3 pg 27.0-32.0 [facility] MCHC Auto (RBC) [Mass/Vol]Or dered By: Mallorie Santos on 10-11-2022 MCHC (RBC) [Mass/Vol] 32.1 g/dL 32-36 [facility] No Panel InformationOrdered By: Mallorie Santos on 10-11-2022 Estimated GFR (MDRD) Amer 74 mL/min >60 [facility] Comment on above: GFR Calc Estimated GFR (MDRD) Non-Af Amer 61 mL/min >60 [facility] Comment on above: Non- GFR Calc Platelets bldOrdered By: Srinivasan Santos on 10-11-2022 Platelets (Bld) [#/Vol] 414 10*3/uL 150-450 [facility] Serum or plasma calcium obdulia urement (mass/volume)Ordered By: Mallorie Santos on 10-11-2022 Calcium [Mass/Vol] 9.2 mg/dL 8.5-10.1 [facility] Serum or plasma creatinine m easurement (mass/volume)Ordered By: Mallorie Santos on 10-11-2022 Creatinine [Mass/Vol] 1.21 mg/dL 0.70-1.30 [facility] Comment on above: The validity of the calculated GFR & GFRAA in patients over 70 years has not been determined. Clinical correlation is essential. Serum or plasma urea nitroge n measurement (mass/volume)Ordered By: Mallorie Santos on 10-11-2022 Urea nitrogen [Mass/Vol] 16 mg/dL 7-18 [facility] Thin prep Papanicolaou smear with manual screeningOrdered By: Mallorie Santos on 10-11-2022 Thin prep Papanicolaou smear with manual screening 7 5-15 [facility] Absolute lymphocyte countOrd ered By: Mallorie Santos on 05-26-2022 Lymphocytes Auto (Unsp spec) [#/Vol] 1.44 10*3/uL 0.83-4.51 [facility] Basophil percentageOrdered B y: Mallorie Santos on 05-26-2022 Basophils/100 WBC (Bld) 0.6 % 0-1 [facility] Eosinophils/100 WBC (Bld) 2.0 % 0-5 [facility] Neutrophils (Bld) [#/Vol] 9.0 10*3/uL 2.0-7.7 [facility] Neutrophils/100 WBC (Bld) 77.1 % 47-70 [facility] WBC (Bld) [#/Vol] 11.7 10*3/uL 4.4-11.0 [facility] Blood erythrocytes count (nu mber/volume)Ordered By: Mallorie Santos on 05-26-2022 RBC (Bld) [#/Vol] 4.16 10*6/uL 4.6-6.2 [facility] Blood hemoglobin measurement (mass/volume)Ordered By: Mallorie Santos on 05-26-2022 Hemoglobin (Bld) [Mass/Vol] 12.9 g/dL 13.0-16.5 [facility] Blood lymphocytes/100 leukoc ytesOrdered By: Mallorie Santos on 05-26-2022 Lymphocytes/100 WBC (Bld) 12.3 % 19-41 [facility] Blood monocytes/100 leukocyt esOrdered By: Mallorie Santos on 05-26-2022 Monocytes/100 WBC (Bld) 7.6 % 0-10 [facility] Blood platelet mean volumeOr dered By: Mallorie Santos on 05-26-2022 Platelet mean volume (Bld) [Entitic vol] 10.3 fL 6.2-12.0 [facility] Determination of erythrocyte mean corpuscular volume (MCV)Ordered By: Mallorie Santos on 05-26-2022 MCV (RBC) [Entitic vol] 94.0 fL 80-94 [facility] Hematocrit Auto (Bld) [Volum e fraction]Ordered By: Mallorie Santos on 05-26-2022 Hematocrit (Bld) [Volume fraction] 39.1 % 40-54 [facility] - Hematology and Cell countsOrdered By: Mallorie Santos on 05-26-2022 Erythrocyte distribution width (RBC) [Entitic vol] 44.5 fL 35.1-43.9 [facility] Erythrocyte distribution width (RBC) [Ratio] 12.9 % 11.6-14.6 [facility] Immature granulocytes/100 WBC (Bld) 0.400 % 0.0-0.9 [facility] Comment on above: IG% - Immature Granu locytes (promyelocytes, myelocytes and metamyelocytes) > 1% indicates that a LEFT SHIFT is Present. MCH (RBC) [Entitic mass] 31.0 pg 27.0-32.0 [facility] Nucleated RBC/100 WBC (Bld) [Ratio] 0 % 0-5 [facility] MCHC Auto (RBC) [Mass/Vol]Or dered By: Mallorie Santos on 05-26-2022 MCHC (RBC) [Mass/Vol] 33.0 g/dL 32-36 [facility] Platelets bldOrdered By: Srinivasan Santos on 05-26-2022 Platelets (Bld) [#/Vol] 370 10*3/uL 150-450 [facility] Basophil percentageOrdered B y: Dr. Kramer on 05-18-2022 Bilirubin [Mass/Vol] 0.70 mg/dL 0.20-1.00 [facility] Comment on above: For patients on eltr ombopag therapy, use of Dimension [place] TBIL is not recommended. Cholesterol [Mass/Vol] 184 mg/dL <200 [facility] Comment on above: <200 mg/dL Desirable 200-240 mg/dL Borderline >240 mg/dL High Risk Protein [Mass/Vol] 7.9 g/dL 6.4-8.2 [facility] Triglyceride [Mass/Vol] 160 mg/dL <199 [facility] Comment on above: The drugs N-Acetylcy steine and Metamizole may falsely depress this assay.Serum Triglycerides Reference Interval Normal <150 mg/dL Borderline high 150 - 199 mg/dL High 200 - 499 mg/dL Very High > or = 500 mg/dL Direct bilirubinOrdered By: Dr. Kramer on 05-18-2022 Bilirubin.direct [Mass/Vol] 0.18 mg/dL 0.00-0.30 [facility] - Chemistry and C hemistry - challengeOrdered By: Dr. Kramer on 05-18-2022 ALP [Catalytic activity/Vol] 101 U/L 45-117 [facility] ALT [Catalytic activity/Vol] 57 U/L 16-61 [facility] Globulin (S) [Mass/Vol] 4.3 g/dL 2.2-4.2 [facility] Serum or plasma albumin obdulia urement (mass/volume)Ordered By: Dr. Kramer on 05-18-2022 Albumin [Mass/Vol] 3.6 g/dL 3.2-5.0 [facility] Serum or plasma cholesterol in HDL measurement (mass/volume)Ordered By: Dr. Kramer on 05-18-2022 Cholesterol in HDL [Mass/Vol] 58 mg/dL >40 [facility] Comment on above: The drugs N-Acetylcy steine and Metamizole may falsely depress this assay. Reference Range HDL <40 mg/dL Low HDL Cholesterol HDL >or= 60 mg/dL High HDL Cholesterol Serum or plasma cholesterol in VLDL measurement (mass/volume)Ordered By: Dr. Kramer on 05-18-2022 Cholesterol in VLDL [Mass/Vol] 32 mg/dL 5-40 [facility] Serum or plasma low density lipoprotein (LDL) cholesterol measurement (mass/volume)Ordered By: Dr. Kramer on 05-18-2022 Cholesterol in LDL [Mass/Vol] 94 mg/dL 0-130 [facility] Thin prep Papanicolaou smear with manual screeningOrdered By: Dr. Kramer on 05-18-2022 Thin prep Papanicolaou smear with manual screening 28 U/L 15-37 [facility] MRI BRAIN WO IVCONon 022 [facility] No Panel Informationon 01-25 Radiology Result ACTIONABLE Abnormal [facility] No Panel Informationon 12-01 [facility] XR Chest PA and Lateralon IMPRESSION: Stable chest. No acute cardiopulmonary process. Marriage And Family Counselor: KENTRELL Transcribe Date/Time: Oct 29 2020 1:59P Dictated by : KAYLEIGH EMERY MD This examination was interpreted and the report reviewed and electronically signed by: KAYLEIGH EMERY MD on Oct 29 2020 2:07PM [facility] DIVISION OF RADIOLOGY * * *Final Report* [...] structures are intact DIVISION OF RADIOLOGY Provider, [facility] - 10/29/2020 * * *Final Report* * [...] IMPRESSION: Stable chest. No acute cardiopulmonary process. Marriage And Family Counselor: KENTRELL Transcribe Date/Time: Oct 29 2020 1:59P Dictated by : KAYLEIGH EMERY MD This examination was interpreted and the report reviewed and electronically signed by: KAYLEIGH EMERY MD on Oct 29 2020 2:07PM EST [facility] Radiology Study observation (narrative) [place] [facility] XR Chest PA and LateralOrder ed By: [facility] Provider on 10-29-2020 [facility] Lab Report: Lipid Profileon 05-17-2017 Cholesterol 149 mg/dL Invalid Interpretation Code 200 [employer] Work Phone: [phone] HDL Cholesterol 59 mg/dL Invalid Interpretation Code [employer] Work Phone: [phone] LDL Cholesterol 61 mg/dL Invalid Interpretation Code 0-130 [employer] Work Phone: [phone] Triglyceride 143 mg/dL Invalid Interpretation Code [employer] Work Phone: [phone] very low density lipoproteins 29 mg/dL Invalid Interpretation Code 5-40 [employer] Work Phone: [phone] Lab Report: Liver Profileon 05-17-2017 Alanine aminotransferase (ALT) 44 U/L Invalid Interpretation Code 12-78 [employer] Work Phone: [phone] Albumin 3.7 g/dL Invalid Interpretation Code 3.4-5.0 [employer] Work Phone: [phone] Alkaline phosphatase (ALP) 101 U/L Invalid Interpretation Code 45-117 [employer] Work Phone: [phone] Aspartate aminotransferase (AST) 25 U/L Invalid Interpretation Code 15-37 [employer] Phone: [phone] Bilirubin (direct) 0.19 mg/dL Invalid Interpretation Code 0.00-0.30 [employer] Phone: [phone] Bilirubin (total) 0.60 mg/dL Invalid Interpretation Code 0.20-1.00 [employer] Phone: [phone] Globulin 4.0 g/dL Invalid Interpretation Code 2.2-4.2 [employer] Work Phone: [phone] Protein 7.7 g/dL Invalid Interpretation Code 6.4-8.2 [employer] Phone: [phone] Office Visiton 07-27-2016 Dietary management education, guidance, and counseling (procedure) yes Invalid Interpretation Code [employer] Phone: [phone] Documentation of current medications (procedure) Done Invalid Interpretation Code [employer] Work Phone: [phone] Clinical Lists Update: [facility] aluminizer 07-18-2016 Left ventricular Ejection fraction 65 % Invalid Interpretation Code [employer] Work Phone: [phone] Replaced Document: Rose AMARO Observationson 02-08-2016 electrocardiogram interpretation Sinus Bradycardia -RSR(V1) -nondiagnostic. PROBABLY NORMAL Invalid Interpretation Code [employer] Work Phone: [phone] GE use only - for [employer] import when terms are not otherwise specified 411 ms Invalid Interpretation Code [employer] Work Phone: [phone] P wave axis, electrocardiogram 41 deg Invalid Interpretation Code [employer] Work Phone: [phone] WV interval, electrocardiogram 168 ms Invalid Interpretation Code [employer] Work Phone: [phone] Pulse (Heart Rate) 59 /min Invalid Interpretation Code [employer] Work Phone: [phone] QRS axis, electrocardiogram 2 deg Invalid Interpretation Code [employer] Work Phone: [phone] QRS duration, electrocardiogram 94 ms Invalid Interpretation Code [employer] Work Phone: [phone] QT interval, electrocardiogram new path ms Invalid Interpretation Code [employer] Work Phone: [phone] T wave axis, electrocardiogram 30 deg Invalid Interpretation Code [employer] Work Phone: [phone] Clinical Lists Update: [facility] aluminizer 12-08-2015 BUN/Creatinine Ratio 15.1 mg/mg Invalid Interpretation Code [employer] Work Phone: [phone] Calcium 8.8 mg/dL Invalid Interpretation Code [employer] Work Phone: [phone] Chloride 103 mmol/L Invalid Interpretation Code [employer] Work Phone: [phone] CO2 29.0 mmol/L Invalid Interpretation Code [employer] Work Phone: [phone] Creatinine 1.26 mg/dL Invalid Interpretation Code [employer] Work Phone: [phone] Glucose 139 mg/dL Invalid Interpretation Code [employer] Work Phone: [phone] Potassium 3.8 mmol/L Invalid Interpretation Code [employer] Work Phone: [phone] Sodium 138 mmol/L Invalid Interpretation Code [facility] Work Phone: [phone] Urea nitrogen 19 mg/dL Invalid Interpretation Code [facility] Work Phone: [phone] Office Visiton 07-29-2015 Fall risk assessment Invalid Interpretation Code [facility] [employer] Work Phone: [phone] Tobacco smoking status NHIS Tobacco smoking status KYIS Invalid Interpretation Code [facility] Work Phone: [phone] Lab Report: Basic Metabolic Profile (BMP)on 02-11-2015 Anion gap 6 mmol/L Invalid Interpretation Code 5-15 [facility] Work Phone: [phone] eGFR (non-black) 60 mL/min/{1.73_m2} Invalid Interpretation Code >60 [facility] Work Phone: [phone] eGFR (non-black) 73 mL/min/{1.73_m2} Invalid Interpretation Code >60 [facility] Work Phone: [phone] Lab Report: Prothrombin Time w/INRon 01-30-2015 Coagulation tissue factor induced in platelet poor plasma 13.7 s Invalid Interpretation Code 11.7-14.9 [facility] Work Phone: [phone] INR in blood by coagulation 1.0 {INR} Invalid Interpretation Code [facility] Work Phone: [phone] Lab Report: CBC-Complete Blo od Cnt No Diffon 01-29-2015 Erythrocytes (RBC) 4.02 10*6/uL Low 4.6-6.[address] [facility] Work Phone: [phone] Hematocrit (HCT) 37.0 % Low 40-54 [facility] Work Phone: [phone] Hemoglobin (HGB) 12.7 g/dL Low 13.0-16.5 [facility] Work Phone: [phone] MCH 31.6 pg Invalid Interpretation Code 27.0-32.0 [facility] Work Phone: [phone] MCHC 34.3 G/GL Invalid Interpretation Code 32-36 [facility] Work Phone: [phone] MCV 92.0 fL Invalid Interpretation Code 80-94 [facility] Work Phone: [phone] Platelets 305 10*3/mm3 Invalid Interpretation Code 150-450 [employer] Work Phone: [phone] PMV by Todd 11.2 fL Invalid Interpretation Code 6.2-12.0 [employer] Work Phone: [phone] RDW-CA 12.1 % Invalid Interpretation Code 11.6-14.6 [employer] Work Phone: [phone] red blood cell distribution width, size density 40.1 fL Invalid Interpretation Code 35.1-43.9 [employer] Work Phone: [phone] WBC (Leukocytes) 7.8 10*3/uL Invalid Interpretation Code 4.4-11.0 [employer] Work Phone: [phone] Office Visiton 11-19-2014 Thyroid stimulating hormone (TSH) 1.32 u[iU]/mL Invalid Interpretation Code [employer] Work Phone: [phone] Office Visit: [facility] 06-12-19 15 cardiac risk group C Invalid Interpretation Code [employer] Work Phone: [phone] General cardiovascular disease 10Y risk [#] [place] N/A Invalid Interpretation Code [employer] Work Phone: [phone] Tobacco smoking status NHIS Never Invalid Interpretation Code [employer] Work Phone: [phone] Replaced Document: Rose Muir CG Observationson 06-18-2013 Pulse (Heart Rate) 393 ms Invalid Interpretation Code [employer] Work Phone: [phone] Clinical Lists Update: [facility] [employer] 05-21-2011 Glucose 126 mg/dL High [employer] Work Phone: [phone] Vital Signs Date Time Vital Sign Value Performing Clinician Facility 02-04-2025 09:20-0400 Body mass index (BMI) [Ratio] 28.74 kg/m2 George Vaughan MD Work Phone: [facility] 02-04-2025 09:20-0400 Body temperature 97.5 [degF] George Vaughan MD Work Phone: [facility] 02-04-2025 09:20-0400 Body weight 98.8 kg George Vaughan MD Work Phone: [facility] 02-04-2025 09:20-0400 Diastolic blood pressure 70 mm[Hg] George Vaughan MD Work Phone: [facility] 02-04-2025 09:20-0400 Heart rate 64 /min George Vaughan MD Work Phone: [facility] 02-04-2025 09:20-0400 Respiratory rate 18 /min George Vaughan MD Work Phone: [facility] 02-04-2025 09:20-0400 Systolic blood pressure 110 mm[Hg] George Vaughan MD Work Phone: [facility] 01-27-2025 22:15-0400 Body temperature 98.6 [degF] Dr. George Vaughan MD Work Phone: [facility] 01-27-2025 22:15-0400 Diastolic blood pressure 82 mm[Hg] Dr. George Vaughan MD Work Phone: [facility] 01-27-2025 22:15-0400 Heart rate 71 /min Dr. George Vaughan MD Work Phone: [facility] 01-27-2025 22:15-0400 Respiratory rate 16 /min Dr. George Vaughan MD Work Phone: [facility] 01-27-2025 22:15-0400 SaO2% (BldA) [Mass fraction] 98 % Dr. George Vaughan MD Work Phone: [facility] 01-27-2025 22:15-0400 Systolic blood pressure 142 mm[Hg] Dr. George Vaughan MD Work Phone: [facility] 01-27-2025 20:48-0400 Body height 185.[address] George Vaughan MD Work Phone: [facility] 01-10-2025 15:35-0400 Body temperature 97.5 [degF] Dr. George Vaughan MD Work Phone: [phone] [place] [address] 01-10-2025 15:35-0400 Diastolic blood pressure 66 mm[Hg] Dr. George Vaughan MD Work Phone: [phone] [place] [address] 01-10-2025 15:35-0400 Heart rate 59 /min Dr. George Vaughan MD Work Phone: [phone] [place] [address] 01-10-2025 15:35-0400 Respiratory rate 16 /min Dr. George Vaughan MD Work Phone: [phone] [place] [address] 01-10-2025 15:35-0400 SaO2% (BldA) [Mass fraction] 96 % Dr. George Vaughan MD Work Phone: [phone] [place] [address] 01-10-2025 15:35-0400 Systolic blood pressure 134 mm[Hg] Dr. George Vaughan MD Work Phone: [phone] [place] [address] 01-10-2025 14:08-0400 Body height 185.[address] George Vaughan MD Work Phone: [phone] [place] [address] 01-10-2025 14:08-0400 Body mass index (BMI) [Ratio] 28.2 kg/m2 Dr. George Vaughan MD Work Phone: [phone] [place] [address] 01-10-2025 14:08-0400 Body weight [address] George Vaughan MD Work Phone: [phone] [place] [address] 12-20-2024 10:44-0400 Body mass index (BMI) [Ratio] 28.39 kg/m2 Landon Strange Jr., MD Work Phone: [facility] 12-20-2024 10:44-0400 Body weight 97.61 kg Landon Strange Jr., MD Work Phone: [facility] 12-20-2024 10:44-0400 Respiratory rate 16 /min Landon Strange Jr., MD Work Phone: [facility] 12-20-2024 10:44-0400 SaO2% (BldA) [Mass fraction] 98 % Landon Strange Jr., MD Work Phone: [facility] 12-18-2024 14:14-0400 Body mass index (BMI) [Ratio] 27.44 kg/m2 Gertrude Brooks [employer] Work Phone: [facility] 12-18-2024 14:14-0400 Body temperature 97.11 [degF] Gertrude Brooks [employer] Work Phone: [facility] 12-18-2024 14:14-0400 Body weight 94.35 kg Gertrude Brooks [employer] Work Phone: [facility] 12-18-2024 14:14-0400 Diastolic blood pressure 72 mm[Hg] Gertrude Brooks [employer] Work Phone: [facility] 12-18-2024 14:14-0400 Heart rate 68 /min Gertrude Brooks [employer] Work Phone: [facility] 12-18-2024 14:14-0400 Respiratory rate 14 /min Gertrude Brooks [employer] Work Phone: [facility] 12-18-2024 14:14-0400 SaO2% (BldA) [Mass fraction] 96 % Gertrude Brooks [employer] Work Phone: [facility] 12-18-2024 14:14-0400 Systolic blood pressure 130 mm[Hg] Gertrude Brooks [employer] Work Phone: [facility] 12-06-2024 09:50-0400 Body temperature 97.6 [degF] Dr. George Vaughan MD Work Phone: [facility] 12-06-2024 09:50-0400 Diastolic blood pressure 69 mm[Hg] Dr. George Vaughan MD Work Phone: [facility] 12-06-2024 09:50-0400 SaO2% (BldA) [Mass fraction] 99 % Dr. George Vaughan MD Work Phone: [facility] 12-06-2024 09:50-0400 Systolic blood pressure 165 mm[Hg] Dr. George Vaughan MD Work Phone: [facility] 11-29-2024 09:46-0400 Body height 185.4 cm Pacc 1 Work Phone: [facility] 11-29-2024 09:46-0400 Body mass index (BMI) [Ratio] 28.76 kg/m2 Pacc 1 Work Phone: [facility] 11-29-2024 09:46-0400 Body temperature 97.11 [degF] Pacc 1 Work Phone: [facility] 11-29-2024 09:46-0400 Body weight 98.88 kg Pacc 1 Work Phone: [facility] 11-29-2024 09:46-0400 Diastolic blood pressure 72 mm[Hg] Pacc 1 Work Phone: [facility] [facility] 11[facility]-2024 09:46-0400 Heart rate 61 /min Pacc 1 Work Phone: [facility] 11-29-2024 09:46-0400 Respiratory rate 14 /min Pacc 1 Work Phone: [facility] 11-29-2024 09:46-0400 SaO2% (BldA) [Mass fraction] 98 % Pacc 1 Work Phone: [facility] 11-29-2024 09:46-0400 Systolic blood pressure 138 mm[Hg] Pacc 1 Work Phone: [facility] 11-29-2024 08:06-0400 Diastolic blood pressure 72 mm[Hg] Dr. George Vaughan MD Work Phone: [facility] 11-29-2024 08:06-0400 Heart rate 70 /min Dr. George Vaughan MD Work Phone: [facility] 11-29-2024 08:06-0400 Systolic blood pressure 136 mm[Hg] Dr. George Vaughan MD Work Phone: [facility] 11-29-2024 07:58-0400 Body height 185.[address] George Vaughan MD Work Phone: [facility] 11-29-2024 07:58-0400 Body mass index (BMI) [Ratio] 28.8 kg/m2 Dr. George Vaughan MD Work Phone: [facility] 11-29-2024 07:58-0400 Body weight 98.[address] George Vaughan MD Work Phone: [facility] 11-29-2024 07:58-0400 Respiratory rate 16 /min Dr. George Vaughan MD Work Phone: [facility] 11-19-2024 10:24-0400 Body height 185.4 cm Sheldon Slater MD Work Phone: [facility] 11-19-2024 10:24-0400 Body mass index (BMI) [Ratio] 28.6 kg/m2 Sheldon Slater MD Work Phone: [facility] 11-19-2024 10:24-0400 Body temperature 97.11 [degF] Sheldon Slater MD Work Phone: [facility] 11-19-2024 10:24-0400 Body weight 98.34 kg Sheldon Slater MD Work Phone: [facility] 11-19-2024 10:24-0400 Diastolic blood pressure 64 mm[Hg] Sheldon Slater MD Work Phone: [facility] 11-19-2024 10:24-0400 Heart rate 81 /min Sheldon Slater MD Work Phone: [facility] 11-19-2024 10:24-0400 Respiratory rate 19 /min Sheldon Slater MD Work Phone: [facility] 11-19-2024 10:24-0400 SaO2% (BldA) [Mass fraction] 97 % Sheldon Slater MD Work Phone: [facility] 11-19-2024 10:24-0400 Systolic blood pressure 136 mm[Hg] Sheldon Slater MD Work Phone: [facility] 11-13-2024 19:26-0400 Body temperature 98.5 [degF] Dr. George Vaughan MD Work Phone: [facility] 11-13-2024 19:26-0400 Diastolic blood pressure 81 mm[Hg] Dr. George Vaughan MD Work Phone: [facility] 11-13-2024 19:26-0400 Heart rate 69 /min Dr. George Vaughan MD Work Phone: [facility] 11-13-2024 19:26-0400 Respiratory rate 12 /min Dr. George Vaughan MD Work Phone: [facility] 11-13-2024 19:26-0400 SaO2% (BldA) [Mass fraction] 100 % Dr. George Vaughan MD Work Phone: [facility] 11-13-2024 19:26-0400 Systolic blood pressure 175 mm[Hg] Dr. George Vaughan MD Work Phone: [facility] 11-13-2024 15:22-0400 Body mass index (BMI) [Ratio] 29.2 kg/m2 Dr. George Vaughan MD Work Phone: [facility] 11-13-2024 15:22-0400 Body weight 100.[address] George Vaughan MD Work Phone: [facility] 11-13-2024 12:48-0400 Body height 185.[address] George Vaughan MD Work Phone: [facility] 08-21-2024 12:27-0400 Body mass index (BMI) [Ratio] 29.18 kg/m2 Jessy Weldon PA-C Work Phone: [facility] 08-21-2024 12:27-0400 Body weight 100.34 kg Jessy Weldon PA-C Work Phone: [facility] 08-21-2024 12:27-0400 Diastolic blood pressure 85 mm[Hg] Jessy Weldon PA-C Work Phone: [facility] 08-21-2024 12:27-0400 Heart rate 62 /min Jessy Weldon PA-C Work Phone: [facility] 08-21-2024 12:27-0400 SaO2% (BldA) [Mass fraction] 99 % Jessy Weldon PA-C Work Phone: [facility] 08-21-2024 12:27-0400 Systolic blood pressure 151 mm[Hg] Jessy Weldon PA-C Work Phone: [facility] 07-29-2024 14:17-0400 Body temperature 98.1 [degF] Dr. George Vaughan MD Work Phone: [facility] 07-29-2024 14:17-0400 Diastolic blood pressure 68 mm[Hg] Dr. George Vaughan MD Work Phone: [facility] 07-29-2024 14:17-0400 Heart rate 65 /min Dr. George Vaughan MD Work Phone: [facility] 07-29-2024 14:17-0400 Respiratory rate 16 /min Dr. George Vaughan MD Work Phone: [facility] 07-29-2024 14:17-0400 SaO2% (BldA) [Mass fraction] 100 % Dr. George Vaughan MD Work Phone: [facility] 07-29-2024 14:17-0400 Systolic blood pressure 123 mm[Hg] Dr. George Vaughan MD Work Phone: [facility] 07-29-2024 09:47-0400 Body temperature 97.9 [degF] Dr. George Vaughan MD Work Phone: [facility] 07-29-2024 09:47-0400 Diastolic blood pressure 67 mm[Hg] Dr. George Vaughan MD Work Phone: [facility] 07-29-2024 09:47-0400 Heart rate 58 /min Dr. George Vaughan MD Work Phone: 2(172)488-157219 [place] [address] 07-29-2024 09:47-0400 Respiratory rate 16 /min Dr. George Vaughan MD Work Phone: 3(983)450-710619 [place] [address] 07-29-2024 09:47-0400 SaO2% (BldA) [Mass fraction] 99 % Dr. George Vaughan MD Work Phone: 7(566)787-056519 [place] [address] 07-29-2024 09:47-0400 Systolic blood pressure 144 mm[Hg] Dr. George Vaughan MD Work Phone: 8(492)015-117719 [place] [address] 07-28-2024 15:24-0400 Body height 185.[address] George Vaughan MD Work Phone: 3(750)198-424119 [place] [address] 07-28-2024 15:24-0400 Body mass index (BMI) [Ratio] 28.3 kg/m2 Dr. George Vaughan MD Work Phone: 6(271)060-059919 [place] [address] 07-28-2024 15:24-0400 Body weight 97.[address] George Vaughan MD Work Phone: 8(731)874-978119 [place] [address] 07-28-2024 14:00-0400 Diastolic blood pressure 65 mm[Hg] Dr. George Vaughan MD Work Phone: 1(064)574-503619 [place] [address] 07-28-2024 14:00-0400 Heart rate 53 /min Dr. George Vaughan MD Work Phone: 4(340)868-311619 [place] [address] 07-28-2024 14:00-0400 Respiratory rate 13 /min Dr. George Vaughan MD Work Phone: 4(351)086-860719 [place] [address] 07-28-2024 14:00-0400 SaO2% (BldA) [Mass fraction] 100 % Dr. George Vaughan MD Work Phone: 8(058)672-858019 [place] [address] 07-28-2024 14:00-0400 Systolic blood pressure 146 mm[Hg] Dr. George Vaughan MD Work Phone: 1(980)843-961619 [place] [address] 07-28-2024 12:03-0400 Body temperature 98.1 [degF] Dr. George Vaughan MD Work Phone: [facility] 07-23-2024 09:00-0500 Body mass index (BMI) [Ratio] 29.46 kg/m2 George Vaughan MD Work Phone: [facility] 07-23-2024 09:00-0500 Body weight 101.3 kg George Vaughan MD Work Phone: [facility] 07-23-2024 09:00-0500 Diastolic blood pressure 64 mm[Hg] George Vaughan MD Work Phone: [facility] 07-23-2024 09:00-0500 Heart rate 68 /min George Vaughan MD Work Phone: [facility] 07-23-2024 09:00-0500 Respiratory rate 18 /min George Vaughan MD Work Phone: [facility] 07-23-2024 09:00-0500 Systolic blood pressure 128 mm[Hg] George Vaughan MD Work Phone: [facility] 05-16-2024 14:38-0500 Body mass index (BMI) [Ratio] 28.97 kg/m2 Ama Roc [employer] Work Phone: [facility] 05-16-2024 14:38-0500 Body temperature 97.39 [degF] Ama Brian [employer] Work Phone: [facility] 05-16-2024 14:38-0500 Body weight 99.6 kg Ama Roc [employer] Work Phone: [facility] 05-16-2024 14:38-0500 Diastolic blood pressure 72 mm[Hg] Ama Roc [employer] Work Phone: [facility] 05-16-2024 14:38-0500 Heart rate 60 /min Ama Brian [employer] Work Phone: [facility] 05-16-2024 14:38-0500 Respiratory rate 18 /min Ama Brian [employer] Work Phone: [facility] 05-16-2024 14:38-0500 SaO2% (BldA) [Mass fraction] 97 % Ama Brian [employer] Work Phone: [facility] 05-16-2024 14:38-0500 Systolic blood pressure 148 mm[Hg] Ama Brian [employer] Work Phone: [facility] 04-30-2024 12:41-0500 Body mass index (BMI) [Ratio] 28.15 kg/m2 Jessy er PA-C Work Phone: [facility] 04-30-2024 12:41-0500 Body weight 96.8 kg Jessy er PA-C Work Phone: [facility] 04-30-2024 12:41-0500 Diastolic blood pressure 81 mm[Hg] Jessy er PA-C Work Phone: [facility] 04-30-2024 12:41-0500 Heart rate 67 /min Jessy Queener PA-C Work Phone: [facility] 04-30-2024 12:41-0500 SaO2% (BldA) [Mass fraction] 96 % Jessy Queener PA-C Work Phone: [facility] 04-30-2024 12:41-0500 Systolic blood pressure 146 mm[Hg] Jessy Brandter PA-C Work Phone: [facility] 01-26-2024 10:48-0400 Body mass index (BMI) [Ratio] 28.42 kg/m2 Landon Strange Jr., MD Work Phone: [facility] 01-26-2024 10:48-0400 Body weight 97.7 kg Landon Strange Jr., MD Work Phone: [facility] 01-26-2024 10:48-0400 Diastolic blood pressure 78 mm[Hg] Landon Strange Jr., MD Work Phone: [facility] 01-26-2024 10:48-0400 Heart rate 62 /min Landon Strange Jr., MD Work Phone: [facility] 01-26-2024 10:48-0400 SaO2% (BldA) [Mass fraction] 99 % Landon Strange Jr., MD Work Phone: [facility] 01-26-2024 10:48-0400 Systolic blood pressure 136 mm[Hg] Landon Strange Jr., MD Work Phone: [facility] 12-30-2023 10:24-0400 Body mass index (BMI) [Ratio] 28.56 kg/m2 George Vaughan MD Work Phone: [facility] 12-30-2023 10:24-0400 Body weight 98.2 kg George Vaughan MD Work Phone: [facility] 12-30-2023 10:24-0400 Diastolic blood pressure 74 mm[Hg] George Vaughan MD Work Phone: [facility] 12-30-2023 10:24-0400 Heart rate 68 /min George Vaughan MD Work Phone: [facility] 12-30-2023 10:24-0400 Respiratory rate 16 /min George Vaughan MD Work Phone: [facility] 12-30-2023 10:24-0400 SaO2% (BldA) [Mass fraction] 98 % George Vaughan MD Work Phone: [facility] 12-30-2023 10:24-0400 Systolic blood pressure 119 mm[Hg] George Vaughan MD Work Phone: [facility] 10-18-2023 11:13-0400 Body mass index (BMI) [Ratio] 28.15 kg/m2 Jessy Weldon PA-C Work Phone: [facility] 10-18-2023 11:130400 Body weight 96.8 kg Jessy Weldon PA-C Work Phone: [facility] 10-18-2023 11:13-0400 Diastolic blood pressure 83 mm[Hg] Jessy Brandter PA-C Work Phone: [facility] 10-18-2023 11:13-0400 Heart rate 61 /min Jessy Brandter PA-C Work Phone: [facility] 10-18-2023 11:13-0400 Respiratory rate 18 /min Jessy Brandter PA-C Work Phone: [facility] 10-18-2023 11:13-0400 SaO2% (BldA) [Mass fraction] 100 % Jessy Brandter PA-C Work Phone: [facility] 10-18-2023 11:13-0400 Systolic blood pressure 143 mm[Hg] Jessy Brandter PA-C Work Phone: [facility] 08-11-2023 12:39-0400 Body weight 96.98 kg Zander Chavez [employer] Work Phone: [facility] 08-11-2023 12:39-0400 Diastolic blood pressure 71 mm[Hg] Zander Sctot [employer] Work Phone: [facility] 08-11-2023 12:39-0400 Heart rate 59 /min Zander Scott [employer] Work Phone: [facility] 08-11-2023 12:39-0400 Respiratory rate 16 /min Zander Scott [employer] Work Phone: [facility] 08-11-2023 12:39-0400 SaO2% (BldA) [Mass fraction] 98 % Zander Chavez [employer] Work Phone: [facility] 08-11-2023 12:39-0400 Systolic blood pressure 123 mm[Hg] Zander Scott [employer] Work Phone: [facility] 04-18-2023 08:45-0500 Body temperature 98.6 [degF] Dr. George Vaughan Work Phone: [facility] 04-18-2023 08:45-0500 Diastolic blood pressure 71 mm[Hg] Dr. George Vaughan Work Phone: [facility] 04-18-2023 08:45-0500 Heart rate 71 /min Dr. George Vaughan Work Phone: [facility] 04-18-2023 08:45-0500 Respiratory rate 14 /min Dr. George Vaughan Work Phone: [facility] 04-18-2023 08:45-0500 SaO2% (BldA) [Mass fraction] 97 % Dr. George Vaughan Work Phone: [facility] 04-18-2023 08:45-0500 Systolic blood pressure 156 mm[Hg] Dr. George Vaughan Work Phone: [facility] 04-16-2023 15:58-0500 Body height 185.[address] George Vaughan Work Phone: [facility] 04-16-2023 15:58-0500 Body mass index (BMI) [Ratio] 26.9 kg/m2 Dr. George Vaughan Work Phone: [facility] 04-16-2023 15:58-0500 Body weight 92.[address] George Vaughan Work Phone: [facility] 04-16-2023 15:00-0500 Diastolic blood pressure 70 mm[Hg] [facility] 04-16-2023 15:00-0500 Heart rate 55 /min [facility] 04-16-2023 15:00-0500 Respiratory rate 19 /min [facility] 04-16-2023 15:00-0500 SaO2% (BldA) [Mass fraction] 97 % [facility] 04-16-2023 15:00-0500 Systolic blood pressure 161 mm[Hg] [facility] 04-16-2023 11:14-0500 Body height 185.42 cm [facility] 04-16-2023 11:14-0500 Body mass index (BMI) [Ratio] 27.6 kg/m2 [facility] 04-16-2023 11:14-0500 Body temperature 97.7 [degF] [facility] 04-16-2023 11:14-0500 Body weight 94.8 kg [facility] 03-13-2023 14:09-0400 Diastolic blood pressure 72 mm[Hg] Dr. George Vaughan Work Phone: [facility] 03-13-2023 14:09-0400 Heart rate 51 /min Dr. George Vaughan Work Phone: [facility] 03-13-2023 14:09-0400 Respiratory rate 16 /min Dr. George Vaughan Work Phone: [facility] 03-13-2023 14:09-0400 SaO2% (BldA) [Mass fraction] 95 % Dr. George Vaughan Work Phone: [facility] 03-13-2023 14:09-0400 Systolic blood pressure 163 mm[Hg] Dr. George Vaughan Work Phone: [facility] 03-13-2023 11:45-0400 Body height 185.[address] George Vaughan Work Phone: [facility] 03-13-2023 11:45-0400 Body temperature 97.6 [degF] Dr. George Vaughan Work Phone: [facility] 02-25-2023 10:24-0400 Body temperature 97 [degF] Charlotte Older [employer] Work Phone: [facility] 02-25-2023 10:24-0400 Body weight 98.79 kg Charlotte Older [employer] Work Phone: [facility] 02-25-2023 10:24-0400 Diastolic blood pressure 58 mm[Hg] Charlotte Older [employer] Work Phone: [facility] 02-25-2023 10:24-0400 Heart rate 75 /min Charlotte Older [employer] Work Phone: [facility] 02-25-2023 10:24-0400 Respiratory rate 17 /min Charlotte Older [employer] Work Phone: [facility] 02-25-2023 10:24-0400 SaO2% (BldA) [Mass fraction] 98 % Charlotte Older [employer] Work Phone: [facility] 02-25-2023 10:24-0400 Systolic blood pressure 144 mm[Hg] Charlotte Older [employer] Work Phone: [facility] 02-24-2023 08:09-0400 Body mass index (BMI) [Ratio] 29.7 kg/m2 Dr. George Vaughan Work Phone: [facility] 02-24-2023 08:09-0400 Body temperature 97.6 [degF] Dr. George Vaughan Work Phone: [facility] 02-24-2023 08:09-0400 Body weight 102.[address] George Vaughan Work Phone: [facility] 02-24-2023 08:09-0400 Diastolic blood pressure 80 mm[Hg] Dr. George Vaughan Work Phone: [facility] 02-24-2023 08:09-0400 Heart rate 62 /min Dr. George Vaughan Work Phone: [facility] 02-24-2023 08:09-0400 Respiratory rate 18 /min Dr. George Vaughan Work Phone: [facility] 02-24-2023 08:09-0400 SaO2% (BldA) [Mass fraction] 99 % Dr. George Vaughan Work Phone: [facility] 02-24-2023 08:09-0400 Systolic blood pressure 171 mm[Hg] Dr. George Vaughan Work Phone: [facility] 12-29-2022 10:42-0400 Body weight 98.34 kg Halima Harvey [employer] Work Phone: [facility] 12-29-2022 10:42-0400 Diastolic blood pressure 62 mm[Hg] Halima Dahlhausen [employer] Work Phone: [facility] 12-29-2022 10:42-0400 Heart rate 64 /min Halima Dahlhausen [employer] Work Phone: [facility] 12-29-2022 10:42-0400 Respiratory rate 16 /min Halima Dahlhausen [employer] Work Phone: [facility] 12-29-2022 10:42-0400 SaO2% (BldA) [Mass fraction] 97 % Halima Dahlhausen [employer] Work Phone: [facility] 12-29-2022 10:42-0400 Systolic blood pressure 126 mm[Hg] Halima Dahlhausen [employer] Work Phone: [facility] 12-15-2022 14:04-0400 Body mass index (BMI) [Ratio] 28.8 kg/m2 Dr. George Vaughan Work Phone: [facility] 12-15-2022 14:04-0400 Body weight 99.[address] George Vaughan Work Phone: [facility] 12-15-2022 14:04-0400 Diastolic blood pressure 71 mm[Hg] Dr. George Vaughan Work Phone: [facility] 12-15-2022 14:04-0400 Heart rate 63 /min Dr. George Vaughan Work Phone: [facility] 12-15-2022 14:04-0400 Respiratory rate 18 /min Dr. George Vaughan Work Phone: [facility] 12-15-2022 14:04-0400 SaO2% (BldA) [Mass fraction] 98 % Dr. George Vaughan Work Phone: [facility] 12-15-2022 14:04-0400 Systolic blood pressure 137 mm[Hg] Dr. George Vaughan Work Phone: [facility] 05-26-2022 15:24-0500 Body height 185.[address] George Vaughan Work Phone: [facility] 05-26-2022 15:24-0500 Body mass index (BMI) [Ratio] 28.3 kg/m2 Dr. George Vaughan Work Phone: [facility] 05-26-2022 15:24-0500 Body weight 97.[address] George Vaughan Work Phone: [facility] 05-26-2022 15:24-0500 Diastolic blood pressure 71 mm[Hg] Dr. George Vaughan Work Phone: [facility] 05-26-2022 15:24-0500 Heart rate 60 /min Dr. George Vaughan Work Phone: [facility] 05-26-2022 15:24-0500 Respiratory rate 18 /min Dr. George Vaughan Work Phone: [facility] 05-26-2022 15:24-0500 SaO2% (BldA) [Mass fraction] 99 % Dr. George Vaughan Work Phone: [facility] 05-26-2022 15:24-0500 Systolic blood pressure 135 mm[Hg] Dr. George Vaughan Work Phone: [facility] 05-04-2022 13:21-0500 Body weight 98.07 kg George Vaughan MD Work Phone: [facility] 05-04-2022 13:21-0500 Diastolic blood pressure 80 mm[Hg] George Vaughan MD Work Phone: [facility] 05-04-2022 13:21-0500 Heart rate 66 /min George Vaughan MD Work Phone: [facility] 05-04-2022 13:21-0500 Respiratory rate 16 /min George Vaughan MD Work Phone: [facility] 12-14-2022 13:21-0500 Systolic blood pressure 140 mm[Hg] George Vaughan MD Work Phone: [facility] 02-17-2022 10:32-0400 Body temperature 97.39 [degF] Halima Dahlhausen [employer] Work Phone: [facility] 02-17-2022 10:32-0400 Body weight 94.8 kg Halima Dahlhausen [employer] Work Phone: [facility] 02-17-2022 10:32-0400 Diastolic blood pressure 60 mm[Hg] Halima Dahlhausen [employer] Work Phone: [facility] 02-17-2022 10:32-0400 Heart rate 78 /min Halima Dahlhausen [employer] Work Phone: [facility] 02-17-2022 10:32-0400 Respiratory rate 18 /min Halima Davasquezhausen [employer] Work Phone: [facility] 02-17-2022 10:32-0400 SaO2% (BldA) [Mass fraction] 97 % Halima Davasquezhausen [employer] Work Phone: [facility] 02-17-2022 10:32-0400 Systolic blood pressure 108 mm[Hg] Halima Dahlhausen [employer] Work Phone: [facility] 02-08-2022 11:11-0400 Body height 185.[address] George Vaughan Work Phone: [facility] Work Phone: 02-08-2022 11:11-0400 Body mass index (BMI) [Ratio] 27.6 kg/m2 Dr. George Vaughna Work Phone: [facility] Work Phone: 02-08-2022 11:11-0400 Body weight 94.[address] George Vaughan Work Phone: [facility] Work Phone: 02-08-2022 11:11-0400 Diastolic blood pressure 71 mm[Hg] Dr. George Vaughan Work Phone: [facility] Work Phone: 02-08-2022 11:11-0400 Heart rate 65 /min Dr. George Vaughan Work Phone: [facility] Work Phone: 02-08-2022 11:11-0400 Respiratory rate 16 /min Dr. George Vaughan Work Phone: [facility] Work Phone: 02-08-2022 11:11-0400 Systolic blood pressure 125 mm[Hg] Dr. George Vaughan Work Phone: [facility] Work Phone: 01-27-2022 14:55-0400 Diastolic blood pressure 61 mm[Hg] Dr. George Vaughan Work Phone: [facility] Work Phone: 01-27-2022 14:55-0400 Heart rate 61 /min Dr. George Vaughan Work Phone: [facility] Work Phone: 01-27-2022 14:55-0400 SaO2% (BldA) [Mass fraction] 99 % Dr. George Vaughan Work Phone: [facility] Work Phone: 01-27-2022 14:55-0400 Systolic blood pressure 131 mm[Hg] Dr. George Vaughan Work Phone: [facility] Work Phone: 01-27-2022 14:11-0400 Body temperature 98.4 [degF] Dr. George Vaughan Work Phone: [facility] Work Phone: 01-27-2022 14:11-0400 Respiratory rate 20 /min Dr. George Vaughan Work Phone: [facility] Work Phone: 01-27-2022 13:57-0400 Body height 185.[address] George Vaughan Work Phone: [facility] Work Phone: 01-27-2022 13:57-0400 Body mass index (BMI) [Ratio] 27.4 kg/m2 Dr. George Vaughan Work Phone: [facility] Work Phone: 01-27-2022 13:57-0400 Body weight 94.[address] George Vaughan Work Phone: [facility] Work Phone: 12-20-2021 07:58-0400 Body height 185.4 cm Sandra Espitia MD Work Phone: [facility] 12-20-2021 07:58-0400 Body weight 94.85 kg Sandra Espiita MD Work Phone: [facility] 12-20-2021 07:58-0400 Diastolic blood pressure 72 mm[Hg] Sandra Espitia MD Work Phone: [facility] 12-20-2021 07:58-0400 Heart rate 69 /min Sandra Espitia MD Work Phone: [facility] 12-20-2021 07:58-0400 SaO2% (BldA) [Mass fraction] 98 % Sandra Espitia MD Work Phone: [facility] 12-20-2021 07:58-0400 Systolic blood pressure 121 mm[Hg] Sandra Espitia MD Work Phone: [facility] 11-02-2021 15:25-0400 Diastolic blood pressure 88 mm[Hg] George Vaughan MD Work Phone: [facility] 11-02-2021 15:25-0400 Systolic blood pressure 148 mm[Hg] George Vaughan MD Work Phone: [facility] 11-02-2021 15:22-0400 Body weight 93.62 kg George Vaughan MD Work Phone: [facility] 11-02-2021 15:22-0400 Heart rate 64 /min George Vaughan MD Work Phone: [facility] 11-02-2021 15:22-0400 Respiratory rate 16 /min George Vaughan MD Work Phone: [facility] 11-01-2021 12:50-0400 Body mass index (BMI) [Ratio] 27.1 kg/m2 Dr. George Vaughan Work Phone: [facility] Work Phone: 11-01-2021 12:50-0400 Body weight 93.[address] George Vaughan Work Phone: [facility] Work Phone: 11-01-2021 12:50-0400 Diastolic blood pressure 67 mm[Hg] Dr. George Vaughan Work Phone: [facility] Work Phone: 11-01-2021 12:50-0400 Heart rate 69 /min Dr. George Vaughan Work Phone: [facility] Work Phone: 11-01-2021 12:50-0400 Respiratory rate 18 /min Dr. George Vaughan Work Phone: [facility] Work Phone: 11-01-2021 12:50-0400 SaO2% (BldA) [Mass fraction] 99 % Dr. George Vaughan Work Phone: [facility] Work Phone: 11-01-2021 12:50-0400 Systolic blood pressure 129 mm[Hg] Dr. George Vaughan Work Phone: [facility] Work Phone: 09-13-2021 14:44-0400 Body weight 94.89 kg Delia Waterman APRN.CNP Work Phone: [facility] 09-13-2021 14:44-0400 Diastolic blood pressure 58 mm[Hg] Delia Saleemhof [employer]ONT DESK ADMIN Work Phone: [facility] 09-13-2021 14:44-0400 Heart rate 66 /min Delia Saleemhof [employer] DESK ADMIN Work Phone: [facility] 09-13-2021 14:44-0400 Respiratory rate 18 /min Delia Mongehof [employer]ONT DESK ADMIN Work Phone: [facility] 09-13-2021 14:44-0400 SaO2% (BldA) [Mass fraction] 96 % Delia Saleemhof [employer]ONT DESK ADMIN Work Phone: [facility] 09-13-2021 14:44-0400 Systolic blood pressure 128 mm[Hg] Deliacandy Mongehof [employer]ONT DESK ADMIN Work Phone: [facility] 07-27-2016 15:01-0500 BMI (Body Mass Index) 28.53 kg/m2 [facility] Work Phone: 07-27-2016 15:01-0500 BP Diastolic 56 mm[Hg] [facility] Work Phone: 07-27-2016 15:01-0500 BP Systolic 142 mm[Hg] [facility] Work Phone: 07-27-2016 15:01-0500 Height 185.42 cm [facility] Work Phone: 07-27-2016 15:01-0500 Pulse (Heart Rate) 64 /min [facility] Work Phone: 07-27-2016 15:01-0500 Respiratory Rate 12 /min [facility] Work Phone: 07-27-2016 15:01-0500 Weight 98.11 kg [facility] Work Phone: 02-08-2016 11:15-0400 BSA (Body Surface Area) 2.23 m2 [facility] Work Phone: Encounters Encounter Date Encounter Type Care Provider Facility Start: 03-31-2025 ambulatory LANDON STRANGE JR Faci lity:[facility] Start: 02-11-2025 End: 02-11-2025 Patient encounter procedure Luann BAIRD -[facility] Work Phone: Start: 02-11-2025 End: 02-11-2025 ambulatory Luann Mcrae Facility:[facility] Start: 02-07-2025 End: 02-07-2025 ambulatory DANNYFANI NOVOA Facility:[facility] Start: 02-04-2025 End: 02-04-2025 Office outpatient visit 25 minutes George Vaughan MD Work Phone: [facility] [place] Comment on above: Essential hypertensi on, benign (Primary Dx); Need for influenza vaccination; Hyperlipidemia, mixed; Depression, unspecified depression type; Gastroesophageal reflux disease, unspecified whether esophagitis present; Impaired fasting glucose; Coronary artery disease involving [place] coronary artery of [place] heart without angina pectoris; Anemia, unspecified type; Vitamin D deficiency; Herpes zoster without complications; Esophageal stricture; Light-headedness Start: 02-04-2025 End: 02-04-2025 ambulatory GEORGE VAUGHAN Facility:[facility] Start: 01-27-2025 End: 01-27-2025 Emergency department patient visit Dr. George Vaughan MD Work Phone: -Emergency Department Work Phone: Start: 01-10-2025 Non-patient / Non-visit Josue Alvarez nd DO -[facility] Start: 01-10-2025 End: 01-10-2025 Admission to same day surgery center Josue Seals DO -Endoscopy Work Phone: Start: 01-10-2025 End: 01-10-[address] George Vaughan MD Work Phone: -Endoscopy Start: 12-27-2024 End: 12-27-2024 ambulatory GERTRUDE ALLEN Facility:[facility] Start: 12-23-2024 End: 12-23-[address] George Vaughan MD Work Phone: -Radiology [facility] Start: 12-23-2024 End: 12-23-2024 Patient encounter procedure Kristan Huber BEAD WRAPPER-C -Radiology [facility] Work Phone: Start: 12-23-2024 End: 12-23-2024 ambulatory Kristan Huber Facility:[facility] Start: 12-20-2024 End: 01-06-2025 Telephone encounter Landon [...] 12-20-2024 End: 12-20-2024 ambulatory LANDON STRANGE JR Facility:[facility] Start: 12-18-2024 End: 12-18-2024 ambulatory GEORGE VAUGHAN Facility:[facility] Start: 12-18-2024 End: 12-18-2024 Patient encounter procedure Gertrude Allen APRN.CNP Work Phone: General Surgery Comment on above: Weak urinary stream (Primary Dx); Screening for genitourinary condition; Umbilical hernia without obstruction and without gangrene Start: 12-18-2024 End: 12-18-2024 Telephone encounter Sheldon Slater MD Work Phone: General Surgery Start: 12-18-2024 End: 12-18-2024 ambulatory GERTRUDE ALLEN Facility:[facility] Start: 12-13-2024 End: 12-13-2024 ambulatory SHELDON SLATER Facility:[facility] Start: 12-06-2024 End: 12-06-2024 Admission to same day surgery center Josue Seals DO -Endoscopy Work Phone: Start: 12-06-2024 End: 12-06-[address] George Vaughan MD Work Phone: -Endoscopy Start: 12-02-2024 End: 12-02-2024 Patient encounter procedure Kristan NICHOLSON -[facility] Work Phone: Start: 12-02-2024 End: 12-02-[address] George Vaughan MD Work Phone: -[facility] Start: 11-29-2024 End: 12-02-2024 Telephone encounter Sindy Denise APRN.FRONT DESK ADMIN Work Phone: Pre Anesthesia Start: 11-29-2024 End: 11-29-2024 [facility] Work [facility] Start: 11-29-2024 End: 11-29-2024 Anesthesia consultation [facility] Work Phone: Pre Anesthesia Comment on above: Pre-operative examin ation (Primary Dx); Coronary artery disease involving [place] coronary artery of [place] heart without angina pectoris; Essential hypertension, benign; [...] Start: 11-29-2024 End: 11-29-2024 Preprocedural examination done [place] [id number] Work Phone: [facility] Start: 11-29-2024 End: 11-29-2024 ambulatory SHELDON SLATER Facility:[facility] Start: 11-29-2024 Encounter for other preprocedural examination DANNY NOVOA [facility] Start: 11-29-2024 End: 11-29-2024 Patient encounter procedure Harika NICHOLSON -[facility] Work Phone: Start: 11-29-2024 End: 11-29-2024 Patient encounter status Harika NICHOLSON [facility] Start: 11-29-2024 End: 11-29-[address] George Vaughan MD Work Phone: -[facility] Start: 11-21-2024 End: 11-21-2024 Telephone encounter Argenis Jain RN Pre Anesthesia Comment on above: Preparations For Roselyn shai (Preoperative Plavix instructions) Start: 11-20-2024 End: 11-26-2024 Admission to same day surgery center Agrenis Jain RN Pre Anesthesia Comment on above: [...] (Primary Dx) Start: 11-19-2024 End: 11-19-2024 ambulatory SHELDON SLATER Facility:[facility] Start: 11-13-2024 End: 11-13-2024 Emergency department patient [...] Start: 08-23-2024 End: 08-23-2024 ambulatory GEORGE VAUGHAN Facility:[facility] Start: 08-21-2024 End: 08-21-2024 Telephone encounter Jessy Weldon PA-C Work Phone: Neurology Start: 08-21-2024 End: 08-21-2024 Patient encounter procedure Jessy Weldon PA-C Work Phone: Neurology Comment on above: Malaise and fatigue (Primary Dx); Lightheaded; Recurrent falls; Orthostatic hypotension; Weakness of both lower extremities; History of stroke; Spinal stenosis of cervical region Start: 08-21-2024 End: 08-21-2024 ambulatory JESSY COLUMBUSEUNICE Facility:[facility] Start: 07-29-2024 Non-patient / Non-visit Dr. Tiara Andrews MD -[facility] Start: 07-29-2024 Non-patient / Non-visit Dr. Nawaf cox DO -[facility] Work Phone: Start: 07-28-2024 Non-patient / Non-visit Dr. Tiara Brown MD -[facility] Work Phone: Start: 07-28-2024 End: 07-29-2024 ambulatory Nawaf Leblanc Facility:[facility] Start: 07-28-2024 End: 07-29-2024 Evaluation and management of inpatient Dr. Nini Brown MD -Progressive Care Unit Work Phone: Start: 07-28-2024 End: 07-29-[address] George Vaughan MD Work Phone: [facility] Work Phone: Start: 07-23-2024 End: 07-23-2024 ambulatory GEORGE VAUGHAN Facility:[facility] Start: 07-23-2024 End: 07-23-2024 Patient encounter procedure George Vaughan MD Work Phone: [facility] Comment on above: Essential hypertensi on, benign (Primary Dx); Hyperlipidemia, mixed; Impaired fasting glucose; Coronary artery disease involving [place] heart without angina pectoris, unspecified vessel or lesion type; Depression, unspecified depression type; Tremor; Thoracic back pain, unspecified back pain laterality, unspecified chronicity; Cervicalgia; Cervical spondylosis; Lumbar radiculopathy; Myelomalacia of cervical cord (HCC); Generalized weakness; Balance disorder Start: 05-27-2024 End: 05-27-2024 Refill George Vaughan MD Work Phone: [facility] Comment on above: Refill Request Start: 05-16-2024 End: 05-16-2024 Patient encounter procedure Ama Brian APRN.FRONT DESK ADMIN Work Phone: [facility] Comment on above: Abrasion of left ear canal, initial encounter (Primary Dx) Start: 05-16-2024 End: 05-16-2024 ambulatory GEORGE VAUGHAN Facility:[facility] Start: 05-06-2024 End: 05-06-2024 ambulatory Jessy Weldon PA-C Work Phone: Neurology Comment on above: [place] Start: 05-01-2024 End: 05-01-2024 Telephone encounter Jessy Weldon PA-C Work Phone: Neurology Start: 04-30-2024 End: 04-30-2024 Patient encounter procedure Jessy Weldon PA-C Work Phone: Neurology Comment on above: Malaise and fatigue (Primary Dx); Lightheaded; Recurrent falls; Orthostatic hypotension; Weakness of both lower extremities; Low vitamin D level; Vitamin D deficiency, unspecified Start: 04-30-2024 End: 04-30-2024 ambulatory [facility] Facility:[facility] Start: 03-29-2024 End: 03-29-2024 Telephone encounter Halima Harvey APRN.FRONT DESK ADMIN Work Phone: Neurology Comment on above: Request to hold anti coagulant Start: 02-28-2024 End: 02-28-2024 Refill George Vaughan MD Work Phone: [facility] Comment on above: Refill Request Start: 02-21-2024 End: 02-23-2024 ambulatory George Vaughan MD Work Phone: [facility] Comment on above: Permanent handicap p neida Start: 01-26-2024 End: 01-26-2024 Patient encounter procedure Landon Strange MD Work Phone: Neurology Comment on above: Lightheaded (Primary Dx); Orthostatic hypotension; Recurrent falls; Weakness of both lower extremities; Myelomalacia of cervical cord (HCC); Spinal stenosis of cervical region; Spinal stenosis of lumbar region, unspecified whether neurogenic 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 present; History of stroke; Headaches Start: 12-30-2023 End: 12-30-2023 Patient encounter procedure George Vaughan MD Work Phone: [facility] Comment on above: Essential hypertensi on, benign (Primary Dx); Hyperlipidemia, mixed; Impaired fasting glucose; Actinic keratosis; Tremor Start: 12-05-2023 Refill Pavel Parks MD Work Phone: Orthopaedics Comment on above: Refill Request Start: 11-28-2023 Refill [facility]clay MD [facility] Comment on above: Refill Request Start: 10-18-2023 [...] Comment on above: Orders (Received fax from [facility], [facility] for request to hold clopidogrel for procedure on 10/13/2023. Given to provider for review. / /MARY 02/28/2023//) Start: 09-19-2023 End: 09-19-2023 Subsequent hospital visit by physician [facility] Work Phone: Radiology Comment on above: Closed nondisplaced fracture of fifth metatarsal bone of left foot, initial encounter [S92.355A] Start: 08-30-2023 Refill George barclay MD Work Phone: [facility] Comment on above: Refill Request Start: 08-25-2023 Orders Only Omar Deisy kline Work Phone: Podiatry Comment on above: Closed nondisplaced fracture of fifth metatarsal bone of left foot, initial encounter (Primary Dx) Start: 08-21-2023 End: 08-21-2023 Subsequent hospital visit by physician [facility] [place] [facility] Work Phone: Radiology Comment on above: Closed nondisplaced fracture of fifth metatarsal bone of left foot, initial encounter [Y32.355A] Start: 08-21-2023 End: 08-21-2023 Patient encounter procedure Omar Thompsoncarlo Work Phone: Podiatry Comment on above: Closed nondisplaced fracture of fifth metatarsal bone of left foot, initial encounter (Primary Dx); Pain of left calf Start: 08-15-2023 Telephone encounter George herron MD Work Phone: [facility] Comment on above: Refill Request Start: 08-14-2023 Telephone encounter Omar Rafa simmons Work Phone: Podiatry Comment on above: Appointment Start: 08-11-2023 End: 08-11-2023 Subsequent hospital visit by physician [facility] Work Phone: Radiology Comment on above: Foot pain, left [M79 .672] Start: 08-11-2023 End: 08-11-2023 Office outpatient visit 15 minutes Zander Chavez APRN.CNP Work Phone: [facility] Comment on above: Closed nondisplaced fracture of fifth metatarsal bone of left foot, initial encounter (Primary Dx); Foot pain, left; Pain of toe of left foot Start: 08-11-2023 End: 08-11-[address] George Vaughan Work Phone: [facility] Work Phone: Start: 08-11-2023 End: 08-11-[address] [facility] Work Phone: Start: 06-22-2023 End: 06-22-[address] George Vaughan Work Phone: [facility], [facility] Work Phone: Start: 05-09-2023 Telephone encounter George herron MD Work Phone: [facility] Start: 04-20-2023 Non-patient / Non-visit Dr. Leyla Vaughan Work Phone: [facility] Work Phone: Start: 04-18-2023 Non-patient / Non-visit Dr. Leyla Vaughan Work Phone: [facility] Work Phone: Start: 04-17-2023 Non-patient / Non-visit Dr. Leyla Vaughan Work Phone: [facility] Work Phone: Start: 04-16-2023 Non-patient / Non-visit Dr. Leyla Vaughan Work Phone: [facility] Work Phone: Start: 04-16-2023 End: 04-18-2023 Evaluation and management of inpatient [facility]-Progressive Care Unit Work Phone: Start: 04-16-2023 observation encounter [facility] Work Phone: Start: 03-13-2023 End: 03-13-2023 Emergency department patient visit Dr. George Vaughan Work Phone: [facility]-Emergency Department Work Phone: Start: 02-28-2023 Refill Halima Alejo usemishel [employer]K ADMIN Work Phone: Neurology Comment on above: Med Change Request Start: 02-26-2023 Telephone encounter Sveta Burgess ggs [employer]FRONT DESK ADMIN Work Phone: [facility] Comment on above: Results Start: 02-25-2023 End: 02-25-2023 Patient encounter procedure Charlotte Older [employer]FRONT DESK ADMIN Work Phone: [facility] Comment on above: Urinary frequency (P rimary Dx); Dysuria Start: 02-24-2023 End: 02-24-2023 Emergency department patient visit Dr. George Vaughan Work Phone: [facility]-Emergency Department Work Phone: Start: 02-21-2023 Refill George barclay MD Work Phone: [facility] Comment on above: Refill Request Start: 02-09-2023 Telephone encounter Jessy ramsey PA-C Work Phone: Neurology Comment on above: Received Outside Med ical Records ([facility]-spine records Dr. Maldonado) Start: 01-24-2023 Telephone encounter Pavel triplett MD Work Phone: Orthopaedics Comment on above: Dental office questi on Start: 01-12-2023 Telephone encounter George herron MD Work Phone: [facility] Comment on above: Forms (Medical clear ance form-[facility]) Start: 12-29-2022 End: 12-29-2022 Patient encounter procedure Halima Harvey [employer]FRONT DESK ADMIN Work Phone: Neurology Comment on above: Headaches [...] encounter procedure Dr. George Vaughan Work Phone: [facility] Work Phone: Start: 11-09-2022 End: 11-09-2022 ambulatory [facility] Work Phone: Start: 11-09-2022 End: 11-09-2022 Patient encounter procedure [facility] Start: 10-11-2022 End: 10-11-2022 ambulatory [facility] Work Phone: Start: 10-11-2022 End: 10-11-2022 Patient encounter procedure [facility]Laboratory Start: 08-15-2022 Telephone encounter Halima Goff APRN.CNP Work Phone: Neurology Comment on above: Medication Problem ( Plavix hold for procedure) Start: 08-08-2022 Refill George barclay MD Work Phone: [facility] [place] Comment on above: Refill Request Start: 06-07-2022 Non-patient / Non-visit Dr. Leyla Vaughan Work Phone: [facility] Start: 06-07-2022 End: 06-07-[address] George Vaughan Work Phone: [facility] Work Phone: Start: 06-07-2022 End: 06-07-[address] George Vaughan Work Phone: [facility]Cardiovascular Services Start: 05-26-2022 End: 05-26-[address] George Vaughan Work Phone: [facility] Work Phone: Start: 05-26-2022 End: 05-26-[address] George Vaughan Work Phone: [facility] Start: 05-18-2022 End: 05-18-[address] George Vaughan Work Phone: [facility]Laboratory Start: 05-04-2022 Telephone encounter Halima Goff APRN.FRONT DESK ADMIN Work Phone: Neurology Comment on above: Medication Problem Start: 05-04-2022 End: 05-04-2022 Patient encounter procedure George Vaughan MD Work Phone: [facility] Comment on above: Depression, unspecif ied depression type (Primary Dx); Essential hypertension, benign; Hyperlipidemia, mixed; Coronary artery disease involving [place] coronary artery of [place] heart without angina pectoris; Gait instability; Impaired fasting glucose Start: 04-29-2022 Refill Halima gaspar APRN.FRONT DESK ADMIN Work Phone: Neurology Comment on above: Refill Request Start: 03-14-2022 Refill George barclay MD Work Phone: [facility] Comment on above: Refill Request Start: 03-04-2022 Telephone encounter Halima Goff APRN.FRONT DESK ADMIN Work Phone: Neurology Comment on above: Results Start: 02-28-2022 End: 02-28-2022 Subsequent hospital visit by physician [facility] (I-Stat/1.5t) Work Phone: Radiology Comment on above: Transient cerebral i schemia, unspecified type [G45.9] Start: 02-22-2022 Non-patient / Non-visit Dr. Leyla Vaughan Work Phone: [facility] Start: 02-22-2022 End: 02-22-[address] George Vaughan Work Phone: [facility] Work Phone: Start: 02-22-2022 End: 02-22-[address] George Vaughan Work Phone: [facility] Start: 02-17-2022 End: 02-17-2022 Patient encounter procedure Halima Harvey APRN.FRONT DESK ADMIN Work Phone: Neurology Comment on above: Headaches (Primary D x); Frequent falls; Spinal stenosis of cervical region; Spinal stenosis of lumbar region, unspecified whether neurogenic 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 present; Lightheadedness; Myelomalacia of cervical cord (HCC); Tremor of right hand; Cerebrovascular accident (CVA), unspecified mechanism (HCC) Start: 02-08-2022 End: 02-08-[address] George Vaughan Work Phone: [facility] Start: 02-01-2022 Telephone encounter Halima Goff APRN.FRONT DESK ADMIN Work Phone: Neurology Comment on above: Results Start: 01-27-2022 End: 01-27-2022 Emergency department patient visit Dr. George Vaughan Work Phone: [facility]-Emergency Department Start: 01-25-2022 End: 01-25-2022 Subsequent hospital visit by physician [facility] (I-Stat) Work Phone: Cat Scan Comment on above: Cerebral infarction, unspecified mechanism (HCC) [I63.9] Start: 01-20-2022 Telephone encounter Halima Goff APRN.FRONT DESK ADMIN Work Phone: Neurology Comment on above: Lab Orders Start: 01-20-2022 End: 01-20-2022 ambulatory Delia Waterman APRN.CNP Work Phone: [facility] Comment on above: COVID-19 (Primary Dx ) Start: 01-20-2022 End: 01-20-2022 Telemedicine consultation with patient Delia Tannhof [employer]FRONT DESK ADMIN Work Phone: [facility] Start: 12-20-2021 End: 12-20-2021 Patient encounter procedure Sandra Espitia MD Work Phone: Neurology Comment on above: Essential tremor (Pr imary Dx) Start: 12-15-2021 Refill Halima gaspar APRN.FRONT DESK ADMIN Work Phone: Neurology Comment on above: Refill Request Start: 12-07-2021 Telephone encounter Halima Goff APRN.FRONT DESK ADMIN Work Phone: Neurology Comment on above: Results Start: 12-01-2021 End: 12-01-2021 Subsequent hospital visit by physician [facility] (I-Stat/1.5t) Work Phone: Radiology Comment on above: Spinal stenosis of c ervical region [M48.02] Frequent falls [R29. 6] Start: 11-26-2021 Telephone encounter Halima Goff APRN.FRONT DESK ADMIN Work Phone: Neurology Comment on above: Patient Request Start: 11-02-2021 End: 11-02-2021 Patient encounter procedure George Vaughan MD Work Phone: [facility] Comment on above: Essential hypertensi on, [...] encounter procedure Dr. George Vaughan Work Phone: [facility] Start: 09-13-2021 End: 09-13-2021 Patient encounter procedure Delia Waterman APRN.FRONT DESK ADMIN Work Phone: [facility] Comment on above: Frequent falls (Prim harris Dx); Tremor of right hand; Muscle tension pain; Dizziness Start: 10-29-2020 End: 10-29-2020 Subsequent hospital visit by physician [facility] Work Phone: Radiology Comment on above: Cough [R05] Start: 10-20-2020 Refill George barclay MD Work Phone: [facility] Comment on above: Opened In Error Start: 07-04-[address] George Vaughan Work Phone: [facility] Procedures Date Procedure Procedure Detail Performing Clinician [...] foot complete minimum 3 views Shreya Chavez [employer]FRONT DESK ADMIN Work Phone: Start: 08-11-2023 Plain x-ray of [...] brain stem w/o contrast material Halima Dahlhausen [employer]FRONT DESK ADMIN Work Phone: Start: 01-25-2022 Ct angiography head w/contrast/noncontrast Halima Dahlhausen [employer]FRONT DESK ADMIN Work Phone: Start: 01-25-2022 Ct angiography neck w/contrast/noncontrast Halima Dahlelena [employer]FRONT DESK ADMIN Work Phone: Start: 12-01-2021 Mri spinal canal cervical w/o contrast matrl Halima Dahlelena [employer]FRONT DESK ADMIN Work Phone: Start: 10-29-2020 Radiologic exam chest [...] 07-16-2015 End: 07-27-2015 *Hepatic Function Panel Flip Krmaer MD Start: 07-16-2015 End: 07-27-2015 Lipid panel [...] DTaP,Tdap,Td Vaccine (3 - Td or Tdap) [facility] Start: 01-23-2029 Urine microalbumin profile [facility] Start: 08-24-2027 Diabetes Screening Diabetes Screenin g [facility] Start: 08-23-2025 Hepatitis B surface antibody level LDL Cholesterol [facility] Start: 04-25-2025 DIABETES SCREEN DIABETES SCREEN [facility] Start: 03-31-2025 End: 03-31-2025 Patient encounter procedure 03/31/2025 3:40 PM EST Office Visit Neurology [address] [id number] Landon Strange Jr., MD [address] [place] [address] 3-4 month follow up Neurology Comment on above: 3-4 month follow up Start: 03-06-2025 End: 06-05-2025 25-hydroxyvitamin D3 [Mass/volume] in Serum or Plasma VITAMIN D 25 HYDROXY Lab Routine Vitamin D deficiency Expected: 03/06/2025 (Approximate), Expires: 06/05/2025 [facility] Comment on above: Expected: 03/06/2025 (Approximate), Expires: 06/05/2025 Start: 03-06-2025 End: 06-05-2025 CBC panel - Blood by Automated count COMPLETE BLOOD COUNT Lab Routine Essential hypertension, benign Hyperlipidemia, mixed Impaired fasting glucose Expected: 03/06/2025 (Approximate), Expires: 06/05/2025 [facility] [facility] Comment on above: Expected: 03/06/2025 (Approximate), Expires: 06/05/2025 Start: 03-06-2025 End: 06-05-2025 Comprehensive metabolic 2000 panel - Serum or Plasma COMPREHENSIVE METABOLIC PANEL Lab Routine Essential hypertension, benign Impaired fasting glucose Expected: 03/06/2025 (Approximate), Expires: 06/05/2025 [facility] Work Phone: Comment on above: Expected: 03/06/2025 (Approximate), Expires: 06/05/2025 Start: 03-06-2025 End: 06-05-2025 Hemoglobin A1c in Blood HEMOGLOBIN A1C Lab Routine Essential hypertension, benign Hyperlipidemia, mixed Impaired fasting glucose Expected: 03/06/2025 (Approximate), Expires: 06/05/2025 [facility] Comment on above: Expected: 03/06/2025 (Approximate), Expires: 06/05/2025 Start: 03-06-2025 End: 06-05-2025 Lipid 1996 panel - Serum or Plasma LIPID PANEL, FASTING Lab Routine Essential hypertension, benign Hyperlipidemia, mixed Impaired fasting glucose Expected: 03/06/2025 (Approximate), Expires: 06/05/2025 [facility] Comment on above: Expected: 03/06/2025 (Approximate), Expires: 06/05/2025 Start: 02-22-2025 Hemoglobin A1c measurement HbA1C [facility] Start: 02-07-2025 End: 02-07-2025 Patient encounter procedure 02/07/2025 10:00 AM EDT Office Visit Neurology [address] [place] [address] Danny Novoa MD [address] [place] [address] Orthostatic hypotension [I95.1] Neurology Comment on above: Orthostatic hypotens ion [I95.1] Start: 02-04-2025 End: 02-04-2025 Patient encounter procedure 02/04/2025 9:20 AM EDT Office Visit Family Medicine [facility] [address] [place] [address] George Vaughan MD [address] [place] [address] 6 mo f/u [facility] [place] Comment on above: 6 mo f/u Start: 01-27-2025 [facility] Start: 01-23-2025 RSV Vaccine (1 - 1-d ose 75+ series) RSV Vaccine (1 - 1-dose 75+ series) [facility] Comment on above: Postponed from 07/17 (Insurance Coverage) Start: 01-23-2025 Shingrix Vaccine (2 of 3) Shook grix Vaccine (2 of 3) [facility] Comment on above: Postponed from 01/06 (Insurance Coverage) Start: 01-20-2025 Influenza vaccination Influenza Vacc ine (#1) [facility] Start: 01-10-2025 Egd insert guide wir e dilator passage esophagus EGD GUIDE WIRE INSERTION [facility] Start: 01-10-2025 Egd transoral biopsy single/multiple EGD BIOPSY SINGLE/MULTIPLE [facility] Start: 01-10-2025 Patient discharge [facility] Start: 12-27-2024 End: 12-27-2024 Patient encounter procedure 12/27/2024 11:00 AM EDT Office Visit General Surgery [address] [place] [address] Gertrude Allen APRN.FRONT DESK ADMIN [address] [place] [address] Umbilical hernia 12-13-2024 Post op General Surgery Comment on above: Umbilical hernia Post op Start: 12-20-2024 End: 12-20-2024 Patient encounter procedure 12/20/2024 10:40 AM EDT Office Visit Neurology [address] [place], [place] [id number] Landon Strange Jr., MD [address] [place] [address] Follow up Neurology Comment on above: Follow up Start: 12-18-2024 End: 03-19-2025 Bacteria identified in Urine by Culture [facility] Work Phone: Comment on above: Expected: 12/18/2024 , Expires: 03/19/2025 Start: 12-13-2024 End: 12-13-2024 Admission to same day surgery center 12/13/2024 7:30 AM EDT - 12/13/2024 8:46 AM EDT Surgery [facility] [address] [place] [address] Sheldon Slater MD [address] [place] [address] HERNIORRHAPHY UMBILICAL REDUCIBLE 3cm-10cm [facility] Comment on above: HERNIORRHAPHY UMBILI ADELAIDA REDUCIBLE 3cm-10cm Start: 12-13-2024 End: 12-13-2024 HERNIORRHAPHY UMBILICAL REDUCIBLE 3cm-10cm HERNIORRHAPHY UMBILICAL REDUCIBLE 3cm-10cm Umbilical hernia without obstruction and without gangrene 12/13/2024 7:30 AM EDT ME OR Start: 12-13-2024 Subsequent hospital visit by physician 12/13/2024 7:30 AM EDT Hospital Encounter [facility] Surgery [address] [place] [address] Sheldon Slater MD [address] [facility] [place] [address] Umbilical hernia without obstruction and without gangrene [K42.9] [facility] Comment on above: Umbilical hernia wit hout obstruction and without gangrene [K42.9] Start: 12-06-2024 Esophageal manometry ESOPHAGUS MOTIL ITY STUDY [facility] Start: 12-06-2024 Esophageal motility study w/interp&rpt ESOPHAGUS MOTILITY STUDY [facility] Start: 12-06-2024 Patient discharge [facility] Start: 11-29-2024 End: 11-29-2024 Anesthesia consultation 11/29/2024 10:40 AM EDT PAT Pre Anesthesia [address] [place] [address] 1, Pacc [address] [address] IN PERSON PER RN HERNIORRHAPHY UMBILICAL REDUCIBLE 3cm-10cm [[id number]] - N/A 12/13 Pre Anesthesia Comment on above: IN PERSON PER RN HER NIORRHAPHY UMBILICAL REDUCIBLE 3cm-10cm [[id number]] - N/A 12/13 Start: 11-29-2024 End: 11-29-2024 Evaluation of diagnostic study results [facility] Start: 11-26-2024 Hepatitis B surface antibody level LDL Cholesterol [facility] Start: 11-13-2024 [facility] Start: 11-13-2024 [facility] Start: 10-21-2024 DIABETES SCREEN DIABETES SCREEN [facility] Start: 09-12-2024 End: 09-12-2024 Patient encounter procedure 09/12/2024 10:00 AM EDT Office Visit Neurology [address] [place] [address] Minal Harden APRN.FRONT DESK ADMIN [address] [facility] [place] [address] Orthostatic hypotension [I95.1] Neurology Comment on above: Orthostatic hypotens ion [I95.1] Start: 08-08-2024 Covid-19 Vaccine () Covid-19 Vaccine () [facility] Start: 07-30-2024 End: 07-30-2024 Patient encounter procedure 07/30/2024 12:45 PM EDT Office Visit Neurology [address] [place] [address] Jessy Weldon PA-C [address] [place] [address] 3mth follow up/ mary 01/26/24 Neurology Comment on above: 3mth follow up/ mary 01/26/24 Start: 07-29-2024 [facility] Start: 07-29-2024 End: 10-28-2024 25-hydroxyvitamin D3 [Mass/volume] in Serum or Plasma VITAMIN D 25 HYDROXY Lab Routine Low vitamin D level Vitamin D deficiency, unspecified Expected: 07/29/2024, Expires: 10/28/2024 [facility] Comment on above: Expected: 07/29/2024 , Expires: 10/28/2024 Start: 07-29-2024 NM Heart Views W str ess and W radionuclide IV [facility] Start: 07-29-2024 Nuclear Stress Test - Chemical Nuclear Stress Test - Chemical [facility] Start: 07-28-2024 Assessment of risk o f venous thromboembolism [facility] Start: 07-28-2024 Insertion of cathete r into peripheral vein [facility] Start: 07-28-2024 Measuring intake and output [facility] Start: 07-28-2024 Providing care accor ding to standard [facility] Start: 07-28-2024 Provision of activit y privileges [facility] Start: 07-28-2024 Referral to occupati onal therapist [facility] Start: 07-28-2024 Referral to service [facility] Start: 07-28-2024 [facility] Start: 07-28-2024 Verification routine [facility] Start: 07-28-2024 Admission procedure [facility] Start: 07-28-2024 [facility] Start: 07-28-2024 [facility] Start: 07-23-2024 End: 10-22-2024 CBC panel - Blood by Automated count COMPLETE BLOOD COUNT Lab Routine Essential hypertension, benign Expected: 07/23/2024 (Approximate), Expires: 10/22/2024 [facility] Comment on above: Expected: 07/23/2024 (Approximate), Expires: 10/22/2024 Start: 07-23-2024 End: 10-22-2024 Comprehensive metabolic 2000 panel - Serum or Plasma COMPREHENSIVE METABOLIC PANEL Lab Routine Essential hypertension, benign Hyperlipidemia, mixed Impaired fasting glucose Expected: 07/23/2024 (Approximate), Expires: 10/22/2024 [facility] Work Phone: Comment on above: Expected: 07/23/2024 (Approximate), Expires: 10/22/2024 Start: 07-23-2024 End: 10-22-2024 Hemoglobin A1c in Blood HEMOGLOBIN A1C Lab Routine Impaired fasting glucose Expected: 07/23/2024 (Approximate), Expires: 10/22/2024 [facility] Comment on above: Expected: 07/23/2024 (Approximate), Expires: 10/22/2024 Start: 07-23-2024 End: 10-22-2024 Lipid 1996 panel - Serum or Plasma LIPID PANEL BASIC Lab Routine Essential hypertension, benign Hyperlipidemia, mixed Impaired fasting glucose Expected: 07/23/2024 (Approximate), Expires: 10/22/2024 [facility] Comment on above: Expected: 07/23/2024 (Approximate), Expires: 10/22/2024 Start: 07-09-2024 End: 07-09-2024 Patient encounter procedure 07/09/2024 9:20 AM EST Office Visit Family Deirdre Corona [address] [place], [place] [id number] George Vaughan MD [address] [place] [address] 6 month follow up [facility] Comment on above: 6 month follow up Start: 07-01-2024 End: 09-30-2024 CBC panel - Blood by Automated count COMPLETE BLOOD COUNT Lab Routine Essential hypertension, benign Expected: 07/01/2024 (Approximate), Expires: 09/30/2024 [facility] Comment on above: Expected: 07/01/2024 (Approximate), Expires: 09/30/2024 Start: 07-01-2024 End: 09-30-2024 Comprehensive metabolic 2000 panel - Serum or Plasma COMPREHENSIVE METABOLIC PANEL Lab Routine Hyperlipidemia, mixed Impaired fasting glucose Expected: 07/01/2024 (Approximate), Expires: 09/30/2024 [facility] Work Phone: Comment on above: Expected: 07/01/2024 (Approximate), Expires: 09/30/2024 Start: 07-01-2024 End: 09-30-2024 Hemoglobin A1c in Blood HEMOGLOBIN A1C Lab Routine Impaired fasting glucose Expected: 07/01/2024 (Approximate), Expires: 09/30/2024 [facility] Comment on above: Expected: 07/01/2024 (Approximate), Expires: 09/30/2024 Start: 07-01-2024 End: 09-30-2024 Lipid 1996 panel - Serum or Plasma LIPID PANEL BASIC Lab Routine Hyperlipidemia, mixed Impaired fasting glucose Expected: 07/01/2024 (Approximate), Expires: 09/30/2024 [facility] Comment on above: Expected: 07/01/2024 (Approximate), Expires: 09/30/2024 Start: 05-29-2024 Hemoglobin A1c measurement HbA1C [facility] Start: 05-22-2024 Advance Directive Discussion Advance Directive Discussion [facility] Start: 04-30-2024 End: 07-30-2024 Cobalamin (Vitamin B12) [Mass/volume] in Serum or Plasma VITAMIN B12 Lab Routine Malaise and fatigue Expected: 04/30/2024, Expires: 07/30/2024 [facility] Work Phone: Comment on above: Expected: 04/30/2024 , Expires: 07/30/2024 Start: 04-30-2024 End: 07-30-2024 Folate [Mass/volume] in Serum or Plasma FOLATE, SERUM Lab Routine Malaise and fatigue Expected: 04/30/2024, Expires: 07/30/2024 [facility] Comment on above: Expected: 04/30/2024 , Expires: 07/30/2024 Start: 04-30-2024 End: 04-30-2024 Patient encounter procedure 04/30/2024 12:45 PM EST Office Visit Neurology [address] [place] [address] Jessy Weldon PA-C [address] [place] [address] 3mth follow up/ mary 01/26/24 Neurology Comment on above: 3mth follow up/ mary 01/26/24 Start: 04-25-2024 Hepatitis B surface antibody level LDL Cholesterol [facility] Start: 03-15-2024 DIABETES SCREEN DIABETES SCREEN [facility] Start: 01-26-2024 End: 01-26-2024 Patient encounter procedure 01/26/2024 10:40 AM EDT Office Visit Neurology [address] [place] [address] Landon Strange Jr., MD [address] [facility] [address] [place] [address] [facility] Comment on above: [facility] Start: 01-21-2024 Covid-19 Vaccine ( season) Covid-19 Vaccine () [facility] Start: 01-21-2024 Covid-19 Vaccine () Covid-19 Vaccine () [facility] Start: 01-21-2024 Influenza vaccination Influenza Vacc ine (#1) [facility] Start: 12-30-2023 End: 12-30-2023 Patient encounter procedure 12/30/2023 10:20 AM EDT Office Visit Family Medicine [facility] [address] [place] [address] George Vaughan MD [address] [place], [place] [id number] 6 month follow up [facility] Comment on above: 6 month follow up Start: 12-01-2023 End: 12-01-2023 Patient encounter procedure 12/01/2023 11:20 AM EDT Office Visit Family Medicine [facility] [address] [place] [address] George Vaughan MD [address] [place] [address] 6 month follow up [facility] Comment on above: 6 month follow up Start: 10-26-2023 Hepatitis B surface antibody level LDL CHOLESTEROL [facility] Start: 10-25-2023 Hemoglobin A1c measurement HbA1C [facility] Start: 10-18-2023 End: 10-18-2023 Patient encounter procedure 10/18/2023 11:15 AM EDT Office Visit Neurology [address] [place] [address] Jessy Weldon PA-C [address] [place] [address] Follow up 5 months, [place] Neurology Comment on above: Follow up 5 months, [place] Start: 08-10-2023 Covid-19 Vaccine () Covid-19 Vaccine () [facility] Start: 05-22-2023 Advance Directive Discussion Advance Directive Discussion [facility] Start: 05-04-2023 ANNUAL PCP TEAM MARINE TECHNICIAN HECTOR DISEASE VISIT ANNUAL PCP TEAM CHRONIC DISEASE VISIT [facility] Start: 04-26-2023 Hemoglobin A1c/Hemoglobin.total in Blood HBA1C [facility] Start: 04-25-2023 Hepatitis B surface antibody level LDL CHOLESTEROL [facility] Start: 04-25-2023 SERUM CREATININE SERUM CREATININE Cl [facility] Start: 04-25-2023 Blood chemistry [facility] Start: 04-24-2023 Blood chemistry [facility] Start: 04-23-2023 Blood chemistry [facility] Start: 04-22-2023 Blood chemistry [facility] Start: 04-21-2023 Blood chemistry [facility] Start: 04-20-2023 Blood chemistry [facility] Start: 04-19-2023 Blood chemistry [facility] Start: 04-18-2023 Patient discharge [facility] Start: 04-18-2023 [facility] Start: 04-18-2023 Care planning and pr oblem solving actions [facility] Start: 04-16-2023 Admission procedure [facility] Start: 04-16-2023 Ambulation without limitation [facility] Start: 04-16-2023 Assessment of risk o f venous thromboembolism [facility] Start: 04-16-2023 Insertion of cathete r into peripheral vein [facility] Start: 04-16-2023 Measuring intake and output [facility] Start: 04-16-2023 Providing care accor ding to standard [facility] Start: 04-16-2023 End: 04-16-2023 Referral to service [facility] Start: 04-16-2023 [facility] Start: 04-16-2023 End: 04-16-2023 Referral to occupational therapist [facility] Start: 04-16-2023 Following clinical pathway protocol [facility] Start: 04-16-2023 Care planning and pr oblem solving actions [facility] Start: 04-16-2023 Hospital admission, emergency, from emergency room, medical nature [facility] Start: 04-16-2023 Admission procedure [facility] Start: 04-16-2023 [facility] Start: 03-13-2023 [facility] Start: 03-13-2023 [facility] Start: 02-24-2023 [facility] Start: 02-17-2023 BP CONTROLLED (<130/80) BP CONTROLLE D (<130/80) [facility] Start: 01-25-2023 SERUM CREATININE SERUM CREATININE Cl [facility] Start: 01-20-2023 ANNUAL PCP TEAM MARINE TECHNICIAN HECTOR DISEASE VISIT ANNUAL PCP TEAM CHRONIC DISEASE VISIT [facility] Start: 01-20-2023 Covid-19 Vaccine ( season) Covid-19 Vaccine () [facility] Start: 01-20-2023 Influenza vaccination [facility] Start: 12-20-2022 BP CONTROLLED (<130/80) BP CONTROLLE D (<130/80) [facility] Start: 11-11-2022 BP CONTROLLED (<130/80) BP CONTROLLE D (<130/80) [facility] Start: 11-02-2022 ANNUAL PCP TEAM MARINE TECHNICIAN HECTOR DISEASE VISIT ANNUAL PCP TEAM CHRONIC DISEASE VISIT [facility] Start: 11-02-2022 End: 01-02-2023 CBC W Auto Differential panel - Blood CBC + DIFF Lab Routine Essential hypertension, benign Coronary artery disease involving [place] coronary artery of [place] heart without angina pectoris Expected: 11/02/2022 (Approximate), Expires: 01/02/2023 [facility] Work Phone: Comment on above: Expected: 11/02/2022 (Approximate), Expires: 01/02/2023 Start: 11-02-2022 End: 01-02-2023 Comprehensive metabolic 2000 panel - Serum or Plasma COMP METABOLIC PANEL Lab Routine Essential hypertension, benign Hyperlipidemia, mixed Impaired fasting glucose Expected: 11/02/2022 (Approximate), Expires: 01/02/2023 [facility] Work Phone: Comment on above: Expected: 11/02/2022 (Approximate), Expires: 01/02/2023 Start: 11-02-2022 End: 01-02-2023 Hemoglobin A1c in Blood HGB A1C Lab Routine Impaired fasting glucose Expected: 11/02/2022 (Approximate), Expires: 01/02/2023 [facility] Work Phone: Comment on above: Expected: 11/02/2022 (Approximate), Expires: 01/02/2023 Start: 11-02-2022 End: 01-02-2023 Lipid 1996 panel - Serum or Plasma LIPID PANEL BASIC Lab Routine Essential hypertension, benign Hyperlipidemia, mixed Impaired fasting glucose Expected: 11/02/2022 (Approximate), Expires: 01/02/2023 [facility] Work Phone: Comment on above: Expected: 11/02/2022 (Approximate), Expires: 01/02/2023 Start: 10-21-2022 Hepatitis B surface antibody level LDL CHOLESTEROL [facility] Start: 10-21-2022 SERUM CREATININE SERUM CREATININE Cl [facility] Start: 09-13-2022 ANNUAL PCP TEAM MARINE TECHNICIAN HECTOR DISEASE VISIT ANNUAL PCP TEAM CHRONIC DISEASE VISIT [facility] Start: 09-13-2022 BP CONTROLLED (<130/80) BP CONTROLLE D (<130/80) [facility] Start: 06-20-2022 COVID-19 VACCINE (5 - Moderna series) COVID-19 VACCINE (5 - Moderna series) [facility] Start: 05-22-2022 ADVANCE DIRECTIVE DISCUSSION ADVANCE DIRECTIVE DISCUSSION [facility] Start: 05-04-2022 End: 07-04-2022 CBC W Auto Differential panel - Blood CBC + DIFF Lab Routine Anemia, unspecified type Expected: 05/04/2022 (Approximate), Expires: 07/04/2022 [facility] Work Phone: Comment on above: Expected: 05/04/2022 (Approximate), Expires: 07/04/2022 Start: 05-04-2022 End: 07-04-2022 Comprehensive metabolic 2000 panel - Serum or Plasma COMP METABOLIC PANEL Lab Routine Essential hypertension, benign Hyperlipidemia, mixed Elevated glucose Expected: 05/04/2022 (Approximate), Expires: 07/04/2022 [facility] Work Phone: Comment on above: Expected: 05/04/2022 (Approximate), Expires: 07/04/2022 Start: 05-04-2022 End: 07-04-2022 Hemoglobin A1c in Blood HGB A1C Lab Routine Elevated glucose Expected: 05/04/2022 (Approximate), Expires: 07/04/2022 [facility] Work Phone: Comment on above: Expected: 05/04/2022 (Approximate), Expires: 07/04/2022 Start: 05-04-2022 End: 07-04-2022 Lipid 1996 panel - Serum or Plasma LIPID PANEL BASIC Lab Routine Essential hypertension, benign Hyperlipidemia, mixed Expected: 05/04/2022 (Approximate), Expires: 07/04/2022 [facility] Work Phone: Comment on above: Expected: 05/04/2022 (Approximate), Expires: 07/04/2022 Start: 04-23-2022 HEMOGLOBIN/HEMATOCRIT HEMOGLOBIN/HEM ATOCRIT [facility] Start: 03-15-2022 SERUM CREATININE SERUM CREATININE Cl [facility] Start: 01-27-2022 [facility] Work Phone: Start: 01-20-2022 End: 03-22-2022 CREATININE BLD CREATININE BLD Lab STAT Lightheadedness Expected: 01/20/2022, Expires: 03/22/2022 [facility] Work Phone: Comment on above: Expected: 01/20/2022 , Expires: 03/22/2022 Start: 01-20-2022 Influenza vaccination INFLUENZA (#1) [facility] Start: 07-16-2021 COVID-19 VACCINE (4 - Booster for Moderna series) COVID-19 VACCINE (4 - Booster for Moderna series) [facility] Start: 05-22-2021 ADVANCE DIRECTIVE DISCUSSION ADVANCE DIRECTIVE DISCUSSION [facility] Start: 05-10-2021 COVID-19 VACCINE (4 - Booster for Moderna series) COVID-19 VACCINE (4 - Booster for Moderna series) [facility] Start: 10-20-2020 Hepatitis B surface antibody level LDL CHOLESTEROL [facility] Start: 04-16-2020 3 comp foot exam completed DIABETIC FOOT EXAM [facility] Start: 04-16-2020 Diabetic foot examination Diabetic F oot Exam [facility] Start: 02-20-2019 Hepatitis B screening URINE AL BUMIN:CREATININE RATIO [facility] Start: 08-02-2017 End: 08-02-2017 Appointment Appointment [employer] Work Phone: Start: 01-23-2017 End: 05-17-2017 *Hepatic Function Panel *Hepatic Function Panel [facility] Work Phone: Start: 01-23-2017 End: 05-17-2017 Lipid panel [AGGREGATE] *Lipid Profile CC PCP [employer] Work Phone: Start: 01-06-2017 SHINGRIX VACCINE (2 of 3) SHOOK GRIX VACCINE (2 of 3) [facility] Start: 08-02-2016 End: 07-21-2016 *Hepatic Function Panel *Hepatic Function Panel [facility] Work Phone: Start: 08-02-2016 End: 07-21-2016 Lipid panel [AGGREGATE] *Lipid Profile CC PCP [employer] Work Phone: Start: 07-27-2016 End: 07-27-2016 Follow Up Appt 1 year Follow Up Appt 1 year [employer] Work Phone: Start: 07-27-2016 End: 07-27-2016 PFM PFM [employer] Work Phone: Start: 2016 RSV Vaccine (1 - 1-d ose 75+ series) RSV Vaccine (1 - 1-dose 75+ series) [facility] Start: 02-08-2016 End: 02-08-2016 Follow Up Appt 9 months Follow Up Appt 9 months [facility] Work Phone: Start: 02-08-2016 End: 02-08-2016 PFM PFM [employer] Work Phone: Start: 01-22-2016 End: 02-02-2016 *Hepatic Function Panel *Hepatic Function Panel [facility] Work Phone: Start: 01-22-2016 End: 02-02-2016 Lipid panel [AGGREGATE] *Lipid Profile CC PCP [employer] [facility] Work Phone: Start: 07-29-2015 End: 07-29-2015 Follow Up Appt 6 months Follow Up Appt 6 months [employer] [facility] Work Phone: Start: 07-29-2015 End: 07-29-2015 PFM PFM [employer] Work Phone: Start: 07-16-2015 End: 07-22-2015 *Hepatic Function Panel *Hepatic Function Panel [facility] Work Phone: Start: 07-16-2015 End: 07-22-2015 Lipid panel [AGGREGATE] *Lipid Profile CC PCP [facility] [facility] Work Phone: Start: 02-09-2015 End: 02-11-2015 *BMP *BMP [employer] Work Phone: Start: 01-30-2015 End: 01-30-2015 Coagulation factor induced.INR assay in platelet poor plasma *PT/INR [employer] Work Phone: Start: 01-21-2015 End: 01-29-2015 *BMP *BMP [employer] Work Phone: Start: 01-21-2015 End: 01-21-2015 Arterial exam Arterial exam [employer] Work Phone: Start: 01-21-2015 End: 01-29-2015 CBC W Auto Differential panel - Blood *CBC without Diff [employer] Work Phone: Start: 01-21-2015 End: 01-21-2015 Echocardiography Echocardiogram (complete) [employer] Work Phone: Start: 01-21-2015 End: 01-21-2015 Follow Up Appt 6 months Follow Up Appt 6 months [employer] Work Phone: Start: 01-21-2015 End: 01-21-2015 Nuclear stress test -exercise Nuclear stress test -exercise [employer] [facility] Work Phone: Start: 01-21-2015 End: 01-21-2015 PFM PFM [facility] Work Phone: Start: 01-21-2015 End: 01-22-2015 Tilt table evaluation Tilt Table Test [facility] Work Phone: Start: 06-12-2014 End: 06-12-2014 Follow Up Appt 6 months Follow Up Appt 6 months [facility] Work Phone: Start: 06-12-2014 End: 06-12-2014 PFM PFM [facility] Work Phone: Start: 12-11-2013 End: 05-28-2014 Follow Up Appt 6 months Follow Up Appt 6 months [facility] Work Phone: Start: 12-11-2013 End: 05-28-2014 MMM MMM [facility] Group Work Phone: Start: 06-18-2013 End: 06-18-2013 Follow Up Appt 6 months Follow Up Appt 6 months [facility] Work Phone: Start: 06-18-2013 End: 06-18-2013 Follow Up Appt Other Follow Up Appt Other [facility] Work Phone: Start: 06-18-2013 End: 06-18-2013 PFM PFM [facility] Work Phone: Start: 12-20-2012 End: 03-12-2013 *Hepatic Function Panel *Hepatic Function Panel [facility] Work Phone: Start: 12-20-2012 End: 12-20-2012 Follow Up Appt 6 months Follow Up Appt 6 months [facility] Work Phone: Start: 12-20-2012 End: 03-12-2013 Lipid panel [AGGREGATE] *Lipid Profile CC PCP [facility] Work Phone: Start: 12-20-2012 End: 12-20-2012 MMM MMM [facility] Work Phone: Start: 06-11-2012 End: 06-12-2012 *Hepatic Function Panel *Hepatic Function Panel [facility] [...] [facility] Work Phone: Start: 12-12-2011 End: 12-12-2011 Follow Up Appt Other Follow Up Appt Other [facility] Work Phone: Start: 11-24-2011 End: 06-07-2012 *Hepatic Function Panel *Hepatic Function Panel [facility] Work Phone: Start: 11-24-2011 End: 06-07-2012 Lipid panel [AGGREGATE] *Lipid Profile [facility] Work Phone: Start: 09-28-2011 End: 09-28-2011 Follow Up Appt 6 months Follow Up Appt 6 months [facility] Work Phone: Start: 03-07-2008 PNEUMOCOCCAL: 65+ (1 - PCV) PNEUMOCOCCAL: 65+ (1 - PCV) [facility] Start: 12-21-2007 Glaucoma screening Dilated Retinal E xam [facility] Start: 12-21-2007 Hepatitis C antibody , confirmatory test DILATED RETINAL EXAM [facility] Start: 06-22-2006 Medicare Annual Well ness Visit Medicare Annual Wellness Visit [facility] Start: 2001 Hepatitis B Vaccine (1 of 3 - Risk 3-dose series) Hepatitis B Vaccine (1 of 3 - Risk 3-dose series) [facility] Start: 2001 RSV Vaccine (1 - 1-d ose 60+ series) RSV Vaccine (1 - 1-dose 60+ series) [facility] Start: 1959 BP CONTROLLED (<130/80) BP CONTROLLE D (<130/80) [facility] Anion gap in Serum o r Plasma [facility] Anion gap measurement [facility] Bacteria identified in Urine by Culture URINE CULTURE Microbiology Routine Urinary frequency 02/25/2023 10:51 AM EDT [facility] Work Phone: BUN/Creatinine ratio [facility] BUN/Creatinine ratio [facility] Calcium [Mass/volume ] in Serum or Plasma [facility] Calcium [Mass/volume ] in Serum or Plasma [facility] Carbon dioxide, tota l [Moles/volume] in Central venous blood [facility] Carbon dioxide, tota l [Moles/volume] in Serum or Plasma [facility] Chloride [Moles/volu me] in Serum or Plasma [facility] Creatinine [Mass/vol ume] in Serum or Plasma [facility] Creatinine [Moles/vo lume] in Serum or Plasma [facility] End: 01-08-2023 CTA HEAD W IVCON CTA HEAD W IVCON Radiology Routine Cerebral infarction, unspecified mechanism (HCC) 1 Occurrences starting 12/09/2021 until 01/08/2023 [facility] Work Phone: Comment on above: 1 Occurrences starti ng 12/09/2021 until 01/08/2023 End: 01-08-2023 CTA NECK W IVCON CTA NECK W IVCON Radiology Routine Cerebral infarction, unspecified mechanism (HCC) 1 Occurrences starting 12/09/2021 until 01/08/2023 [facility] Work Phone: Comment on above: 1 Occurrences starti ng 12/09/2021 until 01/08/2023 Erythrocyte mean corpuscular volume determination [facility] Glucose [Mass/volume ] in Serum or Plasma [facility] Glucose [Mass/volume ] in Serum or Plasma [facility] Hematocrit [Volume Fraction] of Blood [facility] Hematocrit [Volume Fraction] of Blood [facility] Hematocrit [Volume Fraction] of Blood [facility] Hemoglobin [Mass/vol ume] in Blood [facility] Hemoglobin [Mass/vol ume] in Blood [facility] Hemoglobin [Mass/vol ume] in Blood [facility] Leukocytes [#/volume ] in Blood [facility] Leukocytes [#/volume ] in Blood [facility] Leukocytes [#/volume ] in Blood [facility] Mean corpuscular hemoglobin concentration determination [facility] Mean corpuscular hemoglobin concentration determination [facility] Mean corpuscular hemoglobin concentration determination [facility] Mean corpuscular hemoglobin determination [facility] Mean corpuscular hemoglobin determination [facility] Mean corpuscular hemoglobin determination [facility] Measurement of renal function [facility] Measurement of renal function [facility] End: 03-06-2023 Mri brain brain stem w/o contrast material MRI BRAIN WO [facility] Radiology Routine Transient cerebral ischemia, unspecified type 1 Occurrences starting 02/04/2022 until 03/06/2023 [facility] Work Phone: Comment on above: 1 Occurrences starti ng 02/04/2022 until 03/06/20[address] [facility] Neutrophil count [facility] Neutrophil count [facility] Neutrophil percent differential count [facility] Neutrophil percent differential count [facility] Neutrophil percent differential count [facility] OUTSIDE VENDOR CARDI AC OUTPATIENT EXTENDED RHYTHM RECORDING (WITHOUT TELEMETRY) OUTSIDE VENDOR CARDIAC OUTPATIENT EXTENDED RHYTHM RECORDING (WITHOUT TELEMETRY) Holter Routine Cerebrovascular accident (CVA), unspecified mechanism (HCC) Lightheadedness Ordered: 12/09/2021 [facility] Work Phone: Comment on above: Ordered: 12/09/2021 Patient Education [facility] Work Phone: Patient referral [facility] Work Phone: Platelets [#/volume] in Blood [facility] Platelets [#/volume] in Blood [facility] Platelets [#/volume] in Blood [facility] POST VOID RESIDUAL POST VOID RES IDUAL Procedures Routine Weak urinary stream Screening for genitourinary condition Ordered: 12/18/2024 [facility] Comment on above: Ordered: 12/18/2024 Potassium [Moles/vol ume] in Serum or Plasma [facility] Potassium measurement [facility] Red blood cell count [facility] Red blood cell count [facility] Red blood cell count [facility] Red cell distributio n width determination [facility] Red cell distributio n width determination [facility] Red cell distributio n width determination [facility] Serum chloride measurement [facility] Sodium [Moles/volume ] in Serum or Plasma [facility] Sodium measurement [facility] Troponin T.cardiac [Mass/volume] in Serum or Plasma by High sensitivity method [facility] Urea nitrogen [Mass/volume] in Serum or Plasma [facility] Urea nitrogen [Mass/volume] in Serum or Plasma [facility] End: 08-20-2024 US Lower extremity vein US LEG VEIN DVT UNL VAS LAB Vascular Lab Routine Closed nondisplaced fracture of fifth metatarsal bone of left foot, initial encounter Pain of left calf 1 Occurrences starting 08/21/2023 until 08/20/2024 [facility] Work Phone: Comment on above: 1 Occurrences starti ng 08/21/2023 until 08/20/2024 [facility] End: 09-19-2024 XR Foot - left AP and Lateral and oblique XR FOOT GENERAL 3V AP/LAT/OBL LEFT Radiology Routine Closed nondisplaced fracture of fifth metatarsal bone of left foot, initial encounter 1 Occurrences starting 08/21/2023 until 09/19/2024 [facility] Work Phone: Comment on above: 1 Occurrences starti ng 08/21/2023 until 09/19/2024 XR Foot - left AP an d Lateral and oblique XR FOOT GENERAL 3V AP/LAT/OBL LEFT Radiology Routine Closed nondisplaced fracture of fifth metatarsal bone of left foot, initial encounter 08/21/2023 3:00 PM EDT [facility] Work Phone: End: 09-23-2024 XR Foot - left AP and Lateral and oblique XR FOOT GENERAL 3V AP/LAT/OBL LEFT Radiology Routine Closed nondisplaced fracture of fifth metatarsal bone of left foot, initial encounter 1 Occurrences starting 08/25/2023 until 09/23/2024 [facility] Work Phone: Comment on above: 1 Occurrences starti ng 08/25/2023 until 09/23/2024 XR Foot - left AP an d Lateral and oblique XR FOOT GENERAL 3V AP/LAT/OBL LEFT Radiology Routine Closed nondisplaced fracture of fifth metatarsal bone of left foot, initial encounter 09/19/2023 11:40 AM EDT [facility] Work Phone: [facility] Immunizations Immunization Date Immunization Notes Care Provider [facility] 02-04-2025 influenza, high dose seasonal, preservative-free George Vaughan MD Work Phone: [facility] 02-09-2024 influenza virus vacc ine, unspecified formulation Sheldon Slater MD Work Phone: [facility] 04-11-2023 influenza virus vacc ine, unspecified formulation George Vaughan MD Work Phone: [facility] 02-24-2023 tetanus toxoid, redu evelin diphtheria toxoid, and acellular pertussis vaccine, adsorbed Dr. George Vaughan Work Phone: [facility] 03-01-2022 influenza (aIIV4) vaccine, age 65+ yr, quadrivalent, PF (FLUAD QUADRIVALENT) George Vaughan MD Work Phone: [facility] 03-01-2022 influenza, injectabl e, quadrivalent, preservative free Dr. George Vaughan Work Phone: [facility] 03-01-2022 influenza, seasonal, injectable Dr. George Vaughan Work Phone: [facility] 03-01-2022 influenza virus vacc ine, unspecified formulation Jessy Weldon PA-C Work Phone: [facility] 02-18-2022 COVID-19 booster vaccine, age 12+ yr, bivalent (MODERNA) George Vaughan MD Work Phone: [facility] 04-19-2021 influenza (aIIV4) vaccine, age 65+ yr, quadrivalent, PF (FLUAD QUADRIVALENT) Halima Surajhausen [employer] Work Phone: [facility] 04-19-2021 influenza, high dose seasonal, preservative-free Delia Tannhof [employer] Work Phone: [facility] 03-15-2021 Covid (Moderna) Dr. George herron Work Phone: [facility] 03-02-2021 influenza, injectabl e, quadrivalent, preservative free Dr. George Vaughan Work Phone: [facility] 03-02-2021 influenza, seasonal, injectable Halima Dahlhausen [employer] Work Phone: [facility] 07-30-2020 COVID-19 vaccine, fu ll dose (MODERNA) Delia Tannhof [employer] Work Phone: [facility] 07-02-2020 COVID-19 vaccine, fu ll dose (MODERNA) Delia Tannhof [employer] Work Phone: [facility] 03-04-2020 influenza, high-dose , quadrivalent vaccine (FLUZONE HIGH DOSE QUADRIVALENT) Delia Tannhof [employer] Work Phone: [facility] 03-29-2019 influenza, high dose seasonal, preservative-free Delia Tannhof [employer] Work Phone: [facility] 02-27-2018 influenza, high dose seasonal, preservative-free Delia Tannhof [employer] Work Phone: [facility] 05-17-2017 influenza, seasonal, injectable Delia Tannhof [employer] Work Phone: [facility] 11-11-2016 zoster vaccine, live Delia Tannhof [employer] Work Phone: [facility] 04-12-2016 influenza, high dose seasonal, preservative-free Delia Tannhof [employer] Work Phone: [facility] 02-26-2015 influenza, high dose seasonal, preservative-free Delia Saleemirina [employer] Work Phone: [facility] 11-26-2014 pneumococcal conjuga te vaccine, 13 valent Delia Waterman [employer] Work Phone: [facility] 04-14-2014 influenza, high dose seasonal, preservative-free Delia Waterman [employer] Work Phone: [facility] 02-21-2013 influenza virus vacc ine, unspecified formulation Delia Waterman [employer] Work Phone: [facility] 06-12-2012 influenza virus vacc ine, unspecified formulation Delia Saleemirina [employer] Work Phone: [facility] Work Phone: 06-12-2012 tetanus and diphther ia toxoids, adsorbed, preservative free, for adult use (2 Lf of tetanus toxoid and 2 Lf of diphtheria toxoid) Delia Waterman [employer] Work Phone: [facility] Work Phone: 05-19-2008 influenza virus vacc ine, unspecified formulation Delia Mongeirina [employer] Work Phone: [facility] Work Phone: 03-07-2007 pneumococcal polysaccharide vaccine, 23 valent Delia Waterman [employer] Work Phone: [facility] Work Phone: 08-31-2001 tetanus and diphther ia toxoids, adsorbed, preservative free, for adult use (2 Lf of tetanus toxoid and 2 Lf of diphtheria toxoid) Delia Waterman [employer] Work Phone: [facility] Payers Date Payer Category Payer Self-pay [id number] 2013 Private Health Insurance [facility] AARP SUPPLEMENT [id number] 2013-Present [phone] [address] [place] [address] Indemnity [id number] 2013 Private Health Insurance [id number] 2013 Unknown [id number] 2006 Medicare MEDICARE MEDICAR E A AND B [id number] 2006-Present [phone] [address] [address] [place] [address] Medicare [id number] 2006 Medicare [id number] 2006 Medicare [id number] Unknown VA AUTH REQUIR ED SEE NOTE [id number] Unknown [id number] Unknown [id number] Unknown [id number] Unknown [id number] Unknown [id number] Unknown [id number] Unknown [id number] Unknown [id number] Unknown [id number] Unknown [id number] Unknown [id number] Unknown [id number] Unknown [id number] Social History Date Type Detail Facility Start: 01-19-2022 End: 01-27-2025 Tobacco smoking status NHIS Ex-smoker [facility] Start: 05-22-1962 End: 05-22-1981 History of tobacco use Cigarette Smoker [facility] Work Phone: History of tobacco use Pipe Smoker [facility] Work Phone: End: 05-22-1981 History of tobacco use User of smokeless tobacco [facility] Work Phone: Start: 09-14-2021 End: 11-29-2024 Alcohol intake Current non-drinker of alcohol (finding) [facility] Start: 04-12-2016 End: 01-19-2022 Tobacco Comment Quit in 1981 [facility] Start: 1940 Sex Assigned At Not on file [facility] Start: 09-29-2020 End: 02-17-2022 Exposure to SARS-CoV-2 (event) Not sure [facility] Start: 05-22-1962 End: 05-22-1981 History of tobacco use Current smoker [facility] Start: 01-19-2022 End: 11-19-2024 Tobacco use and exposure Former smokeless tobacco user [facility] Start: 01-27-2022 End: 04-16-2023 Tobacco smoking status KYIS Unknown if ever smoked [facility] Start: 03-03-2020 None [facility] Start: 03-03-2020 Spouse/ Signif icant Other [facility] Start: 05-03-2014 Non-smoker [facility] Start: 1940 Sex Assigned At Male W [facility] Start: 12-19-2022 End: 08-21-2023 History of Social function [facility] Start: 12-19-2022 End: 08-21-2023 Tobacco use panel [facility] Start: 04-22-2012 Adult Depression Screening Assessment 1 [facility] Start: 07-28-2024 End: 07-29-2024 Sex Male (finding) [facility] History of tobacco use Passive smoker [facility] Start: 12-18-2024 End: 02-04-2025 Alcoholic beverage intake Ex-drinker (finding) [facility] Medical Equipment Procedure Code Equipment Code Equipment Origin al Text Equipment Identifier Dates Liner 36mm 0d F X3 7.9mm Acetabular Hip - [id number] Start: 08-08-2018 Shell 58mm F Hemispherical Tritanium Acetabular Solid Back Primary - [id number] Start: 08-08-2018 Stem Accolade Ii V40 127d 9 53mm Offset Purefix Titanium Plasma Mcdermott 120mm - [id number] Start: 08-08-2018 Head V40 36mm 0m m Offset Taper Biolox Delta Femoral Hip - [id number] Start: 08-08-2018 Mesh Parietex 4. 6cm Small Collagen Surgical Patch Self Center Resorbable - [id number] Start: 12-13-2024 Goals Date Patient Goal Desired Activity /State Functional Status Date Assessment Result Facility 07-29-2024 Functional status Ambulates;Bath room Privilege [facility] Work Phone: 04-18-2023 Functional status Ambulates [facility] Work Phone: 08-11-2018 Are you deaf, or do you have serious difficulty hearing No 08/11/2018 6:11 PM Lois Miguel (Raul) (Hist), RN No [facility] 08-11-2018 Are you blind, or do you have serious difficulty seeing, even when wearing glasses No 08/11/2018 6:11 PM Lois Miguel (Rn) (Hist), RN No [facility] 08-11-2018 Do you have serious difficulty walking or climbing stairs Yes 08/11/2018 6:11 PM EDT Lois Taylor (Rn) (Hist), RN Yes [facility] 08-11-2018 Do you have difficul ty dressing or bathing Yes 08/11/2018 6:11 PM EDT Lois TaylorRn) (Hist), RN Yes [facility] 08-11-2018 Because of a physica l, mental, or emotional condition, do you have difficulty doing errands alone such as visiting a physician's office or shopping Yes 08/11/2018 6:11 PM EDT Lois TaylorRn) (Hist), RN Yes [facility] Mental Status Date Assessment Result Facility 01-10-2025 Cognitive function Level Of Cons ciousness Sedated [facility] Work Phone: 12-06-2024 Cognitive function Level Of Cons ciousness Awake;Alert;Appropriate;Fol lows Commands [facility] Work Phone: 11-13-2024 Cognitive function Level Of Cons ciousness Awake;Alert;Appropriate;Fol lows Commands [facility] Work Phone: 07-29-2024 Cognitive function Voice/Name [facility] Work Phone: 07-28-2024 Cognitive function Voice/Name [facility] Work Phone: 04-18-2023 Cognitive function Voice/Name [facility] Work Phone: 04-16-2023 Cognitive function Voice/Name [facility] Work Phone: 08-11-2018 Because of a physica l, mental, or emotional condition, do you have serious difficulty concentrating, remembering, or making decisions No 08/11/2018 6:11 PM EDT Lois TaylorRn) (Hist), RN No [facility] Clinical Notes 06-10-2014 to 03-31-2025 Note Date & Type Note Facility 03-31-2025 Note HNO ID: [id number] Author: LANDON STRANGE JR, MD Service: ? Author Type: Physician Type: Progress Notes Filed: 03/31/2025 17:23 Note Text: ESTABLISHED PATIENT VISIT CHIEF COMPLAINT: Follow Up HISTORY OF PRESENT ILLNESS: Rony Monzon is a 84 year old male, BMI 29.05 kg/m2 with a PMH significant for and per last office visit note of 01/26/24: 1. Lightheaded - ICD9: [...] given cardiac history, would like opinion of area development consultant Dr. Arguello. Question if benefit in lowering [...] to follow up with his surgeons at [facility]. 8. History of stroke - ICD9: V12.54, ICD10: Z86.73 Patient with no clinical symptoms. Noted on brain imaging. On Plavix and statin. No additional recs at this time with goal BP <140/90 and goal glucose <140. 9. Headaches - ICD9: 784.0, ICD10: R51.9 Resolved. No more falls since last visit. Lightheadedness persists - essentially any time he stands up. Occurs as soon as he stands up. Resolves upon sitting. Lightheaded pretty much anytime he stands up. Some days are worse than others. Reports drinking plenty of water, but doesn't think enough. We have not received any feed back from cardiology. He has not check BP regularly. When asked about cardiac symptoms, states can have chest pain on and off. Last occurred 2 weeks ago. No associated jaw 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 or radiation into jaw or arm. No other new complaints.. Sitting BP 147/79 HR 54 Standing BP 116/71 HR 57 REVIEW OF SYSTEMS GENERAL:No weight loss, malaise [...] above. SKIN:Negative for lesions, rash, and itching. LAB/IMAGING: [...] Date Value 08/23/2024 108 Bilirubin, Total (mg/dL) Da (more content not included)... [facility] 03-31-2025 Note HNO ID: [id number] Author: LANDON STRANGE JR, MD Service: ? Author Type: Physician Type: Progress Notes Filed: 03/31/2025 17:23 Note Text: [facility] 02-11-2025 Progress note [facility] 02-11-2025 Progress note Note Date/Time February 11, 2025 3:21pm [facility] [address] [place] [address] OFFICE VISIT Date of Service: 02/11/25 MR#: [id number] Acct: [id number] Name: RONY MONZON Rep #: [id number] : 1940 Provider: BRIE Medina Age/Sex: 84/M Location: [facility] Status: Signed Intake Vital Signs 01/27/25 20:48 Height 6 ft 1 in Intake Visit Reasons: Procedure F/U Chief Complaint: f/u EGD Finisher Card Tender Required: No Is patient in pain?: No Allergies hydrocodone (From Vicodin) Allergy (Verified 02/11/25 15:07) Other orphenadrine Allergy (Verified 02/11/25 15:07) Unknown pregabalin Allergy (Verified 02/11/25 15:07) Swelling atorvastatin (From Lipitor) Adverse Reaction (Severe, Verified 02/11/25 15:07) Intolerance,Myalgias Medications ?Medication ?Instructions ?Recorded ?Confirmed ?Type fluoxetine 40 mg capsule (Prozac) 40 mg PO DAILY reflu x 07/04/18 02/11/25 History acetaminophen 500 mg tablet 500 mg PO Q6H PRN Pain 02/11/25 History (Tylenol Extra Strength) amlodipine 5 mg tablet 5 mg PO BID blood pressure 1 02/11/25 History multivitamin 1 tab PO DAILY vitamin 02/0802/11/25 History clopidogrel 75 mg tablet 75 mg PO DAILY anti platelet 05/05/22 02/11/25 History rosuvastatin 10 mg tablet 10 mg PO QHS cholesterol #90 tabs 11/24/22 02/11/25 Rx oxycodone 5 mg tablet 5 mg PO Q6H PRN pain 04/16/ 3 02/11/25 History lisinopril 10 mg tablet 10 mg PO BID blood pressure #180 04/11/24 02/11/25 Rx TABLETS nitroglycerin 0.4 mg sublingual 0.4 mg sublingual Q5-1 5M PRN chest 11/29/24 02/11/25 Rx tablet pain #25 tabs propranolol 20 mg tablet 20 mg PO BID blood pressure 11/29/24 02/11/25 History pantoprazole 40 mg tablet,delayed 40 mg PO BID #60 tab s 01/10/25 02/11/25 Rx release acyclovir 800 mg tablet 800 mg PO Q4H 6 days #36 tab s 01/27/25 02/11/25 Rx Have you fallen in the past year?: No PFSH Medical History High cholesterol Stroke/cerebrovascular accident [...] breath Dyspnea Precordial chest pain 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 [facility] use of drug Atherosclerotic heart disease of [place] coronary artery without angina pectoris 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 Neck pain on left side Benign prostatic hypertrophy Coronary artery disease Surgical History History of umbilical hernia repair [...] at home: Yes HPI HPI Chief Complaint: f/u EGD Details: RONY MONZON, is a 84 M who presents to the office today for follow-up. [facility] established 7.14.25 for intermittent difficulty swallowing. Last EGD many years ago. Patient also with mild constipation and takes milk of mag as needed. MBS 8.4.25 retention of cookie in the middle and lower esophagus which cleared with use of single liquid wash Esophageal manometry EGJ outflow obstruction with the median interval restingpressure is 17.5 mmHg which is greater than 15 mmHg. Suspected due to hiatal hernia. EGD Esophageal mucosal changes suggestive of eosinophilic esophagitis. Dilated. - Abnormal esophageal motility. - No gross lesions in the stomach. - No gross lesions in the entire examined duodenum. - Biopsies were taken with a cold forceps for evaluation of eosinophilic esophagitis. Pathology esophagus biopsy benign squamous epithelium with micro focal area of superficial erosion with keratosis OV 02.11.25 patient continues to have intermittent issues with swallowing. He endorses 1 time per month food will get stuck. He has only had to regurgitate his food on 1 occasion. Patient continues with pantoprazole 40 mg twice a day and feels with some of his coughing and heartburn. ROS Cardio Cardiology: Positive for leg pain with exertion Gastro GI: Positive for abdominal pain, bloating, constipation and excessive flatus Musc Musculoskeletal: Positive for abnormal gait, joint pain, back pain, muscle weakness, stiffness, Arthritis and leg pain with exertion Neuro Neurology: Positive for abnormal gait Psych Psychiatric: Positive for anxiety and Positive for depression Exam Const General: cooperative and comfortable Nutritional Appearance: average body habitus Orientation: alert HENMT Head: normal to inspection Ears: hearing grossly abnormal bilaterally Nose: external nose normal Eyes General: appearance normal, both eyes and all related structures Neck Neck: normal visual inspection Chest Chest palpation & inspection: normal inspection of the chest Resp Effort & Inspection: normal respiratory effort GI Inspection: normal to inspection Assessment and Plan Assessment and Plan (1) Dysphagia: Status: Chronic Qualifiers: Dysphagia type: esophageal phase Qualified Code(s): R13.19 - Other dysphagia Plan: Rony is an 84-year-old male patient here today for follow-up after EGD and manometry. Patient initially established with GI office due to heartburn, dysphagia and chronic cough. Modified barium swallow showed retention of the cookie at the gastroesophageal junction. EGD showed abnormal esophageal motility negative for EOE. Patient has been on pantoprazole 40 mg twice a day for some time now and has noticed some benefit in regards to his heartburn and chronic cough. He is endorsing difficulty swallowing just 1 time per month. Patient is comfortable with continuing PPI for at least 3 months. He may consider further treatment if symptoms increase in frequency or become worse. - Reviewed results - Continue PPI - Follow-up in 3 months for reevaluation (2) Chronic cough: Status: Chronic Coding Level of Care Code Off vis,est,level 3 Diagnoses Esophageal dysphagia R13.19 Dysphagia type: esophageal phase Chronic cough R05.3 Clinical Quality Measures Falls Risk Screening/Assistive Devices Have you fallen in the past year?: No 02/11/25 1547 <Electronically signed by Luann BAIRD> Date _ Luann BAIRD Cosigner Signature: Date (if applicable) CC: ~ [employer] Work Phone: [phone] 735-517309-19-2025 NoteHNO ID: [id number] Author: DANNY NOVOA MD Service: ? Author Type: Physician Type: Progress Notes Filed: 02/07/2025 11:07 Note Text: [facility] Neurological [facility] New Patient Visit Note Consultation requested by Jessy Weldon for an opinion regarding lightheadedness. My final recommendations will be communicated back to the requesting physician by way of shared Medical record or letter to requesting physician via US mail. History of Present Illness: Mr. Monzon is a 84 year old right-handed male with a history of T2DM, CAD, HTN presenting for evaluation of dizziness. Seen by two neurology providers locally. Recommended adjustment to his BP medications. Orthostatic vital signs today notable for supine HTN. Recommended he see a Asbestos Siding Installer, but I don't see that he made an appointment. Reports symptoms started 5 years ago. Seen by Cardiology locally who ordered a TTT. Reports if he stands for prolonged periods of time, where if he stands for prolonged periods of time he gets lightheaded. He drinks 3-4 12oz of water a day. He hardly salts his food. He eats three times a week a frozen meal. Reports taking multiple medications for BP. The patient is able to brush their hair and teeth without difficulty. The patient is able to arise from the squatted position without difficulty and can get up from the seated position without the use of their arms. The patient is able to go up steps in a staircase with some difficulty. He cannot walk for several blocks without needing to stop for rest. He has been using a rollator for about a year. Reports falls where his legs give out from under him. Reports constipation, which he attributes to chronic oxycodone use for back ache and shoulder pain. Vision is good, vision is poor. The patient does not report any other symptoms referrable to neurological focality or neuromuscular deficits. The patient has not noticed any constitutional symptoms like fever, night sweats, anorexia or unintentional weight loss. Smoking: Denies Alcohol: Denies abuse Illicit: Denies Occupation: [id number] Exposure to heavy metals, power plants, etc: Denies PAST MEDICAL HISTORY Diagnosis Date Adjustment disorder with depressed mood Anemia Benign neoplasm of colon Constipation Coronary artery disease Diabetes (HCC) Essential hypertension, benign Gallbladder polyp needs repeat ultrasound in 06/06 H/O hiatal hernia History of stroke Impaired fasting glucose Internal hemorrhoids without mention of complication Myelomalacia of cervical cord (HCC) Other and unspecified hyperlipidemia Personal history of colonic polyps Spinal stenosis of cervical region Spinal stenosis of lumbar region, unspecified whether neurogenic 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 present Umbilical hernia PAST SURGICAL HISTORY Procedure Laterality Date APPENDECTOMY ARTHRP ACETBLR/PROX FEM PROSTC AGRFT/ALGRFT Right 08/08/2018 Dr. Charly Suh CARDIAC CATH N/A 02/02/2015 Completed at [facility] COLONOSCOPY FLX DX W/COLLJ SPEC WHEN PFRMD 07/11/2012 Colonoscopy COLONOSCOPY FLX DX W/COLLJ SPEC WHEN PFRMD 02/24/2017 Colonoscopy COLONOSCOPY W/BIOPSY SINGLE/MULTIPLE 03/29/2006 ESOPHAGOGASTRODUODENOSCOPY TRANSORAL DIAGNOSTIC 02/24/2017 EGD [facility] W/O FACETEC FORAMOT/DSC / VRT SGM CRV 05/2000 Dr Cole PAST SURGICAL HISTORY OF Right 2006 knee surgery REPAIR UMBILICAL HERNIA 12/13/2024 HERNIORRHAPHY UMBILICAL REDUCIBLE RPR TUNICA VAGINALIS HYDROCELE BOTTLE TYPE STENT PLACEMENT 08/2010 [facility] VASECTOMY UNI/BI SPX W/POSTOP SEMEN EXAMS Medications: Current Outpatient Medications Medication Sig pantoprazole DR (PROTONIX) 40 mg tablet Take 1 tablet by mouth two times a day. 30 minutes before eating. magnesium hydroxide (TORRES MILK OF MAGNESIA PO) Take 30 mL by mouth once daily as needed. amoxicillin (AMOXIL) 500 mg capsule 4 capsules [...] No current facility-administered medications for this visit. Allergies: See updated allergies d (more content not included)...[facility]09-16-2025 History of Present illness Narrative* George Vaughan MD - 02/04/2025 9:20 AM EDT Chief Complaint Patient presents with: 6 Month Exam Immunizations: Flu vaccination HPI Rony Monzon is a 84 year old male who presents here today for 6 month follow up. Follows with Gastro Dr. Friend. No bowel, gi, or urinary concerns. Uses MOM as needed. GERD controlled. Started on Protonix 40 mg 1 pill BID. Tremors: Follows with Neuro, taking Propranolol 30 mg 1 pill twice a day. Lipid/CAD: Taking Plavix 75 mg daily and Crestor 10 mg daily. Tries to watch his diet. Denies any exercise. HTN: Checks BP at home occ. Has chest pain, sob, or dizziness at times. Is on Propranolol 30 mg 1 pill BID, Lisinopril 10 mg 1 pill BID, and Norvasc 5 mg 1 pill BID. Follows with [facility]. Hx of elevated glucose/A1c. Currently on no medications at this time and controlling with diet and lifestyle. Pain & SAUCEDO: chronic; uses Oxycodone 5 mg every 6 hours prn and Tylenol extra strength prn, and Flexeril prn. Referred to PT last visit for balance, pain, weakness which was done at [facility]. Was at [facility] ER for shingles to the abdomen and right flank area that occurred a week ago. He was treated with Acyclovir 800 mg 1 pill every 4 hours, took last pill this AM. He feels this is improving. Past medical history, appointments, medications, allergies reviewed. Previous Medical History PAST MEDICAL HISTORY Diagnosis Date Adjustment disorder with depressed mood Anemia Benign neoplasm of colon Constipation Coronary artery disease Diabetes (HCC) Essential hypertension, benign Gallbladder polyp needs repeat ultrasound in 06/06 H/O hiatal hernia History of stroke Impaired fasting glucose Internal hemorrhoids without mention of complication Myelomalacia of cervical cord (HCC) Other and unspecified hyperlipidemia Personal history of colonic polyps Spinal stenosis of cervical region Spinal stenosis of lumbar region, unspecified whether neurogenic 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 present Umbilical hernia Previous Surgical History PAST SURGICAL HISTORY Procedure Laterality Date APPENDECTOMY ARTHRP ACETBLR/PROX FEM PROSTC AGRFT/ALGRFT Right 08/08/2018 Dr. Charly Suh CARDIAC CATH N/A 02/02/2015 Completed at [facility] COLONOSCOPY FLX DX W/COLLJ SPEC WHEN PFRMD 07/11/2012 Colonoscopy COLONOSCOPY FLX DX W/COLLJ SPEC WHEN PFRMD 02/24/2017 Colonoscopy COLONOSCOPY W/BIOPSY SINGLE/MULTIPLE 03/29/2006 ESOPHAGOGASTRODUODENOSCOPY TRANSORAL DIAGNOSTIC 02/24/2017 EGD [place] W/O FACETEC FORAMOT/DSC / VRT SGM CRV 05/2000 Dr Cole PAST SURGICAL HISTORY OF Right 2007 knee surgery REPAIR UMBILICAL HERNIA 12/13/2024 HERNIORRHAPHY UMBILICAL REDUCIBLE RPR TUNICA VAGINALIS HYDROCELE BOTTLE TYPE STENT PLACEMENT 08/2010 [facility] VASECTOMY UNI/BI SPX W/POSTOP SEMEN EXAMS Family [...] swelling, not rash. Norflex [Orphenadri* GI Upset Current Medications Current Outpatient Medications on File Prior to Visit Medication Sig magnesium hydroxide (TORRES MILK OF MAGNESIA PO) Take 30 mL by mouth once daily as needed. amoxicillin (AMOXIL) 500 mg capsule 4 capsules [...] on file prior to visit. Social History SOCIAL HISTORY[1] EXAM: BP 110/70 Pulse 64 Resp 18 Wt 98.8 kg (217 lb 13 oz) BMI 28.74 kg/m General Appearance: Well appearing, alert, in no acute distress, well-hydrated, well nourished.. Skin: resolving shingles rash right side abd, no blisters. Lungs: Lungs clear to auscultation. No wheezing, rhonchi, rales.. Heart: RRR without murmur, gallop, or rubs. No ectopy. Health Maintenance List Medicare Annual Wellness Visit Never done RSV Vaccine(1 - 1-dose 75+ series) Never done Shingrix Vaccine(2 of 3) due on 01/06/2017 Advance Directive Discussion due on 05/22/2024 Influenza Vaccine(1) due on 01/20/2025 LDL Cholesterol due on 08/23/2025 Diabetes Screening due on 08/24/2027 DTaP,Tdap,Td Vaccine(3 - Td or Tdap) due on 02/24/2033 Pneumococcal Vaccine: 50+ Completed Colorectal Cancer Screening Discontinued Data reviewed none Recording using ambient AI software for draft documentation of the visit was discussed with the patient/authorized escrow representative; all questions welcomed and answered. Patient/authorized escrow representative agreed to proceed 1. Essential hypertension 2. Coronary artery disease involving [place] coronary artery of [place] heart without angina pectoris(I25.10) Blood pressure has been stable on current regimen; patient is followed by cardiology. - Continue propranolol 30 mg BID, lisinopril 10 mg BID, and Norvasc 5 mg BID. - Order fasting blood work to be completed in ; notify of results. 3. Need for influenza vaccination (Z23) No contraindications to influenza vaccination. - Administer influenza vaccine today. 4. Hyperlipidemia, mixed (E78.2) Due for routine lab monitoring. - Order fasting blood work to be completed in mid. 5. Gastroesophageal reflux disease, unspecified whether esophagitis present (K21.9) 6. Esophageal stricture (K22.2) Patient reports limited improvement with current PPI therapy; recent esophageal dilation performed to address stricture. - Continue current PPI therapy as recommended by gastroenterology. - Follow-up with gastroenterology in 1-2 weeks. 7. Impaired fasting glucose (R73.01) Due for routine lab monitoring. - Order fasting blood work to be completed in mid-February. 8. Anemia, unspecified type (D64.9) Due for routine lab monitoring. - Order fasting blood work to be completed in mid-February. 9. Vitamin D deficiency (E55.9) Previous lab work indicated low vitamin D levels; patient has not been taking supplementation due to concerns about interactions with Plavix. - Order fasting blood work to be completed in mid-February. 10. Herpes zoster without complications (B02.9) Herpes zoster outbreak began approximately 10 days ago; lesions are healing well with no signs of active infection. - Advised that it is safe to be around others, including women and children. - Educated on the typical course of shingles and the importance of hand hygiene. - Recommended waiting 2-3 months before receiving the shingles vaccine. 11. Light-headedness (R42) Persistent light-headedness impacting mobility; neurology follow-up scheduled with Dr. Danny Novoa this Monday. - Continue with neurology follow-up as scheduled. 12. Essential hypertension, benign (I10) 13. Depression, unspecified depression type (F32.A) Stable Continue current meds Follow up in 6 months Medical Decision Making: Problems: Moderate: 2+ stable chronic illnesses Data: Unique test(s) ordered: 3+ Risk: Moderate: Drug management Medical Decision Making Level: 4 - Moderate George Vaughan MD The documentation for this note was completed by Ana Tong MA acting as scribe for George Vaughan MD. February 04, 2025 9:22 AM. Ana Tong MA [1] Social History Tobacco Use Smoking status: Former Current packs/day: 0.00 Types: Cigarettes, Pipe Start date: 1962 Quit date: 1981 Years since quittin.7 Passive exposure: Past Smokeless tobacco: Former Quit date: 05/22/1981 Tobacco comments: Quit in 1981 Vaping Use Vaping status: Never Used Substance Use Topics Alcohol use: Not Currently Drug use: [facility] NoteHNO ID: [id number] Author: GEORGE VAUGHAN MD Service: ? Author Type: Physician Type: Progress Notes Filed: 02/04/2025 13:43 Note Text: Chief Complaint Patient presents with: 6 Month Exam Immunizations: Flu vaccination HPI Rony Monzon is a 84 year old male who presents here today for 6 month follow up. Follows with Gastro Dr. Friend. No bowel, gi, or urinary concerns. Uses MOM as needed. GERD controlled. Started on Protonix 40 mg 1 pill BID. Tremors: Follows with Neuro, taking Propranolol 30 mg 1 pill twice a day. Lipid/CAD: Taking Plavix 75 mg daily and Crestor 10 mg daily. Tries to watch his diet. Denies any exercise. HTN: Checks BP at home occ. Has chest pain, sob, or dizziness at times. Is on Propranolol 30 mg 1 pill BID, Lisinopril 10 mg 1 pill BID, and Norvasc 5 mg 1 pill BID. Follows with [facility]. Hx of elevated glucose/A1c. Currently on no medications at this time and controlling with diet and lifestyle. Pain AND SAUCEDO: chronic; uses Oxycodone 5 mg every 6 hours prn and Tylenol extra strength prn, and Flexeril prn. Referred to PT last visit for balance, pain, weakness which was done at [facility]. Was at [facility] ER for shingles to the abdomen and right flank area that occurred a week ago. He was treated with Acyclovir 800 mg 1 pill every 4 hours, took last pill this AM. He feels this is improving. Past medical history, appointments, medications, allergies reviewed. Previous Medical History PAST MEDICAL HISTORY Diagnosis Date Adjustment disorder with depressed mood Anemia Benign neoplasm of colon Constipation Coronary artery disease Diabetes (HCC) Essential hypertension, benign Gallbladder polyp needs repeat ultrasound in 06/06 H/O hiatal hernia History of stroke Impaired fasting glucose Internal hemorrhoids without mention of complication Myelomalacia of cervical cord (HCC) Other and unspecified hyperlipidemia Personal history of colonic polyps Spinal stenosis of cervical region Spinal stenosis of lumbar region, unspecified whether neurogenic 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 present Umbilical hernia Previous Surgical History PAST SURGICAL HISTORY Procedure Laterality Date APPENDECTOMY ARTHRP ACETBLR/PROX FEM PROSTC AGRFT/ALGRFT Right 08/08/2018 Dr. Charly Suh CARDIAC CATH N/A 02/02/2015 Completed at [facility] COLONOSCOPY FLX DX W/COLLJ SPEC WHEN PFRMD 07/11/2012 Colonoscopy COLONOSCOPY FLX DX W/COLLJ SPEC WHEN PFRMD 02/24/2017 Colonoscopy COLONOSCOPY W/BIOPSY SINGLE/MULTIPLE 03/29/2006 ESOPHAGOGASTRODUODENOSCOPY TRANSORAL DIAGNOSTIC 02/24/2017 EGD [place] W/O FACETEC FORAMOT/DSC 1/2 VRT SGM CRV 05/2000 Dr Cole PAST SURGICAL HISTORY OF Right 2007 knee surgery REPAIR UMBILICAL HERNIA 12/13/2024 HERNIORRHAPHY UMBILICAL REDUCIBLE RPR TUNICA VAGINALIS HYDROCELE BOTTLE TYPE STENT PLACEMENT 08/2010 [facility] VASECTOMY UNI/BI SPX W/POSTOP SEMEN EXAMS Family [...] swelling, not rash. Norflex [Orphenadri* GI Upset Current Medications Current Outpatient Medications on File Prior to Visit Medication Sig magnesium hydroxide (TORRES MILK OF MAGNESIA PO) Take 30 mL by mouth once daily as needed. amoxicillin (AMOXIL) 500 mg capsule 4 capsules [...] on file prior to visit. Social History SOCIAL HISTORY[1] EXAM: BP 110/70 Pulse 64 Resp 18 Wt 98.8 kg (217 lb 13 oz) BMI 28.74 kg/m? General Appearance: Well appearing, alert, in no acute distress, well-hydrated, well nourished.. Skin: resolving shingles rash right side abd, no blisters. Lungs: [place] (more content not included)...[facility]09-08-2025 Discharge summary [facility] Medical Records Department [address] [place] [id number] Emergency Department Summary 01/27/25 MR#: [id number] Acct: [id number] Name: RONY MONZON Rep #:[id number] : 1940 84 From: Carlos Gaytan DO PCP: Dr. George Vaughan MD Status:[facility] ER Location: ED HPI History of Present Illness Chief Complaint: Rash Narrative Narrative: Patient is a 84-year-old male with past medical history of CVA, hypercholesteremia, depression, hypertension, pulmonary hypertension, REHAN who presents to the emergency department chief complaint of rash. Patient states that the rash has been there for approximately 1 to 2 days and is painful and itchy. The patient's at bedside notes that he told her about it today. They note that he was restarted on Protonix and did some reading on the information that was sent with the prescription and they were concerned that this rash was secondary to this. Patient otherwise feels fine and has no complaints. [facility] Medical History High cholesterol Stroke/cerebrovascular accident Syncope [...] breath Dyspnea Precordial chest pain 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 [facility] use of drug Atherosclerotic heart disease of [place] coronary artery without angina pectoris Left thyroid [...] #90 ta bs 12/02/24 Unknown Rx release pantoprazole 40 mg tablet,delayed 40 mg PO BID #60 tab s 01/10/25 Unknown Rx release acyclovir 800 mg tablet 800 mg PO Q4H 6 days #36 tab s 01/27/25 Unknown Rx Allergy/AdvReac Type Severity Reaction Status Date / Time hydrocodone (From Vicodin) Allergy Other Verified 01/27/25 20:51 orphenadrine Allergy Unknown Verified 01/27/25 20:51 pregabalin Allergy Swelling Verified 01/27/25 20:51 atorvastatin (From Lipitor) AdvReac Severe Intolerance Verified 01/27/25 20:51 ,Myalgias Family History Father CVA (cerebral vascular [...] home: Yes ROS ROS ED ROS Narrative Constitutional: Denies any fevers or chills Eyes: Denies double vision blurry vision changes vision Cardiovascular: Denies chest pain Respiratory: Denies shortness of breath Abdomen: Denies nausea vomit diarrhea Neurological: Denies numbness, wheeze, tingling Skin: Complains of rash as noted above EXAM Physical Exam Narrative Exam Narrative: General: Patient was lying in bed rest comfortably did not appear to be in acutedistress Head: Atraumatic, normocephalic Eyes: PERRL bilaterally, EOMI bilaterally, no conjunctival injection noted Neck: Soft, supple, trachea midline Cardiovascular: Regular rate Extremities: +4/5 strength noted in the bilateral upper and lower extremities Neurological: Patient likely has and that he was at [facility] the year Skin: Warm, dry, patient has evidence of shingles noted on the right lateral chest wall this is blanching no petechia no purpura noted no sloughing of the skin noted Const Vital Signs: 01/27/25 20:48 Temperature 98.6 F Temperature Source Oral Pulse Rate 70 Respiratory Rate 16 Blood Pressure 156/87 H Blood Pressure Mean 110 Pulse Ox 98 Oxygen Delivery Method Room Air MDM MDM MDM Narrative Medical decision making narrative: Patient is 84-year-old male who presents to the emergency department with concern for rash on the right side. On the differential diagnosis includes but limited to shingles, cellulitis. Clinically the patient has shingles he will be given his dose of acyclovir here in the emergency department prescription was sent to the pharmacy. They are advised to rotate Tylenol and ibuprofen [id number] for mild to moderate pain. They are encouraged return with worsening symptoms or concerns otherwise he can follow-up with his primary care physician outpatient setting. All question concerns answered is discharged home in stable condition. Discharge Plan Triage Chief Complaint: Rash ED Provider: Carlos Gaytan Dx/Rx/DC Orders Clinical Impression: Shingles, REHAN (obstructive sleep apnea), Pulmonary hypertension, Type II diabetes mellitus, Historyof hypertension Prescriptions: New acyclovir 800 mg tablet 800 mg PO Q4H 6 Days Qty: 36 0RF Rx Instructions: while awake; give 5 doses in 24 hours No Action fluoxetine [Prozac] 40 mg capsule 40 mg PO DAILY Patient Comments: not taking while taking antibiotic linezolid acetaminophen [Tylenol Extra Strength] 500 mg tablet 500 mg PO Q6H PRN (Reason: Pain) pantoprazole 20 mg tablet,delayed release (DR/EC) 20 mg PO QDAY Qty: 90 3RF nitroglycerin 0.4 mg tablet, sublingual 0.4 mg SUBLINGUAL Q5-15M PRN (Reason: chest pain) Qty: 25 1RF Rx Instructions: do not exceed 3 doses per episode multivitamin Tablet 1 tab PO DAILY oxycodone 5 mg tablet 5 mg PO Q6H PRN (Reason: pain) Patient Comments: TAKE 1 TO 2 TABLET BY MOUTH EVERY SIX HOURS NEEDED FOR PAIN propranolol 20 mg tablet 20 mg PO BID amlodipine 5 mg tablet 5 mg PO BID clopidogrel 75 mg tablet 75 mg PO DAILY rosuvastatin 10 mg tablet 10 mg PO QHS Qty: 90 3RF lisinopril 10 mg tablet 10 mg PO BID Qty: 180 3RF pantoprazole 40 mg tablet,delayed release (DR/EC) 40 mg PO BID Qty: 60 3RF Primary Care Provider: George Vaughan Referrals: George Vaughan MD [Primary Care Provider] - Activity Restrictions/Additional Instructions: Take medication that was sent to your pharmacy as prescribed for the shingles. Rotate Tylenol and ibuprofen [id number] for pain control when you do this you take 7 every 3 hours for pain max dose of Tylenol in 24 hours 4000 mg max dose of ibuprofen in 24 hours 3200 mg. Return with worsening symptoms or any concerns. Print Language: [place] Disposition Disposition: Home, Self Care What to do if you have Problems For any increased pain, shortness of breath, bleeding, nausea or vomiting, chestpain, or any unexpected problems, contact your Primary Care Provider. Call [facility] ([phone]) or report tothe closest Emergency Room. Call 911 if necessary. 01/27/259 Cosigner Signature (if applicable): CC: Dr. George Vaughan MD ~ Signed [facility]09-08-2025 Discharge summary Author Carlos Gaytan [facility] Note Date/Time January 27, 2025 9:54pm [facility] Medical Records Department [address] [place] [address] Emergency Department Summary 01/27/25 MR#: [id number] Acct: [id number] Name: RONY MONZON MARIE Rep #:[id number] : 1940 84 From: Carols Gaytan DO PCP: Dr. George Vaughan MD Status:[place] [facility] ER Location: ED HPI History of Present Illness Chief Complaint: Rash Narrative Narrative: Patient is a 84-year-old male with past medical history of CVA, hypercholesteremia, depression, hypertension, pulmonary hypertension, REHAN who presents to the emergency department chief complaint of rash. Patient states that the rash has been there for approximately 1 to 2 days and is painful and itchy. The patient's at bedside notes that he told her about it today. They note that he was restarted on Protonix and did some reading on the information that was sent with the prescription and they were concerned that this rash was secondary to this. Patient otherwise feels fine and has no complaints. 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 Atherosclerotic heart disease of [place] coronary artery without angina pectoris Left thyroid [...] #90 ta bs 12/02/24 Unknown Rx release pantoprazole 40 mg tablet,delayed 40 mg PO BID #60 tab s 01/10/25 Unknown Rx release acyclovir 800 mg tablet 800 mg PO Q4H 6 days #36 tab s 01/27/25 Unknown Rx Allergy/AdvReac Type Severity Reaction Status Date / Time hydrocodone (From Vicodin) Allergy Other Verified 01/27/25 20:51 orphenadrine Allergy Unknown Verified 01/27/25 20:51 pregabalin Allergy Swelling Verified 01/27/25 20:51 atorvastatin (From Lipitor) AdvReac Severe Intolerance Verified 01/27/25 20:51 ,Myalgias Family History Father CVA (cerebral vascular [...] home: Yes ROS ROS ED ROS Narrative Constitutional: Denies any fevers or chills Eyes: Denies double vision blurry vision changes vision Cardiovascular: Denies chest pain Respiratory: Denies shortness of breath Abdomen: Denies nausea vomit diarrhea Neurological: Denies numbness, wheeze, tingling Skin: Complains of rash as noted above EXAM Physical Exam Narrative Exam Narrative: General: Patient was lying in bed rest comfortably did not appear to be in acutedistress Head: Atraumatic, normocephalic Eyes: PERRL bilaterally, EOMI bilaterally, no conjunctival injection noted Neck: Soft, supple, trachea midline Cardiovascular: Regular rate Extremities: +4/5 strength noted in the bilateral upper and lower extremities Neurological: Patient likely has and that he was at [facility] the year Skin: Warm, dry, patient has evidence of shingles noted on the right lateral chest wall this is blanching no petechia no purpura noted no sloughing of the skin noted Const Vital Signs: 01/27/25 20:48 Temperature 98.6 F Temperature Source Oral Pulse Rate 70 Respiratory Rate 16 Blood Pressure 156/87 H Blood Pressure Mean 110 Pulse Ox 98 Oxygen Delivery Method Room Air MDM MDM MDM Narrative Medical decision making narrative: Patient is 84-year-old male who presents to the emergency department with concern for rash on the right side. On the differential diagnosis includes but limited to shingles, cellulitis. Clinically the patient has shingles he will be given his dose of acyclovir here in the emergency department prescription was sent to the pharmacy. They are advised to rotate Tylenol and ibuprofen [id number] for mild to moderate pain. They are encouraged return with worsening symptoms or concerns otherwise he can follow-up with his primary care physician outpatient setting. All question concerns answered is discharged home in stable condition. Discharge Plan Triage Chief Complaint: Rash ED Provider: Carlos Gaytan Dx/Rx/DC Orders Clinical Impression: Shingles, REHAN (obstructive sleep apnea), Pulmonary hypertension, Type II diabetes mellitus, History of hypertension Prescriptions: New acyclovir 800 mg tablet 800 mg PO Q4H 6 Days Qty: 36 0RF Rx Instructions: while awake; give 5 doses in 24 hours No Action fluoxetine [Prozac] 40 mg capsule 40 mg PO DAILY Patient Comments: not taking while taking antibiotic linezolid acetaminophen [Tylenol Extra Strength] 500 mg tablet 500 mg PO Q6H PRN (Reason: Pain) pantoprazole 20 mg tablet,delayed release (DR/EC) 20 mg PO QDAY Qty: 90 3RF nitroglycerin 0.4 mg tablet, sublingual 0.4 mg SUBLINGUAL Q5-15M PRN (Reason: chest pain) Qty: 25 1RF Rx Instructions: do not exceed 3 doses per episode multivitamin Tablet 1 tab PO DAILY oxycodone 5 mg tablet 5 mg PO Q6H PRN (Reason: pain) Patient Comments: TAKE 1 TO 2 TABLET BY MOUTH EVERY SIX HOURS NEEDED FOR PAIN propranolol 20 mg tablet 20 mg PO BID amlodipine 5 mg tablet 5 mg PO BID clopidogrel 75 mg tablet 75 mg PO DAILY rosuvastatin 10 mg tablet 10 mg PO QHS Qty: 90 3RF lisinopril 10 mg tablet 10 mg PO BID Qty: 180 3RF pantoprazole 40 mg tablet,delayed release (DR/EC) 40 mg PO BID Qty: 60 3RF Primary Care Provider: George Vaughan Referrals: George Vaughan MD [Primary Care Provider] - Activity Restrictions/Additional Instructions: Take medication that was sent to your pharmacy as prescribed for the shingles. Rotate Tylenol and ibuprofen [id number]-[id number] for pain control when you do this you take 7 every 3 hours for pain max dose of Tylenol in 24 hours 4000 mg max dose of ibuprofen in 24 hours 3200 mg. Return with worsening symptoms or any concerns. Print Language: [place] Disposition Disposition: Home, Self Care What to do if you have Problems For any increased pain, shortness of breath, bleeding, nausea or vomiting, chestpain, or any unexpected problems, contact your Primary Care Provider. Call [facility] ([phone]) or report to the closest Emergency Room. Call 911 if necessary. 01/27/25 1368 <Electronically signed by Carlos Gaytan DO> Cosigner Signature (if applicable): CC: Dr. George Vaughan MD ~ Signed [facility] Work Phone: 1(999) 640-144508-22-2025 History and physical note Author Josue Friend [facility] Note Date/Time January 10, 2025 2: 07pm [facility] Medical Records Department [address] [place] [address] History & Physical Exam 01/10/25 1405 MR#: [id number] Acct: [id number] Name: RONY MONZON Rep #:[id number] : 1940 84 From: Josuemishel Seals DO PCP: Dr. George Vaughan MD Status:[facility] Location: [place] [address] HPI - General General Date of Admission: [...] seenon MRI. He has 1 cardiac stent. 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 Assured them that [...] George Vaughan MD; Josue Seals DO~ Signed [facility] Work Phone: 1(463) 869-258308-22-2025 Consult note [facility] Medical Records Department [address] [place] [address] Anesthesia Postop Eval II 01/10/25 1527 MR#: [id number] Acct: [id number] Name: RONY MONZON Rep #:[id number] : 1940 84 From: Scott HENRIQUEZ PCP: Dr. George Vaughan MD Status:RE G SDNando Y Race: C Location: [address] Anesthesia Postop Eval I Sum Postop Eval Completion status Anesthesia document: Postop Eval 1 completed: Yes Anesthesia Postop Eval I Summary Anesthesia Postop Eval I Summary: Anesthesia Postop Eval I: Assessment Summary Airway patent Yes 01/10/25 15:21 CHIEF MEDICAL TECHNOLOGIST.MDOT Spontaneous unlabored Yes 01/10/25 15:21 CHIEF MEDICAL TECHNOLOGIST.MDOT respirations Mental status Awake,Calm 01/10/25 15:21 CHIEF MEDICAL TECHNOLOGIST.MDOT nausea No 01/10/25 15:21 CHIEF MEDICAL TECHNOLOGIST.MDOT Vomiting No 01/10/25 15:21 CHIEF MEDICAL TECHNOLOGIST.MDOT Anesthesia Postop Eval I: Fluid Summary Crystalloid volume administer 100 01/10/25 15:21 CHIEF MEDICAL TECHNOLOGIST.MDOT (ml) Colloids volume administered ( ml) Blood Product volume administered (ml) Total IV fluid infused 100 01/10/25 15:21 CHIEF MEDICAL TECHNOLOGIST.MDOT Anesthesia Postop Eval I: Summary Notes Anesthesia Complication No 01/10/25 15:21 CHIEF MEDICAL TECHNOLOGIST.MDOT Anesthesia Complication Comment: Post-operative progress note Anesthesia: Postop Eval II Evaluation Mental status: Awake and Calm Pain Level: 0 nausea: No Vomiting: No Complications Anesthesia Complication: No 01/10/25 1528 CHIEF MEDICAL TECHNOLOGIST> Date _ Scott Cornejo CHIEF MEDICAL TECHNOLOGIST Cosigner Signature: Date CC: ~ Signed [facility]08-22-2025 Procedure note [facility] Medical Records Department [address] [place] [address] EGD Report MR#: [id number] Acct: [id number] Name: RONY MONZON Rep #:[id number] : 1940 84 From: Josue Seals DO PCP: Dr. George Vaughan MD Status:[facility] Patient Name: Rony Monzon Procedure Date: [...] 3 months. Procedure Code(s): --- Professional --- 24096, Esophagogastroduodenoscopy, flexible, transoral; with insertion of guide wire followed by passage of dilator(s) through esophagus over guide wire 55553, 59,51, Esophagogastroduodenoscopy, flexible, transoral; with biopsy, single or multiple CPT copyright 2021 [employer]. All rights reserved. The codes documented in this report are preliminary and upon highway maintenance worker review may be revised to meet current compliance requirements. Josue Seals DO 01/10/2025 3:23:19 PM This report has been signed electronically. Number of Addenda: 0 Note Initiated On: 01/10/2025 3:00 PM 01/10/25 1523 Date _ Josue Seals DO Cosigner Signature: Date (if indicated) CC: Dr. George Vaughan MD; Josue Seals DO ~ Date Dictated: 01/10/25 1500 Date Transcribed: Marriage And Family Counselor: JACEY Signed [facility]08-22-2025 Procedure note [facility] Medical Records Department [address] [place] [address] Provation Physician Letter MR#: [id number] Acct: [id number] Name: RONY MONZON Rep #:[id number] : 1940 84 From: Josue Seals DO PCP: Dr. George Vaughan MD Status:RE G [facility] 01/10/2025 George Vaughan [address] [place] [address] Re : Upper GI endoscopy procedure for [...] signed electronically. 01/10/25 1523 Date _ Josue Eddy Signature: Date (if indicated) CC: Dr. George Vaughan MD; Josue Seals DO ~ Date Dictated: 01/10/25 1500 Date Transcribed: Marriage And Family Counselor: RF Signed [facility]08-22-2025 Consult note [facility] Medical Records Department [address] [place] [address] Anesthesia Postop Eval I 08/22/25 1520 MR#: [id number] Acct: [id number] Name: RONY MONZON Rep #:[id number] : 1940 84 From: Scott HENRIQUEZ PCP: Dr. George Vaughan MD Status:ANNETTA Barnett [facility] Y Race: C Location: [place] [address] Anesthesia: Postop Eval I Current Vital Signs [...] Postop Eval 1 completed: Yes 01/10/25 1521 CHIEF MEDICAL TECHNOLOGIST> Date _ Scott Corneoj CRNA Cosigner Signature: Date CC: ~ Signed [facility]08-22-2025 Consult note [facility] Medical Records Department [address] [place] [address] Pre-Anesthesia Evaluation 01/10/25 1429 MR#: [id number] Acct: [id number] Name: RONY MONZON Rep #:[id number] : 1940 84 From: Scott HENRIQUEZ PCP: Dr. 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 Hx Hospitalization Yes: 07/2024 ER VISIT, 01/08/25 [...] take am of surgery PONV PONV - aviation 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: PONV - aviation 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 Female No 01/08/25 13:03 HX of Motion [...] 01/10/25 14:08 Respiratory Assessment Respiratory Assessment - aviation 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: Respiratory Tract Infection Hx - aviation 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 Hx Respiratory Tract Infection No 01/08/25 13:03 STOP Sleep Apnea STOP Sleep Apnea - aviation 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: STOP Sleep Apnea - aviation 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 Hx Hypertension Yes: PER PT, CONTROLLED ON [...] Tobacco Use History Tobacco Use History - aviation 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: Tobacco Use History - aviation 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 Tobacco Use Smoking Status Former smoker 01/08/25 13:03 Hx Tobacco Use No 01/08/25 13:03 Years Smoking Packs Smoked per Day Smoking Cessation Date was No - quit smoking greater 01/08/25 13:03 within the last 15 years than 15 years ago Hx Smoking Cessation Date 05/22/81 01/08/25 13:03 Hx Smoking Cessation No 01/08/25 13:03 Counseling Hematologic Medial History Hematologic Hx - aviation 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: Hematologic 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 Hx of Blood Transfusion No 01/08/25 13:03 [...] confused, unrespo /Reproduction History /Reproductive History - aviation 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: /Reproductive Hx- aviation 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 Hx Now No 01/08/25 13:03 Gestational Age [...] breath Dyspnea Precordial chest pain 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 George Vaughan MD Status:[facility] Location: [place] [address] HPI - General General Date of Admission: [...] seenon MRI. He has 1 cardiac stent. 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 Discussed care plan with him and his . He has a scheduled umbilical hernia repair with at [facility] on December 13. Assured them that none of his testing or new medication would impede his surgery. * pantoprazole 20mg PO daily 30minutes before eating * swallowing function w/video * schedule esophageal manometry * schedule EGD * office FU 2wks after EGD 01/10/25 1407 Cosigner Signature (if applicable): CC: Dr. George Vaughan MD; Josue Seals DO~ Signed [facility]08-22-2025 [facility] Medical Records Department [address] [place] [address] History Physical Exam 01/10/25 1405 MR#: [id number] Acct: [id number] Name: RONY MONZON Rep #: [id number] : 1940 84 From: Josue Seals DO PCP: Dr. George Vaughan MD Status:[facility] Location: [place] [address] HPI - General General Date of Admission: 01/10/25 Date of Service: 01/10/25 Chief Complaint: Dysphagia and a cough HPI Narrative Details: RONY MONZON is a 84 M who presents regarding [...] on MRI. He has 1 cardiac stent. [facility] Medical History High cholesterol Stroke/cerebrovascular accident Syncope [...] breath Dyspnea Precordial chest pain 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 [facility] use of drug Atherosclerotic heart disease of [place] coronary artery without angina pectoris Left thyroid [...] Thyroid disorder Surgical History (more content not included)...[facility] 12-27-2024 NoteHNO ID: [id number] Author: GERTRUDE ALLEN APRN.FRONT DESK ADMIN Service: ? Author Type: Nurse Practitioner Type: [...] that may arise. Follow up: EKATERINA Allen APRN.[facility] Procedure note [facility] Speech Pathology [address] [place] [address] Modified Barium Swallow Study MR#: [id number] Acct: [id number] Name: RONY MONZON Rep #:[id number] : 1940 84 From: Rosita Mojica, [facility]-PAR[employer] MAINTENANCE TECHNICIAN Modified Barium Swallow Patient Information Study Date: [...] esophageal manometry, and EGD w/ follow-up. 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 [place] Thick Liquid via small single sip: cup: [...] Status Active ST Patient: Active Contact Information [facility] Speech Therapy:: Rosita Pacheco M.A. [employer]-PARK MAINTENANCE TECHNICIAN? Speech-Language Pathologist?? [facility] [address] [place] [address]? [email or web address]?? [phone] 12/23/24 Moira Holloway CCC-PARK MAINTENANCE TECHNICIAN> Date/Time Rosita Pacheco M.A. CCC-PARK MAINTENANCE TECHNICIAN Co-Signature Required for all Medicare patients Date/Time Co-Signature CC: ~ [facility]08-01-2025 Telephone encounter Note* Telephone Encounter - Delmis Cooney LPN - 12/20/2024 5:40 PM EDT OV note from today's visit forwarded to Dr Arguello as requested by Dr Strange. Delmis Cooney LPN [facility]08-01-2025 Miscellaneous Notes* Telephone Encounter - Delmis Cooney LPN - 12/20/2024 5:40 PM EDT OV note from today's visit forwarded to Dr Arguello as requested by Dr Strange. Delmis Cooney LPN documented in this encounterPrem[facility]08-01-2025 NoteHNO ID: [id number] Author: LANDON STRANGE JR, MD Service: ? [...] daily. 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 [...] given cardiac history, would like opinion of area development consultant Dr. Arguello. Question if benefit in lowering [...] to follow up with his surgeons at [facility]. 8. History of stroke - ICD9: V12.54, [...] for abdominal discomfort, b (more content not included)...[facility] History of Present illness Narrative* Landon Strange [...] daily. 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 [...] given cardiac history, would like opinion of area development consultant Dr. Arguello. Question if benefit in lowering [...] to follow up with his surgeons at [facility]. 8. History of stroke - ICD9: V12.54, [...] dysarthria; comprehension, naming, repetition intact. Short and long term care phlebotomist memory intact. Fund of knowledge grossly normal [...] which included preparing to see the patient, mgnt-ve-buou patient care, completing clinical documentation, obtaining and/or reviewing separately obtained history, performing a medically appropriate examination, counseling and educating the pat ient/family/caregiver, ordering medications, tests, or procedures, communicating with other HCPs (not separately reported), and communicating results to the patient/family/caregiver. documented in this encounterPrem[facility]07-30-2025 NoteHNO ID: [id number] Author: RACHEL PETTIT LPN Service: ? Author Type: LICENSED NURSE Type: Progress Notes Filed: 12/18/2024 15:12 Note Text: Interpreting services utilized via (plug shaper hand service modality: plug shaper hand not needed for appointment). Patient can hear [...] the procedure well. Plan: Micheal Allen APRN, CNPDetwiler [facility]07-30-2025 History of Present illness Narrative* Rachel Pettit LPN - 12/18/2024 2:02 PM EDT Interpreting services utilized via (plug shaper hand service modality: plug shaper hand not needed for appointment). Patient can hear [...] Micheal Allen APRN, CNP * Gertrude Allen APRN.CNP - 12/18/2024 2:00 PM EDT Images from [...] 2-3 years ago, follows with Dr. Ibarra -amelia taking percocet twice a day -notes he [...] or sooner with worsening symptoms Gertrude Allen APRN.CNP documented in this encounterPrem[facility]07-30-2025 NoteHNO ID: [id number] Author: GERTRUDE ALLEN APRN.CNP Service: ? Author [...] 2-3 years ago, follows with Dr. Ibarra -amelia taking percocet twice a day -notes he [...] or sooner with worsening symptoms Gertrude Allen APRN.CNPDetwiler [facility]07-30-2025 Telephone encounter Note* Telephone Encounter - Sheldon Slater MD - 12/18/2024 11:00 AM EDT Get the patient into see karla [facility]07-30-2025 Miscellaneous Notes* Telephone Encounter - Sheldon Slater MD - 12/18/2024 11:00 AM EDT Get the patient into see karla * Telephone Encounter - Alejandra Gutierrez LPN [...] Please advise and contact patient and at [phone]. Alejandra Gutierrez LPN documented in this encounterPremier [facility]07-30-2025 Telephone encounter Note * Telephone [...] Please advise and contact patient and at [phone]. Alejandra Gutierrez LPN [facility] Work Phone: 1(219) 985-218207-25-2025 NoteHNO ID: [id number] Author: ?, ?, ? Service: Pharmacy Author Type: ? Type: Plan of Care Filed: 12/13/2024 13:34 Note Text: PHARMACY BEDSIDE DELIVERY SERVICE Patient Name: Rony Monzon The marked outpatient medications were Filled at: [facility] and delivered to the patient's bedside to [...] or your Primary Care Provider. Maria L Victro PAGER: [phone] December 13, 2024 1:34 PMRiverside [facility] [id number] NoteHNO ID: [id number] Author: PASTORA OSEI APRN.CRNA Service: Anesthesiology Author Type: Nurse Hospital Chief Executive Officer Type: Anesthesia Procedure Notes Filed: 12/13/2024 09:36 Note Text: ANESTHESIOLOGY PROCEDURE NOTE Airway General Information Procedure Start Time/Medication Administration: 12/13/2024 9:26 AM Procedure End Time: 12/13/2024 9:26 AM Patient location during procedure: OR Timeout Performed Pre-procedure: timeout performed Consent Obtained: Yes Patient identity confirmed: arm band and patient Staffing Performed by: CHIEF MEDICAL TECHNOLOGIST Indications and Patient Condition Indications for airway management: anesthesia Preoxygenated: yes anesthesia circuit Patient position: sniffing Method: asleep Final Airway Details Final airway type: endotracheal airway Final Endotracheal Airway: ETT Successful intubation technique: video laryngoscopy Devices used: Fruitfulll Endotracheal tube insertion site: oral Blade: Bridget Blade size: #4 ETT size (mm): 7.5 Placement verified by: capnometry Cormack-Lehane Classification: grade I - full view of glottis Number of attempts at approach: 1 Comments Many broken teeth pre-op, IDVL x 1, atraumatic SIGNATURE: Pastora Osei APRN.CHIEF MEDICAL TECHNOLOGIST PATIENT NAME: Rony Monzon DATE: December 13, 2024 TIME: 9:35 AM CSN: [id number] Telephone encounter Note* Telephone Encounter - Sveta Arana LPN - 12/02/2024 10:02 AM EDT Last office visit printed and scanned into Epic through Onbase scanning. Sveta Arana LPN [facility]07-14-2025 Miscellaneous Notes* Telephone Encounter - Sveta Arana LPN - 12/02/2024 10:02 AM EDT Last office visit printed and scanned into Epic through Onbase scanning. Sveta Arana LPN * Telephone Encounter - Sveta Arana LPN - 11/29/2024 1:04 PM EDT Printed last office visit and cardiac testing. Scanned into Epic through Onbase scanning. Sveta Arana LPN * Telephone Encounter - Sindy Denise APRN.THANG - 11/29/2024 10:25 AM EDT Can we request last cardiac OV and testing from [facility] [facility] DOS 12/13/24. documented in this encounterPremier Health [facility]07-11-2025 Telephone encounter Note * Telephone Encounter - Sveta Arana LPN - 11/29/2024 1:04 PM EDT Printed last office visit and cardiac testing. Scanned into [employer] through Onbase scanning. Sveta Arana LPN [facility]07-11-2025 Telephone encounter Note* Telephone Encounter - Sindy Denise APRN.CNP - 11/29/2024 10:25 AM EDT Can we request last cardiac OV and testing from [facility]. DOS 12/13/24. [facility]07-11-2025 History and physical note* Sindy Denise APRN.THANG - 11/29/2024 9:52 AM EDT Images from the original note were not included. [facility] HISTORY AND PHYSICAL EXAMINATION SERVICE DATE: 11/29/2024 SERVICE TIME: 10:38 AM PRIMARY CARE PHYSICIAN: George Vaughan MD Assessment Patient has the following medical conditions which may affect brooke-operative course: Coronary artery disease involving [place] coronary artery of [place] heart without angina pectoris Assessment: s/p stent 2011, c/w daily ASA, statin, and BB. Following [facility], reports normal stress earlier this year, records [...] have a large neck STOP-Bang Score: 3 [id number] Score: Age: >=75 Sex: male CHF history: No Hypertension history: Yes Stroke/TIA/thromboembolism history: Yes Vascular disease history: Yes Diabetes history: No [id number] Score: 6 I - PHYSICAL EVALUATION AIRWAY [...] and hypertension Patient's last office visit with area development consultant, RUSLAN, The following tests and/or procedures were performed: cardiac stents. Negative for: abdominal aortic aneurysm, AICD/PPM, angina, arrhythmia, atrial fibrillation, chest pain, CHF, congenital heart defect, DVT/PE, recent NJ, murmur/valvular heart disease, PTCA, PVD, openheart surgery [...] benign Gallbladder polyp needs repeat ultrasound in / H/O hiatal hernia Impaired fasting glucose Internal hemorrhoids without mention of complication Other and unspecified hyperlipidemia Personal history of colonic polyps Umbilical hernia PAST SURGICAL HISTORY Procedure Laterality Date APPENDECTOMY ARTHRP ACETBLR/PROX FEM PROSTC AGRFT/ALGRFT Right 08/08/2018 Dr. Charly Suh CARDIAC CATH N/A 02/02/2015 Completed at [facility] COLONOSCOPY FLX DX W/COLLJ SPEC WHEN PFRMD 07/11/12 Colonoscopy COLONOSCOPY FLX DX W/COLLJ SPEC WHEN PFRMD 02/24/2017 Colonoscopy COLONOSCOPY W/BIOPSY SINGLE/MULTIPLE 03/29/06 ESOPHAGOGASTRODUODENOSCOPY TRANSORAL DIAGNOSTIC 02/24/2017 EGD SHARP W/O FACETEC FORAMOT/DSC / VRT SGM CRV Dr Cole PAST SURGICAL HISTORY OF Right 2007 knee surgery RPR TUNICA VAGINALIS HYDROCELE BOTTLE TYPE STENT PLACEMENT 08/2010 [facility] VASECTOMY UNI/BI SPX W/POSTOP SEMEN EXAMS FAMILY [...] or any previous visit (from the past 32184 hours). Instructions Given to Patient: Instructions located in the after visit summary. Patient given verbal and written preop instructions and voices comprehension and compliance. SIGNATURE: Sindy Denise APRN.CNP PATIENT NAME: Rony Monzon DATE: November 29, 2024 TIME: 9:52 AM PAGER/CONTACT #: [facility]07-11-[facility]25 History and physical note* Sindy Denise APRN.CNP - 11/29/2024 9:52 AM EDT Images from the original note were not included. [facility] HISTORY AND PHYSICAL EXAMINATION SERVICE DATE: 11/29/2024 SERVICE TIME: 10:38 AM PRIMARY CARE PHYSICIAN: George Vaughan MD Assessment Patient has the following medical conditions which may affect brooke-operative course: Coronary artery disease involving [place] coronary artery of [place] heart without angina pectoris Assessment: s/p stent [...] have a large neck STOP-Bang Score: 3 [id number] Score: Age: >=75 Sex: male CHF history: No Hypertension history: Yes Stroke/TIA/thromboembolism history: Yes Vascular disease history: Yes Diabetes history: No [id number] Score: 6 I - PHYSICAL EVALUATION AIRWAY [...] Imm Admin: COVID-19 vaccine, age 12+ yr ([employer]) 04/11/2023 Imm Admin: COVID-19 vaccine, age 12+ yr ([employer]) 02/18/2022 Imm Admin: COVID-19 vaccine, age [...] and hypertension Patient's last office visit with area development consultant, RUSLAN, The following tests and/or procedures were performed: cardiac stents. Negative for: abdominal aortic aneurysm, AICD/PPM, angina, arrhythmia, atrial fibrillation, chest pain, CHF, congenital heart defect, DVT/PE, recent NJ, murmur/valvular heart disease, PTCA, PVD, openheart surgery [...] Suh CARDIAC CATH N/A 02/02/2015 Completed at [facility] COLONOSCOPY FLX DX W/COLLJ SPEC WHEN PFRMD 07/11/12 Colonoscopy COLONOSCOPY FLX DX W/COLLJ SPEC WHEN PFRMD 02/24/2017 Colonoscopy COLONOSCOPY W/BIOPSY SINGLE/MULTIPLE 03/29/06 ESOPHAGOGASTRODUODENOSCOPY TRANSORAL DIAGNOSTIC 02/24/2017 EGD SHARP W/O FACETEC FORAMOT/DSC 1/[address] Cole PAST SURGICAL HISTORY OF Right 2007 knee surgery RPR TUNICA VAGINALIS HYDROCELE BOTTLE TYPE STENT PLACEMENT 08/2010 [facility] VASECTOMY UNI/BI SPX W/POSTOP SEMEN EXAMS FAMILY [...] or any previous visit (from the past 76347 hours). Instructions Given to Patient: Instructions located in the after visit summary. Patient given verbal and written preop instructions and voices comprehension and compliance. SIGNATURE: Sindy Denise APRN.FRONT DESK ADMIN PATIENT NAME: Rony Monzon DATE: November 29, 2024 TIME: 9:52 AM PAGER/CONTACT #: documented in this encounterPremier Health At[facility] Medical Center07-11-2025 Evaluation note* Diagnosis Onset Date Resolution Status Admit Date History of CAD (coronary art placido disease) acute November 29, 2024 7:51am Pre-operative cardiovascular examination acute November 29, 2024 7:51am Essential hypertension chronic Ju ly 2024 7:51am Pure hypercholesterolemia chronic November 29, 2024 7:51am Dysphagia acute December 02 9:53am Chronic cough chronic December 02, 2024 9:53am [facility] Work Phone: 1(400) 535-595907-11-2025 Evaluation note* Diagnosis Onset Date Resolution Status Admit Date History of CAD (coronary art placido disease) acute November 29, 2024 7:51am Pre-operative cardiovascular examination acute November 29, 2024 7:51am Essential hypertension chronic Ju ly 2024 7:51am Pure hypercholesterolemia chronic November 29, 2024 7:51am Chronic cough chronic December 02, 2024 9:53am Dysphagia chronic December 02 9:53am [facility] Work Phone: 1(675) 335-399607-11-2025 Evaluation note* Diagnosis Onset Date Resolution Status [...] chronic December 1:41pm Dysphagia chronic January 10, 025 1:41pm [facility] Work Phone: 1(647) 559-665707-11-2025 Evaluation note* Diagnosis Onset Date Resolution Status [...] Dysphagia chronic January 10, 2 025 1:41pm Chronic cough chronic January 212024 2:53pm Dysphagia chronic January 2:53pm [facility] Work Phone: 1(651) 639-892407-11-2025 Instructions* Patient Instructions* Sindy Denise APRN.FRONT DESK ADMIN - 11/29/2024 9:51 AM EDT Images from the original note were not included. [facility] Pre[facility]est[facility] PATIENT PREOPERATIVE INSTRUCTIONS Sheldon Slater MD has scheduled you for your procedure at this surgery center: [facility]: [phone] -- [address] [address]. Please read below carefully for your personalized [...] office. If you are currently using a wrej-ono-eisp injectable or oral medication for diabetes or [...] or other anticoagulants without consulting with your area development consultant or prescribing physician. - Stop ALL herbal [...] Procedures: - YOU MUST HAVE A RESPONSIBLE CHILDREN'S COUNSELOR TAKE YOU HOME. A SENIOR ANALYST PROGRAMMER OR RAILROAD CONSTRUCTION DIRECTOR CANNOT BE MADE A RESPONSIBLE CHILDREN'S COUNSELOR. - We recommend that a responsible person [...] Advance Directive, please fax a copy to [phone] or email to for it to be [...] day. Sindy Denise APRN.THANG documented in this encounterPremier Health [facility] Center07-03-2025 Telephone encounter Note * Telephone [...] Plavix ? Thank you Chidi Jain RN [facility]07-03-2025 Miscellaneous Notes* Telephone Encounter - [...] you Chidi Jain RN documented in this encounterPremier Health [facility] Center07-02-2025 Telephone encounter Note * Telephone Encounter - Sveta Arana LPN - 11/20/2024 10:23 AM EDT Patients calling in for ATB prior to dental procedure in a couple weeks. Sveta Arana LPN [facility]07-02-2025 Miscellaneous Notes* Telephone Encounter - Sveta Arana LPN - 11/20/2024 10:23 AM EDT Patients calling in for ATB prior to dental procedure in a couple weeks. Sveta Arana LPN documented in this encounterPremier Health At[facility] Medical Center07-02-2025 Telephone encounter Note * Telephone Encounter - Argenis Jain RN - 11/20/2024 9:48 AM EDT Sent a letter to area development consultant, Dr. Yevgeniy Arguello for preoperative Plavix instructions-awaiting reply Argenis Jain RN November 20, 2024 10:23 AM [facility]07-02-2025 Miscellaneous Notes* Telephone Encounter - Argenis Jain RN - 11/20/2024 9:48 AM EDT Sent a letter to area development consultant, Dr. Yevgeniy Arguello for preoperative Plavix instructions-awaiting reply Argenis Jain RN November 20, 2024 10:23 AM documented in this encounterPremier Health Atrium Medical Center07-02-2025 NoteHNO ID: [id number] Author: ARGENIS JAIN RN Service: ? Author Type: Registered Nurse Type: Progress Notes Filed: 11/28/2024 07:15 Note Text: RN Pre Visit Questionnaire for upcoming PACC appointment PROCEDURE : HERNIORRHAPHY UMBILICAL REDUCIBLE 3cm-10cm SURGEON : Dr. Lc Slater PROCEDURE DATE : 12/13/2024 PACC APPT : 11/29/2024 Prepared for surgery: Anticoagulant recommendations received: Yes RN Pre Visit Questionnaire completed by [facility] chart review and completed with patient and patient's spouse/significant other-Tere Patient is very hard of hearing. Do you see a area development consultant, warp knitter helper, industrial custodian or other specialist within or outside of [facility]? Asbestos Siding Installer: Dr. Yevgeniy Arguello/ Mallorie Santos MARY: 12/15/2022 requested from office No reply per pt's -has not seen area development consultant since Dr. Dunn left practice around 2022. SPECIALISTS: NEUROLOGY:Dr. Strange/ Office Visit with Jessy Weldon PA-C (08/21/2024) PRIMARY CARE PHYSICIAN: Office Visit with George Vaughan MD (07/23/2024) Camp Assistant: Dr. Salas Friend~MARY: Schedule appt., on 12/02 [...] saw your specialist? Yes, went to ED [facility] on 11/13/2024 for dysphagia and referred to container finisher for intermittent difficulty swallowing. Are you a Pre Diabetic/Diabetic/Weight loss/CHF medications No Dialysis No Skilled Facility Resident: no Any recent hospitalizations within [facility] or outside facilities in the past 3 months No Please have an up-to-date list of medications in preparation for your PACC visit. SIGNATURE: Argenis Jain RN PATIENT NAME: Rony Monzon DATE: November 20, 2024 TIME: 9:24 AM [phone] History of Present illness Narrative* Argenis Jain RN - 11/20/2024 9:24 AM EDT RN Pre Visit Questionnaire for upcoming PACC appointment PROCEDURE : HERNIORRHAPHY UMBILICAL REDUCIBLE 3cm-10cm SURGEON : Dr. Lc Slater PROCEDURE DATE : 12/13/2024 PACC APPT : 11/29/2024 Prepared for surgery: Anticoagulant recommendations received: Yes RN Pre Visit Questionnaire completed by [facility] chart review and completed with patient and patient's spouse/significant other-Tere Patient is very hard of hearing. Do you see a area development consultant, warp knitter helper, industrial custodian or other specialist within or outside of [facility]? Asbestos Siding Installer: Dr. Yevgeniy Arguello/ Mallorie Santos MARY: 12/15/2022 requested from office No reply per pt's -has not seen area development consultant since Dr. Dunn left practice around 2022. SPECIALISTS: NEUROLOGY:Dr. Strange/ Office Visit with Jessy Weldon PA-C (08/21/2024) PRIMARY CARE PHYSICIAN: Office Visit with George Vaughan MD (07/23/2024) Camp Assistant: Dr. Salas Friend~MARY: Schedule appt., on 12/02 [...] saw your specialist? Yes, went to ED [facility] on 11/13/2024 for dysphagia and referred to container finisher for intermittent difficulty swallowing. Are you a [...] 9:24 AM PAGER/CONTACT PHONE: documented in this encounterPremier Health Atrium Medical Center07-01-2025 NoteHNO ID: [id number] Author: SHELDON SLATER MD Service: ? Author Type: Physician Type: Progress Notes Filed: 11/19/2024 10:48 Note Text: HISTORY AND PHYSICAL Rony Monzon 1940 REFERRING PHYSICIAN: George Vaughan MD CHIEF COMPLAINT: Abdominal Mass ([facility] ED f/u - umbilical hernia) [...] Suh CARDIAC CATH N/A 02/02/2015 Completed at [facility] COLONOSCOPY FLX DX W/COLLJ SPEC WHEN PFRMD 07/11/12 Colonoscopy COLONOSCOPY FLX DX W/COLLJ SPEC WHEN PFRMD 02/24/2017 Colonoscopy COLONOSCOPY W/BIOPSY SINGLE/MULTIPLE 03/29/06 ESOPHAGOGASTRODUODENOSCOPY TRANSORAL DIAGNOSTIC 02/24/2017 EGD SHARP W/O FACETEC FORAMOT/DSC 1/[address] Cole PAST SURGICAL HISTORY OF Right 2007 knee surgery RPR [place]UN[place] VAGINALIS HYDROCELE BOTTLE TYPE STENT PLACEMENT 08/2010 [facility] VASECTOMY UNI/BI SPX W/POSTOP SEMEN EXAMS Current [...] inguinal hernias are not (more content not included)...[facility]07-01-2025 History of Present illness Narrative* Sheldon Slater MD - 11/19/2024 10:33 AM EDT HISTORY AND PHYSICAL Rony Monzon 1940 REFERRING PHYSICIAN: George Vaughan MD CHIEF COMPLAINT: Abdominal Mass ([facility] ED f/u - umbilical hernia) [...] Suh CARDIAC CATH N/A 02/02/2015 Completed at [facility] COLONOSCOPY FLX DX W/COLLJ SPEC WHEN PFRMD 07/11/12 Colonoscopy COLONOSCOPY FLX DX W/COLLJ SPEC WHEN PFRMD 02/24/2017 Colonoscopy COLONOSCOPY W/BIOPSY SINGLE/MULTIPLE 03/29/06 ESOPHAGOGASTRODUODENOSCOPY TRANSORAL DIAGNOSTIC 02/24/2017 EGD SHARP W/O FACETEC FORAMOT/DSC 05/[address] Cole PAST SURGICAL HISTORY OF Right 2007 knee surgery RPR TUNICA VAGINALIS HYDROCELE BOTTLE TYPE STENT PLACEMENT 08/2010 [facility] VASECTOMY UNI/BI SPX W/POSTOP SEMEN EXAMS Current [...] outcomes and possible complications were mentioned. Rony julio that all hernia repair surgery has a [...] CPT Code: Initial anterior abdominal hernia repair: 57876 - 3-10 cm reducible Anticipated Anesthetic: General Patient weight: Blood pressure 136/64, pulse 81, temperature 36.2 C (97.1 F), resp. rate 19, zydrnb464.4 cm (6' 1), weight 98.3 kg (216 lb 12.8 oz), SpO2 97%. BMI: Body mass index is 28.6 kg/m . 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 Sheldon Slater III, MD documented in this encounterPremier Health Atrium Medical Center06-25-2025 Radiology Diagnostic study note [facility] Imaging Services [address] [place] [address] [id number] Abdomen/Pelvis W IV Cont ONLY MR#: [id number] Acct: [id number] Name: RONY MONZON Rep #: [id number] : 1940 M 84 From: Fina Johnston MD PCP: Dr. George Vaughan MD Status: RE G ER Study:Abdomen/Pelvis W IV Cont ONLY Date of E xam: 11/13/24 Exam# [id number] Ordering Dr: Petr Soto DO PROCEDURE: ABDOMEN/PELVIS [...] IMPRESSION: No acute abdominopelvic finding. Reading Location: [facility] CC: Dr. Petr Perry DO; Dr. George Vaughan MD ~ Marriage And Family Counselor: Signed [facility]06-25-2025 Radiology Diagnostic study note [facility] Imaging Services [address] [place] [address] Chest PA and Lateral MR#: [id number] Acct: [id number] Name: RONY MONZON Rep #: [id number] : 1940 M 84 From: Estephania Hinton MD PCP: Dr. Geogre Vaughan MD Status: RE G ER Study:Chest PA and Lateral Date of Exam: 11/13/24 Exam# [id number] Ordering Dr: Klusty-L iggett,Petr DO PROCEDURE: CHEST PA AND LATERAL 11/13/2024 REASON FOR EXAM: CHEST PAIN TECHNIQUE: CHEST PA AND LATERAL COMPARISON: 07/28/2024 FINDINGS: Bibasilar subsegmental atelectasis. Mild pulmonary vascular congestion. No focal consolidation. No pleural effusion or pneumothorax. Cardiac silhouette is unchanged. No acute fractures. RAD/Chest PA and Lateral IMPRESSION: Mild pulmonary vascular congestion. No focal consolidation. Stable mild cardiomegaly. Reading Location: [id number] CC: Dr. Petr Perry, DO; Dr. George Vaughan MD ~ Marriage And Family Counselor: Signed [facility]05-09-2025 Telephone encounter Note* Telephone Encounter - Landon Strange Jr., MD - 09/27/2024 4:05 PM EDT Procedure clearance requested by [facility], [facility]. Note that I have only seen patient [...] the physician performing the procedure as a clinical consultant I do not know and unaware of all risks. Note that the above risks -- holding Plavix for procedure -- were not directly discussed with the patient or patient's guardian at the time of his last visit on 01/26/24. Landon Strange MD [facility] Work Phone: 1(252) 590-232105-09-2025 Miscellaneous Notes* Telephone Encounter - Landon Strange Jr., MD - 09/27/2024 4:05 PM EDT Procedure clearance requested by [facility], [facility]. Note that I have only seen patient [...] the physician performing the procedure as a clinical consultant I do not know and unaware of all risks. Note that the above risks -- holding Plavix for procedure -- were not directly discussed with the patient or patient's guardian at the time of his last visit on 01/26/24. Landon Strange MD documented in this encounterPremier Health [facility] Center04-30-2025 Telephone encounter Note * Telephone Encounter - Zander Chavez APRN.CNP - 09/18/2024 12:46 PM EDT The following approved medication requests have been transmitted electronically. Requested Prescriptions Pending Prescriptions Disp Refills rosuvastatin (CRESTOR) 10 mg tablet 90 tablet 3 Sig: Take 1 tablet by mouth daily at bedtime. Zander Chavez APRN.CNP [facility]04-30-2025 Miscellaneous Notes* Telephone Encounter - [...] Thank you. Lois Flowers. documented in this encounterPremier Health Atrium Medical Center04-30-2025 Telephone encounter Note * Telephone [...] 02/04/2025 Please advise. Thank you. Lois Flowers. [facility]04-10-2025 Telephone encounter Note* Telephone Encounter - Ana Tong MA - 08/29/2024 3:56 PM EDT Pt notified of results via [employer]. Ana Tong Ma [facility]04-10-2025 Miscellaneous Notes* Telephone Encounter - Ana Tong MA - 08/29/2024 3:56 PM EDT Pt notified of results via [employer]. Ana Tong Ma * Telephone Encounter - George Vaughan MD - 08/29/2024 3:49 PM EDT Please notify patient that his labs are all OK. Stay on the same medications and follow up in 6 months as planned George Vaughan MD documented in this encounterPremier Health Atrium Medical Center04-10-2025 Telephone encounter Note * Telephone Encounter - George Vaughan MD - 08/29/2024 3:49 PM EDT Please notify patient that his labs are all OK. Stay on the same medications and follow up in 6 months as planned George Vaughan MD [facility]04-04-2025 Telephone encounter Note* Telephone Encounter - Sveta Gomes LPN - 08/23/2024 1:33 PM EDT TC to who voiced understanding. Is agreeable to being seen in the autonomic clinic, please assist in scheduling. Sveta Gomes LPN [facility]04-04-2025 Miscellaneous Notes* Telephone Encounter - [...] sent in patient interested. documented in this encounterPremier Health Atrium Medical Center04-04-2025 Telephone encounter Note * Telephone [...] pressure regulation. Referral sent in patient interested. [facility]04-02-2025 Telephone encounter Note* Telephone Encounter - José Luis Castro LPN - 08/21/2024 1:37 PM EDT Called and spoke to staff nurse, nurse will talk to Dr. Arguello and call back. José Luis Castro LPN August 21, 2024 1:37 PM [facility]04-02-2025 Miscellaneous Notes* Telephone Encounter - [...] florinef? Jessy Weldon PA-C documented in this encounterPremier Health Atrium Medical Center04-02-2025 Telephone encounter Note * Telephone Encounter - Jessy Weldon PA-C - 08/21/2024 1:17 PM EDT Are we able to call Dr. Arguello's office and update Dr. Arguello. Patient was unable to tolerate decrease in amlodopine to 5mg once a day and had elevated BP. Still having daily lightheadedness, suggestions on starting florinef? Jessy Weldon PA-C [facility]04-02-2025 Instructions* Patient Instructions* Jessy Weldon PA-C - 08/21/2024 12:51 PM EDT Increase water intake to 60 ounces a day Continue with exercise and physical therapy Follow up with Dr. Strange in 3-4 months documented in this encounterPremier Health Atrium Medical Center04-02-2025 NoteHNO ID: [id number] Author: JOSÉ LUIS CASTRO LPN Service: ? Author Type: LICENSED NURSE Type: Progress Notes Filed: 08/21/2024 13:18 Note Text:[facility]04-02-2025 History of Present illness Narrative* José Luis Castro LPN - 08/21/2024 12:26 PM EDT * Jessy Weldon PA-C - 08/21/2024 12:23 PM EDT Images from the original note were not included. [facility] Name: Rony Monzon Age: [...] daily. 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 [...] therapy for his back and balance but isonly had 1 appointment for this. Otherwise has difficulty with activity due to the dizziness. 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 Anemia Nontoxic Multinodular [...] Suh CARDIAC CATH N/A 02/02/2015 Completed at [facility] COLONOSCOPY FLX DX W/COLLJ SPEC WHEN PFRMD 07/11/12 Colonoscopy COLONOSCOPY FLX DX W/COLLJ SPEC WHEN PFRMD 02/24/2017 Colonoscopy COLONOSCOPY W/BIOPSY SINGLE/MULTIPLE 03/29/06 ESOPHAGOGASTRODUODENOSCOPY TRANSORAL DIAGNOSTIC 02/24/2017 EGD SHARP W/O FACETEC FORAMOT/DSC 1/[address] Cole PAST SURGICAL HISTORY OF Right 2007 knee surgery RPR TUNICA VAGINALIS HYDROCELE BOTTLE TYPE STENT PLACEMENT 08/2010 [facility] VASECTOMY UNI/BI SPX W/POSTOP SEMEN EXAMS Social [...] 4.00 k/uL Monocytes % 8.8 % Abs [place] 0.78 <0.87 k/uL Eosinophils % 3.3 % [...] DATE OF EXAM: Dec 01 2021 8:42AM [facility] 0294 - MRI BRAIN WO IVCON [...] vertebrae with counting from the craniocervical junction. Marriage And Family Counselor: PSCB Transcribe Date/Time: Dec 01 2021 9:30A Dictated [...] al. J Am Viviana Radiol 12:143-150; 2015 Marriage And Family Counselor: KENTRELL Transcribe Date/Time: Apr 26 2016 5:19P Dictated by : RAD CHAUHAN MD This examination was interpreted and the report reviewed and electronically signed by: RAD CHAUHAN MD on Apr 26 2016 5:32PM EST This note was dictated using [employer] speech recognition software and may contain some [...] which included preparing to see the patient, [id number] patient care, completing clinical documentation, obtaining and/or reviewing separately obtained history, performing a medically appropriate examination, counseling and educating the pat ient/family/caregiver, and ordering medications, tests, or procedures. documented in this encounterPremier Health Atrium Medical Center04-02-2025 NoteHNO ID: [id number] Author: JESSY WELDON PA-C Service: ? Author Type: Physician Elastic Cutter Type: Progress Notes Filed: 08/21/2024 13:18 Note Text: [facility] Name: Rony Monzon Age: [...] daily. 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 [...] as well. Originally, when seen by Dr. Strnage last January there was thought of decreasing [...] went up too muc (more content not included)...[facility]03-10-2025 Discharge summary [facility] Medical Records Department [address] [place] [address] Discharge Summary 07/29/24 1413 MR#: [id number] Acct: [id number] Name: RONY MONZON Rep #:[id number] : 1940 84 From: Nawaf Leblanc DO PCP: Dr. George Vaughan MD Status:[facility] Location: [place] [address] Providers Date of Admission: 07/28/24 Primary Care [...] (Auto) 69.4, Lymph % (Auto) 14.7 L, Upshur % (Auto) 9.9, Eos % (Auto) 4.7, [...] Self Care Charges/Coding Visit Charges Inpatient E&M: 12987 Disch Hosp 07/29/24 1417 Cosigner Signature (if applicable): CC: Dr. Nawaf Leblanc DO; Dr. George Vaughan MD~ Signed [facility]03-10-2025 [facility] Medical Records Department [address] [place] [address] Discharge Summary 07/29/24 1413 MR#: [id number] Acct: [id number] Name: RONY MONZON Rep #: [id number] : 1940 84 From: Nawaf Leblanc DO PCP: Dr. George Vaughan MD Status:ADM [facility] Location: [place] [address] Providers Date of Admission: 07/28/24 Primary Care [...] (Auto) 69.4, Lymph % (Auto) 14.7 L, [place] % (Auto) 9.9, Eos % (Auto) 4.7, [...] Care Charges/Coding Visit Charges Inpatient E M: 36957 Disch Hosp 07/29/24 1417 Cosigner Signature (if applicable): CC: Dr. Nawaf Leblanc DO; Dr. George Vaughan MD [facility] Progress note [facility] Medical Records Department [address] [place] [address] Progress Note - Hospitalist 07/29/24901 MR#: [id number] Acct: [id number] Name: RONY MONZON Rep #:[id number] : 1940 84 From: Nawaf Leblanc DO PCP: Dr. George Vaughan MD Status:AD M [facility] Location: [place] [address] Reason for Visit Reason for Visit: Diagnoses [...] (Auto) 76.6 H, Lymph % (Auto) 12.4L, [place] % (Auto) 6.0, Eos % (Auto) 3.9, [...] (Auto) 69.4, Lymph % (Auto) 14.7 L, [place] % (Auto) 9.9, Eos % (Auto) 4.7, [...] 07/28/24 10:25 IMPRESSION: NEGATIVE CHEST. Reading Location: [facility] Rhythm Strip Rhythm Strip: Sinus bradycardia Rate: [...] Cosigner Signature (if applicable): CC: ~ Signed [facility]03-10-2025 Progress note Author Nawaf Leblanc [facility] Note Date/Time July 29, 2024 2:1 3pm [facility] Medical Records Department [address] [place] [address] Progress Note - Hospitalist 07/29/24901 MR#: [id number] Acct: [id number] Name: RONY MONZON Rep #:[id number] : 1940 84 From: Nawaf Leblanc DO PCP: Dr. George Vaughan MD Status:AD M [facility] Location: [place] [address] Reason for Visit Reason for Visit: Diagnoses [...] (Auto) 76.6 H, Lymph % (Auto) 12.4L, [place] % (Auto) 6.0, Eos % (Auto) 3.9, [...] (Auto) 69.4, Lymph % (Auto) 14.7 L, [place] % (Auto) 9.9, Eos % (Auto) 4.7, [...] 07/28/24 10:25 IMPRESSION: NEGATIVE CHEST. Reading Location: [facility] Rhythm Strip Rhythm Strip: Sinus bradycardia Rate: [...] Cosigner Signature (if applicable): CC: ~ Signed [facility] Work Phone: [phone] 234-551303-09-2025 History and physical note Author [facility] Note Date/Time July 28, 2024 4:35 pm [facility] Medical Records Department [address] [place] [address] H&P Exam - Hospitalist 07/28/24 1627 MR#: [id number] Acct: [id number] Name: RONY MONZON Rep #:[id number] : 1940 84 From: Nini Brown MD PCP: Dr. George Vaughan MD Status:AD M [facility] Location: [place] [address] HPI - General General Date of Admission: [...] managed for chest pain to rule outACS. 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 Reading Location: [facility] Assessment & Plan Assessment/Plan (1) Chest pain: [...] elects to be full code. * Total gwxh-ua-oueb time 16 minutes. Charges/Coding Visit Charges Inpatient E&M: 82524 Init Hosp L2 Procedures Hospitalists Procedures: 54372 Advncd Care Plan 30 Min 07/28/24 1635 <Electronically signed by Nini Brown MD> Cosigner Signature (if applicable): CC: Dr. George Vaughan MD; Dr. Nini Brown MD~ Signed [facility] Work Phone: [phone]) 365-151803-09-2025 History and physical note [facility] Medical Records Department [address] [place] [address] H&P Exam - Hospitalist 07/28/24 1627 MR#: [id number] Acct: [id number] Name: RONY MONZON Rep #:[id number] : 1940 84 From: Nini Brown MD PCP: Dr. George Vaughan MD Status:AD M [facility] Location: [facility] [id number] HPI - General General Date of [...] managed for chest pain to rule outACS. 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 Reading Location: [facility] Assessment & Plan Assessment/Plan (1) Chest pain: [...] elects to be full code. * Total epmi-to-npbv time 16 minutes. Charges/Coding Visit Charges Inpatient E&M: 61879 Init Hosp L2 Procedures Hospitalists Procedures: 19671 Advncd Care Plan 30 Min 07/28/24 1635 Cosigner Signature (if applicable): CC: Dr. George Vaughan MD; Dr. Nini Brown MD~ Signed [facility]03-09-2025 Evaluation note* Diagnosis Onset Date Resolution Status Admit Date Chest pain acute July 28 12:10pm [facility] Work Phone: 1(895) 673-548203-09-2025 Evaluation note* Diagnosis Onset Date Resolution Status Admit Date Chest pain resolved July 28 12:10pm [facility] Work Phone: 1(309) 767-416103-09-2025 Discharge summary Author David Doll [facility] Note Date/Time July 28, 2024 12:0 1pm [facility] Medical Records Department [address] [place] [address] Emergency Department Summary 07/28/24 MR#: [id number] Acct: [id number] Name: RONY MONZON Rep #:[id number] : 1940 84 From: David Doll MD [...] TAD Risk Factors: Negative for Marfan's Syndrome [facility] Medical History COVID-19 (~01/18/22) Sepsis due to [...] breath Dyspnea Precordial chest pain 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 [facility] use of drug 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 5 out of 5 blanking press operator strength. Dorsi plantarflexion intact. Calves nontender without [...] 76.6 H Lymph % (Auto) 12.4 L [place] % (Auto) 6.0 Eos % (Auto) 3.9 [...] 07/28/24 10:25 IMPRESSION: NEGATIVE CHEST. Reading Location: [facility] Chest x-ray, portable, 2 films, interpreted by myself shows normal cardiac silhouette. Normal lung hutson. No acute process. Chronic changes. Rhythm Strip Rhythm Strip: Sinus bradycardia Rate: 57 Ectopy: None EKG Initial EKG: Attestation: I personally reviewed and interpreted this EKG as follows: Interpretation: No Acute Injury Pattern and Sinus Bradycardia Comments: Sinus bradycardia rate of 57 no acute signs of [place] or ischemia. No dysrhythmia. Discharge Plan Triage [...] MD [Primary Care Provider] - Print Language: [place] Disposition Disposition: Acute Care Hospital [facility] What to do if you have Problems For any increased pain, shortness of breath, bleeding, nausea or vomiting, chestpain, or any unexpected problems, contact your Primary Care Provider. Call [facility] ([phone]) or report to the closest Emergency Room. Call 911 if necessary. 07/28/24 1201 <Electronically signed by David Doll MD> Cosigner Signature (if applicable): CC: Dr. 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 5 out of 5 blanking press operator strength. Dorsi plantarflexion intact. Calves nontender without [...] 76.6 H Lymph % (Auto) 12.4 L [place] % (Auto) 6.0 Eos % (Auto) 3.9 [...] 07/28/24 10:25 IMPRESSION: NEGATIVE CHEST. Reading Location: [facility] Chest x-ray, portable, 2 films, interpreted by myself shows normal cardiac silhouette. Normal lung hutson. No acute process. Chronic changes. Rhythm Strip Rhythm Strip: Sinus bradycardia Rate: 57 Ectopy: None EKG Initial EKG: Attestation: I personally reviewed and interpreted this EKG as follows: Interpretation: No Acute Injury Pattern and Sinus Bradycardia Comments: Sinus bradycardia rate of 57 no acute signs of [place] or ischemia. No dysrhythmia. Discharge Plan Triage [...] MD [Primary Care Provider] - Print Language: [place] Disposition Disposition: Acute Care Hospital [facility] What to do if you have Problems For any increased pain, shortness of breath, bleeding, nausea or vomiting, chestpain, or any unexpected problems, contact your Primary Care Provider. Call [facility] ([phone]) or report tothe closest Emergency Room. Call 911 if necessary. 07/28/24 1201 Cosigner Signature (if applicable): CC: Dr. George Vaughan MD ~ Signed [facility]03-09-2025 Radiology Diagnostic study note [facility] Imaging Services [address] [place] [address] Chest 1 View (Portable) MR#: [id number] Acct: [id number] Name: RONY MONZON Rep #: [id number] : 1940 M 84 From: Fina Johnston MD PCP: Dr. George Vaughan MD Status: RE G ER Study:Chest 1 View (Portable) Date of Exam: 07/28/24 Exam# [id number] Ordering Dr: Betsy Doll MD PROCEDURE: CHEST [...] View (Portable) IMPRESSION: NEGATIVE CHEST. Reading Location: [facility] CC: Dr. David Doll MD; Dr. George Vaughan MD ~ Marriage And Family Counselor: Signed [facility]03-04-2025 History of Present illness Narrative* George Vaughan [...] Suh CARDIAC CATH N/A 02/02/2015 Completed at [facility] COLONOSCOPY FLX DX W/COLLJ SPEC WHEN PFRMD 07/11/12 Colonoscopy COLONOSCOPY FLX DX W/COLLJ SPEC WHEN PFRMD 02/24/2017 Colonoscopy COLONOSCOPY W/BIOPSY SINGLE/MULTIPLE 03/29/06 ESOPHAGOGASTRODUODENOSCOPY TRANSORAL DIAGNOSTIC 02/24/2017 EGD SHARP W/O FACETEC FORAMOT/DSC 05/[address] Cole PAST SURGICAL HISTORY OF Right 2007 knee surgery RPR [place]UN[place] VAGINALIS HYDROCELE BOTTLE TYPE STENT PLACEMENT 08/2010 [facility] VASECTOMY UNI/BI SPX W/POSTOP SEMEN EXAMS Family [...] HEMOGLOBIN A1C 4. Coronary artery disease involving [place] heart without angina pectoris, unspecified vessel or [...] PHYSICAL THERAPY Rx to get PT at [facility] to work on strengthening, gait, balance, back pain Follow up in 6 months Medical Decision Making: Problems: Moderate: 2+ stable chronic illnesses Risk: Moderate: Drug management Medical Decision Making Level: 4 - Moderate George Vaughan MD documented in this encounterPremier Health Atrium Medical Center03-04-2025 NoteHNO ID: [id number] Author: GEORGE VAUGHAN MD Service: ? Author [...] 5 mg 1 pill BID. Follows with [facility] at least annually. Needs to [...] Suh CARDIAC CATH N/A 02/02/2015 Completed at [facility] COLONOSCOPY FLX DX W/COLLJ SPEC WHEN PFRMD 07/11/12 Colonoscopy COLONOSCOPY FLX DX W/COLLJ SPEC WHEN PFRMD 02/24/2017 Colonoscopy COLONOSCOPY W/BIOPSY SINGLE/MULTIPLE 03/29/06 ESOPHAGOGASTRODUODENOSCOPY TRANSORAL DIAGNOSTIC 02/24/2017 EGD SHARP W/O FACETEC FORAMOT/DSC / VRT SGM CRV Dr Cole PAST SURGICAL HISTORY OF Right 2007 knee surgery RPR T[place] VAGINALIS HYDROCELE BOTTLE TYPE STENT PLACEMENT 08/2010 [facility] VASECTOMY UNI/BI SPX W/POSTOP SEMEN EXAMS Family [...] Smoking status: Former Cu (more content not included)...[facility]01-06-2025 Miscellaneous Notes* Telephone Encounter - George Vaughan [...] mouth two times a day. Martha Andrade [facility] May 27, 2024 3:29 PM documented in this encounterPremier Health Atrium Medical Center01-06-2025 Telephone encounter Note * Telephone Encounter - George Vaughan MD - 05/27/2024 5:54 PM EST OK to refill as ordered George Vaughan MD [facility]01-06-2025 Telephone encounter Note* Telephone Encounter - Martha Inman - 05/27/2024 [...] mouth two times a day. Martha Andrade Pss May 27, 2024 3:29 PM [facility]12-26-2024 NoteHNO ID: [id number] Author: AMA BRIAN APRN.FRONT DESK ADMIN Service: ? Author Type: Nurse Practitioner Type: [...] Suh CARDIAC CATH N/A 02/02/2015 Completed at [facility] COLONOSCOPY FLX DX W/COLLJ SPEC WHEN PFRMD 07/11/12 Colonoscopy COLONOSCOPY FLX DX W/COLLJ SPEC WHEN PFRMD 02/24/2017 Colonoscopy COLONOSCOPY W/BIOPSY SINGLE/MULTIPLE 03/29/06 ESOPHAGOGASTRODUODENOSCOPY TRANSORAL DIAGNOSTIC 02/24/2017 EGD [place]ARP W/O FACETEC FORAMOT/DSC 1/[address] Cole PAST SURGICAL HISTORY OF Right 2007 knee surgery RPR [place] VAGINALIS HYDROCELE BOTTLE TYPE STENT PLACEMENT 08/2010 [facility] VASECTOMY UNI/BI SPX W/POSTOP SEMEN EXAMS ALLERGIES [...] OFLOXACIN 0.3 % EAR DROPS Ama Brian APRN.CNPDet[facility]12-26-2024 History of Present illness Narrative* Ama Brian APRN.FRONT DESK ADMIN - 05/16/2024 3:13 PM EST Subjective HPI [...] Suh CARDIAC CATH N/A 02/02/2015 Completed at [facility] COLONOSCOPY FLX DX W/COLLJ SPEC WHEN PFRMD 07/11/12 Colonoscopy COLONOSCOPY FLX DX W/COLLJ SPEC WHEN PFRMD 02/24/2017 Colonoscopy COLONOSCOPY W/BIOPSY SINGLE/MULTIPLE 03/29/06 ESOPHAGOGASTRODUODENOSCOPY TRANSORAL DIAGNOSTIC 02/24/2017 EGD SHARP W/O FACETEC FORAMOT/DSC / VRT SGM CRV Dr Cole PAST SURGICAL HISTORY OF Right 2007 knee surgery RPR TUNICA VAGINALIS HYDROCELE BOTTLE TYPE STENT PLACEMENT 08/2010 [facility] VASECTOMY UNI/BI SPX W/POSTOP SEMEN EXAMS ALLERGIES [...] OFLOXACIN 0.3 % EAR DROPS Ama Brian APRN.FRONT DESK ADMIN documented in this encounterPremier Health Atrium Medical Center12-11-2024 Telephone encounter Note * Telephone Encounter - Jessy Weldon PA-C - 05/01/2024 8:16 AM EST Are we able to reach out to Dr. Arguello's office and ask if he would be amenable to this patient starting florinef for orthostatic hypotension. Jessy Weldon PA-C [facility]12-11-2024 Miscellaneous Notes* Telephone Encounter - Jessy Weldon PA-C - 05/01/2024 8:16 AM EST Are we able to reach out to Dr. Arguello's office and ask if he would be amenable to this patient starting florinef for orthostatic hypotension. Jessy Weldon PA-C documented in this encounterPremier Health Atrium Medical Center12-10-2024 Instructions* Patient Instructions* Jessy Weldon PA-C - 04/30/2024 1:01 PM EST Increase water intake to 60 ounces a day Will reach out to Dr. Strange about starting florinef Compression socks, increase exercise at home Follow up in 3-4 months documented in this encounterPremier Health Atrium Medical Center12-10-2024 NoteHNO ID: [id number] Author: JESSY WELDON PA-C Service: ? Author Type: Physician Elastic Cutter Type: Progress Notes Filed: 04/30/2024 13:28 Note [...] given cardiac history, would like opinion of area development consultant Dr. Arguello. Question if benefit in lowering [...] to follow up with his surgeons at [facility]. 8. History of stroke - ICD9: V12.54, [...] bruising easily or swoll (more content not included)...[facility] 04-30-2024 History of Present illness Narrative* Jessy [...] given cardiac history, would like opinion of area development consultant Dr. Arguello. Question if benefit in lowering [...] to follow up with his surgeons at [facility]. 8. History of stroke - ICD9: V12.54, [...] dysarthria; comprehension, naming, repetition intact. Short and half-way memory intact. CN: PERRL, fundi appear normal [...] which included preparing to see the patient, izbn-zs-ckef patient care, completing clinical documentation, obtaining and/or reviewing separately obtained history, performing a medically appropriate examination, counseling and educating the pat ient/family/caregiver, and ordering medications, tests, or procedures. This document has been created with the use of voice recognition technology. It may contain inaccuracies: (e.g. misspellings, inaccurate syntax or word sense) that have escaped review. documented in this encounterPremier Health Atrium Medical Center11-08-2024 Telephone encounter Note * Telephone Encounter - Charlene Eckert RN - 03/29/2024 3:33 PM EST Spoke to Halima who recommended having this form filled out by Jessy Weldon PA-C or Dr. Strange.Halima has not seen this patient since since she no longer practices in [place]. Sent form via fax to [place] at [phone]. [facility]11-08-2024 Miscellaneous Notes* Telephone Encounter - Charlene Eckert RN - 03/29/2024 3:33 PM EST Spoke to Halima who recommended having this form filled out by Jessy Weldon PA-C or Dr. Strange.Halima has not seen this patient since since she no longer practices in [place]. Sent form via fax to [facility] at [phone]. * Telephone Encounter - Charlene Eckert RN - 03/29/2024 3:19 PM EST Received fax from [facility] requesting to hold patient's Plavix for 7 days. Procedure date is 04-12-24. Form given to provider for review. documented in this encounterPremier Health Atrium Medical Center11-08-2024 Telephone encounter Note * Telephone Encounter - Charlene Eckert RN - 03/29/2024 3:19 PM EST Received fax from [facility] requesting to hold patient's Plavix for 7 days. Procedure date is 04-12-24. Form given to provider for review. [facility]10-09-2024 Telephone encounter Note* Telephone Encounter [...] Castrejon LPN February 28, 2024 1:45 PM [facility]10-09-2024 Miscellaneous Notes* Telephone Encounter - [...] 28, 2024 1:45 PM documented in this encounterPremier Health Atrium Medical Center10-04-2024 Telephone encounter Note * Telephone Encounter - Ana Tong MA - 02/23/2024 10:01 AM EDT Message left on machine that placard is at med rec for warehouse order picker. Also notified via [employer]. Ana Tong MA [facility]10-04-2024 Miscellaneous Notes* Telephone Encounter - Ana Tong MA - 02/23/2024 10:01 AM EDT Message left on machine that placard is at med rec for warehouse order picker. Also notified via [employer]. Ana Tong MA * Telephone Encounter - Ana Tong MA - 02/22/2024 10:00 AM EDT Awaiting response from pt on if he wants to warehouse order picker or have mailed. Ana Tong MA * Telephone Encounter - George Vaughan MD - 02/22/2024 8:46 AM EDT Rx for handicap parking placard printed George Vaughan MD documented in this encounterPremier Health Atrium Medical Center10-03-2024 Telephone encounter Note * Telephone Encounter - Ana Tong MA - 02/22/2024 10:00 AM EDT Awaiting response from pt on if he wants to warehouse order picker or have mailed. Ana Tong MA [facility]10-03-2024 Telephone encounter Note* Telephone Encounter - George Vaughan MD - 02/22/2024 8:46 AM EDT Rx for handicap parking placard printed George Vaughan MD [facility]09-06-2024 History of Present illness Narrative* Mallorie Vaughn OCCA - 01/26/2024 2:00 PM EDT Office [...] overthe last couple months. Surgery completed at [facility]. Feels like arms are working ok. Known [...] Wt 97.7 kg (215 lb 6.4 oz) VlA310% BMI 28.42 kg/m GENERAL EXAM: General appearance: [...] given cardiac history, would like opinion of area development consultant Dr. Arguello. Question if benefit in lowering [...] to follow up with his surgeons at [facility]. 8. History of stroke - ICD9: V12.54, [...] which included preparing to see the patient, qbbh-ut-gaze patient care, completing clinical documentation, obtaining and/or reviewing separately obtained history, performing a medically appropriate examination, counseling and educating the pat ient/family/caregiver, ordering medications, tests, or procedures, independently interpreting results (not separately reported), and communicating results to the patient/family/caregiver. documented in this encounterPremier Health Atrium Medical Center08-10-2024 History of Present illness Narrative* [...] 5 mg 1 pill BID. Follows with [facility]. Tremors: Follows with Neuro, taking [...] 02/02/2015: CARDIAC CATH; N/A Comment: Completed at [facility] 07/11/12: COLONOSCOPY FLX DX W/COLLJ SPEC WHEN PFRMD Comment: Colonoscopy 02/24/2017: COLONOSCOPY FLX DX W/COLLJ SPEC WHEN PFRMD Comment: Colonoscopy 03/29/06: COLONOSCOPY W/BIOPSY SINGLE/MULTIPLE 02/24/2017: ESOPHAGOGASTRODUODENOSCOPY TRANSORAL DIAGNOSTIC Comment: EGD : SHARP W/O FACETEC FORAMOT/DSC / VRT SGM CRV Comment: Dr Cole 2006: PAST SURGICAL HISTORY OF; Right Comment: knee surgery No date: RPR TUNICA VAGINALIS HYDROCELE BOTTLE TYPE 08/2010: STENT PLACEMENT Comment: [facility] No date: VASECTOMY UNI/BI SPX W/POSTOP SEMEN [...] 11/27/2023 1.29 Monocytes % 11/27/2023 8.8 Abs U[place] 11/27/2023 0.78 Eosinophils % 11/27/2023 3.3 Abs [...] 702.0, ICD10: L57.0 He will follow with [facility] [employer] [facility]ine 5. Tremor - ICD9: 781.0, ICD10: R25.1 Stable Follow up in 6 months I agree with the Chief Complaint, ROS, and Past Histories independently gathered by the clinical computer customer support specialist and the remaining scribed note [...] Tong MA acting as scribe for George Vaughan MD. December 30, 2023 10:25 AM. Ana Tong MA documented in this encounterPremier Health Atrium Medical Center07-16-2024 Telephone encounter Note * Telephone Encounter - Adore Winchester MA - 12/05/2023 5:01 PM EDT The following approved medication requests have been transmitted electronically. Requested Prescriptions Signed Prescriptions Disp Refills amoxicillin (AMOXIL) 500 mg capsule 4 capsule 4 Si capsules 1 hours prior to dental procedure. Authorizing Provider: BETTINA LIZARRAGA MA Tere notified. [facility]07-16-2024 Miscellaneous Notes* Telephone Encounter - [...] week and needs his antibiotic sent to [facility] in [place]. Francheska Astudillo RN documented in this encounterPremier Health Atrium Medical Center07-16-2024 Telephone encounter Note * Telephone Encounter - Cherelle Key RN - 12/05/2023 3:16 PM EDT Sending request to care team for refill. [facility] [facility]07-16[facility] Telephone encounter Note* Telephone Encounter - Francheska Astudillo RN - 12/05/2023 3:12 PM EDT Tere called, verified Rony by name and date of . Tere advised that Rony has a dental appointment next week and needs his antibiotic sent to [facility] in [place]. Francheska Astudillo RN [facility]07-09-2024 Telephone encounter Note* Telephone Encounter - Zander Chavez APRN.CNP - 11/28/2023 11:49 AM EDT The following approved medication requests have been transmitted electronically. Requested Prescriptions Pending Prescriptions Disp Refills propranolol (INDERAL) 20 mg tablet 180 tablet 0 Sig: Take 1 tablet by mouth two times a day. Zander Chavez APRN.CNP [facility]07-09-2024 Miscellaneous Notes* Telephone Encounter - [...] 28, 2023 11:38 AM documented in this encounterPremier Health [facility]07-09-2024 Telephone encounter Note * Telephone [...] Carline Crandall November 28, 2023 11:38 AM [facility]05-29-2024 Instructions* Patient Instructions* Jessy Weldon [...] Strange in 3-4 months documented in this encounterPremier Health [facility]05-29-2024 History of Present illness Narrative* Jessy Weldon PA-C - 10/18/2023 11:01 AM EDT ESTABLISHED PATIENT VISIT Last visit: 05/16/24 ASSESSMENT/PLAN: 1. Frequent falls - ICD9: V15.88, ICD10: R29.6 (primary diagnosis) Likely multifactorial, patient with history of lumbar stenosis with recent surgery in January through the [facility]. Reporting weakness in his lower legs and [...] and understand. Encourage close follow-up with neurosurgery [facility]. 2. Tremor of right hand - ICD9: [...] 724.02, ICD10: M48.061 Monitored and managed through [facility], recent lumbar surgery in January. Patient had [...] which included preparing to see the patient, [id number] patient care, completing clinical documentation, obtaining and/or reviewing separately obtained history, performing a medically appropriate examination, counseling and educating the pat ient/family/caregiver, and ordering medications, tests, or procedures. This document has been created with the use of voice recognition technology. It may contain inaccuracies: (e.g. misspellings, inaccurate syntax or word sense) that have escaped review. documented in this encounterPremier Health [facility]05-21-2024 Telephone encounter Note * Telephone Encounter - Sveta Gomes LPN - 10/10/2023 3:04 PM EDT Form completed and faxed back. Sveta Gomes LPN [facility]05-21-2024 Miscellaneous Notes* Telephone Encounter - Sveta Gomes LPN - 10/10/2023 3:04 PM EDT Form completed and faxed back. Sveta Gomes LPN * Telephone Encounter - Jessy Hutchison RN - 10/09/2023 1:48 PM EDT Received fax from Halima Harvey CNP requesting clopidogrel instructions for a pain managementprocedure. Forwarded to Jessy Weldon PA-C's [facility]. Fax transmission confirmed. documented in this encounterPremier Health [facility]05-20-2024 Telephone encounter Note * Telephone Encounter - Jessy Hutchison RN - 10/09/2023 1:48 PM EDT Received fax from Halima Harvey CNP requesting clopidogrel instructions for a pain managementprocedure. Forwarded to Jessy Weldon PA-C's [facility]. Fax transmission confirmed. [facility]05-17-2024 Telephone encounter Note* Telephone Encounter - Ashley Hinds OCCA - 10/06/2023 7:56 AM EDT Received fax from [facility], [facility] for request to hold clopidogrel for procedure on 10/13/2023. Given to provider for review. [facility] 02/28/2023 [facility]05-17-2024 Miscellaneous Notes* Telephone Encounter - Ashley Hinds OCCA - 10/06/2023 7:56 AM EDT Received fax from [facility], [facility] for request to hold clopidogrel for procedure on 10/13/2023. Given to provider for review. [facility] 02/28/2023 documented in this encounterPremier Health [facility]04-30-2024 History of Present illness Narrative* [...] PATIENT PRESENTS WITH AN IMPLANTABLE OR ATTACHED EVALUATION ASSISTANT: No RADIOLOGY DEPARTMENT: General X-ray: Exam(s) Completed: Lower Extremity X- Ray(s): Foot, Left PERIPHERAL IV DATA: Not applicable SIGNED BY: RT Óscar(R) September 19, 2023 11:38 AM documented in this encounterPremier Health [facility]04-10-2024 Miscellaneous Notes* Telephone Encounter - Zander Chavez APRN.CNP - 08/30/2023 2:42 PM EDT The following approved medication requests have been transmitted electronically. Requested Prescriptions Pending Prescriptions Disp Refills propranolol (INDERAL) 20 mg tablet 180 tablet 0 Sig: Take 1 tablet by mouth two times a day. Zander Chavez APRN.CNP * Telephone Encounter - Yessenia Cortez LPN [...] you. Yessenia Cortez LPN. documented in this encounterPremier Health [facility]04-01-2024 History of Present illness Narrative* [...] PATIENT PRESENTS WITH AN IMPLANTABLE OR ATTACHED EVALUATION ASSISTANT: No RADIOLOGY DEPARTMENT: General X-ray: Exam(s) Completed: Lower Extremity X- Ray(s): Foot, Left PERIPHERAL IV DATA: Not applicable SIGNED BY: RT Óscar(R) August 21, 2023 2:59 PM documented in this encounterPremier Health [facility]04-01-2024 Instructions* Patient Instructions* Omar Concepcion - 08/21/2023 2:26 PM EDT Continue with boot and rollator. Can ambulate as tolerated in boot Would benefit from heel lift or shoe adaptor for discrepancy when using boot Check xray today and again in 3-4 weeks Will check ultrasound to assure no blood clot Order for handicapped Powerstep Original Full length. Can purchase at [facility] [employer] and boots,shoes and more here in [place], [employer] in [place] or [place]. Also can find in [place] in [facility]. Powersteps can also be purchased online, starting [...] everything fits well together documented in this encounterPremier Health [facility]04-01-2024 History of Present illness Narrative* [...] Suh CARDIAC CATH N/A 02/02/2015 Completed at [facility] COLONOSCOPY FLX DX W/COLLJ SPEC WHEN PFRMD 07/11/12 Colonoscopy COLONOSCOPY FLX DX W/COLLJ SPEC WHEN PFRMD 02/24/2017 Colonoscopy COLONOSCOPY W/BIOPSY SINGLE/MULTIPLE 03/29/06 ESOPHAGOGASTRODUODENOSCOPY TRANSORAL DIAGNOSTIC 02/24/2017 EGD SHARP W/O FACETEC FORAMOT/DSC / VRT SGM CRV Dr Cole PAST SURGICAL HISTORY OF Right 2007 knee surgery RPR [place] VAGINALIS HYDROCELE BOTTLE TYPE STENT PLACEMENT 08/2010 [facility] VASECTOMY UNI/BI SPX W/POSTOP SEMEN EXAMS FAMILY [...] inserts Omar Concepcion DPM Podiatry [address] [facility] [address] Dept: [phone] Dept * Narayan Hameed RN - 08/21/2023 1:58 PM EDT Patient presents with: Left Foot - Established Patient, Fracture Patient presents for Closed nondisplaced fracture of fifth metatarsal bone of left foot that occurred after a fall on 08/07/23. States he only has pain when walking. Currently has a boot and has been using a Rolator. documented in this encounterPremier Health [facility]04-01-2024 Miscellaneous Notes* Telephone Encounter - Narayan Hameed RN - 08/21/2023 8:28 AM EDT Images from the original note were not included. Omar Concepcion You 2 days ago I would keep appointment [...] appointment? Patientcurrently in boot. documented in this encounterPremier Health [facility]03-26-2024 Miscellaneous Notes* Telephone Encounter - [...] month due to a hip surgery. Pharmacy: [facility] Patient has been identified by name and birthdate. Duration of symptoms: N/A Person calling: self Call patient at: at home [phone] (home) Was an appointment scheduled: No Closing statement: Radha Lobo documented in this encounterPremier Health [facility]03-22-2024 History of Present illness Narrative* [...] PATIENT PRESENTS WITH AN IMPLANTABLE OR ATTACHED EVALUATION ASSISTANT: No RADIOLOGY DEPARTMENT: General X-ray: Exam(s) Completed: Lower Extremity X- Ray(s): Foot, Left PERIPHERAL IV DATA: Not applicable SIGNED BY: RT Óscar(R) August 11, 2023 1:06 PM documented in this encounterPremier Health [facility]03-22-2024 History of Present illness Narrative* Zander Chavez APRN.FRONT DESK ADMIN - 08/11/2023 12:40 PM EDT Chief Complaint [...] the left fifth metatarsal. Patient placed in [facility] Boot, referred to podiatry. - CONSULT TO PODIATRY 2. Foot pain, left - ICD9: 729.5, ICD10: M79.672 - XR FOOT GENERAL 3V AP/LAT/OBL LEFT 3. Pain of toe of left foot - ICD9: 729.5, ICD10: M79.675 - XR FOOT GENERAL 3V AP/LAT/OBL LEFT Zander Chavez APRN.FRONT DESK ADMIN This note was partly generated using [employer] voice recognition dictation and may contain some misspelled or inaccurate words missed on review. documented in this encounterPremier Health [facility]12-20-2023 Miscellaneous Notes* Telephone Encounter - Flavia Zhang - 05/10/2023 10:47 AM EST 1st call attempt, pt answered then hung up on me * Telephone Encounter - Mallorie Vaughn OCCA - 05/10/2023 9:54 AM EST TC [...] function. George Vaughan MD documented in this encounterPremier Health [facility]11-27-2023 Progress note Author Nini [facility] April 17, 2023 4:08pm Note Date/Time April 17, 2023 1:46pm [facility] Medical Records Department [address] [place] [id number] Progress Note 04/17/23 1344 MR#: [id number] Acct: [id number] Name: RONY MONZON Rep #:[id number] : 1940 82 From: Nini Brown MD PCP: Dr. George Vaughan MD Status:[facility] Location: [place] [address] Subjective Subjective Patient seen and examined. HE [...] Intake and Output for Last 24 Hours 11/25/23 11/26/23 11/27/23 23:59 23:59 23:59 Intake Total 590 / [...] (Auto) 70.2 H, Lymph % (Auto) 15.0L, [place] % (Auto) 10.3 H, Eos % (Auto) [...] on lovenox Charges/Coding Visit Charges Inpatient E&M: 13613 Subs Hosp L2 04/17/23 1608 <Electronically signed by Nini Brown MD> Nini Brown MD Cosigner Signature (if applicable): CC: ~ Signed [facility] Work Phone: 1(145) 936-249211-26-2023 History and physical note Author Juan Pike [facility] April 16, 2023 7:26pm Note Date/Time April 16, 2023 4:59pm [facility] Medical Records Department [address] [place] [address] H&P Exam - Hospitalist 04/16/23 1651 MR#: [id number] Acct: [id number] Name: RONY MONZON Rep #:[id number] : 1940 82 From: Juna Pike MD PCP: Dr. George Vaughan MD Status:AD M IN Location: [facility] [id number] HPI - General General Date of [...] he is taking amlodipine, lisinopril and propranolol. [facility] Medical History Anxiety Arthritis Atherosclerotic heart disease of [place] coronary artery without angina pectoris Benign prostatic [...] catheter present 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 [facility] use of drug Low iron Neck pain [...] (Auto) 76.4 H, Lymph % (Auto)13.6 L, [place] % (Auto) 5.5, Eos % (Auto) 3.1, [...] Talon Betts MD at 12:24 EST , Assessment & Plan Assessment/Plan (1) Chest [...] pressure closely. Charges/Coding Visit Charges Inpatient E&M: 64458 Init Hosp L2 04/16/231925 <Electronically signed by Juan Pike MD> Cosigner Signature (if applicable): CC: Dr. Juan Pike MD; Dr. George Vaughan MD~ Signed [facility] Work Phone: 1(783) 706-755711-26-2023 Discharge summary Author Angel Mix [facility] April 16, 2023 3:16pm Note Date/Time April 16, 2023 11:38am [facility] Medical Records Department [address] [place] [address] Emergency Department Summary 04/16/23 MR#: [id number] Acct: [id number] Name: RONY MONZON Rep #:[id number] : 1940 82 From: Angel Mix DO [...] in the circumflex artery in 2010 at [facility]. He had a normal stress test in May [address] Kramer. He is on Plavix daily. 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 This patient was seen with a PA/BEAD WRAPPER Individually assessed they patient including history and physical. I have reviewed everything on the chart that is availableand agree with the documentation provided by the PA/BEAD WRAPPER including discussion about the assessment, treatment plan, [...] 76.4 H Lymph % (Auto) 13.6 L [place] % (Auto) 5.5 Eos % (Auto) 3.1 [...] 12:24 EST Reading Location ID and State: [facility] / [place] , Service support , Discharge Plan Triage [...] your Primary Care Provider. Call [facility] ([phone]) or report to the closest Emergency Room. Call 911 if necessary. 04/16/23 1516 <Electronically signed by Angel Mix DO> Cosigner Signature (if applicable): 04/16/23 1413 <Electronically signed by Zeina BAIRD> CC: Dr. George Vaughan MD ~ Signed [facility] Work Phone: 1(778) 997-346711-26-2023 Discharge summary Author [facility] April 16, 2023 3:16pm Note Date/Time April 16, 2023 11:38am [facility] Medical Records Department [address] [place] [address] Emergency Department Summary 04/16/23 MR#: [id number] Acct: [id number] Name: RONY MONZON Rep #:[id number] : 1940 82 From: Angel Mix DO [...] in the circumflex artery in 2010 at [facility]. He had a normal stress test in May [address] Kramer. He is on Plavix daily. 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 EKG Initial EKG: Attestation: I personally reviewed and interpreted this EKG as follows: Interpretation: Sinus Rhythm and No Acute Injury Pattern Comments: Normal sinus rhythm at 63 bpm No acute ischemic changes <Dr. Angel Mix, DO - Last Filed: 04/16/23 15:16> [facility] Narrative Medical decision making narrative: History gathered [...] hospitalist. This patient was seen with a PA/BEAD WRAPPER Individually assessed they patient including history and physical. I have reviewed everything on the chart that is availableand agree with the documentation provided by the PA/BEAD WRAPPER including discussion about the assessment, treatment plan, [...] 76.4 H Lymph % (Auto) 13.6 L [place] % (Auto) 5.5 Eos % (Auto) 3.1 [...] 12:24 EST Reading Location ID and State: [facility] / [place] , Service support , Discharge Plan Triage [...] your Primary Care Provider. Call [facility] ([phone]) or report to the closest Emergency Room. Call 911 if necessary. 04/16/23 1516 <Electronically signed by Angel Mix DO> Cosigner Signature (if applicable): 04/16/23 1413 <Electronically signed by Zeina BAIRD> CC: Dr. George Vaughan MD ~ Signed [facility] Work Phone: 1(214) 797-942010-08-2023 Miscellaneous Notes* Telephone Encounter - Deirdre Larios - 02/26/2023 1:43 PM EDT Patient given results and verbalized understanding of instructions given. Deirdre Larios * Telephone Encounter - Sveta Sepulveda APRN.CNP - 02/26/2023 10:03 AM EDT Please reach out and inform patient that his urine culture did not reveal bacterial growth. Please follow up with PCP for continued symptoms. documented in this encounterPremier Health [facility]10-07-2023 Instructions* Patient Instructions* Charlotte Lombardo APRN.CNP - 02/25/2023 10:46 AM EDT Push fluids. Avoid caffeine. Follow-up with your primary care provider in 3 to 5 days if no improvement or sooner if worsening. documented in this encounterPremier Health [facility] Center10-07-2023 History of Present illness Narrative* [...] Suh CARDIAC CATH N/A 02/02/2015 Completed at [facility] COLONOSCOPY FLX DX W/COLLJ SPEC WHEN PFRMD 07/11/12 Colonoscopy COLONOSCOPY FLX DX W/COLLJ SPEC WHEN PFRMD 02/24/2017 Colonoscopy COLONOSCOPY W/BIOPSY SINGLE/MULTIPLE 03/29/06 ESOPHAGOGASTRODUODENOSCOPY TRANSORAL DIAGNOSTIC 02/24/2017 EGD SHARP W/O FACETEC FORAMOT/DSC 05/[address] Cole PAST SURGICAL HISTORY OF Right 2007 knee surgery RPR [place] VAGINALIS HYDROCELE BOTTLE TYPE STENT PLACEMENT 08/2010 [facility] VASECTOMY UNI/BI SPX W/POSTOP SEMEN EXAMS ALLERGIES [...] plan. Charlotte Lombardo APRN.CNP documented in this encounterPremier Health [facility] Center10-03-2023 Miscellaneous Notes* Telephone Encounter - [...] capsule by mouth once daily. Zander Chavez APRN.CNP * Telephone Encounter - Ana Tong Ma [...] notify patient. Carline Crandall documented in this encounterPremier Health [facility] Center09-21-2023 Miscellaneous Notes* Telephone Encounter - Lakeisha Narvaez MA - 02/09/2023 12:59 PM EDT Requested all spine records from [facility] 02/09/23 from [facility] F: [phone]. Lakeisha Narvaez MA documented in this encounterPremier Health [facility]09-05-2023 Miscellaneous Notes* Telephone Encounter - [...] I sent aprescription to the patients pharmacy, [facility], or the dentists office can provide antibiotic. * Telephone Encounter - Kirti Ramirez RN - 01/24/2023 9:30 AM EDT Received call from Savita at [facility] requesting premed clearance for dental exam and possible procedures the patient is having done today. Pt had hip replacement in 2019. Kirti Ramirez RN documented in this encounterPremier Health [facility] Center08-29-2023 Miscellaneous Notes* Telephone Encounter - [...] needs to be faxed to [facility] at [phone]. Last OV in November 03, 2022. Pt scheduled for Hemilaminectomy L2; Laminectomy L3-5 on 02/14/23 with . Pt scheduled for Pre Admission Testing on 02/03/23. Route to [place] when form completed for processing documented in this encounterPremier Health [facility] Center08-10-2023 History of Present illness Narrative* Halima Harvey APRN.FRONT DESK ADMIN - 12/29/2022 10:45 AM EDT Images from the original note were not included. [facility] [place] Follow-up Visit Follow-up note December 29, 2022 [...] for further evaluation as well as outpt weaver hand. SVT noted and pt previously informed to follow up with his area development consultant and results faxed to [facility]; no afib noted. CTA however, [...] been doing ok. Been seen by the [facility] and was recommended he consider back [...] Suh CARDIAC CATH N/A 02/02/2015 Completed at [facility] COLONOSCOPY FLX DX W/COLLJ SPEC WHEN PFRMD 07/11/12 Colonoscopy COLONOSCOPY FLX DX W/COLLJ SPEC WHEN PFRMD 02/24/2017 Colonoscopy COLONOSCOPY W/BIOPSY SINGLE/MULTIPLE 03/29/06 ESOPHAGOGASTRODUODENOSCOPY TRANSORAL DIAGNOSTIC 02/24/2017 EGD [place]ARP W/O FACETEC FORAMOT/DSC 05/[address] Cole PAST SURGICAL HISTORY OF Right 2007 knee surgery RPR [place]UN[place] VAGINALIS HYDROCELE BOTTLE TYPE STENT PLACEMENT 08/2010 [facility] VASECTOMY UNI/BI SPX W/POSTOP SEMEN EXAMS Current [...] 1 tablet by mouth twice daily. Dr. Kraemr nitroglycerin sublingual (NITROSTAT) 0.4 mg SL tablet [...] DATE OF EXAM: Jan 25 2022 10:41AM [facility] 0022 - CTA HEAD W IVCON [...] of narrowing. Would also recommend completing outpatient weaver hand to evaluate for abnormal heart rhythm. If [...] MRI brain and cervical spine 12/01/2021. RESULT: Support Group Manager (topogram) images: No additional findings. A 3-vessel [...] be communicated with the ordering provider via [employer] staff message or phone message by Imaging Support Services within 2 business days of report finalization. Algorithms for management of incidental imaging findings can be found on the [facility] Intranet Sharepoint site at: [email or web address] [email or web address] Marriage And Family Counselor: KENTRELL Transcribe Date/Time: Jan 25 2022 10:57A Dictated by : SELWYN REED MD This examination was interpreted and the report reviewed and electronically signed by: SELWYN REED MD on Jan 25 2022 11:14AM EST MRI Report MRI BRAIN WO IVCON Exam End: 12/01/2021 8:42 AM (Edited Result - FINAL) Addendum: * * *Final Report* * * DATE OF EXAM: Dec 01 2021 8:42AM [facility] 0294 - MRI BRAIN WO IVCON [...] MODERATE VOLUME LOSS, NOTABLY PROGRESSED SINCE 2016 Marriage And Family Counselor: KENTRELL Transcribe Date/Time: Dec 01 2021 9:12A Dictated by : CHIKI AMAYA MD This examination was interpreted and the report reviewed and electronically signed by: CHIKI AMAYA MD on Dec 01 2021 9:32AM [facility] [place] Provider12/01/2021 9:32 AM MRI Spine Report MRI CERVICAL SPINE WO IVCON Exam End: 12/01/2021 8:42 AM (Final result) Narrative: * * *Final Report* * * DATE OF EXAM: Dec 01 2021 8:42AM [facility] 0297 - MRI CERVICAL SPINE WO IVCON [...] vertebrae with counting from the craniocervical junction. Marriage And Family Counselor: KENTRELL Transcribe Date/Time: Dec 01 2021 9:30A [...] DATE OF EXAM: Apr 26 2016 4:09PM [facility] 0297 - MRI CERVICAL SPINE WO IVCON [...] al. J Am Viviana Radiol 12:143-150; 2015 Marriage And Family Counselor: KENTRELL Transcribe Date/Time: Apr 26 2016 5:19P [...] however, will be seeing neurosurgery through the [facility] in two weeks. Have asked that CC [...] new or worsening symptoms occur. Halima Harvey APRN.FRONT DESK ADMIN I spent a total of 45 minutes on the date of the service which included preparing to see the patient, [id number] patient care, completing clinical documentation, obtaining and/or reviewing separately obtained history, performing a medically appropriate examination, counseling and educating the pat ient/family/caregiver, and ordering medications, tests, or procedures. documented in this encounterPremier Health [facility] Center07-31-2023 Instructions* Patient Instructions* Omar Concepcion [...] (or decreased sensation in your feet) a diesel tractor engine mechanic should always cut your toenails. Be Careful [...] Go to your health care provider or diesel tractor engine mechanic to treat these conditions. documented in this encounterPremier Health [facility]rium Medical Center07-31-2023 History of Present illness Narrative* [...] Suh CARDIAC CATH N/A 02/02/2015 Completed at [facility] COLONOSCOPY FLX DX W/COLLJ SPEC WHEN PFRMD 07/11/12 Colonoscopy COLONOSCOPY FLX DX W/COLLJ SPEC WHEN PFRMD 02/24/2017 Colonoscopy COLONOSCOPY W/BIOPSY SINGLE/MULTIPLE 03/29/06 ESOPHAGOGASTRODUODENOSCOPY TRANSORAL DIAGNOSTIC 02/24/2017 EGD SHARP W/O FACETEC FORAMOT/DSC / VRT SGM CRV Dr Cole PAST SURGICAL HISTORY OF Right 2007 knee surgery RPR TUNICA VAGINALIS HYDROCELE BOTTLE TYPE STENT PLACEMENT 08/2010 [facility] VASECTOMY UNI/BI SPX W/POSTOP SEMEN EXAMS FAMILY [...] Objective: Patient presents to clinic ambulating in [facility] Constitutional: Pt is a well developed 82 [...] Fungus Alejandra Gutierrez LPN documented in this encounterPremier Health At[facility] Medical Center06-15-2023 History of Past illness Narrative* [...] of this encounter (statuses as of 08/02/2023) [facility] History of Past illness Narrative* [...] of this encounter (statuses as of 08/11/2023) [facility] History of Past illness Narrative* [...] of this encounter (statuses as of 08/15/2023) [facility] History of Past illness Narrative* [...] of this encounter (statuses as of 08/21/2023) [facility] History of Past illness Narrative* [...] of this encounter (statuses as of 08/22/2023) [facility] History of Past illness Narrative* [...] of this encounter (statuses as of 08/22/2023) [facility] History of Past illness Narrative* [...] of this encounter (statuses as of 08/25/2023) [facility] History of Past illness Narrative* [...] of this encounter (statuses as of 08/31/2023) [facility]03-27-2023 Miscellaneous Notes* Telephone Encounter - [...] LPN * Telephone Encounter - Halima Harvey APRN.CNP - 08/15/2022 12:14 PM EDT Please make [...] 08/15/2022 12:02 PM EDT Fax received from [facility], [facility] Requesting patient to be off anticoagulant (Plavix) 7 days prior to pain management procedure. Procedure date 08/24/2022 Routing to provider for review documented in this encounterPremier Health Atrium Medical Center03-20-2023 Miscellaneous Notes* Telephone Encounter - Laney Phan RN - 08/08/2022 11:42 AM EDT Patient's calling to ask for refill of patient's Plavix, last ordered by Sandra Harvey CNP. Script pended for review. Pharmacy: [facility] Thank you. Patient has been identified by [...] you. Laney Phan RN documented in this encounterPremier Health Atrium Medical Center12-16-2022 Miscellaneous Notes* Telephone Encounter - Yuliya Priest LPN - 05/06/2022 3:53 PM EST Faxed form back to the [facility], will need to talk to patient's area development consultant. Yuliya Priest LPN * Telephone Encounter - Berenice Pace LPN - 05/05/2022 10:34 AM EST Pt's advised of below message and also advised Leelee from Dr Nichole's office as well. Dorcas Mckoy pt's is going to contact Dr Kramer's office. Leelee advises she was told they didn't manage this. She will f/u with cardiology. Berenice Pace LPN * Telephone Encounter - Yuliya Priest LPN - 05/05/2022 9:07 AM EST Left message for patient to call office for update. Yuliya Wood Zayda RO * Telephone Encounter - Landon Strange Jr., MD - 05/04/2022 7:17 PM EST I cannot find record that I have seen the patient. However on review it appears on plavix for cad. Recommend cards be made aware. Landon Strange Jr, MD * Telephone Encounter - Narayan Langford RN - 05/04/2022 4:21 PM EST Leelee from Dr Nichole's office [facility] called in and reported that Pt needs to hold Plavix a soon as possible. He is scheduled next to have a Caudal epidural steroid injection. She reports the latest he could stop it would be Monday. Please call them back at [phone] andupdate them with providers answer. documented in this encounterPremier Health Atrium Medical Center12-14-2022 History of Present illness Narrative* George Vaughan MD - 05/04/2022 1:20 PM EST Chief Complaint Patient presents with: 6 Month Exam HPI Rony Monzon is a 81 year old male who presents here today for a 6 month follow up. Here with . Following with [facility] Urology. Previously had TURP procedure [...] daily. HTN: Follows with Dr. Kramer/Team at [facility]. Pt denies any chest pain [...] Propranolol 20 mg bid. Has orthostatic HTN. certified registered dental assistant order by Neuro and showed 14 episodes of SVT, recommended to f/u with Asbestos Siding Installer. Skin: Has some red patches on the face that seem to be there all the time. Denies any itching. Wifefollows with Dheeraj Harris, Dr. Pedro yearly. Pain: Chronic pain that pt currently follows up with Pain Mgmt. Pain located in back and neck. Was reporting increased headaches. Receives injections. Follows with Dr. Osman who recommended surgery or a referral to Neurosurgery Provider at [facility]. He is getting an injection to his back in a week. The pain has been bothering him more in the back. REHAN: Follows with [facility] Pulmonary. Does not use a [...] Suh CARDIAC CATH N/A 02/02/2015 Completed at [facility] COLONOSCOPY FLX DX W/COLLJ SPEC WHEN PFRMD 07/11/12 Colonoscopy COLONOSCOPY FLX DX W/COLLJ SPEC WHEN PFRMD 02/24/2017 Colonoscopy COLONOSCOPY W/BIOPSY SINGLE/MULTIPLE 03/29/06 ESOPHAGOGASTRODUODENOSCOPY TRANSORAL DIAGNOSTIC 02/24/2017 EGD SHARP W/O FACETEC FORAMOT/DSC 05/[address] Cole PAST SURGICAL HISTORY OF Right 2007 knee surgery RPR TUNICA VAGINALIS HYDROCELE BOTTLE TYPE STENT PLACEMENT 08/2010 [facility] VASECTOMY UNI/BI SPX W/POSTOP SEMEN EXAMS Family [...] Lymph% 04/25/2022 17.3 Abs Lymph 04/25/2022 1.45 Upshur% 04/25/2022 8.6 Abs [place] 04/25/2022 0.72 Eosin% 04/25/2022 3.3 Abs Eosin [...] weight loss. 4. Coronary artery disease involving [place] coronary artery of [place] heart without angina pectoris- ICD9: 414.01, ICD10: [...] Past Histories independently gathered by the clinical computer customer support specialist and the remaining scribed note [...] PM. Ana Tong Ma documented in this encounterPremier Health Atrium Medical Center12-09-2022 Miscellaneous Notes* Telephone Encounter - Charlene Eckert RN - 04/29/2022 11:10 AM EST Provider: Reagan Harvey APRN.CNP pharmacy requesting refill via [employer] . Please E-Scribe Last OV: 02-17-22 with Reagan Harvey APRN.CNP Future OV: N/A Last prescribed: 03-07-22 Requested Prescriptions Pending Prescriptions Disp Refills clopidogrel (PLAVIX) 75 mg tablet [Pharmacy Med Name: CLOPIDOGREL 75 MG TABLET] 30 tablet 2 Sig: TAKE 1 TABLET BY MOUTH EVERY DAY Request sent to provider to review Charlene Eckert RN documented in this encounterPremier Health Atrium Medical Center10-25-2022 Miscellaneous Notes* Telephone Encounter - [...] * Telephone Encounter - Carline Crandall - 03/14/2022 4:01 PM EDT Patient has been identified by name and date of : Yes Requested Prescriptions Pending Prescriptions Disp Refills propranolol (INDERAL) 20 mg tablet Sig: Take 1 tablet by mouth twice daily. amLODIPine (NORVASC) 5 mg tablet Sig: Take 1 tablet by mouth once daily. RX INSTRUCTIONS: Patient aware RX will be sent to pharmacy. No need to notify patient. Carline Crandlal documented in this encounterPremier Health Atrium Medical Center10-14-2022 Miscellaneous Notes* Telephone Encounter - Lakeisha Narvaez MA - 03/04/2022 5:03 PM EDT Patient notified of results, verbalizes understanding of instructions. Patient prefers [facility]. Lakeisha Narvaez MA * Telephone Encounter - Lakeisha Narvaez MA - 03/04/2022 5:01 PM EDT ----- Message from Halima Harvey APRN.CNP sent at 03/04/2022 10:16 AM EDT ----- MRI confirming suspected second stroke that was seen on CTA. Will have patient transition from ASA to Plavix for further stroke prevention. Will send prescription for Plavix once preferred pharmacy known. Once starting Plavix he may stop ASA. documented in this encounterPremier Health Atrium Medical Center10-10-2022 History of Present illness Narrative* JOHNNIE ClarkR) - 02/28/2022 3:00 PM EDT Radiology Service [...] PERIPHERAL IV DATA: Not applicable SIGNED BY: SUMMER Clark) February 28, 2022 3:18 PM documented in this encounterPremier Health Atrium Medical Center09-29-2022 History of Present illness Narrative* Halima Harvey APRN.FRONT DESK ADMIN - 02/17/2022 10:45 AM EDT Images from the original note were not included. [facility] [place] Follow-up Visit Follow-up note February 17, 2022 [...] Most recent MRI of cervical spine from 2015 with report of focal myelomalacia at C5-6. [...] Suh CARDIAC CATH N/A 02/02/2015 Completed at [facility] COLONOSCOPY FLX DX W/COLLJ SPEC WHEN PFRMD 07/11/12 Colonoscopy COLONOSCOPY FLX DX W/COLLJ SPEC WHEN PFRMD 02/24/2017 Colonoscopy COLONOSCOPY W/BIOPSY SINGLE/MULTIPLE 03/29/06 ESOPHAGOGASTRODUODENOSCOPY TRANSORAL DIAGNOSTIC 02/24/2017 EGD SHARP W/O FACETEC FORAMOT/DSC /[address] Cole PAST SURGICAL HISTORY OF Right 2006 knee surgery RPR TUNICA VAGINALIS HYDROCELE BOTTLE TYPE STENT PLACEMENT 08/2010 [facility] VASECTOMY UNI/BI SPX W/POSTOP SEMEN EXAMS Current [...] DATE OF EXAM: Jan 25 2022 10:41AM [facility] 0022 - CTA HEAD W IVCON [...] of narrowing. Would also recommend completing outpatient weaver hand to evaluate for abnormal heart rhythm. If [...] MRI brain and cervical spine 12/01/2021. RESULT: Support Group Manager (topogram) images: No additional findings. A 3-vessel [...] be communicated with the ordering provider via Codenvy staff message or phone message by Imaging Support Services within 2 business days of report finalization. Algorithms for management of incidental imaging findings can be found on the [facility] Intranet Sharepoint site at: [email or web address]%20Findi ngs%20at%20Imaging/Forms/[email or web address] Marriage And Family Counselor: KENTRELL Transcribe Date/Time: Jan 25 2022 10:57A Dictated by : SELWYN REED MD This examination was interpreted and the report reviewed and electronically signed by: SELWYN REED MD on Jan 25 2022 11:14AM EST MRI Report MRI BRAIN WO IVCON Exam End: 12/01/2021 8:42 AM (Edited Result - FINAL) Addendum: * * *Final Report* * * DATE OF EXAM: Dec 01 2021 8:42AM [facility] 0294 - MRI BRAIN WO IVCON [...] MODERATE VOLUME LOSS, NOTABLY PROGRESSED SINCE 2016 Marriage And Family Counselor: [facility] Transcribe Date/Time: Dec 01 2021 9:12A Dictated by : CHIKI AMAYA MD This examination was interpreted and the report reviewed and electronically signed by: CHIKI AMAYA MD on Dec 01 2021 9:32AM EST [facility] Imaging [place] Provider12/01/2021 9:32 AM MRI Spine Report MRI CERVICAL SPINE WO IVCON Exam End: 12/01/2021 8:42 AM (Final result) Narrative: * * *Final Report* * * DATE OF EXAM: Dec 01 2021 8:42AM [facility] 0297 - MRI CERVICAL SPINE WO IVCON [...] vertebrae with counting from the craniocervical junction. Marriage And Family Counselor: PSCB Transcribe Date/Time: Dec 01 2021 9:30A Dictated [...] DATE OF EXAM: Apr 26 2016 4:09PM [facility] 0297 - MRI CERVICAL SPINE WO IVCON [...] imaging findings: Recommend dedicated thyroid US follow-up isabel Mckeon al. J Am Viviana Radiol 12:143-150; 2015 Marriage And Family Counselor: KENTRELL Transcribe Date/Time: Apr 26 2016 5:19P [...] for further evaluation as well as outpt weaver hand. SVT noted and pt previously informed to follow up with his area development consultant and results faxed to [facility]; no afib noted. CTA however, [...] on 02/17/22 CONSULT TO NEUROSURGERY Halima Harvey APRN.THANG I spent a total of 45 minutes on the date of the service which included preparing to see the patient, hcuw-gl-vvma patient care, completing clinical documentation, obtaining and/or reviewing separately obtained history, performing a medically appropriate examination, counseling and educating the pat ient/family/caregiver, and ordering medications, tests, or procedures. documented in this encounterPremier Health Atrium Medical Center09-19-2022 Miscellaneous Notes* Telephone Encounter - Halima Harvey APRN.CNP - 02/07/2022 8:48 AM EDT Prescription sent to [facility]. Pending MRI results may [...] any other bleeding/clotting disorder. Send Plavix to [facility] in [place]. Call was transferred to PSS to schedule MRI. * Telephone Encounter - NEW Landeros - 02/01/2022 9:09 AM EDT TC to patient's Tere who verbalizes understanding of results. This staff attempted to schedule but soonest appointment was in May. Please try to assist Tere in scheduling a sooner appointment for Rony with KD at providers request. Thank you. NEW Landeros * Telephone Encounter - NEW Landeros - 02/01/2022 9:00 AM EDT ----- Message from Halima Harvey APRN.FRONT DESK ADMIN sent at 01/31/2022 4:36 PM EDT ----- [...] time of last visit. documented in this encounterPremier Health Atrium Medical Center09-06-2022 History of Present illness Narrative* RT Deepika(R) - 01/25/2022 10:00 AM EDT Radiology Service [...] CTA Brain and CTA Neck SIGNATURE: RT Elton(Vaughn) PATIENT NAME: Rony Monzon DATE: January 25, 2022 TIME: 3:04 PM documented in this encounterPremier Health Atrium Medical Center09-01-2022 Instructions* Patient Instructions* Delia Waterman APRN.FRONT DESK ADMIN - 01/20/2022 1:22 PM EDT 1.) Start Paxlovid, take as directed. Stop Crestor while taking this medication. 2.) May use myxm-ngk-lkdewdv cold and cough medication as needed for [...] AND CAREGIVERS EMERGENCY USE AUTHORIZATION (EUA) OF RAJINDER FOR CORONAVIRUS DISEASE 2019 (COVID-19) You are being given this Fact Sheet because your healthcare provider believes it is necessary to provide you with PAXLOVID for the treatment of orqy-rk-eatjtlpc coronavirus disease (COVID-19) caused by the SARS-CoV-2 [...] virus. COVID-19 illnesses have ranged from very ghhl-vg-nupbqg, including illness resulting in . While information [...] is an investigational medicine used to treat egbq-is-quwzlitp COVID-19 in adults and children [12 years [...] of using PAXLOVID to treat people with mprp-xm-dfqsavgd COVID-19. The FDA has authorized the emergency use of PAXLOVID for the treatment of mlmv-mj-beylscgs COVID-19in adults and children [12 years of [...] the medicines you take, including prescription and lsqp-fqh-mhgxuiv medicines, vitamins, and herbal supplements. Some medicines [...] time. What other treatment choices are there? Veklury (remdesivir) is FDA-approved for the treatment of lmir-ss-crwnbbnm COVID-19 in certain adults and children. Talk with your doctor to see if Veklury is appropriate for you. Like PAXLOVID, FDA may also allow for the emergency use of other medicines to treat people with COVID-19. Go to https://www.fda.gov/pbntdvtgk-izwyqahybuey-zpmeagzopsp/bjz-eclmy-frqujjaxis-and- policy-framework/yfekwsyjs-rsc-qcfqsxfzfhyzm for information on the emergency use of [...] if I am or ? There is ethnoarchaeology professor treating women or mothers with PAXLOVID. For [...] go away. Report side effects to FDA MeldiumWatch at www.fda.gov/medwatch or call 7-930-KEW6688 or you can reportside effects to [employer]. at the contact information provided below. Website Fax number Telephone number wwwSpor How should I store PAXLOVID? Store PAXLOVID [...] (EUA). The EUA is supported by a It Field Technician of Health and Human Service (HHS) declaration that circumstances exist to justify the emergency use of drugs and biological productsduring the COVID-19 pandemic. PAXLOVID for the treatment of ufzj-jt-hgebfogp COVID-19 in adults and children [12 years [...] telephone number provided below. Website Telephone number wwwInternet BroadcastingUMNGH60iadzZt.Outski (5-979-L66-GDGU) You can also go to www.Taykey or call for more information. Pfizer Distributed by [employer] [place] [address] [id number] Revised: 06 August 2021 documented in this encounterPremier Health Atrium Medical Center09-01-2022 History of Present illness Narrative* Delia Waterman APRN.CNP - 01/20/2022 1:20 PM EDT Chief Complaint [...] agrees to the visit: Yes Patient Location: [facility] Rony Monzon is a 81 year old male who is contacted today for a phone visit This is an established patient of Dr. George Vaughan MD Reports: + Covid, was seen in [facility] yesterday. Symptoms started 01/18/22, cough, headache, myalgias, and SOB with activity. Cough is mildly productive. Fever 101.8 this morning. Taking Gpjruka0789 mg every 6 hours as needed. No [...] Suh CARDIAC CATH N/A 02/02/2015 Completed at [facility] COLONOSCOPY FLX DX W/COLLJ SPEC WHEN PFRMD 07/11/12 Colonoscopy COLONOSCOPY FLX DX W/COLLJ SPEC WHEN PFRMD 02/24/2017 Colonoscopy COLONOSCOPY W/BIOPSY SINGLE/MULTIPLE 03/29/06 ESOPHAGOGASTRODUODENOSCOPY TRANSORAL DIAGNOSTIC 02/24/2017 EGD SHARP W/O FACETEC FORAMOT/DSC 1/2 VRT SGM CRV -2000 Dr Cole PAST SURGICAL HISTORY OF Right 2007 knee surgery RPR [place] VAGINALIS HYDROCELE BOTTLE TYPE STENT PLACEMENT 08/2010 [facility] VASECTOMY UNI/BI SPX W/POSTOP SEMEN EXAMS Family [...] minutes Nirmatrelvir/Ritonavir (Paxlovid) Eligibility and Patient Discussion [facility] Formulary Restriction Criteria: Adult outpatients [...] to proceeding with nirmatrelvir/ritonavir treatment. Delia Waterman APRN.CNP January 20, 2022 1:44 PM ASSESSMENT/PLAN: 1. COVID-19 - ICD9: 079.89, ICD10: U07.1 - Start Paxolvid, medication education and instructions discussed. - Stop crestor while taking Paxlovid, Patient and agreeable. - Continue supportive care at home. May use any rgcj-smb-kahsuxx cold and cough medication as needed for [...] APRN.THANG This note was partially generated using [employer] voice recognition system. Note was reviewed for accuracy. There may be minor misspellings or grammar miscues with [employer] voice recognition. documented in this encounterPremier Health Atrium Medical Center09-01-2022 Miscellaneous Notes* Telephone Encounter - SKYLAR England - 01/20/2022 11:[address] order for stat creatinine order for pt , pt appt 01/25/[address] documented in this encounterPremier Health Atrium Medical Center08-01-2022 History of Present illness Narrative* Sandra Espitia MD - 12/20/2021 8:01 AM EDT [facility] - NEW PATIENT EVALUATION George Vaughan MD [address] [facility] [address] I had the pleasure of evaluating Mr. [...] in Neurology OT/PT/Speech Visit from 02/04/2019 in [facility] [...] w/biopsy single/multiple (03/29/06); sharp w/o facetec foramot/dsc / vrt sgm crv (); stent placement (08/2010); [...] Left pathological reflexes: Janet's absent. Coordination Right: Kltnpd-ov-rctp normal. Rapid alternating movement normal. Left: Bmeaif-qb-igsp normal. Rapid alternating movement normal. Movement Disorders [...] with ET. Tremors have been present since 2017 or earlier. Action tremors are consistent with [...] which included preparing to see the patient, fkeb-rr-jdvi patient care, completing clinical documentation, obtaining and/or [...] Sincerely, Sandra Espitia MD documented in this encounterPremier Health Atrium Medical Center07-27-2022 Miscellaneous Notes* Telephone Encounter - Lakeisha Narvaez MA - 12/15/2021 10:07 AM EDT Valid script at pharmacy. documented in this encounterPremier Health Atrium Medical Center07-21-2022 Miscellaneous Notes* Telephone Encounter - NEW Landeros - 12/09/2021 3:02 PM EDT TC to patient to see if he prefers getting heart monitor sent to him or coming into office. Pt saidhe will check with his and call us back. Please assist patient in scheduling with CTA of head/neck as well as a consult to spine medicine (second TE from 12/07). Thank you. NEW Landeros * Telephone Encounter - Halima Harvey APRN.CNP - 12/09/2021 1:02 PM EDT Outpatient weaver hand ordered. Please determine if pt needs mailed to house or will have placed in office. Orders also entered for CTA head/neck. * Telephone Encounter - NEW Landeros - 12/09/2021 12:44 PM EDT TC to patient who verbalizes understanding of providers message below. Patient is agreeable to heart monitor and imaging of blood vessels. Please advise. Thank you. NEW Landeros * Telephone Encounter - NEW Landeros - 12/07/2021 2:47 PM EDT TC with no answer. Left message to return call to receive results. If patient calls back, please also see results from separate 12/07 TE. NEW Landeros * Telephone Encounter - NEW Landeros - 12/07/2021 2:44 PM EDT ----- Message from Halima Harvey APRN.FRONT DESK ADMIN sent at 12/06/2021 3:09 PM EDT ----- [...] of narrowing. Would also recommend completing outpatient weaver hand to evaluate for abnormal heart rhythm. If pt is agreeable will enter orders. Please ensure patient is taking ASA andcholesterol medication as noted in chart. documented in this encounterPremier Health Atrium Medical Center07-13-2022 History of Present illness Narrative* SUMMER Clark) - 12/01/2021 8:00 AM EDT Radiology Service [...] IV DATA: Not applicable SIGNED BY: RT Eduardo(Vaughn) December 01, 2021 8:03 AM documented in this encounterPremier Health Atrium Medical Center07-11-2022 Miscellaneous Notes* Telephone Encounter - Nakia Yeager Pss - 11/29/2021 8:07 AM EDT Received MRI Lumbar Spine w/o contrast results by fax from [facility]. Sent report to scanning for the provider to review. * Telephone Encounter - NEW Landeros - 11/26/2021 3:59 PM EDT TC to [facility] who is faxing over results of recent MRI to [facility] office per providers request. Will upload to patient chart, place on providers desk for review, and update when fax is received. NEW Landeros * Telephone Encounter - Halima Harvey [...] an MRI of his back completed at [facility] on 11/26/21. This was ordered by Dr. Osman at [facility]. Tere states Halima Harvey has recently ordered an MRI of cervical spine and Tere would like Halima to request MRI results from [facility] for her review, and let patient know if he still needs the one orderedby Halima. Please call Tere with update at [phone]. Thank you. 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 Uro - Follows with [facility] Urology. Pt had TURP procedure 07/16/21, no longer taking Avodart or Flomax. GI [...] was walking backwards. Daughter who works with [employer] and has them in a Balance Class [...] give this up. HTN - Follows with [facility], Dr. Kramer. Pt on current [...] once daily. Stable. REHAN - Follow with [facility] Pulmonology. Past medical history, appointments, [...] Suh CARDIAC CATH N/A 02/02/2015 Completed at [facility] COLONOSCOPY FLX DX W/COLLJ SPEC WHEN PFRMD 07/11/12 Colonoscopy COLONOSCOPY FLX DX W/COLLJ SPEC WHEN PFRMD 02/24/2017 Colonoscopy COLONOSCOPY W/BIOPSY SINGLE/MULTIPLE 03/29/06 ESOPHAGOGASTRODUODENOSCOPY TRANSORAL DIAGNOSTIC 02/24/2017 EGD SHARP W/O FACETEC FORAMOT/DSC /[address] Cole PAST SURGICAL HISTORY OF Right 2007 knee surgery RPR TUNICA VAGINALIS HYDROCELE BOTTLE TYPE STENT PLACEMENT 08/2010 [facility] VASECTOMY UNI/BI SPX W/POSTOP SEMEN EXAMS Family [...] Lymph% 10/21/2021 15.8 Abs Lymph 10/21/2021 1.86 [place]% 10/21/2021 8.3 Abs [place] 10/21/2021 0.98 (A) Eosin% 10/21/2021 2.0 Abs [...] Past Histories independently gathered by the clinical computer customer support specialist and the remaining scribed note [...] PM. Madisyn G[place] Ma documented in this encounterPrem[facility]04-25-2022 Instructions* Patient Instructions* Delia Waterman APRN.FRONT DESK ADMIN - 09/13/2021 3:14 PM EDT 1.) Schedule [...] Follow up as needed. documented in this encounterPremier [facility]04-25-2022 History of Present illness Narrative* Delia Waterman APRN.THANG - 09/13/2021 2:40 PM EDT This is [...] his BP medication. Has seen Neuro in [place] in the past to check for Parkinson's. It has been several years. Taking propanolol 20 mg twice daily, amlodipine 5 mg daily, lisinopril 10 mg twice daily. Seeing Dr. Kramer at [facility]. Stopped taking Avodart and flomax after Turp [...] APPENDECTOMY CARDIAC CATH N/A 02/02/2015 Completed at [facility] COLONOSCOP W/ OR W/O [facility] SPEC 07/11/12 Colonoscopy COLONOSCOP W/ OR W/O BRS SPEC 02/24/2017 Colonoscopy COLONOSCOPY W/BX 03/29/06 EGD W/O OR W/BRUSH/WASH 02/24/2017 EGD LAMINECTOMY,CERVICAL 1-2000 Dr Cole PAST SURGICAL HISTORY OF Right 2007 knee surgery REPAIR OF HYDROCELE,TUNICA STENT PLACEMENT 08/2010 [facility] TOTAL HIP REPLACEMENT Right 08/08/2018 Dr. Parks - Angeli VASECTOMY ALLERGIES Lyrica [Pregabalin], Oxycontin [Oxycodone Hcl], [...] ICD10: R42 - The office will contact area development consultant to discuss cardiac medications. Follow-up as needed or sooner if symptoms get worse or do not improve. Discussed treatment plan and patient voices understanding. Patient's questions answered appropriately. Medications and potential side effects were discussed and patient voices understanding. Delia Waterman APRN.THANG This note was partially generated using [employer] voice recognition system. Note was reviewed for accuracy. There may be minor misspellings or grammar miscues with [employer] voice recognition. documented in this encounterPrem[facility]06-10-2021 History of Present illness Narrative* [...] 29, 2020 9:50 AM documented in this encounterPremier Health [facility] Center09-16-2015 History of Past illness Narrative* Problem Noted Date Resolved Date Hip pain 02/04/2015 05/02/2022 Left hip pain 10/29/2014 05/02/2022 Cervical strain 07/29/2014 05/02/2022 Gallbladder polyp 06/10/2014 07/05/2016 Disc degeneration, lumbar 06/25/20102016 Pain in joint, pelvic region and thigh 9 05/02/2022 Pain in joint, lower leg 12/14/2005 022 documented as of this encounter (statuses as of 05/05/2022) [facility] History of Past illness Narrative* Problem Noted Date Resolved Date Hip pain 02/04/2015 05/02/2022 Left hip pain 10/29/2014 05/02/2022 Cervical strain 07/29/2014 05/02/2022 Gallbladder polyp 06/10/2014 07/05/2016 Disc degeneration, lumbar 06/25/20102016 Pain in joint, pelvic region and thigh 200 9 05/02/2022 Pain in joint, lower leg 12/14/2005 022 documented as of this encounter (statuses as of 05/06/2022) [facility] of Past illness Narrative* Problem Noted Date Resolved Date Hip pain 02/04/2015 05/02/2022 Left hip pain 10/29/2014 05/02/2022 Cervical strain 07/29/2014 05/02/2022 Gallbladder polyp 06/10/2014 07/05/2016 Disc degeneration, lumbar 06/25/20102016 Pain in joint, pelvic region and thigh 200 9 05/02/2022 Pain in joint, lower leg 12/14/2005 022 documented as of this encounter (statuses as of 08/08/2022) [facility] of Past illness Narrative* Problem Noted Date Resolved Date Hip pain 02/04/2015 05/02/2022 Left hip pain 10/29/2014 05/02/2022 Cervical strain 07/29/2014 05/02/2022 Gallbladder polyp 06/10/2014 07/05/2016 Disc degeneration, lumbar 06/25/20102016 Pain in joint, pelvic region and thigh 9 05/02/2022 Pain in joint, lower leg 12/14/2005 022 documented as of this encounter (statuses as of 08/15/2022) [facility] of [facility] illness Narrative* Problem Noted Date Diagnosed Date Resolved Date Hip pain 02/04/2015 05/02/2022 Left hip pain 10/29/2014 05/02/2022 Cervical strain 07/29/2014 05/02/2022 Gallbladder polyp 06/10/2014 07/05/2016 Disc degeneration, lumbar 06/25/2010 Pain in joint, pelvic region and thigh 09/16/2008 05/02/2022 Pain in joint, lower leg 12/14/200504/2022 documented as of this encounter (statuses as of 12/19/2022) [facility] of [facility] illness Narrative* Problem Noted Date Diagnosed Date Resolved Date Hip pain 02/04/2015 05/02/2022 Left hip pain 10/29/2014 05/02/2022 Cervical strain 07/29/2014 05/02/2022 Gallbladder polyp 06/10/2014 07/05/2016 Disc degeneration, lumbar 06/25/2010 Pain in joint, pelvic region and thigh 09/16/2008 05/02/2022 Pain in joint, lower leg 12/14/200504/2022 documented as of this encounter (statuses as of 12/29/2022) [facility] of [facility] illness Narrative* Problem Noted Date Diagnosed Date Resolved Date Hip pain 02/04/2015 05/02/2022 Left hip pain 10/29/2014 05/02/2022 Cervical strain 07/29/2014 05/02/2022 Gallbladder polyp 06/10/2014 07/05/2016 Disc degeneration, lumbar 06/25/2010 Pain in joint, pelvic region and thigh 09/16/2008 05/02/2022 Pain in joint, lower leg 12/14/200504/2022 documented as of this encounter (statuses as of 01/18/2023) [facility] Narrative* Problem Noted Date Diagnosed Date Resolved Date Hip pain 02/04/2015 05/02/2022 Left hip pain 10/29/2014 05/02/2022 Cervical strain 07/29/2014 05/02/2022 Gallbladder polyp 06/10/2014 07/05/2016 Disc degeneration, lumbar 06/25/2010 Pain in joint, pelvic region and thigh 09/16/2008 05/02/2022 Pain in joint, lower leg 12/14/200504/2022 documented as of this encounter (statuses as of 01/24/2023) [facility] Narrative* Problem Noted Date Diagnosed Date Resolved Date Hip pain 02/04/2015 05/02/2022 Left hip pain 10/29/2014 05/02/2022 Cervical strain 07/29/2014 05/02/2022 Gallbladder polyp 06/10/2014 07/05/2016 Disc degeneration, lumbar 06/25/2010 Pain in joint, pelvic region and thigh 09/16/2008 05/02/2022 Pain in joint, lower leg 12/14/200504/2022 documented as of this encounter (statuses as of 02/10/2023) [facility] Narrative* Problem Noted Date Diagnosed Date Resolved Date Hip pain 02/04/2015 05/02/2022 Left hip pain 10/29/2014 05/02/2022 Cervical strain 07/29/2014 05/02/2022 Gallbladder polyp 06/10/2014 07/05/2016 Disc degeneration, lumbar 06/25/2010 Pain in joint, pelvic region and thigh 09/16/2008 05/02/2022 Pain in joint, lower leg 12/14/200504/2022 documented as of this encounter (statuses as of 02/22/2023) [facility] Narrative* Problem Noted Date Diagnosed Date Resolved Date Hip pain 02/04/2015 05/02/2022 Left hip pain 10/29/2014 05/02/2022 Cervical strain 07/29/2014 05/02/2022 Gallbladder polyp 06/10/2014 07/05/2016 Disc degeneration, lumbar 06/25/2010 Pain in joint, pelvic region and thigh 09/16/2008 05/02/2022 Pain in joint, lower leg 12/14/200504/2022 documented as of this encounter (statuses as of 02/25/2023) [facility] Narrative* Problem Noted Date Diagnosed Date Resolved Date Hip pain 02/04/2015 05/02/2022 Left hip pain 10/29/2014 05/02/2022 Cervical strain 07/29/2014 05/02/2022 Gallbladder polyp 06/10/2014 07/05/2016 Disc degeneration, lumbar 06/25/2010 Pain in joint, pelvic region and thigh 09/16/2008 05/02/2022 Pain in joint, lower leg 12/14/200504/2022 documented as of this encounter (statuses as of 02/26/2023) [facility] Narrative* Problem Noted Date Diagnosed Date Resolved Date Hip pain 02/04/2015 05/02/2022 Left hip pain 10/29/2014 05/02/2022 Cervical strain 07/29/2014 05/02/2022 Gallbladder polyp 06/10/2014 07/05/2016 Disc degeneration, lumbar 06/25/2010 Pain in joint, pelvic region and thigh 09/16/2008 05/02/2022 Pain in joint, lower leg 12/14/200504/2022 documented as of this encounter (statuses as of 02/28/2023) [facility] Narrative* Problem Noted Date Resolved Date Gallbladder polyp 06/10/2014 07/05/2016 Disc degeneration, lumbar 06/25/20102016 documented as of this encounter (statuses as of 09/15/2021) [facility] Narrative* Problem Noted Date Resolved Date Gallbladder polyp 06/10/2014 07/05/2016 Disc degeneration, lumbar 06/25/20102016 documented as of this encounter (statuses as of 10/16/2021) [facility] Narrative* Problem Noted Date Resolved Date Gallbladder polyp 06/10/2014 07/05/2016 Disc degeneration, lumbar 06/25/20102016 documented as of this encounter (statuses as of 11/03/2021) [facility] Narrative* Problem Noted Date Resolved Date Gallbladder polyp 06/10/2014 07/05/2016 Disc degeneration, lumbar 06/25/20102016 documented as of this encounter (statuses as of 11/29/2021) [address]20-2015 History of Past illness Narrative* Problem Noted Date Resolved Date Gallbladder polyp 06/10/2014 07/05/2016 Disc degeneration, lumbar 06/25/20102016 documented as of this encounter (statuses as of 12/02/2021) [address]20-2015 History of Past illness Narrative* Problem Noted Date Resolved Date Gallbladder polyp 06/10/2014 07/05/2016 Disc degeneration, lumbar 06/25/20102016 documented as of this encounter (statuses as of 12/02/2021) [address]20-2015 History of Past illness Narrative* Problem Noted Date Resolved Date Gallbladder polyp 06/10/2014 07/05/2016 Disc degeneration, lumbar 06/25/20102016 documented as of this encounter (statuses as of 12/09/2021) [place] [address]-20-2015 History of Past illness Narrative* Problem Noted Date Resolved Date Gallbladder polyp 06/10/2014 07/05/2016 Disc degeneration, lumbar 06/25/20102016 documented as of this encounter (statuses as of 12/15/2021) [facility] Narrative* Problem Noted Date Resolved Date Gallbladder polyp 06/10/2014 07/05/2016 Disc degeneration, lumbar 06/25/20102016 documented as of this encounter (statuses as of 12/20/2021) [address]20-2015 History of Past illness Narrative* Problem Noted Date Resolved Date Gallbladder polyp 06/10/2014 07/05/2016 Disc degeneration, lumbar 06/25/20102016 documented as of this encounter (statuses as of 01/20/2022) [address]20-2015 History of Past illness Narrative* Problem Noted Date Resolved Date Gallbladder polyp 06/10/2014 07/05/2016 Disc degeneration, lumbar 06/25/20102016 documented as of this encounter (statuses as of 01/20/2022) [facility] Narrative* Problem Noted Date Resolved Date Gallbladder polyp 06/10/2014 07/05/2016 Disc degeneration, lumbar 06/25/20102016 documented as of this encounter (statuses as of 01/26/2022) [place] [address]20-2015 History of Past illness Narrative* Problem Noted Date Resolved Date Gallbladder polyp 06/10/2014 07/05/2016 Disc degeneration, lumbar 06/25/20102016 documented as of this encounter (statuses as of 02/08/2022) [facility] Narrative* Problem Noted Date Resolved Date Gallbladder polyp 06/10/2014 07/05/2016 Disc degeneration, lumbar 06/25/20102016 documented as of this encounter (statuses as of 02/17/2022) [facility] Narrative* Problem Noted Date Resolved Date Gallbladder polyp 06/10/2014 07/05/2016 Disc degeneration, lumbar 06/25/20102016 documented as of this encounter (statuses as of 03/01/2022) [facility] Narrative* Problem Noted Date Resolved Date Gallbladder polyp 06/10/2014 07/05/2016 Disc degeneration, lumbar 06/25/20102016 documented as of this encounter (statuses as of 03/07/2022) [facility] of [facility] illness Narrative* Problem Noted Date Resolved Date Gallbladder polyp 06/10/2014 07/05/2016 Disc degeneration, lumbar 06/25/20102016 documented as of this encounter (statuses as of 03/15/2022) [facility] of [facility] illness Narrative* Problem Noted Date Resolved Date Gallbladder polyp 06/10/2014 07/05/2016 Disc degeneration, lumbar 06/25/20102016 documented as of this encounter (statuses as of 04/29/2022) [facility] CenterConsult note Author Rom Olivera [facility] April 18, 2023 3:25pm Note Date/Time April 18, 2023 3:24pm [facility] Medical Records Department [address] [place] [address] Counseling Note - Pharmacy 04/18/23 1522 MR#: [id number] Acct: [id number] Name: RONY MONZON Rep #:[id number] : 1940 82 From: Rom Olivera PCP: Dr. George Vaughan MD Status:AD M IN Y Location: [place] [address] Pharmacy [place] Med Reconciliation Pharmacy Service has performed discharge [...] tablet 30 mg PO BID 04/16/23 04/18/23 5362 <Electronically signed by Rom mendes> Date _ Rom Kramer Signature (if applicable): Date CC: ~ Signed [facility] Work Phone: Consult note Author Scott Cornejo [facility] Note Date/Time January 10, 2025 2: 34pm [facility] Medical Records Department [address] [place] [address] Pre-Anesthesia Evaluation 01/10/25 1429 MR#: [id number] Acct: [id number] Name: RONY MONZON Rep #:[id number] : 1940 84 From: Scott HENRIQUEZ PCP: Dr. 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 Hx Hospitalization Yes: 07/2024 ER VISIT, 01/08/25 [...] take am of surgery PONV PONV - aviation 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: PONV - aviation 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 Female No 01/08/25 13:03 HX of Motion [...] 01/10/25 14:08 Respiratory Assessment Respiratory Assessment - aviation 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: Respiratory Tract Infection Hx - aviation 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 Hx Respiratory Tract Infection No 01/08/25 13:03 STOP Sleep Apnea STOP Sleep Apnea - aviation 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: STOP Sleep Apnea - aviation 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 Hx Hypertension Yes: PER PT, CONTROLLED ON [...] Tobacco Use History Tobacco Use History - aviation 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: Tobacco Use History - aviation 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 Tobacco Use Smoking Status Former smoker 01/08/25 13:03 Hx Tobacco Use No 01/08/25 13:03 Years Smoking Packs Smoked per Day Smoking Cessation Date was No - quit smoking greater 01/08/25 13:03 within the last 15 years than 15 years ago Hx Smoking Cessation Date 05/22/81 01/08/25 13:03 Hx Smoking Cessation No 01/08/25 13:03 Counseling Hematologic Medial History Hematologic Hx - aviation 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: Hematologic 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 Hx of Blood Transfusion No 01/08/25 13:03 [...] confused, unrespo /Reproduction History /Reproductive History - aviation 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: /Reproductive Hx- aviation 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 Hx Now No 01/08/25 13:03 Gestational Age [...] breath Dyspnea Precordial chest pain 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 [facility] use of drug Atherosclerotic heart disease of [place] coronary artery without angina pectoris Left thyroid [...] CRNA Cosigner Signature: Date CC: ~ Signed [facility] Work Phone: Consult note Author Scott [facility] Note Date/Time January 10, 2025 3: 21pm [facility] Medical Records Department [address] [place] [address] Anesthesia Postop Eval I 01/10/25 1520 MR#: [id number] Acct: [id number] Name: RONY MONZON Rep #:[id number] : 1940 84 From: Scott Collier RNA PCP: Dr. George Vaughan MD Status:RE G [facility] [place] Race: C Location: [place] [address] Anesthesia: Postop Eval I Current Vital Signs [...] CRNA Cosigner Signature: Date CC: ~ Signed [facility] Work Phone: Consult note Author Scott Cornejo [facility] Note Date/Time January 10, 2025 3: 28pm [facility] Medical Records Department [address] [place] [address] Anesthesia Postop Eval II 01/10/25 1527 MR#: [id number] Acct: [id number] Name: RONY MONZON Rep #:[id number] : 1940 84 From: Scott Collier RNA PCP: Dr. George Vaughan MD Status:RE G SD Y Race: C Location: [place] [address] Anesthesia Postop Eval I Sum Postop Eval Completion status Anesthesia document: Postop Eval 1 completed: Yes Anesthesia Postop Eval I Summary Anesthesia Postop Eval I Summary: Anesthesia Postop Eval I: Assessment Summary Airway patent Yes 01/10/25 15:21 CHIEF MEDICAL TECHNOLOGIST.CORY Spontaneous unlabored Yes 01/10/25 15:21 CHIEF MEDICAL TECHNOLOGIST.OT respirations Mental status Awake,Calm 01/10/25 15:21 CHIEF MEDICAL TECHNOLOGIST.MDOT nausea No 01/10/25 15:21 CHIEF MEDICAL TECHNOLOGIST.MDOT Vomiting No 01/10/25 15:21 CHIEF MEDICAL TECHNOLOGISTKaushalMDANDRZEJ Anesthesia Postop Eval I: Fluid Summary Crystalloid volume administer 100 01/10/25 15:21 CHIEF MEDICAL TECHNOLOGISTOT (ml) Colloids volume administered ( ml) Blood Product volume administered (ml) Total IV fluid infused 100 01/10/25 15:21 CHIEF MEDICAL TECHNOLOGISTTIRSO Anesthesia Postop Eval I: Summary Notes Anesthesia Complication No 01/10/25 15:21 CHIEF MEDICAL TECHNOLOGIST.CORY Anesthesia Complication Comment: Post-operative progress note Anesthesia: Postop Eval II Evaluation Mental status: Awake and Calm Pain Level: 0 nausea: No Vomiting: No Complications Anesthesia Complication: No 01/10/25 1528 <Electronically signed by Scott Cornejo CRNA> Date _ Scott Corneoj CRNA Cosigner Signature: Date CC: ~ Signed [facility] Work Phone: Discharge summary Author Nini [facility] April 18, 2023 3:24pm Note Date/Time April 18, 2023 3:12pm [facility] Medical Records Department [address] [place] [address] Discharge Summary 04/18/23 1511 MR#: [id number] Acct: [id number] Name: RONY MONZON Rep #:[id number] : 1940 82 From: Nini Brown MD PCP: Dr. George Vaughan MD Status:AD M IN Location: [place] [address] Providers Date of Admission: 04/16/23 Date of [...] 71.2 H, Lymph % (Auto) 14.3 L, [place] % (Auto) 9.8, Eos % (Auto) 3.5, [...] Self Care Charges/Coding Visit Charges Inpatient E&M: 08769 Disch Hosp >30min 04/18/23 1520 <Electronically signed by Nini Brown MD> Cosigner Signature (if applicable): CC: Dr. George Vaughan MD; Dr. Nini Brown MD~ Signed [facility] Work Phone: Discharge summary Author Nini Brown [facility] April 18, 2023 3:25pm Note Date/Time April 18, 2023 3:25pm [facility] Medical Records Department [address] [place] [address] Instructions for Home/Discharge Instructions 04/18/23 1524 MR#: [id number] Acct: [id number] Name: RONY MONZON Rep #:[id number] : 1940 82 From: Nini Brown MD [...] can be placed): Home, Self Care 04/18/23 1525<Electronically signed by Nini Brown MD>Nini Brown MD CC: Dr. Juan Pike MD; Dr. George Vaughan MD ~ Signed [facility] Work Phone: Discharge summary Author Nawaf Ungershadi [facility] Note Date/Time July 29, 2024 2:1 7pm [facility] Medical Records Department [address] [place] [address] Discharge Summary 07/29/24 1413 MR#: [id number] Acct: [id number] Name: RONY MONZON Rep #:[id number] : 1940 84 From: Nawaf Leblanc DO PCP: Dr. George Vaughan MD Status:[facility] Location: [place] [address] Providers Date of Admission: 07/28/24 Primary Care [...] (Auto) 69.4, Lymph % (Auto) 14.7 L, [place] % (Auto) 9.9, Eos % (Auto) 4.7, [...] Self Care Charges/Coding Visit Charges Inpatient E&M: 33223 Disch Hosp 07/29/24 1417 <Electronically signed by Nawaf Leblanc DO> Cosigner Signature (if applicable): CC: Dr. Nawaf Leblanc DO; Dr. 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 and other lower urinary tract symptoms (LUTS) [facility]* Diagnosis Essential hypertension, benign- Primary Hyperlipidemia, [...] Other abnormal glucose documented in this encounter [facility]* Diagnosis Spinal stenosis of cervical region Spinal stenosis in cervical region documented in this encounter [facility]* Diagnosis Frequent falls Personal history of fall Tremor of right hand Headaches [facility]* Diagnosis Cerebrovascular accident (CVA), unspecified mechanism (HCC)- Primary Lightheadedness Dizziness and giddiness Cerebral infarction, unspecified mechanism (HCC) [facility]* Diagnosis Essential tremor- Primary Essential and other specified forms of tremor [facility]* Diagnosis Lightheadedness- Primary Dizziness and giddiness documented [facility]* Diagnosis COVID-19- Primary [facility]* Diagnosis Cerebral infarction, unspecified mechanism (HCC) documented in this encounter [facility]* Diagnosis Onset Date Resolution Status Atherosclerotic heart diseas e of [place] coronary artery without angina pectoris chronic Essential hypertension chron ic Pure hypercholesterolemia ch [facility] Work Phone: Evaluation note* Diagnosis Transient cerebral ischemia, unspecified type- Primary documented in this encounter [facility]* Diagnosis Headaches- Primary Frequent falls Personal history of fall Spinal stenosis of cervical region Spinal stenosis in cervical region Spinal stenosis of lumbar region, unspecified whether neurogenic 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 present Lightheadedness Dizziness and giddiness 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 Tremor of right hand Cerebrovascular accident (CVA), unspecified mechanism (HCC) [facility] Transient cerebral ischemia, unspecified type documented [facility] this encounter [facility]* Diagnosis Onset Date Resolution Status Atherosclerotic heart diseas e of [place] coronary artery without angina pectoris chronic Essential hypertension chron ic Pure hypercholesterolemia [facility] Atherosclerotic heart diseas e of [place] coronary artery without angina pectoris chronic Dyspnea chronic Essential hypertension chron ic Pure hypercholesterolemia [facility] Work Phone: Evaluation note* Diagnosis Essential hypertension, benign Coronary artery disease involving [place] heart without angina pectoris, unspecified vessel or lesion type documented in this encounter [facility]* Diagnosis Depression, unspecified depression type- Primary Essential hypertension, benign Hyperlipidemia, mixed Mixed hyperlipidemia Coronary artery disease involving [place] coronary artery of [place] heart without angina pectoris Gait instability Abnormality of gait Impaired fasting glucose documented in this encounter [facility] health note* Diagnosis Onset Date Resolution Status Atherosclerotic heart diseas e of [place] coronary artery without angina pectoris chronic Dyspnea chronic Essential hypertension chron ic Pure hypercholesterolemia [facility] Work Phone: Evaluation noteNo assessment information available [facility] Work Phone: Evaluation note* Diagnosis Ingrown nail Ingrowing nail Nail fungus Dermatophytosis of nail [facility] Diagnosis Headaches- Primary Frequent falls Personal history of fall Spinal stenosis of cervical region Spinal stenosis in cervical region Spinal stenosis of lumbar region, unspecified whether neurogenic 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 present 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 Lightheadedness Dizziness and giddiness Tremor of right hand Cerebrovascular accident (CVA), unspecified mechanism (HCC) [facility] Diagnosis History of total right hip arthroplasty- Primary [facility]* Diagnosis Depression, unspecified depression type [facility] this [facility]* Diagnosis Urinary frequency- Primary Dysuria [facility] Diagnosis Tremor of right hand [facility] Diagnosis Onset Date Resolution Status Chest pain acute [facility] Work Phone: Evaluation note* Diagnosis Calculus of gallbladder without cholecystitis without obstruction- Primary Calculus of gallbladder without mention of cholecystitis or obstruction [facility] Closed nondisplaced fracture of fifth metatarsal bone of left foot, initial encounter- Primary Foot pain, left Pain in limb Pain of toe of left foot Pain in limb [facility] History of total right hip arthroplasty [facility] Closed nondisplaced fracture of fifth metatarsal bone of left foot, initial encounter- Primary Pain of left calf Pain in limb [facility] Diagnosis Closed nondisplaced fracture of fifth metatarsal bone of left foot, initial encounter [facility] Diagnosis Closed nondisplaced fracture of fifth metatarsal bone of left foot, initial encounter- Primary [facility] Diagnosis Tremor of right hand- Primary Frequent falls Personal history of fall Spinal stenosis of cervical region Spinal stenosis in cervical region Spinal stenosis of lumbar region, unspecified whether neurogenic 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 present Lightheadedness Dizziness and giddiness Cerebrovascular accident (CVA), unspecified mechanism (HCC) Headaches Orthostatic hypotension 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 [facility] Diagnosis Essential hypertension, benign- Primary Hyperlipidemia, mixed Mixed hyperlipidemia Impaired fasting glucose Actinic keratosis Tremor Abnormal involuntary movements [facility] Diagnosis Preoperative testing- Primary Preoperative examination, unspecified Tremor Abnormal involuntary movements Vasovagal syncope Syncope and collapse REHAN on CPAP Obstructive sleep apnea (adult) (pediatric) Coronary artery disease involving [place] heart without angina pectoris, unspecified vessel or [...] residual deficits Headaches [facility] Diagnosis Preoperative testing- Primary Preoperative examination, unspecified Tremor Abnormal involuntary movements Vasovagal syncope Syncope and collapse REHAN on CPAP Obstructive sleep apnea (adult) (pediatric) Coronary artery disease involving [place] heart without angina pectoris, unspecified vessel or [...] Pain in limb [facility] Diagnosis Preoperative testing- Primary Preoperative examination, unspecified Tremor Abnormal involuntary movements Vasovagal syncope Syncope and collapse REHAN on CPAP Obstructive sleep apnea (adult) (pediatric) Coronary artery disease involving [place] heart without angina pectoris, unspecified vessel or lesion type Gastroesophageal reflux disease, esophagitis presence not specified CKD (chronic kidney disease) Stage 3, GFR 30-59 ml/min Chronic kidney disease, Stage III (moderate) Hyperlipidemia, mixed Mixed hyperlipidemia Essential hypertension, benign Primary osteoarthritis of right hip Primary localized osteoarthrosis, pelvic region and thigh Anemia, unspecified type Impaired fasting glucose Cough [facility] Diagnosis Preoperative testing- Primary Preoperative examination, unspecified Tremor Abnormal involuntary movements Vasovagal syncope Syncope and collapse REHAN on CPAP Obstructive sleep apnea (adult) (pediatric) Coronary artery disease involving [place] heart without angina pectoris, unspecified vessel or [...] unspecified depression type [facility] Diagnosis Preoperative testing- Primary Preoperative examination, unspecified Tremor Abnormal involuntary movements Vasovagal syncope Syncope and collapse REHAN on CPAP Obstructive sleep apnea (adult) (pediatric) Coronary artery disease involving [place] heart without angina pectoris, unspecified vessel or [...] D deficiency, unspecified [facility] Diagnosis Preoperative testing- Primary Preoperative examination, unspecified Tremor Abnormal involuntary movements Vasovagal syncope Syncope and collapse REHAN on CPAP Obstructive sleep apnea (adult) (pediatric) Coronary artery disease involving [place] heart without angina pectoris, unspecified vessel or [...] initial encounter- Primary documented in this encounter [facility] note* Diagnosis Preoperative testing- Primary Preoperative examination, unspecified Tremor Abnormal involuntary movements Vasovagal syncope Syncope and collapse REHAN on CPAP Obstructive sleep apnea (adult) (pediatric) Coronary artery disease involving [place] heart without angina pectoris, unspecified vessel or lesion type Gastroesophageal reflux disease, esophagitis presence not specified CKD (chronic kidney disease) Stage 3, GFR 30-59 ml/min Chronic kidney disease, Stage III (moderate) Hyperlipidemia, mixed Mixed hyperlipidemia Essential hypertension, benign Primary osteoarthritis of right hip Primary localized osteoarthrosis, pelvic region and thigh Anemia, unspecified type Impaired fasting glucose Essential hypertension, benign documented in this encounter [facility] note* Diagnosis Preoperative testing- Primary Preoperative examination, unspecified Tremor Abnormal involuntary movements Vasovagal syncope Syncope and collapse REHAN on CPAP Obstructive sleep apnea (adult) (pediatric) Coronary artery disease involving [place] heart without angina pectoris, unspecified vessel or [...] Impaired fasting glucose Coronary artery disease involving [place] heart without angina pectoris, unspecified vessel or [...] and musculoskeletal systems [facility] Diagnosis Preoperative testing- Primary Preoperative examination, unspecified Tremor Abnormal involuntary movements Vasovagal syncope Syncope and collapse REHAN on CPAP Obstructive sleep apnea (adult) (pediatric) Coronary artery disease involving [place] heart without angina pectoris, unspecified vessel or [...] in cervical region [facility] this [facility] Diagnosis Preoperative testing- Primary Preoperative examination, unspecified Tremor Abnormal involuntary movements Vasovagal syncope Syncope and collapse REHAN on CPAP Obstructive sleep apnea (adult) (pediatric) Coronary artery disease involving [place] heart without angina pectoris, unspecified vessel or lesion type Gastroesophageal reflux disease, esophagitis presence not specified CKD (chronic kidney disease) Stage 3, GFR 30-59 ml/min Chronic kidney disease, Stage III (moderate) Hyperlipidemia, mixed Mixed hyperlipidemia Essential hypertension, benign Primary osteoarthritis of right hip Primary localized osteoarthrosis, pelvic region and thigh Anemia, unspecified type Impaired fasting glucose Orthostatic hypotension- Primary documented in this [facility]* Diagnosis Preoperative testing- Primary Preoperative examination, unspecified Tremor Abnormal involuntary movements Vasovagal syncope Syncope and collapse REHAN on CPAP Obstructive sleep apnea (adult) (pediatric) Coronary artery disease involving [place] heart without angina pectoris, unspecified vessel or [...] and without gangrene documented in this encounter [facility] note* Diagnosis Preoperative testing- Primary Preoperative examination, unspecified Tremor Abnormal involuntary movements Vasovagal syncope Syncope and collapse REHAN on CPAP Obstructive sleep apnea (adult) (pediatric) Coronary artery disease involving [place] heart without angina pectoris, unspecified vessel or [...] and without gangrene documented in this encounter [facility] note* Diagnosis Onset Date Resolution Status Admit Date History of anemia acute November 292024 7:51am History of CAD (coronary art placido disease) acute November 29, 2024 7:51am Angina pectoris chronic November 7:51am [facility] Work Phone: Evaluation note* Diagnosis Preoperative testing- Primary Preoperative examination, unspecified Tremor Abnormal involuntary movements Vasovagal syncope Syncope and collapse REHAN on CPAP Obstructive sleep apnea (adult) (pediatric) Coronary artery disease involving [place] heart without angina pectoris, unspecified vessel or [...] Preoperative examination, unspecified Coronary artery disease involving [place] coronary artery of [place] heart without angina pectoris Essential hypertension, benign [...] Note - Sindy Denise APRN.CNP - 11/29/2024 10:37 AM EDT Associated Problem(s): [...] EDT Associated Problem(s): Coronary artery disease involving [place] coronary artery of [place] heart without angina pectoris Assessment: s/p stent 2011, c/w daily ASA, statin, and BB. Following [facility], reports normal stress earlier this year, records requested View External Cardiology - Miscellaneous Cardiac [ID [id number]] [facility] Diagnosis Preoperative testing- Primary Preoperative examination, unspecified Tremor Abnormal involuntary movements Vasovagal syncope Syncope and collapse REHAN on CPAP Obstructive sleep apnea (adult) (pediatric) Coronary artery disease involving [place] heart without angina pectoris, unspecified vessel or [...] Preoperative examination, unspecified Coronary artery disease involving [place] coronary artery of [place] heart without angina pectoris Essential hypertension, benign [...] and without gangrene [facility] Diagnosis Preoperative testing- Primary Preoperative examination, unspecified Tremor Abnormal involuntary movements Vasovagal syncope Syncope and collapse REHAN on CPAP Obstructive sleep apnea (adult) (pediatric) Coronary artery disease involving [place] heart without angina pectoris, unspecified vessel or [...] Preoperative examination, unspecified Coronary artery disease involving [place] coronary artery of [place] heart without angina pectoris Essential hypertension, benign [...] Abnormality of gait documented in this [facility]* Diagnosis Preoperative testing- Primary Preoperative examination, unspecified Tremor Abnormal involuntary movements Vasovagal syncope Syncope and collapse REHAN on CPAP Obstructive sleep apnea (adult) (pediatric) Coronary artery disease involving [place] heart without angina pectoris, unspecified vessel or [...] Preoperative examination, unspecified Coronary artery disease involving [place] coronary artery of [place] heart without angina pectoris Essential hypertension, benign [...] of breath History of CVA in adulthood Essential hypertension, benign- Primary Need for influenza vaccination Need for prophylactic vaccination and inoculation against influenza Hyperlipidemia, mixed Mixed hyperlipidemia Depression, unspecified depression type Gastroesophageal reflux disease, unspecified whether esophagitis present Impaired fasting glucose Coronary artery disease involving [place] coronary artery of [place] heart without angina pectoris Anemia, unspecified type Vitamin D deficiency Unspecified vitamin D deficiency Herpes zoster without complications Herpes zoster without mention of complication Esophageal stricture Stricture and stenosis of esophagus Light-headedness Dizziness and giddiness [facility] Additional Instructions Please follow-up outpatient.[facility] Work Phone: Hospital Discharge instructions Additional Instructions Follow-up with your primary care physician for your chest pain. Follow-up with Dr. Slater for your umbilical hernia. Follow-up with Dr. Seals for your intermittent difficulty swallowing.[facility] Work Phone: Hospital Discharge instructionsAdditional Instructions Take medication that was sent to your pharmacy as prescribed for the shingles. Rotate Tylenol and ibuprofen [id number] for pain control when you do this you take 7 every 3 hours for pain max dose of Tylenol in 24 hours 4000 mg max dose of ibuprofen in 24 hours 3200 mg. Return with worsening symptoms or any concerns.[facility] Work Phone: Reason for referral (narrative)* Diagnostic Procedure Only (Routine) - Closed Specialty Diagnoses / Procedures Referred By Pablo t Referred To Contact MOLECULAR & FUNCTIONAL IMAGING Diagnoses Calculus of gallbladder without cholecystitis without obstruction Procedures NM HEPATOBILIARY W EF AND/OR RX HEPATOBIL SYST IMAG INC GB W/PHARMA INTERVENJ George Vaughan MD [address] [place] [address] Molecular & Functional Imaging [address] [id number] Referral ID Status Reason Start Date Expiration Date V isits Requested Visits Authorized [id number] Closed Auto-Generate d Referral 05/09/2023 06/07/2024 1 1 [facility] for referral (narrative)* Outpatient Procedure (Routine) - Authorized Specialty Diagnoses / Procedures Referred By Contac t Referred To Contact [facility] Diagnoses Closed nondisplaced fracture of fifth metatarsal bone of left foot, initial encounter Pain of left calf Procedures US LEG VEIN DVT UNL VAS LAB DUP-SCAN XTR VEINS UNILATERAL/LIMITED STUDY Omar Concepcion [address] [facility] [address] [facility] [place] [address] [place] [address] Referral ID Status Reason Start Date Expiration Date Visits Requested Visits Authorized [id number] Authorized Auto-Generat ed Referral 08/21/2023 08/20/2024 1 1 * Diagnostic Procedure Only (Routine) - Closed Specialty Diagnoses / Procedures Referred By Contac t Referred To Contact XR IMAGING Diagnoses Closed nondisplaced fracture of fifth metatarsal bone of left foot, initial encounter Procedures XR FOOT GENERAL 3V AP/LAT/OBL LEFT RADEX FOOT COMPLETE MINIMUM 3 VIEWS Omar Concepcion [address] [place] [address] [place] [address] Referral ID Status Reason Start Date Expiration Date V isits Requested Visits Authorized [id number] Closed Auto-Generate d Referral 08/21/2023 09/19/2024 1 1 [facility] for referral (narrative)* Diagnostic Procedure Only (Routine) - Pending Review Specialty Diagnoses / Procedures Referred By Contac t Referred To Contact XR IMAGING Diagnoses Closed nondisplaced fracture of fifth metatarsal bone of left foot, initial encounter Procedures XR FOOT GENERAL 3V AP/LAT/OBL LEFT RADEX FOOT COMPLETE MINIMUM 3 VIEWS Omar Concepcion [address] [place] [address] [place] [address] Referral ID Status Reason Start Date Expiration Date Visits Requested Visits Authorized [id number] Pending Review Auto-Generat ed Referral 08/25/2023 09/23/2024 1 1 [facility] for referral (narrative)* Diagnostic Procedure Only (Urgent) - Closed Specialty Diagnoses / Procedures Referred By Contac t Referred To Contact XR IMAGING Diagnoses Foot pain, left Pain of toe of left foot Procedures XR FOOT GENERAL 3V AP/LAT/OBL LEFT RADEX FOOT COMPLETE MINIMUM 3 VIEWS Zander Chavez APRN.CNP [address] [place] [address] [place] [address] Referral ID Status Reason Start Date Expiration Date V isits Requested Visits Authorized [id number] Closed Auto-Generate d Referral 08/11/2023 09/09/2024 1 1 [facility] for referral (narrative)No reason for referral information [facility] Work Phone: Reason for visit Narrative* Diagnostic Procedure Only (Routine) - Closed Specialty Diagnoses / Procedures Referred By Contac t Referred To Contact XR IMAGING Diagnoses Closed nondisplaced fracture of fifth metatarsal bone of left foot, initial encounter Procedures XR FOOT GENERAL 3V AP/LAT/OBL LEFT RADEX FOOT COMPLETE MINIMUM 3 VIEWS Omar [address] [place] [address] [place] [address] Referral ID Status Reason Start Date Expiration Date V isits Requested Visits Authorized [id number] Closed Auto-Generate d Referral 08/21/2023 09/19/2024 1 1 [facility] for visit Narrative* Diagnostic Procedure Only (Routine) - Closed Specialty Diagnoses / Procedures Referred By Contac t Referred To Contact XR IMAGING Diagnoses Closed nondisplaced fracture of fifth metatarsal bone of left foot, initial encounter Procedures XR FOOT GENERAL 3V AP/LAT/OBL LEFT RADEX FOOT COMPLETE MINIMUM 3 VIEWS Omar Concepcion [address] [address] [place] [address] Referral ID Status Reason Start Date Expiration Date V isits Requested Visits Authorized [id number] Closed Auto-Generate d Referral 08/25/2023 09/23/2024 1 1 [facility] for visit Narrative* Diagnostic Procedure Only (Urgent) - Closed Specialty Diagnoses / Procedures Referred By Contac t Referred To Contact XR IMAGING Diagnoses Foot pain, left Pain of toe of left foot Procedures XR FOOT GENERAL 3V AP/LAT/OBL LEFT RADEX FOOT COMPLETE MINIMUM 3 VIEWS Zander Chavez, [employer] [address] [place] [address] [place] [address] Referral ID Status Reason Start Date Expiration Date V isits Requested Visits Authorized [id number] Closed Auto-Generate d Referral 08/11/2023 09/09/2024 1 1 [facility] Reason for Referral Specialty Diagnoses / Procedures Referred By Contac t Referred To Contact Neurology Diagnoses Frequent falls Tremor of right hand Procedures CONSULT TO NEUROLOGY OFFICE/OUTPATIENT NEW HIGH MDM 60-74 MINUTES Delia Waterman, [employer] [address] [place] [address] Referral ID Status Reason Start Date Expiration Date Visits Requested Visits Authorized [id number] Authorized PCP Requested Referral 09/13/2021 09/13/2022 1 1 Specialty Diagnoses / Procedures Referred By Contac t Referred To Contact MR IMAGING Diagnoses Spinal stenosis of cervical region Procedures MRI CERVICAL SPINE WO IVCON MRI SPINAL CANAL CERVICAL W/O CONTRAST Halima Hollins, [employer] [address] [place] [address] Mr Imaging Referral ID Status Reason Start Date Expiration Date V isits Requested Visits Authorized [id number] Closed Auto-Generate d Referral 11/11/2021 12/11/2022 1 1 Specialty Diagnoses / Procedures Referred By Contac t Referred To Contact MR IMAGING Diagnoses Frequent falls Tremor of right hand Headaches Procedures MRI BRAIN WO IVCON MRI BRAIN BRAIN STEM W/O CONTRAST MATERIAL Halima Harvey, [employer] [address] [place] [address] Mr Imaging Referral ID Status Reason Start Date Expiration Date V isits Requested Visits Authorized [id number] Closed Auto-Generate d Referral 11/11/2021 12/11/2022 1 1 Specialty Diagnoses / Procedures Referred By Contac t Referred To Contact CT IMAGING Diagnoses Cerebral infarction, unspecified mechanism (HCC) Procedures CTA NECK W IVCON CT ANGIOGRAPHY NECK W/CONTRAST/NONCONTRAST Halima Harvey, [employer] [address] [place] [address] Ct Imaging Referral ID Status Reason Start Date Expiration Date Visits Requested Visits Authorized [id number] Pending Review Auto-Generat ed Referral 12/09/2021 01/08/2023 1 1 Specialty Diagnoses / Procedures Referred By Contac t Referred To Contact CT IMAGING Diagnoses Cerebral infarction, unspecified mechanism (HCC) Procedures CTA HEAD W IVCON CT ANGIOGRAPHY HEAD W/CONTRAST/NONCONTRAST Halima Harvey, [employer] [address] [place] [address] Ct Imaging Referral ID Status Reason Start Date Expiration Date Visits Requested Visits Authorized [id number] Pending Review Auto-Generat ed Referral 12/09/2021 01/08/2023 1 1 Referral ID Status Reason Start Date Expiration Date V isits Requested Visits Authorized [id number] Closed Auto-Generate d Referral 12/09/2021 01/08/2023 1 1 Referral ID Status Reason Start Date Expiration Date V isits Requested Visits Authorized [id number] Closed Auto-Generate d Referral 12/09/2021 01/08/2023 1 1 Specialty Diagnoses / Procedures Referred By Contac t Referred To Contact MR IMAGING Diagnoses Transient cerebral ischemia, unspecified type Procedures MRI BRAIN WO IVCON MRI BRAIN BRAIN STEM W/O CONTRAST MATERIAL Halima Harvey, [employer] [address] [place] [address] Mr Imaging Referral ID Status Reason Start Date Expiration Date Visits Requested Visits Authorized [id number] Pending Review Auto-Generat ed Referral 02/04/2022 03/06/2023 1 1 Specialty Diagnoses / Procedures Referred By Contac t Referred To Contact Neurosurgery Diagnoses Spinal stenosis of cervical region Myelomalacia of cervical cord (HCC) Procedures CONSULT TO NEUROSURGERY OFFICE/OUTPATIENT [facility] [place] 60-74 MINUTES Halima Harvey, [employer] [address] [place] [place] [address] Referral ID Status Reason Start Date Expiration Date Visits Requested Visits Authorized [id number] Authorized PCP Requested Referral 02/17/2022 02/17/2023 1 1 Referral ID Status Reason Start Date Expiration Date V isits Requested Visits Authorized [id number] Closed Auto-Generate d Referral 02/04/2022 03/06/2023 1 1 Specialty Diagnoses / Procedures Referred By Contac t Referred To Contact Podiatry Diagnoses Closed nondisplaced fracture of fifth metatarsal bone of left foot, initial encounter Procedures CONSULT TO PODIATRY OFFICE/OUTPATIENT [facility] [place] 60 MINUTES Zander Chavez, [employer] [address] [place] [address] Referral ID Status Reason Start Date Expiration Date Visits Requested Visits Authorized [id number] Authorized PCP Requested Referral 08/11/2023 08/10/2024 1 1 Specialty Diagnoses / Procedures Referred By Contac t Referred To Contact XR IMAGING Diagnoses Foot pain, left Pain of toe of left foot Procedures XR FOOT GENERAL 3V AP/LAT/OBL LEFT RADEX FOOT COMPLETE MINIMUM 3 VIEWS Zander Chavez, [employer] [address] [place] [address] [place] [address] Referral ID Status Reason Start Date Expiration Date V isits Requested Visits Authorized [id number] Closed Auto-Generate d Referral 08/11/2023 09/09/2024 1 1 Advance Directives No Advanced Directives Records FoundDocuments on File Type Date Recorded 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 Advance Directive(s) 08/08/2018 7:06 AM Advance Directive(s) 07/10/2018 1:52 PM Advance Directive(s) 02/24/2017 8:00 AM Documents on File Type Date Recorded 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 Advance Directive(s) 08/08/2018 7:06 AM Advance Directive(s) 07/10/2018 1:52 PM Advance Directive(s) 02/24/2017 8:00 AM Advance Directive Response Recorded Date/ Time Name of Medical Power of Rigging Man January 27, 2022 2:13pm Advance Directives No April 3:01pm Living Will Yes January 27, 2 022 2:13pm Power of Rigging Man Yes January 27, 2022 2:13pm Advance Directive Response Recorded Date/ Time Advance Directives No April 2:01pm Living Will Yes January 27, 2 022 1:13pm Power of Rigging Man Yes January 27, 2022 1:13pm Advance Directive Response Recorded Date/ Time Advance Directives No April 3:01pm Living Will Yes January 27, 2 022 2:13pm Power of Rigging Man Yes January 27, 2022 2:13pm Advance Directive Response Recorded Date/ Time Name of Medical Power of Rigging Man Tere Nevarezer March 13, 2023 12:33pm Advance Directives No April 3:01pm Living Will Yes March 13 12:33pm Power of Rigging Man Yes March 13, 2023 12:33pm Name of Medical Power of Rigging Man TERE DARIUSZ-- February 24, 2023 8:15am Advance Directive Response Recorded Date/ Time Name of Medical Power of Rigging Man Tere Na March 13, 2023 11:33am Name of Medical Power of Rigging Man TERE DARIUSZ-- February 24, 2023 7:15am Name of Medical Power of Rigging Man Tere Na April 16, 2023 11:16am Advance Directives No April 2:01pm Living Will Yes April 16, 023 11:16am Power of Rigging Man Yes April 16, 2023 11:16am Advance Directive Response Recorded Date/ Time Name of Medical Power of Rigging Man Tere Monzon March 13, 2023 11:33am Name of Medical Power of Rigging Man TERE ARZOLA-- February 24, 2023 7:15am Name of Medical Power of Rigging Man tere April 16, 2023 3:58pm Advance Directives No April 2:01pm Living Will Yes April 16, 2 023 3:58pm Power of Rigging Man Yes April 16, 2023 3:58pm Advance Directive Response Recorded Date/ Time Advance Directives No April 3:01pm Living Will Yes April 16, 2 023 4:58pm Power of Rigging Man Yes April 16, 2023 4:58pm Advance Directive Response Recorded Date/ Time Living Will No July 28, 2024 3:24pm Power of Rigging Man No July 28 3:24pm Advance Directives No April 3:01pm Advance Directive Response Recorded Date/ Time Living Will No July 28, 2024 3:24pm Do you have a Healthcare Power of Rigging Man? No July 28, 2024 3:24pm Do you have a Healthcare Power of Rigging Man? Yes November 13, 2024 2:03pm Advance Directives No April 3:01pm Advance Directive Response Recorded Date/ Time Do you have a Healthcare Power of Rigging Man? Yes November 13, 2024 2:03pm Advance Directives No April 3:01pm Advance Directive Response Recorded Date/ Time Do you have a Healthcare Power of Rigging Man? Yes January 08, 2025 1:03pm Do you have a Healthcare Power of Rigging Man? Yes November 13, 2024 2:03pm Advance Directives No April 3:01pm Advance Directive Response Recorded Date/ Time Do you have a Healthcare Power of Rigging Man? Yes January 08, 2025 1:03pm Do you have a Healthcare Power of Rigging Man? Yes November 13, 2024 2:03pm Do you have a Healthcare Power of Rigging Man? No January 27, 2025 10:00pm Advance Directives No April 3:01pm Health Concerns Infection Onset Date Last Indicated Resolved Time COVID-19 Confirmed 01/19/2022 01/19/2022 Infection Onset Date Last Indicated Resolved Time COVID-19 Confirmed 01/19/2022 01/19/2022 Chief Complaint and Reason for Visit Chief Complaint 9 M FU SOB Reason for Visit Atherosclerotic hear t disease of [place] coronary artery without angina pectoris Essential hypertension Pure hypercholesterolemia Chief Complaint 9 M FU SOB 3 M FU CVA Reason for Visit Atherosclerotic hear t disease of [place] coronary artery without angina pectoris Essential hypertension Pure hypercholesterolemia Atherosclerotic heart disease of [place] coronary artery without angina pectoris Dyspnea Essential hypertension Pure hypercholesterolemia Chief Complaint CVA 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 Atherosclerotic hear t disease of [place] coronary artery without angina pectoris Dyspnea Essential hypertension Pure hypercholesterolemia Chief Complaint EORDERS ARTHROPATHY OF LUMBAR Chief Complaint SOB [facility] [place] Reason for Visit Atherosclerotic hear t disease of [place] coronary artery without angina pectoris Essential hypertension [...] Hospital FU December 02, 2024 9:53 am Reason [...] BEFORE SURGERY November 29, 2024 7:51 am [facility] December 02, 2024 9:53 am DIFFICULTY SWALLOWING [...] 41pm Dysphagia January 10, 2025 1: 41pm Chief Complaint Admit Date foreign body November 13, 2024 12:4 7pm FU BEFORE SURGERY November 29, 2024 7:51 am Hospital December 02, 2024 9:53 am DIFFICULTY SWALLOWING December 23, 2024 9 :15am allergic reaction January 27, 2025 8:48pm Chief Complaint Admit Date foreign body November 13, 2024 12:4 7pm FU BEFORE SURGERY November 29, 2024 7:51 am Hospital December 02, 2024 9:53 am DIFFICULTY SWALLOWING December 23, 2024 9 :15am allergic reaction January 27, 2025 8:48pm Procedure F/U February 11, 2025 2:53pm Reason for Visit Admit Date History of CAD (coronary artery disease) November 29, 2024 7:51am Pre-operative cardiovascular examination November 29, 2024 7:51am Essential hypertension November 29, 2024 7 :51am Pure hypercholesterolemia November 29 7:51am Chronic cough December 02, 2024 9:53 am Dysphagia December 02, 2024 9:53 am Chronic cough January 10, 2025 1: 41pm Dysphagia January 10, 2025 1: 41pm Chronic cough February 11, 2025 2:53pm Dysphagia February 11, 2025 2:53pm Family History No Family History Records Found [...] or prosecute any alcohol or drug abuse patient.[facility] the event this information is protected by the Federal Confidentiality of Alcohol and Drug Abuse Patient Records regulations: The Federal rules restrict any use of the information to criminally investigate or prosecute any alcohol or drug abuse patient.[facility] CenterIn the event this information is protected by the Federal Confidentiality of Alcohol and Drug Abuse Patient Records regulations: The Federal rules restrict any use of the information to criminally investigate or prosecute any alcohol or drug abuse patient.[facility] CenterIn the event this information is protected by the Federal Confidentiality of Alcohol and Drug Abuse Patient Records regulations: The Federal rules restrict any use of the information to criminally investigate or prosecute any alcohol or drug abuse patient.[facility] CenterIn the event this information is protected by the Federal Confidentiality of Alcohol and Drug Abuse Patient Records regulations: The Federal rules restrict any use of the information to criminally investigate or prosecute any alcohol or drug abuse patient.[facility] CenterIn the event this information is protected by the Federal Confidentiality of Alcohol and Drug Abuse Patient Records regulations: The Federal rules restrict any use of the information to criminally investigate or prosecute any alcohol or drug abuse patient.[facility] CenterIn the event this information is protected by the Federal Confidentiality of Alcohol and Drug Abuse Patient Records regulations: The Federal rules restrict any use of the information to criminally investigate or prosecute any alcohol or drug abuse patient.[facility] CenterIn the event this information is protected by the Federal Confidentiality of Alcohol and Drug Abuse Patient Records regulations: The Federal rules restrict any use of the information to criminally investigate or prosecute any alcohol or drug abuse patient.[facility] CenterIn the event this information is protected by the Federal Confidentiality of Alcohol and Drug Abuse Patient Records regulations: The Federal rules restrict any use of the information to criminally investigate or prosecute any alcohol or drug abuse patient.[facility] CenterIn the event this information is protected by the Federal Confidentiality of Alcohol and Drug Abuse Patient Records regulations: The Federal rules restrict any use of the information to criminally investigate or prosecute any alcohol or drug abuse patient.[facility] CenterIn the event this information is protected by the Federal Confidentiality of Alcohol and Drug Abuse Patient Records regulations: The Federal rules restrict any use of the information to criminally investigate or prosecute any alcohol or drug abuse patient.[facility] CenterIn the event this information is protected by the Federal Confidentiality of Alcohol and Drug Abuse Patient Records regulations: The Federal rules restrict any use of the information to criminally investigate or prosecute any alcohol or drug abuse patient.[facility] CenterIn the event this information is protected by the Federal Confidentiality of Alcohol and Drug Abuse Patient Records regulations: The Federal rules restrict any use of the information to criminally investigate or prosecute any alcohol or drug abuse patient.[facility] CenterIn the event this information is protected by the Federal Confidentiality of Alcohol and Drug Abuse Patient Records regulations: The Federal rules restrict any use of the information to criminally investigate or prosecute any alcohol or drug abuse patient.[facility] CenterIn the event this information is protected by the Federal Confidentiality of Alcohol and Drug Abuse Patient Records regulations: The Federal rules restrict any use of the information to criminally investigate or prosecute any alcohol or drug abuse patient.[facility] CenterIn the event this information is protected by the Federal Confidentiality of Alcohol and Drug Abuse Patient Records regulations: The Federal rules restrict any use of the information to criminally investigate or prosecute any alcohol or drug abuse patient.[facility] CenterIn the event this information is protected by the Federal Confidentiality of Alcohol and Drug Abuse Patient Records regulations: The Federal rules restrict any use of the information to criminally investigate or prosecute any alcohol or drug abuse patient.[facility] CenterIn the event this information is protected by the Federal Confidentiality of Alcohol and Drug Abuse Patient Records regulations: The Federal rules restrict any use of the information to criminally investigate or prosecute any alcohol or drug abuse patient.[facility] CenterIn the event this information is protected by the Federal Confidentiality of Alcohol and Drug Abuse Patient Records regulations: The Federal rules restrict any use of the information to criminally investigate or prosecute any alcohol or drug abuse patient.[facility] CenterIn the event this information is protected by the Federal Confidentiality of Alcohol and Drug Abuse Patient Records regulations: The Federal rules restrict any use of the information to criminally investigate or prosecute any alcohol or drug abuse patient.[facility] CenterIn the event this information is protected by the Federal Confidentiality of Alcohol and Drug Abuse Patient Records regulations: The Federal rules restrict any use of the information to criminally investigate or prosecute any alcohol or drug abuse patient.[facility] CenterIn the event this information is protected by the Federal Confidentiality of Alcohol and Drug Abuse Patient Records regulations: The Federal rules restrict any use of the information to criminally investigate or prosecute any alcohol or drug abuse patient.[facility] CenterIn the event this information is protected by the Federal Confidentiality of Alcohol and Drug Abuse Patient Records regulations: The Federal rules restrict any use of the information to criminally investigate or prosecute any alcohol or drug abuse patient.[facility] CenterIn the event this information is protected by the Federal Confidentiality of Alcohol and Drug Abuse Patient Records regulations: The Federal rules restrict any use of the information to criminally investigate or prosecute any alcohol or drug abuse patient.[facility] CenterIn the event this information is protected by the Federal Confidentiality of Alcohol and Drug Abuse Patient Records regulations: The Federal rules restrict any use of the information to criminally investigate or prosecute any alcohol or drug abuse patient.[facility] CenterIn the event this information is protected by the Federal Confidentiality of Alcohol and Drug Abuse Patient Records regulations: The Federal rules restrict any use of the information to criminally investigate or prosecute any alcohol or drug abuse patient.[facility] CenterIn the event this information is protected by the Federal Confidentiality of Alcohol and Drug Abuse Patient Records regulations: The Federal rules restrict any use of the information to criminally investigate or prosecute any alcohol or drug abuse patient.[facility] CenterIn the event this information is protected by the Federal Confidentiality of Alcohol and Drug Abuse Patient Records regulations: The Federal rules restrict any use of the information to criminally investigate or prosecute any alcohol or drug abuse patient.[facility] CenterIn the event this information is protected by the Federal Confidentiality of Alcohol and Drug Abuse Patient Records regulations: The Federal rules restrict any use of the information to criminally investigate or prosecute any alcohol or drug abuse patient.[facility] CenterIn the event this information is protected by the Federal Confidentiality of Alcohol and Drug Abuse Patient Records regulations: The Federal rules restrict any use of the information to criminally investigate or prosecute any alcohol or drug abuse patient.[facility] CenterIn the event this information is protected by the Federal Confidentiality of Alcohol and Drug Abuse Patient Records regulations: The Federal rules restrict any use of the information to criminally investigate or prosecute any alcohol or drug abuse patient.[facility] CenterIn the event this information is protected by the Federal Confidentiality of Alcohol and Drug Abuse Patient Records regulations: The Federal rules restrict any use of the information to criminally investigate or prosecute any alcohol or drug abuse patient.[facility] CenterIn the event this information is protected by the Federal Confidentiality of Alcohol and Drug Abuse Patient Records regulations: The Federal rules restrict any use of the information to criminally investigate or prosecute any alcohol or drug abuse patient.[facility] CenterIn the event this information is protected by the Federal Confidentiality of Alcohol and Drug Abuse Patient Records regulations: The Federal rules restrict any use of the information to criminally investigate or prosecute any alcohol or drug abuse patient.[facility] the event this information is protected by the Federal Confidentiality of Alcohol and Drug Abuse Patient Records regulations: The Federal rules restrict any use of the information to criminally investigate or prosecute any alcohol or drug abuse patient.[facility] CenterIn the event this information is protected by the Federal Confidentiality of Alcohol and Drug Abuse Patient Records regulations: The Federal rules restrict any use of the information to criminally investigate or prosecute any alcohol or drug abuse patient.[facility] CenterIn the event this information is [...] or prosecute any alcohol or drug abuse patient.[facility] CenterIn the event this information is protected by the Federal Confidentiality of Alcohol and Drug Abuse Patient Records regulations: The Federal rules restrict any use of the information to criminally investigate or prosecute any alcohol or drug abuse patient.[facility] CenterIn the event this information is protected by the Federal Confidentiality of Alcohol and Drug Abuse Patient Records regulations: The Federal rules restrict any use of the information to criminally investigate or prosecute any alcohol or drug abuse patient.[facility] CenterIn the event this information is protected by the Federal Confidentiality of Alcohol and Drug Abuse Patient Records regulations: The Federal rules restrict any use of the information to criminally investigate or prosecute any alcohol or drug abuse patient.[facility] CenterIn the event this information is protected by the Federal Confidentiality of Alcohol and Drug Abuse Patient Records regulations: The Federal rules restrict any use of the information to criminally investigate or prosecute any alcohol or drug abuse patient.[facility] CenterIn the event this information is protected by the Federal Confidentiality of Alcohol and Drug Abuse Patient Records regulations: The Federal rules restrict any use of the information to criminally investigate or prosecute any alcohol or drug abuse patient.[facility] CenterIn the event this information is protected by the Federal Confidentiality of Alcohol and Drug Abuse Patient Records regulations: The Federal rules restrict any use of the information to criminally investigate or prosecute any alcohol or drug abuse patient.[facility] CenterIn the event this information is protected by the Federal Confidentiality of Alcohol and Drug Abuse Patient Records regulations: The Federal rules restrict any use of the information to criminally investigate or prosecute any alcohol or drug abuse patient.[facility] CenterIn the event this information is protected by the Federal Confidentiality of Alcohol and Drug Abuse Patient Records regulations: The Federal rules restrict any use of the information to criminally investigate or prosecute any alcohol or drug abuse patient.[facility] CenterIn the event this information is protected by the Federal Confidentiality of Alcohol and Drug Abuse Patient Records regulations: The Federal rules restrict any use of the information to criminally investigate or prosecute any alcohol or drug abuse patient.[facility] CenterIn the event this information is protected by the Federal Confidentiality of Alcohol and Drug Abuse Patient Records regulations: The Federal rules restrict any use of the information to criminally investigate or prosecute any alcohol or drug abuse patient.[facility] CenterIn the event this information is protected by the Federal Confidentiality of Alcohol and Drug Abuse Patient Records regulations: The Federal rules restrict any use of the information to criminally investigate or prosecute any alcohol or drug abuse patient.[facility] CenterIn the event this information is protected by the Federal Confidentiality of Alcohol and Drug Abuse Patient Records regulations: The Federal rules restrict any use of the information to criminally investigate or prosecute any alcohol or drug abuse patient.[facility] CenterIn the event this information is protected by the Federal Confidentiality of Alcohol and Drug Abuse Patient Records regulations: The Federal rules restrict any use of the information to criminally investigate or prosecute any alcohol or drug abuse patient.[facility] CenterIn the event this information is protected by the Federal Confidentiality of Alcohol and Drug Abuse Patient Records regulations: The Federal rules restrict any use of the information to criminally investigate or prosecute any alcohol or drug abuse patient.[facility] CenterIn the event this information is protected by the Federal Confidentiality of Alcohol and Drug Abuse Patient Records regulations: The Federal rules restrict any use of the information to criminally investigate or prosecute any alcohol or drug abuse patient.[facility] CenterIn the event this information is protected by the Federal Confidentiality of Alcohol and Drug Abuse Patient Records regulations: The Federal rules restrict any use of the information to criminally investigate or prosecute any alcohol or drug abuse patient.[facility] CenterIn the event this information is protected by the Federal Confidentiality of Alcohol and Drug Abuse Patient Records regulations: The Federal rules restrict any use of the information to criminally investigate or prosecute any alcohol or drug abuse patient.[facility] CenterIn the event this information is protected by the Federal Confidentiality of Alcohol and Drug Abuse Patient Records regulations: The Federal rules restrict any use of the information to criminally investigate or prosecute any alcohol or drug abuse patient.[facility] CenterIn the event this information is protected by the Federal Confidentiality of Alcohol and Drug Abuse Patient Records regulations: The Federal rules restrict any use of the information to criminally investigate or prosecute any alcohol or drug abuse patient.[facility] CenterIn the event this information is protected by the Federal Confidentiality of Alcohol and Drug Abuse Patient Records regulations: The Federal rules restrict any use of the information to criminally investigate or prosecute any alcohol or drug abuse patient.[facility] CenterIn the event this information is protected by the Federal Confidentiality of Alcohol and Drug Abuse Patient Records regulations: The Federal rules restrict any use of the information to criminally investigate or prosecute any alcohol or drug abuse patient.[facility] CenterIn the event this information is protected by the Federal Confidentiality of Alcohol and Drug Abuse Patient Records regulations: The Federal rules restrict any use of the information to criminally investigate or prosecute any alcohol or drug abuse patient.[facility] CenterIn the event this information is protected by the Federal Confidentiality of Alcohol and Drug Abuse Patient Records regulations: The Federal rules restrict any use of the information to criminally investigate or prosecute any alcohol or drug abuse patient.[facility] CenterIn the event this information is protected by the Federal Confidentiality of Alcohol and Drug Abuse Patient Records regulations: The Federal rules restrict any use of the information to criminally investigate or prosecute any alcohol or drug abuse patient.[facility] CenterIn the event this information is protected by the Federal Confidentiality of Alcohol and Drug Abuse Patient Records regulations: The Federal rules restrict any use of the information to criminally investigate or prosecute any alcohol or drug abuse patient.[facility] CenterIn the event this information is protected by the Federal Confidentiality of Alcohol and Drug Abuse Patient Records regulations: The Federal rules restrict any use of the information to criminally investigate or prosecute any alcohol or drug abuse patient.[facility] CenterIn the event this information is protected by the Federal Confidentiality of Alcohol and Drug Abuse Patient Records regulations: The Federal rules restrict any use of the information to criminally investigate or prosecute any alcohol or drug abuse patient.[facility] [facility] CenterIn the event this information is protected by the Federal Confidentiality of Alcohol and Drug Abuse Patient Records regulations: The Federal rules restrict any use of the information to criminally investigate or prosecute any alcohol or drug abuse patient.[facility] CenterIn the event this information is protected by the Federal Confidentiality of Alcohol and Drug Abuse Patient Records regulations: The Federal rules restrict any use of the information to criminally investigate or prosecute any alcohol or drug abuse patient.[facility] CenterIn the event this information is protected by the Federal Confidentiality of Alcohol and Drug Abuse Patient Records regulations: The Federal rules restrict any use of the information to criminally investigate or prosecute any alcohol or drug abuse patient.[facility] CenterIn the event this information is protected by the Federal Confidentiality of Alcohol and Drug Abuse Patient Records regulations: The Federal rules restrict any use of the information to criminally investigate or prosecute any alcohol or drug abuse patient.[facility] CenterIn the event this information is protected by the Federal Confidentiality of Alcohol and Drug Abuse Patient Records regulations: The Federal rules restrict any use of the information to criminally investigate or prosecute any alcohol or drug abuse patient.[facility] CenterIn the event this information is protected by the Federal Confidentiality of Alcohol and Drug Abuse Patient Records regulations: The Federal rules restrict any use of the information to criminally investigate or prosecute any alcohol or drug abuse patient.[facility] CenterIn the event this information is protected by the Federal Confidentiality of Alcohol and Drug Abuse Patient Records regulations: The Federal rules restrict any use of the information to criminally investigate or prosecute any alcohol or drug abuse patient.[facility] CenterIn the event this information is protected by the Federal Confidentiality of Alcohol and Drug Abuse Patient Records regulations: The Federal rules restrict any use of the information to criminally investigate or prosecute any alcohol or drug abuse patient.[facility] CenterIn the event this information is protected by the Federal Confidentiality of Alcohol and Drug Abuse Patient Records regulations: The Federal rules restrict any use of the information to criminally investigate or prosecute any alcohol or drug abuse patient.[facility] CenterIn the event this information is protected by the Federal Confidentiality of Alcohol and Drug Abuse Patient Records regulations: The Federal rules restrict any use of the information to criminally investigate or prosecute any alcohol or drug abuse patient.[facility] CenterIn the event this information is protected by the Federal Confidentiality of Alcohol and Drug Abuse Patient Records regulations: The Federal rules restrict any use of the information to criminally investigate or prosecute any alcohol or drug abuse patient.[facility] CenterIn the event this information is protected by the Federal Confidentiality of Alcohol and Drug Abuse Patient Records regulations: The Federal rules restrict any use of the information to criminally investigate or prosecute any alcohol or drug abuse patient.[facility] Reason for Visit (unrecogniz ed [...] CANAL CERVICAL W/O CONTRAST MATRL Halima Harvey, VIDA.FRONT DESK ADMIN [address] [id number] Mr Imaging Referral ID Status Reason Start Date Expiration Date V isits Requested Visits Authorized [id number] Closed Auto-Generate d Referral 11/11/2021 12/11/2022 1 1 Specialty Diagnoses / Procedures Referred By Contac t Referred To Contact MR IMAGING Diagnoses Frequent falls Tremor of right hand Headaches Procedures MRI BRAIN WO IVCON MRI BRAIN BRAIN STEM W/O CONTRAST MATERIAL Halima Harvey APRN.FRONT DESK ADMIN [address] [place] [address] Mr Imaging Referral ID Status Reason Start Date Expiration Date V isits Requested Visits Authorized [id number] Closed Auto-Generate d Referral 11/11/2021 12/11/2022 1 1 Reason Comments Results Reason Comments Refill Request Reason Comments New Patient Evaluation Reason Comments Lab Orders Reason Comments Covid Test Result Reason Comments Radiology CT Specialty Diagnoses / Procedures Referred By Contac t Referred To Contact CT IMAGING Diagnoses Cerebral infarction, unspecified mechanism (HCC) Procedures CTA NECK W IVCON CT ANGIOGRAPHY NECK W/CONTRAST/NONCONTRAST Halima Harvey, FIRE LIEUTENANT.FRONT DESK ADMIN [address] [place] [address] Ct Imaging Referral ID Status Reason Start Date Expiration Date V isits Requested Visits Authorized [id number] Closed Auto-Generate d Referral 12/09/2021 01/08/2023 1 1 Reason Comments Results Reason Comments Established Patient Follow up Tremors an d falls Specialty Diagnoses / Procedures Referred By Contac t Referred To Contact MR IMAGING Diagnoses Transient cerebral ischemia, unspecified type Procedures MRI BRAIN WO IVCON MRI BRAIN BRAIN STEM W/O CONTRAST MATERIAL Halima Harvey, FIRE LIEUTENANT.FRONT DESK ADMIN [address] [place] [address] Mr Imaging Referral ID Status Reason Start Date Expiration Date V isits Requested Visits Authorized [id number] Closed Auto-Generate d Referral 02/04/2022 03/06/2023 1 [...] HIGH MDM 60-74 MINUTES George Vaughan MD [address] [place] [address] Referral ID Status Reason Start Date Expiration Date V isits Requested Visits Authorized [id number] Closed PCP Requested Referral 11/03/2022 11/03/2023 1 1 Reason Comments Follow Up Falls and Tremor Reason Comments Forms Medical clearance fo -[facility] Reason Comments Dental office question Reason Comments Received Outside Medical Records [facility]-spine records Dr. Maldonado Reason Onset Date Comments Refill Request 02/21/2023 Reason Comments UTI Possible uti, freque ncy, burning x 2 days Reason Comments Med Change Request Reason Comments Foot Trauma LEFT foot/little toe x 4 days Reason Onset Date Comments Refill Request 08/15/2023 Reason Comments Appointment Reason Comments Established Patient Fracture Specialty Diagnoses / Procedures Referred By Pablo davis Referred To Contact Podiatry Diagnoses Closed nondisplaced fracture of fifth metatarsal bone of left foot, initial encounter Procedures CONSULT TO PODIATRY OFFICE/OUTPATIENT NEW HIGH MDM 60 MINUTES Zander Chavez, VIDA.FRONT DESK ADMIN [address] [place] [address] Referral ID Status Reason Start Date Expiration Date V isits Requested Visits Authorized [id number] Closed PCP Requested Referral 08/11/2023 08/10/2024 1 1 Reason Onset Date Comments Refill Request 08/30/2023 Reason Comments Orders Received fax from [facility], [facility] for request to hold clopidogrel for procedure [...] Refill Request 09/18/2024 Reason Comments Abdominal Mass [facility] ED f/u - umbilic al [...] Comments Patient Update Notes to Dr Arguello Reason Onset Date Comments 6 Month Exam Immunizations 02/04/2025 Flu vaccination Care Teams (unrecognized sec tion and content) [...] S tart: July 28, 2024 Dr. Nini Brwon MD Admit Provider Active St art: July [...] art: July 29, 2024 Dr. Nawaf Leblanc , Other Provider Active Star t: July 29, 2024 Dr. Cuong Andrews MD Attending Provider Activ e Start: July 29, 2024 Candy Spreader Helper Relationship Specialty Start Date End Date George Vaughan MD [address] [facility] [place] [address] PCP - General Family Practice 11/04/15 Flip Kramer [address] [facility] [address] [place] [address] Cardiology 04/29/21 Jalen Ibarra [address] [facility] [address] [place] [address] Urology 04/29/21 Jose G Nichole [address] [place] [address] Pain Management 04/29/21 Jaguar Osman [address] [facility] 2 [place] [phone] Orthopedics 04/29/21 Erik Guajardo [address] [facility] [place] [address] Pulmonary Disease 04/29/21 Candy Spreader Helper Relationship Specialty Start Date End Date George Vaughan MD [address] [facility] [place] [address] PCP - General Family Practice 11/04/15 Flip Kramer [address] [facility] [address] [place] [address] Cardiology 04/29/21 Jalen Ibarra [address] [address] [place] [address] Urology 04/29/21 DionisioJose G zhong [address] [place] [address] Pain Management 04/29/21 Jaguar Osman [address] [place] [address] [place] [address] [phone] Orthopedics 04/29/[address]ardo [address] [place] [address] Pulmonary Disease 04/29/21 Candy Spreader Helper Relationship Specialty Start Date End Date George Vaughan MD [address] [facility] [place] [address] PCP - General Family Practice 11/04/15 Flip Kramer [address] [place] [address] [place] [address] Cardiology 04/29/21 Jalen Ibarra [address] [address] [place] [address] Urology 04/29/21 Jose G Nichole [address] [place] [address] Pain Management 04/29/21 Jaguar Osman [address] [place] [address] [place] [address] Orthopedics 04/29/[address]ardo [address] [place] [address] Pulmonary Disease 04/29/21 Candy Spreader Helper Relationship Specialty Start Date End Date George Vaughan MD [address] [facility] [place] [address] PCP - General Family Practice 11/04/15 Flip Kramer [address] [place] [address] [place] [address] Cardiology 04/29/21 Jalen Ibarra [address] [place] [address] Urology 04/29/21 Dionisio, Kavyaar [address] [place] [address] Pain Management 04/29/21 Jaguar Osman [address] [facility] [address] [place] [phone] Orthopedics 04/29/21 Erik Guajardo [address] [place] [address] Pulmonary Disease 04/29/21 Candy Spreader Helper Relationship Specialty Start Date End Date George Vaughan MD [address] [facility] [place] [address] PCP - General Family Practice 11/04/15 Flip Kramer [address] [place] [address] [place] [address] Cardiology 04/29/21 Jalen Ibarra [address] [place] [address] Urology 04/29/21 Oma Nicholeumbar [address] [place] [address] Pain Management 04/29/21 Jaguar Osman [address] [place] [address] [place] [phone] Orthopedics 04/29/21 Erik Guajardo [address] [place] [address] Pulmonary Disease 04/29/21 Candy Spreader Helper Relationship Specialty Start Date End Date George Vaughan MD [address] [facility] [place] [address] PCP - General Family Practice 11/04/[address] [place] [address] [place] [address] Cardiology 04/29/21 Jalen Ibarra [address] [place] [address] [address] [place] [address] Urology 04/29/21 Jose G Nichole [address] [place] [address] Pain Management 04/29/21 Jaguar Osman [address] [place] [address] [place] [address] Orthopedics 04/29/[address]ardo [address] [place] [address] Pulmonary Disease 04/29/21 Candy Spreader Helper Relationship Specialty Start Date End Date George Vaughan MD [address] [facility] [place] [address] PCP - General Family Practice 11/04/[address] [place] [address] [place] [address] Cardiology 04/29/21 StaceyJalen sanford [address] [address] [place] [address] Urology 04/29/21 Jose G Nichole [address] [place] [address] Pain Management 04/29/21 Jaguar Osman[address] [place] [address] [place] [address] Orthopedics 04/29/[address]ardo [address] [place] [address] Pulmonary Disease 04/29/21 Candy Spreader Helper Relationship Specialty Start Date End Date George Vaughan MD [address] [facility] [place] [address] PCP - General Family Practice 11/04/15 Flip Kramer [address] [place] [address] [place] [address] Cardiology 04/29/21 Jalen Ibarra [address] [address] [place] [address] Urology 04/29/21 Jose G Nichole [address] [place] [facility] [place] [address] Pain Management 04/29/21 Jaguar Osman [address] [place] [address] [place] [address] Orthopedics 04/29/[address] Erik Guajardo [address] [place] [address] Pulmonary Disease 04/29/21 Candy Spreader Helper Relationship Specialty Start Date End Date George Vaughan MD [address] [facility] [place] [address] PCP - General Family Practice 11/04/15 Flip Kramer [address] [place] [address] [place] [address] Cardiology 04/29/21 Jalen Ibarra [address] [place] [address] Urology 04/29/21 Jose G Nichole [address] [place] [address] Pain Management 04/29/21 Jaguar Osman [address] [facility] [address] [place] [address] Orthopedics 04/29/21 Erik Guajardo [address] [place] [address] Pulmonary Disease 04/29/21 Candy Spreader Helper Relationship Specialty Start Date End Date George Vaughan MD [address] [facility] [place] [address] PCP - General Family Practice 11/04/15 Flip Kramer [address] [place] [address] [place] [address] Cardiology 04/29/21 Jalen Ibarra Miguel [address] [place] [address] Urology 04/29/21 Kavya Nicholear [address] [place] [address] Pain Management 04/29/21 Jaguar Osman [address] [place] [address] [place] [address] Orthopedics 04/29/21 Erik Guajardo [address] [place] [address] Pulmonary Disease 04/29/21 Candy Spreader Helper Relationship Specialty Start Date End Date George Vaughan MD [address] [facility] [place] [address] PCP - General Family Practice 11/04/15 Flip Kramer [address] [facility] [address] [place] [address] Cardiology 04/29/21 Jalen Ibarra [address] [place] [address] 210 [place] [address] Urology 04/29/21 Jose G Nichole [address] [place] [address] Pain Management 04/29/21 OsmanJaguar mosley [address] [place] [address] [place] [address] Orthopedics 04/29/21 Erik Guajardo [address] [place] [address] Pulmonary Disease 04/29/21 Candy Spreader Helper Relationship Specialty Start Date End Date George Vaughan MD [address] [facility] [place] [address] PCP - General Family Practice 11/04/15 Flip Kramer [address] [facility] [address] [place] [address] Cardiology 04/29/21 Jalen Ibarra [address] [place] [address] Urology 04/29/21 DionisioJose G zhong [address] [place] [address] Pain Management 04/29/21 Jaguar Osman[address] [facility] 2 [place] [address] Orthopedics 04/29/21 Erik Guajardo [address] [place] [address] Pulmonary Disease 04/29/21 Candy Spreader Helper Relationship Specialty Start Date End Date George Vaughan MD [address] [facility] [place] [address] PCP - General Family Medicine 11/04/15 Flip Kramer [address] [facility] [address] [facility] [address] [place] [address] Cardiology 04/29/21 Jalen Ibarra [address] [place] [address] Urology 04/29/21 DionisioJose G zhong [address] [place] [address] Pain Management 04/29/21 Jaguar Osman [address] [place] [address] [place] [address] [phone] Orthopedics 04/29/[address] Erik [address]ajardo [address] [place] [address] Pulmonary Disease 04/29/21 Candy Spreader Helper Relationship Specialty Start Date End Date George Vaughan MD [address] [facility] [place] [address] PCP - General Family Medicine 11/04/15 Flip Kramer [address] [place] [address] [place] [address] Cardiology 04/29/21 Stacey Forrest [address] [place] [address] Urology 04/29/21 Jose G Nichole [address] [place] [address] Pain Management 04/29/21 Jaguar Osman [address] [facility] [address] [place] [address] Orthopedics 04/29/21 Erik Guajardo [address] [facility] [address] [facility] [place] [address] Pulmonary Disease 04/29/21 Candy Spreader Helper Relationship Specialty Start Date End Date George Vaughan MD [address] [facility] [place] [address] PCP - General Family Medicine 11/04/15 Flip Kramer [address] [place] [address] [place] [address] Cardiology 04/29/21 Stacey Forrest [address] [place] [address] Urology 04/29/21 Jose G Nichole [address] [place] [address] Pain Management 04/29/21 OsmanJaguar mosley L [address] [place] [address] [place] [address] Orthopedics 04/29/21 Erik Guajardo [address] [facility] [place] [address] Pulmonary Disease 04/29/21 Candy Spreader Helper Relationship Specialty Start Date End Date George Vaughan MD [address] [facility] [place] [address] PCP - General Family Medicine 11/04/15 Flip Kramer 176 [facility] [address] [place] [address] Cardiology 04/29/21 Jalen Ibarra [address] [place] [address] [address] [place] [address] Urology 04/29/21 Jose G Nichole [address] [place] [address] Pain Management 04/29/21 OsmanJaguar mosley L [address] [facility] [place] [address] [place] [address] Orthopedics 04/29/21 Erik Guajardo [address] [place] [address] Pulmonary Disease 04/29/21 Candy Spreader Helper Relationship Specialty Start Date End Date George Vaughan MD [address] [facility] [place] [address] PCP - General Family Medicine 11/04/15 Flip Kramer [address] [facility] [place] [address] Cardiology 04/29/21 Jalen Ibarra [address] [address] [place] [address] Urology 04/29/21 DionisioJose G zhong [address] [place] [address] Pain Management 04/29/21 Jaguar Osman [address] [place] [address] [place] [address] Orthopedics 04/29/[address]ardo [address] [place] [address] Pulmonary Disease 04/29/21 Candy Spreader Helper Relationship Specialty Start Date End Date George Vaughan MD [address] [facility] [place] [address] PCP - General Family Medicine 11/04/15 Flip Kramer [address] [place] [address] [place] [address] Cardiology 04/29/21 Jalen Ibarra MD [address] [place] [address] Urology 04/29/21 Jose G Nichole [address] [place] [address] Pain Management 04/29/21 OsmanJaguar mosley [address] [place] [address] [place] [address] Orthopedics 04/29/[address]ajardo [address] [place] [address] Pulmonary Disease 04/29/21 Candy Spreader Helper Relationship Specialty Start Date End Date George Vaughan MD [address] [facility] [place] [address] PCP - General Family Medicine 11/04/15 Flip Kramer [address] [place] [address] [place] [address] Cardiology 04/29/21 Jalen Ibarra MD [address] [address] [place] [address] Urology 04/29/21 Jose G Nichole [address] [place] [address] Pain Management 04/29/21 Jaguar Osman [address] [facility] [address] [place] [address] Orthopedics 04/29/21 Erik Guajardo [address] [place] [address] Pulmonary Disease 04/29/21 Candy Spreader Helper Relationship Specialty Start Date End Date George Vaughan MD [address] [facility] [place] [address] PCP - General Family Medicine 11/04/15 Flip Kramer [address] [place] [address] [place] [address] Cardiology 04/29/21 Jalen Ibarra MD [address] [address] [place] [address] Urology 04/29/21 Jose G Nichole [address] [place] [address] Pain Management 04/29/21 Osman Jaguar Rubina [address] [place] [address] [place] [address] Orthopedics 04/29/21 Erik Guajardo [address] [facility] [place], [place] [address] Pulmonary Disease 04/29/21 Team Status: Active Member [...] Vaughan MD Primary Care Provider Active Mallorie BAIRD, PA Other Provider Active Dr. Flip Kramer [...] Mallorie Santos PA, PA Attending Provider Active Candy Spreader Helper Relationship Specialty Start Date End Date George Vaughan MD [address] [place], [place] [address] PCP - General Family Medicine 11/04/15 Flip Kramer [address] [facility] [address] [place] [address] Cardiology 04/29/21 Jalen Ibarra MD 546 [facility] [address] [place], [place] [address] Urology 04/29/21 Jose G Nichole [address] [place] [address] Pain Management 04/29/21 Jaguar Osman [address] [facility] 2 [place] [phone] Orthopedics 04/29/21 Erik Guajardo [address] [facility] [place] [address] Pulmonary Disease 04/29/21 Team Status: Active Member Role Status Dates Dr. George Vaughan MD Primary Care Provider Active Mallorie Santos PA, PA Attending Provider, Referr ing Provider Active Team Status: Inactive Member Role Status Dates Dr. George Vaughan MD Primary Care Provider Active Haydee Lima , BEAD WRAPPER-C Attending Provider, Referring Pro vider Active Candy Spreader Helper Relationship Specialty Start Date End Date George Vaughan MD [address] [place], [place] [address] PCP - General Family Medicine 11/04/15 Flip Kramer [address] [facility] [address] [place] [address] Cardiology 04/29/21 Jalen Ibarra MD 546 [facility] [address] [place], [place] [address] Urology 04/29/21 Dionisio Araiza [address] [place] [address] Pain Management 04/29/21 Jaguar Osman [address] [facility] [address] [place] [address] Orthopedics 04/29/21 Erik Guajardo [address] [facility] [place] [address] [place], [place] [address] Pulmonary Disease 04/29/21 Candy Spreader Helper Relationship Specialty Start Date End Date George Vaughan MD [address] [facility] [place] [address] PCP - General Family Medicine 11/04/15 Flip Kramer [address] [facility] [address] [place] [address] Cardiology 04/29/21 Jalen Ibarra MD [address] [place] [address] 210 [place], [place] [address] Urology 04/29/21 Dionisio Araiza [address] [place] [address] Pain Management 04/29/21 Jaguar Osman [address] [facility] 2 [place] [address] Orthopedics 04/29/21 Erik Guajardo 176 [facility] [place] [address] Pulmonary Disease 04/29/21 Candy Spreader Helper Relationship Specialty Start Date End Date George Vaughan MD [address] [facility] [place] [address] PCP - General Family Medicine 11/04/15 Flip Kramer [address] [place] [address] [place] [address] Cardiology 04/29/21 Jalen Ibarra MD 546 [facility] [address] [place] [address] Urology 04/29/21 Dionisio Araiza [address] [place] [address] Pain Management 04/29/21 Jaguar Osman [address] [facility] 2 [place] [address] Orthopedics 04/29/21 Erik Guajardo MD [address] [place] [address] Pulmonary Disease 04/29/21 Candy Spreader Helper Relationship Specialty Start Date End Date George Vaughan MD [address] [facility] [place] [address] PCP - General Family Medicine 11/04/15 Flip Kramer [address] [place] [address] [place] [address] Cardiology 04/29/21 Jalen Ibarra MD [address] [facility] [address] [place] [address] Urology 04/29/21 Dionisio Araiza [address] [place] [address] Pain Management 04/29/21 Jaguar Osman [address] [facility] 2 [place] [phone] Orthopedics 04/29/21 Erik Guajardo MD 176 [facility] [place] [address] Pulmonary Disease 04/29/21 Candy Spreader Helper Relationship Specialty Start Date End Date George Vaughan MD [address] [place], [place] [address] PCP - General Family Medicine 11/04/15 Flip Kramer [address] [facility] [address] [place] [address] Cardiology 04/29/21 Jalen Ibarra MD [address] [place] [address] 210 [place], [place] [phone] Urology 04/29/21 Dionisio Ara[address] [place] [address] Pain Management 04/29/21 Jaguar Osman [address] [facility] 2 [place] [phone] Orthopedics 04/29/21 Erik Guajardo MD [address] [facility] [place] [address] Pulmonary Disease 04/29/21 Candy Spreader Helper Relationship Specialty Start Date End Date George Vaughan MD [address] [place] [address] PCP - General Family Medicine 11/04/15 Flip Kramer 176 [facility] 3A [place] [phone] Cardiology 04/29/21 Jalen Ibarra MD [address] [address] [place] [address] Urology 04/29/21 [place] [address] Pain Management 04/29/21 Jaguar Osman [address] [facility] 2 [place] [phone] Orthopedics 04/29/21 Erik Guajardo MD 176 [facility] [place] [address] Pulmonary Disease 04/29/21 Candy Spreader Helper Relationship Specialty Start Date End Date George Vaughan MD 174 [facility] [place] [address] PCP - General Family Medicine 11/04/15 Flip Kramer 176 [facility] 3A [place] [address] Cardiology 04/29/21 Jalen Ibarra MD 546 [facility] 210 [place], [place] [address]0421 Urology 04/29/21 Dionisio Araiza [address] [place] [address] Pain Management 04/29/21 Jaguar Osman [address] [facility] 2 [place] [phone] Orthopedics 04/29/21 Erik Guajardo MD 176 [facility] [place] [address] Pulmonary Disease 04/29/21 Candy Spreader Helper Relationship Specialty Start Date End Date George Vaughan MD 1740 [facility], [place] [address]691 PCP - General Family Medicine 11/04/15 Flip Kramer [address] [place] [address] [place] [phone] Cardiology 04/29/21 Jalen Ibarra MD [address] [place] [address] 210 [place] [address] Urology 04/29/21 Dionisio Araiza [address] [place] [address] Pain Management 04/29/21 Jaguar Osman [facility] [address] [place] [phone] Orthopedics 04/29/21 Erik Guajardo MD [address] [place] [address] Pulmonary Disease 04/29/21 Team Status: Inactive Member [...] Claire Hines DO Attending Provider, Emergency P [facility] Active Team Status: Active Member Role Status [...] Dr. Nini Brown MD Attending Provider Active Candy Spreader Helper Relationship Specialty Start Date End Date George Vaughan MD 1740 [place] [address] PCP - General Family Medicine 11/04/15 Flip Kramer MD [address] 584351 Cardiology 04/29/21 Jalen Ibarra MD 546 [facility] 210 [place], [place] [address]15611 Urology 04/29/21 Jose G Dionisio [address] [place] [address] Pain Management 04/29/21 Jaguar Osman [address] [place] [address] [place] [phone] Orthopedics 04/29/21 Erik Guajardo MD 1761 [facility] [place] [address] Pulmonary Disease 04/29/21 Candy Spreader Helper Relationship Specialty Start Date End Date George Vaughan MD 1740 [place], [place] 973421 PCP - General Family Medicine 11/04/15 Flip Kramer MD 1761 [facility] 3[address] [place] [address] Cardiology 04/29/21 Jalen Ibarra MD [address] [address] Urology 04/29/21 Jose G Dionisio [address] [place] [address] Pain Management 04/29/21 Jaguar Osman [address] [place] [address] [place] [phone] Orthopedics 04/29/21 Erik Guajardo MD [address] [place], [place] 872231 Pulmonary Disease 04/29/21 Candy Spreader Helper Relationship Specialty Start Date End Date George Vaughan MD [address]40 [facility], [place] 45[address]71 PCP - General Family Medicine 11/04/15 Flip Kramer MD [address] [place] [address] [place], [place] [address]141 Cardiology 04/29/21 Jalen Ibarra MD 546 [facility] 210 [place], [place] 459271 Urology 04/29/21 Dionisio Araiza [address] [place] [address] Pain Management 04/29/21 Jaguar Osman [address] [place] [address] [place] [phone] Orthopedics 04/29/21 Erik Guajardo MD [address] [place] [address] Pulmonary Disease 04/29/21 Team Status: Active Member Role Status Dates Dr. George Vaughan MD Primary Care Provider Active Cale Keys BEAD WRAPPER, BEAD WRAPPER-C Attending Provider Active Team Status: Inactive Member Role Status Dates Dr. George Vaughan MD Primary Care Provider Active BEAD WRAPPER. Kayleigh Riddle Attending Provider, Referring Provid er Active Team Status: Inactive Member Role Status Dates Dr. George Vaughan MD Primary Care Provider Active Dr. Jaguar Tristan MD Attending Provider, Referring Provider Active Candy Spreader Helper Relationship Specialty Start Date End Date eGorge Vaughan MD [address] [facility] [place] [address] PCP - General Family Medicine 11/04/15 Flip Kramer MD [address] [place] [address] [place] [address] Cardiology 04/29/21 Jalen Ibarra MD [address] [place] [address] 210 [place] [address] Urology 04/29/21 [place] [address] Pain Management 04/29/21 Jaguar Osman [address] [place] [address] [place] [phone] Orthopedics 04/29/21 Erik Guajardo MD [address] [place] [address] Pulmonary Disease 04/29/21 Candy Spreader Helper Relationship Specialty Start Date End Date George Vaughan MD [address] [facility] [place] [address] PCP - General Family Medicine 11/04/15 Flip Kramer MD [address] [place] [address] [place] [address] Cardiology 04/29/21 Jalen Ibarra MD 546 [facility] 210 [place] [address] Urology 04/29/21 Dionisio Araiza [address] [place] [address] Pain Management 04/29/21 Jaguar Osman [address] [facility] 2 [place] [phone] Orthopedics 04/29/21 Erik Guajardo MD 176 [facility] [place] [place] [address] Pulmonary Disease 04/29/21 Candy Spreader Helper Relationship Specialty Start Date End Date George Vaughan MD 174 [place] [address] PCP - General Family Medicine 11/04/15 Flip Kramer MD 176 [facility] 3[address] [place] [address] Cardiology 04/29/21 Jalen Ibarra MD [address] [address] Urology 04/29/21 Dionisio Araiza [address] [place] [address] Pain Management 04/29/21 Jaguar Osman [facility] [facility] 2 [place] [phone] Orthopedics 04/29/21 Erik Guajardo MD 176 [facility] [place] [address] Pulmonary Disease 04/29/21 Candy Spreader Helper Relationship Specialty Start Date End Date George Vaughan MD [address] [facility] [place] [address] PCP - General Family Medicine 11/04/15 Flip Kramer MD 176 [facility] 3[address] [place] [address] Cardiology 04/29/21 Jalen Ibarra MD [address] [place] [address] 210 [place] [address] Urology 04/29/21 Dionisio Araiza [address] [place] [address] Pain Management 04/29/21 Jaguar Osman [address] [facility] 2 [place] [phone] Orthopedics 04/29/21 Erik Guajardo MD 176 [facility] [place] [address] Pulmonary Disease 04/29/21 Candy Spreader Helper Relationship Specialty Start Date End Date George Vaughan MD [address] [facility] [place] [address] PCP - General Family Medicine 11/04/15 Flip Kramer MD 176 [facility] 3[address] [place] [address] Cardiology 04/29/21 Jalen Ibarra MD 546 [facility] 210 [place] [address] Urology 04/29/21 OmaemperatrizLove wilsonDionisio [address] [place] [address] Pain Management 04/29/21 Jaguar Osman [address] [place] [address] [place] [phone] Orthopedics 04/29/21 Erik Guajardo MD 1761 [facility] [place] [address] Pulmonary Disease 04/29/21 Candy Spreader Helper Relationship Specialty Start Date End Date George Vaughan MD [address] [facility] [place] [address] PCP - General Family Medicine 11/04/15 Flip Kramer MD 1761 [facility] 3[address] [place] [address] Cardiology 04/29/21 Jalen Ibarra MD 546 [facility] 210 [place] [address] Urology 04/29/21 OmanoheliaLoveDionisio [address] [place] [address] Pain Management 04/29/21 Jaguar Osman [address] [place] [address] [place] [phone] Orthopedics 04/29/21 Erik Guajardo MD [address] [facility] [place] [address] Pulmonary Disease 04/29/21 Candy Spreader Helper Relationship Specialty Start Date End Date George Vaughan MD 1740 [facility] [place] [address] PCP - General Family Medicine 11/04/15 Flip Kramer MD 176 [facility] 3A [place] [address] Cardiology 04/29/21 Jalen Ibarra MD [address] [place] [address] 210 [place] [address] Urology 04/29/[address] [place], [place] [id number] Pain Management 04/29/21 Jaguar Osman [address] [facility] 2 [place] [phone] Orthopedics 04/29/21 Erik Guajardo MD 176 [facility] [place] [address] Pulmonary Disease 04/29/21 Candy Spreader Helper Relationship Specialty Start Date End Date George Vaughan MD [address] [facility] [place] [address] PCP - General Family Medicine 11/04/15 Flip Kramer MD 176 [facility] [address] [place] [address] Cardiology 04/29/21 Jalen Ibarra MD [address] [place] [address] Urology 04/29/21 [facility] [address] [place] [address] Pain Management 04/29/21 Jaguar Osman [address] [place] [address] [place] [phone] Orthopedics 04/29/21 Erik Guajardo MD [facility] [facility] [place] [address] Pulmonary Disease 04/29/21 Candy Spreader Helper Relationship Specialty Start Date End Date George Vaughan MD 1740 [place] [address] PCP - General Family Medicine 11/04/15 Flip Kramer MD [address] [facility] [address] [facility] 3A [place] [address] Cardiology 04/29/21 Jalen Ibarra MD [address] [address] Urology 04/29/21 Dionisio Araiza [address] [place] [address] Pain Management 04/29/21 Jaguar Osman [address] [place] [address] [place] [phone] Orthopedics 04/29/21 Erik Guajardo MD 176 [facility] [place] [address] Pulmonary Disease 04/29/21 Candy Spreader Helper Relationship Specialty Start Date End Date George Vaughan MD 174 [place] [address] PCP - General Family Medicine 11/04/15 Candy Spreader Helper Relationship Specialty Start Date End Date George Vaughan MD 174 [place] [address] PCP - General Family Medicine 11/04/15 Flip Kramer MD 176 [facility] 3A [place] [address] Cardiology 04/29/21 Jalen Ibarra MD [address] [place] [address] 210 [place] [address] Urology 04/29/21 [place] [address] Pain Management 04/29/21 Jaguar Osman 3[address] [facility] [place] [address] [place] [phone] Orthopedics 04/29/21 Erik Guajardo MD [address] [facility] [place] [address] Pulmonary Disease 04/29/21 Candy Spreader Helper Relationship Specialty Start Date End Date George Vaughan MD [address] [place] [address] PCP - General Family Medicine 11/04/15 Flip Kramer MD [address] [facility] 3[address] [place] [address] Cardiology 04/29/21 Jalen Ibarra MD 546 [facility] 210 [place] [address] Urology 04/29/21 Dionisio Araiza [address] [place] [address] Pain Management 04/29/21 Jaguar Osman [address] [facility] [place] [address] [place] [phone] Orthopedics 04/29/21 Erik Guajardo MD 176 [facility] [place] [address] Pulmonary Disease 04/29/21 Candy Spreader Helper Relationship Specialty Start Date End Date George Vaughan MD [address] [facility] [place] [address] PCP - General Family Medicine 11/04/15 Flip Kramer MD 176 [facility] 3A [place] [address] Cardiology 04/29/21 Jalen Ibarra MD 546 [facility] 210 [place] [address] Urology 04/29/21 Dionisio Araiza [address] [place] [address] Pain Management 04/29/21 aJguar Osman [address] [facility] 2 [place] [phone] Orthopedics 04/29/21 Erik Guajardo MD 176 [facility] [place], [place] [address] Pulmonary Disease 04/29/21 Candy Spreader Helper Relationship Specialty Start Date End Date George Vaughan MD [address] [facility], [place] [id number] PCP - General Family Medicine 11/04/15 Flip Kramer MD 176 [facility] 3A [place] [address] Cardiology 04/29/21 Jalen Ibarra MD [address] [place] [address] 210 [place] [address] Urology 04/29/21 Dionisio Araiza [address] [place] [address] Pain Management 04/29/21 Jaguar Osman [address] [facility] 2 [place] [phone] Orthopedics 04/29/21 Erik Guajardo MD 176 [facility] [place] [address] Pulmonary Disease 04/29/21 Delia Waterman APRN.FRONT DESK ADMIN 1740 [place] [address] Steam Conditioning Operator Family Medicine 04/28/24 Candy Spreader Helper Relationship Specialty Start Date End Date George Vaughan MD 174 [place] [address] PCP - General Family Medicine 11/04/15 Flip Kramer MD 176 [facility] 3A [place], [place] [id number] Cardiology 04/29/21 Jalen Ibarra MD [address] [place] [address] 210 [place] [address] Urology 04/29/21 Dionisio Araiza [address] [place] [address] Pain Management 04/29/21 Jaguar Osman [address] [facility] 2 [place] [phone] Orthopedics 04/29/21 Erik Guajardo MD 176 [facility] [place] [address] Pulmonary Disease 04/29/21 Delia Waterman APRN.FRONT DESK ADMIN 1740 [place] [address] Steam Conditioning Operator Family [facility] 04/28/24 Candy Spreader Helper Relationship Specialty Start Date End Date George Vaughan MD [address]40 [facility] [place] [address] PCP - General Family Medicine 11/04/15 Flip Kramer MD 176 [facility] 3[address] [place] [address] Cardiology 04/29/21 Jalen Ibarra MD [address] [place] [address] 210 [place] [address] Urology 04/29/21 Dionisio Araiza [facility] [address] [place], [place] 0317557 Pain Management 04/29/21 Jaguar Osman [address] [facility] 2 [place] [phone] Orthopedics 04/29/21 Erik Guajardo MD 176 [facility] [place] [address] Pulmonary Disease 04/29/21 Delia Waterman APRN.FRONT DESK ADMIN [address]40 [place] [address] Steam Conditioning Operator Family Medicine 04/28/24 Candy Spreader Helper Relationship Specialty Start Date End Date George Vaughan MD 1740 [place] [address] PCP - General Family Medicine 11/04/15 Flip Kramer MD 176 [facility] 3[address] [place] [address] Cardiology 04/29/21 Jalen Ibarra MD 546 [facility] 210 [place], [place] [address]99331 Urology 04/29/21 OmaemperatrizDionis[place] [address] Pain Management 04/29/21 Jaguar Osman [address] [facility] 2 [place] [phone] Orthopedics 04/29/21 Erik Guajardo MD 176 [facility] [place] [address] Pulmonary Disease 04/29/21 Delia Waterman APRN.FRONT DESK ADMIN [address] [place] [address] Steam Conditioning Operator Family Medicine 04/28/24 Zander Chavez APRN.FRONT DESK ADMIN [address] [place] [address] Steam Conditioning Operator Family Medicine 05/07/24 Candy Spreader Helper Relationship Specialty Start Date End Date George Vaughan MD 1740 [place] [address] PCP - General Family Medicine 11/04/15 Flip Kramer MD 1761 [facility] 3[address] [place] [address] Cardiology 04/29/21 Jalen Ibarra MD 546 [facility] 210 [place], [place] [address] Urology 04/29/21 OmaemperatrizDionisio wilson [address] [place] [address] Pain Management 04/29/21 Dawson Jaguar Rubina [address] [facility] 2 [place] [phone] Orthopedics 04/29/21 Erik Guajardo MD 1761 [facility] [place] [address] Pulmonary Disease 04/29/21 Delia Waterman APRN.FRONT DESK ADMIN [address] [place] [address] Steam Conditioning Operator Family Medicine 04/28/24 Zander Chavez APRN.FRONT DESK ADMIN [address] [place] [address] Steam Conditioning Operator Family Medicine 05/07/24 Candy Spreader Helper Relationship Specialty Start Date End Date George Vaughan MD 1740 [place] [address] PCP - General Family Medicine 11/04/15 Flip Kramer MD 1761 [facility] 3[address] [place] [address] Cardiology 04/29/21 Jalen Ibarra MD [address] [place] [address] 210 [place] [address] Urology 04/29/21 OmanoheliaLoveDionisio [address] [place], [place] [address] Pain Management 04/29/21 Jaguar Osman DO [address] [facility] 2 [place] [address] Orthopedics 04/29/21 Erik Guajardo MD 176 [facility] [place], [place] 9[address]21 Pulmonary Disease 04/29/21 Delia Waterman APRN.FRONT DESK ADMIN [address] [place] [address] [facility] 04/28/24 Zander Chavez APRN.FRONT DESK ADMIN [address] [place] [address] [facility] 05/07/24 Team Status: Active Member Role Status Dates Dr. George Vaughan MD Primary Care Provider Active Start: July 28, 2024 Dr. David Doll MD Emergency Provider Active S tart: July 28, 2024 Dr. Nini Brown MD Admit Provider Active St art: July 28, 2024 Dr. Nini Brown MD Attending Provider Active Start: July 28, 2024 Candy Spreader Helper Relationship Specialty Start Date End Date George Vaughan MD 1740 [place] [address] PCP - General Family Medicine 11/04/15 Flip Kramer MD 176 [facility] 3A [place] [address] Cardiology 04/29/21 Jalen Ibarra MD [address] [place] [address] 210 [place], [place] 30[address]31 Urology 04/29/21 Dionisio Araiza [address] [place] [address] Pain Management 04/29/21 Jaguar Osman DO [address] [facility] [place] [address] [place] [phone] Orthopedics 04/29/21 Erik Guajardo MD [address] [facility] [place] [address] Pulmonary Disease 04/29/21 Delia Waterman APRN.FRONT DESK ADMIN [address]40 [place] [address] Steam Conditioning Operator Family Medicine 04/28/24 Zander Chavez APRN.FRONT DESK ADMIN [address] [place] [address] Steam Conditioning Operator [facility] 05/07/24 Candy Spreader Helper Relationship Specialty Start Date End Date George Vaughan MD 1740 [place] [address] PCP - General Family Medicine 11/04/15 Flip Kramer MD 1761 [facility] 3[address] [place] [address] Cardiology 04/29/21 Jalen Ibarra MD [address] [place] [address] 210 [place] [address] Urology 04/29/21 Dionisio Araiza [address] [place] [address] Pain Management 04/29/21 Jaguar Osman DO 3373 [facility] 2 [place] [phone] Orthopedics 04/29/21 Erik Guajardo MD 1761 [place] [address] Pulmonary Disease 04/29/21 Delia Waterman APRN.FRONT DESK ADMIN [address] [place] [address] Steam Conditioning Operator Family Medicine 04/28/24 Zander Chavez APRN.FRONT DESK ADMIN [address] [place] [address] Steam Conditioning Operator Family [facility] 05/07/24 Candy Spreader Helper Relationship Specialty Start Date End Date George Vaughan MD 1740 [place] [address] PCP - General Family Medicine 11/04/15 Flip Kramer MD 176 [facility] 3[address] [place] [address] Cardiology 04/29/21 Jalen Ibarra MD [address] [place] [address] 210 [place] [address] Urology 04/29/21 [place] [address] Pain Management 04/29/21 Jaguar Osman DO [address] [facility] 2 [place] [phone] Orthopedics 04/29/21 Erik Guajardo MD 1761 [facility] [place] [address] Pulmonary Disease 04/29/21 Delia Waterman APRN.FRONT DESK ADMIN [address] [place] [address] Steam Conditioning Operator Family Medicine 04/28/24 Zander Chavez APRN.FRONT DESK ADMIN [address] [place] [address] Steam Conditioning Operator [facility] 05/07/24 Candy Spreader Helper Relationship Specialty Start Date End Date George Vaughan MD 1740 [place] [address] PCP - General Family Medicine 11/04/15 [place] [address] [place] [address] 3[address] [place] [address] Cardiology 04/29/21 Jalen Ibarra MD [address] [place] [address] 210 [place] [address] Urology 04/29/21 [place] [address] Pain Management 04/29/21 Jaguar Osman DO [address] [facility] 2 [place] [phone] Orthopedics 04/29/21 Erik Guajardo MD 1761 [facility] [place] [address] Pulmonary Disease 04/29/21 Delia Waterman APRN.FRONT DESK ADMIN [address] [place] [address] Steam Conditioning Operator Family [facility] 04/28/24 Zander Chavez APRN.FRONT DESK ADMIN [address] [place] [address] [facility] 05/07/24 Candy Spreader Helper Relationship Specialty Start Date End Date George Vaughan MD [address]40 [place] [address] PCP - General Family Medicine 11/04/15 Flip Kramer MD 176 [facility] [address] [place] [address] Cardiology 04/29/21 Jalen Ibarra MD [address] [place] [address] 210 [place] [address] Urology 04/29/21 Dionisio Araiza [address] [place] [address] Pain Management 04/29/21 Jaguar Osman DO 3373 [facility] 2 [place] [phone] Orthopedics 04/29/21 Erik Guajardo MD 1761 [facility] [place] [address] Pulmonary Disease 04/29/21 Delia Waterman APRN.FRONT DESK ADMIN 176 [facility] [place] [address] Steam Conditioning Operator [facility] 04/28/24 Zander Chavez APRN.FRONT DESK ADMIN [address] [place] [address] Steam Conditioning Operator [facility] 05/07/24 Candy Spreader Helper Relationship Specialty Start Date End Date George Vaughan MD 1740 [place] [address] PCP - General Family Medicine 11/04/15 Flip Kramer MD 176 [facility] [address] [place] [address] Cardiology 04/29/21 Jalen Ibarra MD [address] [place] [address] 210 [place] [address] Urology 04/29/21 Dionisio Araiza [address] [place] [address] Pain Management 04/29/21 Jaguar Osman DO 3373 [facility] 2 [place] [phone] Orthopedics 04/29/21 Erik Guajardo MD 176 [facility] [place] [address] Pulmonary Disease 04/29/21 Delia Waterman APRN.FRONT DESK ADMIN [address] [place] [address] Steam Conditioning Operator Family [facility] 04/28/24 Zander Chavez APRN.FRONT DESK ADMIN 1740 [facility] [place] [address] [facility] 05/07/24 Candy Spreader Helper Relationship Specialty Start Date End Date George Vaughan MD 1740 [facility] [place] [address] PCP - General Family Medicine 11/04/15 Flip Kramer MD [address] [facility] 3[address] [place] [address] Cardiology 04/29/21 Jalen Ibarra MD [address] [place] [address] 210 [place] [address] Urology 04/29/21 Dionisio Araiza [address] [place] [address] Pain Management 04/29/21 Jaguar Osman DO 3373 [facility] 2 [place] [phone] Orthopedics 04/29/21 Erik Guajardo MD 1761 [facility] [place] [address] Pulmonary Disease 04/29/21 Delia Waterman APRN.FRONT DESK ADMIN [address] [facility] [place] [address] Steam Conditioning Operator [facility] 04/28/24 10/02/24 Zander Chavez APRN.FRONT DESK ADMIN [address] [place], [place] 735541 Steam Conditioning Operator Family Medicine 05/07/24 Team Status: Inactive Member Role Status Dates Dr. George Vaughan MD Primary Care Provider Active Start: November 13, 2024 End: November 13, 2024 Dr. Petr Perry DO Emergency Provider Activ e Start: November 13, 2024 End: November 13, 2024 Candy Spreader Helper Relationship Specialty Start Date End Date George Vaughan MD [address]40 [place], [place] [address] PCP - General Family Medicine 11/04/15 Flip Kramer MD [address] [facility] [address] [place] [address] Cardiology 04/29/21 Jalen Ibarra MD [address] [facility] 210 [place], [place] [id number] Urology 04/29/21 Dionisio Araiza [address] [place] [address] Pain Management 04/29/21 Jaguar Osman DO [address] [facility] 2 [place] [phone] Orthopedics 04/29/21 Erik Guajardo MD [address] [facility] [place] [address] Pulmonary Disease 04/29/21 Zander Chavez APRN.FRONT DESK ADMIN [address] [place], [place] [address] Steam Conditioning Operator Family Medicine 05/07/24 Candy Spreader Helper Relationship Specialty Start Date End Date George Vaughan MD [address] [facility] [place] [address] PCP - General Family Medicine 11/04/15 Flip Kramer MD [address] [facility] [address] [place] [address] Cardiology 04/29/21 Jalen Ibarra MD [address] [place] [address] 210 [place] [address] Urology 04/29/21 Dionisio Araiza [facility] [address] [place], [place] [id number] Pain Management 04/29/21 Jaguar Osman DO [address] [facility] 2 [place] [phone] Orthopedics 04/29/21 Erik Guajardo MD [address] [facility] [place] [address] Pulmonary Disease 04/29/21 Zander Chavez, VIDA.FRONT DESK ADMIN [address] [facility] [place] [address] Steam Conditioning Operator Family Medicine 05/07/24 Candy Spreader Helper Relationship Specialty Start Date End Date George Vaughan MD [address] [facility] [place] [address] PCP - General Family Medicine 11/04/15 Flip Kramer MD [address] [facility] [address] [place] [address] Cardiology 04/29/21 Jalen Ibarra MD [address] [facility] [address] [place] [address] Urology 04/29/21 Dionisio Araiza [address] [place] [address] Pain Management 04/29/21 Jaguar Osman DO [address] [facility] 2 [place] [phone] Orthopedics 04/29/21 Erik Guajardo MD [address] [facility] [place] [address] Pulmonary Disease 04/29/21 Zander Chavez APRN.FRONT DESK ADMIN [address] [place], [place] 87[address]01 Steam Conditioning Operator Family Medicine 05/07/24 Team Status: Active Member Role/Relationship Status Dates Dr. George Vaughan MD Primary Care Provider Active Team Status: Inactive Member Role/Relationship Status Dates Dr. George Vaughan MD Primary Care Provider Active Start: November 13, 2024 End: November 13, 2024 Dr. Petr Perry DO Attending Provider Activ e Start: November [...] 2024 End: November 29, 2024 Harika Church BEAD WRAPPER, BEAD WRAPPER-C Attending Provider Active Start: November 29, 2024 End: November 29, 2024 Candy Spreader Helper Relationship Specialty Start Date End Date George Vaughan MD [address] [place], [place] [address] PCP - General Family Medicine 11/04/15 Flip Kramer MD [address] [facility] [address] [place] [address] Cardiology 04/29/21 Jalen Ibarra MD [address] [place] [address] 210 [place], [place] [address] Urology 04/29/21 Dionisio Araiza [facility] [address] [place], [place] [id number] Pain Management 04/29/21 Jaguar Osman DO [address] [facility] 2 [place] [phone] Orthopedics 04/29/21 Erik Guajardo MD [address] [facility] [place] [address] Pulmonary Disease 04/29/21 Zander Chavez APRN.FRONT DESK ADMIN [address] [place], [place] [id number] Steam Conditioning Operator Family Medicine 05/07/24 Team Status: Inactive Member Role/Relationship Status Dates Dr. George Vaughan MD Primary Care Provider Active Start: December 02, 2024 End: December 02, 2024 Dr. George Vaughan MD Referring Provider Active Start: December 02, 2024 End: December 02, 2024 LYN Richards Attending Provider Active S tart: December 02, 2024 End: December 02, 2024 Candy Spreader Helper Relationship Specialty Start Date End Date George Vaughan MD [address] [place], [place] [address]161 PCP - General Family Medicine 11/04/15 Flip Kramer MD [address] [facility] [address] [place], [place] [id number] Cardiology 04/29/21 Jalen Ibarra MD [address] [place] [address] 210 [place] [address] Urology 04/29/21 Dionisio Araiza [facility] [place] [address] Pain Management 04/29/21 Jaguar Osman DO [address] [facility] 2 [place] [phone] Orthopedics 04/29/21 Erik Guajardo MD [address] [facility] [place] [address] Pulmonary Disease 04/29/21 Zander Chavez APRN.FRONT DESK ADMIN [address] [place], [place] [id number] Steam Conditioning Operator Family Medicine 05/07/24 Team Status: Inactive Member Role/Relationship Status Dates Dr. George Vaughan MD Primary Care Provider Active Start: December 06, 2024 End: December 06, 2024 Dr. George Vaughan MD Referring Provider Active Start: December 06, 2024 End: December 06, 2024 Dr. Josue Seals , DO Attending Provider Active Start: December 06, 2024 End: December 06, 2024 Candy Spreader Helper Relationship Specialty Start Date End Date George Vaughan MD [address] [facility] [place] [address] PCP - General Family Medicine 11/04/15 Flip Kramer MD 176 [facility] 3[address] [place] [address] Cardiology 04/29/21 Jalen Ibarra MD [address] [place] [address] 210 [place] [address] Urology 04/29/21 Dionisio Araiza [place], [place] [id number] Pain Management 04/29/21 Jaguar Osman DO [address] [place] [address] [place] [phone] Orthopedics 04/29/21 Erik Guajardo MD [address] [facility] [place] [address] Pulmonary Disease 04/29/21 Zander Chavez APRN.FRONT DESK ADMIN [address] [facility] [place] [address] Steam Conditioning Operator Family Medicine 05/07/24 Candy Spreader Helper Relationship Specialty Start Date End Date George Vaughan MD [address] [facility] [place] [address] PCP - General Family Medicine 11/04/15 Flip Kramer MD [address] [facility] [address] [place] [address] Cardiology 04/29/21 Jalen Ibarra MD [address] [facility] [address] [place] [address] Urology 04/29/21 Dionisio [place] [address] Pain Management 04/29/21 Jaguar Osman DO [address] [facility] 2 [place] [phone] Orthopedics 04/29/21 Erik Guajardo MD 176 [facility] [place] [address] Pulmonary Disease 04/29/21 Zander Chavez APRN.FRONT DESK ADMIN [address] [place] [address] Steam Conditioning Operator Family Medicine 05/07/24 Candy Spreader Helper Relationship Specialty Start Date End Date George Vaughan MD [address] [place] [address] PCP - General Family Medicine 11/04/15 Flip Kramer MD [address] [facility] 3[address] [place] [address] Cardiology 04/29/21 Jalen Ibarra MD [address] [facility] [address] [place] [address] Urology 04/29/21 Dionisio Araiza [address] [facility] [address] Pain Management 04/29/21 Jaguar Osman DO [address] [place] [address] [place] [phone] Orthopedics 04/29/21 Erik Guajardo MD [address] [facility] [place] [address] Pulmonary Disease 04/29/21 Zander Chavez APRN.[facility] [address] [place], [place] [address] Steam Conditioning Operator Family Medicine 05/07/24 Team Status: Inactive Member Role/Relationship Status Dates Dr. George Vaughan MD Primary Care Provider Active Start: December 23, 2024 End: December 23, 2024 LYN Richards Attending Provider Active S tart: December 23, 2024 End: December 23, 2024 LYN Richards Referring Provider Active S tart: December 23, 2024 End: December 23, 2024 Candy Spreader Helper Relationship Specialty Start Date End Date George Vaughan MD [address] [place], [place] [address]131 PCP - General Family Medicine 11/04/15 Flip Kramer MD [address] [facility] [address] [place] [address] Cardiology 04/29/21 Jalen Ibarra MD [address] [place] [address] 210 [place] [address] Urology 04/29/21 Dionisio Araiza [address] [place] [address] Pain Management 04/29/21 Jaguar Osman DO [address] [facility] 2 [place] [phone] Orthopedics 04/29/21 Erik Guajardo MD [address] [facility] [place], [place] [address] Pulmonary Disease 04/29/21 Zander Chavez APRN.FRONT DESK ADMIN [address] [place], [place] [id number] Steam Conditioning Operator Family Medicine 05/07/24 Team Status: Inactive Member [...] Provider Active St art: January 10, 2025 Team Status: Inactive Member Role/Relationship Status Dates Dr. George Vaughan MD Primary Care Provider Active Start: January 27, 2025 End: January 27, 2025 Dr. Carlos Gaytan DO Emergency Provider Active Start: January 27, 2025 End: January 27, 2025 Candy Spreader Helper Relationship Specialty Start Date End Date George Vaughan MD [address] [place], [place] [id number] PCP - General Family Medicine 11/04/15 Flip Kramer MD [address] [facility] [address] [place] [address] Cardiology 04/29/21 Jalen Ibarra MD [address] [facility] [address] [place], [place] [address] Urology 04/29/21 Dionisio Araiza [address] [place] [address] Pain Management 04/29/21 Jaguar Osman DO [address] [facility] [place] [phone] Orthopedics 04/29/21 Erik Guajardo MD [address]61 [facility] [place] [address] Pulmonary Disease 04/29/21 Zander Chavez APRN.FRONT DESK ADMIN [address] [facility], [place] [id number] Steam Conditioning Operator Family Medicine 05/07/24 Team Status: Active Member Role/Relationship Status Dates Dr. George Vaughan MD Primary care physician Active Team Status: Inactive Member Role/Relationship Status Dates Dr. George Vaughan MD Primary care physician Active Start: November 13, 2024 End: November 13, 2024 Dr. Petr Perry DO Attending physician Active Start: November 13 End: November 13, 2024 Dr. Petr Perry DO Emergency Department Physician Active Start: November 13, 2024 End: November 13, 2024 Team Status: Inactive Member Role/Relationship Status Dates Dr. George Vaughan MD Primary care physician Active Start: November 29, 2024 End: November 29, 2024 Dr. George Vaughan MD Referring Provider Active Start: November 29, 2024 End: November 29, 2024 Harika Church NP BEAD WRAPPER-C Attending physician Active Start: November 29, 2024 End: November 29, 2024 Team Status: Inactive Member Role/Relationship Status Dates Dr. George Vaughan MD Primary care physician Active Start: December 02, 2024 End: December 02, 2024 Dr. George Vaughan MD Referring Provider Active Start: December 02, 2024 End: December 02, 2024 MILES RichardsC Attending physician Active Start: December 02, 2024 End: December 02, 2024 Team Status: Inactive Member Role/Relationship Status Dates Dr. George Vaughan MD Primary care physician Active Start: December 06, 2024 End: December 06, 2024 Dr. George Vaughan MD Referring Provider Active Start: December 06, 2024 End: December 06, 2024 Dr. Josue Seals DO Attending physician Active Start: December 06, 2024 End: December 06, 2024 Team Status: Inactive Member Role/Relationship Status Dates Dr. George Vaughan MD Primary care physician Active Start: December 23, 2024 End: December 23, 2024 MILES RichardsC Attending physician Active Start: December 23, 2024 End: December 23, 2024 LYN Richards Referring Provider Active S tart: December 23, 2024 End: December 23, 2024 Team Status: Inactive Member Role/Relationship Status Dates Dr. George Vaughan MD Primary care physician Active Start: January 10, 2025 End: January 10, 2025 Dr. George Vaughan MD Referring Provider Active Start: January 10, 2025 End: January 10, 2025 Dr. Josue Seals DO Attending physician Active Start: January 10, 2025 End: January 10, 2025 Team Status: Active Member Role/Relationship Status Dates Dr. George Vaughan MD Primary care physician Active Start: January 10, 2025 Dr. George Vaughan MD Referring Provider Active Start: January 10, 2025 Dr. Josue Seals DO Attending physician Active Start: January 10, 2025 Dr. Josue Seals DO Nurse Practitioner Active Start: January 10, 2025 Team Status: Inactive Member Role/Relationship Status Dates Dr. George Vaughan MD Primary care physician Active Start: January 27, 2025 End: January 27, 2025 Dr. Carlos Gaytan DO Attending physician Active Start: January 27, 2025 End: January 27, 2025 Dr. Carlos Gaytan DO Emergency Departme nt Physician Active Start: January 27, 2025 End: January 27, 2025 Team Status: Inactive Member Role/Relationship Status Dates Dr. George Vaughan MD Primary care physician Active Start: February 11, 2025 End: February 11, 2025 Dr. George Vaughan MD Referring Provider Active Start: February 11, 2025 End: February 11, 2025 BRIE Meidna Attending physician Active Start: February 11, 2025 End: February 11, 2025 Goals (unrecognized section and content) Goals [...] section and content) DATE CREATED AUTHOR 12/14/2024 [facility] DATE CREATED AUTHOR AUTHOR'S ORGANIZ ATION 02/12/2025 [facility] DATE CREATED AUTHOR AUTHOR'S ORGANIZ ATION 04/01/2025 [facility] FOR RECORDS PERTAINING TO PATIENTS WHO [...] BE BASED ON THE PRIMARY CLINICAL RECORDS. [facility]. provides no warranty or guarantee of the accuracy or completeness of information in this document.
== END | disposition home or self-care (01) ==
LOC: CVS 06:43
PROVIDERS: Referring Provider Student in an Organized Health Care Education/Training Program; Visit Provider Student in an Organized Health Care Education/Training Program
DX: R42 Dizziness and giddiness (principal); R06.02 Shortness of breath
CPT/HCPCS: 93306; 93880

== ENCOUNTER → 2025-05-07 | Outpatient (CLI) | payer MEDICARE, OTHER, SELFPAY ==
[2025-05-07 12:55] LABS: Anion Gap 10 (5-15); BUN 17 mg/dL (4-19); BUN/Creat Ratio 15.0 RATIO (10-20); Calcium,Total 9.4 mg/dL (7.6-11.0); Carbon Dioxide 24.7 mmol/L (21.0-32.0); Chloride 101 mmol/L (98-108); Glucose 104 mg/dL (70-99); Potassium 4.2 mmol/L (3.3-5.1)
== END | disposition home or self-care (01) ==
LOC: LAB 11:41
PROVIDERS: Referring Provider Student in an Organized Health Care Education/Training Program; Visit Provider Student in an Organized Health Care Education/Training Program
DX: I10 Essential (primary) hypertension (principal)
CPT/HCPCS: 36415; 80048